=== PATIENT | female | born 1995 | race Caucasian/White ===

== ENCOUNTER 2024-05-18 14:23 | Emergency (ER) | payer MEDICAID, SELFPAY ==
[2024-05-18 14:37] VITALS: BP 118/83; PULSE 91; RESP 20; TEMP 36.3; O2SAT 100; BMI 40.3
--- NOTE | 2024-05-18 15:28 | CRLHL7_ITS ---
For Patients: As a result of the Century Cures Act, medical imaging exams and procedure reports are released immediately into your electronic medical record. You may view this report before your referring provider. If you have questions, please contact your health care provider. INDICATION: Right upper quadrant abdomen pain. TECHNIQUE: Ultrasound abdomen limited. Sonographic images of the right upper quadrant were obtained using abdullahi-scale and color Doppler images. COMPARISON: None. FINDINGS: Examination is moderately to severely limited due to extensive bowel gas. Liver: The visualized component of the liver is hyperechoic. Gallbladder: No stones or sludge. Normal wall thickness. No pericholecystic fluid. Common bile duct: 4 mm. Pancreas: Not well visualized. Right kidney: Normal in size. No hydronephrosis. IMPRESSION: No evidence of acute cholecystitis. Hyperechoic hepatic parenchyma, suggestive of diffuse hepatocellular disease, most commonly steatosis. The remainder of the right upper quadrant is relatively poorly visualized due to extensive bowel gas. Dictated by Rajat Lora MD @ 05/18/2024 5:08:15 PM (Electronically Signed)
--- NOTE | 2024-05-18 15:30 | ED.ABDPAIN ---
HPI - Abdominal Pain General Chief Complaint: Abdominal Pain Stated Complaint: vomiting, gall bladder issue Time Seen by Provider: 05/18/24 14:34 History of Present Illness HPI narrative: This 29-year-old female comes in because of abdominal pain across her abdomen and radiating around to her right flank region. She states that she is working with [facility] regarding her gallbladder but called them today stating that she has been having diarrhea with occasions of some blood in the diarrhea. She is instructed to go to the nearest emergency department. She went to [facility] and had a CT scan and labs done there. She received IV doses of Dilaudid, Benadryl, and a proton pump inhibitor. She was sent home and has plans for colonoscopy. She comes in here immediately after being discharged stating that they really did not do anything. She did bring records from her visit that shows that she did receive a rather thorough workup. She does have a history of gastric bypass. She states that she has not had an ultrasound of her gallbladder. Related Data Home Medications ?Medication ?Instructions ?Recorded ?Confirmed albuterol 90 mcg/actuation aerosol mcg inhalation 05/18/24 inhaler doxycycline monohydrate 100 mg 100 mg PO DAILY 05/18/24 05/18/24 capsule ferrous sulfate 325 mg (65 mg 325 mg PO DAILY 05/18/24 05/18/24 iron) tablet (Feosol) pantoprazole 40 mg tablet,delayed 40 mg PO DAILY 05/18/24 05/18/24 release (Protonix) potassium 99 mg tablet mg 05/18/24 tirzepatide (weight loss) 7.5 7.5 mg subcut QWEEK 05/18/24 05/18/24 mg/0.5 mL subcutaneous pen injector (Zepbound) Previous Rx's ?Medication ?Instructions ?Recorded ondansetron HCl 4 mg tablet 4 mg PO Q6H #12 tabs 05/18/24 oxycodone 5 mg capsule 5 mg PO Q6H PRN pain #12 caps 05/18/24 simethicone 125 mg capsule 125 mg PO BID-QID PRN abdominal 05/18/24 distention #20 caps Allergies Allergy/AdvReac Type Severity Reaction Status Date / Time azithromycin Allergy Unknown Verified 05/18/24 14:46 hydrocodone Allergy Unknown Verified 05/18/24 14:46 tramadol Allergy Unknown Verified 05/18/24 14:46 Review of Systems Status of ROS Reports: 10 or more systems reviewed and unremarkable except as noted in History and below Narrative Constitutional: No fevers, no weight gain or loss. Eyes: No discharge. No vision changes. HENT: No congestion, no sore throat, no ear pain. Cardiovascular: No chest pain, no palpitations. Respiratory: No shortness of breath, no wheezes, no cough. Gastrointestinal: Abdominal pain with vomiting and diarrhea. Genitourinary: No dysuria, no hematuria. Musculoskeletal: Normal range of motion. Skin: No rashes, no pruritis. Neurological: No dizziness, weakness, sensory change, speech change. Endo/Heme/Allergies: No bruising or bleeding. No polydipsia. Pysch: no suicidality, no anxiety, no insomnia. All other systems reviewed and are negative. PFSH PFS Social History Smoking Status: Current every day smoker Do you use any of these nicotine containing products: Vaping Products How often do you have a drink containing alcohol: never AUDIT-C Alcohol total score: 0 Non-prescribed substance use: denies use Exam Narrative: Exam Narrative: Constitutional: Well-developed, well-nourished, no acute distress. HEENT: Normocephalic, atraumatic. Neck: Normal range of motion. Nontender. Supple. Heart: Regular. No murmurs. Normal rate. Intact distal pulses. Lungs: Clear to auscultation. No chest discomfort. No wheezes, rhonchi, or rales. Abdomen: Normal bowel sounds. Diffuse tenderness across her abdomen with notable tenderness in the area of her gallbladder in the right upper quadrant. No rebound tenderness. Genitalia: Deferred. Back: No midline tenderness. Normal range of motion. Extremities: Normal range of motion. No injury. Skin: Intact. No rash. Warm. No erythema or pallor. Neurologic: No altered sensation. No weakness. Alert and oriented. Psychiatric: No suicidality. No anxiety or depression. No insomnia. Nursing notes and vitals signs are reviewed. Const: Vital Signs, click to edit/add: Vital Signs - 24 hr 05/18/24 14:37 05/18/24 16:58 Temperature 97.4 F L Pulse Rate [Pulse Oximeter] 91 74 Respiratory Rate 20 18 Blood Pressure [Ri ght Upper Arm] 118/83 132/89 Pulse Oximetry 100 Oxygen Delivery Me thod Room Air Course Vital Signs Vital signs: Initial Vital Signs Temperature 97.4 F L 05/18/24 14:37 Temperature Source Temporal Artery Scan 05/18/24 14:37 Pulse Rate 91 05/18/24 14:37 Respiratory Rate 20 05/18/24 14:37 Blood Pressure 118/83 05/18/24 14:37 Blood Pressure Mean 94 05/18/24 14:37 Blood Pressure Position Sitting 05/18/24 14:37 Pulse Oximetry 100 05/18/24 14:37 Oxygen Delivery Method Room Air 05/18/24 14:37 Vital Signs Temperature 97.4 F L 05/18/24 14:37 Pulse Rate 91 05/18/24 14:37 Respiratory Rate 20 05/18/24 14:37 Blood Pressure 118/83 05/18/24 14:37 Pulse Oximetry 100 05/18/24 14:37 Oxygen Delivery Method Room Air 05/18/24 14:37 Temperature 97.4 F L 05/18/24 14:37 Pulse Rate 74 05/18/24 16:58 Respiratory Rate 18 05/18/24 16:58 Blood Pressure 132/89 05/18/24 16:58 Pulse Oximetry 100 05/18/24 14:37 Oxygen Delivery Method Room Air 05/18/24 14:37 Medications Administered Medications: Discontinued Medications Generic Name Dose Route Start Last Admin Trade Name García PRN Reason Stop Dose Admin Morphine Sulfate 10 mg 05/18/24 15:28 05/18/24 16:00 Morphine 10 Mg/Ml Inj IM 05/18/24 15:29 10 mg ONCE ONE Administration MDM - Abdominal Pain MDM Narrative Medical decision making narrative: This patient reports abdominal pain as described above. She did have a rather thorough workup at [facility] just prior to arrival here. I did review those records and they returned with reassuring findings. She states that there is some suspicion about her gallbladder and she actually has not had an ultrasound of her gallbladder so this was obtained here today. Her gallbladder was difficult to visualize by the pharmacy technician infusion as there was lots of gas in her bowels. She also is significantly obese. Nevertheless the gallbladder does appear normal. The patient did receive a 1 time intramuscular injection of morphine for pain relief and this is helped her significantly. She has a history of a gastric bypass and cannot use NSAID is a. She does not normally take pain medicine and uses Tylenol if needed. She is reporting some yellow or orange colored diarrhea and there are occasions of some blood present. She had a colonoscopy when she was in her grade school years because her mother was diagnosed with colon cancer at age 33. He she states that her mother sisters of also had colon cancer at early age. This patient needs a colonoscopy of course and does have an appointment but it is scheduled about a month from now. She is interested in a sooner study if available. She is okay to be discharged home and did received prescriptions for Zofran, simethicone, and a few tablets of oxycodone. Discharge Plan Discharge Clinical Impression: Abdominal pain Patient Disposition: Home w/ Parent or Adult Condition: Improved Instructions: Abdominal Pain (ED) Additional Instructions: Take medication as prescribed and needed. Follow-up with primary physician for ongoing management of symptoms. A colonoscopy is essential to be done for further evaluation. Call [phone] for appointment. Return if worsening. Prescriptions: New simethicone 125 mg capsule 125 mg PO BID-QID PRN (Reason: abdominal distention) Qty: 20 0RF ondansetron HCl 4 mg tablet 4 mg PO Q6H Qty: 12 0RF oxycodone 5 mg capsule 5 mg PO Q6H PRN (Reason: pain) Qty: 12 0RF No Action albuterol 90 mcg/actuation aerosol inhalation doxycycline monohydrate 100 mg capsule 100 mg PO DAILY ferrous sulfate [Feosol] 325 mg (65 mg iron) tablet 325 mg PO DAILY pantoprazole [Protonix] 40 mg tablet,delayed release (DR/EC) 40 mg PO DAILY potassium 99 mg tablet Zepbound 7.5 mg/0.5 mL pen injector 7.5 mg subcut QWEEK Follow Up/Referrals: Provider,Not a Local [Primary Care Provider] - Stand Alone Forms: [employer] Info Instructions
[2024-05-18] MEDS: MORPHINE 10 MG/ML inj IM (16:00)
[2024-05-18 16:58] VITALS: BP 132/89; PULSE 74; RESP 18
== END 2024-05-18 17:00 | disposition home or self-care (01) ==
PROVIDERS: Emergency Provider Emergency Medicine Emergency Medical Services
DX: R10.11 Right upper quadrant pain (principal)
CPT/HCPCS: 76705; 96372; 99284; J2270

== ENCOUNTER 2025-05-27 15:16 | Emergency (ER) | payer BC, SELFPAY ==
[2025-05-27] VITALS (14 sets, daily range): BP systolic 126–139; BP diastolic 88–101; PULSE 104–128; RESP 16–20; TEMP 36.4; O2SAT 96–99; BMI 38.2
--- OUTSIDE RECORDS SUMMARY | 2025-05-27 15:19 | XMS_ITS | CCD ---
Author Name Interface, [id number] lity Address [address] [place] [id number] [facility] Oncology Address [facility] [address] [address] Care Team Providers Care Straightening Roll Operator Name Role Phone Forest MASON, Enzo Unavailable Unavailable Allergies and Adverse Reactions Reason for Visit Medications Problems Social History
--- OUTSIDE RECORDS SUMMARY | 2025-05-27 15:19 | XMS_ITS | Clinical Summary ---
Author Organization [facility] Address [address] [place] [address] Care Team Providers Care Golf Sales Manager Name Role Phone Elsewhere, Pcp Primary Care Provider Unavailabl e Source Comments Patient records contain information from all sites at [facility]. For routine questions regarding patient records, call [phone] during business hours, M-F 8:00 AM - 5:00 PM Central Time. Record requests for emergency care only can be directed to [phone] at any time.[facility] Allergies Active Allergy Reactions Criticality Noted Date Comments Azithromycin Rash,Hives (Reselect Reaction),Swelling Medium 01/31/2016 Nsaids (Non-Steroidal Anti-Inflammatory Drug) Other (see comments) Low 11/25/2016 Patient had bariatric surgery and should not ever have NSAIDs due to high risk for gastric ulcers. Penicillins Rash 01/13/2014 PENICILLINS Sulfa (Sulfonamide Antibiotics) Rash 01/31/2016 Not sure of reaction but was in the hospital because of it. Tramadol Rash Medium 05/07/2023 Medications albuterol (ProAir HFA) 90 mcg/actuation inhaler Inhale 2 puffs every 4 (four) hours as needed. Active brimonidine 0.33 % gel with pump Apply topically. 3 Active calcium carbonate 1,250 mg (500 mg calcium) chewable tablet Chew 500 mg 3 (three) times a day as needed for indigestion or heartburn. Active cyanocobalamin (Vitamin B-12) 1,000 mcg tablet Take 1 tablet by mouth daily. Active pantoprazole (Protonix) 40 mg EC tablet Take 1 tablet by mouth daily. 4 Active multivitamin tablet Take 1 tablet by mouth daily. Active ferrous sulfate 325 mg (65 mg iron) DR tablet Take 325 mg by mouth 3 (three) times a day. Active ivermectin (Soolantra) 1 % cream creamIndication s:Rosacea Apply 1 Application topically daily. Apply to the entire face. 45 g 5 4 Active fondaparinux (Arixtra) 10 mg/0.8 mL injection Inject 0.8 mL (10 mg total) under the skin daily. 24 mL 4 Active acetaminophen (TylenoL) 500 mg tablet Take 2 tablets (1,000 mg total) by mouth every 6 (six) hours. 4 Active folic acid (Folvite) 5 mg/mL injection Inject 0.2 mL (1 mg total) under the skin daily for 2 days. 0.4 mL 4 Active prochlorperazin e (Compazine) 5 mg tablet Take 1 tablet (5 mg total) by mouth every 6 (six) hours as needed for nausea or vomiting. 30 tablet 07/04/2024 8:10 PM CDT 4 Active folic acid 1 mg tablet Take 2 tablets (2 mg total) by mouth daily. 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 No 07/03/2024 Humiliation, Afraid, Rape, and Kick questionnair e Answer Date Recorded Within the last year, have y ou been afraid of your partner or ex-partner? No 07/03/2024 Within the last year, have y ou been humiliated or emotionally abused in other ways by your partner or ex-partner? No Within the last year, have y ou been kicked, hit, slapped, or otherwise physically hurt by your partner or ex-partner? No 07/03/2024 Within the last year, have y ou been raped or forced to have any kind of sexual activity by your partner or ex-partner? No 07/03/2024 Hunger Vital Sign Answer Date Recorded Within the past 12 months, y ou worried that your food would run out before you got the money to buy more. Never true 07/03/20 24 Within the past 12 months, t he food you bought just didn't last and you didn't have money to get more. Never true 07/03/2024 PRAPARE - Transportation Answer Date Re corded In the past 12 months, has l ack of transportation kept you from medical appointments or from getting medications? No 06/18 In the past 12 months, has l ack of transportation kept you from meetings, work, or from getting things needed for daily living? No 07/03/2024 Housing Stability Answer Date Recorded What is your living situation today? 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 CLERK Gender Identity Not on file Sexual Orientation Not on file Last Filed Vital Signs Vital Sign Reading Time Taken Comments Blood Pressure 134/86 10/12/2024 1:[address] OPERATIONS CLERK Pulse 80 10/12/2024 1:[address] OPERATIONS CLERK Temperature 36.9 C (98.4 F) 07/04/2024 3:46 PM CDT Respiratory Rate 16 07/04/2024 3:46 PM CDT Oxygen Saturation 98% 07/04/2024 3:46 PM CDT Inhaled Oxygen Concentration - - Weight 122 kg (268 lb 1.3 oz) 10/12/2024 1:[address] OPERATIONS CLERK Height 176.1 cm (5' 9.33) 10/12/2024 1:26 PM CS T Body Mass Index 39.21 10/12/2024 1:[address] OPERATIONS CLERK Plan of Treatment Health Maintenance Due Date Last Done Comments HIV Screening 1994 Hepatitis C Screening 1994 Tobacco Cessation counseling 1994 Hepatitis B Vaccines (3 of 3 - 3-dose series) 12/09/2006 10/14/2006, 06/09/2006 HPV Vaccines (3 - 3-dose series) 12/09/2012 08/31/2012, 06/08/2012 Cervical/Vaginal Cancer Screening 12/20/2023 12/19/2020, 08/08/2010 COVID-19 Vaccine ( season) 2024 12/26/2021, 06/26/2021, 05/27/2021 Depression Screening (Annual PHQ-2) 10/18/2024 Influenza Vaccine (#1) 2025 07/20/2019, 2018 DTaP,Tdap,and Td Vaccines (6 - Td or Tdap) 05/14/2031 05/14/2021, 05/25/2019, 09/28/2016, Additional history exists IPV Vaccines Completed 02/26/1999, 02/15, 11/12/1995, Additional history exists Pneumococcal vaccine (0-49 years) Aged Out No longer eligible based on patient's age to complete this topic Insurance [facility] Advance Directives For more information, please contact: [phone] * Full Code (Latest Code Status on File) Date Activated Date Inactivated Comments 07/01/2024 2:27 AM 07/04/2024 10:47 PM Question Answer Comments Full Code: Discussed Care Teams Golf Sales Manager Relationship Specialty Start Date End Date Elsewhere, Pcp PCP - General Internal Medicine 04/12/24
--- OUTSIDE RECORDS SUMMARY | 2025-05-27 15:19 | XMS_ITS | Clinical Summary ---
Author Organization [facility] Address [address] [facility] [place] [address] Care Team Providers Care Algebra Teacher Name Role Phone Mariluz Diamond MD Primary Care Provider Unavailab le Source Comments You are receiving this document as you are listed as the primary care provider,follow-up provider, or the patient has been referred to you for consultation.This is in compliance with the Medicare and[facility] EHR Incentive Program,which states Providers who transition their patient to another setting of careor provider of care or refers their patient to another provider of care shouldprovide summary care record for each transition of care or referral. [facility] Allergies Active Allergy Reactions Criticality Noted Date Comments Azithromycin Rash 01/05/2019 Hydromorphone Anxiety 10/19/2016 Nsaids Other, see comments 11/25/2016 Patient had bariatric surgery and should not ever have NSAIDs due to high risk for gastric ulcers. Medications Docosahexaenoic Acid ( DHA OR) Active calcium carbonate (TUMS) 500 MG chewable tablet Chew and swallow 500 mg by mouth daily. Active cyanocobalamin (VITAMIN B12) 1000 MCG tablet Take 1,200 mcg by mouth daily. Active potassium phosphate monobasic (K-PHOSORIGINAL) 500 MG tablet Take 800 mg by mouth daily. Active docusate sodium (COLACE) 100 MG capsuleIndication s:Constipation, unspecified constipation type Take 1 Capsule by mouth two times a day. 30 Capsule 1 1 Active amoxicillin-clavu lanate (AUGMENTIN) 875-125 mg per tabletIndications :Fever, unspecified fever cause,Headache, unspecified headache type,Fatigue, unspecified type Take 1 Tablet by mouth two times a day. 20 Tablet 1 Active sennosides-docusa te sodium (SENOKOT S) 8.6-50 MG per tabletIndications :Drug-induced constipation Take 1 Tablet by mouth two times daily as needed for Constipation . 50 Tablet 1 1 Active acetaminophen (TYLENOL) 325 MG tablet Take 650 mg by mouth. Active sertraline (ZOLOFT) 50 MG tabletIndications :Maternal mental disorder, antepartum Take 1 Tablet by mouth daily. 30 Tablet 3 1 Active Active Problems Problem Noted Date Diagnosed Date Intermittent fever 04/03/2021 Grief 04/03/2021 Constipation 04/03/2021 Dizzy spells 02/11/2021 Supervision of high risk , antepartum 0 01/15/2021 Previous gastric bypass affe cting in first trimester, antepartum 12/19/2020 Obesity complicating pregnan cy, childbirth, or puerperium, antepartum 12/19/2020 Class 1 obesity due to exces s calories with body mass index (BMI) of 34.0 to 34.9 in adult 12/19/2020 Maternal mental disorder, antepartum 12/19/2020 History of iron deficiency anemia 12/19/2020 Electronic cigarette use 12/19/2020 Need for hepatitis B vaccination 12/12/2018 Cervical cancer screening 11/14/2018 Overview (12/27/2020): 11/14/2018 LSIL. Plan: Pap due 10/2019 [facility] review: 05/2016: NILM 10/2018: LSIL (age 23) 12/2020: NILM Plan per ASCCP guidelines: repeat cytology in 12 months (12/2021) Abnormal Pap smear of cervix 10/18/2018 Overview (12/19/2020): [facility] H/O gastric bypass Obesity (BMI 30-39.9) Gastric reflux Headache Restless leg Metabolic syndrome Sleep apnea Overview (12/19/2020): 2015 Resolved Problems Problem Noted Date Diagnosed Date Resolved Date Careplan: [facility] 04/07/2021 08/05/2021 Overview (04/07/2021): This patient is enrolled in the Healthy Beginnings Program. The program provides patients with support, education, referrals and resources during their . Reason for enrollment: Psychosocial support and mental health resources as needed For more information, please contact Iwona Cordero, Healthy Beginnings Specialist, at [phone]. 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 Overview (12/01/2018): January 2009 with abdominal pain Immunizations Immunization Administration Dates Next Due 4vHPV (Gardasil) 08/31/2012,06/08/2012 DTP 02/26/1999 HepB Ped/Adol (0-18 yrs) 10/14/2006,06/09/2006 Influenza IIV4 (Quadrivalent ) 0.5mL ([id number]) 07/20/2019,12/01/2018 Influenza, Unspecified Formulation 07/20/2019 MMR 02/26/1999,11/12/1995 OPV, Trivalent (Orimune or tOPV) 02/26/1999 Pfizer Monovalent 12+ 12/26/2021 Pfizer Monovalent 12+ Purple Top 06/26/2021,05/18 Polio, Unspecified Formulation 9,11/12/1995,1994,1993 Td 06/09/2006 Tdap 05/14/2021,09/28/2016,06/09/2006 Varicella 06/09/2006 Family History Medical History Relation Name Comments No Known Problems Father No Known Problems Mother Cancer, Colon Maternal Grandmother Arrhythmia Paternal Grandfather Diabetes, Type II Paternal Grandmother No Known Problems Sister 1 No Known Problems Sister 2 Relation Name Status Comments Father Alive Mother Alive Maternal Grandfather Alive Maternal Grandmother Paternal Grandfather Paternal Grandmother Alive Sister 1 Alive Sister 2 Alive Social History Tobacco Use Types Packs/Day Years Used Date Smoking Tobacco: Former Cigarettes Smokeless Tobacco: Never Tobacco Cessation:Ready to Q uit: Yes; Counseling Given: Yes Alcohol Use Standard Drinks/Week Comments Not Currently 0 (1 standard drink = 0.6 oz pur e alcohol) PHQ-2 Answer Date Recorded PHQ-2 Score 0 02/11/2019 Depression Answer Date Recor ded Last EPDS Total Score 8 11/25/2024 Last EPDS Self Harm Result Not on file 11/25 Comments No Sex and Gender Information Value Date Recorded Sex Assigned at Not on file Legal Sex Female 5:07 AM CDT Gender Identity Not on file Sexual Orientation Not on file 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 Not on file Not on file Not on f ile Last Filed Vital Signs Vital Sign Reading Time Taken Comments Blood Pressure 100/60 07/08/2021 8:59 AM CDT Pulse 106 07/01/2021 2:09 PM CDT Temperature 36.8 C (98.2 F) 04/04/2021 8:11 AM CDT Respiratory Rate 16 04/04/2021 8:11 AM CDT Oxygen Saturation 100% 04/03/2021 1:13 PM CDT Inhaled Oxygen Concentration - - Weight 110.2 kg (243 lb) 07/01/2021 2:09 PM CDT Height 175.3 cm (5' 9) 04/04/2021 8:11 AM CDT Body Mass Index 35.88 04/04/2021 8:11 AM CDT Plan of Treatment Health Maintenance Due Date Last Done Comments HepB Vaccine (3) 12/09/2006 10/14/2006, 06/09/2006 Adult Preventive Visit 2012 HPV Vaccine (3 - 3-dose series) 12/09/2012 08/31/2012, 06/08/2012 Cervical Cancer Screening 12/19/20212020, 11/14/2018 (Completed) COVID-19 Vaccine ( season) 2024 12/26/2021, 06/26/2021, 05/27/2021 Influenza Vaccine (#1) 2025 9, 07/20/2019, 12/01/2018 DTaP/Tdap/Td Vaccine (5 - Tdap) 05/14/2031 05/14/2021, 09/28/2016, 06/09/2006, Additional history exists Zoster/Shingles Vaccine (1 of 2) 2044 IPV (Polio) Vaccine Completed 02/26/1999, 02/26/1999, 11/12/1995, Additional history exists HIV Screening (Preventive Services) Completed 12/19/2020, 12/01/2018 Hep C Screening (Preventive Services) Completed 05/22/2021 HepA Vaccine Aged Out No longer eligi ble based on patient's age to complete this topic Hib Vaccine Aged Out No longer eligi ble based on patient's age to complete this topic MCV4 Vaccine Aged Out No longer eligi ble based on patient's age to complete this topic Meningococcal B Vaccine Aged Out No l onger eligible based on patient's age to complete this topic Pneumococcal Vaccine Aged Out No long er eligible based on patient's age to complete this topic Procedures Procedure Name Priority Date/Time Associated Diagnosis Comments HEPATITIS C ANTIBODY, WITH REFLEX (ANTI-HCV) Routine 05/22/2021 2:15 PM CDT Supervision of high risk , antepartum HIV 1/2 AG/AB 4TH GEN Routine 12/19/2020 9:24 AM PRECISION FILER HAND Screening examination for venereal disease CYTOLOGY (PAP) Routine 12/19/2020 9:23 AM PRECISION FILER HAND Screening for malignant neoplasm of cervix from Last 3 Months or Most Recently Relevant to Health Maintenance Results * Hepatitis C Antibody, with Reflex (05/22/2021 2:15 PM CDT) Hepatitis C Antibody Negative (Non Reactive) Negative (Non Reactive) 05/22/2021 7:29 PM CDT [facility] Comment:Antibodies to HCV no t detected. Does not exclude the possiblity of exposure to HCV. Blood Venipuncture / Unknown 05/22/2021 2:15 PM CDT 05/22/2021 2:15 PM CDT us Olivia Galvan MD LAB_1 Final Result [facility] [address] * HIV 1/2 Ag/Ab 4th Generation (12/19/2020 9:24 AM PRECISION FILER HAND) HIV 1/2 Antigen/Antib chad (4th generation) Negative (Non Reactive) Negative (Non Reactive) 12/19/2020 1:00 PM PRECISION FILER HAND [facility] Comment:HIV-1 p24 Antigen an d HIV-1/HIV-2 Antibody not detected Blood Venipuncture / Unknown 12/19/2020 9:24 AM PRECISION FILER HAND 12/19/2020 9:24 AM PRECISION FILER HAND us Xochitl Beard APRN, HALLIE LAB_1 Final R esult [facility] [address] * PAP Test (12/19/2020 9:23 AM PRECISION FILER HAND) Case Report Pap Case: [id number] Authorizing Provider: Xochitl Beard APRN, CNP Collected: 12/19/2020 0923 Ordering Location: [facility] Received: 12/19/2020 0939 Services-CASE MONITOR First Screen: Mariluz Loza CT (ASCP) Specimen: Pap Test, Diagnostic, Cervix/Endocervix 12/23/2020 4:03 PM PRECISION FILER HAND [facility] Pap Specimen Adequacy Satisfactory for evaluation, endocervical/simental sformation zone component present. 12/23/2020 4:03 PM PRECISION FILER HAND [facility] Pap Interpretation Negative for intraepithelial lesion or malignancy (NILM). 12/23/2020 4:03 PM PRECISION FILER HAND [facility] at [address]3 PRECISION FILER HAND Pap Disclaimer The Pap test is a screening test designed to aid in the detection of cervical cancer and its precursor lesions. It is not a diagnostic procedure and should not be used as the sole means of detecting cervical cancer. Both false-positive and false-negative results may occur. 12/23/2020 4:03 PM PRECISION FILER HAND [facility] Gross Description The specimen is received in SurePath fixative and properly labeled. 1 Pap-stained SurePath slide is prepared. 12/23/2020 4:03 PM PRECISION FILER HAND [facility] Embedded Images 4:03 PM PRECISION FILER HAND [facility] Other Specimen Type ENTIRE ENDOCERVIX / Unknown 12/19/2020 9:23 AM PRECISION FILER HAND 12/19/2020 9:39 AM PRECISION FILER HAND Comment:LMP: Patient's last menstrual period was 10/23/2020 (exact date). Xochitl Beard APRN, STEWARD/ST[facility]ARD[facility] PATHOLOGY Final R esult [facility] [address] [place] [address], [facility] from Last 3 Months or Most Recently Relevant to Health Maintenance Insurance [facility] Care Teams Algebra Teacher Relationship Specialty Start Date End Date Mariluz Diamond MD PCP - General Family Practice 11/25/18
--- OUTSIDE RECORDS SUMMARY | 2025-05-27 15:19 | XMS_ITS | Encounter Summary ---
Author Organization [facility] Address [address] [place] [address] Care Team Providers Care Writer Producer Name Role Phone Sarah Juares MD Primary Care Provider [phone] Purvi Jeong [facility] Unavailable [phone] Lucas Nuno MD Unavailable [phone] Meghan Cox [facility] Unavailable [phone] Encounter Details Date Type Department Care Team (Late st Contact Info) Description 03/19/2025 MyC Medical Advice [facility] [place] [address] [facility] [address]th [place] [address] Lucas Nuno MD [address] [facility] [address] [place] [address] Social History Tobacco Use Types Packs/Day Years Used Date Smoking Tobacco: Former Smokeless Tobacco: Never Alcohol Use Standard Drinks/Week Comments Not Currently 0 (1 standard drink = 0.6 oz pur e alcohol) rare PHQ-2 Answer Date Recorded PHQ-2 Score 0 02/22/2025 Quinn Depression Scale Answer Date Recorded Quinn Depression Score 1 07/06/2021 Last EPDS Self Harm Result Not on file 07/06 Adolescent Education Answer Date Record ed Getting School Help Needed Not on file 07/10 Food Insecurity Answer Date Recorded Within the past 12 months, d id you worry that your food would run out before you got money to buy more? No 03/21/2025 Within the past 12 months, d id the food you bought just not last and you didn t have money to get more? No 03/21/2025 Housing Stability Answer Date Recorded Do you have housing? (Mariano monahan is defined as stable permanent housing and does not include staying outside in a car, in a tent, in an abandoned building, in an overnight usp, or couch-surfing.) Yes 03/21/2025 Are you worried about losing your housing? No 03/21/2025 Financial Resource Strain Answer Date R ecorded Within the past 12 months, h ave you or your family members you live with been unable to get utilities (heat, electricity) when it was really needed? No 03/21/2025 Transportation Needs Answer Date Record ed Within the past 12 months, h as lack of transportation kept you from medical appointments, getting your medicines, non-medical meetings or appointments, work, or from getting things that you need? No 03/21/2025 Interpersonal Safety Answer Date Record ed Do you feel physically and e motionally safe where you currently live? Yes 03/22/2025 Within the past 12 months, h ave you been hit, slapped, kicked or otherwise physically hurt by someone? No 03/22/2025 Within the past 12 months, h ave you been humiliated or emotionally abused in other ways by your partner or ex-partner? 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 Gender Identity Female 06/03/2022 7:36 AM CDT Sexual Orientation Straight 06/03/2022 7: 36 AM CDT documented as of this encounter Plan of Treatment Not on file documented as of this encounter Visit Diagnoses Not on filedocumented in this encounter Care Teams Writer Producer Relationship Specialty [place] [address] [place] [address] PCP - General Family Medicine 03/13/25 Purvi Jeong RPH [address] [place] [address] [phone] Pharmacist Pharmacist Holistic Health Practitioner 01/03/25 Lucas Nuno MD [address] [place] [address] [phone] Assigned Surgical Provider 02/07/25 Meghan Cox RPH [address] [place] [address] [phone] Pharmacist Pharmacist Holistic Health Practitioner 03/20/25 documented as of this encounter
--- OUTSIDE RECORDS SUMMARY | 2025-05-27 15:19 | XMS_ITS | Encounter Summary ---
Author Organization [facility] Address [address] [facility] [place] [address] Care Team Providers Care Coffee Break Attendant Name Role Phone Sarah Juares MD Primary Care Provider [phone] Purvi Jeong [facility] Unavailable [phone] Lucas Nuno MD Unavailable [phone] Meghan Cox [facility] Unavailable [phone] Encounter Details Date Type Department Care Team (Late st Contact Info) Description 03/14/2025 MyC Medical Advice [facility] General Surgery [facility] [place] [address] [facility] [address]th [place] [address] Lucas Nuno MD [address] [facility] [address] [place] [address] Social History Tobacco Use Types Packs/Day Years Used Date Smoking Tobacco: Former Smokeless Tobacco: Never Alcohol Use Standard Drinks/Week Comments Not Currently 0 (1 standard drink = 0.6 oz pur e alcohol) rare PHQ-2 Answer Date Recorded PHQ-2 Score 0 02/22/2025 Purdin Depression Scale Answer Date Recorded Purdin Depression Score 1 07/06/2021 Last EPDS Self Harm Result Not on file 07/06 Adolescent Education Answer Date Record ed Getting School Help Needed Not on file 07/10 Interpersonal Safety Answer Date Record ed Do you feel physically and e motionally safe where you currently live? Yes 03/13/2025 Within the past 12 months, h ave you been hit, slapped, kicked or otherwise physically hurt by someone? No 03/13/2025 Within the past 12 months, h ave you been humiliated or emotionally abused in other ways by your partner or ex-partner? 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 Gender Identity Female 06/03/2022 7:36 AM CDT Sexual Orientation Straight 06/03/2022 7: 36 AM CDT documented as of this encounter Plan of Treatment Not on file documented as of this encounter Visit Diagnoses Not on filedocumented in this encounter Care Teams Coffee Break Attendant Relationship Specialty [place] [address] [place] [address] PCP - General Family Medicine 03/13/25 Purvi Jeong [facility] [address] [place] [address] [phone] Pharmacist Pharmacist Retail Worker 01/03/25 Lucas Nuno MD [address] [place] [address] [phone] Assigned Surgical Provider 02/07/25 Meghan Cox [facility] [address] [place] [address] [phone] Pharmacist Pharmacist Retail Worker 03/20/25 documented as of this encounter
--- OUTSIDE RECORDS SUMMARY | 2025-05-27 15:19 | XMS_ITS | Patient Health Record ---
Author Organization [facility] Address [address] [place] [address] Care Team Providers Care Head Sawyer Name Role Phone None, None Primary Care Provider PAUL Carvajal [phone] Reason For Referral No Information Medications Medication SIG (Take, Route, Fr equency, Duration) Notes Start Date End Date Status Albuterol Sulfate HFA Active Social History Tobacco Use: Social History Observation Description Date Details (start date - stop date) Never Smoker NA - NA Social History Tobacco Use: Social Info Question Answer Notes Tobacco use/smoking Are you a nonsmoker Plan Of Treatment No Information Insurance Providers Payer Name Payer Address Payer Phone Subscriber Number Group Number Insured Name Patient Relationship to Insured Coverage Start Date Coverage End Date BLUE CROSS OUT [facility] [address] [address] [place], [place] [id number] Karo Gallegos Self - patient is the insured Medical (General) History Surgical History Surgery Date(Month/Year) Gastric sleeve 10/13/2016
--- OUTSIDE RECORDS SUMMARY | 2025-05-27 15:20 | XMS_ITS | Encounter Summary ---
Author Organization [facility] Address [address] [facility] [place] [address] Care Team Providers Care Front End Developer Designer Name Role Phone Sarah Juares MD Primary Care Provider [phone] Purvi Jeong [facility] Unavailable [phone] Lucas Nuno MD Unavailable [phone] Meghan Cox [facility] Unavailable [phone] Encounter Details Date Type Department Care Team (Late st Contact Info) Description 02/22/[address] [facility] [address] [address] Nahed Fay Social History Tobacco Use Types Packs/Day Years Used Date Smoking Tobacco: Former Smokeless Tobacco: Never Alcohol Use Standard Drinks/Week Comments Not Currently 0 (1 standard drink = 0.6 oz pur e alcohol) rare PHQ-2 Answer Date Recorded PHQ-2 Score 0 02/22/2025 Archie Depression Scale Answer Date Recorded Archie Depression Score 1 07/06/2021 Last EPDS Self Harm Result Not on file 07/06 Adolescent Education Answer Date Record ed Getting School Help Needed Not on file 07/10 Interpersonal Safety Answer Date Record ed Do you feel physically and e motionally safe where you currently live? Patient unable to answer 01/24/2025 Within the past 12 months, h ave you been hit, slapped, kicked or otherwise physically hurt by someone? Patient unable to answer 01/24/2025 Within the past 12 months, h ave you been humiliated or emotionally abused in other ways by your partner or ex-partner? Patient unable to answer 01/24/2025 Comments No Sex and Gender Information Value Date Recorded Sex Assigned at Female 06/03/2022 7:36 AM CDT 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 TRANSFER PUMPER Gender Identity Female 06/03/2022 7:36 AM CDT Sexual Orientation Straight 06/03/2022 7 :36 AM CDT documented as of this encounter Plan of Treatment Not on file documented as of this encounter Visit Diagnoses Not on filedocumented in this encounter Care Teams Front End Developer Designer Relationship Specialty [place] [address] [place] [address] PCP - General Family Medicine 03/13/25 Purvi Jeong [facility] [address] [place] [address] [phone] Pharmacist Pharmacist Pastrycook 01/03/25 Lucas Nuno MD [address] [place] [address] [phone] Assigned Surgical Provider 02/07/25 Meghan Cox [place] [address] [place] [address] [phone] Pharmacist Pharmacist Pastrycook 03/20/25 documented as of this encounter
--- OUTSIDE RECORDS SUMMARY | 2025-05-27 15:20 | XMS_ITS | Encounter Summary ---
Author Organization [place] Address [facility] [place] [address] Care Team Providers Care Housekeeper Caregiver Name Role Phone Clinic, [facility] Primary Care Provider Leatha Wagner APRN BARREL PAINTER Unavailable +[phone] Mariana AcostaC Unavailable +[phone] Sarah Juares MD Primary Care Provider [phone] Lucas Nuno MD Unavailable +-[phone] Mariana Acosta PA-C Unavailable +[phone] Luacs Nuno MD Unavailable +-[phone] 16 Mariana Acosta PA-C Unavailable +[phone] uPrvi Jeong [facility] Unavailable [phone] Lucas Nuno MD Unavailable +[phone] Meghan Cox [facility] Unavailable [phone] Encounter Details Date Type Department Care Team (Late st Contact Info) Description 10/23/2021 [facility] [address] 4th [place] [address] Leatha Wagner APRN BARREL PAINTER [address] [place] [address] Epigastric pain (Primary Dx); Gastroesophageal reflux disease with esophagitis, unspecified whether hemorrhage; RUQ abdominal pain Social History Tobacco Use Types Packs/Day Years Used Date Smoking Tobacco: Former Smokeless Tobacco: Never Alcohol Use Standard Drinks/Week Comments Not Currently 0 (1 standard drink = 0.6 oz pur e alcohol) [place] Depression Scale Answer Date Recorded [place] Depression Score 1 07/06/2021 Last EPDS Self Harm Result Not on file 07/06 Comments No Sex and Gender Information Value Date Recorded Sex Assigned at Female 06/03/2022 7:36 AM CDT 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 ADMINISTRATIVE ASSOCIATE Gender Identity Female 06/03/2022 7:36 AM CDT Sexual Orientation Straight 06/03/2022 7: 36 AM CDT documented as of this encounter Plan of Treatment Not on file documented as of this encounter Visit Diagnoses Diagnosis Epigastric pain- Primary Abdominal pain, epigastric Gastroesophageal reflux disease with esophagitis, unspecified whether hemorrhage RUQ abdominal pain Abdominal pain, right upper quadrant documented in this encounter Additional Health Concerns Infection Onset Date Last Indicated Resolved Time Rule Out COVID-19 04/19/2023 04/19/2023 04/19/2023 5:29 AM CDT documented as of this encounter Care Teams Housekeeper Caregiver Relationship Specialty Start Date End Date [facility], [facility] [address] [facility] [place] [address] PCP - General 01/02/14 03/23/23 [place] [address] [place] [address] PCP - General Family Medicine 03/13/25 Leatha Wagner APRN BARREL PAINTER [address] [place] [address] Assigned Surgical Provider 11/02/21 09/04/22 Mariana Acosta PA-C [address] [address] Assigned Surgical Provider 09/05/22 12/09/23 Lucas Nuno MD [address] [address] Assigned Surgical Provider 12/10/23 01/07/24 Mariana Acosta PA-C [address] [address] Assigned Surgical Provider 01/08/24 03/08/24 Lucas Nuno MD [facility] [address] [address] Assigned Surgical Provider 03/09/24 12/09/24 Mariana Acosta PA-C [address] [address] Assigned Surgical Provider 12/10/24 02/06/25 Purvi Jeong [facility] [address] [place] [address] Pharmacist Pharmacist Boiler Inspector 01/03/25 Lucas Nuno MD [address] [address] Assigned Surgical Provider 02/07/25 Meghan Cox [facility] [address] [place] [address] Pharmacist Pharmacist Boiler Inspector 03/20/25 documented as of this encounter
--- OUTSIDE RECORDS SUMMARY | 2025-05-27 15:20 | XMS_ITS ---
Author Name Interface, [email or web address] lity Address [address] [place] [address] [address] [place] [address] [facility] Address [facility] [address] [place] [address] Allergies and Adverse Reactions Plan Reason for Visit Encounters Immunizations Diagnostic Results Medications Problems Vital Signs Notes Section
--- OUTSIDE RECORDS SUMMARY | 2025-05-27 15:20 | XMS_ITS | Encounter Summary ---
Author Organization [place] Address [address] [facility] [place] [address] Care Team Providers Care Railroad Repairer Name Role Phone Sarah Juares MD Primary Care Provider [phone] Lucas Nuno MD Unavailable +[phone] Mariana Acosta PA-C Unavailable + [phone] Purvi Jeong [facility] Unavailable [phone] Lucas Nuno MD Unavailable +[phone] Meghan Cox [facility] Unavailable [phone] Encounter Details Date Type Department Care Team (Late st Contact Info) Description 11/15/2024 MyC Medical Advice [facility] [address] 4th [place] [address] Mariana Acosta PA-C [address] [facility] [address] [place] [address] Social History Tobacco Use Types Packs/Day Years Used Date Smoking Tobacco: Former Smokeless Tobacco: Never Alcohol Use Standard Drinks/Week Comments Not Currently 0 (1 standard drink = 0.6 oz pur e alcohol) rare PHQ-2 Answer Date Recorded PHQ-2 Score 0 11/15/2024 [place] Depression Scale Answer Date Recorded [place] Depression Score 1 07/06/2021 Last EPDS Self Harm Result Not on file 07/06 Adolescent Education Answer Date Record ed Getting School Help Needed Not on file 07/10 Comments No Sex and Gender Information Value Date Recorded Sex Assigned at Female 06/03/2022 7:36 AM CDT 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 SHIFTMAN Gender Identity Female 06/03/2022 7:36 AM CDT Sexual Orientation Straight 06/03/2022 7: 36 AM CDT documented as of this encounter Plan of Treatment Not on file documented as of this encounter Visit Diagnoses Not on filedocumented in this encounter Care Teams Railroad Repairer Relationship Specialty [place] [address] [facility] [place] [address] PCP - General Family Medicine 03/13/25 Lucas Nuno MD [address] [place] [address] Assigned Surgical Provider 03/09/24 12/09/24 Mariana Acosta PA-C [address] [place] [address] [phone] Assigned Surgical Provider 12/10/24 02/06/25 Purvi Jeong [facility] [address] [place] [address] Pharmacist Pharmacist Strategic Buyer 01/03/25 Lucas Nuno MD [address] [place] [address] Assigned Surgical Provider 02/07/25 Meghan Cox [facility] [address] [place] [address] [phone] Pharmacist Pharmacist Strategic Buyer 03/20/25 documented as of this encounter
--- OUTSIDE RECORDS SUMMARY | 2025-05-27 15:20 | XMS_ITS | Encounter Summary ---
Author Organization [place] Address [facility] [place] [address] Care Team Providers Care Furnace Mechanic Name Role Phone [facility], [facility] Primary Care Provider Leatha Wagner APRN [facility] Unavailable [phone] Mariana Acosta-C Unavailable + [phone] Sarah Juares MD Primary Care Provider [phone] Lucas Nuno MD Unavailable +- [phone] Mariana AcostaC Unavailable +[phone] Lucas Nuno MD Unavailable +- 54 Mariana AcostaC Unavailable +[phone] Purvi Jeong [facility] Unavailable [phone] Lucas Nuno MD Unavailable +- [phone] Meghan Cox [facility] Unavailable [phone] Encounter Details Date Type Department Care Team (Late st Contact Info) Description 12/10/2021 [facility] [address] 4th [place] [address] [place], Paulina, RN Social History Tobacco Use Types Packs/Day Years Used Date Smoking Tobacco: Former Smokeless Tobacco: Never Alcohol Use Standard Drinks/Week Comments Not Currently 0 (1 standard drink = 0.6 oz pur e alcohol) [place] Depression Scale Answer Date Recorded [place] Depression Score 1 07/06/2021 Last EPDS Self Harm Result Not on file 07/06 Comments No Sex and Gender Information Value Date Recorded Sex Assigned at Female 06/03/2022 7:36 AM CDT 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 CATTYMAN Gender Identity Female 06/03/2022 7:36 AM CDT Sexual Orientation Straight 06/03/2022 7: 36 AM CDT documented as of this encounter Plan of Treatment Not on file documented as of this encounter Visit Diagnoses Not on filedocumented in this encounter Additional Health Concerns Infection Onset Date Last Indicated Resolved Time Rule Out COVID-19 04/19/2023 04/19/2023 04/19/2023 5:29 AM CDT documented as of this encounter Care Teams Furnace Mechanic Relationship Specialty Start Date End Date [facility], [facility] [address] [facility] [place] [address] PCP - General 01/02/14 03/23/23 [place] [address] [facility] [place] [address] PCP - General Family Medicine 03/13/25 Leatha Wagner APRN MERCHANDISE ADJUSTMENT CLERK [address] [place] [address] Assigned Surgical Provider 11/02/21 09/04/22 Mariana Acosta PA-C [address] [place] [address] Assigned Surgical Provider 09/05/22 12/09/23 Lucas Nuno MD [address] [address] Assigned Surgical Provider 12/10/23 01/07/24 Mariana Acosta PA-C [address] [address] Assigned Surgical Provider 01/08/24 03/08/24 Lucas Nuno MD [address] [address] Assigned Surgical Provider 03/09/24 12/09/24 Mariana Acosta PA-C [address] [address] Assigned Surgical Provider 12/10/24 02/06/25 Purvi Jeong [facility] [address] [place] [address] [phone] Pharmacist Pharmacist Full Time Staff Interpreter 01/03/25 Lucas Nuno MD [address] [place] [address] Assigned Surgical Provider 02/07/25 Meghan Cox [facility] [address] [place] [address] Pharmacist Pharmacist Full Time Staff Interpreter 03/20/25 documented as of this encounter
--- OUTSIDE RECORDS SUMMARY | 2025-05-27 15:20 | XMS_ITS | Encounter Summary ---
Author Organization [place] Address [facility] [place] [address] Care Team Providers Care Creel Hand Name Role Phone [facility] [place] Primary Care Provider Mariana Acosta PA-C Unavailable + [phone] Sarah Juares MD Primary Care Provider [phone] Lucas uNno MD Unavailable +- [phone] Mariana Acosta PA-C Unavailable +[phone] Lucas Nuno MD Unavailable +[phone] Mariana Acosta PA-C Unavailable +[phone] Purvi Jeong [facility] Unavailable [phone] Lucas Nuno MD Unavailable +[phone] Meghan Cox [facility] Unavailable [phone] Encounter Details Date Type Department Care Team (Late st Contact Info) Description 02/09/2023 [facility] [address] 4th [place] [address] Paulina Denny RN Social History Tobacco Use Types Packs/Day Years Used Date Smoking Tobacco: Former Smokeless Tobacco: Never Alcohol Use Standard Drinks/Week Comments Not Currently 0 (1 standard drink = 0.6 oz pur e alcohol) rare [place] Depression Scale Answer Date Recorded [place] Depression Score 1 07/06/2021 Last EPDS Self Harm Result Not on file 07/06 Comments No Sex and Gender Information Value Date Recorded Sex Assigned at Female 06/03/2022 7:36 AM CDT 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 MACHINIST TOOL AND DIE Gender Identity Female 06/03/2022 7:36 AM CDT [...] documented as of this encounter Care Teams Creel Hand Relationship Specialty Start Date End Date [facility], [facility] [address] [place] [address] PCP - General 01/02/14 03/23/23 [place] [address] [place] [address] PCP - General Family Medicine 03/13/25 Mariana Acosta PA-C [address] [place] [address] [phone] Assigned Surgical Provider 09/05/22 12/09/23 Lucas Nuno MD [address] [address] Assigned Surgical Provider 12/10/23 01/07/24 Mariana Acosta PA-C [address] [place] [address] [phone] Assigned Surgical Provider 01/08/24 03/08/24 Lucas Nuno MD [address] [place] [address] Assigned Surgical Provider 03/09/24 12/09/24 Mariana Acosta PA-C [address] [place] [address] Assigned Surgical Provider 12/10/24 02/06/25 Purvi Jeong [facility] [address] [place] [address] Pharmacist Pharmacist Environmental Research Scientist 01/03/25 Lucas Nuno MD [address] [place] [address] Assigned Surgical Provider 02/07/25 Meghan Cox [facility] [address] [place] [address] Pharmacist Pharmacist Environmental Research Scientist 03/20/25 documented as of this encounter
--- OUTSIDE RECORDS SUMMARY | 2025-05-27 15:20 | XMS_ITS | Encounter Summary ---
Author Organization [place] Address [address] [facility] [place] [address] Care Team Providers Care Dairy Cattle Farm Worker Name Role Phone Sarah Juares MD Primary Care Provider [phone] Lucas Nuno MD Unavailable +[phone] Mraiana Acosta PA-C Unavailable + [phone] Purvi Jeong [facility] Unavailable [phone] Lucas Nuno MD Unavailable +[phone] Meghan Cox [facility] Unavailable [phone] Encounter Details Date Type Department Care Team (Late st Contact Info) Description 04/13/2024 MyC Medical Advice [facility] Weight Management Clinic [address] 4th [place] [address] Giuliana Masterson Social History Tobacco Use Types Packs/Day Years Used Date Smoking Tobacco: Former Smokeless Tobacco: Never Alcohol Use Standard Drinks/Week Comments Not Currently 0 (1 standard drink = 0.6 oz pur e alcohol) rare PHQ-2 Answer Date Recorded PHQ-2 Score 0 05/12/2023 [place] Depression Scale Answer Date Recorded [place] Depression Score 1 07/06/2021 Last EPDS Self Harm Result Not on file 07/06 Adolescent Education Answer Date Record ed Getting School Help Needed Not on file 07/10 Comments No Sex and Gender Information Value Date Recorded Sex Assigned at Female 06/03/2022 7:36 AM CDT 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 LINEN CONTROLLER Gender Identity Female 06/03/2022 7:36 AM CDT Sexual Orientation Straight 06/03/2022 7: 36 AM CDT documented as of this encounter Plan of Treatment Not on file documented as of this encounter Visit Diagnoses Not on filedocumented in this encounter Care Teams Dairy Cattle Farm Worker Relationship Specialty [place] [address] [place] [address] PCP - General Family Medicine 03/13/25 Lucas Nuno MD [address] [address] Assigned Surgical Provider 03/09/24 12/09/24 Mariana Acosta PA-C [address] 237245 Assigned Surgical Provider 12/10/24 02/06/25 Purvi Jeong [facility] [address] [place] [phone] Pharmacist Pharmacist Graphite Mill Operator 01/03/25 Lucas Nuno MD [address] [address] Assigned Surgical Provider 02/07/25 Meghan Cox [facility] [address] [place] [address] Pharmacist Pharmacist Graphite Mill Operator 03/20/25 documented as of this encounter
--- OUTSIDE RECORDS SUMMARY | 2025-05-27 15:20 | XMS_ITS | Encounter Summary ---
Author Organization [place] Address [facility] [place] [address] Care Team Providers Care Director Of Field Service Name Role Phone Clinic, [facility] Primary Care Provider Leatha Wagner APRN [facility] Unavailable [phone] Mariana AcostaC Unavailable + [phone] Sarah Juares MD Primary Care Provider [phone] Lucas Nuno MD Unavailable +- [phone] Mariana AcostaC Unavailable + [phone] Lucas Nuno MD Unavailable +-[phone] Mariana Acosta PA-C Unavailable + [phone] Purvi Jeong [facility] Unavailable [phone] Lucas Nuno MD Unavailable +[phone] Meghan Cox [facility] Unavailable [phone] Encounter Details Date Type Department Care Team (Late st Contact Info) Description 07/20/2019 Records - [facility] CONVERSION Scan, Non-Provider Social History Tobacco Use Types Packs/Day Years Used Date Smoking Tobacco: Every Day Smokeless Tobacco: Never Alcohol Use Standard Drinks/Week Comments Not Currently 0 (1 standard drink = 0.6 oz pur e alcohol) Comments Yes Sex and Gender Information Value Date Recorded Sex Assigned at Female 06/03/2022 7:36 AM CDT 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 SCUBA DIVE TRAINING INSTRUCTOR Gender Identity Female 06/03/2022 7:36 AM CDT Sexual Orientation Straight 06/03/2022 7: 36 AM CDT documented as of this encounter Plan of Treatment Not on file documented as of this encounter Visit Diagnoses Not on filedocumented in this encounter Additional Health Concerns Infection Onset Date Last Indicated Resolved Time Rule Out COVID-19 05/03/2020 05/03/2020 05/04/2020 9:28 PM CDT Rule Out COVID-19 04/19/2023 04/19/2023 04/19/2023 5:29 AM CDT documented as of this encounter Care Teams Director Of Field Service Relationship Specialty Start Date End Date [facility], [facility] [address] [place] [address] PCP - General 01/02/14 03/23/23 [place] [address] [place] [address] PCP - General Family Medicine 03/13/25 Leatha Wagner APRN PRINT BINDING WORKER [address] [place] [address] Assigned Surgical Provider 11/02/21 09/04/22 Mariana Acosta PA-C [address] 944985 Assigned Surgical Provider 09/05/22 12/09/23 Lucas Nuno MD [address] 852385 Assigned Surgical Provider 12/10/23 01/07/24 Mariana Acosta PA-C [address] [address] Assigned Surgical Provider 01/08/24 03/08/24 Lucas Nuno MD [address] [address] Assigned Surgical Provider 03/09/24 12/09/24 Mariana Acosta PA-C [address] [address] Assigned Surgical Provider 12/10/24 02/06/25 Purvi Jeong RPH [address] [place] [address] [phone] Pharmacist Pharmacist Acid Purifier 01/03/25 Lucas Nuno MD [address] [place] [address] Assigned Surgical Provider 02/07/25 Meghan Cox RPH [address] [place] [address] [phone] Pharmacist Pharmacist Acid Purifier 03/20/25 documented as of this encounter
--- OUTSIDE RECORDS SUMMARY | 2025-05-27 15:20 | XMS_ITS | Encounter Summary ---
Author Organization [place] Address [facility] [place] [address] Care Team Providers Care Aircraft Tool Maker Name Role Phone [facility], [facility] Primary Care Provider Leatha Wagner APRN [facility] Unavailable [phone] Mariana Acosta-C Unavailable + [phone] Sarah Juares MD Primary Care Provider [phone] Lucas Nuno MD Unavailable +- [phone] Mariana AcostaC Unavailable +[phone] Lucas Nuno MD Unavailable +- [phone] Mariana AcostaC Unavailable +[phone] Purvi Jeong [facility] Unavailable [phone] Lucas Nuno MD Unavailable +- [phone] Meghan Cox [facility] Unavailable [phone] Encounter Details Date Type Department Care Team (Late st Contact Info) Description 06/02/2022 [facility] Medical Advice [facility] Weight Management [facility] [address] 4th [place] [address] Rita Gillespie, EMT Social History Tobacco Use Types Packs/Day Years Used Date Smoking Tobacco: Former Smokeless Tobacco: Never Alcohol Use Standard Drinks/Week Comments Not Currently 0 (1 standard drink = 0.6 oz pur e alcohol) [place] Depression Scale Answer Date Recorded [place] Depression Score 1 07/06/2021 Last EPDS Self Harm Result Not on file 07/06 Comments No Sex and Gender Information Value Date Recorded Sex Assigned at Female 06/03/2022 7:36 AM CDT 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 CHARACTER ACTRESS Gender Identity Female 06/03/2022 7:36 AM CDT [...] documented as of this encounter Care Teams Aircraft Tool Maker Relationship Specialty Start Date End Date [facility], [facility] [address] [facility] [place] [address] PCP - General 01/02/14 03/23/23 [place] [address] [facility] [place] [address] PCP - General Family Medicine 03/13/25 Leatha Wagner APRN COMMAND CENTER ANALYST [address] [place] [address] Assigned Surgical Provider 11/02/21 09/04/22 Mariana Acosta PA-C [address] [place] [address] Assigned Surgical Provider 09/05/22 12/09/23 Lucas Nuno MD [address] [address] Assigned Surgical Provider 12/10/23 01/07/24 Mariana Acosta PA-C [address] [address] Assigned Surgical Provider 01/08/24 03/08/24 Lucas Nuno MD [address] [address] Assigned Surgical Provider 03/09/24 12/09/24 Mariana Acosta PA-C [address] [address] Assigned Surgical Provider 12/10/24 02/06/25 Purvi Jeong [facility] [address] [place] [address] [phone] Pharmacist Pharmacist Checking Department Supervisor 01/03/25 Lucas Nuno MD [address] [place] [address] Assigned Surgical Provider 02/07/25 Meghan Cox [facility] [address] [place] [address] Pharmacist Pharmacist Checking Department Supervisor 03/20/25 documented as of this encounter
--- OUTSIDE RECORDS SUMMARY | 2025-05-27 15:20 | XMS_ITS | Encounter Summary ---
Author Organization [place] Address [address] [facility] [place] [address] Care Team Providers Care Tree Specialist Name Role Phone Sarah Juares MD Primary Care Provider [phone] Lucas Nuno MD Unavailable [phone] Mariana AcostaC Unavailable + [phone] Purvi Jeong [facility] Unavailable [phone] Lucas Nuno MD Unavailable [phone] Meghan Cox [facility] Unavailable [phone] Reason for Visit * Reason Onset Date Comments Prior Auth - Medication 11/15/2024 Miguelina mccormick Approved Encounter Details Date Type Department Care Team (Late st Contact Info) Description 11/15/2024 Telephone [facility] [place] [address] [facility] [address] 4[address] [place] [address] Mariana Acosta PA-C [address] [facility] [address] [place] [address] Prior Auth - Medication (Zedeja pa Approved) Social History Tobacco Use Types Packs/Day Years Used Date Smoking Tobacco: Former Smokeless Tobacco: Never Alcohol Use Standard Drinks/Week Comments Not Currently 0 (1 standard drink = 0.6 oz pur e alcohol) rare PHQ-2 Answer Date Recorded PHQ-2 Score 0 02/22/2025 [place] Depression Scale Answer Date Recorded [place] Depression Score 1 07/06/2021 Last EPDS Self [...] Answer Date Recorded Do you have housing? (Housin g is defined as stable permanent housing and does not include staying outside in a car, in a tent, in an abandoned building, in an overnight long term, or couch-surfing.) Yes 03/21/2025 Are you worried [...] AM CDT 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 PERINATAL SOCIAL WORKER Gender Identity Female 06/03/2022 7:36 AM CDT Sexual Orientation Straight 06/03/2022 7: 36 AM CDT documented as of this encounter Miscellaneous Notes * Telephone Encounter - Anastasia Molina RN - 11/16/2024 1:06 PM CST Patient notified PA approved NATAL SOCIAL WORKER * Telephone Encounter - Tamie Gonzalez - 11/16/2024 12:53 PM CST Images from the original note were not included. Prior Authorization Approval Medication: ZEPBOUND 2.5 MG/0.5ML SC SOAJ Authorization Effective Date: 10/20/2024 Authorization Expiration Date: 05/16/2025 Approved Dose/Quantity: 2 Reference #: [id number] Insurance Company: [employer] [phone] Expected CoPay: $ Zero CoPay Card Available: Financial Assistance Needed: NO Which Pharmacy is filling the prescription: Pharmacy Notified: yes Patient Notified: yes NATAL SOCIAL WORKER * Telephone Encounter - Tamie Gonzalez - 11/15/2024 2:42 PM CST Images from the original note were not included. PA Initiation Medication: ZEPBOUND 2.5 MG/0.5ML SC SOAJ Insurance Company: [employer] [phone] Pharmacy Filling the Rx: Filling Pharmacy Phone: Filling Pharmacy Fax: Start Date: 11/15/2024 NATAL SOCIAL WORKER documented in this encounter Plan of Treatment Not on file documented as of this encounter Visit Diagnoses Not on filedocumented in this encounter Care Teams Tree Specialist Relationship Specialty [place] [address] [place] [address] PCP - General Family Medicine 03/13/25 Lucas Nuno MD [address] [place] [address] Assigned Surgical Provider 03/09/24 12/09/24 Mariana Acosta PA-C [address] [place] [address]53 Assigned Surgical Provider 12/10/24 02/06/25 Purvi Jeong [facility] [address] [place] [phone] Pharmacist Pharmacist Branch Operations Specialist 01/03/25 Lucas Nuno MD [address] [place] [address] Assigned Surgical Provider 02/07/25 Meghan Cox [place] [address] [place] [address] Pharmacist Pharmacist Branch Operations Specialist 03/20/25 documented as of this encounter
--- OUTSIDE RECORDS SUMMARY | 2025-05-27 15:20 | XMS_ITS | Encounter Summary ---
Author Organization [place] Address [facility] [place] [address] Care Team Providers Care Certified Teacher Assistant Name Role Phone Mariana Acosta PA-C Unavailable + [phone] Sarah Juares MD Primary Care Provider [phone] Lucas Nuno MD Unavailable [phone] Mariana Acosta PA-C Unavailable + [phone] Lucas Nuno MD Unavailable [phone] Mariana Acosta PA-C Unavailable + [phone] Purvi Jeong [facility] Unavailable [phone] Lucas Nuno MD Unavailable [phone] Meghan Cox [facility] Unavailable [phone] Reason for Visit * Reason Onset Date Comments Refill Request 10/20/2023 Encounter Details Date Type Department Care Team (Late st Contact Info) Description 10/20/2023 Bree Jesus [facility] [place] [address] [facility] [address] 4th [place] [address] Mariana Acosta PA-C [address] [facility] [address] [place] [address] Refill Request Social History Tobacco Use Types Packs/Day Years Used Date Smoking Tobacco: Former Smokeless Tobacco: Never Alcohol Use Standard Drinks/Week Comments Not Currently 0 (1 standard drink = 0.6 oz pur e alcohol) rare PHQ-2 Answer Date Recorded PHQ-2 Score 0 05/12/2023 [place] Depression Scale Answer Date Recorded [place] Depression Score 1 07/06/2021 Last EPDS Self Harm Result Not on file 07/06 Adolescent Education Answer Date Record ed Getting School Help Needed Not on file 07/10 Comments No Sex and Gender Information Value Date Recorded Sex Assigned at Female 06/03/2022 7:36 AM CDT 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 ALARM SIGNALER Gender Identity Female 06/03/2022 7:36 AM CDT Sexual Orientation Straight 06/03/2022 7: 36 AM CDT documented as of this encounter Plan of Treatment Not on file documented as of this encounter Visit Diagnoses Diagnosis Class 2 severe obesity due to excess calories with serious comorbidity and body mass index (BMI) of 39.0 to 39.9 in adult (H) documented in this encounter Care Teams Certified Teacher Assistant Relationship Specialty [place] [address] [facility] [place] [address] PCP - General Family Medicine 03/13/25 Mariana Acosta PA-C [address] [place] [address] [id number] Assigned Surgical Provider 09/05/22 12/09/23 Lucas Nuno MD [address] [phone] Assigned Surgical Provider 12/10/23 01/07/24 Mariana Acosta PA-C [address] [place] [address] [id number] Assigned Surgical Provider 01/08/24 03/08/24 Lucas Nuno MD [address] [place] [address] Assigned Surgical Provider 03/09/24 12/09/24 Mariana Acosta PA-C [address] [place] [address] 80067 Assigned Surgical Provider 12/10/24 02/06/25 Purvi Jeong [facility] [address] [place] [phone] Pharmacist Pharmacist Assistant Prosecuting Attorney 01/03/25 Lucas Nuno MD [address] [place] [address] 8[address] Assigned Surgical Provider 02/07/25 Meghan Cox [facility] [address] [place] [address] Pharmacist Pharmacist Assistant Prosecuting Attorney 03/20/25 documented as of this encounter
--- OUTSIDE RECORDS SUMMARY | 2025-05-27 15:20 | XMS_ITS | Encounter Summary ---
Author Organization [place] Address [address] [facility] [place] [address] Care Team Providers Care Hematologist Name Role Phone Sarah Juares MD Primary Care Provider [phone] Lucas Nuno MD Unavailable + [phone] Mariana AcostaC Unavailable + [phone] Purvi Jeong [facility] Unavailable [phone] Lucas Nuno MD Unavailable +[phone] Meghan Cox [facility] Unavailable [phone] Encounter Details Date Type Department Care Team (Late st Contact Info) Description 04/13/2024 [facility] [address] [place] [id number] [facility] Social History Tobacco Use Types Packs/Day Years Used Date Smoking Tobacco: Former Smokeless Tobacco: Never Alcohol Use Standard Drinks/Week Comments Not Currently 0 (1 standard drink = 0.6 oz pur e alcohol) rare PHQ-2 Answer Date Recorded PHQ-2 Score 0 05/12/2023 [place] Depression Scale Answer Date Recorded [place] Depression Score 1 07/06/2021 Last EPDS Self Harm Result Not on file 07/06 Adolescent Education Answer Date Record ed Getting School Help Needed Not on file 07/10 Comments No Sex and Gender Information Value Date Recorded Sex Assigned at Female 06/03/2022 7:36 AM CDT 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 ASPHALT DAUBER Gender Identity Female 06/03/2022 7:36 AM CDT Sexual Orientation Straight 06/03/2022 7: 36 AM CDT documented as of this encounter Plan of Treatment Not on file documented as of this encounter Visit Diagnoses Not on filedocumented in this encounter Care Teams Hematologist Relationship Specialty [place] [address] [place] [address] PCP - General Family Medicine 03/13/25 Lucas Nuno MD [address] [address] Assigned Surgical Provider 03/09/24 12/09/24 Mariana Acosta PA-C [address] [phone] Assigned Surgical Provider 12/10/24 02/06/25 Puvri Jeong [facility] [address] [place] [address] Pharmacist Pharmacist Aircraft Navigator 01/03/25 Lucas Nuno MD [address] [address] Assigned Surgical Provider 02/07/25 Meghan Cox [facility] [address] [place] [address] Pharmacist Pharmacist Aircraft Navigator 03/20/25 documented as of this encounter
--- OUTSIDE RECORDS SUMMARY | 2025-05-27 15:20 | XMS_ITS | Encounter Summary ---
Author Organization [place] Address [address] [facility] [place] [address] Care Team Providers Care Shipping And Receiving Coordinator Name Role Phone Sarah Juares MD Primary Care Provider [phone] Lucas Nuno MD Unavailable +[phone] Mariana Acosta PA-C Unavailable + [phone] Purvi Jeong [facility] Unavailable [phone] Lucas Nuno MD Unavailable [phone] Meghan Cox [facility] Unavailable [phone] Encounter Details Date Type Department Care Team (Late st Contact Info) Description 03/15/2024 MyC Medical Advice [facility] [address] 4th [place] [address] Giuliana Masterson Social History Tobacco Use Types Packs/Day Years Used Date Smoking Tobacco: Former Smokeless Tobacco: Never Alcohol Use Standard Drinks/Week Comments Not Currently 0 (1 standard drink = 0.6 oz pur e alcohol) rare PHQ-2 Answer Date Recorded PHQ-2 Score 0 05/12/2023 [place] Depression Scale Answer Date Recorded [place] Depression Score 1 07/06/2021 Last EPDS Self Harm Result Not on file 07/06 Adolescent Education Answer Date Record ed Getting School Help Needed Not on file 07/10 Comments No Sex and Gender Information Value Date Recorded Sex Assigned at Female 06/03/2022 7:36 AM CDT 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 Gender Identity Female 06/03/2022 7:36 AM CDT Sexual Orientation Straight 06/03/2022 7: 36 AM CDT documented as of this encounter Plan of Treatment Not on file documented as of this encounter Visit Diagnoses Not on filedocumented in this encounter Care Teams Shipping And Receiving Coordinator Relationship Specialty [place] [address] [place] [address] PCP - General Family Medicine 03/13/25 Lucas Nuno MD [address] [address] Assigned Surgical Provider 03/09/24 12/09/24 Mariana Acosta PA-C [address] 269455 Assigned Surgical Provider 12/10/24 02/06/25 [address]vi [address] [facility] [address] [place] [address] Pharmacist Pharmacist Rn Correctional 01/03/25 Lucas Nuno MD [address] [address] Assigned Surgical Provider 02/07/[address] [facility] [address] [place] [address] Pharmacist Pharmacist Rn Correctional 03/20/25 documented as of this encounter
--- OUTSIDE RECORDS SUMMARY | 2025-05-27 15:20 | XMS_ITS | Encounter Summary ---
Author Organization [place] Address [address] [facility] [place] [address] Care Team Providers Care Medical Information Officer Name Role Phone Sarah Juares MD Primary Care Provider [phone] Mariana Acosta-C Unavailable + [phone] Purvi Jeong [facility] Unavailable [phone] Lucas Nuno MD Unavailable [phone] Meghan Cox [facility] Unavailable [phone] Encounter Details Date Type Department Care Team (Late st Contact Info) Description 01/30/2025 MyC Medical Advice [facility] [address] [facility] [address] [place] [address] Keena Valente Social History Tobacco Use Types Packs/Day Years Used Date Smoking Tobacco: Former Smokeless Tobacco: Never Alcohol Use Standard Drinks/Week Comments Not Currently 0 (1 standard drink = 0.6 oz pur e alcohol) rare PHQ-2 Answer Date Recorded PHQ-2 Score 0 11/15/2024 [place] Depression Scale Answer Date Recorded [place] Depression Score 1 07/06/2021 Last EPDS Self [...] AM CDT 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 Gender Identity Female 06/03/2022 7:36 AM CDT Sexual Orientation Straight 06/03/2022 7: 36 AM CDT documented as of this encounter Plan of Treatment Not on file documented as of this encounter Visit Diagnoses Not on filedocumented in this encounter Care Teams Medical Information Officer Relationship Specialty [place] [address] [place] [address] PCP - General Family Medicine 03/13/25 Mariana Acosta PA-C [address] [place] [address] [id number] Assigned Surgical Provider 12/10/24 02/06/25 Purvi Jeong [facility] [address] [place] [address] [phone] Pharmacist Pharmacist Industrial Tech Instructor 01/03/25 Lucas Nuno MD [address] [place] [address] 199655 Assigned Surgical Provider 02/07/25 [facility] [address] [place] [address] Pharmacist Pharmacist Industrial Tech Instructor 03/20/25 documented as of this encounter
--- OUTSIDE RECORDS SUMMARY | 2025-05-27 15:20 | XMS_ITS | Clinical Summary ---
Author Organization [facility] Address [address] [place] [address] Care Team Providers Care Pantry Chef Name Role Phone Pamela Jara NP Unavailable Unavaila Paulina Stubbs RN Unavailable [phone] Jose Tran MD Primary Care Provider [phone] Allergies Active Allergy Reactions Criticality Noted Date Comments Azithromycin *Unknown 01/05/2019 Nsaids (Non-Steroidal Anti-Inflammatory Drug) Other - Describe In Comment Field 11/25/2016 Patient had bariatric surgery and should not ever have NSAIDs due to high risk for gastric ulcers. Tramadol Rash Low 05/07/2023 Medications multivitamin (MVI) tablet Take 1 tablet by mouth once daily. 0 Active ferrous sulfate 325 mg delayed release tablet Take 1 tablet by mouth once daily. Take with Vitamin C 0 Active folic acid 1 mg tablet Take 2 mg by mouth two times daily. 07/04/20 24 Active fondaparinux 10 mg/0.8 mL (ARIXTRA) 10 mg/0.8 mL syrg Inject 10 mg subcutaneous once daily. 07/04/20 24 Active pantoprazole (PROTONIX) 40 mg delayed-release tabletIndications: Chronic gastritis, presence of bleeding unspecified, unspecified gastritis type Take 1 Tablet (40 mg) by mouth two times daily before meals. 90 Tablet 3 07/21/20 24 Active escitalopram oxalate 10 mg tabletIndications: Anxiety Take 1 Tablet (10 mg) by mouth once daily in the morning. 90 Tablet 1 01/24/20 25 Active tiZANidine 4 mg tabletIndications: Muscle spasm of back Take 1 Tablet (4 mg) by mouth every 8 hours if needed for Muscle Spasm. 30 Tablet 03/14/20 25 Active naloxone 4 mg/actuation nasal spray Inhale 4 mg into affected nostril(s). 03/23/20 25 Active ondansetron 4 mg disintegrating tablet 4 mg every 8 hours if needed for Nausea/Vomiting. 03/23/20 25 Active sennosides-docusat e (8.6-50 mg) tabletIndications: Constipation, acute Take 1-2 Tablets by mouth two times daily. 60 Tablet 03/26/20 25 Active HYDROmorphone 2 mg tabletIndications: Abdominal pain, epigastric Take 1 Tablet (2 mg) by mouth every 6 hours if needed for Pain. 20 Tablet 03/26/20 25 Active hydrOXYzine HCL 25 mg tabletIndications: Anxiety Take 1 Tablet (25 mg) by mouth every 6 hours if needed for Anxiety. 30 Tablet 2 04/19/20 25 Active Hospital, Clinic, or Other Facility Administered Medication Ordered Dose Route Frequency Start Date End Date Status cyanocobalamin (VITAMIN B12) 1,000 mcg/mL injection 1,000 mcgIndications:B12 deficiency 1000 mcg IM Q 4 WEEKS (28 DAYS) 03/17/2025 02/16/2026 Active Active Problems Patient Care Coordination No te Formatting of this note migh t be different from the original. 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 S/P laparoscopic sleeve gastrectomy 10/23/2021 Overview (05/25/2024): Sleeve 2016- All Last Assessment & Plan: 10% improvement of reflux (perecieved) since adding omeprazole (on empty stomach). Not always tolerating pepcid (nausea)- taking after meals twice daily. Continues to need TUMS - 1 container every 3 days. Since last seen- 2 chipped teeth. Dentist suspects calcium from TUMS is contributing to new dental problems. Labs and ultrasound not done. Recommend getting these done. Working on weight loss again and finding she has been very hungry. Appropriate portions at meals but then hungry 20 min after meal. Then, wants to snack all day. Feels physically hungry at that time. Mood good. No hx kidney stones. Would like to try Qsymia. Plan: Start qsymia - will split if not covered by insurance Move pepcid to on empty stomach carafate PRN- aware it can block absorption of meds and vitamins Schedule labs and ultrasound Follow up 2-3 months LGSIL of cervix of undetermined significance Overview (11/28/2018): 11/14/2018 LSIL. Plan: Pap due 10/2019 Abnormal Pap smear of cervix 10/18/2018 Overview (05/25/2024): [facility] FH: diabetes mellitus 05/11/2017 Hidradenitis suppurativa of right axilla 017 laparoscopic sleeve gastrectomy 10/13/2016 Dr. 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 Overview (02/06/2009): January 2009 with abdominal pain Gastroesophageal reflux disease Resolved Problems Problem Noted Date Diagnosed Date Resolved Date Chest pain 04/19/2023 01/23/2025 Morbid obesity with BMI of 40.0-44.9, adult 05/11/2017 11/14/2018 Morbid obesity with BMI of 40.0-44.9, adult 05/06/2016 11/14/2018 Encounters Date Type Department Care Team Description 05/25/2025 Travel 04/17/2025 [place] [facility] [place] [address] [place] [address] Jose Tran MD Refill Request (Hydroxyzine Hcl) 03/26/2025 4:00 PM CDT [place] [facility] [address] [place] [address] Jose Tran MD Medication Management 03/26/2025 Telephone [facility] [address] [place] [address] Jose Tran MD Other (Medication) 03/19/2025 Telephone [facility] [place] [address] [place] [phone] Eloina Currie NP Phone Visit 03/17/2025 8:55 AM CDT Telemedicine [facility] [address] [place] [phone] Hussein Izaguirre MD Telehealth (No vitals taken. CC: Needs pain medication) 03/17/2025 Travel 03/16/2025 9:00 AM CDT Office [place] [facility] [address] [place] [address] Jose Tran MD Lab; Pain (Upper left chest/shoulder and lower back) 03/15/2025 Travel 03/14/2025 Nurse Triage [facility] [address] [place] [address] Genevieve Higgins, Pain from Last 3 Months Immunizations Immunization Administration Dates Next Due Hepatitis B (Peds) 10/14/2006,06/09/2006 Human Papilloma Virus Vaccine 08/31/2012, 012 Influenza, IIV4 07/20/2019,12/01/2018 MMR 02/26/1999,11/12/1995 Polio Virus, Unspecified 02/26/1999,11/12/1995,0 1994,1994 Tdap 05/14/2021,09/28/2016,06/09/2006 Varicella Vaccine 06/09/2006 Family History Medical History Relation Name Comments Hyperlipidemia Father Hypertension Father Obesity Father Hyperlipidemia Maternal Grandfather Hypertension Maternal Grandfather Cancer-colon Maternal Grandmother Hyperlipidemia Maternal Grandmother Hypertension Maternal Grandmother Obesity Maternal Grandmother Hyperlipidemia Mother Hypertension Mother Obesity Mother Unknown Other 1 uncle crohns Cancer-breast Other 2 maternal aunt (age 22) Blood Disease Paternal Grandfather Cancer-colon Paternal Grandfather Diabetes Paternal Grandfather Hyperlipidemia Paternal Grandfather Hypertension Paternal Grandfather Obesity Paternal Grandfather Stroke Paternal Grandfather Blood Disease Paternal Grandmother Cancer-colon Paternal Grandmother Diabetes Paternal Grandmother Hyperlipidemia Paternal Grandmother Hypertension Paternal Grandmother Obesity Paternal Grandmother Relation Name Status Comments Father Alive Maternal Grandfather Alive Maternal Grandmother Mother Alive Other 1 Other 2 Paternal Grandfather Paternal Grandmother Social History Tobacco Use Types Packs/Day Years Used Date Smoking Tobacco: Former Cigarettes 1.2 5.6 2 - 2016 Smokeless Tobacco: Never Tobacco Cessation:Counseling Given: Not Answered Alcohol Use Standard Drinks/Week Comments Not Currently 3 (1 standard drink = 0.6 oz pur e alcohol) PHQ-2 Answer Date Recorded PHQ-2 TOTAL SCORE 0 01/23/2025 Social Connections Answer Date Recorded Do you often feel lonely or isolated from those around you? 0 07/20/2024 Financial Resource Strain Answer Date R ecorded Difficulty of Paying Living Expenses 3 05/23/2024 Difficulty of Paying Living Expenses Not on file 05/23/2024 Food Insecurity Answer Date Recorded Do you worry your food will run out before you are able to buy more? 1 07/20/2024 Transportation Needs Answer Date Record ed Does lack of transportation keep you from medica l appointments? 1 07/20/2024 Does lack of transportation keep you from work, meetings or getting things that you need? 1 07/20/2024 Housing Stability Answer Date Recorded What is your housing situation today? 1 07/20/2024 Interpersonal Safety Answer Date Record ed Are you being hit, kicked, p ushed or yelled at (see row info)? No 07/19/2024 Interpersonal Safety Abuse 12 - 18 Not on file 07/19/2024 Interpersonal Safety Ambulatory Vulnerability No t on file 07/19/2024 Utilities Answer Date Recorded Do you have trouble paying f or utilities (for example, heat, electricity, water, phone)? 1 07/20/2024 Comments No Sex and Gender Information Value Date Recorded Sex Assigned at Not on file Legal Sex Female 7:30 AM VIROLOGIST Gender Identity Not on file Sexual Orientation Not on file Obstetrics History Para Term AB IAB SAB Ectopic Multiple Livin g Live Births 1 0 0 0 0 0 0 0 0 0 Date Outcome GA Total Labor Labor/2nd/3rd Weight Sex Type Anes PTL Mayuri A1 A5 Name Clin Last Filed Vital Signs Vital Sign Reading Time Taken Comments Blood Pressure 126/86 03/16/2025 9:01 AM CDT Pulse 84 03/16/2025 9:01 AM CDT Temperature 36.4 C (97.5 F) 07/31/2024 3:33 PM CDT Respiratory Rate 18 07/31/2024 3:33 PM CDT Oxygen Saturation 98% 07/31/2024 3:33 PM CDT Inhaled Oxygen Concentration - - Weight 125.2 kg (276 lb) 03/16/2025 9:01 AM CDT Height 175.3 cm (5' 9) 03/16/2025 9:01 AM CDT Body Mass Index 40.76 03/16/2025 9:01 AM CDT Plan of Treatment Upcoming Encounters Date Type Department Care Team (Late st Contact Info) Description 06/15/2025 1:00 PM CDT Nurse/Clinic Staff Only [facility] [address] [place] [address] 07/17/2025 1:00 PM CDT Nurse/Clinic Staff Only [facility] [address] [place] [address] 08/16/2025 1:00 PM CDT Nurse/Clinic Staff Only [facility] [address] [place] [address] 09/14/2025 1:00 PM VIROLOGIST Nurse/Clinic Staff Only [facility] [address] [place] [address] 10/16/2025 1:00 PM VIROLOGIST Nurse/Clinic Staff Only [facility] [address] [place] [address] 11/16/2025 1:00 PM VIROLOGIST Nurse/Clinic Staff Only [facility] [address] [place] [address] 12/14/2025 1:00 PM VIROLOGIST Nurse/Clinic Staff Only [facility] [address] [place] [address] 01/11/2026 1:00 PM CDT Nurse/Clinic Staff Only [facility] [address] [place] [address] 02/12/2026 1:00 PM CDT Nurse/Clinic Staff Only [facility] [address] [place] [address] 03/14/2026 1:00 PM CDT Nurse/Clinic Staff Only [facility] [address] [place] [address] Health Maintenance Due Date Last Done Comments Hepatitis B series for 19+ (3 of 3 - 3-dose series) 12/09/2006 10/14/2006, 06/09/2006 HIV for age 15-65 2009 Hepatitis C screening for age 18-79 2012 Pap test for age 21-65 12/20/2023 (Verified in Care Everywhere or Patient Record), 11/14/2018, 06/26/2016 COVID-19 vaccine series ( season) 2024 12/26/2021, 06/26/2021, 05/27/2021 Influenza Vaccine (#1) 2025 07/20/2019, 2018 Depression screening for age 12+ 01/23/2026 01/23/2025 BMI (ht and wt on same day) for age 18+ 03/16/2026 03/16/2025, 07/06/2024, 05/23/2024, Additional history exists Tetanus booster 05/14/2031 05/14/2021, 09/17, 06/09/2006 Pneumococcal series for age 6-49 Aged Out No longer eligible based on patient's age to complete this topic Medical Devices Implanted Type Area Tax Credit Leasing Consultant Device Identifier Shelf Expiration Date Model / Serial / Lot Mesh Ventral 60 Seamguard [place] Flex - [id number] Implanted:Qty: 1 on 10/13/2016 by Rajat Arias MD at [facility] N/A: Stomach [employer] [place] 01/15/2019 [id number] / / [id number] Mesh Ventral 60 Seamguard [place] Flex - [id number] Implanted:Qty: 3 on 10/13/2016 by Rajat Arias MD at [facility] N/A: Stomach [employer] [place] 07/17/2019 [id number] / / [id number] Mesh Ventral 60 Seamguard [place] Flex - [id number] Implanted:Qty: 1 on 10/13/2016 by Rajat Arias MD at [facility] N/A: Stomach [employer] 12/15/2018 [id number] / / [id number] Procedures Procedure Name Priority Date/Time Associated Diagnosis Comments FOLIC ACID Routine 03/16/2025 9:31 AM CDT 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 FERRITIN Routine 03/16/2025 9:31 AM CDT 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 PROLACTIN Routine 03/16/2025 9:31 AM CDT Elevated prolactin level BASIC METABOLIC PANEL Routine 03/16/2025 9:31 AM CDT Chest pain, unspecified type CBC WITH AUTO DIFFERENTIAL Routine 03/16/2025 9:31 AM CDT Chest pain, unspecified type D-DIMER,QUANTITATIVE STAT 03/16/2025 9:23 AM CDT Chest pain, unspecified type NEWS CLERK THIN PREP PAP SCREEN IMAGED Routine 11/14/2018 3:00 PM VIROLOGIST Uses contraception from Last 3 Months or Most Recently Relevant to Health Maintenance Results * (ABNORMAL) CBC AND DIFFERENTIAL (03/16/2025 9:31 AM CDT) WHITE BLOOD CELL COUNT 7.2 3.8 - 10.8 Thousand/u L [facility] RED BLOOD CELL COUNT 2.86(L) 3.80 - 5.10 Million/uL [facility] HEMOGLOBIN 11.5(L) 11.7 - 15.5 g/dL [facility] HEMATOCRIT 33.1(L) 35.0 - 45.0 % [facility] MCV 115.7(H) 80.0 - 100.0 fL [facility] MCH 40.2(H) 27.0 - 33.0 pg [facility] MCHC 34.7 32.0 - 36.0 g/dL [facility] Comment: For adults, a slight decrease in the calculated MCHC value (in the range of 30 to 32 g/dL) is most likely not clinically significant; however, it should be interpreted with caution in correlation with other red cell parameters and the patient's clinical condition. RDW 14.0 11.0 - 15.0 % [facility] PLATELET COUNT 257 140 - 400 Thousand/u L [facility] MPV 9.7 7.5 - 12.5 fL [facility] ABSOLUTE NEUTROPHILS 5,177 1,500 - 7,800 cells/uL [facility] ABSOLUTE LYMPHOCYTES 1,426 850 - 3,900 cells/uL [facility] ABSOLUTE MONOCYTES 425 200 - 950 cells/uL [facility] ABSOLUTE EOSINOPHILS 130 15 - 500 cells/uL [facility] ABSOLUTE BASOPHILS 43 0 - 200 cells/uL [facility] NEUTROPHILS 71.9 % [facility] LYMPHOCYTES 19.8 % [facility] MONOCYTES 5.9 % [facility] EOSINOPHILS 1.8 % [facility] BASOPHILS 0.6 % [facility] CBC (INCLUDES DIFF/PLT) COMMENTS [facility] Comment: Review of peripheral smear confirms automated results. Blood BLOOD SPECIMEN / Unknown 03/16/2025 9:31 AM CDT 03/16/2025 9:31 AM CDT Jose Tran MD HEMATOLOGY Final Result Performing Organization Address [facility]/ZIP Co de Phone Number [employer] [facility] [address] [place] [address], [place] [phone] [facility] [address] [place] [address] * PROLACTIN (03/16/2025 9:31 AM CDT) PROLACTIN 10.7 ng/mL [facility] Comment: Reference Range Females Non- 3.0-30.0 10.0-209.0 Postmenopausal 2.0-20.0 Blood BLOOD SPECIMEN / Unknown 03/16/2025 9:31 AM CDT 03/16/2025 9:31 AM CDT Jose Tran MD SEND OUTS Final Result [facility] [address] [place] [address], [place] [phone] [facility] [address] [place] [address] * (ABNORMAL) FOLIC ACID (03/16/2025 9:31 AM CDT) FOLATE, SERUM 2.0(L) ng/mL [facility] Comment: Reference Range Low: <3.4 Borderline: 3.4-5.4 Normal: >5.4 Blood BLOOD SPECIMEN / Unknown 03/16/2025 9:31 AM CDT 03/16/2025 9:31 AM CDT us Jose Tran MD CHEMISTRY Final Result Performing Organization Address [facility]/ZIP Co de Phone Number [employer] [facility] [address] [place] [address], [place] [phone] [facility] [address] [place] [address] * FERRITIN (03/16/2025 9:31 AM CDT) FERRITIN 68 16 - 154 ng/mL [facility] Blood BLOOD SPECIMEN / Unknown 03/16/2025 9:31 AM CDT 03/16/2025 9:31 AM CDT us Jose Tran MD CHEMISTRY Final Result Performing Organization Address [facility] de Phone Number [employer] [address] [place] [address], [place] [phone] [facility] [address] [place] [address] * BASIC METABOLIC PANEL (03/16/2025 9:31 AM CDT) GLUCOSE 75 65 - 99 mg/dL [facility] Comment: Fasting reference interval UREA NITROGEN (BUN) 13 7 - 25 mg/dL [facility] CREATININE 0.68 0.50 - 0.97 mg/dL [facility] EGFR 119 > OR = 60 mL/min/1. 73m2 [facility] BUN/CREATININE RATIO SEE NOTE: 6 (calc) [facility] Comment: Not Reported: BUN and Creatinine are within reference range. SODIUM 137 135 - 146 mmol/L [facility] POTASSIUM 4.3 3.5 - 5.3 mmol/L [facility] CHLORIDE 102 98 - 110 mmol/L [facility] CARBON DIOXIDE 27 20 - 32 mmol/L [facility] ELECTROLYTE BALANCE 8 7 - 17 mmol/L (calc) [facility] CALCIUM 9.0 8.6 - 10.2 mg/dL [facility] Blood BLOOD SPECIMEN / Unknown 03/16/2025 9:31 AM CDT 03/16/2025 9:31 AM CDT us Jose Tran MD CHEMISTRY Final Result Performing Organization Address City/[facility]/ZIP Co de Phone Number [facility] [address] [place] [address], [place] [phone] [facility] [address] * (ABNORMAL) D-DIMER,QUANTITATIVE (03/16/2025 9:23 AM CDT) Pathologist [facility] D-DIMER,QUANTI TATIVE 1.40(H) <=0.49 FEU mcg/mL 03/16/2025 12:09 PM CDT [facility] Blood BLOOD SPECIMEN / Unknown [facility] / Unknown 03/16/2025 9:23 AM CDT 03/16/2025 9:23 AM CDT Narrative [facility] - 03/16/2025 12:09 PM CDT The cut off value for exclusion of Deep Vein Thrombosis and / or Pulmonary Embolism is 0.50 FEU mcg/mL For patients greater than 50 years of age the upper limit is age dependent and was calculated with the formula: (PATIENT AGE x 0.01) FEU mcg/mL = Upper limit of normal range us Jose Tran MD HEMATOLOGY Final Result [facility] [address] [place] [address], [place] * (ABNORMAL) NEWS CLERK THIN PREP PAP SCREEN IMAGED (11/14/2018 3:00 PM VIROLOGIST) Case Report Gynecologic Cytology Report Case: [id number] Authorizing [facility] Collected: 11/14/2018 1500 Ordering Location: [facility] Received: 11/14/2018 1528 Clinic First Screen: Milagro Johnson Pathologist: Octavio Zhang Jr., MD Specimen: NEWS CLERK ThinPrep Vial Screening, Cervical 11/25/2018 5:50 PM VIROLOGIST [facility] ENTRAL LABORATORY INTERPRETATION/ RESULT LOW GRADE SQUAMOUS INTRAEPITHELIAL LESION (LSIL)(A) (none) 11/25/2018 5:50 PM VIROLOGIST [facility] EN[facility]AL [facility] at 1750 VIROLOGIST SPECIMEN ADEQUACY Satisfactory for evaluation Endocervical component present 11/25/2018 5:50 PM VIROLOGIST [facility] HPV REQUEST HPV if ASCUS 11/25/2018 5:50 PM VIROLOGIST [facility] ENTRAL LAB[facility] Date of LMP 10/24/2018 11/25/2018 5:50 PM VIROLOGIST [facility] Last Pap Date 06/26/16 11/25/2018 5:50 PM VIROLOGIST [facility] Last Pap Result NIL 9 5:50 PM VIROLOGIST [facility] Abnormal Pap or [place] Bx in last 5 years No 11/25/2018 5:50 PM VIROLOGIST [facility] Menstrual Status Regular Periods 11/25/2018 5:50 PM VIROLOGIST [facility] FileThis [facility] ENTRAL LABORATORY [place] Bx Done Today No 11/25/2018 5:50 PM VIROLOGIST [facility] FileThis [facility] ENTRAL LAB[facility]ORY Additional Information None given 11/25/2018 5:50 PM VIROLOGIST [facility] ENTRAL LABORATORY Automated Review Successful 11/25/2018 5:50 PM VIROLOGIST [facility] ENTRAL LAB[facility] Comment:Specimen processed s uccessfully by automated it training specialist device, ThinPrep Imaging System, [facility] Note The pap test is a screening technique, not a diagnostic procedure. It is used primarily to screen for squamous cancers and precursor lesions. Published studies have shown that it is subject to both false negative and false positive results. The pap test should not be used as the sole means to diagnose or exclude pre-malignant and malignant lesions. Cytology is screened and interpreted at [facility] - [address], [place] [address] and [facility] - [address]; [place] [address] and [facility] - [address]; [place] [address] and [facility] [address]; [place] [address] 11/25/2018 5:50 PM VIROLOGIST [facility] ENTRAL LABORATORY Other (Cervical) Non-Blood / Unknown 11/14/2018 3:00 PM VIROLOGIST 11/14/2018 3:28 PM VIROLOGIST us Mariluz Diamond MD PATHOLOGY/CYTOLOGY Final Re sult [facility] [address] [place] [address], from Last 3 Months or Most Recently Relevant to Health Maintenance Insurance [facility] [employer] Advance Directives * Full Code (Latest Code Status on File) Date Activated Date Inactivated Comments 07/19/2024 7:26 PM 07/21/2024 10:07 PM Question Answer Comments Code Status Discussion: Reviewed Preferences * Full Code Date Activated Date Inactivated Comments 08/08/2020 10:29 AM 08/08/2020 3:01 PM Question Answer Comments Code Status Discussion: Not Discussed * Full Code Date Activated Date Inactivated Comments 10/13/2016 9:09 AM 10/14/2016 8:10 PM * Full Code Date Activated Date Inactivated Comments 10/13/2016 2:06 AM 10/13/2016 9:09 AM Care Teams Pantry Chef Relationship Specialty [place] [address] [place] [address] PCP - General Family Practice 06/05/24 Pamela Jara NP Nurse Practitioner Nurse Practitioner - Adult 08/06/20 Paulina Mcgregor RN Registered Nurse Registered Nurse 08/06/20
--- OUTSIDE RECORDS SUMMARY | 2025-05-27 15:20 | XMS_ITS | Encounter Summary ---
Author Organization [place] Address [address] [facility] [place] [address] Care Team Providers Care Case Technician Name Role Phone Mariana Acosta PA-C Unavailable + [phone] Sarah Juares MD Primary Care Provider +[phone] Lucas Nuno MD Unavailable +[phone] Mariana Acosta PA-C Unavailable + [phone] Lucas Nuno MD Unavailable +[phone] Mariana Acosta PA-C Unavailable + [phone] Purvi Jeong [facility] Unavailable [phone] Lucas Nuno MD Unavailable [phone] Meghan Cox [facility] Unavailable [phone] Encounter Details Date Type Department Care Team (Late st Contact Info) Description 10/20/2023 [facility] [place] [address] [facility] [address] 4th [place] [address] Mariana Acosta PA-C [address] [facility] [address] [place] [address] Social History Tobacco Use Types Packs/Day Years Used Date Smoking Tobacco: Former Smokeless Tobacco: Never Alcohol Use Standard Drinks/Week Comments Not Currently 0 (1 standard drink = 0.6 oz pur e alcohol) rare PHQ-2 Answer Date Recorded PHQ-2 Score 0 05/12/2023 [place] Depression Scale Answer Date Recorded [place] Depression Score 1 07/06/2021 Last EPDS Self Harm Result Not on file 07/06 Adolescent Education Answer Date Record ed Getting School Help Needed Not on file 07/10 Comments No Sex and Gender Information Value Date Recorded Sex Assigned at Female 06/03/2022 7:36 AM CDT 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 [facility] [place] [address] PCP - General Family Medicine 03/13/25 Mariana Acosta PA-C [address] [place] [address] 13193 Assigned Surgical Provider 09/05/22 12/09/23 Lucas Nuno MD [address] [address] Assigned Surgical Provider 12/10/23 01/07/24 Mariana Acosta PA-C [address] [place] [address]367 Assigned Surgical Provider 01/08/24 03/08/24 Lucas Nuno MD [address] [address] Assigned Surgical Provider 03/09/24 12/09/24 Mariana Acosta PA-C [address] [address] Assigned Surgical Provider 12/10/24 02/06/25 Purvi Jeong [facility] [address] [place] [address]779 Pharmacist Pharmacist Leather Skinner 01/03/25 Lucas Nuno MD [address] [place] [address]65 Assigned Surgical Provider 02/07/25 Meghan Cox [facility] 9[address] [place] [address] Pharmacist Pharmacist Leather Skinner 03/20/25 documented as of this encounter
--- OUTSIDE RECORDS SUMMARY | 2025-05-27 15:20 | XMS_ITS | Encounter Summary ---
Author Organization [place] Address [address] [facility] [address] Care Team Providers Care Billboard Installer Name Role Phone Sarah Juares MD Primary Care Provider [phone] Lucas Nuno MD Unavailable +[phone] Mariana Acosta PA-C Unavailable + [phone] Purvi Jeong [facility] Unavailable [phone] Lucas Nuno MD Unavailable +[phone] Meghan Cox [facility] Unavailable [phone] Encounter Details Date Type Department Care Team (Late st Contact Info) Description 11/17/2024 [facility] Medical Advice [facility] [address] [place] [address] Alyce [place] Social History Tobacco Use Types Packs/Day Years Used Date Smoking Tobacco: Former Smokeless Tobacco: Never Alcohol Use Standard Drinks/Week Comments Not Currently 0 (1 standard drink = 0.6 oz pur e alcohol) rare PHQ-2 Answer Date Recorded PHQ-2 Score 0 11/15/2024 [place] Depression Scale Answer Date Recorded [place] Depression Score 1 07/06/2021 Last EPDS Self Harm Result Not on file 07/06 Adolescent Education Answer Date Record ed Getting School Help Needed Not on file 07/10 Comments No Sex and Gender Information Value Date Recorded Sex Assigned at Female 06/03/2022 7:36 AM CDT 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 Gender Identity Female 06/03/2022 7:36 AM CDT Sexual Orientation Straight 06/03/2022 7: 36 AM CDT documented as of this encounter Plan of Treatment Not on file documented as of this encounter Visit Diagnoses Not on filedocumented in this encounter Care Teams Billboard Installer Relationship Specialty [place] [address] [place] [address] PCP - General Family Medicine 03/13/25 Lucas Nuno MD [address] [place] [address] 19615 Assigned Surgical Provider 03/09/24 12/09/24 Mariana Acosta PA-C [address] [address] Assigned Surgical Provider 12/10/24 02/06/25 Purvi Jeong [facility] [address] [place] [address] Pharmacist Pharmacist Telephone Advice Nurse 01/03/25 Lucas Nuno MD [address] [place] [address] 98009 Assigned Surgical Provider 02/07/25 Meghan Cox [facility] [address] [place] [address] Pharmacist Pharmacist Telephone Advice Nurse 03/20/25 documented as of this encounter
--- OUTSIDE RECORDS SUMMARY | 2025-05-27 15:20 | XMS_ITS | Encounter Summary ---
Author Organization [place] Address [address] [place] [address] Care Team Providers Care Maintenance Porter Name Role Phone Sarah Juares MD Primary Care Provider [phone] Mariana Acosta PA-C Unavailable + [phone] Purvi Jeong [facility] Unavailable [phone] Lucas Nuno MD Unavailable [phone] Meghan Cox [facility] Unavailable [phone] Encounter Details Date Type Department Care Team (Late st Contact Info) Description 01/25/2025 [facility] Medical Advice [facility] [address] 4th [place] [address] Anastasia Molina, RN Social History Tobacco Use Types Packs/Day Years Used Date Smoking Tobacco: Former Smokeless Tobacco: Never Alcohol Use Standard Drinks/Week Comments Not Currently 0 (1 standard drink = 0.6 oz pur e alcohol) rare PHQ-2 Answer Date Recorded PHQ-2 Score 0 11/15/2024 [place] Depression Scale Answer Date Recorded [place] Depression Score 1 07/06/2021 Last EPDS Self [...] AM CDT 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 Gender Identity Female 06/03/2022 7:36 AM CDT Sexual Orientation Straight 06/03/2022 7: 36 AM CDT documented as of this encounter Plan of Treatment Not on file documented as of this encounter Visit Diagnoses Not on filedocumented in this encounter Care Teams Maintenance Porter Relationship Specialty [place] [address] [place] [address] PCP - General Family Medicine 03/13/25 Mariana Aocsta PA-C [address] [place] [address] [id number] Assigned Surgical Provider 12/10/24 02/06/25 Purvi Jeong [facility] [address] [place] [address] [phone] Pharmacist Pharmacist Message Broker Developer 01/03/25 Lucas Nuno MD [address] [place] [address] 907425 Assigned Surgical Provider 02/07/25 [facility] [address] [place] [address] 569015 Pharmacist Pharmacist Message Broker Developer 03/20/25 documented as of this encounter
--- OUTSIDE RECORDS SUMMARY | 2025-05-27 15:20 | XMS_ITS | Encounter Summary ---
Author Organization [place] Address [address] [facility] [place] [address] Care Team Providers Care Spray Rig Operator Name Role Phone Mariana Acosta-Noreen Unavailable + [phone] Sarah Juares MD Primary Care Provider [phone] Lucas Nuno MD Unavailable [phone] Mariana Acosta-C Unavailable + [phone] Lucas Nuno MD Unavailable [phone] Mariana Acosta-C Unavailable + [phone] Purvi Jeong [facility] Unavailable [phone] Lucas Nuno MD Unavailable [phone] Meghan Cox [facility] Unavailable [phone] Encounter Details Date Type Department Care Team (Late st Contact Info) Description 10/07/2023 [facility] [place] Medical Advice [facility] [address] 4th [place] [address] Giuliana Masterson Social History Tobacco Use Types Packs/Day Years Used Date Smoking Tobacco: Former Smokeless Tobacco: Never Alcohol Use Standard Drinks/Week Comments Not Currently 0 (1 standard drink = 0.6 oz pur e alcohol) rare PHQ-2 Answer Date Recorded PHQ-2 Score 0 05/12/2023 [place] Depression Scale Answer Date Recorded [place] Depression Score 1 07/06/2021 Last EPDS Self Harm Result Not on file 07/06 Adolescent Education Answer Date Record ed Getting School Help Needed Not on file 07/10 Comments No Sex and Gender Information Value Date Recorded Sex Assigned at Female 06/03/2022 7:36 AM CDT 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 Gender Identity Female 06/03/2022 7:36 AM CDT Sexual Orientation Straight 06/03/2022 7: 36 AM CDT documented as of this encounter Plan of Treatment Not on file documented as of this encounter Visit Diagnoses Not on filedocumented in this encounter Care Teams Spray Rig Operator Relationship Specialty [place] [address] [facility] [place] [address] PCP - General Family Medicine 03/13/25 Mariana Acosta PA-C [address] [address] Assigned Surgical Provider 09/05/22 12/09/23 Lucas Nuno MD [address] [address] Assigned Surgical Provider 12/10/23 01/07/24 Mariana Acosta PA-C [address] [address] Assigned Surgical Provider 01/08/24 03/08/24 Lucas Nuno MD [address] [address] Assigned Surgical Provider 03/09/24 12/09/24 Mariana Acosta PA-C [address] [facility] [address] [place] [address] Assigned Surgical Provider 12/10/24 02/06/25 Purvi Jeong [facility] 9[address] [place], [place] [phone] Pharmacist Pharmacist Barrel Raiser Helper 01/03/25 Lucas Nuno MD [address] 572005 Assigned Surgical Provider 02/07/25 Meghan Cox [place] 9[address] [place], [place] [phone] Pharmacist Pharmacist Barrel Raiser Helper 03/20/25 documented as of this encounter
--- OUTSIDE RECORDS SUMMARY | 2025-05-27 15:20 | XMS_ITS | Encounter Summary ---
Author Organization [place] Address [address] [facility] [place] [address] Care Team Providers Care Felt Strip Finisher Name Role Phone Sarah Juares MD Primary Care Provider [phone] Mariana Acosta PA-C Unavailable + [phone] Purvi Jeong [facility] Unavailable [phone] Lucas Nuno MD Unavailable [phone] Meghan Cox [facility] Unavailable [phone] Encounter Details Date Type Department Care Team (Late st Contact Info) Description 02/02/2025 [facility] Medical Advice [facility] [address] 4th [place] [address] Anastasia Molina, RN Social History Tobacco Use Types Packs/Day Years Used Date Smoking Tobacco: Former Smokeless Tobacco: Never Alcohol Use Standard Drinks/Week Comments Not Currently 0 (1 standard drink = 0.6 oz pur e alcohol) rare PHQ-2 Answer Date Recorded PHQ-2 Score 0 11/15/2024 [place] Depression Scale Answer Date Recorded [place] Depression Score 1 07/06/2021 Last EPDS Self [...] AM CDT 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 Gender Identity Female 06/03/2022 7:36 AM CDT Sexual Orientation Straight 06/03/2022 7: 36 AM CDT documented as of this encounter Plan of Treatment Not on file documented as of this encounter Visit Diagnoses Not on filedocumented in this encounter Care Teams Felt Strip Finisher Relationship Specialty [place] [address] [place] [address] PCP - General Family Medicine 03/13/25 Mariana Acosta PA-C [address] [place] [address] [phone] Assigned Surgical Provider 12/10/24 02/06/25 Purvi Jeong [facility] [address] [place] [address] [phone] Pharmacist Pharmacist Frame Trimmer 01/03/25 Lucas Nuno MD [address] [place] [address] [phone] Assigned Surgical Provider 02/07/25 [facility] [address] [place] [address] [phone] Pharmacist Pharmacist Frame Trimmer 03/20/25 documented as of this encounter
--- OUTSIDE RECORDS SUMMARY | 2025-05-27 15:20 | XMS_ITS | Encounter Summary ---
Author Organization [place] Address [facility] [place] [address] Care Team Providers Care Strategy Planning Consultant Name Role Phone [facility], [facility] Primary Care Provider Leatha Wagner APRN [facility] Unavailable +[phone] Mariana Acosta-C Unavailable + [phone] Sarah Juares MD Primary Care Provider [phone] Lucas Nuno MD Unavailable +- [phone] Mariana AcostaC Unavailable +[phone] Lucas Nuno MD Unavailable +- [phone] Mariana AcostaC Unavailable +[phone] Purvi Jeong [facility] Unavailable [phone] Lucas Nuno MD Unavailable +[phone] Meghan Cox [facility] Unavailable [phone] Encounter Details Date Type Department Care Team (Late st Contact Info) Description 12/17/[address] [facility] Medical Advice [facility] [address] 4th [place] [address] Giuliana Masterson Social History Tobacco Use Types Packs/Day Years Used Date Smoking Tobacco: Former Smokeless Tobacco: Never Alcohol Use Standard Drinks/Week Comments Not Currently 0 (1 standard drink = 0.6 oz pur e alcohol) [place] Depression Scale Answer Date Recorded [place] Depression Score 1 07/06/2021 Last EPDS Self Harm Result Not on file 07/06 Comments No Sex and Gender Information Value Date Recorded Sex Assigned at Female 06/03/2022 7:36 AM CDT 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 Gender Identity Female 06/03/2022 7:36 AM CDT [...] documented as of this encounter Care Teams Strategy Planning Consultant Relationship Specialty Start Date End Date [facility], [facility] [address] [facility] [place] [address] PCP - General 01/02/14 03/23/23 [place] [address] [facility] [place] [address] PCP - General Family Medicine 03/13/25 Leatha Wagner APRN MAIL CARRIER AND CLERK [address] [place] [address] Assigned Surgical Provider 11/02/21 09/04/22 Mariana Acosta PA-C [address] [place] [address] Assigned Surgical Provider 09/05/22 12/09/23 Lucas Nuno MD [address] [address] Assigned Surgical Provider 12/10/23 01/07/24 Mariana Acosta PA-C [address] [address] Assigned Surgical Provider 01/08/24 03/08/24 Lucas Nuno MD [address] [address] Assigned Surgical Provider 03/09/24 12/09/24 Mariana Acosta PA-C [address] [address] Assigned Surgical Provider 12/10/24 02/06/25 Purvi Jeong [facility] [address] [place] [address] Pharmacist Pharmacist Outreach Specialist 01/03/25 Lucas Nuno MD [address] [address] Assigned Surgical Provider 02/07/25 Meghan Cox [facility] [address] [place] [address] Pharmacist Pharmacist Outreach Specialist 03/20/25 documented as of this encounter
--- OUTSIDE RECORDS SUMMARY | 2025-05-27 15:20 | XMS_ITS | Encounter Summary ---
Author Organization [place] Address [facility] [place] [address] Care Team Providers Care Plunger Scoop Operator Name Role Phone [facility], [facility] Primary Care Provider Leatha Wagner APRN [facility] Unavailable [phone] Mariana Acosta-C Unavailable + [phone] Sarah Juares MD Primary Care Provider [phone] Lucas Nuno MD Unavailable +- [phone] Mariana AcostaC Unavailable +[phone] Lucas Nuno MD Unavailable +- [phone] Mariana AcostaC Unavailable [phone] Purvi Jeong [facility] Unavailable [phone] Lucas Nuno MD Unavailable +[phone] Meghan Cox [facility] Unavailable [phone] Encounter Details Date Type Department Care Team (Late st Contact Info) Description 10/22/2021 [facility] Medical Advice [facility] [address] 4th [place] [address] Giuliana Masterson Social History Tobacco Use Types Packs/Day Years Used Date Smoking Tobacco: Former Smokeless Tobacco: Never Alcohol Use Standard Drinks/Week Comments Not Currently 0 (1 standard drink = 0.6 oz pur e alcohol) [place] Depression Scale Answer Date Recorded [place] Depression Score 1 07/06/2021 Last EPDS Self Harm Result Not on file 07/06 Comments No Sex and Gender Information Value Date Recorded Sex Assigned at Female 06/03/2022 7:36 AM CDT 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 Gender Identity Female 06/03/2022 7:36 AM CDT [...] documented as of this encounter Care Teams Plunger Scoop Operator Relationship Specialty Start Date End Date [facility], [facility] [address] [facility] [place] [address] PCP - General 01/02/14 03/23/23 [place] [address] [facility] [place] [address] PCP - General Family Medicine 03/13/25 Leatha Wagner APRN 3D SPECIALIST [address] [place] [address]51 Assigned Surgical Provider 11/02/21 09/04/22 Mariana Acosta PA-C [address] [place] [address] Assigned Surgical Provider 09/05/22 12/09/23 Lucas Nuno MD [address] [address] Assigned Surgical Provider 12/10/23 01/07/24 Mariana Acosta PA-C [address] [address] Assigned Surgical Provider 01/08/24 03/08/24 Lucas Nuno MD [address] [address] Assigned Surgical Provider 03/09/24 12/09/24 Mariana Acosta PA-C [address] [address] Assigned Surgical Provider 12/10/24 02/06/25 Purvi Jeong [facility] [address] [place] [address] Pharmacist Pharmacist Disability Benefits Specialist 01/03/25 Lucas Nuno MD [address] [address] Assigned Surgical Provider 02/07/25 Meghan Cox [facility] [address] [place] [address] Pharmacist Pharmacist Disability Benefits Specialist 03/20/25 documented as of this encounter
--- OUTSIDE RECORDS SUMMARY | 2025-05-27 15:20 | XMS_ITS | Encounter Summary ---
Author Organization [place] Address [address] [facility] [place] [address] Care Team Providers Care Supervisor Extrusion Name Role Phone Sarah Juares MD Primary Care Provider [phone] Lucas Nuno MD Unavailable +[phone] Mariana Acosta PA-C Unavailable + [phone] Purvi Jeong [facility] Unavailable [phone] Lucas Nuno MD Unavailable +[phone] Meghan Cox [facility] Unavailable [phone] Encounter Details Date Type Department Care Team (Late st Contact Info) Description 11/15/2024 MyC Medical Advice [facility]ology [facility] [address] 4th [place] [address] Nelda Mcdaniel Social History Tobacco Use Types Packs/Day Years Used Date Smoking Tobacco: Former Smokeless Tobacco: Never Alcohol Use Standard Drinks/Week Comments Not Currently 0 (1 standard drink = 0.6 oz pur e alcohol) rare PHQ-2 Answer Date Recorded PHQ-2 Score 0 11/15/2024 [place] Depression Scale Answer Date Recorded [place] Depression Score 1 07/06/2021 Last EPDS Self Harm Result Not on file 07/06 Adolescent Education Answer Date Record ed Getting School Help Needed Not on file 07/10 Comments No Sex and Gender Information Value Date Recorded Sex Assigned at Female 06/03/2022 7:36 AM CDT 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 Gender Identity Female 06/03/2022 7:36 AM CDT Sexual Orientation Straight 06/03/2022 7: 36 AM CDT documented as of this encounter Plan of Treatment Not on file documented as of this encounter Visit Diagnoses Not on filedocumented in this encounter Care Teams Supervisor Extrusion Relationship Specialty [place] [address] [place] [address] PCP - General Family Medicine 03/13/25 Lucas Nuno MD [address] [address] Assigned Surgical Provider 03/09/24 12/09/24 Mariana Acosta PA-C [address] 586525 Assigned Surgical Provider 12/10/24 02/06/25 Purvi Jeong [facility] [address] [place] [address] Pharmacist Pharmacist Chute Tapper 01/03/25 Lucas Nuno MD [address] [address] Assigned Surgical Provider 02/07/25 Meghan Cox [facility] 9[address] [place] [address] Pharmacist Pharmacist Chute Tapper 03/20/25 documented as of this encounter
--- OUTSIDE RECORDS SUMMARY | 2025-05-27 15:20 | XMS_ITS | Encounter Summary ---
Author Organization [place] Address [address] [facility] [place] [address] Care Team Providers Care A P Manager Name Role Phone Sarah Juares MD Primary Care Provider [phone] Maraina AcostaC Unavailable + [phone] Purvi Jeong [facility] Unavailable [phone] Lucas Nuno MD Unavailable [phone] Meghan Cox [facility] Unavailable [phone] Encounter Details Date Type Department Care Team (Late st Contact Info) Description 01/09/2025 MyC Medical Advice [facility]astro[facility]ology Clinic [address] 4th [place] [address] Mirna Ibrahim, ELIZABETH Social History Tobacco Use Types Packs/Day Years Used Date Smoking Tobacco: Former Smokeless Tobacco: Never Alcohol Use Standard Drinks/Week Comments Not Currently 0 (1 standard drink = 0.6 oz pur e alcohol) rare PHQ-2 Answer Date Recorded PHQ-2 Score 0 11/15/2024 [place] Depression Scale Answer Date Recorded [place] Depression Score 1 07/06/2021 Last EPDS Self Harm Result Not on file 07/06 Adolescent Education Answer Date Record ed Getting School Help Needed Not on file 07/10 Comments No Sex and Gender Information Value Date Recorded Sex Assigned at Female 06/03/2022 7:36 AM CDT 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 Gender Identity Female 06/03/2022 7:36 AM CDT Sexual Orientation Straight 06/03/2022 7: 36 AM CDT documented as of this encounter Plan of Treatment Not on file documented as of this encounter Visit Diagnoses Not on filedocumented in this encounter Care Teams A P Manager Relationship Specialty [place] [address] [place] [address] PCP - General Family Medicine 03/13/25 Mariana Acosta PA-C [address] [place] [address] Assigned Surgical Provider 12/10/24 02/06/25 Purvi Jeong [facility] [address] [place] [address] Pharmacist Pharmacist Occupational Therapy Supervisor 01/03/25 Lucas Nuno MD [address] [place] [address] Assigned Surgical Provider 02/07/25 Meghan Cox [facility] [address] [place] [address] Pharmacist Pharmacist Occupational Therapy Supervisor 03/20/25 documented as of this encounter
--- OUTSIDE RECORDS SUMMARY | 2025-05-27 15:20 | XMS_ITS | Patient Health Record ---
Author Organization [employer] Address [address] [place] [address] Care Team Providers Care Educational Assistant Name Role Phone Kade Castanon Primary Care Provider Allergies Allergen (clinical drug ingredient) Drug/Non Drug Allergy documented on EMR Reaction Allergy Type Onset Date Status Non-steroidal anti-inflammatory agent (FN) NSAIDS (uncoded) History Gastric Sleeve Allergy Active hydromorphone Dilaudid Unknown Drug Allergy Act len Reason For Referral No Information Medications Medication SIG (Take, Route, Frequency, Duration) Notes Start Date End Date Status Iron Supplement Not- Taking 28-0.8 MG 1 tablet Orally Once a day; Duration: 30 day(s) Not-Hernan ing NuvaRing 0.12-0.015 MG/24HR [address] for 3 weeks, remove, and replace with a new ring after 7 day break Vaginal; Duration: 84 days 09/12/2019 Active Zoloft 50 MG 1 tablet Orally Once a day; Duration: 30 day(s) daily Active Immunizations Vaccine Route Administration Date Status Comme nts Fluzone Quadravalent .5mL syringe IM Intramuscular 07/20/2019 Administered TDAP IM Intramuscular 05/25/2019 Administered Social History Tobacco Use: Social History Observation Description Date Details (start date - stop date) Former Smoker NA - NA Tobacco Use/Smoking Question Answer Notes Are you a former smoker Sexual History Question Answer Notes Had sex in the past 12 months (vaginal, oral, or anal)? 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) Active confirmed Plan Of Treatment Pending Test Test Name Order Date HEMOGLOBIN A1c 05/08/2019 Insurance Providers Payer Name Payer Address Payer Phone Subscriber Number Group Number Insured Name Patient Relationship to Insured Coverage Start Date Coverage End Date BCBS - (Client Bill) [address] NAT LEONARD [id number] KALEB ALEMAN Self - patient is the insured Medical (General) History Medical History History ICD Code Pneumonia Former Smoker Anxiety and Depression Abnormal Pap Smear Post depression Surgical History Surgery Date(Month/Year) Gastric Sleeve 10/13/2016
--- OUTSIDE RECORDS SUMMARY | 2025-05-27 15:20 | XMS_ITS | Encounter Summary ---
Author Organization [place] Address [facility] [place] [address] Care Team Providers Care Brickmason Apprentice Name Role Phone Sarah Juares MD Primary Care Provider [phone] Lucas Nuno MD Unavailable [phone] Mariana Acosta PA-C Unavailable + [phone] Purvi Jeong [facility] Unavailable [phone] Lucas Nuno MD Unavailable [phone] Meghan Cox [facility] Unavailable [phone] Encounter Details Date Type Department Care Team (Late st Contact Info) Description 03/30/2024 MyC Medical Advice [facility] [address] [place] [id number] Veronica Dickinson Social History Tobacco Use Types Packs/Day Years Used Date Smoking Tobacco: Former Smokeless Tobacco: Never Alcohol Use Standard Drinks/Week Comments Not Currently 0 (1 standard drink = 0.6 oz pur e alcohol) rare PHQ-2 Answer Date Recorded PHQ-2 Score 0 05/12/2023 [place] Depression Scale Answer Date Recorded [place] Depression Score 1 07/06/2021 Last EPDS Self Harm Result Not on file 07/06 Adolescent Education Answer Date Record ed Getting School Help Needed Not on file 07/10 Comments No Sex and Gender Information Value Date Recorded Sex Assigned at Female 06/03/2022 7:36 AM CDT 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 Gender Identity Female 06/03/2022 7:36 AM CDT Sexual Orientation Straight 06/03/2022 7: 36 AM CDT documented as of this encounter Plan of Treatment Not on file documented as of this encounter Visit Diagnoses Not on filedocumented in this encounter Care Teams Brickmason Apprentice Relationship Specialty [place] [address] [place] [address] PCP - General Family Medicine 03/13/25 Lucas Nuno MD [address] [address] Assigned Surgical Provider 03/09/24 12/09/24 Mariana Acosta PA-C [address] [address] Assigned Surgical Provider 12/10/24 02/06/25 Purvi Jeong [facility] [address] [place] [address] Pharmacist Pharmacist Benchroom Shop Optician 01/03/25 Lucas Nuno MD [address] [address] Assigned Surgical Provider 02/07/25 Meghan Cox [facility] [address] [place] [address] Pharmacist Pharmacist Benchroom Shop Optician 03/20/25 documented as of this encounter
--- OUTSIDE RECORDS SUMMARY | 2025-05-27 15:20 | XMS_ITS | Encounter Summary ---
Author Organization [employer] Address [address] [place] [address] Care Team Providers Care Corporate Intern Name Role Phone Unknown, Provider Primary Care Provider Unavaila ble Provider, No Primary Primary Care Provider Unava ilable Encounter Details Date Type Department Care Team (Late st Contact Info) Description 08/26/2006 Historical Notes [facility] Family Medicine [address] 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 : 1995 Single/ Language: Undefined/ Ethnicity: Undefined Female History of Present Illness(Lai Carranza MD; 08/27/2006 11:06 AM) Patient's words: Karo is here with problems in school, and anxiety. She has had an IEP. They felt that she has attention problems, and some anxiety. She currently is in the seventh grade. She has been having trouble in school since third or fourth grade. She is getting special education services past medical history . No problems. No noted colic. weight 9 pounds. No problems at delivery. She walked to the year talked. on time. She was in preschool and no problems were noted in kindergarten . She had trouble particularly in the third grade. Her parents were when she was in third grade reading had been difficult. She also had a hard time with motor skills. She has hadan IEP and gets extra help with reading and math, In sixth grade,. sHe was noted to have poor organization, trouble focusing and daydreaming and She also has a lump on the back of her neck. It began when she was playing volleyball. She says it is painful to the touch. Also has some heavy periods. She has had problems with anxiety. She does worry about her parents particularly when her getting . She does not worry about something happening to them now. She previously had some counseling at the time of the divorce. She is not particularly afraid to go places. She is not afraid of having her parents leave the house. The patient is a 11 year old female who presents with a complaint of anxiety. Allergies(Kade Ambrocio LPN; 08/26/2006 5:47 PM) No Known Allergies Family History(Lai Carranza MD; 08/27/2006 9:37 AM) anxiety Mother. aunt, sister ADHD DAd, He beto has had dyslexia and Learning disability in past depression, GGM and G aunt Mom's cousin bipolar disease or schizophrenia no seizure disorder Problem List/Past Medical(Lai Carranza MD; 08/27/2006 9:38 AM) No history of hospitalizations Social History(Lai Carranza MD; 08/27/2006 9:39 AM) parents are . Mom is remarrying soon. currently in 7th grade having problems Medication History(Kade Ambrocio LPN; 08/26/2006 5:47 PM) No Known Medications - Hx Entry. Review of Systems(Lai Carranza MD; 08/27/2006 9:34 AM) General:Not Present- Dietary Changes, Fatigue, Fever, Obesity and Significant Weight Change. Skin:Present- New Lesions. Not Present- Change in Wart/Mole and Rash. HEENT:Not Present- Blurred Vision, Headache, Visual Disturbances, Decreased Hearing, Frequent Coldsand Nasal Congestion. Neck:Not Present- Neck Mass and Neck Pain. Respiratory:Not Present- Cough, Difficulty Breathing and Wheezing. Cardiovascular:Not Present- Fainting / Blacking Out and Shortness of Breath. Gastrointestinal:Present- Abdominal Pain. Not Present- Constipation, Diarrhea, Gas, Nausea and Vomiting. Musculoskeletal:Not Present- Decreased Range of Motion, Joint Pain and Muscle Weakness. Neurological:Present- Headaches. Not Present- Focal Neurological Symptoms. Endocrine:Not Present- Appetite Changes. Hematology:Not Present- Enlarged Lymph Nodes. Vitals(Kade Ambrocio LPN; 08/26/2006 5:48 PM) 08/26/2006, 5:47 PM: Weight: 178 lb Pulse: 78 (Regular) BP: 124/72 Physical Exam(Lai Carranza MD; 08/27/2006 9:41 AM) The physical exam findings are as follows: General Mental Status- Alert. General Appearance- Cooperative. Not in acute distress. Orientation- OrientedX4. Build & Nutrition- Well nourished and Well developed. Gait- Normal. Skin General:- Normal. HEENT Head Head Shape- Normocephalic. Scalp- Normal. Ear Pinna- Bilateral- Normal. Auditory Canal- Bilateral- Normal. Tympanic Membrane- Bilateral- Normal. Eye Fundi- Bilateral- Normal. Sclera/Conjunctiva- Bilateral- Normal. Pupil- Bilateral- Direct reaction to light normal and Equal. Nose & Sinuses- Normal. Mouth & Throat Hard palate- Normal. Soft palate- Normal . Pharynx- Normal. Floor of Mouth- Normal. Neck Carotid Arteries- Bruits not present. Neck- Full range of motion and Supple. No Masses. Note: buffalo hump on back of neck , no specific nodule or mass. tender Trachea- Midline. Thyroid:Gland - Normal size and consistency. Nodules- No Nodules. Chest and Lung Exam Inspection: Chest Wall:- Normal. Shape- Normal and Symmetric. Movements- Symmetrical. Accessory muscles- No use of accessory musclesin breathing. Percussion: Quality and Intensity:- Percussion normal. Palpation:Palpation of the chest reveals - Non-tender. Auscultation: Breath sounds:- Normal. Adventitious sounds:- No Adventitious sounds. Breast- Did not examine. Cardiovascular Palpation/Percussion:Carotid Artery- Bilateral- Normal pulsations. Auscultation:Heart Sounds- S1 WNL and S2 WNL. No S3. Murmurs & Other Heart Sounds:Auscultation of the heart reveals - No Murmurs. Carotid arteries- No Carotid bruit. Abdomen Inspection:Inspection of the abdomen reveals - No Hernias. Palpation/Percussion:Palpation and Percussion of the abdomen reveal - Non Tender and No Palpable abdominal masses. Auscultation:Auscultation of the abdomen reveals - Bowel sounds normal and No Abdominal bruits. Female Genitourinary- Did not examine. Rectal- Did not examine. Peripheral Vascular Upper Extremity:Inspection- Bilateral- Inspection Normal. Palpation:Radial pulse- Bilateral- 2+. Lower Extremity:Inspection- Bilateral- Inspection Normal. Palpation:Tenderness- Bilateral- Non Tender. Femoral pulse- Bilateral- 2+. Edema- Bilateral- No edema. Neurologic Mental Status:Affect- normal and appropriate. Speech- Normal. Thought content/perception- Normal. Cognitive function- Normal. Cranial Nerves: Eye Movements:Gaze- Bilateral- Normal. Nystagmus- Bilateral- None. Sensory:- Normal. Motor: Tone:- Normal. Strength:5/5 normal muscle strength- All Muscles. Plantar Reflexes (L4-S2)- Bilateral- Flexion. Coordination- Normal. Gait- Normal. Musculoskeletal General Movements- Full range of motion in all joints. Joints and Muscles- Normal joints and muscles. Assessment & Plan(Lai Carranza MD; 08/27/2006 11:07 AM) school problems hump Limp she has a history consistent with, attention, problems and, with, anxiety. I do not have enough information to assess which is more significant problem at this time. I will give parents at [place] form and teachers forms will also get a copy of the IEP. I plan to see her back in one to two weeks. She has what appears to be a bump a buffalo hump on the back of her neck. She says it is tender. I will get a CAT scan to make sure there is not a discrete mass. documented in this encounter Plan of Treatment Not on file documented as of this encounter Visit Diagnoses Not on filedocumented in this encounter Care Teams Corporate Intern Relationship Specialty Start Date End Date Unknown, Provider . YESICA PURI [id number] PCP - General 10/07/15 01/30/16 Provider, No Primary . YESICA PURI [id number] PCP - General 01/31/16 documented as of this encounter Additional Source Comments PLEASE NOTE: Replies to this message will not be received.[facility]
--- OUTSIDE RECORDS SUMMARY | 2025-05-27 15:20 | XMS_ITS | Encounter Summary ---
Author Organization [place] Address [facility] [place] [address] Care Team Providers Care Life Skills Worker Name Role Phone [facility] Primary Care Provider Leatha Wagner APRN [facility] Unavailable [phone] Mariana Acosta-C Unavailable + [phone] Sarah Juares MD Primary Care Provider [phone] Lucas Nuno MD Unavailable [phone] Mariana AcostaC Unavailable [phone] Lucas Nuno MD Unavailable +- [phone] Mariana AcostaC Unavailable [phone] Purvi Jeong [facility] Unavailable [phone] Lucas Nuno MD Unavailable [phone] Meghan Cox [facility] Unavailable [phone] Encounter Details Date Type Department Care Team (Late st Contact Info) Description 12/08/2021 [facility] Medical Advice [facility] [address] [place] [address] Rita Gillespie, EMT Social History Tobacco Use Types Packs/Day Years Used Date Smoking Tobacco: Former Smokeless Tobacco: Never Alcohol Use Standard Drinks/Week Comments Not Currently 0 (1 standard drink = 0.6 oz pur e alcohol) [place] Depression Scale Answer Date Recorded [place] Depression Score 1 07/06/2021 Last EPDS Self Harm Result Not on file 07/06 Comments No Sex and Gender Information Value Date Recorded Sex Assigned at Female 06/03/2022 7:36 AM CDT 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 Gender Identity Female 06/03/2022 7:36 AM CDT [...] documented as of this encounter Care Teams Life Skills Worker Relationship Specialty Start Date End Date [facility] [address] [address] [facility] [place] [address] PCP - General 01/02/14 03/23/23 [place] [address] [address] [place] [place] [address] PCP - General Family Medicine 03/13/25 Leatha Wagner APRN PIPE FITTER SOFT COPPER [address] [place] [address] Assigned Surgical Provider 11/02/21 09/04/22 Mariana Acosta PA-C [address] [place] [address] Assigned Surgical Provider 09/05/22 12/09/23 Lucas Nuno MD [address] [address] Assigned Surgical Provider 12/10/23 01/07/24 Mariana Acosta PA-C [address] [address] Assigned Surgical Provider 01/08/24 03/08/24 Lucas Nuno MD [address] [address] Assigned Surgical Provider 03/09/24 12/09/24 Mariana Acosta PA-C [address] [address] Assigned Surgical Provider 12/10/24 02/06/25 Purvi Jeong [facility] [address] [place] [phone] Pharmacist Pharmacist Lapeler 01/03/25 Lucas Nuno MD [address] [place] [address] Assigned Surgical Provider 02/07/25 Meghan Cox [facility] [address] [place] [address] Pharmacist Pharmacist Lapeler 03/20/25 documented as of this encounter
--- OUTSIDE RECORDS SUMMARY | 2025-05-27 15:20 | XMS_ITS | Encounter Summary ---
Author Organization [employer] Address [address] [place] [address] Care Team Providers Care Traffic Manager Name Role Phone Unknown, Provider Primary Care Provider Unavaila ble Provider, No Primary Primary Care Provider Unava ilable Encounter Details Date Type Department Care Team (Late st Contact Info) Description 09/20/2006 Historical Notes [facility] Family Medicine [address] 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 : 1995 Single/ Language: Undefined/ Ethnicity: Undefined Female History of Present Illness(Lai Carranza MD; 09/20/2006 5:21 PM) Patient's words: Follow up IEP. Ralph BENAVIDES The patient is a 11 year old female who presents with a complaint of anxiety. The course has been increasing. The symptoms have been associated with headache. Anxiety notes: Her sister has had anxiety problems in the past with panic attacks. She does worry at 89 and frequently wakes up at night andhas trouble getting back to sleep. She does not have any chest any appetite problems. Mom notes that she does follow her around the house all the time. Mom does fine living with anxiety very difficult. I looked at the IEP. It does suggest attention deficit disorder. Mom notes she was tried on Adderall for it didn't seem to make any difference. At that time. She had seen a psychologist, who felt it not talk to her and off. Her sister had been on Paxil. Allergies(Kade Ambrocio LPN; 09/20/2006 3:37 PM) No Known Allergies Medication History(Kade Ambrocio LPN; 09/20/2006 3:37 PM) No Known Medications - Hx Entry. Vitals(Kade Ambrocio LPN; 09/20/2006 3:38 PM) 09/20/2006, 3:38 PM: Weight: 180 lb Pulse: 84 (Regular) BP: 104/64 Assessment & Plan(Lai Carranza MD; 09/20/2006 5:22 PM) ANXIETY STATE, UNSPECIFIED (300.00) I will refer her to a psychologist to get better documentation of the anxiety. I did give her a Pap. Form to fill out. Mom will fill out any [place] form on attention deficit disorder. I also gaveher teacher forms to her caballero are. At this time. I will not treat her with medication. I plan to follow-up in a month and evaluate with the psychologist has to say 15 of 15 minutes spent in counseli ng Medical Decision Making(Lai Carranza MD; 09/20/2006 5:23 PM) Counseling and Coordination of care was greater than 50% of the visit Total time for visit: 15 minutes documented in this encounter Plan of Treatment Not on file documented as of this encounter Visit Diagnoses Not on filedocumented in this encounter Care Teams Traffic Manager Relationship Specialty Start Date End Date Unknown, Provider . YESICA PURI [address] PCP - General 10/07/15 01/30/16 Provider, No Primary . YESICA PURI [address] PCP - General 01/31/16 documented as of this encounter Additional Source Comments PLEASE NOTE: Replies to this message will not be received.[facility]
--- OUTSIDE RECORDS SUMMARY | 2025-05-27 15:20 | XMS_ITS | Encounter Summary ---
Author Organization [place] Address [address] [place] [address] Care Team Providers Care Career Development Coordinator/Teacher Name Role Phone Sarah Juares MD Primary Care Provider [phone] Lucas Nuno MD Unavailable [phone] Mariana Acosta PA-C Unavailable + [phone] Purvi Jeong [facility] Unavailable [phone] Lucas Nuno MD Unavailable [phone] Meghan Cox [facility] Unavailable [phone] Encounter Details Date Type Department Care Team (Late st Contact Info) Description 11/16/2024 MyC Medical Advice [facility] [address] [place] [address] Anastasia Molina, RN Social History Tobacco Use Types Packs/Day Years Used Date Smoking Tobacco: Former Smokeless Tobacco: Never Alcohol Use Standard Drinks/Week Comments Not Currently 0 (1 standard drink = 0.6 oz pur e alcohol) rare PHQ-2 Answer Date Recorded PHQ-2 Score 0 11/15/2024 [place] Depression Scale Answer Date Recorded [place] Depression Score 1 07/06/2021 Last EPDS Self Harm Result Not on file 07/06 Adolescent Education Answer Date Record ed Getting School Help Needed Not on file 07/10 Comments No Sex and Gender Information Value Date Recorded Sex Assigned at Female 06/03/2022 7:36 AM CDT 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 Gender Identity Female 06/03/2022 7:36 AM CDT Sexual Orientation Straight 06/03/2022 7: 36 AM CDT documented as of this encounter Plan of Treatment Not on file documented as of this encounter Visit Diagnoses Not on filedocumented in this encounter Care Teams Career Development Coordinator/Teacher Relationship Specialty [place] [address] [place] [address] PCP - General Family Medicine 03/13/25 Lucas Nuno MD [address] [address] Assigned Surgical Provider 03/09/24 12/09/24 Mariana Acosta PA-C [address] [address]32[address] Assigned Surgical Provider 12/10/24 02/06/25 Purvi Jeong [facility] [address] [place] [address] Pharmacist Pharmacist Coremaking Supervisor 01/03/25 Lucas Nuno MD [address] [address] Assigned Surgical Provider 02/07/25 Meghan Cox [facility] [address] [place] [address] Pharmacist Pharmacist Coremaking Supervisor 03/20/25 documented as of this encounter
--- OUTSIDE RECORDS SUMMARY | 2025-05-27 15:20 | XMS_ITS | Encounter Summary ---
Author Organization [place] Address [facility] [place] [place] [address] Care Team Providers Care Global Director Air And Climate Change Name Role Phone [facility], [facility] Primary Care Provider Mariana Acosta PA-C Unavailable + [phone] Sarah Juares MD Primary Care Provider [phone] Lucas Nuno MD Unavailable +[phone] Mariana Acosta PA-C Unavailable +[phone] Lucas Nuno MD Unavailable +[phone] Mariana Acosta PA-C Unavailable +[phone] Purvi Jeong [facility] Unavailable [phone] Lucas Nuno MD Unavailable [phone] Meghan Cox [facility] Unavailable [phone] Encounter Details Date Type Department Care Team (Late st Contact Info) Description 02/17/2023 [facility] [address] 4[address] [place] [address] Paulina Denny RN Social History Tobacco Use Types Packs/Day Years Used Date Smoking Tobacco: Former Smokeless Tobacco: Never Alcohol Use Standard Drinks/Week Comments Not Currently 0 (1 standard drink = 0.6 oz pur e alcohol) rare [place] Depression Scale Answer Date Recorded [place] Depression Score 1 07/06/2021 Last EPDS Self Harm Result Not on file 07/06 Comments No Sex and Gender Information Value Date Recorded Sex Assigned at Female 06/03/2022 7:36 AM CDT 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 Gender Identity Female 06/03/2022 7:36 AM CDT [...] documented as of this encounter Care Teams Global Director Air And Climate Change Relationship Specialty Start Date End Date [facility], [facility] [address] [place] [address] PCP - General 01/02/14 03/23/23 [place] [address] [place] [address] PCP - General Family Medicine 03/13/25 Mariana Acosta PA-C [address] [place] [address] [phone] Assigned Surgical Provider 09/05/22 12/09/23 Lucas Nuno MD [address] [address] Assigned Surgical Provider 12/10/23 01/07/24 Mariana Acosta PA-C [address] [place] [address] [phone] Assigned Surgical Provider 01/08/24 03/08/24 Lucas Nuon MD [address] [place] [phone] Assigned Surgical Provider 03/09/24 12/09/24 Mariana Acosta PA-C [address] [place] [address] Assigned Surgical Provider 12/10/24 02/06/25 Purvi Jeong [facility] [address] [place] [phone] Pharmacist Pharmacist E Commerce Manager 01/03/25 Lucas Nuno MD [address] [place] [address] Assigned Surgical Provider 02/07/25 Meghan Cox [facility] [address] [place] [address] Pharmacist Pharmacist E Commerce Manager 03/20/25 documented as of this encounter
--- OUTSIDE RECORDS SUMMARY | 2025-05-27 15:21 | XMS_ITS | Encounter Summary ---
Author Organization [place] Address [facility] [place] [address] Care Team Providers Care Oncology Physician Assistant Name Role Phone [facility], [facility] Primary Care Provider Leatha Wagner APRN [facility] Unavailable [phone] Mariana Acosta-C Unavailable + [phone] Sarah Juares MD Primary Care Provider [phone] Lucas Nuno MD Unavailable +- [phone] Mariana AcostaC Unavailable +[phone] Lucas Nuno MD Unavailable [phone] Mariana AcostaC Unavailable +[phone] Purvi Jeong [facility] Unavailable [phone] Lucas Nuno MD Unavailable [phone] Meghan Cox [facility] Unavailable [phone] Encounter Details Date Type Department Care Team (Late st Contact Info) Description 07/10/2022 [facility] [place] [address] [facility] 4th [place] [address] Lucas Nuno MD [address] [place] [address] [address] [place] [address] Social History Tobacco Use Types Packs/Day Years Used Date Smoking Tobacco: Former Smokeless Tobacco: Never Alcohol Use Standard Drinks/Week Comments Not Currently 0 (1 standard drink = 0.6 oz pur e alcohol) rare [place] Depression Scale Answer Date Recorded [place] Depression Score 1 07/06/2021 Last EPDS Self Harm Result Not on file 07/06 Comments No Sex and Gender Information Value Date Recorded Sex Assigned at Female 06/03/2022 7:36 AM CDT 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 No / Unsure 07/09/2022 8:11 AM CDT documented as of this encounter Plan of Treatment Not on file documented as of this encounter Visit Diagnoses Not on filedocumented in this encounter Additional Health Concerns Infection Onset Date Last Indicated Resolved Time Rule Out COVID-19 04/19/2023 04/19/2023 04/19/2023 5:29 AM CDT documented as of this encounter Care Teams Oncology Physician Assistant Relationship Specialty Start Date End Date [facility], [facility] [address] [place] [address] PCP - General 01/02/14 03/23/23 [place] [address] [place] [address] PCP - General Family Medicine 03/13/25 Leatha Wagner APRN MEDICAID BUSINESS ANALYST [address] [place] [address] Assigned Surgical Provider 11/02/21 09/04/22 Mariana Acosta PA-C [address] [place] [address] [address] Assigned Surgical Provider 09/05/22 12/09/23 Lucas Nuno MD [address] [address] Assigned Surgical Provider 12/10/23 01/07/24 Mariana Acosta PA-C [address] [address] Assigned Surgical Provider 01/08/24 03/08/24 Lucas Nuno MD [address] [address] Assigned Surgical Provider 03/09/24 12/09/24 Mariana Acosta PA-C [address] [address] Assigned Surgical Provider 12/10/24 02/06/25 Purvi Jeong [facility] [address] [place] [phone] Pharmacist Pharmacist Contract Management Specialist 01/03/25 Lucas Nuno MD [address] [place] [address] [address] Assigned Surgical Provider 02/07/25 Meghna Cox [facility] [address] [place] [address] [phone] Pharmacist Pharmacist Contract Management Specialist 03/20/25 documented as of this encounter
--- OUTSIDE RECORDS SUMMARY | 2025-05-27 15:21 | XMS_ITS | Encounter Summary ---
Author Organization [place] Address [address] [facility] [place] [address] Care Team Providers Care Typesetter Perforator Operator Name Role Phone Sarah Juares MD Primary Care Provider [phone] Purvi Jeong [facility] Unavailable [phone] Lucas Nuno MD Unavailable [phone] Meghan Cox [facility] Unavailable [phone] Encounter Details Date Type Department Care Team (Late st Contact Info) Description 05/06/2025 MyC Medical Advice [facility] [place] [address] [facility] [address]th [place] [address] Mariana Acosta, ANABELLEC [address] [facility] [address] [place] [address] Social History Tobacco Use Types Packs/Day Years Used Date Smoking Tobacco: Former Smokeless Tobacco: Never Alcohol Use Standard Drinks/Week Comments Not Currently 0 (1 standard drink = 0.6 oz pur e alcohol) rare PHQ-2 Answer Date Recorded PHQ-2 Score 0 02/22/2025 [place] Depression Scale Answer Date Recorded [place] Depression Score 1 07/06/2021 Last EPDS Self [...] Date Recorded Do you have housing? 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 Gender Identity Female 06/03/2022 7:36 AM CDT Sexual Orientation Straight 06/03/2022 7: 36 AM CDT documented as of this encounter Plan of Treatment Not on file documented as of this encounter Visit Diagnoses Not on filedocumented in this encounter Care Teams Typesetter Perforator Operator Relationship Specialty [place] [address] [place] [address] PCP - General Family Medicine 5/27/25 Purvi Jeong RPH [address] [place] [address] [phone] Pharmacist Pharmacist Pocketed Spring Machine Operator 01/03/25 Lucas Nuno MD [address] [place] [address] [phone] Assigned Surgical Provider 02/07/25 Meghan Cox RPH [address] [place] [address] [phone] Pharmacist Pharmacist Pocketed Spring Machine Operator 03/20/25 documented as of this encounter
--- OUTSIDE RECORDS SUMMARY | 2025-05-27 15:21 | XMS_ITS | Encounter Summary ---
Author Organization [employer] Address [address] [facility] [place] [address] Care Team Providers Care Bond Broker Name Role Phone Sarah Juares MD Primary Care Provider [phone] Purvi Jeong [facility] Unavailable [phone] Lucas Nuno MD Unavailable [phone] Meghan Cox [facility] Unavailable [phone] Encounter Details Date Type Department Care Team (Late st Contact Info) Description 04/12/2025 Orders Only [facility] [address] [place] [address] Anastasia Molina, RN Social History Tobacco Use Types Packs/Day Years Used Date Smoking Tobacco: Former Smokeless Tobacco: Never Alcohol Use Standard Drinks/Week Comments Not Currently 0 (1 standard drink = 0.6 oz pur e alcohol) rare PHQ-2 Answer Date Recorded PHQ-2 Score 0 02/22/2025 [place] Depression Scale Answer Date Recorded [place] Depression Score 1 07/06/2021 Last EPDS Self [...] in an abandoned building, in an overnight snf, or couch-surfing.) Yes 03/21/2025 Are you worried [...] AM CDT 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 Gender Identity Female 06/03/2022 7:36 AM CDT Sexual Orientation Straight 06/03/2022 7: 36 AM CDT documented as of this encounter Progress Notes * Anastasia Molina RN - 04/12/2025 2:21 PM CDT Erroneous encounter documented in this encounter Plan of Treatment Not on file documented as of this encounter Visit Diagnoses Not on filedocumented in this encounter Care Teams Bond Broker Relationship Specialty [place] [address] [address] [address] PCP - General Family Medicine 03/13/25 Purvi Jeong RPH [address] [place] [phone] Pharmacist Pharmacist Hair Spinning Machine Operator 01/03/25 Lucas Nuno MD [address] [place] [address] Assigned Surgical Provider 02/07/25 Meghan Cox RPH [address] [place] [phone] Pharmacist Pharmacist Hair Spinning Machine Operator 03/20/25 documented as of this encounter
--- OUTSIDE RECORDS SUMMARY | 2025-05-27 15:21 | XMS_ITS | Encounter Summary ---
Author Organization [place] Address [address] [facility] [place] [address] Care Team Providers Care Relief Pilot Name Role Phone Sarah Juares MD Primary Care Provider [phone] Purvi Jeong [facility] Unavailable [phone] Lucas Nuno MD Unavailable [phone] Meghan Cox [facility] Unavailable [phone] Encounter Details Date Type Department Care Team (Late st Contact Info) Description 03/21/[address] [facility] [address] [place] [address] Anastasia Molina, RN Social History Tobacco Use Types Packs/Day Years Used Date Smoking Tobacco: Former Smokeless Tobacco: Never Alcohol Use Standard Drinks/Week Comments Not Currently 0 (1 standard drink = 0.6 oz pur e alcohol) rare PHQ-2 Answer Date Recorded PHQ-2 Score 0 02/22/2025 [place] Depression Scale Answer Date Recorded [place] Depression Score 1 07/06/2021 Last EPDS Self [...] in an abandoned building, in an overnight custodial, or couch-surfing.) Yes 03/21/2025 Are you worried [...] AM CDT 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 Gender Identity Female 06/03/2022 7:36 AM CDT Sexual Orientation Straight 06/03/2022 7: 36 AM CDT documented as of this encounter Plan of Treatment Not on file documented as of this encounter Visit Diagnoses Not on filedocumented in this encounter Care Teams Relief Pilot Relationship Specialty [place] [address] [place] [address] PCP - General Family Medicine 03/13/25 Purvi Jeong RPH [address] [place] [address] Pharmacist Pharmacist Pigment Furnace Tender 01/03/25 Lucas Nuno MD [address] [place] [phone] Assigned Surgical Provider 02/07/25 Meghan Cox RPH [address] [place] [phone] Pharmacist Pharmacist Pigment Furnace Tender 03/20/25 documented as of this encounter
--- OUTSIDE RECORDS SUMMARY | 2025-05-27 15:21 | XMS_ITS | Clinical Summary ---
Author Organization [place] Address [address] [facility] 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 Penicillins Rash Low 01/02/2014 PENICILLINS Sulfa Antibiotics Other (See Comments),Rash Low 01/31/2016 Not sure of reaction but was in the hospital because of it. Tramadol Rash Medium 05/07/2023 Medications ferrous sulfate (FE TABS) 325 (65 Fe) MG EC tablet Take 325 mg by mouth 2 times daily. Active pantoprazole (PROTONIX) 40 MG EC tabletIndicatio ns:Eosinophilic esophagitis Take 1 tablet (40 mg) by mouth daily 90 tablet 3 12/16/19 24 Active Additional Information Patient taking differently:40 mg OralEVERY MORNING, Reported on 03/29/2025 doxycycline monohydrate (ADOXA) 100 MG tablet Take 100 mg by mouth 2 times daily Active multivitamin, therapeutic (THERA-VIT) TABS tablet Take 1 tablet by mouth every morning. Active potassium 99 MG TABS Take 1 tablet by mouth every morning. Active folic acid (FOLVITE) 1 MG tablet Take 2 mg by mouth every morning. 07/04/20 24 Active escitalopram (LEXAPRO) 10 MG tablet Take 10 mg by mouth every evening. 01/24/20 25 Active acetaminophen (TYLENOL) 325 MG tabletIndicatio ns:Hiatal hernia,History of repair of hiatal hernia Take 2 tablets (650 mg) by mouth every 4 hours as needed for mild pain. 50 tablet 03/13/20 25 Active tiZANidine (ZANAFLEX) 4 MG tabletIndicatio ns:Hiatal hernia Take 1 tablet (4 mg) by mouth 3 times daily as needed for muscle spasms. 30 tablet 03/15/20 25 Active tirzepatide-yolanda ght management (ZEPBOUND) 5 MG/0.5ML vial Inject 5 mg subcutaneously once a week. Active diphenhydrAMINE (BENADRYL) 25 MG capsuleIndicati ons:Acute post-operative pain Take 1 capsule (25 mg) by mouth every 6 hours as needed for itching. 30 capsule 03/23/20 25 Active ondansetron (ZOFRAN ODT) 4 MG ODT tabIndications: Acute post-operative pain Take 1 tablet (4 mg) by mouth every 8 hours as needed for nausea or vomiting. 30 tablet 1 03/23/20 25 Active polyethylene glycol (MIRALAX) 17 GM/Dose powderIndicatio ns:Constipation , unspecified constipation type Take 17 g (1 Capful) by mouth daily. 510 g 1 03/23/20 25 Active sucralfate (CARAFATE) 1 GM/10ML suspensionIndic ations:Acute post-operative pain Take 10 mLs (1 g) by mouth 4 times daily (before meals and nightly). 473 mL 2 03/23/20 25 Active HYDROmorphone (DILAUDID) 2 MG tabletIndicatio ns:Acute post-operative pain Take 1 tablet (2 mg) by mouth every 4 hours as needed for severe pain. 42 tablet 03/23/20 25 Active naloxone (NARCAN) 4 MG/0.1ML nasal sprayIndication s:Acute post-operative pain [place] 1 spray (4 mg) into one nostril alternating nostrils as needed for opioid reversal. every 2-3 minutes until assistance arrives 2 each 1 03/23/20 25 Active bisacodyl (DULCOLAX) 10 MG suppositoryIndi cations:Constip ation, unspecified constipation type Place 1 suppository (10 mg) rectally daily as needed for constipation. 28 suppository 1 03/26/20 25 Active hydrOXYzine HCl (ATARAX) 25 MG tabletIndicatio ns:Acute post-operative pain Take 1 tablet (25 mg) by mouth every 6 hours as needed for anxiety (adjuvant pain). 20 tablet 1 03/26/20 25 Active senna-docusate (EASY-LAX PLUS) 8.6-50 MG tabletIndicatio ns:Constipation , unspecified constipation type Take 1 tablet by mouth 2 times daily as needed for constipation. 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 Hematemesis with nausea 04/19/2023 Abdominal pain, unspecified abdominal location 0 04/19/2023 Anemia, unspecified type 04/19/2023 Chest pain, unspecified type 04/19/2023 Chronic pulmonary embolism w ithout acute cor pulmonale, unspecified pulmonary embolism type 04/19/2023 Cough, unspecified type 04/19/2023 Morbid obesity 06/03/2022 S/P laparoscopic sleeve gastrectomy 10/23/2021 Overview (10/23/2021): Sleeve 2016- [facility] Assessment & Plan (12/09/2021 6:41 PM CONTINUOUS DRIER OPERATOR): 10% improvement of reflux (perecieved) since adding [...] labs and ultrasound Follow up 2-3 months Assessment & Plan (10/23/2021 5:11 PM CONTINUOUS DRIER OPERATOR): 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 Did great first 3 years postop. No issues. No hx of HH or GERD preop. Onset of GERD with hyperemesis during . Symptoms got worse after . EGD done 07/2020 which showed grade B esophagitis and 3cm HH. Treated with omeprazole 20mg BID without any benefit. carafate made her sick and could not continue. Has been treating with tums since onset of second in 2020. Delievered 06/2021. Feels miserable. Limited po options due to GERD. Symptoms are nearly constant but significantly worse when lying down and eating trigger foods. She is only taking tums for this now but can consume a bottle of tums in a couple of days. Denies regular NSAID use, caffeine once daily, no smoking, rare alcohol, rare carbonation. No change in stress. In 2019 was reporting some hematemesis but this is not currently the case. Does feel she is still anemic from her - chronic issue for her. There was a recommendation for US to rule out cholelithiasis but it does not appear this was done. Plan: Omeprazole twice daily 40mg pepcid twice daily Tums PRN Bariatric labs Consider abdominal ultrasound Consider repeat EGD in the future Gastroesophageal reflux dise ase with esophagitis, unspecified whether hemorrhage 10/23/2021 Labor and delivery indication for care or interv ention 07/04/2021 Encounter for triage in patient 021 Anemia complicating in third trimester 06/26/2019 Community acquired pneumonia 05/16/2014 Encounters Date Type Department Care Team Description 05/06/2025 MyC Medical Advice [facility] [address] [phone] Mariana Acosta PA-C 04/12/2025 Care Coordination [facility] [address] [phone] Anastasia Molina RN 04/12/2025 Orders Only [facility] [address] [phone] Anastasia Molina RN 04/12/2025 MyC Medical Advice [facility] [address] [phone] Lucas Nuno MD 03/29/2025 8:30 AM CDT Virtual Visit [facility] [address] [phone] Lucas Nuno MD Large hiatal hernia (Primary Dx) 03/29/2025 MyC Medical Advice [facility] Surgery [address] [phone] Lucas Nuno MD 03/28/2025 Results Follow-Up [facility] [address] [phone] Mariana Acosta PA-C Subj: Message about your results 03/26/2025 Orders Only [facility] [address] [phone] Anastasia Molina RN Constipation, unspecified constipation type; Acute post-operative pain; Hiatal hernia; History of repair of hiatal hernia 03/26/2025 MyC Medical Advice [facility] [address] [phone] Lucas Nuno MD Clinic Care Coordination - Follow-up (medi... 03/26/2025 Telephone [facility] [address] [phone] Lucas Nuno MD Clinic Care Coordination - Follow-up (medications) 03/23/2025 MyC Medical Advice [facility] Surgery [address] [phone] Lucas Nuno MD 03/21/2025 MyC Medical Advice [facility] [address] [phone] Anastasia Molina RN 03/20/2025 Telephone [facility] [address] [phone] Mariana Acosta PA-C Prior Auth - Medication (Zepbound is Excluded on pt's new insurance plan ) 03/20/2025 [facility] [place] [facility] [address] [phone] Anastasia Molina RN 03/20/2025 Refill [facility]ty [address] [phone] Meghan Cox Melody Refill Request (ZEPBOUND 7.5 MG/0.5 ML PEN) 03/20/2025 Refill [facility] [address] [phone] Mariana Acosta PA-C Medication Refill 03/19/2025 2:26 PM CDT - 03/23/2025 4:39 PM CDT Hospital Encounter [facility] Observation Dept [address] [place] [phone] Heather Manley MD Cheng, Wenlan, MD Southgate, Samuel, MD Wu Klasek, Connie, MD Jonkman, Tracy Dianne, MD Roach, MD Juanpalbo Millard Seema, MD Acute post-operative pain (Primary Dx); Generalized abdominal pain; Fever in adult; Acute superficial gastritis without hemorrhage; Constipation, unspecified constipation type Discharge Disposition: Home or Self Care 03/19/2025 MyC Medical Advice [facility] [address] [phone] Lucas Nuno MD 03/19/2025 Travel 03/17/2025 10:30 AM CDT Virtual Visit [facility] [address] [phone] Eloina Condon CNP Pain associated with surgical procedure (Primary Dx) 03/15/2025 Orders Only [facility] [address] [phone] Anastasia Molina RN Hiatal hernia (Primary Dx) 03/14/2025 [facility] Medical Advice [address] [phone] Lucas Nuno MD 03/13/2025 2:38 PM CDT Anesthesia Event [facility] [address] [place] [phone] Dali Eduardo MD Pizzuto, David, MD 03/13/2025 2:05 PM CDT - 03/13/2025 4:05 PM CDT Surgery [facility] [address] [place] [phone] Lucas Nuno MD Laparoscopic hiatal hernia repair; cruropexy posteriorly; bilateral esophagocruropexy 03/13/2025 11:04 AM CDT - 03/13/2025 7:56 PM CDT Hospital Encounter [facility] Same Day Surgery [address] [place] [phone] Lucas Nuno MD History of repair of hiatal hernia (Primary Dx); Hiatal hernia; IVC thrombosis (H) Discharge Disposition: Home or Self Care 03/07/2025 12:45 PM CDT Lab [facility] [address] [place] [address] S/P laparoscopic sleeve gastrectomy; Preop examination; Hiatal hernia; Anemia, unspecified type; History of blood transfusion 03/07/2025 Travel from Last 3 Months Family History Medical History Relation Comments No Known Problems Father Lung Cancer Maternal Grandfather Colon Cancer Maternal Grandmother No Known Problems Mother No Known Problems Sister 1 No Known Problems Sister 2 Anesthesia Reaction No family hx of Bleeding Disorder No family hx of Clotting Disorder No family hx of Relation Status Comments Father Alive Maternal Grandfather Alive Maternal Grandmother Mother Alive Paternal Grandfather Paternal Grandmother Alive Sister 1 Alive Sister 2 Alive Social History Tobacco Use Types Packs/Day Years Used Date Smoking Tobacco: Former Smokeless Tobacco: Never Tobacco Cessation:Counseling Given: Not Answered Alcohol Use Standard Drinks/Week Comments Not Currently 0 (1 standard drink = 0.6 oz pur e alcohol) rare PHQ-2 Answer Date Recorded PHQ-2 Score 0 02/22/2025 [place] Depression Scale Answer Date Recorded [place] Depression Score 1 07/06/2021 Last EPDS Self [...] in an abandoned building, in an overnight correction, or couch-surfing.) Yes 03/21/2025 Are you worried [...] AM CDT 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 CONTINUOUS DRIER OPERATOR Gender Identity Female 06/03/2022 7:36 AM CDT Sexual Orientation Straight 06/03/2022 7: 36 AM CDT Last Filed Vital Signs Vital Sign Reading Time Taken Comments Blood Pressure 125/72 03/23/2025 3:48 PM CDT Pulse 85 03/23/2025 3:48 PM CDT Temperature 36.7 C (98 F) 03/23/2025 3:48 PM CDT Respiratory Rate 16 03/23/2025 3:48 PM CDT Oxygen Saturation 95% 03/23/2025 3:48 PM CDT Inhaled Oxygen Concentration - - Weight 115.2 kg (254 lb) 03/29/2025 8:33 AM CDT Pt reported Height 175.3 cm (5' 9) 03/29/2025 8:33 AM CDT Body Mass Index 37.51 03/29/2025 8:33 AM CDT Plan of Treatment Health Maintenance Due Date Last Done Comments ADVANCE CARE PLANNING 1994 ANNUAL REVIEW OF HM ORDERS 1994 YEARLY PREVENTIVE VISIT 1997 HEPATITIS B VACCINE (3 of 3 - 3-dose series) 12/09/2006 10/14/2006, 06/09/2006 HPV VACCINE (3 - 3-dose series) 12/09/2012 08/31/2012, 06/08/2012 PAP 12/20/2023 12/19/2020, 10/19, 08/08/2010 COVID-19 VACCINE ( season) 2024 12/26/2021, 06/26/2021, 05/27/2021 INFLUENZA VACCINE (#1) 2025 07/20/2019, 2018 DTAP/TDAP/TD VACCINE (5 - Td or Tdap) 05/25/2029 05/25/2019, 09/28/2016, 06/09/2006, Additional history exists ZOSTER VACCINE (1 of 2) 2044 HIV SCREENING Completed 12/19/2020, 0301/2021, 12/01/2018 HEPATITIS C SCREENING Completed 05/22/2021 PHQ-2 (once per calendar year) Completed 02/22/2025, 11/15/2024, 05/12/2023 MENINGITIS VACCINE Aged Out No longer eligible based on patient's age to complete this topic PNEUMOCOCCAL VACCINE: PEDIATRICS (0 to 5 YEARS) AND AT-RISK PATIENTS (6 to 49 YEARS) Aged Out No longer eligible based on patient's age to complete this topic Procedures Procedure Name Priority Date/Time Associated Diagnosis Comments ROUTINE UA WITH MICROSCOPIC REFLEX TO CULTURE Routine 03/23/2025 11:19 AM CDT CBC WITH PLATELETS & DIFFERENTIAL STAT 03/22/2025 5:48 AM CDT CBC WITH PLATELETS AND DIFFERENTIAL STAT 03/22/2025 5:48 AM CDT COMPREHENSIVE METABOLIC PANEL Routine 03/22/2025 5:48 AM CDT GLUCOSE BY METER STAT 03/20/2025 8:19 AM CDT CBC WITH PLATELETS & DIFFERENTIAL STAT 03/20/2025 7:48 AM CDT CBC WITH PLATELETS AND DIFFERENTIAL STAT 03/20/2025 7:[address] ABDOMEN PELVIS W CONTRAST STAT 03/19/2025 8:15 PM CDT BLOOD CULTURE STAT 03/19/2025 6:01 PM CDT BLOOD CULTURE STAT 03/19/2025 5:48 PM CDT LACTIC ACID WHOLE BLOOD STAT 03/19/2025 5:48 PM CDT LACTIC ACID WHOLE BLOOD WITH 1X REPEAT IN 2 HR WHEN >2 STAT 03/19/2025 4:[address] CHEST PE ABDOMEN PELVIS W CONTRAST STAT 03/19/2025 4:36 PM CDT ROUTINE UA WITH MICROSCOPIC REFLEX TO CULTURE STAT 03/19/2025 3:57 PM CDT EKG 12-LEAD, TRACING ONLY STAT 03/19/2025 2:31 PM CDT CBC WITH PLATELETS & DIFFERENTIAL STAT 03/19/2025 2:20 PM CDT CBC WITH PLATELETS AND DIFFERENTIAL STAT 03/19/2025 2:20 PM CDT EXTRA RED TOP TUBE STAT 03/19/2025 2: 20 PM CDT EXTRA BLUE TOP TUBE STAT 03/19/2025 2 :20 PM CDT BASIC METABOLIC PANEL STAT 03/19/2025 2:20 PM CDT EXTRA TUBE STAT 03/19/2025 2:20 PM CDT XR CHEST PORT 1 VIEW STAT 03/13/2025 4:57 PM CDT ANE AIRWAY ETT PERFORMABLE Routine 03/13/2025 2:55 PM CDT HERNIORRHAPHY, HIATAL, LAPAROSCOPIC 03/13/2025 2:42 PM CDT Hiatal hernia Special Needs PAC 02/22/25Patient reports difficult IV sticks at timesHX of BLE blood clots & anemia issues ABO/RH TYPE AND SCREEN Routine 03/07/2025 12:49 PM CDT Preop examination Hiatal hernia Anemia, unspecified type History of blood transfusion TYPE AND SCREEN, ADULT Routine 03/07/2025 12:49 PM CDT Preop examination Hiatal hernia Anemia, unspecified type History of blood transfusion PARATHYROID HORMONE INTACT Routine 03/07/2025 12:49 PM CDT Preop examination Hiatal hernia Anemia, unspecified type History of blood transfusion CBC WITH PLATELETS Routine 03/07/2025 12:49 PM CDT Preop examination Hiatal hernia Anemia, unspecified type History of blood transfusion VITAMIN A Routine 03/07/2025 12:49 PM CDT S/P laparoscopic sleeve gastrectomy VITAMIN B12 Routine 03/07/2025 12:49 PM CDT S/P laparoscopic sleeve gastrectomy VITAMIN D DEFICIENCY SCREENING Routine 03/07/2025 12:49 PM CDT S/P laparoscopic sleeve gastrectomy LIPID REFLEX TO DIRECT LDL PANEL Routine 03/07/2025 12:49 PM CDT S/P laparoscopic sleeve gastrectomy HEMOGLOBIN A1C Routine 03/07/2025 12:49 PM CDT S/P laparoscopic sleeve gastrectomy COMPREHENSIVE METABOLIC PANEL Routine 03/07/2025 12:49 PM CDT S/P laparoscopic sleeve gastrectomy HIV 1&2 ANTIBODY (EXTERNAL RESULT) Routine 12/19/2020 9:24 AM CONTINUOUS DRIER OPERATOR from Last 3 Months or Most Recently Relevant to Health Maintenance Results * (ABNORMAL) UA with Microscopic reflex to Culture (03/23/2025 11:19 AM CDT) Only the most recent of2 resultswithin the time period is included. Color Urine Yellow Colorless, Straw, Light Yellow, Yellow 03/23/2025 11:32 AM CDT LABORATORY Appearance Urine Clear Clear 03/23/20 11:32 AM CDT LABORATORY Glucose Urine Negative Negative mg/dL 03/23/2025 11:32 AM CDT LABORATORY Bilirubin Urine Negative Negative 11:32 AM CDT LABORATORY Ketones Urine 20(A) Negative mg/dL 03/23/2025 11:32 AM CDT LABORATORY Specific [place] Urine 1.011 1.003 - 1.035 03/23/2025 11:32 AM CDT LABORATORY Blood Urine Negative Negative 03/23/2025 11:32 AM CDT LABORATORY pH Urine 5.5 5.0 - 7.0 03/23/2025 11:32 AM CDT LABORATORY Protein Albumin Urine Negative Negative mg/dL 03/23/2025 11:32 AM CDT LABORATORY Urobilinogen Urine Normal Normal mg/dL 03/23/2025 11:32 AM CDT LABORATORY Nitrite Urine Negative Negative 03/23/2025 11:32 AM CDT LABORATORY Leukocyte Esterase Urine Trace(A) Negative 03/23/2025 11:32 AM CDT LABORATORY Bacteria Urine Few(A) None Seen /HPF 03/23/2025 11:32 AM CDT LABORATORY Mucus Urine Present(A) None Seen /LPF 03/23/2025 11:32 AM CDT LABORATORY RBC Urine 1 <=2 /HPF 03/23/2025 11:32 AM CDT LABORATORY WBC Urine 2 <=5 /HPF 03/23/2025 11:32 AM CDT LABORATORY Squamous Epithelials Urine 5(H) <=1 /HPF 03/23/2025 11:32 AM CDT LABORATORY Urine URINE SPECIMEN OBTAINED BY CLEAN CATCH PROCEDURE / Unknown Non-blood Collection / Unknown 03/23/2025 11:19 AM CDT 03/23/2025 11:23 AM CDT Narrative [facility] - 03/23/2025 11:32 AM CDT Urine Culture not indicated us Zeynep Hill MD LAB - URINE ORDERABLES Fi nal Result [facility] Lab [address] Lab (1st floor, no room number) [place] [address], [place] * (ABNORMAL) CBC with platelets and differential (03/22/2025 5:48 AM CDT) Only the most recent of3 resultswithin the time period is included. WBC Count 4.3 4.0 - 11.0 10e3/uL 03/22/2025 5:57 AM CDT [facility] RBC Count 2.94(L) 3.80 - 5.20 10e6/uL 03/22/2025 5:57 AM CDT [facility] Hemoglobin 11.4(L) 11.7 - 15.7 g/dL 03/22/2025 5:57 AM CDT [facility] Hematocrit 32.6(L) 35.0 - 47.0 % 03/22/2025 5:57 AM CDT [facility] MCV 111(H) 78 - 100 fL 03/22/2025 5:57 AM CDT [facility] MCH 38.8(H) 26.5 - 33.0 pg 03/22/2025 5:57 AM CDT [facility] MCHC 35.0 31.5 - 36.5 g/dL 03/22/2025 5:57 AM CDT [facility] RDW 13.1 10.0 - 15.0 % 03/22/2025 5:57 AM CDT [facility] Platelet Count 242 150 - 450 10e3/uL 03/22/2025 5:57 AM CDT [facility] % Neutrophils 61 % 03/22/2025 5:57 AM CDT [facility] % Lymphocytes 28 % 03/22/2025 5:57 AM CDT [facility] % Monocytes 8 % 03/22/2025 5:57 AM CDT [facility] % Eosinophils 2 % 03/22/2025 5:57 AM CDT [facility] % Basophils 0 % 03/22/2025 5:57 AM CDT [facility] % Immature Granulocytes 1 % 03/22/2025 5:57 AM CDT [facility] NRBCs per 100 WBC 0 <1 /100 025 5:57 AM CDT [facility] Absolute Neutrophils 2.7 1.6 - 8.3 10e3/uL 03/22/2025 5:57 AM CDT [facility] Absolute Lymphocytes 1.2 0.8 - 5.3 10e3/uL 03/22/2025 5:57 AM CDT [facility] Absolute Monocytes 0.4 0.0 - 1.3 10e3/uL 03/22/2025 5:57 AM CDT [facility] Absolute Eosinophils 0.1 0.0 - 0.7 10e3/uL 03/22/2025 5:57 AM CDT [facility] Absolute Basophils 0.0 0.0 - 0.2 10e3/uL 03/22/2025 5:57 AM CDT [facility] Absolute Immature Granulocytes 0.0 <=0.4 10e3/uL 03/22/2025 5:57 AM CDT [facility] Absolute NRBCs 0.0 10e3/uL 03/22/2025 5:57 AM CDT [facility] Blood STRUCTURE OF LEFT UPPER LIMB / Unknown Venipuncture / Unknown 03/22/2025 5:48 AM CDT 03/22/2025 5:55 AM CDT us Sherlyn Geronimo MD LAB - BLOOD ORDERABLES Final Re sult LABORATORY [facility] [address] [facility] Lab (1st floor, no room number) [place] [address], [place] * (ABNORMAL) Comprehensive metabolic panel (03/22/2025 5:48 AM CDT) Only the most recent of2 resultswithin the time period is included. Sodium 134(L) 135 - 145 mmol/L 03/22/2025 6:32 AM CDT LABORATORY Potassium 4.3 3.4 - 5.3 mmol/L 03/22/2025 6:32 AM CDT LABORATORY Carbon Dioxide (CO2) 23 22 - 29 mmol/L 03/22/2025 6:32 AM CDT LABORATORY Anion Gap 9 7 - 15 mmol/L 03/22/2025 6:32 AM CDT LABORATORY Urea Nitrogen 8.4 6.0 - 20.0 mg/dL 03/22/2025 6:32 AM CDT LABORATORY Creatinine 0.78 0.51 - 0.95 mg/dL 03/22/2025 6:32 AM CDT LABORATORY GFR Estimate >90 >60 mL/min/1.7 3m2 03/22/2025 6:32 AM CDT LABORATORY Comment:eGFR calculated usin 2020 CKD-EPI equation. Calcium 8.9 8.8 - 10.4 mg/dL 03/22/2025 6:32 AM CDT LABORATORY Chloride 102 98 - 107 mmol/L 03/22/2025 6:32 AM CDT LABORATORY Glucose 72 70 - 99 mg/dL 03/22/2025 6:32 AM CDT LABORATORY Alkaline Phosphatase 48 40 - 150 U/L 03/22/2025 6:32 AM CDT LABORATORY AST 28 0 - 45 U/L 03/22/2025 6:32 AM CDT LABORATORY ALT 29 0 - 50 U/L 03/22/2025 6:32 AM CDT LABORATORY Protein Total 6.5 6.4 - 8.3 g/dL 03/22/2025 6:32 AM CDT LABORATORY Albumin 3.9 3.5 - 5.2 g/dL 03/22/2025 6:32 AM CDT LABORATORY Bilirubin Total 1.4(H) <=1.2 mg/dL 03/22/2025 6:32 AM CDT LABORATORY Blood STRUCTURE OF LEFT UPPER LIMB / Unknown Venipuncture / Unknown 03/22/2025 5:48 AM CDT 03/22/2025 5:55 AM CDT us Sherlyn Geronimo MD LAB - BLOOD ORDERABLES Final Re sult LABORATORY [facility] Lab [address] Lab (1st floor, no room number) [place] [address], [place] * Glucose by meter (03/20/2025 8:19 AM CDT) [facility] GLUCOSE BY METER POCT 87 70 - 99 mg/dL 03/20/2025 8:26 AM CDT LABORATORY POC Blood, Capillary BLOOD SPECIMEN / Unknown 03/20/2025 8:19 AM CDT 03/20/2025 8:26 AM CDT Kolby Colon MD LAB - SHANNAAKER POCT Final Resu lt [facility] LABORATORY [facility] [address] Lab (1st floor, no room number) [place] [address], [place] * CT Abdomen Pelvis w Contrast (03/19/2025 8:15 PM CDT) Anatomical Region Laterality Modality Abdomen/Pelvis, SUBRAD CT DIAMOND DY, UMP CT ABDOMEN PELVIS, RAD CT Computed Tomography 03/19/2025 8:15 PM CDT Impressions 03/19/2025 9:41 PM CDT IMPRESSION: 1. Postoperative changes of gastric sleeve procedure. No evidence for leakage of oral contrast from the gastric sleeve suture line. 2. Mild fat stranding about the proximal stomach near the gastroesophageal junction is unchanged. Findings could possibly be related to a focal gastritis. 3. Trace amount of pleural fluid at both lung bases, unchanged. 4. Mild splenomegaly. 5. A right ovarian cystic lesion measures 2.6 cm, possibly a dominant follicle. Narrative 03/19/2025 9:41 PM CDT EXAM: CT ABDOMEN PELVIS W CONTRAST LOCATION: [facility] DATE: 03/19/2025 INDICATION: Abdominal pain. Fever. Evaluate for gastric sleeve leakage. COMPARISON: CT of the chest, abdomen, and pelvis performed earlier today. TECHNIQUE: CT scan of the abdomen and pelvis was performed following injection of IV contrast. Multiplanar reformats were obtained. Dose reduction techniques were used. CONTRAST: 100 mL [id number]. FINDINGS: LOWER CHEST: Trace amount of pleural fluid at both lung bases, unchanged. Mild atelectasis at both lung bases posteriorly. HEPATOBILIARY: No significant mass or bile duct dilatation. No calcified gallstones. PANCREAS: Normal. SPLEEN: The spleen is mildly enlarged at 13.7 cm. ADRENAL GLANDS: Normal. KIDNEYS/BLADDER: No significant mass, stone, or hydronephrosis. BOWEL: Postoperative changes of gastric sleeve procedure. No evidence for leakage of oral contrast from the gastric sleeve suture line. There is again mild fat stranding about the proximal stomach near the gastroesophageal junction. No bowel obstruction. No evidence for colitis or diverticulitis. Unremarkable appendix. LYMPH NODES: No lymphadenopathy. VASCULATURE: Normal. PELVIC ORGANS: A right ovarian cystic lesion measures 2.6 cm. No free pelvic fluid. MUSCULOSKELETAL: Unremarkable. Procedure Note Jarod Kennedy MD - 03/19/2025 EXAM: CT ABDOMEN PELVIS W CONTRAST LOCATION: [facility] DATE: 03/19/2025 INDICATION: Abdominal pain. Fever. Evaluate for gastric sleeve leakage. COMPARISON: CT of the chest, abdomen, and pelvis performed earliertoday. TECHNIQUE: CT scan of the abdomen and pelvis was performed followinginjection of IV contrast. Multiplanar reformats were obtained. Dosereduction techniques were used. CONTRAST: 100 mL Isovue-370. FINDINGS: LOWER CHEST: Trace amount of pleural fluid at both lung bases, unchanged.Mild atelectasis at both lung bases posteriorly. HEPATOBILIARY: No significant mass or bile duct dilatation. No calcifiedgallstones. PANCREAS: Normal. SPLEEN: The spleen is mildly enlarged at 13.7 cm. ADRENAL GLANDS: Normal. KIDNEYS/BLADDER: No significant mass, stone, or hydronephrosis. BOWEL: Postoperative changes of gastric sleeve procedure. No evidence forleakage of oral contrast from the gastric sleeve suture line. There isagain mild fat stranding about the proximal stomach near thegastroesophageal junction. No bowel obstruction. No evidence for colitis or diverticulitis. Unremarkable appendix. LYMPH NODES: No lymphadenopathy. VASCULATURE: Normal. PELVIC ORGANS: A right ovarian cystic lesion measures 2.6 cm. No freepelvic fluid. MUSCULOSKELETAL: Unremarkable. IMPRESSION: 1. Postoperative changes of gastric sleeve procedure. No evidence forleakage of oral contrast from the gastric sleeve suture line. 2. Mild fat stranding about the proximal stomach near thegastroesophageal junction is unchanged. Findings could possibly be relatedto a focal gastritis. 3. Trace amount of pleural fluid at both lung bases, unchanged. 4. Mild splenomegaly. 5. A right ovarian cystic lesion measures 2.6 cm, possibly a dominantfollicle. Heather Manley MD IMG CT ORDERABLES Final Result * Blood Culture Peripheral blood (BC) Hand, Right (03/19/2025 6:01 PM CDT) Only the most recent of2 resultswithin the time period is included. Culture No Growth 03/24/2025 8:05 PM CDT [facility] Peripheral blood (BC) STRUCTURE OF RIGHT HAND / Unknown Venipuncture / Unknown 03/19/2025 6:01 PM CDT 03/19/2025 6:10 PM CDT Narrative [facility] - 03/24/2025 8:05 PM CDT Only an Aerobic Blood Culture Bottle was collected, interpret results with caution. Heather Manley MD LAB - MICRO GENERAL ORDE RABLES Final Result [facility] Inf. Diseases Diag. Lab [address], [address] [place] [address], [place] * Lactic acid whole blood (03/19/2025 5:48 PM CDT) Lactic Acid 0.8 0.7 - 2.0 mmol/L 03/19/2025 6:12 PM CDT LABORATORY Blood STRUCTURE OF LEFT UPPER LIMB / Unknown Venipuncture / Unknown 03/19/2025 5:48 PM CDT 03/19/2025 6:10 PM CDT Heather Manley MD LAB - BLOOD ORDERABLES F inal Result LABORATORY [facility] Acute Care Lab [address] Lab (1st floor, no room number) [place] [address], [place] * (ABNORMAL) Lactic Acid Whole Blood with 1X Repeat in 2 HR when >2 (03/19/2025 4:39 PM CDT) Lactic Acid, Initial 2.1(H) 0.7 - 2.0 mmol/L 03/19/2025 4:51 PM CDT [facility] Blood STRUCTURE OF LEFT UPPER LIMB / Unknown Venipuncture / Unknown 03/19/2025 4:39 PM CDT 03/19/2025 4:45 PM CDT Heather Manley MD LAB - BLOOD ORDERABLES F inal Result [facility] Acute Care Lab [address] Lab (1st floor, no room number) [place] [address] * CT Chest (PE) Abdomen Pelvis w Contrast (03/19/2025 4:36 PM CDT) Anatomical Region Laterality Modality Chest, SUBRAD CT BODY, UMP CT CHEST, RAD CT Computed Tomography 03/19/2025 4:36 PM CDT Impressions 03/19/2025 5:09 PM CDT IMPRESSION: 1. No acute findings in the chest including pulmonary embolism or pneumonia. 2. New edema/fat stranding adjacent to the sleeve gastrectomy suture, suspicious for sutural dehiscence with tiny leak. 3. 1.3 cm uterine fibroid. Narrative 03/19/2025 5:09 PM CDT EXAM: CT CHEST PE ABDOMEN PELVIS W CONTRAST LOCATION: [facility] DATE: 03/19/2025 INDICATION: History of pulmonary embolism, shortness of breath, lightheaded, chest pain on left side, positive d-dimer. COMPARISON: CT chest 07/18/2024 TECHNIQUE: CT chest pulmonary angiogram and routine CT abdomen pelvis with IV contrast. Arterial phase through the chest and venous phase through the abdomen and pelvis. Multiplanar reformats and MIP reconstructions were performed. Dose reduction techniques were used. CONTRAST: 100 mL Isovue 370 FINDINGS: ANGIOGRAM CHEST: Pulmonary arteries are normal caliber and negative for pulmonary emboli. Thoracic aorta is negative for aneurysm or dissection. No CT evidence of right heart strain. LUNGS AND PLEURA: Trace bilateral pleural effusions with mild atelectasis in the bilateral lower lobes, right middle lobe and posterior left upper lobe. MEDIASTINUM/AXILLAE: Normal. CORONARY ARTERY CALCIFICATION: None. HEPATOBILIARY: Normal liver and gallbladder. PANCREAS: Normal. SPLEEN: Normal. ADRENAL GLANDS: Normal. KIDNEYS/BLADDER: Normal. BOWEL: Postsurgical change of sleeve gastrectomy redemonstrated. There is new edema/fat stranding adjacent to the gastrectomy suture line. Remainder of the gastrointestinal tract including the appendix is normal. No free air. Trace pelvic free fluid. LYMPH NODES: Normal. VASCULATURE: Normal. PELVIC ORGANS: A 1.3 cm fibroid is seen in the anterior uterine body. No abnormal adnexal masses. A 2.4 cm dominant follicle seen in the right ovary. Trace pelvic free fluid is nonspecific but within physiologic limits. MUSCULOSKELETAL: Normal. Procedure Note Jarod Meyer MD - 03/19/2025 EXAM: CT CHEST PE ABDOMEN PELVIS W CONTRAST LOCATION: [facility] DATE: 03/19/2025 INDICATION: History of pulmonary embolism, shortness of breath,lightheaded, chest pain on left side, positive d-dimer. COMPARISON: CT chest 07/18/2024 TECHNIQUE: CT chest pulmonary angiogram and routine CT abdomen pelvis withIV contrast. Arterial phase through the chest and venous phase through theabdomen and pelvis. Multiplanar reformats and MIP reconstructions wereperformed. Dose reduction techniques were used. CONTRAST: 100 mL Isovue 370 FINDINGS: ANGIOGRAM CHEST: Pulmonary arteries are normal caliber and negative forpulmonary emboli. Thoracic aorta is negative for aneurysm or dissection.No CT evidence of right heart strain. LUNGS AND PLEURA: Trace bilateral pleural effusions with mild atelectasisin the bilateral lower lobes, right middle lobe and posterior left upperlobe. MEDIASTINUM/AXILLAE: Normal. CORONARY ARTERY CALCIFICATION: None. HEPATOBILIARY: Normal liver and gallbladder. PANCREAS: Normal. SPLEEN: Normal. ADRENAL GLANDS: Normal. KIDNEYS/BLADDER: Normal. BOWEL: Postsurgical change of sleeve gastrectomy redemonstrated. There isnew edema/fat stranding adjacent to the gastrectomy suture line. Remainderof the gastrointestinal tract including the appendix is normal. No freeair. Trace pelvic free fluid. LYMPH NODES: Normal. VASCULATURE: Normal. PELVIC ORGANS: A 1.3 cm fibroid is seen in the anterior uterine body. Noabnormal adnexal masses. A 2.4 cm dominant follicle seen in the rightovary. Trace pelvic free fluid is nonspecific but within physiologiclimits. MUSCULOSKELETAL: Normal. IMPRESSION: 1. No acute findings in the chest including pulmonary embolism orpneumonia. 2. New edema/fat stranding adjacent to the sleeve gastrectomy suture,suspicious for sutural dehiscence with tiny leak. 3. 1.3 cm uterine fibroid. us Heather Manley MD IMG CT ORDERABLES Final Result * EKG 12 lead (03/19/2025 2:31 PM CDT) Systolic Blood Pressure mmHg RADIOLOGY RESULTS Diastolic Blood Pressure mmHg RADIOLOGY RESULTS Ventricular Rate 76 BPM RAD IOLOGY RESULTS Atrial Rate 76 BPM RADIOLOG Y RESULTS UT Interval 144 ms RADIOLOG Y RESULTS QRS Duration 80 ms RADIOLO GY RESULTS QT 400 ms RADIOLOGY RESULTS QTc 450 ms RADIOLOGY RESULTS P [place] 50 degrees RADIOLOGY RESULTS R AXIS 72 degrees RADIOLOGY RESULTS T [place] 15 degrees RADIOLOGY RESULTS Interpretation ECG Sinus rhythm Normal ECG When compared with ECG of 18-Jul-2024 07:16, No significant change was found Unconfirmed report - interpretation of this ECG is computer generated - see medical record for final interpretation Confirmed by - EMERGENCY ROOM, PHYSICIAN ([id number]), web editor Micah Mack ([id number]) on 03/19/2025 2:47:47 PM RADIOLOGY RESULTS 03/19/2025 2:31 PM CDT 03/19/2025 2:47 PM CDT Heather Manley MD ECG ORDERABLES Edited R esult - Final RADIOLOGY RESULTS * Extra Red Top Tube (03/19/2025 2:20 PM CDT) Pathologist [facility] [place] Hold Specimen JIC 03/19/2025 3:31 PM CDT LABORATORY Blood STRUCTURE OF RIGHT UPPER LIMB / Unknown Venipuncture / Unknown 03/19/2025 2:20 PM CDT 03/19/2025 2:24 PM CDT Heather Manley MD LAB - BLOOD ORDERABLES F inal Result [facility] LABORATORY [facility] Acute Care Lab [address] Lab (1st floor, no room number) [place] [address] * Extra Blue Top Tube (03/19/2025 2:20 PM CDT) Hold Specimen JIC 03/19/2025 3:31 PM CDT LABORATORY Blood STRUCTURE OF RIGHT UPPER LIMB / Unknown Venipuncture / Unknown 03/19/2025 2:20 PM CDT 03/19/2025 2:24 PM CDT Heather Manley MD LAB - BLOOD ORDERABLES F inal Result LABORATORY [facility] [address] [facility] ([facility], no room number) [place] [phone] * (ABNORMAL) Basic metabolic panel (BMP) (03/19/2025 2:20 PM CDT) Sodium 138 135 - 145 mmol/L 03/19/2025 2:54 PM CDT LABORATORY Potassium 4.4 3.4 - 5.3 mmol/L 03/19/2025 2:54 PM CDT LABORATORY Chloride 105 98 - 107 mmol/L 03/19/2025 2:54 PM CDT LABORATORY Carbon Dioxide (CO2) 21(L) 22 - 29 mmol/L 03/19/2025 2:54 PM CDT LABORATORY Anion Gap 12 7 - 15 mmol/L 03/19/2025 2:54 PM CDT LABORATORY Urea Nitrogen 10.3 6.0 - 20.0 mg/dL 03/19/2025 2:54 PM CDT LABORATORY Creatinine 0.78 0.51 - 0.95 mg/dL 03/19/2025 2:54 PM CDT [facility] GFR Estimate >90 >60 mL/min/1.7 3m2 03/19/2025 2:54 PM CDT [facility] Comment:eGFR calculated usin 2020 CKD-EPI equation. Calcium 9.5 8.8 - 10.4 mg/dL 03/19/2025 2:54 PM CDT LABORATORY Glucose 78 70 - 99 mg/dL 03/19/2025 2:54 PM CDT LABORATORY Blood STRUCTURE OF RIGHT UPPER LIMB / Unknown Venipuncture / Unknown 03/19/2025 2:20 PM CDT 03/19/2025 2:24 PM CDT Heather Manley MD LAB - BLOOD ORDERABLES F inal Result [facility] Acute Care Lab [address] [facility] Lab (1st floor, no room number) [place] [address] * XR Chest Port 1 View (03/13/2025 4:57 PM CDT) Anatomical Region Laterality Modality Chest Computed Radiogr aphy Impressions 03/13/2025 7:10 PM CDT IMPRESSION: 1. No appreciable pneumothorax. 2. Streaky perihilar and bibasilar atelectasis. I have personally reviewed the examination and initial interpretation and I agree with the findings. DEVANTE MINOR DO Narrative 03/13/2025 7:10 PM CDT EXAM: XR CHEST PORT 1 VIEW 03/13/2025 4:57 PM DEMOGRAPHICS: 30 years Female INDICATION: assess for pneumothorax after hiatal hernia repair COMPARISON: CT 07/18/2024 TECHNIQUE: Single portable AP view of the chest. FINDINGS: Single AP view of the chest was obtained. Trachea is midline. Normal cardiac silhouette. Mediastinum is within normal limits. No significant pleural effusion. No discernable pneumothorax. Streaky perihilar and bibasilar opacities. Low lung volumes. Procedure Note Devante Minor DO - 03/13/2025 EXAM: XR CHEST PORT 1 VIEW 03/13/2025 4:57 PM DEMOGRAPHICS: 30 years Female INDICATION: assess for pneumothorax after hiatal hernia repair COMPARISON: CT 07/18/2024 TECHNIQUE: Single portable AP view of the chest. FINDINGS: Single AP view of the chest was obtained. Trachea is midline. Normal cardiac silhouette. Mediastinum is within normal limits. No significant pleural effusion. No discernable pneumothorax. Streaky perihilar and bibasilar opacities. Low lung volumes. IMPRESSION: 1. No appreciable pneumothorax. 2. Streaky perihilar and bibasilar atelectasis. I have personally reviewed the examination and initial interpretation and I agree with the findings. DEVANTE MINOR DO Jazlyn Ramsay MD IMG DIAGNOSTIC IMAGING ORDE CECI Final Result * ANE AIRWAY ETT PERFORMABLE (03/13/2025 2:55 PM CDT) Narrative Mindy Jimenez APRN TECHNICAL OPERATIONS SPECIALIST - 03/13/2025 2:55 PM CDT Mindy Jimenez APRN TECHNICAL OPERATIONS SPECIALIST 03/13/2025 3:03 PM Airway Procedure Start/Stop Times: 03/13/2025 2:55 PM Staff - Other Anesthesia Staff: Felicity Morales Performed By: SUREKHA, with CRNAs and anesthesiologist Procedure performed by resident/fellow/TECHNICAL OPERATIONS SPECIALIST in presence of a teaching physician. Indications and Patient Condition Indications for airway management: richard-procedural Induction type:RSI Mask difficulty assessment: 0 - not attempted Final Airway Details Final airway type: endotracheal airway Successful airway: ETT - single Endotracheal Airway Details ETT size (mm): 7.0 Cuffed: yes Successful intubation technique: video laryngoscopy VL Blade Size: Glidescope 3 Grade View of Cords: 1 Adjucts: stylet Position: Center Measured from: gums/teeth Secured at (cm): 23 Bite block used: Soft Post intubation assessment Placement verified by: capnometry, equal breath sounds and chest rise Number of attempts at approach: 1 Number of other approaches attempted: 0 Secured with: tape Ease of procedure: easy Dentition: Intact and Unchanged Medication(s) Administered Medication Administration Time: 03/13/2025 2:55 PM us Dali Eduardo MD [place] ANESTHESIA Edited Re sult - Final * Adult Type and Screen (03/07/2025 12:49 PM CDT) ABO/RH(D) A POS 03/06/2025 7:00 PM CDT [facility] BLOOD BANK Antibody Screen Negative Negative 03/06/2025 7:00 PM CDT [facility] BLOOD BANK SPECIMEN EXPIRATION DATE [id number] 03/06/2025 7:00 PM CDT [facility] BLOOD BANK Blood BLOOD SPECIMEN / Unknown Venipuncture / Unknown 03/07/2025 12:49 PM CDT 03/07/2025 12:49 PM CDT Darcy Yusuf APRN TELECOMMUNICATIONS FIELD TECHNICIAN LAB - BLOOD BANK TEST ORDER Final Result BLOOD B[place] [address] * Vitamin D Deficiency (03/07/2025 12:49 PM CDT) Vitamin D, Total (25-Hydroxy) 23 20 - 50 ng/mL 03/08/2025 1:06 PM CDT [facility] Comment:optimum levels Blood BLOOD SPECIMEN / Unknown Venipuncture / Unknown 03/07/2025 12:49 PM CDT 03/07/2025 12:49 PM CDT Narrative [facility] - 03/08/2025 1:06 PM CDT Season, race, dietary intake, and treatment affect the concentration of 93-rdcdwcy-Nbevina D. Values may decrease during winter months and increase during summer months. Vitamin D determination is routinely performed by an immunoassay specific for 25 hydroxyvitamin D3. If an individual is on vitamin D2(ergocalciferol) supplementation, please specify 25 [place] vitamin D2 and D3 level determination by LCMSMS test VITD23. Mariana Acosta PA-C LAB - BLOOD ORDERABL ES Final Result [facility] [place] [facility] [address] [facility] [facility], [address] [place] [address], [place] * Vitamin A (03/07/2025 12:49 PM CDT) Vitamin A 0.43 0.30 - 1.20 mg/L 03/10/2025 6:33 AM CDT [facility] Retinol Palmitate <0.02 0.00 - 0.10 mg/L 03/10/2025 6:33 AM CDT [facility] Vitamin A Interp Normal 05/24/20 25 6:33 AM CDT [facility] Comment: This test was developed and its performance characteristics determined by [facility] [employer]. It has not been cleared or approved by the [place] Food and Drug Administration. This test was performed in a CLIA certified laboratory and is intended for clinical purposes. Performed By: [facility] [employer] [address] [place] [id number] [employer]creation Activities Coordinator: Glen Thorpe MD, PhD CLIA Number: [id number] Blood BLOOD SPECIMEN / Unknown Venipuncture / Unknown 03/07/2025 12:49 PM CDT 03/07/2025 12:49 PM CDT Mariana Acosta PA-C LAB - BLOOD ORDERABL ES Final Result [address] [address], [place] [phone] * Parathyroid Hormone Intact (03/07/2025 12:49 PM CDT) Parathyroid Hormone Intact 55 15 - 65 pg/mL 03/08/2025 2:12 PM CDT LABORATORY Blood BLOOD SPECIMEN / Unknown Venipuncture / Unknown 03/07/2025 12:49 PM CDT 03/07/2025 12:49 PM CDT Narrative LABORATORY - 03/08/2025 2:12 PM CDT This result was obtained with the [employer] PTH STAT assay. This reference range differs from PTH assays used in other [facility] laboratories. Darcy Yusuf APRN TELECOMMUNICATIONS FIELD TECHNICIAN LAB - BLOOD ORDERABLES Final Result LABORATORY [facility] Acute Care Lab [address] Lab (1st floor, no room number) [place] [address], [place] * (ABNORMAL) Lipid panel reflex to direct LDL Fasting (03/07/2025 12:49 PM CDT) Cholesterol 170 <200 mg/dL 03/08/2025 1:06 PM CDT [facility] Triglycerides 174(H) <150 mg/dL 03/08/2025 1:06 PM CDT [facility] Direct Measure HDL 57 >=50 mg/dL 03/08/2025 1:06 PM CDT [facility] LDL Cholesterol Calculated 78 <100 mg/dL 03/08/2025 1:06 PM CDT [facility] Non HDL Cholesterol 113 <130 mg/dL 03/08/2025 1:06 PM CDT [facility] Patient Fasting > 8hrs? Yes 03/08/2025 1:06 PM CDT [facility] Blood BLOOD SPECIMEN / Unknown Venipuncture / Unknown 03/07/2025 12:49 PM CDT 03/07/2025 12:49 PM CDT Narrative [facility] - 03/08/2025 1:06 PM CDT Cholesterol Desirable: < 200 mg/dL Borderline High: 200 - 239 mg/dL High: >= 240 mg/dL Triglycerides Normal: < 150 mg/dL Borderline High: 150 - 199 mg/dL High: 200-499 mg/dL Very High: >= 500 mg/dL Direct Measure HDL Female: >= 50 mg/dL Male: >= 40 mg/dL LDL Cholesterol Desirable: < 100 mg/dL Above Desirable: 100 - 129 mg/dL Borderline High: 130 - 159 mg/dL High: 160 - 189 mg/dL Very High: >= 190 mg/dL Non HDL Cholesterol Desirable: < 130 mg/dL Above Desirable: 130 - 159 mg/dL Borderline High: 160 - 189 mg/dL High: 190 - 219 mg/dL Very High: >= 220 mg/dL Mariana Acosta PA-C LAB - BLOOD ORDERABL ES Final Result [facility] [place] [facility] [address] [facility] [address] [facility], [address] [place] [address] * Hemoglobin A1c (03/07/2025 12:49 PM CDT) Estimated Average Glucose 91 <117 mg/dL 03/07/2025 12:56 PM CDT [facility] Hemoglobin A1C 4.8 0.0 - 5.6 % 03/07/2025 12:56 PM CDT [facility] Comment: Normal <5.7% Prediabetes 5.7-6.4% Diabetes 6.5% or higher Note: Adopted from ADA consensus guidelines. Blood BLOOD SPECIMEN / Unknown Venipuncture / Unknown 03/07/2025 12:49 PM CDT 03/07/2025 12:49 PM CDT Mariana Acsota PA-C LAB - BLOOD ORDERABL ES Final Result [facility] [address] [facility], [address] [place] [address], [place] * (ABNORMAL) Vitamin B12 (03/07/2025 12:49 PM CDT) Pathologist [facility] Vitamin B12 162(L) 232 - 1,245 pg/mL 03/08/2025 1:06 PM CDT [facility] Blood BLOOD SPECIMEN / Unknown Venipuncture / Unknown 03/07/2025 12:49 PM CDT 03/07/2025 12:49 PM CDT Mariana Acosta PA-C LAB - BLOOD ORDERABL ES Final Result [facility] [address] [facility], [address] [address] * (ABNORMAL) CBC with platelets (03/07/2025 12:49 PM CDT) WBC Count 7.7 4.0 - 11.0 10e3/uL 03/07/2025 12:59 PM CDT [facility] RBC Count 3.07(L) 3.80 - 5.20 10e6/uL 03/07/2025 12:59 PM CDT [facility] Hemoglobin 12.6 11.7 - 15.7 g/dL 03/07/2025 12:59 PM CDT [facility] Hematocrit 34.3(L) 35.0 - 47.0 % 03/07/2025 12:59 PM CDT [facility] MCV 112(H) 78 - 100 fL 03/07/2025 12:59 PM CDT [facility] MCH 41.0(H) 26.5 - 33.0 pg 03/07/2025 12:59 PM CDT [facility] MCHC 36.7(H) 31.5 - 36.5 g/dL 03/07/2025 12:59 PM CDT [facility] RDW 14.3 10.0 - 15.0 % 03/07/2025 12:59 PM CDT [facility] Platelet Count 280 150 - 450 10e3/uL 03/07/2025 12:59 PM CDT [facility] Blood BLOOD SPECIMEN / Unknown Venipuncture / Unknown 03/07/2025 12:49 PM CDT 03/07/2025 12:49 PM CDT Darcy Yusuf FOIL SPOOLER TELECOMMUNICATIONS FIELD TECHNICIAN LAB - BLOOD ORDERABLES Final Result [facility] [address], [address] [place] [address], [place] * HIV-1 Antibody (External Result) (12/19/2020 9:24 AM CONTINUOUS DRIER OPERATOR) [facility] HIV 1&2 Antibody (External) Negative Nonreactive [facility] 12/19/2020 9:24 AM CONTINUOUS DRIER OPERATOR us Patient Reported LAB - HIM EXTERNAL RESULT Final Result [facility] [address] [place], [place] [address] [phone] from Last 3 Months or Most Recently Relevant to Health Maintenance Insurance [facility] OUT OF STATE Member Subscriber Plan / Payer (Ef fective 2024-Present) Name:Karo Chavira Relation to Subscriber:Self Name:Karo Chavira Payer ID:[id number] ([facility]) Type:Indemnity Address: [address] [address] [place] [address] [facility] * Guarantor: Karo Chavira Account Type Relation to Patient Date of Phone Billing Address Medication Therapy Self 1995 [id number] [place] [address] Advance Directives For more information, please contact: [phone] * Full Code (Latest Code Status on File) Date Activated Date Inactivated Comments 03/21/2025 5:34 PM 03/23/2025 6:40 PM All basic and advanced life-sustaining interventions are performed as appropriate Question Answer Comments Code status determined by: Discussion with patie nt/ legal decision maker * Full Code Date Activated Date Inactivated Comments 04/19/2023 12:50 PM 04/22/2023 2:31 PM All basic and advanced life-sustaining interventions are performed as appropriate Question Answer Comments Code status determined by: Discussion with patie nt/ legal decision maker * Full Code Date Activated Date Inactivated Comments 07/06/2021 7:40 AM 07/06/2021 6:25 PM All basic an d advanced life-sustaining interventions are performed as appropriate Question Answer Comments Code status determined by: Discussion with patie nt/ legal decision maker * Full Code Date Activated Date Inactivated Comments 07/04/2021 6:22 PM 07/05/2021 4:17 PM All basic an d advanced life-sustaining interventions are performed as appropriate Question Answer Comments Code status determined by: Discussion with patie nt/ legal decision maker * Full Code Date Activated Date Inactivated Comments 05/16/2014 1:00 AM 05/17/2014 2:26 PM Care Teams Deskidding Machine Operator Relationship Specialty [place] [address] [place] [address] PCP - General Family Medicine 03/13/25 Purvi Jeong [facility] [address] [place] [address] [phone] Pharmacist Pharmacist Transformation Coach 01/03/25 Lucas Nuno MD [address] [place] [id number] Assigned Surgical Provider 02/07/25 Meghan Cox [facility] [address] [place] [phone] Pharmacist Pharmacist Transformation Coach 03/20/25
--- OUTSIDE RECORDS SUMMARY | 2025-05-27 15:21 | XMS_ITS | Encounter Summary ---
Author Organization [place] Address [facility] [place] [address] Care Team Providers Care Service Rig Operator Name Role Phone [facility] Primary Care Provider Leatha Wagner APRN [facility] Unavailable +[phone] Mariana Acosta-C Unavailable + [phone] Sarah Juares MD Primary Care Provider [phone] Lucas Nuno MD Unavailable +- [phone] Mariana AcostaC Unavailable +[phone] Lucas Nuno MD Unavailable +- [phone] Mariana AcostaC Unavailable +[phone] Purvi Jeong [facility] Unavailable [phone] Lucas Nuno MD Unavailable +- [phone] Meghan Cox [facility] Unavailable [phone] Encounter Details Date Type Department Care Team (Late st Contact Info) Description 08/24/2022 [facility] Medical Advice [facility] [address] 4th [place] [address] Rita Gillespie, EMT Social History Tobacco Use Types Packs/Day Years Used Date Smoking Tobacco: Former Smokeless Tobacco: Never Alcohol Use Standard Drinks/Week Comments Not Currently 0 (1 standard drink = 0.6 oz pur e alcohol) rare Center Depression Scale Answer Date Recorded Center Depression Score 1 07/06/2021 Last EPDS Self Harm Result Not on file 07/06 Comments No Sex and Gender Information Value Date Recorded Sex Assigned at Female 06/03/2022 7:36 AM CDT 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 LAW OFFICE RECEPTIONIST Gender Identity Female 06/03/2022 7:36 AM CDT [...] documented as of this encounter Care Teams Service Rig Operator Relationship Specialty Start Date End Date [facility], [facility] [address] [facility] [place] [address] PCP - General 01/02/14 03/23/23 [place] [address] [facility] [place] [address] PCP - General Family Medicine 03/13/25 Leatha Wagner APRN [employer] [address] [place] [address] Assigned Surgical Provider 11/02/21 09/04/22 Mariana Acosta PA-C [address] [place] [address] Assigned Surgical Provider 09/05/22 12/09/23 Lucas Nuno MD [address] [address] Assigned Surgical Provider 12/10/23 01/07/24 Mariana Acosta PA-C [address] [address] Assigned Surgical Provider 01/08/24 03/08/24 Lucas Nuno MD [address] [address] Assigned Surgical Provider 03/09/24 12/09/24 Mariana Acosta PA-C [address] [address] Assigned Surgical Provider 12/10/24 02/06/25 Purvi Jeong [facility] [address] [place] [address] [phone] Pharmacist Pharmacist Acquisition Associate 01/03/25 Lucas Nuno MD [address] [address] Assigned Surgical Provider 02/07/25 Meghan Cox [facility] [address] [place] [address] Pharmacist Pharmacist Acquisition Associate 03/20/25 documented as of this encounter
--- OUTSIDE RECORDS SUMMARY | 2025-05-27 15:21 | XMS_ITS | Encounter Summary ---
Author Organization [place] Address [address] [facility] [place] [address] Care Team Providers Care Marketing Manager Health Communications Name Role Phone Mariana Acosta-Noreen Unavailable + [phone] Sarah Juares MD Primary Care Provider [phone] Lucas Nuno MD Unavailable [phone] Mariana Acosta-C Unavailable + [phone] Lucas Nuno MD Unavailable [phone] Mariana Acosta-C Unavailable + [phone] Purvi Jeong [facility] Unavailable [phone] Lucas Nuno MD Unavailable [phone] Meghan Cox [facility] Unavailable [phone] Encounter Details Date Type Department Care Team (Late st Contact Info) Description 05/10/2023 [facility] [place] [facility] [address]th [place] [address] Paulina Denny, RN Social History Tobacco Use Types Packs/Day Years Used Date Smoking Tobacco: Former Smokeless Tobacco: Never Alcohol Use Standard Drinks/Week Comments Not Currently 0 (1 standard drink = 0.6 oz pur e alcohol) rare PHQ-2 Answer Date Recorded PHQ-2 Score 0 05/12/2023 [place] Depression Scale Answer Date Recorded [place] Depression Score 1 07/06/2021 Last EPDS Self Harm Result Not on file 07/06 Comments No Sex and Gender Information Value Date Recorded Sex Assigned at Female 06/03/2022 7:36 AM CDT 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 No / Unsure 04/19/2023 3:37 AM CDT documented as of this encounter Plan of Treatment Not on file documented as of this encounter Visit Diagnoses Not on filedocumented in this encounter Care Teams Marketing Manager Health Communications Relationship Specialty [place] [address] [facility] [place] [address] PCP - General Family Medicine 03/13/25 Mariana Acosta PA-C [address] [address] Assigned Surgical Provider 09/05/22 12/09/23 Lucas Nuno MD [address] [address] Assigned Surgical Provider 12/10/23 01/07/24 Mariana Acosta PA-C [address] [address] Assigned Surgical Provider 01/08/24 03/08/24 Lucas Nuno MD [address] [address] Assigned Surgical Provider 03/09/24 12/09/24 Mariana Acosta PA-C [address] [address] Assigned Surgical Provider 12/10/24 02/06/25 Purvi Jeong [facility] [address] [place] [address] Pharmacist Pharmacist Supervisor Harvesting 01/03/25 Lucas Nuno MD [address] [place] [address] Assigned Surgical Provider 02/07/25 Meghan Cox [facility] 9 [place] [address] Pharmacist Pharmacist Supervisor Harvesting 03/20/25 documented as of this encounter
--- OUTSIDE RECORDS SUMMARY | 2025-05-27 15:21 | XMS_ITS | Encounter Summary ---
Author Organization [place] Address [address] [facility] [place] [address] Care Team Providers Care Inspector Welded Parts Name Role Phone Sarah Juares MD Primary Care Provider [phone] Purvi Jeong [facility] Unavailable [phone] Lucas Nuno MD Unavailable [phone] Meghan Cox [facility] Unavailable [phone] Encounter Details Date Type Department Care Team (Late st Contact Info) Description 03/23/2025 [facility] Medical Advice [facility] [place] [address] [facility] [address] 4th [place] [address] Lucas Nuno MD [address] [facility] [address] [place] [address] Social History Tobacco Use Types Packs/Day Years Used Date Smoking Tobacco: Former Smokeless Tobacco: Never Alcohol Use Standard Drinks/Week Comments Not Currently 0 (1 standard drink = 0.6 oz pur e alcohol) rare PHQ-2 Answer Date Recorded PHQ-2 Score 0 02/22/2025 [place] Depression Scale Answer Date Recorded [place] Depression Score 1 07/06/2021 Last EPDS Self [...] in an abandoned building, in an overnight mcfp, or couch-surfing.) Yes 03/21/2025 Are you worried [...] AM CDT 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 Gender Identity Female 06/03/2022 7:36 AM CDT Sexual Orientation Straight 06/03/2022 7: 36 AM CDT documented as of this encounter Plan of Treatment Not on file documented as of this encounter Visit Diagnoses Not on filedocumented in this encounter Care Teams Inspector Welded Parts Relationship Specialty [place] [address] [place] [address] PCP - General Family Medicine 03/13/25 Purvi Jeong RPH [address] [place] [address] [phone] Pharmacist Pharmacist Hot Stone Setter 01/03/25 Lucas Nuno MD [address] [place] [address] [phone] Assigned Surgical Provider 02/07/25 Meghan Cox RPH [address] [place] [address] [phone] Pharmacist Pharmacist Hot Stone Setter 03/20/25 documented as of this encounter
--- OUTSIDE RECORDS SUMMARY | 2025-05-27 15:21 | XMS_ITS | Encounter Summary ---
Author Organization [place] Address [address] [facility] [place] [address] Care Team Providers Care Surgical Coder Name Role Phone Sarah Juares MD Primary Care Provider [phone] [facility] Unavailable [phone] Lucas Nuno MD Unavailable [phone] [facility] Unavailable [phone] Encounter Details Date Type Department Care Team (Late st Contact Info) Description 03/20/2025 My[facility] Medical Advice [facility] [address] 4th [place] [address] Anastasia Molina, RN Social History Tobacco Use Types Packs/Day Years Used Date Smoking Tobacco: Former Smokeless Tobacco: Never Alcohol Use Standard Drinks/Week Comments Not Currently 0 (1 standard drink = 0.6 oz pur e alcohol) rare PHQ-2 Answer Date Recorded PHQ-2 Score 0 02/22/2025 [place] Depression Scale Answer Date Recorded [place] Depression Score 1 07/06/2021 Last EPDS Self [...] AM CDT 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 Gender Identity Female 06/03/2022 7:36 AM CDT Sexual Orientation Straight 06/03/2022 7: 36 AM CDT documented as of this encounter Plan of Treatment Not on file documented as of this encounter Visit Diagnoses Not on filedocumented in this encounter Care Teams Surgical Coder Relationship Specialty [place] [address] [place] [address] PCP - General Family Medicine 03/13/25 Purvi Jeong RPH [address] [place] [address] Pharmacist Pharmacist Landfill Gas Collection Operator 01/03/25 Lucas Nuno MD [address] [place] [address] Assigned Surgical Provider 02/07/25 Meghan Cox RPH [address] [place] [address] Pharmacist Pharmacist Landfill Gas Collection Operator 03/20/25 documented as of this encounter
--- OUTSIDE RECORDS SUMMARY | 2025-05-27 15:21 | XMS_ITS | Encounter Summary ---
Author Organization [place] Address [facility] [place] [address] Care Team Providers Care Telephone Clerks Supervisor Name Role Phone [facility], [facility] Primary Care Provider Leatha Wagner APRN [facility] Unavailable [phone] Mariana Acosta-C Unavailable + [phone] Sarah Juares MD Primary Care Provider [phone] Lucas Nuno MD Unavailable [phone] Mariana AcostaC Unavailable [phone] Lucas Nuno MD Unavailable +[phone] Mariana AcostaC Unavailable [phone] Purvi Jeong [facility] Unavailable [phone] Lucas Nuno MD Unavailable +[phone] Meghan Cox [facility] Unavailable [phone] Encounter Details Date Type Department Care Team (Late st Contact Info) Description 08/27/2022 Bree Damon [facility] [address] [place] Roberto [address] Xochitl Cooley Social History Tobacco Use Types Packs/Day Years Used Date Smoking Tobacco: Former Smokeless Tobacco: Never Alcohol Use Standard Drinks/Week Comments Not Currently 0 (1 standard drink = 0.6 oz pur e alcohol) rare [place] Depression Scale Answer Date Recorded [place] Depression Score 1 07/06/2021 Last EPDS Self Harm Result Not on file 07/06 Comments No Sex and Gender Information Value Date Recorded Sex Assigned at Female 06/03/2022 7:36 AM CDT 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 Gender Identity Female 06/03/2022 7:36 AM CDT [...] documented as of this encounter Care Teams Telephone Clerks Supervisor Relationship Specialty Start Date End Date [facility], [facility] [address] [facility] [place] [address] PCP - General 01/02/14 03/23/23 [place] [address] [facility] [address] PCP - General Family Medicine 03/13/25 Leatha Wagner APRN GAS PLANT TECHNICIAN [address] [place] [address] Assigned Surgical Provider 11/02/21 09/04/22 Mariana Acosta PA-C [address] [place] [address] Assigned Surgical Provider 09/05/22 12/09/23 Lucas Nuno MD [address] [address] Assigned Surgical Provider 12/10/23 01/07/24 Mariana Acosta PA-C [address] [address] Assigned Surgical Provider 01/08/24 03/08/24 Lucas Nuno MD [address] [address] Assigned Surgical Provider 03/09/24 12/09/24 Mariana Acosta PA-C [address] [address] Assigned Surgical Provider 12/10/24 02/06/25 Puriv Jeong [facility] [address] [place] [address] Pharmacist Pharmacist Office Services Specialist 01/03/25 Lucas Nuno MD [address] [address] Assigned Surgical Provider 02/07/25 [facility] [address] [place] [address] Pharmacist Pharmacist Office Services Specialist 03/20/25 documented as of this encounter
--- OUTSIDE RECORDS SUMMARY | 2025-05-27 15:21 | XMS_ITS | Encounter Summary ---
Author Organization [place] Address [address] [facility] [place] [address] Care Team Providers Care Engine Turner Name Role Phone Sarah Juares MD Primary Care Provider [phone] Purvi Jeong [facility] Unavailable [phone] Lucas Nuno MD Unavailable [phone] Meghan Cox [facility] Unavailable [phone] Encounter Details Date Type Department Care Team (Late st Contact Info) Description 04/12/[address] [facility] [place] [address] [facility] [address] 4th [place] [address] Lucas Nuno MD [address] 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 Gender Identity Female 06/03/2022 7:36 AM CDT Sexual Orientation Straight 06/03/2022 7: 36 AM CDT documented as of this encounter Plan of Treatment Not on file documented as of this encounter Visit Diagnoses Not on filedocumented in this encounter Care Teams Engine Turner Relationship Specialty [place] [address] [place] [address] PCP - General Family Medicine 03/13/25 Purvi Jeong RPH [address] [place] [address] [phone] Pharmacist Pharmacist Language And Literature Division Chair 01/03/25 Lucas Nuno MD [address] [place] [address] [phone] Assigned Surgical Provider 02/07/25 Meghan Cox RPH [address] [place] [address] [phone] Pharmacist Pharmacist Language And Literature Division Chair 03/20/25 documented as of this encounter
--- OUTSIDE RECORDS SUMMARY | 2025-05-27 15:21 | XMS_ITS | Encounter Summary ---
Author Organization [place] Address [address] [facility] [place] [address] Care Team Providers Care Metal Spraying Machine Operator Name Role Phone Sarah Juares MD Primary Care Provider [phone] Purvi Jeong [facility] Unavailable [phone] Lucas Nuno MD Unavailable [phone] Meghan Cox [facility] Unavailable [phone] Encounter Details Date Type Department Care Team (Late st Contact Info) Description 03/28/2025 Results Follow-Up [facility] [place] [address] [facility] [address] 4th [place] [address] Mariana Acosta PA-C [address] [facility] [address] [place] [address] Subj: Message about your results Social History Tobacco Use Types Packs/Day Years Used Date Smoking Tobacco: Former Smokeless Tobacco: Never Alcohol Use Standard Drinks/Week Comments Not Currently 0 (1 standard drink = 0.6 oz pur e alcohol) rare PHQ-2 Answer Date Recorded PHQ-2 Score 0 02/22/2025 [place] Depression Scale Answer Date Recorded [place] Depression Score 1 07/06/2021 Last EPDS Self [...] Answer Date Recorded Do you have housing? 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 Gender Identity Female 06/03/2022 7:36 AM CDT Sexual Orientation Straight 06/03/2022 7: 36 AM CDT documented as of this encounter Plan of Treatment Not on file documented as of this encounter Visit Diagnoses Not on filedocumented in this encounter Care Teams Metal Spraying Machine Operator Relationship Specialty [place] [address] [place] [address] PCP - General Family Medicine 03/13/25 Purvi Jeong RPH [address] [place] [address] [phone] Pharmacist Pharmacist Regional Business Manager 01/03/25 Lucas Nuno MD [address] [place] [address] 450805 Assigned Surgical Provider 02/07/25 Meghan Cox RPH [address] [place] [address] [phone] Pharmacist Pharmacist Regional Business Manager 03/20/25 documented as of this encounter
--- OUTSIDE RECORDS SUMMARY | 2025-05-27 15:21 | XMS_ITS | Encounter Summary ---
Author Organization [place] Address [address] [facility] [place] [address] Care Team Providers Care Leadership Program Internship Name Role Phone Sarah Juares MD Primary Care Provider [phone] Purvi Jeong [facility] Unavailable [phone] Lucas Nuno MD Unavailable [phone] Meghan Cox [facility] Unavailable [phone] Encounter Details Date Type Department Care Team (Late st Contact Info) Description 04/12/[address] 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 Gender Identity Female 06/03/2022 7:36 AM CDT Sexual Orientation Straight 06/03/2022 7: 36 AM CDT documented as of this encounter Plan of Treatment Not on file documented as of this encounter Visit Diagnoses Not on filedocumented in this encounter Care Teams Leadership Program Internship Relationship Specialty [place] [address] [place] [address] PCP - General Family Medicine 03/13/25 Purvi Jeong RPH [address] [place] [address] Pharmacist Pharmacist Activity Therapy Specialist 01/03/25 Lucas Nuno MD [address] [place] [address] Assigned Surgical Provider 02/07/25 Meghan Cox RPH [address] [place] [address] [phone] Pharmacist Pharmacist Activity Therapy Specialist 03/20/25 documented as of this encounter
--- OUTSIDE RECORDS SUMMARY | 2025-05-27 15:21 | XMS_ITS | Referral Summary ---
Author Organization [employer] [facility] Address [address] [place] [address] Care Team Providers Care Email Production Specialist Name Role Phone Provider, No Primary Primary Care Provider Unava ilable Allergies Active Allergy Reactions Criticality Noted Date Comments Azithromycin Hives,Rash,Swelling Medium 01/31/2016 Nsaids (Non-Steroidal Anti-Inflammatory Drug) Other Low 07/05/2023 Sulfa (Sulfonamide Antibiotics) Other 01/31/2016 Not sure of reaction but was in the hospital because of it. Medications ALBUTEROL SULFATE (PROAIR HFA) 90 mcg/actuation inhalation HFA Aerosol Inhaler 2 Puffs by inhalation route every 4 hours as needed for shortness of breath. Active acetaminophen (TYLENOL) 500 mg oral Tablet Take 2 Tablets (1,000 mg) by mouth every 6 hours if needed. 3 Active phentermine (ADIPEX-P) 37.5 mg oral Tablet Phentermine Oral inactive 3 Active topiramate (TOPAMAX) 25 mg oral Tablet Topiramate Oral inactive 3 Active pantoprazole (PROTONIX) 40 mg oral Tablet, Delayed Release (E.C.) Take 1 Tablet (40 mg) by mouth in the morning. Active enoxaparin sodium (ENOXAPARIN SUBQ) Enoxaparin Subcutaneous BID active Active Active Problems No known active problems Social History Tobacco Use Types Packs/Day Years Used Date Smoking Tobacco: Every Day Cigarettes 1 3 Tobacco Cessation:Ready to Q uit: Yes; Counseling Given: Yes Alcohol Use Standard Drinks/Week Comments Yes 0 (1 standard drink = 0.6 oz pur e alcohol) rare Depression (PHQ-9) Answer Date Recorded Last PHQ-9 Score Not on file 11/14/2023 Thoughts of self harm Not on file 11/14/2023 Comments No Sex and Gender Information Value Date Recorded Sex Assigned at Not on file Legal Sex Female 8:59 PM HEEL PAINTER Gender Identity Not on file Sexual Orientation Not on file Last Filed Vital Signs Vital Sign Reading Time Taken Comments Blood Pressure 123/87 11/14/2023 9:14 AM HEEL PAINTER Pulse 90 11/14/2023 9:14 AM HEEL PAINTER Temperature 36.9 C (98.5 F) 11/14/2023 9:14 AM HEEL PAINTER Respiratory Rate - - Oxygen Saturation 98% 11/14/2023 9:14 AM HEEL PAINTER Inhaled Oxygen Concentration - - Weight 122.9 kg (271 lb) 01/31/2016 4:54 PM CDT Height 175.3 cm (5' 9) 01/31/2016 4:54 PM CDT Body Mass Index 40.02 01/31/2016 4:54 PM CDT Plan of Treatment Not on file Procedures Procedure Name Priority Date/Time Associated Diagnosis Comments PAP REFLEX HPV (AGE 21 OR OLDER) 08/08/2010 12:00 AM CDT from Last 3 Months or Most Recently Relevant to Health Maintenance Results * PAP REFLEX HPV (AGE 21 OR OLDER) (08/08/2010 12:00 AM CDT) 08/08/2010 08/12/2010 7:4 4 AM CDT Narrative [facility] - 08/06/2011 1:34 AM CDT RUN DATE: 08/06/11 [facility]OR[facility] PAGE 1 RUN TIME: [address] [place] [address] RUN USER: [email or web address] CYTOLOGY REPORT ----- ------- PATIENT: KALEB ALEMAN LOC: [facility] U #: [id number] : 89 AGE/SX: 15/F ROOM: RE08/08/[address]: Angel Santos MD STATUS: REG REF BED: DIS: ----- ------- SPEC #: [id number] RECD: 08/12/10 STATUS: RONI SAMUELS #: [id number] MELANIE: 08/08/10- [facility] DR: Angel Santos MD ENTERED: 08/12/10 SP TYPE: THINPREP OTHR DR: ORDERED: [id number], THINPREP PAP PAP CLINICAL DATA LMP: 07-21-10 : NO HORMONE THERAPY: NO PREVIOUS SMEAR: NO PT. PHONE #: [phone] PT. ADDRESS: [address] CYTOLOGY RESULTS SPECIMEN ADEQUACY: SATISFACTORY FOR EVALUATION. RESULTS: NEGATIVE FOR INTRAEPITHELIAL LESION OR MALIGNANCY. Signed Electronically Signed JAKE TERAN 08/12/10 ----- ------- END OF REPORT Procedure Note 08/08/2011 RUN DATE: 08/06/11 [facility]ORATORYPAGE 1 RUN TIME: [address] [place] [address] RUN USER: [email or web address] CYTOLOGY REPORT ----- ------- PATIENT: KALEB ALEMAN LOC: [facility] #: [id number] : 89 AGE/SX: 15/F ROOM:RE08/08/[address]: Angel Santos MD STATUS: REG REF BED:DIS: ----- ------- SPEC #: [id number] RECD: 08/12/10 STATUS: [facility] #: [id number] MELANIE: 08/08/10- [facility] DR: Pop Santos MD. ENTERED: 08/12/10 SP TYPE: THINPREP OTHR DR: ORDERED: [id number], THINPREP PAP PAP CLINICAL DATA LMP: 07-21-10 : NO HORMONE THERAPY: NO PREVIOUS SMEAR: NO PT. PHONE #: [phone] PT. ADDRESS: [address] CYTOLOGY RESULTS SPECIMEN ADEQUACY: SATISFACTORY FOR EVALUATION. RESULTS: NEGATIVE FOR INTRAEPITHELIAL LESION OR MALIGNANCY. Signed Electronically Signed JAKE TERAN 08/12/10 ----- ------- END OF REPORT us Angel Santos MD [employer] [facility] CYTOLOGY Final Resul t [address] [place] [address] from Last 3 Months or Most Recently Relevant to Health Maintenance Insurance [facility] Care Teams Email Production Specialist Relationship Specialty Start Date End Date Provider, [place] [address] PCP - General 01/31/16 Additional Source Comments PLEASE NOTE: Replies to this message will not be received.[facility] and [facility]
--- OUTSIDE RECORDS SUMMARY | 2025-05-27 15:21 | XMS_ITS | Encounter Summary ---
Author Organization [place] Address [address] [place] [address] Care Team Providers Care Philatelic Consultant Name Role Phone Sarah Juares MD Primary Care Provider [phone] Purvi Jeong [facility] Unavailable [phone] Lucas Nuno MD Unavailable [phone] Meghan Cox [facility] Unavailable [phone] Encounter Details Date Type Department Care Team (Late st Contact Info) Description 03/29/2025 My[facility] Medical Advice [facility] [place] [address] [facility] [address] 4th [place] [address] Lucas Nuno MD [address] [facility] [address] [facility] [address] [place] [address] Social History Tobacco Use Types Packs/Day Years Used Date Smoking Tobacco: Former Smokeless Tobacco: Never Alcohol Use Standard Drinks/Week Comments Not Currently 0 (1 standard drink = 0.6 oz pur e alcohol) rare PHQ-2 Answer Date Recorded PHQ-2 Score 0 02/22/2025 [place] Depression Scale Answer Date Recorded [place] Depression Score 1 07/06/2021 Last EPDS Self [...] AM CDT 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 Gender Identity Female 06/03/2022 7:36 AM CDT Sexual Orientation Straight 06/03/2022 7: 36 AM CDT documented as of this encounter Plan of Treatment Not on file documented as of this encounter Visit Diagnoses Not on filedocumented in this encounter Care Teams Philatelic Consultant Relationship Specialty [place] [address] [place] [address] PCP - General Family Medicine 03/13/25 Purvi Jeong RPH [address] [place] [address] [phone] Pharmacist Pharmacist Offc Spec 01/03/25 Lucas Nuno MD [address] [place] [address] [phone] Assigned Surgical Provider 02/07/25 Meghan Cox RPH [address] [place] [address] [phone] Pharmacist Pharmacist Offc Spec 03/20/25 documented as of this encounter
--- OUTSIDE RECORDS SUMMARY | 2025-05-27 15:21 | XMS_ITS | Encounter Summary ---
Author Organization [place] Address [facility] [place] [address] Care Team Providers Care Floor Assembler Name Role Phone [facility] Primary Care Provider Leatha Wagner APRN [facility] Unavailable [phone] Mariana Acosta-C Unavailable + [phone] Sarah Juares MD Primary Care Provider [phone] Lucas Nuno MD Unavailable +- [phone] Mariana AcostaC Unavailable [phone] Lucas Nuno MD Unavailable +- 52 Mariana AcostaC Unavailable [phone] Purvi Jeong [facility] Unavailable [phone] Lucas Nuno MD Unavailable [phone] Meghan Cox [facility] Unavailable [phone] Encounter Details Date Type Department Care Team (Late st Contact Info) Description 09/02/2022 [facility] [address] 4th [place] [address] Giuliana Masterson Social History Tobacco Use Types Packs/Day Years Used Date Smoking Tobacco: Former Smokeless Tobacco: Never Alcohol Use Standard Drinks/Week Comments Not Currently 0 (1 standard drink = 0.6 oz pur e alcohol) rare [place] Depression Scale Answer Date Recorded [place] Depression Score 1 07/06/2021 Last EPDS Self Harm Result Not on file 07/06 Comments No Sex and Gender Information Value Date Recorded Sex Assigned at Female 06/03/2022 7:36 AM CDT 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 Gender Identity Female 06/03/2022 7:36 AM [...] documented as of this encounter Care Teams Floor Assembler Relationship Specialty Start Date End Date [facility] [address] [facility] [place] [address] PCP - General 01/02/14 03/23/23 [place] [address] [facility] [place] [address] PCP - General Family Medicine 03/13/25 Leatha Wagner APRN COMPENSATION CONSULTANT [address] [place] [address] Assigned Surgical Provider 11/02/21 09/04/22 Mariana Acosta PA-C [address] [place] [address] Assigned Surgical Provider 09/05/22 12/09/23 Lucas Nuno MD [address] [address] Assigned Surgical Provider 12/10/23 01/07/24 Mariana Acosta PA-C [address] [address] Assigned Surgical Provider 01/08/24 03/08/24 Lucas Nuno MD [address] [address] Assigned Surgical Provider 03/09/24 12/09/24 Mariana Acosta PA-C [address] [address] Assigned Surgical Provider 12/10/24 02/06/25 Purvi Jeong [facility] [address] [place] [address] [phone] Pharmacist Pharmacist Nursing Informatics Specialist 01/03/25 Lucas Nuno MD [address] [place] [address] Assigned Surgical Provider 02/07/25 Meghan Cox [facility] [address] [place] [address] Pharmacist Pharmacist Nursing Informatics Specialist 03/20/25 documented as of this encounter
--- OUTSIDE RECORDS SUMMARY | 2025-05-27 15:21 | XMS_ITS | Encounter Summary ---
Author Organization [place] Address [facility] [place] [address] Care Team Providers Care Shop Worker Name Role Phone [facility], [facility] Primary Care Provider Leatha Wagner APRN [facility] Unavailable [phone] Mariana AcostaC Unavailable [phone] Sarah Juares MD Primary Care Provider [phone] Lucas Nuno MD Unavailable +-[phone] Mariana Acosta PA-C Unavailable [phone] Lucas Nuno MD Unavailable +- 08 Mariana Acosta PA-C Unavailable [phone] Purvi Jeong [facility] Unavailable [phone] Lucas Nuno MD Unavailable +- Meghan Cox [facility] Unavailable [phone] Encounter Details Date Type Department Care Team (Late st Contact Info) Description 08/27/2022 [facility] [address] 4th [place] [address] Mariana Acosta PA-C [address] [facility] [address] [place] [address] Social History Tobacco Use Types Packs/Day Years Used Date Smoking Tobacco: Former Smokeless Tobacco: Never Alcohol Use Standard Drinks/Week Comments Not Currently 0 (1 standard drink = 0.6 oz pur e alcohol) rare [place] Depression Scale Answer Date Recorded [place] Depression Score 1 07/06/2021 Last EPDS Self Harm Result Not on file 07/06 Comments No Sex and Gender Information Value Date Recorded Sex Assigned at Female 06/03/2022 7:36 AM CDT 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 Gender Identity Female 06/03/2022 7:36 AM CDT [...] documented as of this encounter Care Teams Shop Worker Relationship Specialty Start Date End Date [facility], [facility] [address] [place] [address] PCP - General 01/02/14 03/23/23 [place] [address] [place] [address] PCP - General Family Medicine 03/13/25 Leatha Wagner APRN [employer] [address] [place] [address] [phone] Assigned Surgical Provider 11/02/21 09/04/22 Mariana Acosta PA-C [address] [facility] [address] [place], [place] [phone] Assigned Surgical Provider 09/05/22 12/09/23 Lucas Nuno MD [address] [place] [address] Assigned Surgical Provider 12/10/23 01/07/24 Mariana Acosta PA-C [address] [place] [address] Assigned Surgical Provider 01/08/24 03/08/24 Lucas Nuno MD [address] [place] [address] Assigned Surgical Provider 03/09/24 12/09/24 Mariana Acosta PA-C [address] [place] [address] Assigned Surgical Provider 12/10/24 02/06/25 Purvi Jeong [facility] [address] [place] [address] [phone] Pharmacist Pharmacist Manufacturing Plant Technician 01/03/25 Lucas Nuno MD [address] [place] [address] Assigned Surgical Provider 02/07/25 Meghan Cox [facility] [address] [place] [address] Pharmacist Pharmacist Manufacturing Plant Technician 03/20/25 documented as of this encounter
--- OUTSIDE RECORDS SUMMARY | 2025-05-27 15:21 | XMS_ITS | Encounter Summary ---
Author Organization [place] Address [facility] [place] [address] Care Team Providers Care Salon Supervisor Name Role Phone [facility] Primary Care Provider Leatha Wagner APRN [facility] Unavailable [phone] Mariana Acosta-C Unavailable + [phone] Sarah Juares MD Primary Care Provider [phone] Lucas Nuno MD Unavailable +- [phone] Mariana AcostaC Unavailable [phone] Lucas Nuno MD Unavailable +- 11 Mariana AcostaC Unavailable [phone] Purvi Jeong [facility] Unavailable [phone] Lucas Nuno MD Unavailable [phone]- [phone] Meghan Cox [facility] Unavailable [phone] Encounter Details Date Type Department Care Team (Late st Contact Info) Description 06/10/2022 [facility] Medical Advice [facility] [address] 4th [place] [address] Giuliana Masterson Social History Tobacco Use Types Packs/Day Years Used Date Smoking Tobacco: Former Smokeless Tobacco: Never Alcohol Use Standard Drinks/Week Comments Not Currently 0 (1 standard drink = 0.6 oz pur e alcohol) rare Rosie Depression Scale Answer Date Recorded Rosie Depression Score 1 07/06/2021 Last EPDS Self Harm Result Not on file 07/06 Comments No Sex and Gender Information Value Date Recorded Sex Assigned at Female 06/03/2022 7:36 AM CDT 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 COP EXAMINER Gender Identity Female 06/03/2022 7:36 AM CDT Sexual Orientation Straight 06/03/2022 7: 36 AM CDT COVID-19 Exposure Response Date Recorded In the last 10 days, have yo u been in contact with someone who was confirmed or suspected to have Coronavirus/COVID-19? No / Unsure 06/10/2022 11:24 AM CDT documented as of this encounter Plan of Treatment Not on file documented as of this encounter Visit Diagnoses Not on filedocumented in this encounter Additional Health Concerns Infection Onset Date Last Indicated Resolved Time Rule Out COVID-19 04/19/2023 04/19/2023 04/19/2023 5:29 AM CDT documented as of this encounter Care Teams Salon Supervisor Relationship Specialty Start Date End Date [facility] [address] [place] [address] PCP - General 01/02/14 03/23/23 [place] [address] [place] [address] PCP - General Family Medicine 03/13/25 Leatha Wagner APRN HORTICULTURE INSTRUCTOR [address] [place] [address] Assigned Surgical Provider 11/02/21 09/04/22 Mariana Acosta PA-C [address] [place] [address] Assigned Surgical Provider 09/05/22 12/09/23 Lucas Nuno MD [address] [address] Assigned Surgical Provider 12/10/23 01/07/24 Mariana Acosta PA-C [address] [address] Assigned Surgical Provider 01/08/24 03/08/24 Lucas Nuno MD [address] [address] Assigned Surgical Provider 03/09/24 12/09/24 Mariana Acosta PA-C [address] [address] Assigned Surgical Provider 12/10/24 02/06/25 Purvi Jeong [facility] [address] [place] [address] Pharmacist Pharmacist Compressor House Operator 01/03/25 Lucas Nuno MD [address] [address] Assigned Surgical Provider 02/07/25 Meghan Cox [facility] [address] [place] [address] Pharmacist Pharmacist Compressor House Operator 03/20/25 documented as of this encounter
--- OUTSIDE RECORDS SUMMARY | 2025-05-27 15:21 | XMS_ITS | Clinical Summary ---
Author Organization [facility] Address [address] [facility] [place] [address] Care Team Providers Care Log Hooker Name Role Phone Provider, No Primary Primary [...] Active Active Problems No known active problems Family History Medical History Relation Name Comments Heart Disease Father Relation Name Status Comments Father Alive Mother Alive Social History Tobacco Use Types Packs/Day [...] on file Legal Sex Female 8:59 PM CONSULTING SOLUTION DIRECTOR Gender Identity Not on file Sexual Orientation Not on file Last Filed Vital Signs Vital Sign Reading Time Taken Comments Blood Pressure 123/87 11/14/2023 9:14 AM CONSULTING SOLUTION DIRECTOR Pulse 90 11/14/2023 9:14 AM CONSULTING SOLUTION DIRECTOR Temperature 36.9 C (98.5 F) 11/14/2023 9:14 AM CONSULTING SOLUTION DIRECTOR Respiratory Rate - - Oxygen Saturation 98% 11/14/2023 9:14 AM CONSULTING SOLUTION DIRECTOR Inhaled Oxygen Concentration - - Weight 122.9 kg (271 lb) 01/31/2016 4:54 PM CDT Height 175.3 cm (5' 9) 01/31/2016 4:54 PM CDT Body Mass Index 40.02 01/31/2016 4:54 PM CDT Plan of Treatment Health Maintenance Due Date Last Done Comments HPV Testing 1994 Hepatitis C Testing 1994 Depression Screening 2006 Hepatitis B Vaccines (3 of 3 - 3-dose series) 12/09/2006 10/14/2006, 06/09/2006 HIV Screen 2009 HPV Vaccines (3 - 3-dose series) 12/09/2012 08/31/2012, 06/08/2012 Pneumococcal Vaccine (0-49 Years) (1 of 2 - PCV) 2013 COVID-19 Vaccine ( season) 2024 12/26/2021, 06/26/2021, 05/27/2021 Influenza Vaccine (#1) 2025 9, 07/20/2019, 12/01/2018 Cervical Cancer Screening 12/19/2025 12/19/2020, DTaP/Tdap/Td Vaccines (5 - Td or Tdap) 05/14/2031 05/14/2021, 09/28/2016, 06/09/2006, Additional history exists Colonoscopy 2039 02/13/2011 Colorectal Cancer Screening 2039 Varicella Zoster Sequential (1 of 2) 2044 Respiratory Syncytial Virus (RSV) Vaccine (1 - 1-dose 75+ series) 2069 HIB Vaccines Aged Out No longer eligi ble based on patient's age to complete this topic Hepatitis A Vaccines Aged Out No long er eligible based on patient's age to complete this topic Meningococcal B Vaccines Aged Out No longer eligible based on patient's age to complete this topic Meningococcal Vaccines Aged Out No lo nger eligible based on patient's age to complete this topic Procedures Procedure Name Priority Date/Time Associated Diagnosis Comments PAP REFLEX HPV (AGE 21 OR OLDER) 08/08/2010 12:00 AM CDT from Last 3 Months or Most Recently Relevant to Health Maintenance Results * PAP REFLEX HPV (AGE 21 OR OLDER) (08/08/2010 12:00 AM CDT) 08/08/2010 08/12/2010 7:4 4 AM CDT Narrative [facility] - 08/06/2011 1:34 AM CDT RUN DATE: 08/06/11 [facility] PAGE 1 RUN TIME: [address] [place] [address] RUN USER: [employer] CYTOLOGY REPORT ----- ------- PATIENT: KALEB ALEMAN LOC: XSBC U #: [id number] : 89 AGE/SX: 15/F ROOM: RE08/08/[address]: Tom MASON,Angel Kane STATUS: REG REF BED: DIS: ----- ------- SPEC #: [id number] RECD: 08/12/10 STATUS: RONI SAMUELS #: [id number] MELANIE: 08/08/10- SUBM DR: Angel Santos MD ENTERED: 08/12/10 SP TYPE: THINPREP OTHR DR: ORDERED: [id number], THINPREP PAP PAP CLINICAL DATA LMP: 07-21-10 : NO HORMONE THERAPY: NO PREVIOUS SMEAR: NO PT. PHONE #: [phone] PT. ADDRESS: [place] [address], [place], [place] CYTOLOGY RESULTS SPECIMEN ADEQUACY: SATISFACTORY FOR EVALUATION. RESULTS: NEGATIVE FOR INTRAEPITHELIAL LESION OR MALIGNANCY. Signed Electronically Signed JAKE TERAN 08/12/10 ----- ------- END OF REPORT Procedure Note 08/08/2011 RUN DATE: 08/06/11 [facility] LABORATORYPAGE 1 RUN TIME: [address] [place] [address] RUN USER: [employer] CYTOLOGY REPORT ----- ------- PATIENT: KALEB ALEMAN LOC: XSBCU #: [id number] : 89 AGE/SX: 15/F ROOM:RE08/08/[address]: Angel Santos MD STATUS: REG REF BED:DIS: ----- ------- SPEC #: [id number] RECD: 08/12/10 STATUS: MATT #: [id number] MELANIE: 08/08/10- SUBM DR: Pop Santos MD. ENTERED: 08/12/10 SP TYPE: THINPREP OTHR DR: ORDERED: [id number], THINPREP PAP PAP CLINICAL DATA LMP: 07-21-10 : NO HORMONE THERAPY: NO PREVIOUS SMEAR: NO PT. PHONE #: [phone] PT. ADDRESS: [address], [place] CYTOLOGY RESULTS SPECIMEN ADEQUACY: SATISFACTORY FOR EVALUATION. RESULTS: NEGATIVE FOR INTRAEPITHELIAL LESION OR MALIGNANCY. Signed Electronically Signed JAKE TERAN 08/12/10 ----- ------- END OF REPORT us Angel Santos MD [employer] CYTOLOGY Final Resul t [address] [address] from Last 3 Months or Most Recently Relevant to Health Maintenance Insurance [facility] Care Teams Log Hooker Relationship Specialty Start Date End Date Provider, No Primary . [place] [address] PCP - General 01/31/16 Additional Source Comments PLEASE NOTE: Replies to this message will not be received.[facility]
--- OUTSIDE RECORDS SUMMARY | 2025-05-27 15:21 | XMS_ITS | Encounter Summary ---
Author Organization [place] Address [address] [facility] [place] [address] Care Team Providers Care Tire And Tube Repairer Name Role Phone Mariana Acosta-Noreen Unavailable + [phone] Sarah Juares MD Primary Care Provider [phone] Lucas Nuno MD Unavailable [phone] Mariana AcostaC Unavailable + [phone] Lucas Nuno MD Unavailable [phone] Mariana Acosta-C Unavailable +[phone] Purvi Jeong [facility] Unavailable [phone] Lucas Nuno MD Unavailable +[phone] Meghan Cox [facility] Unavailable +[phone] Encounter Details Date Type Department Care Team (Late st Contact Info) Description 05/12/2023 [facility] [address] [place] [address] Xochitl Cooley Social History Tobacco Use Types Packs/Day Years Used Date Smoking Tobacco: Former Smokeless Tobacco: Never Alcohol Use Standard Drinks/Week Comments Not Currently 0 (1 standard drink = 0.6 oz pur e alcohol) rare PHQ-2 Answer Date Recorded PHQ-2 Score 0 05/12/2023 [place] Depression Scale Answer Date Recorded [place] Depression Score 1 07/06/2021 Last EPDS Self Harm Result Not on file 07/06 Comments No Sex and Gender Information Value Date Recorded Sex Assigned at Female 06/03/2022 7:36 AM CDT 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 DEMO EVENT SPECIALIST Gender Identity Female 06/03/2022 7:36 AM CDT [...] on filedocumented in this encounter Care Teams Tire And Tube Repairer Relationship Specialty [place] [address] [facility] [facility] [place] [address] PCP - General Family Medicine 03/13/25 Mariana Acosta PA-C [address] [address] Assigned Surgical Provider 09/05/22 12/09/23 Lucas Nuno MD [address] [address] Assigned Surgical Provider 12/10/23 01/07/24 Mariana Acosta PA-C [address] [address] Assigned Surgical Provider 01/08/24 03/08/24 Lucas Nuno MD [address] [address] Assigned Surgical Provider 03/09/24 12/09/24 Mariana Acosta PA-C [address] [address] Assigned Surgical Provider 12/10/24 02/06/25 Purvi Jeong [facility] [address] [place] [address] Pharmacist Pharmacist Blade Worker 01/03/25 Lucas Nuno MD [address] [address] Assigned Surgical Provider 02/07/25 Meghan Cox [facility] [address] [place] [address] Pharmacist Pharmacist Blade Worker 03/20/25 documented as of this encounter
--- OUTSIDE RECORDS SUMMARY | 2025-05-27 15:21 | XMS_ITS | Encounter Summary ---
Author Organization [place] Address [address] [place] [address] Care Team Providers Care Digital Marketing Assistant Name Role Phone Mariana Acosta-Noreen Unavailable + [phone] Sarah Juares MD Primary Care Provider [phone] Lucas Nuno MD Unavailable [phone] Mariana AcostaC Unavailable + [phone] Lucas Nuno MD Unavailable [phone] Mariana Acosta-C Unavailable + [phone] Purvi Jeong [facility] Unavailable [phone] Lucas Nuno MD Unavailable +[phone] Meghan Cox [facility] Unavailable +[phone] Encounter Details Date Type Department Care Team (Late st Contact Info) Description 05/12/2023 [facility] [address] [place] [address] Christiano Hull Social History Tobacco Use Types Packs/Day Years Used Date Smoking Tobacco: Former Smokeless Tobacco: Never Alcohol Use Standard Drinks/Week Comments Not Currently 0 (1 standard drink = 0.6 oz pur e alcohol) rare PHQ-2 Answer Date Recorded PHQ-2 Score 0 05/12/2023 [place] Depression Scale Answer Date Recorded [place] Depression Score 1 07/06/2021 Last EPDS Self Harm Result Not on file 07/06 Comments No Sex and Gender Information Value Date Recorded Sex Assigned at Female 06/03/2022 7:36 AM CDT 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 CART 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 Gender Identity Female 06/03/2022 7:36 AM [...] on filedocumented in this encounter Care Teams Digital Marketing Assistant Relationship Specialty [place] [address] [facility] [place] [address] PCP - General Family Medicine 03/13/25 Mariana Acosta PA-C [address] [address] Assigned Surgical Provider 09/05/22 12/09/23 Lucas Nuno MD [address] [address] Assigned Surgical Provider 12/10/23 01/07/24 Mariana Acosta PA-C [address] [address] Assigned Surgical Provider 01/08/24 03/08/24 Lucas Nuno MD [address] [address] Assigned Surgical Provider 03/09/24 12/09/24 Mariana Acosta PA-C [address] [place] [address] Assigned Surgical Provider 12/10/24 02/06/25 Purvi Jeong [facility] [address] [place] [address] Pharmacist Pharmacist Circulating Nurse 01/03/25 Lucas Nuno MD [address] [place] [address] Assigned Surgical Provider 02/07/25 Meghan Cox [place] [address] [place] [address] Pharmacist Pharmacist Circulating Nurse 03/20/25 documented as of this encounter
--- OUTSIDE RECORDS SUMMARY | 2025-05-27 15:21 | XMS_ITS | Encounter Summary ---
Author Organization [place] Address [facility] [place] [address] Care Team Providers Care Capture Manager Name Role Phone [facility] Primary Care Provider Leatha Wagner APRN [facility] Unavailable [phone] Mariana Acosta-C Unavailable + [phone] Sarah Juares MD Primary Care Provider [phone] Lucas Nuno MD Unavailable +[phone] Mariana AcostaC Unavailable +[phone] Lucas Nuno MD Unavailable +[phone] Mariana AcostaC Unavailable +[phone] Purvi Jeong [facility] Unavailable [phone] Lucas Nuno MD Unavailable +[phone] Meghan Cox [facility] Unavailable [phone] Encounter Details Date Type Department Care Team (Late st Contact Info) Description 06/11/2022 Bree Damon [facility] [address] [place] [address] Keena Valente Social History Tobacco Use Types Packs/Day Years Used Date Smoking Tobacco: Former Smokeless Tobacco: Never Alcohol Use Standard Drinks/Week Comments Not Currently 0 (1 standard drink = 0.6 oz pur e alcohol) rare [place] Depression Scale Answer Date Recorded [place] Depression Score 1 07/06/2021 Last EPDS Self Harm Result Not on file 07/06 Comments No Sex and Gender Information Value Date Recorded Sex Assigned at Female 06/03/2022 7:36 AM CDT 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 HOURLY CAREGIVER Gender Identity Female 06/03/2022 7:36 AM CDT [...] documented as of this encounter Care Teams Capture Manager Relationship Specialty Start Date End Date [facility] [address] [place] [address] PCP - General 01/02/14 03/23/23 [place] [address] [place] [address] PCP - General Family Medicine 03/13/25 Leatha Wagner APRN [employer] [address] [place] [address] Assigned Surgical Provider 11/02/21 09/04/22 Mariana Acosta PA-C [address] [place] [address] Assigned Surgical Provider 09/05/22 12/09/23 Lucas Nuno MD [address] [address] Assigned Surgical Provider 12/10/23 01/07/24 Mariana Acosta PA-C [address] [address] Assigned Surgical Provider 01/08/24 03/08/24 Lucas Nuno MD [address] [address] Assigned Surgical Provider 03/09/24 12/09/24 Mariana Acosta PA-C [address] [address] Assigned Surgical Provider 12/10/24 02/06/25 Purvi Jeong [facility] [address] [place] [address] Pharmacist Pharmacist [employer] 01/03/25 Lucas Nuno MD [address] [address] Assigned Surgical Provider 02/07/25 Meghan Cox [facility] [address] [place] [address] Pharmacist Pharmacist [employer] 03/20/25 documented as of this encounter
--- NOTE | 2025-05-27 15:27 | ED.CHESTPAIN ---
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 Patient states that she awoke this morning with some chest pain she describes this as mild in the anterior chest but more prevalent in the left posterior ribcage especially with deep breathing. The shortness of breath began approximately 1100 hours. She notes that she can breathe but it hurts to breathe. She has had multiple blood clots in the past. She states that since June when she started on folic acid she has only had 1 blood clot in July of 2024. 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 She also has a history of requiring blood transfusions every 5-6 months along with iron transfusions. She last had that done 8 months ago. She notes that last night she and a friend did go out to which is unusual for her. She has been drinking water since that time and does not feel that she would be dehydrated. She has however been sweating profusely since the pain in her chest has increased. She denies any possibility of as she is currently menstruating. She denies a history Of anxiety. Recent hospitalization at [facility] for a postsurgical complication was March 18. Patient had hiatal hernia repair on March 14 along with removal of an ulcer. In the past she had had a gastric sleeve but that was also removed. On March 18 she presented to [facility] with a possible leak from the surgery but this was disproved. Patient denies any calf tenderness. Has noted some tenderness in left anterior thigh but otherwise no lower extremity edema. Related Data Home Medications ?Medication ?Instructions ?Recorded ?Confirmed albuterol 90 mcg/actuation aerosol mcg inhalation 05/18/24 inhaler ferrous sulfate 325 mg (65 mg 325 mg PO DAILY 05/18/24 05/27/25 iron) tablet (Feosol) pantoprazole 40 mg tablet,delayed 40 mg PO DAILY 05/18/24 05/27/25 release (Protonix) potassium 99 mg tablet mg 05/18/24 escitalopram oxalate 10 mg tablet 10 mg PO QAM 05/27/25 05/27/25 tizanidine 4 mg tablet 4 mg PO 3XD PRN muscle spasm 05/27/25 05/27/25 Allergies Allergy/AdvReac Type Severity Reaction Status Date / Time azithromycin Allergy Unknown Verified 05/27/25 15:59 hydrocodone Allergy Unknown Verified 05/27/25 15:59 tramadol Allergy Unknown Verified 05/27/25 15:59 Review of Systems Status of ROS Reports: 10 or more systems reviewed and unremarkable except as noted in History and below Const Denies: fever, chills or fatigue Eyes Denies: change in vision ENMT Denies: throat pain, neck pain or nasal congestion Cardio Reports: chest pain and shortness of breath with exertion; Denies: palpitations, edema, swelling of feet/ankles or lightheadedness Resp Reports: shortness of breath; Denies: cough GI Denies: abdominal pain, nausea or vomiting Denies: painful urination Musculo Reports: back pain and extremity pain; Denies: neck pain or extremity swelling Integ/Breast Denies: rash or redness Neuro Denies: headache Endo Denies: fatigue PFSH PFSH Social History Smoking Status: Current every day smoker Do you use any of these nicotine containing products: Vaping Products How often do you have a drink containing alcohol: never AUDIT-C Alcohol total score: 0 Non-prescribed substance use: denies use Exam Narrative Exam Narrative: Alert and oriented. Positive anxious given rapid heart rate. However mentation and speech is normal. External ears eyes nose clear. Heart with a rapid rate but regular rhythm. Lungs are clear bilaterally. Abdomen soft. Lower extremities with no calf tenderness and negative Jadon sign. Const Vital Signs, click to edit/add: Vital Signs - 24 hr 05/27/25 15:19 05/27/25 15:45 05/27/25 15:47 Temperature 97.6 F Pulse Rate 124 H 128 H Pulse Rate [Right Pulse Oximeter] 123 H Respiratory Rate 18 19 20 Blood Pressure 130/88 Blood Pressure [Right Upper Arm] 139/95 H Pulse Oximetry 97 96 98 Oxygen Delivery Method Room Air 05/27/25 15:48 05/27/25 16:02 05/27/25 16:03 Temperature Pulse Rate 128 H 126 H 116 H Pulse Rate [Right Pulse Oximeter] Respiratory Rate 18 19 Blood Pressure 138/91 H Blood Pressure [Right Upper Arm] Pulse Oximetry 97 97 98 Oxygen Delivery Method 05/27/25 16:15 05/27/25 16:17 05/27/25 16:30 Temperature Pulse Rate 114 H 111 H 105 H Pulse Rate [Right Pulse Oximeter] Respiratory Rate 18 16 Blood Pressure 130/95 H Blood Pressure [Right Upper Arm] Pulse Oximetry 98 98 98 Oxygen Delivery Method 05/27/25 16:32 05/27/25 16:45 05/27/25 16:47 Temperature Pulse Rate 114 H 106 H 110 H Pulse Rate [Right Pulse Oximeter] Respiratory Rate Blood Pressure 129/100 H 137/101 H Blood Pressure [Right Upper Arm] Pulse Oximetry 98 98 98 Oxygen Delivery Method 05/27/25 16:48 05/27/25 19:33 Temperature Pulse Rate 105 H Pulse Rate [Right Pulse Oximeter] 104 H Respiratory Rate 20 18 Blood Pressure Blood Pressure [Right Upper Arm] 126/96 H Pulse Oximetry 99 98 Oxygen Delivery Method Room Air Documenting provider has reviewed patient's vital signs: yes Course Course ED Course: Differential diagnosis includes but is not limited to acute coronary event, angina, arrhythmia, PE, pneumonia, anemia, anxiety. Will place IV and will give fluid bolus of 250 mL. Will check CBC, comprehensive panel, troponin, D-dimer, CT of the chest PE protocol. Will also give Valium 2.5 mg IV to see if anxiety adrenaline is also pushing heart rate up. Given patient's history of frequent P, even though she has not missed any of her doses anticoagulant do feel strongly that we would need to rule this out and she is in agreement. If chest pain continues will also use morphine if needed. Reevaluation(s) Reevaluation #1: Patient back from CT. Heart rate is now decreased to 1 teens. She states she is not feeling any better however and thus I do order morphine 4 mg IV. On her chart she does have hydrocodone and tramadol listed as allergies but she notes that she does not know why hydrocodone as listed. She has had morphine in the past without difficulty. She is receptive to receiving today. Troponin is negative and I do inform her that her hemoglobin is 12.7. Reevaluation #2: CT of the chest shows no evidence of PE. Further, D-dimer is normal. Patient received additional L of fluid given these findings and she is now in a sinus rhythm at a rate of 99. I do not note any acute ST or T-wave changes. Second troponin is 0.04, technically within normal limits but an increased from the 0.0 at upon arrival. Will check a troponin for the 3rd time at approximately 1925 hours. Reevaluation #3: Patient noted an increase in her pain once again. We repeated her dose Valium and was she was noted to be feeling better. Also gave her additional 500 mL of normal saline. The 3rd troponin was 0.00. EKG has no obvious acute changes. Upon further discussion patient does note that she was drinking quite a bit last night. Her drug of choice is gin and tonic. I do think a lot of her symptoms are likely related to the alcohol use last night. Fortunately, her heart rate has normalized. Her EKG is normal, she has 2- troponins. CT is without evidence of PE and her D-dimer is normal. Did check a urinalysis which showed RBCs but she is currently on her. No evidence of white cells. Will send this for a culture. Vital Signs Vital signs: Initial Vital Signs Temperature 97.6 F 05/27/25 15:19 Temperature Source Temporal Artery Scan 05/27/25 15:19 Pulse Rate 123 H 05/27/25 15:19 Pulse Rhythm Regular 05/27/25 15:19 Pulse Strength 3+ Normal 05/27/25 15:19 Respiratory Rate 18 05/27/25 15:19 Blood Pressure 139/95 H 05/27/25 15:19 Blood Pressure Mean 109 H 05/27/25 15:19 Blood Pressure Position Sitting 05/27/25 15:19 Pulse Oximetry 97 05/27/25 15:19 Oxygen Delivery Method Room Air 05/27/25 15:19 Vital Signs Temperature 97.6 F 05/27/25 15:19 Pulse Rate 123 H 05/27/25 15:19 Respiratory Rate 18 05/27/25 15:19 Blood Pressure 139/95 H 05/27/25 15:19 Pulse Oximetry 97 05/27/25 15:19 Oxygen Delivery Method Room Air 05/27/25 15:19 Temperature 97.6 F 05/27/25 15:19 Pulse Rate 104 H 05/27/25 19:33 Respiratory Rate 18 05/27/25 19:33 Blood Pressure 126/96 H 05/27/25 19:33 Pulse Oximetry 98 05/27/25 19:33 Oxygen Delivery Method Room Air 05/27/25 19:33 Medications Administered Medications: Discontinued Medications Generic Name Dose Route Start Last Admin Trade Name García PRN Reason Stop Dose Admin Diazepam 2.5 mg 05/27/25 15:43 05/27/25 16:28 Diazepam 5 Mg/Ml Inj IV 05/27/25 15:44 2.5 mg ONCE ONE Administration Diazepam 5 mg 05/27/25 19:21 05/27/25 19:27 Diazepam 5 Mg/Ml Inj IV 05/27/25 19:22 5 mg ONCE ONE Administration Sodium Chloride 250 mls @ 250 mls/hr 05/27/25 15:43 05/27/25 17:22 0.9 % Sodium Chloride 250 Ml IV 05/27/25 16:42 Infused .Q1H ONE Infusion Sodium Chloride 1,000 mls @ 1,000 mls/hr 05/27/25 16:43 05/27/25 19:00 0.9 % Sodium Chloride 1000 Ml IV 05/27/25 17:42 Infused .Q1H BENNIE Infusion Morphine Sulfate 4 mg 05/27/25 16:10 05/27/25 16:29 Morphine 4 Mg/Ml Inj IVP 05/27/25 16:11 4 mg ONCE ONE Administration MDM - Chest Pain MDM Narrative Medical decision making narrative: 1. Atypical chest pain-patient noted to have rapid heart rate upon presentation in association with chest discomfort. However, chest pain much improved with Valium and morphine. Troponin negative x3, EKG without evidence of ST or T-wave changes and with fluids heart rate improved. At this time no evidence of underlying PE and D-dimer is negative. Patient has not missed any doses of her anticoagulant. Reassurance at this time. Patient does note that she is feeling better. This may be sequela of alcohol use last night which patient does describe as quite a bit. 2. Dehydration-improved with IV fluids. Tachycardia from 120s to 90s. 3. History of PE-see 1. 4. Disposition-patient agrees that she feels comfortable going home at this time. She is requesting something for the anxiety that she has been feeling. I have given her a prescription of hydroxyzine 25 mg p.o. Q to 68 hours p.r.n. number 30 tablets from our [facility] med[facility] machine. However, should she started experiencing more chest pain, shortness of breath, onset of new symptoms I would like her to return to the ER for further evaluation. Note prior to discharge heart rate in the 90s. Patient agrees to return for ongoing or worsening symptoms. Medical Records Data Attestation: I reviewed the patient's medical records. Lab Data Attestation: I reviewed the patient's lab results. Labs: Lab Results 05/27/25 05/27/25 05/27/25 Range/Units 15:43 15:45 15:51 WBC 6.67 (4.50-11.00) K/uL RBC 3.40 L (4.00-5.20) m/uL Hgb 12.7 (12.0-16.0) gm/dL Hct 35.7 (33.0-51.0) % MCV 105 H (80-100) fL MCH 37 H (26-34) pg MCHC 36 (32-36) gm/dL RDW Coeff of Shimon 18.7 H (11.5-15.5) % Plt Count 241 (140-440) K/uL Neut % (Auto) 66.1 (42.0-72.0) % Lymph % (Auto) 26.5 (20-44) % [place] % (Auto) 5.5 (0.0-11.0) % Eos % (Auto) 1.2 (0.0-7.0) % Baso % (Auto) 0.4 (0.0-3.0) % Neut # (Auto) 4.40 (1.7-7.0) K/uL Lymph # (Auto) 1.77 (0.90-2.90) K/uL [place] # (Auto) 0.40 (0.00-0.90) K/UL Eos # (Auto) 0.08 (0.00-0.50) K/uL Baso # (Auto) 0.03 (0.00-0.30) K/uL Abs Immat Gran (auto) 0.02 (0.00-0.30) K/uL Imm/Tot Granulo (auto) 0.3 % D-Dimer Quant (PE/DVT) 0.39 (0.00-0.50) ug/ml Sodium 137 (135-149) mmol/L Potassium 3.9 (3.6-5.1) mmol/L Chloride 104 (96-114) mmol/L Carbon Dioxide 27 (20-32) mmol/L Anion Gap 6 L (7-15) mEq/L BUN 7 (5-24) mg/dL Creatinine 0.7 (0.5-1.5) mg/dL Estimated Creat Clear 121.70 Estimated GFR 119 ml/min Glucose 91 (60-115) mg/dL Calcium 9.4 (8.4-10.6) mg/dL Magnesium 1.6 (1.5-2.6) mg/dL Total Bilirubin 1.6 H (0.1-1.5) mg/dL AST 35 (12-35) U/L ALT 22 (4-35) U/L Alkaline Phosphatase 62 (40-150) U/L Total Protein 6.9 (6.0-8.3) g/dL Albumin 3.9 (3.3-5.0) g/dL Urine Color (Yellow) Urine Appearance (Clear) Urine pH (5.0-8.5) Ur Specific Beth[place] (1.000-1.030) Urine Protein (Negative) Urine Glucose (UA) (Negative) Urine Ketones (Negative) Urine Blood (Negative) Urine Nitrite (Negative) Urine Bilirubin (Negative) Urine Urobilinogen (0.2-1.0) Ur Leukocyte Esterase (Negative) Urine RBC (0-2) Urine WBC (0-5) Ur Squamous Epith Cells (None-Few) Urine Bacteria (None) POC Troponin I 0.00 L (0.01-0.04) ng/ml 05/27/25 05/27/25 05/27/25 Range/Units 17:40 19:23 19:50 WBC (4.50-11.00) K/uL RBC (4.00-5.20) m/uL Hgb (12.0-16.0) gm/dL Hct (33.0-51.0) % MCV (80-100) fL MCH (26-34) pg MCHC (32-36) gm/dL RDW Coeff of Shimon (11.5-15.5) % Plt Count (140-440) K/uL Neut % (Auto) (42.0-72.0) % Lymph % (Auto) (20-44) % [place] % (Auto) (0.0-11.0) % Eos % (Auto) (0.0-7.0) % Baso % (Auto) (0.0-3.0) % Neut # (Auto) (1.7-7.0) K/uL Lymph # (Auto) (0.90-2.90) K/uL [place] # (Auto) (0.00-0.90) K/UL Eos # (Auto) (0.00-0.50) K/uL Baso # (Auto) (0.00-0.30) K/uL Abs Immat Gran (auto) (0.00-0.30) K/uL Imm/Tot Granulo (auto) % D-Dimer Quant (PE/DVT) (0.00-0.50) ug/ml Sodium (135-149) mmol/L Potassium (3.6-5.1) mmol/L Chloride (96-114) mmol/L Carbon Dioxide (20-32) mmol/L Anion Gap (7-15) mEq/L BUN (5-24) mg/dL Creatinine (0.5-1.5) mg/dL Estimated Creat Clear Estimated GFR ml/min Glucose (60-115) mg/dL Calcium (8.4-10.6) mg/dL Magnesium (1.5-2.6) mg/dL Total Bilirubin (0.1-1.5) mg/dL AST (12-35) U/L ALT (4-35) U/L Alkaline Phosphatase (40-150) U/L Total Protein (6.0-8.3) g/dL Albumin (3.3-5.0) g/dL Urine Color Gosper A (Yellow) Urine Appearance Slightly Cloudy A (Clear) Urine pH 6.5 (5.0-8.5) Ur Specific [place] 1.015 (1.000-1.030) Urine Protein Negative (Negative) Urine Glucose (UA) Negative (Negative) Urine Ketones Negative (Negative) Urine Blood 3+ A (Negative) Urine Nitrite Negative (Negative) Urine Bilirubin Negative (Negative) Urine Urobilinogen 0.2 (0.2-1.0) Ur Leukocyte Esterase Trace A (Negative) Urine RBC 25-50 A (0-2) Urine WBC 0-2 (0-5) Ur Squamous Epith Cells Few (None-Few) Urine Bacteria Few A (None) POC Troponin I 0.04 0.00 L (0.01-0.04) ng/ml Imaging Data CT scan - chest: Attestation: I have reviewed the pertinent imaging results. Radiologist's impression: ulmonary arteries: Enhancement of the pulmonary arteries is adequate. No filling defect to the level of the proximal subsegmental pulmonary arteries. RV to LV ratio is less than 1. No reflux of contrast into the hepatic veins. Main pulmonary artery is at the upper limits of normal measuring 2.9 cm (). Heart and vasculature: Heart size is normal. Thoracic aorta is normal in caliber. No coronary vessel calcifications. Lungs and pleura: No suspicious nodules or infiltrates. Subcentimeter calcified granuloma in the right lower lobe. Patent central airways. No pleural effusions, pleural thickening, or pneumothorax. Lymph nodes/mediastinum: No mediastinal, hilar, or axillary adenopathy. Chest wall: No masses. Upper abdomen: No acute findings. Postsurgical changes of gastric surgery. Diffuse hypoattenuation of the liver. Bones: No acute fractures. No aggressive appearing lytic or blastic osseous lesions. IMPRESSION: 1. No acute pulmonary embolism to the level of the proximal subsegmental pulmonary arteries. 2. No acute cardiopulmonary process. 3. Diffuse hypoattenuation of the liver suggestive of steatosis. ECG Data Attestation: I personally reviewed and interpreted this ECG as follows: ECG interpretation date: 05/27/25 Interpretation: EKG by my read shows sinus tachycardia at a rate of 122. I do not note any acute ST or T-wave changes. QT and NV intervals within normal limits. EKG 2. Shows sinus rhythm at a rate of 99. No acute ST or T-wave changes. The QT and NV intervals are within normal limits. Discharge Plan Discharge Clinical Impression: Atypical chest pain, Dehydration Patient Disposition: Home, Self-Care Condition: Improved Additional Instructions: Hydroxyzine seen may be used for anxiety or sleep. This was available in our medication vending machine in our lobby. Recommend returning to the ED if you start experiencing more chest pain, increase in heart rate and as needed. I will call you if the urine sample appears positive for UTI. Prescriptions: No Action tizanidine 4 mg tablet 4 mg PO 3XD PRN (Reason: muscle spasm) escitalopram oxalate 10 mg tablet 10 mg PO QAM albuterol 90 mcg/actuation aerosol inhalation ferrous sulfate [Feosol] 325 mg (65 mg iron) tablet 325 mg PO DAILY pantoprazole [Protonix] 40 mg tablet,delayed release (DR/EC) 40 mg PO DAILY potassium 99 mg tablet Follow Up/Referrals: Provider,Not a Local [Primary Care Provider, Family Practice] Stand Alone Forms: [facility] Info Instructions
--- NOTE | 2025-05-27 15:43 | CRLHL7_ITS ---
For Patients: As a result of the Century Cures Act, medical imaging exams and procedure reports are released immediately into your electronic medical record. You may view this report before your referring provider. If you have questions, please contact your health care provider. INDICATION: Chest pain, cough, history of clotting disorder TECHNIQUE: CT chest PE was acquired with 100 cc Omnipaque 350 IV contrast. COMPARISON: None. FINDINGS: Pulmonary arteries: Enhancement of the pulmonary arteries is adequate. No filling defect to the level of the proximal subsegmental pulmonary arteries. RV to LV ratio is less than 1. No reflux of contrast into the hepatic veins. Main pulmonary artery is at the upper limits of normal measuring 2.9 cm (). Heart and vasculature: Heart size is normal. Thoracic aorta is normal in caliber. No coronary vessel calcifications. Lungs and pleura: No suspicious nodules or infiltrates. Subcentimeter calcified granuloma in the right lower lobe. Patent central airways. No pleural effusions, pleural thickening, or pneumothorax. Lymph nodes/mediastinum: No mediastinal, hilar, or axillary adenopathy. Chest wall: No masses. Upper abdomen: No acute findings. Postsurgical changes of gastric surgery. Diffuse hypoattenuation of the liver. Bones: No acute fractures. No aggressive appearing lytic or blastic osseous lesions. IMPRESSION: 1. No acute pulmonary embolism to the level of the proximal subsegmental pulmonary arteries. 2. No acute cardiopulmonary process. 3. Diffuse hypoattenuation of the liver suggestive of steatosis. Please note that all CT scans at this facility use dose modulation, iterative reconstruction, and/or weight-based dosing when appropriate to reduce radiation dose to as low as reasonably achievable. Dictated by Steven Muniz MD @ 05/27/2025 4:33:42 PM (Electronically Signed)
[2025-05-27 15:57] LABS: Hematocrit 35.7 % (33.0-51.0); Hemoglobin* 12.7 gm/dL (12.0-16.0); Immature Granulocytes Abs Auto 0.02 K/uL (0.00-0.30); Immature Granulocytes Pct Auto 0.3 %; Lymphocytes Absolute Auto 1.77 K/uL (0.90-2.90); Mean Corpuscular HGB Conc 36 gm/dL (32-36); Mean Corpuscular Hemoglobin 37 pg (26-34); Mean Corpuscular Volume 105 fL (80-100); RDW Coefficient of Variation % 18.7 % (11.5-15.5); Red Blood Count 3.40 m/uL (4.00-5.20); White Blood Count* 6.67 K/uL (4.50-11.00)
[2025-05-27 15:58] LABS: Troponin, Point-of-Care* 0.00 ng/ml (0.01-0.04)
[2025-05-27 15:58] LABS: Slide Review Reflex No
--- OUTSIDE RECORDS SUMMARY | 2025-05-27 16:01 | XMS_ITS ---
Author Name Interface, [id number] lity Address [address] [place] [address] [address] [address] [facility] Address [address] [facility] [address] [address] Allergies and Adverse Reactions Medication/Group Name Reaction Severity Date NSAIDS (Non-Steroidal Anti-Inflammatory Drug) 07/05/2023 Zithromax 07/05/2023 Plan Date Type Value 04/12/2024 APPOINTMENT OV 20 MIN 04/05/2024 APPOINTMENT OV 20 MIN 12/10/2023 APPOINTMENT OV 20 MIN 12/08/2023 APPOINTMENT LAB 15 MIN 12/07/2023 APPOINTMENT LAB 15 MIN 12/06/2023 APPOINTMENT LAB 15 MIN 12/03/2023 APPOINTMENT OUTSIDE TEST 5 M IN 10/01/2023 APPOINTMENT OV 20 MIN 09/24/2023 APPOINTMENT LAB 10 MIN 08/19/2023 APPOINTMENT OUTSIDE TEST 5 M IN 07/28/2023 APPOINTMENT OUTSIDE TEST 5 M IN 07/14/2023 APPOINTMENT TREATMENT 1 HR 07/07/2023 APPOINTMENT CHART CHECK 5 [place] N 07/05/2023 APPOINTMENT [facility] FOL LOW UP 20 MIN 07/05/2023 APPOINTMENT LAB 10 MIN 07/05/2023 LABORDER CBC w/ auto diff 07/05/2023 LABORDER Ferritin panel 07/05/2023 LABORDER Iron profile 12/03/[address] chest/abdomen /pelvis w/ IV contrast 12/08/2023 LABORDER Protein S activi ty panel 12/08/2023 LABORDER Beta 2 glycoprot ein 1 abs (IgG, IgM) 12/08/2023 LABORDER Factor II DNA an alysis panel 12/08/2023 LABORDER Antithrombin III activity panel 12/08/2023 LABORDER Factor V Leiden mutation analysis panel 12/08/2023 LABORDER Cardiolipin Anti bodies (IgG, IgM) 12/08/2023 LABORDER Ferritin panel 12/08/2023 LABORDER Protein C activi ty panel 12/08/2023 LABORDER Iron profile 12/08/2023 LABORDER Lupus anticoagul ant panel 12/08/2023 LABORDER CBC w/ auto diff Reason for Visit OV 20 MIN Encounters Date Name 07/05/2023 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 07/05/2023 Malabsorption syndro me (disorder) 07/05/2023 Pulmonary embolism ( disorder) Immunizations Date Name Route Dose Instructions Refusal Reason Stat us Covid-19 vaccine (Pfizer) Covid-19 vaccine (Pfizer) Covid-19 vaccine (Pfizer) Diagnostic Results Date Type Test Units Lower Limit Upper Limit Result Flag Comments Status Ordered By Specimen Source Lab Address 07/05 Armando tin panel Armando tin NG/ML 10.0 130.0 5.80 Low [facility] [address] [facility] [address] [phone] 0 Phone: () - 07/05 Iron profi le TIBC ug/dL 250.0 425.0 410 [facility], [address] [phone] 0 Phone: () - 07/05 Iron profi le Iron ug/dL 50.0 175.0 43 Low [facility] [address] [facility] [address] [phone] 0 Phone: () - 07/05 Iron profi le Unbou nd iron capac ity ug/dL 75.0 410.0 367 [facility], [address] [phone] 0 Phone: () - 07/05 Iron profi le Iron, % satur ation % 20.0 55.0 10 Low [facility], [address] [place] [phone] 0 Phone: () - 07/05 CBC w/ auto diff WBC K/uL 3.0 8.9 7.1 FINAL [facility] [place], [address] [place] [phone] 0 Phone: () - 07/05 CBC w/ auto diff HGB g/dL 11.3 15.2 11.5 FINAL [facility] [place], [address] [place] [phone] 0 Phone: () - 07/05 CBC w/ auto diff PLT K/uL 113.0 364.0 302 FINAL [facility] [place], [address] [place] [phone] 0 Phone: () - 07/05 CBC w/ auto diff Fly # (ANC) K/uL 1.6 6.6 4.5 FINAL [facility] [place], [address] [place] [phone] 0 Phone: () - 07/05 CBC w/ auto diff Fly % % 43.0 74.0 62.6 FINAL [facility] [place], [address] [place] [phone] 0 Phone: () - 07/05 CBC w/ auto diff IG % % 0.0 0.5 0.3 FINAL [facility] [place], [address] [place] [phone] 0 Phone: () - 07/05 CBC w/ auto diff IG # K/uL 0.0 0.03 0.02 FINAL [facility] [place], [address] [place] [phone] 0 Phone: () - 07/05 CBC w/ auto diff LY % % 14.0 41.0 29.7 FINAL [facility] [place], [address] [place] [phone] 0 Phone: () - 07/05 CBC w/ auto diff MO % % 6.0 15.0 5.9 Low FINAL [facility] [place], [address] [place] [phone] 0 Phone: () - 07/05 CBC w/ auto diff EO % % 0.0 7.0 1.4 FINAL [facility] [place], [address] [place] [phone] 0 Phone: () - 07/05 CBC w/ auto diff BA % % 0.0 2.0 0.1 FINAL [facility] [place], [address] [place] [phone] 0 Phone: () - 07/05 CBC w/ auto diff LY # K/uL 0.4 3.6 2.1 FINAL [facility] [place], [address] [place] [phone] 0 Phone: () - 07/05 CBC w/ auto diff MO # K/uL 0.2 1.3 0.4 FINAL [facility] [place], [address] [place] [phone] 0 Phone: () - 07/05 CBC w/ auto diff EO # K/uL 0.0 0.6 0.1 FINAL [facility] [place], [address] [place] [phone] 0 Phone: () - 07/05 CBC w/ auto diff BA # K/uL 0.0 0.2 0.0 FINAL [facility] [place], [address] [place] [phone] 0 Phone: () - 07/05 CBC w/ auto diff NRBC % #/100W BC 0.0 0.2 0.0 FINAL [facility] [place], [address] [place] [phone] 0 Phone: () - 07/05 CBC w/ auto diff RBC M/uL 3.9 5.1 3.81 Low FINAL [facility] [place], [address] [place] [phone] 0 Phone: () - 07/05 CBC w/ auto diff HCT % 35.0 48.0 35.8 FINAL [facility] [place], [address] [place] [phone] 0 Phone: () - 07/05 CBC w/ auto diff MCV fL 80.0 104.0 94.0 FINAL [facility] [place], [address] [place] [phone] 0 Phone: () - 07/05 CBC w/ auto diff MCH pg 26.0 35.0 30.2 FINAL [facility] [place], [address] [place] [phone] 0 Phone: () - 07/05 CBC w/ auto diff MCHC g/dL 30.0 35.0 32.1 FINAL [facility] [place], [address] [place] [phone] 0 Phone: () - 07/05 CBC w/ auto diff MPV fL 9.5 13.4 9.1 Low FINAL [facility] [place], [address] [place] [phone] 0 Phone: () - 07/05 CBC w/ auto diff RDW % 11.4 16.1 15.70 FINAL [facility] [place], [address] [place] [phone] 0 Phone: () - 01/19 [facility] other lab See superintendent geophysical laboratory d 02/17 [facility] other lab See superintendent geophysical laboratory d 03/14 [facility] other lab See superintendent geophysical laboratory d 03/27 [facility] other lab See superintendent geophysical laboratory d 04/02 [facility] other lab See superintendent geophysical laboratory d 04/06 [facility] other lab See attache patel Medications Date Name Route Dose Frequency Instructions Start Date End Date Status Ferrous Sulfate Oral active Brimonidine Topical Gel 0.33 % active Omeprazole Oral Delayed Release Capsule active Enoxaparin Subcutaneous BID active Metronidazole Vaginal Gel 0.75 % active Multivitamins Oral Tablet active 07/14 hydrocortisone 100 MG Injection intravenously 100.0 mg Re-initiate treatment only upon physician approval. 2022 active 07/14 famotidine 10 MG/ML Injectable Solution intravenously 20.0 mg Re-initiate treatment only upon physician approval. 2022 active 07/14 methylprednisol one 2000 MG Injection intravenously 125.0 mg Re-initiate treatment only upon physician approval. 2022 active 07/14 1 ML epinephrine 1 MG/ML Injection intramuscularly 0.3 mg once Re-initiate treatment only upon physician approval. 2022 active 07/14 10 ML ferric derisomaltose 100 MG/ML Injection intravenously 1000. 0 mg once For actual body weight greater than or equal to 50 kg. Dilute in 100-500 mL NS to a final concentration greater than 1 mg iron/mL. Infuse over at least 20 minutes. Do not mix or infuse with other drugs. Monitor for signs and symptoms of hypersensitivity during and for at least 30 minutes after administration. Ferric derisomaltose is an irritant. 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 INITIAL HEMATOLOGY/MEDICAL ONCOLOGY CONSULTATION Reason for Visit Anticoagulation recommendations Iron deficiency anemia Assessment #1??anticoagulation recommendations -The patient had??an unprovoked??bilateral PE??in March 2023. 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 She has been on Lovenox injections for the past 2-1/2 months, and tolerating it relative ly well with no significant bleeding issues.?? Has a follow up CT coming up.?? CT CAP from 04/2023 showed no evidence of malignancy. #2 History of iron deficiency anemia - Did receive IV iron in the hospital in April 2023 - Due to??malabsorption??in the setting of gastric sleeve surgery, and??menstrual bleeding - Taking oral iron daily Plan 1.?Continue Lovenox??at 1 mg/kg twice daily??for 6-month course??(starting 04/19/2023, ending 10/20/2023) 2.?Has an upcoming CT scan to follow-up on??her PE and IVC thrombus??on July 28. ??We will follow-up on the result 3.?Given her young age, I think it is very reasonable to perform thrombophilia testing.?? We will have her do this??a few days after coming off??Lovenox??in October 2023. ??I will plan to see her a week later to go over the results 4.?? Checking CBC and iron studies today, and??we will call the patient with results later this week 5.?? Reasonable to continue oral iron Advanced Care Planning Not discussed at this visit. Pain Scale on Today's Visit Not recorded on today's visit Pain Plan on Today's Visit No pain plan indicated for today's visit Smoking Status Smoking Status:??Smoking Tobacco : Former smoker, stopped smokin; Smokeless Tobacco : Never used smokeless tobacco; Vaping : Current vape user History of Present Illness This is a very pleasant 28-year-old lady who had??an unprovoked acute??PE involving bilateral lowerlobes??on March 23, 2023. ??She was started on anticoagulation in the form of??Xarelto.?? 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 The IVC was poorly opacified on the comparison CT so the acuity of this finding was not certain.?? There??was no??definitive evidence of malignancy.?? Due to the unknownchronicity of??the IVC thrombus, her anticoagulation was switched??from Xarelto to Lovenox??1 mg/kgtwice daily. Of note, the patient also has a history of??iron deficiency anemia??due to malabsorption and menorrhagia, requiring IV iron supplementation from time to time Review of Systems A comprehensive review of systems was performed and the pertinent positives and negatives can be found in the History of Present Illness. Past Medical and Surgical History History of iron deficiency anemia Current Medications Medication List Name Date Multivitamins Oral Tablet 07/02/2023 Omeprazole Oral Delayed Release Capsule 07/02/2023 Ferrous Sulfate Oral 07/02/2023 Metronidazole Vaginal Gel 0.75 % 023 Brimonidine Topical Gel 0.33 % 3 Lovenox (Enoxaparin Subcutaneous) 2022 Allergies Current Allergy List Allergy Name Severity Status Recording Date NSAIDS (Non-Steroidal Anti-Inflammatory Drug) Active 07/05/2023 Zithromax Active 07/05/2023 Family History Maternal grandmother had??DVT/PE, but this was in the setting of malignancy Social History Has 2 children, ages 4 and 2.?? Former smoker, quit in 2016.?? No significant alcohol use. Vital Signs Blood pressure: 152/86, Pulse: 93, Temperature: 96 F, Respirations: 16, O2 sat: 99%, Pain Scale: 0,Height: 68.75 in, Weight: 297.2 lb, BSA: 2.44, BMI: 44.21 kg/m2 Immunizations: Covid-19 vaccine (Pfizer) (07/05/2023); Covid-19 vaccine (Pfizer) (07/05/2023); Covid-19 vaccine (Pfizer) (07/05/2023); Flu vaccine - Adult (06/2022) Oxygen Sats 99% Performance Status ECOG or Karnofsky ECOG:??Not recorded. Karnofsky:?? Not recorded Physical Exam General: Awake, alert, and oriented.? Skin: ??No bruising or skin rash noted. Eyes: ?? Sclera anicteric. ?? Mouth: ??Moist mucous membranes without ulceration Lymphatics: No palpable lymphadenopathy Abdomen: ??Soft, nontender, nondistended. ??No organomegaly. Extremities: ??Well perfused, no edema. Genetics/Molecular/Biomarkers Additional Labs, Imaging and Other Studies Lab Results CBC Lab Results 07/05/2023 05/05/2023 04/22/2023 04/21/2023 04/20/2004/19/2023 CBC WBC x 10^3/uL 7.1 RBC x 10^6/uL 3.81 (L) NRBC % /100 wbc 0.0 HGB g/dL 11.5 HCT % 35.8 MCV fL 94.0 MCH pg 30.2 MCHC g/dL 32.1 RDW % 15.70 PLT x 10^3/uL 302 MPV fL 9.1 (L) Fly % 62.6 LY % 29.7 MO % 5.9 (L) EO % 1.4 IG % 0.3 Fly # (ANC) x 10^3/uL 4.5 BA % 0.1 MO # x 10^3/uL 0.4 EO # x 10^3/uL 0.1 BA # x 10^3/uL 0.0 IG # x 10^3/uL 0.02 LY # x 10^3/uL 2.1 Surveys/Consents/Other Discussions Thank you for allowing me to see??KALEB CARDONA in consult. Enzo Garg MD CC: Sarah Juares MD FAX Electronically signed by Enzo Garg MD 07/06/2023 07:47 CDT
--- OUTSIDE RECORDS SUMMARY | 2025-05-27 16:02 | XMS_ITS | CCD ---
Author Name Interface, [id number] lity Address [address] [place] [address] [facility] Address [facility] [address] [address] Care Team Providers Care Polytechnic Teacher Name Role Phone Forest MASON, Enzo Unavailable Unavailable Allergies and Adverse Reactions Reason for Visit Medications Problems Social History
--- OUTSIDE RECORDS SUMMARY | 2025-05-27 16:02 | XMS_ITS | CCD ---
Author Name Interface, [id number] lity Address [address] [place] [id number] [facility] Address [facility] [address] [address] Care Team Providers Care Psychology Department Chair Name Role Phone Forest MASON, Enzo Unavailable Unavailable Allergies and Adverse Reactions Reason for Visit Medications Problems Social History
--- OUTSIDE RECORDS SUMMARY | 2025-05-27 16:03 | XMS_ITS ---
Author Name Interface, [id number] lity Address [address] [place] [address] [address] [address] [facility] Address [address] [facility] [address] [address] Allergies and Adverse Reactions Medication/Group Name Reaction [...] 1 HR 07/07/2023 APPOINTMENT CHART CHECK 5 [place] N 07/05/2023 APPOINTMENT [facility] FOL LOW UP 20 MIN 07/05/2023 APPOINTMENT [...] NG/ML 10.0 130.0 5.80 Low [facility], [address] [facility] [address] [phone] 0 Phone: () - 07/05 Iron profi le TIBC ug/dL 250.0 425.0 410 [facility]AL [facility], [address] [phone] 0 Phone: () - 07/05 Iron profi le Iron ug/dL 50.0 175.0 43 Low [facility]AL [facility], [address] [facility] [address] [phone] 0 Phone: () - 07/05 Iron profi le Unbou nd iron capac ity ug/dL 75.0 410.0 367 [facility]AL [facility], [address] [phone] 0 Phone: () - 07/05 Iron profi le Iron, % satur ation % 20.0 55.0 10 Low [facility]AL [facility], [address] [place] [phone] 0 Phone: () - 07/05 CBC w/ auto diff WBC K/uL 3.0 8.9 7.1 FINAL [facility] [place], [address] [place] [phone] 0 Phone: () - 07/05 CBC w/ auto diff HGB g/dL 11.3 15.2 11.5 FINAL [facility] [place], [address] [place] [phone] 0 Phone: () - 07/05 CBC w/ auto diff PLT K/uL 113.0 364.0 302 FINAL [facility] [place], [address] [place] [phone] 0 Phone: () - 07/05 CBC w/ auto diff Fly # (ANC) K/uL 1.6 6.6 4.5 FINAL [facility] [place], [address] [place] [phone] 0 Phone: () - 07/05 CBC w/ auto diff Fly % % 43.0 74.0 62.6 FINAL [facility] [place], [address] [place] [phone] 0 Phone: () - 07/05 CBC w/ auto diff IG % % 0.0 0.5 0.3 FINAL [facility] [place], [address] [place] [phone] 0 Phone: () - 07/05 CBC w/ auto diff IG # K/uL 0.0 0.03 0.02 FINAL [facility] [place], [address] [place] [phone] 0 Phone: () - 07/05 CBC w/ auto diff LY % % 14.0 41.0 29.7 FINAL [facility] [place], [address] [place] [phone] 0 Phone: () - 07/05 CBC w/ auto diff MO % % 6.0 15.0 5.9 Low FINAL [facility] [place], [address] [place] [phone] 0 Phone: () - 07/05 CBC w/ auto diff EO % % 0.0 7.0 1.4 FINAL [facility] [place], [address] [place] [phone] 0 Phone: () - 07/05 CBC w/ auto diff BA % % 0.0 2.0 0.1 FINAL [facility] [place], [address] [place] [phone] 0 Phone: () - 07/05 CBC w/ auto diff LY # K/uL 0.4 3.6 2.1 FINAL [facility] [place], [address] [place] [phone] 0 Phone: () - 07/05 CBC w/ auto diff MO # K/uL 0.2 1.3 0.4 FINAL [facility] [place], [address] [place] [phone] 0 Phone: () - 07/05 CBC w/ auto diff EO # K/uL 0.0 0.6 0.1 FINAL [facility] [place], [address] [place] [phone] 0 Phone: () - 07/05 CBC w/ auto diff BA # K/uL 0.0 0.2 0.0 FINAL [facility] [place], [address] [place] [phone] 0 Phone: () - 07/05 CBC w/ auto diff NRBC % #/100W BC 0.0 0.2 0.0 FINAL [facility] [place], [address] [place] [phone] 0 Phone: () - 07/05 CBC w/ auto diff RBC M/uL 3.9 5.1 3.81 Low FINAL [facility] [place], [address] [place] [phone] 0 Phone: () - 07/05 CBC w/ auto diff HCT % 35.0 48.0 35.8 FINAL [facility] [place], [address] [place] [phone] 0 Phone: () - 07/05 CBC w/ auto diff MCV fL 80.0 104.0 94.0 FINAL [facility] [place], [address] [place] [phone] 0 Phone: () - 07/05 CBC w/ auto diff MCH pg 26.0 35.0 30.2 FINAL [facility] [place], [address] [place] [phone] 0 Phone: () - 07/05 CBC w/ auto diff MCHC g/dL 30.0 35.0 32.1 FINAL [facility] [place], [address] [place] [phone] 0 Phone: () - 07/05 CBC w/ auto diff MPV fL 9.5 13.4 9.1 Low FINAL [facility] [place], [address] [place] [phone] 0 Phone: () - 07/05 CBC w/ auto diff RDW % 11.4 16.1 15.70 FINAL [facility] [place], [address] [place] [phone] 0 Phone: () - 01/19 [facility] [place] See online communications manager d 02/17 [facility] other lab See online communications manager d 03/14 [facility] other lab See online communications manager d 03/27 [facility] other lab See online communications manager d 04[facility]02 [facility] other lab See online communications manager d 04/06 [facility] other lab See attache patel Medications Date [...]
[2025-05-27 16:07] LABS: Albumin* 3.9 g/dL (3.3-5.0); Chloride* 104 mmol/L (96-114); Sodium* 137 mmol/L (135-149)
[2025-05-27 16:08] LABS: Potassium* 3.9 mmol/L (3.6-5.1)
[2025-05-27 16:10] LABS: Alanine Aminotransferase* 22 U/L (4-35); Anion Gap 6 mEq/L (7-15); Aspartate Amino Transferase* 35 U/L (12-35); Bilirubin Total* 1.6 mg/dL (0.1-1.5); Blood Urea Nitrogen* 7 mg/dL (5-24); Carbon Dioxide* 27 mmol/L (20-32); Creatinine* 0.7 mg/dL (0.5-1.5); Est. Creatinine Clearance* 121.70; Estimated Glomerular Filt Rate 119 ml/min; Total Protein* 6.9 g/dL (6.0-8.3)
[2025-05-27 16:11] LABS: Alkaline Phosphatase* 62 U/L (40-150); Calcium* 9.4 mg/dL (8.4-10.6); Glucose* 91 mg/dL (60-115)
[2025-05-27 16:16] LABS: D Dimer Quantitative* 0.39 ug/ml (0.00-0.50)
[2025-05-27] MEDS: diazePAM 5 MG/ML inj 2.5 MG IV (16:28)
[2025-05-27] MEDS: 0.9 % SODIUM CHLORIDE 250 ml 250 ML IV (16:28)
[2025-05-27] MEDS: MORPHINE 4 MG/ML INJ IVP (16:29)
[2025-05-27 17:53] LABS: Troponin, Point-of-Care* 0.04 ng/ml (0.01-0.04)
[2025-05-27] MEDS: diazePAM 5 MG/ML inj IV (19:27)
[2025-05-27 19:30] LABS: Troponin, Point-of-Care* 0.00 ng/ml (0.01-0.04)
[2025-05-27 19:56] LABS: Appearance Urine Slightly Cloudy (Clear)
== END 2025-05-27 20:21 | disposition home or self-care (01) ==
PROVIDERS: Emergency Provider Family Medicine
DX: R07.9 Chest pain, unspecified (principal); E86.0 Dehydration
CPT/HCPCS: 36415; 71275; 80053; 81001; 83735; 84484; 85025; 85379; 87086; 93005; 96374; 96375; 96376; 99284; 99285; J2270; J3360; J7030; J7050; Q9967

== ENCOUNTER 2025-05-28 11:17 | Emergency (ER) | payer BC, SELFPAY ==
[2025-05-28 11:26] VITALS: BP 117/83; PULSE 103; RESP 18; TEMP 36.5; O2SAT 96; BMI 38.2
[2025-05-28 13:31] VITALS: PULSE 92; O2SAT 98
[2025-05-28 13:45] VITALS: PULSE 88; O2SAT 97
--- NOTE | 2025-05-28 13:47 | ED.GENADULT ---
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 She had workup including serial troponins that were within normal limits. She had a normal D-dimer and a normal CT pulmonary angiogram. Her pain was treated with morphine and then Valium and she did get better. Also notes indicate that she had had a lot of alcohol consumption on Wednesday night (the day prior to her presentation yesterday). She was tachycardic and heart rate improved after IV fluids. She wanted medication for anxiety and was given a prescription for hydroxyzine 25 mg tablets-30. Labs yesterday showed : white count of 6.67, hemoglobin 12.7, platelet count 241. D-dimer 0.39. Sodium 137, potassium 3.9, chloride 104, bicarb 27, BUN 7, creatinine 0.7, glucose 91, magnesium 1.6, calcium 9.4 Total bilirubin was 1.6. AST 35, ALT 22, alk-phos 62. Urinalysis showed 25-50 rbc's per high-power field. Point of care troponin trend serially was 0.00, 0.04, 0.00 EKGs showed sinus tachycardia and subsequently sinus rhythm. No ST segment elevation or depression. Nonspecific T-wave flattening. She felt much better after receiving IV Valium in the ER yesterday. She was of the discharge. She was woken from sleep in the middle of the night by another episode of tachycardia and chest squeezing tightness. This lasted about 25-35 minutes and went away. He is able to go back to sleep. She was able to get up this morning but felt tired and worn out (she attributes that to not having a good night sleep). She is able to go to work but had another episode while at work. She had a 3rd episode in mid morning. She came to ER after 30 seconds. At this point she is feeling better again. She did take 1 of the prescribed hydroxyzine tablets but it she feels like it did not help as well as the Valium had helped yesterday in the ER. She does not have any new cough. No fever. She does have some pain in her upper central abdomen. No right upper quadrant pain. Urination has been normal. No swelling in her legs. Related Data Home Medications ?Medication ?Instructions ?Recorded ?Confirmed albuterol 90 mcg/actuation aerosol mcg inhalation 05/18/24 inhaler ferrous sulfate 325 mg (65 mg 325 mg PO DAILY 05/18/24 05/27/25 iron) tablet (Feosol) pantoprazole 40 mg tablet,delayed 40 mg PO DAILY 05/18/24 05/27/25 release (Protonix) potassium 99 mg tablet mg 05/18/24 escitalopram oxalate 10 mg tablet 10 mg PO QAM 05/27/25 05/27/25 tizanidine 4 mg tablet 4 mg PO 3XD PRN muscle spasm 05/27/25 05/27/25 Previous Rx's ?Medication ?Instructions ?Recorded lorazepam 1 mg tablet (Ativan) 1 mg PO TID PRN #14 tabs 05/28/25 Allergies Allergy/AdvReac Type Severity Reaction Status Date / Time azithromycin Allergy Unknown Verified 05/27/25 15:59 hydrocodone Allergy Unknown Verified 05/27/25 15:59 tramadol Allergy Unknown Verified 05/27/25 15:59 PFSH PFSH Social History Smoking Status: Current every day smoker Do you use any of these nicotine containing products: Vaping Products How often do you have a drink containing alcohol: never AUDIT-C Alcohol total score: 0 Non-prescribed substance use: denies use Exam Narrative: Exam Narrative: Constitutional: Appears well-developed and well-nourished. Alert. Conversant. Non toxic. HENT: Head: Atraumatic. Nose: Nose normal. Mouth/Throat: Oral mucosa is clear and moist. no trismus. Pharynx normal. Tonsils symmetric. No tonsillar enlargement, erythema, or exudate. Eyes: Conjunctivae normal. EOM normal. Pupils equal, round, and reactive to light. No scleral icterus. Neck: Normal range of motion. Neck supple. No tracheal deviation present. Cardiovascular: Normal rate, regular rhythm. No gallop. No friction rub. No murmur heard. Symmetric radial artery pulses Pulmonary/Chest: Effort normal. No stridor. No respiratory distress. No wheezes. No rales. No rhonchi . No tenderness. Abdominal: Soft. Bowel sounds normal. No distension. No mass. No tenderness. No rebound. No guarding. Musculoskeletal: RUE: Normal range of motion. No tenderness. No deformity LUE: Normal range of motion. No tenderness. No deformity RLE: Normal range of motion. No edema. No tenderness. No deformity LLE: Normal range of motion. No edema. No tenderness. No deformity Neurological: Alert and oriented to person, place, and time. Normal strength. CN II-VII intact. No sensory deficit. GCS eye subscore is 4. GCS verbal subscore is 5. GCS motor subscore is 6. Normal coordination Skin: Malar rash on her cheeks. Skin is warm and dry. No rash noted. No pallor. Normal capillary refill. Psychiatric: Normal mood. Normal affect. Const: Vital Signs, click to edit/add: Vital Signs - 24 hr 05/28/25 11:26 05/28/25 13:31 05/28/25 13:45 Temperature 97.7 F Pulse Rate 92 88 Pulse Rate [Pulse Oximeter] 103 H Respiratory Rate 18 Blood Pressure [Ri ght Upper Arm] 117/83 Pulse Oximetry 96 98 97 Oxygen Delivery Me thod Room Air 05/28/25 14:00 05/28/25 14:30 05/28/25 14:45 Temperature Pulse Rate 89 85 Pulse Rate [Pulse Oximeter] Respiratory Rate 12 24 Blood Pressure [Ri ght Upper Arm] Pulse Oximetry 97 96 Oxygen Delivery Me thod Course Vital Signs Vital signs: Initial Vital Signs Temperature 97.7 F 05/28/25 11:26 Temperature Source Temporal Artery Scan 05/28/25 11:26 Pulse Rate 103 H 05/28/25 11:26 Respiratory Rate 18 05/28/25 11:26 Blood Pressure 117/83 05/28/25 11:26 Blood Pressure Mean 94 05/28/25 11:26 Pulse Oximetry 96 05/28/25 11:26 Oxygen Delivery Method Room Air 05/28/25 11:26 Vital Signs Temperature 97.7 F 05/28/25 11:26 Pulse Rate 103 H 05/28/25 11:26 Respiratory Rate 18 05/28/25 11:26 Blood Pressure 117/83 05/28/25 11:26 Pulse Oximetry 96 05/28/25 11:26 Oxygen Delivery Method Room Air 05/28/25 11:26 Temperature 97.7 F 05/28/25 11:26 Pulse Rate 85 05/28/25 14:45 Respiratory Rate 24 05/28/25 14:45 Blood Pressure 117/83 05/28/25 11:26 Pulse Oximetry 96 05/28/25 14:45 Oxygen Delivery Method Room Air 05/28/25 11:26 Medications Administered Medications: Discontinued Medications Generic Name Dose Route Start Last Admin Trade Name García PRN Reason Stop Dose Admin Lorazepam 1 mg 05/28/25 14:11 05/28/25 14:30 Lorazepam 1 Mg Tablet PO 05/28/25 14:12 1 mg ONCE ONE Administration Medical Decision Making MDM Narrative Medical decision making narrative: This patient presents to the ER today for evaluation of episodes of chest pain and shortness of breath and been happening since yesterday.. Differential was broad. No evidence of palpitations, syncope or other cardiac dysrhythmia. We considered possible ACS, however workup with EKG and troponin is negative. HEART score is 2. Given time since most recent onset of symptoms, I do not think the patient needs to be admitted for further sets of enzymes. EKG shows no evidence for pericarditis. Clinical presentation not suggestive of myocarditis. Chest x-ray shows no evidence for pneumonia, pneumothorax, pulmonary edema, pleural effusion, rib fracture, cardiomegaly. Mediastinum is normal on the x-ray. The patient has no ripping or tearing pain through to the back and has symmetric pulses on exam, no other acute neuro findings so I doubt aortic dissection. Risk of radiation and contrast exposure would outweigh the benefit of CT angiogram. We considered PE for this patient. Workup yesterday was negative with normal D-dimer and normal CT PA. Laboratory workup shows mildly abnormal total bilirubin but otherwise normal LFTs and normal lipase. She is not having any right upper quadrant abdominal pain. No wheezing or bronchospasm to suggest COPD/asthma. No signs of chest wall cellulitis, shingles, injury. She does endorse a lot of stress related to ache current ongoing divorce. Overall though she says that she is getting along pretty well with her . She has a history of stress and anxiety. She notes that her symptoms got considerably better after IV diazepam given yesterday. She did not have good response to hydroxyzine prescribed yesterday for at home. Will switch to a short prescription for oral Ativan. Discussed benzodiazepine precautions including sedation, addiction. With reasonable clinical confidence, I think the patient is safe for outpatient follow up. Discussed return precautions. Questions answered. Patient voices comfort with the plan. Lab Data Labs: Lab Results 05/28/25 Range/Units 14:25 WBC 5.64 (4.50-11.00) K/uL RBC 3.03 L (4.00-5.20) m/uL Hgb 11.3 L (12.0-16.0) gm/dL Hct 32.0 L (33.0-51.0) % MCV 106 H (80-100) fL MCH 37 H (26-34) pg MCHC 35 (32-36) gm/dL RDW Coeff of Shimon 18.8 H (11.5-15.5) % Plt Count 213 (140-440) K/uL Neut % (Auto) 65.1 (42.0-72.0) % Lymph % (Auto) 28.2 (20-44) % Stanton % (Auto) 4.3 (0.0-11.0) % Eos % (Auto) 1.8 (0.0-7.0) % Baso % (Auto) 0.4 (0.0-3.0) % Neut # (Auto) 3.68 (1.7-7.0) K/uL Lymph # (Auto) 1.59 (0.90-2.90) K/uL Stanton # (Auto) 0.20 (0.00-0.90) K/UL Eos # (Auto) 0.10 (0.00-0.50) K/uL Baso # (Auto) 0.02 (0.00-0.30) K/uL Abs Immat Gran (auto) 0.01 (0.00-0.30) K/uL Imm/Tot Granulo (auto) 0.2 % Sodium 135 (135-149) mmol/L Potassium 3.9 (3.6-5.1) mmol/L Chloride 105 (96-114) mmol/L Carbon Dioxide 25 (20-32) mmol/L Anion Gap 5 L (7-15) mEq/L BUN 7 (5-24) mg/dL Creatinine 0.6 (0.5-1.5) mg/dL Estimated Creat Clear 141.98 Estimated GFR 123 ml/min Glucose 94 (60-115) mg/dL Calcium 8.8 (8.4-10.6) mg/dL Total Bilirubin 1.6 H (0.1-1.5) mg/dL AST 30 (12-35) U/L ALT 19 (4-35) U/L Alkaline Phosphatase 67 (40-150) U/L Total Protein 6.5 (6.0-8.3) g/dL Albumin 3.6 (3.3-5.0) g/dL Lipase 63 (23-300) U/L HCG, Qual Negative (Negative) Discharge Plan Discharge Clinical Impression: Chest pain, Anxiety Patient Disposition: Home, Self-Care Condition: Stable Instructions: Chest Pain (DC), Anxiety (ED) Additional Instructions: As we discussed, so far the workup for her heart and lungs looks good. The exact cause of her symptoms is not clear based on your workup. It is possible the your having acid reflux or esophageal spasm or even ulcers in your esophagus or stomach. It is also possible that your having anxiety. Since you are getting better with the anxiety medication, we will give you a short prescription for lorazepam (Ativan). This medication can help calm anxiety and panic attacks. Be careful because Ativan can cause dizziness, lightheadedness, sleepiness and can be addictive. Do not drive for 6 hours after taking Ativan. Please return to the ER right away if you have worsening symptoms of chest pain, trouble breathing, or any concerns. Even if you are getting better, please follow-up with your regular doctor for a checkup. Also please see your psychiatrist to talk about anxiety and stress, to see if there are any other medications that might help her symptoms. Prescriptions: New lorazepam [Ativan] 1 mg tablet 1 mg PO TID PRNQty: 14 0RF No Action tizanidine 4 mg tablet 4 mg PO 3XD PRN (Reason: muscle spasm) escitalopram oxalate 10 mg tablet 10 mg PO QAM albuterol 90 mcg/actuation aerosol inhalation ferrous sulfate [Feosol] 325 mg (65 mg iron) tablet 325 mg PO DAILY pantoprazole [Protonix] 40 mg tablet,delayed release (DR/EC) 40 mg PO DAILY potassium 99 mg tablet Follow Up/Referrals: Provider,Not a Local [Primary Care Provider, Family Practice] Stand Alone Forms: Circalitth Info Instructions
[2025-05-28 14:00] VITALS: PULSE 89; O2SAT 97
--- OUTSIDE RECORDS SUMMARY | 2025-05-28 14:19 | XMS_ITS | Clinical Summary ---
Author Organization [facility] Address [address] [place] [address] Care Team Providers Care Direct Support Staff Name Role Phone Elsewhere, Pcp Primary Care Provider Unavailabl e Source Comments Patient records contain information from all sites at [facility]. For routine questions regarding patient records, call [phone] during business hours, M-F 8:00 AM - 5:00 PM Central Time. Record requests for emergency care only can be directed to [phone] at any time.[facility] Allergies Active Allergy Reactions Criticality Noted Date [...] alcohol) Date nights maybe wednesday and wednesday [facility] Utilities Answer Date Recorded In the past 12 months has [employer], gas, oil, or water [employer] threatened to shut off services in your [...] your living situation today? 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 Gender Identity Not on file Sexual Orientation Not on file Last Filed Vital Signs Vital Sign Reading Time Taken Comments Blood Pressure 134/86 10/12/2024 1:26 PM ORTHODONTIST ASSISTANT Pulse 80 10/12/2024 1:26 PM ORTHODONTIST ASSISTANT Temperature 36.9 C (98.4 F) 07/04/2024 3:46 PM CDT Respiratory Rate 16 07/04/2024 3:46 PM CDT Oxygen Saturation 98% 07/04/2024 3:46 PM CDT Inhaled Oxygen Concentration - - Weight 122 kg (268 lb 1.3 oz) 10/12/2024 1:26 PM ORTHODONTIST ASSISTANT Height 176.1 cm (5' 9.33) 10/12/2024 1:26 PM CS T Body Mass Index 39.21 10/12/2024 1:26 PM ORTHODONTIST ASSISTANT Plan of Treatment Health Maintenance Due Date [...] patient's age to complete this topic Insurance [facility] Advance Directives For more information, please contact: [phone] * Full Code (Latest Code Status on File) Date Activated Date Inactivated Comments 07/01/2024 2:27 AM 07/04/2024 10:47 PM Question Answer Comments Full Code: Discussed Care Teams Direct Support Staff Relationship Specialty Start Date End Date Elsewhere, Pcp PCP - General Internal Medicine 04/12/24
--- OUTSIDE RECORDS SUMMARY | 2025-05-28 14:19 | XMS_ITS | Encounter Summary ---
Author Organization [facility] Address [address] [facility] [address] Care Team Providers Care Inclusion Special Education Teacher Name Role Phone Sarah Juares MD Primary Care Provider [phone] Purvi Jeong [facility] Unavailable [phone] Lucas Nuno MD Unavailable [phone] Meghan Cox [facility] Unavailable [phone] Encounter Details Date Type Department Care Team (Late st Contact Info) Description 03/19/2025 MyC Medical Advice [facility] [place] [address] [facility] [address] [place] [address] Lucas Nuno MD [address] [facility] [address] [facility] [address] [place] [address] Social History Tobacco Use Types Packs/Day Years Used Date Smoking Tobacco: Former Smokeless Tobacco: Never Alcohol Use Standard Drinks/Week Comments Not Currently 0 (1 standard drink = 0.6 oz pur e alcohol) rare PHQ-2 Answer Date Recorded PHQ-2 Score 0 02/22/2025 [place] Depression Scale Answer Date Recorded [place] Depression Score 1 07/06/2021 Last EPDS [...] in an abandoned building, in an overnight care home, or couch-surfing.) Yes 03/21/2025 Are you [...] AM CDT 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 Gender Identity Female 06/03/2022 7:36 AM CDT Sexual Orientation Straight 06/03/2022 7: 36 AM CDT documented as of this encounter Plan of Treatment Not on file documented as of this encounter Visit Diagnoses Not on filedocumented in this encounter Care Teams Inclusion Special Education Teacher Relationship Specialty [place] [id number] [place] [address] PCP - General Family Medicine 03/13/25 Purvi Jeong RPH [address] [place] [address] [phone] Pharmacist Pharmacist Dry Kiln Operator Helper 01/03/25 Lucas Nuno MD [address] [place] [address] [phone] Assigned Surgical Provider 02/07/25 Meghan Cox RPH [address] [place] [address] [phone] Pharmacist Pharmacist Dry Kiln Operator Helper 03/20/25 documented as of this encounter
--- OUTSIDE RECORDS SUMMARY | 2025-05-28 14:19 | XMS_ITS ---
Author Name Interface, [facility] Address [address] [place] [address] [address] [address] [facility] Address [address] [facility] [address] [address] Allergies and Adverse Reactions Medication/Group Name Reaction [...] 1 HR 07/07/2023 APPOINTMENT CHART CHECK 5 OH N 07/05/2023 APPOINTMENT [facility] FOL LOW UP 20 MIN 07/05/2023 APPOINTMENT LAB 10 MIN 07/05/2023 LABORDER Iron profile 07/05/2023 LABORDER Ferritin panel 07/05/2023 LABORDER CBC w/ auto diff 12/03/[address] chest/abdomen /pelvis w/ IV contrast 12/08/2023 LABORDER Lupus anticoagul ant panel 12/08/2023 LABORDER CBC w/ auto diff 12/08/2023 LABORDER Protein C activi ty panel 12/08/2023 LABORDER Ferritin panel 12/08/2023 LABORDER Protein S activi ty panel 12/08/2023 LABORDER Beta 2 glycoprot ein 1 abs (IgG, IgM) 12/08/2023 LABORDER Factor II DNA an alysis panel 12/08/2023 LABORDER Antithrombin III activity panel 12/08/2023 LABORDER Factor V Leiden mutation analysis panel 12/08/2023 LABORDER Cardiolipin Anti bodies (IgG, IgM) 12/08/2023 LABORDER Iron profile Reason for Visit OV 20 MIN Encounters [...] NG/ML 10.0 130.0 5.80 Low [facility], [address] [phone] Phone: () - 07/05 Iron profi le TIBC ug/dL 250.0 425.0 410 [facility] [address] [phone] 0 Phone: () - 07/05 Iron profi le Iron ug/dL 50.0 175.0 43 Low [facility], [address] [phone] 0 Phone: () - 07/05 Iron profi le Unbou nd iron capac ity ug/dL 75.0 410.0 367 [facility]AL [facility], [address] [facility] [address] [phone] 0 Phone: () - 07/05 Iron profi le Iron, % satur ation % 20.0 55.0 10 Low [facility], [address] [facility] [address] [place] [address] [phone] 0 Phone: () - 07/05 CBC w/ auto diff WBC K/uL 3.0 8.9 7.1 FINAL [facility] [place], [address] [place] [phone] 0 Phone: () - 07/05 CBC w/ auto diff HGB g/dL 11.3 15.2 11.5 FINAL [facility] [place], [address] [place] [phone] 0 Phone: () - 07/05 CBC w/ auto diff PLT K/uL 113.0 364.0 302 FINAL [facility] [place], [address] [place] [phone] 0 Phone: () - 07/05 CBC w/ auto diff Fly # (ANC) K/uL 1.6 6.6 4.5 FINAL [facility] [place], [address] [place] [phone] 0 Phone: () - 07/05 CBC w/ auto diff Fly % % 43.0 74.0 62.6 FINAL [facility] [place], [address] [place] [phone] 0 Phone: () - 07/05 CBC w/ auto diff IG % % 0.0 0.5 0.3 FINAL [facility] [place], [address] [place] [phone] 0 Phone: () - 07/05 CBC w/ auto diff IG # K/uL 0.0 0.03 0.02 FINAL [facility] [place], [address] [place] [phone] 0 Phone: () - 07/05 CBC w/ auto diff LY % % 14.0 41.0 29.7 FINAL [facility] [place], [address] [place] [phone] 0 Phone: () - 07/05 CBC w/ auto diff MO % % 6.0 15.0 5.9 Low FINAL [facility] [place], [address] [place] [phone] 0 Phone: () - 07/05 CBC w/ auto diff EO % % 0.0 7.0 1.4 FINAL [facility] [place], [address] [place] [phone] 0 Phone: () - 07/05 CBC w/ auto diff BA % % 0.0 2.0 0.1 FINAL [facility] [place], [address] [place] [phone] 0 Phone: () - 07/05 CBC w/ auto diff LY # K/uL 0.4 3.6 2.1 FINAL [facility] [place], [address] [place] [phone] 0 Phone: () - 07/05 CBC w/ auto diff MO # K/uL 0.2 1.3 0.4 FINAL [facility] [place], [address] [place] [phone] 0 Phone: () - 07/05 CBC w/ auto diff EO # K/uL 0.0 0.6 0.1 FINAL [facility] [place], [address] [place] [phone] 0 Phone: () - 07/05 CBC w/ auto diff BA # K/uL 0.0 0.2 0.0 FINAL [facility] [place], [address] [place] [phone] 0 Phone: () - 07/05 CBC w/ auto diff NRBC % #/100W BC 0.0 0.2 0.0 FINAL [facility] [place], [address] [place] [phone] 0 Phone: () - 07/05 CBC w/ auto diff RBC M/uL 3.9 5.1 3.81 Low FINAL [facility] [place], [address] [place] [phone] 0 Phone: () - 07/05 CBC w/ auto diff HCT % 35.0 48.0 35.8 FINAL [facility] [place], [address] [place] [phone] 0 Phone: () - 07/05 CBC w/ auto diff MCV fL 80.0 104.0 94.0 FINAL [facility] [place], [address] [place] [phone] 0 Phone: () - 07/05 CBC w/ auto diff MCH pg 26.0 35.0 30.2 FINAL [facility] [place], [address] [place] [phone] 0 Phone: () - 07/05 CBC w/ auto diff MCHC g/dL 30.0 35.0 32.1 FINAL [facility] [place], [address] [place] [phone] 0 Phone: () - 07/05 CBC w/ auto diff MPV fL 9.5 13.4 9.1 Low FINAL [facility] [place], [address] [place] [phone] 0 Phone: () - 07/05 CBC w/ auto diff RDW % 11.4 16.1 15.70 FINAL [facility] [place], [address] [place] [phone] 0 Phone: () - 01/19 [facility] other lab See spray crew d 02/17 [facility] other lab See spray crew d 03/14 [facility] other lab See spray crew d 03/27 [facility] other lab See spray crew d 04/02 [facility] other lab See spray crew d 04/06 [facility] other lab See attache patel Medications Date [...]
--- OUTSIDE RECORDS SUMMARY | 2025-05-28 14:19 | XMS_ITS | Encounter Summary ---
Author Organization [place] Address [address] [facility] [address] Care Team Providers Care Chaplain Resident Name Role Phone Sarah Juares MD Primary Care Provider [phone] Purvi Jeong [facility] Unavailable [phone] Lucas Nuno MD Unavailable [phone] Meghan Cox [facility] Unavailable [phone] Encounter Details Date Type Department Care Team (Late st Contact Info) Description 03/14/2025 [facility] Medical Advice [facility] [place] [address] [facility] [address] 4th [place] [address] Lucas Nuno MD [address] [facility] [address] [facility] [address] [place] [address] Social History Tobacco Use Types Packs/Day Years Used Date Smoking Tobacco: Former Smokeless Tobacco: Never Alcohol Use Standard Drinks/Week Comments Not Currently 0 (1 standard drink = 0.6 oz pur e alcohol) rare PHQ-2 Answer Date Recorded PHQ-2 Score 0 02/22/2025 [place] Depression Scale Answer Date Recorded [place] Depression Score 1 07/06/2021 Last EPDS Self [...] AM CDT 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 Gender Identity Female 06/03/2022 7:36 AM CDT Sexual Orientation Straight 06/03/2022 7: 36 AM CDT documented as of this encounter Plan of Treatment Not on file documented as of this encounter Visit Diagnoses Not on filedocumented in this encounter Care Teams Chaplain Resident Relationship Specialty [place] [address] [place] [address] PCP - General Family Medicine 03/13/25 Purvi Jeong [facility] [address] [place] [address] [phone] Pharmacist Pharmacist Data Warehousing Engineer 01/03/25 Lucas Nuno MD [address] [place] [address] [phone] Assigned Surgical Provider 02/07/25 Meghan Cox [facility] [address] [place] [address] [phone] Pharmacist Pharmacist Data Warehousing Engineer 03/20/25 documented as of this encounter
--- OUTSIDE RECORDS SUMMARY | 2025-05-28 14:19 | XMS_ITS | CCD ---
Author Name Interface, [id number] Address [address] [place] [address] [facility] Oncology Address [facility] [address] [address] Care Team Providers Care Commission Specialist Name Role Phone Forest MASON, Enzo Unavailable Unavailable Allergies and Adverse Reactions Reason for Visit Medications Problems Social History
--- OUTSIDE RECORDS SUMMARY | 2025-05-28 14:19 | XMS_ITS | Patient Health Record ---
Author Organization [facility] Address [address] [place] [address] Care Team Providers Care Continuous Improvement Black Belt Name Role Phone None, None Primary Care Provider PAUL Carvajal [phone] Reason For Referral No Information Medications Medication [...] Date Coverage End Date BLUE CROSS OUT [facility] [address] [address] [place], [place] [id number] Karo Gallegos Self - patient is the insured Medical (General) History Surgical History Surgery Date(Month/Year) Gastric sleeve 10/13/2016
--- OUTSIDE RECORDS SUMMARY | 2025-05-28 14:20 | XMS_ITS | Encounter Summary ---
Author Organization [place] Address [facility] [place] [address] Care Team Providers Care Child Care Leader Name Role Phone [facility], [facility] Primary Care Provider Leatha Wagner APRN [facility] Unavailable +[phone] Mariana Acosta-C Unavailable + [phone] Sarah Juares MD Primary Care Provider [phone] Lucas Nuno MD Unavailable +- [phone] Mariana AcostaC Unavailable +[phone] Lucas Nuno MD Unavailable +- 65 Mariana AcostaC Unavailable +[phone] Purvi Jeong [facility] Unavailable [phone] Lucas Nuno MD Unavailable +- [phone] Meghan Cox [facility] Unavailable [phone] Encounter Details Date Type Department Care Team (Late st Contact Info) Description 12/08/2021 [facility] [address] 4th [place] [address] Rita Gillespie, EMT Social History Tobacco Use Types Packs/Day Years Used Date Smoking Tobacco: Former Smokeless Tobacco: Never Alcohol Use Standard Drinks/Week Comments Not Currently 0 (1 standard drink = 0.6 oz pur e alcohol) [place] Depression Scale Answer Date Recorded [place] Depression Score 1 07/06/2021 Last EPDS Self Harm Result Not on file 07/06 Comments No Sex and Gender Information Value Date Recorded Sex Assigned at Female 06/03/2022 7:36 AM CDT 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 [address] [facility] [place] [address] PCP - General 01/02/14 03/23/23 [place] [address] [address] [facility] [place] [address] PCP - General Family Medicine 03/13/25 Leatha Wagner APRN POLICE AND FIRE DISPATCHER [address] [place] [address] Assigned Surgical Provider 11/02/21 09/04/22 Mariana Acosta PA-C [address] [place] [address] Assigned Surgical Provider 09/05/22 12/09/23 Lucas Nuno MD [address] [address] Assigned Surgical Provider 12/10/23 01/07/24 Mariana Acosta PA-C [address] [address] Assigned Surgical Provider 01/08/24 03/08/24 Lucas Nuno MD [address] [address] Assigned Surgical Provider 03/09/24 12/09/24 Mariana Acosta PA-C [address] [address] Assigned Surgical Provider 12/10/24 02/06/25 Purvi Jeong [facility] [address] [place] [address] [phone] Pharmacist Pharmacist Train Electronic Technician 01/03/25 Lucas Nuno MD [address] [place] [address] Assigned Surgical Provider 02/07/25 Meghan Cox [facility] [address] [place] [address] Pharmacist Pharmacist Train Electronic Technician 03/20/25 documented as of this encounter
--- OUTSIDE RECORDS SUMMARY | 2025-05-28 14:20 | XMS_ITS | Encounter Summary ---
Author Organization [place] Address [facility] [place] [address] Care Team Providers Care Welder Fitter Arc Name Role Phone [facility], [facility] Primary Care Provider Leatha Wagner APRN [facility] Unavailable [phone] Mariana Acosta-C Unavailable + [phone] Sarah Juares MD Primary Care Provider [phone] Lucas Nuno MD Unavailable +- [phone] Mariana AcostaC Unavailable +[phone] Lucas Nuno MD Unavailable +- 61 Mariana AcostaC Unavailable +[phone] Purvi Jeong [facility] Unavailable [phone] Lucas Nuno MD Unavailable +- [phone] Meghan Cox [facility] Unavailable [phone] Encounter Details Date Type Department Care Team (Late st Contact Info) Description 10/22/2021 [facility] [place] Medical Advice [facility] [address] 4th [place] [address] Giuliana Masterson Social History Tobacco Use Types Packs/Day Years Used Date Smoking Tobacco: Former Smokeless Tobacco: Never Alcohol Use Standard Drinks/Week Comments Not Currently 0 (1 standard drink = 0.6 oz pur e alcohol) [place] Depression Scale Answer Date Recorded [place] Depression Score 1 07/06/2021 Last EPDS Self Harm Result Not on file 07/06 Comments No Sex and Gender Information Value Date Recorded Sex Assigned at Female 06/03/2022 7:36 AM CDT 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 Gender Identity Female 06/03/2022 7:36 AM CDT [...] documented as of this encounter Care Teams Welder Fitter Arc Relationship Specialty Start Date End Date [facility], [facility] [address] [facility] [place] [address] PCP - General 01/02/14 03/23/23 [place] [address] [facility] [place] [address] PCP - General Family Medicine 03/13/25 Leatha Wagner APRN CRICKET COACH [address] [place] [address] Assigned Surgical Provider 11/02/21 09/04/22 Mariana Acosta PA-C [address] [place] [address] Assigned Surgical Provider 09/05/22 12/09/23 Lucas Nuno MD [address] [address] Assigned Surgical Provider 12/10/23 01/07/24 Mariana Acosta PA-C [address] [address] Assigned Surgical Provider 01/08/24 03/08/24 Lucas Nuno MD [address] [address] Assigned Surgical Provider 03/09/24 12/09/24 Mariana Acosta PA-C [address] [address] Assigned Surgical Provider 12/10/24 02/06/25 Purvi Jeong [facility] [address] [place] [address] Pharmacist Pharmacist Cat Operator 01/03/25 Lucas Nuno MD [address] [address] Assigned Surgical Provider 02/07/25 Meghan Cox [facility] [address] [place] [address] Pharmacist Pharmacist Cat Operator 03/20/25 documented as of this encounter
--- OUTSIDE RECORDS SUMMARY | 2025-05-28 14:20 | XMS_ITS | Encounter Summary ---
Author Organization [place] Address Critical access hospital0 [facility] [place] [address] Care Team Providers Care Hospice Home Care Coordinator Name Role Phone Clinic, [facility] Primary Care Provider Leatha Wagner APRN BELT LOOP MAKER Unavailable +[phone] Mariana AcostaC Unavailable +[phone] Sarah Juares MD Primary Care Provider [phone] Lucas Nuno MD Unavailable +-[phone] Mariana Acosta PA-C Unavailable +[phone] Lucas Nuno MD Unavailable +-[phone] Mariana Acosta PA-C Unavailable +[phone] Purvi Jeong [facility] Unavailable [phone] Lucas Nuno MD Unavailable [phone] Meghan Cox [facility] Unavailable [phone] Encounter Details Date Type Department Care Team (Late st Contact Info) Description 10/23/[address] [facility] Weight Management Clinic [address] 4th [place] [address] Leatha Wagner APRN BELT LOOP MAKER [address] [place] [address] Epigastric pain (Primary Dx); Gastroesophageal reflux disease with esophagitis, unspecified whether hemorrhage; RUQ abdominal pain Social History Tobacco Use Types Packs/Day Years Used Date Smoking Tobacco: Former Smokeless Tobacco: Never Alcohol Use Standard Drinks/Week Comments Not Currently 0 (1 standard drink = 0.6 oz pur e alcohol) [place] Depression Scale Answer Date Recorded [place] Depression Score 1 07/06/2021 Last EPDS Self Harm Result Not on file 07/06 Comments No Sex and Gender Information Value Date Recorded Sex Assigned at Female 06/03/2022 7:36 AM CDT 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 Gender Identity Female 06/03/2022 7:36 AM CDT [...] documented as of this encounter Care Teams Hospice Home Care Coordinator Relationship Specialty Start Date End Date [employer], [facility] [address] [facility] [place] [address] PCP - General 01/02/14 03/23/23 [place] [address] [place] [address] PCP - General Family Medicine 03/13/25 Leatha Wagner APRN BELT LOOP MAKER [address] [place] [address] Assigned Surgical Provider 11/02/21 09/04/22 Mariana Acosta PA-C [address] [place] [address] [address] Assigned Surgical Provider 09/05/22 12/09/23 Lucas Nuno MD [address] [place] [address] [address] Assigned Surgical Provider 12/10/23 01/07/24 Mariana Acosta PA-C [address] [place] [address] [address] Assigned Surgical Provider 01/08/24 03/08/24 Lucas Nuno MD 420 [facility] [address] [address] Assigned Surgical Provider 03/09/24 12/09/24 Mariana Acosta PA-C [address] [address] Assigned Surgical Provider 12/10/24 02/06/25 Purvi Jeong [facility] [address] [place] [address] Pharmacist Pharmacist Appellate Conferee 01/03/25 Lucas Nuno MD [address] [address] Assigned Surgical Provider 02/07/25 Meghan Cox [facility] [address] [place] [address] Pharmacist Pharmacist Appellate Conferee 03/20/25 documented as of this encounter
--- OUTSIDE RECORDS SUMMARY | 2025-05-28 14:20 | XMS_ITS | Patient Health Record ---
Author Organization [place] [facility] Address [address] [place] [address] Care Team Providers Care Embossing Calender Operator Name Role Phone Kade Castanon Primary Care Provider [phone] Allergies Allergen (clinical drug ingredient) Drug/Non Drug [...] Date BCBS - (Client Bill) [address] NAT LEONARD [phone] [id number] [id number] KALEB ALEMAN Self - patient is the insured Medical (General) History Medical History History ICD Code Pneumonia Former Smoker Anxiety and Depression Abnormal Pap Smear Post depression Surgical History Surgery Date(Month/Year) Gastric Sleeve 10/13/2016
--- OUTSIDE RECORDS SUMMARY | 2025-05-28 14:20 | XMS_ITS | Encounter Summary ---
Author Organization [place] Address [facility], [facility] [place] [address] Care Team Providers Care Instructional Systems Specialist Name Role Phone [facility], [facility] Primary Care Provider Leatha Wagner APRN [facility] Unavailable +[phone] Mariana Acosta-C Unavailable + [phone] Sarah Juares MD Primary Care Provider [phone] Lucas Nuno MD Unavailable +- [phone] Mariana AcostaC Unavailable +[phone] Lucas Nuno MD Unavailable +- 98 Mariana AcostaC Unavailable +[phone] Purvi Jeong [facility] Unavailable [phone] Lucas Nuno MD Unavailable +- [phone] Meghan Cox [facility] Unavailable [phone] Encounter Details Date Type Department Care Team (Late st Contact Info) Description 06/02/2022 [facility] Medical Advice [facility] Weight Management [facility] [address] 4th [place] [address] Rita Gillespie, EMT Social History Tobacco Use Types Packs/Day Years Used Date Smoking Tobacco: Former Smokeless Tobacco: Never Alcohol Use Standard Drinks/Week Comments Not Currently 0 (1 standard drink = 0.6 oz pur e alcohol) [place] Depression Scale Answer Date Recorded [place] Depression Score 1 07/06/2021 Last EPDS Self Harm Result Not on file 07/06 Comments No Sex and Gender Information Value Date Recorded Sex Assigned at Female 06/03/2022 7:36 AM CDT 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, [facility] [address] [facility] [address] PCP - General 01/02/14 03/23/23 [place] [address] [facility] [address] PCP - General Family Medicine 03/13/25 Leatha Wagner APRN CANAL EQUIPMENT MECHANIC [address] [place] [address] Assigned Surgical Provider 11/02/21 09/04/22 Mariana Acosta PA-C [address] [place] [address] Assigned Surgical Provider 09/05/22 12/09/23 Lucas Nuno MD [address] [address] Assigned Surgical Provider 12/10/23 01/07/24 Mariana Acosta PA-C [address] [address] Assigned Surgical Provider 01/08/24 03/08/24 Lucas Nuno MD [address] [address] Assigned Surgical Provider 03/09/24 12/09/24 Mariana Acosta PA-C [address] [address] Assigned Surgical Provider 12/10/24 02/06/25 Purvi Jeong [facility] [address] [place] [address] [phone] Pharmacist Pharmacist Group Home Counselor 01/03/25 Lucas Nuno MD [address] [place] [address] Assigned Surgical Provider 02/07/25 Meghan Cox [facility] [address] [place] [address] Pharmacist Pharmacist Group Home Counselor 03/20/25 documented as of this encounter
--- OUTSIDE RECORDS SUMMARY | 2025-05-28 14:20 | XMS_ITS | Encounter Summary ---
Author Organization [place] Address [facility] [address] Care Team Providers Care Music Publicist Name Role Phone Clinic, [facility] Primary Care Provider Leatha Wagner APRN [facility] Unavailable [phone] Mariana AcostaC Unavailable + [phone] Sarah Juares MD Primary Care Provider [phone] Lucas Nuno MD Unavailable +- [phone] Mariana AcostaC Unavailable + [phone] Lucas Nuno MD Unavailable +-[phone] Mariana Acosta PA-C Unavailable + [phone] Purvi Jeong [facility] Unavailable [phone] Lucas Nuno MD Unavailable +-[phone] Meghan Cox [facility] Unavailable [phone] Encounter Details Date Type Department Care [...] AM CDT 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 HUMAN RESOURCES ASSOCIATE Gender Identity Female 06/03/2022 7:36 AM [...] documented as of this encounter Care Teams Music Publicist Relationship Specialty Start Date End Date [facility], [facility] [address] [place] [address] PCP - General 01/02/14 03/23/23 [place] [address] [place] [address] PCP - General Family Medicine 03/13/25 Leatha Wagner APRN MAGNETIC LOCATER [address] [place] [address] Assigned Surgical Provider 11/02/21 09/04/22 Mariana Acosta PA-C [address] 640585 Assigned Surgical Provider 09/05/22 12/09/23 Lucas Nuno MD [address] 986195 Assigned Surgical Provider 12/10/23 01/07/24 Mariana Acosta PA-C [address] [address] Assigned Surgical Provider 01/08/24 03/08/24 Lucas Nuno MD [address] [address] Assigned Surgical Provider 03/09/24 12/09/24 Mariana Acosta PA-C [address] [address] Assigned Surgical Provider 12/10/24 02/06/25 Purvi Jeong RPH [address] [place] [address] 416995 Pharmacist Pharmacist Photo Finish Photographer 01/03/25 Lucas Nuno MD [address] [place] [address] Assigned Surgical Provider 02/07/25 Meghan Cox RPH [address] [place] [address] [phone] Pharmacist Pharmacist Photo Finish Photographer 03/20/25 documented as of this encounter
--- OUTSIDE RECORDS SUMMARY | 2025-05-28 14:20 | XMS_ITS | Encounter Summary ---
Author Organization [place] Address [facility] [place] [address] Care Team Providers Care Business Analytics Intern Name Role Phone [facility], [facility] Primary Care Provider Leatha Wagner APRN [facility] Unavailable +[phone] Mariana Acosta-C Unavailable + [phone] Sarah Juares MD Primary Care Provider [phone] Lucas Nuno MD Unavailable +- [phone] Mariana AcostaC Unavailable +[phone] Lucas Nuno MD Unavailable +- 59 Mariana AcostaC Unavailable +[phone] Purvi Jeong [facility] Unavailable [phone] Lucas Nuno MD Unavailable [phone] Meghan Cox [facility] Unavailable [phone] Encounter Details Date Type Department Care Team (Late st Contact Info) Description 12/10/2021 [facility] Medical Advice [facility] Management [facility] [address] 4th [place] [address] [place], Paulina, RN Social History Tobacco Use Types Packs/Day Years Used Date Smoking Tobacco: Former Smokeless Tobacco: Never Alcohol Use Standard Drinks/Week Comments Not Currently 0 (1 standard drink = 0.6 oz pur e alcohol) [place] Depression Scale Answer Date Recorded [place] Depression Score 1 07/06/2021 Last EPDS Self Harm Result Not on file 07/06 Comments No Sex and Gender Information Value Date Recorded Sex Assigned at Female 06/03/2022 7:36 AM CDT 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 OF 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 Gender Identity Female 06/03/2022 7:36 AM CDT [...] documented as of this encounter Care Teams Business Analytics Intern Relationship Specialty Start Date End Date [facility], [facility] [address] [facility] [place] [address] PCP - General 01/02/14 03/23/23 [place] [address] [facility] [place] [address] PCP - General Family Medicine 03/13/25 Leatha Wagner APRN DRAG DOWN [address] [place] [address] Assigned Surgical Provider 11/02/21 09/04/22 Mariana Acosta PA-C [address] [place] [address] Assigned Surgical Provider 09/05/22 12/09/23 Lucas Nuno MD [address] [address] Assigned Surgical Provider 12/10/23 01/07/24 Mariana Acosta PA-C [address] [address] Assigned Surgical Provider 01/08/24 03/08/24 Lucas Nuno MD [address] [address] Assigned Surgical Provider 03/09/24 12/09/24 Mariana Acosta PA-C [address] [address] Assigned Surgical Provider 12/10/24 02/06/25 Purvi Jeong [facility] [address] [place] [address] [phone] Pharmacist Pharmacist Point Of Care Technician 01/03/25 Lucas Nuno MD [address] [place] [address] Assigned Surgical Provider 02/07/25 Meghan Cox [facility] [address] [place] [address] Pharmacist Pharmacist Point Of Care Technician 03/20/25 documented as of this encounter
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
--- OUTSIDE RECORDS SUMMARY | 2025-05-28 14:20 | XMS_ITS | Clinical Summary ---
Author Organization [facility] Address [address] [facility] [place] [address] Care Team Providers Care Chemotherapist Name Role Phone Mariluz Diamond MD Primary Care Provider Unavailab le Source Comments You are receiving this document as you are listed as the primary care provider,follow-up provider, or the patient has been referred to you for consultation.This is in compliance with the Medicare and[facility] Hospitalca[facility] EHR Incentive Program,which states Providers who transition their patient to another setting of careor provider of care or refers their patient to another provider of care shouldprovide summary care record for each transition of care or referral. [facility] [employer] Allergies Active Allergy Reactions Criticality Noted Date [...] (12/27/2020): 11/14/2018 LSIL. Plan: Pap due 10/2019 [facility] review: 05/2016: NILM 10/2018: LSIL (age 23) [...] contact Iwona Cordero, Healthy Beginnings Specialist, at [phone]. 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 Does not exclude the possiblity of exposure to HCV. Blood Venipuncture / Unknown 05/22/2021 2:15 PM CDT 05/22/2021 2:15 PM CDT us Olivia Galvan MD LAB_1 Final Result [facility] [address] * HIV 1/2 Ag/Ab 4th Generation (12/19/2020 9:24 AM RESIDENTIAL ASSISTANT) HIV 1/2 Antigen/Antib chad (4th generation) Negative (Non Reactive) Negative (Non Reactive) 12/19/2020 1:00 PM RESIDENTIAL ASSISTANT [facility] Comment:HIV-1 p24 Antigen an d HIV-1/HIV-2 Antibody not detected Blood Venipuncture / Unknown 12/19/2020 9:24 AM RESIDENTIAL ASSISTANT 12/19/2020 9:24 AM RESIDENTIAL ASSISTANT us Xochitl Beard APRN, HALLIE LAB_1 Final R esult [facility] [address] * PAP Test (12/19/2020 9:23 AM RESIDENTIAL ASSISTANT) Case Report Pap Case: [id number] Authorizing Provider: Xochitl Beard APRN, CNP Collected: 12/19/2020 0923 Ordering Location: [facility] Received: 12/19/2020 0939 Services-ROOFING TECHNICIAN First Screen: Mariluz Loza CT (ASCP) Specimen: Pap Test, Diagnostic, Cervix/Endocervix 12/23/2020 4:03 PM RESIDENTIAL ASSISTANT [facility] Pap Specimen Adequacy Satisfactory for evaluation, endocervical/simental sformation zone component present. 12/23/2020 4:03 PM RESIDENTIAL ASSISTANT [facility] Pap Interpretation Negative for intraepithelial lesion or malignancy (NILM). 12/23/2020 4:03 PM RESIDENTIAL ASSISTANT [facility] at 1603 RESIDENTIAL ASSISTANT Pap Disclaimer The Pap test is a screening test designed to aid in the detection of cervical cancer and its precursor lesions. It is not a diagnostic procedure and should not be used as the sole means of detecting cervical cancer. Both false-positive and false-negative results may occur. 12/23/2020 4:03 PM RESIDENTIAL ASSISTANT [facility] Gross Description The specimen is received in SurePath fixative and properly labeled. 1 Pap-stained SurePath slide is prepared. 12/23/2020 4:03 PM RESIDENTIAL ASSISTANT [facility] Embedded Images 4:03 PM RESIDENTIAL ASSISTANT [facility] Other Specimen Type ENTIRE ENDOCERVIX / Unknown 12/19/2020 9:23 AM RESIDENTIAL ASSISTANT 12/19/2020 9:39 AM RESIDENTIAL ASSISTANT Comment:LMP: Patient's last menstrual period was 10/23/2020 (exact date). Xochitl Beard APRN, VEHICLE OPERATOR TECHNICIAN LAB PATHOLOGY Final R esult [facility] [address] [place] [address], [facility] from Last 3 Months or Most Recently Relevant to Health Maintenance Insurance [facility] Care Teams Chemotherapist Relationship Specialty Start Date End Date Mariluz Diamond MD PCP - General Family Practice 11/25/18
--- OUTSIDE RECORDS SUMMARY | 2025-05-28 14:20 | XMS_ITS | Encounter Summary ---
Author Organization [place] Address [facility] [place] [address] Care Team Providers Care Fire Protection Specialist Name Role Phone [facility], [facility] Primary Care Provider Leatha Wagner APRN [facility] Unavailable [phone] Mariana Acosta-C Unavailable + [phone] Sarah Juares MD Primary Care Provider [phone] Lucas Nuno MD Unavailable +- [phone] Mariana AcostaC Unavailable [phone] Lucas Nuno MD Unavailable +- [phone] Mariana AcostaC Unavailable [phone] Purvi Jeong [facility] Unavailable [phone] Lucas Nuno MD Unavailable [phone] Meghan Cox [facility] Unavailable [phone] Encounter Details Date Type Department Care Team (Late st Contact Info) Description 12/17/2021 [facility] Medical Advice [facility] [address] [place] [address] Giuliana Masterson Social History Tobacco Use Types Packs/Day Years Used Date Smoking Tobacco: Former Smokeless Tobacco: Never Alcohol Use Standard Drinks/Week Comments Not Currently 0 (1 standard drink = 0.6 oz pur e alcohol) Russell Depression Scale Answer Date Recorded Russell Depression Score 1 07/06/2021 Last EPDS Self Harm Result Not on file 07/06 Comments No Sex and Gender Information Value Date Recorded Sex Assigned at Female 06/03/2022 7:36 AM CDT 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 Gender Identity Female 06/03/2022 7:36 AM CDT [...] documented as of this encounter Care Teams Fire Protection Specialist Relationship Specialty Start Date End Date [facility], [facility] [address] [facility] [place] [address] PCP - General 01/02/14 03/23/23 [place] [address] [address] [facility] [place] [address] PCP - General Family Medicine 03/13/25 Leatha Wagner APRN CENTER ADMINISTRATOR [address] [place] [address] Assigned Surgical Provider 11/02/21 09/04/22 Mariana Acosta PA-C [address] [place] [address] Assigned Surgical Provider 09/05/22 12/09/23 Lucas Nuno MD [address] [address] Assigned Surgical Provider 12/10/23 01/07/24 Mariana Acosta PA-C [address] [address] Assigned Surgical Provider 01/08/24 03/08/24 Lucas Nuno MD [address] [address] Assigned Surgical Provider 03/09/24 12/09/24 Mariana Acosta PA-C [address] [address] Assigned Surgical Provider 12/10/24 02/06/25 Purvi Jeong [facility] [address] [place] [address] Pharmacist Pharmacist Ornament Stapler 01/03/25 Lucas Nuno MD [address] [address] Assigned Surgical Provider 02/07/25 Meghan Cox [facility] [address] [place] [address] Pharmacist Pharmacist Ornament Stapler 03/20/25 documented as of this encounter
--- OUTSIDE RECORDS SUMMARY | 2025-05-28 14:21 | XMS_ITS | Encounter Summary ---
Author Organization [place] Address [address] [facility] [place] [address] Care Team Providers Care Civil Engineering Specialist Name Role Phone Sarah Juares MD Primary Care Provider [phone] Lucas Nuno MD Unavailable [phone] Mariana AcostaC Unavailable [phone] Purvi Jeong [facility] Unavailable [phone] Lucas Nuno MD Unavailable +- Meghan Cox [facility] Unavailable [phone] Encounter Details Date Type Department Care Team (Late st Contact Info) Description 04/13/2024 [facility] Medical [facility] [address] [place] [phone] [facility] Social History Tobacco Use Types Packs/Day Years Used Date Smoking Tobacco: Former Smokeless Tobacco: Never Alcohol Use Standard Drinks/Week Comments Not Currently 0 (1 standard drink = 0.6 oz pur e alcohol) rare PHQ-2 Answer Date Recorded PHQ-2 Score 0 05/12/2023 [place]oulder Depression Scale Answer Date Recorded [place] Depression Score 1 07/06/2021 Last EPDS Self Harm Result Not on file 07/06 Adolescent Education Answer Date Record ed Getting School Help Needed Not on file 07/10 Comments No Sex and Gender Information Value Date Recorded Sex Assigned at Female 06/03/2022 7:36 AM CDT 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 DIRECTOR TRANSLATIONAL Gender Identity Female 06/03/2022 7:36 AM CDT Sexual Orientation Straight 06/03/2022 7: 36 AM CDT documented as of this encounter Plan of Treatment Not on file documented as of this encounter Visit Diagnoses Not on filedocumented in this encounter Care Teams Civil Engineering Specialist Relationship Specialty [place] [address] [place] [address] PCP - General Family Medicine 03/13/25 Lucas Nuno MD [address] [address] Assigned Surgical Provider 03/09/24 12/09/24 Mariana Acosta PA-C [address] 21[address] Assigned Surgical Provider 12/10/24 02/06/25 Purvi Jeong [facility] [address] [place] [address] Pharmacist Pharmacist Flagger 01/03/25 Lucas Nuno MD [address] [address] Assigned Surgical Provider 02/07/25 Meghan Cox [facility] [address] [place] [address] Pharmacist Pharmacist Flagger 03/20/25 documented as of this encounter
--- OUTSIDE RECORDS SUMMARY | 2025-05-28 14:21 | XMS_ITS | Encounter Summary ---
Author Organization [place] Address [facility] [place] [address] Care Team Providers Care Database Specialist Name Role Phone [facility] Primary Care Provider Mariana Acosta PA-C Unavailable + [phone] Sarah Juares MD Primary Care Provider [phone] Lucas Nuno MD Unavailable +[phone] Mariana Acosta PA-C Unavailable +[phone] Lucas Nuno MD Unavailable +[phone] Mariana Acosta PA-C Unavailable +[phone] Purvi Jeong [facility] Unavailable [phone] Lucas Nuno MD Unavailable [phone] Meghan Cox [facility] Unavailable [phone] Encounter Details Date Type Department Care Team (Late st Contact Info) Description 02/09/2023 [facility] [address] 4th [place] [address] Paulina Denny RN Social History Tobacco Use Types Packs/Day Years Used Date Smoking Tobacco: Former Smokeless Tobacco: Never Alcohol Use Standard Drinks/Week Comments Not Currently 0 (1 standard drink = 0.6 oz pur e alcohol) rare Fifty Six Depression Scale Answer Date Recorded Fifty Six Depression Score 1 07/06/2021 Last EPDS Self Harm Result Not on file 07/06 Comments No Sex and Gender Information Value Date Recorded Sex Assigned at Female 06/03/2022 7:36 AM CDT 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 Gender Identity Female 06/03/2022 7:36 AM CDT [...] documented as of this encounter Care Teams Database Specialist Relationship Specialty Start Date End Date [facility], [facility] [address] [place] [address] PCP - General 01/02/14 03/23/23 [place] [address] [place] [address] PCP - General Family Medicine 03/13/25 Mariana Acosta PA-C [address] [place] [address] [id number] Assigned Surgical Provider 09/05/22 12/09/23 Lucas Nuno MD [address] [address] Assigned Surgical Provider 12/10/23 01/07/24 Mariana Acosta PA-C [address] [place] [address] [id number] Assigned Surgical Provider 01/08/24 03/08/24 Lucas Nuno MD [address] [place] [address] Assigned Surgical Provider 03/09/24 12/09/24 Mariana Acosta PA-C [address] [place] [address] Assigned Surgical Provider 12/10/24 02/06/25 Purvi Jeong [facility] [address] [place] [address] Pharmacist Pharmacist Rating Specialist 01/03/25 Lucas Nuno MD [address] [place] [address] Assigned Surgical Provider 02/07/25 Meghan Cox [facility] [address] [place] [address] Pharmacist Pharmacist Rating Specialist 03/20/25 documented as of this encounter
--- OUTSIDE RECORDS SUMMARY | 2025-05-28 14:21 | XMS_ITS | Encounter Summary ---
Author Organization [place] Address [address] [place] [address] Care Team Providers Care Cheesemaking Laborer Name Role Phone Mariana Acosta-Noreen Unavailable + [phone] Sarah Juares MD Primary Care Provider [phone] Lucas Nuno MD Unavailable [phone] Mariana AcostaC Unavailable + [phone] Lucas Nuno MD Unavailable [phone] Mariana Acosta-C Unavailable +[phone] Purvi Jeong [facility] Unavailable [phone] Lucas Nuno MD Unavailable [phone] Meghan Cox [facility] Unavailable [phone] Encounter Details Date Type Department Care Team (Late st Contact Info) Description 05/12/2023 [facility] [address] [place] [address] Xochitl Cooley Social History Tobacco Use Types Packs/Day Years Used Date Smoking Tobacco: Former Smokeless Tobacco: Never Alcohol Use Standard Drinks/Week Comments Not Currently 0 (1 standard drink = 0.6 oz pur e alcohol) rare PHQ-2 Answer Date Recorded PHQ-2 Score 0 05/12/2023 [place] Depression Scale Answer Date Recorded [place] Depression Score 1 07/06/2021 Last EPDS Self Harm Result Not on file 07/06 Comments No Sex and Gender Information Value Date Recorded Sex Assigned at Female 06/03/2022 7:36 AM CDT 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 RECORDS MANAGEMENT COORDINATOR Gender Identity Female 06/03/2022 7:36 AM [...] on filedocumented in this encounter Care Teams Cheesemaking Laborer Relationship Specialty [place] [address] [facility] [place] [address] PCP - General Family Medicine 03/13/25 Mariana Acosta PA-C [address] [address] Assigned Surgical Provider 09/05/22 12/09/23 Lucas Nuno MD [address] [address] Assigned Surgical Provider 12/10/23 01/07/24 Mariana Acosta PA-C [address] [address] Assigned Surgical Provider 01/08/24 03/08/24 Lucas Nuno MD [address] [address] Assigned Surgical Provider 03/09/24 12/09/24 Mariana Acosta PA-C [address] [address] Assigned Surgical Provider 12/10/24 02/06/25 Purvi Jeong [facility] [address] [place] [address] Pharmacist Pharmacist Cnp 01/03/25 Lucas Nuno MD [address] [address] Assigned Surgical Provider 02/07/25 Meghan Cox [facility] [address] [place] [address] Pharmacist Pharmacist Cnp 03/20/25 documented as of this encounter
--- OUTSIDE RECORDS SUMMARY | 2025-05-28 14:21 | XMS_ITS | Encounter Summary ---
Author Organization [place] Address [address] [facility] [place] [address] Care Team Providers Care Hydroelectric Plant Maintainer Name Role Phone Mariana Acosta PA-C Unavailable + [phone] Sarah Juares MD Primary Care Provider [phone] Lucas Nuno MD Unavailable [phone] Mariana Acosta PA-C Unavailable + [phone] Lucas Nuno MD Unavailable +[phone] Mariana Acosta PA-C Unavailable + [phone] Purvi Jeong [facility] Unavailable [phone] Lucas Nuno MD Unavailable [phone] Meghan Cox [facility] Unavailable [phone] Encounter Details Date Type Department Care Team (Late st Contact Info) Description 10/20/2023 [facility] [place] [address] [facility] [address] [place] [address] Mariana Acosta PA-C [address] [facility] [address] [place] [address] Social History Tobacco Use Types Packs/Day Years Used Date Smoking Tobacco: Former Smokeless Tobacco: Never Alcohol Use Standard Drinks/Week Comments Not Currently 0 (1 standard drink = 0.6 oz pur e alcohol) rare PHQ-2 Answer Date Recorded PHQ-2 Score 0 05/12/2023 [place] Depression Scale Answer Date Recorded [place] Depression Score 1 07/06/2021 Last EPDS Self Harm Result Not on file 07/06 Adolescent Education Answer Date Record ed Getting School Help Needed Not on file 07/10 Comments No Sex and Gender Information Value Date Recorded Sex Assigned at Female 06/03/2022 7:36 AM CDT 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 DATA PROCESSING CONTROL CLERK Gender Identity Female 06/03/2022 7:36 AM CDT Sexual Orientation Straight 06/03/2022 7: 36 AM CDT documented as of this encounter Plan of Treatment Not on file documented as of this encounter Visit Diagnoses Not on filedocumented in this encounter Care Teams Hydroelectric Plant Maintainer Relationship Specialty [place] [address] [facility] [place] [address] PCP - General Family Medicine 03/13/25 Mariana Acosta PA-C [address] [place] [address] Assigned Surgical Provider 09/05/22 12/09/23 Lucas Nuno MD [address] [address] Assigned Surgical Provider 12/10/23 01/07/24 Mariana Acosta PA-C [address] [place] [address] Assigned Surgical Provider 01/08/24 03/08/24 Lucas Nuno MD [address] [address] Assigned Surgical Provider 03/09/24 12/09/24 Mariana Acosta PA-C [address] [address] Assigned Surgical Provider 12/10/24 02/06/25 Purvi Jeong [facility] [address] [place] [address] Pharmacist Pharmacist Warehouse Handler 01/03/25 Lucas Nuno MD [address] [place] [address] Assigned Surgical Provider 02/07/25 Meghan Cox [facility] [address] [place] [address] Pharmacist Pharmacist Warehouse Handler 03/20/25 documented as of this encounter
--- OUTSIDE RECORDS SUMMARY | 2025-05-28 14:21 | XMS_ITS | Encounter Summary ---
Author Organization [place] Address [address] [facility] [place] [address] Care Team Providers Care Rn Hematology Name Role Phone Sarah Juares MD Primary Care Provider [phone] Lucas Nuno MD Unavailable [phone] Mariana Acosta PA-C Unavailable + [phone] Purvi Jeong [facility] Unavailable [phone] Lucas Nuno MD Unavailable [phone] Meghan Cox [facility] Unavailable [phone] Encounter Details Date Type Department Care Team (Late st Contact Info) Description 04/13/2024 [facility] Advice [facility] [address] [place] [address] Giuliana Masterson Social History Tobacco Use Types Packs/Day Years Used Date Smoking Tobacco: Former Smokeless Tobacco: Never Alcohol Use Standard Drinks/Week Comments Not Currently 0 (1 standard drink = 0.6 oz pur e alcohol) rare PHQ-2 Answer Date Recorded PHQ-2 Score 0 05/12/2023 [place] Depression Scale Answer Date Recorded [place] Depression Score 1 07/06/2021 Last EPDS Self Harm Result Not on file 07/06 Adolescent Education Answer Date Record ed Getting School Help Needed Not on file 07/10 Comments No Sex and Gender Information Value Date Recorded Sex Assigned at Female 06/03/2022 7:36 AM CDT 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 SPLICER Gender Identity Female 06/03/2022 7:36 AM CDT Sexual Orientation Straight 06/03/2022 7: 36 AM CDT documented as of this encounter Plan of Treatment Not on file documented as of this encounter Visit Diagnoses Not on filedocumented in this encounter Care Teams Rn Hematology Relationship Specialty [place] [address] [place] [address] PCP - General Family Medicine 03/13/25 Lucas Nuno MD [address] [address] Assigned Surgical Provider 03/09/24 12/09/24 Mariana Acosta PA-C [address] 537905 Assigned Surgical Provider 12/10/24 02/06/25 Purvi Jeong [facility] [address] [place] [address] Pharmacist Pharmacist Pharmacy Innovation Assistant 01/03/25 Lucas Nuno MD [address] [address] Assigned Surgical Provider 02/07/25 Meghan Cox [facility] [address] [place] [address] Pharmacist Pharmacist Pharmacy Innovation Assistant 03/20/25 documented as of this encounter
--- OUTSIDE RECORDS SUMMARY | 2025-05-28 14:21 | XMS_ITS | Encounter Summary ---
Author Organization [facility] Address [address] [place] [address] Care Team Providers Care Nuclear Medicine Technologist Name Role Phone Unknown, Provider Primary Care Provider Unavaila ble Provider, No Primary Primary Care Provider Unava ilable Encounter Details Date Type Department Care Team (Late st Contact Info) Description 08/26/2006 Historical Notes [facility] [address] [place] [address] Lai Carranza MD Social History Tobacco Use Types Packs/Day Years Used Date Smoking Tobacco: Never Assessed Comments Unknown Sex and Gender Information Value Date Recorded Sex Assigned at Not on file Legal Sex Female 8:[address] Gender Identity Not on file Sexual Orientation Not on file documented as of this encounter Miscellaneous Notes * Clinic Follow Up - Lai Carranza MD - 08/26/2006 5:47 PM CST Karo Saini El 08/26/2006 5:47 PM Location: [facility] : 1995 Single/ Language: Undefined/ Ethnicity: [...] this time. I will give parents at [place] form and teachers forms will also get [...] on filedocumented in this encounter Care Teams Nuclear Medicine Technologist Relationship Specialty Start Date End Date Unknown, Provider . YESICA PURI [address] PCP - General 10/07/15 01/30/16 Provider, No Primary . YESICA PURI [address] PCP - General 01/31/16 documented as of this encounter Additional Source Comments PLEASE NOTE: Replies to this message will not be received.[facility]
--- OUTSIDE RECORDS SUMMARY | 2025-05-28 14:21 | XMS_ITS | Clinical Summary ---
Author Organization [place] Address [address] [facility] [place] [address] Care Team Providers Care Cytotechnologist Supervisor Name Role Phone Sarah Juares MD Primary Care Provider Purvi Jeong [facility] Unavailable [phone] Lucas Nuno MD Unavailable [phone] Meghan Cox [facility] Unavailable [phone] Allergies Active Allergy Reactions Criticality Noted [...] 4 MG/0.1ML nasal sprayIndication s:Acute post-operative pain [place] 1 spray (4 mg) into one nostril [...] [facility] Assessment & Plan (12/09/2021 6:41 PM TRACK REPAIR SUPERVISOR): 10% improvement of reflux (perecieved) since adding [...] months Assessment & Plan (10/23/2021 5:11 PM TRACK REPAIR SUPERVISOR): 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 Did great [...] Care Team Description 05/06/2025 MyC Medical Advice [facility] [address] [phone] Mariana Acosta PA-C 04/12/2025 Care Coordination [facility] [address] [phone] Anastasia Molina RN 04/12/2025 Orders Only [facility] [address] [phone] Anastasia oMlina RN 04/12/2025 MyC Medical Advice [facility] [address] [phone] Lucas Nuno MD 03/29/2025 8:30 AM CDT Virtual Visit [facility] [address] [phone] Lucas Nuno MD Large hiatal hernia (Primary Dx) 03/29/2025 MyC Medical Advice [facility] Surgery [address] [phone] Lucas Nuno MD 03/28/2025 Results Follow-Up [facility] [address] [phone] Mariana Acosta PA-C Subj: Message about your results 03/26/2025 Orders Only [facility] [address] [phone] Anastasia Molina RN Constipation, unspecified constipation type; Acute post-operative pain; Hiatal hernia; History of repair of hiatal hernia 03/26/2025 MyC Medical Advice [facility] [address] [phone] Lucas Nuno MD Clinic Care Coordination - Follow-up (medi... 03/26/2025 Telephone [facility] [address] [phone] Lucas Nuno MD Clinic Care Coordination - Follow-up (medications) 03/23/2025 MyC Medical Advice [facility] [address] [phone] Lucas Nuno MD 03/21/2025 MyC Medical Advice [facility] [address] [phone] Anastasia Molina RN 03/20/2025 Telephone [facility] [address] [phone] Mariana Acosta PA-C Prior Auth - Medication (Zepbound is Excluded on pt's new insurance plan ) 03/20/2025 [facility] [place] [facility] [address] [phone] Anastasia Molina RN 03/20/2025 Refill [facility]ty [address] [phone] Meghan Cox Melody Refill Request (ZEPBOUND 7.5 MG/0.5 ML PEN) 03/20/2025 Refill [facility] [address] [phone] Mariana Acosta PA-C Medication Refill 03/19/2025 2:26 PM CDT - 03/23/2025 4:39 PM CDT Hospital Encounter [facility] Dept [address] [place] [address] Heather Manley MD Cheng, Wenlan, MD [place], Samuel, MD Wu Klasek, Connie, MD Jonkman, Tracy Dianne, MD Roach, MD Juanpablo Millard Seema, MD Acute post-operative pain (Primary Dx); Generalized abdominal pain; Fever in adult; Acute superficial gastritis without hemorrhage; Constipation, unspecified constipation type Discharge Disposition: Home or Self Care 03/19/2025 MyC Medical Advice [facility] [address] [phone] Lucas Nuno MD 03/19/2025 Travel 03/17/2025 10:30 AM CDT Virtual Visit [facility] [address] [phone] Eloina Condon CNP Pain associated with surgical procedure (Primary Dx) 03/15/2025 Orders Only [facility] [address] [phone] Anastasia Molina RN Hiatal hernia (Primary Dx) 03/14/2025 [facility] [place] Advice [address] [phone] Lucas Nuno MD 03/13/2025 2:38 PM CDT Anesthesia Event [facility] [address] [place] [phone] Dali Eduardo MD Pizzuto, David, MD 03/13/2025 2:05 PM CDT - 03/13/2025 4:05 PM CDT Surgery [facility] [address] [place] [phone] Lucas Nuno MD Laparoscopic hiatal hernia repair; cruropexy posteriorly; bilateral esophagocruropexy 03/13/2025 11:04 AM CDT - 03/13/2025 7:56 PM CDT Hospital Encounter [facility] [place] [address] [place] [phone] Lucas Nuno MD History of repair of hiatal hernia (Primary Dx); Hiatal hernia; IVC thrombosis (H) Discharge Disposition: Home or Self Care 03/07/2025 12:45 PM CDT Lab [facility] [address] [place] [address] S/P laparoscopic sleeve gastrectomy; Preop [...] Answer Date Recorded PHQ-2 Score 0 02/22/2025 [place] Depression Scale Answer Date Recorded [place] Depression Score 1 07/06/2021 Last EPDS Self [...] AM CDT 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 TRACK REPAIR SUPERVISOR Gender Identity Female 06/03/2022 7:36 AM [...] ANTIBODY (EXTERNAL RESULT) Routine 12/19/2020 9:24 AM TRACK REPAIR SUPERVISOR from Last 3 Months or Most Recently [...] mg/dL 03/23/2025 11:32 AM CDT LABORATORY Specific [place] Urine 1.011 1.003 - 1.035 03/23/2025 11:32 [...] URINE ORDERABLES Fi nal Result RH LABORATORY [facility] Lab [address] Lab (1st floor, no room number) [place] [address], [facility] * (ABNORMAL) CBC with platelets and differential [...] - BLOOD ORDERABLES Final Re sult LABORATORY [facility] [address] [facility] Lab (1st floor, no room number) [place] [address], [facility] * (ABNORMAL) Comprehensive metabolic panel (03/22/2025 5:48 [...] - BLOOD ORDERABLES Final Re sult LABORATORY [facility] Lab [address] Lab (1st floor, no room number) [place] [address], [facility] * Glucose by meter (03/20/2025 8:19 AM CDT) [facility] GLUCOSE BY METER POCT 87 70 - 99 mg/dL 03/20/2025 8:26 AM CDT LABORATORY POC Blood, Capillary BLOOD SPECIMEN / Unknown 03/20/2025 8:19 AM CDT 03/20/2025 8:26 AM CDT Kolby Colon MD LAB - SHANNAAKER POCT Final Resu lt RH LABORATORY [facility] Acute Care Lab [address] Lab (1st floor, no room number) [place] [address], [facility] * CT Abdomen Pelvis w Contrast (03/19/2025 [...] EXAM: CT ABDOMEN PELVIS W CONTRAST LOCATION: [facility] DATE: 03/19/2025 INDICATION: Abdominal pain. Fever. [...] EXAM: CT ABDOMEN PELVIS W CONTRAST LOCATION: [facility] DATE: 03/19/2025 INDICATION: Abdominal pain. Fever. [...] ORDE RABLES Final Result [facility]U IDD LABORATORY [facility] Inf. Diseases Diag. Lab [address] [facility], [address] [place] [address], [facility] * Lactic acid whole blood (03/19/2025 5:48 PM CDT) Lactic Acid 0.8 0.7 - 2.0 mmol/L 03/19/2025 6:12 PM CDT LABORATORY Blood STRUCTURE OF LEFT UPPER LIMB / Unknown Venipuncture / Unknown 03/19/2025 5:48 PM CDT 03/19/2025 6:10 PM CDT Heather Manley MD LAB - BLOOD ORDERABLES F inal Result LABORATORY [facility] [address] [facility] Lab (1st floor, no room number) [place] [address], [facility] * (ABNORMAL) Lactic Acid Whole Blood with 1X Repeat in 2 HR when >2 (03/19/2025 4:39 PM CDT) Lactic Acid, Initial 2.1(H) 0.7 - 2.0 mmol/L 03/19/2025 4:51 PM CDT RH LABORATORY Blood STRUCTURE OF LEFT UPPER LIMB / Unknown Venipuncture / Unknown 03/19/2025 4:39 PM CDT 03/19/2025 4:45 PM CDT Heather Manley MD LAB - BLOOD ORDERABLES F inal Result RH LABORATORY [facility] Lab [address] Lab (1st floor, no room number) [place] [address] * CT Chest (PE) Abdomen Pelvis w [...] CHEST PE ABDOMEN PELVIS W CONTRAST LOCATION: [facility] DATE: 03/19/2025 INDICATION: History of pulmonary [...] CHEST PE ABDOMEN PELVIS W CONTRAST LOCATION: [facility] DATE: 03/19/2025 INDICATION: History of pulmonary [...] Atrial Rate 76 BPM RADIOLOG Y RESULTS ME Interval 144 ms RADIOLOG Y RESULTS QRS Duration 80 ms RADIOLO GY RESULTS QT 400 ms RADIOLOGY RESULTS QTc 450 ms RADIOLOGY RESULTS P [place] 50 degrees RADIOLOGY RESULTS R AXIS 72 degrees RADIOLOGY RESULTS T [place] 15 degrees RADIOLOGY RESULTS Interpretation ECG Sinus rhythm Normal ECG When compared with ECG of 18-Jul-2024 07:16, No significant change was found Unconfirmed report - interpretation of this ECG is computer generated - see medical record for final interpretation Confirmed by - EMERGENCY ROOM, PHYSICIAN ([id number]), assistant film editor Micah Mack ([id number]) on 03/19/2025 2:47:47 PM RADIOLOGY RESULTS 03/19/2025 2:31 PM CDT 03/19/2025 2:47 PM CDT Heather Manley MD ECG ORDERABLES Edited R esult - Final RADIOLOGY RESULTS * Extra Red Top Tube (03/19/2025 2:20 PM CDT) Pathologist [facility] Hold Specimen JIC 03/19/2025 3:31 PM CDT LABORATORY Blood STRUCTURE OF RIGHT UPPER LIMB / Unknown Venipuncture / Unknown 03/19/2025 2:20 PM CDT 03/19/2025 2:24 PM CDT Heather Manley MD LAB - BLOOD ORDERABLES F inal Result RH LABORATORY [facility] [address] Lab (1st floor, no room number) [place] [address] * Extra Blue Top Tube (03/19/2025 2:20 PM CDT) Hold Specimen JIC 03/19/2025 3:31 PM CDT LABORATORY Blood STRUCTURE OF RIGHT UPPER LIMB / Unknown Venipuncture / Unknown 03/19/2025 2:20 PM CDT 03/19/2025 2:24 PM CDT Heather Manley MD LAB - BLOOD ORDERABLES F inal Result LABORATORY [facility] [address] [facility], no room number) [place] [phone] * (ABNORMAL) Basic metabolic panel (BMP) (03/19/2025 [...] LAB - BLOOD ORDERABLES F inal Result [facility] Acute Care Lab [address] [facility] Lab (1st floor, no room number) [place] [address] * XR Chest Port 1 View (03/13/2025 [...] 2:55 PM CDT) Narrative Mindy Jimenez APRN PARKING LOT MANAGER - 03/13/2025 2:55 PM CDT Mindy Jimenez APRN PARKING LOT MANAGER 03/13/2025 3:03 PM Airway Procedure Start/Stop Times: 03/13/2025 2:55 PM Staff - Other Anesthesia Staff: Felicity Morales Performed By: SUREKHA, with CRNAs and anesthesiologist Procedure performed by resident/fellow/PARKING LOT MANAGER in presence of a teaching physician. Indications [...] 03/13/2025 2:55 PM us Dali Eduardo MD ME ANESTHESIA Edited Re sult - Final * Adult Type and Screen (03/07/2025 12:49 PM CDT) ABO/RH(D) A POS 03/06/2025 7:00 PM CDT RH BLOOD BANK Antibody Screen Negative Negative 03/06/2025 7:00 PM CDT RH BLOOD BANK SPECIMEN EXPIRATION DATE [id number] 03/06/2025 7:00 PM CDT RH BLOOD BANK Blood BLOOD SPECIMEN / Unknown Venipuncture / Unknown 03/07/2025 12:49 PM CDT 03/07/2025 12:49 PM CDT Darcy Yusuf APRN STAFF CYTOTECHNOLOGIST LAB - BLOOD BANK TEST ORDER Final Result BLOOD BANK [address] [place] [address] * Vitamin D Deficiency (03/07/2025 12:49 PM CDT) Vitamin D, Total (25-Hydroxy) 23 20 - 50 ng/mL 03/08/2025 1:06 PM CDT [facility] LABORATORY Comment:optimum levels Blood BLOOD SPECIMEN / Unknown Venipuncture / Unknown 03/07/2025 12:49 PM CDT 03/07/2025 12:49 PM CDT Narrative [facility] LABORATORY - 03/08/2025 1:06 PM CDT Season, race, dietary intake, and treatment affect the concentration of 85-woardtk-Potvocs D. Values may decrease during winter months and increase during summer months. Vitamin D determination is routinely performed by an immunoassay specific for 25 hydroxyvitamin D3. If an individual is on vitamin D2(ergocalciferol) supplementation, please specify 25 [place] vitamin D2 and D3 level determination by LCMSMS test VITD23. Mariana Acosta PA-C LAB - BLOOD ORDERABL ES Final Result [facility] LABORATORY [facility] [place] [facility] Lab [address] [facility], [address] [place] [address], [facility] * Vitamin A (03/07/2025 12:49 PM CDT) Vitamin A 0.43 0.30 - 1.20 mg/L 03/10/2025 6:33 AM CDT [facility] Retinol Palmitate <0.02 0.00 - 0.10 mg/L 03/10/2025 6:33 AM CDT [facility] Vitamin A Interp Normal 05/24/20 25 6:33 AM CDT [facility] Comment: This test was developed and its performance characteristics determined by [facility] [employer]. It has not been cleared or approved by the US Food and Drug Administration. This test was performed in a CLIA certified laboratory and is intended for clinical purposes. Performed By: [facility] [employer] [address] [place] [address] Machine Rough Rounder: Glen Thorpe MD, PhD CLIA Number: [id number] Blood BLOOD SPECIMEN / Unknown Venipuncture / Unknown 03/07/2025 12:49 PM CDT 03/07/2025 12:49 PM CDT Mariana Acosta PA-C LAB - BLOOD ORDERABL ES Final Result [address] [address], [facility] [phone] * Parathyroid Hormone Intact (03/07/2025 12:49 PM [...] differs from PTH assays used in other [facility] laboratories. Darcy Yusuf APRN STAFF CYTOTECHNOLOGIST LAB - BLOOD ORDERABLES Final Result LABORATORY [facility] [address] Lab (1st floor, no room number) [place] [address], [facility] * (ABNORMAL) Lipid panel reflex to direct [...] BLOOD ORDERABL ES Final Result [facility] LABORATORY [facility] [place] [facility] [address] [facility], [address] [place] [address] * Hemoglobin A1c (03/07/2025 12:49 PM CDT) [...] BLOOD ORDERABL ES Final Result RI LABORATORY [facility] Lab [address], [address] [place] [address], [facility] * (ABNORMAL) Vitamin B12 (03/07/2025 12:49 PM CDT) Pathologist [facility] Vitamin B12 162(L) 232 - 1,245 pg/mL 03/08/2025 1:06 PM CDT [facility] LAB[facility]ATORY Blood BLOOD SPECIMEN / Unknown Venipuncture / Unknown 03/07/2025 12:49 PM CDT 03/07/2025 12:49 PM CDT Mariana Acosta PA-C LAB - BLOOD ORDERABL ES Final Result [facility] LABORATORY [facility] [place] [facility] [address] [facility], [address] [address] * (ABNORMAL) CBC with platelets (03/07/2025 12:49 [...] CDT 03/07/2025 12:49 PM CDT Darcy Yusuf POOL TABLE MECHANIC STAFF CYTOTECHNOLOGIST LAB - BLOOD ORDERABLES Final Result RI LABORATORY [facility] [address], [address] [place] [address], [facility] * HIV-1 Antibody (External Result) (12/19/2020 9:24 AM TRACK REPAIR SUPERVISOR) [facility] HIV 1&2 Antibody (External) Negative Nonreactive [facility] 12/19/2020 9:24 AM TRACK REPAIR SUPERVISOR us Patient Reported LAB - HIM EXTERNAL RESULT Final Result [facility] [address] [place], [place] [address] [phone] from Last 3 Months or Most Recently Relevant to Health Maintenance Insurance [facility] OUT OF STATE [facility] * Guarantor: Karo Chavira Account Type Relation to Patient Date of Phone Billing Address Medication Therapy Self 1995 [address] [place] [address] Advance Directives For more information, please contact: [phone] * Full Code (Latest Code Status on [...] 1:00 AM 05/17/2014 2:26 PM Care Teams Cytotechnologist Supervisor Relationship Specialty [place] [address] [place] [address] PCP - General Family Medicine 03/13/25 Purvi Jeong [facility] [address] [place] [address] [phone] Pharmacist Pharmacist Wood Flour Miller 01/03/25 Lucas Nuno MD [address] [place] [address] Assigned Surgical Provider 02/07/25 Meghan Cox [facility] [address] [place] [address] [phone] Pharmacist Pharmacist Wood Flour Miller 03/20/25
--- OUTSIDE RECORDS SUMMARY | 2025-05-28 14:21 | XMS_ITS | Encounter Summary ---
Author Organization [facility] Address [address] [place] [address] Care Team Providers Care Apparel Pattern Maker Name Role Phone Unknown, Provider Primary Care Provider Unavaila ble Provider, No Primary Primary Care Provider Unava ilable Encounter Details Date Type Department Care Team (Late st Contact Info) Description 09/20/2006 Historical Notes [facility] Family Medicine [address] 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 : 1995 Single/ Language: Undefined/ Ethnicity: Undefined [...] fill out. Mom will fill out any [place] form on attention deficit disorder. I also [...] on filedocumented in this encounter Care Teams Apparel Pattern Maker Relationship Specialty Start Date End Date Unknown, Provider . YESICA PURI [address] PCP - General 10/07/15 01/30/16 Provider, No Primary . YESICA PURI [address] PCP - General 01/31/16 documented as of this encounter Additional Source Comments PLEASE NOTE: Replies to this message will not be received.[facility]
--- OUTSIDE RECORDS SUMMARY | 2025-05-28 14:21 | XMS_ITS | Encounter Summary ---
Author Organization [place] Address [address] [facility] [place] [address] Care Team Providers Care Dedicated Owner Operator Name Role Phone Sarah Juares MD Primary Care Provider [phone] Mariana Acosta PA-C Unavailable + [phone] Purvi Jeong [facility] Unavailable [phone] Lucas Nuno MD Unavailable [phone] Meghan Cox [facility] Unavailable [phone] Encounter Details Date Type Department Care Team (Late st Contact Info) Description 01/25/2025 MyC Medical Advice [facility] [address] 4th [place] [address] Anastasia Molina, RN Social History Tobacco Use Types Packs/Day Years Used Date Smoking Tobacco: Former Smokeless Tobacco: Never Alcohol Use Standard Drinks/Week Comments Not Currently 0 (1 standard drink = 0.6 oz pur e alcohol) rare PHQ-2 Answer Date Recorded PHQ-2 Score 0 11/15/2024 [place] Depression Scale Answer Date Recorded [place] Depression Score 1 07/06/2021 Last EPDS Self [...] AM CDT 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 SENIOR FIRE PROTECTION ENGINEER Gender Identity Female 06/03/2022 7:36 AM CDT Sexual Orientation Straight 06/03/2022 7: 36 AM CDT documented as of this encounter Plan of Treatment Not on file documented as of this encounter Visit Diagnoses Not on filedocumented in this encounter Care Teams Dedicated Owner Operator Relationship Specialty [place] [address] [place] [address] PCP - General Family Medicine 03/13/25 Mariana Acosta PA-C [address] [place] [address] [phone] Assigned Surgical Provider 12/10/24 02/06/25 Purvi Jeong [facility] [address] [place] [address] [phone] Pharmacist Pharmacist Wine Merchant 01/03/25 Lucas Nuno MD [address] [place] [address] [phone] Assigned Surgical Provider 02/07/25 [facility] [address] [place] [address] [phone] Pharmacist Pharmacist Wine Merchant 03/20/25 documented as of this encounter
--- OUTSIDE RECORDS SUMMARY | 2025-05-28 14:21 | XMS_ITS | Encounter Summary ---
Author Organization [place] Address [address] [facility] [place] [address] Care Team Providers Care Patient Appointment Coordinator Name Role Phone Sarah Juares MD Primary Care Provider [phone] Lucas Nuno MD Unavailable [phone] Mariana Acosta PA-C Unavailable + [phone] Purvi Jeong [facility] Unavailable [phone] Lucas Nuno MD Unavailable [phone] Meghan Cox [facility] Unavailable [phone] Encounter Details Date Type Department Care Team (Late st Contact Info) Description 11/17/2024 [facility] Medical Advice [facility] Pharm D Project [address] [place] [address] A[place] Social History Tobacco Use Types Packs/Day Years Used Date Smoking Tobacco: Former Smokeless Tobacco: Never Alcohol Use Standard Drinks/Week Comments Not Currently 0 (1 standard drink = 0.6 oz pur e alcohol) rare PHQ-2 Answer Date Recorded PHQ-2 Score 0 11/15/2024 [place] Depression Scale Answer Date Recorded [place] Depression Score 1 07/06/2021 Last EPDS Self Harm Result Not on file 07/06 Adolescent Education Answer Date Record ed Getting School Help Needed Not on file 07/10 Comments No Sex and Gender Information Value Date Recorded Sex Assigned at Female 06/03/2022 7:36 AM CDT 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 Gender Identity Female 06/03/2022 7:36 AM CDT Sexual Orientation Straight 06/03/2022 7: 36 AM CDT documented as of this encounter Plan of Treatment Not on file documented as of this encounter Visit Diagnoses Not on filedocumented in this encounter Care Teams Patient Appointment Coordinator Relationship Specialty [place] [address] [place] [address] PCP - General Family Medicine 03/13/25 Lucas Nuno MD [address] [place] [address] Assigned Surgical Provider 03/09/24 12/09/24 Mariana Acosta PA-C [address] [address] Assigned Surgical Provider 12/10/24 02/06/25 Purvi Jeong [facility] [address] [place] [address] Pharmacist Pharmacist Academic Counselor 01/03/25 Lucas Nuno MD [address] [place] [address] Assigned Surgical Provider 02/07/25 Meghan Cox [facility] [address] [place] [address] Pharmacist Pharmacist Academic Counselor 03/20/25 documented as of this encounter
--- OUTSIDE RECORDS SUMMARY | 2025-05-28 14:21 | XMS_ITS | Encounter Summary ---
Author Organization [place] Address [address] [facility] [place] [address] Care Team Providers Care Client Care Coordinator Name Role Phone Sarah Juares MD Primary Care Provider [phone] Mariana Acosta PA-C Unavailable + [phone] Purvi Jeong [facility] Unavailable [phone] Lucas Nuno MD Unavailable [phone] Meghan Cox [facility] Unavailable [phone] Encounter Details Date Type Department Care Team (Late st Contact Info) Description 02/02/2025 MyC Medical Advice [facility] [address] 4th [place] [address] Anastasia Molina, RN Social History Tobacco Use Types Packs/Day Years Used Date Smoking Tobacco: Former Smokeless Tobacco: Never Alcohol Use Standard Drinks/Week Comments Not Currently 0 (1 standard drink = 0.6 oz pur e alcohol) rare PHQ-2 Answer Date Recorded PHQ-2 Score 0 11/15/2024 [place] Depression Scale Answer Date Recorded [place] Depression Score 1 07/06/2021 Last EPDS Self [...] AM CDT 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 Gender Identity Female 06/03/2022 7:36 AM CDT Sexual Orientation Straight 06/03/2022 7: 36 AM CDT documented as of this encounter Plan of Treatment Not on file documented as of this encounter Visit Diagnoses Not on filedocumented in this encounter Care Teams Client Care Coordinator Relationship Specialty [place] [address] [place] [address] PCP - General Family Medicine 03/13/25 Mariana Acosta PA-C [address] [place] [address] [phone] Assigned Surgical Provider 12/10/24 02/06/25 Purvi Jeong [facility] [address] [place] [address] [phone] Pharmacist Pharmacist Shipping Receiving Clerk 01/03/25 Lucas Nuno MD [address] [place] [address] [phone] Assigned Surgical Provider 02/07/25 [facility] [address] [place] [address] [phone] Pharmacist Pharmacist Shipping Receiving Clerk 03/20/25 documented as of this encounter
--- OUTSIDE RECORDS SUMMARY | 2025-05-28 14:21 | XMS_ITS | Encounter Summary ---
Author Organization [place] Address [address] [facility] [place] [address] Care Team Providers Care Bar Attendant Name Role Phone Sarah Juares MD Primary Care Provider [phone] Lucas Nuno MD Unavailable +[phone] Mariana Acosta PA-C Unavailable + [phone] Purvi Jeong [facility] Unavailable [phone] Lucas Nuno MD Unavailable [phone] Meghan Cox [facility] Unavailable [phone] Encounter Details Date Type Department Care Team (Late st Contact Info) Description 03/15/2024 MyC Medical Advice [facility] [address] 4th [place] [address] Giuliana Masterson Social History Tobacco Use Types Packs/Day Years Used Date Smoking Tobacco: Former Smokeless Tobacco: Never Alcohol Use Standard Drinks/Week Comments Not Currently 0 (1 standard drink = 0.6 oz pur e alcohol) rare PHQ-2 Answer Date Recorded PHQ-2 Score 0 05/12/2023 [place] Depression Scale Answer Date Recorded [place] Depression Score 1 07/06/2021 Last EPDS Self Harm Result Not on file 07/06 Adolescent Education Answer Date Record ed Getting School Help Needed Not on file 07/10 Comments No Sex and Gender Information Value Date Recorded Sex Assigned at Female 06/03/2022 7:36 AM CDT 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 Gender Identity Female 06/03/2022 7:36 AM CDT Sexual Orientation Straight 06/03/2022 7: 36 AM CDT documented as of this encounter Plan of Treatment Not on file documented as of this encounter Visit Diagnoses Not on filedocumented in this encounter Care Teams Bar Attendant Relationship Specialty [place] [address] [place] [address] PCP - General Family Medicine 03/13/25 Lucas Nuno MD [address] [address] Assigned Surgical Provider 03/09/24 12/09/24 Mariana Acosta PA-C [address] [phone] Assigned Surgical Provider 12/10/24 02/06/25 Purvi Jeong [facility] [address] [place] [address] Pharmacist Pharmacist Virologist 01/03/25 Lucas Nuno MD [address] [address] Assigned Surgical Provider 02/07/25 Meghan Cox [facility] [address] [place] [address] Pharmacist Pharmacist Virologist 03/20/25 documented as of this encounter
--- OUTSIDE RECORDS SUMMARY | 2025-05-28 14:21 | XMS_ITS | Encounter Summary ---
Author Organization [place] Address [address] [facility] [place] [address] Care Team Providers Care Roof Slater Name Role Phone Sarah Juares MD Primary Care Provider [phone] Mariana Acosta-C Unavailable + [phone] Purvi Jeong [facility] Unavailable [phone] Lucas Nuno MD Unavailable [phone] Meghan Cox [facility] Unavailable [phone] Encounter Details Date Type Department Care Team (Late st Contact Info) Description 01/30/2025 MyC Medical Advice [facility] [address] [facility] 4th [place] [address] Keena Valente Social History Tobacco Use Types Packs/Day Years Used Date Smoking Tobacco: Former Smokeless Tobacco: Never Alcohol Use Standard Drinks/Week Comments Not Currently 0 (1 standard drink = 0.6 oz pur e alcohol) rare PHQ-2 Answer Date Recorded PHQ-2 Score 0 11/15/2024 [place] Depression Scale Answer Date Recorded [place] Depression Score 1 07/06/2021 Last EPDS Self [...] AM CDT 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 Gender Identity Female 06/03/2022 7:36 AM CDT Sexual Orientation Straight 06/03/2022 7: 36 AM CDT documented as of this encounter Plan of Treatment Not on file documented as of this encounter Visit Diagnoses Not on filedocumented in this encounter Care Teams Roof Slater Relationship Specialty [place] [address] [place] [address] PCP - General Family Medicine 03/13/25 Mariana Acosta PA-C [address] [place] [address] [phone] Assigned Surgical Provider 12/10/24 02/06/25 Purvi Jeong [facility] [address] [place] [address] [phone] Pharmacist Pharmacist Travel Insurance Agent 01/03/25 Lucas Nuno MD [address] [place] [address] [phone] Assigned Surgical Provider 02/07/25 [facility] [address] [place] [address] Pharmacist Pharmacist Travel Insurance Agent 03/20/25 documented as of this encounter
--- OUTSIDE RECORDS SUMMARY | 2025-05-28 14:21 | XMS_ITS | CCD ---
Author Name Interface, [id number] lity Address [address] [place] [address] [facility] Address [facility] [address] [address] Care Team Providers Care Extrusion Die Coordinator Name Role Phone Forest MASON, Enzo Unavailable Unavailable Allergies and Adverse Reactions Reason for Visit Medications Problems Social History
--- OUTSIDE RECORDS SUMMARY | 2025-05-28 14:21 | XMS_ITS | Encounter Summary ---
Author Organization [place] Address [facility] [place] [address] Care Team Providers Care Soil Conservation Technician Name Role Phone Mariana Acosta PA-C Unavailable + [phone] Sarah Juares MD Primary Care Provider [phone] Lucas Nuno MD Unavailable [phone] Mariana Acosta PA-C Unavailable + [phone] Lucas Nuno MD Unavailable [phone] Mariana Acosta PA-C Unavailable + [phone] Purvi Jeong [facility] Unavailable [phone] Lucas Nuno MD Unavailable [phone] Meghan Cox [facility] Unavailable [phone] Reason for Visit * Reason Onset Date Comments Refill Request 10/20/2023 Encounter Details Date Type Department Care Team (Late st Contact Info) Description 10/20/2023 [facility] [place] [address] [facility] [address] 4th [place] [address] Mariana Acosta PA-C [address] [facility] [address] [place] [address] Refill Request Social History Tobacco Use Types Packs/Day Years Used Date Smoking Tobacco: Former Smokeless Tobacco: Never Alcohol Use Standard Drinks/Week Comments Not Currently 0 (1 standard drink = 0.6 oz pur e alcohol) rare PHQ-2 Answer Date Recorded PHQ-2 Score 0 05/12/2023 [place] Depression Scale Answer Date Recorded [place] Depression Score 1 07/06/2021 Last EPDS Self Harm Result Not on file 07/06 Adolescent Education Answer Date Record ed Getting School Help Needed Not on file 07/10 Comments No Sex and Gender Information Value Date Recorded Sex Assigned at Female 06/03/2022 7:36 AM CDT 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 Gender Identity Female 06/03/2022 7:36 AM CDT Sexual Orientation Straight 06/03/2022 7: 36 AM CDT documented as of this encounter Plan of Treatment Not on file documented as of this encounter Visit Diagnoses Diagnosis Class 2 severe obesity due to excess calories with serious comorbidity and body mass index (BMI) of 39.0 to 39.9 in adult (H) documented in this encounter Care Teams Soil Conservation Technician Relationship Specialty [place] [address] [facility] [place] [address] PCP - General Family Medicine 03/13/25 Mariana Acosta PA-C [address] [place] [address] [phone] Assigned Surgical Provider 09/05/22 12/09/23 Lucas Nuno MD [address] [phone] Assigned Surgical Provider 12/10/23 01/07/24 Mariana Acosta PA-C [address] [place] [address] [phone] Assigned Surgical Provider 01/08/24 03/08/24 Lucas Nuno MD [address] [place] [address] 48635 Assigned Surgical Provider 03/09/24 12/09/24 Mariana Acosta PA-C [address] [place] [address] Assigned Surgical Provider 12/10/24 02/06/25 Purvi Jeong [facility] [address] [place] [address] Pharmacist Pharmacist Hazard Waste Handler 01/03/25 Lucas Nuno MD [address] [place] [address] Assigned Surgical Provider 02/07/25 Meghan Cox [facility] 9[address] [place] [address] Pharmacist Pharmacist Hazard Waste Handler 03/20/25 documented as of this encounter
--- OUTSIDE RECORDS SUMMARY | 2025-05-28 14:21 | XMS_ITS | Encounter Summary ---
Author Organization [place] Address [address] [facility] [place] [address] Care Team Providers Care Gis Database Administrator Name Role Phone Sarah Juares MD Primary Care Provider [phone] Lucas Nuno MD Unavailable [phone] Mariana AcostaC Unavailable + [phone] Purvi Jeong [facility] Unavailable [phone] Lucas Nuno MD Unavailable [phone] Meghan Cox [facility] Unavailable [phone] Reason for Visit * Reason Onset Date Comments Prior Auth - Medication 11/15/2024 Miguelina mccormick Approved Encounter Details Date Type Department Care Team (Late st Contact Info) Description 11/15/2024 Telephone [facility] [place] [address] [facility] [address] 4th [place] [address] Mariana Acosta PA-C [address] [facility] [address] [place] [address] Prior Auth - Medication (Miguelina pa Approved) Social History Tobacco Use Types Packs/Day Years Used Date Smoking Tobacco: Former Smokeless Tobacco: Never Alcohol Use Standard Drinks/Week Comments Not Currently 0 (1 standard drink = 0.6 oz pur e alcohol) rare PHQ-2 Answer Date Recorded PHQ-2 Score 0 02/22/2025 [place] Depression Scale Answer Date Recorded [place] Depression Score 1 07/06/2021 Last EPDS Self [...] in an abandoned building, in an overnight half-way, or couch-surfing.) Yes 03/21/2025 Are you worried [...] AM CDT 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 Prior Authorization Approval Medication: ZEPBOUND 2.5 MG/0.5ML [place] SOAJ Authorization Effective Date: 10/20/2024 Authorization Expiration Date: 05/16/2025 Approved Dose/Quantity: 2 Reference #: [id number] Insurance Company: [employer] [phone] Expected CoPay: $ Zero CoPay Card Available: Financial Assistance Needed: NO Which Pharmacy is filling the prescription: Pharmacy Notified: yes Patient Notified: yes DING CONSTRUCTION CONTRACTOR * Telephone Encounter - Tamie Gonzalez - 11/15/2024 2:42 PM CST Images from the original note were not included. PA Initiation Medication: ZEPBOUND 2.5 MG/0.5ML [place] SOAJ Insurance Company: [employer] [phone] Pharmacy Filling the Rx: Filling Pharmacy Phone: Filling Pharmacy Fax: Start Date: 11/15/2024 DING CONSTRUCTION CONTRACTOR documented in this encounter Plan of Treatment Not on file documented as of this encounter Visit Diagnoses Not on filedocumented in this encounter Care Teams Gis Database Administrator Relationship Specialty [place] [address] [place] [address] PCP - General Family Medicine 03/13/25 Lucas Nuno MD [address] [place] [address] Assigned Surgical Provider 03/09/24 12/09/24 Mariana Acosta PA-C [address] [place] [address] 28284 Assigned Surgical Provider 12/10/24 02/06/25 Purvi Jeong [facility] [address] [place] [address] Pharmacist Pharmacist Web Database Developer 01/03/25 Lucas Nuno MD [address] [place] [address] 847[address] Assigned Surgical Provider 02/07/25 Meghan Cox [place] [address] [place] [phone] Pharmacist Pharmacist Web Database Developer 03/20/25 documented as of this encounter
--- OUTSIDE RECORDS SUMMARY | 2025-05-28 14:21 | XMS_ITS | Encounter Summary ---
Author Organization [place] Address [address] [facility] [place] [address] Care Team Providers Care Cold Saw Operator Name Role Phone Sarah Juares MD Primary Care Provider [phone] Mariana AcostaC Unavailable + [phone] Purvi Jeong [facility] Unavailable [phone] Lucas Nuno MD Unavailable [phone] Meghan Cox [facility] Unavailable [phone] Encounter Details Date Type Department Care Team (Late st Contact Info) Description 01/09/2025 MyC Medical Advice [facility] [address] 4th [place] [address] Mirna Ibrahim, ELIZABETH Social History Tobacco Use Types Packs/Day Years Used Date Smoking Tobacco: Former Smokeless Tobacco: Never Alcohol Use Standard Drinks/Week Comments Not Currently 0 (1 standard drink = 0.6 oz pur e alcohol) rare PHQ-2 Answer Date Recorded PHQ-2 Score 0 11/15/2024 [place] Depression Scale Answer Date Recorded [place] Depression Score 1 07/06/2021 Last EPDS Self Harm Result Not on file 07/06 Adolescent Education Answer Date Record ed Getting School Help Needed Not on file 07/10 Comments No Sex and Gender Information Value Date Recorded Sex Assigned at Female 06/03/2022 7:36 AM CDT 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 Gender Identity Female 06/03/2022 7:36 AM CDT Sexual Orientation Straight 06/03/2022 7: 36 AM CDT documented as of this encounter Plan of Treatment Not on file documented as of this encounter Visit Diagnoses Not on filedocumented in this encounter Care Teams Cold Saw Operator Relationship Specialty [place] [address] [address] [place] [address] PCP - General Family Medicine 03/13/25 Mariana Acosta PA-C [address] [place] [address] Assigned Surgical Provider 12/10/24 02/06/25 Purvi Jeong [facility] [address] [place] [address] Pharmacist Pharmacist Quantometer Operator 01/03/25 Lucas Nuno MD [address] [place] [address] Assigned Surgical Provider 02/07/25 Meghan Cox [facility] [address] [place] [address] Pharmacist Pharmacist Quantometer Operator 03/20/25 documented as of this encounter
--- OUTSIDE RECORDS SUMMARY | 2025-05-28 14:21 | XMS_ITS | Encounter Summary ---
Author Organization [place] Address [facility] [place] [address] Care Team Providers Care Stitch Bonding Machine Tender Name Role Phone Sarah Juares MD Primary Care Provider [phone] Lucas Nuno MD Unavailable [phone] Mariana Acosta PA-C Unavailable + [phone] Purvi Jeong [facility] Unavailable [phone] Lucas Nuno MD Unavailable [phone] Meghan Cox [facility] Unavailable [phone] Encounter Details Date Type Department Care Team (Late st Contact Info) Description 03/30/2024 MyC Medical Advice [facility] [address] [place] [address] Veronica Dickinson Social History Tobacco Use Types Packs/Day Years Used Date Smoking Tobacco: Former Smokeless Tobacco: Never Alcohol Use Standard Drinks/Week Comments Not Currently 0 (1 standard drink = 0.6 oz pur e alcohol) rare PHQ-2 Answer Date Recorded PHQ-2 Score 0 05/12/2023 [place] Depression Scale Answer Date Recorded [place] Depression Score 1 07/06/2021 Last EPDS Self Harm Result Not on file 07/06 Adolescent Education Answer Date Record ed Getting School Help Needed Not on file 07/10 Comments No Sex and Gender Information Value Date Recorded Sex Assigned at Female 06/03/2022 7:36 AM CDT 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 Gender Identity Female 06/03/2022 7:36 AM CDT Sexual Orientation Straight 06/03/2022 7: 36 AM CDT documented as of this encounter Plan of Treatment Not on file documented as of this encounter Visit Diagnoses Not on filedocumented in this encounter Care Teams Stitch Bonding Machine Tender Relationship Specialty [place] [address] [place] [address] PCP - General Family Medicine 03/13/25 Lucas Nuno MD [address] [address] Assigned Surgical Provider 03/09/24 12/09/24 Mariana Acosta PA-C [address] [address] Assigned Surgical Provider 12/10/24 02/06/25 Purvi Jeong [facility] [address] [place] [address] Pharmacist Pharmacist Variety Lathe Operator 01/03/25 Lucas Nuno MD [address] [address] Assigned Surgical Provider 02/07/25 Meghan Cox [facility] [address] [place] [address] Pharmacist Pharmacist Variety Lathe Operator 03/20/25 documented as of this encounter
--- OUTSIDE RECORDS SUMMARY | 2025-05-28 14:21 | XMS_ITS | Encounter Summary ---
Author Organization [place] Address [address] [facility] [place] [address] Care Team Providers Care Hearing Examiner Name Role Phone Sarah Juares MD Primary Care Provider [phone] Lucas Nuno MD Unavailable [phone] Mariana Acosta PA-C Unavailable + [phone] Purvi Je[address] [facility] Unavailable [phone] Lucas Nuno MD Unavailable [phone] Meghan Cox [facility] Unavailable [phone] Encounter Details Date Type Department Care Team (Late st Contact Info) Description 11/15/2024 MyC Medical Advice [facility] [address] 4th [place] [address] Mariana Acosta PA-C [address] [facility] [address] [place] [address] Social History Tobacco Use Types Packs/Day Years Used Date Smoking Tobacco: Former Smokeless Tobacco: Never Alcohol Use Standard Drinks/Week Comments Not Currently 0 (1 standard drink = 0.6 oz pur e alcohol) rare PHQ-2 Answer Date Recorded PHQ-2 Score 0 11/15/2024 [place] Depression Scale Answer Date Recorded [place] Depression Score 1 07/06/2021 Last EPDS Self Harm Result Not on file 07/06 Adolescent Education Answer Date Record ed Getting School Help Needed Not on file 07/10 Comments No Sex and Gender Information Value Date Recorded Sex Assigned at Female 06/03/2022 7:36 AM CDT 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 Gender Identity Female 06/03/2022 7:36 AM CDT Sexual Orientation Straight 06/03/2022 7: 36 AM CDT documented as of this encounter Plan of Treatment Not on file documented as of this encounter Visit Diagnoses Not on filedocumented in this encounter Care Teams Hearing Examiner Relationship Specialty [place] [address] [facility] [place] [address] PCP - General Family Medicine 03/13/25 Lucas Nuno MD [address] [place] [address]6212 Assigned Surgical Provider 03/09/24 12/09/24 Mariana Acosta PA-C [address] [place] [address] [phone] Assigned Surgical Provider 12/10/24 02/06/[address] [facility] [address] [place] [address] 46690 Pharmacist Pharmacist Cable Wirer 01/03/25 Lucas Nuno MD [address] [place] [address] 85572 Assigned Surgical Provider 02/07/25 Meghan [address] [facility] [address] [place] [address] [phone] Pharmacist Pharmacist Cable Wirer 03/20/25 documented as of this encounter
--- OUTSIDE RECORDS SUMMARY | 2025-05-28 14:21 | XMS_ITS | Encounter Summary ---
Author Organization [place] Address [address] [facility] [place] [address] Care Team Providers Care A Operator Name Role Phone Sarah Juares MD Primary Care Provider [phone] Lucas Nuno MD Unavailable [phone] Mariana Acosta PA-C Unavailable + [phone] Purvi Jeong [facility] Unavailable [phone] Lucas Nuno MD Unavailable [phone] Meghan Cox [facility] Unavailable [phone] Encounter Details Date Type Department Care Team (Late st Contact Info) Description 11/16/2024 MyC Medical Advice [facility] [address] 4th [place] [address] Anastasia Molina, RN Social History Tobacco Use Types Packs/Day Years Used Date Smoking Tobacco: Former Smokeless Tobacco: Never Alcohol Use Standard Drinks/Week Comments Not Currently 0 (1 standard drink = 0.6 oz pur e alcohol) rare PHQ-2 Answer Date Recorded PHQ-2 Score 0 11/15/2024 [place] Depression Scale Answer Date Recorded [place] Depression Score 1 07/06/2021 Last EPDS Self Harm Result Not on file 07/06 Adolescent Education Answer Date Record ed Getting School Help Needed Not on file 07/10 Comments No Sex and Gender Information Value Date Recorded Sex Assigned at Female 06/03/2022 7:36 AM CDT 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 Gender Identity Female 06/03/2022 7:36 AM CDT Sexual Orientation Straight 06/03/2022 7: 36 AM CDT documented as of this encounter Plan of Treatment Not on file documented as of this encounter Visit Diagnoses Not on filedocumented in this encounter Care Teams A Operator Relationship Specialty [place] [address] [place] [address] PCP - General Family Medicine 03/13/25 Lucas Nuno MD [address] [address] Assigned Surgical Provider 03/09/24 12/09/24 Mariana Acosta PA-C [address] [phone] Assigned Surgical Provider 12/10/24 02/06/25 Purvi Jeong [facility] [address] [place] [address] Pharmacist Pharmacist Product Managent Intern 01/03/25 Lucas Nuno MD [address] [address] Assigned Surgical Provider 02/07/25 Meghan Cox [facility] 909 [place] [address] Pharmacist Pharmacist Product Managent Intern 03/20/25 documented as of this encounter
--- OUTSIDE RECORDS SUMMARY | 2025-05-28 14:21 | XMS_ITS | Encounter Summary ---
Author Organization [place] Address [address] [place] [address] Care Team Providers Care Carpenter Railcar Name Role Phone Mariana Acosta-Noreen Unavailable + [phone] Sarah Juares MD Primary Care Provider [phone] Lucas Nuno MD Unavailable +[phone] Mariana Acosta-C Unavailable + [phone] Lucas Nuno MD Unavailable +[phone] Mariana Acosta-C Unavailable + [phone] Purvi Jeong [facility] Unavailable [phone] Lucas Nuno MD Unavailable +[phone] Meghan Cox [facility] Unavailable [phone] Encounter Details Date Type Department Care Team (Late st Contact Info) Description 10/07/2023 [facility] [address] 4th [place] [address] Giuliana Masterson Social History Tobacco Use Types Packs/Day Years Used Date Smoking Tobacco: Former Smokeless Tobacco: Never Alcohol Use Standard Drinks/Week Comments Not Currently 0 (1 standard drink = 0.6 oz pur e alcohol) rare PHQ-2 Answer Date Recorded PHQ-2 Score 0 05/12/2023 [place] Depression Scale Answer Date Recorded [place] Depression Score 1 07/06/2021 Last EPDS Self Harm Result Not on file 07/06 Adolescent Education Answer Date Record ed Getting School Help Needed Not on file 07/10 Comments No Sex and Gender Information Value Date Recorded Sex Assigned at Female 06/03/2022 7:36 AM CDT 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 Gender Identity Female 06/03/2022 7:36 AM CDT Sexual Orientation Straight 06/03/2022 7: 36 AM CDT documented as of this encounter Plan of Treatment Not on file documented as of this encounter Visit Diagnoses Not on filedocumented in this encounter Care Teams Carpenter Railcar Relationship Specialty [place] [address] [facility] [place] [address] PCP - General Family Medicine 03/13/25 Mariana Acosta PA-C [address] [address] Assigned Surgical Provider 09/05/22 12/09/23 Lucas Nuno MD [address] [address] Assigned Surgical Provider 12/10/23 01/07/24 Mariana Acosta PA-C [address] [address] Assigned Surgical Provider 01/08/24 03/08/24 Lucas Nuno MD [address] [address] Assigned Surgical Provider 03/09/24 12/09/24 Mariana Acosta PA-C 420 [facility] [address] [place] [address] Assigned Surgical Provider 12/10/24 02/06/25 Purvi Jeong RPH 909 [place], [place] [phone] Pharmacist Pharmacist Ship Boss 01/03/25 Lucas Nuno MD [address] 788335 Assigned Surgical Provider 02/07/25 Meghan Cox Melody [address]09 [place], [place] [phone] Pharmacist Pharmacist Ship Boss 03/20/25 documented as of this encounter
--- OUTSIDE RECORDS SUMMARY | 2025-05-28 14:21 | XMS_ITS | Encounter Summary ---
Author Organization [place] Address [address] [facility] [place] [address] Care Team Providers Care Supervisor Vendor Quality Name Role Phone Sarah Juares MD Primary Care Provider [phone] Purvi Jeong [facility] Unavailable [phone] Lucas Nuno MD Unavailable [phone] Meghan Cox [facility] Unavailable [phone] Encounter Details Date Type Department Care Team (Late st Contact Info) Description 02/22/2025 [facility] Medical Advice [facility] [address] [address] Nahed Fay Social History Tobacco Use Types Packs/Day Years Used Date Smoking Tobacco: Former Smokeless Tobacco: Never Alcohol Use Standard Drinks/Week Comments Not Currently 0 (1 standard drink = 0.6 oz pur e alcohol) rare PHQ-2 Answer Date Recorded PHQ-2 Score 0 02/22/2025 [place] Depression Scale Answer Date Recorded [place] Depression Score 1 07/06/2021 Last EPDS Self [...] AM CDT 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 Gender Identity Female 06/03/2022 7:36 AM CDT Sexual Orientation Straight 06/03/2022 7 :36 AM CDT documented as of this encounter Plan of Treatment Not on file documented as of this encounter Visit Diagnoses Not on filedocumented in this encounter Care Teams Supervisor Vendor Quality Relationship Specialty [place] [address] [place] [address] PCP - General Family Medicine 03/13/25 Purvi Jeong [facility] [address] [place] [address] [phone] Pharmacist Pharmacist Jackspooler 01/03/25 Lucas Nuno MD [address] [place] [address] [phone] Assigned Surgical Provider 02/07/25 Meghan Cox Melody [address] [place] [address] [phone] Pharmacist Pharmacist Jackspooler 03/20/25 documented as of this encounter
--- OUTSIDE RECORDS SUMMARY | 2025-05-28 14:21 | XMS_ITS | Encounter Summary ---
Author Organization [place] Address [address] [facility] [place] [address] Care Team Providers Care Corporate Operations Compliance Manager Name Role Phone Sarah Juares MD Primary Care Provider [phone] Lucas Nuno MD Unavailable [phone] Mariana Acosta PA-C Unavailable + [phone] Purvi Jeong [facility] Unavailable [phone] Lucas Nuno MD Unavailable [phone] Meghan Cox [facility] Unavailable [phone] Encounter Details Date Type Department Care Team (Late st Contact Info) Description 11/15/[address] [facility] [address] 4th [place] [address] Nelda Mcdaniel Social History Tobacco Use Types Packs/Day Years Used Date Smoking Tobacco: Former Smokeless Tobacco: Never Alcohol Use Standard Drinks/Week Comments Not Currently 0 (1 standard drink = 0.6 oz pur e alcohol) rare PHQ-2 Answer Date Recorded PHQ-2 Score 0 11/15/2024 [place] Depression Scale Answer Date Recorded [place] Depression Score 1 07/06/2021 Last EPDS Self Harm Result Not on file 07/06 Adolescent Education Answer Date Record ed Getting School Help Needed Not on file 07/10 Comments No Sex and Gender Information Value Date Recorded Sex Assigned at Female 06/03/2022 7:36 AM CDT 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 Gender Identity Female 06/03/2022 7:36 AM CDT Sexual Orientation Straight 06/03/2022 7: 36 AM CDT documented as of this encounter Plan of Treatment Not on file documented as of this encounter Visit Diagnoses Not on filedocumented in this encounter Care Teams Corporate Operations Compliance Manager Relationship Specialty [place] [address] [place] [address] PCP - General Family Medicine 03/13/25 Lucas Nuno MD [address] [address] Assigned Surgical Provider 03/09/24 12/09/24 Mariana Acosta PA-C [address] [phone] Assigned Surgical Provider 12/10/24 02/06/25 Purvi Jeong [facility] [address] [place] [address] Pharmacist Pharmacist Form Layer 01/03/25 Lucas Nuno MD [address] [address] Assigned Surgical Provider 02/07/25 Meghan Cox [facility] 9[address] [place] [address] Pharmacist Pharmacist Form Layer 03/20/25 documented as of this encounter
--- OUTSIDE RECORDS SUMMARY | 2025-05-28 14:21 | XMS_ITS | Encounter Summary ---
Author Organization [place] Address [address] [facility] [place] [address] Care Team Providers Care Instructor Kindergarten Name Role Phone Mariana Acosta-Noreen Unavailable + [phone] Sarah Juares MD Primary Care Provider [phone] Lucas Nuno MD Unavailable [phone] Mariana AcostaC Unavailable + [phone] Lucas Nuno MD Unavailable [phone] Mariana Acosta-C Unavailable + [phone] Purvi Jeong [facility] Unavailable [phone] Lucas Nuno MD Unavailable [phone] Meghan Cox [facility] Unavailable [phone] Encounter Details Date Type Department Care Team (Late st Contact Info) Description 05/10/2023 [facility] Medical Advice [facility] [address] 4th [place] [address] Paulina Denny, RN Social History Tobacco Use Types Packs/Day Years Used Date Smoking Tobacco: Former Smokeless Tobacco: Never Alcohol Use Standard Drinks/Week Comments Not Currently 0 (1 standard drink = 0.6 oz pur e alcohol) rare PHQ-2 Answer Date Recorded PHQ-2 Score 0 05/12/2023 [place] Depression Scale Answer Date Recorded [place] Depression Score 1 07/06/2021 Last EPDS Self Harm Result Not on file 07/06 Comments No Sex and Gender Information Value Date Recorded Sex Assigned at Female 06/03/2022 7:36 AM CDT 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 Gender Identity Female 06/03/2022 7:36 AM CDT [...] on filedocumented in this encounter Care Teams Instructor Kindergarten Relationship Specialty [place] [address] [facility] [place] [address] PCP - General Family Medicine 03/13/25 Mariana Acosta PA-C [address] [address] Assigned Surgical Provider 09/05/22 12/09/23 Lucas Nuno MD [address] [address] Assigned Surgical Provider 12/10/23 01/07/24 Mariana Acosta PA-C [address] [address] Assigned Surgical Provider 01/08/24 03/08/24 Lucas Nuno MD [address] [address] Assigned Surgical Provider 03/09/24 12/09/24 Mariana Acosta PA-C [address] [address] Assigned Surgical Provider 12/10/24 02/06/25 Purvi Jeong [facility] [address] [place] [address] Pharmacist Pharmacist Garment Cutter 01/03/25 Lucas Nuno MD [address] [place] [address] Assigned Surgical Provider 02/07/25 Meghan Cox [facility] 9 [place] [address] Pharmacist Pharmacist Garment Cutter 03/20/25 documented as of this encounter
--- OUTSIDE RECORDS SUMMARY | 2025-05-28 14:21 | XMS_ITS | Encounter Summary ---
Author Organization [place] Address [facility] [place] [address] Care Team Providers Care Mailing Jogger Name Role Phone [facility] Primary Care Provider Mariana Acosta PA-C Unavailable + [phone] Sarah Juares MD Primary Care Provider [phone] Lucas Nuno MD Unavailable [phone] Mariana Acosta PA-C Unavailable +[phone] Lucas Nuno MD Unavailable [phone] Mariana Acosta PA-C Unavailable [phone] Purvi Jeong [facility] Unavailable [phone] Lucas Nuno MD Unavailable [phone] Meghan Cox [facility] Unavailable [phone] Encounter Details Date Type Department Care Team (Late st Contact Info) Description 02/17/2023 [facility] [address] 4th [place] [address] Paulina Denny RN Social History Tobacco Use Types Packs/Day Years Used Date Smoking Tobacco: Former Smokeless Tobacco: Never Alcohol Use Standard Drinks/Week Comments Not Currently 0 (1 standard drink = 0.6 oz pur e alcohol) rare [place] Depression Scale Answer Date Recorded [place] Depression Score 1 07/06/2021 Last EPDS Self Harm Result Not on file 07/06 Comments No Sex and Gender Information Value Date Recorded Sex Assigned at Female 06/03/2022 7:36 AM CDT 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 Gender Identity Female 06/03/2022 7:36 AM CDT [...] documented as of this encounter Care Teams Mailing Jogger Relationship Specialty Start Date End Date [facility], [facility] [address] [place] [address] PCP - General 01/02/14 03/23/23 [place] [address] [place] [address] PCP - General Family Medicine 03/13/25 Mariana Acosta PA-C [address] [place] [address] [phone] Assigned Surgical Provider 09/05/22 12/09/23 Lucas Nuno MD [address] [address] Assigned Surgical Provider 12/10/23 01/07/24 Mariana Acosta PA-C [address] [place] [address] [phone] Assigned Surgical Provider 01/08/24 03/08/24 Lucas Nuno MD [address] [place] [address] Assigned Surgical Provider 03/09/24 12/09/24 Mariana Acosta PA-C [address] [place] [address] Assigned Surgical Provider 12/10/24 02/06/25 Purvi Jeong [facility] [address] [place] [address] Pharmacist Pharmacist Reducing System Operator 01/03/25 Lucas Nuno MD [address] [place] [address] Assigned Surgical Provider 02/07/25 Meghan Cox [facility] 9[address] [place] [address] Pharmacist Pharmacist Reducing System Operator 03/20/25 documented as of this encounter
--- OUTSIDE RECORDS SUMMARY | 2025-05-28 14:22 | XMS_ITS | Encounter Summary ---
Author Organization [place] Address [facility] [place] [address] Care Team Providers Care Track Greaser Name Role Phone [facility], [facility] Primary Care Provider Leatha Wagner APRN [facility] Unavailable [phone] Mariana Acosta-C Unavailable + [phone] Sarah Juares MD Primary Care Provider [phone] Lucas Nuno MD Unavailable [phone] Mariana AcostaC Unavailable +[phone] Lucas Nuno MD Unavailable [phone] Mariana AcostaC Unavailable +[phone] Purvi Jeong [facility] Unavailable [phone] Lucas Nuno MD Unavailable [phone] Meghan Cox [facility] Unavailable [phone] Encounter Details Date Type Department Care Team (Late st Contact Info) Description 07/10/2022 [facility] [place] [address] [facility] 4th [place] [address] Lucas Nuno MD [address] [place] [address] [address] [place] [address] Social History Tobacco Use Types Packs/Day Years Used Date Smoking Tobacco: Former Smokeless Tobacco: Never Alcohol Use Standard Drinks/Week Comments Not Currently 0 (1 standard drink = 0.6 oz pur e alcohol) rare [place] Depression Scale Answer Date Recorded [place] Depression Score 1 07/06/2021 Last EPDS Self Harm Result Not on file 07/06 Comments No Sex and Gender Information Value Date Recorded Sex Assigned at Female 06/03/2022 7:36 AM CDT 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 Gender Identity Female 06/03/2022 7:36 AM [...] documented as of this encounter Care Teams Track Greaser Relationship Specialty Start Date End Date [facility], [facility] [address] [place] [address] PCP - General 01/02/14 03/23/23 [place] [address] [place] [address] PCP - General Family Medicine 03/13/25 Leatha Wagner APRN DOT NET DEVELOPER [address] [place] [address] Assigned Surgical Provider 11/02/21 09/04/22 Mariana Acosta PA-C [address] [address] Assigned Surgical Provider 09/05/22 12/09/23 Lucas Nuno MD [address] [address] Assigned Surgical Provider 12/10/23 01/07/24 Mariana Acosta PA-C [address] [address] Assigned Surgical Provider 01/08/24 03/08/24 Lucas Nuno MD [address] [address] Assigned Surgical Provider 03/09/24 12/09/24 Mariana Acosta PA-C [address] [address] Assigned Surgical Provider 12/10/24 02/06/25 Purvi Jeong [facility] [address] [place] [address] Pharmacist Pharmacist Hospital Attendant 01/03/25 Lucas Nuno MD [address] [address] Assigned Surgical Provider 02/07/25 Meghan Cox [facility] [address] [place] [address] [phone] Pharmacist Pharmacist Hospital Attendant 03/20/25 documented as of this encounter
--- OUTSIDE RECORDS SUMMARY | 2025-05-28 14:22 | XMS_ITS | Clinical Summary ---
Author Organization [employer] [facility] Address [address] [place] [address] Care Team Providers Care Equal Opportunity Specialist Name Role Phone Provider, No Primary [...] on file Legal Sex Female 8:59 PM BOAT DETAILER Gender Identity Not on file Sexual Orientation Not on file Last Filed Vital Signs Vital Sign Reading Time Taken Comments Blood Pressure 123/87 11/14/2023 9:14 AM BOAT DETAILER Pulse 90 11/14/2023 9:14 AM BOAT DETAILER Temperature 36.9 C (98.5 F) 11/14/2023 9:14 AM BOAT DETAILER Respiratory Rate - - Oxygen Saturation 98% 11/14/2023 9:14 AM BOAT DETAILER Inhaled Oxygen Concentration - - Weight 122.9 [...] 08/08/2010 08/12/2010 7:4 4 AM CDT Narrative [facility] - 08/06/2011 1:34 AM CDT RUN DATE: 08/06/11 [facility] LABORATORY PAGE 1 RUN TIME: [address] [place] [id number] RUN USER: [employer] CYTOLOGY REPORT ----- ------- PATIENT: KALEB ALEMAN LOC: XSBC U #: [id number] : 89 AGE/SX: 15/F ROOM: RE08/08/[address]: Tom MASON,Angel Kane STATUS: REG REF BED: DIS: ----- ------- SPEC #: [id number] RECD: 08/12/10 STATUS: RONI SAMUELS #: [id number] MELANIE: 08/08/10- SUBM DR: Angel Santos MD ENTERED: 08/12/10 SP TYPE: THINPREP OTHR DR: ORDERED: [id number], THINPREP PAP PAP CLINICAL DATA LMP: 07-21-10 : NO HORMONE THERAPY: NO PREVIOUS SMEAR: NO PT. PHONE #: [phone] PT. ADDRESS: [place] [address], [place], [place] CYTOLOGY RESULTS SPECIMEN ADEQUACY: SATISFACTORY FOR EVALUATION. RESULTS: NEGATIVE FOR INTRAEPITHELIAL LESION OR MALIGNANCY. Signed Electronically Signed JAKE TERAN 08/12/10 ----- ------- END OF REPORT Procedure Note 08/08/2011 RUN DATE: 08/06/11 [facility] LABORATORYPAGE 1 RUN TIME: [address] [place] [id number] RUN USER: [employer] CYTOLOGY REPORT ----- ------- PATIENT: KALEB ALEMAN LOC: XSBCU #: [id number] : 89 AGE/SX: 15/F ROOM:RE08/08/[address]: Angel Santos MD STATUS: REG REF BED:DIS: ----- ------- SPEC #: [id number] RECD: 08/12/10 STATUS: MATT #: [id number] MELANIE: 08/08/10- SUBM DR: Pop Santos MD. ENTERED: 08/12/10 SP TYPE: THINPREP OTHR DR: ORDERED: [id number], THINPREP PAP PAP CLINICAL DATA LMP: 07-21-10 : NO HORMONE THERAPY: NO PREVIOUS SMEAR: NO PT. PHONE #: [phone] PT. ADDRESS: [address], [place] CYTOLOGY RESULTS SPECIMEN ADEQUACY: SATISFACTORY FOR EVALUATION. RESULTS: NEGATIVE FOR INTRAEPITHELIAL LESION OR MALIGNANCY. Signed Electronically Signed JAKE TERAN 08/12/10 ----- ------- END OF REPORT us Angel Santos MD [facility] CYT[facility] Final Resul t [address] [address] from Last 3 Months or Most Recently Relevant to Health Maintenance Insurance [facility] Care Teams Equal Opportunity Specialist Relationship Specialty Start Date End Date Provider, No Primary . [place] [address] PCP - General 01/31/16 Additional Source Comments PLEASE NOTE: Replies to this message will not be received.[facility]
--- OUTSIDE RECORDS SUMMARY | 2025-05-28 14:22 | XMS_ITS | Encounter Summary ---
Author Organization [place] Address [address] [facility] [place] [address] Care Team Providers Care Adolescent Counselor Name Role Phone Sarah Juares MD Primary Care Provider [phone] Purvi Jeong [facility] Unavailable [phone] Lucas Nuno MD Unavailable [phone] Meghan Cox [facility] Unavailable [phone] Encounter Details Date Type Department Care Team (Late st Contact Info) Description 03/20/2025 MyC Medical Advice [facility] [address] 4th [place] [address] Anastasia Molina, RN Social History Tobacco Use Types Packs/Day Years Used Date Smoking Tobacco: Former Smokeless Tobacco: Never Alcohol Use Standard Drinks/Week Comments Not Currently 0 (1 standard drink = 0.6 oz pur e alcohol) rare PHQ-2 Answer Date Recorded PHQ-2 Score 0 02/22/2025 [place] Depression Scale Answer Date Recorded [place] Depression Score 1 07/06/2021 Last EPDS Self [...] AM CDT 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 Gender Identity Female 06/03/2022 7:36 AM CDT Sexual Orientation Straight 06/03/2022 7: 36 AM CDT documented as of this encounter Plan of Treatment Not on file documented as of this encounter Visit Diagnoses Not on filedocumented in this encounter Care Teams Adolescent Counselor Relationship Specialty [place] [address] [place] [address] PCP - General Family Medicine 03/13/25 Purvi Jeong RPH [address] [place] [address] Pharmacist Pharmacist Contact Lens Blocker 01/03/25 Lucas Nuno MD [address] [place] [address] Assigned Surgical Provider 02/07/25 Meghan Cox RPH [address] [place] [address] Pharmacist Pharmacist Contact Lens Blocker 03/20/25 documented as of this encounter
--- OUTSIDE RECORDS SUMMARY | 2025-05-28 14:22 | XMS_ITS | Encounter Summary ---
Author Organization [place] Address [address] [place] [address] Care Team Providers Care Coroner Forensic Technician Name Role Phone Sarah Juares MD Primary Care Provider [phone] Purvi Jeong [facility] Unavailable [phone] Lucas Nuno MD Unavailable [phone] Meghan Cox [facility] Unavailable [phone] Encounter Details Date Type Department Care Team (Late st Contact Info) Description 05/06/[address] [facility] [place] [address] [facility] [address] 4th [place] [address] Mariana Acosta, ANABELLEC [address] [facility] [address] [place] [address] Social History Tobacco Use Types Packs/Day Years Used Date Smoking Tobacco: Former Smokeless Tobacco: Never Alcohol Use Standard Drinks/Week Comments Not Currently 0 (1 standard drink = 0.6 oz pur e alcohol) rare PHQ-2 Answer Date Recorded PHQ-2 Score 0 02/22/2025 [place] Depression Scale Answer Date Recorded [place] Depression Score 1 07/06/2021 Last EPDS Self [...] in an abandoned building, in an overnight prison, or couch-surfing.) Yes 03/21/2025 Are you worried [...] AM CDT 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 Gender Identity Female 06/03/2022 7:36 AM CDT Sexual Orientation Straight 06/03/2022 7: 36 AM CDT documented as of this encounter Plan of Treatment Not on file documented as of this encounter Visit Diagnoses Not on filedocumented in this encounter Care Teams Coroner Forensic Technician Relationship Specialty Start [place] [address] [place] [address] PCP - General Family Medicine 5/27/25 Purvi Jeong RPH [address] [place] [address] [phone] Pharmacist Pharmacist Budget Report Clerk 01/03/25 Lucas Nuno MD [address] [place] [address] [phone] Assigned Surgical Provider 02/07/25 Meghan Cox RPH [address] [place] [address] [phone] Pharmacist Pharmacist Budget Report Clerk 03/20/25 documented as of this encounter
--- OUTSIDE RECORDS SUMMARY | 2025-05-28 14:22 | XMS_ITS | Encounter Summary ---
Author Organization [place] Address [address] [facility] [place] [address] Care Team Providers Care Edge Drummer Name Role Phone Sarah Juares MD Primary Care Provider [phone] Purvi Jeong [facility] Unavailable [phone] Lucas Nuno MD Unavailable +[phone] Meghan Cox [facility] Unavailable [phone] Encounter Details Date Type Department Care Team (Late st Contact Info) Description 03/23/2025 MyC Medical Advice [facility] [place] [address] 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 Gender Identity Female 06/03/2022 7:36 AM CDT Sexual Orientation Straight 06/03/2022 7: 36 AM CDT documented as of this encounter Plan of Treatment Not on file documented as of this encounter Visit Diagnoses Not on filedocumented in this encounter Care Teams Edge Drummer Relationship Specialty [place] [address] [place] [address] PCP - General Family Medicine 03/13/25 Purvi Jeong RPH [address] [place] [address] [phone] Pharmacist Pharmacist Digital Account Director 01/03/25 Lucas Nuno MD [address] [place] [address] [phone] Assigned Surgical Provider 02/07/25 Meghan Cox RPH [address] [place] [address] [phone] Pharmacist Pharmacist Digital Account Director 03/20/25 documented as of this encounter
--- OUTSIDE RECORDS SUMMARY | 2025-05-28 14:22 | XMS_ITS | Encounter Summary ---
Author Organization [place] Address [facility] [place] [address] Care Team Providers Care Bag Grader Name Role Phone [facility] Primary Care Provider Leatha Wagner APRN [facility] Unavailable [phone] Mariana Acosta-C Unavailable + [phone] Sarah Juares MD Primary Care Provider [phone] Lucas Nuno MD Unavailable +- [phone] Mariana AcostaC Unavailable +[phone] Lucas Nuno MD Unavailable +- 88 Mariana AcostaC Unavailable +[phone] Purvi Jeong [facility] Unavailable [phone] Lucas Nuno MD Unavailable +- [phone] Meghan Cox [facility] Unavailable [phone] Encounter Details Date Type Department Care Team (Late st Contact Info) Description 08/24/2022 [facility] [address] 4th [place] [address] Rita Gillespie, EMT Social History Tobacco Use Types Packs/Day Years Used Date Smoking Tobacco: Former Smokeless Tobacco: Never Alcohol Use Standard Drinks/Week Comments Not Currently 0 (1 standard drink = 0.6 oz pur e alcohol) rare [place] Depression Scale Answer Date Recorded [place] Depression Score 1 07/06/2021 Last EPDS Self Harm Result Not on file 07/06 Comments No Sex and Gender Information Value Date Recorded Sex Assigned at Female 06/03/2022 7:36 AM CDT 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 Gender Identity Female 06/03/2022 7:36 AM CDT [...] documented as of this encounter Care Teams Bag Grader Relationship Specialty Start Date End Date [facility] [address] [facility] [address] PCP - General 01/02/14 03/23/23 [place] [address] [facility] [place] [address] PCP - General Family Medicine 03/13/25 Leatha Wagner APRN [employer] [address] [place] [address]47 Assigned Surgical Provider 11/02/21 09/04/22 Mariana Acosta PA-C [address] [place] [address] 56904 Assigned Surgical Provider 09/05/22 12/09/23 Lucas Nuno MD [address] [address] Assigned Surgical Provider 12/10/23 01/07/24 Mariana Acosta PA-C [address] [address] Assigned Surgical Provider 01/08/24 03/08/24 Lucas Nuno MD [address] [address] Assigned Surgical Provider 03/09/24 12/09/24 Mariana Acosta PA-C [address] [address] Assigned Surgical Provider 12/10/24 02/06/25 Purvi Jeong [facility] [address] [place] [address] [phone] Pharmacist Pharmacist Hopper Feeder 01/03/25 Lucas Nuno MD [address] [address] Assigned Surgical Provider 02/07/25 Meghan Cox [facility] [address] [place] [address] Pharmacist Pharmacist Hopper Feeder 03/20/25 documented as of this encounter
--- OUTSIDE RECORDS SUMMARY | 2025-05-28 14:22 | XMS_ITS | Encounter Summary ---
Author Organization [place] Address [address] [facility] [place] [address] Care Team Providers Care Personal Banker Name Role Phone Mariana Acosta-Noreen Unavailable + [phone] Sarah Juares MD Primary Care Provider [phone] Lucas Nuno MD Unavailable [phone] Mariana AcostaC Unavailable + [phone] Lucas Nuno MD Unavailable [phone] Mariana Acosta-C Unavailable + [phone] Purvi Jeong [facility] Unavailable [phone] Lucas Nuno MD Unavailable [phone] Meghan Cox [facility] Unavailable Encounter Details Date Type Department Care Team (Late st Contact Info) Description 05/12/2023 MyC Medical Advice PHARMACY [address] [place] [address] Christiano Hull Social History Tobacco Use Types Packs/Day Years Used Date Smoking Tobacco: Former Smokeless Tobacco: Never Alcohol Use Standard Drinks/Week Comments Not Currently 0 (1 standard drink = 0.6 oz pur e alcohol) rare PHQ-2 Answer Date Recorded PHQ-2 Score 0 05/12/2023 [place] Depression Scale Answer Date Recorded [place] Depression Score 1 07/06/2021 Last EPDS Self Harm Result Not on file 07/06 Comments No Sex and Gender Information Value Date Recorded Sex Assigned at Female 06/03/2022 7:36 AM CDT 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 Gender Identity Female 06/03/2022 7:36 [...] on filedocumented in this encounter Care Teams Personal Banker Relationship Specialty [place] [address] [facility] [place] [address] PCP - General Family Medicine 03/13/25 Mariana Acosta PA-C [address] [phone] Assigned Surgical Provider 09/05/22 12/09/23 Lucas Nuno MD [address] [address] Assigned Surgical Provider 12/10/23 01/07/24 Mariana Acosta PA-C [address] [address] Assigned Surgical Provider 01/08/24 03/08/24 Lucas Nuno MD [address] [address] Assigned Surgical Provider 03/09/24 12/09/24 Mariana Acosta PA-C [address] [place] [address] Assigned Surgical Provider 12/10/24 02/06/25 Purvi Jeong [facility] [address] [place] [address] Pharmacist Pharmacist Loan Representative 01/03/25 Lucas Nuno MD [address] [place] [address] Assigned Surgical Provider 02/07/25 Meghan Cox Melody [address] [place] [phone] Pharmacist Pharmacist Loan Representative 03/20/25 documented as of this encounter
--- OUTSIDE RECORDS SUMMARY | 2025-05-28 14:22 | XMS_ITS | Encounter Summary ---
Author Organization [place] Address [facility] [place] [address] Care Team Providers Care Telephone Clerk Telegraph Office Name Role Phone [facility], [facility] Primary Care Provider Leatha Wagner APRN [facility] Unavailable [phone] Mariana Acosta-C Unavailable + [phone] Sarah Juares MD Primary Care Provider [phone] Lucas Nuno MD Unavailable +- [phone] Mariana AcostaC Unavailable +[phone] Lucas Nuno MD Unavailable +- 02 Mariana AcostaC Unavailable +[phone] Purvi Jeong [facility] Unavailable [phone] Lucas Nuno MD Unavailable +- 02-06 Meghan Cox [facility] Unavailable [phone] Encounter Details Date Type Department Care Team (Late st Contact Info) Description 06/11/2022 Bree Damon M [facility] [address] 4th [place] [address] Keena Valente Social History Tobacco Use Types Packs/Day Years Used Date Smoking Tobacco: Former Smokeless Tobacco: Never Alcohol Use Standard Drinks/Week Comments Not Currently 0 (1 standard drink = 0.6 oz pur e alcohol) rare [place] Depression Scale Answer Date Recorded [place] Depression Score 1 07/06/2021 Last EPDS Self Harm Result Not on file 07/06 Comments No Sex and Gender Information Value Date Recorded Sex Assigned at Female 06/03/2022 7:36 AM CDT 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 Gender Identity Female 06/03/2022 7:36 AM [...] as of this encounter Care Teams Telephone Clerk Telegraph Office Relationship Specialty Start Date End Date [facility], [facility] [address] [place] [address] PCP - General 01/02/14 03/23/23 [place] [address] [place] [address] PCP - General Family Medicine 03/13/25 Leatha Wagner APRN STOCKROOM COORDINATOR [address] [place] [address] Assigned Surgical Provider 11/02/21 09/04/22 Mariana Acosta PA-C [address] [place] [address] Assigned Surgical Provider 09/05/22 12/09/23 Lucas Nuno MD [address] [address] Assigned Surgical Provider 12/10/23 01/07/24 Mariana Acosta PA-C [address] [address] Assigned Surgical Provider 01/08/24 03/08/24 Lucas Nuno MD [address] [address] Assigned Surgical Provider 03/09/24 12/09/24 Mariana Acosta PA-C [address] [address] Assigned Surgical Provider 12/10/24 02/06/25 Purvi Jeong [facility] [address] [place] [address] Pharmacist Pharmacist Electrical Engineering Draftsperson 01/03/25 Lucas Nuno MD [address] [address] Assigned Surgical Provider 02/07/25 Meghan Cox [facility] [address] [place] [address] Pharmacist Pharmacist Electrical Engineering Draftsperson 03/20/25 documented as of this encounter
--- OUTSIDE RECORDS SUMMARY | 2025-05-28 14:22 | XMS_ITS | Encounter Summary ---
Author Organization [place] Address [facility] [place] [address] Care Team Providers Care Command Post Craftsman Name Role Phone [facility] Primary Care Provider Leatha Wagner APRN [facility] Unavailable +[phone] Mariana AcostaC Unavailable + [phone] Sarah Juares MD Primary Care Provider [phone] Lucas Nuno MD Unavailable +-[phone] Mariana Acosta PA-C Unavailable +[phone] Lucas Nuno MD Unavailable +- 25 Mariana Acosta PA-C Unavailable +[phone] Purvi Jeong [facility] Unavailable [phone] Lucas Nuno MD Unavailable +- Meghan Cox [facility] Unavailable [phone] Encounter Details Date Type Department Care Team (Late st Contact Info) Description 08/27/2022 [facility] [address] 4th [place] [address] Mariana Acosta PA-C 420 [facility] [address] [place] [address] Social History Tobacco Use Types Packs/Day Years Used Date Smoking Tobacco: Former Smokeless Tobacco: Never Alcohol Use Standard Drinks/Week Comments Not Currently 0 (1 standard drink = 0.6 oz pur e alcohol) rare [place] Depression Scale Answer Date Recorded [place] Depression Score 1 07/06/2021 Last EPDS Self Harm Result Not on file 07/06 Comments No Sex and Gender Information Value Date Recorded Sex Assigned at Female 06/03/2022 7:36 AM CDT 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 [address] [place] [address] PCP - General 01/02/14 03/23/23 [place] [address] [place] [address] PCP - General Family Medicine 03/13/25 Leatha Wagner APRN POCKET AND PULLEY MACHINE OPERATOR [address] [place] [address] [phone] Assigned Surgical Provider 11/02/21 09/04/22 Mariana Acosta PA-C 420 [facility] 195 [place], [place] 743465 Assigned Surgical Provider 09/05/22 12/09/23 Lucas Nuno MD [address] [place] [address] Assigned Surgical Provider 12/10/23 01/07/24 Mariana Acosta PA-C [address] [place] [address] Assigned Surgical Provider 01/08/24 03/08/24 Lucas Nuno MD [address] [place] [address] Assigned Surgical Provider 03/09/24 12/09/24 Mariaan Acosta PA-C [address] [place] [address] 8[address]93 Assigned Surgical Provider 12/10/24 02/06/25 Purvi Jeong [facility] [address] [place] [address] [phone] Pharmacist Pharmacist Hospital Security Officer 01/03/25 Lucas Nuno MD [address] [place] [address] Assigned Surgical Provider 02/07/25 Meghan Cox [facility] [address] [place] [phone] Pharmacist Pharmacist Hospital Security Officer 03/20/25 documented as of this encounter
--- OUTSIDE RECORDS SUMMARY | 2025-05-28 14:22 | XMS_ITS | Encounter Summary ---
Author Organization [place] Address [facility] [place] [address] Care Team Providers Care Fiberglass Tube Molder Name Role Phone [facility], [facility] Primary Care Provider Leatha Wagner APRN [facility] Unavailable +[phone] Mariana Acosta-C Unavailable + [phone] Sarah Juares MD Primary Care Provider [phone] Lucas Nuno MD Unavailable +- [phone] Mariana AcostaC Unavailable +[phone] Lucas Nuno MD Unavailable +- 19 Mariana AcostaC Unavailable +[phone] Purvi Jeong [facility] Unavailable [phone] Lucas Nuno MD Unavailable +- [phone] Meghan Cox [facility] Unavailable [phone] Encounter Details Date Type Department Care Team (Late st Contact Info) Description 09/02/2022 [facility] [address] 4th [place] [address] Giuliana Masterson Social History Tobacco Use Types Packs/Day Years Used Date Smoking Tobacco: Former Smokeless Tobacco: Never Alcohol Use Standard Drinks/Week Comments Not Currently 0 (1 standard drink = 0.6 oz pur e alcohol) rare [place] Depression Scale Answer Date Recorded [place] Depression Score 1 07/06/2021 Last EPDS Self Harm Result Not on file 07/06 Comments No Sex and Gender Information Value Date Recorded Sex Assigned at Female 06/03/2022 7:36 AM CDT 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 RELEASE COORDINATOR Gender Identity Female 06/03/2022 7:36 AM [...] documented as of this encounter Care Teams Fiberglass Tube Molder Relationship Specialty Start Date End Date [facility], [facility] [address] [facility] [address] PCP - General 01/02/14 03/23/23 [place] [address] [facility] [address] PCP - General Family Medicine 03/13/25 Leatha Wagner APRN CASINO OPERATIONS SUPERVISOR [address] [place] [address] Assigned Surgical Provider 11/02/21 09/04/22 Mariana Acosta PA-C [address] [place] [address] Assigned Surgical Provider 09/05/22 12/09/23 Lucas Nuno MD [address] [address] Assigned Surgical Provider 12/10/23 01/07/24 Mariana Acosta PA-C [address] [address] Assigned Surgical Provider 01/08/24 03/08/24 Lucas Nuno MD [address] [address] Assigned Surgical Provider 03/09/24 12/09/24 Mariana Acosta PA-C [address] [address] Assigned Surgical Provider 12/10/24 02/06/25 Purvi Jeong [facility] [address] [place] [address] [phone] Pharmacist Pharmacist Moulder Operator 01/03/25 Lucas Nuno MD [address] [place] [address]40 Assigned Surgical Provider 02/07/25 Meghan Cox [facility] [address] [place] [address] Pharmacist Pharmacist Moulder Operator 03/20/25 documented as of this encounter
--- OUTSIDE RECORDS SUMMARY | 2025-05-28 14:22 | XMS_ITS | Encounter Summary ---
Author Organization [place] Address [address] [facility] [place] [address] Care Team Providers Care Bank Manager Name Role Phone Sarah Juares MD Primary Care Provider [phone] Purvi Jeong [facility] Unavailable [phone] Lucas Nuno MD Unavailable +[phone] Meghan Cox [facility] Unavailable [phone] Encounter Details Date Type Department Care Team (Late st Contact Info) Description 03/29/2025 MyC Medical Advice [facility] [place] [address] [facility] [address] 4th [place] [address] Lucas Nuno MD 420 [facility] 195 [place] [address] Social History Tobacco Use Types Packs/Day Years Used Date Smoking Tobacco: Former Smokeless Tobacco: Never Alcohol Use Standard Drinks/Week Comments Not Currently 0 (1 standard drink = 0.6 oz pur e alcohol) rare PHQ-2 Answer Date Recorded PHQ-2 Score 0 02/22/2025 [place] Depression Scale Answer Date Recorded [place] Depression Score 1 07/06/2021 Last EPDS Self [...] in an abandoned building, in an overnight longterm, or couch-surfing.) Yes 03/21/2025 Are you worried [...] AM CDT 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 Gender Identity Female 06/03/2022 7:36 AM CDT Sexual Orientation Straight 06/03/2022 7: 36 AM CDT documented as of this encounter Plan of Treatment Not on file documented as of this encounter Visit Diagnoses Not on filedocumented in this encounter Care Teams Bank Manager Relationship Specialty [place] [address] [place] [address] PCP - General Family Medicine 03/13/25 Purvi Jeong RPH [address] [place] [address] [phone] Pharmacist Pharmacist Paper Products Supervisor 01/03/25 Lucas Nuno MD [address] [place] [address] [phone] Assigned Surgical Provider 02/07/25 Meghan Cox RPH [address] [place] [address] [phone] Pharmacist Pharmacist Paper Products Supervisor 03/20/25 documented as of this encounter
--- OUTSIDE RECORDS SUMMARY | 2025-05-28 14:22 | XMS_ITS ---
Author Name Interface, [employer]uk[employer] Address [address] [place] [address] [address] [address] [facility] Address [address] [facility] [address] [address] Allergies and Adverse Reactions Medication/Group Name Reaction [...] 1 HR 07/07/2023 APPOINTMENT CHART CHECK 5 OR N 07/05/2023 APPOINTMENT [facility] FOL LOW UP 20 MIN 07/05/2023 [...] NG/ML 10.0 130.0 5.80 Low [facility], [address] [id number] 0 Phone: () - 07/05 Iron profi le TIBC ug/dL 250.0 425.0 410 [facility], [address] [id number] 0 Phone: () - 07/05 Iron profi le Iron ug/dL 50.0 175.0 43 Low [facility], [address] [id number] 0 Phone: () - 07/05 Iron profi le Unbou nd iron capac ity ug/dL 75.0 410.0 367 [facility], [address] [facility] [address] [phone] 0 Phone: () - 07/05 Iron profi le Iron, % satur ation % 20.0 55.0 10 Low [facility], [address] [facility] [address] [place] [id number] 0 Phone: () - 07/05 CBC w/ auto diff WBC K/uL 3.0 8.9 7.1 FINAL [facility] [place], [address] [place] [phone] 0 Phone: () - 07/05 CBC w/ auto diff HGB g/dL 11.3 15.2 11.5 FINAL [facility] [place], [address] [place] [phone] 0 Phone: () - 07/05 CBC w/ auto diff PLT K/uL 113.0 364.0 302 FINAL [facility] [place], [address] [place] [phone] 0 Phone: () - 07/05 CBC w/ auto diff Fly # (ANC) K/uL 1.6 6.6 4.5 FINAL [facility] [place], [address] [place] [phone] 0 Phone: () - 07/05 CBC w/ auto diff Fly % % 43.0 74.0 62.6 FINAL [facility] [place], [address] [place] [phone] 0 Phone: () - 07/05 CBC w/ auto diff IG % % 0.0 0.5 0.3 FINAL [facility] [place], [address] [place] [phone] 0 Phone: () - 07/05 CBC w/ auto diff IG # K/uL 0.0 0.03 0.02 FINAL [facility] [place], [address] [place] [phone] 0 Phone: () - 07/05 CBC w/ auto diff LY % % 14.0 41.0 29.7 FINAL [facility] [place], [address] [place] [phone] 0 Phone: () - 07/05 CBC w/ auto diff MO % % 6.0 15.0 5.9 Low FINAL [facility] [place], [address] [place] [phone] 0 Phone: () - 07/05 CBC w/ auto diff EO % % 0.0 7.0 1.4 FINAL [facility] [place], [address] [place] [phone] 0 Phone: () - 07/05 CBC w/ auto diff BA % % 0.0 2.0 0.1 FINAL [facility] [place], [address] [place] [phone] 0 Phone: () - 07/05 CBC w/ auto diff LY # K/uL 0.4 3.6 2.1 FINAL [facility] [place], [address] [place] [phone] 0 Phone: () - 07/05 CBC w/ auto diff MO # K/uL 0.2 1.3 0.4 FINAL [facility] [place], [address] [place] [phone] 0 Phone: () - 07/05 CBC w/ auto diff EO # K/uL 0.0 0.6 0.1 FINAL [facility] [place], [address] [place] [phone] 0 Phone: () - 07/05 CBC w/ auto diff BA # K/uL 0.0 0.2 0.0 FINAL [facility] [place], [address] [place] [phone] 0 Phone: () - 07/05 CBC w/ auto diff NRBC % #/100W BC 0.0 0.2 0.0 FINAL [facility] [place], [address] [place] [phone] 0 Phone: () - 07/05 CBC w/ auto diff RBC M/uL 3.9 5.1 3.81 Low FINAL [facility] [place], [address] [place] [phone] 0 Phone: () - 07/05 CBC w/ auto diff HCT % 35.0 48.0 35.8 FINAL [facility] [place], [address] [place] [phone] 0 Phone: () - 07/05 CBC w/ auto diff MCV fL 80.0 104.0 94.0 FINAL [facility] [place], [address] [place] [phone] 0 Phone: () - 07/05 CBC w/ auto diff MCH pg 26.0 35.0 30.2 FINAL [facility] [place], [address] [place] [phone] 0 Phone: () - 07/05 CBC w/ auto diff MCHC g/dL 30.0 35.0 32.1 FINAL [facility] [place], [address] [place] [phone] 0 Phone: () - 07/05 CBC w/ auto diff MPV fL 9.5 13.4 9.1 Low FINAL [facility] [place], [address] [place] [phone] 0 Phone: () - 07/05 CBC w/ auto diff RDW % 11.4 16.1 15.70 FINAL [facility] [place], [address] [place] [phone] 0 Phone: () - 01/19 [facility] other lab See medical massage therapist d 02/17 [facility] other lab See medical massage therapist d 03/14 [facility] other lab See medical massage therapist d 03/27 [facility] other lab See medical massage therapist d 04/02 [facility] other lab See medical massage therapist d 04/06 [facility] other lab See attache patel Medications Date [...]
--- OUTSIDE RECORDS SUMMARY | 2025-05-28 14:22 | XMS_ITS | Referral Summary ---
Author Organization [employer] Address [address] [place] [address] Care Team Providers Care Junior Brand Manager Name Role Phone Provider, No Primary Primary [...] on file Legal Sex Female 8:59 PM BALLAST CLEANING OPERATOR Gender Identity Not on file Sexual Orientation Not on file Last Filed Vital Signs Vital Sign Reading Time Taken Comments Blood Pressure 123/87 11/14/2023 9:14 AM BALLAST CLEANING OPERATOR Pulse 90 11/14/2023 9:14 AM BALLAST CLEANING OPERATOR Temperature 36.9 C (98.5 F) 11/14/2023 9:14 AM BALLAST CLEANING OPERATOR Respiratory Rate - - Oxygen Saturation 98% 11/14/2023 9:14 AM BALLAST CLEANING OPERATOR Inhaled Oxygen Concentration - - Weight 122.9 [...] 08/08/2010 08/12/2010 7:4 4 AM CDT Narrative [facility] - 08/06/2011 1:34 AM CDT RUN DATE: 08/06/11 [facility] PAGE 1 RUN TIME: [address] [place] [address] RUN USER: [employer] CYTOLOGY REPORT ----- ------- PATIENT: KALEB ALEMAN [place] [facility] [place] #: [id number] : 89 AGE/SX: 15/F ROOM: RE08/08/[address]: Angel Santos MD STATUS: REG REF BED: DIS: ----- ------- SPEC #: [id number] RECD: 08/12/10 STATUS: RONI SAMUELS #: [id number] MELANIE: 08/08/10- [facility] DR: Angel Santos MD ENTERED: 08/12/10 SP TYPE: THINPREP OTHR DR: ORDERED: [id number], THINPREP PAP PAP CLINICAL DATA LMP: 07-21-10 : NO HORMONE THERAPY: NO PREVIOUS SMEAR: NO PT. PHONE #: [phone] PT. ADDRESS: [address] CYTOLOGY RESULTS SPECIMEN ADEQUACY: SATISFACTORY FOR EVALUATION. RESULTS: NEGATIVE FOR INTRAEPITHELIAL LESION OR MALIGNANCY. Signed Electronically Signed JAKE TERAN 08/12/10 ----- ------- END OF REPORT Procedure Note 08/08/2011 RUN DATE: 08/06/11 [facility] TIME: [address] [place] [address] RUN USER: [employer] CYTOLOGY REPORT ----- ------- PATIENT: KALEB ALEMAN LOC: [facility] #: [id number] : 89 AGE/SX: 15/F ROOM:RE08/08/[address]: Angel Santos MD STATUS: REG REF BED:DIS: ----- ------- SPEC #: [id number] RECD: 08/12/10 STATUS: [facility] #: [id number] MELANIE: 08/08/10- [facility] DR: Pop Santos MD. ENTERED: 08/12/10 SP TYPE: THINPREP OTHR DR: ORDERED: [id number], THINPREP PAP PAP CLINICAL DATA LMP: 07-21-10 : NO HORMONE THERAPY: NO PREVIOUS SMEAR: NO PT. PHONE #: [phone] PT. ADDRESS: [address] CYTOLOGY RESULTS SPECIMEN ADEQUACY: SATISFACTORY FOR EVALUATION. RESULTS: NEGATIVE FOR INTRAEPITHELIAL LESION OR MALIGNANCY. Signed Electronically Signed JAKE TERAN 08/12/10 ----- ------- END OF REPORT us Angel Santos MD DISTRIBUTION AGENT CYTOLOGY Final Resul t [address] [place] [address] from Last 3 Months or Most Recently Relevant to Health Maintenance Insurance [facility] Care Teams Junior Brand Manager Relationship Specialty Start Date End Date Provider, [place] [address] PCP - General 01/31/16 Additional Source Comments PLEASE NOTE: Replies to this message will not be received.[facility] and [facility]
--- OUTSIDE RECORDS SUMMARY | 2025-05-28 14:22 | XMS_ITS | Encounter Summary ---
Author Organization [place] Address [facility] [place] [address] Care Team Providers Care Assistant Press Operator Name Role Phone [employer], [facility] Primary Care Provider Leatha Wagner APRN [facility] Unavailable [phone] Mariana Acosta-C Unavailable + [phone] Sarah Juares MD Primary Care Provider [phone] Lucas Nuno MD Unavailable [phone] Mariana AcostaC Unavailable [phone] Lucas Nuno MD Unavailable +[phone] Mariana AcostaC Unavailable [phone] Purvi Jeong [facility] Unavailable [phone] Lucas Nuno MD Unavailable [phone] Meghan Cox [facility] Unavailable [phone] Encounter Details Date Type Department Care Team (Late st Contact Info) Description 08/27/2022 [facility] [address] [place] Roberto [address] Xochitl Cooley Social History Tobacco Use Types Packs/Day Years Used Date Smoking Tobacco: Former Smokeless Tobacco: Never Alcohol Use Standard Drinks/Week Comments Not Currently 0 (1 standard drink = 0.6 oz pur e alcohol) rare [place] Depression Scale Answer Date Recorded [place] Depression Score 1 07/06/2021 Last EPDS Self Harm Result Not on file 07/06 Comments No Sex and Gender Information Value Date Recorded Sex Assigned at Female 06/03/2022 7:36 AM CDT 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 [address] [address] [place] [address] PCP - General 01/02/14 03/23/23 [place] [address] [facility] [place] [address] PCP - General Family Medicine 03/13/25 Leatha Wagner APRN [employer] [address] [place] [address] Assigned Surgical Provider 11/02/21 09/04/22 Mariana Acosta PA-C [address] [place] [address] Assigned Surgical Provider 09/05/22 12/09/23 Lucas Nuno MD [address] [address] Assigned Surgical Provider 12/10/23 01/07/24 Mariana Acosta PA-C [address] [address] Assigned Surgical Provider 01/08/24 03/08/24 Lucas Nuno MD [address] [address] Assigned Surgical Provider 03/09/24 12/09/24 Mariana Acosta PA-C [address] [address] Assigned Surgical Provider 12/10/24 02/06/25 Purvi Jeong [facility] [address] [place] [address] Pharmacist Pharmacist Face Worker 01/03/25 Lucas Nuno MD [address] [address] Assigned Surgical Provider 02/07/25 [facility] [address] [place] [address] Pharmacist Pharmacist Face Worker 03/20/25 documented as of this encounter
--- OUTSIDE RECORDS SUMMARY | 2025-05-28 14:22 | XMS_ITS | Encounter Summary ---
Author Organization [place] Address [address] [facility] [place] [address] Care Team Providers Care Political Aide Name Role Phone Sarah Juares MD Primary Care Provider [phone] Purvi Jeong [facility] Unavailable [phone] Lucas Nuno MD Unavailable [phone] Meghan Cox [facility] Unavailable [phone] Encounter Details Date Type Department Care Team (Late st Contact Info) Description 03/28/2025 Results Follow-Up [facility] [place] [address] [facility] [address] 4th [place] [address] Mariana Acosta PA-C [address] [facility] [address] [place] [address] Subj: Message about your results Social History Tobacco Use Types Packs/Day Years Used Date Smoking Tobacco: Former Smokeless Tobacco: Never Alcohol Use Standard Drinks/Week Comments Not Currently 0 (1 standard drink = 0.6 oz pur e alcohol) rare PHQ-2 Answer Date Recorded PHQ-2 Score 0 02/22/2025 [place] Depression Scale Answer Date Recorded [place] Depression Score 1 07/06/2021 Last EPDS Self [...] in an abandoned building, in an overnight alf, or couch-surfing.) Yes 03/21/2025 Are you worried [...] AM CDT 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 [employer] Gender Identity Female 06/03/2022 7:36 AM CDT Sexual Orientation Straight 06/03/2022 7: 36 AM CDT documented as of this encounter Plan of Treatment Not on file documented as of this encounter Visit Diagnoses Not on filedocumented in this encounter Care Teams Political Aide Relationship Specialty [place] [address] [place] [address] PCP - General Family Medicine 03/13/25 Purvi Jeong RPH [address] [place] [address] [phone] Pharmacist Pharmacist Head Of Business Development 01/03/25 Lucas Nuno MD [address] [place] [address] [phone] Assigned Surgical Provider 02/07/25 Meghan Cox RPH [address] [place] [address] [phone] Pharmacist Pharmacist Head Of Business Development 03/20/25 documented as of this encounter
--- OUTSIDE RECORDS SUMMARY | 2025-05-28 14:22 | XMS_ITS | Encounter Summary ---
Author Organization [place] Address [facility] [place] [address] Care Team Providers Care Spin Instructor Name Role Phone [facility], [facility] Primary Care Provider Leatha Wagner APRN [facility] Unavailable [phone] Mariana Acosta-C Unavailable + [phone] Sarah Juares MD Primary Care Provider [phone] Lucas Nuno MD Unavailable +[phone] Mariana AcostaC Unavailable [phone] Lucas Nuno MD Unavailable +[phone] Mariana AcostaC Unavailable [phone] Purvi Jeong [facility] Unavailable [phone] Lucas Nuno MD Unavailable [phone] Meghan Cox [facility] Unavailable [phone] Encounter Details Date Type Department Care Team (Late st Contact Info) Description 06/10/2022 [facility] Medical Advice [facility] [address] 4th [place] [address] Giuliana Masterson Social History Tobacco Use Types Packs/Day Years Used Date Smoking Tobacco: Former Smokeless Tobacco: Never Alcohol Use Standard Drinks/Week Comments Not Currently 0 (1 standard drink = 0.6 oz pur e alcohol) rare [place] Depression Scale Answer Date Recorded [place] Depression Score 1 07/06/2021 Last EPDS Self Harm Result Not on file 07/06 Comments No Sex and Gender Information Value Date Recorded Sex Assigned at Female 06/03/2022 7:36 AM CDT 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 Gender Identity Female 06/03/2022 7:36 AM CDT [...] documented as of this encounter Care Teams Spin Instructor Relationship Specialty Start Date End Date [facility], [facility] [address] [place] [address] PCP - General 01/02/14 03/23/23 [place] [address] [place] [address] PCP - General Family Medicine 03/13/25 Leatha Wagner APRN TEST ANALYST [address] [place] [address] Assigned Surgical Provider 11/02/21 09/04/22 Mariana Acosta PA-C [address] [place] [address] Assigned Surgical Provider 09/05/22 12/09/23 Lucas Nuno MD [address] [address] Assigned Surgical Provider 12/10/23 01/07/24 Mariana Acosta PA-C [address] [address] Assigned Surgical Provider 01/08/24 03/08/24 Lucas Nuno MD [address] [address] Assigned Surgical Provider 03/09/24 12/09/24 Mariana Acosta PA-C [address] [address] Assigned Surgical Provider 12/10/24 02/06/25 Purvi Jeong [facility] [address] [place] [address] Pharmacist Pharmacist Drapery Seamstress 01/03/25 Lucas Nuno MD [address] [address] Assigned Surgical Provider 02/07/25 Meghan Cox [facility] [address] [place] [address] Pharmacist Pharmacist Drapery Seamstress 03/20/25 documented as of this encounter
--- OUTSIDE RECORDS SUMMARY | 2025-05-28 14:22 | XMS_ITS | Encounter Summary ---
Author Organization [place] Address [address] [place] [address] Care Team Providers Care Certified Lactation Educator Name Role Phone Sarah Juares MD Primary Care Provider [phone] Purvi Jeong [facility] Unavailable [phone] Lucas Nuno MD Unavailable [phone] Meghan Cox [facility] Unavailable [phone] Encounter Details Date Type Department Care Team (Late st Contact Info) Description 03/21/2025 [facility] Medical Advice [facility] [address] 4th [place] [address] Anastasia Molina, RN Social History Tobacco Use Types Packs/Day Years Used Date Smoking Tobacco: Former Smokeless Tobacco: Never Alcohol Use Standard Drinks/Week Comments Not Currently 0 (1 standard drink = 0.6 oz pur e alcohol) rare PHQ-2 Answer Date Recorded PHQ-2 Score 0 02/22/2025 [place] Depression Scale Answer Date Recorded [place] Depression Score 1 07/06/2021 Last EPDS Self [...] in an abandoned building, in an overnight skilled nursing, or couch-surfing.) Yes 03/21/2025 Are you worried [...] AM CDT 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 Gender Identity Female 06/03/2022 7:36 AM CDT Sexual Orientation Straight 06/03/2022 7: 36 AM CDT documented as of this encounter Plan of Treatment Not on file documented as of this encounter Visit Diagnoses Not on filedocumented in this encounter Care Teams Certified Lactation Educator Relationship Specialty [place] [address] [place] [address] PCP - General Family Medicine 03/13/25 Purvi Jeong RPH [address] [place] [address] Pharmacist Pharmacist Power Generation Technician 01/03/25 Lucas Nuno MD [address] [place] [address] Assigned Surgical Provider 02/07/25 Meghan Cox RPH [address] [place] [address] Pharmacist Pharmacist Power Generation Technician 03/20/25 documented as of this encounter
[2025-05-28 14:30] VITALS: RESP 12
[2025-05-28 14:38] LABS: Hematocrit 32.0 % (33.0-51.0); Hemoglobin* 11.3 gm/dL (12.0-16.0); Immature Granulocytes Abs Auto 0.01 K/uL (0.00-0.30); Immature Granulocytes Pct Auto 0.2 %; Lymphocytes Absolute Auto 1.59 K/uL (0.90-2.90); Mean Corpuscular HGB Conc 35 gm/dL (32-36); Mean Corpuscular Hemoglobin 37 pg (26-34); Mean Corpuscular Volume 106 fL (80-100); RDW Coefficient of Variation % 18.8 % (11.5-15.5); Red Blood Count 3.03 m/uL (4.00-5.20); White Blood Count* 5.64 K/uL (4.50-11.00)
[2025-05-28 14:45] VITALS: PULSE 85; RESP 24; O2SAT 96
[2025-05-28 14:50] LABS: Albumin* 3.6 g/dL (3.3-5.0); Chloride* 105 mmol/L (96-114); Sodium* 135 mmol/L (135-149)
[2025-05-28 14:51] LABS: Potassium* 3.9 mmol/L (3.6-5.1)
[2025-05-28 14:53] LABS: Alanine Aminotransferase* 19 U/L (4-35); Alkaline Phosphatase* 67 U/L (40-150); Anion Gap 5 mEq/L (7-15); Aspartate Amino Transferase* 30 U/L (12-35); Bilirubin Total* 1.6 mg/dL (0.1-1.5); Blood Urea Nitrogen* 7 mg/dL (5-24); Calcium* 8.8 mg/dL (8.4-10.6); Carbon Dioxide* 25 mmol/L (20-32); Creatinine* 0.6 mg/dL (0.5-1.5); Est. Creatinine Clearance* 141.98; Estimated Glomerular Filt Rate 123 ml/min; Glucose* 94 mg/dL (60-115); Total Protein* 6.5 g/dL (6.0-8.3)
[2025-05-28 14:57] LABS: HCG Qualitative Serum* Negative (Negative); Slide Review Reflex No
== END 2025-05-28 15:44 | disposition home or self-care (01) ==
PROVIDERS: Emergency Provider Emergency Medicine
DX: R07.9 Chest pain, unspecified (principal); F41.9 Anxiety disorder, unspecified
CPT/HCPCS: 36415; 80053; 83690; 84703; 85025; 93005; 94761; 99283; 99284; A9270

== ENCOUNTER 2025-07-30 18:42 | Emergency (ER) | payer BC, SELFPAY ==
--- OUTSIDE RECORDS SUMMARY | 2025-06-28 14:00 | XMS_ITS | Encounter Summary ---
Author Organization [facility] Address [address] [place] [address] Care Team Providers Care Spot Machine Operator Name Role Phone Elsewhere, Pcp Primary Care Provider Unavailabl e Reason for Referral * Outpatient (Routine) - Closed Specialty Diagnoses / Procedures Referred By Contac t Referred To Contact Vascular Medicine Hang Arrington M.D. [address] [place] [address] Phone: tel: fax: [facility] Referral ID Status Reason Start Date Expiration Date Visits Re quested Visits Authorized [id number] Closed 06/28/2025 12/28/2026 1 1 Scheduling Instructions 4:30 p.m. virtual visit * Cardiovascular-Diagnostic (Routine) - Authorized Specialty Diagnoses / Procedures Referred By Contac t Referred To Contact Diagnoses Embolus Pulmonary (HCC) Palpitations Hyperhomocysteinemia (HCC) Anemia B12 Deficiency Anticoagulant Therapy Procedures ECG Heart rhythm monitor (Holter) Hang Arrington M.D. [address] [place] [address] Phone: tel: fax: [facility] Referral ID Status Reason Start Date Expiration Date V isits Requested Visits Authorized [id number] Authorized 06/28/2025 09/28/2026 1 1 Reason for Visit * Outpatient (Routine) - Closed Specialty Diagnoses / Procedures Referred By Sherri mendes Referred To Contact Vascular Medicine Hang Arrington M.D. [address] [place] [address] Phone: tel: fax: [facility] Referral ID Status Reason Start Date Expiration Date Visits Re quested Visits Authorized [id number] Closed 06/27/2025 12/27/2026 1 1 Encounter Details Date Type Department Care Team (Late st Contact Info) Description 06/28/2025 2:00 PM CDT Telemedicine Department of Vascular Medicine in [place], [place] [address] [place] [phone] Hang Arrington M.D. [address] [place] [phone] Embolus Pulmonary (HCC) (Primary Dx); Palpitations; Hyperhomocysteinemia (HCC); Anemia B12 Deficiency; Anticoagulant Therapy Social History Tobacco Use Types Packs/Day Years Used Date Smoking Tobacco: Former Cigarettes 0 05/22/2014 - 10/14/2018 Passive Smoke Exposure: Current Smokeless Tobacco: Never Alcohol Use Standard Drinks/Week Comments Not Currently 3 (1 standard drink = 0.6 oz pure alcohol) Date nights maybe wednesday and wednesday [facility] Utilities Answer Date Recorded In the past 12 months has [facility] [employer], gas, oil, or water [employer] threatened to shut off services in your [...] your living situation today? 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 - 06/28/2025 2:00 PM CDT CHIEF COMPLAINT Ms. El Live presents to clinic for evaluation of the issues below. HISTORY OF PRESENT ILLNESS I have seen Ms. 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 Her last documented VTE episode prior to recently was May of 2024 after which time we had her on Arixtra. In the springtime around March I believe, she was transitioned back to low-molecular weight heparin and endorses that she was taking 120 mg twice daily without any missed doses through the summer. Recently, a couple of weeks ago, she experienced chest pain and palpitations and went to local hospital in [place]. She says evaluation there was negative for pulmonary embolus. However, although those symptoms resolved, in the ensuing days she developed bilateral foot swelling. She re-presented for evaluation and was found not to have DVT but was found to have actual acute pulmonary embolus. Echocardiogram showed no signs of right heart strain. The CT showed no heart strain, and biomarkers did not show any heart strain effects. She was hospitalized and started on IV unfractionated heparin. I was in communication with her local emergency room in the hospitalist team taking care of her. They verified that she had not been missing any doses of low-molecular weight heparin and had no other identifiable major transient risk factors or triggers for recurrent PE. I had discussed with them that in cases like this where we have anticoagulation failure with low-molecular weight heparin that we can, based on expert published opinion, elevate the Lovenox dose by about 20% over typical therapeutic level. They have done this at the time of dismissal. She reports no symptoms of active bleeding or contraindications to continued anticoagulation. She does not have thrombocytopenia on testing from June 25 and has normal renal function as of June 23. She reports that she has been having episodic palpitations, particularly at nighttime. This symptom is not exertional. She is also having intermittent chest pain. She tells me that in the past she has had Holter monitor but never captured any abnormal heart rhythm. She is concerned about her heart rhythm and wonders about repeat outside the office monitoring to see if we can diagnose any significant arrhythmia. MEDICATIONS Current Medications[1] EXAMINATION General: Did not appear in any respiratory distress when I saw her [id number] through video visit ASSESSMENT AND PLAN #1 Embolus Pulmonary (HCC) #2 Palpitations #3 Hyperhomocysteinemia (HCC) #4 Anemia B12 Deficiency #5 Anticoagulant Therapy I would like to get levels for her anti Xa activity in light of the elevated Lovenox dose. She expressed that she would be able to come to get testing a week from tomorrow. At that time we will also have Holter monitor placed to assess heart rhythm. Subsequently we will make decisions about her anticoagulation management and I will provide follow-up regarding her macrocytic anemia and history of folate deficiency and recent B12 deficiency (is on replacement or supplementation for both of these). Hang Arrington M.D. Vascular Medicine Pager: [phone] [1] Current Outpatient Medications Medication Sig Dispense Refill enoxaparin (Lovenox) 150 mg/mL injection Inject 150 mg under the skin 2 (two) times a day. acetaminophen (TylenoL) 500 mg tablet Take 2 tablets (1,000 mg total) by mouth every 6 (six) hours. albuterol (ProAir HFA) 90 mcg/actuation inhaler Inhale 2 puffs every 4 (four) hours as needed. brimonidine 0.33 % gel with pump Apply topically. calcium carbonate 1,250 mg (500 mg calcium) chewable tablet Chew 500 mg 3 (three) times a day as needed for indigestion or heartburn. cyanocobalamin (Vitamin B-12) 1,000 mcg tablet Take 1 tablet by mouth daily. ferrous sulfate 325 mg (65 mg iron) DR tablet Take 325 mg by mouth 3 (three) times a day. folic acid (Folvite) 5 mg/mL injection Inject 0.2 mL (1 mg total) under the skin daily for 2 days. 0.4 mL 0 folic acid 1 mg tablet Take 2 tablets (2 mg total) by mouth daily. 60 tablet 0 ivermectin (Soolantra) 1 % cream cream Apply 1 Application topically daily. Apply to the entire face. 45 g 5 multivitamin tablet Take 1 tablet by mouth daily. pantoprazole (Protonix) 40 mg EC tablet Take 1 tablet by mouth daily. prochlorperazine (Compazine) 5 mg tablet Take 1 tablet (5 mg total) by mouth every 6 (six) hours asneeded for nausea or vomiting. 30 tablet 0 No current facility-administered medications for this visit. documented in this encounter Plan of Treatment Upcoming Encounters Date Type Department Care Team (Late st Contact Info) Description 08/03/2025 2:30 PM CDT Appointment Department of Radiology, [facility] in [place], [place] [address] [place] [address] Hang Arrington M.D. [address] [place] [phone] Discharge Disposition: Home or Self Care 08/03/2025 3:30 PM CDT Appointment Department of Radiology, [facility], in [place], [place] [address] [place] [address] Hang Arrington M.D. [address] [place] [phone] 08/20/2025 10:00 AM [facility] Telemedicine Department of Vascular Medicine in [place], [place] [address] [place] [address] Hang Arrington M.D. [address] [place] [address] Scheduled Referrals Name Type Priority Associated Diagnoses Orde r Schedule Vascular Medicine office visit (clinic) Outpatient Referral Routine Expected: 07/06/2025, Expires: 09/27/2026 documented as of this encounter Results * HOLTER MONITOR - IN CLINIC SOFTWARE TOOLS ENGINEER (07/08/2025 5:15 AM CDT) Min Heart Rate 38 bpm INFOB IONIC MOME Max Heart Rate 159 bpm INFOB IONIC MOME Mean Heart Rate 72 bpm INFOBIONIC MOME VE Total Beats 0 count INFOB IONIC MOME VE Percent Beats less than 1 percent INFOBIONIC MOME SVE Total Beats 81 count INFOBIONIC MOME SVE Percent Beats less than 1 percent INFOBIONIC MOME AF Count 0 count INFOBIONIC MOME AF Duration 0 duration INFOBION IC MOME AF [place] 0 percent INFOBIONIC MOME Symptom Count 13 count INFOBI ONIC MOME 07/06/2025 10:4 7 AM CDT Narrative INFOBIONIC MOME - 07/09/2025 8:53 AM CDT 1. The basic rhythm was sinus with sinus arrhythmia. The total analyzed time was 1d 21h 32m. The heart rate varied from 38 to 159 bpm. The average HR was 72 bpm. 2. No premature ventricular complexes were noted. 3. Premature supraventricular complexes were noted singly, with aberrancy, in one pair, and in bigeminy. There were 81 PACs recorded with a PAC burden of less than 1%. 4. A total of 13 patient triggered events were noted, which included chest pain, palpitations, short of breath and dizziness. The basic rhythm was sinus with sinus arrhythmia. The heart rate varied from 41 to 119 bpm. During or around these events, one PAC was seen singly. Home Health Care Physician: FELTON Ha Procedure Note Alcides Eng M.D., Ph.D. - 07/09/2025 1. The basic rhythm was sinus with sinus arrhythmia. The total analyzedtime was 1d 21h 32m. The heart rate varied from 38 to 159 bpm. The averageHR was 72 bpm. 2. No premature ventricular complexes were noted. 3. Premature supraventricular complexes were noted singly, with aberrancy,in one pair, and in bigeminy. There were 81 PACs recorded with a PACburden of less than 1%. 4. A total of 13 patient triggered events were noted, which includedchest pain, palpitations, short of breath and dizziness. The basicrhythm was sinus with sinus arrhythmia. The heart rate varied from 41 to119 bpm. During or around these events, one PAC was seen singly. Home Health Care Physician: FELTON Ha Hang Arrington M.D. CV CARDIAC SERVICES PROCEDUR ES Final Result Performing Organization Address City/[facility] Co de Phone Number BABAK MCCANN NA * Heparin Anti-Xa Assay (07/06/2025 10:27 AM CDT) Heparin Anti-Xa, P 1.30 IU/mL 2024 11:15 AM CDT DTL Comment: UFH therapeutic range: 0.30-0.70 IU/mL LMWH therapeutic range: 0.50-1.00 IU/mL 0.50-1.00 IU/mL for twice daily dosing 1.00-2.00 IU/mL for once daily dosing (sample obtained 4-6 hours following subcutaneous injection) LMWH prophylactic range:0.10-0.30 IU/mL ----ADDITIONAL INFORMATION---- Heparin Anti-Xa is used to measure heparin concentrations in patients receiving low molecular weight heparin (LMWH) or unfractionated heparin (UFH). Blood (Blood, Venous) 07/06/2025 10:27 AM CDT 07/06/2025 10:48 AM CDT Hang Arrington M.D. LAB BLOOD NON ADD-ON Final R esult Performing Organization Address City/[facility]/ZIP Co de Phone Number [facility] [address] [place] [address], [place] DTL [facility] [address] [place] [address] documented in this encounter Visit Diagnoses Diagnosis Embolus Pulmonary (HCC)- Primary Palpitations Hyperhomocysteinemia (HCC) Anemia B12 Deficiency Anticoagulant Therapy Embolus Pulmonary (HCC) Palpitations Hyperhomocysteinemia (HCC) Anemia B12 Deficiency Anticoagulant Therapy documented in this encounter Care Teams Spot Machine Operator Relationship Specialty Start Date End Date Elsewhere, Pcp PCP - General Internal Medicine 04/12/24 documented as of this encounter
--- OUTSIDE RECORDS SUMMARY | 2025-07-06 08:30 | XMS_ITS | Encounter Summary ---
Author Organization [facility] Address [address] [place] [address] Care Team Providers Care Sign Builder Name Role Phone Elsewhere, Pcp Primary Care Provider Unavailabl e Reason for Referral * MRI/CAT/PET Scan (Routine) - Closed Specialty Diagnoses / Procedures Referred By Contac t Referred To Contact Radiology Diagnoses Embolus Pulmonary (HCC) Procedures CT Chest Angiogram and Pulmonary Arteries with IV Contrast Hang Arrington M.D. [address] [place] [address] Phone: tel: fax: [facility] Referral ID Status Reason Start Date Expiration Date Visits Re quested Visits Authorized [id number] Closed 07/05/2025 10/02/2025 1 1 Reason for Visit * MRI/CAT/PET Scan (Routine) - Closed Specialty Diagnoses / Procedures Referred By Contac t Referred To Contact Radiology Diagnoses Embolus Pulmonary (HCC) Procedures CT Chest Angiogram and Pulmonary Arteries with IV Contrast Hang Arrington M.D. [address] [place] [address] Phone: tel: fax: [facility] Referral ID Status Reason Start Date Expiration Date Visits Re quested Visits Authorized [id number] Closed 07/05/2025 10/02/2025 1 1 Encounter Details Date Type Department Care Team (Latest Contact Info) Description 07/06/2025 8:30 AM CDT - 07/06/2025 9:44 AM CDT Hospital Encounter Department of Radiology, [facility], in [place], [place] [address] [place] [address] Hang Arrington M.D. [address] [place] [address] Embolus Pulmonary (HCC) Discharge Disposition: Home or Self Care Social History Tobacco Use Types Packs/Day Years Used Date Smoking Tobacco: Former Cigarettes 0 05/22/2014 - 10/14/2018 Passive Smoke Exposure: Current Smokeless Tobacco: Never Alcohol Use Standard Drinks/Week Comments Not Currently 3 (1 standard drink = 0.6 oz pure alcohol) Date nights maybe wednesday and wednesday [facility] Utilities Answer Date Recorded In the past 12 months has e [employer], gas, oil, or water [employer] threatened to shut off services in your [...] your living situation today? I have a [facility] place to live 07/03/2024 Comments Unknown Sex and Gender Information Value Date Recorded Sex Assigned at Not on file Legal Sex Female 6:06 PM COMMUNICATIONS SYSTEMS ENGINEER Gender Identity Not on file Sexual Orientation [...] 2:30 PM CDT Appointment Department of Radiology, [facility] in [place], [place] [address] [place] [phone] Hang Arrington M.D. [address] [place] [phone] Discharge Disposition: Home or Self Care 08/03/2025 3:30 PM CDT Appointment Department of Radiology, [facility] in [place], [place] [address] [place] [phone] Hang Arrington M.D. [address] [place] [phone] 08/20/2025 10:00 AM COMMUNICATIONS SYSTEMS ENGINEER Telemedicine Department of Vascular Medicine in [place], [place] [address] [place] [phone] Hang Arrington M.D. [address] [place] [phone] documented as of this encounter Procedures Procedure [...] with Dr. Hang Arrington, pager [phone] or [phone] by Xochitl Amanda APRN at 10:03 am [...] Findings discussed with Dr. Hang Arrington, pager [phone] or [phone] Max Amanda APRN at 10:03 am on 07/06/2025. Hang Arrington M.D. [facility] [place] PROCEDURES Final Resu lt documented in [...] mL documented in this encounter Care Teams Sign Builder Relationship Specialty Start Date End Date Elsewhere, Pcp PCP - General Internal Medicine 04/12/24 documented as of this encounter
--- OUTSIDE RECORDS SUMMARY | 2025-07-06 10:10 | XMS_ITS | Encounter Summary ---
Author Organization [facility] Address [address] [place] [address] Care Team Providers Care Security Sergeant Name Role Phone Elsewhere, Pcp Primary Care Provider Unavailabl e Encounter Details Date Type Department Care Team (Latest Contact Info) Description 07/06/2025 10:10 AM CDT - 07/06/2025 10:39 AM CDT Hospital Encounter Department of Laboratory Medicine and Pathology, [facility] in [place], [place] [address] [place] [address] Hang Arrington M.D. [address] [place] [phone] Embolus Pulmonary (HCC); Palpitations; Hyperhomocysteinemi a (HCC); [...] Recorded In the past 12 months has [facility] [employer], gas, oil, or water company threatened to [...] your living situation today? [facility] 07/03/2024 Comments Unknown Sex and Gender Information Value Date Recorded Sex Assigned at Not on file Legal Sex Female 6:06 PM PIERCING ARTIST Gender Identity Not on file Sexual [...] 2:30 PM CDT Appointment Department of Radiology, [facility], in [place], [place] [address] [place] [address] Hang Arrington M.D. [address] [place] [phone] Discharge Disposition: Home or Self Care 08/03/2025 3:30 PM CDT Appointment Department of Radiology, [facility], in [place], [place] [address] [place] [address] Hang Arrington M.D. [address] [place] [phone] 08/20/2025 10:00 AM [facility] Telemedicine Department of Vascular Medicine in [place], [place] [address] [place] [address] Hang Arrington M.D. [address] [place] [address] documented as of this encounter Procedures Procedure [...] LAB BLOOD NON ADD-ON Final R esult [facility] [address] [place] [address], [place] [facility] [address] [place] [address] documented in this encounter Visit Diagnoses Diagnosis Embolus Pulmonary (HCC) Palpitations Hyperhomocysteinemia (HCC) Anemia B12 Deficiency Anticoagulant Therapy documented in this encounter Care Teams Security Sergeant Relationship Specialty Start Date End Date Elsewhere, Pcp PCP - General Internal Medicine 04/12/24 documented as of this encounter
--- OUTSIDE RECORDS SUMMARY | 2025-07-06 10:40 | XMS_ITS | Encounter Summary ---
Author Organization [facility] Address [address] [place] [address] Care Team Providers Care Bunch Breaker Machine Operator Name Role Phone Elsewhere, Pcp Primary Care Provider Unavailabl e Reason for Referral * Cardiovascular-Diagnostic (Routine) - Authorized Specialty Diagnoses / Procedures Referred By Contac t Referred To Contact Diagnoses Embolus Pulmonary (HCC) Palpitations Hyperhomocysteinemia (HCC) Anemia B12 Deficiency Anticoagulant Therapy Procedures ECG Heart rhythm monitor (Holter) Hang Arrington M.D. 200 [place] [address] Phone: tel: fax: [facility] Referral ID Status Reason Start Date Expiration Date V isits Requested Visits Authorized [id number] Authorized 06/28/2025 09/28/2026 1 1 Reason for Visit * Cardiovascular-Diagnostic (Routine) - Authorized Specialty Diagnoses / Procedures Referred By Contac t Referred To Contact Diagnoses Embolus Pulmonary (HCC) Palpitations Hyperhomocysteinemia (HCC) Anemia B12 Deficiency Anticoagulant Therapy Procedures ECG Heart rhythm monitor (Holter) Hang Arrington M.D. [address] [place] [phone] Phone: tel: fax: [facility] Referral ID Status Reason Start Date Expiration Date V isits Requested Visits Authorized [id number] Authorized 06/28/2025 09/28/2026 1 1 Encounter Details Date Type Department Care Team (Latest Contact Info) Description 07/06/2025 10:40 AM CDT - 07/06/2025 11:59 PM CDT Hospital Encounter Department of Cardiovascular Diseases in [place], [place] [address] [place] [address] Hang Arrington M.D. 200 [place] [address] Embolus Pulmonary (HCC); Palpitations; Hyperhomocysteinemi a (HCC); [...] alcohol) Date nights maybe wednesday and wednesday [facility] Utilities Answer Date Recorded In the past 12 months has [facility] [employer], oil, or water [employer] threatened to shut off services in your [...] your living situation today? 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 0.4 mL 07/05/2024 ivermectin (Soolantra) 1 % cream creamIndications :Rosacea [...] 2:30 PM CDT Appointment Department of Radiology, [place], [place] [address] [place] [phone] Hang Arrington M.D. [address] [place] [phone] Discharge Disposition: Home or Self Care 08/03/2025 3:30 PM CDT Appointment Department of Radiology, [place], [place] [address] [place] [phone] Hang Arrington M.D. [address] [place] [phone] 08/20/2025 10:00 AM [employer] Telemedicine Department of Vascular Medicine in [place], [place] [address] [place] [phone] Hang Arrington M.D. [address] [place] [phone] documented as of this encounter Procedures Procedure Name Priority Date/Time Associated Diagnosis Comments HOLTER MONITOR - IN CLINIC TUBE MAKER Routine 07/08/2025 5:15 AM CDT Embolus Pulmonary (HCC) Palpitations Hyperhomocysteinemi a (HCC) Anemia B12 Deficiency Anticoagulant Therapy documented in this encounter Results * HOLTER MONITOR - IN CLINIC TUBE MAKER (07/08/2025 5:15 AM CDT) Min Heart Rate [...] Duration 0 duration INFOBION IC MOME AF [place] 0 percent INFOBIONIC MOME Symptom Count 13 [...] these events, one PAC was seen singly. Infrastructure Architect: FELTON Ha Procedure Note Alcides Eng M.D., [...] these events, one PAC was seen singly. Infrastructure Architect: FELTON Ha Hang Arrington M.D. CV CARDIAC SERVICES PROCEDUR ES Final Result INFOBIONIC SIOBHAN NA documented in this encounter Visit Diagnoses Diagnosis Embolus Pulmonary (HCC) Palpitations Hyperhomocysteinemia (HCC) Anemia B12 Deficiency Anticoagulant Therapy documented in this encounter Care Teams Bunch Breaker Machine Operator Relationship Specialty Start Date End Date Elsewhere, Pcp PCP - General Internal Medicine 04/12/24 documented as of this encounter
--- OUTSIDE RECORDS SUMMARY | 2025-07-06 16:30 | XMS_ITS | Encounter Summary ---
Author Organization [facility] Address [address] [place] [address] Care Team Providers Care Nurses Medical Assistants Phlebotomists Name Role Phone Elsewhere, Pcp Primary Care Provider Unavailabl e Reason for Referral * Outpatient (Routine) - Authorized Specialty Diagnoses / Procedures Referred By Contac t Referred To Contact Diagnoses Embolus Pulmonary (HCC) Anticoagulant Therapy Procedures US Upper Extremity Veins Bilateral Hang Arrington M.D. 200 [place] [address] Phone: tel: fax: [facility] Referral ID Status Reason Start Date Expiration Date V isits Requested Visits Authorized [id number] Authorized 07/10/2025 10/10/2026 1 1 Reason for Visit * Outpatient (Routine) - Closed Specialty Diagnoses / Procedures Referred By Contac t Referred To Contact Vascular Medicine Hang Arrington M.D. 200 [place] [address] Phone: tel: fax: [facility] Referral ID Status Reason Start Date Expiration Date Visits Re quested Visits Authorized [id number] Closed 06/28/2025 12/28/2026 1 1 Encounter Details Date Type Department Care Team ([facility] st Contact Info) Description 07/06/2025 4:30 PM CDT Virtual Visit Department of Vascular Medicine in [place], [place] [address] [place] [phone] Hang Arrington M.D. [address] [place] [address] Embolus Pulmonary (HCC) (Primary Dx); Anticoagulant Therapy; Deficiency Vitamin B12; Other Folate Deficiency Anemias Social History Tobacco Use Types Packs/Day Years Used Date Smoking Tobacco: Former Cigarettes 0 05/22/2014 - 10/14/2018 Passive Smoke Exposure: Current Smokeless Tobacco: Never Alcohol Use Standard Drinks/Week Comments Not Currently 3 (1 standard drink = 0.6 oz pure alcohol) Date nights maybe wednesday and wednesday [facility] Utilities Answer Date Recorded In the past 12 months has [facility] [email or web address], gas, oil, or water company threatened to [...] your living situation today? 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 - 07/06/2025 4:30 PM CDT CHIEF COMPLAINT Ms. El Live and I are scheduled for telephone visit, non [id number]. HISTORY OF PRESENT ILLNESS I recently discussed [...] lab. Hang Arrington M.D. Vascular Medicine Pager: [phone] [1] Current Outpatient Medications Medication Sig Dispense [...] 2:30 PM CDT Appointment Department of Radiology, [facility] in [place], [place] [address] [place] [address] Hang Arrington M.D. [address] [place] [phone] Discharge Disposition: Home or Self Care 08/03/2025 3:30 PM CDT Appointment Department of Radiology, [facility], in [place], [place] [address] [place] [address] Hang Arrington M.D. [address] [place] [phone] 08/20/2025 10:00 AM DECORATING AND ASSEMBLY SUPERVISOR Telemedicine Department of Vascular Medicine in [place], [place] [address] [place] [address] Hang Arrington M.D. [address] [place] [address] Scheduled Orders Name Type Priority Associated Diagnoses Orde r Schedule US Upper Extremity Veins Bilateral Imaging RAD - Routine (most inpatients and all outpatients) Embolus Pulmonary (HCC) Anticoagulant Therapy Expected: 07/13/2025 (Approximate), Expires: 10/09/2026 documented as of this encounter Results * (ABNORMAL) Folate (07/19/2025 9:36 AM CDT) Folate, S 3.6(L) >=4.0 mcg/L 07/19/2025 11:14 AM CDT DTL Comment:Result suggests tina te deficiency Blood (Blood, Venous) 07/19/2025 9:36 AM CDT 07/19/2025 10:00 AM CDT Hang Arrington M.D. LAB BLOOD [place] [address], [facility] 200 [place] [address] * (ABNORMAL) Vitamin B12 Assay (07/19/2025 9:36 AM CDT) Vitamin B12 Assay, S 115(L) 180 - 914 ng/L 07/19/2025 11:33 AM CDT DTL Comment: ----ADDITIONAL INFORMATION---- In patients being evaluated [...] 9:36 AM CDT 07/19/2025 10:00 AM CDT us Hang Arrington M.D. LAB BLOOD ADD-ON Final Resul t Performing Organization Address City/[facility]/ZIP Co de Phone Number [facility] [address] [place] [address], [facility] 200 [place] [address] * Heparin Anti-Xa Assay (07/19/2025 9:36 AM [...] ADD-ON Final R esult Performing Organization Address City/[facility]/ZIP Co de Phone Number [facility] [address] [place] [address], [facility] [address] [place] [address] documented in this encounter Visit Diagnoses Diagnosis Embolus Pulmonary (HCC)- Primary Anticoagulant Therapy Deficiency Vitamin B12 Other Folate Deficiency Anemias documented in this encounter Care Teams Nurses Medical Assistants Phlebotomists Relationship Specialty Start Date End Date Elsewhere, Pcp PCP - General Internal Medicine 04/12/24 documented as of this encounter
--- OUTSIDE RECORDS SUMMARY | 2025-07-19 09:00 | XMS_ITS | Encounter Summary ---
Author Organization [facility] Address [address] [place] [address] Care Team Providers Care Auto Fleet Maintenance Manager Name Role Phone Elsewhere, Pcp Primary Care Provider Unavailabl e Encounter Details Date Type Department Care Team (Latest Contact Info) Description 07/19/2025 9:00 AM CDT - 07/19/2025 11:59 PM CDT Hospital Encounter Department of Laboratory Medicine and Pathology, [facility] in [place], [place] [address] [place] [address] Hang Arrington M.D. [address] [place] [phone] Embolus Pulmonary (HCC); Anticoagulant Therapy; Deficiency Vitamin [...] nights maybe wednesday and wednesday [facility] Utilities Answer Date Recorded In the [...] your living situation today? 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 [address] [place] [phone] Discharge Disposition: Home or Self Care 08/03/2025 3:30 PM CDT Appointment Department of Radiology, [facility], in [place], [place] [address] [place] [address] Hang Arrington M.D. [address] [place] [phone] 08/20/2025 10:00 AM [facility] Telemedicine Department of Vascular Medicine in [place], [place] [address] [place] [address] Hang Arrington M.D. [address] [place] [address] documented as of this encounter Procedures Procedure [...] M.D. LAB BLOOD ADD-ON Final Resul t [facility] 200 [place] [address], [facility] [place] 200 [place] [address] * (ABNORMAL) Vitamin B12 Assay (07/19/2025 9:36 [...] ADD-ON Final Resul t Performing Organization Address City/[facility]/ZIP Co de Phone Number [facility] 200 [place], [place] [address] [place] [address] * Heparin Anti-Xa Assay (07/19/2025 9:36 AM [...] LAB BLOOD NON ADD-ON Final R esult [facility] [address] [place] [address], [address] [address] documented in this encounter Visit Diagnoses Diagnosis Embolus Pulmonary (HCC) Anticoagulant Therapy Deficiency Vitamin B12 Other Folate Deficiency Anemias documented in this encounter Care Teams Auto Fleet Maintenance Manager Relationship Specialty Start Date End Date Elsewhere, Pcp PCP - General Internal Medicine 04/12/24 documented as of this encounter
--- OUTSIDE RECORDS SUMMARY | 2025-07-19 11:00 | XMS_ITS | Encounter Summary ---
Author Organization [facility] Address [address] [place] [address] Care Team Providers Care Senior Quality Methods Specialist Name Role Phone Elsewhere, Pcp Primary Care Provider Unavailabl e Reason for Referral * Outpatient (Routine) - Authorized Specialty Diagnoses / Procedures Referred By Contac t Referred To Contact Vascular Medicine Hang Arrington M.D. 200 [place] [address] Phone: tel: fax: [facility] Referral ID Status Reason Start Date Expiration Date V isits Requested Visits Authorized [id number] Authorized 07/19/2025 01/18/2027 1 1 * Outpatient (Routine) - Authorized Specialty Diagnoses / Procedures Referred By Contac t Referred To Contact Diagnoses Pain Chest Procedures US Lower Extremity Veins Bilateral Hang Arrington M.D. 200 [place] [address] Phone: tel: fax: [facility] Referral ID Status Reason Start Date Expiration Date V isits Requested Visits Authorized [id number] Authorized 07/19/2025 10/19/2026 1 1 * Outpatient (Routine) - Authorized Specialty Diagnoses / Procedures Referred By Contac t Referred To Contact Diagnoses Pain Chest Procedures NM Lung Ventilation and Perfusion Hang Arrington M.D. [address] [place] [phone] Phone: tel: fax: [facility] Referral ID Status Reason Start Date Expiration Date V isits Requested Visits Authorized [id number] Authorized 07/19/2025 10/19/2026 8 8 * Outpatient (Routine) - Closed Specialty Diagnoses / Procedures Referred By Contac t Referred To Contact Diagnoses Pain Chest Procedures ECG [address] EKG 12 LEAD W I&R Hang Arrington M.D. [address] [place] [phone] Phone: tel: fax: [facility] Referral ID Status Reason Start Date Expiration Date Visits Re quested Visits Authorized [id number] Closed 07/19/2025 10/19/2026 1 1 * Outpatient (Routine) - Authorized Specialty Diagnoses / Procedures Referred By Contact Referred To Contact Cardiovascular Diseases / Cardiovascular Disease Diagnoses Pain Chest Hang Arrington M.D. [address] [place] [phone] Phone: tel: fax: [facility] Referral ID Status Reason Start Date Expiration Date V isits Requested Visits Authorized [id number] Authorized 07/19/2025 01/18/2027 1 1 Reason for Visit * Outpatient (Routine) - Closed Specialty Diagnoses / Procedures Referred By Contac t Referred To Contact Vascular Medicine Hang Arrington M.D. [address] [place] [phone] Phone: tel: fax: [facility] Referral ID Status Reason Start Date Expiration Date Visits Re quested Visits Authorized [id number] Closed 07/17/2025 01/16/2027 1 1 Encounter Details Date Type Department Care Team (Late st Contact Info) Description 07/19/2025 11:00 AM CDT Office Visit Department of Vascular Medicine in [place], [place] [address] [place] [address] Hang Arrington M.D. 200 [place] [address] Pain Chest (Primary Dx); Dyspnea On Exertion; [...] Date nights maybe wednesday and wednesday [facility] [employer] Answer Date Recorded In the past 12 months has [facility] [employer], gas, oil, or water [employer] threatened to shut off services in your [...] your living situation today? 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 Hang Arrington M.D. Vascular Medicine Pager: [phone] [1] Current Outpatient Medications Medication Sig Dispense [...] CDT Appointment Department of Radiology, [facility] in [place], [place] [address] [place] [address] Hang Arrington M.D. [address] [place] [phone] Discharge Disposition: Home or Self Care 08/03/2025 3:30 PM CDT Appointment Department of Radiology, [facility], in [place], [place] [address] [place] [address] Hang Arrington M.D. [address] [place] [phone] 08/20/2025 10:00 AM [facility] Telemedicine Department of Vascular Medicine in [place], [place] [address] [place] [address] Hang Arrington M.D. [address] [place] [address] Scheduled Orders Name Type Priority Associated Diagnoses [...] of diffuse hepatic steatosis. Hang Arrington M.D. [facility] PROCEDURES Final Resu lt * ECG 12 Lead (07/20/2025 1:31 PM CDT) Ventricular Rate ECG/Min [address] Interval 146 ms MUSE QRSD Interval 84 ms MUSE QT Interval 452 ms MUSE QTC Interval 463 ms MUSE P [place] 46 degrees MUSE R [place] 63 degrees MUSE T Wave [place] 14 degrees MUSE 07/20/2025 1:31 PM CDT [...] Chest documented in this encounter Care Teams Senior Quality Methods Specialist Relationship Specialty Start Date End Date Elsewhere, Pcp PCP - General Internal Medicine 04/12/24 documented as of this encounter
--- OUTSIDE RECORDS SUMMARY | 2025-07-20 13:47 | XMS_ITS | Encounter Summary ---
Author Organization [facility] Address [address] [place] [address] Care Team Providers Care Spool Winder Name Role Phone Elsewhere, Pcp Primary Care Provider Unavailabl e Reason for Referral * Outpatient (Routine) - Authorized Specialty Diagnoses / Procedures Referred By Contac t Referred To Contact Diagnoses Pain Chest Procedures NM Lung Ventilation and Perfusion Hang Arrington M.D. [address] [place] [phone] Phone: tel: fax: [facility] Referral ID Status Reason Start Date Expiration Date V isits Requested Visits Authorized [id number] Authorized 07/19/2025 10/19/2026 8 8 Reason for Visit * Outpatient (Routine) - Authorized Specialty Diagnoses / Procedures Referred By Contac t Referred To Contact Diagnoses Pain Chest Procedures NM Lung Ventilation and Perfusion Hang Arrington M.D. 200 [place] [address] Phone: tel: fax: [facility] Referral ID Status Reason Start Date Expiration Date V isits Requested Visits Authorized [id number] Authorized 07/19/2025 10/19/2026 8 8 Encounter Details Date Type Department Care Team (Latest Contact Info) Description 07/20/2025 1:47 PM CDT - 07/20/2025 11:59 PM CDT Hospital Encounter Department of Radiology, [facility], in [place], [place] [address] [place] [address] Hang Arrington M.D. 200 [place] [address] Pain Chest Discharge Disposition: Home or Self Care Social History Tobacco Use Types Packs/Day Years Used Date Smoking Tobacco: Former Cigarettes 0 05/22/2014 - 10/14/2018 Passive Smoke Exposure: Current Smokeless Tobacco: Never Alcohol Use Standard Drinks/Week Comments Not Currently 3 (1 standard drink = 0.6 oz pure alcohol) Date nights maybe wednesday and wednesday [facility] Utilities Answer Date Recorded In [...] your living situation today? 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 12/16/2023 documented as of this encounter Plan of Treatment Upcoming Encounters Date Type Department Care Team (Late st Contact Info) Description 08/03/2025 2:30 PM CDT Appointment Department of Radiology, [place], [place] [address] [place] [address] Hang Arrington M.D. 200 [place] [address] Discharge Disposition: Home or Self Care 08/03/2025 3:30 PM CDT Appointment Department of Radiology, [place], [place] [address] [place] [address] Hang Arrington M.D. [address] [place] [address] 08/20/2025 10:00 AM STORAGE CENTER MANAGER Telemedicine Department of Vascular Medicine in [place], [place] [address] [place] [address] Hang Arrington M.D. [address] [place] [address] documented as of this encounter Procedures Procedure Name Priority Date/Time Associated Diagnosis Comments NM LUNG VENTILATION AND PERFUSION RAD - Routine (most inpatients and all outpatients) 07/20/2025 2:32 PM CDT Pain Chest documented in this encounter Results * NM Lung Ventilation [...] of diffuse hepatic steatosis. Hang Arrington M.D. [facility] PROCEDURES Final Resu lt documented in this encounter Visit Diagnoses Diagnosis Pain Chest documented in this encounter Administered Medications Inactive Administered Medications - up to 3 most recent administrations Medication Order MAR Action Action Date Dose Rate Site technetium Tc 99m albumin aggregated injection (Tc-99m MAA) 3.6-8.8 millicurie, intravenous, Once, On Wed07/20/25 at 1445, For 1 dose, Imaging Protocol Orders Given 07/20/2025 2:13 PM CDT 6.45 millicuries Right Antecubital xenon Xe 133 gas (Xe-133 Xenon) 13.5-44 millicurie, inhalation, Once, On Wed07/20/25 at 1445, For 1 dose, Imaging Protocol Orders Given 07/20/2025 1:54 PM CDT 18.6 millicuries documented in this encounter Care Teams Spool Winder Relationship Specialty Start Date End Date Elsewhere, Pcp PCP - General Internal Medicine 04/12/24 documented as of this encounter
--- OUTSIDE RECORDS SUMMARY | 2025-07-30 18:45 | XMS_ITS | Clinical Summary ---
Author Organization [facility] Address [address] [place] [address] Care Team Providers Care Portfolio Administrator Name Role Phone Elsewhere, Pcp Primary Care Provider Unavailabl e Source Comments Patient records contain information from all sites at [facility]. For routine questions regarding patient records, call [phone] during business hours, M-F 8:00 AM - 5:00 PM Central Time. Record requests for emergency care only can be directed to [phone] at any time.[facility] Allergies Active Allergy Reactions Criticality Noted Date Comments Azithromycin Rash,Hives (Reselect Reaction),Swelling Medium 01/31/2016 Nsaids (Non-Steroidal Anti-Inflammatory Drug) Other (see comments) Low 11/25/2016 Patient had bariatric surgery and should not ever have NSAIDs due to high risk for gastric ulcers. Penicillins Rash Low 01/02/2014 PENICILLINS Sulfa (Sulfonamide Antibiotics) Rash 01/31/2016 Not sure of reaction but was in the hospital because of it. Tramadol Rash Medium 05/07/2023 Medications calcium carbonate 1,250 mg (500 mg calcium) chewable tablet Chew 500 mg 3 (three) times a day as needed for indigestion or heartburn. Active cyanocobalamin (Vitamin B-12) 1,000 mcg tablet Take 1 tablet by mouth daily. Active pantoprazole (Protonix) 40 mg EC tablet Take 1 tablet by mouth daily. Active multivitamin tablet Take 1 tablet by mouth daily. Active ferrous sulfate 325 mg (65 mg iron) DR tablet Take 325 mg by mouth 3 (three) times a day. Active acetaminophen (TylenoL) 500 mg tablet Take 2 tablets (1,000 mg total) by mouth every 6 (six) hours. 4 Active folic acid 1 mg tablet Take 2 tablets (2 mg total) by mouth daily. 60 tablet 07/04/2024 8:10 PM CDT 4 Active enoxaparin (Lovenox) 150 mg/mL injection Inject 150 mg under the skin 2 (two) times a day. Active albuterol (ProAir HFA) 90 mcg/actuation inhaler Inhale 2 puffs every 4 (four) hours as needed. 07/20/20 25 Discontin ued(Thera py completed ) brimonidine 0.33 % gel with pump Apply topically. 3 07/20/20 25 Discontin ued(Thera py completed ) ivermectin (Soolantra) 1 % cream creamIndicatio ns:Rosacea Apply 1 Application topically daily. Apply to the entire face. 45 g 5 4 07/20/20 25 Discontin ued(Thera py completed ) folic acid (Folvite) 5 mg/mL injection Inject 0.2 mL (1 mg total) under the skin daily for 2 days. 0.4 mL 4 07/20/20 25 Discontin ued(Thera py completed ) prochlorperazi ne (Compazine) 5 mg tablet Take 1 tablet (5 mg total) by mouth every 6 (six) hours as needed for nausea or vomiting. 30 tablet 07/04/2024 8:10 PM CDT 4 07/20/20 25 Discontin ued(Thera py completed ) Active Problems Problem Noted Date Diagnosed Date Syncope Vasovagal 07/04/2024 Migraine Headache 07/04/2024 Other Pulmonary Embolism Without Acute Cor Pulmo nale 07/03/2024 Folate Deficiency Anemia Unspecified 07/03/2024 Multiple Subsegmental Thromb otic Pulmonary Embolism Without Acute Cor Pulmonale 07/01/2024 Encounters Date Type Department Care Team Description 07/20/2025 1:47 PM CDT - 07/20/2025 11:59 PM CDT Hospital Encounter Department of Radiology, [facility], in [place], [place] [address] [place] [phone] Hang Arrington M.D. Pain Chest Discharge Disposition: Home or Self Care 07/19/2025 11:00 AM CDT Office Visit Department of Vascular Medicine in [place], [place] [address] [place] [address] Hang Arrington M.D. Pain Chest (Primary Dx); Dyspnea On Exertion; Embolus Pulmonary (HCC); Anticoagulant Therapy; Folate Deficiency Anemia Unspecified; Deficiency Vitamin B12 07/19/2025 9:00 AM CDT - 07/19/2025 11:59 PM CDT Hospital Encounter Department of Laboratory Medicine and Pathology, [facility] in [place], [place] [address] [place] [address] Hang Arrington M.D. Embolus Pulmonary (HCC); Anticoagulant Therapy; Deficiency Vitamin B12; Other Folate Deficiency Anemias Discharge Disposition: Home or Self Care 07/19/2025 Clinical Communication Department of Cardiovascular Medicine in [place], [place] [address] [place] [phone] Dust Operator Curtis M.D. 07/17/2025 Orders Only Department of Vascular Medicine in [place], [place] [address] [place] [address] Hang Arrington M.D. 07/06/2025 4:30 PM CDT Virtual Visit Department of Vascular Medicine in [place], [place] [address] [place] [phone] Hang Arrington M.D. Embolus Pulmonary (HCC) (Primary Dx); Anticoagulant Therapy; Deficiency Vitamin B12; Other Folate Deficiency Anemias 07/06/2025 10:40 AM CDT - 07/06/2025 11:59 PM CDT Hospital Encounter Department of Cardiovascular Diseases in [place], [place] [address] [place] [address] Hang Arrington M.D. Embolus Pulmonary (HCC); Palpitations; Hyperhomocysteinem ia (HCC); Anemia B12 Deficiency; Anticoagulant Therapy Discharge Disposition: Home or Self Care 07/06/2025 10:10 AM CDT - 07/06/2025 10:39 AM CDT Hospital Encounter Department of Laboratory Medicine and Pathology, [facility] in [place], [place] [address] [place] [address] Hang Arrington M.D. Embolus Pulmonary (HCC); Palpitations; Hyperhomocysteinem ia (HCC); Anemia B12 Deficiency; Anticoagulant Therapy Discharge Disposition: Home or Self Care 07/06/2025 8:30 AM CDT - 07/06/2025 9:44 AM CDT Hospital Encounter Department of Radiology, [facility] in [place], [place] [address] [place] [phone] Hang Arrington M.D. Embolus Pulmonary (HCC) Discharge Disposition: Home or Self Care 07/02/2025 Clinical Communication Department of Vascular Medicine in [place], [place] [address] [place] [phone] Hang Arrington M.D. Phone Contact 06/29/2025 Orders Only Department of Vascular Medicine in [address] [phone] Hang Arrington M.D. Embolus Pulmonary (HCC) (Primary Dx) 06/28/2025 2:00 PM CDT Telemedicine Department of Vascular Medicine in [place], [place] [address] [place] [phone] Hang Arrington M.D. Embolus Pulmonary (HCC) (Primary Dx); Palpitations; Hyperhomocysteinem ia (HCC); Anemia B12 Deficiency; Anticoagulant Therapy 06/27/2025 Orders Only Department of Vascular Medicine in [place], [place] [address] [place] [phone] Hang Arrington M.D. 06/24/2025 Documentation Department of Vascular Medicine in [place], [place] [address] [place] [phone] Hang Arrington M.D. from Last 3 Months Social History Tobacco Use Types Packs/Day Years Used Date Smoking Tobacco: Former Cigarettes 0 05/22/2014 - 10/14/2018 Passive Smoke Exposure: Current Smokeless Tobacco: Never Alcohol Use Standard Drinks/Week Comments Not Currently 3 (1 standard drink = 0.6 oz pure alcohol) Date nights maybe wednesday and wednesday [facility] Utilities Answer Date Recorded In the past [...] your living situation today? 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 Gender Identity Not on file Sexual Orientation Not on file Last Filed Vital Signs Vital Sign Reading Time Taken Comments Blood Pressure 98/70 07/19/2025 10:40 AM CDT Pulse 83 07/19/2025 10:40 AM CDT Temperature 36.9 C (98.4 F) 07/04/2024 3:46 PM CDT Respiratory Rate 16 07/04/2024 3:46 PM CDT Oxygen Saturation 98% 07/04/2024 3:46 PM CDT Inhaled Oxygen Concentration - - Weight 121 kg (265 lb 14 oz) 07/19/2025 10:40 AM CDT Height 176.2 cm (5' 9.37) 07/19/2025 10:40 AM C DT Body Mass Index 38.85 07/19/2025 10:40 AM CDT Plan of Treatment Upcoming Encounters Date Type Department Care Team (Late st Contact Info) Description 08/03/2025 2:30 PM CDT Appointment Department of Radiology, [facility] in [place], [place] [address] [place] [phone] Hang Arrington M.D. [address] [place] [phone] Discharge Disposition: Home or Self Care 08/03/2025 3:30 PM CDT Appointment Department [place] [facility], [place] [address] [place] [phone] Hang Arrington M.D. 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 [address] [place] [phone] Health Maintenance Due Date Last Done Comments HIV Screening 1995 Hepatitis C Screening 1995 Tobacco Cessation counseling 1994 Hepatitis B Vaccines (3 of 3 - 3-dose series) 12/09/2006 10/14/2006, 06/09/2006 HPV Vaccines (3 - 3-dose series) 12/09/2012 08/31/2012, 06/08/2012 Cervical/Vaginal Cancer Screening 12/20/2023 12/19/2020, 08/08/2010 Depression Screening (Annual PHQ-2) 10/18/2024 COVID-19 Vaccine ( season) 2025 12/26/2021, 06/26/2021, 05/27/2021 Influenza Vaccine (#1) 2025 07/20/2019, 2018 DTaP,Tdap,and [...] outpatients) 07/20/2025 2:32 PM CDT Pain Chest ECG Routine 07/20/2025 1:31 PM CDT Pain Chest FOLATE, S Routine 07/19/2025 9:36 AM CDT Other Folate Deficiency Anemias VITAMIN B12 ASSAY, S Routine 07/19/2025 9:36 AM CDT Deficiency Vitamin B12 HEPARIN LEVEL ANTI-XA ASSAY, P Routine 07/19/2025 9:36 AM CDT Embolus Pulmonary (HCC) Anticoagulant Therapy HOLTER MONITOR - IN CLINIC FRUIT OR NUT FARMER Routine 07/08/2025 5:15 AM CDT Embolus Pulmonary (HCC) Palpitations Hyperhomocysteine kamala (HCC) Anemia B12 Deficiency Anticoagulant Therapy HEPARIN LEVEL ANTI-XA ASSAY, P Routine 07/06/2025 10:27 AM CDT Embolus Pulmonary (HCC) Palpitations Hyperhomocysteine kamala (HCC) Anemia B12 Deficiency Anticoagulant Therapy CT CHEST ANGIOGRAM AND PULMONARY ARTERIES WITH IV CONTRAST RAD - Routine (most inpatients and all outpatients) 07/06/2025 10:01 AM CDT Embolus Pulmonary (HCC) OUTSIDE US CARD Routine 06/22/2025 12:[address] BODY Routine 06/21/2025 2:25 PM CDT OUTSIDE US Routine 06/21/2025 12:00 AM CDT from Last 3 Months Results * NM Lung Ventilation and Perfusion [...] CDT) Ventricular Rate ECG/Min 63 BPM MUSE TX Interval 146 ms MUSE QRSD Interval 84 ms MUSE QT Interval 452 ms MUSE QTC Interval 463 ms MUSE P Isola 46 degrees MUSE R Isola 63 degrees MUSE T Wave Isola 14 degrees MUSE 07/20/2025 1:31 PM CDT [...] M.D. ECG ORDERABLES Final Result MUSE NA * Heparin Anti-Xa Assay (07/19/2025 9:36 AM CDT) Only the most recent of2 resultswithin the time period is included. Heparin Anti-Xa, P 0.62 IU/mL 2024 10:38 [...] ADD-ON Final R esult Performing Organization Address City/[facility]/ZIP Co de Phone Number [facility] [address] [facility] [address] [place] [address] * (ABNORMAL) Folate (07/19/2025 9:36 AM CDT) Pathologist [facility] Folate, S 3.6(L) >=4.0 mcg/L 07/19/2025 11:14 AM CDT DTL Comment:Result suggests tina te deficiency Blood (Blood, Venous) 07/19/2025 9:36 AM CDT 07/19/2025 10:00 AM CDT Hang Arrington M.D. LAB BLOOD ADD-ON Final Resul t Performing Organization Address City/[facility]/ZIP Co de Phone Number [facility] [address] [place] [address], [facility] [address] [place] [address] * (ABNORMAL) Vitamin B12 Assay (07/19/2025 9:36 [...] M.D. LAB BLOOD ADD-[place] [address], [facility] [address] [place] [address] * HOLTER MONITOR - IN CLINIC FRUIT OR NUT FARMER (07/08/2025 5:15 AM CDT) Pathologist [facility] Min Heart Rate 38 bpm INFOB IONIC [...] Duration 0 duration INFOBION IC MOME AF [place] 0 percent INFOBIONIC MOME Symptom Count 13 [...] these events, one PAC was seen singly. Java Flex Developer: FELTON Ha Procedure Note Alcides Eng M.D., [...] these events, one PAC was seen singly. Java Flex Developer: FELTON Ha Hang Arrington M.D. CV CARDIAC SERVICES PROCEDUR ES Final Result INFOBIONIC SIOBHAN NA * CT Chest Angiogram and Pulmonary Arteries [...] with Dr. Hang Arrington, pager [phone] or [phone] by Xochitl Amanda ELDA at 10:03 am on 07/06/2025. Narrative 07/06/2025 [...] with Dr. Hang Arrington, pager [phone] or [phone] Max Amanda APRN at 10:03 am on 07/06/2025. Hang Arrington M.D. IMG CT PROCEDURES Final Resu lt * ECHO TTE COMPLETE WO CONTRAST-Outside US Card (06/22/2025 12:00 AM CDT) 06/22/2025 11:4 3 AM CDT Addenda Addendum by [email or web address], Outside on 06/22/2025 11:43 AM CDT BELOW REPORT RECEIVED BY [facility] ON 07/25/2025 07:39:26 [id number] ECHOCARDIOGRAM KARO Parveen WALTER : 1995 30 years Study Date: 06/22/2025 7:36:23 AM Gender: F BP: 90/47 mmHg Height: 175.00 cm BSA: 2.35 m?? Weight: 123.00 kg Tech: NKM Referring MD: BRIAN SENA Site: [facility] Reading Location: [facility]_ Patient Location: Inpatient. Procedure: 2D, Color Doppler, Spectral Doppler and 3D Imaging. Indication for study: Pulmonary embolism Cardiac Rhythm: Sinus bradycardia.Study quality: Good. Final Impressions: 1. Normal LV size, mildly increased wall thickness, normal global systolic function with an estimated EF of 65 - 70%. 2. Right ventricular cavity size is normal, global systolic RV function is normal. Chamber Sizes and Function Normal left ventricular size, mildly increased wall thickness, normal global systolic function with an estimated EF of 65 - 70%. LV ejection fraction by 3D calculation is 59 %. No resting regional wall motion abnormality visualized. Left atrial size is normal. Right ventricular cavity size is normal, global systolic RV function is normal. RV wall thickness is normal. The right atrium is normal. Right atrial area is 17 cm??. The pulmonary artery is of normal size and origin. The sinus of Valsalva is normal sized. The ascending aorta is normal sized. Valves, RV Pressures and Diastolic Function The aortic valve is not well visualized , no stenosis and no regurgitation. The mitral valve is normal in structure, no mitral regurgitation. Normal diastolic function. The tricuspid valve is normal in structure, trace tricuspid regurgitation. The pulmonic valve is normal. No pulmonary regurgitation. Masses, Effusion, Shunts There is no pericardial effusion. The inferior vena cava is not well visualized, respiratory size variation not well visualized. No left to right shunting was detected by limited color flow Doppler interrogation of the interatrial septum. MEASUREMENTS AND CALCULATIONS 2-D Measurements and LV Function: LVID (d) 5.0 cm 3D EF 59 % LVID (s) 2.9 cm LV FS% (2D) 42 % IVS (d) 1.2 cm LVOT diameter 2.2 cm LVPW (d) 1.0 cm HR 58 bpm Ao Sinus 3.3 cm LA Vol index 22 ml/m2 Ao Sinus ULN 3.5 cm * RA area 17 cm?? Asc Ao 2.8 cm RV Basal Diam 3.1 cm Asc Ao ULN 3.4 cm * LA 3.9 cm * Input BSA outside of range, reported values correspond to BSA = 1.9 Diastology: Mitral Tissue Doppler Pulmonary veins E Peak 0.9 m/s e', Septum 0.12 m/s Pulm s 62.8 cm/s A Peak 0.3 m/s e', Lateral 0.15 m/s Pulm d 51.4 cm/s E/A 2.8 E/e' Average 6.68 Pulm s/d ratio 1.22 DT 185 msec Aortic Valve: Vmax 1.1 m/s SHARIF (V) 3.12 cm?? VTI 0.24 m SHARIF (I) 3.49 cm?? LVOT V max 0.9 m/s Max PG 5 mmHg LVOT VTI 0.22 m Mean PG 3 mmHg SV 85 ml Dim Index 0.92 SV index 36 ml/m?? CO 4.9 l/min CI 2.1 l/min/m?? Mitral Valve: MVA 4.1 cm?? MV P 1/2 54 msec Tricuspid Valve and estimated PA pressures: TAPSE 1.7 cm Pulmonic Valve: PV Vmax 0.8 m/s . This study was interpreted by an [facility] accredited facility. Final READ BY Hesham Hough RELEASED BY HOUGH Addendum by [email or web address], Outside on 06/22/2025 11:43 AM CDT BELOW REPORT RECEIVED BY [facility] ON 07/25/2025 07:38:47 [id number] ECHOCARDIOGRAM KARO ALEMANSaulBRENDAN : 1995 30 years Study Date: 06/22/2025 7:36:23 AM Gender: F BP: 90/47 mmHg Height: 175.00 cm BSA: 2.35 m?? Weight: 123.00 kg Tech: SIM Referring MD: BRIAN SENA Site: [facility] Reading Location: [facility] ST_IP Patient Location: Inpatient. Procedure: 2D, Color Doppler, Spectral Doppler and 3D Imaging. Indication for study: Pulmonary embolism Cardiac Rhythm: Sinus bradycardia.Study quality: Good. Final Impressions: 1. Normal LV size, mildly increased wall thickness, normal global systolic function with an estimated EF of 65 - 70%. 2. Right ventricular cavity size is normal, global systolic RV function is normal. Chamber Sizes and Function Normal left ventricular size, mildly increased wall thickness, normal global systolic function with an estimated EF of 65 - 70%. LV ejection fraction by 3D calculation is 59 %. No resting regional wall motion abnormality visualized. Left atrial size is normal. Right ventricular cavity size is normal, global systolic RV function is normal. RV wall thickness is normal. The right atrium is normal. Right atrial area is 17 cm??. The pulmonary artery is of normal size and origin. The sinus of Valsalva is normal sized. The ascending aorta is normal sized. Valves, RV Pressures and Diastolic Function The aortic valve is not well visualized , no stenosis and no regurgitation. The mitral valve is normal in structure, no mitral regurgitation. Normal diastolic function. The tricuspid valve is normal in structure, trace tricuspid regurgitation. The pulmonic valve is normal. No pulmonary regurgitation. Masses, Effusion, Shunts There is no pericardial effusion. The inferior vena cava is not well visualized, respiratory size variation not well visualized. No left to right shunting was detected by limited color flow Doppler interrogation of the interatrial septum. MEASUREMENTS AND CALCULATIONS 2-D Measurements and LV Function: LVID (d) 5.0 cm 3D EF 59 % LVID (s) 2.9 cm LV FS% (2D) 42 % IVS (d) 1.2 cm LVOT diameter 2.2 cm LVPW (d) 1.0 cm HR 58 bpm Ao Sinus 3.3 cm LA Vol index 22 ml/m2 Ao Sinus ULN 3.5 cm * RA area 17 cm?? Asc Ao 2.8 cm RV Basal Diam 3.1 cm Asc Ao ULN 3.4 cm * LA 3.9 cm * Input BSA outside of range, reported values correspond to BSA = 1.9 Diastology: Mitral Tissue Doppler Pulmonary veins E Peak 0.9 m/s e', Septum 0.12 m/s Pulm s 62.8 cm/s A Peak 0.3 m/s e', Lateral 0.15 m/s Pulm d 51.4 cm/s E/A 2.8 E/e' Average 6.68 Pulm s/d ratio 1.22 DT 185 msec Aortic Valve: Vmax 1.1 m/s SHARIF (V) 3.12 cm?? VTI 0.24 m SHARIF (I) 3.49 cm?? LVOT V max 0.9 m/s Max PG 5 mmHg LVOT VTI 0.22 m Mean PG 3 mmHg SV 85 ml Dim Index 0.92 SV index 36 ml/m?? CO 4.9 l/min CI 2.1 l/min/m?? Mitral Valve: MVA 4.1 cm?? MV P 1/2 54 msec Tricuspid Valve and estimated PA pressures: TAPSE 1.7 cm Pulmonic Valve: PV Vmax 0.8 m/s . This study was interpreted by an [facility] accredited facility. Final READ BY Hesham Hough RELEASED BY ELLE Addendum by [email or web address], Outside on 06/22/2025 11:43 AM CDT BELOW REPORT RECEIVED BY [facility] ON 07/25/2025 07:37:28 [id number] ECHOCARDIOGRAM KARO ALEMANSAIMACARDONA : 1995 30 years Study Date: 06/22/2025 7:36:23 AM Gender: F BP: 90/47 mmHg Height: 175.00 cm BSA: 2.35 m?? Weight: 123.00 kg Tech: [facility] Referring MD: BRIAN SENA Site: [facility] Reading Location: [facility] Patient Location: Inpatient. Procedure: 2D, Color Doppler, Spectral Doppler and 3D Imaging. Indication for study: Pulmonary embolism Cardiac Rhythm: Sinus bradycardia.Study quality: Good. Final Impressions: 1. Normal LV size, mildly increased wall thickness, normal global systolic function with an estimated EF of 65 - 70%. 2. Right ventricular cavity size is normal, global systolic RV function is normal. Chamber Sizes and Function Normal left ventricular size, mildly increased wall thickness, normal global systolic function with an estimated EF of 65 - 70%. LV ejection fraction by 3D calculation is 59 %. No resting regional wall motion abnormality visualized. Left atrial size is normal. Right ventricular cavity size is normal, global systolic RV function is normal. RV wall thickness is normal. The right atrium is normal. Right atrial area is 17 cm??. The pulmonary artery is of normal size and origin. The sinus of Valsalva is normal sized. The ascending aorta is normal sized. Valves, RV Pressures and Diastolic Function The aortic valve is not well visualized , no stenosis and no regurgitation. The mitral valve is normal in structure, no mitral regurgitation. Normal diastolic function. The tricuspid valve is normal in structure, trace tricuspid regurgitation. The pulmonic valve is normal. No pulmonary regurgitation. Masses, Effusion, Shunts There is no pericardial effusion. The inferior vena cava is not well visualized, respiratory size variation not well visualized. No left to right shunting was detected by limited color flow Doppler interrogation of the interatrial septum. MEASUREMENTS AND CALCULATIONS 2-D Measurements and LV Function: LVID (d) 5.0 cm 3D EF 59 % LVID (s) 2.9 cm LV FS% (2D) 42 % IVS (d) 1.2 cm LVOT diameter 2.2 cm LVPW (d) 1.0 cm HR 58 bpm Ao Sinus 3.3 cm LA Vol index 22 ml/m2 Ao Sinus ULN 3.5 cm * RA area 17 cm?? Asc Ao 2.8 cm RV Basal Diam 3.1 cm Asc Ao ULN 3.4 cm * LA 3.9 cm * Input BSA outside of range, reported values correspond to BSA = 1.9 Diastology: Mitral Tissue Doppler Pulmonary veins E Peak 0.9 m/s e', Septum 0.12 m/s Pulm s 62.8 cm/s A Peak 0.3 m/s e', Lateral 0.15 m/s Pulm d 51.4 cm/s E/A 2.8 E/e' Average 6.68 Pulm s/d ratio 1.22 DT 185 msec Aortic Valve: Vmax 1.1 m/s SHARIF (V) 3.12 cm?? VTI 0.24 m SHARIF (I) 3.49 cm?? LVOT V max 0.9 m/s Max PG 5 mmHg LVOT VTI 0.22 m Mean PG 3 mmHg SV 85 ml Dim Index 0.92 SV index 36 ml/m?? CO 4.9 l/min CI 2.1 l/min/m?? Mitral Valve: MVA 4.1 cm?? MV P 1/2 54 msec Tricuspid Valve and estimated PA pressures: TAPSE 1.7 cm Pulmonic Valve: PV Vmax 0.8 m/s . This study was interpreted by an [facility] accredited facility. Final READ BY Hesham Hough RELEASED BY ELLE Narrative IMAGING - 07/25/2025 7:56 AM CDT This order has been created and auto-finalized to support the import of outside images. If available, original interpretation can be found on the Media Tab in Chart Review, in Document Viewer, as an image in InfinityView or as an Addendum. If a re-interpretation or overread is required please follow defined workflow. Procedure Note Digital Media, Outside - 07/25/2025 This order has been created and auto-finalized to support the import ofoutside images. If available, original interpretation can be found on theMedia Tab in Chart Review, in Document Viewer, as an image in InfinityViewor as an Addendum. If a re-interpretation or overread is required please follow definedworkflow. us Provider Not In System IMG NON RAD IMAGING [facility] Edited Result - Final IMAGING NA * Outside CT Body (06/21/2025 2:25 PM CDT) 06/21/2025 3:03 PM CDT Addenda Addendum by [email or web address], Outside on 06/21/2025 3:03 PM CDT BELOW REPORT RECEIVED BY [facility] ON 06/21/2025 15:23:15 [id number] For Patients: As a result of the 21st Century Cures Act, medical imaging exams and procedure reports are released immediately into your electronic medical record. You may view this report before your referring provider. If you have questions, please contact your health care provider. INDICATION: Pulmonary embolism suspected, high probability. History of clotting disorder TECHNIQUE: CT chest PE was acquired with 100 cc Omnipaque 350 IV contrast. Coronal and MIP reconstructions were performed. COMPARISON: CTA chest 07/19/2024 FINDINGS: Heart and vasculature: Contrast opacification of the pulmonary arterial tree is adequate. There are bilateral filling defects consistent with pulmonary emboli (for example series 5, images 75, 101, 130, 145), most proximally within the right lower lobar pulmonary artery. RV/LV ratio is less than 1. Heart size is normal. Thoracic aorta and pulmonary artery are normal in caliber. Lungs and pleura: No suspicious nodules or infiltrates. Minimal subsegmental atelectasis. No pleural effusions, pleural thickening, or pneumothorax. Lymph nodes/mediastinum: No mediastinal, hilar, or axillary adenopathy. Chest wall: No masses. Upper abdomen: No acute or significant findings. Status post sleeve partial gastrectomy. Bones: No acute or suspicious abnormality. Impression: Acute bilateral pulmonary emboli most proximally within the right lower lobar pulmonary artery. The above findings were discussed with Dr. Vidal by Dr. Murray at 15:00. Please note that all CT scans at this facility use dose modulation, iterative reconstruction, and/or weight-based dosing when appropriate to reduce radiation dose to as low as reasonably achievable. Dictated by Michela Murray MD @ 06/21/2025 3:03:11 PM (Electronically Signed) READ BY Michela Murray RELEASED BY CHU Addendum by [email or web address], Outside on 06/21/2025 3:03 PM CDT BELOW REPORT RECEIVED BY [facility] ON 06/21/2025 15:22:35 [id number] For Patients: As a result of the 21st Century Cures Act, medical imaging exams and procedure reports are released immediately into your electronic medical record. You may view this report before your referring provider. If you have questions, please contact your health care provider. INDICATION: Pulmonary embolism suspected, high probability. History of clotting disorder TECHNIQUE: CT chest PE was acquired with 100 cc Omnipaque 350 IV contrast. Coronal and MIP reconstructions were performed. COMPARISON: CTA chest 07/19/2024 FINDINGS: Heart and vasculature: Contrast opacification of the pulmonary arterial tree is adequate. There are bilateral filling defects consistent with pulmonary emboli (for example series 5, images 75, 101, 130, 145), most proximally within the right lower lobar pulmonary artery. RV/LV ratio is less than 1. Heart size is normal. Thoracic aorta and pulmonary artery are normal in caliber. Lungs and pleura: No suspicious nodules or infiltrates. Minimal subsegmental atelectasis. No pleural effusions, pleural thickening, or pneumothorax. Lymph nodes/mediastinum: No mediastinal, hilar, or axillary adenopathy. Chest wall: No masses. Upper abdomen: No acute or significant findings. Status post sleeve partial gastrectomy. Bones: No acute or suspicious abnormality. Impression: Acute bilateral pulmonary emboli most proximally within the right lower lobar pulmonary artery. The above findings were discussed with Dr. Vidal by Dr. Murray at 15:00. Please note that all CT scans at this facility use dose modulation, iterative reconstruction, and/or weight-based dosing when appropriate to reduce radiation dose to as low as reasonably achievable. Dictated by Michela Murray MD @ 06/21/2025 3:03:11 PM (Electronically Signed) READ BY Michela Murray RELEASED BY CHU Addendum by [email or web address], Outside on 06/21/2025 3:03 PM CDT BELOW REPORT RECEIVED BY [facility] ON 06/21/2025 15:21:34 [id number] For Patients: As a result of the 21st Century Cures Act, medical imaging exams and procedure reports are released immediately into your electronic medical record. You may view this report before your referring provider. If you have questions, please contact your health care provider. INDICATION: Pulmonary embolism suspected, high probability. History of clotting disorder TECHNIQUE: CT chest PE was acquired with 100 cc Omnipaque 350 IV contrast. Coronal and MIP reconstructions were performed. COMPARISON: CTA chest 07/19/2024 FINDINGS: Heart and vasculature: Contrast opacification of the pulmonary arterial tree is adequate. There are bilateral filling defects consistent with pulmonary emboli (for example series 5, images 75, 101, 130, 145), most proximally within the right lower lobar pulmonary artery. RV/LV ratio is less than 1. Heart size is normal. Thoracic aorta and pulmonary artery are normal in caliber. Lungs and pleura: No suspicious nodules or infiltrates. Minimal subsegmental atelectasis. No pleural effusions, pleural thickening, or pneumothorax. Lymph nodes/mediastinum: No mediastinal, hilar, or axillary adenopathy. Chest wall: No masses. Upper abdomen: No acute or significant findings. Status post sleeve partial gastrectomy. Bones: No acute or suspicious abnormality. Impression: Acute bilateral pulmonary emboli most proximally within the right lower lobar pulmonary artery. The above findings were discussed with Dr. Vidal by Dr. Murray at 15:00. Please note that all CT scans at this facility use dose modulation, iterative reconstruction, and/or weight-based dosing when appropriate to reduce radiation dose to as low as reasonably achievable. Dictated by Michela Murray MD @ 06/21/2025 3:03:11 PM (Electronically Signed) READ BY Michela Murray RELEASED BY CHU Narrative IMAGING - 06/21/2025 3:52 PM CDT This order has been created and auto-finalized to support the import of outside images. If available, original interpretation can be found on the Media Tab in Chart Review, in Document Viewer, as an image in InfinityView or as an Addendum. If a re-interpretation or overread is required please follow defined workflow. Procedure Note [email or web address], Outside - 06/21/2025 This order has been created and auto-finalized to support the import ofoutside images. If available, original interpretation can be found on theMedia Tab in Chart Review, in Document Viewer, as an image in InfinityViewor as an Addendum. If a re-interpretation or overread is required please follow definedworkflow. us Provider Not In System IMG CT PROCEDURES Edited Result - Final IMAGING NA * Outside US (06/21/2025 12:00 AM CDT) 06/21/2025 3:13 PM CDT Addenda Addendum by [email or web address], Outside on 06/21/2025 3:13 PM CDT BELOW REPORT RECEIVED BY [facility] ON 06/21/2025 15:17:45 [id number] For Patients: As a result of the 21st Century Cures Act, medical imaging exams and procedure reports are released immediately into your electronic medical record. You may view this report before your referring provider. If you have questions, please contact your health care provider. INDICATION: Leg pain and swelling. TECHNIQUE: Ultrasound venous duplex bilateral lower extremity. Compression venous exam was performed using abdullahi-scale, color Doppler, and spectral Doppler analysis. COMPARISON: None. FINDINGS: Deep veins: Sonographic imaging demonstrates the bilateral common femoral, deep femoral, superficial femoral, popliteal, and posterior tibial veins to be fully compressible with normal color Doppler blood flow. Superficial veins: Greater saphenous veins are fully compressible. No popliteal cyst. Impression: No DVT in the bilateral lower extremities Dictated by Cristin Villarreal MD @ 06/21/2025 3:13:54 PM (Electronically Signed) READ BY Cristin Villarreal RELEASED BY ROGER Addendum by [email or web address], Outside on 06/21/2025 3:13 PM CDT BELOW REPORT RECEIVED BY [facility] ON 06/21/2025 15:17:14 [id number] For Patients: As a result of the Century Cures Act, medical imaging exams and procedure reports are released immediately into your electronic medical record. You may view this report before your referring provider. If you have questions, please contact your health care provider. INDICATION: Leg pain and swelling. TECHNIQUE: Ultrasound venous duplex bilateral lower extremity. Compression venous exam was performed using abdullahi-scale, color Doppler, and spectral Doppler analysis. COMPARISON: None. FINDINGS: Deep veins: Sonographic imaging demonstrates the bilateral common femoral, deep femoral, superficial femoral, popliteal, and posterior tibial veins to be fully compressible with normal color Doppler blood flow. Superficial veins: Greater saphenous veins are fully compressible. No popliteal cyst. Impression: No DVT in the bilateral lower extremities Dictated by Cristin Villarreal MD @ 06/21/2025 3:13:54 PM (Electronically Signed) READ BY Cristin Villarreal RELEASED BY ROGER Narrative IMAGING - 06/21/2025 3:49 PM CDT This order has been created and auto-finalized to support the import of outside images. If available, original interpretation can be found on the Media Tab in Chart Review, in Document Viewer, as an image in InfinityView or as an Addendum. If a re-interpretation or overread is required please follow defined workflow. Procedure Note [employer], Outside - 06/21/2025 This order has been created and auto-finalized to support the import ofoutside images. If available, original interpretation can be found on theMedia Tab in Chart Review, in Document Viewer, as an image in InfinityViewor as an Addendum. If a re-interpretation or overread is required please follow definedworkflow. us Provider Not In System IMG US PROCEDURES Edited Result - Final IMAGING NA from Last 3 Months Insurance [facility] Advance Directives For more information, please contact: [phone] * Full Code (Latest Code Status on File) Date Activated Date Inactivated Comments 07/01/2024 2:27 AM 07/04/2024 10:47 PM Question Answer Comments Full Code: Discussed Care Teams Portfolio Administrator Relationship Specialty Start Date End Date Elsewhere, Pcp PCP - General Internal Medicine 04/12/24
--- OUTSIDE RECORDS SUMMARY | 2025-07-30 18:45 | XMS_ITS | Encounter Summary ---
Author Organization [place] Address [address] [facility] [place] [address] Care Team Providers Care Typewriter Assembly And Parts Inspector Name Role Phone Sarah Juares MD Primary Care Provider Purvi Jeong [facility] Unavailable [phone] Lucas Nuno MD Unavailable [phone] Meghan Cox [facility] Unavailable [phone] Encounter Details Date Type Department Care Team (Late st Contact Info) Description 03/19/2025 MyC Medical Advice [facility] [place] [address] [place] [address] Lucas Nuno MD [address] [facility] [address] [place] [address] Social History Tobacco Use Types Packs/Day Years Used Date Smoking Tobacco: Former Smokeless Tobacco: Never Alcohol Use Standard Drinks/Week Comments Not Currently 0 (1 standard drink = 0.6 oz pur e alcohol) rare PHQ-2 Answer Date Recorded PHQ-2 Score 0 02/22/2025 Maypearl Depression Scale Answer Date Recorded Maypearl Depression Score 1 07/06/2021 Last EPDS Self [...] AM CDT 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 Gender Identity Female 06/03/2022 7:36 AM CDT Sexual Orientation Straight 06/03/2022 7: 36 AM CDT documented as of this encounter Plan of Treatment Not on file documented as of this encounter Visit Diagnoses Not on filedocumented in this encounter Care Teams Typewriter Assembly And Parts Inspector Relationship Specialty [place] [address] [place] [address] PCP - General Family Medicine 03/13/25 Purvi Jeong Melody [address] [place] [address] [phone] Pharmacist Pharmacist Director Of Customer Service 01/03/25 Lucas Nuno MD [address] [place] [address] [phone] Assigned Surgical Provider 02/07/25 Meghan Cox RPH [address] [place] [address] [phone] Pharmacist Pharmacist Director Of Customer Service 03/20/25 documented as of this encounter
--- OUTSIDE RECORDS SUMMARY | 2025-07-30 18:45 | XMS_ITS | Patient Health Record ---
Author Organization [facility] Address [address] [place] [address] Care Team Providers Care Mammalogy Teacher Name Role Phone None, None Primary Care Provider PAUL Carvajal [phone] Reason For Referral No Information Medications Medication [...] Date Coverage End Date BLUE CROSS OUT [facility] [address] [address] [place], [place] [id number] Karo Gallegos Self - patient is the insured Medical (General) History Surgical History Surgery Date(Month/Year) Gastric sleeve 10/13/2016
--- OUTSIDE RECORDS SUMMARY | 2025-07-30 18:45 | XMS_ITS | Encounter Summary ---
Author Organization [place] Address [address] [facility] [place] [address] Care Team Providers Care Hospital Scientist Name Role Phone Sarah Juares MD Primary Care Provider [phone] Purvi Jeong [facility] Unavailable [phone] Lucas Nuno MD Unavailable [phone] Meghan Cox [facility] Unavailable [phone] Encounter Details Date Type Department Care Team (Late st Contact Info) Description 03/14/2025 MyC Medical Advice [facility] [place] [address] [facility] [address] [place] [address] Lucas Nuno MD [address] [facility] [address] [facility] [address] [place] [address] Social History Tobacco Use Types Packs/Day Years Used Date Smoking Tobacco: Former Smokeless Tobacco: Never Alcohol Use Standard Drinks/Week Comments Not Currently 0 (1 standard drink = 0.6 oz pur e alcohol) rare PHQ-2 Answer Date Recorded PHQ-2 Score 0 02/22/2025 Amelia Depression Scale Answer Date Recorded Amelia Depression Score 1 07/06/2021 Last EPDS Self [...] AM CDT 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 Gender Identity Female 06/03/2022 7:36 AM CDT Sexual Orientation Straight 06/03/2022 7: 36 AM CDT documented as of this encounter Plan of Treatment Not on file documented as of this encounter Visit Diagnoses Not on filedocumented in this encounter Care Teams Hospital Scientist Relationship Specialty [place] [address] [place] [address] PCP - General Family Medicine 03/13/25 Purvi Jeong [facility] [address] [place] [address] [phone] Pharmacist Pharmacist Junior Data Analyst 01/03/25 Lucas Nuno MD [address] [place] [address] [phone] Assigned Surgical Provider 02/07/25 Meghan Cox [facility] [address] [place] [address] [phone] Pharmacist Pharmacist Junior Data Analyst 03/20/25 documented as of this encounter
--- OUTSIDE RECORDS SUMMARY | 2025-07-30 18:45 | XMS_ITS ---
Author Name Interface, [id number] lity Address [address] [facility] [address] [address] Organization [facility] Address [address] [facility] [address] [address] Support Name Relationship Address Phone FREEDOM ALEMAN Father Unknown Unavailable Allergies and Adverse Reactions Medication/Group Name Reaction [...] 1 HR 07/07/2023 APPOINTMENT CHART CHECK 5 GA N 07/05/2023 APPOINTMENT [facility] LOW UP 20 MIN 07/05/2023 APPOINTMENT LAB 10 MIN 07/05/2023 LAB_ORDER Iron profile 07/05/2023 LAB_ORDER Ferritin panel 07/05/2023 LAB_ORDER CBC w/ auto diff 12/03/2023 LAB_ORDER CT chest/abdomen /pelvis w/ IV contrast 12/08/2023 LAB_ORDER Lupus anticoagul ant panel 12/08/2023 LAB_ORDER CBC w/ auto diff 12/08/2023 LAB_ORDER Protein C activi ty panel 12/08/2023 LAB_ORDER Ferritin panel 12/08/2023 LAB_ORDER Protein S activi ty panel 12/08/2023 LAB_ORDER Beta 2 glycoprot ein 1 abs (IgG, IgM) 12/08/2023 LAB_ORDER Factor II DNA an alysis panel 12/08/2023 LAB_ORDER Antithrombin III activity panel 12/08/2023 LAB_ORDER Factor V Leiden mutation analysis panel 12/08/2023 LAB_ORDER Cardiolipin Anti bodies (IgG, IgM) 12/08/2023 LAB_ORDER Iron profile Reason for Visit OV 20 [...] NG/ML 10.0 130.0 5.80 Low FINAL Enzo Garg [facility] [address] [phone] Phone: () - 07/05 Iron profi le TIBC ug/dL 250.0 425.0 410 FINAL Enzo Garg [facility], [address] [phone] 0 Phone: () - 07/05 Iron profi le Iron ug/dL 50.0 175.0 43 Low FINAL Enzo Garg [facility], [address] [facility] [address] [phone] 0 Phone: () - 07/05 Iron profi le Unbou nd iron capac ity ug/dL 75.0 410.0 367 FINAL Enzo Garg [place] [address] [phone] 0 Phone: () - 07/05 Iron profi le Iron, % satur ation % 20.0 55.0 10 Low FINAL Enzo Garg [facility], [address] [phone] 0 Phone: () - 07/05 CBC w/ auto diff WBC K/uL 3.0 8.9 7.1 FINAL [facility] [place], [address] [place] [phone] 0 Phone: () - 07/05 CBC w/ auto diff HGB g/dL 11.3 15.2 11.5 FINAL [facility] [place], [address] [place] [phone] 0 Phone: () - 07/05 CBC w/ auto diff PLT K/uL 113.0 364.0 302 FINAL [facility] [place], [address] [place] [phone] 0 Phone: () - 07/05 CBC w/ auto diff Fly # (ANC) K/uL 1.6 6.6 4.5 FINAL [facility] [place], [address] [place] [phone] 0 Phone: () - 07/05 CBC w/ auto diff Fly % % 43.0 74.0 62.6 FINAL [facility] [place], [address] [place] [phone] 0 Phone: () - 07/05 CBC w/ auto diff IG % % 0.0 0.5 0.3 FINAL [facility] [place], [address] [place] [phone] 0 Phone: () - 07/05 CBC w/ auto diff IG # K/uL 0.0 0.03 0.02 FINAL [facility] [place], [address] [place] [phone] 0 Phone: () - 07/05 CBC w/ auto diff LY % % 14.0 41.0 29.7 FINAL [facility] [place], [address] [place] [phone] 0 Phone: () - 07/05 CBC w/ auto diff MO % % 6.0 15.0 5.9 Low FINAL [facility] [place], [address] [place] [phone] 0 Phone: () - 07/05 CBC w/ auto diff EO % % 0.0 7.0 1.4 FINAL [facility] [place], [address] [place] [phone] 0 Phone: () - 07/05 CBC w/ auto diff BA % % 0.0 2.0 0.1 FINAL [facility] [place], [address] [place] [phone] 0 Phone: () - 07/05 CBC w/ auto diff LY # K/uL 0.4 3.6 2.1 FINAL [facility] [place], [address] [place] [phone] 0 Phone: () - 07/05 CBC w/ auto diff MO # K/uL 0.2 1.3 0.4 FINAL [facility] [place], [address] [place] [phone] 0 Phone: () - 07/05 CBC w/ auto diff EO # K/uL 0.0 0.6 0.1 FINAL [facility] [place], [address] [place] [phone] 0 Phone: () - 07/05 CBC w/ auto diff BA # K/uL 0.0 0.2 0.0 FINAL [facility] [place], [address] [place] [phone] 0 Phone: () - 07/05 CBC w/ auto diff NRBC % #/100W BC 0.0 0.2 0.0 FINAL [facility] [place], [address] [place] [phone] 0 Phone: () - 07/05 CBC w/ auto diff RBC M/uL 3.9 5.1 3.81 Low FINAL [facility] [place], [address] [place] [phone] 0 Phone: () - 07/05 CBC w/ auto diff HCT % 35.0 48.0 35.8 FINAL [facility] [place], [address] [place] [phone] 0 Phone: () - 07/05 CBC w/ auto diff MCV fL 80.0 104.0 94.0 FINAL [facility] [place], [address] [place] [phone] 0 Phone: () - 07/05 CBC w/ auto diff MCH pg 26.0 35.0 30.2 FINAL [facility] [place], [address] [place] [phone] 0 Phone: () - 07/05 CBC w/ auto diff MCHC g/dL 30.0 35.0 32.1 FINAL [facility] [place], [address] [place] [phone] 0 Phone: () - 07/05 CBC w/ auto diff MPV fL 9.5 13.4 9.1 Low FINAL [facility] [place], [address] [place] [phone] 0 Phone: () - 07/05 CBC w/ auto diff RDW % 11.4 16.1 15.70 FINAL [facility] [place], [address] [place] [phone] 0 Phone: () - 01/19 [facility] [place] See attacher d 02/17 [facility] [place] See attacher d 03/14 [facility] [place] lab See attacher d 03/27 [facility] [place] lab See attache patel 04/02 [facility] [place] lab See attache patel 04/06 [facility] [place] lab See attache aptel Medications Date Name Route Dose Frequency Instructions Start Date End Date Status Fill Status Indication 07/02 Omepraz ole Oral Delayed Release Capsule active 07/02 Metroni dazole Vaginal Gel 0.75 % active 07/02 Multivi tamins Oral Tablet active 07/05 Enoxapa rin Subcuta neous BID active 07/02 Ferrous Sulfate Oral active 07/02 Brimoni dine Topical Gel 0.33 % active 07/07 famotid ine 10 MG/ML Injecta ble Solutio n intraven ously 20.0 mg Re-initiate treatment only upon physician approval. 2022 active Iron deficiency anemia secondary to blood loss 07/07 hydroco rtisone 100 MG Injecti on intraven ously 100.0 mg Re-initiate treatment only upon physician approval. 2022 active Iron deficiency anemia secondary to blood loss 07/07 10 ML ferric derisom altose 100 MG/ML Injecti on intraven ously 1000. 0 mg once For actual body weight greater than or equal to 50 kg. Dilute in 100-500 mL NS to a final concentration greater than 1 mg iron/mL. Infuse over at least 20 minutes. Do not mix or infuse with other drugs. Monitor for signs and symptoms of hypersensitivi ty during and for at least 30 minutes after administration . Ferric derisomaltose is an irritant. 2022 active Iron deficiency anemia secondary to blood loss 07/07 methylp redniso lone 2000 MG Injecti on intraven ously 125.0 mg Re-initiate treatment only upon physician approval. 2022 active Iron deficiency anemia secondary to blood loss 07/07 1 ML epineph rine 1 MG/ML Injecti on intramus cularly 0.3 mg once Re-initiate treatment only upon physician approval. 2022 active Iron deficiency anemia secondary to blood loss Problems Diagnosis Status Date of Diagnosis Resolution [...] 86 Notes Section * Med Onc Consult <html><head></head><body><div style=text-align:center><span style=font- size:9px></span><span style=font-size:12px><span style=font-family:[place],Helvetica,sans-serif><span class=clinicalNote MacroHighlighted id=[id number] macroname=PracticeLetterhead&quot ; spantype=macro title=#PracticeLetterhead><img unqibf=383 src=live/fileDownload?type=[email or web address]&mnznLdaopdfrucOv=[id number] tbkle=793> </span></span></span>
</div><span style=font-size:12px"><span style=font-family:[place],Helvetica,sans-serif>
<strong>Patient Name: </strong><span class=clinicalNoteMacroHighlighted id=&quo t;[id number] macroname=PatientName spantype=macro title=&q uot;#PatientName>KALEB ALEMAN CARDONA</span>
<strong>MRN: &lt ;/strong><span class=clinicalNoteMacroHighlighted id=[id number]& quot; macroname=PatientMRN spantype=macro title=#PatientMRN>[id number]</span>
<strong>Date of : </strong><span class=&qu ot;clinicalNoteMacroHighlighted id=[id number] macroname=Patient DateOfBirth spantype=macro title=#PatientDateOfBirth>1995< /span>
<strong>Date of Service: </strong><span class=clini calNoteMacroHighlighted id=[id number] macroname=EffectiveDate&qu ot; spantype=macro title=#EffectiveDate>07/05/2023</span></span& gt;</span>
<strong>Attending Physician: </strong><span class=clinicalNoteMacroHighlighted id=[id number] macroname= AttendingPhysician spantype=macro title=#AttendingPhysician>Enzo Garg (Hematology/Oncology)</span>
<strong>Referring Physician:</strong&g t; <span class=clinicalNoteMacroHighlighted id=[id number]& quot; macroname=ReferringPhysician spantype=macro title=#ReferringPhys ician> </span>

<div style=text-align:center><span style=font-size:12px><span style=font-family:[place]ak[place],Helvetica,sans- serif><strong>INITIAL HEMATOLOGY/MEDICAL ONCOLOGY CONSULTATIO N</strong></span></span>

</div><span style=font-size:12px><span style=font-family:[place],Helvetica,sans-serif><span style=font- size:12px><span style=font-family:[place],Helvetica,sans-serif&g t;</span></span><span class=clinicalNoteSectionShowSeparators clinicalNoteSecti onVisible id=[id number] internalbreaksection=false origi nalname=Reason for Visit recognizeconcepts=true spantype=section suppressempty=false>Reason for Visit</span>
Anticoagulation recommend ations
Iron deficiency anemia

<span class=clinicalNoteSectionSh owSeparators clinicalNoteSectionVisible id=[id number] internalbreaksection=false originalname=Assessment recognizeconcepts=true spantype=section suppressempty=false>Assessment</span>
#1& nbsp;anticoagulation recommendations
-The patient had an unprovoked bilateral PE in March 2023. 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 At that time, she was switched from Xarelto to Lovenox injections at 1 mg/kg twice daily. She has been on Lovenox injections for the past 2-1/2 months, and tolerating it relatively well with no significant bleeding issues. Has a follow up CT coming up. CT CAP from 04/2023 showed no evidence of malignancy.

#2 History of iron deficiency anemia
- Did receive IV iron in the hospital in April 2023
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
- Taking oral iron daily

<span class=clinicalNoteSectionShowSeparators clinicalNoteSectionVisible id=[id number] internalbreaksection=false originalname=Plan recognizeconcepts=true spantype=section suppressempty=&q uot;false>Plan</span>
1. Continue Lovenox at 1 mg/kg twice daily for 6-month course (starting 04/19/2023, ending 10/20/2023)
2. Has an upcoming CT scan to follow-up on her PE and IVC thrombus on July 28. We will follow-up on the result
3. Given her young age, I think it is very reasonable to perform thrombophilia testing. We will haveher do this a few days after coming off Lovenox in October 2023. I will plan to see her a week later to go over the results
4. Checking CBC andiron studies today, and we will call the patient with results later this week
5.&a mp;nbsp; Reasonable to continue oral iron

<span style=font-size:12px&quo t;><span style=font-family:[place],Helvetica,sans-serif><span class=clin icalNoteSectionShowSeparators clinicalNoteSectionVisible id=[id number]" internalbreaksection=false originalname=Advanced Care Planning recognizeconcepts=true spantype=section suppressempty=true>Advanced Care Planning</span></span></span>
Not discussed at this visit.
<span class=clinicalNoteSectionShowSeparators clinicalNoteSectionVisible id=sectio [id number] internalbreaksection=false originalname=Pain Plan This V isit recognizeconcepts=true spantype=section suppressempty=false>Pain Scale on Today's Visit</span>
<span class=clinicalNoteMacroHighlighted id=[id number] macroname=PatientPainScale par ameters=LookBackDays:0,ValueIfNull:Not recorded on today spantype=macro>Not recorded on today's visit</span>
<span class=clinicalNoteSectionShowS eparators clinicalNoteSectionVisible id=[id number] internalbreaksection=false originalname=Pain Plan This Visit recognizeconcepts=true" spantype=section suppressempty=false>Pain Plan on Today's Visit</span>
<span class=clinicalNoteMacroHighlighted id=[id number] macroname=PatientPainCarePlan parameters=LookBackDays:0,ShowComments:Yes,ValueIfNull:No pain plan indicated for today spantype=macro>No pain planindicated for today's visit</span><span style=font-size:12px><span st yle=font-family:[place],Helvetica,sans-serif>
<span style=font-size:1 2px><span style=font-family:[place],Helvetica,sans-serif><span style=&qu ot;font-size:12px><span style=font-family:[place],Helvetica,sans-serif><span style=font-size:12px><span style=font-family:[place],Helvetica,sans-serif ><span style=font-family:[place]><span class=clinicalNoteSectionShowSeparators clinicalNoteSectionVisible id=[id number] internalbreaks ection=false originalname=Smoking Status recognizeconcepts=true spantype=section suppressempty=true>Smoking Status</span>
Smoking Status: <span class=clinicalNoteMacroHighlighted id=[id number] macroname=PatientSmokingStatus parameters=ValueIfNull:Not recor ded. spantype=macro title=#PatientSmokingStatus(ValueIfNull:Not recorded.)&q uot;>Smoking Tobacco : Former smoker, stopped smokin; Smokeless Tobacco : Never used smokeless tobacco; Vaping : Current vape user</span></span></span></span></spa n></span></span></span></span></span>

<span style=font-size:12px><span style=font-family:[place],Helvetica,sans-serif><span style=font- size:12px><span style=font-family:[place],Helvetica,sans-serif><span class=clinicalNoteSectionShowSeparators clinicalNoteSectionVisible" id=[id number] internalbreaksection=false originalname=&q uot;History of Present Illness recognizeconcepts=true spantype=section suppressempty=false>History of Present Illness</span></span></span&gt ;</span></span>
This is a very pleasant 28-year-old lady who had an un provoked acute PE involving bilateral lower lobes on March 23, 2023. She was started on anticoagulation in the form of Xarelto. She presented to the hospital with right-sided pleuritic chest pain again in early April, and CT scan of the chest, abdomen, and pelvis from April 19, 2023 showed persistent but decreased burden of pulmonary embolism since treatment 6, but there was a nonocclusive&am p;nbsp;IVC thrombus extending above and below the level of the renal veins. The IVC was poorly opacified on the comparison CT so the acuity of this finding was not certain. There was no definitive evidence of malignancy. Due to the unknown chronicity of the IVC thrombus, her anticoagulation was switched from Xarelto to Lovenox 1 mg/kg twice daily.

Of note, the patient also has a history of iron deficiency anemia due to malabsorption and menorrhagia, requiring IV iron supplem entation from time to time

<span class=clinicalNoteSectionShowSeparators clinicalNoteSectionVisible id=[id number] internalbreaksection="false originalname=Physical Exam recognizeconcepts=true spantype="section suppressempty=false>Review of Systems</span>
A comprehensive review of systems was performed and the pertinent positives and negatives can be found in the History of Present Illness.
<span style=font-size:12px><span style=&q uot;font-family:[place],Helvetica,sans-serif><span class=clinicalNoteSectionShowSeparators clinicalNoteSectionVisible id=[id number] internalbreaksection=false originalname=Past Medical History recognizeconcepts=true spantype=section suppressempty=false>Past Medical and Surgical History&l t;/span></span></span>
History of iron deficiency anemia

<span style=font-size:12px><span style=font-family:[place],Helvetica,sans-s erif><span class=clinicalNoteSectionShowSeparators clinicalNoteSectionVisible" id=[id number] internalbreaksection=false originalname=Current Medications recognizeconcepts=true spantype=section suppressempty=false>Current Medications</span>
<span class=clinicalNoteMacroHighlighted id=[id number] macroname=CurrentMedicationsTable spantype=macro title=#CurrentMedicationsTable><table border="1 style=width:100%> <tbody> <tr> <td align=left colspan=2>Medication List</td> </tr> <tr> <th align=left">Name</th> <th align=left>Date</th> </tr> <tr> <td width=60%>Multivitamins Oral Tablet</td> <td width=40%>07/02/2023</td> </tr> <tr> <td width=60%>Omeprazole Oral Delayed Release Capsule</td> <td width=40%>07/02/2023</td> </tr> <tr> <td width=60%>Ferrous Sulfate Oral</td> <td width=40%>07/02/2023</td> </tr> <tr> <td width=60%>Metronidazole Vaginal Gel 0.75 %</td> <td width=40%>07/02/2023</td> </tr> <tr> <td width=60%>Brimonidine Topical Gel 0.33 %</td> <td width=40%>07/02/2023</td> </tr> <tr> <td width=60%>Lovenox (Enoxaparin Subcutaneous)</td> <td width=40%>07/05/2023</td> </tr> </tbody></table></span></span></span>
<span style=font-size:12px><span style=font-family:[place],Helvetica,sans-serif><span class=&quo t;clinicalNoteSectionShowSeparators clinicalNoteSectionVisible id=[id number] internalbreaksection=false originalname=Allergies recognizeconcepts=true spantype=section suppressempty=false>Allergies</span>
<span class=clinicalNoteMacroHighlighted id=[id number] macroname=AllergyTable spantype=macro title=#AllergyTable"><table border=1 style=width:100%> <tbody> <tr> <td colspan=4>Current Allergy List</td> </tr> <tr> <td width="100px>Allergy Name</td> <td ztzwa=332nb>Severity</td> <td iivwr=205oy>Status</td> <td wogyk=804xo>Recording Date</td> </tr> <tr> <td fkwar=499zx>NSAIDS (Non- Steroidal Anti-Inflammatory Drug)</td> <td nzxii=980wc>
</td> <td gsnqz=630nm>Active</td> <td gdary=762zm>07/05/2023</td> </tr> <tr> <td hxhxy=548ld>Zithromax</td> <td crclz=840ux>
</td> <td gqkir=621fo>Active</td> <td tvgza=933pn">07/05/2023</td> </tr> </tbody></table></span></span></span>
<span style=font-size:12px><span style=font-family:[place],Helvetica,sans-serif><span class=clinicalNoteSectionShowSeparators clinicalNoteSectionVisible id=[id number] internalbreaksection=false originalname=Family History recognizeconcepts=true spantype=section" suppressempty=false>Family History</span></span></span>
Maternal grandmother had DVT/PE, but this was in the setting of malignancy

<span style=font-size:12px><span style=font-family:[place],Helvetica,sans- serif><span class=clinicalNoteSectionShowSeparators clinicalNoteSectionVisible" id=[id number] internalbreaksection=false originalname="Social History recognizeconcepts=true spantype=section suppressempty=true>Social History</span></span></span>
Has 2 children, ages 4 and 2. Former smoker, quit in 2016. No significant alcohol use.

<span style=font-size:12px><span style=font-family:[place],Helvetica,sans- serif><span class=clinicalNoteSectionShowSeparators clinicalNoteSectionV isible id=[id number] internalbreaksection=false original name=Vital Signs and Pain Scale recognizeconcepts=true spantype=section suppressempty=false>Vital Signs</span>
<span class=cl inicalNoteMacroHighlighted id=[id number] macroname=PatientVita lSigns parameters=LookBackDays:1 spantype=macro title=#PatientVi talSigns(LookBackDays:1)>Blood pressure: 152/86, Pulse: 93, Temperature: 96 F, Respirations: 16, O2 sat: 99%, Pain Scale: 0, Height: 68.75 in, Weight: 297.2 lb, BSA: 2.44, BMI: 44.21 kg/m2</span></span></span>
<span style=font-size:12px><spanstyle=font-family:[place],Helvetica,sans-serif><span style=font-size:12px"><span style=font-family:[place],Helvetica,sans-serif>Immunizations: <span cl ass=clinicalNoteMacroHighlighted id=[id number] macroname=I mmunizations parameters=ValueIfNull:Not recorded. spantype=macro title =#Immunizations(ValueIfNull:Not recorded.)>Covid-19 vaccine (Pfizer) (07/05/2023); Covid-19 vaccine (Pfizer) (07/05/2023); Covid-19 vaccine (Pfizer) (07/05/2023); Flu vaccine - Adult (06/2022)</span>
<span class=clinicalNoteMacroHighlighted id=[id number] macroname=PatientOxygenSat parameters=Label:Oxygen Sats,LookBackDays:All spantype=macro title=#PatientOxygenSat(Label:Oxygen Sats,Look BackDays:All)>Oxygen Sats 99%</span></span></span></span></span>
<span class=clinicalNoteSectionShowSeparators clinicalNoteSectionVisible id=[id number] internalbreaksection=false originalname=P erformance Status recognizeconcepts=true spantype=section suppressempt y=true>Performance Status ECOG or Karnofsky</span>
ECOG: <span class=clinicalNoteMacroHighlighted id=[id number] macroname= ECOGStatus parameters=ValueIfNull:Not recorded. spantype=macro t itle=#ECOGStatus(ValueIfNull:Not recorded.)>Not recorded.</span>
Karno fsky: <span class=clinicalNoteMacroHighlighted id=[id number] macroname=KarnofskyStatus parameters=ValueIfNull:Not recorded span type=macro title=#KarnofskyStatus(ValueIfNull:Not recorded)>Not recorded& lt;/span>

<span class=clinicalNoteSectionShowSeparators clinicalNoteS ectionVisible id=[id number] internalbreaksection=false originalname=Physical Exam recognizeconcepts=true spantype=section" suppressempty=true>Physical Exam</span>
General: Awake, alert, and oriented.
Skin: No bruising or skin rash noted.
Eyes: Sclera anicteric.
Mouth: Moist mucous membranes without u lceration
Lymphatics: No palpable lymphadenopathy
Abdomen: Soft, nontender, nondistended. No organomegaly.
Extremities: Well perfused, no edema.

<span class=clinicalNoteSectionShowSeparators clinicalNoteSectionVisible id=[id number] internalbreaksection=false originalname=Genetics/Molecular/Biomarkers recognizeconcepts=true spantype=section suppressempty=false>Genetics/Molecular/Biomarkers</span>

<span class=clinicalNoteSectionShowSeparators clinicalNoteSectionVisible id=&quot ;[id number] internalbreaksection=false originalname=Additiona l Labs, Imaging and Other Studies recognizeconcepts=true spantype=section&qu ot; suppressempty=true>Additional Labs, Imaging and Other Studies</span><br& gt;
<span class=clinicalNoteSectionShowSeparators clinicalNoteSectionVisible id=[id number] internalbreaksection=false originalname=Lab Data recognizeconcepts=true spantype=section suppressempty=true>Lab Results</span>
<span class=clinicalNoteMacroHighlighted" id=[id number] macroname=RecentLabResultsTable parameters=&quot ;OptionalFlowsheetCategory:CBC,Label:CBC spantype=macro title=#RecentLabResu ltsTable(OptionalFlowsheetCategory:CBC,Label:CBC)>CBC<table border=1 style=& quot;width:100%> <tbody> <tr> <th align=left>Lab Results</th> <td>07/05/2023</td> <td>05/05/2023</td> <td>04/22/2023</td> <td>04/21/2023</td> <td>04/20/2023</td> <td>04/19/2023</td> </tr> <tr> <th align=left> CBC</th> <td>
</td> <td>
</td> <td>
</td> <td>
</td> <td>
</td> <td>
</td> </tr><tr> <td> WBC x 10^3/uL</td> <td>7.1</td> <td>
</td> <td>
</td> <td>
</td> <td>
</td> <td>
</td> </tr> <tr> & lt;td> RBC x 10^6/uL</td> <td>3.81 (L)</td> <td>
</td> <td>
</td> <td>
</td> <td>
</td> <td>
</td> </tr> <tr> <td> NRBC % /100 wbc</td> <td>0.0</td> <td>
</td> <td>
</td> <td>
</td> <td>
</td> <td>
</td> </tr> <tr> <td> HGB g/dL</td> <td>11.5</td> <td>
</td> <td>
</td> <td>
</td> <td>
</td> <td>
</td> </tr> <tr> <td> HCT %</td> <td>35.8</td> <td>
</td> <td&g t;
</td> <td>
</td> <td>
</td> <td>
</td> </tr> <tr> <td> MCV fL</td> <td>94.0</td> <td>
</td> <td>
</ td> <td>
</td> <td>
</td> <td>
</td> </tr> <tr> <td> MCH pg</td> <td>30.2</td> <td>
</td> <td>
</td> <td>
</td> <td>
</td> <td>
</td> </tr><tr> <td> MCHC g/dL</td> <td>32.1</td> <td>
</td> <td>
</td> <td>
</td> <td>
</td> <td>
</td> </tr> <tr> < td> RDW %</td> <td>15.70</td> <td>
</td> <td>
</td> <td>
</td> <td>
</td> <td>
</td> </tr> <tr> <td> &a mp;nbsp; PLT x 10^3/uL</td> <td>302</td> <td>
</td> <td>
</td> <td>
</td> <td>
</td> <td>
</td> </tr> <tr> <td> MPV fL</td> <td>9.1 (L)</td> <td>
</td> < td>
</td> <td>
</td> <td>
</td> <td>
</td> </tr> <tr> <td> Fly %</td> <td>62.6</td> <td>
</td> <td>
&l t;/td> <td>
</td> <td>
</td> <td>
</td> </tr> <tr> <td> LY %</td> <td>29.7</td> <td>
</td> <td>
</td> <td>
</td> <td>
</td> <td>
</td> </tr> <tr> <td> MO %</td> <td>5.9 (L)</td> <td>
</td> <td>
</td> <td>
</td> <td>
</td> <td>
</td> </tr> <tr> <t d> EO %</td> <td>1.4</td> <td>
</td> <td>
</td> <td>
</td> <td>
</td> <td>
</td> </tr> <tr> <td> &n bsp; IG %</td> <td>0.3</td> <td>
</td> <td>
</td> <td>
</td> <td>
</td> <td>
</td> </tr> <tr> <td> &nb sp;Fly # (ANC) x 10^3/uL</td> <td>4.5</td> <td>
</td> <td>
</td> <td>
</td> <td>
</td> <td>
</td> </tr> <tr> <td> BA %</td> <td>0.1</td> <td>
</td> <td>
</td> <td>
</td> <td>
</td> <td>
</td> </tr> <tr> <td> MO # x 10^3/uL</td> <td>0.4</td> <td>
</td> <td>
</td> <td>
</td> <td>
</td> <td>
</td> </tr> <tr> <td> EO # x 10^3/uL</td> <td>0.1</td> <td>
</td> <td>
</td> <td>
</td> <td>
</td> <td>
</td> </tr> <tr> <td> BA # x 10^3/uL</td> <td>0.0</td> <td>
</td> <td>
</td> <td>
</td> <td>
</td> <td>
</td> </tr> <tr> < td> IG # x 10^3/uL</td> <td>0.02</td> <td>
</td> <td>
</td> <td>
</td> <td>
</td> <td>
</td> </tr> <tr> <td> LY # x 10^3/uL</td> <td>2.1</td> <td>
</td> <td>
</td> <td>
</td> <td>
</td> <td>
</td> </tr> </tbody></table></span>
<span class=clinicalNoteMacroHighclarke county hospitaled id=[id number] macroname=RecentLabResultsTable parameters=OptionalFlowsheetCategory:Chemistries,Label:Chemistries spantype=macro title=#RecentLabResultsTable(Option alFlowsheetCategory:Chemistries,Label:Chemistries)></span>
<span class=&q uot;clinicalNoteMacrVTighclarke county hospitaled id=[id number] macroname=RecentL abResultsTable parameters=OptionalFlowsheetCategory:Tumor Markers,Label:Tumor Markers" spantype=macro title=#RecentLabResultsTable(OptionalFlowsheetCategory:Tumor Ma rkers,Label:Tumor Markers)></span>
<span class=clinicalNoteMacroHig hlighted id=[id number] macroname=RecentLabResultsTable para meters=OptionalFlowsheetCategory:Anemia Labs,Label:Anemia Results spantype=macro" title=#RecentLabResultsTable(OptionalFlowsheetCategory:Anemia Labs,Label:Anemia Results)"></span></span></span>

<span class=clinicalNot eSectionShowSeparators clinicalNoteSectionVisible id=[id number] internalbreaksection=false originalname=Surveys/Consents/Other Discussions recognizeconcepts=true spantype=section suppressempty=true>Surveys/Consents/Other Discussions</span>

<hr><span style="font-size:12px><span style=font-family:[place],Helvetica,sans-serif>
Thank you for allowing me to see <span class=clinicalNoteMacroHighlighted" id=[id number] macroname=PatientName spantype=macro" title=#PatientName>KALEB ALEMAN CARDONA</span> in consult.</span></s renteria>

<div><strong>Enzo Garg MD</strong>
<span c lass=clinicalNoteMacroHighlighted id=[id number] macroname= LocationPhoneNumber parameters=Label:Phone: spantype=macro title=&quo t;#LocationPhoneNumber(Label:Phone: )> </span>
<span cl ass=clinicalNoteMacroHighlighted id=[id number] macroname=L ocationFaxNumber parameters=Label:Fax: spantype=macro title=#Lo cationFaxNumber(Label:Fax: )> </span>

CC: <span class=clinicalNoteMacroHighlighted id=[id number] macroname=&quo t;NoteRecipients spantype=macro title=#NoteRecipients>Sarah Juares MD
FAX</span>
</div><div>
</div>

<div><span class=eSignSignature>Electronically signed by Enzo Garg MD07/06/2023 07:47 CDT</span></div></body></html>
--- OUTSIDE RECORDS SUMMARY | 2025-07-30 18:46 | XMS_ITS | Encounter Summary ---
Author Organization [facility] Address [address] [place] [address] Care Team Providers Care Enrollment Advisor Name Role Phone Elsewhere, Pcp Primary Care Provider Unavailabl e Reason for Referral * Outpatient (Routine) - Closed Specialty Diagnoses / Procedures Referred By Contac t Referred To Contact Vascular Medicine Hang Arrington M.D. [address] [place] [phone] Phone: tel: fax: [facility] Referral ID Status Reason Start Date Expiration Date Visits Re quested Visits Authorized [id number] Closed 06/27/2025 12/27/2026 1 1 Scheduling Instructions 2:00 p.m. 06/28/2025 with me in thrombophilia Clinic Encounter Details Date Type Department Care Team (Late st Contact Info) Description 06/27/2025 Orders Only Department of Vascular Medicine in [place], [place] [address] [place] [phone] Hang Arrington M.D. [address] [place] [phone] Social History Tobacco Use Types Packs/Day Years Used Date Smoking Tobacco: Former Cigarettes 0 05/22/2014 - 10/14/2018 Passive Smoke Exposure: Current Smokeless Tobacco: Never Alcohol Use Standard Drinks/Week Comments Not Currently 3 (1 standard drink = 0.6 oz pure alcohol) Date nights maybe wednesday and wednesday [facility] Utilities Answer Date Recorded In the past 12 months has th e electric, gas, oil, or water company [...] your living situation today? 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 [address] [place] [address] Discharge Disposition: Home or Self Care 08/03/2025 3:30 PM CDT Appointment Department of Radiology, [facility], in [place], [place] [address] [place] [address] Hang Arrington M.D. [address] [place] [phone] 08/20/2025 10:00 AM VEGETABLE WORKER Telemedicine Department of Vascular Medicine in [place], [place] [address] [place] [address] Hang Arrington M.D. [address] [place] [phone] Scheduled Referrals Name Type Priority Associated Diagnoses Orde r Schedule Vascular Medicine office visit (clinic) Outpatient Referral Routine Expected: 06/28/2025, Expires: 09/26/2026 documented as of this encounter Visit Diagnoses Not on filedocumented in this encounter Care Teams Enrollment Advisor Relationship Specialty Start Date End Date Elsewhere, Pcp PCP - General Internal Medicine 04/12/24 documented as of this encounter
--- OUTSIDE RECORDS SUMMARY | 2025-07-30 18:46 | XMS_ITS | Encounter Summary ---
Author Organization [facility] Address [address] [place] [address] Care Team Providers Care Environmental Studies Program Director Name Role Phone Elsewhere, Pcp Primary Care Provider Unavailabl e Encounter Details Date Type Department Care Team (Latest Contact Info) Description 07/19/2025 Clinical Communication Department of Cardiovascular Medicine in [place], [place] [address] [place] [address] Site Operations ManagerCurtis M.D. Social History Tobacco Use Types Packs/Day Years Used Date Smoking Tobacco: Former Cigarettes 0 05/22/2014 - 10/14/2018 Passive Smoke Exposure: Current Smokeless Tobacco: Never Alcohol Use Standard Drinks/Week Comments Not Currently 3 (1 standard drink = 0.6 oz pure alcohol) Date nights maybe wednesday and wednesday [facility] [employer]ities Answer Date Recorded In the past 12 months has [facility] [employer], gas, oil, or water [employer] threatened to shut off services in your [...] your living situation today? 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 - 07/19/2025 12:28 PM CDT Images from the original note were not included. Comprehensive Cardiology Triage The following information has been gathered from review of available medical records as of 07/19/25for triage purposes.. It is not a comprehensive summary, and has not been verified by the patient. The Appointment Triage Team does not establish a relationship with the patient, nor manage the patient's care outside of an initial review for the purposes of pre-appointment triage. Summary Karo Gallegos Calos is internally referred by vascular for clinical question: Dyspnea on exertion and syncope. Pertinent Cardiac/Medical History Syncope Pulmonary embolism Pertinent Testing/Consults ECG 07/16/2025 labs CBC-unremarkable BMP-unremarkable 07/09/2025 Holter . 07/06/2025 CT chest MEDIASTINUM: No enlarged mediastinal or hilar lymph [...] for pulmonary infarct. Central airways are patent. 06/22/2025 TTE Normal biventricular size and function No significant valvular heart disease for visualized Normal pericardium Poorly visualized IVC 07/01/2024 TTE .1. Normal left ventricular chamber size, no regional wall motion abnormalities, calculated 2-D linear ejection fraction 65%. 2. Normal left ventricular geometry, normal filling pressure. 3. Normal right ventricular chamber size, normal systolic function, averaged right ventricular freewall longitudinal peak systolic strain, vendor calculated, is -25% (normal </= -25%), unable to detect peak tricuspid regurgitation velocity for pulmonary artery systolic pressure calculation. 4. No hemodynamically significant valvular heart disease. 5. No atrial level shunt by color flow imaging and agitated saline contrast injection. 6. No pericardial effusion. 7. Normal inferior vena cava size with normal inspiratory collapse (>50%). Additional OSM needed? Yes Outside Medical Records Request Facility Information if known (name, city/state, phone/fax): -[facility] Medical records needed and approximate date: -Echo images. Date: 06/22/2025 Date/timeframe records needed by: -Prior to CV appt Notification of records received: -No notification needed (provider will review at time of appt) * Telephone Encounter - Emily Maravilla - 07/19/2025 11:25 AM CDT Vas # [id number] documented in this encounter Plan of Treatment Upcoming Encounters Date Type Department Care Team (Late st Contact Info) Description 08/03/2025 2:30 PM CDT Appointment Department of Radiology, [facility], in [place], [place] [address] [place] [address] Hang Arrington M.D. [address] [place] [address] Discharge Disposition: Home or Self Care 08/03/2025 3:30 PM CDT Appointment Department of Radiology, [facility], in [place], [place] [address] [place] [address] Hang Arrington M.D. [address] [place] [phone] 08/20/2025 10:00 AM RACING CAR DRIVER Telemedicine Department of Vascular Medicine in [place], [place] [address] [place] [address] Hang Arrington M.D. [address] [place] [phone] documented as of this encounter Visit Diagnoses Not on filedocumented in this encounter Care Teams Environmental Studies Program Director Relationship Specialty Start Date End Date Elsewhere, Pcp PCP - General Internal Medicine 04/12/24 documented as of this encounter
--- OUTSIDE RECORDS SUMMARY | 2025-07-30 18:46 | XMS_ITS | Encounter Summary ---
Author Organization [facility] Address [address] [place] [address] Care Team Providers Care Director Of Patient Care Name Role Phone Elsewhere, Pcp Primary Care Provider Unavailabl e Reason for Referral * MRI/CAT/PET Scan (Routine) - Closed Specialty Diagnoses / Procedures Referred By Contac t Referred To Contact Radiology Diagnoses Embolus Pulmonary (HCC) Procedures CT Chest Angiogram and Pulmonary Arteries with IV Contrast Hang Arrington M.D. 200 [place] [address] Phone: tel: fax: [facility] Referral ID Status Reason Start Date Expiration Date Visits Re quested Visits Authorized [id number] Closed 07/05/2025 10/02/2025 1 1 Encounter Details Date Type Department Care Team (Late st Contact Info) Description 06/29/2025 Orders Only Department of Vascular Medicine in [place], [place] [address] [place] [phone] Hang Arrington M.D. [address] [place] [phone] Embolus Pulmonary (HCC) (Primary Dx) Social History Tobacco Use Types Packs/Day Years [...] your living situation today? 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 [address] [place] [address] Discharge Disposition: Home or Self Care 08/03/2025 3:30 PM CDT Appointment Department of Radiology, [facility], in [place], [place] [address] [place] [address] Hang Arrington M.D. [address] [place] [phone] 08/20/2025 10:00 AM PET CARE ASSOCIATE Telemedicine Department of Vascular Medicine in [place], [place] [address] [place] [address] Hang Arrington M.D. [address] [place] [phone] documented as of this encounter Results * CT Chest Angiogram [...] with Dr. Hang Arrington, pager [phone] or [phone] by Xochitl Amanda APRN at 10:03 am [...] pulmonaryinfarct. 3. Findings discussed with Dr. Hang Arrintgon, pager [phone] or [phone] Max Amanda APRN at 10:03 am on 07/06/2025. Hang Arrington M.D. IMG CT PROCEDURES Final Resu lt documented in this encounter Visit Diagnoses Diagnosis Embolus Pulmonary (HCC)- Primary Embolus Pulmonary (HCC) documented in this encounter Care Teams Director Of Patient Care Relationship Specialty Start Date End Date Elsewhere, Pcp PCP - General Internal Medicine 04/12/24 documented as of this encounter
--- OUTSIDE RECORDS SUMMARY | 2025-07-30 18:46 | XMS_ITS | Encounter Summary ---
Author Organization [facility] Address [address] [place] [address] Care Team Providers Care Nursery Hand Name Role Phone Elsewhere, Pcp Primary Care Provider Unavailabl e Reason for Referral * Outpatient (Routine) - Closed Specialty Diagnoses / Procedures Referred By Contac t Referred To Contact Vascular Medicine Hang Arrington M.D. [address] [place] [phone] Phone: tel: fax: [facility] Referral ID Status Reason Start Date Expiration Date Visits Re quested Visits Authorized [id number] Closed 07/17/2025 01/16/2027 1 1 Scheduling Instructions Request 11:00 a.m. appointment on 07/19/2025 Encounter Details Date Type Department Care Team (Late st Contact Info) Description 07/17/2025 Orders Only Department of Vascular Medicine in [place], [place] [address] [place] [phone] Hang Arrington M.D. [address] [place] [phone] Social History Tobacco Use Types Packs/Day Years Used Date Smoking Tobacco: Former Cigarettes 0 05/22/2014 - 10/14/2018 Passive Smoke Exposure: Current Smokeless Tobacco: Never Alcohol Use Standard Drinks/Week Comments Not Currently 3 (1 standard drink = 0.6 oz pure alcohol) Date nights maybe wednesday and wednesday [facility] Utilities Answer Date Recorded In the [...] living situation today? 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 [address] [place] [address] Discharge Disposition: Home or Self Care 08/03/2025 3:30 PM CDT Appointment Department of Radiology, [facility], in [place], [place] [address] [place] [address] Hang Arrington M.D. [address] [place] [phone] 08/20/2025 10:00 AM METAL STUD FRAMER Telemedicine Department of Vascular Medicine in [place], [place] [address] [place] [address] Hang Arrington M.D. [address] [place] [address] Scheduled Referrals Name Type Priority Associated Diagnoses Orde r Schedule Vascular Medicine office visit (clinic) Outpatient Referral Routine Expected: 07/19/2025, Expires: 10/16/2026 documented as of this encounter Visit Diagnoses Not on filedocumented in this encounter Care Teams Nursery Hand Relationship Specialty Start Date End Date Elsewhere, Pcp PCP - General Internal Medicine 04/12/24 documented as of this encounter
--- OUTSIDE RECORDS SUMMARY | 2025-07-30 18:46 | XMS_ITS | Encounter Summary ---
Author Organization [facility] Address [address] [place] [address] Care Team Providers Care Net C Developer Name Role Phone Elsewhere, Pcp Primary Care Provider Unavailabl e Reason for Visit * Reason Onset Date Comments Phone Contact 07/02/2025 Encounter Details Date Type Department Care Team (Late st Contact Info) Description 07/02/2025 Clinical Communication Department of Vascular Medicine in [place], [place] [address] [place] [phone] Hang Arrington M.D. [address] [place] [phone] Phone Contact Social History Tobacco Use Types Packs/Day Years Used Date Smoking Tobacco: Former Cigarettes 0 05/22/2014 - 10/14/2018 Passive Smoke Exposure: Current Smokeless Tobacco: Never Alcohol Use Standard Drinks/Week Comments Not Currently 3 (1 standard drink = 0.6 oz pure alcohol) Date nights maybe wednesday and wednesday [facility] Utilities Answer Date Recorded In the past 12 months has [employer], gas, oil, or water [employer] threatened to shut off services in your [...] your living situation today? 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 [address] [place] [phone] Discharge Disposition: Home or Self Care 08/03/2025 3:30 PM CDT Appointment Department of Radiology, [facility], in [place], [place] 200 [place] [address] Hang Arrington M.D. [address] [place] [phone] 08/20/2025 10:00 AM MENTAL HYGIENIST Telemedicine Department of Vascular Medicine in [place], [place] [address] [place] [address] Hang Arrington M.D. [address] [place] [phone] documented as of this encounter Visit Diagnoses Not on filedocumented in this encounter Care Teams Net C Developer Relationship Specialty Start Date End Date Elsewhere, Pcp PCP - General Internal Medicine 04/12/24 documented as of this encounter
--- OUTSIDE RECORDS SUMMARY | 2025-07-30 18:46 | XMS_ITS | Encounter Summary ---
Author Organization [facility] Address [address] [place] [id number] Care Team Providers Care Tumble Tailstock Turret Lathe Operator Name Role Phone Elsewhere, Pcp Primary Care Provider Unavailabl e Encounter Details Date Type Department Care Team (Late st Contact Info) Description 06/24/2025 Documentation Department of Vascular Medicine in [place], [place] [address] [place] [phone] Hang Arrington M.D. [address] [place] [phone] Social History Tobacco Use Types Packs/Day Years Used Date Smoking Tobacco: Former Cigarettes 0 05/22/2014 - 10/14/2018 Passive Smoke Exposure: Current Smokeless Tobacco: Never Alcohol Use Standard Drinks/Week Comments Not Currently 3 (1 standard drink = 0.6 oz pure alcohol) Date nights maybe wednesday and wednesday [facility] Utilities Answer Date Recorded In the past 12 months has [employer], gas, oil, or water [employer] threatened to shut off services in your [...] your living situation today? 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 - 06/24/2025 9:57 AM CDT This past I received a call from local emergency room in [place] regarding Ms. El Live She had presented there with concerns of new PE. They did see new pulmonary embolus on CT a of the chest. Troponin was negative and there was no DVT. She had been on low-molecular weight heparin since March. Last year I placed her on Arixtra and to my knowledge had not had any recurrences on Arixtrasince last May. Uncertain if she has missed any doses or not or if current dosing is appropriate for weight. She was admitted locally and on Wednesday I spoke with the hospitalist taking care of her. 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 Discussed confirming whether she was getting 1 milligram/kilogram twice daily. Discussed anticoagulant options if this dosing is confirmed. She will undergo further evaluation inthe current hospitalization and I made myself available for follow-up post hospital next week or any time after that when necessary. documented in this encounter Plan of Treatment Upcoming Encounters Date Type Department Care Team (Late st Contact Info) Description 08/03/2025 2:30 PM CDT Appointment Department of Radiology, [facility] in [place], [place] [address] [place] [phone] Hang Arrington M.D. [address] [place] [phone] Discharge Disposition: Home or Self Care 08/03/2025 3:30 PM CDT Appointment Department of Radiology, [facility] in [place], [place] [address] [place] [phone] Hang Arrington M.D. [address] [place] [phone] 08/20/2025 10:00 AM PALLIATIVE CARE NURSE Telemedicine Department of Vascular Medicine in [place], [place] [address] [place] [phone] Hang Arrington M.D. [address] [place] [phone] documented as of this encounter Visit Diagnoses Not on filedocumented in this encounter Care Teams Tumble Tailstock Turret Lathe Operator Relationship Specialty Start Date End Date Elsewhere, Pcp PCP - General Internal Medicine 04/12/24 documented as of this encounter
--- OUTSIDE RECORDS SUMMARY | 2025-07-30 18:48 | XMS_ITS | Encounter Summary ---
Author Organization [place] Address [facility] [place] [address] Care Team Providers Care Dental Hygiene Professor Name Role Phone [facility] Primary Care Provider Leatha Wagner APRN CHIP CRUSHER OPERATOR Unavailable [phone] Mariana AcostaC Unavailable [phone] Sarah Juares MD Primary Care Provider [phone] Lucas Nuno MD Unavailable +-6 Mariana AcostaC Unavailable [phone] Lucas Nuno MD Unavailable +-6 20 Mariana Acosta PA-C Unavailable [phone] Purvi Jeong [facility] Unavailable [phone] Lucas Nuno MD Unavailable +-6 Meghan Cox [facility] Unavailable [phone] Encounter Details Date Type Department Care Team (Late st Contact Info) Description 10/23/2021 [facility] [address] [place] [address] Leatha Wagner APRN CHIP CRUSHER OPERATOR [address] [place] [address] Epigastric pain (Primary Dx); Gastroesophageal reflux disease with esophagitis, unspecified whether hemorrhage; RUQ abdominal pain Social History Tobacco Use Types Packs/Day Years Used Date Smoking Tobacco: Former Smokeless Tobacco: Never Alcohol Use Standard Drinks/Week Comments Not Currently 0 (1 standard drink = 0.6 oz pur e alcohol) [place] Depression Scale Answer Date Recorded [place] Depression Score 1 07/06/2021 Last EPDS Self Harm Result Not on file 07/06 Comments No Sex and Gender Information Value Date Recorded Sex Assigned at Female 06/03/2022 7:36 AM CDT 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 DEPARTMENT STORE GENERAL MANAGER Gender Identity Female 06/03/2022 7:36 AM [...] documented as of this encounter Care Teams Dental Hygiene Professor Relationship Specialty Start Date End Date [facility] [address] [facility] [place] [address] PCP - General 01/02/14 03/23/23 [place] [address] [place] [address] PCP - General Family Medicine 03/13/25 Leatha Wagner APRN CHIP CRUSHER OPERATOR [address] [place] [address] Assigned Surgical Provider 11/02/21 09/04/22 Mariana Acosta PA-C [address] [address] Assigned Surgical Provider 09/05/22 12/09/23 Lucas Nuno MD [address] [address] Assigned Surgical Provider 12/10/23 01/07/24 Mariana Acosta PA-C [address] [address] Assigned Surgical Provider 01/08/24 03/08/24 Lucas Nuno MD [facility] [address] [address] Assigned Surgical Provider 03/09/24 12/09/24 Mariana Acosta PA-C [address] [address] Assigned Surgical Provider 12/10/24 02/06/25 Purvi Jeong [facility] [address] [place] [address] [phone] Pharmacist Pharmacist Patrol Community Service Officer 01/03/25 Lucas Nuno MD [address] [phone] Assigned Surgical Provider 02/07/25 Meghan Cox [facility] [address] [place] [address] [phone] Pharmacist Pharmacist Patrol Community Service Officer 03/20/25 documented as of this encounter
--- OUTSIDE RECORDS SUMMARY | 2025-07-30 18:48 | XMS_ITS | Encounter Summary ---
Author Organization [place] Address [facility] [place] [address] Care Team Providers Care Center Mgr Name Role Phone [facility] Primary Care Provider Leatha Wagner APRN [facility] Unavailable [phone] Mariana Acosta-C Unavailable [phone] Sarah Juares MD Primary Care Provider [phone] Lucas Nuno MD Unavailable +-38 Mariana AcostaC Unavailable [phone] Lucas Nuno MD Unavailable +- 68 Mariana AcostaC Unavailable [phone] Purvi Jeong [facility] Unavailable [phone] Lucas Nuno MD Unavailable +- 99 Meghan Cox [facility] Unavailable [phone] Encounter Details Date Type Department Care Team (Late st Contact Info) Description 10/22/2021 [facility] [address] [place] [address] HespenGiuliana Social History Tobacco Use Types Packs/Day Years Used Date Smoking Tobacco: Former Smokeless Tobacco: Never Alcohol Use Standard Drinks/Week Comments Not Currently 0 (1 standard drink = 0.6 oz pur e alcohol) [place] Depression Scale Answer Date Recorded [place] Depression Score 1 07/06/2021 Last EPDS Self Harm Result Not on file 07/06 Comments No Sex and Gender Information Value Date Recorded Sex Assigned at Female 06/03/2022 7:36 AM CDT 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 Gender Identity Female 06/03/2022 7:36 AM CDT [...] documented as of this encounter Care Teams Center Mgr Relationship Specialty Start Date End Date [facility] [address] [facility] [place] [address] PCP - General 01/02/14 03/23/23 [place] [address] [place] [address] PCP - General Family Medicine 03/13/25 Leatha Wagner APRN [facility] [address] [place] [address] Assigned Surgical Provider 11/02/21 09/04/22 Mariana Acosta PA-C [address] [place] [phone] Assigned Surgical Provider 09/05/22 12/09/23 Lucas Nuno MD [address] [address] Assigned Surgical Provider 12/10/23 01/07/24 Mariana Acosta PA-C [address] [address] Assigned Surgical Provider 01/08/24 03/08/24 Lucas Nuno MD [address] [address] Assigned Surgical Provider 03/09/24 12/09/24 Mariana Acosta PA-C [address] [address] Assigned Surgical Provider 12/10/24 02/06/25 Purvi Jeong [facility] [address] [place] [phone] Pharmacist Pharmacist Bench Scientist 01/03/25 Lucas Nuno MD [address] [place] [phone] Assigned Surgical Provider 02/07/25 Meghan Cox [facility] [address] [place] [phone] Pharmacist Pharmacist Bench Scientist 03/20/25 documented as of this encounter
--- OUTSIDE RECORDS SUMMARY | 2025-07-30 18:48 | XMS_ITS | Clinical Summary ---
Author Organization [employer] [facility] Address [facility] [place] [address] Care Team Providers Care Building Stonecutter Name Role Phone Pamela Jara OCCUPATIONAL THERAPY ASSIST Unavailable Unavaila Paulina Stubbs RN Unavailable [phone] Jose Tran MD Primary Care Provider [phone] Allergies Active Allergy Reactions Criticality Noted Date Comments Azithromycin *Unknown 01/05/2019 Hydromorphone Anxiety,*Unknown 10/19/2016 Nsaids (Non-Steroidal Anti-Inflammatory Drug) Other - Describe In Comment Field Low 11/25/2016 Patient had bariatric surgery and should not ever have NSAIDs due to high risk for gastric ulcers. Penicillins Rash Low 01/02/2014 PENICILLINS Tramadol Rash Low 05/07/2023 Medications multivitamin (MVI) tablet Take 1 tablet by mouth once daily. 0 Active ferrous sulfate 325 mg delayed release tablet Take 1 tablet by mouth once daily. Take with Vitamin C 0 Active folic acid 1 mg tablet Take 2 mg by mouth two times daily. Active pantoprazole (PROTONIX) 40 mg delayed-release tabletIndications :Chronic gastritis, presence of bleeding unspecified, unspecified gastritis type Take 1 Tablet (40 mg) by mouth two times daily before meals. 90 Tablet 3 024 Active Additional Information Patient taking differently:40 mg OralONCE DAILY BEFORE A MEAL, Reported on 07/26/2025 escitalopram oxalate 10 mg tabletIndications :Anxiety Take 1 Tablet (10 mg) by mouth once daily in the morning. 90 Tablet 1 Active ascorbic acid (vitamin C) (Vitamin C) 1,000 mg tablet Take 1,000 mg by mouth once daily. Active tiZANidine (ZANAFLEX) 4 mg tabletIndications :Muscle spasm TAKE 1 TABLET (4 MG) BY MOUTH EVERY 6 HOURS IF NEEDED FOR MUSCLE SPASMS 30 Tablet 2 Active Additional Information Patient taking differently:4 mg OralBEDTIME, Reported on 07/26/2025 doxycycline monohydrate 100 mg capsuleIndication s:Rosacea Take 1 Capsule (100 mg) by mouth once daily. 90 Capsule Active HYDROcodone-aceta minophen (5-325 mg/tablet)Indicat ions:Pulmonary embolism, unspecified chronicity, unspecified pulmonary embolism type, unspecified whether acute cor pulmonale present (HC) Take 1-2 Tablets by mouth 4 times daily if needed for Pain. Max acetaminophen dose: 4000 mg in 24 hrs. 15 Tablet Active Additional Information Patient taking differently:1-2 Tablet Oral QID PRN, Pain, Takes 1 tablet at bedtimeMax acetaminophen dose: 4000 mg in 24 hrs., Reported on 07/26/2025 ondansetron (ZOFRAN ODT) 8 mg disintegrating tabletIndications :Nausea and vomiting, unspecified vomiting type Place 1 Tablet (8 mg) on the tongue two times daily. 15 Tablet Active OLANzapine (ZYPREXA) 2.5 mg tabletIndications :Nausea and vomiting, unspecified vomiting type Take 1 Tablet (2.5 mg) by mouth every 8 hours if needed (nausea) for up to 10 doses. 10 Tablet Active cyanocobalamin (VITAMIN B12) 1,000 mcg tablet Take 1,000 mcg by mouth once daily. Active enoxaparin (LOVENOX) 150 mg/mL injectionIndicati ons:Pulmonary embolism, unspecified chronicity, unspecified pulmonary embolism type, unspecified whether acute cor pulmonale present (HC) Inject 125 mg subcutaneous every 12 hours. 20 mL Active cephalexin 500 mg capsuleIndication s:UTI (urinary tract infection), uncomplicated Take 1 Capsule (500 mg) by mouth two times daily for 7 days. 14 Capsule 2024 Active cyanocobalamin (VITAMIN B12) 1,000 mcg sublingual tabletIndications :B12 deficiency Place 2.5 Tablets (2,500 mcg) under the tongue once daily for 7 days. 18 Tablet 06/25/20 25 11:21 AM CDT 2024 enoxaparin (LOVENOX) 150 mg/mL injectionIndicati ons:Pulmonary embolism, unspecified chronicity, unspecified pulmonary embolism type, unspecified whether acute cor pulmonale present (HC) Inject 150 mg subcutaneous every 12 hours for 14 days. 28 mL 06/25/20 11:21 AM CDT 2024 tiZANidine (ZANAFLEX) 4 mg tabletIndications :Muscle spasm Take 1 Tablet (4 mg) by mouth every 6 hours if needed for Muscle Spasm. 30 Tablet 06/25/20 11:21 AM CDT 025 2024 Discontinued(R eorder (E-cancel not sent)) HYDROcodone-aceta minophen (5-325 mg/tablet)Indicat ions:Pulmonary embolism, unspecified chronicity, unspecified pulmonary embolism type, unspecified whether acute cor pulmonale present (HC) Take 1-2 Tablets by mouth 4 times daily if needed for Pain. Max acetaminophen dose: 4000 mg in 24 hrs. 15 Tablet 06/25/20 11:21 AM CDT 2024 Discontinued(R eorder (E-cancel not sent)) tiZANidine (ZANAFLEX) 4 mg tabletIndications :Muscle spasm Take 1 Tablet (4 mg) by mouth every 6 hours if needed for Muscle Spasm. 30 Tablet 2 2024 Discontinued doxycycline monohydrate 100 mg capsuleIndication s:Rosacea Take 1 Capsule (100 mg) by mouth once daily. 90 Capsule 2024 Discontinued(* Availability/F ormulary change/Cost of medication) enoxaparin (LOVENOX) 150 mg/mL injectionIndicati ons:Pulmonary embolism, unspecified chronicity, unspecified pulmonary embolism type, unspecified whether acute cor pulmonale present (HC) Inject 150 mg subcutaneous every 12 hours. 20 mL 025 2024 Discontinued Hospital, Clinic, or Other Facility Administered Medication Ordered Dose Route Frequency Start Date End Date Status cyanocobalamin (VITAMIN B12) 1,000 mcg/mL injection 1,000 mcgIndications:B12 deficiency 1000 mcg IM Q 2 WEEKS 07/03/2025 6 Active cyanocobalamin (VITAMIN B12) 1,000 mcg/mL injection 1,000 mcgIndications:B12 deficiency 1000 mcg IM Q 4 WEEKS (28 DAYS) 03/17/2025 5 Discontinued Active Problems Patient Care Coordination No te Formatting of this note migh t be different from the original. 10/13/2016 LS 273 (5'8; 41.61) Hugo Problem Noted Date Diagnosed Date Nausea & vomiting 07/26/2025 Macrocytic anemia 06/21/2025 Homocysteinemia 06/21/2025 TOMAS (generalized anxiety disorder) 06/21/2025 Class 2 obesity due to exces s calories without serious comorbidity with body mass index (BMI) of 39.0 to 39.9 in adult 06/21/2025 Chronic GERD 06/21/2025 Thrombophilia 03/16/2025 Syncope and collapse 07/19/2024 Elevated [...] sleeve gastrectomy 10/23/2021 Overview (05/25/2024): Sleeve 2016- [facility] Last Assessment & Plan: 10% improvement of [...] Encounters Date Type Department Care Team Description 07/30/2025 12:59 PM CDT - 07/30/2025 1:50 PM CDT Emergency [facility] [place] [address] [place] [address] 07/26/2025 11:34 AM CDT - 07/27/2025 11:17 AM CDT Hospital Encounter [address] [address] Brooks Vidal MD Hospitalists, [facility] Tray, MD Diann Trotter Vidu Bala, MBBS Nausea and vomiting, unspecified vomiting type (Primary Dx); Pulmonary embolism, unspecified chronicity, unspecified pulmonary embolism type, unspecified whether acute cor pulmonale present (HC) Discharge Disposition: Home Self Care 07/25/2025 5:35 PM CDT - 07/25/2025 10:56 PM CDT Emergency [address] [address] Amari Myrick MD Nausea and vomiting, unspecified vomiting type (Primary Dx); Hematuria, unspecified type; Anxiety; Retained tampon, initial encounter Discharge Disposition: Home Self Care 07/25/2025 Travel 07/20/2025 [place] [facility] [place] [id number] [place], [place] [address] [address] Jose Tran MD Refill Request (doxycycline monohydrate 100 mg capsule /tiZANidine (ZANAFLEX) 4 mg tablet /HYDROcodone-acetam inophen (5-325 mg/tablet) /Levonox 150mg/) 07/20/2025 [place] [facility] [place] [address] [place] [address] Jose Tran MD Refill Request (Tizanidine) 07/16/2025 4:51 PM CDT - 07/16/2025 7:48 PM CDT Emergency [address] [address] Laurent Zuniga MD Syncope, unspecified syncope type (Primary Dx); Pleuritic chest pain Discharge Disposition: Home Self Care 07/16/2025 Travel 07/02/2025 11:40 AM CDT Telemedicine [address] [address] Jose Tran MD Medication Management 07/02/2025 Travel 06/26/2025 Patient Outreach [address] [address] Lizzette Stark, ELIZABETH Primary RN Care Management; Hospital F/U (Pulmonary Embolism, DOD: 06/25/25, LACE+: 45) 06/21/2025 11:21 AM CDT - 06/25/2025 2:14 PM CDT Hospital Encounter [place] [id number] [place] [address] Brooks Vidal MD Hospitalists, [facility] Jaylin, MD Clarice Soto Pezhman, MD Pulmonary embolism, unspecified chronicity, unspecified pulmonary embolism type, unspecified whether acute cor pulmonale present (HC) (Primary Dx); B12 deficiency; Muscle spasm Discharge Disposition: Home Self Care 06/21/2025 Travel 06/15/2025 5:20 PM CDT - 06/15/2025 6:05 PM CDT Emergency [facility] [place] [address] [place] [address] 06/05/2025 12:20 PM CDT Telemedicine [address] [address] Sarah Juares MD Weight (Insurance no longer covers Zepbound, and patient would like to discuss other options); Telehealth; Chest Pain (Follow up [place] emergency room visit recently) 06/05/2025 Travel 05/25/2025 Travel from Last 3 Months Immunizations Immunization Administration [...] Years Used Date Smoking Tobacco: Former Cigarettes 1.1 5.8 2 - 2015 Smokeless Tobacco: Never Tobacco Cessation:Counseling Given: Not Answered Alcohol Use Standard Drinks/Week Comments Not Currently 3 (1 standard drink = 0.6 oz pur e alcohol) PHQ-2 Answer Date Recorded PHQ-2 TOTAL SCORE 0 01/23/2025 Social Connections Answer Date Recorded Do you often feel lonely or isolated from those around you? 0 07/26/2025 Financial Resource Strain Answer Date R ecorded Difficulty of Paying Living Expenses 3 05/23/2024 Difficulty of Paying Living Expenses Not on file 05/23/2024 Food Insecurity Answer Date Recorded Do you worry your food will run out before you are able to buy more? 1 07/26/2025 Transportation Needs Answer Date Record ed Does lack of transportation keep you from medica l appointments? 1 07/26/2025 Does lack of transportation keep you from work, meetings or getting things that you need? 1 07/26/2025 Housing Stability Answer Date Recorded What is your housing situation today? 1 07/26/2025 Interpersonal Safety Answer Date Record ed Are you being hit, kicked, p ushed or yelled at (see row info)? No 07/26/2025 Interpersonal Safety Abuse 12 - 18 Not on file 07/26/2025 Interpersonal Safety Ambulatory Vulnerability No t on file 07/26/2025 Utilities Answer Date Recorded Do you have trouble paying f or utilities (for example, heat, electricity, water, phone)? 1 07/26/2025 Comments No Sex and Gender Information Value Date Recorded Sex Assigned at Not on file Legal Sex Female 7:30 AM DIRECTOR OF RESOURCE DEVELOPMENT Gender Identity Not on file Sexual Orientation Not on file Obstetrics History Para Term AB IAB SAB Ectopic Multiple Livin g Live Births 1 0 0 0 0 0 0 0 0 0 Date Outcome GA Total Labor Labor/2nd/3rd Weight Sex Type Anes PTL Mayuri A1 A5 Name Clin Last Filed Vital Signs Vital Sign Reading Time Taken Comments Blood Pressure 135/92 07/27/2025 10:36 AM CDT Pulse 70 07/27/2025 10:36 AM CDT Temperature 36.1 C (97 F) 07/27/2025 10:36 AM CDT Respiratory Rate 16 07/27/2025 10:36 AM CDT Oxygen Saturation 99% 07/27/2025 10:36 AM CDT Inhaled Oxygen Concentration - - Weight 123.4 kg (272 lb) 07/26/2025 11:33 AM CDT Height 175.3 cm (5' 9) 07/26/2025 11:33 AM CDT Body Mass Index 40.17 07/26/2025 11:33 AM CDT Plan of Treatment Upcoming Encounters Date Type Department Care Team (Late st Contact Info) Description 08/16/2025 1:00 PM CDT Nurse/Clinic Staff Only [facility] [address] [place] [address] 09/14/2025 1:00 PM DIRECTOR OF RESOURCE DEVELOPMENT Nurse/Clinic Staff Only [facility] [address] [place] [address] 10/16/2025 1:00 PM DIRECTOR OF RESOURCE DEVELOPMENT Nurse/Clinic Staff Only [facility] [address] [place] [address] 11/16/2025 1:00 PM DIRECTOR OF RESOURCE DEVELOPMENT Nurse/Clinic Staff Only [facility] [address] [place] [address] 12/14/2025 1:00 PM DIRECTOR OF RESOURCE DEVELOPMENT Nurse/Clinic Staff Only [facility] [address] [place] [address] 01/11/2026 1:00 PM CDT Nurse/Clinic Staff Only [facility] [address] [place] [address] 02/12/2026 1:00 PM CDT Nurse/Clinic Staff Only [facility] [address] [place] [address] 03/14/2026 1:00 PM CDT Nurse/Clinic Staff Only [facility] [address] [place] [address] Health Maintenance Due Date Last Done Comments Hepatitis B series for 19+ (3 of 3 - 3-dose series) 12/09/2006 10/14/2006, 06/09/2006 HIV for age 15-65 2009 Hepatitis C screening for age 18-79 2012 HPV series for age 9-45 (3 - 3-dose series) 12/09/2012 08/31/2012, 06/08/2012 Pap test for age 21-65 12/20/2023 (Verified in Care Everywhere or Patient Record), 11/14/2018, 06/26/2016 COVID-19 vaccine series ( season) 2025 12/26/2021, 06/26/2021, 05/27/2021 Influenza Vaccine (#1) 2025 07/20/2019, 2018 Depression screening for age 12+ 01/23/2026 01/23/2025 BMI (ht and wt on same day) for age 18+ 03/16/2026 03/16/2025, 07/06/2024, 05/23/2024, Additional history exists Tetanus booster 05/14/2031 05/14/2021, 09/17, 06/09/2006 RSV vaccine for adults or (1 - 1-dose 75+ series) 2069 Pneumococcal series for age 6-49 Aged Out No longer eligible based on patient's age to complete this topic Medical Devices Implanted Type Area Graphite Grinder Device Identifier Shelf Expiration Date Model / Serial / Lot Mesh Ventral 60 Seamguard [employer] Flex - [id number] Implanted:Qty: 1 on 10/13/2016 by Rajat Arias MD at [facility] N/A: Stomach W L [place] 01/15/2019 [id number] / / [id number] Mesh Ventral 60 Seamguard [employer] Flex - [id number] Implanted:Qty: 3 on 10/13/2016 by Rajat Arias MD at [facility] N/A: Stomach W L [place] 07/17/2019 [id number] / / [id number] Mesh Ventral 60 Seamguard [employer] Flex - [id number] Implanted:Qty: 1 on 10/13/2016 by Rajat Arias MD at [facility] N/A: Stomach W L [place] 12/15/2018 [id number] / / [id number] Procedures Procedure Name Priority Date/Time Associated Diagnosis Comments ALT (SGPT) Early AM 07/27/2025 6:48 AM CDT AST (SGOT) Early AM 07/27/2025 6:48 AM CDT HEMOGLOBIN Early AM 07/27/2025 5:29 AM CDT DRUG SCREEN RAPID URINE INHOUSE Timed 07/27/2025 4:22 AM CDT URINE CULTURE RUBENS 07/27/2025 4:22 AM CDT URINALYSIS MICROSCOPIC Timed 07/27/2025 4:22 AM CDT UA W/ SEDIMENT EXAM REFLEXED PER CRITERIA Today 07/27/2025 4:22 AM CDT EKG 12 LEAD STAT 07/26/2025 12:17 PM CDT HEPATIC FUNCTION PANEL RUBENS 07/26/2025 11:49 AM CDT CBC WITH AUTO DIFFERENTIAL RUBENS 07/26/2025 11:49 AM CDT PROTIME-INR RUBENS 07/26/2025 11:49 AM CDT BASIC METABOLIC PANEL RUBENS 07/26/2025 11:49 AM CDT CBC WITH AUTO DIFFERENTIAL RUBENS 07/26/2025 11:49 AM CDT EXTRA TUBE PERALTA Today 07/26/2025 11:49 AM CDT EXTRA TUBE LAVENDER Today 07/26/2025 1 1:49 AM CDT EXTRA TUBE LIGHT GREEN Today 07/26/2025 11:49 AM CDT EXTRA TUBE BLUE Today 07/26/2025 11:[address] ABDOMEN PELVIS STONE PROTOCOL WO STAT 07/25/2025 9:15 PM CDT URINALYSIS MICROSCOPIC STAT 07/25/2025 7:57 PM CDT UA W/ SEDIMENT EXAM REFLEXED PER CRITERIA STAT 07/25/2025 7:57 PM CDT CBC WITH AUTO DIFFERENTIAL STAT 07/25/2025 6:25 PM CDT LIPASE STAT 07/25/2025 6:25 PM CDT HEPATIC FUNCTION PANEL STAT 07/25/2025 6:25 PM CDT CBC WITH AUTO DIFFERENTIAL STAT 07/25/2025 6:25 PM CDT BASIC METABOLIC PANEL STAT 07/25/2025 6:25 PM CDT EKG 12 LEAD STAT 07/25/2025 6:[address] CHEST PE STUDY STAT 07/16/2025 6:4 8 PM CDT CBC WITH AUTO DIFFERENTIAL STAT 07/16/2025 5:57 PM CDT PRO-BNP STAT 07/16/2025 5:57 PM CDT TROPONIN T (HS) ACUTE W/2HR REFLEX STAT 07/16/2025 5:57 PM CDT ,SERUM QUALITATIVE STAT 07/16/2025 5:57 PM CDT BASIC METABOLIC PANEL STAT 07/16/2025 5:57 PM CDT CBC WITH AUTO DIFFERENTIAL STAT 07/16/2025 5:57 PM CDT EKG 12 LEAD STAT 07/16/2025 4:34 PM CDT PLATELET COUNT Early AM 06/25/2025 6:45 AM CDT HEMOGLOBIN Early AM 06/25/2025 6:45 AM CDT HEMOGLOBIN STAT 06/24/2025 9:00 AM CDT TROPONIN T (HS) ONE TIME Timed 06/23/2025 6:37 AM CDT TROPONIN T (HS) ACUTE W/2HR REFLEX STAT 06/23/2025 3:55 AM CDT CREATININE Early AM 06/23/2025 3:55 AM CDT WHITE BLOOD COUNT Early AM 06/23/2025 3:5 5 AM CDT PLATELET COUNT Early AM 06/23/2025 3:55 AM CDT HEMOGLOBIN Early AM 06/23/2025 3:55 AM CDT EKG 12 LEAD STAT 06/23/2025 3:48 AM CDT APTT Timed 06/22/2025 3:[address] NECK SOFT TISSUE W STAT 06/22/2025 3:[address] VENOGRAM HEAD W STAT 06/22/2025 3: 33 PM CDT VITAMIN B12 RUBENS 06/22/2025 10:51 AM CDT FOLIC ACID STAT 06/22/2025 10:51 AM CDT ECHO TTE COMPLETE WO CONTRAST STAT 06/22/2025 8:14 AM CDT APTT Today 06/22/2025 6:51 AM CDT HEMOGLOBIN Early AM 06/22/2025 6:51 AM CDT PLATELET COUNT Early AM 06/22/2025 6:51 AM CDT APTT STAT 06/22/2025 12:16 AM CDT APTT RUBENS 06/21/2025 4:49 PM CDT PROTIME-INR RUBENS 06/21/2025 4:49 PM CDT HEMOGLOBIN RUBENS 06/21/2025 4:23 PM CDT PLATELET COUNT RUBENS 06/21/2025 4:23 PM CDT TROPONIN T (HS) ONE TIME Timed 06/21/2025 3:26 PM CDT US VENOUS LOWER EXTREMITY BILATERAL STAT 06/21/2025 3:[address] CHEST PE STUDY STAT 06/21/2025 2:3 9 PM CDT CBC WITH AUTO DIFFERENTIAL STAT 06/21/2025 12:38 PM CDT TROPONIN T (HS) ACUTE W/2HR REFLEX STAT 06/21/2025 12:38 PM CDT ,SERUM QUALITATIVE STAT 06/21/2025 12:38 PM CDT BASIC METABOLIC PANEL STAT 06/21/2025 12:38 PM CDT CBC WITH AUTO DIFFERENTIAL STAT 06/21/2025 12:38 PM CDT EKG 12 LEAD STAT 06/21/2025 12:06 PM CDT EKG 12 LEAD STAT 06/21/2025 11:07 AM CDT [employer]ERONAUTICAL PROJECT ENGINEER THIN PREP PAP SCREEN IMAGED Routine 11/14/2018 3:00 PM DIRECTOR OF RESOURCE DEVELOPMENT Uses contraception from Last 3 Months or Most Recently Relevant to Health Maintenance Results * ALT (SGPT) (07/27/2025 6:48 AM CDT) ALT (SGPT) 21 10 - 35 IU/L 07/27/2025 7:48 AM CDT [facility] Blood BLOOD SPECIMEN / Unknown Butterfly / Unknown 07/27/2025 6:48 AM CDT 07/27/2025 7:25 AM CDT us Zeynep Feliz MD CHEMISTRY Final Res ult [facility] [address] [place] [id number] * AST (SGOT) (07/27/2025 6:48 AM CDT) AST (SGOT) 34 10 - 35 IU/L 07/27/2025 7:48 AM CDT [facility] Blood BLOOD SPECIMEN / Unknown Butterfly / Unknown 07/27/2025 6:48 AM CDT 07/27/2025 7:25 AM CDT us Zeynep Feliz MD CHEMISTRY Final Res ult Performing Organization Address [facility]/ZIP Co de Phone Number [address] [address] * (ABNORMAL) HEMOGLOBIN (07/27/2025 5:29 AM CDT) Only the most recent of6 resultswithin the time period is included. Pathologist [facility] HEMOGLOBIN 9.8(L) 12.0 - 16.0 g/dL 07/27/2025 6:05 AM CDT [facility] MCV 109(H) 80 - 100 fL 07/27/2025 6:05 AM CDT [facility] Blood BLOOD SPECIMEN / Unknown Venipuncture / Unknown 07/27/2025 5:29 AM CDT 07/27/2025 5:58 AM CDT us Zeynep Feliz MD HEMATOLOGY Final Res ult Performing Organization Address [facility]/ZIP Co de Phone Number [address] [address] * DRUG SCREEN RAPID URINE INHOUSE (07/27/2025 4:22 AM CDT) Pathologist [facility] THC METABOLITES,RICHA L Not Detected Not Detected 07/27/2025 10:00 AM CDT [facility] PCP,QUAL Not Detected Not Detected 07/27/2025 10:00 AM CDT [facility] COCAINE,QUAL Not Detected Not Detected 07/27/20 10:00 AM CDT [facility] METHAMPHETAMINE , QUALITATIVE Not Detected Not Detected 07/27/2025 10:00 AM CDT [facility] OPIATES,QUAL Not Detected Not Detected 07/27/20 10:00 AM CDT [facility] AMPHETAMINE, QUALITATIVE Not Detected Not Detected 07/27/2025 10:00 AM CDT [facility] BENZODIAZEPINES ,QUAL Not Detected Not Detected 07/27/2025 10:00 AM CDT [facility] TRICYCLICS,QUAL Not Detected Not Detected 07/27 10:00 AM CDT [facility] METHADONE, QUALITATIVE Not Detected Not Detected 07/27/2025 10:00 AM CDT [facility] BARBITURATES,QU AL Not Detected Not Detected 07/27/2025 10:00 AM CDT [facility] OXYCODONE, QUALITATIVE Not Detected Not Detected 07/27/2025 10:00 AM CDT [facility] BUPRENORPHINE, QUALITATIVE Not Detected Not Detected 07/27/2025 10:00 AM CDT [facility] Urine URINE SPECIMEN / Unknown Non-Blood / Unknown 07/27/2025 4:22 AM CDT 07/27/2025 4:27 AM CDT Narrative [facility] - 07/27/2025 10:00 AM CDT Please Note: This is a screening test only, all results are unconfirmed and should be used for medical purposes only. Unconfirmed results must not be used for non-medical purposes (e.g., employment testing, legal testing). Suggest analyte specific confirmation for all non-negative results. Specimens will be held for 24 hours if additional testing is needed. The following threshold concentrations are used for this analysis: Drug Screening Threshold Buprenorphine 10 ng/mL PCP 25 ng/mL THC Metabolites 50 ng/mL *Opiates 100 ng/mL Oxycodone 100 ng/mL Cocaine 150 ng/mL Benzodiazepines 150 ng/mL Methadone 200 ng/mL Barbiturates 200 ng/mL Tricyclic Antidepressants 300 ng/mL Amphetamines 500 ng/mL Methamphetamines 500 ng/mL *Includes related compounds: Codeine 50 ng/mL Heroin 100 ng/mL Morphine 100 ng/mL Hydrocodone 400 ng/mL Hydromorphone 800 ng/mL Venlafaxine (Effexor) is a known cross reactant in the PCP assay. If clinically indicated, order PCP confirmation. us Tasha Tidwell MBBS URINE Final Res ult [facility] [address] [place] [id number] * (ABNORMAL) URINALYSIS MICROSCOPIC (07/27/2025 4:22 AM CDT) Only the most recent of2 resultswithin the time period is included. RBC 0-2 0-2, None Seen /HPF 07/27/2025 4:45 AM CDT [facility] WBC 11-25(A) 0-2, 3-5, None Seen /HPF 07/27/2025 4:45 AM CDT [facility] BACTERIA Rare None Seen, Rare, Few Bacteria/ HPF 07/27/2025 4:45 AM CDT [facility] EPITHELIAL CELLS Few None Seen, Few Epi/HPF 07/27/2025 4:45 AM CDT [facility] Mucus Present 07/27/2025 4:45 AM CDT [facility] WHITE CELL CLUMPS Present(A) (none) 07/27/2025 4:45 AM CDT [facility] Urine URINE SPECIMEN / Unknown Non-Blood / Unknown 07/27/2025 4:22 AM CDT 07/27/2025 4:27 AM CDT us Zeynep Feliz [place] [id number] * (ABNORMAL) URINE CULTURE (07/27/2025 4:22 AM CDT) CULTURE RESULT(A) 07/29/2025 8:01 AM CDT [facility] CULTURE <10,000 CFU/mL Escherichia coli 07/29/2025 8:01 AM CDT [facility] CULTURE <10,000 CFU/mL Multiple organisms probable contaminants 07/29/2025 8:01 AM CDT [facility] Urine URINE SPECIMEN / Unknown Non-Blood / Unknown 07/27/2025 4:22 AM CDT 07/27/2025 4:27 AM CDT us Lorene Shanks NP MICROBIOLOGY Final Result [facility] [address] [place] [address], [place] * (ABNORMAL) UA W/ SEDIMENT EXAM REFLEXED PER CRITERIA (07/27/2025 4:22 AM CDT) Only the most recent of2 resultswithin the time period is included. COLOR Yellow Yellow Color 07/27/2025 4:33 AM CDT [facility] CLARITY Clear Clear Clarity 07/27/2025 4:33 AM T [facility] SPECIFIC GRAVITY,URINE >=1.030(A) 1.010, 1.015, 1.020, 1.025 07/27/2025 4:33 AM T [facility] PH,URINE 5.5 6.0, 7.0, 8.0, 5.5, 6.5, 7.5, 8.5 07/27/2025 4:33 AM T [facility] UROBILINOGEN,QU ALITATIVE Normal Normal EU/dl 07/27/2025 4:33 AM T [facility] PROTEIN, URINE Negative Negative mg/dL 07/27/2025 4:33 AM T [facility] GLUCOSE, URINE Negative Negative mg/dL 07/27/2025 4:33 AM T [facility] KETONES,URINE Negative Negative mg/dL 07/27/2025 4:33 AM T [facility] BILIRUBIN,URINE Abnormal(A) Negative 07/27/20 4:33 AM T [facility] Comment:A variety of metabol ites and/or medications may result in a positive bilirubin result. Clinical correlation is recommended. OCCULT BLOOD,URINE Moderate(A) Negative 07/27/2025 4:33 AM CDT [facility] NITRITE Negative Negative 07/27/2025 4:33 AM T [facility] LEUKOCYTE ESTERASE Negative Negative 07/27/2025 4:33 AM T [facility] Urine URINE SPECIMEN / Unknown Non-Blood / Unknown 07/27/2025 4:22 AM CDT 07/27/2025 4:27 AM CDT us Zeynep Feliz MD URINE Final Res ult Performing Organization Address [facility] de Phone Number [facility] [address] [place] [address] * EKG 12 LEAD (07/26/2025 12:17 PM CDT) Only the most recent of6 resultswithin the time period is included. Interpretation Normal sinus rhythm T wave abnormality, consider anterior ischemia Prolonged QT Abnormal ECG BEYOND NOW Ventricular Rate 67 BPM BEYOND NOW Atrial Rate 67 BPM BEYOND NOW P-R Interval 142 ms BEYOND NOW QRS Duration 82 ms BEYOND NOW QT 436 ms BEYOND NOW QTc 460 ms BEYOND NOW P [place] 25 degrees BEYOND NOW R [place] 59 degrees BEYOND NOW T [place] 14 degrees BEYOND NOW 07/26/2025 12:1 7 PM CDT 07/29/2025 10:42 PM CDT us Brooks Vidal MD EKG ORD Final R esult Performing Organization Address [facility] de Phone Number BEYOND NOW [place], [place] * (ABNORMAL) CBC WITH AUTO DIFFERENTIAL (07/26/2025 11:49 AM CDT) Only the most recent of4 resultswithin the time period is included. Pathologist [facility] WHITE BLOOD COUNT 5.9 4.5 - 11.0 thou/cu mm 07/26/2025 12:39 PM CDT [facility] RED BLOOD COUNT 3.26(L) 4.00 - 5.20 mil/cu mm 07/26/2025 12:39 PM CDT [facility] HEMOGLOBIN 11.8(L) 12.0 - 16.0 g/dL 07/26/2025 12:39 PM CDT [facility] HEMATOCRIT 34.1 33.0 - 51.0 % 07/26/2025 12:39 PM CDT [facility] MCV 105(H) 80 - 100 fL 07/26/2025 12:39 PM CDT [facility] MCH 36.2(H) 26.0 - 34.0 pg 07/26/2025 12:39 PM CDT [facility] MCHC 34.6 32.0 - 36.0 g/dL 07/26/2025 12:39 PM CDT [facility] RDW 15.0 11.5 - 15.5 % 07/26/2025 12:39 PM CDT [facility] PLATELET COUNT 231 140 - 440 thou/cu mm 07/26/2025 12:39 PM CDT [facility] MPV 10.0 6.5 - 11.0 fL 07/26/2025 12:39 PM CDT [facility] NRBC 0.0 % 07/26/2025 12:39 PM CDT [facility] ABS NRBC 0.0 thou /cu mm 07/26/2025 12:39 PM CDT [facility] % NEUT 69.0 % 07/26/2025 12:39 PM CDT [facility] % LYMPH 21.4 % 07/26/2025 12:39 PM CDT [facility] % MONO 6.6 % 07/26/2025 12:39 PM CDT [facility] % EOS 2.4 % 07/26/2025 12:39 PM CDT [facility] % BASO 0.3 % 07/26/2025 12:39 PM CDT [facility] % IMMATURE GRAN (METAS,MYELOS,MS OS) 0.3 % 07/26/2025 12:39 PM CDT [facility] ABSOLUTE NEUTROPHILS 4.1 1.7 - 7.0 thou/cu mm 07/26/2025 12:39 PM CDT [facility] ABSOLUTE LYMPHOCYTES 1.3 0.9 - 2.9 thou/cu mm 07/26/2025 12:39 PM CDT [facility] ABSOLUTE MONOCYTES 0.4 <0.9 thou/cu mm 07/26/2025 12:39 PM CDT [facility] ABSOLUTE EOSINOPHILS 0.1 <0.5 thou/cu mm 07/26/2025 12:39 PM CDT [facility] ABSOLUTE BASOPHILS 0.0 <0.3 thou/cu mm 07/26/2025 12:39 PM CDT [facility] ABSOLUTE IMMATURE GRANULOCYTES(MET ,MYELOS,PROS) 0.0 <0.3 thou/cu mm 07/26/2025 12:39 PM CDT [facility] Blood BLOOD SPECIMEN / Unknown IV Start / Unknown 07/26/2025 11:49 AM CDT 07/26/2025 11:53 AM CDT Brooks Vidal MD HEMATOLOGY Final R esult Performing Organization Address City/[facility] Co de Phone Number [address] [address] * EXTRA TUBE LIGHT GREEN (07/26/2025 11:49 AM CDT) Blood BLOOD SPECIMEN / Unknown IV Start / Unknown 07/26/2025 11:49 AM CDT 07/26/2025 11:53 AM CDT Brooks Vidal MD LABORATORY Final R esult Performing Organization Address [facility] de Phone Number [address] [address] * EXTRA TUBE LAVENDER (07/26/2025 11:49 AM CDT) Blood BLOOD SPECIMEN / Unknown IV Start / Unknown 07/26/2025 11:49 AM CDT 07/26/2025 11:53 AM CDT Brooks Vidal MD LABORATORY Final R esult Performing Organization Address City/[facility] Co de Phone Number [address] [address] * EXTRA TUBE PERALTA (07/26/2025 11:49 AM CDT) Blood BLOOD SPECIMEN / Unknown IV Start / Unknown 07/26/2025 11:49 AM CDT 07/26/2025 11:53 AM CDT Brooks Vidal MD LABORATORY Final R esult Performing Organization Address City/[facility] Co de Phone Number [address] [address] * EXTRA TUBE BLUE (07/26/2025 11:49 AM CDT) Blood BLOOD SPECIMEN / Unknown IV Start / Unknown 07/26/2025 11:49 AM CDT 07/26/2025 11:53 AM CDT Brooks Vidal MD LABORATORY Final R [facility] Performing Organization Address [facility] Co de Phone Number [address] [address] * PROTIME-INR (07/26/2025 11:49 AM CDT) Only the most recent of2 resultswithin the time period is included. INR 1.0 <1.3 07/26/2025 1:34 PM CDT [facility] PROTIME 11.8 10.6 - 12.4 sec 07/26/2025 1:34 PM CDT [facility] Blood BLOOD SPECIMEN / Unknown IV Start / Unknown 07/26/2025 11:49 AM CDT 07/26/2025 11:53 AM CDT Narrative [facility] - 07/26/2025 1:34 PM CDT Therapeutic Range 2.0-3.0 for most anticoagulated patients 2.5-3.5 or 4.0 for high risk patients The INR is only used for patients on stable oral anticoagulant therapy. It makes no significant contribution to the diagnosis or treatment of patients whose Protime is prolonged for other reasons. INR results are increased when heparin levels exceed 1.0 U/mL, which corresponds to an aPTT >125 seconds if the patient is on UFH. Brooks Vidal MD HEMATOLOGY Final R esult Performing Organization Address [facility] Co de Phone Number [address] [address] * (ABNORMAL) HEPATIC FUNCTION PANEL (07/26/2025 11:49 AM CDT) Only the most recent of2 resultswithin the time period is included. ALBUMIN 4.1 4.0 - 4.9 g/dL 07/27/2025 12:13 AM CDT [facility] PROTEIN,TOTAL 6.7 6.0 - 8.0 g/dL 07/27/2025 12:13 AM CDT [facility] BILIRUBIN,TOTAL 1.0 0.0 - 1.2 mg/dL 07/27/2025 12:13 AM CDT [facility] BILIRUBIN,DIRECT 0.4(H) 0.0 - 0.2 mg/dL 07/27/2025 12:13 AM CDT [facility] BILIRUBIN,INDIRE CT 0.6 0.2 - 0.8 mg/dL 07/27/2025 12:13 AM CDT [facility] ALK PHOSPHATASE 57 35 - 104 IU/L 07/27/2025 12:13 AM CDT [facility] ALT (SGPT) 27 10 - 35 IU/L 07/27/2025 12:13 AM CDT [facility] AST (SGOT) 52(H) 10 - 35 IU/L 07/27/2025 12:13 AM CDT [facility] Blood BLOOD SPECIMEN / Unknown IV Start / Unknown 07/26/2025 11:49 AM CDT 07/26/2025 11:53 AM CDT us Zeynep Feliz MD CHEMISTRY Final Res ult [facility] [address] [place] [address] * (ABNORMAL) BASIC METABOLIC PANEL (07/26/2025 11:49 AM CDT) Only the most recent of4 resultswithin the time period is included. SODIUM 142 136 - 145 mmol/L 07/26/2025 1:42 PM CDT [facility] POTASSIUM 3.7 3.5 - 5.1 mmol/L 07/26/2025 1:42 PM CDT [facility] CHLORIDE 105 98 - 107 mmol/L 07/26/2025 1:42 PM CDT [facility] CO2,TOTAL 23 22 - 29 mmol/L 07/26/2025 1:42 PM CDT [facility] ANION GAP 14 5 - 18 07/26/2025 1:42 PM CDT [facility] GLUCOSE 85 70 - 99 mg/dL 07/26/2025 1:42 PM CDT [facility] CALCIUM 9.3 8.8 - 10.4 mg/dL 07/26/2025 1:42 PM CDT [facility] Comment: Reference ranges for this test were updated on 08/22/2024 to reflect our healthy population more accurately. Reference range changes are not retroactively applied to results, but previous results using the same methodology can be interpreted in the context of the new reference range. BUN 5(L) 6 - 20 mg/dL 07/26/2025 1:42 PM CDT [facility] CREATININE 0.71 0.50 - 0.90 mg/dL 07/26/2025 1:42 PM CDT [facility] BUN/CREAT RATIO 7(L) 10 - 20 1:42 PM CDT [facility] eGFR >90 >90 mL/min/1.7 3m2 07/26/2025 1:42 PM CDT [facility] Comment:As of 2021, eG FR is calculated by the CKD-EPI creatinine equation without race adjustment. eGFR can be influenced by muscle mass, exercise, and diet. The reported eGFR is an estimation only and is only applicable if the renal function is stable. Blood BLOOD SPECIMEN / Unknown IV Start / Unknown 07/26/2025 11:49 AM CDT 07/26/2025 11:53 AM CDT us Brooks Vidal MD CHEMISTRY Final R esult [facility] [address] [place] [address] * CT ABDOMEN PELVIS STONE PROTOCOL WO (07/25/2025 9:15 PM CDT) Anatomical Region Laterality Modality Abdomen, Pelvis, AORTA, LIVER, SPLEEN Computed Tomography 07/25/2025 9:38 PM CDT Impressions 07/25/2025 9:38 PM CDT 1. No hydronephrosis or obstructing urinary calculi. 2. Mild bladder wall thickening may be due to underdistention, however correlation with urinalysis is recommended. 3. No other acute findings in the abdomen or pelvis on this noncontrast exam. Please note that all CT scans at this facility use dose modulation, iterative reconstruction, and/or weight-based dosing when appropriate to reduce radiation dose to as low as reasonably achievable. Dictated by Senia Velez MD @ 07/25/2025 9:38:01 PM (Electronically Signed) Narrative 07/25/2025 9:38 PM CDT For Patients: As a result of the Century Cures Act, medical imaging exams and procedure reports are released immediately into your electronic medical record. You may view this report before your referring provider. If you have questions, please contact your health care provider. INDICATION: Flank pain, kidney stone suspected. Vomiting x5 days. TECHNIQUE: CT of the abdomen and pelvis without IV contrast. Coronal and sagittal reconstructions. COMPARISON: CT chest 07/16/2025. CT chest, abdomen, pelvis 07/19/2024. FINDINGS: Lower chest: Unremarkable. Liver: The right hepatic dome is excluded from the field of view. Irregular hypodense region in the inferior left hepatic lobe adjacent to the gallbladder fossa likely represents focal fatty infiltration. This appears similar to prior exam. Gallbladder and bile ducts: Unremarkable. No biliary dilatation. Spleen: Enlarged measuring 13.5 cm in AP dimension, unchanged. Pancreas: Unremarkable. Adrenal glands: Unremarkable. Kidneys, Ureters, and Bladder: No hydronephrosis or ureteral dilation. No obstructing urinary calculi identified. Underdistended urinary bladder with mild wall thickening. Reproductive organs: Unremarkable noncontrast appearance of the uterus and ovaries. Tampon in the vagina. GI tract/Peritoneum: Postoperative changes of the stomach. Small hiatal hernia. No small bowel dilation. Mild to moderate stool burden. Linear hyperdensity in the distal appendiceal lumen likely represents an appendicolith. The appendix is otherwise negative. No intraperitoneal free air or fluid. Vasculature: Abdominal aorta is normal in caliber. The previously described basilar pulmonary emboli and IVC thrombus cannot be evaluated without IV contrast. Lymph nodes: No lymphadenopathy. Abdominal Wall: Small fat containing umbilical hernia. Small adjacent subcutaneous nodular densities in the right anterior abdominal wall may represent injection granulomas. Mild body wall edema. Bones: Unremarkable for age. Procedure Note Senia Velez MD - 07/25/2025 For Patients: As a result of the Century Cures Act, medical imagingexams and procedure reports are released immediately into your electronicmedical record. You may view this report before your referring provider.If you have questions, please contact your health care provider. INDICATION: Flank pain, kidney stone suspected. Vomiting x5 days. TECHNIQUE: CT of the abdomen and pelvis without IV contrast. Coronal and sagittalreconstructions. COMPARISON: CT chest 07/16/2025. CT chest, abdomen, pelvis 07/19/2024. FINDINGS: Lower chest: Unremarkable. Liver: The right hepatic dome is excluded from the field of view.Irregular hypodense region in the inferior left hepatic lobe adjacent tothe gallbladder fossa likely represents focal fatty infiltration. Thisappears similar to prior exam. Gallbladder and bile ducts: Unremarkable. No biliary dilatation. Spleen: Enlarged measuring 13.5 cm in AP dimension, unchanged. Pancreas: Unremarkable. Adrenal glands: Unremarkable. Kidneys, Ureters, and Bladder: No hydronephrosis or ureteral dilation. Noobstructing urinary calculi identified. Underdistended urinary bladderwith mild wall thickening. Reproductive organs: Unremarkable noncontrast appearance of the uterus andovaries. Tampon in the vagina. GI tract/Peritoneum: Postoperative changes of the stomach. Small hiatalhernia. No small bowel dilation. Mild to moderate stool burden. Linearhyperdensity in the distal appendiceal lumen likely represents anappendicolith. The appendix is otherwise negative. No intraperitoneal freeair or fluid. Vasculature: Abdominal aorta is normal in caliber. The previouslydescribed basilar pulmonary emboli and IVC thrombus cannot be evaluatedwithout IV contrast. Lymph nodes: No lymphadenopathy. Abdominal Wall: Small fat containing umbilical hernia. Small adjacentsubcutaneous nodular densities in the right anterior abdominal wall mayrepresent injection granulomas. Mild body wall edema. Bones: Unremarkable for age. IMPRESSION: 1. No hydronephrosis or obstructing urinary calculi. 2. Mild bladder wall thickening may be due to underdistention, howevercorrelation with urinalysis is recommended. 3. No other acute findings in the abdomen or pelvis on this noncontrastexam. Please note that all CT scans at this facility use dose modulation,iterative reconstruction, and/or weight-based dosing when appropriate toreduce radiation dose to as low as reasonably achievable. Dictated by Senia Velez MD @ 07/25/2025 9:38:01 PM (Electronically Signed) Amari Myrick MD CT Final Resu lt * LIPASE (07/25/2025 6:25 PM CDT) LIPASE 22.4 13.0 - 60.0 IU/L 07/25/2025 6:49 PM CDT [facility] Blood BLOOD SPECIMEN / Unknown IV Start / Unknown 07/25/2025 6:25 PM CDT 07/25/2025 6:29 PM CDT Amari Myrick MD CHEMISTRY Final Resu lt [address] [address] * CT CHEST PE STUDY (07/16/2025 6:48 PM CDT) Only the most recent of2 resultswithin the time period is included. Anatomical Region Laterality Modality CHEST, THORAX, HEART Computed To mography 07/16/2025 7:34 PM CDT Narrative 07/16/2025 7:34 PM CDT For Patients: As a result of the Cures Act, medical imaging exams and procedure reports are released immediately into your electronic medical record. You may view this report before your referring provider. If you have questions, please contact your health care provider. Indication: Pulmonary embolism (PE) suspected, high prob Technique: CTA chest, pulmonary embolism Comparison: CTA chest on June 21, 2025 Findings: No thyroid nodules. No thoracic lymphadenopathy. The heart is normal in size. No CT evidence of right heart strain. No pericardial effusion. The thoracic aorta and pulmonary artery are normal in caliber. Evaluation of the pulmonary arteries is limited secondary to contrast bolus timing with poor opacification of the pulmonary arteries; however, given the limitations of the examination there is no acute pulmonary embolism and there is near complete resolution of the previously imaged pulmonary emboli in the segmental and subsegmental pulmonary arteries of the bilateral lower lobes with minimal residual thrombus in the posterior basal segmental artery of the right lower lobe (series number 5, image [id number]). No focal airspace consolidation, pleural effusion, or pneumothorax. Trace bibasilar atelectasis. No suspicious pulmonary nodules or masses. The airways are clear. The imaged upper abdomen is without acute abnormality. Postsurgical changes of sleeve gastrectomy. The soft tissues and bones are unremarkable. Impression: 1. Evaluation of the pulmonary arteries is limited secondary to contrast bolus timing with poor opacification of the pulmonary arteries; however, given the limitations of the examination there is no acute pulmonary embolism. 2. Near complete resolution of the previously imaged pulmonary emboli in the segmental and subsegmental pulmonary arteries of the bilateral lower lobes with minimal residual thrombus in the posterior basal segmental artery of the right lower lobe (series number 5, image [id number]). 3. No focal airspace consolidation, pleural effusion, or pneumothorax. Please note that all CT scans at this facility use dose modulation, iterative reconstruction, and/or weight-based dosing when appropriate to reduce radiation dose to as low as reasonably achievable. Dictated by Jordin Veliz MD @ 07/16/2025 7:34:02 PM (Electronically Signed) Procedure Note Jordin Veliz MD - 07/16/2025 For Patients: As a result of the 21st Century Cures Act, medical imagingexams and procedure reports are released immediately into your electronicmedical record. You may view this report before your referring provider.If you have questions, please contact your health care provider. Indication: Pulmonary embolism (PE) suspected, high prob Technique: CTA chest, pulmonary embolism Comparison: CTA chest on June 21, 2025 Findings: No thyroid nodules. No thoracic lymphadenopathy. The heart is normal in size. No CT evidence of right heart strain. Nopericardial effusion. The thoracic aorta and pulmonary artery are normalin caliber. Evaluation of the pulmonary arteries is limited secondary to contrastbolus timing with poor opacification of the pulmonary arteries; however,given the limitations of the examination there is no acute pulmonaryembolism and there is near complete resolution of the previously imagedpulmonary emboli in the segmental and subsegmental pulmonary arteries ofthe bilateral lower lobes with minimal residual thrombus in the posteriorbasal segmental artery of the right lower lobe (series number 5, [id number]). No focal airspace consolidation, pleural effusion, or pneumothorax. Tracebibasilar atelectasis. No suspicious pulmonary nodules or masses. Theairways are clear. The imaged upper abdomen is without acute abnormality. Postsurgicalchanges of sleeve gastrectomy. The soft tissues and bones are unremarkable. Impression: 1. Evaluation of the pulmonary arteries is limited secondary to contrastbolus timing with poor opacification of the pulmonary arteries; however,given the limitations of the examination there is no acute pulmonaryembolism. 2. Near complete resolution of the previously imaged pulmonary emboli inthe segmental and subsegmental pulmonary arteries of the bilateral lowerlobes with minimal residual thrombus in the posterior basal segmentalartery of the right lower lobe (series number 5, image [id number]). 3. No focal airspace consolidation, pleural effusion, or pneumothorax. Please note that all CT scans at this facility use dose modulation,iterative reconstruction, and/or weight-based dosing when appropriate toreduce radiation dose to as low as reasonably achievable. Dictated by Jordin Veliz MD @ 07/16/2025 7:34:02 PM (Electronically Signed) Laurent Zuniga MD CT Final Resul t * TROPONIN T (HS) ACUTE W/2HR REFLEX (07/16/2025 5:57 PM CDT) Only the most recent of3 resultswithin the time period is included. TROPONIN T HS <6 6-10 ng/L ng/L 07/16/2025 6:40 PM CDT [facility] Blood BLOOD SPECIMEN / Unknown IV Start / Unknown 07/16/2025 5:57 PM CDT 07/16/2025 6:02 PM CDT Narrative [facility] - 07/16/2025 6:40 PM CDT hs-cTnT (Elecsys Troponin T Gen 5) concentration (s) above the sex-specific 99th percentile (16 ng/L or greater for males or 11 ng/L or greater for females) are indicative of myocardial injury. If initial hs-cTnT <=100 ng/L at presentation, a 0h/2h ABSOLUTE (ng/L) delta change (rising or falling) of >=10 ng/L suggests a significant change, whereas a 0h/2h delta change <=3 ng/L suggests no significant change. If initial hs-cTnT >100 ng/L at presentation, a 0h/2h/ RELATIVE (percent, %) delta change of 20% is suggested to distinguish patients with acute vs. chronic myocardial injury. There are multiple etiologies that can cause hs-cTnT increases above the 99th percentile (myocardial injury) other than acute myocardial infarction. Clinical context and careful clinical evaluation are critical for diagnosis and risk-stratification. The diagnosis of acute myocardial infarction requires a rising and/or falling pattern in hs-cTnT concentrations with at least one value above the sex-specific 99th percentile PLUS at least one of the following clinical criteria: ischemic symptoms, new or presumed new significant ST-T wave changes or new LBBB, development of pathological Q waves, imaging evidence of new loss of viable myocardium or new regional wall motion abnormality, or identification of intracoronary atherothrombosis or an acute angiographic culprit on coronary angiography. In appropriate low-risk patients with a non-ischemic electrocardiogram without active chest pain with a symptom onset >3-hours without recurrence, a single initial hs-cTnT<6 ng/L identifies patient with a very low risk in emergency department patient population. Laurent Zuniga MD CHEMISTRY Final Resul t Performing Organization Address City/[facility] Co de Phone Number [address] [address] * ,SERUM QUALITATIVE (07/16/2025 5:57 PM CDT) Only the most recent of2 resultswithin the time period is included. ,SERU M Negative Negative 07/16/2025 6:26 PM CDT [facility] Blood BLOOD SPECIMEN / Unknown IV Start / Unknown 07/16/2025 5:57 PM CDT 07/16/2025 6:02 PM CDT Laurent Zuniga MD CHEMISTRY Final Resul t Performing Organization Address [facility] Co de Phone Number [address] [address] * (ABNORMAL) PRO-BNP (07/16/2025 5:57 PM CDT) PRO-BNP 166(H) <125 pg/mL 07/16/2025 6:45 PM CDT [facility] Blood BLOOD SPECIMEN / Unknown IV Start / Unknown 07/16/2025 5:57 PM CDT 07/16/2025 6:02 PM CDT Narrative [facility] - 07/16/2025 6:45 PM CDT The following cut-points have been suggested for the use of proBNP for the diagnostic evaluation of heart failure (HF) in patient with acute dyspnea. Patients with eGFR >= 60 Diagnosis (rule in CHF) <50 Years Old 450 pg/mL 50 - 75 Years Old 900 pg/mL >75 Years Old 1800 pg/mL Exclusion (rule out CHF) Age Independent 300 pg/mL A cutoff of 1200 pg/mL for patients with an eGFR <60 yields a diagnostic sensitivity of 89% and specificity of 72% for acute congestive heart failure. us Laurent Zuniga MD SEND OUTS Final Resul t [facility] [address] [place] [address] * PLATELET COUNT (06/25/2025 6:45 AM CDT) Only the most recent of4 resultswithin the time period is included. PLATELET COUNT 195 140 - 440 thou/cu mm 06/25/2025 6:52 AM CDT [facility] MPV 8.6 6.5 - 11.0 fL 06/25/2025 6:52 AM CDT [facility] Blood BLOOD SPECIMEN / Unknown Butterfly / Unknown 06/25/2025 6:45 AM CDT 06/25/2025 6:50 AM CDT us Courtney Oneil MD HEMATOLOGY Final Result Performing Organization Address [facility] Co de Phone Number [address] [address] * TROPONIN T (HS) ONE TIME (06/23/2025 6:37 AM CDT) Only the most recent of2 resultswithin the time period is included. TROPONIN T HS <6 6-10 ng/L ng/L 06/23/2025 7:18 AM CDT [facility] Blood BLOOD SPECIMEN / Unknown Venipuncture / Unknown 06/23/2025 6:37 AM CDT 06/23/2025 6:56 AM CDT us John Handy NP CHEMISTRY Final Result Performing Organization Address [facility] Co de Phone Number [address] [address] * WHITE BLOOD COUNT (06/23/2025 3:55 AM CDT) WHITE BLOOD COUNT 5.2 4.5 - 11.0 thou/cu mm 06/23/2025 4:01 AM CDT [facility] NRBC 0.4 % 06/23/2025 4:01 AM CDT [facility] ABS NRBC 0.0 thou /cu mm 06/23/2025 4:01 AM CDT [facility] Blood BLOOD SPECIMEN / Unknown Venipuncture / Unknown 06/23/2025 3:55 AM CDT 06/23/2025 3:59 AM CDT us Courtney Oneil MD HEMATOLOGY Final Result Performing Organization Address [facility] Co de Phone Number [address] [address] * CREATININE (06/23/2025 3:55 AM CDT) eGFR >90 >90 mL/min/1.7 3m2 06/23/2025 4:18 AM CDT [facility] Comment:As of 2021, eG FR is calculated by the CKD-EPI creatinine equation without race adjustment. eGFR can be influenced by muscle mass, exercise, and diet. The reported eGFR is an estimation only and is only applicable if the renal function is stable. CREATININE 0.76 0.50 - 0.90 mg/dL 06/23/2025 4:18 AM CDT [facility] Blood BLOOD SPECIMEN / Unknown Venipuncture / Unknown 06/23/2025 3:55 AM CDT 06/23/2025 3:59 AM CDT us Courtney Oneil MD CHEMISTRY Final Result Performing Organization Address [facility] Co de Phone Number [address] [address] * (ABNORMAL) APTT (06/22/2025 3:49 PM CDT) Only the most recent of4 resultswithin the time period is included. APTT 59(H) 25 - 36 sec 06/22/2025 4:29 PM CDT [facility] Blood BLOOD SPECIMEN / Unknown Butterfly / Unknown 06/22/2025 3:49 PM CDT 06/22/2025 4:18 PM CDT Narrative [facility] - 06/22/2025 4:29 PM CDT Therapeutic Range: 59-89 seconds us Brooks Vidal MD HEMATOLOGY Final R esult Performing Organization Address [facility]/ZIP Co de Phone Number [address] [address] * CT NECK SOFT TISSUE W (06/22/2025 3:33 PM CDT) Anatomical Region Laterality Modality NECK Computed Tomogra phy 06/22/2025 3:50 PM CDT Narrative 06/22/2025 3:50 PM CDT For Patients: As a result of the Cures Act, medical imaging exams and procedure reports are released immediately into your electronic medical record. You may view this report before your referring provider. If you have questions, please contact your health care provider. Indication: Questioning neck vein thrombosis. Technique: CT images of the neck following intravenous contrast. Comparison: None. Findings: The nasopharynx, oropharynx, hypopharynx, and larynx are widely patent and without enhancing lesions. No thickening of the epiglottis or retropharyngeal edema. No enhancing lesions in the oral cavity or floor of mouth. Diffuse fatty infiltration of the parotid glands. The submandibular glands are unremarkable. The thyroid gland is unremarkable. No pathologically enlarged lymph nodes. Widely patent internal jugular veins. No inflammatory stranding to suggest thrombophlebitis. Limited images through the brain are without pathologic intracranial enhancement. Dental caries and periapical lucencies involving multiple maxillary teeth. The visualized paranasal sinuses and mastoid air cells are clear. No aggressive osseous lesions. No concerning opacities in the visualized lungs. Impression: 1. Widely patent internal jugular veins. No inflammatory stranding to suggest thrombophlebitis. 2. Dental caries and periapical lucencies involving multiple maxillary teeth. Please note that all CT scans at this facility use dose modulation, iterative reconstruction, and/or weight-based dosing when appropriate to reduce radiation dose to as low as reasonably achievable. Dictated by Shaka Chamberlain MD @ 06/22/2025 3:50:51 PM (Electronically Signed) Procedure Note Shaka Chamberlain MD - 06/22/2025 For Patients: As a result of the Cures Act, medical imagingexams and procedure reports are released immediately into your electronicmedical record. You may view this report before your referring provider.If you have questions, please contact your health care provider. Indication: Questioning neck vein thrombosis. Technique: CT images of the neck following intravenous contrast. Comparison: None. Findings: The nasopharynx, oropharynx, hypopharynx, and larynx are widely patent andwithout enhancing lesions. No thickening of the epiglottis orretropharyngeal edema. No enhancing lesions in the oral cavity or floor of mouth. Diffuse fatty infiltration of the parotid glands. The submandibular glandsare unremarkable. The thyroid gland is unremarkable. No pathologically enlarged lymph nodes. Widely patent internal jugular veins. No inflammatory stranding to suggestthrombophlebitis. Limited images through the brain are without pathologic intracranialenhancement. Dental caries and periapical lucencies involving multiple maxillary teeth. The visualized paranasal sinuses and mastoid air cells are clear. No aggressive osseous lesions. No concerning opacities in the visualized lungs. Impression: 1. Widely patent internal jugular veins. No inflammatory stranding tosuggest thrombophlebitis. 2. Dental caries and periapical lucencies involving multiple maxillaryteeth. Please note that all CT scans at this facility use dose modulation,iterative reconstruction, and/or weight-based dosing when appropriate toreduce radiation dose to as low as reasonably achievable. Dictated by Shaka Chamberlain MD @ 06/22/2025 3:50:51 PM (Electronically Signed) Courtney Oneil MD CT Final Result * CT VENOGRAM HEAD W (06/22/2025 3:33 PM CDT) Anatomical Region Laterality Modality HEAD, BRAIN Computed Tomogra phy 06/22/2025 3:46 PM CDT Narrative 06/22/2025 3:46 PM CDT For Patients: As a result of the Century Cures Act, medical imaging exams and procedure reports are released immediately into your electronic medical record. You may view this report before your referring provider. If you have questions, please contact your health care provider. Indication: Dural venous sinus thrombosis suspected. Technique: CT images of the brain following intravenous contrast as a venogram protocol. Comparison: CT brain 07/19/2024. Findings: The major dural venous sinuses including the superior sagittal sinus, straight sinus, transverse sinuses, and sigmoid sinuses are widely patent and without evidence for thrombosis. The right transverse sinus is dominant. The internal cerebral veins, basal veins of Monique, and vein of Arnol are patent. Impression: No dural venous sinus thrombosis. Please note that all CT scans at this facility use dose modulation, iterative reconstruction, and/or weight-based dosing when appropriate to reduce radiation dose to as low as reasonably achievable. Dictated by Shaka Chamberlain MD @ 06/22/2025 3:46:14 PM (Electronically Signed) Procedure Note Shaka Chamberlain MD - 06/22/2025 For Patients: As a result of the Century Cures Act, medical imagingexams and procedure reports are released immediately into your electronicmedical record. You may view this report before your referring provider.If you have questions, please contact your health care provider. Indication: Dural venous sinus thrombosis suspected. Technique: CT images of the brain following intravenous contrast as a venogramprotocol. Comparison: CT brain 07/19/2024. Findings: The major dural venous sinuses including the superior sagittal sinus,straight sinus, transverse sinuses, and sigmoid sinuses are widely patentand without evidence for thrombosis. The right transverse sinus isdominant. The internal cerebral veins, basal veins of Monique, and vein of Galenare patent. Impression: No dural venous sinus thrombosis. Please note that all CT scans at this facility use dose modulation,iterative reconstruction, and/or weight-based dosing when appropriate toreduce radiation dose to as low as reasonably achievable. Dictated by Shaka Chamberlain MD @ 06/22/2025 3:46:14 PM (Electronically Signed) Courtney Oneil MD CT Final Result * (ABNORMAL) FOLIC ACID (06/22/2025 10:51 AM CDT) FOLIC ACID >40.0(H) 4.6 - 34.8 ng/mL 06/22/2025 8:21 PM CDT [facility] Blood BLOOD SPECIMEN / Unknown Butterfly / Unknown 06/22/2025 10:51 AM CDT 06/22/2025 11:05 AM CDT Narrative [facility] - 06/22/2025 8:21 PM CDT Biotin supplements may cause clinically significant interference for this test assay. If interference is suspected, it is strongly recommended that biotin is discontinued for at least one week prior to retesting. Courtney Oneil MD CHEMISTRY Final Result [facility] [address] [place] [address], * (ABNORMAL) VITAMIN B12 (06/22/2025 10:51 AM CDT) VITAMIN B12 <150(L) 232 - 1,245 pg/mL 06/22/2025 7:51 PM CDT [facility] Blood BLOOD SPECIMEN / Unknown Butterfly / Unknown 06/22/2025 10:51 AM CDT 06/22/2025 11:05 AM CDT Narrative [facility] - 06/22/2025 7:51 PM CDT Biotin supplements may cause clinically significant interference for this test assay. If interference is suspected, it is strongly recommended that biotin is discontinued for at least one week prior to retesting. Courtney Oneil MD CHEMISTRY Final Result [facility] [address] [place] [address], [place] * ECHO TTE COMPLETE WO CONTRAST (06/22/2025 8:14 AM CDT) Pathologist [facility] AORTIC VALVE MEAN PG 3 mmHg LVEDD 5.0 cm EJECTION FRACTION 65 - 70% Anatomical Region Laterality Modality Ultrasound 06/22/2025 7:36 AM CDT Narrative 06/22/2025 11:43 AM CDT ECHOCARDIOGRAM KARO WATSON : 1995 30 years Study Date: 06/22/2025 7:36:23 AM Gender: F BP: 90/47 mmHg Height: 175.00 cm BSA: 2.35 m Weight: 123.00 kg Tech: SIM Referring MD: BRIAN MOSQUEDA Site: [facility] [place] Location: [facility] Patient Location: Inpatient. Procedure: 2D, Color Doppler, [...] is normal. Right atrial area is 17 cm . The pulmonary artery is of normal size [...] ULN 3.5 cm * RA area 17 cm Asc Ao 2.8 cm RV Basal Diam [...] Valve: Vmax 1.1 m/s SHARIF (V) 3.12 cm VTI 0.24 m SHARIF (I) 3.49 cm LVOT V max 0.9 m/s Max PG 5 mmHg LVOT VTI 0.22 m Mean PG 3 mmHg SV 85 ml Dim Index 0.92 SV index 36 ml/m CO 4.9 l/min CI 2.1 l/min/m Mitral Valve: MVA 4.1 cm MV P 1/2 54 msec Tricuspid Valve and estimated PA pressures: TAPSE 1.7 cm Pulmonic Valve: PV Vmax 0.8 m/s . This study was interpreted by an [facility] accredited facility. Final Procedure Note Hesham Hough MD - 06/22/2025 ECHOCARDIOGRAM KARO WATSON : 1995 30 years Study Date: 06/22/2025 7:36:23 AM Gender: F BP: 90/47 mmHg Height: 175.00 cm BSA: 2.35 m Weight: 123.00 kg Tech: [facility] Referring MD: BRIAN MOSQUEDA Site: [facility] [place] Location: [facility] Patient Location: Inpatient. Procedure: 2D, Color Doppler, Spectral Doppler and 3D Imaging. Indication for study: Pulmonary embolism Cardiac Rhythm: Sinus bradycardia.Study quality: Good. Final Impressions: 1. Normal LV size, mildly increased wall thickness, normal globalsystolic function with an estimated EF of 65 - 70%. 2. Right ventricular cavity size is normal, global systolic RV functionis normal. Chamber Sizes and Function Normal left ventricular size, mildly increased wall thickness, normalglobal systolic function with an estimated EF of 65 - 70%. LV ejectionfraction by 3D calculation is 59 %. No resting regional wall motionabnormality visualized. Left atrial size is normal. Right ventricularcavity size is normal, global systolic RV function is normal. RV wallthickness is normal. The right atrium is normal. Right atrial area is 17cm . The pulmonary artery is of normal size and origin. The sinus ofValsalva is normal sized. The ascending aorta is normal sized. Valves, RV Pressures and Diastolic Function The aortic valve is not well visualized , no stenosis and noregurgitation. The mitral valve is normal in structure, no mitralregurgitation. Normal diastolic function. The tricuspid valve is normal instructure, trace tricuspid regurgitation. The pulmonic valve is normal. Nopulmonary regurgitation. Masses, Effusion, Shunts There is no pericardial effusion. The inferior vena cava is not wellvisualized, respiratory size variation not well visualized. No left toright shunting was detected by limited color flow Doppler interrogation ofthe interatrial septum. MEASUREMENTS AND CALCULATIONS 2-D Measurements and LV Function: LVID (d) 5.0 cm 3D EF 59% LVID (s) 2.9 cm LV FS% (2D) 42% IVS (d) 1.2 cm LVOT diameter2.2 cm LVPW (d) 1.0 cm HR 58bpm Ao Sinus 3.3 cm LA Vol index 22ml/m2 Ao Sinus ULN 3.5 cm * RA area 17cm Asc Ao 2.8 cm RV Basal Diam3.1 cm Asc Ao ULN 3.4 cm * [...] Valve: Vmax 1.1 m/s SHARIF (V) 3.12 cm VTI 0.24 m SHARIF (I) 3.49 cm LVOT V max 0.9 m/s Max PG 5 mmHg LVOT VTI 0.22 m Mean PG 3 mmHg SV 85 ml Dim Index 0.92 SV index 36 ml/m CO 4.9 l/min CI 2.1 l/min/m Mitral Valve: MVA 4.1 cm MV P 1/2 54 msec Tricuspid Valve and estimated PA pressures: TAPSE 1.7 cm Pulmonic Valve: PV Vmax 0.8 m/s . This study was interpreted by an [facility] accredited facility. Final us Brian Mosqueda MD ECHO ORD Final Result * US VENOUS LOWER EXTREMITY BILATERAL (06/21/2025 3:06 PM CDT) Anatomical Region Laterality Modality LEGS, LEG L, LEG R Ultrasound 06/21/2025 3:13 PM CDT Impressions 06/21/2025 3:13 PM CDT No DVT in the bilateral lower extremities Dictated by Cristin Vlilarreal MD @ 06/21/2025 3:13:54 PM (Electronically Signed) Narrative 06/21/2025 3:13 PM CDT For Patients: As a result of the Cures Act, medical imaging exams and procedure reports are released immediately into your electronic medical record. You may view this report before your referring provider. If you have questions, please contact your health care provider. INDICATION: Leg pain and swelling. TECHNIQUE: Ultrasound venous duplex bilateral lower extremity. Compression venous exam was performed using peralta-scale, color Doppler, and spectral Doppler analysis. COMPARISON: None. FINDINGS: Deep veins: Sonographic imaging demonstrates the bilateral common femoral, deep femoral, superficial femoral, popliteal, and posterior tibial veins to be fully compressible with normal color Doppler blood flow. Superficial veins: Greater saphenous veins are fully compressible. No popliteal cyst. Procedure Note Cristin Villarreal MD - 06/21/2025 For Patients: As a result of the Cures Act, medical imagingexams and procedure reports are released immediately into your electronicmedical record. You may view this report before your referring provider.If you have questions, please contact your health care provider. INDICATION: Leg pain and swelling. TECHNIQUE: Ultrasound venous duplex bilateral lower extremity. Compression venousexam was performed using peralta-scale, color Doppler, and spectral Doppleranalysis. COMPARISON: None. FINDINGS: Deep veins: Sonographic imaging demonstrates the bilateral common femoral,deep femoral, superficial femoral, popliteal, and posterior tibial veinsto be fully compressible with normal color Doppler blood flow. Superficial veins: Greater saphenous veins are fully compressible. No popliteal cyst. IMPRESSION: No DVT in the bilateral lower extremities Dictated by Cristin Villarreal MD @ 06/21/2025 3:13:54 PM (Electronically Signed) us Brooks Vidal MD Final R esult * (ABNORMAL) AERONAUTICAL PROJECT ENGINEER THIN PREP PAP SCREEN IMAGED (11/14/2018 3:00 PM DIRECTOR OF RESOURCE DEVELOPMENT) Case Report Gynecologic Cytology Report Case: [id number] Authorizing Provider: Mariluz Diamond MD Collected: 11/14/2018 1500 Ordering Location: [facility] Received: 11/14/2018 1528 Clinic First Screen: Milagro Johnson Pathologist: Octavio Zhang Jr., MD Specimen: AERONAUTICAL PROJECT ENGINEER ThinPrep Vial Screening, Cervical 11/25/2018 5:50 PM DIRECTOR OF RESOURCE DEVELOPMENT [facility] INTERPRETATION/ RESULT LOW GRADE SQUAMOUS INTRAEPITHELIAL LESION (LSIL)(A) (none) 11/25/2018 5:50 PM DIRECTOR OF RESOURCE DEVELOPMENT [facility] at 1750 DIRECTOR OF RESOURCE DEVELOPMENT SPECIMEN ADEQUACY Satisfactory for evaluation Endocervical component present 11/25/2018 5:50 PM DIRECTOR OF RESOURCE DEVELOPMENT [facility] HPV REQUEST HPV if ASCUS 11/25/2018 5:50 PM DIRECTOR OF RESOURCE DEVELOPMENT [facility] Date of LMP 10/24/2018 11/25/2018 5:50 PM DIRECTOR OF RESOURCE DEVELOPMENT [facility] Last Pap Date 06/26/16 11/25/2018 5:50 PM DIRECTOR OF RESOURCE DEVELOPMENT [facility] Last Pap Result NIL 9 5:50 PM DIRECTOR OF RESOURCE DEVELOPMENT [facility] Abnormal Pap or Poyntelle Bx in last 5 years No 11/25/2018 5:50 PM DIRECTOR OF RESOURCE DEVELOPMENT [facility] Menstrual Status Regular Periods 11/25/2018 5:50 PM DIRECTOR OF RESOURCE DEVELOPMENT [facility] Poyntelle Bx Done Today No 11/25/2018 5:50 PM DIRECTOR OF RESOURCE DEVELOPMENT [facility] Additional Information None given 11/25/2018 5:50 PM DIRECTOR OF RESOURCE DEVELOPMENT [facility] Automated Review Successful 11/25/2018 5:50 PM DIRECTOR OF RESOURCE DEVELOPMENT [facility] Comment:Specimen processed s uccessfully by automated director financial planning device, ThinPrep Imaging System, [employer] Note The pap test is a [...] lesions. Cytology is screened and interpreted at [facility] - [address], [place] [address] and [facility] - [address]; [place] [address] and [facility] - [address]; [place] [address] and [facility] [address]; [place] [address] 11/25/2018 5:50 PM DIRECTOR OF RESOURCE DEVELOPMENT [facility]AL [facility]ATORY Other (Cervical) Non-Blood / Unknown 11/14/2018 3:00 PM DIRECTOR OF RESOURCE DEVELOPMENT 11/14/2018 3:28 PM DIRECTOR OF RESOURCE DEVELOPMENT us Mariluz Diamond MD PATHOLOGY/CYTOLOGY Final Re sult [facility] [address] [place] [address], from Last 3 Months or Most Recently Relevant to Health Maintenance Insurance BLUE CROSS OF NON-FL-ITS BLUE CROSS OF NON-FL-ITS [facility] [employer]IC[employer] INS Advance Directives * Full Code (Latest Code Status on File) Date Activated Date Inactivated Comments 07/26/2025 6:20 PM 07/27/2025 1:22 PM Question Answer Comments Code Status Discussion: Reviewed Preferences * Full Code Date Activated Date Inactivated Comments 06/21/2025 8:30 PM 06/25/2025 4:20 PM Question Answer Comments Code Status Discussion: Reviewed Preferences * Full Code Date Activated Date Inactivated Comments 07/19/2024 7:26 PM 07/21/2024 10:07 PM Question Answer Comments Code Status Discussion: Reviewed Preferences * Full Code Date Activated Date Inactivated Comments 08/08/2020 10:29 AM 08/08/2020 3:01 PM Question Answer Comments Code Status Discussion: Not Discussed * Full Code Date Activated Date Inactivated Comments 10/13/2016 9:09 AM 10/14/2016 8:10 PM Care Teams Building Stonecutter Relationship Specialty [place] [address] [place] [address] PCP - General Family Practice 06/05/24 Pamela Jara NP Nurse Practitioner Nurse Practitioner - Adult 08/06/20 Paulina Mcgregor, RN Registered Nurse Registered Nurse 08/06/20
--- OUTSIDE RECORDS SUMMARY | 2025-07-30 18:48 | XMS_ITS | Encounter Summary ---
Author Organization [place] Address [facility] [place] [address] Care Team Providers Care Drafter Cartographic Name Role Phone [facility], [facility] Primary Care Provider Leatha Wagner APRN [facility] Unavailable [phone] Mariana Acosta-C Unavailable [phone] Sarah Juares MD Primary Care Provider [phone] Lucas Nuno MD Unavailable +[phone] Mariana AcostaC Unavailable [phone] Lucas Nuno MD Unavailable +- [phone] Mariana AcostaC Unavailable [phone] Purvi Jeong [facility] Unavailable Lucas Nuno MD Unavailable +- Meghan Cox [facility] Unavailable [phone] Encounter Details Date Type Department Care Team (Late st Contact Info) Description 12/10/2021 [facility] [address] [place] [address] Paulina Denny RN Social History Tobacco Use Types Packs/Day Years Used Date Smoking Tobacco: Former Smokeless Tobacco: Never Alcohol Use Standard Drinks/Week Comments Not Currently 0 (1 standard drink = 0.6 oz pur e alcohol) Perry Depression Scale Answer Date Recorded Perry Depression Score 1 07/06/2021 Last EPDS Self Harm Result Not on file 07/06 Comments No Sex and Gender Information Value Date Recorded Sex Assigned at Female 06/03/2022 7:36 AM CDT 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 PARQUETRY FLOOR LAYER Gender Identity Female 06/03/2022 7:36 AM CDT [...] documented as of this encounter Care Teams Drafter Cartographic Relationship Specialty Start Date End Date [facility] [address] [facility] [place] [address] PCP - General 01/02/14 03/23/23 [place] [address] [address] [place] [address] PCP - General Family Medicine 03/13/25 Leatha Wagner APRN [employer] DEVELOPER [address] [place] [address] Assigned Surgical Provider 11/02/21 09/04/22 Mariana Acosta PA-C [address] [place] [address] Assigned Surgical Provider 09/05/22 12/09/23 Lucas Nuno MD [address] [address] Assigned Surgical Provider 12/10/23 01/07/24 Mariana Acosta PA-C [address] [address] Assigned Surgical Provider 01/08/24 03/08/24 Lucas Nuno MD [address] [address] Assigned Surgical Provider 03/09/24 12/09/24 Mariana Acosta PA-C [address] [address] Assigned Surgical Provider 12/10/24 02/06/25 Purvi Jeong [facility] [address] [place] [id number] Pharmacist Pharmacist Hazardous Waste Remover 01/03/25 Lucas Nuno MD [address] [place] [address] Assigned Surgical Provider 02/07/25 Meghan Cox [facility] [address] [place] [address] Pharmacist Pharmacist Hazardous Waste Remover 03/20/25 documented as of this encounter
--- OUTSIDE RECORDS SUMMARY | 2025-07-30 18:48 | XMS_ITS | Clinical Summary ---
Author Organization [facility] Address [address] [facility] [place] [address] Care Team Providers Care Fishing Rod Trimmer Name Role Phone Mariluz Diamond MD Primary Care Provider Unavailab le Source Comments You are receiving this document as you are listed as the primary care provider,follow-up provider, or the patient has been referred to you for consultation.This is in compliance with the Medicare and[facility] EHR Incentive Program,which states Providers who transition their patient to another setting of careor provider of care or refers their patient to another provider of care shouldprovide summary care record for each transition of care or referral. [email or web address] Allergies Active Allergy Reactions Criticality Noted Date [...] (12/27/2020): 11/14/2018 LSIL. Plan: Pap due 10/2019 [facility] review: 05/2016: NILM 10/2018: LSIL (age 23) [...] contact Iwona Cordero, Healthy Beginnings Specialist, at [phone]. 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 Not on file [...] 12/19/20212020, 11/14/2018 (Completed) COVID-19 Vaccine ( season) 2025 12/26/2021, 06/26/2021, [...] AG/AB 4TH GEN Routine 12/19/2020 9:24 AM MANAGER PARTY Screening examination for venereal disease CYTOLOGY (PAP) Routine 12/19/2020 9:23 AM MANAGER PARTY Screening for malignant neoplasm of cervix from Last 3 Months or Most Recently Relevant to Health Maintenance Results * Hepatitis C Antibody, with Reflex (05/22/2021 2:15 PM CDT) Hepatitis C Antibody Negative (Non Reactive) Negative (Non Reactive) 05/22/2021 7:29 PM CDT [facility] Comment:Antibodies to HCV no t detected. Does not exclude the possiblity of exposure to HCV. Blood Venipuncture / Unknown 05/22/2021 2:15 PM CDT 05/22/2021 2:15 PM CDT us Olivia Galvan MD LAB_1 Final Result [facility] [address] * HIV 1/2 Ag/Ab 4th Generation (12/19/2020 9:24 AM MANAGER PARTY) HIV 1/2 Antigen/Antib chad (4th generation) Negative (Non Reactive) Negative (Non Reactive) 12/19/2020 1:00 PM MANAGER PARTY [facility] Comment:HIV-1 p24 Antigen an d HIV-1/HIV-2 Antibody not detected Blood Venipuncture / Unknown 12/19/2020 9:24 AM MANAGER PARTY 12/19/2020 9:24 AM MANAGER PARTY us Xochitl Beard APRN, HALLIE LAB_1 Final R esult [facility] [address] [employer] [address] * PAP Test (12/19/2020 9:23 AM MANAGER PARTY) Case Report Pap Case: [id number] Authorizing Provider: Xochitl Beard APRN, CNP Collected: 12/19/2020 0923 Ordering Location: [facility] Received: 12/19/2020 0939 Services-FOUNDRY EQUIPMENT MECHANIC First Screen: Mariluz Loza CT (ASCP) Specimen: Pap Test, Diagnostic, Cervix/Endocervix 12/23/2020 4:03 PM MANAGER PARTY [facility] Pap Specimen Adequacy Satisfactory for evaluation, endocervical/simental sformation zone component present. 12/23/2020 4:03 PM MANAGER PARTY [facility] Pap Interpretation Negative for intraepithelial lesion or malignancy (NILM). 12/23/2020 4:03 PM MANAGER PARTY [facility] at 1603 MANAGER PARTY Pap Disclaimer The Pap test is a screening test designed to aid in the detection of cervical cancer and its precursor lesions. It is not a diagnostic procedure and should not be used as the sole means of detecting cervical cancer. Both false-positive and false-negative results may occur. 12/23/2020 4:03 PM MANAGER PARTY [facility] Gross Description The specimen is received in SurePath fixative and properly labeled. 1 Pap-stained SurePath slide is prepared. 12/23/2020 4:03 PM MANAGER PARTY [facility] Embedded Images 4:03 PM MANAGER PARTY [facility] Other Specimen Type ENTIRE ENDOCERVIX / Unknown 12/19/2020 9:23 AM MANAGER PARTY 12/19/2020 9:39 AM MANAGER PARTY Comment:LMP: Patient's last menstrual period was 10/23/2020 (exact date). Xochitl Beard APRN, GEOTHERMAL SYSTEM INSTALLER LAB PATHOLOGY Final R esult [facility] [address] [place] [address], [facility] from Last 3 Months or Most Recently Relevant to Health Maintenance Insurance [facility] Care Teams Fishing Rod Trimmer Relationship Specialty Start Date End Date Mariluz Diamond MD PCP - General Family Practice 11/25/18
--- OUTSIDE RECORDS SUMMARY | 2025-07-30 18:48 | XMS_ITS | Encounter Summary ---
Author Organization [place] Address [facility] [place] [address] Care Team Providers Care Mechanical Systems Engineer Name Role Phone [facility], [facility] Primary Care Provider Leatha Wagner APRN [facility] Unavailable [phone] Mraiana Acosta-C Unavailable [phone] Sarah Juares MD Primary Care Provider [phone] Lucas Nuno MD Unavailable +-36 Mariana AcostaC Unavailable [phone] Lucas Nuno MD Unavailable +-6 13 Mariana AcostaC Unavailable [phone] Purvi Jeong [facility] Unavailable [phone] Lucas Nuno MD Unavailable +- Meghan Cox [facility] Unavailable [phone] Encounter Details Date Type Department Care Team (Late st Contact Info) Description 06/02/2022 [facility] Medical Advice [facility] [address] 4th [place] [address] Rita Gillespie, EMT Social History Tobacco Use Types Packs/Day Years Used Date Smoking Tobacco: Former Smokeless Tobacco: Never Alcohol Use Standard Drinks/Week Comments Not Currently 0 (1 standard drink = 0.6 oz pur e alcohol) [place] Depression Scale Answer Date Recorded [place] Depression Score 1 07/06/2021 Last EPDS Self Harm Result Not on file 07/06 Comments No Sex and Gender Information Value Date Recorded Sex Assigned at Female 06/03/2022 7:36 AM CDT 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 Gender Identity Female 06/03/2022 7:36 AM [...] documented as of this encounter Care Teams Mechanical Systems Engineer Relationship Specialty Start Date End Date [facility] [address] [facility] [place] [address] PCP - General 01/02/14 03/23/23 [place] [address] [facility] [place] [address] PCP - General Family Medicine 03/13/25 Leatha Wagner APRN COMPETENCY EVALUATED NURSE AIDE [address] [place] [address] Assigned Surgical Provider 11/02/21 09/04/22 Mariana Acosta PA-C [address] [place] [address] Assigned Surgical Provider 09/05/22 12/09/23 Lucas Nuno MD [address] [address] Assigned Surgical Provider 12/10/23 01/07/24 Mariana Acosta PA-C [address] [address] Assigned Surgical Provider 01/08/24 03/08/24 Lucas Nuno MD [address] [address] Assigned Surgical Provider 03/09/24 12/09/24 Mariana Acosta PA-C [address] [address] Assigned Surgical Provider 12/10/24 02/06/25 Purvi Jeong [facility] [address] [place] [address] 207125 Pharmacist Pharmacist Feather Washer 01/03/25 Lucas Nuno MD [address] [place] [address] Assigned Surgical Provider 02/07/25 Meghan Cox [facility] [address] [place] [address] Pharmacist Pharmacist Feather Washer 03/20/25 documented as of this encounter
--- OUTSIDE RECORDS SUMMARY | 2025-07-30 18:48 | XMS_ITS | Encounter Summary ---
Author Organization [place] Address [facility] [place] [address] Care Team Providers Care Ecommerce Analyst Name Role Phone [facility], [facility] Primary Care Provider Leatha Wagner APRN [facility] Unavailable [phone] Mariana Acosta-C Unavailable [phone] Sarah Juares MD Primary Care Provider [phone] Lucas Nuno MD Unavailable +-31 Mariana AcostaC Unavailable [phone] Lucas Nuno MD Unavailable +- 65 Mariana AcostaC Unavailable [phone] Purvi Jeong [facility] Unavailable [phone] Lucas Nuno MD Unavailable +- 44 Meghan Cox [facility] Unavailable [phone] Encounter Details Date Type Department Care Team (Late st Contact Info) Description 12/17/2021 [facility] Medical Advice [facility] [address] 4th [place] [address] QuirinopenGiuliana Social History Tobacco Use Types Packs/Day Years Used Date Smoking Tobacco: Former Smokeless Tobacco: Never Alcohol Use Standard Drinks/Week Comments Not Currently 0 (1 standard drink = 0.6 oz pur e alcohol) [place] Depression Scale Answer Date Recorded [place] Depression Score 1 07/06/2021 Last EPDS Self Harm Result Not on file 07/06 Comments No Sex and Gender Information Value Date Recorded Sex Assigned at Female 06/03/2022 7:36 AM CDT 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 MANAGER CODING Gender Identity Female 06/03/2022 7:36 AM CDT [...] documented as of this encounter Care Teams Ecommerce Analyst Relationship Specialty Start Date End Date [facility], [facility] [address] [facility] [place] [address] PCP - General 01/02/14 03/23/23 [place] [address] [place] [address] PCP - General Family Medicine 03/13/25 Leatha Wagner APRN [facility] [address] [place] [address] Assigned Surgical Provider 11/02/21 09/04/22 Mariana Acosta PA-C [address] [place] [address] Assigned Surgical Provider 09/05/22 12/09/23 Lucas Nuno MD [address] [address] Assigned Surgical Provider 12/10/23 01/07/24 Mariana Acosta PA-C [address] [address] Assigned Surgical Provider 01/08/24 03/08/24 Lucas Nuno MD [address] [address] Assigned Surgical Provider 03/09/24 12/09/24 Mariana Acosta PA-C [address] [address] Assigned Surgical Provider 12/10/24 02/06/25 Purvi Jeong [facility] [address] [place] [address] Pharmacist Pharmacist Broomcorn Thresher 01/03/25 Lucas Nuno MD [address] [place] [address] Assigned Surgical Provider 02/07/25 Meghan Cox [facility] [address] [place] [address] Pharmacist Pharmacist Broomcorn Thresher 03/20/25 documented as of this encounter
--- OUTSIDE RECORDS SUMMARY | 2025-07-30 18:48 | XMS_ITS | Encounter Summary ---
Author Organization [place] Address [address] [facility] [place] [address] Care Team Providers Care Fur Vault Attendant Name Role Phone Sarah Juares MD Primary Care Provider Purvi Jeong [facility] Unavailable [phone] Lucas Nuno MD Unavailable [phone] Meghan Cox [facility] Unavailable [phone] Encounter Details Date Type Department Care Team (Late st Contact Info) Description 06/06/2025 [facility] Medical Advice [facility] [place] [address] [facility] [address] [place] [address] Lucas Nuno MD [address] [facility] [address] [place] [address] Social History Tobacco Use Types Packs/Day Years Used Date Smoking Tobacco: Former Smokeless Tobacco: Never Alcohol Use Standard Drinks/Week Comments Not Currently 0 (1 standard drink = 0.6 oz pur e alcohol) rare PHQ-2 Answer Date Recorded PHQ-2 Score 0 02/22/2025 [place] Depression Scale Answer Date Recorded [place] Depression Score 1 07/06/2021 Last EPDS Self [...] in an abandoned building, in an overnight penitentiary, or couch-surfing.) Yes 03/21/2025 Are you worried [...] AM CDT 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 Gender Identity Female 06/03/2022 7:36 AM CDT Sexual Orientation Straight 06/03/2022 7: 36 AM CDT documented as of this encounter Plan of Treatment Not on file documented as of this encounter Visit Diagnoses Not on filedocumented in this encounter Care Teams Fur Vault Attendant Relationship Specialty [place] [address] [place] [address] PCP - General Family Medicine 03/13/25 Purvi Jeong Melody [address] [place] [address] [phone] Pharmacist Pharmacist Medical Records Receptionist 01/03/25 Lucas Nuno MD [address] [place] [address] 127345 Assigned Surgical Provider 02/07/25 Meghan Cox RPH [address] [place] [address] 107725 Pharmacist Pharmacist Medical Records Receptionist 03/20/25 documented as of this encounter
--- OUTSIDE RECORDS SUMMARY | 2025-07-30 18:48 | XMS_ITS | Patient Health Record ---
Author Organization [place] [facility] Address [address] [place] [address] Care Team Providers Care Data Lead Name Role Phone Stephane Castanona Primary Care Provider Allergies Allergen (clinical drug [...] Vaccine Route Administration Date Status Comme nts TDAP IM Intramuscular 05/25/2019 Administered Fluzone Quadravalent .5mL syringe IM Intramuscular 07/20/2019 Administered Social History Tobacco Use: Social History [...] Status W/U Status Risk Notes Problem Anemia of (77703828) Anemia affecting in third trimester (O99.013) Active confirmed Plan Of Treatment Pending Test Test Name Order Date HEMOGLOBIN A1c 05/08/2019 Insurance Providers Payer Name Payer Address Payer Phone Subscriber Number Group Number Insured Name Patient Relationship to Insured Coverage Start Date Coverage End Date BC[place] - (Client Bill) [place] [address] [id number] KALEB ALEMAN Self - patient is the insured Medical (General) History Medical History History ICD Code Pneumonia Former Smoker Anxiety and Depression Abnormal Pap Smear Post depression Surgical History Surgery Date(Month/Year) Gastric Sleeve 10/13/2016
--- OUTSIDE RECORDS SUMMARY | 2025-07-30 18:48 | XMS_ITS | CCD ---
Author Name Interface, [id number] Address [address] [place] [address] [address] [address] Organization [facility] Address [address] [facility] [address] [place] [address] Care Team Providers Care Music Arranger Name Role Phone Enzo Garg MD Unavailable Unavailable Allergies and Adverse Reactions Medication/Group Name Reaction Severity Date NSAIDS (Non-Steroidal Anti-Inflammatory Drug) 07/05/2023 Zithromax 07/05/2023 Reason for Visit OV 20 MIN Medications Date Name Route Dose Frequency Instructions Start Date End Date Status Fill Status Indication 07/02 Topirama te Oral inactive 07/02 Metronid azole Vaginal Gel 0.75 % active 07/02 Ferrous Sulfate Oral active 07/02 Sucralfa te Oral inactive 07/02 Phenterm ine Oral inactive 07/02 Apixaban Oral inactive 07/05 Enoxapar in Subcutan eous BID active 07/02 Rivaroxa ban Oral inactive 07/02 Brimonid ine Topical Gel 0.33 % active 07/02 Liraglut tam Subcutan eous Pen Injector (Saxenda ) inactive 07/02 Multivit amins Oral Tablet active 07/02 Omeprazo le Oral Delayed Release Capsule active Problems Diagnosis Status Date of Diagnosis Resolution Date IVC thrombosis Active Pulmonary embolism (disorder) Active 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
--- OUTSIDE RECORDS SUMMARY | 2025-07-30 18:48 | XMS_ITS | Encounter Summary ---
Author Organization [place] Address [facility] [place] [address] Care Team Providers Care Document Control Coordinator Name Role Phone [facility], [facility] Primary Care Provider Leatha Wagner APRN [facility] Unavailable [phone] Mariana Acosta-C Unavailable [phone] Sarah Juares MD Primary Care Provider [phone] Lucas Nuno MD Unavailable +-29 Mariana AcostaC Unavailable [phone] Lucas Nuno MD Unavailable +- 14 Mariana AcostaC Unavailable [phone] Purvi Jeong [facility] Unavailable Lucas Nuno MD Unavailable +- 85 Meghan Cox [facility] Unavailable [phone] Encounter Details Date Type Department Care Team (Late st Contact Info) Description 12/08/2021 [facility] Medical Advice [facility] [address] 4th [place] [address] Rita Gillespie, EMT Social History Tobacco Use Types Packs/Day Years Used Date Smoking Tobacco: Former Smokeless Tobacco: Never Alcohol Use Standard Drinks/Week Comments Not Currently 0 (1 standard drink = 0.6 oz pur e alcohol) [place] Depression Scale Answer Date Recorded [place] Depression Score 1 07/06/2021 Last EPDS Self Harm Result Not on file 07/06 Comments No Sex and Gender Information Value Date Recorded Sex Assigned at Female 06/03/2022 7:36 AM CDT 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 CISCO UNIFIED COMMUNICATIONS ENGINEER Gender Identity Female 06/03/2022 7:36 AM [...] documented as of this encounter Care Teams Document Control Coordinator Relationship Specialty Start Date End Date [facility], [facility] [address] [facility] [place] [address] PCP - General 01/02/14 03/23/23 [place] [address] [facility] [place] [address] PCP - General Family Medicine 03/13/25 Leatha Wagner APRN HOSPICE REGISTERED NURSE [address] [place] [address] Assigned Surgical Provider 11/02/21 09/04/22 Mariana Acosta PA-C [address] [place] [address] Assigned Surgical Provider 09/05/22 12/09/23 Lucas Nuno MD [address] [address] Assigned Surgical Provider 12/10/23 01/07/24 Mariana Acosta PA-C [address] [address] Assigned Surgical Provider 01/08/24 03/08/24 Lucas Nuno MD [address] [address] Assigned Surgical Provider 03/09/24 12/09/24 Mariana Acosta PA-C [address] [address] Assigned Surgical Provider 12/10/24 02/06/25 Purvi Jeong [facility] [address] [place] [address] 902255 Pharmacist Pharmacist Otm Consultant 01/03/25 Lucas Nuno MD [address] [place] [address] Assigned Surgical Provider 02/07/25 Meghan Cox [facility] [address] [place] [address] Pharmacist Pharmacist Otm Consultant 03/20/25 documented as of this encounter
[2025-07-30 18:49] VITALS: BP 152/110; PULSE 70; RESP 18; TEMP 37.1; O2SAT 99; BMI 40.5
--- OUTSIDE RECORDS SUMMARY | 2025-07-30 18:49 | XMS_ITS | Referral Summary ---
Author Organization [facility] Address [address] [place] [address] Care Team Providers Care Log Snaker Name Role Phone Provider, No Primary Primary [...] on file Legal Sex Female 8:59 PM PE ELECTRICAL ENGINEER Gender Identity Not on file Sexual Orientation Not on file Last Filed Vital Signs Vital Sign Reading Time Taken Comments Blood Pressure 123/87 11/14/2023 9:14 AM PE ELECTRICAL ENGINEER Pulse 90 11/14/2023 9:14 AM PE ELECTRICAL ENGINEER Temperature 36.9 C (98.5 F) 11/14/2023 9:14 AM PE ELECTRICAL ENGINEER Respiratory Rate - - Oxygen Saturation 98% 11/14/2023 9:14 AM PE ELECTRICAL ENGINEER Inhaled Oxygen Concentration - - Weight 122.9 [...] 08/08/2010 08/12/2010 7:4 4 AM CDT Narrative [facility] - 08/06/2011 1:34 AM CDT RUN DATE: 08/06/11 [facility]ORY PAGE 1 RUN TIME: [address] [place] [address] RUN USER: [employer] CYTOLOGY REPORT ----- ------- PATIENT: KALEB ALEMAN LOC: [facility] #: [id number] : 89 AGE/SX: 15/F ROOM: RE08/08/[address]: Angel Santos MD STATUS: REG REF BED: DIS: ----- ------- SPEC #: [id number] RECD: 08/12/10 STATUS: RONI SAMUELS #: [id number] MELANIE: 08/08/10- [facility] DR: Angel Santos MD ENTERED: 08/12/10 SP TYPE: THINPREP OTHR DR: ORDERED: [id number], THINPREP PAP PAP CLINICAL DATA LMP: 07-21-10 : NO HORMONE THERAPY: NO PREVIOUS SMEAR: NO PT. PHONE #: [phone] PT. ADDRESS: [address] CYTOLOGY RESULTS SPECIMEN ADEQUACY: SATISFACTORY FOR EVALUATION. RESULTS: NEGATIVE FOR INTRAEPITHELIAL LESION OR MALIGNANCY. Signed Electronically Signed JAKE TERAN 08/12/10 ----- ------- END OF REPORT Procedure Note 08/08/2011 RUN DATE: 08/06/11 [facility] LABORATORYPAGE 1 RUN TIME: [address] [place] [address] RUN USER: [employer] CYTOLOGY REPORT ----- ------- PATIENT: KALEB ALEMAN LOC: [facility] #: [id number] : 89 AGE/SX: 15/F ROOM:RE08/08/[address]: Angel Santos MD STATUS: REG REF BED:DIS: ----- ------- SPEC #: [id number] RECD: 08/12/10 STATUS: [facility] #: [id number] MELANIE: 08/08/10- [facility] DR: Pop Santos MD. ENTERED: 08/12/10 SP TYPE: THINPREP OTHR DR: ORDERED: [id number], THINPREP PAP PAP CLINICAL DATA LMP: 07-21-10 : NO HORMONE THERAPY: NO PREVIOUS SMEAR: NO PT. PHONE #: [phone] PT. ADDRESS: [address] CYTOLOGY RESULTS SPECIMEN ADEQUACY: SATISFACTORY FOR EVALUATION. RESULTS: NEGATIVE FOR INTRAEPITHELIAL LESION OR MALIGNANCY. Signed Electronically Signed JAKE TERAN 08/12/10 ----- ------- END OF REPORT us Angel Santos MD RANGE MANAGER CYTOLOGY Final Resul t [address] [place] [address] from Last 3 Months or Most Recently Relevant to Health Maintenance Insurance [facility] Care Teams Log Snaker Relationship Specialty Start Date End Date Provider, [place] [address] PCP - General 01/31/16 Additional Source Comments PLEASE NOTE: Replies to this message will not be received.[facility]
--- OUTSIDE RECORDS SUMMARY | 2025-07-30 18:49 | XMS_ITS | Encounter Summary ---
Author Organization [place] Address [address] [facility] [address] Care Team Providers Care Crop Farm Workers Name Role Phone Sarah Juares MD Primary Care Provider Purvi Jeong [facility] Unavailable [phone] Lucas Nuno MD Unavailable [phone] Meghan Cox [facility] Unavailable [phone] Encounter Details Date Type Department Care Team (Late st Contact Info) Description 02/22/2025 MyC Medical Advice [facility] [address] [address] Nahed Fay Social History Tobacco Use Types Packs/Day Years Used Date Smoking Tobacco: Former Smokeless Tobacco: Never Alcohol Use Standard Drinks/Week Comments Not Currently 0 (1 standard drink = 0.6 oz pur e alcohol) rare PHQ-2 Answer Date Recorded PHQ-2 Score 0 02/22/2025 [place] Depression Scale Answer Date Recorded [place] Depression Score 1 07/06/2021 Last EPDS Self [...] AM CDT 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 Gender Identity Female 06/03/2022 7:36 AM CDT Sexual Orientation Straight 06/03/2022 7 :36 AM CDT documented as of this encounter Plan of Treatment Not on file documented as of this encounter Visit Diagnoses Not on filedocumented in this encounter Care Teams Crop Farm Workers Relationship Specialty [place] [address] [place] [address] PCP - General Family Medicine 03/13/25 Purvi Jeong [facility] [address] [place] [address] [phone] Pharmacist Pharmacist Sap Business Objects Developer 01/03/25 Lucas Nuno MD [address] [place] [address] 897295 Assigned Surgical Provider 02/07/25 Meghan Cox Melody [address] [place] [address] 420655 Pharmacist Pharmacist Sap Business Objects Developer 03/20/25 documented as of this encounter
--- OUTSIDE RECORDS SUMMARY | 2025-07-30 18:49 | XMS_ITS | Encounter Summary ---
Author Organization [place] Address [address] [facility] [place] [address] Care Team Providers Care Sausage Linker Name Role Phone Mariana Acosta PA-C Unavailable + [phone] Sarah Juares MD Primary Care Provider [phone] Lucas Nuno MD Unavailable [phone] Mariana Acosta PA-C Unavailable Lucas Nuno MD Unavailable +[phone] Mariana Acosta PA-C Unavailable + [phone] Purvi Jeong [facility] Unavailable [phone] Lucas Nuno MD Unavailable [phone] Meghan Cox [facility] Unavailable [phone] Encounter Details Date Type Department Care Team (Late st Contact Info) Description 10/20/2023 [facility] [place] [address] [facility] [address] 4th [place] [address] Mariana Acosta PA-C [address] [facility] [address] [place] [address] Social History Tobacco Use Types Packs/Day Years Used Date Smoking Tobacco: Former Smokeless Tobacco: Never Alcohol Use Standard Drinks/Week Comments Not Currently 0 (1 standard drink = 0.6 oz pur e alcohol) rare PHQ-2 Answer Date Recorded PHQ-2 Score 0 05/12/2023 [place] Depression Scale Answer Date Recorded [place] Depression Score 1 07/06/2021 Last EPDS Self Harm Result Not on file 07/06 Adolescent Education Answer Date Record ed Getting School Help Needed Not on file 07/10 Comments No Sex and Gender Information Value Date Recorded Sex Assigned at Female 06/03/2022 7:36 AM CDT 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 CROSSING GATEMAN Gender Identity Female 06/03/2022 7:36 AM CDT Sexual Orientation Straight 06/03/2022 7: 36 AM CDT documented as of this encounter Plan of Treatment Not on file documented as of this encounter Visit Diagnoses Not on filedocumented in this encounter Care Teams Sausage Linker Relationship Specialty [place] [address] [facility] [place] [address] PCP - General Family Medicine 03/13/25 Mariana Acosta PA-C [address] [place] [address] 93226 Assigned Surgical Provider 09/05/22 12/09/23 Lucas Nuno MD [address] [place] [address] 31481 Assigned Surgical Provider 12/10/23 01/07/24 Mariana Acosta PA-C [address] [place] [address] 41331 Assigned Surgical Provider 01/08/24 03/08/24 Lucas Nuno MD [address] [place] [address] 30269 Assigned Surgical Provider 03/09/24 12/09/24 Mariana Acosta PA-C [address] [address] Assigned Surgical Provider 12/10/24 02/06/25 Purvi Jeong [facility] [address] [place] [address] Pharmacist Pharmacist Mail Carriers Supervisor 01/03/25 Lucas Nuno MD [address] [place] [address] 22135 Assigned Surgical Provider 02/07/25 Meghan Cox [facility] [address] [place] [address] Pharmacist Pharmacist Mail Carriers Supervisor 03/20/25 documented as of this encounter
--- OUTSIDE RECORDS SUMMARY | 2025-07-30 18:49 | XMS_ITS | Encounter Summary ---
Author Organization [place] Address [address] [facility] [place] [address] Care Team Providers Care Scale Assembly Set Up Worker Name Role Phone Sarah Juares MD Primary Care Provider Purvi Jeong [facility] Unavailable [phone] Lucas Nuno MD Unavailable [phone] Meghan Cox [facility] Unavailable [phone] Encounter Details Date Type Department Care Team (Late st Contact Info) Description 03/29/[address] [facility] [place] [address] [facility] [address] 4th [place] [address] Lucas Nuno MD [address] [place] [facility] 195 [place] [address] Social History Tobacco Use Types Packs/Day Years Used Date Smoking Tobacco: Former Smokeless Tobacco: Never Alcohol Use Standard Drinks/Week Comments Not Currently 0 (1 standard drink = 0.6 oz pur e alcohol) rare PHQ-2 Answer Date Recorded PHQ-2 Score 0 02/22/2025 [place] Depression Scale Answer Date Recorded [place] Depression Score 1 07/06/2021 Last EPDS Self [...] in an abandoned building, in an overnight fdc, or couch-surfing.) Yes 03/21/2025 Are you worried [...] AM CDT 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 Gender Identity Female 06/03/2022 7:36 AM CDT Sexual Orientation Straight 06/03/2022 7: 36 AM CDT documented as of this encounter Plan of Treatment Not on file documented as of this encounter Visit Diagnoses Not on filedocumented in this encounter Care Teams Scale Assembly Set Up Worker Relationship Specialty [place] [address] [place] [address] PCP - General Family Medicine 03/13/25 Purvi Jeong [place] [address] [place] [address] [phone] Pharmacist Pharmacist Service Establishment Attendant 01/03/25 Lucas Nuno MD [address] [place] [address] [phone] Assigned Surgical Provider 02/07/25 Meghan Cox RPH [address] [place] [address] [phone] Pharmacist Pharmacist Service Establishment Attendant 03/20/25 documented as of this encounter
--- OUTSIDE RECORDS SUMMARY | 2025-07-30 18:49 | XMS_ITS | Encounter Summary ---
Author Organization [place] Address [address] [facility] [place] [address] Care Team Providers Care Verification Rep Name Role Phone Sarah Juares MD Primary Care Provider [phone] Purvi Jeong [facility] Unavailable [phone] Lucas Nuno MD Unavailable [phone] Meghan Cox [facility] Unavailable [phone] Encounter Details Date Type Department Care Team (Late st Contact Info) Description 04/12/2025 MyC Medical Advice [facility] [place] [address] 4th [place] [address] Lucas Nuno MD [address] [facility] 195 [place] [address] Social History Tobacco Use Types Packs/Day Years Used Date Smoking Tobacco: Former Smokeless Tobacco: Never Alcohol Use Standard Drinks/Week Comments Not Currently 0 (1 standard drink = 0.6 oz pur e alcohol) rare PHQ-2 Answer Date Recorded PHQ-2 Score 0 02/22/2025 [place] Depression Scale Answer Date Recorded [place] Depression Score 1 07/06/2021 Last EPDS Self [...] in an abandoned building, in an overnight nursing home, or couch-surfing.) Yes 03/21/2025 Are you [...] AM CDT 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 MIG TIG WELDER Gender Identity Female 06/03/2022 7:36 AM CDT Sexual Orientation Straight 06/03/2022 7: 36 AM CDT documented as of this encounter Plan of Treatment Not on file documented as of this encounter Visit Diagnoses Not on filedocumented in this encounter Care Teams Verification Rep Relationship Specialty [place] [address] [place] [address] PCP - General Family Medicine 03/13/25 Purvi Jeong [place] [address] [place] [address] [phone] Pharmacist Pharmacist Gate Clerk 01/03/25 Lucas Nuno MD [address] [place] [address] 121985 Assigned Surgical Provider 02/07/25 Meghan Cox RPH [address] [place] [address] [phone] Pharmacist Pharmacist Gate Clerk 03/20/25 documented as of this encounter
--- OUTSIDE RECORDS SUMMARY | 2025-07-30 18:49 | XMS_ITS | Encounter Summary ---
Author Organization [employer] Address [address] [place] [address] Care Team Providers Care Barrelhead Inspector Name Role Phone Unknown, Provider Primary Care Provider Unavaila ble Provider, No Primary Primary Care Provider Unava ilable Encounter Details Date Type Department Care Team (Late st Contact Info) Description 08/26/2006 Historical Notes [facility] Family Medicine [address] 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 : 1995 Single/ Language: Undefined/ Ethnicity: [...] this time. I will give parents at [place] form and teachers forms will also get [...] on filedocumented in this encounter Care Teams Barrelhead Inspector Relationship Specialty Start Date End Date Unknown, Provider . YESICA PURI [address] PCP - General 10/07/15 01/30/16 Provider, No Primary . YESICA PURI [address] PCP - General 01/31/16 documented as of this encounter Additional Source Comments PLEASE NOTE: Replies to this message will not be received.[facility]
--- OUTSIDE RECORDS SUMMARY | 2025-07-30 18:49 | XMS_ITS | Encounter Summary ---
Author Organization [place] Address [facility] [place] [address] Care Team Providers Care Lead Infrastructure Architect Name Role Phone Clinic, [facility] Primary Care Provider Leatha Wagner APRN [facility] Unavailable [phone] Mariana Acosta-C Unavailable + [phone] Sarah Juares MD Primary Care Provider [phone] Lucas Nuno MD Unavailable [phone] Mariana AcostaC Unavailable + [phone] Lucas Nuno MD Unavailable +[phone] Mariana Acosta PA-C Unavailable [phone] Purvi Jeong [facility] Unavailable [phone] Lucas Nuno MD Unavailable [phone] Meghan Cox [facility] Unavailable [phone] Encounter Details Date Type Department Care [...] AM CDT 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 Gender Identity Female 06/03/2022 7:36 AM [...] documented as of this encounter Care Teams Lead Infrastructure Architect Relationship Specialty Start Date End Date [facility], [facility] [address] [place] [address] PCP - General 01/02/14 03/23/23 [place] [address] [place] [address] PCP - General Family Medicine 03/13/25 Leatha Wagner APRN [facility] 9 [place] [address] Assigned Surgical Provider 11/02/21 09/04/22 Mariana Acosta PA-C [address] 368235 Assigned Surgical Provider 09/05/22 12/09/23 Lucas Nuno MD [address] [phone] Assigned Surgical Provider 12/10/23 01/07/24 Mariana Acosta PA-C [address] [address] Assigned Surgical Provider 01/08/24 03/08/24 Lucas Nuno MD [address] [address] Assigned Surgical Provider 03/09/24 12/09/24 Mariana Acosta PA-C [address] [address] Assigned Surgical Provider 12/10/24 02/06/25 Purvi Jeong RPH [address] [place] [address] [phone] Pharmacist Pharmacist Audio Visual Technician 01/03/25 Lucas Nuno MD [address] [address] Assigned Surgical Provider 02/07/25 Meghan Cox RPH [address] [place] [address] [phone] Pharmacist Pharmacist Audio Visual Technician 03/20/25 documented as of this encounter
--- OUTSIDE RECORDS SUMMARY | 2025-07-30 18:49 | XMS_ITS | Encounter Summary ---
Author Organization [place] Address [address] [facility] [place] [address] Care Team Providers Care Automobile Service Writer Name Role Phone Mariana Acosta PA-C Unavailable + [phone] Sarah Juares MD Primary Care Provider [phone] Lucas Nuno MD Unavailable [phone] Mariana Acosta PA-C Unavailable + [phone] Lucas Nuno MD Unavailable [phone] Mariana Acosta PA-C Unavailable + [phone] Purvi Jeong [facility] Unavailable [phone] Lucas Nuno MD Unavailable [phone] Meghan Cox [facility] Unavailable [phone] Reason for Visit * Reason Onset Date Comments Refill Request 10/20/2023 Encounter Details Date Type Department Care Team (Late st Contact Info) Description 10/20/2023 [facility] [place] [address] [facility] [address] 4th [place] [address] Mariana Acosta PA-C [address] [facility] 195 [place] [address] Refill Request Social History Tobacco Use Types Packs/Day Years Used Date Smoking Tobacco: Former Smokeless Tobacco: Never Alcohol Use Standard Drinks/Week Comments Not Currently 0 (1 standard drink = 0.6 oz pur e alcohol) rare PHQ-2 Answer Date Recorded PHQ-2 Score 0 05/12/2023 [place] Depression Scale Answer Date Recorded [place] Depression Score 1 07/06/2021 Last EPDS Self Harm Result Not on file 07/06 Adolescent Education Answer Date Record ed Getting School Help Needed Not on file 07/10 Comments No Sex and Gender Information Value Date Recorded Sex Assigned at Female 06/03/2022 7:36 AM CDT 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 Gender Identity Female 06/03/2022 7:36 AM CDT Sexual Orientation Straight 06/03/2022 7: 36 AM CDT documented as of this encounter Plan of Treatment Not on file documented as of this encounter Visit Diagnoses Diagnosis Class 2 severe obesity due to excess calories with serious comorbidity and body mass index (BMI) of 39.0 to 39.9 in adult documented in this encounter Care Teams Automobile Service Writer Relationship Specialty [place] [address] [facility] [place] [address] PCP - General Family Medicine 03/13/25 Mariana Acosta PA-C [address] 114685 Assigned Surgical Provider 09/05/22 12/09/23 Lucas Nuno MD [address] [facility] [address] 497485 Assigned Surgical Provider 12/10/23 01/07/24 Mariana Acosta PA-C [address] 405365 Assigned Surgical Provider 01/08/24 03/08/24 Lucas Nuno MD [address] [place] [address] 61888 Assigned Surgical Provider 03/09/24 12/09/24 Mariana Acosta PA-C [address] [place] [address] 46086 Assigned Surgical Provider 12/10/24 02/06/25 Purvi Jeong [facility] [address] [place] [address] [phone] Pharmacist Pharmacist Certified Medical Coding Specialist 01/03/25 Lucas Nuon MD [address] [place] [address] 02315 Assigned Surgical Provider 02/07/25 Meghan Cox [facility] [address] [place] [phone] Pharmacist Pharmacist Certified Medical Coding Specialist 03/20/25 documented as of this encounter
--- OUTSIDE RECORDS SUMMARY | 2025-07-30 18:49 | XMS_ITS | Encounter Summary ---
Author Organization [place] Address [facility] [place] [address] Care Team Providers Care Radon Inspector Name Role Phone [facility], [facility] Primary Care Provider Leatha Wagner APRN [facility] Unavailable [phone] Mariana Acosta-C Unavailable +[phone] Sarah Juares MD Primary Care Provider [phone] Lucas Nuno MD Unavailable +[phone] Mariana AcostaC Unavailable [phone] Lucas Nuno MD Unavailable +[phone] Mariana AcostaC Unavailable [phone] Purvi Jeong [facility] Unavailable [phone] Lucas Nuno MD Unavailable +[phone] Meghan Cox [facility] Unavailable [phone] Encounter Details Date Type Department Care Team (Late st Contact Info) Description 06/11/2022 Bree Medical Advice [facility] [address] 4th [place] [address] Keena Valente Social History Tobacco Use Types Packs/Day Years Used Date Smoking Tobacco: Former Smokeless Tobacco: Never Alcohol Use Standard Drinks/Week Comments Not Currently 0 (1 standard drink = 0.6 oz pur e alcohol) rare [place] Depression Scale Answer Date Recorded [place] Depression Score 1 07/06/2021 Last EPDS Self Harm Result Not on file 07/06 Comments No Sex and Gender Information Value Date Recorded Sex Assigned at Female 06/03/2022 7:36 AM CDT 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 Gender Identity Female 06/03/2022 7:36 AM CDT [...] documented as of this encounter Care Teams Radon Inspector Relationship Specialty Start Date End Date [facility], [facility] [address] [place] [address] PCP - General 01/02/14 03/23/23 [place] [address] [place] [address] PCP - General Family Medicine 03/13/25 Leatha Wagner APRN CUTTING TABLE OPERATOR [address] [place] [address] Assigned Surgical Provider 11/02/21 09/04/22 Mariana Acosta PA-C [address] [place] [address] Assigned Surgical Provider 09/05/22 12/09/23 Lucas Nuno MD [address] [address] Assigned Surgical Provider 12/10/23 01/07/24 Mariana Acosta PA-C [address] [address] Assigned Surgical Provider 01/08/24 03/08/24 Lucas Nuno MD [address] [place] [address] 97873 Assigned Surgical Provider 03/09/24 12/09/24 Mariana Acosta PA-C [address] [address] Assigned Surgical Provider 12/10/24 02/06/25 Purvi Jeong [facility] [address] [place] [address] Pharmacist Pharmacist Shearer Helper 01/03/25 Lucas Nuno MD [address] [address] Assigned Surgical Provider 02/07/25 Meghan Cox [facility] [address] [place] [address]509 Pharmacist Pharmacist Shearer Helper 03/20/25 documented as of this encounter
--- OUTSIDE RECORDS SUMMARY | 2025-07-30 18:49 | XMS_ITS | Encounter Summary ---
Author Organization [place] Address [address] [facility] [place] [address] Care Team Providers Care Merchandise Pickup/Receiving Associate Name Role Phone Sarah Juares MD Primary Care Provider [phone] Lucas Nuno MD Unavailable [phone] Mariana Acosta PA-C Unavailable + [phone] Pur[facility] Je[facility] Unavailable [phone] Lucas Nuno MD Unavailable [phone] Meghan Cox [facility] Unavailable [phone] Encounter Details Date Type Department Care Team (Late st Contact Info) Description 11/17/2024 [facility] Medical Advice [facility] [address] [place] [address] [place] Social History Tobacco Use Types Packs/Day Years Used Date Smoking Tobacco: Former Smokeless Tobacco: Never Alcohol Use Standard Drinks/Week Comments Not Currently 0 (1 standard drink = 0.6 oz pur e alcohol) rare PHQ-2 Answer Date Recorded PHQ-2 Score 0 11/15/2024 [place] Depression Scale Answer Date Recorded [place] Depression Score 1 07/06/2021 Last EPDS Self Harm Result Not on file 07/06 Adolescent Education Answer Date Record ed Getting School Help Needed Not on file 07/10 Comments No Sex and Gender Information Value Date Recorded Sex Assigned at Female 06/03/2022 7:36 AM CDT 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 Gender Identity Female 06/03/2022 7:36 AM CDT Sexual Orientation Straight 06/03/2022 7: 36 AM CDT documented as of this encounter Plan of Treatment Not on file documented as of this encounter Visit Diagnoses Not on filedocumented in this encounter Care Teams Merchandise Pickup/Receiving Associate Relationship Specialty [place] [address] [place] [address] PCP - General Family Medicine 03/13/25 Lucas Nuno MD [address] [place] [address] 24007 Assigned Surgical Provider 03/09/24 12/09/24 Mariana Acosta PA-C [address] [place] [address] 50642 Assigned Surgical Provider 12/10/24 02/06/25 Purvi Jeong [facility] [address] [place] [phone] Pharmacist Pharmacist Hand Or Machine Paster 01/03/25 Lucas Nuno MD [address] [place] [address] 30207 Assigned Surgical Provider 02/07/25 Meghan Cox [facility] [address] [place] [phone] Pharmacist Pharmacist Hand Or Machine Paster 03/20/25 documented as of this encounter
--- OUTSIDE RECORDS SUMMARY | 2025-07-30 18:49 | XMS_ITS | Encounter Summary ---
Author Organization [place] Address [address] [facility] [place] [address] Care Team Providers Care Numerical Control Drill Press Operator Name Role Phone Sarah Juares MD Primary Care Provider [phone] Lucas Nuno MD Unavailable [phone] Mariana Acosta PA-C Unavailable + [phone] Purvi Jeong [facility] Unavailable [phone] Lucas Nuno MD Unavailable [phone] Meghan Cox [facility] Unavailable [phone] Encounter Details Date Type Department Care Team (Late st Contact Info) Description 03/30/2024 MyC Medical Advice [facility] [address] [place] [address] Veronica Dickinson Social History Tobacco Use Types Packs/Day Years Used Date Smoking Tobacco: Former Smokeless Tobacco: Never Alcohol Use Standard Drinks/Week Comments Not Currently 0 (1 standard drink = 0.6 oz pur e alcohol) rare PHQ-2 Answer Date Recorded PHQ-2 Score 0 05/12/2023 [place] Depression Scale Answer Date Recorded [place] Depression Score 1 07/06/2021 Last EPDS Self Harm Result Not on file 07/06 Adolescent Education Answer Date Record ed Getting School Help Needed Not on file 07/10 Comments No Sex and Gender Information Value Date Recorded Sex Assigned at Female 06/03/2022 7:36 AM CDT 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 Gender Identity Female 06/03/2022 7:36 AM CDT Sexual Orientation Straight 06/03/2022 7: 36 AM CDT documented as of this encounter Plan of Treatment Not on file documented as of this encounter Visit Diagnoses Not on filedocumented in this encounter Care Teams Numerical Control Drill Press Operator Relationship Specialty [place] [address] [place] [address] PCP - General Family Medicine 03/13/25 Lucas Nuno MD [address] [place] [address] 29572 Assigned Surgical Provider 03/09/24 12/09/24 Mariana Acosta PA-C [address] [place] [address] 14240 Assigned Surgical Provider 12/10/24 02/06/25 Purvi Jeong [facility] [address] [place] [address]955 Pharmacist Pharmacist Community Organization Director 01/03/25 Lucas Nuno MD [address] [place] [address] 36866 Assigned Surgical Provider 02/07/25 Meghan Cox [facility] [address] [place] [address] [phone] Pharmacist Pharmacist Community Organization Director 03/20/25 documented as of this encounter
--- OUTSIDE RECORDS SUMMARY | 2025-07-30 18:49 | XMS_ITS | Encounter Summary ---
Author Organization [place] Address [address] [facility] [address] Care Team Providers Care Cmo & President Name Role Phone Mariana Acosta-Noreen Unavailable + [phone] Sarah Juares MD Primary Care Provider [phone] Lucas Nuno MD Unavailable [phone] Mariana AcostaC Unavailable + [phone] Lucas Nuno MD Unavailable [phone] Mariana Acosta-Noreen Unavailable + [phone] Purvi Jeong [facility] Unavailable [phone] Lucas Nuno MD Unavailable [phone] Meghan Cox [facility] Unavailable [phone] Encounter Details Date Type Department Care Team (Late st Contact Info) Description 05/12/2023 [facility] Medical Advice [facility]ACY [address] [place] [address] Christiano Hull Social History Tobacco Use Types Packs/Day Years Used Date Smoking Tobacco: Former Smokeless Tobacco: Never Alcohol Use Standard Drinks/Week Comments Not Currently 0 (1 standard drink = 0.6 oz pur e alcohol) rare PHQ-2 Answer Date Recorded PHQ-2 Score 0 05/12/2023 [place] Depression Scale Answer Date Recorded [place] Depression Score 1 07/06/2021 Last EPDS Self Harm Result Not on file 07/06 Comments No Sex and Gender Information Value Date Recorded Sex Assigned at Female 06/03/2022 7:36 AM CDT 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 FINANCIAL REPORTING CONSULTANT Gender Identity Female 06/03/2022 7:36 AM CDT [...] on filedocumented in this encounter Care Teams Cmo & President Relationship Specialty [place] [address] [facility] [place] [address] PCP - General Family Medicine 03/13/25 Mariana Acosta PA-C [address] 165215 Assigned Surgical Provider 09/05/22 12/09/23 Lucas Nuno MD [address] [address] Assigned Surgical Provider 12/10/23 01/07/24 Mariana Acosta PA-C [address] [address] Assigned Surgical Provider 01/08/24 03/08/24 Lucas Nuno MD [address] [address] Assigned Surgical Provider 03/09/24 12/09/24 Mariana Acosta PA-C [address] [place] [address] Assigned Surgical Provider 12/10/24 02/06/25 Purvi Jeong [facility] [address] [place] [address] Pharmacist Pharmacist Cambering Machine Operator 01/03/25 Lucas Nuno MD [address] [place] [address] Assigned Surgical Provider 02/07/25 Meghan Cox [facility] [address] [place] [address] Pharmacist Pharmacist Cambering Machine Operator 03/20/25 documented as of this encounter
--- OUTSIDE RECORDS SUMMARY | 2025-07-30 18:49 | XMS_ITS | Encounter Summary ---
Author Organization [place] Address [address] [facility] [place] [address] Care Team Providers Care Imaging Analyst Name Role Phone Mariana Acosta-Noreen Unavailable + [phone] Sarah Juares MD Primary Care Provider [phone] Lucas Nuno MD Unavailable [phone] Mariana Acosta-C Unavailable + [phone] Lucas Nuno MD Unavailable [phone] Mariana Acosta-Noreen Unavailable + [phone] Purvi Jeong [facility] Unavailable [phone] Lucas Nuno MD Unavailable [phone] Meghan Cox [facility] Unavailable [phone] Encounter Details Date Type Department Care Team (Late st Contact Info) Description 05/10/2023 [facility] Medical Advice [facility] [address] [place] [address] Paulina Denny RN Social History Tobacco Use Types Packs/Day Years Used Date Smoking Tobacco: Former Smokeless Tobacco: Never Alcohol Use Standard Drinks/Week Comments Not Currently 0 (1 standard drink = 0.6 oz pur e alcohol) rare PHQ-2 Answer Date Recorded PHQ-2 Score 0 05/12/2023 [place] Depression Scale Answer Date Recorded [place] Depression Score 1 07/06/2021 Last EPDS Self Harm Result Not on file 07/06 Comments No Sex and Gender Information Value Date Recorded Sex Assigned at Female 06/03/2022 7:36 AM CDT 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 Gender Identity Female 06/03/2022 7:36 AM [...] on filedocumented in this encounter Care Teams Imaging Analyst Relationship Specialty [place] [address] [facility] [place] [address] PCP - General Family Medicine 03/13/25 Mariana Acosta PA-C [address] [address] Assigned Surgical Provider 09/05/22 12/09/23 Lucas Nuno MD [address] [address] Assigned Surgical Provider 12/10/23 01/07/24 Mariana Acosta PA-C [address] [address] Assigned Surgical Provider 01/08/24 03/08/24 Lucas Nuno MD [address] [address] Assigned Surgical Provider 03/09/24 12/09/24 Mariana Acosta PA-C [address] [address] Assigned Surgical Provider 12/10/24 02/06/25 Purvi Jeong [facility] [address] [place] [address] Pharmacist Pharmacist Burlap Roll Coverer 01/03/25 Lucas Nuno MD [address] [place] [address] Assigned Surgical Provider 02/07/25 Meghan Cox [facility] [address] [place] [address] Pharmacist Pharmacist Burlap Roll Coverer 03/20/25 documented as of this encounter
--- OUTSIDE RECORDS SUMMARY | 2025-07-30 18:49 | XMS_ITS | Encounter Summary ---
Author Organization [place] Address [address] [facility] [place] [address] Care Team Providers Care Row Boss Name Role Phone Sarah Juares MD Primary Care Provider [phone] Lucas Nuno MD Unavailable [phone] Mariana Acosta PA-C Unavailable + [phone] Purvi Jeong [facility] Unavailable [phone] Lucas Nuno MD Unavailable [phone] Meghan Cox [facility] Unavailable [phone] Encounter Details Date Type Department Care Team (Late st Contact Info) Description 11/15/2024 MyC Medical Advice [facility] [address] 4th [place] [address] Nelda Mcdaniel Social History Tobacco Use Types Packs/Day Years Used Date Smoking Tobacco: Former Smokeless Tobacco: Never Alcohol Use Standard Drinks/Week Comments Not Currently 0 (1 standard drink = 0.6 oz pur e alcohol) rare PHQ-2 Answer Date Recorded PHQ-2 Score 0 11/15/2024 [place] Depression Scale Answer Date Recorded [place] Depression Score 1 07/06/2021 Last EPDS Self Harm Result Not on file 07/06 Adolescent Education Answer Date Record ed Getting School Help Needed Not on file 07/10 Comments No Sex and Gender Information Value Date Recorded Sex Assigned at Female 06/03/2022 7:36 AM CDT 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 Gender Identity Female 06/03/2022 7:36 AM CDT Sexual Orientation Straight 06/03/2022 7: 36 AM CDT documented as of this encounter Plan of Treatment Not on file documented as of this encounter Visit Diagnoses Not on filedocumented in this encounter Care Teams Row Boss Relationship Specialty [place] [address] [place] [address] PCP - General Family Medicine 03/13/25 Lucas Nuno MD [address] [address] Assigned Surgical Provider 03/09/24 12/09/24 Mariana Acosta PA-C [address] [address] Assigned Surgical Provider 12/10/24 02/06/25 Purvi Jeong [facility] [address] [place] [address] Pharmacist Pharmacist Sec Accountant 01/03/25 Lucas Nuno MD [address] [address] Assigned Surgical Provider 02/07/25 Meghan Cox [facility] [address] [place] [address] Pharmacist Pharmacist Sec Accountant 03/20/25 documented as of this encounter
--- OUTSIDE RECORDS SUMMARY | 2025-07-30 18:49 | XMS_ITS | Encounter Summary ---
Author Organization [place] Address [address] [facility] [place] [address] Care Team Providers Care Jazz Singer Name Role Phone Sarah Juares MD Primary Care Provider [phone] Mariana AcostaC Unavailable + [phone] Purvi Jeong [facility] Unavailable [phone] Lucas Nuno MD Unavailable [phone] Meghan Cox [facility] Unavailable [phone] Encounter Details Date Type Department Care Team (Late st Contact Info) Description 01/09/2025 MyC Medical Advice [facility] Gastroenterology [facility] [address] 4th [place] [address] Mirna Ibrahim, ELIZABETH Social History Tobacco Use Types Packs/Day Years Used Date Smoking Tobacco: Former Smokeless Tobacco: Never Alcohol Use Standard Drinks/Week Comments Not Currently 0 (1 standard drink = 0.6 oz pur e alcohol) rare PHQ-2 Answer Date Recorded PHQ-2 Score 0 11/15/2024 [place] Depression Scale Answer Date Recorded [place] Depression Score 1 07/06/2021 Last EPDS Self Harm Result Not on file 07/06 Adolescent Education Answer Date Record ed Getting School Help Needed Not on file 07/10 Comments No Sex and Gender Information Value Date Recorded Sex Assigned at Female 06/03/2022 7:36 AM CDT 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 RESEARCH MANUFACTURING OPERATOR Gender Identity Female 06/03/2022 7:36 AM CDT Sexual Orientation Straight 06/03/2022 7: 36 AM CDT documented as of this encounter Plan of Treatment Not on file documented as of this encounter Visit Diagnoses Not on filedocumented in this encounter Care Teams Jazz Singer Relationship Specialty [place] [address] [place] [address] PCP - General Family Medicine 03/13/25 Mariana Acosta PA-C [address] [place] [address] Assigned Surgical Provider 12/10/24 02/06/25 Purvi Jeong [facility] [address] [place] [address] Pharmacist Pharmacist Deputy Clerk Of Court 01/03/25 Lucas Nuno MD [address] [place] [address] Assigned Surgical Provider 02/07/25 Meghan Cox [facility] [address] [place] [address] Pharmacist Pharmacist Deputy Clerk Of Court 03/20/25 documented as of this encounter
--- OUTSIDE RECORDS SUMMARY | 2025-07-30 18:49 | XMS_ITS | Encounter Summary ---
Author Organization [place] Address [address] [facility] [place] [address] Care Team Providers Care Electroplater Helper Name Role Phone Clinic, [facility] Primary Care Provider Leatha Wagner APRN [facility] Unavailable [phone] Mariana Acosta-C Unavailable [phone] Sarah Juares MD Primary Care Provider [phone] Lucas Nuno MD Unavailable [phone] Mariana AcostaC Unavailable [phone] Lucas Nuno MD Unavailable [phone] Mariana AcostaC Unavailable [phone] Purvi Jeong [facility] Unavailable [phone] Lucas Nuno MD Unavailable [phone] Meghan Cox [facility] Unavailable [phone] Encounter Details Date Type Department Care Team (Late st Contact Info) Description 07/10/2022 [facility] Medical Advice [facility] [place] [address] [facility] [address] 4th [place] [address] Lucas Nuno MD [address] [place] [address] 195 [place] [address] Social History Tobacco Use Types Packs/Day Years Used Date Smoking Tobacco: Former Smokeless Tobacco: Never Alcohol Use Standard Drinks/Week Comments Not Currently 0 (1 standard drink = 0.6 oz pur e alcohol) rare [place] Depression Scale Answer Date Recorded [place] Depression Score 1 07/06/2021 Last EPDS Self Harm Result Not on file 07/06 Comments No Sex and Gender Information Value Date Recorded Sex Assigned at Female 06/03/2022 7:36 AM CDT 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 IT TELECOM TECHNICIAN Gender Identity Female 06/03/2022 7:36 AM [...] documented as of this encounter Care Teams Electroplater Helper Relationship Specialty Start Date End Date [facility], [facility] [address] [place] [address] PCP - General 01/02/14 03/23/23 [place] [address] [place] [address] PCP - General Family Medicine 03/13/25 Leatha Wagner APRN LAND LEASING INFORMATION CLERK [address] [place] [address] Assigned Surgical Provider 11/02/21 09/04/22 Mariana Acosta PA-C [address] [address] Assigned Surgical Provider 09/05/22 12/09/23 Lucas Nuno MD [address] [address] Assigned Surgical Provider 12/10/23 01/07/24 Mariana Acosta PA-C [address] [address] Assigned Surgical Provider 01/08/24 03/08/24 Lucas Nuno MD [address] [address] Assigned Surgical Provider 03/09/24 12/09/24 Mariana Acosta PA-C [address] [address] Assigned Surgical Provider 12/10/24 02/06/25 Purvi Jeong [facility] [address] [place] [address] Pharmacist Pharmacist Body Care Manager 01/03/25 Lucas Nuno MD [address] [address] Assigned Surgical Provider 02/07/25 Meghan Cox [facility] [address] [place] [address] Pharmacist Pharmacist Body Care Manager 03/20/25 documented as of this encounter
--- OUTSIDE RECORDS SUMMARY | 2025-07-30 18:49 | XMS_ITS | Clinical Summary ---
Author Organization [place] Address [address] [facility] [place] [address] Care Team Providers Care Appliance Repairer Name Role Phone Sarah Juares MD Primary Care Provider Purvi Jeong [facility] Unavailable [phone] Lucas Nuno MD Unavailable [phone] Meghan Cox [facility] Unavailable [phone] Allergies Active Allergy Reactions Criticality Noted [...] 4 MG/0.1ML nasal sprayIndication s:Acute post-operative pain [place] 1 spray (4 mg) into one nostril [...] [facility] Assessment & Plan (12/09/2021 6:41 PM REAL ESTATE COORDINATOR): 10% improvement of reflux (perecieved) since adding [...] months Assessment & Plan (10/23/2021 5:11 PM REAL ESTATE COORDINATOR): 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 Did great [...] Encounters Date Type Department Care Team Description 06/06/2025 MyC Medical Advice [facility] [address] [place] [address] Lucas Nuno MD 05/06/2025 My[facility] Medical Advice [facility] [address] [address] Mariana Acosta PA-C from Last 3 Months Family History Medical [...] Date Recorded PHQ-2 Score 0 02/22/2025 [place] Depression Scale Answer Date Recorded [place] Depression Score 1 07/06/2021 Last EPDS Self [...] in an abandoned building, in an overnight fci, or couch-surfing.) Yes 03/21/2025 Are you worried [...] AM CDT 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 REAL ESTATE COORDINATOR Gender Identity Female 06/03/2022 7:36 AM [...] 12/19/2020, 10/19, 08/08/2010 COVID-19 VACCINE ( season) 2025 12/26/2021, 06/26/2021, 05/27/2021 INFLUENZA VACCINE (#1) 2025 07/20/2019, 2018 DTAP/TDAP/TD VACCINE (5 - Td or Tdap) 05/25/2029 05/25/2019, 09/28/2016, 06/09/2006, Additional history exists ZOSTER VACCINE (1 of 2) 2044 HIV SCREENING Completed 12/19/2020, 01/2021, 12/01/2018 HEPATITIS C SCREENING Completed 05/22/2021 PHQ-2 [...] Procedure Name Priority Date/Time Associated Diagnosis Comments HIV 1&2 ANTIBODY (EXTERNAL RESULT) Routine 12/19/2020 9:24 AM REAL ESTATE COORDINATOR from Last 3 Months or Most Recently Relevant to Health Maintenance Results * HIV-1 Antibody (External Result) (12/19/2020 9:24 AM REAL ESTATE COORDINATOR) HIV 1&2 Antibody (External) Negative Nonreactive [facility] 12/19/2020 9:24 AM REAL ESTATE COORDINATOR us Patient Reported LAB - HIM EXTERNAL RESULT Final Result [facility] [address] [place] [address], [facility] [phone] from Last 3 Months or Most Recently Relevant to Health Maintenance Insurance [facility] OUT OF STATE [facility] * Guarantor: Karo Chavira Account Type Relation to Patient Date of Phone Billing Address Medication Therapy Self 1995 [id number] [place] [address] Advance Directives For more information, please contact: [phone] * Full Code (Latest Code Status on [...] 1:00 AM 05/17/2014 2:26 PM Care Teams Appliance Repairer Relationship Specialty [place] [address] [place] [address] PCP - General Family Medicine 03/13/25 Purvi Jeong RPH [address] [place] [address] [phone] Pharmacist Pharmacist Neurosurgery Research Director 01/03/25 Lucas Nuno MD [address] [place] [address] Assigned Surgical Provider 02/07/25 Meghan Cox RPH [address] [place] [address] Pharmacist Pharmacist Neurosurgery Research Director 03/20/25
--- OUTSIDE RECORDS SUMMARY | 2025-07-30 18:49 | XMS_ITS | Encounter Summary ---
Author Organization [place] Address [facility] [place] [address] Care Team Providers Care Fire Alarm Inspector Name Role Phone [facility] Primary Care Provider Mariana Acosta PA-C Unavailable + [phone] Sarah Juares MD Primary Care Provider [phone] Lucas Nuno MD Unavailable [phone] Mariana Acosta PA-C Unavailable +[phone] Lucas Nuno MD Unavailable [phone] Mariana Acosta PA-C Unavailable [phone] Purvi Jeong [facility] Unavailable [phone] Lucas Nuno MD Unavailable [phone] Meghan Cox [facility] Unavailable [phone] Encounter Details Date Type Department Care Team (Late st Contact Info) Description 02/17/2023 [facility] [address] 4th [place] [address] Paulina Denny RN Social History Tobacco Use Types Packs/Day Years Used Date Smoking Tobacco: Former Smokeless Tobacco: Never Alcohol Use Standard Drinks/Week Comments Not Currently 0 (1 standard drink = 0.6 oz pur e alcohol) rare [place] Depression Scale Answer Date Recorded [place] Depression Score 1 07/06/2021 Last EPDS Self Harm Result Not on file 07/06 Comments No Sex and Gender Information Value Date Recorded Sex Assigned at Female 06/03/2022 7:36 AM CDT 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 DRY HOUSE OPERATOR Gender Identity Female 06/03/2022 7:36 AM [...] as of this encounter Care Teams Fire Alarm Inspector Relationship Specialty Start Date End Date [facility] [address] [place] [address] PCP - General 01/02/14 03/23/23 [place] [address] [place] [address] PCP - General Family Medicine 03/13/25 Mariana Acosta PA-C [address] [address] Assigned Surgical Provider 09/05/22 12/09/23 Lucas Nuno MD [address] [facility] [address] [address] Assigned Surgical Provider 12/10/23 01/07/24 Mariana Acosta PA-C [address] [id number] Assigned Surgical Provider 01/08/24 03/08/24 Lucas Nuno MD [address] [place] [address] Assigned Surgical Provider 03/09/24 12/09/24 Mariana Acosta PA-C [address] [place] [address] Assigned Surgical Provider 12/10/24 02/06/25 Purvi Jeong [facility] [address] [place] [address] [phone] Pharmacist Pharmacist Mine Surveyor 01/03/25 Lucas Nuno MD [address] [place] [address] Assigned Surgical Provider 02/07/25 Meghan Cox [facility] [address] [place] [address] Pharmacist Pharmacist Mine Surveyor 03/20/25 documented as of this encounter
--- OUTSIDE RECORDS SUMMARY | 2025-07-30 18:49 | XMS_ITS | Encounter Summary ---
Author Organization [place] Address [address] [facility] [place] [address] Care Team Providers Care Senior Account Manager Name Role Phone Sarah Juares MD Primary Care Provider Purvi Jeong [facility] Unavailable [phone] Lucas Nuno MD Unavailable [phone] Meghan Cox [facility] Unavailable [phone] Encounter Details Date Type Department Care Team (Late st Contact Info) Description 03/20/2025 MyC Medical Advice [facility] [address] 4th [place] [address] Anastasia Molina, RN Social History Tobacco Use Types Packs/Day Years Used Date Smoking Tobacco: Former Smokeless Tobacco: Never Alcohol Use Standard Drinks/Week Comments Not Currently 0 (1 standard drink = 0.6 oz pur e alcohol) rare PHQ-2 Answer Date Recorded PHQ-2 Score 0 02/22/2025 [place] Depression Scale Answer Date Recorded [place] Depression Score 1 07/06/2021 Last EPDS Self [...] in an abandoned building, in an overnight residential, or couch-surfing.) Yes 03/21/2025 Are you worried [...] AM CDT 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 CANE CUTTER Gender Identity Female 06/03/2022 7:36 AM CDT Sexual Orientation Straight 06/03/2022 7: 36 AM CDT documented as of this encounter Plan of Treatment Not on file documented as of this encounter Visit Diagnoses Not on filedocumented in this encounter Care Teams Senior Account Manager Relationship Specialty [place] [address] [place] [address] PCP - General Family Medicine 03/13/25 Purvi Jeong RPH [address] [place] [address] Pharmacist Pharmacist Transmitter Chief 01/03/25 Lucas Nuno MD [address] [place] [address] 286405 Assigned Surgical Provider 02/07/25 Meghan Cox RPH [address] [place] [address] Pharmacist Pharmacist Transmitter Chief 03/20/25 documented as of this encounter
--- OUTSIDE RECORDS SUMMARY | 2025-07-30 18:49 | XMS_ITS | Encounter Summary ---
Author Organization [place] Address [address] [facility]. [address] Care Team Providers Care Contract Loader Name Role Phone Sarah Juares MD Primary Care Provider Purvi Jeong [facility] Unavailable [phone] Lucas Nuno MD Unavailable [phone] Meghan Cox [facility] Unavailable [phone] Encounter Details Date Type Department Care Team (Late st Contact Info) Description 03/21/2025 MyC Medical Advice [facility] Weight Management Clinic [address] 4[address] Floor [address] Anastasia Molina, RN Social History Tobacco Use Types Packs/Day Years Used Date Smoking Tobacco: Former Smokeless Tobacco: Never Alcohol Use Standard Drinks/Week Comments Not Currently 0 (1 standard drink = 0.6 oz pur e alcohol) rare PHQ-2 Answer Date Recorded PHQ-2 Score 0 02/22/2025 [place] Depression Scale Answer Date Recorded [place] Depression Score 1 07/06/2021 Last EPDS Self [...] in an abandoned building, in an overnight intermediate, or couch-surfing.) Yes 03/21/2025 Are you worried [...] AM CDT 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 MECHANICAL LEAD Gender Identity Female 06/03/2022 7:36 AM CDT Sexual Orientation Straight 06/03/2022 7: 36 AM CDT documented as of this encounter Plan of Treatment Not on file documented as of this encounter Visit Diagnoses Not on filedocumented in this encounter Care Teams Contract Loader Relationship Specialty [place] [address] [place] [address] PCP - General Family Medicine 03/13/25 Purvi Jeong RPH [address] [place] [address] Pharmacist Pharmacist Cheerleading Coach 01/03/25 Lucas Nuno MD [address] [place] [address] [phone] Assigned Surgical Provider 02/07/25 Meghan Cox RPH [address] [place] [address] Pharmacist Pharmacist Cheerleading Coach 03/20/25 documented as of this encounter
--- OUTSIDE RECORDS SUMMARY | 2025-07-30 18:49 | XMS_ITS | Clinical Summary ---
Author Organization [facility] Address [address] [facility] [place] [address] Care Team Providers Care Railroad Wheels And Axle Inspector Name Role Phone Provider, No Primary Primary [...] on file Legal Sex Female 8:59 PM LAUNDRY WASHER Gender Identity Not on file Sexual Orientation Not on file Last Filed Vital Signs Vital Sign Reading Time Taken Comments Blood Pressure 123/87 11/14/2023 9:14 AM LAUNDRY WASHER Pulse 90 11/14/2023 9:14 AM LAUNDRY WASHER Temperature 36.9 C (98.5 F) 11/14/2023 9:14 AM LAUNDRY WASHER Respiratory Rate - - Oxygen Saturation 98% 11/14/2023 9:14 AM LAUNDRY WASHER Inhaled Oxygen Concentration - - Weight 122.9 [...] - PCV) 2013 COVID-19 Vaccine ( season) 2025 12/26/2021, 06/26/2021, [...] 08/08/2010 08/12/2010 7:4 4 AM CDT Narrative [facility] - 08/06/2011 1:34 AM CDT RUN DATE: 08/06/11 [facility] LABORATORY PAGE 1 RUN TIME: [address] [place] [address] RUN USER: [employer] CYTOLOGY REPORT ----- ------- PATIENT: KALEB ALEMAN LOC: XSBC U #: [id number] : 89 AGE/SX: 15/F ROOM: RE08/08/[address]: Tom MASON,Angel Kane STATUS: REG REF BED: DIS: ----- ------- SPEC #: [id number] RECD: 08/12/10 STATUS: RONI SAMUELS #: [id number] MELANIE: 08/08/10- SUBM DR: Angel Santos MD ENTERED: 08/12/10 SP TYPE: THINPREP OTHR DR: ORDERED: [id number], THINPREP PAP PAP CLINICAL DATA LMP: 07-21-10 : NO HORMONE THERAPY: NO PREVIOUS SMEAR: NO PT. PHONE #: [phone] PT. ADDRESS: [address] [address], [place], [place] CYTOLOGY RESULTS SPECIMEN ADEQUACY: SATISFACTORY FOR EVALUATION. RESULTS: NEGATIVE FOR INTRAEPITHELIAL LESION OR MALIGNANCY. Signed Electronically Signed JAKE TERAN 08/12/10 ----- ------- END OF REPORT Procedure Note 08/08/2011 RUN DATE: 08/06/11 [facility] LABORATORYPAGE 1 RUN TIME: [address] [place] [address] RUN USER: [employer] CYTOLOGY REPORT ----- ------- PATIENT: KALEB ALEMAN LOC: XSBCU #: [id number] : 89 AGE/SX: 15/F ROOM:RE08/08/[address]: Angel Santos MD STATUS: REG REF BED:DIS: ----- ------- SPEC #: [id number] RECD: 08/12/10 STATUS: MATT #: [id number] MELANIE: 08/08/10- SUBM DR: Pop Santos MD. ENTERED: 08/12/10 SP TYPE: THINPREP OTHR DR: ORDERED: [id number], THINPREP PAP PAP CLINICAL DATA LMP: 07-21-10 : NO HORMONE THERAPY: NO PREVIOUS SMEAR: NO PT. PHONE #: [phone] PT. ADDRESS: [address], [place] CYTOLOGY RESULTS SPECIMEN ADEQUACY: SATISFACTORY FOR EVALUATION. RESULTS: NEGATIVE FOR INTRAEPITHELIAL LESION OR MALIGNANCY. Signed Electronically Signed JAKE TERAN 08/12/10 ----- ------- END OF REPORT us Angel Santos MD WET ROOM WORKER CYTOLOGY Final Resul t [address] [address] from Last 3 Months or Most Recently Relevant to Health Maintenance Insurance [facility] Care Teams Railroad Wheels And Axle Inspector Relationship Specialty Start Date End Date Provider, No Primary . YESICA PURI [address] PCP - General 01/31/16 Additional Source Comments PLEASE NOTE: Replies to this message will not be received.[facility]
--- OUTSIDE RECORDS SUMMARY | 2025-07-30 18:49 | XMS_ITS | Encounter Summary ---
Author Organization [place] Address [facility] [place] [address] Care Team Providers Care Ecommerce Merchandising Manager Name Role Phone [facility] Primary Care Provider Leatha Wagner APRN [facility] Unavailable [phone] Mariana Acosta-C Unavailable +[phone] Sarah Juares MD Primary Care Provider [phone] Lucas Nuno MD Unavailable +[phone] Mariana AcostaC Unavailable +[phone] Lucas Nuno MD Unavailable +- [phone] Mariana AcostaC Unavailable [phone] Purvi Jeong [facility] Unavailable [phone] Lucas Nuno MD Unavailable +- [phone] Meghan Cox [facility] Unavailable [phone] Encounter Details Date Type Department Care Team (Late st Contact Info) Description 06/10/2022 [facility] Medical Advice [facility] [address] 4th [place] [address] QuirinopenGiuliana Social History Tobacco Use Types Packs/Day Years Used Date Smoking Tobacco: Former Smokeless Tobacco: Never Alcohol Use Standard Drinks/Week Comments Not Currently 0 (1 standard drink = 0.6 oz pur e alcohol) rare Blachly Depression Scale Answer Date Recorded Blachly Depression Score 1 07/06/2021 Last EPDS Self Harm Result Not on file 07/06 Comments No Sex and Gender Information Value Date Recorded Sex Assigned at Female 06/03/2022 7:36 AM CDT 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 DATA MANAGEMENT ANALYST Gender Identity Female 06/03/2022 7:36 AM CDT [...] as of this encounter Care Teams Ecommerce Merchandising Manager Relationship Specialty Start Date End Date [facility], [facility] [address] [place] [address] PCP - General 01/02/14 03/23/23 [place] [address] [place] [address] PCP - General Family Medicine 03/13/25 Leatha Wagner APRN [employer] [address] [place] [address] Assigned Surgical Provider 11/02/21 09/04/22 Mariana Acosta PA-C [address] [place] [address] Assigned Surgical Provider 09/05/22 12/09/23 Lucas Nuno MD [address] [address] Assigned Surgical Provider 12/10/23 01/07/24 Mariana Acosta PA-C [address] [address] Assigned Surgical Provider 01/08/24 03/08/24 Lucas Nuno MD [address] [place] [address] Assigned Surgical Provider 03/09/24 12/09/24 Mariana Acosta PA-C [address] [address] Assigned Surgical Provider 12/10/24 02/06/25 Purvi Jeong [facility] [address] [place] [address] Pharmacist Pharmacist Right Of Way Manager 01/03/25 Lucas Nuno MD [address] [place] [address] Assigned Surgical Provider 02/07/25 Meghan Cox [facility] [address] [place] [address] Pharmacist Pharmacist Right Of Way Manager 03/20/25 documented as of this encounter
--- OUTSIDE RECORDS SUMMARY | 2025-07-30 18:49 | XMS_ITS | Encounter Summary ---
Author Organization [place] Address [address] [facility] [place] [address] Care Team Providers Care Promotor Group Ticket Sales Name Role Phone Sarah Juares MD Primary Care Provider [phone] Lucas Nuno MD Unavailable [phone] Mariana Acosta PA-C Unavailable + [phone] Purvi Jeong [facility] Unavailable [phone] Lucas Nuno MD Unavailable +[phone] Meghan Cox [facility] Unavailable [phone] Encounter Details Date Type Department Care Team (Late st Contact Info) Description 04/13/2024 [facility] [address] [place] [phone] [facility] Social History Tobacco Use Types Packs/Day Years Used Date Smoking Tobacco: Former Smokeless Tobacco: Never Alcohol Use Standard Drinks/Week Comments Not Currently 0 (1 standard drink = 0.6 oz pur e alcohol) rare PHQ-2 Answer Date Recorded PHQ-2 Score 0 05/12/2023 Mary[place] Depression Scale Answer Date Recorded Marydel Depression Score 1 07/06/2021 Last EPDS Self Harm Result Not on file 07/06 Adolescent Education Answer Date Record ed Getting School Help Needed Not on file 07/10 Comments No Sex and Gender Information Value Date Recorded Sex Assigned at Female 06/03/2022 7:36 AM CDT 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 PLC CONTROLS ENGINEER Gender Identity Female 06/03/2022 7:36 AM CDT Sexual Orientation Straight 06/03/2022 7: 36 AM CDT documented as of this encounter Plan of Treatment Not on file documented as of this encounter Visit Diagnoses Not on filedocumented in this encounter Care Teams Promotor Group Ticket Sales Relationship Specialty [place] [address] [place] [address] PCP - General Family Medicine 03/13/25 Lucas Nuno MD [address] [address] Assigned Surgical Provider 03/09/24 12/09/24 Mariana Acosta PA-C [address] [address] Assigned Surgical Provider 12/10/24 02/06/25 Purvi Jeong [facility] [address] [place] [address] [phone] Pharmacist Pharmacist Candle Maker 01/03/25 Lucas Nuno MD [address] [address] Assigned Surgical Provider 02/07/25 Meghan Cox [facility] [address] [place] [address] Pharmacist Pharmacist Candle Maker 03/20/25 documented as of this encounter
--- OUTSIDE RECORDS SUMMARY | 2025-07-30 18:49 | XMS_ITS | Encounter Summary ---
Author Organization [place] Address [facility] [place] [address] Care Team Providers Care Balance Bridge Assembler Name Role Phone [facility] Primary Care Provider Mariana Acosta PA-C Unavailable + [phone] Sarah Juares MD Primary Care Provider [phone] Lucas Nuno MD Unavailable [phone] Mariana Acosta PA-C Unavailable +[phone] Lucas Nuno MD Unavailable +[phone] Mariana Acosta PA-C Unavailable +[phone] Purvi Jeong [facility] Unavailable [phone] Lucas Nuno MD Unavailable [phone] Meghan Cox [facility] Unavailable [phone] Encounter Details Date Type Department Care Team (Late st Contact Info) Description 02/09/2023 [facility] [address] 4th [place] [address] Paulina Denny RN Social History Tobacco Use Types Packs/Day Years Used Date Smoking Tobacco: Former Smokeless Tobacco: Never Alcohol Use Standard Drinks/Week Comments Not Currently 0 (1 standard drink = 0.6 oz pur e alcohol) rare Cadwell Depression Scale Answer Date Recorded Cadwell Depression Score 1 07/06/2021 Last EPDS Self Harm Result Not on file 07/06 Comments No Sex and Gender Information Value Date Recorded Sex Assigned at Female 06/03/2022 7:36 AM CDT 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 BANQUET HOUSEPERSON Gender Identity Female 06/03/2022 7:36 AM CDT [...] documented as of this encounter Care Teams Balance Bridge Assembler Relationship Specialty Start Date End Date [facility], [facility] [address] [place] [address] PCP - General 01/02/14 03/23/23 [place] [address] [place] [address] PCP - General Family Medicine 03/13/25 Mariana Acosta PA-C [address] [address] Assigned Surgical Provider 09/05/22 12/09/23 Lucas Nuno MD 420 [facility] [address] [address] Assigned Surgical Provider 12/10/23 01/07/24 Mariana Acosta PA-C [address] [phone] Assigned Surgical Provider 01/08/24 03/08/24 Lucas Nuno MD [address] [place] [address] Assigned Surgical Provider 03/09/24 12/09/24 Mariana Acosta PA-C [address] [place] [address] Assigned Surgical Provider 12/10/24 02/06/25 Purvi Jeong [facility] [address] [place] [address] 707285 Pharmacist Pharmacist Anesthesiology Physician Assistant 01/03/25 Lucas Nuno MD [address] [place] [address] Assigned Surgical Provider 02/07/25 Meghan Cox [facility] [address] [place] [address] Pharmacist Pharmacist Anesthesiology Physician Assistant 03/20/25 documented as of this encounter
--- OUTSIDE RECORDS SUMMARY | 2025-07-30 18:49 | XMS_ITS | Encounter Summary ---
Author Organization [place] Address [address] [facility] [place] [address] Care Team Providers Care Healthcare Administrative Assistant Name Role Phone Sarah Juares MD Primary Care Provider [phone] Lucas Nuno MD Unavailable [phone] Mariana Acosta PA-C Unavailable + [phone] Purvi Jeong [facility] Unavailable [phone] Lucas Nuno MD Unavailable +[phone] Meghan Cox [facility] Unavailable [phone] Encounter Details Date Type Department Care Team (Late st Contact Info) Description 03/15/2024 [facility] Medical Advice [facility] [address] 4th [place] [address] Giuliana Masterson Social History Tobacco Use Types Packs/Day Years Used Date Smoking Tobacco: Former Smokeless Tobacco: Never Alcohol Use Standard Drinks/Week Comments Not Currently 0 (1 standard drink = 0.6 oz pur e alcohol) rare PHQ-2 Answer Date Recorded PHQ-2 Score 0 05/12/2023 [place] Depression Scale Answer Date Recorded [place] Depression Score 1 07/06/2021 Last EPDS Self Harm Result Not on file 07/06 Adolescent Education Answer Date Record ed Getting School Help Needed Not on file 07/10 Comments No Sex and Gender Information Value Date Recorded Sex Assigned at Female 06/03/2022 7:36 AM CDT 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 SHEARING SHED HAND Gender Identity Female 06/03/2022 7:36 AM CDT Sexual Orientation Straight 06/03/2022 7: 36 AM CDT documented as of this encounter Plan of Treatment Not on file documented as of this encounter Visit Diagnoses Not on filedocumented in this encounter Care Teams Healthcare Administrative Assistant Relationship Specialty [place] [address] [place] [address] PCP - General Family Medicine 03/13/25 Lucas Nuno MD [address] [place] [address] Assigned Surgical Provider 03/09/24 12/09/24 Mariana Acosta PA-C [address] [address] Assigned Surgical Provider 12/10/24 02/06/25 Purvi Jeong [facility] [address] [place] [address] Pharmacist Pharmacist Nylon Hot Wire Cutter 01/03/25 Lucas Nuno MD [address] [place] [address] Assigned Surgical Provider 02/07/25 Meghan Cox [facility] [address] [place] [address] Pharmacist Pharmacist Nylon Hot Wire Cutter 03/20/25 documented as of this encounter
--- OUTSIDE RECORDS SUMMARY | 2025-07-30 18:49 | XMS_ITS | Encounter Summary ---
Author Organization [place] Address [address] [facility] [place] [address] Care Team Providers Care Guard Manager Name Role Phone Sarah Juares MD Primary Care Provider [phone] Mariana AcostaC Unavailable + [phone] Purvi Jeong [facility] Unavailable [phone] Lucas Nuno MD Unavailable [phone] Meghan Cox [facility] Unavailable [phone] Encounter Details Date Type Department Care Team (Late st Contact Info) Description 01/30/2025 MyC Medical Advice [facility] [address] [facility] [address] [place] [address] Keena Valente Social History Tobacco Use Types Packs/Day Years Used Date Smoking Tobacco: Former Smokeless Tobacco: Never Alcohol Use Standard Drinks/Week Comments Not Currently 0 (1 standard drink = 0.6 oz pur e alcohol) rare PHQ-2 Answer Date Recorded PHQ-2 Score 0 11/15/2024 Prentice Depression Scale Answer Date Recorded Prentice Depression Score 1 07/06/2021 Last EPDS Self [...] AM CDT 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 Gender Identity Female 06/03/2022 7:36 AM CDT Sexual Orientation Straight 06/03/2022 7: 36 AM CDT documented as of this encounter Plan of Treatment Not on file documented as of this encounter Visit Diagnoses Not on filedocumented in this encounter Care Teams Guard Manager Relationship Specialty [place] [address] [place] [address] PCP - General Family Medicine 03/13/25 Mariana Acosta PA-C [address] [place] [address] 283175 Assigned Surgical Provider 12/10/24 02/06/25 Purvi Jeong [facility] [address] [place] [address] Pharmacist Pharmacist Security Systems Installer 01/03/25 Lucas Nuno MD [address] [place] [address] [phone] Assigned Surgical Provider 02/07/25 [facility] [address] [place] [address] Pharmacist Pharmacist Security Systems Installer 03/20/25 documented as of this encounter
--- OUTSIDE RECORDS SUMMARY | 2025-07-30 18:49 | XMS_ITS | Encounter Summary ---
Author Organization [place] Address [address] [facility] [place] [address] Care Team Providers Care Ice Scraper Name Role Phone Sarah Juares MD Primary Care Provider [phone] Lucas Nuno MD Unavailable [phone] Mariana Acosta PA-C Unavailable + [phone] Purvi Jeong [facility] Unavailable [phone] Lucas Nuno MD Unavailable +[phone] Meghan Cox [facility] Unavailable [phone] Encounter Details Date Type Department Care Team (Late st Contact Info) Description 04/13/[address] [facility] [address] 4th [place] [address] Giuliana Masterson Social History Tobacco Use Types Packs/Day Years Used Date Smoking Tobacco: Former Smokeless Tobacco: Never Alcohol Use Standard Drinks/Week Comments Not Currently 0 (1 standard drink = 0.6 oz pur e alcohol) rare PHQ-2 Answer Date Recorded PHQ-2 Score 0 05/12/2023 [place] Depression Scale Answer Date Recorded [place] Depression Score 1 07/06/2021 Last EPDS Self Harm Result Not on file 07/06 Adolescent Education Answer Date Record ed Getting School Help Needed Not on file 07/10 Comments No Sex and Gender Information Value Date Recorded Sex Assigned at Female 06/03/2022 7:36 AM CDT 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 Gender Identity Female 06/03/2022 7:36 AM CDT Sexual Orientation Straight 06/03/2022 7: 36 AM CDT documented as of this encounter Plan of Treatment Not on file documented as of this encounter Visit Diagnoses Not on filedocumented in this encounter Care Teams Ice Scraper Relationship Specialty [place] [address] [place] [address] PCP - General Family Medicine 03/13/25 Lucas Nuno MD [address] [place] [address] Assigned Surgical Provider 03/09/24 12/09/24 Mariana Acosta PA-C [address] [address] Assigned Surgical Provider 12/10/24 02/06/25 Purvi Jeong [facility] [address] [place] [address] Pharmacist Pharmacist Bus Trolley And Taxi Instructor 01/03/25 Lucas Nuno MD [address] [place] [address] Assigned Surgical Provider 02/07/25 Meghan Cox [facility] [address] [place] [address] Pharmacist Pharmacist Bus Trolley And Taxi Instructor 03/20/25 documented as of this encounter
--- OUTSIDE RECORDS SUMMARY | 2025-07-30 18:49 | XMS_ITS | Encounter Summary ---
Author Organization [place] Address [address] [facility] [place] [address] Care Team Providers Care Spray Pilot Name Role Phone Sarah Juares MD Primary Care Provider [phone] Lucas Nuno MD Unavailable [phone] Mariana Acosta PA-C Unavailable + [phone] Purvi Jeong [facility] Unavailable [phone] Lucas Nuno MD Unavailable [phone] Meghan Cox [facility] Unavailable [phone] Encounter Details Date Type Department Care Team (Late st Contact Info) Description 11/15/2024 MyC Medical Advice [facility] [place] [address] [facility] [address] [place] [address] Mariana Acosta PA-C [address] [place] [address] [facility] [address] [place] [address] Social History Tobacco Use Types Packs/Day Years Used Date Smoking Tobacco: Former Smokeless Tobacco: Never Alcohol Use Standard Drinks/Week Comments Not Currently 0 (1 standard drink = 0.6 oz pur e alcohol) rare PHQ-2 Answer Date Recorded PHQ-2 Score 0 11/15/2024 [place] Depression Scale Answer Date Recorded [place] Depression Score 1 07/06/2021 Last EPDS Self Harm Result Not on file 07/06 Adolescent Education Answer Date Record ed Getting School Help Needed Not on file 07/10 Comments No Sex and Gender Information Value Date Recorded Sex Assigned at Female 06/03/2022 7:36 AM CDT 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 Gender Identity Female 06/03/2022 7:36 AM CDT Sexual Orientation Straight 06/03/2022 7: 36 AM CDT documented as of this encounter Plan of Treatment Not on file documented as of this encounter Visit Diagnoses Not on filedocumented in this encounter Care Teams Spray Pilot Relationship Specialty [place] [address] [place] [address] PCP - General Family Medicine 03/13/25 Lucas Nuno MD [address] [place] [address] [phone] Assigned Surgical Provider 03/09/24 12/09/24 Mariana Acosta PA-C [address] [place] [address] [phone] Assigned Surgical Provider 12/10/24 02/06/25 Purvi Jeong [facility] [address] [place] [address] [phone] Pharmacist Pharmacist Data Entry Supervisor 01/03/25 Lucas Nuno MD [address] [place] [address] [phone] Assigned Surgical Provider 02/07/25 Meghan Cox [facility] [address] [place] [address] [phone] Pharmacist Pharmacist Data Entry Supervisor 03/20/25 documented as of this encounter
--- OUTSIDE RECORDS SUMMARY | 2025-07-30 18:49 | XMS_ITS | Encounter Summary ---
Author Organization [place] Address [address] [facility] [address] Care Team Providers Care Supervisor Plasma Name Role Phone Mariana Acosta-Noreen Unavailable + [phone] Sarah Juares MD Primary Care Provider [phone] Lucas Nuno MD Unavailable [phone] Mariana Acosta-C Unavailable + [phone] Lucas Nuno MD Unavailable [phone] Mariana Acosta-C Unavailable + [phone] Purvi Jeong [facility] Unavailable Lucas Nuno MD Unavailable [phone] Meghan Cox [facility] Unavailable [phone] Encounter Details Date Type Department Care Team (Late st Contact Info) Description 05/12/2023 [facility] Weight [facility] [address] [place] [address] Xochitl Cooley Social History Tobacco Use Types Packs/Day Years Used Date Smoking Tobacco: Former Smokeless Tobacco: Never Alcohol Use Standard Drinks/Week Comments Not Currently 0 (1 standard drink = 0.6 oz pur e alcohol) rare PHQ-2 Answer Date Recorded PHQ-2 Score 0 05/12/2023 [place] Depression Scale Answer Date Recorded [place] Depression Score 1 07/06/2021 Last EPDS Self Harm Result Not on file 07/06 Comments No Sex and Gender Information Value Date Recorded Sex Assigned at Female 06/03/2022 7:36 AM CDT 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 Gender Identity Female 06/03/2022 7:36 AM [...] filedocumented in this encounter Care Teams Supervisor Plasma Relationship Specialty [place] [address] [facility] [place] [address] PCP - General Family Medicine 03/13/25 Mariana Acosta PA-C [address] [place] [address] [address] Assigned Surgical Provider 09/05/22 12/09/23 Lucas Nuno MD [address] [place] [address] [address] Assigned Surgical Provider 12/10/23 01/07/24 Mariana Acosta PA-C [address] [place] [address] [address] Assigned Surgical Provider 01/08/24 03/08/24 Lucas Nuno MD [address] [address] Assigned Surgical Provider 03/09/24 12/09/24 Mariana Acosta PA-C [address] [address] Assigned Surgical Provider 12/10/24 02/06/25 Purvi Jeong [facility] [address] [place] [address] Pharmacist Pharmacist Group Tester 01/03/25 Lucas Nuno MD [address] [place] [address] Assigned Surgical Provider 02/07/25 Meghan Cox [place] [address] [place] [address] Pharmacist Pharmacist Group Tester 03/20/25 documented as of this encounter
--- OUTSIDE RECORDS SUMMARY | 2025-07-30 18:49 | XMS_ITS | Encounter Summary ---
Author Organization [place] Address [address] [place] [address] Care Team Providers Care Outbound Sales Agent Name Role Phone Sarah Juares MD Primary Care Provider [phone] Mariana Acosta-C Unavailable + [phone] Purvi Jeong [facility] Unavailable [phone] Lucas Nuno MD Unavailable [phone] Meghan Cox [facility] Unavailable [phone] Encounter Details Date Type Department Care Team (Late st Contact Info) Description 02/02/2025 MyC Medical Advice [facility] [address] 4th [place] [address] Anastasia Molina, RN Social History Tobacco Use Types Packs/Day Years Used Date Smoking Tobacco: Former Smokeless Tobacco: Never Alcohol Use Standard Drinks/Week Comments Not Currently 0 (1 standard drink = 0.6 oz pur e alcohol) rare PHQ-2 Answer Date Recorded PHQ-2 Score 0 11/15/2024 [place] Depression Scale Answer Date Recorded [place] Depression Score 1 07/06/2021 Last EPDS Self [...] CDT 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 Gender Identity Female 06/03/2022 7:36 AM CDT Sexual Orientation Straight 06/03/2022 7: 36 AM CDT documented as of this encounter Plan of Treatment Not on file documented as of this encounter Visit Diagnoses Not on filedocumented in this encounter Care Teams Outbound Sales Agent Relationship Specialty [place] [address] [place] [address] PCP - General Family Medicine 03/13/25 Mariana Acosta PA-C [address] [place] [address] [phone] Assigned Surgical Provider 12/10/24 02/06/25 Purvi Jeong [facility] [address] [place] [address] [phone] Pharmacist Pharmacist Broom Man 01/03/25 Lucas Nuno MD [address] [place] [address] [phone] Assigned Surgical Provider 02/07/25 Meghan Cox [facility] [address] [place] [address] [phone] Pharmacist Pharmacist Broom Man 03/20/25 documented as of this encounter
--- OUTSIDE RECORDS SUMMARY | 2025-07-30 18:49 | XMS_ITS | Encounter Summary ---
Author Organization [place] Address [address] [facility] [place] [address] Care Team Providers Care Speech And Drama Teacher Name Role Phone Sarah Juares MD Primary Care Provider [phone] Mariana Acosta-C Unavailable + [phone] Purvi Jeong [facility] Unavailable [phone] Lucas Nuno MD Unavailable [phone] Meghan Cox [facility] Unavailable [phone] Encounter Details Date Type Department Care Team (Late st Contact Info) Description 01/25/2025 MyC Medical Advice [facility] Weight Management Clinic [address] 4th [place] [address] Anastasia Molina, RN Social History Tobacco Use Types Packs/Day Years Used Date Smoking Tobacco: Former Smokeless Tobacco: Never Alcohol Use Standard Drinks/Week Comments Not Currently 0 (1 standard drink = 0.6 oz pur e alcohol) rare PHQ-2 Answer Date Recorded PHQ-2 Score 0 11/15/2024 [place] Depression Scale Answer Date Recorded [place] Depression Score 1 07/06/2021 Last EPDS Self [...] AM CDT 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 Gender Identity Female 06/03/2022 7:36 AM CDT Sexual Orientation Straight 06/03/2022 7: 36 AM CDT documented as of this encounter Plan of Treatment Not on file documented as of this encounter Visit Diagnoses Not on filedocumented in this encounter Care Teams Speech And Drama Teacher Relationship Specialty [place] [address] [place] [address] PCP - General Family Medicine 03/13/25 Mariana Acosta PA-C [address] [place] [address] [phone] Assigned Surgical Provider 12/10/24 02/06/25 Purvi Jeong [facility] [address] [place] [address] [phone] Pharmacist Pharmacist Datastage Architect 01/03/25 Lucas Nuno MD [address] [place] [address] [phone] Assigned Surgical Provider 02/07/25 Meghan Cox [facility] [address] [place] [address] [phone] Pharmacist Pharmacist Datastage Architect 03/20/25 documented as of this encounter
--- OUTSIDE RECORDS SUMMARY | 2025-07-30 18:49 | XMS_ITS | Encounter Summary ---
Author Organization [employer] [facility] Address [address] [place] [address] Care Team Providers Care Medical Esthetician Name Role Phone Unknown, Provider Primary Care Provider Unavaila ble Provider, No Primary Primary Care Provider Unava ilable Encounter Details Date Type Department Care Team (Late st Contact Info) Description 09/20/2006 Historical Notes [facility] Family Medicine [address] 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 : 1995 Single/ Language: Undefined/ Ethnicity: Undefined [...] fill out. Mom will fill out any [place] form on attention deficit disorder. I also [...] filedocumented in this encounter Care Teams Medical Esthetician Relationship Specialty Start Date End Date Unknown, Provider . YESICA PURI [address] PCP - General 10/07/15 01/30/16 Provider, No Primary . YESICA PURI [address] PCP - General 01/31/16 documented as of this encounter Additional Source Comments PLEASE NOTE: Replies to this message will not be received.[facility] and [facility]
--- OUTSIDE RECORDS SUMMARY | 2025-07-30 18:49 | XMS_ITS | Encounter Summary ---
Author Organization [place] Address [address] [place] [address] Care Team Providers Care Atlassian Administrator Name Role Phone Mariana Acosta-Noreen Unavailable + [phone] Sarah Juares MD Primary Care Provider [phone] Lucas Nuno MD Unavailable [phone] Mariana Acosta-C Unavailable + [phone] Lucas Nuno MD Unavailable [phone] Mariana Acosta-C Unavailable + [phone] Purvi Jeong [facility] Unavailable [phone] Lucas Nuno MD Unavailable [phone] Meghan Cox [facility] Unavailable [phone] Encounter Details Date Type Department Care Team (Late st Contact Info) Description 10/07/2023 [facility] [address] 4[address] [place] [address] Giuliana Masterson Social History Tobacco Use Types Packs/Day Years Used Date Smoking Tobacco: Former Smokeless Tobacco: Never Alcohol Use Standard Drinks/Week Comments Not Currently 0 (1 standard drink = 0.6 oz pur e alcohol) rare PHQ-2 Answer Date Recorded PHQ-2 Score 0 05/12/2023 [place] Depression Scale Answer Date Recorded [place] Depression Score 1 07/06/2021 Last EPDS Self Harm Result Not on file 07/06 Adolescent Education Answer Date Record ed Getting School Help Needed Not on file 07/10 Comments No Sex and Gender Information Value Date Recorded Sex Assigned at Female 06/03/2022 7:36 AM CDT 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 Gender Identity Female 06/03/2022 7:36 AM CDT Sexual Orientation Straight 06/03/2022 7: 36 AM CDT documented as of this encounter Plan of Treatment Not on file documented as of this encounter Visit Diagnoses Not on filedocumented in this encounter Care Teams Atlassian Administrator Relationship Specialty [place] [address] [place] [address] PCP - General Family Medicine 03/13/25 Mariana Acosta PA-C [address] [address] Assigned Surgical Provider 09/05/22 12/09/23 Lucas Nuno MD [address] [address] Assigned Surgical Provider 12/10/23 01/07/24 Mariana Acosta PA-C [address] [address] Assigned Surgical Provider 01/08/24 03/08/24 Lucas Nuno MD [address] [address] Assigned Surgical Provider 03/09/24 12/09/24 Mariana Acosta PA-C [address] [place] [address] Assigned Surgical Provider 12/10/24 02/06/25 Purvi Jeong RPH [address] [place], [place] [phone] Pharmacist Pharmacist Nursing Clinical Director 01/03/25 Lucas Nuno MD [address] [place] [address] [phone] Assigned Surgical Provider 02/07/25 Meghan Cox RPH [address] [place], [place] 256115 Pharmacist Pharmacist Nursing Clinical Director 03/20/25 documented as of this encounter
--- OUTSIDE RECORDS SUMMARY | 2025-07-30 18:49 | XMS_ITS | Encounter Summary ---
Author Organization [place] Address [address] [facility] [address] Care Team Providers Care Pile Driver Operator Barge Mounted Name Role Phone Sarah Juares MD Primary Care Provider [phone] Lucas Nuno MD Unavailable [phone] Mariana Acosta PA-C Unavailable + [phone] [facility] Unavailable [phone] Lucas Nuno MD Unavailable +[phone] [facility] Unavailable [phone] Encounter Details Date Type Department Care Team (Late st Contact Info) Description 11/16/[address] [facility] Management [facility] [address] 4th [place] [address] Anastasia Molina, RN Social History Tobacco Use Types Packs/Day Years Used Date Smoking Tobacco: Former Smokeless Tobacco: Never Alcohol Use Standard Drinks/Week Comments Not Currently 0 (1 standard drink = 0.6 oz pur e alcohol) rare PHQ-2 Answer Date Recorded PHQ-2 Score 0 11/15/2024 [place] Depression Scale Answer Date Recorded [place] Depression Score 1 07/06/2021 Last EPDS Self Harm Result Not on file 07/06 Adolescent Education Answer Date Record ed Getting School Help Needed Not on file 07/10 Comments No Sex and Gender Information Value Date Recorded Sex Assigned at Female 06/03/2022 7:36 AM CDT 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 Gender Identity Female 06/03/2022 7:36 AM CDT Sexual Orientation Straight 06/03/2022 7: 36 AM CDT documented as of this encounter Plan of Treatment Not on file documented as of this encounter Visit Diagnoses Not on filedocumented in this encounter Care Teams Pile Driver Operator Barge Mounted Relationship Specialty [place] [address] [place] [address] PCP - General Family Medicine 03/13/25 Lucas Nuno MD [address] [address] Assigned Surgical Provider 03/09/24 12/09/24 Mariana Acosta PA-C [address] [address] Assigned Surgical Provider 12/10/24 02/06/[address] [facility] [address] [place] [address] Pharmacist Pharmacist Unit Coordinator 01/03/25 Lucas Nuno MD [address] [address] Assigned Surgical Provider 02/07/[address] [facility] [address] [place] [address] Pharmacist Pharmacist Unit Coordinator 03/20/25 documented as of this encounter
--- OUTSIDE RECORDS SUMMARY | 2025-07-30 18:49 | XMS_ITS | Encounter Summary ---
Author Organization [place] Address [address] [facility] [place] [address] Care Team Providers Care Disassembler Product Name Role Phone Sarah Juares MD Primary Care Provider Purvi Jeong [facility] Unavailable [phone] Lucas Nuno MD Unavailable [phone] Meghan Cox [facility] Unavailable Encounter Details Date Type Department Care Team (Late st Contact Info) Description 03/23/2025 MyC Medical Advice [facility] [place] [address] [facility] [address] 4th [place] [address] Lucas Nuno MD [address] [place] [address] [facility] [address] [place] [address] Social History Tobacco Use Types Packs/Day Years Used Date Smoking Tobacco: Former Smokeless Tobacco: Never Alcohol Use Standard Drinks/Week Comments Not Currently 0 (1 standard drink = 0.6 oz pur e alcohol) rare PHQ-2 Answer Date Recorded PHQ-2 Score 0 02/22/2025 [place] Depression Scale Answer Date Recorded [place] Depression Score 1 07/06/2021 Last EPDS Self [...] in an abandoned building, in an overnight chcf, or couch-surfing.) Yes 03/21/2025 Are you worried [...] AM CDT 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 Gender Identity Female 06/03/2022 7:36 AM CDT Sexual Orientation Straight 06/03/2022 7: 36 AM CDT documented as of this encounter Plan of Treatment Not on file documented as of this encounter Visit Diagnoses Not on filedocumented in this encounter Care Teams Disassembler Product Relationship Specialty [place] [address] [place] [address] PCP - General Family Medicine 03/13/25 Purvi Jeong [place] [address] [place] [address] [phone] Pharmacist Pharmacist Reed Press Feeder 01/03/25 Lucas Nuno MD [address] [place] [address] [phone] Assigned Surgical Provider 02/07/25 Meghan Cox RPH [address] [place] [address] [phone] Pharmacist Pharmacist Reed Press Feeder 03/20/25 documented as of this encounter
--- OUTSIDE RECORDS SUMMARY | 2025-07-30 18:50 | XMS_ITS | Encounter Summary ---
Author Organization [place] Address [address] [facility] [place] [address] Care Team Providers Care Cell Biology Scientist Name Role Phone Sarah Juares MD Primary Care Provider Purvi Jeong [facility] Unavailable [phone] Lucas Nuno MD Unavailable [phone] Meghan Cox [facility] Unavailable [phone] Encounter Details Date Type Department Care Team (Late st Contact Info) Description 05/06/2025 MyC Medical Advice [facility] Weight Management [facility] [place] [address] 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 Gender Identity Female 06/03/2022 7:36 AM CDT Sexual Orientation Straight 06/03/2022 7: 36 AM CDT documented as of this encounter Plan of Treatment Not on file documented as of this encounter Visit Diagnoses Not on filedocumented in this encounter Care Teams Cell Biology Scientist Relationship Specialty [place] [address] [place] [address] PCP - General Family Medicine 03/13/25 Purvi Jeong [facility] [address] [place] [address] [phone] Pharmacist Pharmacist Muck Boss 01/03/25 Lucas Nuno MD [address] [place] [address] [phone] Assigned Surgical Provider 02/07/25 Meghan Cox [place] [address] [place] [address] [phone] Pharmacist Pharmacist Muck Boss 03/20/25 documented as of this encounter
--- OUTSIDE RECORDS SUMMARY | 2025-07-30 18:50 | XMS_ITS | Encounter Summary ---
Author Organization [place] Address [facility] [place] [address] Care Team Providers Care Manager Benefit Name Role Phone [facility] Primary Care Provider Letaha Wagner APRN [facility] Unavailable [phone] Mariana Acosta-C Unavailable +[phone] Sarah Juares MD Primary Care Provider [phone] Lucas Nuno MD Unavailable +[phone] Mariana AcostaC Unavailable [phone] Lucas Nuno MD Unavailable +[phone] Mariana AcostaC Unavailable [phone] Purvi Jeong [facility] Unavailable [phone] Lucas Nuno MD Unavailable +- Meghan Cox [facility] Unavailable [phone] Encounter Details Date Type Department Care Team (Late st Contact Info) Description 08/24/2022 [facility] [place] [facility] [address] 4th [place] [address] Rita Gillespie, EMT Social History Tobacco Use Types Packs/Day Years Used Date Smoking Tobacco: Former Smokeless Tobacco: Never Alcohol Use Standard Drinks/Week Comments Not Currently 0 (1 standard drink = 0.6 oz pur e alcohol) rare [place] Depression Scale Answer Date Recorded [place] Depression Score 1 07/06/2021 Last EPDS Self Harm Result Not on file 07/06 Comments No Sex and Gender Information Value Date Recorded Sex Assigned at Female 06/03/2022 7:36 AM CDT 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 Gender Identity Female 06/03/2022 7:36 AM [...] documented as of this encounter Care Teams Manager Benefit Relationship Specialty Start Date End Date [facility] [address] [facility] [place] [address] PCP - General 01/02/14 03/23/23 [place] [address] [facility] [place] [place] [address] PCP - General Family Medicine 03/13/25 Leatha Wagner APRN ROBOT OPERATOR [address] [place] [address] Assigned Surgical Provider 11/02/21 09/04/22 Mariana Acosta PA-C [address] [place] [address] Assigned Surgical Provider 09/05/22 12/09/23 Lucas Nuno MD [address] [address] Assigned Surgical Provider 12/10/23 01/07/24 Mariana Acosta PA-C [address] [address] Assigned Surgical Provider 01/08/24 03/08/24 Lucas Nuno MD [address] [address] Assigned Surgical Provider 03/09/24 12/09/24 Mariana Acosta PA-C [address] [address] Assigned Surgical Provider 12/10/24 02/06/25 Purvi Jeong [facility] [address] [place] [address] [phone] Pharmacist Pharmacist Document Control Assistant 01/03/25 Lucas Nuno MD [address] [place] [address] Assigned Surgical Provider 02/07/25 Meghan Cox [facility] [address] [place] [address] Pharmacist Pharmacist Document Control Assistant 03/20/25 documented as of this encounter
--- OUTSIDE RECORDS SUMMARY | 2025-07-30 18:50 | XMS_ITS | Encounter Summary ---
Author Organization [place] Address [facility] [place] [address] Care Team Providers Care Landscape Management Technician Name Role Phone [facility] Primary Care Provider Leatha Wagner APRN [facility] Unavailable [phone] Mariana Acosta-C Unavailable +[phone] Sarah Juares MD Primary Care Provider [phone] Lucas Nuno MD Unavailable +-[phone] Mariana AcostaC Unavailable [phone] Lucas Nuno MD Unavailable +[phone] Mariana AcostaC Unavailable [phone] Purvi Jeong [facility] Unavailable [phone] Lucas Nuno MD Unavailable +-[phone] Meghan Cox [facility] Unavailable [phone] Encounter Details Date Type Department Care Team (Late st Contact Info) Description 08/27/2022 [facility] Weight [facility] [address] YESICA Roberto [address] Xochitl Cooley Social History Tobacco Use Types Packs/Day Years Used Date Smoking Tobacco: Former Smokeless Tobacco: Never Alcohol Use Standard Drinks/Week Comments Not Currently 0 (1 standard drink = 0.6 oz pur e alcohol) rare [place] Depression Scale Answer Date Recorded [place] Depression Score 1 07/06/2021 Last EPDS Self Harm Result Not on file 07/06 Comments No Sex and Gender Information Value Date Recorded Sex Assigned at Female 06/03/2022 7:36 AM CDT 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 [place] [address] [facility] [place] [address] PCP - General 01/02/14 03/23/23 [place] [address] [facility] [place] [address] PCP - General Family Medicine 03/13/25 Leatha Wagner APRN SALESPERSON AUTOMOBILES [address] [place] [address] Assigned Surgical Provider 11/02/21 09/04/22 Mariana Acosta PA-C [address] [place] [address] Assigned Surgical Provider 09/05/22 12/09/23 Lucas Nuno MD [address] [address] Assigned Surgical Provider 12/10/23 01/07/24 Mariana Acosta PA-C [address] [address] Assigned Surgical Provider 01/08/24 03/08/24 Lucas Nuno MD [address] [address] Assigned Surgical Provider 03/09/24 12/09/24 Mariana Acosta PA-C [address] [address] Assigned Surgical Provider 12/10/24 02/06/25 Purvi Jeong [facility] [address] [place] [address] [phone] Pharmacist Pharmacist Mop Worker 01/03/25 Lucas Nuno MD [address] [address] Assigned Surgical Provider 02/07/25 Meghan Cox [facility] 9 [place] [address] Pharmacist Pharmacist Mop Worker 03/20/25 documented as of this encounter
--- OUTSIDE RECORDS SUMMARY | 2025-07-30 18:50 | XMS_ITS | Encounter Summary ---
Author Organization [place] Address [facility] [place] [address] Care Team Providers Care Vegetable Farm Manager Name Role Phone [facility], [facility] Primary Care Provider Leatha Wagner APRN [facility] Unavailable [phone] Mariana Acosta-C Unavailable [phone] Sarah Juares MD Primary Care Provider [phone] Lucas Nuno MD Unavailable +-50 Mariana AcostaC Unavailable [phone] Lucas Nuno MD Unavailable +- 89 Mariana AcostaC Unavailable [phone] Purvi Jeong [facility] Unavailable Lucas Nuno MD Unavailable +- Meghan Cox [facility] Unavailable [phone] Encounter Details Date Type Department Care Team (Late st Contact Info) Description 09/02/2022 [facility] Medical Advice 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 Gender Identity Female 06/03/2022 7:36 AM [...] documented as of this encounter Care Teams Vegetable Farm Manager Relationship Specialty Start Date End Date [facility], [facility] [address] [facility] [place] [address] PCP - General 01/02/14 03/23/23 [place] [address] [address] [place] [address] PCP - General Family Medicine 03/13/25 Leatha Wagner APRN ADULT EDUCATION PROFESSIONAL [address] [place] [id number] Assigned Surgical Provider 11/02/21 09/04/22 Mariana Acosta PA-C [address] [place] [id number] Assigned Surgical Provider 09/05/22 12/09/23 Lucas Nuno MD [address] [address] Assigned Surgical Provider 12/10/23 01/07/24 Mariana Acosta PA-C [address] [address] Assigned Surgical Provider 01/08/24 03/08/24 Lucas Nuno MD [address] [address] Assigned Surgical Provider 03/09/24 12/09/24 Mariana Acosta PA-C [address] [address] Assigned Surgical Provider 12/10/24 02/06/25 Purvi Jeong [facility] [address] [place] [address] Pharmacist Pharmacist Right Of Way Manager 01/03/25 Lucas Nuno MD [address] [address] Assigned Surgical Provider 02/07/25 Meghan Cox [facility] [address] [place] [phone] Pharmacist Pharmacist Right Of Way Manager 03/20/25 documented as of this encounter
--- OUTSIDE RECORDS SUMMARY | 2025-07-30 18:50 | XMS_ITS | Encounter Summary ---
Author Organization [place] Address [facility] [place] [address] Care Team Providers Care Continuous Weld Pipe Mill Supervisor Name Role Phone [facility], [facility] Primary Care Provider Leatha Wagner APRN [facility] Unavailable [phone] Mariana AcostaC Unavailable [phone] Sarah Juares MD Primary Care Provider [phone] Lucas Nuno MD Unavailable +-6 Mariana Acosta PA-C Unavailable [phone] Lucas Nuno MD Unavailable +-6 Mariana Acosta PA-C Unavailable [phone] Purvi Jeong [facility] Unavailable [phone] Lucas Nuno MD Unavailable +-6 Meghan Cox [facility] Unavailable [phone] Encounter Details Date Type Department Care Team (Late st Contact Info) Description 08/27/2022 [facility] [address] [place] [address] Mariana Acosta PA-C [address] [facility] [address] [place] [address] Social History Tobacco Use Types Packs/Day Years Used Date Smoking Tobacco: Former Smokeless Tobacco: Never Alcohol Use Standard Drinks/Week Comments Not Currently 0 (1 standard drink = 0.6 oz pur e alcohol) rare Butler Depression Scale Answer Date Recorded Butler Depression Score 1 07/06/2021 Last EPDS Self Harm Result Not on file 07/06 Comments No Sex and Gender Information Value Date Recorded Sex Assigned at Female 06/03/2022 7:36 AM CDT 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 Gender Identity Female 06/03/2022 7:36 AM CDT [...] documented as of this encounter Care Teams Continuous Weld Pipe Mill Supervisor Relationship Specialty Start Date End Date [facility], [facility] [address] [place] [address] PCP - General 01/02/14 03/23/23 [place] [address] [place] [address] PCP - General Family Medicine 03/13/25 Leatha Wagner APRN [facility] [address] [place] [address] [id number] Assigned Surgical Provider 11/02/21 09/04/22 Mariana Acosta PA-C [address] [facility] [address] [place], [place] 6[address] Assigned Surgical Provider 09/05/22 12/09/23 Lucas Nuno MD [address] [place] [address] Assigned Surgical Provider 12/10/23 01/07/24 Mariana Acosta PA-C [address] [place] [address] Assigned Surgical Provider 01/08/24 03/08/24 Lucas Nuno MD [address] [place] [address] Assigned Surgical Provider 03/09/24 12/09/24 Mariana Acosta PA-C [address] [place] [address] Assigned Surgical Provider 12/10/24 02/06/25 Purvi Jeong [facility] [address] [place] [address] [phone] Pharmacist Pharmacist Production Support Engineer 01/03/25 Lucas Nuno MD [address] [place] [address] Assigned Surgical Provider 02/07/25 Meghan Cox [facility] [address] [place] [phone] Pharmacist Pharmacist Production Support Engineer 03/20/25 documented as of this encounter
--- NOTE | 2025-07-30 19:22 | CRLHL7_ITS ---
For Patients: As a result of the Century Cures Act, medical imaging exams and procedure reports are released immediately into your electronic medical record. You may view this report before your referring provider. If you have questions, please contact your health care provider. Indication: History of PEs and DVTs Technique: DVT ultrasound of the right upper extremity. Grayscale and color Doppler imaging utilized. Duplex/spectral analysis used. Compression and augmentation as clinically warranted. Comparison: None Findings: All deep vessels are grossly compressible without evidence of filling defect to suggest DVT. Superficial venous thrombosis present within the cephalic vein. Mild edema. Impression: Superficial venous thrombosis present within the cephalic vein with mild soft tissue edema. No DVT visualized on today`s examination. Dictated by Malcolm Gomez MD @ 07/30/2025 8:57:36 PM (Electronically Signed)
--- NOTE | 2025-07-30 19:23 | CRLHL7_ITS ---
For Patients: As a result of the Century Cures Act, medical imaging exams and procedure reports are released immediately into your electronic medical record. You may view this report before your referring provider. If you have questions, please contact your health care provider. INDICATION: Chest pain, shortness of breath, history pulmonary embolism, clotting disorder TECHNIQUE: CT chest with i.v. contrast using pulmonary angiographic technique. MIPS, coronal and sagittal reformats were obtained. CONTRAST: 95 mL Isovue 370 COMPARISON: 05/27/2025 FINDINGS: Cardiovascular: The pulmonary arteries are unremarkable in enhancement with no evidence of acute pulmonary embolism. Mild biventricular cardiomegaly is present without interval change. No sign of aneurysm in the thoracic aorta. Mediastinum: No mass or adenopathy seen. Lung: Both lungs are unremarkable in appearance. Pleura and pericardium: No sign of pleural effusion seen. No significant pericardial effusion is present. Chest wall and axilla: No mass or adenopathy seen. Bone: Unremarkable for age. Upper abdomen: Surgical glaa are seen along the greater curvature of the stomach, likely due to prior bariatric gastric sleeve procedure. IMPRESSIONS: 1. No CT evidence of acute pulmonary emboli seen. 2. Mild biventricular cardiomegaly is present without interval change. Dictated by Nick Disla MD @ 07/30/2025 8:21:52 PM Please note that all CT scans at this facility use dose modulation, iterative reconstruction, and/or weight-based dosing when appropriate to reduce radiation dose to as low as reasonably achievable. Dictated by: Nick Disla MD @ 07/30/2025 20:23:32 (Electronically Signed)
--- NOTE | 2025-07-30 19:26 | ED.GENADULT ---
HPI - General Adult General Chief complaint: Extremity Pain/Injury, Upper Stated complaint: clotting disorder, PE pain- blood clot R arm? Time Seen by Provider: 07/30/25 18:56 History of Present Illness HPI narrative: This 30-year-old female comes in with pain in her right forearm. She has redness and pain and swelling in this area that started last evening. She is afraid that she might have a blood clot. 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 She has been taking intramuscular Lovenox for more than a year and getting better results. She arrives here with normal vital signs and does not report any shortness of breath. She is worried that she might have worsening pulmonary emboli because at times she can take a deep breath and feel some pain. Related Data Home Medications ?Medication ?Instructions ?Recorded ?Confirmed ferrous sulfate 325 mg (65 mg 325 mg PO DAILY 05/18/24 07/30/25 iron) tablet (Feosol) potassium 99 mg tablet 99 mg PO DAILY 05/18/24 07/30/25 escitalopram oxalate 10 mg tablet 10 mg PO QAM 05/27/25 07/30/25 tizanidine 4 mg tablet 4 mg PO 3XD PRN muscle spasm 05/27/25 07/30/25 cyanocobalamin (vitamin B-12) sublingual 07/30/25 1,000 mcg sublingual tablet doxycycline monohydrate 100 mg 100 mg PO DAILY 07/30/25 07/30/25 capsule enoxaparin 150 mg/mL subcutaneous mg subcut Q12H 07/30/25 syringe Allergies Allergy/AdvReac Type Severity Reaction Status Date / Time azithromycin Allergy Unknown Verified 07/30/25 20:13 hydrocodone Allergy Unknown Verified 07/30/25 20:13 tramadol Allergy Unknown Verified 07/30/25 20:13 Review of Systems Status of ROS: Reports: 10 or more systems reviewed and unremarkable except as noted in History and below Narrative: Constitutional: No fevers, no weight gain or loss. Eyes: No discharge. No vision changes. HENT: No congestion, no sore throat, no ear pain. Cardiovascular: No chest pain, no palpitations. Respiratory: No shortness of breath, no wheezes, no cough. Gastrointestinal: No abdominal pain, no vomiting, no diarrhea. Genitourinary: No dysuria, no hematuria. Musculoskeletal: Normal range of motion. Skin: No rashes, no pruritis. Neurological: No dizziness, weakness, sensory change, speech change. Endo/Heme/Allergies: No bruising or bleeding. No polydipsia. Pysch: no suicidality, no anxiety, no insomnia. All other systems reviewed and are negative. PFSH PFSH Social History Smoking Status: Current every day smoker Do you use any of these nicotine containing products: Vaping Products How often do you have a drink containing alcohol: never AUDIT-C Alcohol total score: 0 Non-prescribed substance use: denies use Exam Narrative: Exam Narrative: Constitutional: Well-developed, well-nourished, no acute distress. HEENT: Normocephalic, atraumatic. Neck: Normal range of motion. Nontender. Supple. Heart: Regular. No murmurs. Normal rate. Intact distal pulses. Lungs: Clear to auscultation. No chest discomfort. No wheezes, rhonchi, or rales. Abdomen: Normal bowel sounds. Nontender. No rebound tenderness. Genitalia: Deferred. Back: No midline tenderness. Normal range of motion. Extremities: Normal range of motion. No injury. Redness with warmth and mild swelling in the right forearm typical of cellulitis. Skin: Intact. No rash. Warm. No erythema or pallor. Neurologic: No altered sensation. No weakness. Alert and oriented. Psychiatric: No suicidality. No anxiety or depression. No insomnia. Nursing notes and vitals signs are reviewed. Const: Vital Signs, click to edit/add: Vital Signs - 24 hr 07/30/25 18:49 Temperature 98.7 F Pulse Rate [Pulse Oximeter] 70 Respiratory Rate 18 Blood Pressure [Le ft Upper Arm] 152/110 H Pulse Oximetry 99 Oxygen Delivery Me thod Room Air Course Vital Signs Vital signs: Initial Vital Signs Temperature 98.7 F 07/30/25 18:49 Temperature Source Temporal Artery Scan 07/30/25 18:49 Pulse Rate 70 07/30/25 18:49 Respiratory Rate 18 07/30/25 18:49 Blood Pressure 152/110 H 07/30/25 18:49 Blood Pressure Mean 124 H 07/30/25 18:49 Blood Pressure Position Sitting 07/30/25 18:49 Pulse Oximetry 99 07/30/25 18:49 Oxygen Delivery Method Room Air 07/30/25 18:49 Vital Signs Temperature 98.7 F 07/30/25 18:49 Pulse Rate 70 07/30/25 18:49 Respiratory Rate 18 07/30/25 18:49 Blood Pressure 152/110 H 07/30/25 18:49 Pulse Oximetry 99 07/30/25 18:49 Oxygen Delivery Method Room Air 07/30/25 18:49 Temperature 98.7 F 07/30/25 18:49 Pulse Rate 70 07/30/25 18:49 Respiratory Rate 18 07/30/25 18:49 Blood Pressure 152/110 H 07/30/25 18:49 Pulse Oximetry 99 07/30/25 18:49 Oxygen Delivery Method Room Air 07/30/25 18:49 Medications Administered Medications: Discontinued Medications Generic Name Dose Route Start Last Admin Trade Name Freq PRN Reason Stop Dose Admin Oxycodone HCl 5 mg 07/30/25 19:24 07/30/25 20:02 Oxycodone 5 Mg Tablet PO 07/30/25 19:25 5 mg ONCE ONE Administration Medical Decision Making [facility] Narrative Medical decision making narrative: This patient comes in with redness and pain in her right forearm extending from her elbow down toward her wrist. She has a history of recurrent thromboses and is currently taking Lovenox as this seems to work best to prevent further blood clot formation. She did have an IV placed about a week ago in the right forearm and her symptoms today are extending distally from this area. An ultrasound is obtained and does show evidence of superficial thrombophlebitis in the vein that was accessed. The patient was concerned about a pulmonary embolism and about resolution of previous pulmonary emboli. She was requesting a CT scan also. This was obtained and shows no evidence of pulmonary embolism currently. These results were reassuring for the patient. She did receive an oral dose of Orange here for some pain relief. She will continue on her current medications and follow up with her primary physician. I did provide [facility] prescription for more tablets of Orange for pain relief. Imaging Data CT scan - chest: Radiologist's impression: 1. No CT evidence of acute pulmonary emboli seen. 2. Mild biventricular cardiomegaly is present without interval change. Discharge Plan Discharge Prescriptions: No Action tizanidine 4 mg tablet 4 mg PO 3XD PRN (Reason: muscle spasm) escitalopram oxalate 10 mg tablet 10 mg PO QAM doxycycline monohydrate 100 mg capsule 100 mg PO DAILY enoxaparin 150 mg/mL syringe subcut Q12H cyanocobalamin (vitamin B-12) 1,000 mcg tablet, sublingual sublingual ferrous sulfate [Feosol] 325 mg (65 mg iron) tablet 325 mg PO DAILY potassium 99 mg tablet 99 mg PO DAILY Follow Up/Referrals: Provider,Not a Local [Primary Care Provider, Family Practice]
--- OUTSIDE RECORDS SUMMARY | 2025-07-30 19:29 | XMS_ITS | CCD ---
Author Name Interface, [id number] lity Address [address] [place] [address] [address] [address] Organization [facility] Address [address] [facility] [address] [place] [address] Care Team Providers Care Federal Judge Name Role Phone Enzo Garg MD Unavailable [...] active 07/02 Sucralfa te Oral inactive 07/02 Omeprazo le Oral Delayed Release Capsule active 07/02 Liraglut tam Subcutan eous Pen Injector (Saxenda ) inactive 07/05 Enoxapar in Subcutan eous BID active 07/02 Rivaroxa ban Oral inactive 07/02 Brimonid ine Topical Gel 0.33 % active 07/02 Multivit amins Oral Tablet active 07/02 Apixaban Oral inactive 07/02 Phenterm ine Oral inactive Problems Diagnosis Status Date of Diagnosis Resolution Date IVC thrombosis Active Pulmonary embolism (disorder) Active 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
--- OUTSIDE RECORDS SUMMARY | 2025-07-30 19:30 | XMS_ITS ---
Author Name Interface, Q2Hfiiini lity Address [address] [facility] [address] [address] Organization [facility] Address [address] [facility] [address] [address] Support Name Relationship Address Phone FREEDOM ALEMAN [...] 1 HR 07/07/2023 APPOINTMENT CHART CHECK 5 IN N 07/05/2023 APPOINTMENT [facility] LOW UP 20 MIN 07/05/2023 APPOINTMENT LAB [...] 10.0 130.0 5.80 Low FINAL Enzo Garg [facility] [address] [id number] [phone] Phone: () - 07/05 Iron profi le TIBC ug/dL 250.0 425.0 410 FINAL Enzo Garg [facility], [address] [phone] 0 Phone: () - 07/05 Iron profi le Iron ug/dL 50.0 175.0 43 Low FINAL [facility] Garg [facility], [address] [facility] [address] [phone] 0 Phone: () - 07/05 Iron profi le Unbou nd iron capac ity ug/dL 75.0 410.0 367 FINAL Enzo Garg [place] [address] [phone] 0 Phone: () - 07/05 Iron profi le Iron, % satur ation % 20.0 55.0 10 Low FINAL Enzo Garg [facility], [address] [phone] 0 Phone: () - 07/05 CBC w/ auto diff WBC K/uL 3.0 8.9 7.1 FINAL [facility] [place], [address] [place] [phone] 0 Phone: () - 07/05 CBC w/ auto diff HGB g/dL 11.3 15.2 11.5 FINAL [facility] [place], [address] [place] [phone] 0 Phone: () - 07/05 CBC w/ auto diff PLT K/uL 113.0 364.0 302 FINAL [facility] [place], [address] [place] [phone] 0 Phone: () - 07/05 CBC w/ auto diff Fly # (ANC) K/uL 1.6 6.6 4.5 FINAL [facility] [place], [address] [place] [phone] 0 Phone: () - 07/05 CBC w/ auto diff Fly % % 43.0 74.0 62.6 FINAL [facility] [place], [address] [place] [phone] 0 Phone: () - 07/05 CBC w/ auto diff IG % % 0.0 0.5 0.3 FINAL [facility] [place], [address] [place] [phone] 0 Phone: () - 07/05 CBC w/ auto diff IG # K/uL 0.0 0.03 0.02 FINAL [facility] [place], [address] [place] [phone] 0 Phone: () - 07/05 CBC w/ auto diff LY % % 14.0 41.0 29.7 FINAL [facility] [place], [address] [place] [phone] 0 Phone: () - 07/05 CBC w/ auto diff MO % % 6.0 15.0 5.9 Low FINAL [facility] [place], [address] [place] [phone] 0 Phone: () - 07/05 CBC w/ auto diff EO % % 0.0 7.0 1.4 FINAL [facility] [place], [address] [place] [phone] 0 Phone: () - 07/05 CBC w/ auto diff BA % % 0.0 2.0 0.1 FINAL [facility] [place], [address] [place] [phone] 0 Phone: () - 07/05 CBC w/ auto diff LY # K/uL 0.4 3.6 2.1 FINAL [facility] [place], [address] [place] [phone] 0 Phone: () - 07/05 CBC w/ auto diff MO # K/uL 0.2 1.3 0.4 FINAL [facility] [place], [address] [place] [phone] 0 Phone: () - 07/05 CBC w/ auto diff EO # K/uL 0.0 0.6 0.1 FINAL [facility] [place], [address] [place] [phone] 0 Phone: () - 07/05 CBC w/ auto diff BA # K/uL 0.0 0.2 0.0 FINAL [facility] [place], [address] [place] [phone] 0 Phone: () - 07/05 CBC w/ auto diff NRBC % #/100W BC 0.0 0.2 0.0 FINAL [facility] [place], [address] [place] [phone] 0 Phone: () - 07/05 CBC w/ auto diff RBC M/uL 3.9 5.1 3.81 Low FINAL [facility] [place], [address] [place] [phone] 0 Phone: () - 07/05 CBC w/ auto diff HCT % 35.0 48.0 35.8 FINAL [facility] [place], [address] [place] [phone] 0 Phone: () - 07/05 CBC w/ auto diff MCV fL 80.0 104.0 94.0 FINAL [facility] [place], [address] [place] [phone] 0 Phone: () - 07/05 CBC w/ auto diff MCH pg 26.0 35.0 30.2 FINAL [facility] [place], [address] [place] [phone] 0 Phone: () - 07/05 CBC w/ auto diff MCHC g/dL 30.0 35.0 32.1 FINAL [facility] [place], [address] [place] [phone] 0 Phone: () - 07/05 CBC w/ auto diff MPV fL 9.5 13.4 9.1 Low FINAL [facility] [place], [address] [place] [phone] 0 Phone: () - 07/05 CBC w/ auto diff RDW % 11.4 16.1 15.70 FINAL [facility] [place], [address] [place] [phone] 0 Phone: () - 01/19 [facility] other lab See hat band attacher d 02/17 [facility] other lab See hat band attacher d 03/14 [facility] other lab See hat band attacher d 03/27 [facility] other lab See attache patel 04/02 [facility] other lab See attache patel 04/06 [facility] other lab See attache patel Medications Date [...] Onc Consult <html><head></head><body><div style=text-align:center><span style=font- size:9px></span><span style=font-size:12px><span style=font-family:[place],Helvetica,sans-serif><span class=clinicalNote MacroHighlighted id=[id number] macroname=PracticeLetterhead&quot ; spantype=macro title=#PracticeLetterhead><img uwdhmg=838 src=live/fileDownload?type=[email or web address]&epwaTfrbiymnnqDy=[id number] zujsk=769> </span></span></span>
</div><span style=font-size:12px"><span style=font-family:[place],Helvetica,sans-serif>
<strong>Patient Name: </strong><span class=clinicalNoteMacroHighlighted id=&quo t;[id number] macroname=PatientName spantype=macro title=&q uot;#PatientName>KALEB ALEMAN CARDONA</span>
<strong>MRN: &lt ;/strong><span class=clinicalNoteMacroHighlighted id=[id number]& quot; macroname=PatientMRN spantype=macro title=#PatientMRN>[id number]</span>
<strong>Date of : </strong><span class=&qu ot;clinicalNoteMacroHighlighted id=[id number] macroname=Patient DateOfBirth spantype=macro title=#PatientDateOfBirth>1995< /span>
<strong>Date of Service: </strong><span class=clini calNoteMacroHighlighted id=[id number] macroname=EffectiveDate&qu ot; spantype=macro title=#EffectiveDate>07/05/2023</span></span& gt;</span>
<strong>Attending Physician: </strong><span class=clinicalNoteMacroHighlighted id=[id number] macroname= AttendingPhysician spantype=macro title=#AttendingPhysician>Enzo Garg (Hematology/Oncology)</span>
<strong>Referring Physician:</strong&g t; <span class=clinicalNoteMacroHighlighted id=[id number]& quot; macroname=ReferringPhysician spantype=macro title=#ReferringPhys ician> </span>

<div style=text-align:center><span style=font-size:12px><span style=font-family:[place],Helvetica,sans- serif><strong>INITIAL HEMATOLOGY/MEDICAL ONCOLOGY CONSULTATIO N</strong></span></span>

</div><span style=font-size:12px><span style=font-family:[place],Helvetica,sans-serif><span style=font- size:12px><span style=font-family:[place],Helvetica,sans-serif&g t;</span></span><span class=clinicalNoteSectionShowSeparators clinicalNoteSecti onVisible id=[id number] internalbreaksection=false origi [...] to continue oral iron

<span style=font-size:12px&quo t;><span style=font-family:[place],Helvetica,sans-serif><span class=clin icalNoteSectionShowSeparators clinicalNoteSectionVisible id=[id number]" internalbreaksection=false originalname=[facility] [...] pain planindicated for today's visit</span><span style=font-size:12px><span st yle=font-family:[place],Helvetica,sans-serif>
<span style=font-size:1 2px><span style=font-family:[place],Helvetica,sans-serif><span style=&qu ot;font-size:12px><span style=font-family:[place],Helvetica,sans-serif><span style=font-size:12px><span style=font-family:[place],Helvetica,sans-serif ><span style=font-family:[place]><span class=clinicalNoteSectionShowSeparators clinicalNoteSectionVisible id=[id number] internalbreaks ection=false originalname=Smoking Status recognizeconcepts=true spantype=section suppressempty=true>Smoking Status</span>
Smoking Status: <span class=clinicalNoteMacroHighlighted id=[id number] macroname=PatientSmokingStatus parameters=ValueIfNull:Not recor ded. spantype=macro title=#PatientSmokingStatus(ValueIfNull:Not recorded.)&q uot;>Smoking Tobacco : Former smoker, stopped smokin; Smokeless Tobacco : Never used smokeless tobacco; Vaping : Current vape user</span></span></span></span></spa n></span></span></span></span></span>

<span style=font-size:12px><span style=font-family:[place],Helvetica,sans-serif><span style=font- size:12px><span style=font-family:[place],Helvetica,sans-serif><span class=clinicalNoteSectionShowSeparators clinicalNoteSectionVisible" id=[id number] internalbreaksection=false originalname=&q uot;History of [...] History of Present Illness.
<span style=font-size:12px><span style=&q uot;font-family:[place],Helvetica,sans-serif><span class=clinicalNoteSectionShowSeparators clinicalNoteSectionVisible id=[id number] internalbreaksection=false originalname=Past Medical History recognizeconcepts=true spantype=section suppressempty=false>Past Medical and Surgical History&l t;/span></span></span>
History of iron deficiency anemia

<span style=font-size:12px><span style=font-family:[place],Helvetica,sans-s erif><span class=clinicalNoteSectionShowSeparators clinicalNoteSectionVisible" id=[id number] internalbreaksection=false originalname=Current Medications [...] Subcutaneous)</td> <td width=40%>07/05/2023</td> </tr> </tbody></table></span></span></span>
<span style=font-size:12px><span style=font-family:[place],Helvetica,sans-serif><span class=&quo t;clinicalNoteSectionShowSeparators clinicalNoteSectionVisible id=[id number] internalbreaksection=false originalname=Allergies recognizeconcepts=true spantype=section suppressempty=false>Allergies</span>
<span class=clinicalNoteMacroHighlighted id=[id number] macroname=AllergyTable spantype=macro title=#AllergyTable"><table border=1 style=width:100%> <tbody> <tr> <td colspan=4>Current Allergy List</td> </tr> <tr> <td width="100px>Allergy Name</td> <td lnjug=313ec>Severity</td> <td csdya=339di>Status</td> <td nkchp=806qo>Recording Date</td> </tr> <tr> <td rlvgf=678fx>NSAIDS (Non- Steroidal Anti-Inflammatory Drug)</td> <td crvbn=970di>
</td> <td ksqgj=688bl>Active</td> <td xxqug=765nr>07/05/2023</td> </tr> <tr> <td maixd=238qf>Zithromax</td> <td uekwm=515wk>
</td> <td mpwgu=914fw>Active</td> <td ibwlr=753bk">07/05/2023</td> </tr> </tbody></table></span></span></span>
<span style=font-size:12px><span style=font-family:[place],Helvetica,sans-serif><span class=clinicalNoteSectionShowSeparators clinicalNoteSectionVisible id=[id number] internalbreaksection=false originalname=Family History recognizeconcepts=true spantype=section" suppressempty=false>Family History</span></span></span>
Maternal grandmother had DVT/PE, but this was in the setting of malignancy

<span style=font-size:12px><span style=font-family:[place],Helvetica,sans- serif><span class=clinicalNoteSectionShowSeparators clinicalNoteSectionVisible" id=[id number] internalbreaksection=false originalname="Social History recognizeconcepts=true spantype=section suppressempty=true>Social History</span></span></span>
Has 2 children, ages 4 and 2. Former smoker, quit in 2016. No significant alcohol use.

<span style=font-size:12px><span style=font-family:[place],Helvetica,sans- serif><span class=clinicalNoteSectionShowSeparators clinicalNoteSectionV isible id=[id number] internalbreaksection=false original name=Vital Signs and Pain Scale recognizeconcepts=true spantype=section suppressempty=false>Vital Signs</span>
<span class=cl inicalNoteMacroHighlighted id=[id number] macroname=PatientVita lSigns parameters=LookBackDays:1 spantype=macro title=#PatientVi talSigns(LookBackDays:1)>Blood pressure: 152/86, Pulse: 93, Temperature: 96 F, Respirations: 16, O2 sat: 99%, Pain Scale: 0, Height: 68.75 in, Weight: 297.2 lb, BSA: 2.44, BMI: 44.21 kg/m2</span></span></span>
<span style=font-size:12px><spanstyle=font-family:[place],Helvetica,sans-serif><span style=font-size:12px"><span style=font-family:[place],Helvetica,sans-serif>Immunizations: <span cl ass=clinicalNoteMacroHighlighted id=[id number] macroname=I mmunizations parameters=ValueIfNull:Not [...] <td>
</td> <td>
</td> </tr> </tbody></table></span>
<span class=clinicalNoteMacroHighbroadlawns medical centered id=[id number] macroname=RecentLabResultsTable parameters=OptionalFlowsheetCategory:Chemistries,Label:Chemistries spantype=macro title=#RecentLabResultsTable(Option alFlowsheetCategory:Chemistries,Label:Chemistries)></span>
<span class=&q uot;clinicalNoteMacrILighbroadlawns medical centered id=[id number] macroname=RecentL abResultsTable parameters=OptionalFlowsheetCategory:Tumor Markers,Label:Tumor Markers" spantype=macro title=#RecentLabResultsTable(OptionalFlowsheetCategory:Tumor Ma rkers,Label:Tumor Markers)></span>
<span class=clinicalNoteMacroHig hlighted id=[id number] macroname=RecentLabResultsTable para meters=OptionalFlowsheetCategory:Anemia Labs,Label:Anemia Results spantype=macro" title=#RecentLabResultsTable(OptionalFlowsheetCategory:Anemia Labs,Label:Anemia Results)"></span></span></span>

<span class=clinicalNot eSectionShowSeparators clinicalNoteSectionVisible id=[id number] internalbreaksection=false originalname=Surveys/Consents/Other Discussions recognizeconcepts=true spantype=section suppressempty=true>Surveys/Consents/Other Discussions</span>

<hr><span style="font-size:12px><span style=font-family:[place],Helvetica,sans-serif>
Thank you for allowing me to see [...]
--- OUTSIDE RECORDS SUMMARY | 2025-07-30 19:30 | XMS_ITS ---
Author Name Interface, [id number] lity Address [address] [facility] [address] [address] Organization [facility] Address [address] [facility] [address] [address] Support Name Relationship Address Phone FREEDOM ALEMAN [...] 1 HR 07/07/2023 APPOINTMENT CHART CHECK 5 [place] N 07/05/[address] [facility] LOW UP 20 MIN 07/05/2023 APPOINTMENT [...] tin NG/ML 10.0 130.0 5.80 Low FINAL Enoz Garg [facility], [facility] [address] [phone] Phone: () - 07/05 Iron profi le TIBC ug/dL 250.0 425.0 410 FINAL Enzo Garg [facility], [address] [phone] 0 Phone: () - 07/05 Iron profi le Iron ug/dL 50.0 175.0 43 Low FINAL Enzo Garg [facility], [address] [facility] [address] [phone] 0 Phone: () - 07/05 Iron profi le Unbou nd iron capac ity ug/dL 75.0 410.0 367 FINAL Enzo Garg [place] [address] [phone] 0 Phone: () - 07/05 Iron profi le Iron, % satur ation % 20.0 55.0 10 Low FINAL Enzo Garg [facility], [address] [phone] 0 Phone: () - 07/05 CBC w/ auto diff WBC K/uL 3.0 8.9 7.1 FINAL [facility] [place], [address] [place] [phone] 0 Phone: () - 07/05 CBC w/ auto diff HGB g/dL 11.3 15.2 11.5 FINAL [facility] [place], [address] [place] [phone] 0 Phone: () - 07/05 CBC w/ auto diff PLT K/uL 113.0 364.0 302 FINAL [facility] [place], [address] [place] [phone] 0 Phone: () - 07/05 CBC w/ auto diff Fly # (ANC) K/uL 1.6 6.6 4.5 FINAL [facility] [place], [address] [place] [phone] 0 Phone: () - 07/05 CBC w/ auto diff Fly % % 43.0 74.0 62.6 FINAL [facility] [place], [address] [place] [phone] 0 Phone: () - 07/05 CBC w/ auto diff IG % % 0.0 0.5 0.3 FINAL [facility] [place], [address] [place] [phone] 0 Phone: () - 07/05 CBC w/ auto diff IG # K/uL 0.0 0.03 0.02 FINAL [facility] [place], [address] [place] [phone] 0 Phone: () - 07/05 CBC w/ auto diff LY % % 14.0 41.0 29.7 FINAL [facility] [place], [address] [place] [phone] 0 Phone: () - 07/05 CBC w/ auto diff MO % % 6.0 15.0 5.9 Low FINAL [facility] [place], [address] [place] [phone] 0 Phone: () - 07/05 CBC w/ auto diff EO % % 0.0 7.0 1.4 FINAL [facility] [place], [address] [place] [phone] 0 Phone: () - 07/05 CBC w/ auto diff BA % % 0.0 2.0 0.1 FINAL [facility] [place], [address] [place] [phone] 0 Phone: () - 07/05 CBC w/ auto diff LY # K/uL 0.4 3.6 2.1 FINAL [facility] [place], [address] [place] [phone] 0 Phone: () - 07/05 CBC w/ auto diff MO # K/uL 0.2 1.3 0.4 FINAL [facility] [place], [address] [place] [phone] 0 Phone: () - 07/05 CBC w/ auto diff EO # K/uL 0.0 0.6 0.1 FINAL [facility] [place], [address] [place] [phone] 0 Phone: () - 07/05 CBC w/ auto diff BA # K/uL 0.0 0.2 0.0 FINAL [facility] [place], [address] [place] [phone] 0 Phone: () - 07/05 CBC w/ auto diff NRBC % #/100W BC 0.0 0.2 0.0 FINAL [facility] [place], [address] [place] [phone] 0 Phone: () - 07/05 CBC w/ auto diff RBC M/uL 3.9 5.1 3.81 Low FINAL [facility] [place], [address] [place] [phone] 0 Phone: () - 07/05 CBC w/ auto diff HCT % 35.0 48.0 35.8 FINAL [facility] [place], [address] [place] [phone] 0 Phone: () - 07/05 CBC w/ auto diff MCV fL 80.0 104.0 94.0 FINAL [facility] [place], [address] [place] [phone] 0 Phone: () - 07/05 CBC w/ auto diff MCH pg 26.0 35.0 30.2 FINAL [facility] [place], [address] [place] [phone] 0 Phone: () - 07/05 CBC w/ auto diff MCHC g/dL 30.0 35.0 32.1 FINAL [facility] [place], [address] [place] [phone] 0 Phone: () - 07/05 CBC w/ auto diff MPV fL 9.5 13.4 9.1 Low FINAL [facility] [place], [address] [place] [phone] 0 Phone: () - 07/05 CBC w/ auto diff RDW % 11.4 16.1 15.70 FINAL [facility] [place], [address] [place] [phone] 0 Phone: () - 01/19 [facility] other lab See biomedical scientist d 02/17 [facility] other lab See biomedical scientist d 03/14 [facility] other lab See biomedical scientist d 03/27 [facility] other lab See attache patel 04/02 [facility] other lab See attache patel 04/06 [facility] other lab See attache patel Medications Date [...] Onc Consult <html><head></head><body><div style=text-align:center><span style=font- size:9px></span><span style=font-size:12px><span style=font-family:[place],Helvetica,sans-serif><span class=clinicalNote MacroHighlighted id=[id number] macroname=PracticeLetterhead&quot ; spantype=macro title=#PracticeLetterhead><img exifdl=465 src=live/fileDownload?type=1&qsylQxnytgscpvUc=[id number] zbjna=566> </span></span></span>
</div><span style=font-size:12px"><span style=font-family:[place],Helvetica,sans-serif>
<strong>Patient Name: </strong><span class=clinicalNoteMacroHighlighted id=&quo t;[id number] macroname=PatientName spantype=macro title=&q uot;#PatientName>KALEB ALEMAN CARDONA</span>
<strong>MRN: &lt ;/strong><span class=clinicalNoteMacroHighlighted id=[id number]& quot; macroname=PatientMRN spantype=macro title=#PatientMRN>[id number]</span>
<strong>Date of : </strong><span class=&qu ot;clinicalNoteMacroHighlighted id=[id number] macroname=Patient DateOfBirth spantype=macro title=#PatientDateOfBirth>1995< /span>
<strong>Date of Service: </strong><span class=clini calNoteMacroHighlighted id=[id number] macroname=EffectiveDate&qu ot; spantype=macro title=#EffectiveDate>07/05/2023</span></span& gt;</span>
<strong>Attending Physician: </strong><span class=clinicalNoteMacroHighlighted id=[id number] macroname= AttendingPhysician spantype=macro title=#AttendingPhysician>Enzo Garg (Hematology/Oncology)</span>
<strong>Referring Physician:</strong&g t; <span class=clinicalNoteMacroHighlighted id=[id number]& quot; macroname=ReferringPhysician spantype=macro title=#ReferringPhys ician> </span>

<div style=text-align:center><span style=font-size:12px><span style=font-family:[place],Helvetica,sans- serif><strong>INITIAL HEMATOLOGY/MEDICAL ONCOLOGY CONSULTATIO N</strong></span></span>

</div><span style=font-size:12px><span style=font-family:[place],Helvetica,sans-serif><span style=font- size:12px><span style=font-family:[place],Helvetica,sans-serif&g t;</span></span><span class=clinicalNoteSectionShowSeparators clinicalNoteSecti onVisible id=[id number] internalbreaksection=false origi [...] to continue oral iron

<span style=font-size:12px&quo t;><span style=font-family:[place],Helvetica,sans-serif><span class=clin icalNoteSectionShowSeparators clinicalNoteSectionVisible id=[id number]" internalbreaksection=false originalname=Advanced Care [...] pain planindicated for today's visit</span><span style=font-size:12px><span st yle=font-family:[place],Helvetica,sans-serif>
<span style=font-size:1 2px><span style=font-family:[place],Helvetica,sans-serif><span style=&qu ot;font-size:12px><span style=font-family:[place],Helvetica,sans-serif><span style=font-size:12px><span style=font-family:[place],Helvetica,sans-serif ><span style=font-family:[place]><span class=clinicalNoteSectionShowSeparators clinicalNoteSectionVisible id=[id number] internalbreaks ection=false originalname=Smoking Status recognizeconcepts=true spantype=section suppressempty=true>Smoking Status</span>
Smoking Status: <span class=clinicalNoteMacroHighlighted id=[id number] macroname=PatientSmokingStatus parameters=ValueIfNull:Not recor ded. spantype=macro title=#PatientSmokingStatus(ValueIfNull:Not recorded.)&q uot;>Smoking Tobacco : Former smoker, stopped smokin; Smokeless Tobacco : Never used smokeless tobacco; Vaping : Current vape user</span></span></span></span></spa n></span></span></span></span></span>

<span style=font-size:12px><span style=font-family:[place],Helvetica,sans-serif><span style=font- size:12px><span style=font-family:[place],Helvetica,sans-serif><span class=clinicalNoteSectionShowSeparators clinicalNoteSectionVisible" id=[id number] internalbreaksection=false originalname=&q uot;History of [...] History of Present Illness.
<span style=font-size:12px><span style=&q uot;font-family:[place],Helvetica,sans-serif><span class=clinicalNoteSectionShowSeparators clinicalNoteSectionVisible id=[id number] internalbreaksection=false originalname=Past Medical History recognizeconcepts=true spantype=section suppressempty=false>Past Medical and Surgical History&l t;/span></span></span>
History of iron deficiency anemia

<span style=font-size:12px><span style=font-family:[place],Helvetica,sans-s erif><span class=clinicalNoteSectionShowSeparators clinicalNoteSectionVisible" id=[id number] internalbreaksection=false originalname=Current Medications [...] Subcutaneous)</td> <td width=40%>07/05/2023</td> </tr> </tbody></table></span></span></span>
<span style=font-size:12px><span style=font-family:[place],Helvetica,sans-serif><span class=&quo t;clinicalNoteSectionShowSeparators clinicalNoteSectionVisible id=[id number] internalbreaksection=false originalname=Allergies recognizeconcepts=true spantype=section suppressempty=false>Allergies</span>
<span class=clinicalNoteMacroHighlighted id=[id number] macroname=AllergyTable spantype=macro title=#AllergyTable"><table border=1 style=width:100%> <tbody> <tr> <td colspan=4>Current Allergy List</td> </tr> <tr> <td width="100px>Allergy Name</td> <td qjdzq=645ea>Severity</td> <td zvorr=465kz>Status</td> <td gamaf=965ba>Recording Date</td> </tr> <tr> <td cgtqs=948fh>NSAIDS (Non- Steroidal Anti-Inflammatory Drug)</td> <td gwzcx=565tm>
</td> <td wqfyv=400mr>Active</td> <td zprka=563pn>07/05/2023</td> </tr> <tr> <td xwsvg=721ls>Zithromax</td> <td yhgdn=361ie>
</td> <td cwpdd=248fg>Active</td> <td kbycj=211if">07/05/2023</td> </tr> </tbody></table></span></span></span>
<span style=font-size:12px><span style=font-family:[place],Helvetica,sans-serif><span class=clinicalNoteSectionShowSeparators clinicalNoteSectionVisible id=[id number] internalbreaksection=false originalname=Family History recognizeconcepts=true spantype=section" suppressempty=false>Family History</span></span></span>
Maternal grandmother had DVT/PE, but this was in the setting of malignancy

<span style=font-size:12px><span style=font-family:[place],Helvetica,sans- serif><span class=clinicalNoteSectionShowSeparators clinicalNoteSectionVisible" id=[id number] internalbreaksection=false originalname="Social History recognizeconcepts=true spantype=section suppressempty=true>Social History</span></span></span>
Has 2 children, ages 4 and 2. Former smoker, quit in 2016. No significant alcohol use.

<span style=font-size:12px><span style=font-family:[place],Helvetica,sans- serif><span class=clinicalNoteSectionShowSeparators clinicalNoteSectionV isible id=[id number] internalbreaksection=false original name=Vital Signs and Pain Scale recognizeconcepts=true spantype=section suppressempty=false>Vital Signs</span>
<span class=cl inicalNoteMacroHighlighted id=[id number] macroname=PatientVita lSigns parameters=LookBackDays:1 spantype=macro title=#PatientVi talSigns(LookBackDays:1)>Blood pressure: 152/86, Pulse: 93, Temperature: 96 F, Respirations: 16, O2 sat: 99%, Pain Scale: 0, Height: 68.75 in, Weight: 297.2 lb, BSA: 2.44, BMI: 44.21 kg/m2</span></span></span>
<span style=font-size:12px><spanstyle=font-family:[place],Helvetica,sans-serif><span style=font-size:12px"><span style=font-family:[place],Helvetica,sans-serif>Immunizations: <span cl ass=clinicalNoteMacroHighlighted id=[id number] macroname=I mmunizations parameters=ValueIfNull:Not [...] <td>
</td> <td>
</td> </tr> </tbody></table></span>
<span class=clinicalNoteMacroHighmercyone elkader medical centered id=[id number] macroname=RecentLabResultsTable parameters=OptionalFlowsheetCategory:Chemistries,Label:Chemistries spantype=macro title=#RecentLabResultsTable(Option alFlowsheetCategory:Chemistries,Label:Chemistries)></span>
<span class=&q uot;clinicalNoteMacrORighmercyone elkader medical centered id=[id number] macroname=RecentL abResultsTable parameters=OptionalFlowsheetCategory:Tumor Markers,Label:Tumor Markers" spantype=macro title=#RecentLabResultsTable(OptionalFlowsheetCategory:Tumor Ma rkers,Label:Tumor Markers)></span>
<span class=clinicalNoteMacroHig hlighted id=[id number] macroname=RecentLabResultsTable para meters=OptionalFlowsheetCategory:Anemia Labs,Label:Anemia Results spantype=macro" title=#RecentLabResultsTable(OptionalFlowsheetCategory:Anemia Labs,Label:Anemia Results)"></span></span></span>

<span class=clinicalNot eSectionShowSeparators clinicalNoteSectionVisible id=[id number] internalbreaksection=false originalname=Surveys/Consents/Other Discussions recognizeconcepts=true spantype=section suppressempty=true>Surveys/Consents/Other Discussions</span>

<hr><span style="font-size:12px><span style=font-family:[place],Helvetica,sans-serif>
Thank you for allowing me to see [...]
--- OUTSIDE RECORDS SUMMARY | 2025-07-30 19:34 | XMS_ITS | CCD ---
Author Name Interface, [id number] lity Address [address] [place] [address] [address] [address] Organization [facility] Address [address] [facility] [address] [place] [address] Care Team Providers Care Bryologist Name Role Phone Enzo Garg MD Unavailable [...]
[2025-07-30 21:34] VITALS: BP 150/94; PULSE 97; RESP 18; O2SAT 98
== END 2025-07-30 21:36 | disposition home or self-care (01) ==
PROVIDERS: Emergency Provider Emergency Medicine Emergency Medical Services
DX: I80.8 Phlebitis and thrombophlebitis of other sites (principal); Z79.01 Long term (current) use of anticoagulants
CPT/HCPCS: 71275; 93971; 99284; 99285; A9270; Q9967

== ENCOUNTER 2025-07-31 18:34 | Observation (INO) | payer BC, SELFPAY ==
--- OUTSIDE RECORDS SUMMARY | 2025-06-28 14:00 | XMS_ITS | Encounter Summary ---
Author Organization [facility] Address [address] [place] [address] Care Team Providers Care Beer Merchant Name Role Phone Elsewhere, Pcp Primary Care Provider Unavailabl e Reason for Referral * Outpatient (Routine) - Closed Specialty Diagnoses / Procedures Referred By Contac t Referred To Contact Vascular Medicine Hang Arrington M.D. [address] [place] [address] Phone: tel: fax: [facility] Referral ID Status Reason Start Date Expiration Date Visits Re quested Visits Authorized [id number] Closed 06/28/2025 12/28/2026 1 1 Scheduling Instructions 4:30 p.m. virtual visit * Cardiovascular-Diagnostic (Routine) - Authorized Specialty Diagnoses / Procedures Referred By Contac t Referred To Contact Diagnoses Embolus Pulmonary (HCC) Palpitations Hyperhomocysteinemia (HCC) Anemia B12 Deficiency Anticoagulant Therapy Procedures ECG Heart rhythm monitor (Holter) Hang Arrington M.D. [address] [place] [address] Phone: tel: fax: [facility] Referral ID Status Reason Start Date Expiration Date V isits Requested Visits Authorized [id number] Authorized 06/28/2025 09/28/2026 1 1 Reason for Visit * Outpatient (Routine) - Closed Specialty Diagnoses / Procedures Referred By Sherri mnedes Referred To Contact Vascular Medicine Hang Arrington M.D. [address] [place] [address] Phone: tel: fax: [facility] Referral ID Status Reason Start Date Expiration Date Visits Re quested Visits Authorized [id number] Closed 06/27/2025 12/27/2026 1 1 Encounter Details Date Type Department Care Team (Late st Contact Info) Description 06/28/2025 2:00 PM CDT Telemedicine Department of Vascular Medicine in [place], [place] [address] [place] [phone] Hang Arrington M.D. [address] [place] [phone] Embolus Pulmonary (HCC) (Primary Dx); Palpitations; Hyperhomocysteinemia (HCC); Anemia B12 Deficiency; Anticoagulant Therapy Social History Tobacco Use Types Packs/Day Years Used Date Smoking Tobacco: Former Cigarettes 0 05/22/2014 - 10/14/2018 Passive Smoke Exposure: Current Smokeless Tobacco: Never Alcohol Use Standard Drinks/Week Comments Not Currently 3 (1 standard drink = 0.6 oz pure alcohol) Date nights maybe wednesday and wednesday [facility] Utilities Answer Date Recorded In the past 12 months has [facility] [employer], gas, oil, or water [employer] threatened to shut off services in your [...] your living situation today? 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 She says evaluation there was negative for [...] any respiratory distress when I saw her [id number] through video visit ASSESSMENT AND PLAN #1 [...] these). Hang Arrington M.D. Vascular Medicine Pager: [phone] [1] Current Outpatient Medications Medication Sig Dispense [...] 2:30 PM CDT Appointment Department of Radiology, [facility] in [place], [place] [address] [place] [address] Hang Arrington M.D. [address] [place] [phone] Discharge Disposition: Home or Self Care 08/03/2025 3:30 PM CDT Appointment Department of Radiology, [facility], in [place], [place] [address] [place] [address] Hang Arrington M.D. [address] [place] [phone] 08/20/2025 10:00 AM [facility] Telemedicine Department of Vascular Medicine in [place], [place] [address] [place] [address] Hang Arrington M.D. [address] [place] [address] Scheduled Referrals Name Type Priority Associated Diagnoses Orde r Schedule Vascular Medicine office visit (clinic) Outpatient Referral Routine Expected: 07/06/2025, Expires: 09/27/2026 documented as of this encounter Results * HOLTER MONITOR - IN CLINIC MORTGAGE LOAN INTERVIEWER (07/08/2025 5:15 AM CDT) Min Heart Rate [...] Duration 0 duration INFOBION IC MOME AF [place] 0 percent INFOBIONIC MOME Symptom Count 13 [...] these events, one PAC was seen singly. Prop Drawer: FELTON Ha Procedure Note Alcides Eng M.D., [...] these events, one PAC was seen singly. Prop Drawer: FELTON Ha Hang Arrington M.D. CV CARDIAC SERVICES PROCEDUR ES Final Result Performing Organization Address City/[facility] Co de Phone Number BABAK MCCANN [...] ADD-ON Final R esult Performing Organization Address City/[facility]/ZIP Co de Phone Number [facility] [address] [place] [address], [place] DTL [facility] [address] [place] [address] documented in this encounter Visit Diagnoses Diagnosis Embolus Pulmonary (HCC)- Primary Palpitations Hyperhomocysteinemia (HCC) Anemia B12 Deficiency Anticoagulant Therapy Embolus Pulmonary (HCC) Palpitations Hyperhomocysteinemia (HCC) Anemia B12 Deficiency Anticoagulant Therapy documented in this encounter Care Teams Beer Merchant Relationship Specialty Start Date End Date Elsewhere, Pcp PCP - General Internal Medicine 04/12/24 documented as of this encounter
--- OUTSIDE RECORDS SUMMARY | 2025-07-06 08:30 | XMS_ITS | Encounter Summary ---
Author Organization [facility] Address [address] [place] [address] Care Team Providers Care Tie Cutter Name Role Phone Elsewhere, Pcp Primary Care Provider Unavailabl e Reason for Referral * MRI/CAT/PET Scan (Routine) - Closed Specialty Diagnoses / Procedures Referred By Contac t Referred To Contact Radiology Diagnoses Embolus Pulmonary (HCC) Procedures CT Chest Angiogram and Pulmonary Arteries with IV Contrast Hang Arrington M.D. [address] [place] [address] Phone: tel: fax: [facility] Referral ID Status Reason Start Date Expiration Date Visits Re quested Visits Authorized [id number] Closed 07/05/2025 10/02/2025 1 1 Reason for Visit * MRI/CAT/PET Scan (Routine) - Closed Specialty Diagnoses / Procedures Referred By Contac t Referred To Contact Radiology Diagnoses Embolus Pulmonary (HCC) Procedures CT Chest Angiogram and Pulmonary Arteries with IV Contrast Hang Arrington M.D. [address] [place] [address] Phone: tel: fax: [facility] Referral ID Status Reason Start Date Expiration Date Visits Re quested Visits Authorized [id number] Closed 07/05/2025 10/02/2025 1 1 Encounter Details Date Type Department Care Team (Latest Contact Info) Description 07/06/2025 8:30 AM CDT - 07/06/2025 9:44 AM CDT Hospital Encounter Department of Radiology, [facility], in [place], [place] [address] [place] [address] Hang Arrington M.D. [address] [place] [address] Embolus Pulmonary (HCC) Discharge Disposition: Home or Self Care Social History Tobacco Use Types Packs/Day Years Used Date Smoking Tobacco: Former Cigarettes 0 05/22/2014 - 10/14/2018 Passive Smoke Exposure: Current Smokeless Tobacco: Never Alcohol Use Standard Drinks/Week Comments Not Currently 3 (1 standard drink = 0.6 oz pure alcohol) Date nights maybe wednesday and wednesday [facility] Utilities Answer Date Recorded In the past 12 months has e [employer], gas, oil, or water [employer] threatened to shut off services in your [...] your living situation today? 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 07/04/2024 calcium carbonate 1,250 mg (500 mg calcium) chewable tablet Chew 500 mg 3 (three) times a day as needed for indigestion or heartburn. cyanocobalamin (Vitamin B-12) 1,000 mcg tablet Take 1 tablet by mouth daily. enoxaparin (Lovenox) 150 mg/mL injection Inject 150 mg under the skin 2 (two) times a day. ferrous sulfate 325 mg (65 mg iron) DR tablet Take 325 mg by mouth 3 (three) times a day. folic acid 1 mg tablet Take 2 tablets (2 mg total) by mouth daily. 60 tablet 07/04/2024 8:10 PM CDT 07/04/2024 multivitamin tablet Take 1 tablet by mouth daily. pantoprazole (Protonix) 40 mg EC tablet Take 1 tablet by mouth daily. 12/16/2023 albuterol (ProAir HFA) 90 mcg/actuation inhaler Inhale 2 puffs every 4 (four) hours as needed. 5 brimonidine 0.33 % gel with pump Apply topically. 02/05/2023 5 folic acid (Folvite) 5 mg/mL injection Inject 0.2 mL (1 mg total) under the skin daily for 2 days. 0.4 mL 07/05/2024 5 ivermectin (Soolantra) 1 % cream creamIndications :Rosacea Apply 1 Application topically daily. Apply to the entire face. 45 g 5 04/14/2024 5 prochlorperazine (Compazine) 5 mg tablet Take 1 tablet (5 mg total) by mouth every 6 (six) hours as needed for nausea or vomiting. 30 tablet 07/04/2024 8:10 PM CDT 07/04/2024 documented as of this encounter Plan of Treatment Upcoming Encounters Date Type Department Care Team (Late st Contact Info) Description 08/03/2025 2:30 PM CDT Appointment Department of Radiology, [facility] in [place], [place] [address] [place] [phone] Hang Arrington M.D. [address] [place] [phone] Discharge Disposition: Home or Self Care 08/03/2025 3:30 PM CDT Appointment Department of Radiology, [facility] in [place], [place] [address] [place] [phone] Hang Arrington M.D. [address] [place] [phone] 08/20/2025 10:00 AM BEAUTY OPERATOR Telemedicine Department of Vascular Medicine in [place], [place] [address] [place] [phone] Hang Arrington M.D. [address] [place] [phone] documented as of this encounter Procedures Procedure Name Priority Date/Time Associated Diagnosis Comments CT CHEST ANGIOGRAM AND PULMONARY ARTERIES WITH IV CONTRAST RAD - Routine (most inpatients and all outpatients) 07/06/2025 10:01 AM CDT Embolus Pulmonary (HCC) documented in this encounter Results * CT Chest Angiogram and Pulmonary Arteries with IV Contrast (07/06/2025 10:01 AM CDT) Anatomical Region Laterality Modality Chest, Cardiovascular RST LO S, Thoracic ARZ LOS, Thoracic FLA LOS N/A Computed Tomography, Compute d Tomography 07/06/2025 9:44 AM CDT Impressions 07/06/2025 10:07 AM CDT 1. Negative for acute pulmonary embolism. Positive for multifocal chronic pulmonary embolism, mildly decreased compared to 06/21/2025. 2. Signs of right ventricular dysfunction are absent. No pulmonary infarct. 3. Findings discussed with Dr. Hang Arrington, pager [phone] or [phone] by Xochitl Amanda APRN at 10:03 am on 07/06/2025. Narrative 07/06/2025 10:07 AM CDT EXAM: CT CHEST ANGIOGRAM AND PULMONARY ARTERIES WITH IV CONTRAST Including 3D image postprocessing with or without AI assistance. CLINICAL HISTORY: Follow-up recent PE. COMPARISON STUDIES: Outside CT chest PE study 06/21/2025. FINDINGS: PULMONARY ARTERIES: Small multifocal filling defects are present in bilateral segmental and subsegmental pulmonary arteries (6/82, 101, 139, 144, 154), overall decreased in size compared to 06/21/2025. No new filling defects identified to suggest acute pulmonary embolism. No CT findings for right heart strain. The main pulmonary artery is upper limits of normal in caliber, 30 mm, unchanged. LOWER NECK: No enlarged supraclavicular lymph nodes. No actionable nodule in the imaged thyroid gland. MEDIASTINUM: No enlarged mediastinal or hilar lymph nodes by CT size criteria. HEART and PERICARDIUM: Cardiac chambers are normal in size. No pericardial effusion. THORACIC VESSELS: Main pulmonary artery and aorta are normal in caliber. PLEURAL SPACE: No pleural effusion or pleural thickening. No pneumothorax. PULMONARY PARENCHYMA and AIRWAYS: Borderline mild airway wall thickening. Small calcified granulomas. No new or enlarging pulmonary nodules. Mild linear subsegmental atelectasis or scarring in the bilateral lower lobes. No consolidation. No CT findings for pulmonary infarct. Central airways are patent. OSSEOUS STRUCTURES and CHEST WALL: No aggressive osseous lesions. No enlarged lymph nodes in the imaged axilla. UPPER ABDOMEN: Postsurgical changes of bariatric surgery in the imaged stomach. Procedure Note Octavia Jimenes M.D. - 07/06/2025 EXAM: CT CHEST ANGIOGRAM AND PULMONARY ARTERIES WITH IV CONTRAST Including 3D image postprocessing with or without AI assistance. CLINICAL HISTORY: Follow-up recent PE. COMPARISON STUDIES: Outside CT chest PE study 06/21/2025. FINDINGS: PULMONARY ARTERIES: Small multifocal filling defects are present inbilateral segmental and subsegmental pulmonary arteries (6/82, 101, 139,144, 154), overall decreased in size compared to 06/21/2025. No new fillingdefects identified to suggest acute pulmonary embolism. No CT findings forright heart strain. The main pulmonary artery is upper limits of normal incaliber, 30 mm, unchanged. LOWER NECK: No enlarged supraclavicular lymph nodes. No actionable nodulein the imaged thyroid gland. MEDIASTINUM: No enlarged mediastinal or hilar lymph nodes by CT sizecriteria. HEART and PERICARDIUM: Cardiac chambers are normal in size. No pericardialeffusion. THORACIC VESSELS: Main pulmonary artery and aorta are normal in caliber. PLEURAL SPACE: No pleural effusion or pleural thickening. Nopneumothorax. PULMONARY PARENCHYMA and AIRWAYS: Borderline mild airway wall thickening.Small calcified granulomas. No new or enlarging pulmonary nodules. Mildlinear subsegmental atelectasis or scarring in the bilateral lower lobes.No consolidation. No CT findings for pulmonary infarct. Central airwaysare patent. OSSEOUS STRUCTURES and CHEST WALL: No aggressive osseous lesions. Noenlarged lymph nodes in the imaged axilla. UPPER ABDOMEN: Postsurgical changes of bariatric surgery in the imagedstomach. IMPRESSION: 1. Negative for acute pulmonary embolism. Positive for multifocal chronicpulmonary embolism, mildly decreased compared to 06/21/2025. 2. Signs of right ventricular dysfunction are absent. No pulmonaryinfarct. 3. Findings discussed with Dr. Hang Arrington, pager [phone] or [phone] Max Amanda APRN at 10:03 am on 07/06/2025. Hang Arrington M.D. [facility] PROCEDURES Final Resu lt documented in this encounter Visit Diagnoses Diagnosis Embolus Pulmonary (HCC) documented in this encounter Administered Medications Inactive Administered Medications - up to 3 most recent administrations Medication Order MAR Action Action Date Dose Rate Site iopromide 370 mg iodine/mL injection 1-162 mL (Ultravist) 1-162 mL, intravenous, Once in imaging, contrast, Starting on Wed07/06/25 at 0836, For 1 dose, Imaging Protocol Orders, Dose per Radiant Medication Guidelines Given 07/06/2025 9:44 AM CDT 80 mL sodium chloride (PF) 0.9 % injection 1-100 mL 1-100 mL, intravenous, Once, On Wed07/06/25 at 0900, For 1 dose, Imaging Protocol Orders, Dose per Radiant Medication Guidelines Given 07/06/2025 9:44 AM CDT 30 mL documented in this encounter Care Teams Tie Cutter Relationship Specialty Start Date End Date Elsewhere, Pcp PCP - General Internal Medicine 04/12/24 documented as of this encounter
--- OUTSIDE RECORDS SUMMARY | 2025-07-06 10:10 | XMS_ITS | Encounter Summary ---
Author Organization [facility] Address [address] [place] [address] Care Team Providers Care Government Clerk Name Role Phone Elsewhere, Pcp Primary Care Provider Unavailabl e Encounter Details Date Type Department Care Team (Latest Contact Info) Description 07/06/2025 10:10 AM CDT - 07/06/2025 10:39 AM CDT Hospital Encounter Department of Laboratory Medicine and Pathology, [facility] in [place], [place] [address] [place] [address] Hang Arrington M.D. [address] [place] [phone] Embolus Pulmonary (HCC); Palpitations; Hyperhomocysteinemi a (HCC); Anemia B12 Deficiency; Anticoagulant Therapy Discharge Disposition: Home or Self Care Social History Tobacco Use Types Packs/Day Years Used Date Smoking Tobacco: Former Cigarettes 0 05/22/2014 - 10/14/2018 Passive Smoke Exposure: Current Smokeless Tobacco: Never Alcohol Use Standard Drinks/Week Comments Not Currently 3 (1 standard drink = 0.6 oz pure alcohol) Date nights maybe wednesday and wednesday [facility] Utilities Answer Date Recorded In the past 12 months has [facility] [employer], gas, oil, or water company threatened to shut off services in your [...] your living situation today? I have a [facility] place to live 07/03/2024 Comments Unknown Sex and Gender Information Value Date Recorded Sex Assigned at Not on file Legal Sex Female 6:06 PM BIODIESEL PRODUCTION ASSOCIATE Gender Identity Not on file Sexual Orientation [...] % gel with pump Apply topically. 02/05/2023 folic acid (Folvite) 5 mg/mL injection Inject [...] 2:30 PM CDT Appointment Department of Radiology, [facility], in [place], [place] [address] [place] [address] Hang Arrington M.D. [address] [place] [phone] Discharge Disposition: Home or Self Care 08/03/2025 3:30 PM CDT Appointment Department of Radiology, [facility], in [place], [place] [address] [place] [address] Hang Arrington M.D. [address] [place] [phone] 08/20/2025 10:00 AM [facility] Telemedicine Department of Vascular Medicine in [place], [place] [address] [place] [address] Hang Arrington M.D. [address] [place] [address] documented as of this encounter Procedures Procedure Name Priority Date/Time Associated Diagnosis Comments HEPARIN LEVEL ANTI-XA ASSAY, P Routine 07/06/2025 10:27 AM CDT Embolus Pulmonary (HCC) Palpitations Hyperhomocysteinemi a (HCC) Anemia B12 Deficiency Anticoagulant Therapy documented in this encounter Results * Heparin Anti-Xa Assay (07/06/2025 10:27 AM [...] LAB BLOOD NON ADD-ON Final R esult [facility] [address] [place] [address], [place] [facility] [address] [place] [address] documented in this encounter Visit Diagnoses Diagnosis Embolus Pulmonary (HCC) Palpitations Hyperhomocysteinemia (HCC) Anemia B12 Deficiency Anticoagulant Therapy documented in this encounter Care Teams Government Clerk Relationship Specialty Start Date End Date Elsewhere, Pcp PCP - General Internal Medicine 04/12/24 documented as of this encounter
--- OUTSIDE RECORDS SUMMARY | 2025-07-06 10:40 | XMS_ITS | Encounter Summary ---
Author Organization [facility] Address [address] [place] [address] Care Team Providers Care Chief Medical Officer Name Role Phone Elsewhere, Pcp Primary Care Provider Unavailabl e Reason for Referral * Cardiovascular-Diagnostic (Routine) - Authorized Specialty Diagnoses / Procedures Referred By Contac t Referred To Contact Diagnoses Embolus Pulmonary (HCC) Palpitations Hyperhomocysteinemia (HCC) Anemia B12 Deficiency Anticoagulant Therapy Procedures ECG Heart rhythm monitor (Holter) Hang Arrington M.D. 200 [place] [address] Phone: tel: fax: [facility] Referral ID Status Reason Start Date Expiration Date V isits Requested Visits Authorized [id number] Authorized 06/28/2025 09/28/2026 1 1 Reason for Visit * Cardiovascular-Diagnostic (Routine) - Authorized Specialty Diagnoses / Procedures Referred By Contac t Referred To Contact Diagnoses Embolus Pulmonary (HCC) Palpitations Hyperhomocysteinemia (HCC) Anemia B12 Deficiency Anticoagulant Therapy Procedures ECG Heart rhythm monitor (Holter) Hang Arrington M.D. [address] [place] [phone] Phone: tel: fax: [facility] Referral ID Status Reason Start Date Expiration Date V isits Requested Visits Authorized [id number] Authorized 06/28/2025 09/28/2026 1 1 Encounter Details Date Type Department Care Team (Latest Contact Info) Description 07/06/2025 10:40 AM CDT - 07/06/2025 11:59 PM CDT Hospital Encounter Department of Cardiovascular Diseases in [place], [place] [address] [place] [address] Hang Arrington M.D. 200 [place] [address] Embolus Pulmonary (HCC); Palpitations; Hyperhomocysteinemi a (HCC); [...] maybe wednesday and wednesday [facility] Utilities Answer Date Recorded In the past 12 months has [facility] [employer], oil, or water [employer] threatened to shut off services in your [...] your living situation today? I have a [facility] place to live 07/03/2024 Comments Unknown Sex and Gender Information Value Date Recorded Sex Assigned at Not on file Legal Sex Female 6:06 PM SCIENTIFIC AFFAIRS MANAGER Gender Identity Not on file Sexual Orientation [...] 2:30 PM CDT Appointment Department of Radiology, [place], [place] [address] [place] [phone] Hang Arrington M.D. [address] [place] [phone] Discharge Disposition: Home or Self Care 08/03/2025 3:30 PM CDT Appointment Department of Radiology, [place], [place] [address] [place] [phone] Hang Arrington M.D. [address] [place] [phone] 08/20/2025 10:00 AM SCIENTIFIC AFFAIRS MANAGER Telemedicine Department of Vascular Medicine in [place], [place] [address] [place] [phone] Hang Arrington M.D. [address] [place] [phone] documented as of this encounter Procedures Procedure Name Priority Date/Time Associated Diagnosis Comments HOLTER MONITOR - IN CLINIC POULTRY FARM MANAGER Routine 07/08/2025 5:15 AM CDT Embolus Pulmonary (HCC) Palpitations Hyperhomocysteinemi a (HCC) Anemia B12 Deficiency Anticoagulant Therapy documented in this encounter Results * HOLTER MONITOR - IN CLINIC POULTRY FARM MANAGER (07/08/2025 5:15 AM CDT) Min Heart Rate [...] Duration 0 duration INFOBION IC MOME AF [place] 0 percent INFOBIONIC MOME Symptom Count 13 [...] these events, one PAC was seen singly. [employer] Exchange Administrator: FELTON Ha Procedure Note Alcides Eng M.D., [...] these events, one PAC was seen singly. [employer] Exchange Administrator: FELTON Ha Hang Arrington M.D. CV CARDIAC SERVICES PROCEDUR ES Final Result INFOBIONIC SIOBHAN NA documented in this encounter Visit Diagnoses Diagnosis Embolus Pulmonary (HCC) Palpitations Hyperhomocysteinemia (HCC) Anemia B12 Deficiency Anticoagulant Therapy documented in this encounter Care Teams Chief Medical Officer Relationship Specialty Start Date End Date Elsewhere, Pcp PCP - General Internal Medicine 04/12/24 documented as of this encounter
--- OUTSIDE RECORDS SUMMARY | 2025-07-06 16:30 | XMS_ITS | Encounter Summary ---
Author Organization [facility] Address [address] [place] [address] Care Team Providers Care Grid Caster Name Role Phone Elsewhere, Pcp Primary Care Provider Unavailabl e Reason for Referral * Outpatient (Routine) - Authorized Specialty Diagnoses / Procedures Referred By Contac t Referred To Contact Diagnoses Embolus Pulmonary (HCC) Anticoagulant Therapy Procedures US Upper Extremity Veins Bilateral Hang Arrington M.D. 200 [place] [address] Phone: tel: fax: [facility] Referral ID Status Reason Start Date Expiration Date V isits Requested Visits Authorized [id number] Authorized 07/10/2025 10/10/2026 1 1 Reason for Visit * Outpatient (Routine) - Closed Specialty Diagnoses / Procedures Referred By Contac t Referred To Contact Vascular Medicine Hang Arrington M.D. 200 [place] [address] Phone: tel: fax: [facility] Referral ID Status Reason Start Date Expiration Date Visits Re quested Visits Authorized [id number] Closed 06/28/2025 12/28/2026 1 1 Encounter Details Date Type Department Care Team ([facility] st Contact Info) Description 07/06/2025 4:30 PM CDT Virtual Visit Department of Vascular Medicine in [place], [place] [address] [place] [phone] Hang Arrington M.D. [address] [place] [address] Embolus Pulmonary (HCC) (Primary Dx); Anticoagulant Therapy; Deficiency Vitamin B12; Other Folate Deficiency Anemias Social History Tobacco Use Types Packs/Day Years Used Date Smoking Tobacco: Former Cigarettes 0 05/22/2014 - 10/14/2018 Passive Smoke Exposure: Current Smokeless Tobacco: Never Alcohol Use Standard Drinks/Week Comments Not Currently 3 (1 standard drink = 0.6 oz pure alcohol) Date nights maybe wednesday and wednesday [facility] Utilities Answer Date Recorded In the past 12 months has [facility] [employer], gas, oil, or water company threatened to [...] your living situation today? 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 - 07/06/2025 4:30 PM CDT CHIEF COMPLAINT Ms. El Live and I are scheduled for telephone visit, non [id number]. HISTORY OF PRESENT ILLNESS I recently discussed [...] lab. Hang Arrington M.D. Vascular Medicine Pager: [phone] [1] Current Outpatient Medications Medication Sig Dispense [...] 2:30 PM CDT Appointment Department of Radiology, [facility] in [place], [place] [address] [place] [address] Hang Arrington M.D. [address] [place] [phone] Discharge Disposition: Home or Self Care 08/03/2025 3:30 PM CDT Appointment Department of Radiology, [facility], in [place], [place] [address] [place] [address] Hang Arrington M.D. [address] [place] [phone] 08/20/2025 10:00 AM [employer]AM [employer] T[employer] Telemedicine Department of Vascular Medicine in [place], [place] [address] [place] [address] Hang Arrington M.D. [address] [place] [address] Scheduled Orders Name Type Priority Associated Diagnoses [...] M.D. LAB BLOOD [place] [address], [facility] 200 [place] [address] * (ABNORMAL) Vitamin B12 Assay (07/19/2025 9:36 [...] ADD-ON Final Resul t Performing Organization Address City/[facility]/ZIP Co de Phone Number [facility] [address] [place] [address], [facility] 200 [place] [address] * Heparin Anti-Xa Assay (07/19/2025 9:36 AM [...] ADD-ON Final R esult Performing Organization Address City/[facility]/ZIP Co de Phone Number [facility] [address] [place] [address], [facility] [address] [place] [address] documented in this encounter Visit Diagnoses Diagnosis Embolus Pulmonary (HCC)- Primary Anticoagulant Therapy Deficiency Vitamin B12 Other Folate Deficiency Anemias documented in this encounter Care Teams Grid Caster Relationship Specialty Start Date End Date Elsewhere, Pcp PCP - General Internal Medicine 04/12/24 documented as of this encounter
--- OUTSIDE RECORDS SUMMARY | 2025-07-19 09:00 | XMS_ITS | Encounter Summary ---
Author Organization [facility] Address [address] [place] [address] Care Team Providers Care Bellows Assembler Name Role Phone Elsewhere, Pcp Primary Care Provider Unavailabl e Encounter Details Date Type Department Care Team (Latest Contact Info) Description 07/19/2025 9:00 AM CDT - 07/19/2025 11:59 PM CDT Hospital Encounter Department of Laboratory Medicine and Pathology, [facility] in [place], [place] [address] [place] [address] Hang Arrington M.D. [address] [place] [phone] Embolus Pulmonary (HCC); Anticoagulant Therapy; Deficiency Vitamin [...] alcohol) Date nights maybe wednesday and wednesday [facility] Utilities Answer Date Recorded In the past [...] your living situation today? 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 [address] [place] [phone] Discharge Disposition: Home or Self Care 08/03/2025 3:30 PM CDT Appointment Department of Radiology, [facility], in [place], [place] [address] [place] [address] Hang Arrington M.D. [address] [place] [phone] 08/20/2025 10:00 AM [facility] Telemedicine Department of Vascular Medicine in [place], [place] [address] [place] [address] Hang Arrington M.D. [address] [place] [address] documented as of this encounter Procedures Procedure [...] M.D. LAB BLOOD ADD-ON Final Resul t [facility] 200 [place] [address], [facility] 200 [place] [address] * (ABNORMAL) Vitamin B12 Assay (07/19/2025 9:36 [...] ADD-ON Final Resul t Performing Organization Address City/[facility]/ZIP Co de Phone Number [facility] 200 [place], [place] [address] [place] [address] * Heparin Anti-Xa Assay (07/19/2025 9:36 AM [...] LAB BLOOD NON ADD-ON Final R esult [facility] [address] [place] [address], [address] [address] documented in this encounter Visit Diagnoses Diagnosis Embolus Pulmonary (HCC) Anticoagulant Therapy Deficiency Vitamin B12 Other Folate Deficiency Anemias documented in this encounter Care Teams Bellows Assembler Relationship Specialty Start Date End Date Elsewhere, Pcp PCP - General Internal Medicine 04/12/24 documented as of this encounter
--- OUTSIDE RECORDS SUMMARY | 2025-07-19 11:00 | XMS_ITS | Encounter Summary ---
Author Organization [facility] Address [address] [place] [id number] Care Team Providers Care Monitor And Storage Bin Tender Name Role Phone Elsewhere, Pcp Primary Care Provider Unavailabl e Reason for Referral * Outpatient (Routine) - Authorized Specialty Diagnoses / Procedures Referred By Contac t Referred To Contact Vascular Medicine Hang Arrington M.D. [address] [place] [phone] Phone: tel: fax: [facility] Referral ID Status Reason Start Date Expiration Date V isits Requested Visits Authorized [id number] Authorized 07/19/2025 01/18/2027 1 1 * Outpatient (Routine) - Authorized Specialty Diagnoses / Procedures Referred By Contac t Referred To Contact Diagnoses Pain Chest Procedures US Lower Extremity Veins Bilateral Hang Arrington M.D. 200 [place] [address] Phone: tel: fax: [facility] Referral ID Status Reason Start Date Expiration Date V isits Requested Visits Authorized [id number] Authorized 07/19/2025 10/19/2026 1 1 * Outpatient (Routine) - Authorized Specialty Diagnoses / Procedures Referred By Contac t Referred To Contact Diagnoses Pain Chest Procedures NM Lung Ventilation and Perfusion Hang Arrington M.D. [address] [place] [phone] Phone: tel: fax: [facility] Referral ID Status Reason Start Date Expiration Date V isits Requested Visits Authorized [id number] Authorized 07/19/2025 10/19/2026 8 8 * Outpatient (Routine) - Closed Specialty Diagnoses / Procedures Referred By Contac t Referred To Contact Diagnoses Pain Chest Procedures ECG 12 Lead MA EKG 12 LEAD W I&R Hang Arrington M.D. [address] [place] [phone] Phone: tel: fax: [facility] Referral ID Status Reason Start Date Expiration Date Visits Re quested Visits Authorized [id number] Closed 07/19/2025 10/19/2026 1 1 * Outpatient (Routine) - Authorized Specialty Diagnoses / Procedures Referred By Contact Referred To Contact Cardiovascular Diseases / Cardiovascular Disease Diagnoses Pain Chest Hang Arrington M.D. [address] [place] [phone] Phone: tel: fax: [facility] Referral ID Status Reason Start Date Expiration Date V isits Requested Visits Authorized [id number] Authorized 07/19/2025 01/18/2027 1 1 Reason for Visit * Outpatient (Routine) - Closed Specialty Diagnoses / Procedures Referred By Contac t Referred To Contact Vascular Medicine Hang Arrington M.D. [address] [place] [phone] Phone: tel: fax: [facility] Referral ID Status Reason Start Date Expiration Date Visits Re quested Visits Authorized [id number] Closed 07/17/2025 01/16/2027 1 1 Encounter Details Date Type Department Care Team (Late st Contact Info) Description 07/19/2025 11:00 AM CDT Office Visit Department of Vascular Medicine in [place], [place] [address] [place] [address] Hang Arrington M.D. 200 [place] [address] Pain Chest (Primary Dx); Dyspnea On Exertion; Embolus Pulmonary (HCC); Anticoagulant Therapy; Folate Deficiency Anemia Unspecified; Deficiency Vitamin B12 Social History Tobacco Use Types Packs/Day Years Used Date Smoking Tobacco: Former Cigarettes 0 05/22/2014 - 10/14/2018 Passive Smoke Exposure: Current Smokeless Tobacco: Never Alcohol Use Standard Drinks/Week Comments Not Currently 3 (1 standard drink = 0.6 oz pure alcohol) Date nights maybe wednesday and wednesday [facility] [employer] Answer Date Recorded In the past [address] [facility] [employer], gas, oil, or water [employer] threatened to shut off services in your [...] your living situation today? 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 - 07/19/2025 11:00 AM CDT CHIEF COMPLAINT Ms. El Live presents to clinic for evaluation of the issues below. HISTORY OF PRESENT ILLNESS I am continuing to monitor Ms. El Live on boosted dosing of low-molecular weight heparin fortreatment of recent pulmonary embolus (recurrent despite therapeutic Lovenox 1 milligram/kilogram twice daily). She continues to be bothered by frequent retrosternal chest pain which radiates towards the right side as well as dyspnea on exertion with relatively low levels of activity (1 flight of stairs). She also notes a ???band like?? feeling across the lower rib margin bilaterally that wraps around to the back when she takes a deep breath; the right-sided and central chest pain is made worse by lying down. Since I last visited with her recently she returned to local ER because of concern about recurrent pulmonary embolus but CTA has shown reducing clot burden and no new PE or signs of right heart strain. She also went to local care emergently be cause of a syncopal episode. She was sitting with a friend for awhile and then got up and after standing had visual blurring and then fell out or passed out for a couple of minutes. There was no antecedent chest pain or palpitation that occurred. Of note I recently had her wearing a rhythm monitor because of reported palpitations and this did not show anyatrial fibrillation, bradycardia, or a tachyarrhythmia. This morning she took Lovenox about 4-5 a.m. and about 930 today her heparin level was 0.62. We have labs pending from recheck of B12 and folate. MEDICATIONS Current Medications[1] ALLERGIES Allergies[2] EXAMINATION Vital signs weight 120.6 kg, pulse 83 regular, blood pressure left arm seated 93/70 mm Hg General: In no respiratory distress at rest when she was seated on the exam table Heart: Regular rhythm, not tachycardic when I examined her, no cardiac murmurs Lungs: Clear bilaterally with no wheezing Extremities: No upper or lower extremity pitting edema Vessels: Carotid, brachial, radial, pedal pulses all 4/4 with no carotid bruits ASSESSMENT AND PLAN #1 Pain Chest #2 Dyspnea On Exertion #3 Embolus Pulmonary (HCC) #4 Anticoagulant Therapy #5 Folate Deficiency Anemia Unspecified #6 Deficiency Vitamin B12 She is not supratherapeutic on the elevated dose of Lovenox and the level is at an acceptable treatment range; moreover, repeat CTA chest recently has not shown repeat recurrent PE since the increased dose. Given her previous pulmonary embolus episodes and ongoing symptom of chest pain and dyspnea I wonder if she may be developing a post PE syndrome. Along those lines I have recommended a V/Q scan to look for significant unmatched perfusion defectsthat might signify chronic PE. Absent that is sort of evidence I think it would be helpful to have Cardiology see her to evaluate her dyspnea and chest pain. Perhaps it would be useful to do cardiopulmonary exercise testing? I will not adjust her medication management today but I will follow-up with her in person to go over results and follow-up on her B12 and folate levels. Hang Arrington M.D. Vascular Medicine Pager: [phone] [1] Current Outpatient Medications Medication Sig Dispense Refill acetaminophen (TylenoL) 500 mg tablet Take 2 tablets (1,000 mg total) by mouth every 6 (six) hours. calcium carbonate 1,250 mg (500 mg calcium) [...] tablet Take 1 tablet by mouth daily. folic acid 1 mg tablet Take 2 tablets (2 mg total) by mouth daily. 60 tablet 0 No current facility-administered medications for this visit. [2] Allergies Allergen Reactions Azithromycin Rash, Hives (Reselect Reaction) and Swelling Tramadol Rash Sulfa (Sulfonamide Antibiotics) Rash Not sure of reaction but was in the hospital because of it. Nsaids (Non-Steroidal Anti-Inflammatory Drug) Other (see comments) Patient had bariatric surgery and should not ever have NSAIDs due to high risk for gastric ulcers. Penicillins Rash PENICILLINS documented in this encounter Plan of Treatment Upcoming Encounters Date Type Department Care Team (Late st Contact Info) Description 08/03/2025 2:30 PM CDT Appointment Department of Radiology, [facility] in [place], [place] [address] [place] [address] Hang Arrington M.D. [address] [place] [phone] Discharge Disposition: Home or Self Care 08/03/2025 3:30 PM CDT Appointment Department of Radiology, [facility], in [place], [place] [address] [place] [address] Hang Arrington M.D. [address] [place] [phone] 08/20/2025 10:00 AM [facility] Telemedicine Department of Vascular Medicine in [place], [place] [address] [place] [address] Hang Arrington M.D. [address] [place] [address] Scheduled Orders Name Type Priority Associated Diagnoses Orde r Schedule US Lower Extremity Veins Bilateral Imaging Pain Chest Expected: 07/19/2025, Expires: 10/19/2026 Scheduled Referrals Name Type Priority Associated Diagnoses Order Schedule Cardiovascular Disease - General cardiology consult (clinic) Outpatient Referral Routine Pain Chest Expected: 07/19/2025, Expires: 10/19/2026 Vascular Medicine office visit (clinic) Outpatient Referral Routine Expect ed: 07/19/2025, Expires: 10/19/2026 documented as of this encounter Results * NM Lung Ventilation and Perfusion (07/20/2025 2:32 PM CDT) Anatomical Region Laterality Modality Chest, Nuclear Medicine RST LOS, Nuclear Medicine ARZ LOS, Nuclear Medicine FLA LOS, Nuclear Medicine N/A Nuclea r Medicine Impressions 07/20/2025 3:14 PM CDT 1. No scintigraphic evidence of thromboembolic disease. 2. Scintigraphic evidence of diffuse hepatic steatosis. Narrative 07/20/2025 3:14 PM CDT EXAM: NM LUNG VENTILATION AND PERFUSION RADIOPHARMACEUTICAL/MEDS: Route: inhalation xenon Xe 133 gas (Xe-133 Xenon),18.6 millicurie Route: intravenous technetium Tc 99m albumin aggregated injection (Tc-99m MAA) , 6.45 millicurie TECHNIQUE: Multiple projection planar lung ventilation and perfusion images obtained beginning immediately following radiotracer inhalation and 5 minutes following IV radiotracer injection respectively. COMPARISON: CT chest without IV contrast 07/06/2025 INDICATION: Assessment for pulmonary embolism in the the setting of known multifocal chronic pulmonary emboli FINDINGS: No mismatched perfusion defects to suggest thromboembolic disease. Specifically, the scattered chronic pulmonary emboli noted on the chest CT dated 07/06/2025 do not demonstrate a definite scintigraphic correlate. Normal symmetric ventilation of both lungs without significant air trapping on washout imaging. Hepatic Xe 133 uptake on ventilatory washout images, likely representing steatosis. Procedure Note Skip De Guzman M.D. - 07/20/2025 EXAM: NM LUNG VENTILATION AND PERFUSION RADIOPHARMACEUTICAL/MEDS: Route: inhalation xenon Xe 133 gas (Xe-133 Xenon),18.6 millicurie Route: intravenous technetium Tc 99m albumin aggregated injection (Tc-99m MAA) , 6.45millicurie TECHNIQUE: Multiple projection planar lung ventilation and perfusionimages obtained beginning immediately following radiotracer inhalation and5 minutes following IV radiotracer injection respectively. COMPARISON: CT chest without IV contrast 07/06/2025 INDICATION: Assessment for pulmonary embolism in the the setting of knownmultifocal chronic pulmonary emboli FINDINGS: No mismatched perfusion defects to suggest thromboembolicdisease. Specifically, the scattered chronic pulmonary emboli noted on the chest CT dated 07/06/2025do not demonstrate a definite scintigraphic correlate. Normal symmetric ventilation of both lungs without significant airtrapping on washout imaging. Hepatic Xe 133 uptake on ventilatory washoutimages, likely representing steatosis. IMPRESSION: 1. No scintigraphic evidence of thromboembolic disease. 2. Scintigraphic evidence of diffuse hepatic steatosis. Hang Arrington M.D. [facility] PROCEDURES Final Resu lt * ECG 12 Lead (07/20/2025 1:31 PM CDT) Ventricular Rate ECG/Min 63 BPM MUSE MA Interval 146 ms MUSE QRSD Interval 84 ms MUSE QT Interval 452 ms MUSE QTC Interval 463 ms MUSE P [place] 46 degrees MUSE R [place] 63 degrees MUSE T Wave [place] 14 degrees MUSE 07/20/2025 1:31 PM CDT 07/20/2025 1:40 PM CDT Impressions MUSE - 07/20/2025 1:40 PM CDT Normal sinus rhythm T wave abnormality, consider anterior ischemia When compared with ECG of 01-Jul-2024 12:11, No significant change was found Reviewed by FELTON Meeks Narrative Procedure Note Alcides Eng M.D., Ph.D. - 07/20/2025 IMPRESSION: Normal sinus rhythm T wave abnormality, consider anterior ischemia When compared with ECG of 01-Jul-2024 12:11, No significant change was found Reviewed by FELTON Meeks us Hang Arrington M.D. ECG ORDERABLES Final Result MUSE NA documented in this encounter Visit Diagnoses Diagnosis Pain Chest- Primary Dyspnea On Exertion Embolus Pulmonary (HCC) Anticoagulant Therapy Folate Deficiency Anemia Unspecified Deficiency Vitamin B12 Pain Chest documented in this encounter Care Teams Monitor And Storage Bin Tender Relationship Specialty Start Date End Date Elsewhere, Pcp PCP - General Internal Medicine 04/12/24 documented as of this encounter
--- OUTSIDE RECORDS SUMMARY | 2025-07-20 13:47 | XMS_ITS | Encounter Summary ---
Author Organization [facility] Address [address] [place] [address] Care Team Providers Care Leveler Helper Name Role Phone Elsewhere, Pcp Primary Care Provider Unavailabl e Reason for Referral * Outpatient (Routine) - Authorized Specialty Diagnoses / Procedures Referred By Contac t Referred To Contact Diagnoses Pain Chest Procedures NM Lung Ventilation and Perfusion Hang Arrington M.D. [address] [place] [phone] Phone: tel: fax: [facility] Referral ID Status Reason Start Date Expiration Date V isits Requested Visits Authorized [id number] Authorized 07/19/2025 10/19/2026 8 8 Reason for Visit * Outpatient (Routine) - Authorized Specialty Diagnoses / Procedures Referred By Contac t Referred To Contact Diagnoses Pain Chest Procedures NM Lung Ventilation and Perfusion Hang Arrington M.D. 200 [place] [address] Phone: tel: fax: [facility] Referral ID Status Reason Start Date Expiration Date V isits Requested Visits Authorized [id number] Authorized 07/19/2025 10/19/2026 8 8 Encounter Details Date Type Department Care Team (Latest Contact Info) Description 07/20/2025 1:47 PM CDT - 07/20/2025 11:59 PM CDT Hospital Encounter Department of Radiology, [facility], in [place], [place] [address] [place] [address] Hang Arrington M.D. 200 [place] [address] Pain Chest Discharge Disposition: Home or Self Care Social History Tobacco Use Types Packs/Day Years Used Date Smoking Tobacco: Former Cigarettes 0 05/22/2014 - 10/14/2018 Passive Smoke Exposure: Current Smokeless Tobacco: Never Alcohol Use Standard Drinks/Week Comments Not Currently 3 (1 standard drink = 0.6 oz pure alcohol) Date nights maybe wednesday and wednesday [facility] Utilities Answer Date Recorded In the [...] your living situation today? 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 200 [place] [address] Discharge Disposition: Home or Self Care 08/03/2025 3:30 PM CDT Appointment Department of Radiology, [place], [place] [address] [place] [address] Hang Arrington M.D. [address] [place] [address] 08/20/2025 10:00 AM PAWN BROKER Telemedicine Department of Vascular Medicine in [place], [place] [address] [place] [address] Hang Arrington M.D. [address] [place] [address] documented as of this encounter Procedures Procedure [...] of diffuse hepatic steatosis. Hang Arrington M.D. [facility] PROCEDURES Final Resu lt documented in [...] millicuries documented in this encounter Care Teams Leveler Helper Relationship Specialty Start Date End Date Elsewhere, Pcp PCP - General Internal Medicine 04/12/24 documented as of this encounter
--- OUTSIDE RECORDS SUMMARY | 2025-07-31 18:37 | XMS_ITS | Encounter Summary ---
Author Organization [facility] Address [address] [place] [address] Care Team Providers Care Plate Shop Helper Name Role Phone Elsewhere, Pcp Primary Care Provider Unavailabl e Reason for Referral * Outpatient (Routine) - Closed Specialty Diagnoses / Procedures Referred By Contac t Referred To Contact Vascular Medicine Hang Arrington M.D. [address] [place] [phone] Phone: tel: fax: [facility] Referral ID Status Reason Start Date Expiration Date Visits Re quested Visits Authorized [id number] Closed 07/17/2025 01/16/2027 1 1 Scheduling Instructions Request 11:00 a.m. appointment on 07/19/2025 Encounter Details Date Type Department Care Team (Late st Contact Info) Description 07/17/2025 Orders Only Department of Vascular Medicine in [place], [place] [address] [place] [phone] Hang Arrington M.D. [address] [place] [phone] Social History Tobacco Use Types Packs/Day Years Used Date Smoking Tobacco: Former Cigarettes 0 05/22/2014 - 10/14/2018 Passive Smoke Exposure: Current Smokeless Tobacco: Never Alcohol Use Standard Drinks/Week Comments Not Currently 3 (1 standard drink = 0.6 oz pure alcohol) Date nights maybe wednesday and wednesday [facility] Utilities Answer Date Recorded In the past [...] your living situation today? 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, in [place], [place] [address] [place] [address] Hang Arrington M.D. [address] [place] [address] Discharge Disposition: Home or Self Care 08/03/2025 3:30 PM CDT Appointment Department of Radiology, [facility], in [place], [place] [address] [place] [address] Hang Arrington M.D. [address] [place] [phone] 08/20/2025 10:00 AM MANAGER WIRELESS Telemedicine Department of Vascular Medicine in [place], [place] [address] [place] [address] Hang Arrington M.D. [address] [place] [address] Scheduled Referrals Name Type Priority Associated Diagnoses Orde r Schedule Vascular Medicine office visit (clinic) Outpatient Referral Routine Expected: 07/19/2025, Expires: 10/16/2026 documented as of this encounter Visit Diagnoses Not on filedocumented in this encounter Care Teams Plate Shop Helper Relationship Specialty Start Date End Date Elsewhere, Pcp PCP - General Internal Medicine 04/12/24 documented as of this encounter
--- OUTSIDE RECORDS SUMMARY | 2025-07-31 18:37 | XMS_ITS | Encounter Summary ---
Author Organization [facility] Address [address] [place] [address] Care Team Providers Care Oven Heater Name Role Phone Elsewhere, Pcp Primary Care Provider Unavailabl e Encounter Details Date Type Department Care Team (Latest Contact Info) Description 07/19/2025 Clinical Communication Department of Cardiovascular Medicine in [place], [place] [address] [place] [address] Bridge Saw OperatorCurtis M.D. 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 Date: 06/22/2025 Date/timeframe records needed by: -Prior to CV appt Notification of records received: -No notification needed (provider will review at time of appt) * Telephone Encounter - Emily Maravilla - 07/19/2025 11:25 AM CDT Vas # [id number] documented in this encounter Plan of Treatment Upcoming Encounters Date Type Department Care Team (Late st Contact Info) Description 08/03/2025 2:30 PM CDT Appointment Department of Radiology, [facility], in [place], [place] [address] [place] [address] Hang Arrington M.D. [address] [place] [address] Discharge Disposition: Home or Self Care 08/03/2025 3:30 PM CDT Appointment Department of Radiology, [facility], in [place], [place] [address] [place] [address] Hang Arrington M.D. [address] [place] [phone] 08/20/2025 10:00 AM FEEDER SWITCHBOARD OPERATOR Telemedicine Department of Vascular Medicine in [place], [place] [address] [place] [address] Hang Arrington M.D. [address] [place] [phone] documented as of this encounter Visit Diagnoses Not on filedocumented in this encounter Care Teams Oven Heater Relationship Specialty Start Date End Date Elsewhere, Pcp PCP - General Internal Medicine 04/12/24 documented as of this encounter
--- OUTSIDE RECORDS SUMMARY | 2025-07-31 18:37 | XMS_ITS | Encounter Summary ---
Author Organization [facility] Address [address] [facility] [place] [address] Care Team Providers Care Windows Systems Engineer Name Role Phone Sarah Juares MD Primary Care Provider Purvi Jeong [facility] Unavailable [phone] Lucas Nuno MD Unavailable [phone] Meghan Cox [facility] Unavailable [phone] Encounter Details Date Type Department Care Team (Late st Contact Info) Description 03/19/2025 MyC Medical Advice [facility] [place] [address] [facility] [address] [place] [address] Lucas Nuno MD [address] [facility] [address] [place] [address] Social History Tobacco Use Types Packs/Day Years Used Date Smoking Tobacco: Former Smokeless Tobacco: Never Alcohol Use Standard Drinks/Week Comments Not Currently 0 (1 standard drink = 0.6 oz pur e alcohol) rare PHQ-2 Answer Date Recorded PHQ-2 Score 0 02/22/2025 Reform Depression Scale Answer Date Recorded Reform Depression Score 1 07/06/2021 Last EPDS Self [...] AM CDT 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 GEOLOGICAL SPECIALIST Gender Identity Female 06/03/2022 7:36 AM CDT Sexual Orientation Straight 06/03/2022 7: 36 AM CDT documented as of this encounter Plan of Treatment Not on file documented as of this encounter Visit Diagnoses Not on filedocumented in this encounter Care Teams Windows Systems Engineer Relationship Specialty [place] [phone] [place] [address] PCP - General Family Medicine 03/13/25 Purvi Jeong Melody [address] [place] [address] [phone] Pharmacist Pharmacist Etcher Photoengraving 01/03/25 Lucas Nuno MD [address] [place] [address] [phone] Assigned Surgical Provider 02/07/25 Meghan Cox RPH [address] [place] [address] [phone] Pharmacist Pharmacist [employer]cher [employer] 03/20/25 documented as of this encounter
--- OUTSIDE RECORDS SUMMARY | 2025-07-31 18:37 | XMS_ITS | Encounter Summary ---
Author Organization [place] Address [address] [facility] [place] [address] Care Team Providers Care Marine Welder Name Role Phone Sarah Juares MD Primary Care Provider Purvi Jeong [facility] Unavailable [phone] Lucas Nuno MD Unavailable [phone] Meghan Cox [facility] Unavailable [phone] Encounter Details Date Type Department Care Team (Late st Contact Info) Description 03/14/2025 MyC Medical Advice [facility] [place] [address] [facility] [address] 4th [place] [address] Lucas Nuno MD [address] [facility] [address] [facility] [address] [place] [address] Social History Tobacco Use Types Packs/Day Years Used Date Smoking Tobacco: Former Smokeless Tobacco: Never Alcohol Use Standard Drinks/Week Comments Not Currently 0 (1 standard drink = 0.6 oz pur e alcohol) rare PHQ-2 Answer Date Recorded PHQ-2 Score 0 02/22/2025 [place] Depression Scale Answer Date Recorded [place] Depression Score 1 07/06/2021 Last EPDS Self [...] AM CDT 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 MACHINE SETTER Gender Identity Female 06/03/2022 7:36 AM CDT Sexual Orientation Straight 06/03/2022 7: 36 AM CDT documented as of this encounter Plan of Treatment Not on file documented as of this encounter Visit Diagnoses Not on filedocumented in this encounter Care Teams Marine Welder Relationship Specialty [place] [address] [place] [address] PCP - General Family Medicine 03/13/25 Purvi Jeong [facility] [address] [place] [address] [phone] Pharmacist Pharmacist Pneumatic Drum Sander 01/03/25 Lucas Nuno MD [address] [place] [address] [phone] Assigned Surgical Provider 02/07/25 Meghan Cox [facility] [address] [place] [address] [phone] Pharmacist Pharmacist Pneumatic Drum Sander 03/20/25 documented as of this encounter
--- OUTSIDE RECORDS SUMMARY | 2025-07-31 18:37 | XMS_ITS | Patient Health Record ---
Author Organization [facility] Address [address] [place] [address] Care Team Providers Care Trust Vault Custodian Name Role Phone None, None Primary Care Provider PAUL Carvajal [phone] Reason For Referral No Information Medications Medication [...] Coverage End Date BLUE CROSS OUT [facility] [address] [address] [place], [place] [id number] Karo Gallegos Self - patient is the insured Medical (General) History Surgical History Surgery Date(Month/Year) Gastric sleeve 10/13/2016
--- OUTSIDE RECORDS SUMMARY | 2025-07-31 18:37 | XMS_ITS | Clinical Summary ---
Author Organization [facility] Address [address] [place] [address] Care Team Providers Care Media Production Operator Name Role Phone Elsewhere, Pcp Primary Care Provider Unavailabl e Source Comments Patient records contain information from all sites at [facility]. For routine questions regarding patient records, call [phone] during business hours, M-F 8:00 AM - 5:00 PM Central Time. Record requests for emergency care only can be directed to [phone] at any time.[facility] Allergies Active Allergy Reactions Criticality Noted Date [...] Encounters Date Type Department Care Team Description 07/31/2025 Results Follow-Up Department of Vascular Medicine in [place], [place] [address] [place] [address] Hang Arrington M.D. [place] Lung Ventilation and Perfusion 07/20/2025 1:47 PM CDT - 07/20/2025 11:59 PM CDT Hospital Encounter Department of Radiology, [facility] in [place], [place] [address] [place] [phone] Hang Arrington M.D. Pain Chest Discharge Disposition: Home or Self Care 07/19/2025 11:00 AM CDT Office Visit Department of Vascular Medicine in [place], [place] [address] [place] [phone] Hang Arrington M.D. Pain Chest (Primary Dx); Dyspnea On Exertion; Embolus Pulmonary (HCC); Anticoagulant Therapy; Folate Deficiency Anemia Unspecified; Deficiency Vitamin B12 07/19/2025 9:00 AM CDT - 07/19/2025 11:59 PM CDT Hospital Encounter Department of Laboratory Medicine and Pathology, [facility] in [place], [place] [address] [place] [phone] Hang Arrington M.D. Embolus Pulmonary (HCC); Anticoagulant Therapy; Deficiency Vitamin B12; Other Folate Deficiency Anemias Discharge Disposition: Home or Self Care 07/19/2025 Clinical Communication Department of Cardiovascular Medicine in [place], [place] [address] [place] [phone] Assembler Production Line Curtis M.D. 07/17/2025 Orders Only Department of Vascular Medicine in [place], [place] [address] [place] [phone] Hang Arrington M.D. 07/06/2025 4:30 PM CDT Virtual Visit Department of Vascular Medicine in [place], [place] [address] [place] [phone] Hang Arrington M.D. Embolus Pulmonary (HCC) (Primary Dx); Anticoagulant Therapy; Deficiency Vitamin B12; Other Folate Deficiency Anemias 07/06/2025 10:40 AM CDT - 07/06/2025 11:59 PM CDT Hospital Encounter Department of Cardiovascular Diseases in [place], [place] [address] [place] [phone] Hang Arrington M.D. Embolus Pulmonary (HCC); Palpitations; Hyperhomocysteinem ia (HCC); Anemia B12 Deficiency; Anticoagulant Therapy Discharge Disposition: Home or Self Care 07/06/2025 10:10 AM CDT - 07/06/2025 10:39 AM CDT Hospital Encounter Department of Laboratory Medicine and Pathology, [facility] in [place], [place] [address] [place] [phone] Hang Arrington M.D. Embolus Pulmonary (HCC); Palpitations; Hyperhomocysteinem ia (HCC); Anemia B12 Deficiency; Anticoagulant Therapy Discharge Disposition: Home or Self Care 07/06/2025 8:30 AM CDT - 07/06/2025 9:44 AM CDT Hospital Encounter Department of Radiology, [facility] in [place], [place] [address] [place] [phone] Hang Arrington M.D. Embolus Pulmonary (HCC) Discharge Disposition: Home or Self Care 07/02/2025 Clinical Communication Department of Vascular Medicine in [place], [place] [address] [place] [phone] Hang Arrington M.D. Phone Contact 06/29/2025 Orders Only Department of Vascular Medicine in [address] [phone] Hang Arrington M.D. Embolus Pulmonary (HCC) (Primary Dx) 06/28/2025 2:00 PM CDT Telemedicine Department of Vascular Medicine in [place], [place] [address] [place] [phone] Hang Arrington M.D. Embolus Pulmonary (HCC) (Primary Dx); Palpitations; Hyperhomocysteinem ia (HCC); Anemia B12 Deficiency; Anticoagulant Therapy 06/27/2025 Orders Only Department of Vascular Medicine in [place], [place] [address] [place] [phone] Hang Arrington M.D. 06/24/2025 Documentation Department of Vascular Medicine in [address] [phone] Hang Arrington M.D. from Last 3 Months Social History Tobacco Use Types Packs/Day Years Used Date Smoking Tobacco: Former Cigarettes 0 05/22/2014 - 10/14/2018 Passive Smoke Exposure: Current Smokeless Tobacco: Never Alcohol Use Standard Drinks/Week Comments Not Currently 3 (1 standard drink = 0.6 oz pure alcohol) Date nights maybe wednesday and wednesday [facility] Utilities Answer Date Recorded In the past 12 months has e [employer], gas, oil, or water company threatened to [...] your living situation today? I have a [facility] place to live 07/03/2024 Comments Unknown Sex and Gender Information Value Date Recorded Sex Assigned at Not on file Legal Sex Female 6:06 PM CABINET FINISHER Gender Identity Not on file Sexual Orientation [...] 2:30 PM CDT Appointment Department of Radiology, [facility], in [place], [place] [address] [place] [phone] Hang Arrington M.D. [address] [place] [phone] Discharge Disposition: Home or Self Care 08/03/2025 3:30 PM CDT Appointment Department of Radiology, [facility], in [place], [place] [address] [place] [phone] Hang Arrington M.D. [address] [place] [phone] 08/20/2025 10:00 AM CABINET FINISHER Telemedicine Department of Vascular Medicine in [place], [place] [address] [place] [phone] Hang Arrington M.D. [address] [place] [phone] Health Maintenance Due Date Last Done Comments [...] Anticoagulant Therapy HOLTER MONITOR - IN CLINIC CHUTE FEEDER Routine 07/08/2025 5:15 AM CDT Embolus Pulmonary [...] CDT) Ventricular Rate ECG/Min 63 BPM MUSE ME Interval 146 ms MUSE QRSD Interval 84 ms MUSE QT Interval 452 ms MUSE QTC Interval 463 ms MUSE P [place] 46 degrees MUSE R [place] 63 degrees MUSE T Wave [place] 14 degrees MUSE 07/20/2025 1:31 PM CDT [...] was found Reviewed by FELTON Meeks Hang R Arrington M.D. ECG ORDERABLES Final Result Performing Organization Address [facility] de Phone Number MUSE NA * Heparin Anti-Xa Assay (07/19/2025 9:36 AM CDT) Only the most recent of2 resultswithin the time period is included. Pathologist [facility] Heparin Anti-Xa, P 0.62 IU/mL 2024 10:38 [...] ADD-ON Final R esult Performing Organization Address [facility] de Phone Number [facility] 200 [place] [address], [place] DTL [facility] 200 [place] [address] * (ABNORMAL) Folate (07/19/2025 9:36 AM CDT) [facility] Folate, S 3.6(L) >=4.0 mcg/L 07/19/2025 11:14 AM CDT DTL Comment:Result suggests tina te deficiency Blood (Blood, Venous) 07/19/2025 9:36 AM CDT 07/19/2025 10:00 AM CDT Hang Arrington M.D. LAB BLOOD ADD-ON Final Resul t Performing Organization Address City/[facility] Co de Phone Number [facility] [address] 200 [place] [address] * (ABNORMAL) Vitamin B12 Assay (07/19/2025 9:36 [...] M.D. LAB BLOOD ADD-ON Final Resul t [facility] 200 [place] [address] * HOLTER MONITOR - IN CLINIC CHUTE FEEDER (07/08/2025 5:15 AM CDT) Min Heart Rate [...] Duration 0 duration INFOBION IC MOME AF [place] 0 percent INFOBIONIC MOME Symptom Count 13 [...] these events, one PAC was seen singly. School Nurse: FELTON Ha Procedure Note Alcides Eng M.D., [...] these events, one PAC was seen singly. School Nurse: FELTON Ha Hang Arrington M.D. CV CARDIAC SERVICES PROCEDUR ES Final Result INFOBIONIC MOME NA * CT Chest Angiogram and Pulmonary [...] with Dr. Hang Arrington, pager [phone] or [phone] by Xochitl Amanda APRN at 10:03 am [...] Findings discussed with Dr. Hang Arrington, pager [phone] or [phone] Max Amanda APRN at 10:03 am on 07/06/2025. Hang Arrington M.D. IMG CT PROCEDURES Final Resu lt * ECHO TTE COMPLETE WO CONTRAST-Outside US Card (06/22/2025 12:00 AM CDT) 06/22/2025 11:4 3 AM CDT Addenda Addendum by [employer], Outside on 06/22/2025 11:43 AM CDT BELOW REPORT RECEIVED BY [facility] ON 07/25/2025 07:39:26 [id number] ECHOCARDIOGRAM KARO WATSON : 1995 30 years Study Date: 06/22/2025 7:36:23 AM Gender: F BP: 90/47 mmHg Height: 175.00 cm BSA: 2.35 m?? Weight: 123.00 kg Tech: NITHINM Referring MD: BRIAN SENA Site: [facility] Reading Location: [facility] Patient Location: Inpatient. Procedure: 2D, Color Doppler, [...] . This study was interpreted by an [facility] accredited facility. Final READ BY Hesham Hough RELEASED BY HOUGH Addendum by [employer], Outside on 06/22/2025 11:43 AM CDT BELOW REPORT RECEIVED BY [facility] ON 07/25/2025 07:38:47 [id number] ECHOCARDIOGRAM KARO ALEMANSaulBRENDAN : 1995 30 years Study Date: 06/22/2025 7:36:23 AM Gender: F BP: 90/47 mmHg Height: 175.00 cm BSA: 2.35 m?? Weight: 123.00 kg Tech: SIM Referring MD: BRIAN SENA Site: [facility] [place] Location: [facility] Patient Location: Inpatient. Procedure: 2D, Color Doppler, [...] . This study was interpreted by an [facility] accredited facility. Final READ BY Hesham Hough RELEASED BY ELLE Addendum by [employer], Outside on 06/22/2025 11:43 AM CDT BELOW REPORT RECEIVED BY [facility] ON 07/25/2025 07:37:28 [id number] ECHOCARDIOGRAM KARO WATSON : 1995 30 years Study Date: 06/22/2025 7:36:23 AM Gender: F BP: 90/47 mmHg Height: 175.00 cm BSA: 2.35 m?? Weight: 123.00 kg Tech: NITHIN Referring MD: BRIAN SENA Site: [facility] [place] Location: [facility] Patient Location: Inpatient. Procedure: 2D, Color Doppler, [...] . This study was interpreted by an [facility] accredited facility. Final READ BY Hesham Hough [...] required please follow defined workflow. Procedure Note [employer], Outside - 07/25/2025 This order has been created and auto-finalized to support the import ofoutside images. If available, original interpretation can be found on theMedia Tab in Chart Review, in Document Viewer, as an image in InfinityViewor as an Addendum. If a re-interpretation or overread is required please follow definedworkflow. us Provider Not In System IMG NON RAD IMAGING MAYA JASMINE Edited Result - Final IMAGING NA * Outside CT Body (06/21/2025 2:25 PM CDT) 06/21/2025 3:03 PM CDT Addenda Addendum by [employer], Outside on 06/21/2025 3:03 PM CDT BELOW REPORT RECEIVED BY [facility] ON 06/21/2025 15:23:15 [id number] For Patients: As a result of the [...] Michela Murray RELEASED BY CHU Addendum by [employer], Outside on 06/21/2025 3:03 PM CDT BELOW REPORT RECEIVED BY [facility] ON 06/21/2025 15:22:35 [id number] For Patients: As a result of the [...] Michela Murray RELEASED BY CHU Addendum by [employer], Outside on 06/21/2025 3:03 PM CDT BELOW REPORT RECEIVED BY [facility] ON 06/21/2025 15:21:34 [id number] For Patients: As a result of the [...] please follow defined workflow. Procedure Note [employer], Outside - 06/21/2025 This order has been [...] 06/21/2025 3:13 PM CDT Addenda Addendum by [employer], Outside on 06/21/2025 3:13 PM CDT BELOW REPORT RECEIVED BY [facility] ON 06/21/2025 15:17:45 [id number] For Patients: As a result of the [...] Cristin Villarreal RELEASED BY ROGER Addendum by [employer], Outside on 06/21/2025 3:13 PM CDT BELOW REPORT RECEIVED BY [facility] ON 06/21/2025 15:17:14 [id number] For Patients: As a result of the [...] Advance Directives For more information, please contact: [phone] * Full Code (Latest Code Status on File) Date Activated Date Inactivated Comments 07/01/2024 2:27 AM 07/04/2024 10:47 PM Question Answer Comments Full Code: Discussed Care Teams Media Production Operator Relationship Specialty Start Date End Date Elsewhere, Pcp PCP - General Internal Medicine 04/12/24
--- OUTSIDE RECORDS SUMMARY | 2025-07-31 18:38 | XMS_ITS | Encounter Summary ---
Author Organization [facility] Address [address] [place] [address] Care Team Providers Care Shank Cutter Name Role Phone Elsewhere, Pcp Primary Care Provider Unavailabl e Reason for Referral * Outpatient (Routine) - Closed Specialty Diagnoses / Procedures Referred By Contac t Referred To Contact Vascular Medicine Hang Arrington M.D. [address] [place] [phone] Phone: tel: fax: [facility] Referral ID Status Reason Start Date Expiration Date Visits Re quested Visits Authorized [id number] Closed 06/27/2025 12/27/2026 1 1 Scheduling Instructions 2:00 p.m. 06/28/2025 with me in thrombophilia Clinic Encounter Details Date Type Department Care Team (Late st Contact Info) Description 06/27/2025 Orders Only Department of Vascular Medicine in [place], [place] [address] [place] [phone] Hang Arrington M.D. [address] [place] [phone] Social History Tobacco Use Types Packs/Day Years Used Date Smoking Tobacco: Former Cigarettes 0 05/22/2014 - 10/14/2018 Passive Smoke Exposure: Current Smokeless Tobacco: Never Alcohol Use Standard Drinks/Week Comments Not Currently 3 (1 standard drink = 0.6 oz pure alcohol) Date nights maybe wednesday and wednesday [facility] Utilities Answer Date Recorded In [...] your living situation today? 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 [address] [place] [address] Discharge Disposition: Home or Self Care 08/03/2025 3:30 PM CDT Appointment Department of Radiology, [facility], in [place], [place] [address] [place] [address] Hang Arrington M.D. [address] [place] [phone] 08/20/2025 10:00 AM POLITICAL ANALYST Telemedicine Department of Vascular Medicine in [place], [place] [address] [place] [address] Hang Arrington M.D. [address] [place] [phone] Scheduled Referrals Name Type Priority Associated Diagnoses Orde r Schedule Vascular Medicine office visit (clinic) Outpatient Referral Routine Expected: 06/28/2025, Expires: 09/26/2026 documented as of this encounter Visit Diagnoses Not on filedocumented in this encounter Care Teams Shank Cutter Relationship Specialty Start Date End Date Elsewhere, Pcp PCP - General Internal Medicine 04/12/24 documented as of this encounter
--- OUTSIDE RECORDS SUMMARY | 2025-07-31 18:38 | XMS_ITS | Encounter Summary ---
Author Organization [facility] Address [address] [place] [address] Care Team Providers Care Electronic Commerce Specialist Name Role Phone Elsewhere, Pcp Primary Care Provider Unavailabl e Reason for Referral * MRI/CAT/PET Scan (Routine) - Closed Specialty Diagnoses / Procedures Referred By Contac t Referred To Contact Radiology Diagnoses Embolus Pulmonary (HCC) Procedures CT Chest Angiogram and Pulmonary Arteries with IV Contrast Hang Arrington M.D. 200 [place] [address] Phone: tel: fax: [facility] Referral ID Status Reason Start Date Expiration Date Visits Re quested Visits Authorized [id number] Closed 07/05/2025 10/02/2025 1 1 Encounter Details Date Type Department Care Team (Late st Contact Info) Description 06/29/2025 Orders Only Department of Vascular Medicine in [place], [place] [address] [place] [phone] Hang Arrington M.D. [address] [place] [phone] Embolus Pulmonary (HCC) (Primary Dx) Social History [...] your living situation today? 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 [address] [place] [address] Discharge Disposition: Home or Self Care 08/03/2025 3:30 PM CDT Appointment Department of Radiology, [facility], in [place], [place] [address] [place] [address] Hang Arrington M.D. [address] [place] [phone] 08/20/2025 10:00 AM PRINTER FLOOR COVERING ASSISTANT Telemedicine Department of Vascular Medicine in [place], [place] [address] [place] [address] Hang Arrington M.D. [address] [place] [phone] documented as of this encounter Results * [...] with Dr. Hang Arrington, pager [phone] or [phone] by Xochitl Amanda APRN at 10:03 am [...] with Dr. Hang Arrington, pager [phone] or [phone] Max Amanda APRN at 10:03 am on 07/06/2025. Hang Arrington M.D. IMG CT PROCEDURES Final Resu lt documented in this encounter Visit Diagnoses Diagnosis Embolus Pulmonary (HCC)- Primary Embolus Pulmonary (HCC) documented in this encounter Care Teams Electronic Commerce Specialist Relationship Specialty Start Date End Date Elsewhere, Pcp PCP - General Internal Medicine 04/12/24 documented as of this encounter
--- OUTSIDE RECORDS SUMMARY | 2025-07-31 18:38 | XMS_ITS | Encounter Summary ---
Author Organization [facility] Address [address] [place] [address] Care Team Providers Care Prep Manager Name Role Phone Elsewhere, Pcp Primary Care Provider Unavailabl e Reason for Visit * Reason Onset Date Comments Phone Contact 07/02/2025 Encounter Details Date Type Department Care Team (Late st Contact Info) Description 07/02/2025 Clinical Communication Department of Vascular Medicine in [place], [place] [address] [place] [phone] Hang Arrington M.D. [address] [place] [phone] Phone Contact Social History Tobacco Use Types Packs/Day Years Used Date Smoking Tobacco: Former Cigarettes 0 05/22/2014 - 10/14/2018 Passive Smoke Exposure: Current Smokeless Tobacco: Never Alcohol Use Standard Drinks/Week Comments Not Currently 3 (1 standard drink = 0.6 oz pure alcohol) Date nights maybe wednesday and wednesday [facility] Utilities Answer Date Recorded In the past 12 months has [employer], gas, oil, or water [employer] threatened to shut off services in [...] your living situation today? I have a [facility] place to live 07/03/2024 Comments Unknown Sex and Gender Information Value Date Recorded Sex Assigned at Not on file Legal Sex Female 6:06 PM PERIPHERAL VASCULAR TECH Gender Identity Not on file Sexual Orientation Not on file documented as of this encounter Plan of Treatment Upcoming Encounters Date Type Department Care Team (Late st Contact Info) Description 08/03/2025 2:30 PM CDT Appointment Department of Radiology, [facility], in [place], [place] 200 [place] [address] Hang Arrington M.D. [address] [place] [phone] Discharge Disposition: Home or Self Care 08/03/2025 3:30 PM CDT Appointment Department of Radiology, [facility], in [place], [place] 200 [place] [address] Hang Arrington M.D. [address] [place] [phone] 08/20/2025 10:00 AM PERIPHERAL VASCULAR TECH Telemedicine Department of Vascular Medicine in [place], [place] [address] [place] [address] Hang Arrington M.D. [address] [place] [phone] documented as of this encounter Visit Diagnoses Not on filedocumented in this encounter Care Teams Prep Manager Relationship Specialty Start Date End Date Elsewhere, Pcp PCP - General Internal Medicine 04/12/24 documented as of this encounter
--- OUTSIDE RECORDS SUMMARY | 2025-07-31 18:38 | XMS_ITS | Encounter Summary ---
Author Organization [facility] Address [address] [place] [address] Care Team Providers Care Circus Roustabout Name Role Phone Elsewhere, Pcp Primary Care Provider Unavailabl e Encounter Details Date Type Department Care Team (Late st Contact Info) Description 06/24/2025 Documentation Department of Vascular Medicine in [place], [place] [address] [place] [phone] Hang Arrington M.D. 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 - 06/24/2025 9:57 AM CDT This past I received a call from local emergency room in [place] regarding Ms. El Live She had presented [...] 2:30 PM CDT Appointment Department of Radiology, [facility] in [place], [place] [address] [place] [phone] Hang Arrington M.D. [address] [place] [phone] Discharge Disposition: Home or Self Care 08/03/2025 3:30 PM CDT Appointment Department of Radiology, [facility] in [place], [place] [address] [place] [phone] Hang Arrington M.D. [address] [place] [phone] 08/20/2025 10:00 AM MUSICAL THERAPIST Telemedicine Department of Vascular Medicine in [place], [place] [address] [place] [phone] Hang Arrington M.D. [address] [place] [phone] documented as of this encounter Visit Diagnoses Not on filedocumented in this encounter Care Teams Circus Roustabout Relationship Specialty Start Date End Date Elsewhere, Pcp PCP - General Internal Medicine 04/12/24 documented as of this encounter
--- OUTSIDE RECORDS SUMMARY | 2025-07-31 18:40 | XMS_ITS | Clinical Summary ---
Author Organization [facility] Address [address] [facility] [place] [address] Care Team Providers Care Account Classification Clerk Name Role Phone Mariluz Diamond MD Primary Care Provider Unavailab le Source Comments You are receiving this document as you are listed as the primary care provider,follow-up provider, or the patient has been referred to you for consultation.This is in compliance with the Medicare andSelect [facility] Shaw[facility] EHR Incentive Program,which states Providers who transition their patient to another setting of careor provider of care or refers their patient to another provider of care shouldprovide summary care record for each transition of care or referral. [facility] Allergies Active Allergy Reactions Criticality Noted Date [...] 11/14/2018 LSIL. Plan: Pap due 10/2019 [facility] review: 05/2016: NILM 10/2018: LSIL (age [...] contact Iwona Cordero, Healthy Beginnings Specialist, at [phone]. 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 Does not exclude the possiblity of exposure to HCV. Blood Venipuncture / Unknown 05/22/2021 2:15 PM CDT 05/22/2021 2:15 PM CDT us Olivia Galvan MD LAB_1 Final Result [facility] [address] * HIV 1/2 Ag/Ab 4th Generation (12/19/2020 9:24 AM CHEMICAL PROCESSOR) HIV 1/2 Antigen/Antib chad (4th generation) Negative (Non Reactive) Negative (Non Reactive) 12/19/2020 1:00 PM CHEMICAL PROCESSOR [facility] Comment:HIV-1 p24 Antigen an d HIV-1/HIV-2 Antibody not detected Blood Venipuncture / Unknown 12/19/2020 9:24 AM CHEMICAL PROCESSOR 12/19/2020 9:24 AM CHEMICAL PROCESSOR us Xochitl Beard APRN, HALLIE LAB_1 Final R esult [facility] [address] * PAP Test (12/19/2020 9:23 AM CHEMICAL PROCESSOR) Case Report Pap Case: [id number] Authorizing Provider: Xochitl Beard APRN, CNP Collected: 12/19/2020 0923 Ordering Location: [facility] Received: 12/19/2020 0939 Services-BORE MILL OPERATOR First Screen: Mariluz Loza CT (ASCP) Specimen: Pap Test, Diagnostic, Cervix/Endocervix 12/23/2020 4:03 PM CHEMICAL PROCESSOR [facility] Pap Specimen Adequacy Satisfactory for evaluation, endocervical/simental sformation zone component present. 12/23/2020 4:03 PM CHEMICAL PROCESSOR [facility] Pap Interpretation Negative for intraepithelial lesion or malignancy (NILM). 12/23/2020 4:03 PM CHEMICAL PROCESSOR [facility] at 1603 CHEMICAL PROCESSOR Pap Disclaimer The Pap test is a screening test designed to aid in the detection of cervical cancer and its precursor lesions. It is not a diagnostic procedure and should not be used as the sole means of detecting cervical cancer. Both false-positive and false-negative results may occur. 12/23/2020 4:03 PM CHEMICAL PROCESSOR [facility] Gross Description The specimen is received in SurePath fixative and properly labeled. 1 Pap-stained SurePath slide is prepared. 12/23/2020 4:03 PM CHEMICAL PROCESSOR [facility] Embedded Images 4:03 PM CHEMICAL PROCESSOR [facility] Other Specimen Type ENTIRE ENDOCERVIX / Unknown 12/19/2020 9:23 AM CHEMICAL PROCESSOR 12/19/2020 9:39 AM CHEMICAL PROCESSOR Comment:LMP: Patient's last menstrual period was 10/23/2020 (exact date). Xochitl Beard APRN, [facility] PATHOLOGY Final R esult [facility] [address] [place] [address], [facility] from Last 3 Months or Most Recently Relevant to Health Maintenance Insurance [facility] Care Teams Account Classification Clerk Relationship Specialty Start Date End Date Mariluz Diamond MD PCP - General Family Practice 11/25/18
--- OUTSIDE RECORDS SUMMARY | 2025-07-31 18:40 | XMS_ITS | CCD ---
Author Name Interface, [id number] Address [address] [place] [address] [address] [address] Organization [facility] Address [address] [facility] [address] [place] [address] Care Team Providers Care Well Logging Captain Mud Analysis Name Role Phone Enzo Garg MD Unavailable [...]
--- OUTSIDE RECORDS SUMMARY | 2025-07-31 18:40 | XMS_ITS | Encounter Summary ---
Author Organization [place] Address [facility] [place] [place] [address] Care Team Providers Care Territory Representative Name Role Phone [facility] Primary Care Provider Leatha Wagner APRN [facility] Unavailable [phone] Mariana Acosta-C Unavailable +[phone] Sarah Juares MD Primary Care Provider [phone] Lucas Nuno MD Unavailable +-78 Mariana AcostaC Unavailable [phone] Lucas Nuno MD Unavailable +- 71 Mariana AcostaC Unavailable [phone] Purvi Jeong [facility] Unavailable [phone] Lucas Nuno MD Unavailable +- 32 Meghan Cox [facility] Unavailable [phone] Encounter Details Date Type Department Care Team (Late st Contact Info) Description 10/22/2021 [facility] Medical Advice [facility] [address] 4th [place] [address] HespenGiuliana Social History Tobacco Use Types Packs/Day Years Used Date Smoking Tobacco: Former Smokeless Tobacco: Never Alcohol Use Standard Drinks/Week Comments Not Currently 0 (1 standard drink = 0.6 oz pur e alcohol) [place] Depression Scale Answer Date Recorded [place] Depression Score 1 07/06/2021 Last EPDS Self Harm Result Not on file 07/06 Comments No Sex and Gender Information Value Date Recorded Sex Assigned at Female 06/03/2022 7:36 AM CDT 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 Gender Identity Female 06/03/2022 7:36 AM [...] documented as of this encounter Care Teams Territory Representative Relationship Specialty Start Date End Date [facility] [address] [facility] [place] [address] PCP - General 01/02/14 03/23/23 [place] [address] [place] [address] PCP - General Family Medicine 03/13/25 Leatha Wagner APRN [facility] [address] [place] [address] Assigned Surgical Provider 11/02/21 09/04/22 Mariana Acosta PA-C [address] [place] [address] Assigned Surgical Provider 09/05/22 12/09/23 Lucas Nuno MD [address] [address] Assigned Surgical Provider 12/10/23 01/07/24 Mariana Acosta PA-C [address] [address] Assigned Surgical Provider 01/08/24 03/08/24 Lucas Nuno MD [address] [address] Assigned Surgical Provider 03/09/24 12/09/24 Mariana Acosta PA-C [address] [address] Assigned Surgical Provider 12/10/24 02/06/25 Purvi Jeong [facility] [address] [place] [address] Pharmacist Pharmacist Receiving Worker 01/03/25 Lucas Nuno MD [address] [place] [address] Assigned Surgical Provider 02/07/25 Meghan Cox [facility] [address] [place] [address] Pharmacist Pharmacist Receiving Worker 03/20/25 documented as of this encounter
--- OUTSIDE RECORDS SUMMARY | 2025-07-31 18:40 | XMS_ITS | Encounter Summary ---
Author Organization [place] Address [address] [facility] [place] [address] Care Team Providers Care Artificial Pearl Maker Name Role Phone Sarah Juares MD Primary Care Provider Purvi Jeong [facility] Unavailable [phone] Lucas Nuno MD Unavailable [phone] Meghan Cox [facility] Unavailable [phone] Encounter Details Date Type Department Care Team (Late st Contact Info) Description 06/06/2025 My[facility] Medical Advice [facility] [place] [address] [facility] [address] 4th [place] [address] Lucas Nuno MD [address] [facility] [address] [place] [address] Social History Tobacco Use Types Packs/Day Years Used Date Smoking Tobacco: Former Smokeless Tobacco: Never Alcohol Use Standard Drinks/Week Comments Not Currently 0 (1 standard drink = 0.6 oz pur e alcohol) rare PHQ-2 Answer Date Recorded PHQ-2 Score 0 02/22/2025 [place] Depression Scale Answer Date Recorded [place] Depression Score 1 07/06/2021 Last EPDS Self [...] AM CDT 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 Gender Identity Female 06/03/2022 7:36 AM CDT Sexual Orientation Straight 06/03/2022 7: 36 AM CDT documented as of this encounter Plan of Treatment Not on file documented as of this encounter Visit Diagnoses Not on filedocumented in this encounter Care Teams Artificial Pearl Maker Relationship Specialty [place] [address] [place] [address] PCP - General Family Medicine 03/13/25 Purvi Jeong Melody [address] [place] [address] [phone] Pharmacist Pharmacist Engineering Teacher 01/03/25 Lucas Nuno MD [address] [place] [address] 125995 Assigned Surgical Provider 02/07/25 Meghan Cox RPH [address] [place] [address] [phone] Pharmacist Pharmacist Engineering Teacher 03/20/25 documented as of this encounter
--- OUTSIDE RECORDS SUMMARY | 2025-07-31 18:40 | XMS_ITS | Encounter Summary ---
Author Organization [place] Address [facility] [place] [address] Care Team Providers Care Farm Supervisor Name Role Phone [facility] Primary Care Provider Leatha Wagner APRN [facility] Unavailable [phone] Mariana AcostaC Unavailable [phone] Sarah Juares MD Primary Care Provider [phone] Lucas Nuno MD Unavailable +-6 Mariana AcostaC Unavailable [phone] Lucas Nuno MD Unavailable +-6 69 Mariana Acosta PA-C Unavailable [phone] Purvi Jeong [facility] Unavailable [phone] Lucas Nuno MD Unavailable +-6 Meghan Cox [facility] Unavailable [phone] Encounter Details Date Type Department Care Team (Late st Contact Info) Description 10/23/2021 [facility] [address] 4th [place] [address] Leatha Wagner APRN [facility] [address] [place] [address] Epigastric pain (Primary Dx); Gastroesophageal reflux disease with esophagitis, unspecified whether hemorrhage; RUQ abdominal pain Social History Tobacco Use Types Packs/Day Years Used Date Smoking Tobacco: Former Smokeless Tobacco: Never Alcohol Use Standard Drinks/Week Comments Not Currently 0 (1 standard drink = 0.6 oz pur e alcohol) [place] Depression Scale Answer Date Recorded [place] Depression Score 1 07/06/2021 Last EPDS Self Harm Result Not on file 07/06 Comments No Sex and Gender Information Value Date Recorded Sex Assigned at Female 06/03/2022 7:36 AM CDT 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 Gender Identity Female 06/03/2022 7:36 AM [...] documented as of this encounter Care Teams Farm Supervisor Relationship Specialty Start Date End Date [facility] [address] [facility] [place] [address] PCP - General 01/02/14 03/23/23 [place] [address] [place] [address] PCP - General Family Medicine 03/13/25 Leatha Wagner APRN [facility] [address] [place] [address] Assigned Surgical Provider 11/02/21 09/04/22 Mariana Acosta PA-C [address] [place] [address] [address] Assigned Surgical Provider 09/05/22 12/09/23 Lucas Nuno MD [address] [place] [address] [address] Assigned Surgical Provider 12/10/23 01/07/24 Mariana Acosta PA-C [address] [place] [address] [address] Assigned Surgical Provider 01/08/24 03/08/24 Lucas Nuno MD [address] [facility] [address] [address] Assigned Surgical Provider 03/09/24 12/09/24 Mariana Acosta PA-C [address] [address] Assigned Surgical Provider 12/10/24 02/06/25 Purvi Jeong [facility] [address] [place] [address] [phone] Pharmacist Pharmacist Instructor Looping 01/03/25 Lucas Nuno MD [address] [place] [address] 109165 Assigned Surgical Provider 02/07/25 Meghan Cox [facility] [address] [place] [address] [phone] Pharmacist Pharmacist Instructor Looping 03/20/25 documented as of this encounter
--- OUTSIDE RECORDS SUMMARY | 2025-07-31 18:40 | XMS_ITS | Encounter Summary ---
Author Organization [place] Address [facility] [place] [address] Care Team Providers Care Air Defence Officer Name Role Phone [facility], [facility] Primary Care Provider Leatha Wagner APRN [facility] Unavailable [phone] Mariana Acosta-C Unavailable [phone] Sarah Juares MD Primary Care Provider [phone] Lucas Nuno MD Unavailable +-42 Mariana AcostaC Unavailable [phone] Lucas Nuno MD Unavailable +-[phone] 77 Mariana AcostaC Unavailable [phone] Purvi Jeong [facility] Unavailable [phone] Lucas Nuno MD Unavailable +- 97 Meghan Cox [facility] Unavailable [phone] Encounter Details Date Type Department Care Team (Late st Contact Info) Description 12/08/2021 [facility] Medical Advice [facility] [address]th [place] [address] Rita Gillespie, EMT Social History Tobacco Use Types Packs/Day Years Used Date Smoking Tobacco: Former Smokeless Tobacco: Never Alcohol Use Standard Drinks/Week Comments Not Currently 0 (1 standard drink = 0.6 oz pur e alcohol) [place] Depression Scale Answer Date Recorded [place] Depression Score 1 07/06/2021 Last EPDS Self Harm Result Not on file 07/06 Comments No Sex and Gender Information Value Date Recorded Sex Assigned at Female 06/03/2022 7:36 AM CDT 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 [facility] [place] [address] PCP - General 01/02/14 03/23/23 [place] [address] [address] [facility] [place] [address] PCP - General Family Medicine 03/13/25 Leatha Wagner APRN SHOE LINING FITTER [address] [place] [address] Assigned Surgical Provider 11/02/21 09/04/22 Mariana Acosta PA-C [address] [place] [address] Assigned Surgical Provider 09/05/22 12/09/23 Lucas Nuno MD [address] [address] Assigned Surgical Provider 12/10/23 01/07/24 Mariana Acosta PA-C [address] [address] Assigned Surgical Provider 01/08/24 03/08/24 Lucas Nuno MD [address] [address] Assigned Surgical Provider 03/09/24 12/09/24 Mariana Acosta PA-C [address] [address] Assigned Surgical Provider 12/10/24 02/06/25 Purvi Jeong [facility] [address] [place] [address] [phone] Pharmacist Pharmacist Sound Installation Worker 01/03/25 Lucas Nuno MD [address] [place] [address] Assigned Surgical Provider 02/07/25 Meghan Cox [facility] 9 [place] [address] Pharmacist Pharmacist Sound Installation Worker 03/20/25 documented as of this encounter
--- OUTSIDE RECORDS SUMMARY | 2025-07-31 18:40 | XMS_ITS | Patient Health Record ---
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
--- OUTSIDE RECORDS SUMMARY | 2025-07-31 18:40 | XMS_ITS | Encounter Summary ---
Author Organization [place] Address [facility] [place] [address] Care Team Providers Care Army Senior Officer Name Role Phone [facility], [facility] Primary Care Provider Leatha Wagner APRN [facility] Unavailable [phone] Mariana Acosta-C Unavailable [phone] Sarah Juares MD Primary Care Provider [phone] Lucas Nuno MD Unavailable +-55 Mariana AcostaC Unavailable [phone] Lucas Nuno MD Unavailable +- 32 Mariana AcostaC Unavailable [phone] Purvi Jeong [facility] Unavailable [phone] Lucas Nuno MD Unavailable +- 00 Meghan Cox [facility] Unavailable [phone] Encounter Details Date Type Department Care Team (Late st Contact Info) Description 12/10/2021 [facility] Medical Advice [facility] [address]th [place] [address] Paulina Denny RN Social History Tobacco Use Types Packs/Day Years Used Date Smoking Tobacco: Former Smokeless Tobacco: Never Alcohol Use Standard Drinks/Week Comments Not Currently 0 (1 standard drink = 0.6 oz pur e alcohol) [place] Depression Scale Answer Date Recorded [place] Depression Score 1 07/06/2021 Last EPDS Self Harm Result Not on file 07/06 Comments No Sex and Gender Information Value Date Recorded Sex Assigned at Female 06/03/2022 7:36 AM CDT 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 Gender Identity Female 06/03/2022 7:36 AM [...] documented as of this encounter Care Teams Army Senior Officer Relationship Specialty Start Date End Date [facility], [facility] [address] [facility] [place] [address] PCP - General 01/02/14 03/23/23 [place] [address] [place] [address] PCP - General Family Medicine 03/13/25 Leatha Wagner APRN GENERAL OFFICE ASSOCIATE [address] [place] [address] Assigned Surgical Provider 11/02/21 09/04/22 Mariana Acosta PA-C [address] [place] [address] Assigned Surgical Provider 09/05/22 12/09/23 Lucas Nuno MD [address] [address] Assigned Surgical Provider 12/10/23 01/07/24 Mariana Acosta PA-C [address] [address] Assigned Surgical Provider 01/08/24 03/08/24 Lucas Nuno MD [address] [address] Assigned Surgical Provider 03/09/24 12/09/24 Mariana Acosta PA-C [address] [address] Assigned Surgical Provider 12/10/24 02/06/25 Purvi Jeong [facility] [address] [place] [address] [phone] Pharmacist Pharmacist Aircraft Mechanic Electrical And Radio 01/03/25 Lucas Nuno MD [address] [place] [address] Assigned Surgical Provider 02/07/25 Meghan Cox [facility] [address] [place] [address] Pharmacist Pharmacist Aircraft Mechanic Electrical And Radio 03/20/25 documented as of this encounter
--- OUTSIDE RECORDS SUMMARY | 2025-07-31 18:41 | XMS_ITS | Encounter Summary ---
Author Organization [place] Address [address] [facility] [place] [address] Care Team Providers Care Feather Boner Name Role Phone Sarah Juares MD Primary Care Provider [phone] Lucas Nuno MD Unavailable [phone] Mariana Acosta PA-C Unavailable + [phone] Purvi Jeong [facility] Unavailable [phone] Lucas Nuno MD Unavailable +[phone] Meghan Cox [facility] Unavailable [phone] Encounter Details Date Type Department Care Team (Late st Contact Info) Description 11/16/2024 MyC Medical Advice [facility] Weight Management [facility] [address] 4th [place] [address] Anastasia Molina, RN Social History Tobacco Use Types Packs/Day Years Used Date Smoking Tobacco: Former Smokeless Tobacco: Never Alcohol Use Standard Drinks/Week Comments Not Currently 0 (1 standard drink = 0.6 oz pur e alcohol) rare PHQ-2 Answer Date Recorded PHQ-2 Score 0 11/15/[address] Depression Scale Answer Date Recorded [place] Depression Score 1 07/06/2021 Last EPDS Self Harm Result Not on file 07/06 Adolescent Education Answer Date Record ed Getting School Help Needed Not on file 07/10 Comments No Sex and Gender Information Value Date Recorded Sex Assigned at Female 06/03/2022 7:36 AM CDT 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 Gender Identity Female 06/03/2022 7:36 AM CDT Sexual Orientation Straight 06/03/2022 7: 36 AM CDT documented as of this encounter Plan of Treatment Not on file documented as of this encounter Visit Diagnoses Not on filedocumented in this encounter Care Teams Feather Boner Relationship Specialty [place] [address] [place] [address] PCP - General Family Medicine 03/13/25 Lucas Nuno MD [address] [address] Assigned Surgical Provider 03/09/24 12/09/24 Mariana Acosta PA-C [address] [address] Assigned Surgical Provider 12/10/24 02/06/25 Purvi Jeong [facility] [address] [place] [address] Pharmacist Pharmacist Residential Real Estate Appraiser 01/03/25 Lucas Nuno MD [address] [address] Assigned Surgical Provider 02/07/25 Meghan Cox [facility] [address] [place] [address] Pharmacist Pharmacist Residential Real Estate Appraiser 03/20/25 documented as of this encounter
--- OUTSIDE RECORDS SUMMARY | 2025-07-31 18:41 | XMS_ITS | Encounter Summary ---
Author Organization [place] Address [address] [facility] [place] [address] Care Team Providers Care Community Dietitian Name Role Phone Sarah Juares MD Primary Care Provider [phone] Lucas Nuno MD Unavailable [phone] Mariana Acosta PA-C Unavailable + [phone] Purvi Jeong [facility] Unavailable [phone] Lucas Nuno MD Unavailable +[phone] Meghan Cox [facility] Unavailable [phone] Encounter Details Date Type Department Care Team (Late st Contact Info) Description 04/13/2024 [facility] [address] [place] [id number] [facility] Social History Tobacco Use Types Packs/Day Years Used Date Smoking Tobacco: Former Smokeless Tobacco: Never Alcohol Use Standard Drinks/Week Comments Not Currently 0 (1 standard drink = 0.6 oz pur e alcohol) rare PHQ-2 Answer Date Recorded PHQ-2 Score 0 05/12/2023 [place] Depression Scale Answer Date Recorded [place] Depression Score 1 07/06/2021 Last EPDS Self Harm Result Not on file 07/06 Adolescent Education Answer Date Record ed Getting School Help Needed Not on file 07/10 Comments No Sex and Gender Information Value Date Recorded Sex Assigned at Female 06/03/2022 7:36 AM CDT 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 Gender Identity Female 06/03/2022 7:36 AM CDT Sexual Orientation Straight 06/03/2022 7: 36 AM CDT documented as of this encounter Plan of Treatment Not on file documented as of this encounter Visit Diagnoses Not on filedocumented in this encounter Care Teams Community Dietitian Relationship Specialty [place] [address] [place] [address] PCP - General Family Medicine 03/13/25 Lucas Nuno MD [address] [address] Assigned Surgical Provider 03/09/24 12/09/24 Mariana Acosta PA-C [address] [address] Assigned Surgical Provider 12/10/24 02/06/25 Purvi Jeong [facility] [address] [place] [address] [phone] Pharmacist Pharmacist Card Assembler 01/03/25 Lucas Nuno MD [address] [address] Assigned Surgical Provider 02/07/25 Meghan Cox [facility] [address] [place] [phone] Pharmacist Pharmacist Card Assembler 03/20/25 documented as of this encounter
--- OUTSIDE RECORDS SUMMARY | 2025-07-31 18:41 | XMS_ITS | Encounter Summary ---
Author Organization [place] Address [address] [facility] [place] [address] Care Team Providers Care Hardware Test Engineer Name Role Phone Mariana Acosta PA-C Unavailable + [phone] Sarah Juares MD Primary Care Provider [phone] Lucas Nuno MD Unavailable [phone] Mariana Acosta PA-C Unavailable + [phone] Lucas Nuno MD Unavailable [phone] Mariana Acosta PA-C Unavailable + [phone] Purvi Jeong [facility] Unavailable [phone] Lucas Nuno MD Unavailable [phone] Meghan Cox [facility] Unavailable [phone] Reason for Visit * Reason Onset Date Comments Refill Request 10/20/2023 Encounter Details Date Type Department Care Team (Late st Contact Info) Description 10/20/2023 [facility] [place] [address] [facility] [address] [place] [address] Mariana Acosta PA-C [address] [place] [address] [facility] [address] [place] [address] Refill Request Social History Tobacco Use Types Packs/Day Years Used Date Smoking Tobacco: Former Smokeless Tobacco: Never Alcohol Use Standard Drinks/Week Comments Not Currently 0 (1 standard drink = 0.6 oz pur e alcohol) rare PHQ-2 Answer Date Recorded PHQ-2 Score 0 05/12/2023 [place] Depression Scale Answer Date Recorded [place] Depression Score 1 07/06/2021 Last EPDS Self Harm Result Not on file 07/06 Adolescent Education Answer Date Record ed Getting School Help Needed Not on file 07/10 Comments No Sex and Gender Information Value Date Recorded Sex Assigned at Female 06/03/2022 7:36 AM CDT 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 Gender Identity Female 06/03/2022 7:36 AM CDT Sexual Orientation Straight 06/03/2022 7: 36 AM CDT documented as of this encounter Plan of Treatment Not on file documented as of this encounter Visit Diagnoses Diagnosis Class 2 severe obesity due to excess calories with serious comorbidity and body mass index (BMI) of 39.0 to 39.9 in adult documented in this encounter Care Teams Hardware Test Engineer Relationship Specialty [place] [address] [facility] [place] [address] PCP - General Family Medicine 03/13/25 Mariana Acosta PA-C [address] 459475 Assigned Surgical Provider 09/05/22 12/09/23 Lucas Nuno MD [address] [facility] [address] 113355 Assigned Surgical Provider 12/10/23 01/07/24 Mariana Acosta PA-C [address] [phone] Assigned Surgical Provider 01/08/24 03/08/24 Lucas Nuno MD [address] [place] [address] Assigned Surgical Provider 03/09/24 12/09/24 Mariana Acosta PA-C [address] [place] [address] Assigned Surgical Provider 12/10/24 02/06/25 Purvi Jeong [facility] [address] [place] [address] [phone] Pharmacist Pharmacist Ux Research Associate 01/03/25 Lucas Nuno MD [address] [place] [address] Assigned Surgical Provider 02/07/25 Meghan Cox [facility] [address] [place] [phone] Pharmacist Pharmacist Ux Research Associate 03/20/25 documented as of this encounter
--- OUTSIDE RECORDS SUMMARY | 2025-07-31 18:41 | XMS_ITS | Encounter Summary ---
Author Organization [place] Address [address] [facility] [place] [address] Care Team Providers Care Regional Facilities Manager Name Role Phone Sarah Juares MD Primary Care Provider [phone] Mariana AcostaC Unavailable + [phone] Purvi Jeong [facility] Unavailable Lucas Nuno MD Unavailable +[phone] Meghan Cox [facility] Unavailable [phone] Encounter Details Date Type Department Care Team (Late st Contact Info) Description 01/09/2025 MyC Medical Advice [facility] [address] 4th [place] [address] Mirna Ibrahim, ELIZABETH Social History Tobacco Use Types Packs/Day Years Used Date Smoking Tobacco: Former Smokeless Tobacco: Never Alcohol Use Standard Drinks/Week Comments Not Currently 0 (1 standard drink = 0.6 oz pur e alcohol) rare PHQ-2 Answer Date Recorded PHQ-2 Score 0 11/15/2024 [place] Depression Scale Answer Date Recorded [place] Depression Score 1 07/06/2021 Last EPDS Self Harm Result Not on file 07/06 Adolescent Education Answer Date Record ed Getting School Help Needed Not on file 07/10 Comments No Sex and Gender Information Value Date Recorded Sex Assigned at Female 06/03/2022 7:36 AM CDT 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 Gender Identity Female 06/03/2022 7:36 AM CDT Sexual Orientation Straight 06/03/2022 7: 36 AM CDT documented as of this encounter Plan of Treatment Not on file documented as of this encounter Visit Diagnoses Not on filedocumented in this encounter Care Teams Regional Facilities Manager Relationship Specialty [place] [address] [address] [place] [address] PCP - General Family Medicine 03/13/25 Mariana Acosta PA-C [address] [place] [address] Assigned Surgical Provider 12/10/24 02/06/25 Purvi Jeong [facility] [address] [place] [phone] Pharmacist Pharmacist Heel Attacher Wood 01/03/25 Lucas Nuno MD [address] [place] [address] Assigned Surgical Provider 02/07/25 Meghan Cox [facility] [address] [place] [phone] Pharmacist Pharmacist Heel Attacher Wood 03/20/25 documented as of this encounter
--- OUTSIDE RECORDS SUMMARY | 2025-07-31 18:41 | XMS_ITS | Encounter Summary ---
Author Organization [place] Address [address] [facility] [place] [address] Care Team Providers Care Wooden Fence Erector Name Role Phone Sarah Juares MD Primary Care Provider [phone] Mariana Acosta-C Unavailable + [phone] Purvi Jeong [facility] Unavailable [phone] Lucas Nuno MD Unavailable [phone] Meghan Cox [facility] Unavailable [phone] Encounter Details Date Type Department Care Team (Late st Contact Info) Description 02/02/2025 MyC Medical Advice [facility] [address] 4th [place] [address] Anastasia Molina, RN Social History Tobacco Use Types Packs/Day Years Used Date Smoking Tobacco: Former Smokeless Tobacco: Never Alcohol Use Standard Drinks/Week Comments Not Currently 0 (1 standard drink = 0.6 oz pur e alcohol) rare PHQ-2 Answer Date Recorded PHQ-2 Score 0 11/15/2024 [place] Depression Scale Answer Date Recorded [place] Depression Score 1 07/06/2021 Last EPDS Self [...] AM CDT 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 Gender Identity Female 06/03/2022 7:36 AM CDT Sexual Orientation Straight 06/03/2022 7: 36 AM CDT documented as of this encounter Plan of Treatment Not on file documented as of this encounter Visit Diagnoses Not on filedocumented in this encounter Care Teams Wooden Fence Erector Relationship Specialty [place] [address] [place] [address] PCP - General Family Medicine 03/13/25 Mariana Acosta PA-C [address] [place] [address] [phone] Assigned Surgical Provider 12/10/24 02/06/25 Purvi Jeong [facility] [address] [place] [address] [phone] Pharmacist Pharmacist Board Worker 01/03/25 Lucas Nuno MD [address] [place] [address] [phone] Assigned Surgical Provider 02/07/25 Meghan Cox [facility] [address] [place] [address] [phone] Pharmacist Pharmacist Board Worker 03/20/25 documented as of this encounter
--- OUTSIDE RECORDS SUMMARY | 2025-07-31 18:41 | XMS_ITS | Encounter Summary ---
Author Organization [place] Address [facility] [place] [address] Care Team Providers Care Tailor Fitter Name Role Phone Clinic, [facility] Primary Care Provider Leatha Wagner APRN [facility] Unavailable [phone] Mariana Acosta-C Unavailable + [phone] Sarah Juares MD Primary Care Provider [phone] Lucas Nuno MD Unavailable +[phone] Mariana AcostaC Unavailable + [phone] Lucas Nuno MD Unavailable +[phone] Mariana Acosta PA-C Unavailable [phone] Purvi Jeong [facility] Unavailable [phone] Lucas Nuno MD Unavailable +[phone] Meghan Cox [facility] Unavailable [phone] Encounter Details Date Type Department Care [...] AM CDT 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 Gender Identity Female 06/03/2022 7:36 AM [...] documented as of this encounter Care Teams Tailor Fitter Relationship Specialty Start Date End Date [facility], [facility] [address] [place] [address] PCP - General 01/02/14 03/23/23 [place] [address] [place] [address] PCP - General Family Medicine 03/13/25 Leatha Wagner APRN [employer]PED CORN OVEN ATTENDANT [address] [place] [address] Assigned Surgical Provider 11/02/21 09/04/22 Mariana Acosta PA-C [address] 343135 Assigned Surgical Provider 09/05/22 12/09/23 Lucas Nuno MD [address] [phone] Assigned Surgical Provider 12/10/23 01/07/24 Mariana Acosta PA-C [address] [address] Assigned Surgical Provider 01/08/24 03/08/24 Lucas Nuno MD [address] [address] Assigned Surgical Provider 03/09/24 12/09/24 Mariana Acosta PA-C [address] [address] Assigned Surgical Provider 12/10/24 02/06/25 Purvi Jeong RPH [address] [place] [address] [phone] Pharmacist Pharmacist Marketing Director 01/03/25 Lucas Nuno MD [address] [address] Assigned Surgical Provider 02/07/25 Meghan Cox RPH [address] [place] [address] [phone] Pharmacist Pharmacist Marketing Director 03/20/25 documented as of this encounter
--- OUTSIDE RECORDS SUMMARY | 2025-07-31 18:41 | XMS_ITS ---
Author Name Interface, [id number] lity Address [address] [facility] [address] [address] Organization [facility] Address [address] [facility] [address] [address] Support Name Relationship Address Phone FREEDOM ALEMAN [...] 1 HR 07/07/2023 APPOINTMENT CHART CHECK 5 [place] N 07/05/2023 APPOINTMENT [facility] LOW UP 20 MIN 07/05/2023 APPOINTMENT LAB [...] 10.0 130.0 5.80 Low FINAL Enzo Garg [facility], [facility] [address] [id number] 0 Phone: () - 07/05 Iron profi le TIBC ug/dL 250.0 425.0 410 FINAL Enzo Garg [facility], [address] [phone] 0 Phone: () - 07/05 Iron profi le Iron ug/dL 50.0 175.0 43 Low FINAL Enzo Garg [facility], [address] [facility] [address] [id number] 0 Phone: () - 07/05 Iron profi le Unbou nd iron capac ity ug/dL 75.0 410.0 367 FINAL Enzo Garg [place] [address] [id number] 0 Phone: () - 07/05 Iron profi le Iron, % satur ation % 20.0 55.0 10 Low FINAL Enzo Garg [facility], [address] [phone] 0 Phone: () - 07/05 CBC w/ auto diff WBC K/uL 3.0 8.9 7.1 FINAL [facility] [place], [address] [place] [phone] 0 Phone: () - 07/05 CBC w/ auto diff HGB g/dL 11.3 15.2 11.5 FINAL [facility] [place], [address] [place] [phone] 0 Phone: () - 07/05 CBC w/ auto diff PLT K/uL 113.0 364.0 302 FINAL [facility] [place], [address] [place] [phone] 0 Phone: () - 07/05 CBC w/ auto diff Fly # (ANC) K/uL 1.6 6.6 4.5 FINAL [facility] [place], [address] [place] [phone] 0 Phone: () - 07/05 CBC w/ auto diff Fly % % 43.0 74.0 62.6 FINAL [facility] [place], [address] [place] [phone] 0 Phone: () - 07/05 CBC w/ auto diff IG % % 0.0 0.5 0.3 FINAL [facility] [place], [address] [place] [phone] 0 Phone: () - 07/05 CBC w/ auto diff IG # K/uL 0.0 0.03 0.02 FINAL [facility] [place], [address] [place] [phone] 0 Phone: () - 07/05 CBC w/ auto diff LY % % 14.0 41.0 29.7 FINAL [facility] [place], [address] [place] [phone] 0 Phone: () - 07/05 CBC w/ auto diff MO % % 6.0 15.0 5.9 Low FINAL [facility] [place], [address] [place] [phone] 0 Phone: () - 07/05 CBC w/ auto diff EO % % 0.0 7.0 1.4 FINAL [facility] [place], [address] [place] [phone] 0 Phone: () - 07/05 CBC w/ auto diff BA % % 0.0 2.0 0.1 FINAL [facility] [place], [address] [place] [phone] 0 Phone: () - 07/05 CBC w/ auto diff LY # K/uL 0.4 3.6 2.1 FINAL [facility] [place], [address] [place] [phone] 0 Phone: () - 07/05 CBC w/ auto diff MO # K/uL 0.2 1.3 0.4 FINAL [facility] [place], [address] [place] [phone] 0 Phone: () - 07/05 CBC w/ auto diff EO # K/uL 0.0 0.6 0.1 FINAL [facility] [place], [address] [place] [phone] 0 Phone: () - 07/05 CBC w/ auto diff BA # K/uL 0.0 0.2 0.0 FINAL [facility] [place], [address] [place] [phone] 0 Phone: () - 07/05 CBC w/ auto diff NRBC % #/100W BC 0.0 0.2 0.0 FINAL [facility] [place], [address] [place] [phone] 0 Phone: () - 07/05 CBC w/ auto diff RBC M/uL 3.9 5.1 3.81 Low FINAL [facility] [place], [address] [place] [phone] 0 Phone: () - 07/05 CBC w/ auto diff HCT % 35.0 48.0 35.8 FINAL [facility] [place], [address] [place] [phone] 0 Phone: () - 07/05 CBC w/ auto diff MCV fL 80.0 104.0 94.0 FINAL [facility] [place], [address] [place] [phone] 0 Phone: () - 07/05 CBC w/ auto diff MCH pg 26.0 35.0 30.2 FINAL [facility] [place], [address] [place] [phone] 0 Phone: () - 07/05 CBC w/ auto diff MCHC g/dL 30.0 35.0 32.1 FINAL [facility] [place], [address] [place] [phone] 0 Phone: () - 07/05 CBC w/ auto diff MPV fL 9.5 13.4 9.1 Low FINAL [facility] [place], [address] [place] [phone] 0 Phone: () - 07/05 CBC w/ auto diff RDW % 11.4 16.1 15.70 FINAL [facility] [place], [address] [place] [phone] 0 Phone: () - 01/19 [facility] other lab See baby doctor d 02/17 [facility] other lab See baby doctor d 03/14 [facility] other lab See baby doctor d 03/27 [facility] other lab See attache patel 04/02 [facility] other lab See attache patel 04/06 [facility] other lab See attache patel Medications Date Name Route Dose Frequency Instructions Start Date End Date Status Fill Status Indication 07/02 Omepraz ole Oral Delayed Release Capsule active 07/02 Metroni dazole Vaginal Gel 0.75 % active 07/02 Multivi tamins Oral Tablet active 07/05 Enoxapa rin Subcuta neous BID active 07/02 Brimoni dine Topical Gel 0.33 % active 07/02 Ferrous Sulfate Oral active 07/07 famotid ine 10 MG/ML Injecta [...] Onc Consult <html><head></head><body><div style=text-align:center><span style=font- size:9px></span><span style=font-size:12px><span style=font-family:Walford,Helvetica,sans-serif><span class=clinicalNote MacroHighlighted id=[id number] macroname=PracticeLetterhead&quot ; spantype=macro title=#PracticeLetterhead><img mnqysc=586 src=live/fileDownload?type=[email or web address]&lyjwXfiwtrnvaaGz=[id number] jzwmw=166> </span></span></span>
</div><span style=font-size:12px"><span style=font-family:Walford,Helvetica,sans-serif>
<strong>Patient Name: </strong><span class=clinicalNoteMacroHighlighted id=&quo t;[id number] macroname=PatientName spantype=macro title=&q uot;#PatientName>KALEB ALEMAN CARDONA</span>
<strong>MRN: &lt ;/strong><span class=clinicalNoteMacroHighlighted id=[id number]& quot; macroname=PatientMRN spantype=macro title=#PatientMRN>[id number]</span>
<strong>Date of : </strong><span class=&qu ot;clinicalNoteMacroHighlighted id=[id number] macroname=Patient DateOfBirth spantype=macro title=#PatientDateOfBirth>1995< /span>
<strong>Date of Service: </strong><span class=clini calNoteMacroHighlighted id=[id number] macroname=EffectiveDate&qu ot; spantype=macro title=#EffectiveDate>07/05/2023</span></span& gt;</span>
<strong>Attending Physician: </strong><span class=clinicalNoteMacroHighlighted id=[id number] macroname= AttendingPhysician spantype=macro title=#AttendingPhysician>Enzo Garg (Hematology/Oncology)</span>
<strong>Referring Physician:</strong&g t; <span class=clinicalNoteMacroHighlighted id=[id number]& quot; macroname=ReferringPhysician spantype=macro title=#ReferringPhys ician> </span>

<div style=text-align:center><span style=font-size:12px><span style=font-family:Walford,Helvetica,sans- serif><strong>INITIAL HEMATOLOGY/MEDICAL ONCOLOGY CONSULTATIO N</strong></span></span>

</div><span style=font-size:12px><span style=font-family:Walford,Helvetica,sans-serif><span style=font- size:12px><span style=font-family:Walford,Helvetica,sans-serif&g t;</span></span><span class=clinicalNoteSectionShowSeparators clinicalNoteSecti onVisible id=[id number] internalbreaksection=false origi [...] to continue oral iron

<span style=font-size:12px&quo t;><span style=font-family:Walford,Helvetica,sans-serif><span class=clin icalNoteSectionShowSeparators clinicalNoteSectionVisible id=[id number]" internalbreaksection=false originalname=Advanced Care [...] pain planindicated for today's visit</span><span style=font-size:12px><span st yle=font-family:Walford,Helvetica,sans-serif>
<span style=font-size:1 2px><span style=font-family:Walford,Helvetica,sans-serif><span style=&qu ot;font-size:12px><span style=font-family:Walford,Helvetica,sans-serif><span style=font-size:12px><span style=font-family:Walford,Helvetica,sans-serif ><span style=font-family:Walford><span class=clinicalNoteSectionShowSeparators clinicalNoteSectionVisible id=[id number] internalbreaks ection=false originalname=Smoking Status recognizeconcepts=true spantype=section suppressempty=true>Smoking Status</span>
Smoking Status: <span class=clinicalNoteMacroHighlighted id=[id number] macroname=PatientSmokingStatus parameters=ValueIfNull:Not recor ded. spantype=macro title=#PatientSmokingStatus(ValueIfNull:Not recorded.)&q uot;>Smoking Tobacco : Former smoker, stopped smokin; Smokeless Tobacco : Never used smokeless tobacco; Vaping : Current vape user</span></span></span></span></spa n></span></span></span></span></span>

<span style=font-size:12px><span style=font-family:Walford,Helvetica,sans-serif><span style=font- size:12px><span style=font-family:Walford,Helvetica,sans-serif><span class=clinicalNoteSectionShowSeparators clinicalNoteSectionVisible" id=[id number] internalbreaksection=false originalname=&q uot;History of [...] History of Present Illness.
<span style=font-size:12px><span style=&q uot;font-family:Walford,Helvetica,sans-serif><span class=clinicalNoteSectionShowSeparators clinicalNoteSectionVisible id=[id number] internalbreaksection=false originalname=Past Medical History recognizeconcepts=true spantype=section suppressempty=false>Past Medical and Surgical History&l t;/span></span></span>
History of iron deficiency anemia

<span style=font-size:12px><span style=font-family:Walford,Helvetica,sans-s erif><span class=clinicalNoteSectionShowSeparators clinicalNoteSectionVisible" id=[id number] internalbreaksection=false originalname=Current Medications [...] Subcutaneous)</td> <td width=40%>07/05/2023</td> </tr> </tbody></table></span></span></span>
<span style=font-size:12px><span style=font-family:Walford,Helvetica,sans-serif><span class=&quo t;clinicalNoteSectionShowSeparators clinicalNoteSectionVisible id=[id number] internalbreaksection=false originalname=Allergies recognizeconcepts=true spantype=section suppressempty=false>Allergies</span>
<span class=clinicalNoteMacroHighlighted id=[id number] macroname=AllergyTable spantype=macro title=#AllergyTable"><table border=1 style=width:100%> <tbody> <tr> <td colspan=4>Current Allergy List</td> </tr> <tr> <td width="100px>Allergy Name</td> <td miybd=491dj>Severity</td> <td salkf=480eg>Status</td> <td quhlw=304qh>Recording Date</td> </tr> <tr> <td wnwcu=836op>NSAIDS (Non- Steroidal Anti-Inflammatory Drug)</td> <td ngten=549bj>
</td> <td uinvd=212nb>Active</td> <td ndmoc=945xo>07/05/2023</td> </tr> <tr> <td epdhc=144qo>Zithromax</td> <td lolyi=246qe>
</td> <td whptk=606up>Active</td> <td kalcl=333fk">07/05/2023</td> </tr> </tbody></table></span></span></span>
<span style=font-size:12px><span style=font-family:Walford,Helvetica,sans-serif><span class=clinicalNoteSectionShowSeparators clinicalNoteSectionVisible id=[id number] internalbreaksection=false originalname=Family History recognizeconcepts=true spantype=section" suppressempty=false>Family History</span></span></span>
Maternal grandmother had DVT/PE, but this was in the setting of malignancy

<span style=font-size:12px><span style=font-family:Walford,Helvetica,sans- serif><span class=clinicalNoteSectionShowSeparators clinicalNoteSectionVisible" id=[id number] internalbreaksection=false originalname="Social History recognizeconcepts=true spantype=section suppressempty=true>Social History</span></span></span>
Has 2 children, ages 4 and 2. Former smoker, quit in 2016. No significant alcohol use.

<span style=font-size:12px><span style=font-family:Walford,Helvetica,sans- serif><span class=clinicalNoteSectionShowSeparators clinicalNoteSectionV isible id=[id number] internalbreaksection=false original name=Vital Signs and Pain Scale recognizeconcepts=true spantype=section suppressempty=false>Vital Signs</span>
<span class=cl inicalNoteMacroHighlighted id=[id number] macroname=PatientVita lSigns parameters=LookBackDays:1 spantype=macro title=#PatientVi talSigns(LookBackDays:1)>Blood pressure: 152/86, Pulse: 93, Temperature: 96 F, Respirations: 16, O2 sat: 99%, Pain Scale: 0, Height: 68.75 in, Weight: 297.2 lb, BSA: 2.44, BMI: 44.21 kg/m2</span></span></span>
<span style=font-size:12px><spanstyle=font-family:Walford,Helvetica,sans-serif><span style=font-size:12px"><span style=font-family:Walford,Helvetica,sans-serif>Immunizations: <span cl ass=clinicalNoteMacroHighlighted id=[id number] macroname=I mmunizations parameters=ValueIfNull:Not [...] <td>
</td> <td>
</td> </tr> </tbody></table></span>
<span class=clinicalNoteMacroHighchi health missouri valleyed id=[id number] macroname=RecentLabResultsTable parameters=OptionalFlowsheetCategory:Chemistries,Label:Chemistries spantype=macro title=#RecentLabResultsTable(Option alFlowsheetCategory:Chemistries,Label:Chemistries)></span>
<span class=&q uot;clinicalNoteMacrWIighchi health missouri valleyed id=[id number] macroname=RecentL abResultsTable parameters=OptionalFlowsheetCategory:Tumor Markers,Label:Tumor Markers" spantype=macro title=#RecentLabResultsTable(OptionalFlowsheetCategory:Tumor Ma rkers,Label:Tumor Markers)></span>
<span class=clinicalNoteMacroHig hlighted id=[id number] macroname=RecentLabResultsTable para meters=OptionalFlowsheetCategory:Anemia Labs,Label:Anemia Results spantype=macro" title=#RecentLabResultsTable(OptionalFlowsheetCategory:Anemia Labs,Label:Anemia Results)"></span></span></span>

<span class=clinicalNot eSectionShowSeparators clinicalNoteSectionVisible id=[id number] internalbreaksection=false originalname=Surveys/Consents/Other Discussions recognizeconcepts=true spantype=section suppressempty=true>Surveys/Consents/Other Discussions</span>

<hr><span style="font-size:12px><span style=font-family:Walford,Helvetica,sans-serif>
Thank you for allowing me to see [...]
--- OUTSIDE RECORDS SUMMARY | 2025-07-31 18:41 | XMS_ITS | Encounter Summary ---
Author Organization [facility] Address [address] [facility] [place] [address] Care Team Providers Care Bezel Cutter Name Role Phone Sarah Juares MD Primary Care Provider [phone] Mariana AcostaC Unavailable + [phone] Purvi Jeong [facility] Unavailable [phone] Lucas Nuno MD Unavailable [phone] Meghan Cox [facility] Unavailable Encounter Details Date Type Department Care Team (Late st Contact Info) Description 01/30/2025 MyC Medical Advice [facility] [address] [facility] [address] [place] [address] Keena Valente Social History Tobacco Use Types Packs/Day Years Used Date Smoking Tobacco: Former Smokeless Tobacco: Never Alcohol Use Standard Drinks/Week Comments Not Currently 0 (1 standard drink = 0.6 oz pur e alcohol) rare PHQ-2 Answer Date Recorded PHQ-2 Score 0 11/15/2024 [place] Depression Scale Answer Date Recorded [place] Depression Score 1 07/06/2021 Last EPDS Self [...] AM CDT 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 Gender Identity Female 06/03/2022 7:36 AM CDT Sexual Orientation Straight 06/03/2022 7: 36 AM CDT documented as of this encounter Plan of Treatment Not on file documented as of this encounter Visit Diagnoses Not on filedocumented in this encounter Care Teams Bezel Cutter Relationship Specialty [place] [address] [place] [place] [address] PCP - General Family Medicine 03/13/25 Mariana Acosta PA-C [address] [place] [address] [id number] Assigned Surgical Provider 12/10/24 02/06/25 Purvi Jeong [facility] [address] [place] [address] Pharmacist Pharmacist Logging Contractor 01/03/25 Lucas Nuno MD [address] [place] [address] [id number] Assigned Surgical Provider 02/07/25 [facility] [address] [place] [address] Pharmacist Pharmacist Logging Contractor 03/20/25 documented as of this encounter
--- OUTSIDE RECORDS SUMMARY | 2025-07-31 18:41 | XMS_ITS | Encounter Summary ---
Author Organization [facility] Address [facility] [place] [address] Care Team Providers Care Cleaners Name Role Phone [facility] Primary Care Provider Leatha Wagner APRN [facility] Unavailable [phone] Mariana Acosta-C Unavailable [phone] Sarah Juares MD Primary Care Provider [phone] Lucas Nuno MD Unavailable [phone] Mariana AcostaC Unavailable [phone] Lucas Nuno MD Unavailable [phone] Mariana AcostaC Unavailable [phone] [facility] Unavailable [phone] Lucas Nuno MD Unavailable [phone]- [phone] [facility] Unavailable [phone] Encounter Details Date Type Department Care Team (Late st Contact Info) Description 12/17/2021 [facility] Medical Advice [facility] [address] [place] [address] QuirinopenGiuliana Social History Tobacco Use Types Packs/Day Years Used Date Smoking Tobacco: Former Smokeless Tobacco: Never Alcohol Use Standard Drinks/Week Comments Not Currently 0 (1 standard drink = 0.6 oz pur e alcohol) [place] Depression Scale Answer Date Recorded [place] Depression Score 1 07/06/2021 Last EPDS Self Harm Result Not on file 07/06 Comments No Sex and Gender Information Value Date Recorded Sex Assigned at Female 06/03/2022 7:36 AM CDT 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 Gender Identity Female 06/03/2022 7:36 AM [...] documented as of this encounter Care Teams Cleaners Relationship Specialty Start Date End Date [facility], [facility] [address] [facility] [place] [address] PCP - General 01/02/14 03/23/23 [place] [address] [place] [address] PCP - General Family Medicine 03/13/25 Leatha Wagner APRN [facility] [address] [place] [phone] Assigned Surgical Provider 11/02/21 09/04/22 Mariana Acosta PA-C [address] [place] [address] Assigned Surgical Provider 09/05/22 12/09/23 Lucas Nuno MD [address] [address] Assigned Surgical Provider 12/10/23 01/07/24 Mariana Acosta PA-C [address] [address] Assigned Surgical Provider 01/08/24 03/08/24 Lucas Nuno MD [address] [address] Assigned Surgical Provider 03/09/24 12/09/24 Mariana Acosta PA-C [address] [address] Assigned Surgical Provider 12/10/24 02/06/[address] [facility] [address] [place] [address] Pharmacist Pharmacist Sap Bpc Developer 01/03/25 Lucas Nuno MD [address] [place] [address] Assigned Surgical Provider 02/07/[address] [facility] [address] [place] [address] Pharmacist Pharmacist Sap Bpc Developer 03/20/25 documented as of this encounter
--- OUTSIDE RECORDS SUMMARY | 2025-07-31 18:41 | XMS_ITS | Encounter Summary ---
Author Organization [facility] Address [address] [place] [address] Care Team Providers Care Hogshead Hand Name Role Phone Sarah Juares MD Primary Care Provider [phone] Lucas Nuno MD Unavailable [phone] Mariana Acosta PA-C Unavailable + [phone] Purvi Jeong [facility] Unavailable [phone] Lucas Nuno MD Unavailable [phone] Meghan Cox [facility] Unavailable [phone] Encounter Details Date Type Department Care Team (Late st Contact Info) Description 11/15/2024 MyC Medical Advice [facility] [address] [place] [address] Nelda Mcdaniel Social History Tobacco Use Types Packs/Day Years Used Date Smoking Tobacco: Former Smokeless Tobacco: Never Alcohol Use Standard Drinks/Week Comments Not Currently 0 (1 standard drink = 0.6 oz pur e alcohol) rare PHQ-2 Answer Date Recorded PHQ-2 Score 0 11/15/2024 [place] Depression Scale Answer Date Recorded [place] Depression Score 1 07/06/2021 Last EPDS Self Harm Result Not on file 07/06 Adolescent Education Answer Date Record ed Getting School Help Needed Not on file 07/10 Comments No Sex and Gender Information Value Date Recorded Sex Assigned at Female 06/03/2022 7:36 AM CDT 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 Gender Identity Female 06/03/2022 7:36 AM CDT Sexual Orientation Straight 06/03/2022 7: 36 AM CDT documented as of this encounter Plan of Treatment Not on file documented as of this encounter Visit Diagnoses Not on filedocumented in this encounter Care Teams Hogshead Hand Relationship Specialty [place] [address] [place] [address] PCP - General Family Medicine 03/13/25 Lucas Nuno MD [address] [address] Assigned Surgical Provider 03/09/24 12/09/24 Mariana Acosta PA-C [address] [address] Assigned Surgical Provider 12/10/24 02/06/25 Purvi Jeong [facility] [address] [place] [address] Pharmacist Pharmacist Tap And Die Maker Technician 01/03/25 Lucas Nuno MD [address] [address] Assigned Surgical Provider 02/07/25 Meghan Cox [facility] [address] [place] [address] Pharmacist Pharmacist Tap And Die Maker Technician 03/20/25 documented as of this encounter
--- OUTSIDE RECORDS SUMMARY | 2025-07-31 18:41 | XMS_ITS | Encounter Summary ---
Author Organization [place] Address [address] [facility] [place] [address] Care Team Providers Care Hyperion Analyst Name Role Phone Sarah Juares MD Primary Care Provider [phone] Mariana Acosta-C Unavailable + [phone] Purvi Jeong [facility] Unavailable [phone] Lucas Nuon MD Unavailable [phone] Meghan Cox [facility] Unavailable [phone] Encounter Details Date Type Department Care Team (Late st Contact Info) Description 01/25/2025 MyC Medical Advice [facility] [address] [place] [address] Anastasia Molina, RN Social History Tobacco Use Types Packs/Day Years Used Date Smoking Tobacco: Former Smokeless Tobacco: Never Alcohol Use Standard Drinks/Week Comments Not Currently 0 (1 standard drink = 0.6 oz pur e alcohol) rare PHQ-2 Answer Date Recorded PHQ-2 Score 0 11/15/2024 [place] Depression Scale Answer Date Recorded [place] Depression Score 1 07/06/2021 Last EPDS Self [...] AM CDT 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 Gender Identity Female 06/03/2022 7:36 AM CDT Sexual Orientation Straight 06/03/2022 7: 36 AM CDT documented as of this encounter Plan of Treatment Not on file documented as of this encounter Visit Diagnoses Not on filedocumented in this encounter Care Teams Hyperion Analyst Relationship Specialty [place] [address] [place] [address] PCP - General Family Medicine 03/13/25 Mariana Acosta PA-C [address] [place] [address] [id number] Assigned Surgical Provider 12/10/24 02/06/25 Purvi Jeong [facility] [address] [place] [address] [phone] Pharmacist Pharmacist Hospital Chief Financial Officer 01/03/25 Lucas Nuno MD [address] [place] [address] [phone] Assigned Surgical Provider 02/07/25 Meghan Cox [facility] [address] [place] [address] [phone] Pharmacist Pharmacist Hospital Chief Financial Officer 03/20/25 documented as of this encounter
--- OUTSIDE RECORDS SUMMARY | 2025-07-31 18:41 | XMS_ITS | Encounter Summary ---
Author Organization [place] Address [address] [facility] [place] [address] Care Team Providers Care Curling Machine Operator Name Role Phone Sarah Juares MD Primary Care Provider [phone] Lucas Nuno MD Unavailable [phone] Mariana Acosta PA-C Unavailable + [phone] Purvi Jeong [facility] Unavailable [phone] Lucas Nuno MD Unavailable [phone] Meghan Cox [facility] Unavailable Encounter Details Date Type Department Care Team (Late st Contact Info) Description 04/13/2024 MyC Medical Advice [facility] [address] [place] [address] Giuliana Masterson Social History Tobacco Use Types Packs/Day Years Used Date Smoking Tobacco: Former Smokeless Tobacco: Never Alcohol Use Standard Drinks/Week Comments Not Currently 0 (1 standard drink = 0.6 oz pur e alcohol) rare PHQ-2 Answer Date Recorded PHQ-2 Score 0 05/12/2023 [place] Depression Scale Answer Date Recorded [place] Depression Score 1 07/06/2021 Last EPDS Self Harm Result Not on file 07/06 Adolescent Education Answer Date Record ed Getting School Help Needed Not on file 07/10 Comments No Sex and Gender Information Value Date Recorded Sex Assigned at Female 06/03/2022 7:36 AM CDT 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 Gender Identity Female 06/03/2022 7:36 AM CDT Sexual Orientation Straight 06/03/2022 7: 36 AM CDT documented as of this encounter Plan of Treatment Not on file documented as of this encounter Visit Diagnoses Not on filedocumented in this encounter Care Teams Curling Machine Operator Relationship Specialty [place] [address] [place] [address] PCP - General Family Medicine 03/13/25 Lucas Nuno MD [address] [place] [address] [phone] Assigned Surgical Provider 03/09/24 12/09/24 Mariana Acosta PA-C [address] [phone] Assigned Surgical Provider 12/10/24 02/06/25 Purvi Jeong [facility] [address] [place] [phone] Pharmacist Pharmacist Frequency Checker 01/03/25 Lucas Nuno MD [address] [place] [address] [phone] Assigned Surgical Provider 02/07/25 Meghan Cox [facility] [address] [place] [phone] Pharmacist Pharmacist Frequency Checker 03/20/25 documented as of this encounter
--- OUTSIDE RECORDS SUMMARY | 2025-07-31 18:41 | XMS_ITS | Clinical Summary ---
Author Organization [employer] [facility] Address [facility] [place] [address] Care Team Providers Care Divisional Merchandising Manager Name Role Phone Pamela Jara DELICATESSEN GOODS STOCK CLERK Unavailable Unavaila Paulina Stubbs RN Unavailable [phone] Jose Tran MD Primary Care Provider + [phone] Allergies Active Allergy Reactions Criticality Noted Date [...] 2 mg by mouth two times daily. 024 Active pantoprazole (PROTONIX) 40 mg delayed-release tabletIndications :Chronic gastritis, presence of bleeding unspecified, unspecified gastritis type Take 1 Tablet (40 mg) by mouth two times daily before meals. 90 Tablet 3 024 Active escitalopram oxalate 10 mg tabletIndications :Anxiety Take [...] by mouth once daily. 90 Capsule Active ondansetron (ZOFRAN ODT) 8 mg disintegrating tabletIndications [...] for 7 days. 14 Capsule 2024 Active oxyCODONE (ROXICODONE) 5 mg immediate release tabletIndications :Thrombophlebitis of right arm,Pulmonary embolism, bilateral (HC) Take 1 Tablet (5 mg) by mouth every 4 hours if needed for Pain. 15 Tablet Active cyanocobalamin (VITAMIN B12) 1,000 mcg/mL injectionIndicati ons:B12 deficiency,Macroc ytic anemia Inject 1 mL (1,000 mcg) intramuscular one time for 1 dose. 1 mL 025 2024 Active cyanocobalamin (VITAMIN B12) 1,000 mcg sublingual tabletIndications :B12 deficiency Place 2.5 Tablets (2,500 mcg) under the tongue once daily for 7 days. 18 Tablet 06/25/20 25 11:21 AM CDT 025 2024 enoxaparin (LOVENOX) 150 mg/mL injectionIndicati ons:Pulmonary embolism, unspecified chronicity, unspecified pulmonary embolism type, unspecified whether acute cor pulmonale present (HC) Inject 150 mg subcutaneous every 12 hours for 14 days. 28 mL 06/25/20 25 11:21 AM CDT 025 2024 tiZANidine (ZANAFLEX) 4 mg tabletIndications :Muscle [...] hrs. 15 Tablet 06/25/20 11:21 AM CDT 025 2024 Discontinued(R eorder (E-cancel not sent)) tiZANidine (ZANAFLEX) 4 mg tabletIndications :Muscle spasm Take 1 Tablet (4 mg) by mouth every 6 hours if needed for Muscle Spasm. 30 Tablet 2 2024 Discontinued doxycycline monohydrate 100 mg capsuleIndication s:Rosacea Take 1 Capsule (100 mg) by mouth once daily. 90 Capsule 2024 Discontinued(* Availability/F ormulary change/Cost of medication) HYDROcodone-aceta minophen (5-325 mg/tablet)Indicat ions:Pulmonary embolism, unspecified chronicity, unspecified pulmonary embolism type, unspecified whether acute cor pulmonale present (HC) Take 1-2 Tablets by mouth 4 times daily if needed for Pain. Max acetaminophen dose: 4000 mg in 24 hrs. 15 Tablet 025 2024 Discontinued(* Allergic/Adver se Rxn/Side Effects) enoxaparin (LOVENOX) 150 mg/mL injectionIndicati ons:Pulmonary embolism, [...] t be different from the original. 10[place]13/2016 [facility] [place] (5'8; 41.61) Hugo Problem Noted Date [...] Date Type Department Care Team Description 07/31/2025 4:00 PM CDT [place] [facility] [place] [address] [facility] [place] [address] Jose Tran MD Medication Management (Pain and anxiety) 07/31/2025 Travel 07/30/2025 12:59 PM CDT - 07/30/2025 1:50 PM CDT Emergency [facility] - [address] [address] 07/26/2025 11:34 AM CDT - 07/27/2025 11:17 AM CDT Hospital Encounter [address] [address] Brooks Vidal MD Hospitalists, [facility] Zeynep Feliz MD [place], NEHA Wooten Nausea and vomiting, unspecified vomiting type (Primary Dx); Pulmonary embolism, unspecified chronicity, unspecified pulmonary embolism type, unspecified whether acute cor pulmonale present (HC) Discharge Disposition: Home Self Care 07/25/2025 5:35 PM CDT - 07/25/2025 10:56 PM CDT Emergency [address] [address] Amari Myrick MD Nausea and vomiting, unspecified vomiting type (Primary Dx); Hematuria, unspecified type; Anxiety; Retained tampon, initial encounter Discharge Disposition: Home Self Care 07/25/2025 Travel 07/20/2025 [place]ill [facility] [place] [address] [place] [address] Jose Tran MD Refill Request (doxycycline monohydrate 100 mg capsule /tiZANidine (ZANAFLEX) 4 mg tablet /HYDROcodone-acetam inophen (5-325 mg/tablet) /Levonox 150mg/) 07/20/2025 [address]ill [address] [place] [place] [address] Jose Tran MD Refill Request (Tizanidine) 07/16/2025 4:51 PM CDT - 07/16/2025 7:48 PM CDT Emergency [address] [address] Laurent Zuniga MD Syncope, unspecified syncope type (Primary Dx); Pleuritic chest pain Discharge Disposition: Home Self Care 07/16/2025 Travel 07/02/2025 11:40 AM CDT [address]medicine [address] [place] [address] Jose Tran MD Medication Management 07/02/2025 Travel 06/26/2025 Patient Outreach [address] [address] [place] [address] Lizzette Stark, ELIZABETH Primary RN Care Management; Hospital F/U (Pulmonary Embolism, DOD: 06/25/25, LACE+: 45) 06/21/2025 11:21 AM CDT - 06/25/2025 2:14 PM CDT Hospital Encounter [address] [address] Brooks Vidal MD Hospitalists, [facility] Brian Mosqueda MD Samimian, Pezhman, MD Pulmonary embolism, unspecified chronicity, unspecified pulmonary embolism type, unspecified whether acute cor pulmonale present (HC) (Primary Dx); B12 deficiency; Muscle spasm Discharge Disposition: Home Self Care 06/21/2025 Travel 06/15/2025 5:20 PM CDT - 06/15/2025 6:05 PM CDT Emergency [facility] - [place] [address] [address] 06/05/2025 12:20 PM CDT [place] [facility] [place] [address] [place] [address] Sarah Juares MD Weight (Insurance no longer covers Zepbound, and patient would like to discuss other options); Telehealth; Chest Pain (Follow up [place] emergency room visit recently) 06/05/2025 Travel 05/25/2025 [...] Smoking Tobacco: Former Cigarettes 1.1 5.8 2 013 - 2016 Smokeless Tobacco: Never Tobacco Cessation:Counseling [...] on file Legal Sex Female 7:30 AM 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 Gender Identity Not on file Sexual [...] 08/16/2025 1:00 PM CDT Nurse/Clinic Staff Only [facility] [address] [place] [address] 09/14/2025 1:00 PM 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 MAKER Nurse/Clinic Staff Only [facility] [address] [place] [address] 10/16/2025 1:00 PM 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 MAKER Nurse/Clinic Staff Only [facility] [address] [place] [address] 11/16/2025 1:00 PM 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 MAKER Nurse/Clinic Staff Only [facility] [address] [place] [address] 12/14/2025 1:00 PM 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 MAKER Nurse/Clinic Staff Only [facility] [address] [place] [address] 01/11/2026 1:00 PM CDT Nurse/Clinic Staff Only [facility] [address] [place] [address] 02/12/2026 1:00 PM CDT Nurse/Clinic Staff Only [facility] [address] [place] [address] 03/14/2026 1:00 PM CDT Nurse/Clinic Staff Only [facility] [address] [place] [address] Health Maintenance Due Date Last Done Comments [...] this topic Medical Devices Implanted Type Area Casket Inspector Device Identifier Shelf Expiration Date Model / Serial / Lot Mesh Ventral 60 Seamguard [place] Flex - [id number] Implanted:Qty: 1 on 10/13/2016 by Rajat Arias MD at [facility] N/A: Stomach W L Debary 01/15/2019 [id number] / / [id number] Mesh Ventral 60 Seamguard [place] Flex - [id number] Implanted:Qty: 3 on 10/13/2016 by Rajat Arias MD at [facility] N/A: Stomach W L Debary 07/17/2019 [id number] / / [id number] Mesh Ventral 60 Seamguard [place] Flex - [id number] Implanted:Qty: 1 on 10/13/2016 by Rajat Arias MD at [facility] N/A: Stomach W L Debary 12/15/2018 [id number] / / [id number] Procedures Procedure Name Priority Date/Time Associated Diagnosis [...] 12 LEAD STAT 06/21/2025 11:07 AM CDT 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 PRODUCER PROMOS THIN PREP PAP SCREEN IMAGED Routine 11/14/2018 3:00 PM 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 MAKER Uses contraception from Last 3 Months or Most Recently Relevant to Health Maintenance Results * ALT (SGPT) (07/27/2025 6:48 AM CDT) ALT (SGPT) 21 10 - 35 IU/L 07/27/2025 7:48 AM CDT [facility] Blood BLOOD SPECIMEN / Unknown Butterfly / Unknown 07/27/2025 6:48 AM CDT 07/27/2025 7:25 AM CDT us Zeynep Feliz MD CHEMISTRY Final Res ult Performing Organization Address City/[facility]/ZIP Co de Phone Number [address] [address] * AST (SGOT) (07/27/2025 6:48 AM CDT) AST (SGOT) 34 10 - 35 IU/L 07/27/2025 7:48 AM CDT [facility] Blood BLOOD SPECIMEN / Unknown Butterfly / Unknown 07/27/2025 6:48 AM CDT 07/27/2025 7:25 AM CDT us Zeynep Feliz MD CHEMISTRY Final Res ult Performing Organization Address City/[facility] Co de Phone Number [address] [address] * (ABNORMAL) HEMOGLOBIN (07/27/2025 5:29 AM CDT) Only the most recent of6 resultswithin the time period is included. HEMOGLOBIN 9.8(L) 12.0 - 16.0 g/dL 07/27/2025 6:05 AM CDT [facility] MCV 109(H) 80 - 100 fL 07/27/2025 6:05 AM CDT [facility] Blood BLOOD SPECIMEN / Unknown Venipuncture / Unknown 07/27/2025 5:29 AM CDT 07/27/2025 5:58 AM CDT us Zeynep Feliz MD HEMATOLOGY Final Res ult Performing Organization Address City/[facility]/ZIP Co de Phone Number [address] [address] * DRUG SCREEN RAPID URINE INHOUSE (07/27/2025 4:22 AM CDT) THC METABOLITES,RICHA L Not Detected Not Detected 07/27/2025 10:00 AM CDT [facility] PCP,QUAL Not Detected Not Detected 07/27/2025 10:00 AM CDT [facility] COCAINE,QUAL Not Detected Not Detected 07/27/20 10:00 AM CDT [facility] METHAMPHETAMINE , QUALITATIVE Not Detected Not Detected 07/27/2025 10:00 AM CDT [facility] OPIATES,QUAL Not Detected Not Detected 07/27/20 10:00 AM CDT [facility] AMPHETAMINE, QUALITATIVE Not Detected Not Detected 07/27/2025 10:00 AM CDT [facility] BENZODIAZEPINES ,QUAL Not Detected Not Detected 07/27/2025 10:00 AM CDT [facility] TRICYCLICS,QUAL Not Detected Not Detected 07/27 10:00 AM T [facility] METHADONE, QUALITATIVE Not Detected Not Detected 07/27/2025 10:00 AM CDT [facility] BARBITURATES,QU AL Not Detected Not Detected 07/27/2025 10:00 AM CDT [facility] OXYCODONE, QUALITATIVE Not Detected Not Detected 07/27/2025 10:00 AM T [facility] BUPRENORPHINE, QUALITATIVE Not Detected Not Detected 07/27/2025 10:00 AM T [facility] Urine URINE SPECIMEN / Unknown Non-Blood / Unknown 07/27/2025 4:22 AM CDT 07/27/2025 4:27 AM CDT [facility] - 07/27/2025 10:00 AM CDT Please Note: [...] clinically indicated, order PCP confirmation. us Tasha SOLOMON URINE Final Res ult Performing Organization Address City/[facility]/ZIP Co de Phone Number [address] [address] * (ABNORMAL) URINALYSIS MICROSCOPIC (07/27/2025 4:22 AM CDT) Only the most recent of2 resultswithin the time period is included. RBC 0-2 0-2, None Seen /HPF 07/27/2025 4:45 AM CDT [facility] WBC 11-25(A) 0-2, 3-5, None Seen /HPF 07/27/2025 4:45 AM CDT [facility] BACTERIA Rare None Seen, Rare, Few Bacteria/ HPF 07/27/2025 4:45 AM CDT [facility] EPITHELIAL CELLS Few None Seen, Few Epi/HPF 07/27/2025 4:45 AM CDT [facility] Mucus Present 07/27/2025 4:45 AM CDT [facility] WHITE CELL CLUMPS Present(A) (none) 07/27/2025 4:45 AM CDT [facility] Urine URINE SPECIMEN / Unknown Non-Blood / Unknown 07/27/2025 4:22 AM CDT 07/27/2025 4:27 AM CDT us Zeynep Feliz MD URINE Final Res ult Performing Organization Address City/[facility]/ZIP Co de Phone Number [address] [address] * (ABNORMAL) URINE CULTURE (07/27/2025 4:22 AM CDT) CULTURE RESULT(A) 07/29/2025 8:01 AM CDT [facility] LAB[facility]AT[facility] CULTURE <10,000 CFU/mL Escherichia coli 07/29/2025 8:01 AM CDT [facility] CULTURE <10,000 CFU/mL Multiple organisms probable contaminants 07/29/2025 8:01 AM CDT [facility] Urine URINE SPECIMEN / Unknown Non-Blood / Unknown 07/27/2025 4:22 AM CDT 07/27/2025 4:27 AM CDT Lorene Shanks NP MICROBIOLOGY Final Result [facility] [address] [place] [address], [place] * (ABNORMAL) UA W/ SEDIMENT EXAM REFLEXED PER CRITERIA (07/27/2025 4:22 AM CDT) Only the most recent of2 resultswithin the time period is included. COLOR Yellow Yellow Color 07/27/2025 4:33 AM CDT [facility] CLARITY Clear Clear Clarity 07/27/2025 4:[address] [facility] SPECIFIC GRAVITY,URINE >=1.030(A) 1.010, 1.015, 1.020, 1.025 07/27/2025 4:33 AM T [facility] PH,URINE 5.5 6.0, 7.0, 8.0, 5.5, 6.5, 7.5, 8.5 07/27/2025 4:33 AM T [facility] UROBILINOGEN,QU ALITATIVE Normal Normal EU/dl 07/27/2025 4:33 AM T [facility] PROTEIN, URINE Negative Negative mg/dL 07/27/2025 4:33 AM T [facility] GLUCOSE, URINE Negative Negative mg/dL 07/27/2025 4:[address] [facility] KETONES,URINE Negative Negative mg/dL 07/27/2025 4:[address] [facility] BILIRUBIN,URINE Abnormal(A) Negative 07/27/20 4:33 AM T [facility] Comment:A variety of metabol ites and/or medications may result in a positive bilirubin result. Clinical correlation is recommended. OCCULT BLOOD,URINE Moderate(A) Negative 07/27/2025 4:33 AM CDT [facility] NITRITE Negative Negative 07/27/2025 4:33 AM CDT [facility] LEUKOCYTE ESTERASE Negative Negative 07/27/2025 4:33 AM CDT [facility] Urine URINE SPECIMEN / Unknown Non-Blood / Unknown 07/27/2025 4:22 AM CDT 07/27/2025 4:27 AM CDT us Zeynep Feliz MD URINE Final Res ult Performing Organization Address City/[facility] de Phone Number [id number] [place] [address] * EKG 12 LEAD (07/26/2025 12:17 PM [...] NOW QTc 460 ms BEYOND NOW P [place] 25 degrees BEYOND NOW R [place] 59 degrees BEYOND NOW T [place] 14 degrees BEYOND NOW 07/26/2025 12:1 7 PM CDT 07/29/2025 10:42 PM CDT us Brooks Vidal MD EKG ORD Final R esult Performing Organization Address City/[facility] Co de Phone Number BEYOND NOW [place], [place] * (ABNORMAL) CBC WITH AUTO DIFFERENTIAL (07/26/2025 11:49 AM CDT) Only the most recent of4 resultswithin the time period is included. WHITE BLOOD COUNT 5.9 4.5 - 11.0 thou/cu mm 07/26/2025 12:39 PM CDT [facility] RED BLOOD COUNT 3.26(L) 4.00 - 5.20 mil/cu mm 07/26/2025 12:39 PM CDT [facility] HEMOGLOBIN 11.8(L) 12.0 - 16.0 g/dL 07/26/2025 12:39 PM CDT [facility] HEMATOCRIT 34.1 33.0 - 51.0 % 07/26/2025 12:39 PM CDT [facility] MCV 105(H) 80 - 100 fL 07/26/2025 12:39 PM CDT [facility] MCH 36.2(H) 26.0 - 34.0 pg 07/26/2025 12:39 PM CDT [facility] MCHC 34.6 32.0 - 36.0 g/dL 07/26/2025 12:39 PM CDT [facility] RDW 15.0 11.5 - 15.5 % 07/26/2025 12:39 PM CDT [facility] PLATELET COUNT 231 140 - 440 thou/cu mm 07/26/2025 12:39 PM CDT [facility] MPV 10.0 6.5 - 11.0 fL 07/26/2025 12:39 PM CDT [facility] NRBC 0.0 % 07/26/2025 12:39 PM CDT [facility] ABS NRBC 0.0 thou /cu mm 07/26/2025 12:39 PM CDT [facility] % NEUT 69.0 % 07/26/2025 12:39 PM CDT [facility] % LYMPH 21.4 % 07/26/2025 12:39 PM CDT [facility] % MONO 6.6 % 07/26/2025 12:39 PM CDT [facility] % EOS 2.4 % 07/26/2025 12:39 PM CDT [facility] % BASO 0.3 % 07/26/2025 12:39 PM CDT [facility] % IMMATURE GRAN (METAS,MYELOS,WI OS) 0.3 % 07/26/2025 12:39 PM CDT [facility] ABSOLUTE NEUTROPHILS 4.1 1.7 - 7.0 thou/cu mm 07/26/2025 12:39 PM CDT [facility] ABSOLUTE LYMPHOCYTES 1.3 0.9 - 2.9 thou/cu mm 07/26/2025 12:39 PM CDT [facility] ABSOLUTE MONOCYTES 0.4 <0.9 thou/cu mm 07/26/2025 12:39 PM CDT [facility] ABSOLUTE EOSINOPHILS 0.1 <0.5 thou/cu mm 07/26/2025 12:39 PM CDT [facility] ABSOLUTE BASOPHILS 0.0 <0.3 thou/cu mm 07/26/2025 12:39 PM CDT [facility] ABSOLUTE IMMATURE GRANULOCYTES(MET ,MYELOS,PROS) 0.0 <0.3 thou/cu mm 07/26/2025 12:39 PM CDT [facility] Blood BLOOD SPECIMEN / Unknown IV Start / Unknown 07/26/2025 11:49 AM CDT 07/26/2025 11:53 AM CDT Brooks Vidal MD HEMATOLOGY Final R esult Performing Organization Address City/[facility]/ZIP Co de Phone Number [address] [address] * EXTRA TUBE LIGHT GREEN (07/26/2025 11:49 AM CDT) Blood BLOOD SPECIMEN / Unknown IV Start / Unknown 07/26/2025 11:49 AM CDT 07/26/2025 11:53 AM CDT Brooks Vidal MD LABORATORY Final R esult Performing Organization Address City/[facility]/ZIP Co de Phone Number [address] [address] * EXTRA TUBE LAVENDER (07/26/2025 11:49 AM CDT) Blood BLOOD SPECIMEN / Unknown IV Start / Unknown 07/26/2025 11:49 AM CDT 07/26/2025 11:53 AM CDT us Brooks Vidal MD LABORATORY Final R esult Performing Organization Address City/[facility]/ZIP Co de Phone Number [address] [address] * EXTRA TUBE PERALTA (07/26/2025 11:49 AM CDT) Blood BLOOD SPECIMEN / Unknown IV Start / Unknown 07/26/2025 11:49 AM CDT 07/26/2025 11:53 AM CDT Brooks Vidal MD LABORATORY Final R esult Performing Organization Address City/[facility] Co de Phone Number [address] [address] * EXTRA TUBE BLUE (07/26/2025 11:49 AM CDT) Blood BLOOD SPECIMEN / Unknown IV Start / Unknown 07/26/2025 11:49 AM CDT 07/26/2025 11:53 AM CDT Brooks Vidal MD LABORATORY Final R esult Performing Organization Address City/[facility] Co de Phone Number [address] [address] * PROTIME-INR (07/26/2025 11:49 AM CDT) Only the most recent of2 resultswithin the time period is included. INR 1.0 <1.3 07/26/2025 1:34 PM CDT [facility] PROTIME 11.8 10.6 - 12.4 sec 07/26/2025 1:34 PM CDT [facility] Blood BLOOD SPECIMEN / Unknown IV Start / Unknown 07/26/2025 11:49 AM CDT 07/26/2025 11:53 AM CDT Narrative [facility] - 07/26/2025 1:34 PM CDT Therapeutic Range [...] HEMATOLOGY Final R esult Performing Organization Address City/[facility]/ZIP Co de Phone Number [facility] [address] [place] [address] * (ABNORMAL) HEPATIC FUNCTION PANEL (07/26/2025 11:49 AM CDT) Only the most recent of2 resultswithin the time period is included. ALBUMIN 4.1 4.0 - 4.9 g/dL 07/27/2025 12:13 AM CDT [facility] PROTEIN,TOTAL 6.7 6.0 - 8.0 g/dL 07/27/2025 12:13 AM CDT [facility] BILIRUBIN,TOTAL 1.0 0.0 - 1.2 mg/dL 07/27/2025 12:13 AM CDT [facility] BILIRUBIN,DIRECT 0.4(H) 0.0 - 0.2 mg/dL 07/27/2025 12:13 AM CDT [facility] BILIRUBIN,INDIRE CT 0.6 0.2 - 0.8 mg/dL 07/27/2025 12:13 AM CDT [facility] ALK PHOSPHATASE 57 35 - 104 IU/L 07/27/2025 12:13 AM CDT [facility] ALT (SGPT) 27 10 - 35 IU/L 07/27/2025 12:13 AM CDT [facility] AST (SGOT) 52(H) 10 - 35 IU/L 07/27/2025 12:13 AM CDT [facility] Blood BLOOD SPECIMEN / Unknown IV Start / Unknown 07/26/2025 11:49 AM CDT 07/26/2025 11:53 AM CDT us Zeynep Feliz MD CHEMISTRY Final Res ult Performing Organization Address City/[facility]/ZIP Co de Phone Number [phone] [place] [address] * (ABNORMAL) BASIC METABOLIC PANEL (07/26/2025 11:49 AM CDT) Only the most recent of4 resultswithin the time period is included. SODIUM 142 136 - 145 mmol/L 07/26/2025 1:42 PM CDT [facility] POTASSIUM 3.7 3.5 - 5.1 mmol/L 07/26/2025 1:42 PM CDT [facility] CHLORIDE 105 98 - 107 mmol/L 07/26/2025 1:42 PM CDT [facility] CO2,TOTAL 23 22 - 29 mmol/L 07/26/2025 1:42 PM CDT [facility] ANION GAP 14 5 - 18 07/26/2025 1:42 PM CDT [facility] GLUCOSE 85 70 - 99 mg/dL 07/26/2025 1:42 PM CDT [facility] CALCIUM 9.3 8.8 - 10.4 mg/dL 07/26/2025 1:42 PM CDT [facility] Comment: Reference ranges for this test were updated on 08/22/2024 to reflect our healthy population more accurately. Reference range changes are not retroactively applied to results, but previous results using the same methodology can be interpreted in the context of the new reference range. BUN 5(L) 6 - 20 mg/dL 07/26/2025 1:42 PM CDT [facility] CREATININE 0.71 0.50 - 0.90 mg/dL 07/26/2025 1:42 PM CDT [facility] BUN/CREAT RATIO 7(L) 10 - 20 1:42 PM CDT [facility] eGFR >90 >90 mL/min/1.7 3m2 07/26/2025 1:42 PM CDT [facility] Comment:As of 2021, eG FR is calculated [...] Brooks Vidal MD CHEMISTRY Final R esult [facility] [address] [place] [address] * CT ABDOMEN PELVIS STONE PROTOCOL WO [...] - 60.0 IU/L 07/25/2025 6:49 PM CDT [facility] Blood BLOOD SPECIMEN / Unknown IV Start / Unknown 07/25/2025 6:25 PM CDT 07/25/2025 6:29 PM CDT Amari Myrick MD CHEMISTRY Final Resu lt [address] [address] * CT CHEST PE STUDY (07/16/2025 6:48 [...] the right lower lobe (series number 5, [id number]). No focal airspace consolidation, pleural effusion, or [...] 6-10 ng/L ng/L 07/16/2025 6:40 PM CDT [facility] Blood BLOOD SPECIMEN / Unknown IV Start / Unknown 07/16/2025 5:57 PM CDT 07/16/2025 6:02 PM CDT Narrative [facility] - 07/16/2025 6:40 PM CDT hs-cTnT ([employer] [...] low risk in emergency department patient population. us Laurent Zuniga MD CHEMISTRY Final Resul t [facility] [address] [place] [address] * ,SERUM QUALITATIVE (07/16/2025 5:57 PM CDT) Only the most recent of2 resultswithin the time period is included. ,SERU M Negative Negative 07/16/2025 6:26 PM CDT [facility] Blood BLOOD SPECIMEN / Unknown IV Start / Unknown 07/16/2025 5:57 PM CDT 07/16/2025 6:02 PM CDT Laurent Zuniga MD CHEMISTRY Final Resul t Performing Organization Address [facility] Co de Phone Number [address] [address] * (ABNORMAL) PRO-BNP (07/16/2025 5:57 PM CDT) PRO-BNP 166(H) <125 pg/mL 07/16/2025 6:45 PM CDT [facility] Blood BLOOD SPECIMEN / Unknown IV Start / Unknown 07/16/2025 5:57 PM CDT 07/16/2025 6:02 PM CDT Narrative [facility] - 07/16/2025 6:45 PM CDT The following [...] of 72% for acute congestive heart failure. Laurent Zuniga MD SEND OUTS Final Resul t Performing Organization Address [facility]/ZIP Co de Phone Number [address] [address] * PLATELET COUNT (06/25/2025 6:45 AM CDT) Only the most recent of4 resultswithin the time period is included. PLATELET COUNT 195 140 - 440 thou/cu mm 06/25/2025 6:52 AM CDT [facility] MPV 8.6 6.5 - 11.0 fL 06/25/2025 6:52 AM CDT [facility] Blood BLOOD SPECIMEN / Unknown Butterfly / Unknown 06/25/2025 6:45 AM CDT 06/25/2025 6:50 AM CDT us Courtney Oneil MD HEMATOLOGY Final Result Performing Organization Address City/[facility]/ZIP Co de Phone Number [address] [address] * TROPONIN T (HS) ONE TIME (06/23/2025 6:37 AM CDT) Only the most recent of2 resultswithin the time period is included. TROPONIN T HS <6 6-10 ng/L ng/L 06/23/2025 7:18 AM CDT [facility] Blood BLOOD SPECIMEN / Unknown Venipuncture / Unknown 06/23/2025 6:37 AM CDT 06/23/2025 6:56 AM CDT us John Handy NP CHEMISTRY Final Result Performing Organization Address City/[facility]/ZIP Co de Phone Number [address] [address] * WHITE BLOOD COUNT (06/23/2025 3:55 AM CDT) WHITE BLOOD COUNT 5.2 4.5 - 11.0 thou/cu mm 06/23/2025 4:01 AM CDT [facility] NRBC 0.4 % 06/23/2025 4:01 AM CDT [facility] ABS NRBC 0.0 thou /cu mm 06/23/2025 4:[address] [facility] Blood BLOOD SPECIMEN / Unknown Venipuncture / Unknown 06/23/2025 3:55 AM CDT 06/23/2025 3:59 AM CDT us Courtney Oneil MD HEMATOLOGY Final Result Performing Organization Address [facility]/ZIP Co de Phone Number [address] [address] * CREATININE (06/23/2025 3:55 AM CDT) eGFR >90 >90 mL/min/1.7 3m2 06/23/2025 4:18 AM CDT [facility] Comment:As of 2021, eG FR is calculated by the CKD-EPI creatinine equation without race adjustment. eGFR can be influenced by muscle mass, exercise, and diet. The reported eGFR is an estimation only and is only applicable if the renal function is stable. CREATININE 0.76 0.50 - 0.90 mg/dL 06/23/2025 4:18 AM CDT [facility] Blood BLOOD SPECIMEN / Unknown Venipuncture / Unknown 06/23/2025 3:55 AM CDT 06/23/2025 3:59 AM CDT us Courtney Oneil MD CHEMISTRY Final Result Performing Organization Address City/[facility]/ZIP Co de Phone Number [address] [address] * (ABNORMAL) APTT (06/22/2025 3:49 PM CDT) Only the most recent of4 resultswithin the time period is included. APTT 59(H) 25 - 36 sec 06/22/2025 4:29 PM CDT [facility] Blood BLOOD SPECIMEN / Unknown Butterfly / Unknown 06/22/2025 3:49 PM CDT 06/22/2025 4:18 PM CDT Narrative [facility] - 06/22/2025 4:29 PM CDT Therapeutic Range: 59-89 seconds Brooks Vidal MD HEMATOLOGY Final R esult [facility] [address] [place] [address] * CT NECK SOFT TISSUE W (06/22/2025 [...] - 34.8 ng/mL 06/22/2025 8:21 PM CDT [facility] Blood BLOOD SPECIMEN / Unknown Butterfly / Unknown 06/22/2025 10:51 AM CDT 06/22/2025 11:05 AM CDT Narrative [facility] - 06/22/2025 8:21 PM CDT Biotin supplements may cause clinically significant interference for this test assay. If interference is suspected, it is strongly recommended that biotin is discontinued for at least one week prior to retesting. Courtney Oneil MD CHEMISTRY Final Result Performing Organization Address [facility] Co de Phone Number [facility] [address] [place] [address], [place] * (ABNORMAL) VITAMIN B12 (06/22/2025 10:51 AM CDT) [facility] VIT[facility]IN B12 <150(L) 232 - 1,245 pg/mL 06/22/2025 7:51 PM CDT [facility] Blood BLOOD SPECIMEN / Unknown Butterfly / Unknown 06/22/2025 10:51 AM CDT 06/22/2025 11:05 AM CDT Narrative [facility] - 06/22/2025 7:51 PM CDT Biotin supplements may cause clinically significant interference for this test assay. If interference is suspected, it is strongly recommended that biotin is discontinued for at least one week prior to retesting. Courtney Oneil MD CHEMISTRY Final Result Performing Organization Address [facility] Co de Phone Number [facility] [address] [address], [place] * ECHO TTE COMPLETE WO CONTRAST (06/22/2025 8:14 AM CDT) Pathologist [facility] AORTIC VALVE MEAN PG 3 mmHg LVEDD 5.0 cm EJECTION FRACTION 65 - 70% Anatomical Region Laterality Modality Ultrasound 06/22/2025 7:36 AM CDT Narrative 06/22/2025 11:43 AM CDT ECHOCARDIOGRAM KARO ALEMANCECILIA : 1995 30 years Study Date: 06/22/2025 7:36:23 AM Gender: F BP: 90/47 mmHg Height: 175.00 cm BSA: 2.35 m Weight: 123.00 kg Tech: NKM Referring MD: BRIAN MOSQUEDA Site: [facility] Reading Location: [facility]IP Patient Location: Inpatient. Procedure: 2D, Color Doppler, [...] . This study was interpreted by an [facility] accredited facility. Final Procedure Note Hesham Hough MD - 06/22/2025 ECHOCARDIOGRAM KARO WATSON : 1995 30 years Study Date: 06/22/2025 7:36:23 AM Gender: F BP: 90/47 mmHg Height: 175.00 cm BSA: 2.35 m Weight: 123.00 kg Tech: [facility] [[email or web address]] Referring MD: BRIAN MOSQUEDA Site: [facility] Reading Location: [facility]_IP Patient Location: Inpatient. Procedure: 2D, Color Doppler, [...] . This study was interpreted by an [facility] accredited facility. Final us Brian Mosqueda MD [...] Vidal MD Final R esult * (ABNORMAL) EXECUTIVE PRODUCER PROMOS THIN PREP PAP SCREEN IMAGED (11/14/2018 3:00 PM 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 MAKER) Case Report Gynecologic Cytology Report Case: [id number] Authorizing Provider: Mariluz Diamond MD Collected: 11/14/2018 1500 Ordering Location: [facility] Received: 11/14/2018 1528 Clinic First Screen: Milagro Johnson Pathologist: Octavio Zhang Jr., MD Specimen: EXECUTIVE PRODUCER PROMOS ThinPrep Vial Screening, Cervical 11/25/2018 5:50 PM 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 MAKER [facility] INTERPRETATION/ RESULT LOW GRADE SQUAMOUS INTRAEPITHELIAL LESION (LSIL)(A) (none) 11/25/2018 5:50 PM 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 MAKER [facility] at 1750 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 MAKER SPECIMEN ADEQUACY Satisfactory for evaluation Endocervical component present 11/25/2018 5:50 PM 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 MAKER [facility] HPV REQUEST HPV if ASCUS 11/25/2018 5:50 PM 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 MAKER [facility] Date of LMP 10/24/2018 11/25/2018 5:50 PM 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 MAKER [facility] Last Pap Date 06/26/16 11/25/2018 5:50 PM 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 MAKER [facility] Last Pap Result NIL 5:50 PM 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 MAKER [facility] Abnormal Pap or [place] Bx in last 5 years No 11/25/2018 5:50 PM 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 MAKER [facility] Menstrual Status Regular Periods 11/25/2018 5:50 PM 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 MAKER [facility] [place] Bx Done Today No 11/25/2018 5:50 PM 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 MAKER [facility] Additional Information None given 11/25/2018 5:50 PM 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 MAKER [facility] Automated Review Successful 11/25/2018 5:50 PM 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 MAKER [facility] Comment:Specimen processed s uccessfully by automated systems software engineer device, Reveal TechnologyPrep Imaging System, [employer] Note The pap test is a [...] lesions. Cytology is screened and interpreted at [facility] - [address], [place] [address] and [facility] - [address]; [place] [address] and [facility] - [address]; [place] [address] and [facility] [address]; [place] [address] 11/25/2018 5:50 PM 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 MAKER [facility] Other (Cervical) Non-Blood / Unknown 11/14/2018 3:00 PM 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 MAKER 11/14/2018 3:28 PM 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 MAKER us Mariluz Diamond MD PATHOLOGY/CYTOLOGY Final Re sult [facility] [address] [place] [address], from Last 3 Months or Most Recently Relevant to Health Maintenance Insurance [facility] CROSS OF NON-ND-ITS BLUE CROSS OF NON-ND-ITS [employer] INS Advance Directives * [...] 9:09 AM 10/14/2016 8:10 PM Care Teams Divisional Merchandising Manager Relationship Specialty [place] [address] [facility] [place] [address] PCP - General Family Practice 06/05/24 Pamela Jara NP Nurse Practitioner Nurse Practitioner - Adult 08/06/20 Paulina Mcgregor, RN Registered Nurse Registered Nurse 08/06/20
--- OUTSIDE RECORDS SUMMARY | 2025-07-31 18:41 | XMS_ITS | CCD ---
Author Name Interface, [email or web address] lity Address [address] [place] [address] [address] [address] Organization [facility] Address [address] [facility] [address] [place] [address] Care Team Providers Care Gluer Machine Setup Operator Name Role Phone Enzo Garg MD Unavailable [...]
--- OUTSIDE RECORDS SUMMARY | 2025-07-31 18:41 | XMS_ITS | Encounter Summary ---
Author Organization [facility] Address [facility] [place] [address] Care Team Providers Care Hospital Ward Clerk Name Role Phone [facility] Primary Care Provider Mariana Acosta PA-C Unavailable + [phone] Sarah Juares MD Primary Care Provider [phone] Lucas Nuno MD Unavailable [phone] Mariana Acosta PA-C Unavailable +[phone] Lucas Nuno MD Unavailable [phone] Mariana Acosta PA-C Unavailable +[phone] Purvi Jeong [facility] Unavailable [phone] Lucas Nuno MD Unavailable [phone] Meghan Cox [facility] Unavailable [phone] Encounter Details Date Type Department Care Team (Late st Contact Info) Description 02/09/2023 [facility] Marisol Jesus [facility] [address] 4th [place] [address] Paulina Denny RN Social History Tobacco Use Types Packs/Day Years Used Date Smoking Tobacco: Former Smokeless Tobacco: Never Alcohol Use Standard Drinks/Week Comments Not Currently 0 (1 standard drink = 0.6 oz pur e alcohol) rare [place] Depression Scale Answer Date Recorded [place] Depression Score 1 07/06/2021 Last EPDS Self Harm Result Not on file 07/06 Comments No Sex and Gender Information Value Date Recorded Sex Assigned at Female 06/03/2022 7:36 AM CDT 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 Gender Identity Female 06/03/2022 7:36 AM [...] documented as of this encounter Care Teams Hospital Ward Clerk Relationship Specialty Start Date End Date [facility], [facility] [address] [place] [address] PCP - General 01/02/14 03/23/23 [place] [address] [place] [address] PCP - General Family Medicine 03/13/25 Mariana Acosta PA-C [address] [address] Assigned Surgical Provider 09/05/22 12/09/23 Lucas Nuno MD [address] [facility] [address] [address] Assigned Surgical Provider 12/10/23 01/07/24 Mariana Acosta PA-C [address] [phone] Assigned Surgical Provider 01/08/24 03/08/24 Lucas Nuno MD [address] [place] [address] Assigned Surgical Provider 03/09/24 12/09/24 Mariana Acosta PA-C [address] [place] [address] Assigned Surgical Provider 12/10/24 02/06/25 Purvi Jeong [facility] [address] [place] [phone] Pharmacist Pharmacist Veneer Stock Grader 01/03/25 Lucas Nuno MD [address] [place] [address] Assigned Surgical Provider 02/07/25 Meghan Cox [facility] [address] [place] [address] Pharmacist Pharmacist Veneer Stock Grader 03/20/25 documented as of this encounter
--- OUTSIDE RECORDS SUMMARY | 2025-07-31 18:41 | XMS_ITS | Encounter Summary ---
Author Organization [facility] Address [address] [facility] [place] [address] Care Team Providers Care Binder Sorter Name Role Phone Sarah Juares MD Primary Care Provider [phone] Lucas Nuno MD Unavailable [phone] Mariana Acosta PA-C Unavailable + [phone] Purvi Jeong [facility] Unavailable [phone] Lucas Nuno MD Unavailable [phone] Meghan Cox [facility] Unavailable [phone] Encounter Details Date Type Department Care Team (Late st Contact Info) Description 03/15/2024 MyC Medical Advice [facility] [address] 4[address] [place] [address] Giuliana Masterson Social History Tobacco Use Types Packs/Day Years Used Date Smoking Tobacco: Former Smokeless Tobacco: Never Alcohol Use Standard Drinks/Week Comments Not Currently 0 (1 standard drink = 0.6 oz pur e alcohol) rare PHQ-2 Answer Date Recorded PHQ-2 Score 0 05/12/2023 [place] Depression Scale Answer Date Recorded [place] Depression Score 1 07/06/2021 Last EPDS Self Harm Result Not on file 07/06 Adolescent Education Answer Date Record ed Getting School Help Needed Not on file 07/10 Comments No Sex and Gender Information Value Date Recorded Sex Assigned at Female 06/03/2022 7:36 AM CDT 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 PRODUCT SPECIALIST Gender Identity Female 06/03/2022 7:36 AM CDT Sexual Orientation Straight 06/03/2022 7: 36 AM CDT documented as of this encounter Plan of Treatment Not on file documented as of this encounter Visit Diagnoses Not on filedocumented in this encounter Care Teams Binder Sorter Relationship Specialty [place] [address] [place] [address] PCP - General Family Medicine 03/13/25 Lucas Nuno MD [address] [place] [address] Assigned Surgical Provider 03/09/24 12/09/24 Mariana Acosta PA-C [address] [address] Assigned Surgical Provider 12/10/24 02/06/25 Purvi Jeong [facility] [address] [place] [address] Pharmacist Pharmacist Police Magistrate 01/03/25 Lucas Nuno MD [address] [place] [address] Assigned Surgical Provider 02/07/25 Meghan Cox [facility] [address] [place] [address] Pharmacist Pharmacist Police Magistrate 03/20/25 documented as of this encounter
--- OUTSIDE RECORDS SUMMARY | 2025-07-31 18:41 | XMS_ITS | Encounter Summary ---
Author Organization [facility] Address [address] [place] [address] Care Team Providers Care Retail Coordinator Name Role Phone Elsewhere, Pcp Primary Care Provider Unavailabl e Encounter Details Date Type Department Care Team (Late st Contact Info) Description 07/31/2025 Results Follow-Up Department of Vascular Medicine in [place], [place] [address] [place] [phone] Hang Arrington M.D. [address] [place] [phone] [place] [facility] Social History Tobacco Use Types Packs/Day Years Used Date Smoking Tobacco: Former Cigarettes 0 05/22/2014 - 10/14/2018 Passive Smoke Exposure: Current Smokeless Tobacco: Never Alcohol Use Standard Drinks/Week Comments Not Currently 3 (1 standard drink = 0.6 oz pure alcohol) Date nights maybe wednesday and wednesday [facility] Utilities Answer Date Recorded In the past 12 months has zlien, gas, oil, or water [employer] threatened to shut off services in your [...] living situation today? I have a [facility] place to live 07/03/2024 Comments Unknown Sex and Gender Information Value Date Recorded Sex Assigned at Not on file Legal Sex Female 6:06 PM PIE FILLING MIXER Gender Identity Not on file Sexual Orientation Not on file documented as of this encounter Plan of Treatment Upcoming Encounters Date Type Department Care Team (Late st Contact Info) Description 08/03/2025 2:30 PM CDT Appointment Department of Radiology, [facility], in [place], [place] [address] [place] [address] Hang Arrington M.D. [address] [place] [phone] Discharge Disposition: Home or Self Care 08/03/2025 3:30 PM CDT Appointment Department of Radiology, [facility], in [place], [place] [address] [place] [address] Hang Arrington M.D. [address] [place] [phone] 08/20/2025 10:00 AM PIE FILLING MIXER Telemedicine Department of Vascular Medicine in [place], [place] [address] [place] [address] Hang Arrington M.D. [address] [place] [address] documented as of this encounter Visit Diagnoses Not on filedocumented in this encounter Care Teams Retail Coordinator Relationship Specialty Start Date End Date Elsewhere, Pcp PCP - General Internal Medicine 04/12/24 documented as of this encounter
--- OUTSIDE RECORDS SUMMARY | 2025-07-31 18:41 | XMS_ITS | Encounter Summary ---
Author Organization [facility] Address [facility] [place] [address] Care Team Providers Care Director Software Name Role Phone [facility], [facility] Primary Care Provider Leatha Wagner APRN [facility] Unavailable [phone] Mariana Acosta-C Unavailable [phone] Sarah Juares MD Primary Care Provider [phone] Lucas Nuno MD Unavailable [phone] Mariana AcostaC Unavailable [phone] Lucas Nuno MD Unavailable [phone] Mariana AcostaC Unavailable [phone] Purvi Jeong [facility] Unavailable [phone] Lucas Nuno MD Unavailable +[phone] Meghan Cox [facility] Unavailable [phone] Encounter Details Date Type Department Care Team (Late st Contact Info) Description 06/02/2022 [facility] Medical Advice [facility] [address] 4th [place] [address] Rita Gillespie, EMT Social History Tobacco Use Types Packs/Day Years Used Date Smoking Tobacco: Former Smokeless Tobacco: Never Alcohol Use Standard Drinks/Week Comments Not Currently 0 (1 standard drink = 0.6 oz pur e alcohol) [place] Depression Scale Answer Date Recorded [place] Depression Score 1 07/06/2021 Last EPDS Self Harm Result Not on file 07/06 Comments No Sex and Gender Information Value Date Recorded Sex Assigned at Female 06/03/2022 7:36 AM CDT 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 Gender Identity Female 06/03/2022 7:36 AM [...] as of this encounter Care Teams Director Software Relationship Specialty Start Date End Date [facility], [facility] [address] [facility] [place] [address] PCP - General 01/02/14 03/23/23 [place] [address] [facility] [place] [address] PCP - General Family Medicine 03/13/25 Leatha Wagner APRN WIND FIELD SERVICE MANAGER [address] [place] [address] Assigned Surgical Provider 11/02/21 09/04/22 Mariana Acosta PA-C [address] [place] [address] Assigned Surgical Provider 09/05/22 12/09/23 Lucas Nuno MD [address] [address] Assigned Surgical Provider 12/10/23 01/07/24 Mariana Acosta PA-C [address] [address] Assigned Surgical Provider 01/08/24 03/08/24 Lucas Nuno MD [address] [address] Assigned Surgical Provider 03/09/24 12/09/24 Mariana Acosta PA-C [address] [address] Assigned Surgical Provider 12/10/24 02/06/25 Purvi Jeong [facility] [address] [place] [phone] Pharmacist Pharmacist Stroboroma Operator 01/03/25 Lucas Nuno MD [address] [place] [address] Assigned Surgical Provider 02/07/25 Meghan Cox [facility] [address] [place] [address] Pharmacist Pharmacist Stroboroma Operator 03/20/25 documented as of this encounter
--- OUTSIDE RECORDS SUMMARY | 2025-07-31 18:41 | XMS_ITS | Encounter Summary ---
Author Organization [facility] Address [address] [facility] [place] [address] Care Team Providers Care Quotation Clerk Name Role Phone Sarah Juares MD Primary Care Provider [phone] Lucas Nuno MD Unavailable [phone] Mariana Acosta PA-C Unavailable + [phone] Purvi Jeong [facility] Unavailable [phone] Lucas Nuno MD Unavailable [phone] Meghan Cox [facility] Unavailable [phone] Encounter Details Date Type Department Care Team (Late st Contact Info) Description 03/30/2024 MyC Medical Advice [facility] [address] [place] [address] Veronica Dickinson Social History Tobacco Use Types Packs/Day Years Used Date Smoking Tobacco: Former Smokeless Tobacco: Never Alcohol Use Standard Drinks/Week Comments Not Currently 0 (1 standard drink = 0.6 oz pur e alcohol) rare PHQ-2 Answer Date Recorded PHQ-2 Score 0 05/12/2023 [place] Depression Scale Answer Date Recorded [place] Depression Score 1 07/06/2021 Last EPDS Self Harm Result Not on file 07/06 Adolescent Education Answer Date Record ed Getting School Help Needed Not on file 07/10 Comments No Sex and Gender Information Value Date Recorded Sex Assigned at Female 06/03/2022 7:36 AM CDT 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 HELP DESK INTERN Gender Identity Female 06/03/2022 7:36 AM CDT Sexual Orientation Straight 06/03/2022 7: 36 AM CDT documented as of this encounter Plan of Treatment Not on file documented as of this encounter Visit Diagnoses Not on filedocumented in this encounter Care Teams Quotation Clerk Relationship Specialty [place] [address] [place] [address] PCP - General Family Medicine 03/13/25 Lucas Nuno MD [address] [place] [address] Assigned Surgical Provider 03/09/24 12/09/24 Mariana Acosta PA-C [address] [place] [address] Assigned Surgical Provider 12/10/24 02/06/25 Purvi Jeong [facility] [address] [place] [address] Pharmacist Pharmacist Staffing And Scheduling Coordinator 01/03/25 Lucas Nuno MD [address] [place] [address] Assigned Surgical Provider 02/07/25 Meghan Cox [facility] [address] [place] [address] Pharmacist Pharmacist Staffing And Scheduling Coordinator 03/20/25 documented as of this encounter
--- OUTSIDE RECORDS SUMMARY | 2025-07-31 18:41 | XMS_ITS | Encounter Summary ---
Author Organization [place] Address [address] [facility] [place] [address] Care Team Providers Care Applications Engineer Manufacturing Name Role Phone Mariana Acosta-Noreen Unavailable + [phone] Sarah Juares MD Primary Care Provider [phone] Lucas Nuno MD Unavailable [phone] Mariana Acosta-C Unavailable + [phone] Lucas Nuno MD Unavailable [phone] Mariana Acosta-C Unavailable + [phone] Purvi Jeong [facility] Unavailable [phone] Lucas Nuno MD Unavailable [phone] Meghan Cox [facility] Unavailable [phone] Encounter Details Date Type Department Care Team (Late st Contact Info) Description 10/07/2023 [facility] [place] [address] [place] [address] Giuliana Masterson Social History Tobacco Use Types Packs/Day Years Used Date Smoking Tobacco: Former Smokeless Tobacco: Never Alcohol Use Standard Drinks/Week Comments Not Currently 0 (1 standard drink = 0.6 oz pur e alcohol) rare PHQ-2 Answer Date Recorded PHQ-2 Score 0 05/12/2023 [place] Depression Scale Answer Date Recorded [place] Depression Score 1 07/06/2021 Last EPDS Self Harm Result Not on file 07/06 Adolescent Education Answer Date Record ed Getting School Help Needed Not on file 07/10 Comments No Sex and Gender Information Value Date Recorded Sex Assigned at Female 06/03/2022 7:36 AM CDT 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 Gender Identity Female 06/03/2022 7:36 AM CDT Sexual Orientation Straight 06/03/2022 7: 36 AM CDT documented as of this encounter Plan of Treatment Not on file documented as of this encounter Visit Diagnoses Not on filedocumented in this encounter Care Teams Applications Engineer Manufacturing Relationship Specialty [place] [address] [place] [address] PCP - General Family Medicine 03/13/25 Mariana Acosta PA-C [address] [address] Assigned Surgical Provider 09/05/22 12/09/23 Lucas Nuno MD [address] [address] Assigned Surgical Provider 12/10/23 01/07/24 Mariana Acosta PA-C [address] [address] Assigned Surgical Provider 01/08/24 03/08/24 Lucas Nuno MD [address] [address] Assigned Surgical Provider 03/09/24 12/09/24 Mariana Acosta PA-C [address] [place] [address] Assigned Surgical Provider 12/10/24 02/06/25 Purvi Jeong RPH [address] [place], [place] [phone] Pharmacist Pharmacist Warehouse Shipping Associate 01/03/25 Lucas Nuno MD [address] [place] [address] [phone] Assigned Surgical Provider 02/07/25 Meghan Cox RPH [address] [place], [place] 197455 Pharmacist Pharmacist Warehouse Shipping Associate 03/20/25 documented as of this encounter
--- OUTSIDE RECORDS SUMMARY | 2025-07-31 18:41 | XMS_ITS | Encounter Summary ---
Author Organization [place] Address [address] [place] [address] Care Team Providers Care Media Reporter Name Role Phone Mariana Acosta PA-C Unavailable + [phone] Sarah Juares MD Primary Care Provider [phone] Lucas Nuno MD Unavailable [phone] Mariana Acosta PA-C Unavailable Lucas Nuno MD Unavailable [phone] Mariana Acosta PA-C Unavailable + [phone] Purvi Jeong [facility] Unavailable [phone] Lucas Nuno MD Unavailable [phone] Meghan Cox [facility] Unavailable [phone] Encounter Details Date Type Department Care Team (Late st Contact Info) Description 10/20/2023 [facility] [place] [facility] [place] [address] [facility] [address] 4th [place] [address] Mariana Acosta PA-C [address] [facility] [address] [place] [address] Social History Tobacco Use Types Packs/Day Years Used Date Smoking Tobacco: Former Smokeless Tobacco: Never Alcohol Use Standard Drinks/Week Comments Not Currently 0 (1 standard drink = 0.6 oz pur e alcohol) rare PHQ-2 Answer Date Recorded PHQ-2 Score 0 05/12/2023 [place] Depression Scale Answer Date Recorded [place] Depression Score 1 07/06/2021 Last EPDS Self Harm Result Not on file 07/06 Adolescent Education Answer Date Record ed Getting School Help Needed Not on file 07/10 Comments No Sex and Gender Information Value Date Recorded Sex Assigned at Female 06/03/2022 7:36 AM CDT 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 Gender Identity Female 06/03/2022 7:36 AM CDT Sexual Orientation Straight 06/03/2022 7: 36 AM CDT documented as of this encounter Plan of Treatment Not on file documented as of this encounter Visit Diagnoses Not on filedocumented in this encounter Care Teams Media Reporter Relationship Specialty [place] [address] [facility] [place] [address] PCP - General Family Medicine 03/13/25 Mariana Acosta PA-C [address] [place] [address] Assigned Surgical Provider 09/05/22 12/09/23 Lucas Nuno MD [address] [place] [address] Assigned Surgical Provider 12/10/23 01/07/24 Mariana Acosta PA-C [address] [place] [address] Assigned Surgical Provider 01/08/24 03/08/24 Lucas Nuno MD [address] [place] [address] Assigned Surgical Provider 03/09/24 12/09/24 Mariana Acosta PA-C [address] [address] Assigned Surgical Provider 12/10/24 02/06/25 Purvi Jeong [facility] [address] [place] [address] Pharmacist Pharmacist Terrazzo Finisher Helper 01/03/25 Lucas Nuno MD [address] [place] [address] Assigned Surgical Provider 02/07/25 Meghan Cox [facility] [address] [place] [address] Pharmacist Pharmacist Terrazzo Finisher Helper 03/20/25 documented as of this encounter
--- OUTSIDE RECORDS SUMMARY | 2025-07-31 18:41 | XMS_ITS | Encounter Summary ---
Author Organization [place] Address [facility] [place] [address] Care Team Providers Care Advertising Executive Name Role Phone [facility] [place] Primary Care Provider Mariana Acosta PA-C Unavailable + [phone] Sarah Juares MD Primary Care Provider [phone] Lucas Nuno MD Unavailable [phone] Mariana Acosta PA-C Unavailable +[phone] Lucas Nuno MD Unavailable [phone] Mariana Acosta PA-C Unavailable [phone] Purvi Jeong [facility] Unavailable [phone] Lucas Nuno MD Unavailable [phone] Meghan Cox [facility] Unavailable [phone] Encounter Details Date Type Department Care Team (Late st Contact Info) Description 02/17/2023 [facility] [address]th [place] [address] Paulina Denny RN Social History Tobacco Use Types Packs/Day Years Used Date Smoking Tobacco: Former Smokeless Tobacco: Never Alcohol Use Standard Drinks/Week Comments Not Currently 0 (1 standard drink = 0.6 oz pur e alcohol) rare [place] Depression Scale Answer Date Recorded [place] Depression Score 1 07/06/2021 Last EPDS Self Harm Result Not on file 07/06 Comments No Sex and Gender Information Value Date Recorded Sex Assigned at Female 06/03/2022 7:36 AM CDT 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 Gender Identity Female 06/03/2022 7:36 AM [...] documented as of this encounter Care Teams Advertising Executive Relationship Specialty Start Date End Date [facility], [facility] [address] [place] [address] PCP - General 01/02/14 03/23/23 [place] [address] [place] [address] PCP - General Family Medicine 03/13/25 Mariana Acosta PA-C [address] [address] Assigned Surgical Provider 09/05/22 12/09/23 Lucas Nuno MD [facility] [address] [address] Assigned Surgical Provider 12/10/23 01/07/24 Mariana Acosta PA-C [address] [phone] Assigned Surgical Provider 01/08/24 03/08/24 Lucas Nuno MD [address] [place] [address] Assigned Surgical Provider 03/09/24 12/09/24 Mariana Acosta PA-C [address] [place] [address] Assigned Surgical Provider 12/10/24 02/06/25 Purvi Jeong [facility] [address] [place] [address] [phone] Pharmacist Pharmacist Mechanical Drawing Teacher 01/03/25 Lucas Nuno MD [address] [place] [address] Assigned Surgical Provider 02/07/25 Meghan Cox [facility] [address] [place] [address] Pharmacist Pharmacist Mechanical Drawing Teacher 03/20/25 documented as of this encounter
--- OUTSIDE RECORDS SUMMARY | 2025-07-31 18:41 | XMS_ITS | Encounter Summary ---
Author Organization [place] Address [address] [facility] [place] [address] Care Team Providers Care Tire Installer Name Role Phone Sarah Juares MD Primary Care Provider Purvi Jeong [facility] Unavailable [phone] Lucas Nuno MD Unavailable [phone] Meghan Cox [facility] Unavailable [phone] Encounter Details Date Type Department Care Team (Late st Contact Info) Description 02/22/2025 [facility] Medical Advice [facility] [address] [address] Nahed Fay Social History Tobacco Use Types Packs/Day Years Used Date Smoking Tobacco: Former Smokeless Tobacco: Never Alcohol Use Standard Drinks/Week Comments Not Currently 0 (1 standard drink = 0.6 oz pur e alcohol) rare PHQ-2 Answer Date Recorded PHQ-2 Score 0 02/22/2025 [place] Depression Scale Answer Date Recorded [place] Depression Score 1 07/06/2021 Last EPDS Self [...] AM CDT 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 Gender Identity Female 06/03/2022 7:36 AM CDT Sexual Orientation Straight 06/03/2022 7 :36 AM CDT documented as of this encounter Plan of Treatment Not on file documented as of this encounter Visit Diagnoses Not on filedocumented in this encounter Care Teams Tire Installer Relationship Specialty [place] [address] [place] [address] PCP - General Family Medicine 03/13/25 Purvi Jeong [facility] [address] [place] [address] [phone] Pharmacist Pharmacist Vp Lab 01/03/25 Lucas Nuno MD [address] [place] [address] [phone] Assigned Surgical Provider 02/07/25 Meghan Cox [place] [address] [place] [address] [phone] Pharmacist Pharmacist Vp Lab 03/20/25 documented as of this encounter
--- OUTSIDE RECORDS SUMMARY | 2025-07-31 18:41 | XMS_ITS | Encounter Summary ---
Author Organization [place] Address [address] [facility] [place] [address] Care Team Providers Care Maintenance Shop Clerk Name Role Phone Sarah Juares MD Primary Care Provider [phone] Lucas Nuno MD Unavailable [phone] Mariana Acosta PA-C Unavailable + [phone] Purvi Jeong [facility] Unavailable [phone] Lucas Nuno MD Unavailable [phone] Meghan Cox [facility] Unavailable [phone] Encounter Details Date Type Department Care Team (Late st Contact Info) Description 11/15/2024 [facility] Medical Advice [facility] [place] [address] [facility] [address] 4th [place] [address] Mariana Acosta PA-C [address] [facility] [address] [place] [address] Social History Tobacco Use Types Packs/Day Years Used Date Smoking Tobacco: Former Smokeless Tobacco: Never Alcohol Use Standard Drinks/Week Comments Not Currently 0 (1 standard drink = 0.6 oz pur e alcohol) rare PHQ-2 Answer Date Recorded PHQ-2 Score 0 11/15/2024 [place] Depression Scale Answer Date Recorded [place] Depression Score 1 07/06/2021 Last EPDS Self Harm Result Not on file 07/06 Adolescent Education Answer Date Record ed Getting School Help Needed Not on file 07/10 Comments No Sex and Gender Information Value Date Recorded Sex Assigned at Female 06/03/2022 7:36 AM CDT 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 Gender Identity Female 06/03/2022 7:36 AM CDT Sexual Orientation Straight 06/03/2022 7: 36 AM CDT documented as of this encounter Plan of Treatment Not on file documented as of this encounter Visit Diagnoses Not on filedocumented in this encounter Care Teams Maintenance Shop Clerk Relationship Specialty [place] [address] [place] [address] PCP - General Family Medicine 03/13/25 Lucas Nuno MD [address] [place] [address] 160535 Assigned Surgical Provider 03/09/24 12/09/24 Mariana Acosta PA-C [address] [place] [address] [phone] Assigned Surgical Provider 12/10/24 02/06/25 Purvi Jeong [facility] [address] [place] [address] [phone] Pharmacist Pharmacist Director Hematology 01/03/25 Lucas Nuno MD [address] [place] [address] [phone] Assigned Surgical Provider 02/07/25 Meghan Cox [facility] [address] [place] [address] [phone] Pharmacist Pharmacist Director Hematology 03/20/25 documented as of this encounter
--- OUTSIDE RECORDS SUMMARY | 2025-07-31 18:41 | XMS_ITS | Encounter Summary ---
Author Organization [place] Address [address] [facility] [place] [address] Care Team Providers Care Organic Preparation Analyst Name Role Phone Sarah Juares MD Primary Care Provider [phone] Lucas Nuno MD Unavailable [phone] Mariana Acosta PA-C Unavailable + [phone] Purvi Jeong [facility] Unavailable [phone] Lucas Nuno MD Unavailable [phone] Meghan Cox [facility] Unavailable [phone] Encounter Details Date Type Department Care Team (Late st Contact Info) Description 11/17/2024 [facility] Medical Advice [facility] Pharm D Project [address] [place] [address] [place] Social History Tobacco Use Types Packs/Day Years Used Date Smoking Tobacco: Former Smokeless Tobacco: Never Alcohol Use Standard Drinks/Week Comments Not Currently 0 (1 standard drink = 0.6 oz pur e alcohol) rare PHQ-2 Answer Date Recorded PHQ-2 Score 0 11/15/2024 [place] Depression Scale Answer Date Recorded [place] Depression Score 1 07/06/2021 Last EPDS Self Harm Result Not on file 07/06 Adolescent Education Answer Date Record ed Getting School Help Needed Not on file 07/10 Comments No Sex and Gender Information Value Date Recorded Sex Assigned at Female 06/03/2022 7:36 AM CDT 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 Gender Identity Female 06/03/2022 7:36 AM CDT Sexual Orientation Straight 06/03/2022 7: 36 AM CDT documented as of this encounter Plan of Treatment Not on file documented as of this encounter Visit Diagnoses Not on filedocumented in this encounter Care Teams Organic Preparation Analyst Relationship Specialty [place] [address] [place] [address] PCP - General Family Medicine 03/13/25 Lucas Nuno MD [address] [place] [address] Assigned Surgical Provider 03/09/24 12/09/24 Mariana Acosta PA-C [address] [place] [address] Assigned Surgical Provider 12/10/24 02/06/25 Purvi Jeong [facility] [address] [place] [phone] Pharmacist Pharmacist Naphthalene Operator Helper 01/03/25 Lucas Nuno MD [address] [place] [address] Assigned Surgical Provider 02/07/25 Meghan Cox [facility] [address] [place] [phone] Pharmacist Pharmacist Naphthalene Operator Helper 03/20/25 documented as of this encounter
--- OUTSIDE RECORDS SUMMARY | 2025-07-31 18:41 | XMS_ITS ---
Author Name Interface, [id number] lity Address [address] [facility] [address] [address] Organization [facility] Address [address] [facility] [address] [address] Support Name Relationship Address Phone FREEDOM ALEMAN [...] 1 HR 07/07/2023 APPOINTMENT CHART CHECK 5 [place] N 07/05/2023 APPOINTMENT [facility] LOW UP 20 MIN 07/05/2023 APPOINTMENT [...] 10.0 130.0 5.80 Low FINAL Enzo Garg [facility], [facility] [address] [phone] 0 Phone: () - 07/05 Iron profi le TIBC ug/dL 250.0 425.0 410 FINAL Enzo Garg [facility], [address] [phone] 0 Phone: () - 07/05 Iron profi le Iron ug/dL 50.0 175.0 43 Low FINAL Enzo Garg [facility], [address] [facility] [address] [phone] 0 Phone: () - 07/05 Iron profi le Unbou nd iron capac ity ug/dL 75.0 410.0 367 FINAL Enzo Garg [place] [address] [phone] 0 Phone: () - 07/05 Iron profi le Iron, % satur ation % 20.0 55.0 10 Low FINAL Enzo Garg [facility], [address] [phone] 0 Phone: () - 07/05 CBC w/ auto diff WBC K/uL 3.0 8.9 7.1 FINAL [facility] [place], [address] [place] [phone] 0 Phone: () - 07/05 CBC w/ auto diff HGB g/dL 11.3 15.2 11.5 FINAL [facility] [place], [address] [place] [phone] 0 Phone: () - 07/05 CBC w/ auto diff PLT K/uL 113.0 364.0 302 FINAL [facility] [place], [address] [place] [phone] 0 Phone: () - 07/05 CBC w/ auto diff Fly # (ANC) K/uL 1.6 6.6 4.5 FINAL [facility] [place], [address] [place] [phone] 0 Phone: () - 07/05 CBC w/ auto diff Fly % % 43.0 74.0 62.6 FINAL [facility] [place], [address] [place] [phone] 0 Phone: () - 07/05 CBC w/ auto diff IG % % 0.0 0.5 0.3 FINAL [facility] [place], [address] [place] [phone] 0 Phone: () - 07/05 CBC w/ auto diff IG # K/uL 0.0 0.03 0.02 FINAL [facility] [place], [address] [place] [phone] 0 Phone: () - 07/05 CBC w/ auto diff LY % % 14.0 41.0 29.7 FINAL [facility] [place], [address] [place] [phone] 0 Phone: () - 07/05 CBC w/ auto diff MO % % 6.0 15.0 5.9 Low FINAL [facility] [place], [address] [place] [phone] 0 Phone: () - 07/05 CBC w/ auto diff EO % % 0.0 7.0 1.4 FINAL [facility] [place], [address] [place] [phone] 0 Phone: () - 07/05 CBC w/ auto diff BA % % 0.0 2.0 0.1 FINAL [facility] [place], [address] [place] [phone] 0 Phone: () - 07/05 CBC w/ auto diff LY # K/uL 0.4 3.6 2.1 FINAL [facility] [place], [address] [place] [phone] 0 Phone: () - 07/05 CBC w/ auto diff MO # K/uL 0.2 1.3 0.4 FINAL [facility] [place], [address] [place] [phone] 0 Phone: () - 07/05 CBC w/ auto diff EO # K/uL 0.0 0.6 0.1 FINAL [facility] [place], [address] [place] [phone] 0 Phone: () - 07/05 CBC w/ auto diff BA # K/uL 0.0 0.2 0.0 FINAL [facility] [place], [address] [place] [phone] 0 Phone: () - 07/05 CBC w/ auto diff NRBC % #/100W BC 0.0 0.2 0.0 FINAL [facility] [place], [address] [place] [phone] 0 Phone: () - 07/05 CBC w/ auto diff RBC M/uL 3.9 5.1 3.81 Low FINAL [facility] [place], [address] [place] [phone] 0 Phone: () - 07/05 CBC w/ auto diff HCT % 35.0 48.0 35.8 FINAL [facility] [place], [address] [place] [phone] 0 Phone: () - 07/05 CBC w/ auto diff MCV fL 80.0 104.0 94.0 FINAL [facility] [place], [address] [place] [phone] 0 Phone: () - 07/05 CBC w/ auto diff MCH pg 26.0 35.0 30.2 FINAL [facility] [place], [address] [place] [phone] 0 Phone: () - 07/05 CBC w/ auto diff MCHC g/dL 30.0 35.0 32.1 FINAL [facility] [place], [address] [place] [phone] 0 Phone: () - 07/05 CBC w/ auto diff MPV fL 9.5 13.4 9.1 Low FINAL [facility] [place], [address] [place] [phone] 0 Phone: () - 07/05 CBC w/ auto diff RDW % 11.4 16.1 15.70 FINAL [facility] [place], [address] [place] [phone] 0 Phone: () - 01/19 [facility] other lab See car salesman d 02/17 [facility] other lab See car salesman d 03/14 [facility] other lab See car salesman d 03/27 [facility] other lab See attache patel 04/02 [facility] other lab See attache patel 04/06 [facility] other lab See attache patel Medications Date [...] Onc Consult <html><head></head><body><div style=text-align:center><span style=font- size:9px></span><span style=font-size:12px><span style=font-family:Ute,Helvetica,sans-serif><span class=clinicalNote MacroHighlighted id=[id number] macroname=PracticeLetterhead&quot ; spantype=macro title=#PracticeLetterhead><img egpwkv=962 src=live/fileDownload?type=1&mdmcScxtyuwcyfWh=[id number] psnmd=232> </span></span></span>
</div><span style=font-size:12px"><span style=font-family:Ute,Helvetica,sans-serif>
<strong>Patient Name: </strong><span class=clinicalNoteMacroHighlighted id=&quo t;[id number] macroname=PatientName spantype=macro title=&q uot;#PatientName>KALEB ALEMAN CARDONA</span>
<strong>MRN: &lt ;/strong><span class=clinicalNoteMacroHighlighted id=[id number]& quot; macroname=PatientMRN spantype=macro title=#PatientMRN>[id number]</span>
<strong>Date of : </strong><span class=&qu ot;clinicalNoteMacroHighlighted id=[id number] macroname=Patient DateOfBirth spantype=macro title=#PatientDateOfBirth>1995< /span>
<strong>Date of Service: </strong><span class=clini calNoteMacroHighlighted id=[id number] macroname=EffectiveDate&qu ot; spantype=macro title=#EffectiveDate>07/05/2023</span></span& gt;</span>
<strong>Attending Physician: </strong><span class=clinicalNoteMacroHighlighted id=[id number] macroname= AttendingPhysician spantype=macro title=#AttendingPhysician>Enzo Garg (Hematology/Oncology)</span>
<strong>Referring Physician:</strong&g t; <span class=clinicalNoteMacroHighlighted id=[id number]& quot; macroname=ReferringPhysician spantype=macro title=#ReferringPhys ician> </span>

<div style=text-align:center><span style=font-size:12px><span style=font-family:Ute,Helvetica,sans- serif><strong>INITIAL HEMATOLOGY/MEDICAL ONCOLOGY CONSULTATIO N</strong></span></span>

</div><span style=font-size:12px><span style=font-family:Ute,Helvetica,sans-serif><span style=font- size:12px><span style=font-family:Ute,Helvetica,sans-serif&g t;</span></span><span class=clinicalNoteSectionShowSeparators clinicalNoteSecti onVisible id=[id number] internalbreaksection=false origi [...] to continue oral iron

<span style=font-size:12px&quo t;><span style=font-family:Ute,Helvetica,sans-serif><span class=clin icalNoteSectionShowSeparators clinicalNoteSectionVisible id=[id number]" internalbreaksection=false originalname=Advanced Care [...] pain planindicated for today's visit</span><span style=font-size:12px><span st yle=font-family:Ute,Helvetica,sans-serif>
<span style=font-size:1 2px><span style=font-family:Ute,Helvetica,sans-serif><span style=&qu ot;font-size:12px><span style=font-family:Ute,Helvetica,sans-serif><span style=font-size:12px><span style=font-family:Ute,Helvetica,sans-serif ><span style=font-family:Ute><span class=clinicalNoteSectionShowSeparators clinicalNoteSectionVisible id=[id number] internalbreaks ection=false originalname=Smoking Status recognizeconcepts=true spantype=section suppressempty=true>Smoking Status</span>
Smoking Status: <span class=clinicalNoteMacroHighlighted id=[id number] macroname=PatientSmokingStatus parameters=ValueIfNull:Not recor ded. spantype=macro title=#PatientSmokingStatus(ValueIfNull:Not recorded.)&q uot;>Smoking Tobacco : Former smoker, stopped smokin; Smokeless Tobacco : Never used smokeless tobacco; Vaping : Current vape user</span></span></span></span></spa n></span></span></span></span></span>

<span style=font-size:12px><span style=font-family:Ute,Helvetica,sans-serif><span style=font- size:12px><span style=font-family:Ute,Helvetica,sans-serif><span class=clinicalNoteSectionShowSeparators clinicalNoteSectionVisible" id=[id number] internalbreaksection=false originalname=&q uot;History of [...] History of Present Illness.
<span style=font-size:12px><span style=&q uot;font-family:Ute,Helvetica,sans-serif><span class=clinicalNoteSectionShowSeparators clinicalNoteSectionVisible id=[id number] internalbreaksection=false originalname=Past Medical History recognizeconcepts=true spantype=section suppressempty=false>Past Medical and Surgical History&l t;/span></span></span>
History of iron deficiency anemia

<span style=font-size:12px><span style=font-family:Ute,Helvetica,sans-s erif><span class=clinicalNoteSectionShowSeparators clinicalNoteSectionVisible" id=[id number] internalbreaksection=false originalname=Current Medications [...] Subcutaneous)</td> <td width=40%>07/05/2023</td> </tr> </tbody></table></span></span></span>
<span style=font-size:12px><span style=font-family:Ute,Helvetica,sans-serif><span class=&quo t;clinicalNoteSectionShowSeparators clinicalNoteSectionVisible id=[id number] internalbreaksection=false originalname=Allergies recognizeconcepts=true spantype=section suppressempty=false>Allergies</span>
<span class=clinicalNoteMacroHighlighted id=[id number] macroname=AllergyTable spantype=macro title=#AllergyTable"><table border=1 style=width:100%> <tbody> <tr> <td colspan=4>Current Allergy List</td> </tr> <tr> <td width="100px>Allergy Name</td> <td xsxuu=984mo>Severity</td> <td waskp=793ne>Status</td> <td cdwgp=034zv>Recording Date</td> </tr> <tr> <td ssakv=646od>NSAIDS (Non- Steroidal Anti-Inflammatory Drug)</td> <td uaujo=339vy>
</td> <td iaujh=924aw>Active</td> <td nvfay=897wv>07/05/2023</td> </tr> <tr> <td ylfwr=677kc>Zithromax</td> <td vccie=422be>
</td> <td fvddv=327jg>Active</td> <td nfmfz=076um">07/05/2023</td> </tr> </tbody></table></span></span></span>
<span style=font-size:12px><span style=font-family:Ute,Helvetica,sans-serif><span class=clinicalNoteSectionShowSeparators clinicalNoteSectionVisible id=[id number] internalbreaksection=false originalname=Family History recognizeconcepts=true spantype=section" suppressempty=false>Family History</span></span></span>
Maternal grandmother had DVT/PE, but this was in the setting of malignancy

<span style=font-size:12px><span style=font-family:Ute,Helvetica,sans- serif><span class=clinicalNoteSectionShowSeparators clinicalNoteSectionVisible" id=[id number] internalbreaksection=false originalname="Social History recognizeconcepts=true spantype=section suppressempty=true>Social History</span></span></span>
Has 2 children, ages 4 and 2. Former smoker, quit in 2016. No significant alcohol use.

<span style=font-size:12px><span style=font-family:Ute,Helvetica,sans- serif><span class=clinicalNoteSectionShowSeparators clinicalNoteSectionV isible id=[id number] internalbreaksection=false original name=Vital Signs and Pain Scale recognizeconcepts=true spantype=section suppressempty=false>Vital Signs</span>
<span class=cl inicalNoteMacroHighlighted id=[id number] macroname=PatientVita lSigns parameters=LookBackDays:1 spantype=macro title=#PatientVi talSigns(LookBackDays:1)>Blood pressure: 152/86, Pulse: 93, Temperature: 96 F, Respirations: 16, O2 sat: 99%, Pain Scale: 0, Height: 68.75 in, Weight: 297.2 lb, BSA: 2.44, BMI: 44.21 kg/m2</span></span></span>
<span style=font-size:12px><spanstyle=font-family:Ute,Helvetica,sans-serif><span style=font-size:12px"><span style=font-family:Ute,Helvetica,sans-serif>Immunizations: <span cl ass=clinicalNoteMacroHighlighted id=[id number] macroname=I mmunizations parameters=ValueIfNull:Not [...]
</td> <td>
</td> </tr> </tbody></table></span>
<span class=clinicalNoteMacroHighmercyone centerville medical centered id=[id number] macroname=RecentLabResultsTable parameters=OptionalFlowsheetCategory:Chemistries,Label:Chemistries spantype=macro title=#RecentLabResultsTable(Option alFlowsheetCategory:Chemistries,Label:Chemistries)></span>
<span class=&q uot;clinicalNoteMacrIDighmercyone centerville medical centered id=[id number] macroname=RecentL abResultsTable parameters=OptionalFlowsheetCategory:Tumor Markers,Label:Tumor Markers" spantype=macro title=#RecentLabResultsTable(OptionalFlowsheetCategory:Tumor Ma rkers,Label:Tumor Markers)></span>
<span class=clinicalNoteMacroHig hlighted id=[id number] macroname=RecentLabResultsTable para meters=OptionalFlowsheetCategory:Anemia Labs,Label:Anemia Results spantype=macro" title=#RecentLabResultsTable(OptionalFlowsheetCategory:Anemia Labs,Label:Anemia Results)"></span></span></span>

<span class=clinicalNot eSectionShowSeparators clinicalNoteSectionVisible id=[id number] internalbreaksection=false originalname=Surveys/Consents/Other Discussions recognizeconcepts=true spantype=section suppressempty=true>Surveys/Consents/Other Discussions</span>

<hr><span style="font-size:12px><span style=font-family:Ute,Helvetica,sans-serif>
Thank you for allowing me to see [...]
--- OUTSIDE RECORDS SUMMARY | 2025-07-31 18:42 | XMS_ITS | Clinical Summary ---
Author Organization [place] Address [address] [facility] [place] [address] Care Team Providers Care Warehouse Assistant Name Role Phone Sarah Juares MD Primary Care Provider Purvi Jeong [facility] Unavailable [phone] Lucas Nuno MD Unavailable [phone] Meghan Cox [facility] Unavailable [phone] Allergies Active Allergy Reactions Criticality Noted [...] 4 MG/0.1ML nasal sprayIndication s:Acute post-operative pain [place] 1 spray (4 mg) into one nostril [...] [facility] Assessment & Plan (12/09/2021 6:41 PM MEDICAL DIRECTOR OCCUPATIONAL HEALTH): 10% improvement of reflux (perecieved) since adding [...] months Assessment & Plan (10/23/2021 5:11 PM MEDICAL DIRECTOR OCCUPATIONAL HEALTH): 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 Did great [...] Care Team Description 06/06/2025 MyC Medical Advice [facility] General Surgery [facility] [address] [place] [phone] Lucas Nuno MD 05/06/2025 MyC Medical Advice [facility] Weight Management Clinic [address] [address] Mariana Acosta PA-C from Last [...] Answer Date Recorded PHQ-2 Score 0 02/22/2025 Byron Depression Scale Answer Date Recorded Byron Depression Score 1 07/06/2021 Last EPDS Self [...] in an abandoned building, in an overnight fpc, or couch-surfing.) Yes 03/21/2025 Are you worried [...] CDT 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 MEDICAL DIRECTOR OCCUPATIONAL HEALTH Gender Identity Female 06/03/2022 7:36 AM CDT [...] ANTIBODY (EXTERNAL RESULT) Routine 12/19/2020 9:24 AM MEDICAL DIRECTOR OCCUPATIONAL HEALTH from Last 3 Months or Most Recently Relevant to Health Maintenance Results * HIV-1 Antibody (External Result) (12/19/2020 9:24 AM MEDICAL DIRECTOR OCCUPATIONAL HEALTH) HIV 1&2 Antibody (External) Negative Nonreactive [facility] 12/19/2020 9:24 AM MEDICAL DIRECTOR OCCUPATIONAL HEALTH us Patient Reported LAB - HIM EXTERNAL RESULT Final Result [facility] [address] [place] [address], [facility] [phone] from Last 3 Months or Most Recently Relevant to Health Maintenance Insurance [facility] * Guarantor: Karo Chavira Account Type Relation to Patient Date of Phone Billing Address Medication Therapy Self 1995 [address] [place] [address] Advance Directives For more information, please contact: [phone] * Full Code (Latest Code Status on [...] 1:00 AM 05/17/2014 2:26 PM Care Teams Warehouse Assistant Relationship Specialty [place] [address] [place] [address] PCP - General Family Medicine 03/13/25 Purvi Jeong RPH [address] [place] [phone] Pharmacist Pharmacist Emissions Repair Technician 01/03/25 Lucas Nuno MD [address] [place] [address] Assigned Surgical Provider 02/07/25 Meghan Cox RPH [address] [place] [phone] Pharmacist Pharmacist Emissions Repair Technician 03/20/25
--- OUTSIDE RECORDS SUMMARY | 2025-07-31 18:42 | XMS_ITS | Encounter Summary ---
Author Organization [place] Address [facility] [address] Care Team Providers Care Family Practice Physician Assistant Name Role Phone [facility], [facility] Primary Care Provider Leatha Wagner APRN [facility] Unavailable [phone] Mariana Acosta-C Unavailable [phone] Sarah Juares MD Primary Care Provider [phone] Lucas Nuno MD Unavailable [phone] Mariana AcostaC Unavailable [phone] Lucas Nuno MD Unavailable [phone] Mariana AcotsaC Unavailable [phone] Purvi Jeong [facility] Unavailable [phone] Lucas Nuno MD Unavailable [phone] Meghan Cox [facility] Unavailable [phone] Encounter Details Date Type Department Care Team (Late st Contact Info) Description 06/10/2022 [facility] Medical Advice [facility] Weight Management Clinic [address] 4[address] [place] [address] QuirinopenGiuliana Social History Tobacco Use Types Packs/Day Years Used Date Smoking Tobacco: Former Smokeless Tobacco: Never Alcohol Use Standard Drinks/Week Comments Not Currently 0 (1 standard drink = 0.6 oz pur e alcohol) rare [place] Depression Scale Answer Date Recorded [place] Depression Score 1 07/06/2021 Last EPDS Self Harm Result Not on file 07/06 Comments No Sex and Gender Information Value Date Recorded Sex Assigned at Female 06/03/2022 7:36 AM CDT 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 Gender Identity Female 06/03/2022 7:36 AM [...] documented as of this encounter Care Teams Family Practice Physician Assistant Relationship Specialty Start Date End Date [facility], [facility] [address] [place] [address] PCP - General 01/02/14 03/23/23 [place] [address] [place] [address] PCP - General Family Medicine 03/13/25 Leatha Wagner APRN INFORMATION WRITER [address] [place] [address] Assigned Surgical Provider 11/02/21 09/04/22 Mariana Acosta PA-C [address] [place] [address] Assigned Surgical Provider 09/05/22 12/09/23 Lucas Nuno MD [address] [address] Assigned Surgical Provider 12/10/23 01/07/24 Mariana Acosta PA-C [address] [address] Assigned Surgical Provider 01/08/24 03/08/24 Lucas Nuno MD [address] [place] [address] Assigned Surgical Provider 03/09/24 12/09/24 Mariana Acosta PA-C [address] [address] Assigned Surgical Provider 12/10/24 02/06/25 Purvi Jeong [facility] [address] [place] [address] Pharmacist Pharmacist Chocolate Temperer 01/03/25 Lucas Nuno MD [address] [place] [address] Assigned Surgical Provider 02/07/25 Meghan Cox [facility] [address] [place] [address] Pharmacist Pharmacist Chocolate Temperer 03/20/25 documented as of this encounter
--- OUTSIDE RECORDS SUMMARY | 2025-07-31 18:42 | XMS_ITS | Encounter Summary ---
Author Organization [place] Address [address] [facility] [address] Care Team Providers Care Licensed Physical Therapist Assistant Name Role Phone Mariana Acosta-Noreen Unavailable + [phone] Sarah Juares MD Primary Care Provider [phone] Lucas Nuno MD Unavailable [phone] Mariana Acosta-C Unavailable + [phone] Lucas Nuno MD Unavailable [phone] Mariana Acosta-C Unavailable + [phone] Purvi Jeong [facility] Unavailable [phone] Lucas Nuno MD Unavailable [phone] Meghan Cox [facility] Unavailable [phone] Encounter Details Date Type Department Care Team (Late st Contact Info) Description 05/12/2023 [facility] Weight [facility] [address] [place] [address] Xochitl Cooley Social History Tobacco Use Types Packs/Day Years Used Date Smoking Tobacco: Former Smokeless Tobacco: Never Alcohol Use Standard Drinks/Week Comments Not Currently 0 (1 standard drink = 0.6 oz pur e alcohol) rare PHQ-2 Answer Date Recorded PHQ-2 Score 0 05/12/2023 [place] Depression Scale Answer Date Recorded [place] Depression Score 1 07/06/2021 Last EPDS Self Harm Result Not on file 07/06 Comments No Sex and Gender Information Value Date Recorded Sex Assigned at Female 06/03/2022 7:36 AM CDT 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 Gender Identity Female 06/03/2022 7:36 AM CDT [...] on filedocumented in this encounter Care Teams Licensed Physical Therapist Assistant Relationship Specialty [place] [address] [facility] [place] [address] PCP - General Family Medicine 03/13/25 Mariana Acosta PA-C [address] [address] Assigned Surgical Provider 09/05/22 12/09/23 Lucas Nuno MD [address] [address] Assigned Surgical Provider 12/10/23 01/07/24 Mariana Acosta PA-C [address] [address] Assigned Surgical Provider 01/08/24 03/08/24 Lucas Nuno MD [address] [address] Assigned Surgical Provider 03/09/24 12/09/24 Mariana Acosta PA-C [address] [address] Assigned Surgical Provider 12/10/24 02/06/25 Purvi Jeong [facility] [address] [place] [address] Pharmacist Pharmacist Forming Machine Operator 01/03/25 Lucas Nuno MD [address] [place] [address] Assigned Surgical Provider 02/07/25 Meghan Cox [place] [address] [place] [address] Pharmacist Pharmacist Forming Machine Operator 03/20/25 documented as of this encounter
--- OUTSIDE RECORDS SUMMARY | 2025-07-31 18:42 | XMS_ITS | Encounter Summary ---
Author Organization [place] Address [address] [facility] [place] [address] Care Team Providers Care Purchasing Internship Name Role Phone Sarah Juares MD Primary Care Provider Purvi Jeong [facility] Unavailable [phone] Lucas Nuno MD Unavailable [phone] Meghan Cox [facility] Unavailable [phone] Encounter Details Date Type Department Care Team (Late st Contact Info) Description 03/20/2025 MyC Medical Advice [facility] [address] 4th [place] [address] Anastasia Molina, RN Social History Tobacco Use Types Packs/Day Years Used Date Smoking Tobacco: Former Smokeless Tobacco: Never Alcohol Use Standard Drinks/Week Comments Not Currently 0 (1 standard drink = 0.6 oz pur e alcohol) rare PHQ-2 Answer Date Recorded PHQ-2 Score 0 02/22/2025 [place] Depression Scale Answer Date Recorded [place] Depression Score 1 07/06/2021 Last EPDS Self [...] AM CDT 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 Gender Identity Female 06/03/2022 7:36 AM CDT Sexual Orientation Straight 06/03/2022 7: 36 AM CDT documented as of this encounter Plan of Treatment Not on file documented as of this encounter Visit Diagnoses Not on filedocumented in this encounter Care Teams Purchasing Internship Relationship Specialty [place] [address] [place] [address] PCP - General Family Medicine 03/13/25 Purvi Jeong RPH [address] [place] [phone] Pharmacist Pharmacist Movie Operator 01/03/25 Lucas Nuno MD [address] [place] [address] [phone] Assigned Surgical Provider 02/07/25 Meghan Cox RPH [address] [place] [address] Pharmacist Pharmacist Movie Operator 03/20/25 documented as of this encounter
--- OUTSIDE RECORDS SUMMARY | 2025-07-31 18:42 | XMS_ITS | Encounter Summary ---
Author Organization [place] Address [address] [facility] [place] [address] Care Team Providers Care Deputy Sheriff/Investigator Name Role Phone Sarah Juares MD Primary Care Provider [phone] Purvi Jeong [facility] Unavailable [phone] Lucas Nuno MD Unavailable [phone] Meghan Cox [facility] Unavailable [phone] Encounter Details Date Type Department Care Team (Late st Contact Info) Description 03/21/2025 MyC Medical Advice [facility] [address] 4th [place] [address] Anastasia Molina, RN Social History Tobacco Use Types Packs/Day Years Used Date Smoking Tobacco: Former Smokeless Tobacco: Never Alcohol Use Standard Drinks/Week Comments Not Currently 0 (1 standard drink = 0.6 oz pur e alcohol) rare PHQ-2 Answer Date Recorded PHQ-2 Score 0 02/22/2025 [place] Depression Scale Answer Date Recorded [place] Depression Score 1 07/06/2021 Last EPDS Self [...] AM CDT 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 Gender Identity Female 06/03/2022 7:36 AM CDT Sexual Orientation Straight 06/03/2022 7: 36 AM CDT documented as of this encounter Plan of Treatment Not on file documented as of this encounter Visit Diagnoses Not on filedocumented in this encounter Care Teams Deputy Sheriff/Investigator Relationship Specialty [place] [address] [place] [address] PCP - General Family Medicine 03/13/25 Purvi Jeong RPH [address] [place] [phone] Pharmacist Pharmacist Varnish Inspector 01/03/25 Lucas Nuno MD [address] [place] [address] [phone] Assigned Surgical Provider 02/07/25 Meghan Cox RPH [address] [place] [address] Pharmacist Pharmacist Varnish Inspector 03/20/25 documented as of this encounter
--- OUTSIDE RECORDS SUMMARY | 2025-07-31 18:42 | XMS_ITS | Encounter Summary ---
Author Organization [place] Address [address] [place] [address] Care Team Providers Care Tours Hostess Name Role Phone Sarah Juares MD Primary Care Provider [phone] Purvi Jeong [facility] Unavailable [phone] Lucas Nuno MD Unavailable [phone] Meghan Cox [facility] Unavailable [phone] Encounter Details Date Type Department Care Team (Late st Contact Info) Description 05/06/2025 MyC Medical Advice [facility] Weight Management [facility] [place] [id number] [facility] [address] 4th [place] [address] Mariana Acosta, ANABELLEC [address] [facility] [address] [facility] [address] [place] [address] Social History Tobacco Use Types Packs/Day Years Used Date Smoking Tobacco: Former Smokeless Tobacco: Never Alcohol Use Standard Drinks/Week Comments Not Currently 0 (1 standard drink = 0.6 oz pur e alcohol) rare PHQ-2 Answer Date Recorded PHQ-2 Score 0 02/22/2025 [place] Depression Scale Answer Date Recorded [place] Depression Score 1 07/06/2021 Last EPDS [...] AM CDT 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 Gender Identity Female 06/03/2022 7:36 AM CDT Sexual Orientation Straight 06/03/2022 7: 36 AM CDT documented as of this encounter Plan of Treatment Not on file documented as of this encounter Visit Diagnoses Not on filedocumented in this encounter Care Teams Tours Hostess Relationship Specialty [place] [address] [place] [address] PCP - General Family Medicine 03/13/25 Purvi Jeong [facility] [address] [place] [address] [phone] Pharmacist Pharmacist Route Delivery Supervisor 01/03/25 Lucas Nuno MD [address] [place] [address] [phone] Assigned Surgical Provider 02/07/25 Meghan Cox Mel[place] [address] [place] [address] [phone] Pharmacist Pharmacist Route Delivery Supervisor 03/20/25 documented as of this encounter
--- OUTSIDE RECORDS SUMMARY | 2025-07-31 18:42 | XMS_ITS | Encounter Summary ---
Author Organization [place] Address [address] [facility] [place] [address] Care Team Providers Care Foundry Worker General Name Role Phone Mariana Acosta-Noreen Unavailable + [phone] Sarah Juares MD Primary Care Provider [phone] Lucas Nuno MD Unavailable [phone] Mariana Acosta-C Unavailable + [phone] Lucas Nuno MD Unavailable [phone] Mariana Acosta-Noreen Unavailable + [phone] Purvi Jeong [facility] Unavailable [phone] Lucas Nuno MD Unavailable [phone] Meghan Cox [facility] Unavailable [phone] Encounter Details Date Type Department Care Team (Late st Contact Info) Description 05/10/2023 [facility] Medical Advice [facility] Weight [facility] [address] [place] [address] Paulina Denny RN Social History Tobacco Use Types Packs/Day Years Used Date Smoking Tobacco: Former Smokeless Tobacco: Never Alcohol Use Standard Drinks/Week Comments Not Currently 0 (1 standard drink = 0.6 oz pur e alcohol) rare PHQ-2 Answer Date Recorded PHQ-2 Score 0 05/12/2023 [place] Depression Scale Answer Date Recorded [place] Depression Score 1 07/06/2021 Last EPDS Self Harm Result Not on file 07/06 Comments No Sex and Gender Information Value Date Recorded Sex Assigned at Female 06/03/2022 7:36 AM CDT 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 Gender Identity Female 06/03/2022 7:36 AM CDT [...] on filedocumented in this encounter Care Teams Foundry Worker General Relationship Specialty [place] [address] [facility] [place] [address] PCP - General Family Medicine 03/13/25 Mariana Acosta PA-C [address] [place] [address] [address] Assigned Surgical Provider 09/05/22 12/09/23 Lucas Nuno MD [address] [address] [address] Assigned Surgical Provider 12/10/23 01/07/24 Mariana Acosta PA-C [address] [address] [address] Assigned Surgical Provider 01/08/24 03/08/24 Lucas Nuno MD [address] [address] Assigned Surgical Provider 03/09/24 12/09/24 Mariana Acosta PA-C [address] [address] Assigned Surgical Provider 12/10/24 02/06/25 Purvi Jeong [facility] [address] [place] [address] Pharmacist Pharmacist Senior Producer 01/03/25 Lucas Nuno MD [address] [place] [address] Assigned Surgical Provider 02/07/25 Meghan Cox [place] [address] [place] [address] Pharmacist Pharmacist Senior Producer 03/20/25 documented as of this encounter
--- OUTSIDE RECORDS SUMMARY | 2025-07-31 18:42 | XMS_ITS | Encounter Summary ---
Author Organization [place] Address [address] [facility] [place] [address] Care Team Providers Care Lab Scientist Name Role Phone Clinic, [facility] Primary Care Provider Leatha Wagner APRN [facility] Unavailable [phone] Mariana Acosta-C Unavailable [phone] Sarah Juares MD Primary Care Provider [phone] Lucas Nuno MD Unavailable [phone] Mariana AcostaC Unavailable [phone] Lucas Nuno MD Unavailable +[phone] Mariana AcostaC Unavailable [phone] Purvi Jeong [facility] Unavailable [phone] Lucas Nuno MD Unavailable [phone] Meghan Cox [facility] Unavailable [phone] Encounter Details Date Type Department Care Team (Late st Contact Info) Description 07/10/2022 [facility] Medical Advice [facility] Weight Management [facility] [place] [address] [facility] [address] 4th [place] [address] Lucas Nuno MD [address] [place] [address] 195 [place] [address] Social History Tobacco Use Types Packs/Day Years Used Date Smoking Tobacco: Former Smokeless Tobacco: Never Alcohol Use Standard Drinks/Week Comments Not Currently 0 (1 standard drink = 0.6 oz pur e alcohol) rare [place] Depression Scale Answer Date Recorded [place] Depression Score 1 07/06/2021 Last EPDS Self Harm Result Not on file 07/06 Comments No Sex and Gender Information Value Date Recorded Sex Assigned at Female 06/03/2022 7:36 AM CDT 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 [address] [place] [address] PCP - General 01/02/14 03/23/23 [place] [address] [place] [address] PCP - General Family Medicine 03/13/25 Leatha Wagner APRN BRANNER MACHINE TENDER [address] [place] [address] Assigned Surgical Provider 11/02/21 09/04/22 Mariana Acosta PA-C [address] [address] [address] Assigned Surgical Provider 09/05/22 12/09/23 Lucas Nuno MD [address] [address] Assigned Surgical Provider 12/10/23 01/07/24 Mariana Acosta PA-C [address] [address] Assigned Surgical Provider 01/08/24 03/08/24 Lucas Nuno MD [address] [place] [address] [address] Assigned Surgical Provider 03/09/24 12/09/24 Mariana Acosta PA-C [address] [address] Assigned Surgical Provider 12/10/24 02/06/25 Purvi Jeong [facility] [address] [place] [phone] Pharmacist Pharmacist Grinder Set Up Operator Surface 01/03/25 Lucas Nuno MD [address] [place] [address] [address] Assigned Surgical Provider 02/07/25 Meghan Cox [facility] [address] [place] [address] Pharmacist Pharmacist Grinder Set Up Operator Surface 03/20/25 documented as of this encounter
--- OUTSIDE RECORDS SUMMARY | 2025-07-31 18:42 | XMS_ITS | Encounter Summary ---
Author Organization [place] Address [facility] [place] [address] Care Team Providers Care Venetian Blind Mechanic Name Role Phone [facility], [facility] Primary Care Provider Leatha Wagner APRN [facility] Unavailable [phone] Mariana AcostaC Unavailable [phone] Sarah Juares MD Primary Care Provider [phone] Lucas Nuno MD Unavailable +[phone] Mariana Acosta PA-C Unavailable [phone] Lucas Nuno MD Unavailable +-[phone] Mariana Acosta PA-C Unavailable [phone] [facility] Unavailable [phone] Lucas Nuno MD Unavailable +[phone] [facility] Unavailable [phone] Encounter Details Date Type Department Care Team (Late st Contact Info) Description 08/27/2022 [facility] [address] 4th [place] [address] Mariana Acosta PA-C [address] [facility] [address] [place] [address] Social History Tobacco Use Types Packs/Day Years Used Date Smoking Tobacco: Former Smokeless Tobacco: Never Alcohol Use Standard Drinks/Week Comments Not Currently 0 (1 standard drink = 0.6 oz pur e alcohol) rare [place] Depression Scale Answer Date Recorded [place] Depression Score 1 07/06/2021 Last EPDS Self Harm Result Not on file 07/06 Comments No Sex and Gender Information Value Date Recorded Sex Assigned at Female 06/03/2022 7:36 AM CDT 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 Gender Identity Female 06/03/2022 7:36 AM CDT [...] documented as of this encounter Care Teams Venetian Blind Mechanic Relationship Specialty Start Date End Date [facility], [facility] [address] [place] [address] PCP - General 01/02/14 03/23/23 [place] [address] [place] [address] PCP - General Family Medicine 03/13/25 Leatha Wagner APRN ANIME DESIGNER [address] [place] [address] [phone] Assigned Surgical Provider 11/02/21 09/04/22 Mariana Acosta PA-C 420 [facility] [address] [place], [place] 873935 Assigned Surgical Provider 09/05/22 12/09/23 Lucas Nuno MD [address] [place] [address] Assigned Surgical Provider 12/10/23 01/07/24 Mariana Acosta PA-C [address] [place] [address] Assigned Surgical Provider 01/08/24 03/08/24 Lucas Nuno MD [address] [place] [address] Assigned Surgical Provider 03/09/24 12/09/24 Mariana Acosta PA-C [address] [place] [address] Assigned Surgical Provider 12/10/24 02/06/[address] [facility] [address] [place] [address] [phone] Pharmacist Pharmacist Blood Bank Booking Clerk 01/03/25 Lucas Nuno MD [address] [place] [address] Assigned Surgical Provider 02/07/[address] [facility] [address] [place] [address] Pharmacist Pharmacist Blood Bank Booking Clerk 03/20/25 documented as of this encounter
--- OUTSIDE RECORDS SUMMARY | 2025-07-31 18:42 | XMS_ITS | Encounter Summary ---
Author Organization [place] Address [facility] [place] [address] Care Team Providers Care Order Administrator Name Role Phone [facility], [facility] Primary Care Provider Leatha Wagner APRN [facility] Unavailable [phone] Mariana Acosta-C Unavailable [phone] Sarah Juares MD Primary Care Provider [phone] Lucas Nuno MD Unavailable [phone] Mariana AcostaC Unavailable [phone] Lucas Nuno MD Unavailable +-[phone] Mariana AcostaC Unavailable [phone] [facility] Unavailable [phone] Lucas Nuno MD Unavailable +[phone] [facility] Unavailable [phone] Encounter Details Date Type Department Care Team (Late st Contact Info) Description 06/11/2022 [place] Medical Advice [facility] Weight Management Clinic [address] 4th [place] [address] Keena Valente Social History Tobacco Use Types Packs/Day Years Used Date Smoking Tobacco: Former Smokeless Tobacco: Never Alcohol Use Standard Drinks/Week Comments Not Currently 0 (1 standard drink = 0.6 oz pur e alcohol) rare [place] Depression Scale Answer Date Recorded [place] Depression Score 1 07/06/2021 Last EPDS Self Harm Result Not on file 07/06 Comments No Sex and Gender Information Value Date Recorded Sex Assigned at Female 06/03/2022 7:36 AM CDT 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 Gender Identity Female 06/03/2022 7:36 AM [...] documented as of this encounter Care Teams Order Administrator Relationship Specialty Start Date End Date [facility], [facility] [address] [place] [address] PCP - General 01/02/14 03/23/23 [place] [address] [place] [address] PCP - General Family Medicine 03/13/25 Leatha Wagner APRN PROGRAM COORDINATOR [address] [place] [address] Assigned Surgical Provider 11/02/21 09/04/22 Mariana Acosta PA-C [address] [place] [address] Assigned Surgical Provider 09/05/22 12/09/23 Lucas Nuno MD [address] [address] Assigned Surgical Provider 12/10/23 01/07/24 Mariana Acosta PA-C [address] [address] Assigned Surgical Provider 01/08/24 03/08/24 Lucas Nuno MD [address] [place] [address] Assigned Surgical Provider 03/09/24 12/09/24 Mariana Acosta PA-C [address] [address] Assigned Surgical Provider 12/10/24 02/06/[address] [facility] [address] [place] [address] Pharmacist Pharmacist Fiberglass Boat Builder 01/03/25 Lucas Nuno MD [address] [address] Assigned Surgical Provider 02/07/[address] [facility] [address] [place] [address] Pharmacist Pharmacist Fiberglass Boat Builder 03/20/25 documented as of this encounter
--- OUTSIDE RECORDS SUMMARY | 2025-07-31 18:42 | XMS_ITS | Encounter Summary ---
Author Organization [place] Address [address] [facility] [place] [address] Care Team Providers Care Pressure Tester Operator Name Role Phone Sarah Juares MD Primary Care Provider Purvi Jeong [facility] Unavailable [phone] Lucas Nuno MD Unavailable [phone] Meghan Cox [facility] Unavailable [phone] Encounter Details Date Type Department Care Team (Late st Contact Info) Description 03/29/2025 MyC Medical Advice [facility] [place] [address] [facility] [address] 4th [place] [address] Lucas Nuno MD [address] [place] [address] [facility] [address] [place] [address] Social History Tobacco Use Types Packs/Day Years Used Date Smoking Tobacco: Former Smokeless Tobacco: Never Alcohol Use Standard Drinks/Week Comments Not Currently 0 (1 standard drink = 0.6 oz pur e alcohol) rare PHQ-2 Answer Date Recorded PHQ-2 Score 0 02/22/2025 [place] Depression Scale Answer Date Recorded [place] Depression Score 1 07/06/2021 Last EPDS Self [...] AM CDT 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 Gender Identity Female 06/03/2022 7:36 AM CDT Sexual Orientation Straight 06/03/2022 7: 36 AM CDT documented as of this encounter Plan of Treatment Not on file documented as of this encounter Visit Diagnoses Not on filedocumented in this encounter Care Teams Pressure Tester Operator Relationship Specialty [place] [address] [place] [address] PCP - General Family Medicine 03/13/25 Purvi Jeong [place] [address] [place] [address] [phone] Pharmacist Pharmacist Riverboat Captain 01/03/25 Lucas Nuno MD [address] [place] [address] 349105 Assigned Surgical Provider 02/07/25 Meghan Cox RPH [address] [place] [address] [phone] Pharmacist Pharmacist Riverboat Captain 03/20/25 documented as of this encounter
--- OUTSIDE RECORDS SUMMARY | 2025-07-31 18:42 | XMS_ITS | Encounter Summary ---
Author Organization [place] Address [address] [facility] [place] [address] Care Team Providers Care Welder Fitter Apprentice Name Role Phone Sarah Juares MD Primary Care Provider [phone] Purvi Jeong [facility] Unavailable [phone] Lucas Nuno MD Unavailable [phone] Meghan Cox [facility] Unavailable [phone] Encounter Details Date Type Department Care Team (Late st Contact Info) Description 04/12/2025 MyC Medical Advice [facility] General Surgery Clinic [place] [address] [facility] [address] 4th [place] [address] Lucas Nuno MD [address] [place] [address] [facility] 195 [place] [address] Social History Tobacco Use Types Packs/Day Years Used Date Smoking Tobacco: Former Smokeless Tobacco: Never Alcohol Use Standard Drinks/Week Comments Not Currently 0 (1 standard drink = 0.6 oz pur e alcohol) rare PHQ-2 Answer Date Recorded PHQ-2 Score 0 02/22/2025 [place] Depression Scale Answer Date Recorded [place] Depression Score 1 07/06/2021 Last EPDS Self [...] AM CDT 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 Gender Identity Female 06/03/2022 7:36 AM CDT Sexual Orientation Straight 06/03/2022 7: 36 AM CDT documented as of this encounter Plan of Treatment Not on file documented as of this encounter Visit Diagnoses Not on filedocumented in this encounter Care Teams Welder Fitter Apprentice Relationship Specialty [place] [address] [place] [address] PCP - General Family Medicine 03/13/25 Purvi Jeong eMlody [address] [place] [address] [phone] Pharmacist Pharmacist Multimedia Designer 01/03/25 Lucas Nuno MD [address] [place] [address] [phone] Assigned Surgical Provider 02/07/25 Meghan Cox RPH [address] [place] [address] [phone] Pharmacist Pharmacist Multimedia Designer 03/20/25 documented as of this encounter
--- OUTSIDE RECORDS SUMMARY | 2025-07-31 18:42 | XMS_ITS | Encounter Summary ---
Author Organization [place] Address [address] [facility] [place] [address] Care Team Providers Care Dependency Counselor Name Role Phone Mariana Acosta-Noreen Unavailable + [phone] Sarah Juares MD Primary Care Provider [phone] Lucas Nuno MD Unavailable [phone] Mariana AcostaC Unavailable + [phone] Lucas Nuno MD Unavailable [phone] Mariana Acosta-Noreen Unavailable + [phone] Purvi Jeong [facility] Unavailable +[phone] Lucas Nuno MD Unavailable [phone] Meghan Cox [facility] Unavailable +[phone] Encounter Details Date Type Department Care Team (Late st Contact Info) Description 05/12/2023 [facility] [address] [place] [address] Christiano Hull Social History Tobacco Use Types Packs/Day Years Used Date Smoking Tobacco: Former Smokeless Tobacco: Never Alcohol Use Standard Drinks/Week Comments Not Currently 0 (1 standard drink = 0.6 oz pur e alcohol) rare PHQ-2 Answer Date Recorded PHQ-2 Score 0 05/12/2023 [place] Depression Scale Answer Date Recorded [place] Depression Score 1 07/06/2021 Last EPDS Self Harm Result Not on file 07/06 Comments No Sex and Gender Information Value Date Recorded Sex Assigned at Female 06/03/2022 7:36 AM CDT 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 Gender Identity Female 06/03/2022 7:36 AM [...] on filedocumented in this encounter Care Teams Dependency Counselor Relationship Specialty [place] [address] [facility] [place] [address] PCP - General Family Medicine 03/13/25 Mariana Acosta PA-C [address] 224125 Assigned Surgical Provider 09/05/22 12/09/23 Lucas Nuno MD [address] [address] Assigned Surgical Provider 12/10/23 01/07/24 Mariana Acosta PA-C [address] [address] Assigned Surgical Provider 01/08/24 03/08/24 Lucas Nuno MD [address] [address] Assigned Surgical Provider 03/09/24 12/09/24 Mariana Acosta PA-C [address] [place] [address] Assigned Surgical Provider 12/10/24 02/06/25 Purvi Jeong [facility] [address] [place] [address] Pharmacist Pharmacist Jig Inspector 01/03/25 Lucas Nuno MD [address] [place] [address] Assigned Surgical Provider 02/07/25 Meghan Cox [facility] [address] [place] [address] Pharmacist Pharmacist Jig Inspector 03/20/25 documented as of this encounter
--- OUTSIDE RECORDS SUMMARY | 2025-07-31 18:42 | XMS_ITS | Encounter Summary ---
Author Organization [place] Address [facility] [place] [address] Care Team Providers Care People Manager Name Role Phone [facility], [facility] Primary Care Provider Leatha Wagner APRN [facility] Unavailable [phone] Mariana Acosta-C Unavailable [phone] Sarah Juares MD Primary Care Provider [phone] Lucas Nuno MD Unavailable +-[phone] Mariana AcostaC Unavailable +[phone] Lucas Nuno MD Unavailable +- 50 Mariana AcostaC Unavailable [phone] Purvi Jeong [facility] Unavailable [phone] Lucas Nuno MD Unavailable +- Meghan Cox [facility] Unavailable [phone] Encounter Details Date Type Department Care Team (Late st Contact Info) Description 08/24/2022 [facility] [address] [place] [address] Rita Gillespie, EMT Social History Tobacco Use Types Packs/Day Years Used Date Smoking Tobacco: Former Smokeless Tobacco: Never Alcohol Use Standard Drinks/Week Comments Not Currently 0 (1 standard drink = 0.6 oz pur e alcohol) rare [place] Depression Scale Answer Date Recorded [place] Depression Score 1 07/06/2021 Last EPDS Self Harm Result Not on file 07/06 Comments No Sex and Gender Information Value Date Recorded Sex Assigned at Female 06/03/2022 7:36 AM CDT 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, [facility] [address] [facility] [place] [address] PCP - General 01/02/14 03/23/23 [place] [address] [facility] [place] [address] PCP - General Family Medicine 03/13/25 Leatha Wagner APRN [employer] [address] [place] [address] Assigned Surgical Provider 11/02/21 09/04/22 Mariana Acosta PA-C [address] [place] [address] Assigned Surgical Provider 09/05/22 12/09/23 Lucas Nuno MD [address] [address] Assigned Surgical Provider 12/10/23 01/07/24 Mariana Acosta PA-C [address] [address] Assigned Surgical Provider 01/08/24 03/08/24 Lucas Nuno MD [address] [address] Assigned Surgical Provider 03/09/24 12/09/24 Mariana Acosta PA-C [address] [address] Assigned Surgical Provider 12/10/24 02/06/25 Purvi Jeong [facility] [address] [place] [address] [phone] Pharmacist Pharmacist Analyst 01/03/25 Lucas Nuno MD [address] [place] [address] Assigned Surgical Provider 02/07/25 Meghan Cox [facility] [address] [place] [address] Pharmacist Pharmacist Analyst 03/20/25 documented as of this encounter
--- OUTSIDE RECORDS SUMMARY | 2025-07-31 18:42 | XMS_ITS | Encounter Summary ---
Author Organization [place] Address [facility] [place] [address] Care Team Providers Care Welding Machine Operator Helper Arc Name Role Phone [facility], [facility] Primary Care Provider Leatha Wagner APRN [facility] Unavailable [phone] Mariana Acosta-C Unavailable +[phone] Sarah Juares MD Primary Care Provider [phone] Lucas Nuno MD Unavailable +-[phone] Mariana AcostaC Unavailable [phone] Lucas Nuno MD Unavailable +- 73 Mariana AcostaC Unavailable +[phone] Purvi Jeong [facility] Unavailable [phone] Lucas Nuno MD Unavailable +- Meghan Cox [facility] Unavailable [phone] Encounter Details Date Type Department Care Team (Late st Contact Info) Description 09/02/2022 [facility] Medical Advice [facility] [address]th [place] [address] QuirinopenGiuliana Social History Tobacco Use Types Packs/Day Years Used Date Smoking Tobacco: Former Smokeless Tobacco: Never Alcohol Use Standard Drinks/Week Comments Not Currently 0 (1 standard drink = 0.6 oz pur e alcohol) rare [place] Depression Scale Answer Date Recorded [place] Depression Score 1 07/06/2021 Last EPDS Self Harm Result Not on file 07/06 Comments No Sex and Gender Information Value Date Recorded Sex Assigned at Female 06/03/2022 7:36 AM CDT 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 Gender Identity Female 06/03/2022 7:36 AM CDT [...] documented as of this encounter Care Teams Welding Machine Operator Helper Arc Relationship Specialty Start Date End Date [facility], [facility] [address] [facility] [place] [address] PCP - General 01/02/14 03/23/23 [place] [address] [facility] [place] [address] PCP - General Family Medicine 03/13/25 Leatha Wagner APRN MANAGED CARE SPECIALIST [address] [place] [address] Assigned Surgical Provider 11/02/21 09/04/22 Mariana Acosta PA-C [address] [place] [address] Assigned Surgical Provider 09/05/22 12/09/23 Lucas Nuno MD [address] [address] Assigned Surgical Provider 12/10/23 01/07/24 Mariana Acosta PA-C [address] [address] Assigned Surgical Provider 01/08/24 03/08/24 Lucas Nuno MD [address] [address] Assigned Surgical Provider 03/09/24 12/09/24 Mariana Acosta PA-C [address] [address] Assigned Surgical Provider 12/10/24 02/06/25 Purvi Jeong [facility] [address] [place] [address] Pharmacist Pharmacist Activity Therapy Specialist 01/03/25 Lucas Nuno MD [address] [address] Assigned Surgical Provider 02/07/25 Meghan Cox [facility] [address] [place] [address] Pharmacist Pharmacist Activity Therapy Specialist 03/20/25 documented as of this encounter
--- OUTSIDE RECORDS SUMMARY | 2025-07-31 18:42 | XMS_ITS | Encounter Summary ---
Author Organization [place] Address [facility] [place] [address] Care Team Providers Care Cardiac Cath Technician Name Role Phone [facility], [facility] Primary Care Provider Leatha Wagner APRN [facility] Unavailable [phone] Mariana Acosta-C Unavailable +[phone] Sarah Juares MD Primary Care Provider [phone] Lucas Nuno MD Unavailable +-[phone] Mariana AcostaC Unavailable [phone] Lucas Nuno MD Unavailable +-[phone] 29 Mariana AcostaC Unavailable +[phone] Purvi Jeong [facility] Unavailable [phone] Lucas Nuno MD Unavailable +-6 Meghan Cox [facility] Unavailable [phone] Encounter Details Date Type Department Care Team (Late st Contact Info) Description 08/27/2022 [facility] [address] YES[place] Roberto [address] Xochitl Cooley Social History Tobacco Use Types Packs/Day Years Used Date Smoking Tobacco: Former Smokeless Tobacco: Never Alcohol Use Standard Drinks/Week Comments Not Currently 0 (1 standard drink = 0.6 oz pur e alcohol) rare [place] Depression Scale Answer Date Recorded [place] Depression Score 1 07/06/2021 Last EPDS Self Harm Result Not on file 07/06 Comments No Sex and Gender Information Value Date Recorded Sex Assigned at Female 06/03/2022 7:36 AM CDT 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 Gender Identity Female 06/03/2022 7:36 AM CDT [...] documented as of this encounter Care Teams Cardiac Cath Technician Relationship Specialty Start Date End Date [facility], [facility] [address] [facility] [place] [address] PCP - General 01/02/14 03/23/23 [place] [address] [facility] [place] [address] PCP - General Family Medicine 03/13/25 Leatha Wagner APRN AQUATICS SPECIALIST [address] [place] [address] Assigned Surgical Provider 11/02/21 09/04/22 Mariana Acosta PA-C [address] [place] [address] Assigned Surgical Provider 09/05/22 12/09/23 Lucas Nuno MD [address] [address] Assigned Surgical Provider 12/10/23 01/07/24 Mariana Acosta PA-C [address] [address] Assigned Surgical Provider 01/08/24 03/08/24 Lucas Nuno MD [address] [address] Assigned Surgical Provider 03/09/24 12/09/24 Mariana Acosta PA-C [address] [address] Assigned Surgical Provider 12/10/24 02/06/25 Purvi Jeong [facility] [address] [place] [address] 197315 Pharmacist Pharmacist Collar Folder Operator 01/03/25 Lucas Nuno MD [address] [address] Assigned Surgical Provider 02/07/25 Meghan Cox [facility] 9 [place] [address] Pharmacist Pharmacist Collar Folder Operator 03/20/25 documented as of this encounter
--- OUTSIDE RECORDS SUMMARY | 2025-07-31 18:42 | XMS_ITS | Encounter Summary ---
Author Organization [place] Address [address] [facility] [place] [address] Care Team Providers Care Latex Fashions Designer Name Role Phone Sarah Juares MD Primary Care Provider Purvi Jeong [facility] Unavailable [phone] Lucas Nuno MD Unavailable [phone] Meghan Cox [facility] Unavailable [phone] Encounter Details Date Type Department Care Team (Late st Contact Info) Description 03/23/2025 [facility] Medical Advice [facility] [place] [address] [facility] [address] 4th [place] [address] Lucas Nuno MD [address] [place] [address] [facility] [address] [place] [address] Social History Tobacco Use Types Packs/Day Years Used Date Smoking Tobacco: Former Smokeless Tobacco: Never Alcohol Use Standard Drinks/Week Comments Not Currently 0 (1 standard drink = 0.6 oz pur e alcohol) rare PHQ-2 Answer Date Recorded PHQ-2 Score 0 02/22/2025 [place] Depression Scale Answer Date Recorded [place] Depression Score 1 07/06/2021 Last EPDS [...] AM CDT 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 Gender Identity Female 06/03/2022 7:36 AM CDT Sexual Orientation Straight 06/03/2022 7: 36 AM CDT documented as of this encounter Plan of Treatment Not on file documented as of this encounter Visit Diagnoses Not on filedocumented in this encounter Care Teams Latex Fashions Designer Relationship Specialty [place] [address] [place] [address] PCP - General Family Medicine 03/13/25 Purvi Jeong [facility] [address] [place] [address] [phone] Pharmacist Pharmacist Autocad Designer 01/03/25 Lucas Nuno MD [address] [place] [address] [phone] Assigned Surgical Provider 02/07/25 Meghan Cox [facility] [address] [place] [address] [phone] Pharmacist Pharmacist Autocad Designer 03/20/25 documented as of this encounter
--- NOTE | 2025-07-31 18:55 | CRLHL7_ITS ---
For Patients: As a result of the Century Cures Act, medical imaging exams and procedure reports are released immediately into your electronic medical record. You may view this report before your referring provider. If you have questions, please contact your health care provider. INDICATION: Leg pain and swelling. TECHNIQUE: Ultrasound venous duplex lower left extremity. Compression venous exam was performed using abdullahi-scale, color Doppler, and spectral Doppler analysis. COMPARISON: None. FINDINGS: Limited evaluation due to underlying body habitus. Deep veins: Sonographic imaging demonstrates the left common femoral, deep femoral, superficial femoral, popliteal, and the contralateral right common femoral veins to be fully compressible. The posterior tibial vein is not visualized. Superficial veins: Greater saphenous vein is fully compressible. IMPRESSION: Limited evaluation as above. The posterior tibial vein was not visualized. Otherwise no evidence of deep venous thrombus. Dictated by Rene Michaud MD @ 07/31/2025 8:48:47 PM (Electronically Signed)
[2025-07-31 18:56] VITALS: BP 148/84; PULSE 98; RESP 20; TEMP 36.9; O2SAT 97; BMI 40.5
--- NOTE | 2025-07-31 19:19 | ED.GENADULT ---
HPI - General Adult General Chief complaint: Lower Extremity Swelling Stated complaint: Blood cot in R arm, Left leg swollen Time Seen by Provider: 07/31/25 19:17 Source: patient Mode of arrival: ambulatory Limitations: no limitations History of Present Illness HPI narrative: Patient is a 30-year-old female coming in today concerned about a blood clot in her lower extremity. Patient has a history of recurrent blood clots. She was seen here yesterday with swelling of the right forearm and was found to have a superficial thrombophlebitis. She also had a chest CT done at she was concerned about resolution of previous PE-the CT scan showed no evidence of acute PE. She presents today because now her left calf is swollen. Patient is currently on daily Lovenox which has worked better for her for clot prevention than oral anticoagulants. No chest pain or shortness of breath. Related Data Home Medications ?Medication ?Instructions ?Recorded ?Confirmed ferrous sulfate 325 mg (65 mg 325 mg PO DAILY 05/18/24 07/30/25 iron) tablet (Feosol) potassium 99 mg tablet 99 mg PO DAILY 05/18/24 07/30/25 escitalopram oxalate 10 mg tablet 10 mg PO QAM 05/27/25 07/30/25 tizanidine 4 mg tablet 4 mg PO 3XD PRN muscle spasm 05/27/25 07/30/25 cyanocobalamin (vitamin B-12) sublingual 07/30/25 1,000 mcg sublingual tablet doxycycline monohydrate 100 mg 100 mg PO DAILY 07/30/25 07/30/25 capsule enoxaparin 150 mg/mL subcutaneous mg subcut Q12H 07/30/25 syringe Allergies Allergy/AdvReac Type Severity Reaction Status Date / Time azithromycin Allergy Unknown Verified 07/30/25 20:13 hydrocodone Allergy Unknown Verified 07/30/25 20:13 tramadol Allergy Unknown Verified 07/30/25 20:13 Review of Systems Status of ROS: Reports: 6 or more systems reviewed and unremarkable except as noted in History and below [facility] Social History Smoking Status: Current every day smoker Do you use any of these nicotine containing products: Vaping Products How often do you have a drink containing alcohol: never AUDIT-C Alcohol total score: 0 Non-prescribed substance use: denies use Exam Narrative: Exam Narrative: Well-nourished well-developed patient in no acute distress. Alert and oriented. Answers questions appropriately. Mood and affect are appropriate. Thoughts are goal oriented and rational. No tangential or magical thinking noted. Patient speaks in full sentences without needing to catch her breath. extremities: The right lower extremity is more swollen than the left. Swelling goes from the knee all the way down to the feet. No pitting edema. Normal DP and PT pulses. No pallor. Skin is warm, dry and intact. Negative Homans sign Const: Vital Signs, click to edit/add: Vital Signs - 24 hr 07/31/25 18:56 07/31/25 18:59 Temperature 98.4 F 98.3 F Pulse Rate [Pulse Oximeter] 98 74 Respiratory Rate 20 18 Blood Pressure [Le ft Upper Arm] 148/84 H 149/99 H Pulse Oximetry 97 98 Oxygen Delivery Me thod Room Air Room Air Course Course ED Course: Ultrasound of lower extremity was done. Looks normal except that the posterior tibial vein was not visualized. Because of this we proceeded with a D-dimer. Using shared decision making we decided to admit the patient for heparinization given that her leg is swollen and tender. And we will try repeating the ultrasound tomorrow. If it is not visualized again we may need to consider transfer for a CT venogram. Vital Signs Vital signs: Initial Vital Signs Temperature 98.4 F 07/31/25 18:56 Temperature Source Temporal Artery Scan 07/31/25 18:56 Pulse Rate 98 07/31/25 18:56 Respiratory Rate 20 07/31/25 18:56 Blood Pressure 148/84 H 07/31/25 18:56 Blood Pressure Mean 105 07/31/25 18:56 Blood Pressure Position Sitting 07/31/25 18:56 Pulse Oximetry 97 07/31/25 18:56 Oxygen Delivery Method Room Air 07/31/25 18:56 Vital Signs Temperature 98.4 F 07/31/25 18:56 Pulse Rate 98 07/31/25 18:56 Respiratory Rate 20 07/31/25 18:56 Blood Pressure 148/84 H 07/31/25 18:56 Pulse Oximetry 97 07/31/25 18:56 Oxygen Delivery Method Room Air 07/31/25 18:56 Temperature 98.3 F 07/31/25 18:59 Pulse Rate 74 07/31/25 18:59 Respiratory Rate 18 07/31/25 18:59 Blood Pressure 149/99 H 07/31/25 18:59 Pulse Oximetry 98 07/31/25 18:59 Oxygen Delivery Method Room Air 07/31/25 18:59 Medical Decision Making MDM Narrative Medical decision making narrative: 30-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 Patient will be admitted for further management. Lab Data Lab results reviewed: Yes I reviewed the patient's lab results Labs: Lab Results 07/31/25 Range/Units 21:00 D-Dimer Quant (PE/DVT) 0.91 H (0.00-0.50) ug/ml Imaging Data Venous US: Attestation: I have reviewed the pertinent imaging results. Radiologist's impression: TECHNIQUE: Ultrasound venous duplex lower left extremity. Compression venous exam was performed using abdullahi-scale, color Doppler, and spectral Doppler analysis. COMPARISON: None. FINDINGS: Limited evaluation due to underlying body habitus. Deep veins: Sonographic imaging demonstrates the left common femoral, deep femoral, superficial femoral, popliteal, and the contralateral right common femoral veins to be fully compressible. The posterior tibial vein is not visualized. Superficial veins: Greater saphenous vein is fully compressible. IMPRESSION: Limited evaluation as above. The posterior tibial vein was not visualized. Otherwise no evidence of deep venous thrombus. Discharge Plan Discharge Clinical Impression: Leg swelling Patient Disposition: Admitted As Observation Condition: Stable
--- OUTSIDE RECORDS SUMMARY | 2025-07-31 19:38 | XMS_ITS ---
Author Name Interface, [id number] lity Address [address] [address] Organization [facility] Address [address] [address] Support Name Relationship Address Phone FREEDOM ALEMAN [...] 1 HR 07/07/2023 APPOINTMENT CHART CHECK 5 PA N 07/05/[address] [facility] LOW UP 20 MIN 07/05/2023 APPOINTMENT [...] 10.0 130.0 5.80 Low FIN[address] Enzo Garg [facility], [facility] [address] [id number] 0 Phone: () - 07/05 Iron profi le TIBC ug/dL 250.0 425.0 [address] [facility], [address] [phone] 0 Phone: () - 07/05 Iron profi le Iron ug/dL 50.0 175.0 43 Low FINAL Enzo Garg [facility], [address] [facility] [address] [phone] 0 Phone: () - 07/05 Iron profi le Unbou nd iron capac ity ug/dL 75.0 410.0 367 FINAL Enzo Garg [place] [address] [phone] 0 Phone: () - 07/05 Iron profi le Iron, % satur ation % 20.0 55.0 10 Low [address] [facility]zo G[facility], [address] [phone] 0 Phone: () - 07/05 CBC w/ auto diff WBC K/uL 3.0 8.9 7.1 FINAL [facility] [place], [address] [place] [phone] 0 Phone: () - 07/05 CBC w/ auto diff HGB g/dL 11.3 15.2 11.5 FINAL [facility] [place], [address] [place] [phone] 0 Phone: () - 07/05 CBC w/ auto diff PLT K/uL 113.0 364.0 302 FINAL [facility] [place], [address] [place] [phone] 0 Phone: () - 07/05 CBC w/ auto diff Fly # (ANC) K/uL 1.6 6.6 4.5 FINAL [facility] [place], [address] [place] [phone] 0 Phone: () - 07/05 CBC w/ auto diff Fly % % 43.0 74.0 62.6 FINAL [facility] [place], [address] [place] [phone] 0 Phone: () - 07/05 CBC w/ auto diff IG % % 0.0 0.5 0.3 FINAL [facility] [place], [address] [place] [phone] 0 Phone: () - 07/05 CBC w/ auto diff IG # K/uL 0.0 0.03 0.02 FINAL [facility] [place], [address] [place] [phone] 0 Phone: () - 07/05 CBC w/ auto diff LY % % 14.0 41.0 29.7 FINAL [facility] [place], [address] [place] [phone] 0 Phone: () - 07/05 CBC w/ auto diff MO % % 6.0 15.0 5.9 Low FINAL [facility] [place], [address] [place] [phone] 0 Phone: () - 07/05 CBC w/ auto diff EO % % 0.0 7.0 1.4 FINAL [facility] [place], [address] [place] [phone] 0 Phone: () - 07/05 CBC w/ auto diff BA % % 0.0 2.0 0.1 FINAL [facility] [place], [address] [place] [phone] 0 Phone: () - 07/05 CBC w/ auto diff LY # K/uL 0.4 3.6 2.1 FINAL [facility] [place], [address] [place] [phone] 0 Phone: () - 07/05 CBC w/ auto diff MO # K/uL 0.2 1.3 0.4 FINAL [facility] [place], [address] [place] [phone] 0 Phone: () - 07/05 CBC w/ auto diff EO # K/uL 0.0 0.6 0.1 FINAL [facility] [place], [address] [place] [phone] 0 Phone: () - 07/05 CBC w/ auto diff BA # K/uL 0.0 0.2 0.0 FINAL [facility] [place], [address] [place] [phone] 0 Phone: () - 07/05 CBC w/ auto diff NRBC % #/100W BC 0.0 0.2 0.0 FINAL [facility] [place], [address] [place] [phone] 0 Phone: () - 07/05 CBC w/ auto diff RBC M/uL 3.9 5.1 3.81 Low FINAL [facility] [place], [address] [place] [phone] 0 Phone: () - 07/05 CBC w/ auto diff HCT % 35.0 48.0 35.8 FINAL [facility] [place], [address] [place] [phone] 0 Phone: () - 07/05 CBC w/ auto diff MCV fL 80.0 104.0 94.0 FINAL [facility] [place], [address] [place] [phone] 0 Phone: () - 07/05 CBC w/ auto diff MCH pg 26.0 35.0 30.2 FINAL [facility] [place], [address] [place] [phone] 0 Phone: () - 07/05 CBC w/ auto diff MCHC g/dL 30.0 35.0 32.1 FINAL [facility] [place], [address] [place] [phone] 0 Phone: () - 07/05 CBC w/ auto diff MPV fL 9.5 13.4 9.1 Low FINAL [facility] [place], [address] [place] [phone] 0 Phone: () - 07/05 CBC w/ auto diff RDW % 11.4 16.1 15.70 FINAL [facility] [place], [address] [place] [phone] 0 Phone: () - [place] [facility] [place] d [place] [facility] [place] attacher [place]14 [facility] [place] See heel attacher d [place]/27 [facility] [place] See attache patel 04[place]02 [facility] [place] See attache patel 04[place]06 [facility] [place] Onc Consult <html><head></head><body><div style=text-align:center><span style=font- size:9px></span><span style=font-size:12px><span style=font-family:[place],Helvetica,sans-serif><span class=clinicalNote MacroHighlighted id=[id number] macroname=PracticeLetterhead&quot ; spantype=macro title=#PracticeLetterhead><img ezhgcj=269 src=live/fileDownload?type=1&cfqwIsdxmygjzoHq=[id number] whdbg=837> </span></span></span>
</div><span style=font-size:12px"><span style=font-family:[place],Helvetica,sans-serif>
<strong>Patient Name: </strong><span class=clinicalNoteMacroHighlighted id=&quo t;[id number] macroname=PatientName spantype=macro title=&q uot;#PatientName>KALEB ALEMAN CARDONA</span>
<strong>MRN: &lt ;/strong><span class=clinicalNoteMacroHighlighted id=[id number]& quot; macroname=PatientMRN spantype=macro title=#PatientMRN>[id number]</span>
<strong>Date of : </strong><span class=&qu ot;clinicalNoteMacroHighlighted id=[id number] macroname=Patient DateOfBirth spantype=macro title=#PatientDateOfBirth>1995< /span>
<strong>Date of Service: </strong><span class=clini calNoteMacroHighlighted id=[id number] macroname=EffectiveDate&qu ot; spantype=macro title=#EffectiveDate>07/05/2023</span></span& gt;</span>
<strong>Attending Physician: </strong><span class=clinicalNoteMacroHighlighted id=[id number] macroname= AttendingPhysician spantype=macro title=#AttendingPhysician>Enzo Garg (Hematology/Oncology)</span>
<strong>Referring Physician:</strong&g t; <span class=clinicalNoteMacroHighlighted id=[id number]& quot; macroname=ReferringPhysician spantype=macro title=#ReferringPhys ician> </span>

<div style=text-align:center><span style=font-size:12px><span style=font-family:[place],Helvetica,sans- serif><strong>INITIAL HEMATOLOGY/MEDICAL ONCOLOGY CONSULTATIO N</strong></span></span>

</div><span style=font-size:12px><span style=font-family:[place],Helvetica,sans-serif><span style=font- size:12px><span style=font-family:[place],Helvetica,sans-serif&g t;</span></span><span class=clinicalNoteSectionShowSeparators clinicalNoteSecti onVisible id=[id number] internalbreaksection=false origi [...] to continue oral iron

<span style=font-size:12px&quo t;><span style=font-family:[place],Helvetica,sans-serif><span class=clin icalNoteSectionShowSeparators clinicalNoteSectionVisible id=[id number]" internalbreaksection=false originalname=[facility] [...] pain planindicated for today's visit</span><span style=font-size:12px><span st yle=font-family:[place],Helvetica,sans-serif>
<span style=font-size:1 2px><span style=font-family:[place],Helvetica,sans-serif><span style=&qu ot;font-size:12px><span style=font-family:[place],Helvetica,sans-serif><span style=font-size:12px><span style=font-family:[place],Helvetica,sans-serif ><span style=font-family:[place]><span class=clinicalNoteSectionShowSeparators clinicalNoteSectionVisible id=[id number] internalbreaks ection=false originalname=Smoking Status recognizeconcepts=true spantype=section suppressempty=true>Smoking Status</span>
Smoking Status: <span class=clinicalNoteMacroHighlighted id=[id number] macroname=PatientSmokingStatus parameters=ValueIfNull:Not recor ded. spantype=macro title=#PatientSmokingStatus(ValueIfNull:Not recorded.)&q uot;>Smoking Tobacco : Former smoker, stopped smokin; Smokeless Tobacco : Never used smokeless tobacco; Vaping : Current vape user</span></span></span></span></spa n></span></span></span></span></span>

<span style=font-size:12px><span style=font-family:[place],Helvetica,sans-serif><span style=font- size:12px><span style=font-family:[place],Helvetica,sans-serif><span class=clinicalNoteSectionShowSeparators clinicalNoteSectionVisible" id=[id number] internalbreaksection=false originalname=&q uot;History of [...] History of Present Illness.
<span style=font-size:12px><span style=&q uot;font-family:[place],Helvetica,sans-serif><span class=clinicalNoteSectionShowSeparators clinicalNoteSectionVisible id=[id number] internalbreaksection=false originalname=Past Medical History recognizeconcepts=true spantype=section suppressempty=false>Past Medical and Surgical History&l t;/span></span></span>
History of iron deficiency anemia

<span style=font-size:12px><span style=font-family:[place],Helvetica,sans-s erif><span class=clinicalNoteSectionShowSeparators clinicalNoteSectionVisible" id=[id number] internalbreaksection=false originalname=Current Medications [...] Subcutaneous)</td> <td width=40%>07/05/2023</td> </tr> </tbody></table></span></span></span>
<span style=font-size:12px><span style=font-family:[place],Helvetica,sans-serif><span class=&quo t;clinicalNoteSectionShowSeparators clinicalNoteSectionVisible id=[id number] internalbreaksection=false originalname=Allergies recognizeconcepts=true spantype=section suppressempty=false>Allergies</span>
<span class=clinicalNoteMacroHighlighted id=[id number] macroname=AllergyTable spantype=macro title=#AllergyTable"><table border=1 style=width:100%> <tbody> <tr> <td colspan=4>Current Allergy List</td> </tr> <tr> <td width="100px>Allergy Name</td> <td pmdsd=435aa>Severity</td> <td kmugq=415xj>Status</td> <td ntptk=839cm>Recording Date</td> </tr> <tr> <td gnznp=129lo>NSAIDS (Non- Steroidal Anti-Inflammatory Drug)</td> <td eqxvg=058vl>
</td> <td lrlss=371mg>Active</td> <td walba=347fx>07/05/2023</td> </tr> <tr> <td deskf=384ax>Zithromax</td> <td vddov=151dl>
</td> <td endmd=954en>Active</td> <td timpd=109hj">07/05/2023</td> </tr> </tbody></table></span></span></span>
<span style=font-size:12px><span style=font-family:[place],Helvetica,sans-serif><span class=clinicalNoteSectionShowSeparators clinicalNoteSectionVisible id=[id number] internalbreaksection=false originalname=Family History recognizeconcepts=true spantype=section" suppressempty=false>Family History</span></span></span>
Maternal grandmother had DVT/PE, but this was in the setting of malignancy

<span style=font-size:12px><span style=font-family:[place],Helvetica,sans- serif><span class=clinicalNoteSectionShowSeparators clinicalNoteSectionVisible" id=[id number] internalbreaksection=false originalname="Social History recognizeconcepts=true spantype=section suppressempty=true>Social History</span></span></span>
Has 2 children, ages 4 and 2. Former smoker, quit in 2016. No significant alcohol use.

<span style=font-size:12px><span style=font-family:[place],Helvetica,sans- serif><span class=clinicalNoteSectionShowSeparators clinicalNoteSectionV isible id=[id number] internalbreaksection=false original name=Vital Signs and Pain Scale recognizeconcepts=true spantype=section suppressempty=false>Vital Signs</span>
<span class=cl inicalNoteMacroHighlighted id=[id number] macroname=PatientVita lSigns parameters=LookBackDays:1 spantype=macro title=#PatientVi talSigns(LookBackDays:1)>Blood pressure: 152/86, Pulse: 93, Temperature: 96 F, Respirations: 16, O2 sat: 99%, Pain Scale: 0, Height: 68.75 in, Weight: 297.2 lb, BSA: 2.44, BMI: 44.21 kg/m2</span></span></span>
<span style=font-size:12px><spanstyle=font-family:[place],Helvetica,sans-serif><span style=font-size:12px"><span style=font-family:[place],Helvetica,sans-serif>Immunizations: <span cl ass=clinicalNoteMacroHighlighted id=[id number] macroname=I mmunizations parameters=ValueIfNull:Not [...] macroname=RecentLabResultsTable parameters=OptionalFlowsheetCategory:Chemistries,Label:Chemistries spantype=macro title=#RecentLabResultsTable(Option alFlowsheetCategory:Chemistries,Label:Chemistries)></span>
<span class=&q uot;clinicalNoteMacrIAighclarke county hospitaled id=[id number] macroname=RecentL abResultsTable parameters=OptionalFlowsheetCategory:Tumor Markers,Label:Tumor Markers" spantype=macro title=#RecentLabResultsTable(OptionalFlowsheetCategory:Tumor Ma rkers,Label:Tumor Markers)></span>
<span class=clinicalNoteMacroHig hlighted id=[id number] macroname=RecentLabResultsTable para meters=OptionalFlowsheetCategory:Anemia Labs,Label:Anemia Results spantype=macro" title=#RecentLabResultsTable(OptionalFlowsheetCategory:Anemia Labs,Label:Anemia Results)"></span></span></span>

<span class=clinicalNot eSectionShowSeparators clinicalNoteSectionVisible id=[id number] internalbreaksection=false originalname=Surveys/Consents/Other Discussions recognizeconcepts=true spantype=section suppressempty=true>Surveys/Consents/Other Discussions</span>

<hr><span style="font-size:12px><span style=font-family:[place],Helvetica,sans-serif>
Thank you for allowing me to see [...]
--- OUTSIDE RECORDS SUMMARY | 2025-07-31 19:38 | XMS_ITS ---
Author Name Interface, [id number] lity Address [address] [facility] [address] [address] Organization [facility] Address [address] [facility] [address] [address] Support Name Relationship Address Phone FREEDOM ALEMAN [...] 1 HR 07/07/2023 APPOINTMENT CHART CHECK 5 MS N 07/05/2023 APPOINTMENT [facility] LOW UP 20 MIN 07/05/2023 [...] 10.0 130.0 5.80 Low FINAL Enzo Garg [facility], [facility] [address] [phone] [phone] Phone: () - 07/05 Iron profi le TIBC ug/dL 250.0 425.0 410 FINAL Enzo Garg [facility], [address] [phone] 0 Phone: () - 07/05 Iron profi le Iron ug/dL 50.0 175.0 43 Low FINAL Enzo Garg [facility], [address] [facility] [address] [id number] 0 Phone: () - 07/05 Iron profi le Unbou nd iron capac ity ug/dL 75.0 410.0 367 FINAL Enzo Garg [place] [address] [phone] 0 Phone: () - 07/05 Iron profi le Iron, % satur ation % 20.0 55.0 10 Low FINAL Enzo Garg [facility], [address] [phone] 0 Phone: () - 07/05 CBC w/ auto diff WBC K/uL 3.0 8.9 7.1 FINAL [facility] [place], [address] [place] [phone] 0 Phone: () - 07/05 CBC w/ auto diff HGB g/dL 11.3 15.2 11.5 FINAL [facility] [place], [address] [place] [phone] 0 Phone: () - 07/05 CBC w/ auto diff PLT K/uL 113.0 364.0 302 FINAL [facility] [place], [address] [place] [phone] 0 Phone: () - 07/05 CBC w/ auto diff Fly # (ANC) K/uL 1.6 6.6 4.5 FINAL [facility] [place], [address] [place] [phone] 0 Phone: () - 07/05 CBC w/ auto diff Fly % % 43.0 74.0 62.6 FINAL [facility] [place], [address] [place] [phone] 0 Phone: () - 07/05 CBC w/ auto diff IG % % 0.0 0.5 0.3 FINAL [facility] [place], [address] [place] [phone] 0 Phone: () - 07/05 CBC w/ auto diff IG # K/uL 0.0 0.03 0.02 FINAL [facility] [place], [address] [place] [phone] 0 Phone: () - 07/05 CBC w/ auto diff LY % % 14.0 41.0 29.7 FINAL [facility] [place], [address] [place] [phone] 0 Phone: () - 07/05 CBC w/ auto diff MO % % 6.0 15.0 5.9 Low FINAL [facility] [place], [address] [place] [phone] 0 Phone: () - 07/05 CBC w/ auto diff EO % % 0.0 7.0 1.4 FINAL [facility] [place], [address] [place] [phone] 0 Phone: () - 07/05 CBC w/ auto diff BA % % 0.0 2.0 0.1 FINAL [facility] [place], [address] [place] [phone] 0 Phone: () - 07/05 CBC w/ auto diff LY # K/uL 0.4 3.6 2.1 FINAL [facility] [place], [address] [place] [phone] 0 Phone: () - 07/05 CBC w/ auto diff MO # K/uL 0.2 1.3 0.4 FINAL [facility] [place], [address] [place] [phone] 0 Phone: () - 07/05 CBC w/ auto diff EO # K/uL 0.0 0.6 0.1 FINAL [facility] [place], [address] [place] [phone] 0 Phone: () - 07/05 CBC w/ auto diff BA # K/uL 0.0 0.2 0.0 FINAL [facility] [place], [address] [place] [phone] 0 Phone: () - 07/05 CBC w/ auto diff NRBC % #/100W BC 0.0 0.2 0.0 FINAL [facility] [place], [address] [place] [phone] 0 Phone: () - 07/05 CBC w/ auto diff RBC M/uL 3.9 5.1 3.81 Low FINAL [facility] [place], [address] [place] [phone] 0 Phone: () - 07/05 CBC w/ auto diff HCT % 35.0 48.0 35.8 FINAL [facility] [place], [address] [place] [phone] 0 Phone: () - 07/05 CBC w/ auto diff MCV fL 80.0 104.0 94.0 FINAL [facility] [place], [address] [place] [phone] 0 Phone: () - 07/05 CBC w/ auto diff MCH pg 26.0 35.0 30.2 FINAL [facility] [place], [address] [place] [phone] 0 Phone: () - 07/05 CBC w/ auto diff MCHC g/dL 30.0 35.0 32.1 FINAL [facility] [place], [address] [place] [phone] 0 Phone: () - 07/05 CBC w/ auto diff MPV fL 9.5 13.4 9.1 Low FINAL [facility] [place], [address] [place] [phone] 0 Phone: () - 07/05 CBC w/ auto diff RDW % 11.4 16.1 15.70 FINAL [facility] [place], [address] [place] [phone] 0 Phone: () - 01/19 [facility] other lab See mental hygiene consultant d 02/17 [facility] other lab See mental hygiene consultant d 03/14 [facility] other lab See mental hygiene consultant d 03/27 [facility] other lab See attache patel 04/02 [facility] other lab See attache patel 04/06 [facility] other lab See attache patel Medications Date [...] Onc Consult <html><head></head><body><div style=text-align:center><span style=font- size:9px></span><span style=font-size:12px><span style=font-family:Graettinger,Helvetica,sans-serif><span class=clinicalNote MacroHighlighted id=[id number] macroname=PracticeLetterhead&quot ; spantype=macro title=#PracticeLetterhead><img iletvv=622 src=live/fileDownload?[email or web address]&nyioCaashfguxyIu=[id number] uknrc=261> </span></span></span>
</div><span style=font-size:12px"><span style=font-family:Graettinger,Helvetica,sans-serif>
<strong>Patient Name: </strong><span class=clinicalNoteMacroHighlighted id=&quo t;[id number] macroname=PatientName spantype=macro title=&q uot;#PatientName>KALEB ALEMAN CARDONA</span>
<strong>MRN: &lt ;/strong><span class=clinicalNoteMacroHighlighted id=[id number]& quot; macroname=PatientMRN spantype=macro title=#PatientMRN>[id number]</span>
<strong>Date of : </strong><span class=&qu ot;clinicalNoteMacroHighlighted id=[id number] macroname=Patient DateOfBirth spantype=macro title=#PatientDateOfBirth>1995< /span>
<strong>Date of Service: </strong><span class=clini calNoteMacroHighlighted id=[id number] macroname=EffectiveDate&qu ot; spantype=macro title=#EffectiveDate>07/05/2023</span></span& gt;</span>
<strong>Attending Physician: </strong><span class=clinicalNoteMacroHighlighted id=[id number] macroname= AttendingPhysician spantype=macro title=#AttendingPhysician>Enzo Garg (Hematology/Oncology)</span>
<strong>Referring Physician:</strong&g t; <span class=clinicalNoteMacroHighlighted id=[id number]& quot; macroname=ReferringPhysician spantype=macro title=#ReferringPhys ician> </span>

<div style=text-align:center><span style=font-size:12px><span style=font-family:Graettinger,Helvetica,sans- serif><strong>INITIAL HEMATOLOGY/MEDICAL ONCOLOGY CONSULTATIO N</strong></span></span>

</div><span style=font-size:12px><span style=font-family:Graettinger,Helvetica,sans-serif><span style=font- size:12px><span style=font-family:Graettinger,Helvetica,sans-serif&g t;</span></span><span class=clinicalNoteSectionShowSeparators clinicalNoteSecti onVisible id=[id number] internalbreaksection=false origi [...] to continue oral iron

<span style=font-size:12px&quo t;><span style=font-family:Graettinger,Helvetica,sans-serif><span class=clin icalNoteSectionShowSeparators clinicalNoteSectionVisible id=[id number]" internalbreaksection=false originalname=Advanced Care [...] pain planindicated for today's visit</span><span style=font-size:12px><span st yle=font-family:Graettinger,Helvetica,sans-serif>
<span style=font-size:1 2px><span style=font-family:Graettinger,Helvetica,sans-serif><span style=&qu ot;font-size:12px><span style=font-family:Graettinger,Helvetica,sans-serif><span style=font-size:12px><span style=font-family:Graettinger,Helvetica,sans-serif ><span style=font-family:Graettinger><span class=clinicalNoteSectionShowSeparators clinicalNoteSectionVisible id=[id number] internalbreaks ection=false originalname=Smoking Status recognizeconcepts=true spantype=section suppressempty=true>Smoking Status</span>
Smoking Status: <span class=clinicalNoteMacroHighlighted id=[id number] macroname=PatientSmokingStatus parameters=ValueIfNull:Not recor ded. spantype=macro title=#PatientSmokingStatus(ValueIfNull:Not recorded.)&q uot;>Smoking Tobacco : Former smoker, stopped smokin; Smokeless Tobacco : Never used smokeless tobacco; Vaping : Current vape user</span></span></span></span></spa n></span></span></span></span></span>

<span style=font-size:12px><span style=font-family:Graettinger,Helvetica,sans-serif><span style=font- size:12px><span style=font-family:Graettinger,Helvetica,sans-serif><span class=clinicalNoteSectionShowSeparators clinicalNoteSectionVisible" id=[id number] internalbreaksection=false originalname=&q uot;History of [...] History of Present Illness.
<span style=font-size:12px><span style=&q uot;font-family:Graettinger,Helvetica,sans-serif><span class=clinicalNoteSectionShowSeparators clinicalNoteSectionVisible id=[id number] internalbreaksection=false originalname=Past Medical History recognizeconcepts=true spantype=section suppressempty=false>Past Medical and Surgical History&l t;/span></span></span>
History of iron deficiency anemia

<span style=font-size:12px><span style=font-family:Graettinger,Helvetica,sans-s erif><span class=clinicalNoteSectionShowSeparators clinicalNoteSectionVisible" id=[id number] internalbreaksection=false originalname=Current Medications [...] Subcutaneous)</td> <td width=40%>07/05/2023</td> </tr> </tbody></table></span></span></span>
<span style=font-size:12px><span style=font-family:Graettinger,Helvetica,sans-serif><span class=&quo t;clinicalNoteSectionShowSeparators clinicalNoteSectionVisible id=[id number] internalbreaksection=false originalname=Allergies recognizeconcepts=true spantype=section suppressempty=false>Allergies</span>
<span class=clinicalNoteMacroHighlighted id=[id number] macroname=AllergyTable spantype=macro title=#AllergyTable"><table border=1 style=width:100%> <tbody> <tr> <td colspan=4>Current Allergy List</td> </tr> <tr> <td width="100px>Allergy Name</td> <td pbxdc=299lv>Severity</td> <td xqrug=759os>Status</td> <td ukvdp=705hy>Recording Date</td> </tr> <tr> <td ipnif=800yx>NSAIDS (Non- Steroidal Anti-Inflammatory Drug)</td> <td xxzsl=334gr>
</td> <td jmtoi=361lb>Active</td> <td fhlsi=777qm>07/05/2023</td> </tr> <tr> <td cptrn=051pi>Zithromax</td> <td lozpo=215he>
</td> <td mbznk=042ce>Active</td> <td ctrwn=326gu">07/05/2023</td> </tr> </tbody></table></span></span></span>
<span style=font-size:12px><span style=font-family:Graettinger,Helvetica,sans-serif><span class=clinicalNoteSectionShowSeparators clinicalNoteSectionVisible id=[id number] internalbreaksection=false originalname=Family History recognizeconcepts=true spantype=section" suppressempty=false>Family History</span></span></span>
Maternal grandmother had DVT/PE, but this was in the setting of malignancy

<span style=font-size:12px><span style=font-family:Graettinger,Helvetica,sans- serif><span class=clinicalNoteSectionShowSeparators clinicalNoteSectionVisible" id=[id number] internalbreaksection=false originalname="Social History recognizeconcepts=true spantype=section suppressempty=true>Social History</span></span></span>
Has 2 children, ages 4 and 2. Former smoker, quit in 2016. No significant alcohol use.

<span style=font-size:12px><span style=font-family:Graettinger,Helvetica,sans- serif><span class=clinicalNoteSectionShowSeparators clinicalNoteSectionV isible id=[id number] internalbreaksection=false original name=Vital Signs and Pain Scale recognizeconcepts=true spantype=section suppressempty=false>Vital Signs</span>
<span class=cl inicalNoteMacroHighlighted id=[id number] macroname=PatientVita lSigns parameters=LookBackDays:1 spantype=macro title=#PatientVi talSigns(LookBackDays:1)>Blood pressure: 152/86, Pulse: 93, Temperature: 96 F, Respirations: 16, O2 sat: 99%, Pain Scale: 0, Height: 68.75 in, Weight: 297.2 lb, BSA: 2.44, BMI: 44.21 kg/m2</span></span></span>
<span style=font-size:12px><spanstyle=font-family:Graettinger,Helvetica,sans-serif><span style=font-size:12px"><span style=font-family:Graettinger,Helvetica,sans-serif>Immunizations: <span cl ass=clinicalNoteMacroHighlighted id=[id number] macroname=I mmunizations parameters=ValueIfNull:Not [...] <td>
</td> <td>
</td> </tr> </tbody></table></span>
<span class=clinicalNoteMacroHighmanning regional healthcare centered id=[id number] macroname=RecentLabResultsTable parameters=OptionalFlowsheetCategory:Chemistries,Label:Chemistries spantype=macro title=#RecentLabResultsTable(Option alFlowsheetCategory:Chemistries,Label:Chemistries)></span>
<span class=&q uot;clinicalNoteMacrTXighmanning regional healthcare centered id=[id number] macroname=RecentL abResultsTable parameters=OptionalFlowsheetCategory:Tumor Markers,Label:Tumor Markers" spantype=macro title=#RecentLabResultsTable(OptionalFlowsheetCategory:Tumor Ma rkers,Label:Tumor Markers)></span>
<span class=clinicalNoteMacroHig hlighted id=[id number] macroname=RecentLabResultsTable para meters=OptionalFlowsheetCategory:Anemia Labs,Label:Anemia Results spantype=macro" title=#RecentLabResultsTable(OptionalFlowsheetCategory:Anemia Labs,Label:Anemia Results)"></span></span></span>

<span class=clinicalNot eSectionShowSeparators clinicalNoteSectionVisible id=[id number] internalbreaksection=false originalname=Surveys/Consents/Other Discussions recognizeconcepts=true spantype=section suppressempty=true>Surveys/Consents/Other Discussions</span>

<hr><span style="font-size:12px><span style=font-family:Graettinger,Helvetica,sans-serif>
Thank you for allowing me to see [...]
--- OUTSIDE RECORDS SUMMARY | 2025-07-31 19:38 | XMS_ITS | CCD ---
Author Name Interface, [id number] lity Address [address] [place] [address] [address] [address] Organization [facility] Address [address] [facility] [address] [place] [address] Care Team Providers Care Federal Judge Name [...]
--- OUTSIDE RECORDS SUMMARY | 2025-07-31 19:39 | XMS_ITS | CCD ---
Author Name Interface, [id number] lity Address [address] [place] [address] [address] [address] Organization [facility] Address [address] [facility] [address] [place] [address] Care Team Providers Care Food Operations Manager Name Role Phone Enzo Garg MD Unavailable [...]
[2025-07-31 21:25] LABS: D Dimer Quantitative* 0.91 ug/ml (0.00-0.50)
[2025-07-31 22:00] VITALS: BP 149/99; PULSE 74; RESP 18; TEMP 36.8; O2SAT 98
[2025-07-31] MEDS: HEPARIN 5,000 UNIT/0.5 ML INJ 9900 UNIT IVP (22:27)
[2025-07-31 22:45] VITALS: BP 144/101; PULSE 71; RESP 16; O2SAT 98
[2025-07-31 22:50] LABS: INR 1.01 (0.91-1.10); Prothrombin Time 14.2 Seconds
[2025-07-31 22:52] LABS: Hematocrit* 33.5 % (33.0-51.0); Hemoglobin* 11.5 gm/dL (12.0-16.0); Mean Corpuscular HGB Conc 34 gm/dL (32-36); Mean Corpuscular Hemoglobin 35 pg (26-34); Mean Corpuscular Volume 103 fL (80-100); Red Blood Count* 3.25 m/uL (4.00-5.20); Slide Review Reflex No; White Blood Count* 6.61 K/uL (4.50-11.00)
[2025-07-31] MEDS: HEPARIN 25,000 UNIT/500 ML BAG 30 UNIT IV (22:53)
[2025-07-31 23:14] VITALS: BMI 39.9
[2025-07-31 23:31] VITALS: BP 144/99; PULSE 84; RESP 20; TEMP 36.8; O2SAT 94
[2025-07-31 23:57] VITALS: O2SAT 99
--- NOTE | 2025-08-01 00:30 | PM.IMHP1 ---
Assessment and Plan Assessment and plan (1) Leg swelling: Problem comment: Ultrasound looking for DVT in the emergency department was limited and the posterior tibial vein was not visualized. In discussion with the patient the ER doc decided to start her on heparin IV and obtain repeat imaging tomorrow. I am therefore admitting her for observation overnight on IV heparin until the imaging can be repeated tomorrow. Although she is complaining of some tingling and cold feeling in her lower extremity, she has good pulses and her skin is warm to the touch in the lower extremities which are reassuring and make peripheral arterial clot less likely. She has had some difficulty with hydrocodone causing nausea and her provider had recently switched her to Dilaudid orally, so we will use that for pain. Status: Acute (2) Rosacea: Problem comment: Continue doxycycline Status: Chronic (3) Phlebitis of superficial vein: Problem comment: RUE - treat with p.r.n. 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 She denies chest pain or shortness of breath. She is currently on twice a day Lovenox, therapeutic doses for PE, and she has been on Lovenox at this dose for about a year now. She states that she has had breakthrough clots before and she has been seen at [place] for testing and discussions about IVC filter, but no specific cause of thrombophilia was found yet although they did identify that her homocystine levels were elevated and she has been taking folate to treat that. She complains that in the last hour her left foot feels numb and tingly and cold. Also of note is that she had a CTA of her chest yesterday which showed no evidence of acute pulmonary emboli. 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 ?D52.0 - Dietary folate deficiency anemia (ICD-10) 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9 - Obesity, unspecified (ICD-10) Mesenteric lymphadenitis ?I88.0 - Nonspecific mesenteric lymphadenitis (ICD-10) Rosacea ?L71.9 - Rosacea, unspecified (ICD-10) DVT (deep venous thrombosis) ?I82.409 - Acute embolism and thrombosis of unspecified deep veins of unspecified lower extremity (ICD-10) Pulmonary emboli ?I26.99 - Other pulmonary embolism without acute cor pulmonale (ICD-10) Surgical History (Updated 08/01/25 @ 00:39 by Steph Navarrete MD) History of esophagogastroduodenoscopy (EGD) ?Z98.890 - Other specified postprocedural states (ICD-10) S/P laparoscopic sleeve gastrectomy ?Z98.84 - Bariatric surgery status (ICD-10) Family History (Updated 08/01/25 @ 00:40 by Steph Navarrete MD) Other Colon cancer Diabetes High blood pressure High cholesterol Stroke Social History (Updated 08/01/25 @ 00:40 by Steph Navarrete MD) Narrative: 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 Denies tobacco, alcohol or recreational drug use. What is your current living situation?: I presently have a place to live Problems where you live: no known problems In the past 12 months, utilities in danger of being shut off: no In past 12 months, lack of transportation kept you from medical appts, meetings, work, or getting things needed for daily living: no In the past 12 mos, have been you worried that your food would run out before you had money to buy more?: never true In the past 12 mos, the food you bought just didn't last and you didn't have money to buy more?: never true Smoking Status: Former smoker Do you use any of these nicotine containing products: None Nicotine containing products detail: Quit over 5 years ago How often do you have a drink containing alcohol: monthly or less AUDIT-C Alcohol total score: 1 Non-prescribed substance use: denies use How often does anyone, including family, friends and others, physically hurt you: never How often does anyone, including family, friends and others, insult or talk down to you: never How often does anyone, including family, friends and others, threaten you with harm: never How often does anyone, including family, friends and others, scream or curse at you: never Meds Home Medications and Allergies Home Medications ?Medication ?Instructions ?Recorded ?Confirmed ?Type ferrous sulfate 325 mg (65 mg 325 mg PO DAILY 05/18/24 08/01/25 History iron) tablet (Feosol) potassium 99 mg tablet 99 mg PO DAILY 05/18/24 08/01/25 History escitalopram oxalate 10 mg tablet 10 mg PO QAM 05/27/25 08/01/25 History tizanidine 4 mg tablet 4 mg PO 3XD PRN muscle spasm 05/27/25 08/01/25 History cyanocobalamin (vitamin B-12) sublingual 07/30/25 History 1,000 mcg sublingual tablet doxycycline monohydrate 100 mg 100 mg PO DAILY 07/30/25 08/01/25 History capsule enoxaparin 150 mg/mL subcutaneous 125 mg subcut Q12H 07/30/25 08/01/25 History syringe Allergies Allergy/AdvReac Type Severity Reaction Status Date / Time azithromycin Allergy Unknown Verified 07/30/25 20:13 hydrocodone Allergy Unknown Verified 07/30/25 20:13 tramadol Allergy Unknown Verified 07/30/25 20:13 Exam Narrative: Exam Narrative: General: No acute distress. Awake alert oriented x3. Central obesity, no buffalo hump or weller facies. HEENT: Normocephalic atraumatic, pupils equally round and reactive to light and accommodation. Oropharynx clear. Mucous membranes are moist. No cervical lymphadenopathy, thyromegaly or carotid bruits. No JVD. Cardiovascular: Regular rate and rhythm. No murmurs, gallops, or rubs. Chest: No increased work of breathing. Clear to auscultation bilaterally. No crackles or wheezes. Abdomen: Bowel sounds present. Soft, nondistended, nontender. No hepatosplenomegaly or masses. Extremities: Trace bilateral ankle and foot edema, slightly worse on the left low ankle, no erythema or ecchymosis, nontender to palpation, no calf tenderness, no cyanosis or clubbing. Normal DP and PT pulses bilaterally. Good capillary refill in both feet and feet are appropriately warm to the touch. Light touch sensation is intact. Strength is 5/5 in both lower extremities. Skin: Severe rosacea on bilateral cheeks, nose and forehead are spared. No jaundice, no pallor. Const: Vital Signs, click to edit/add: Vital Signs - 24 hr 07/31/25 18:56 07/31/25 22:00 07/31/25 22:45 Temperature 98.4 F 98.3 F Pulse Rate [Pulse Oximeter] 98 74 71 Respiratory Rate 20 18 16 Blood Pressure [Le ft Arm] Blood Pressure [Le ft Upper Arm] 148/84 H 149/99 H 144/101 H Pulse Oximetry 97 98 98 Oxygen Delivery Me thod Room Air Room Air Room Air 07/31/25 23:31 07/31/25 23:57 Temperature 98.2 F Pulse Rate [Pulse Oximeter] 84 Respiratory Rate 20 Blood Pressure [Le ft Arm] 144/99 H Blood Pressure [Le ft Upper Arm] Pulse Oximetry 94 20 L Oxygen Delivery Me thod Room Air Room Air Hospitalist - H&P: Result Labs Labs: Short CBC 07/31/25 Range/Units 21:00 WBC 6.61 (4.50-11.00) K/uL Hgb 11.5 L (12.0-16.0) gm/dL Hct 33.5 (33.0-51.0) % Plt Count 250 (140-440) K/uL Ordering Physician: Ngoc Mayen M.D. Date of Service: 07/31/25 Procedure(s): US venous LE LT Accession Number(s): [id number] cc: Ngoc Mayen M.D.; Provider,Not a Local~ For Patients: As a result of the Cures Act, medical imaging exams and procedure reports are released immediately into your electronic medical record. You may view this report before your referring provider. If you have questions, please contact your health care provider. INDICATION: Leg pain and swelling. TECHNIQUE: Ultrasound venous duplex lower left extremity. Compression venous exam was performed using abdullahi-scale, color Doppler, and spectral Doppler analysis. COMPARISON: None. FINDINGS: Limited evaluation due to underlying body habitus. Deep veins: Sonographic imaging demonstrates the left common femoral, deep femoral, superficial femoral, popliteal, and the contralateral right common femoral veins to be fully compressible. The posterior tibial vein is not visualized. Superficial veins: Greater saphenous vein is fully compressible. IMPRESSION: Limited evaluation as above. The posterior tibial vein was not visualized. Otherwise no evidence of deep venous thrombus. Dictated by Rene Michaud MD @ 07/31/2025 8:48:47 PM (Electronically Signed)
[2025-08-01] MEDS: TIZANIDINE HCL 4 MG TABLET PO ×2 (00:56→08:34)
[2025-08-01 02:25] VITALS: BP 105/57; PULSE 72; RESP 17; TEMP 36.3; O2SAT 96
[2025-08-01 02:33] VITALS: O2SAT 95
[2025-08-01] MEDS: ONDANSETRON 2 MG/ML inj 4 MG IVP ×2 (04:24→11:20)
[2025-08-01] MEDS: ACETAMINOPHEN 500 MG TABLET 1000 MG PO ×2 (05:18→13:37)
[2025-08-01 05:29] LABS: Hematocrit* 30.5 % (33.0-51.0); Hemoglobin* 10.5 gm/dL (12.0-16.0); Mean Corpuscular HGB Conc 34 gm/dL (32-36); Mean Corpuscular Hemoglobin 36 pg (26-34); Mean Corpuscular Volume 103 fL (80-100); Red Blood Count* 2.95 m/uL (4.00-5.20); White Blood Count* 5.49 K/uL (4.50-11.00)
[2025-08-01 05:38] LABS: INR 1.05 (0.91-1.10); Prothrombin Time 14.5 Seconds
[2025-08-01 05:40] LABS: Slide Review Reflex No
[2025-08-01] MEDS: HEPARIN 5,000 UNIT/0.5 ML INJ 3700 UNIT IVP (06:19)
[2025-08-01 07:00] VITALS: PULSE 78; PULSE 94
[2025-08-01 07:36] VITALS: BP 122/75; PULSE 78; RESP 16; TEMP 36.2; O2SAT 95
--- NOTE | 2025-08-01 08:22 | PC.NURSE ---
Shift note ([id number]): Patient arrived at 2302. Pleasant, alert and oriented. Rated pain 15/10 in right arm and 7/10 in left leg upon admission. Ambulates independently. Reported increased pain in right arm that was so intense was causing nausea and pt vomited.? Given PRN Zofran at that time. Remote MD called and new orders were obtained?for?pain control and nausea. Given PRN Dilaudid and scheduled Tylenol for pain in right arm and left leg rated 6-10/10. Continues on Heparin drip. Heparin bolus given this morning and rate was increased per lab parameter orders. ?
[2025-08-01] MEDS: FERROUS SULFATE 325 MG TABLET PO (08:34)
[2025-08-01] MEDS: DOXYCYCLINE HYCLATE 100 MG PO (08:34)
[2025-08-01] MEDS: SODIUM CHLORIDE 0.9 % (FLUSH) 10 ML SYRINGE 5 ML IVF (08:35)
[2025-08-01] MEDS: PROCHLORPERAZINE 5 MG/ML VIAL IVP (08:42)
[2025-08-01] MEDS: SENNOSIDES/DOCUSATE TABLET 1 TAB PO (08:43)
--- NOTE | 2025-08-01 09:00 | CRLHL7_ITS ---
For Patients: As a result of the Century Cures Act, medical imaging exams and procedure reports are released immediately into your electronic medical record. You may view this report before your referring provider. If you have questions, please contact your health care provider. INDICATION: Left lower extremity swelling, history of DVT and PEs TECHNIQUE: Ultrasound venous duplex lower left extremity. Compression venous exam was performed using abdullahi-scale, color Doppler, and spectral Doppler analysis. COMPARISON: Duplex Doppler ultrasound lower extremities July 31, 2025 FINDINGS: Sonographic imaging demonstrates the left common femoral, deep femoral, superficial femoral, popliteal, posterior tibial and greater saphenous and the contralateral right common femoral veins to be fully compressible with normal color Doppler blood flow. IMPRESSION: Improved visualization of the posterior tibial and peroneotibial trunk without evidence of deep venous thrombosis. Dictated by Pilo Lane MD @ 08/01/2025 12:04:01 PM (Electronically Signed)
--- NOTE | 2025-08-01 10:35 | PM.DS1 ---
DS: Providers Provider Date Seen: 08/01/25 Date of admission: 07/31/25 23:01 Primary care physician: Not a Local Provider Admitting Clinician: Steph Navarrete MD Attending Physician on discharge: Latasha Cheung MD Date of Discharge: 08/01/25 DS: Diagnosis Discharge Diagnosis (1) Leg swelling: Status: Acute Problem details: - ER ultrasound with limited visualization, admitted on heparin drip for repat imaging - repeat ultrasound 08/01 negative for acute DVT - required IV Dilaudid for pain management, has oral Rx at home per P[employer] DESIGN [employer] (2) Rosacea: Status: Chronic Problem details: - Continue doxycycline per outpatient Rx (3) Phlebitis of superficial vein: Status: Acute Problem details: - of RUE; treat with prn heat and elevation, patient is already on blood thinning as above (4) Thrombophilia: Status: Chronic Problem details: - follows with [facility] vascular surgery (5) Obesity (BMI 30-39.9): Status: Chronic DS: Summary Hospital Course Hospital Course: Karo Live is a 30 year old female with thrombophilia, recurrent PE and DVTs, who presented to the hospital for left lower extremity swelling and a right superficial thrombophlebitis. In the emergency room, ultrasound of lower extremity was non diagnostic; admitted on heparin drip for repeat imaging. As an outpatient, she is on Lovenox, 1 mg/kg BID. She reports not missing any doses. Required IV Dilaudid for pain management 2/2 nausea from other narcotics. Tolerated po intake. Repeat imaging on 08/01/25 was negative for acute DVT. Medically appropriate for discharge to home on previous dose of Lovenox with close PCP follow-up and vascular surgery follow-up at [facility]. Status at Discharge Functional status at discharge: independent ambulation Overall status at discharge: patient is progressing back to baseline Time Spent with Patient Time attestation: Total time spent providing and/or coordinating discharge services: Time spent: Greater than 30 minutes Specific discharge activities: Chart review, medication reconciliation Exam Narrative: Exam Narrative: GEN: Alert and oriented, nontoxic HEENT: EOMIs bilaterally, no scleral icterus CV: RRR, No concerning murmurs R: LCTA bilaterally Ext: Mild lower extremity edema with 1+ pitting, symmetric. Feet are warm, normal peripheral pulses with normal sensation and range of motion of toes bilaterally Skin: Rosacea is baseline Neuro: No focal deficits Psych: Appropriate Const: Vital Signs, click to edit/add: Vital Signs - 24 hr 07/31/25 18:56 07/31/25 22:00 07/31/25 22:45 Temperature 98.4 F 98.3 F Pulse Rate Pulse Rate [Pulse Oximeter] 98 74 71 Respiratory Rate 20 18 16 Blood Pressure [Le ft Arm] Blood Pressure [Le ft Upper Arm] 148/84 H 149/99 H 144/101 H Pulse Oximetry 97 98 98 Oxygen Delivery Me thod Room Air Room Air Room Air 07/31/25 23:31 07/31/25 23:57 08/01/25 02:25 Temperature 98.2 F 97.3 F L Pulse Rate Pulse Rate [Pulse Oximeter] 84 72 Respiratory Rate 20 17 Blood Pressure [Le ft Arm] 144/99 H 105/57 L Blood Pressure [Le ft Upper Arm] Pulse Oximetry 94 99 96 Oxygen Delivery Me thod Room Air Room Air Room Air 08/01/25 02:33 08/01/25 07:00 08/01/25 07:00 Temperature Pulse Rate 94 Pulse Rate [Pulse Oximeter] 78 Respiratory Rate Blood Pressure [Le ft Arm] Blood Pressure [Le ft Upper Arm] Pulse Oximetry 95 Oxygen Delivery Me thod 08/01/25 07:36 Temperature 97.2 F L Pulse Rate Pulse Rate [Pulse Oximeter] 78 Respiratory Rate 16 Blood Pressure [Le ft Arm] 122/75 Blood Pressure [Le ft Upper Arm] Pulse Oximetry 95 Oxygen Delivery Me thod Room Air DS: Data Data Completed and Pending Labs on day of discharge: Labs from last 24 hours 08/01/25 07/31/25 07/31/25 05:10 22:16 21:00 WBC 5.49 6.61 RBC 2.95 L 3.25 L Hgb 10.5 L 11.5 L Hct 30.5 L 33.5 MCV 103 H 103 H MCH 36 H 35 H MCHC 34 34 Plt Count 228 250 INR 1.05 1.01 APTT 44 H 25 D-Dimer Quant (PE/DVT) 0.91 H Discharge Plan Discharge Disposition: Home, Self-Care Date of Admission: 07/31/25 23:01 Attending Provider on Discharge: Latasha Cheung Primary Care Provider: Provider,Not a Local Condition: Improved Anticipated Discharge Date/Time: 08/01/25 10:24 Discharge Medications: Continued tizanidine 4 mg tablet 4 mg PO Q6H PRN (Reason: muscle spasm) escitalopram oxalate 10 mg tablet 10 mg PO DAILY doxycycline monohydrate 100 mg capsule 100 mg PO DAILY enoxaparin 150 mg/mL syringe 150 mg subcut Q12H cyanocobalamin (vitamin B-12) 1,000 mcg tablet, sublingual 1,000 mcg sublingual DAILY ferrous sulfate [Feosol] 325 mg (65 mg iron) tablet 325 mg PO DAILY ascorbic acid (vitamin C) 1,000 mg tablet 1 g PO DAILY folic acid 1 mg tablet 2 mg PO BID multivitamin [Daily Multi-Vitamin] Tablet 1 tab PO DAILY Discharge Orders: Discharge Order (Routine); Ordered 08/01/25 Ordered By: Latasha Cheung Patient Education: Superficial Thrombophlebitis (DC) Additional Instructions: No acute deep blood clots - good news! Try EDEMA WEAR for arms, legs, and sore spots from your thrombophlebitis. Followup with [facility] as scheduled. I know you don't like having pain medications at home, but I think it's a good idea to have the Rx that you received from Dr. Tran and Dr. Sinclair available if needed. Activity Level: Activity as Tolerated Discharge Diet: Regular Follow Up Appointments: Jose Tran MD [Referring, Family Practice] - 08/07/25 1:00 pm Referral Note: [facility] for hospital follow-up. Forms: Patient Belongings, [facility] Info Instructions
[2025-08-01 11:17] VITALS: BP 101/43; PULSE 78; RESP 16; TEMP 36.2; O2SAT 94
[2025-08-01] MEDS: ENOXAPARIN 120 MG/0.8 ML INJ SUBCUT (12:24)
--- NOTE | 2025-08-01 14:57 | PC.NURSE ---
Pt pleasant to care for. VSS. Pain was controlled with pain medication and elevation. Pt swelling in the right arm and left leg were unchanged. Pt signed belongings page and discharge instructions, no further questions at this time. Pt discharged home at 1450 via self-pay taxi.
== END 2025-08-01 14:50 | disposition home or self-care (01) ==
LOC: ED 22:16 → MEDSURG 23:02
PROVIDERS: Admitting Provider Family Medicine; Emergency Provider Family Medicine; Visit Provider Family Medicine
DX: L71.9 Rosacea, unspecified (principal); E66.9 Obesity, unspecified; D68.59 Other primary thrombophilia; I80.8 Phlebitis and thrombophlebitis of other sites; Z68.30 Body mass index [BMI] 30.0-30.9, adult; Z79.01 Long term (current) use of anticoagulants
CPT/HCPCS: 36415; 85027; 85379; 85610; 85730; 93971; 96374; 96375; 96376; 99284; 99285; A9270; G0378; J0780; J1171; J1644; J1650; J2405

== ENCOUNTER 2025-08-07 22:52 | Emergency (ER) | payer BC, SELFPAY ==
--- OUTSIDE RECORDS SUMMARY | 2025-06-28 14:00 | XMS_ITS | Encounter Summary ---
Author Organization [facility] Address [address] [place] [address] Care Team Providers Care Manager Functional Name Role Phone Elsewhere, Pcp Primary Care Provider Unavailabl e Reason for Referral * Outpatient (Routine) - Closed Specialty Diagnoses / Procedures Referred By Contac t Referred To Contact Vascular Medicine Hang Arrington M.D. [address] [place] [address] Phone: tel: fax: [facility] Referral ID Status Reason Start Date Expiration Date Visits Re quested Visits Authorized [id number] Closed 06/28/2025 12/28/2026 1 1 Scheduling Instructions 4:30 p.m. virtual visit * Cardiovascular-Diagnostic (Routine) - Authorized Specialty Diagnoses / Procedures Referred By Contac t Referred To Contact Diagnoses Embolus Pulmonary (HCC) Palpitations Hyperhomocysteinemia (HCC) Anemia B12 Deficiency Anticoagulant Therapy Procedures ECG Heart rhythm monitor (Holter) Hang Arrington M.D. [address] [place] [address] Phone: tel: fax: [facility] Referral ID Status Reason Start Date Expiration Date V isits Requested Visits Authorized [id number] Authorized 06/28/2025 09/28/2026 1 1 Reason for Visit * Outpatient (Routine) - Closed Specialty Diagnoses / Procedures Referred By Sherri mendes Referred To Contact Vascular Medicine Hang Arrington M.D. [address] [place] [address] Phone: tel: fax: [facility] Referral ID Status Reason Start Date Expiration Date Visits Re quested Visits Authorized [id number] Closed 06/27/2025 12/27/2026 1 1 Encounter Details Date Type Department Care Team (Late st Contact Info) Description 06/28/2025 2:00 PM CDT Telemedicine Department of Vascular Medicine in [place], [place] [address] [place] [phone] Hang Arrington M.D. [address] [place] [phone] Embolus Pulmonary (HCC) (Primary Dx); Palpitations; Hyperhomocysteinemia (HCC); Anemia B12 Deficiency; Anticoagulant Therapy Social History Tobacco Use Types Packs/Day Years Used Date Smoking Tobacco: Former Cigarettes 0 05/22/2014 - 10/14/2018 Passive Smoke Exposure: Current Smokeless Tobacco: Never Alcohol Use Standard Drinks/Week Comments Not Currently 3 (1 standard drink = 0.6 oz pure alcohol) Date nights maybe wednesday and wednesday [facility] Utilities Answer Date Recorded In the past 12 months has [facility] [employer], gas, oil, or water [employer] threatened to shut off services in your [...] on file 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 She says evaluation there was negative for [...] any respiratory distress when I saw her [id number] through video visit ASSESSMENT AND PLAN #1 [...] these). Hang Arrington M.D. Vascular Medicine Pager: [phone] [1] Current Outpatient Medications Medication Sig Dispense [...] documented in this encounter Plan of Treatment Scheduled Referrals Name Type Priority Associated Diagnoses Orde r Schedule Vascular Medicine office visit (clinic) Outpatient Referral Routine Expected: 07/06/2025, Expires: 09/27/2026 documented as of this encounter Results * HOLTER MONITOR - IN CLINIC BIG MACHINE CONSULTANT (07/08/2025 5:15 AM CDT) Min Heart Rate [...] Duration 0 duration INFOBION IC MOME AF [place] 0 percent INFOBIONIC MOME Symptom Count 13 [...] these events, one PAC was seen singly. Centrifugal Supervisor: FELTON Ha Procedure Note Alcides Eng M.D., [...] these events, one PAC was seen singly. Centrifugal Supervisor: FELTON Ha Hang Arrington M.D. CV CARDIAC SERVICES PROCEDUR ES Final Result INFOBIONIC MOME NA * Heparin Anti-Xa Assay (07/06/2025 10:27 [...] LAB BLOOD NON ADD-ON Final R esult [address] [address], [place] [address] [address] documented in this encounter Visit Diagnoses Diagnosis Embolus Pulmonary (HCC)- Primary Palpitations Hyperhomocysteinemia (HCC) Anemia B12 Deficiency Anticoagulant Therapy Embolus Pulmonary (HCC) Palpitations Hyperhomocysteinemia (HCC) Anemia B12 Deficiency Anticoagulant Therapy documented in this encounter Care Teams Manager Functional Relationship Specialty Start Date End Date Elsewhere, Pcp PCP - General Internal Medicine 04/12/24 documented as of this encounter
--- OUTSIDE RECORDS SUMMARY | 2025-06-28 14:00 | XMS_ITS | Encounter Summary ---
Author Organization [facility] Address [address] [place] [address] Care Team Providers Care Lmsw Name Role Phone Elsewhere, Pcp Primary Care Provider Unavailabl e Reason for Referral * Outpatient (Routine) - Closed Specialty Diagnoses / Procedures Referred By Contac t Referred To Contact Vascular Medicine Hang Arrington M.D. [address] [place] [address] Phone: tel: fax: [facility] Referral ID Status Reason Start Date Expiration Date Visits Re quested Visits Authorized [id number] Closed 06/28/2025 12/28/2026 1 1 Scheduling Instructions 4:30 p.m. virtual visit * Cardiovascular-Diagnostic (Routine) - Authorized Specialty Diagnoses / Procedures Referred By Contac t Referred To Contact Diagnoses Embolus Pulmonary (HCC) Palpitations Hyperhomocysteinemia (HCC) Anemia B12 Deficiency Anticoagulant Therapy Procedures ECG Heart rhythm monitor (Holter) Hang Arrington M.D. [address] [place] [address] Phone: tel: fax: [facility] Referral ID Status Reason Start Date Expiration Date V isits Requested Visits Authorized [id number] Authorized 06/28/2025 09/28/2026 1 1 Reason for Visit * Outpatient (Routine) - Closed Specialty Diagnoses / Procedures Referred By Sherri mendes Referred To Contact Vascular Medicine Hang Arrington M.D. [address] [place] [address] Phone: tel: fax: [facility] Referral ID Status Reason Start Date Expiration Date Visits Re quested Visits Authorized [id number] Closed 06/27/2025 12/27/2026 1 1 Encounter Details Date Type Department Care Team (Late st Contact Info) Description 06/28/2025 2:00 PM CDT Telemedicine Department of Vascular Medicine in [place], [place] [address] [place] [phone] Hang Arrington M.D. [address] [place] [phone] Embolus Pulmonary (HCC) (Primary Dx); Palpitations; Hyperhomocysteinemia (HCC); Anemia B12 Deficiency; Anticoagulant Therapy Social History Tobacco Use Types Packs/Day Years Used Date Smoking Tobacco: Former Cigarettes 0 05/22/2014 - 10/14/2018 Passive Smoke Exposure: Current Smokeless Tobacco: Never Alcohol Use Standard Drinks/Week Comments Not Currently 3 (1 standard drink = 0.6 oz pure alcohol) Date nights maybe wednesday and wednesday [facility] Utilities Answer Date Recorded In the past 12 months has [facility] [employer], gas, oil, or water [employer] threatened to shut off services in your [...] your living situation today? 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 She says evaluation there was negative for [...] any respiratory distress when I saw her [id number] through video visit ASSESSMENT AND PLAN #1 [...] these). Hang Arrington M.D. Vascular Medicine Pager: [phone] [1] Current Outpatient Medications Medication Sig Dispense [...] Results * HOLTER MONITOR - IN CLINIC FREIGHT AND PASSENGER AGENT (07/08/2025 5:15 AM CDT) Min Heart Rate [...] Duration 0 duration INFOBION IC MOME AF Cidra 0 percent INFOBIONIC MOME Symptom Count 13 [...] these events, one PAC was seen singly. Appraisal Technician: FELTON Ha Procedure Note Alcides Eng M.D., [...] these events, one PAC was seen singly. Appraisal Technician: FELTON Ha Hang Arrington M.D. CV CARDIAC [...] LAB BLOOD NON ADD-ON Final R esult [address] [address], [place] [address] [address] documented in this encounter Visit Diagnoses Diagnosis Embolus Pulmonary (HCC)- Primary Palpitations Hyperhomocysteinemia (HCC) Anemia B12 Deficiency Anticoagulant Therapy Embolus Pulmonary (HCC) Palpitations Hyperhomocysteinemia (HCC) Anemia B12 Deficiency Anticoagulant Therapy documented in this encounter Care Teams Lmsw Relationship Specialty Start Date End Date Elsewhere, Pcp PCP - General Internal Medicine 04/12/24 documented as of this encounter
--- OUTSIDE RECORDS SUMMARY | 2025-07-06 08:30 | XMS_ITS | Encounter Summary ---
Author Organization [facility] Address [address] [place] [address] Care Team Providers Care Helicopter Pilot Name Role Phone Elsewhere, Pcp Primary Care Provider Unavailabl e Reason for Referral * MRI/CAT/PET Scan (Routine) - Closed Specialty Diagnoses / Procedures Referred By Contac t Referred To Contact Radiology Diagnoses Embolus Pulmonary (HCC) Procedures CT Chest Angiogram and Pulmonary Arteries with IV Contrast Hang Arrington M.D. [address] [place] [address] Phone: tel: fax: [facility] Referral ID Status Reason Start Date Expiration Date Visits Re quested Visits Authorized [id number] Closed 07/05/2025 10/02/2025 1 1 Reason for Visit * MRI/CAT/PET Scan (Routine) - Closed Specialty Diagnoses / Procedures Referred By Contac t Referred To Contact Radiology Diagnoses Embolus Pulmonary (HCC) Procedures CT Chest Angiogram and Pulmonary Arteries with IV Contrast Hang Arrington M.D. [address] [place] [address] Phone: tel: fax: [facility] Referral ID Status Reason Start Date Expiration Date Visits Re quested Visits Authorized [id number] Closed 07/05/2025 10/02/2025 1 1 Encounter Details Date Type Department Care Team (Latest Contact Info) Description 07/06/2025 8:30 AM CDT - 07/06/2025 9:44 AM CDT Hospital Encounter Department of Radiology, [facility], in [place], [place] [address] [place] [address] Hang Arrington M.D. [address] [place] [address] Embolus Pulmonary (HCC) Discharge Disposition: Home or Self Care Social History Tobacco Use Types Packs/Day Years Used Date Smoking Tobacco: Former Cigarettes 0 05/22/2014 - 10/14/2018 Passive Smoke Exposure: Current Smokeless Tobacco: Never Alcohol Use Standard Drinks/Week Comments Not Currently 3 (1 standard drink = 0.6 oz pure alcohol) Date nights maybe wednesday and wednesday [facility] Utilities Answer Date Recorded In the past 12 months has e [employer], gas, oil, or water [employer] threatened to shut off services in your [...] your living situation today? 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 multivitamin tablet Take 1 tablet by mouth daily. pantoprazole (Protonix) 40 mg EC tablet Take 1 tablet by mouth daily. 12/16/2023 albuterol (ProAir HFA) 90 mcg/actuation inhaler Inhale 2 puffs every 4 (four) hours as needed. 5 brimonidine 0.33 % gel with pump Apply topically. 02/05/2023 enoxaparin (Lovenox) 150 mg/mL injection Inject 150 mg under the skin 2 (two) times a day. 5 folic acid (Folvite) 5 mg/mL injection Inject 0.2 mL (1 mg total) under the skin daily for 2 days. 0.4 mL 07/05/2024 5 folic acid 1 mg tablet Take 2 tablets (2 mg total) by mouth daily. 60 tablet 07/04/2024 8:10 PM CDT 07/04/2024 ivermectin (Soolantra) 1 % cream creamIndications :Rosacea Apply 1 Application topically daily. Apply to the entire face. 45 g 5 04/14/2024 prochlorperazine (Compazine) 5 mg tablet Take 1 tablet (5 mg total) by mouth every 6 (six) hours as needed for nausea or vomiting. 30 tablet 07/04/2024 8:10 PM CDT 07/04/2024 5 documented as of this encounter Plan of Treatment Not on file documented as of this encounter Procedures Procedure [...] Findings discussed with Dr. Hang Arrington, pager [phone] or [phone] by Xochitl Amanda APRN at 10:03 am [...] with Dr. Hang Arrington, pager [phone] or [phone] Max Amanda APRN at 10:03 am on 07/06/2025. Hang Arrington M.D. IMG CT PROCEDURES Final Resu lt documented in [...] mL documented in this encounter Care Teams Helicopter Pilot Relationship Specialty Start Date End Date Elsewhere, Pcp PCP - General Internal Medicine 04/12/24 documented as of this encounter
--- OUTSIDE RECORDS SUMMARY | 2025-07-06 08:30 | XMS_ITS | Encounter Summary ---
Author Organization [facility] Address [address] [place] [address] Care Team Providers Care Shell Coremaker Name Role Phone Elsewhere, Pcp Primary Care Provider Unavailabl e Reason for Referral * MRI/CAT/PET Scan (Routine) - Closed Specialty Diagnoses / Procedures Referred By Contac t Referred To Contact Radiology Diagnoses Embolus Pulmonary (HCC) Procedures CT Chest Angiogram and Pulmonary Arteries with IV Contrast Hang Arrington M.D. [address] [place] [address] Phone: tel: fax: [facility] Referral ID Status Reason Start Date Expiration Date Visits Re quested Visits Authorized [id number] Closed 07/05/2025 10/02/2025 1 1 Reason for Visit * MRI/CAT/PET Scan (Routine) - Closed Specialty Diagnoses / Procedures Referred By Contac t Referred To Contact Radiology Diagnoses Embolus Pulmonary (HCC) Procedures CT Chest Angiogram and Pulmonary Arteries with IV Contrast Hang Arrington M.D. [address] [place] [address] Phone: tel: fax: [facility] Referral ID Status Reason Start Date Expiration Date Visits Re quested Visits Authorized [id number] Closed 07/05/2025 10/02/2025 1 1 Encounter Details Date Type Department Care Team (Latest Contact Info) Description 07/06/2025 8:30 AM CDT - 07/06/2025 9:44 AM CDT Hospital Encounter Department of Radiology, [facility], in [place], [place] [address] [place] [address] Hang Arrington M.D. [address] [place] [address] Embolus Pulmonary (HCC) Discharge Disposition: Home or Self Care Social History Tobacco Use Types Packs/Day Years Used Date Smoking Tobacco: Former Cigarettes 0 05/22/2014 - 10/14/2018 Passive Smoke Exposure: Current Smokeless Tobacco: Never Alcohol Use Standard Drinks/Week Comments Not Currently 3 (1 standard drink = 0.6 oz pure alcohol) Date nights maybe wednesday and wednesday [facility] Utilities Answer Date Recorded In the past 12 months has e [employer], gas, oil, or water [employer] threatened to shut off services in your [...] your living situation today? I have a [facility] place to live 07/03/2024 Comments Unknown Sex and Gender Information Value Date Recorded Sex Assigned at Not on file Legal Sex Female 6:06 PM DOCTOR OSTEOPATHIC Gender Identity Not on file Sexual Orientation [...] Findings discussed with Dr. Hang Arrington, pager [phone] or [phone] by Xochitl Amanda APRN at 10:03 am [...] with Dr. Hang Arrington, pager [phone] or [phone] Max Amanda APRN at 10:03 am on [...] mL documented in this encounter Care Teams Shell Coremaker Relationship Specialty Start Date End Date Elsewhere, Pcp PCP - General Internal Medicine 04/12/24 documented as of this encounter
--- OUTSIDE RECORDS SUMMARY | 2025-07-06 10:10 | XMS_ITS | Encounter Summary ---
Author Organization [facility] Address [address] [place] [address] Care Team Providers Care Counter Installer Name Role Phone Elsewhere, Pcp Primary Care Provider Unavailabl e Encounter Details Date Type Department Care Team (Latest Contact Info) Description 07/06/2025 10:10 AM CDT - 07/06/2025 10:39 AM CDT Hospital Encounter Department of Laboratory Medicine and Pathology, [facility] in [place], [place] [address] [place] [address] Hang Arrington M.D. [address] [place] [phone] Embolus Pulmonary (HCC); Palpitations; Hyperhomocysteinemi a (HCC); [...] alcohol) Date nights maybe wednesday and wednesday [facility] Utilities Answer Date Recorded In the past 12 months has [facility] [employer], gas, oil, or water company threatened to [...] your living situation today? I have a [facility] place to live 07/03/2024 Comments Unknown Sex and Gender Information Value Date Recorded Sex Assigned at Not on file Legal Sex Female 6:06 PM ENGINE PILOT Gender Identity Not on file Sexual Orientation [...] the skin 2 (two) times a day. folic acid (Folvite) 5 mg/mL injection Inject 0.2 mL (1 mg total) under the skin daily for 2 days. 0.4 mL 07/05/2024 folic acid 1 mg tablet Take 2 [...] AM CDT 07/06/2025 10:48 AM CDT Hang Arrintgon M.D. LAB BLOOD NON ADD-ON Final R esult [facility] [address] [place] [address], [facility] [address] [place] [address] documented in this encounter Visit Diagnoses Diagnosis Embolus Pulmonary (HCC) Palpitations Hyperhomocysteinemia (HCC) Anemia B12 Deficiency Anticoagulant Therapy documented in this encounter Care Teams Counter Installer Relationship Specialty Start Date End Date Elsewhere, Pcp PCP - General Internal Medicine 04/12/24 documented as of this encounter
--- OUTSIDE RECORDS SUMMARY | 2025-07-06 10:10 | XMS_ITS | Encounter Summary ---
Author Organization [facility] Address [address] [place] [address] Care Team Providers Care Editor Managing Director Name Role Phone Elsewhere, Pcp Primary Care Provider Unavailabl e Encounter Details Date Type Department Care Team (Latest Contact Info) Description 07/06/2025 10:10 AM CDT - 07/06/2025 10:39 AM CDT Hospital Encounter Department of Laboratory Medicine and Pathology, [facility] in [place], [place] [address] [place] [address] Hang Arrington M.D. [address] [place] [phone] Embolus Pulmonary (HCC); Palpitations; Hyperhomocysteinemi a (HCC); [...] Date nights maybe wednesday and wednesday [facility] Utilities Answer Date Recorded In the past 12 months has [facility] [email or web address], gas, oil, or water company threatened to [...] your living situation today? I have a [facility] place to live 07/03/2024 Comments Unknown Sex and Gender Information Value Date Recorded Sex Assigned at Not on file Legal Sex Female 6:06 PM VOICE DATA COMMUNICATIONS ENGINEER Gender Identity Not on file Sexual [...] LAB BLOOD NON ADD-ON Final R esult [facility] [address] [place] [address], [facility] [address] [place] [address] documented in this encounter Visit Diagnoses Diagnosis Embolus Pulmonary (HCC) Palpitations Hyperhomocysteinemia (HCC) Anemia B12 Deficiency Anticoagulant Therapy documented in this encounter Care Teams Editor Managing Director Relationship Specialty Start Date End Date Elsewhere, Pcp PCP - General Internal Medicine 04/12/24 documented as of this encounter
--- OUTSIDE RECORDS SUMMARY | 2025-07-06 10:40 | XMS_ITS | Encounter Summary ---
Author Organization [facility] Address [address] [place] [address] Care Team Providers Care Printed Circuit Boards Stripper Etcher Name Role Phone Elsewhere, Pcp Primary Care Provider Unavailabl e Reason for Referral * Cardiovascular-Diagnostic (Routine) - Authorized Specialty Diagnoses / Procedures Referred By Contac t Referred To Contact Diagnoses Embolus Pulmonary (HCC) Palpitations Hyperhomocysteinemia (HCC) Anemia B12 Deficiency Anticoagulant Therapy Procedures ECG Heart rhythm monitor (Holter) Hang Arrington M.D. 200 [place] [address] Phone: tel: fax: [facility] Referral ID Status Reason Start Date Expiration Date V isits Requested Visits Authorized [id number] Authorized 06/28/2025 09/28/2026 1 1 Reason for Visit * Cardiovascular-Diagnostic (Routine) - Authorized Specialty Diagnoses / Procedures Referred By Contac t Referred To Contact Diagnoses Embolus Pulmonary (HCC) Palpitations Hyperhomocysteinemia (HCC) Anemia B12 Deficiency Anticoagulant Therapy Procedures ECG Heart rhythm monitor (Holter) Hang Arrington M.D. [address] [place] [phone] Phone: tel: fax: [facility] Referral ID Status Reason Start Date Expiration Date V isits Requested Visits Authorized [id number] Authorized 06/28/2025 09/28/2026 1 1 Encounter Details Date Type Department Care Team (Latest Contact Info) Description 07/06/2025 10:40 AM CDT - 07/06/2025 11:59 PM CDT Hospital Encounter Department of Cardiovascular Diseases in [place], [place] [address] [place] [address] Hang Arrington M.D. 200 [place] [address] Embolus Pulmonary (HCC); Palpitations; Hyperhomocysteinemi a (HCC); [...] nights maybe wednesday and wednesday [facility] Utilities Answer Date Recorded In the past 12 months has [facility] [email or web address], oil, or water [employer] threatened to shut off services in your [...] your living situation today? 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 Agriculture Consultant: FELTON Ha Procedure Note Alcides Eng M.D., [...] these events, one PAC was seen singly. Agriculture Consultant: FELTON Ha Hang Arrington M.D. CV CARDIAC SERVICES PROCEDUR ES Final Result INFOBIONIC MOME NA documented in this encounter Visit Diagnoses Diagnosis Embolus Pulmonary (HCC) Palpitations Hyperhomocysteinemia (HCC) Anemia B12 Deficiency Anticoagulant Therapy documented in this encounter Care Teams Printed Circuit Boards Stripper Etcher Relationship Specialty Start Date End Date Elsewhere, Pcp PCP - General Internal Medicine 04/12/24 documented as of this encounter
--- OUTSIDE RECORDS SUMMARY | 2025-07-06 10:40 | XMS_ITS | Encounter Summary ---
Author Organization [facility] Address [address] [place] [address] Care Team Providers Care Pharmacy Clinical Specialist Name Role Phone Elsewhere, Pcp Primary Care Provider Unavailabl e Reason for Referral * Cardiovascular-Diagnostic (Routine) - Authorized Specialty Diagnoses / Procedures Referred By Contac t Referred To Contact Diagnoses Embolus Pulmonary (HCC) Palpitations Hyperhomocysteinemia (HCC) Anemia B12 Deficiency Anticoagulant Therapy Procedures ECG Heart rhythm monitor (Holter) Hang Arrington M.D. 200 [place] [address] Phone: tel: fax: [facility] Referral ID Status Reason Start Date Expiration Date V isits Requested Visits Authorized [id number] Authorized 06/28/2025 09/28/2026 1 1 Reason for Visit * Cardiovascular-Diagnostic (Routine) - Authorized Specialty Diagnoses / Procedures Referred By Contac t Referred To Contact Diagnoses Embolus Pulmonary (HCC) Palpitations Hyperhomocysteinemia (HCC) Anemia B12 Deficiency Anticoagulant Therapy Procedures ECG Heart rhythm monitor (Holter) Hang Arrington M.D. [address] [place] [phone] Phone: tel: fax: [facility] Referral ID Status Reason Start Date Expiration Date V isits Requested Visits Authorized [id number] Authorized 06/28/2025 09/28/2026 1 1 Encounter Details Date Type Department Care Team (Latest Contact Info) Description 07/06/2025 10:40 AM CDT - 07/06/2025 11:59 PM CDT Hospital Encounter Department of Cardiovascular Diseases in [place], [place] [address] [place] [address] Hang Arrington M.D. 200 [place] [address] Embolus Pulmonary (HCC); Palpitations; Hyperhomocysteinemi a (HCC); [...] Date nights maybe wednesday and wednesday [facility] Utilities Answer Date Recorded In the past 12 months has [facility] [employer], oil, or water [employer] threatened to shut off services in your [...] your living situation today? 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 Corporate Scheduler: FELTON Ha Procedure Note Alcides Eng M.D., [...] these events, one PAC was seen singly. Corporate Scheduler: FELTON Ha Hang Arrington M.D. CV CARDIAC SERVICES PROCEDUR ES Final Result INFOBIONIC MOME NA documented in this encounter Visit Diagnoses Diagnosis Embolus Pulmonary (HCC) Palpitations Hyperhomocysteinemia (HCC) Anemia B12 Deficiency Anticoagulant Therapy documented in this encounter Care Teams Pharmacy Clinical Specialist Relationship Specialty Start Date End Date Elsewhere, Pcp PCP - General Internal Medicine 04/12/24 documented as of this encounter
--- OUTSIDE RECORDS SUMMARY | 2025-07-06 16:30 | XMS_ITS | Encounter Summary ---
Author Organization [facility] Address [address] [place] [address] Care Team Providers Care Unit Assembler Name Role Phone Elsewhere, Pcp Primary Care Provider Unavailabl e Reason for Referral * Outpatient (Routine) - Closed Specialty Diagnoses / Procedures Referred By Contac t Referred To Contact Diagnoses Embolus Pulmonary (HCC) Anticoagulant Therapy Procedures US Upper Extremity Veins Bilateral Hang Arrington M.D. 200 [place] [address] Phone: tel: fax: [facility] Referral ID Status Reason Start Date Expiration Date Visits Re quested Visits Authorized [id number] Closed 07/10/2025 10/10/2026 1 1 Reason for Visit * Outpatient (Routine) - Closed Specialty Diagnoses / Procedures Referred By Contac t Referred To Contact Vascular Medicine Hang Arrington M.D. 200 [place] [address] Phone: tel: fax: [facility] Referral ID Status Reason Start Date Expiration Date Visits Re quested Visits Authorized [id number] Closed 06/28/2025 12/28/2026 1 1 Encounter Details Date Type Department Care Team ([facility] st Contact Info) Description 07/06/2025 4:30 PM CDT Virtual Visit Department of Vascular Medicine in [place], [place] [address] [place] [phone] Hang Arrington M.D. [address] [place] [address] Embolus Pulmonary (HCC) (Primary Dx); Anticoagulant Therapy; Deficiency Vitamin B12; Other Folate Deficiency Anemias Social History Tobacco Use Types Packs/Day Years Used Date Smoking Tobacco: Former Cigarettes 0 05/22/2014 - 10/14/2018 Passive Smoke Exposure: Current Smokeless Tobacco: Never Alcohol Use Standard Drinks/Week Comments Not Currently 3 (1 standard drink = 0.6 oz pure alcohol) Date nights maybe wednesday and wednesday [facility] Utilities Answer Date Recorded In the past 12 months has [facility] [employer], gas, oil, or water company threatened to [...] your living situation today? 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 - 07/06/2025 4:30 PM CDT CHIEF COMPLAINT Ms. El Live and I are scheduled for telephone visit, non [id number]. HISTORY OF PRESENT ILLNESS I recently discussed her case in detail with local physicians as she presented with evidence of newPE despite apparent adherence with therapeutic enoxaparin at a dose of 1 milligram/kilogram twice daily. The local hospitalist team increased her Lovenox by about 25% to 150 mg twice daily. She has been stable with no bleeding symptoms; she has some ongoing chest discomfort. MEDICATIONS Current Medications[1] ASSESSMENT AND PLAN #1 Embolus Pulmonary (HCC) #2 Anticoagulant Therapy #3 Palpitations #4 B12 deficiency #5 History of folate deficiency #6 Hyper homocystinemia #7 Anticoagulant therapy Reviewed the results of her CTA. There is no new PE seen on the CT when compared with the week of June CTA done locally. There are signs of recanalization or improvement of the clot burden that was detected then. Heparin level is 1.30 taken several hours after her morning dose so this is the peak. We discussed continuing Lovenox at the current dose and checking level next week. We were trying toget new baseline ultrasound to document degree of any chronic SVT or DVT but this was not able to be completed. We will schedule this for next week when she returns for lab. Hang Arrington M.D. Vascular Medicine Pager: [phone] [1] Current Outpatient Medications Medication Sig Dispense Refill acetaminophen (TylenoL) 500 mg tablet Take 2 [...] on file documented as of this encounter Results * US Upper Extremity Veins Bilateral (08/03/2025 4:14 PM CDT) Anatomical Region Laterality Modality Upper Extremity, Ultrasound RST LOS, Ultrasound ARZ LOS, Ultrasound FLA LOS Bilateral Ultrasound Impressions 08/03/2025 4:43 PM CDT 1. 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 2. 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 3. Negative for acute DVT within both upper extremities. Narrative 08/03/2025 4:43 PM CDT EXAM: US UPPER EXTREMITY VEINS BILATERAL Exam performed with color and spectral Doppler analysis. COMPARISON: Ultrasounds dated 10/12/2024 and 07/04/2024. FINDINGS: RIGHT: Internal Jugular Vein: Negative. Innominate Vein: Negative. Subclavian Vein: Negative. Axillary Vein: Negative. Brachial Veins: Negative. Cephalic Vein: Acute on chronic occlusive SVT in the forearm. Basilic Vein: Negative. LEFT: Internal Jugular Vein: Negative. Innominate Vein: Negative. Subclavian Vein: Negative. Axillary Vein: Negative. Brachial Veins: Negative. Cephalic Vein: Chronic occlusive post-thrombotic changes. Basilic Vein: Negative. Information on venous thrombosis and management can be found on the [employer] site. Link [email or web address].[facility]/topic/clinical-[email or web address] Procedure Note Paulina Liu M.D. - 08/03/2025 EXAM: US UPPER EXTREMITY VEINS BILATERAL Exam performed with color and spectral Doppler analysis. COMPARISON: Ultrasounds dated 10/12/2024 and 07/04/2024. FINDINGS: RIGHT: Internal Jugular Vein: Negative. Innominate Vein: Negative. Subclavian Vein: Negative. Axillary Vein: Negative. Brachial Veins: Negative. Cephalic Vein: Acute on chronic occlusive SVT in the forearm. Basilic Vein: Negative. LEFT: Internal Jugular Vein: Negative. Innominate Vein: Negative. Subclavian Vein: Negative. Axillary Vein: Negative. Brachial Veins: Negative. Cephalic Vein: Chronic occlusive post-thrombotic changes. Basilic Vein: Negative. Information on venous thrombosis and management can be found on the[employer] site. Linkhttps://[employer].[facility] er[employer]Blog.[facility]/topic/clinical-answers/[email or web address]/cpm -[email or web address] IMPRESSION: 1. 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 2. 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 3. Negative for acute DVT within both upper extremities. Hang Arrington M.D. IMG US PROCEDURES Final Resu lt * (ABNORMAL) Folate (07/19/2025 9:36 AM CDT) Folate, S 3.6(L) >=4.0 mcg/L 07/19/2025 11:14 AM CDT DTL Comment:Result suggests tina te deficiency Blood (Blood, Venous) 07/19/2025 9:36 AM CDT 07/19/2025 10:00 AM CDT Hang Arrington M.D. LAB BLOOD ADD-ON Final Resul t Performing Organization Address City/[facility] Co de Phone Number [facility] [address] [place] [address] * (ABNORMAL) Vitamin B12 Assay (07/19/2025 9:36 AM CDT) Vitamin B12 Assay, S 115(L) 180 - 914 ng/L 07/19/2025 11:33 AM CDT DT Comment: ----ADDITIONAL INFORMATION---- In patients being evaluated for vitamin B12 deficiency who have intrinsic factor blocking antibodies (IFBA), false elevations of B12 may occur due to IFBA interference thus potentially obscuring a physiological deficiency of B12. If observed B12 concentrations are discordant with clinical presentation, measurement of methylmalonic acid (MMA) should be considered. Blood (Blood, Venous) 07/19/2025 9:36 AM CDT 07/19/2025 10:00 AM CDT Hang Arrington M.D. LAB BLOOD ADD-ON Final Resul t Performing Organization Address [facility] de Phone Number [facility] 200 [place] [address] * Heparin Anti-Xa Assay (07/19/2025 9:36 AM CDT) Heparin Anti-Xa, P 0.62 IU/mL 2024 10:38 AM CDT DTL Comment: UFH therapeutic range: 0.30-0.70 IU/mL LMWH therapeutic range: 0.50-1.00 IU/mL 0.50-1.00 IU/mL for twice daily dosing 1.00-2.00 IU/mL for once daily dosing (sample obtained 4-6 hours following subcutaneous injection) LMWH prophylactic range:0.10-0.30 IU/mL ----ADDITIONAL INFORMATION---- Heparin Anti-Xa is used to measure heparin concentrations in patients receiving low molecular weight heparin (LMWH) or unfractionated heparin (UFH). Blood (Blood, Venous) 07/19/2025 9:36 AM CDT 07/19/2025 10:04 AM CDT Hang Arrington M.D. LAB BLOOD NON ADD-ON Final R esult [facility] [place] [address] [place] [address], [facility] [address] [place] [address] documented in this encounter Visit Diagnoses Diagnosis Embolus Pulmonary (HCC)- Primary Anticoagulant Therapy Deficiency Vitamin B12 Other Folate Deficiency Anemias Embolus Pulmonary (HCC) Anticoagulant Therapy documented in this encounter Care Teams Unit Assembler Relationship Specialty Start Date End Date Elsewhere, Pcp PCP - General Internal Medicine 04/12/24 documented as of this encounter
--- OUTSIDE RECORDS SUMMARY | 2025-07-06 16:30 | XMS_ITS | Encounter Summary ---
Author Organization [facility] Address [address] [place] [address] Care Team Providers Care Prevocational/Rehabilitation Counselor Name Role Phone Elsewhere, Pcp Primary Care Provider Unavailabl e Reason for Referral * Outpatient (Routine) - Closed Specialty Diagnoses / Procedures Referred By Contac t Referred To Contact Diagnoses Embolus Pulmonary (HCC) Anticoagulant Therapy Procedures US Upper Extremity Veins Bilateral Hang Arrington M.D. 200 [place] [address] Phone: tel: fax: [facility] Referral ID Status Reason Start Date Expiration Date Visits Re quested Visits Authorized [id number] Closed 07/10/2025 10/10/2026 1 1 Reason for Visit * Outpatient (Routine) - Closed Specialty Diagnoses / Procedures Referred By Contac t Referred To Contact Vascular Medicine Hang Arrington M.D. 200 [place] [address] Phone: tel: fax: [facility] Referral ID Status Reason Start Date Expiration Date Visits Re quested Visits Authorized [id number] Closed 06/28/2025 12/28/2026 1 1 Encounter Details Date Type Department Care Team ([facility] st Contact Info) Description 07/06/2025 4:30 PM CDT Virtual Visit Department of Vascular Medicine in [place], [place] [address] [place] [phone] Hang Arrington M.D. [address] [place] [address] Embolus Pulmonary (HCC) (Primary Dx); Anticoagulant Therapy; [...] and wednesday [facility] Utilities Answer Date Recorded In the past 12 months has [facility] [employer], gas, oil, or water company threatened to [...] your living situation today? 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 - 07/06/2025 4:30 PM CDT CHIEF COMPLAINT Ms. El Live and I are scheduled for telephone visit, non [id number]. HISTORY OF PRESENT ILLNESS I recently discussed [...] lab. Hang Arrington M.D. Vascular Medicine Pager: [phone] [1] Current Outpatient Medications Medication Sig Dispense [...] and management can be found on the [employer] site. Link [email or web address] Procedure Note Paulina Liu M.D. - 08/03/2025 [...] thrombosis and management can be found on the[employer] site. [email or web address] IMPRESSION: 1. Acute on chronic [...] ADD-ON Final Resul t Performing Organization Address City/[facility] Co de Phone Number [facility] [address] [place] [address] * (ABNORMAL) Vitamin B12 Assay (07/19/2025 9:36 [...] ADD-ON Final Resul t Performing Organization Address [facility] de Phone Number [facility] 200 [place] [address] * Heparin Anti-Xa Assay (07/19/2025 9:36 AM [...] LAB BLOOD NON ADD-ON Final R esult [facility] [address] [place] [address], [facility] [address] [place] [address] documented in this encounter Visit Diagnoses Diagnosis Embolus Pulmonary (HCC)- Primary Anticoagulant Therapy Deficiency Vitamin B12 Other Folate Deficiency Anemias Embolus Pulmonary (HCC) Anticoagulant Therapy documented in this encounter Care Teams Prevocational/Rehabilitation Counselor Relationship Specialty Start Date End Date Elsewhere, Pcp PCP - General Internal Medicine 04/12/24 documented as of this encounter
--- OUTSIDE RECORDS SUMMARY | 2025-07-19 09:00 | XMS_ITS | Encounter Summary ---
Author Organization [facility] Address [address] [place] [address] Care Team Providers Care Drum Puller Name Role Phone Elsewhere, Pcp Primary Care Provider Unavailabl e Encounter Details Date Type Department Care Team (Latest Contact Info) Description 07/19/2025 9:00 AM CDT - 07/19/2025 11:59 PM CDT Hospital Encounter Department of Laboratory Medicine and Pathology, [facility] in [place], [place] [address] [place] [address] Hang Arrington M.D. [address] [place] [phone] Embolus Pulmonary (HCC); Anticoagulant Therapy; Deficiency Vitamin B12; Other Folate Deficiency Anemias Discharge Disposition: Home or Self Care Social History Tobacco Use Types Packs/Day Years Used Date Smoking Tobacco: Former Cigarettes 0 05/22/2014 - 10/14/2018 Passive Smoke Exposure: Current Smokeless Tobacco: Never Alcohol Use Standard Drinks/Week Comments Not Currently 3 (1 standard drink = 0.6 oz pure alcohol) Date nights maybe wednesday and wednesday [facility] Utilities Answer Date Recorded In the past 12 months has e electric, gas, oil, or water company threatened to [...] your living situation today? 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 02/05/2023 5 enoxaparin (Lovenox) 150 mg/mL injection Inject 150 [...] Comments HEPARIN LEVEL ANTI-XA ASSAY, P Routine 07/19/2025 9:36 AM CDT Embolus Pulmonary (HCC) Anticoagulant Therapy FOLATE, S Routine 07/19/2025 9:36 AM CDT Other Folate Deficiency Anemias VITAMIN B12 ASSAY, S Routine 07/19/2025 9:36 AM CDT Deficiency Vitamin B12 documented in this encounter Results * (ABNORMAL) Folate (07/19/2025 9:36 AM CDT) Folate, S 3.6(L) >=4.0 mcg/L 07/19/2025 11:14 AM CDT DTL Comment:Result suggests tina te deficiency Blood (Blood, Venous) 07/19/2025 9:36 AM CDT 07/19/2025 10:00 AM CDT us Hang Arrington M.D. LAB BLOOD ADD-ON Final Resul t Performing Organization Address [facility] de Phone Number [facility] [address] [facility] [facility] 200 [place] [address] * (ABNORMAL) Vitamin B12 Assay (07/19/2025 9:36 [...] ADD-ON Final Resul t Performing Organization Address [facility] de Phone Number [facility] 200 [place] [address], [facility] 200 [place] [address] * Heparin Anti-Xa Assay (07/19/2025 9:36 AM CDT) Heparin Anti-Xa, P 0.62 IU/mL 2024 10:38 AM CDT DT Comment: UFH therapeutic range: 0.30-0.70 IU/mL LMWH [...] LAB BLOOD NON ADD-ON Final R esult [facility] [address] [place] [address], [facility] 200 [place] [address] documented in this encounter Visit Diagnoses Diagnosis Embolus Pulmonary (HCC) Anticoagulant Therapy Deficiency Vitamin B12 Other Folate Deficiency Anemias documented in this encounter Care Teams Drum Puller Relationship Specialty Start Date End Date Elsewhere, Pcp PCP - General Internal Medicine 04/12/24 documented as of this encounter
--- OUTSIDE RECORDS SUMMARY | 2025-07-19 09:00 | XMS_ITS | Encounter Summary ---
Author Organization [facility] Address [address] [place] [address] Care Team Providers Care [employer] Unified Communications Engineer Name Role Phone Elsewhere, Pcp Primary Care Provider Unavailabl e Encounter Details Date Type Department Care Team (Latest Contact Info) Description 07/19/2025 9:00 AM CDT - 07/19/2025 11:59 PM CDT Hospital Encounter Department of Laboratory Medicine and Pathology, [facility] in [place], [place] [address] [place] [address] Hang Arrington M.D. [address] [place] [phone] Embolus Pulmonary (HCC); Anticoagulant Therapy; Deficiency Vitamin [...] alcohol) Date nights maybe wednesday and wednesday [facility] Utilities Answer Date Recorded In the past [...] your living situation today? 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 Gender Identity Not on file Sexual Orientation [...] ADD-ON Final Resul t Performing Organization Address [facility] de Phone Number [facility] [address] [facility] 200 [place] [address] * (ABNORMAL) Vitamin B12 Assay (07/19/2025 9:36 [...] ADD-ON Final Resul t Performing Organization Address [facility] de Phone Number [facility] 200 [place] [address], [facility] 200 [place] [address] * Heparin Anti-Xa Assay (07/19/2025 9:36 AM [...] LAB BLOOD NON ADD-ON Final R esult [facility] [address] [place] [address], [facility] 200 [place] [address] documented in this encounter Visit Diagnoses Diagnosis Embolus Pulmonary (HCC) Anticoagulant Therapy Deficiency Vitamin B12 Other Folate Deficiency Anemias documented in this encounter Care Teams [employer] Unified Communications Engineer Relationship Specialty Start Date End Date Elsewhere, Pcp PCP - General Internal Medicine 04/12/24 documented as of this encounter
--- OUTSIDE RECORDS SUMMARY | 2025-07-19 11:00 | XMS_ITS | Encounter Summary ---
Author Organization [facility] Address [address] [place] [address] Care Team Providers Care Police Communications Operator Name Role Phone Elsewhere, Pcp Primary Care Provider Unavailabl e Reason for Referral * Outpatient (Routine) - Closed Specialty Diagnoses / Procedures Referred By Contac t Referred To Contact Vascular Medicine Hang Arrington M.D. 200 [place] [address] Phone: tel: fax: [facility] Referral ID Status Reason Start Date Expiration Date Visits Re quested Visits Authorized [id number] Closed 07/19/2025 01/18/2027 1 1 * Outpatient (Routine) - Closed Specialty Diagnoses / Procedures Referred By Contac t Referred To Contact Diagnoses Pain Chest Procedures US Lower Extremity Veins Bilateral Hang Arrington M.D. 200 [place] [address] Phone: tel: fax: [facility] Referral ID Status Reason Start Date Expiration Date Visits Re quested Visits Authorized [id number] Closed 07/19/2025 10/19/2026 1 1 * Outpatient (Routine) - Authorized Specialty Diagnoses / Procedures Referred By Contac t Referred To Contact Diagnoses Pain Chest Procedures NM Lung Ventilation and Perfusion Hang Arrington M.D. [address] [place] [phone] Phone: tel: fax: [facility] Referral ID Status Reason Start Date Expiration Date V isits Requested Visits Authorized [id number] Authorized 07/19/2025 10/19/2026 8 8 * Outpatient (Routine) - Closed Specialty Diagnoses / Procedures Referred By Contac t Referred To Contact Diagnoses Pain Chest Procedures ECG 12 Lead [place] EKG 12 LEAD W I&R Hang Arrington M.D. [address] [place] [phone] Phone: tel: fax: [facility] Referral ID Status Reason Start Date Expiration Date Visits Re quested Visits Authorized [id number] Closed 07/19/2025 10/19/2026 1 1 * Outpatient (Routine) - Authorized Specialty Diagnoses / Procedures Referred By Contact Referred To Contact Cardiovascular Diseases / Cardiovascular Disease Diagnoses Pain Chest Hang Arrington M.D. [address] [place] [phone] Phone: tel: fax: [facility] Referral ID Status Reason Start Date Expiration Date V isits Requested Visits Authorized [id number] Authorized 07/19/2025 01/18/2027 1 1 Reason for Visit * Outpatient (Routine) - Closed Specialty Diagnoses / Procedures Referred By Contac t Referred To Contact Vascular Medicine Hang Arrington M.D. [address] [place] [phone] Phone: tel: fax: [facility] Referral ID Status Reason Start Date Expiration Date Visits Re quested Visits Authorized [id number] Closed 07/17/2025 01/16/2027 1 1 Encounter Details Date Type Department Care Team (Late st Contact Info) Description 07/19/2025 11:00 AM CDT Office Visit Department of Vascular Medicine in [place], [place] 200 [place] [address] Hang Arrington M.D. 200 [place] [address] Pain Chest (Primary Dx); Dyspnea On Exertion; [...] alcohol) Date nights maybe wednesday and wednesday [facility] [employer] Answer Date Recorded In the past 12 months has [facility] [employer], gas, oil, or water [employer] threatened to shut off services in your [...] your living situation today? 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 Hang Arrington M.D. Vascular Medicine Pager: [phone] [1] Current Outpatient Medications Medication Sig Dispense [...] as of this encounter Results * US Lower Extremity Veins Bilateral (08/03/2025 4:14 PM CDT) Anatomical Region Laterality Modality Lower Extremity, Ultrasound RST LOS, Ultrasound ARZ LOS, Ultrasound FLA LOS Bilateral Ultrasound Impressions 08/03/2025 4:30 PM CDT Negative for acute DVT within both lower extremities. Narrative 08/03/2025 4:30 PM CDT EXAM: US LOWER EXTREMITY VEINS BILATERAL Exam performed with color and spectral Doppler analysis. COMPARISON: Outside ultrasound dated 06/21/2025; [facility] ultrasounds dated 10/12/2024 and 07/01/2024. FINDINGS: RIGHT: Common Femoral Vein: Negative. Profunda Femoral Vein: Negative. Femoral Vein: Negative. Popliteal Vein: Negative. Gastrocnemius Veins: Negative where seen. Soleal Veins: Negative where seen. Posterior Tibial Veins: Negative where seen. Peroneal Veins: Negative where seen. Great Saphenous Vein: Negative where seen. Small Saphenous Vein: Not evaluated. Popliteal Fossa: Negative. LEFT: Common Femoral Vein: Negative. Profunda Femoral Vein: Negative. Femoral Vein: Negative. Popliteal Vein: Negative. Gastrocnemius Veins: Negative where seen. Soleal Veins: Negative where seen. Posterior Tibial Veins: Negative where seen. Peroneal Veins: Negative where seen. Great Saphenous Vein: Negative where seen. Small Saphenous Vein: Not evaluated. Popliteal Fossa: Negative. Information on venous thrombosis and management can be found on the [employer] site. Link [email or web address] Procedure Note Paulina Liu M.D. - 08/03/2025 EXAM: US LOWER EXTREMITY VEINS BILATERAL Exam performed with color and spectral Doppler analysis. COMPARISON: Outside ultrasound dated 06/21/2025; [facility] ultrasoundsdated 10/12/2024 and 07/01/2024. FINDINGS: RIGHT: Common Femoral Vein: Negative. Profunda Femoral Vein: Negative. Femoral Vein: Negative. Popliteal Vein: Negative. Gastrocnemius Veins: Negative where seen. Soleal Veins: Negative where seen. Posterior Tibial Veins: Negative where seen. Peroneal Veins: Negative where seen. Great Saphenous Vein: Negative where seen. Small Saphenous Vein: Not evaluated. Popliteal Fossa: Negative. LEFT: Common Femoral Vein: Negative. Profunda Femoral Vein: Negative. Femoral Vein: Negative. Popliteal Vein: Negative. Gastrocnemius Veins: Negative where seen. Soleal Veins: Negative where seen. Posterior Tibial Veins: Negative where seen. Peroneal Veins: Negative where seen. Great Saphenous Vein: Negative where seen. Small Saphenous Vein: Not evaluated. Popliteal Fossa: Negative. Information on venous thrombosis and management can be found on the[employer] site. [email or web address] -2049 1725 IMPRESSION: Negative for acute DVT within both lower extremities. Hang Arrington M.D. IMG US PROCEDURES Final Resu lt * NM Lung Ventilation and Perfusion (07/20/2025 [...] 2. Scintigraphic evidence of diffuse hepatic steatosis. aHng Arrington M.D. IMG NM PROCEDURES Final Resu lt * ECG 12 Lead (07/20/2025 1:31 PM CDT) Ventricular Rate ECG/Min 63 BPM MUSE FL Interval 146 ms MUSE QRSD Interval 84 ms MUSE QT Interval 452 ms MUSE QTC Interval 463 ms MUSE P Bowers 46 degrees MUSE R Bowers 63 degrees MUSE T Wave Bowers 14 degrees MUSE 07/20/2025 1:31 PM CDT [...] change was found Reviewed by FELTON Meeks Hang Arrington M.D. ECG ORDERABLES Final Result MUSE NA documented in this encounter Visit Diagnoses Diagnosis Pain Chest- Primary Dyspnea On Exertion Embolus Pulmonary (HCC) Anticoagulant Therapy Folate Deficiency Anemia Unspecified Deficiency Vitamin B12 Pain Chest Pain Chest documented in this encounter Care Teams Police Communications Operator Relationship Specialty Start Date End Date Elsewhere, Pcp PCP - General Internal Medicine 04/12/24 documented as of this encounter
--- OUTSIDE RECORDS SUMMARY | 2025-07-19 11:00 | XMS_ITS | Encounter Summary ---
Author Organization [facility] Address [address] [place] [address] Care Team Providers Care Line Prep Cook Name Role Phone Elsewhere, Pcp Primary Care Provider Unavailabl e Reason for Referral * Outpatient (Routine) - Closed Specialty Diagnoses / Procedures Referred By Contac t Referred To Contact Vascular Medicine Hang Arrington M.D. 200 [place] [address] Phone: tel: fax: [facility] Referral ID Status Reason Start Date Expiration Date Visits Re quested Visits Authorized [id number] Closed 07/19/2025 01/18/2027 1 1 * Outpatient (Routine) - Closed Specialty Diagnoses / Procedures Referred By Contac t Referred To Contact Diagnoses Pain Chest Procedures US Lower Extremity Veins Bilateral Hang Arrington M.D. 200 [place] [address] Phone: tel: fax: [facility] Referral ID Status Reason Start Date Expiration Date Visits Re quested Visits Authorized [id number] Closed 07/19/2025 10/19/2026 1 1 * Outpatient (Routine) - Authorized Specialty Diagnoses / Procedures Referred By Contac t Referred To Contact Diagnoses Pain Chest Procedures NM Lung Ventilation and Perfusion Hang Arrington M.D. [address] [place] [phone] Phone: tel: fax: [facility] Referral ID Status Reason Start Date Expiration Date V isits Requested Visits Authorized [id number] Authorized 07/19/2025 10/19/2026 8 8 * Outpatient (Routine) - Closed Specialty Diagnoses / Procedures Referred By Contac t Referred To Contact Diagnoses Pain Chest Procedures ECG 12 Lead [place] EKG 12 LEAD W I&R Hang Arrington M.D. [address] [place] [phone] Phone: tel: fax: [facility] Referral ID Status Reason Start Date Expiration Date Visits Re quested Visits Authorized [id number] Closed 07/19/2025 10/19/2026 1 1 * Outpatient (Routine) - Authorized Specialty Diagnoses / Procedures Referred By Contact Referred To Contact Cardiovascular Diseases / Cardiovascular Disease Diagnoses Pain Chest Hang Arrington M.D. [address] [place] [phone] Phone: tel: fax: [facility] Referral ID Status Reason Start Date Expiration Date V isits Requested Visits Authorized [id number] Authorized 07/19/2025 01/18/2027 1 1 Reason for Visit * Outpatient (Routine) - Closed Specialty Diagnoses / Procedures Referred By Contac t Referred To Contact Vascular Medicine Hang Arrington M.D. [address] [place] [phone] Phone: tel: fax: [facility] Referral ID Status Reason Start Date Expiration Date Visits Re quested Visits Authorized [id number] Closed 07/17/2025 01/16/2027 1 1 Encounter Details Date Type Department Care Team (Late st Contact Info) Description 07/19/2025 11:00 AM CDT Office Visit Department of Vascular Medicine in [place], [place] 200 [place] [address] Hang Arrington M.D. 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 Hang Arrington M.D. Vascular Medicine Pager: [phone] [1] Current Outpatient Medications Medication Sig Dispense [...] Doppler analysis. COMPARISON: Outside ultrasound dated 06/21/2025; [facility] ultrasounds dated 10/12/2024 and 07/01/2024. [...] and management can be found on the [employer] site. Link [email or web address] Procedure Note Paulina Liu M.D. - 08/03/2025 EXAM: US LOWER EXTREMITY VEINS BILATERAL Exam performed with color and spectral Doppler analysis. COMPARISON: Outside ultrasound dated 06/21/2025; [facility] ultrasoundsdated 10/12/2024 and 07/01/2024. FINDINGS: [...] thrombosis and management can be found on [employer] site. [email or web address]/[email or web address] -2049 1725 IMPRESSION: Negative [...] of diffuse hepatic steatosis. Hang Arrington M.D. IMG NM PROCEDURES Final Resu lt * ECG 12 Lead (07/20/2025 1:31 PM CDT) Ventricular Rate ECG/Min 63 BPM MUSE [place] Interval 146 ms MUSE QRSD Interval 84 ms MUSE QT Interval 452 ms MUSE QTC Interval 463 ms MUSE P [place] 46 degrees MUSE R [place] 63 degrees MUSE T Wave [place] 14 degrees MUSE 07/20/2025 1:31 PM CDT [...] Chest documented in this encounter Care Teams Line Prep Cook Relationship Specialty Start Date End Date Elsewhere, Pcp PCP - General Internal Medicine 04/12/24 documented as of this encounter
--- OUTSIDE RECORDS SUMMARY | 2025-07-20 13:47 | XMS_ITS | Encounter Summary ---
Author Organization [facility] Address [address] [place] [address] Care Team Providers Care Commercial Decorator Name Role Phone Elsewhere, Pcp Primary Care Provider Unavailabl e Reason for Referral * Outpatient (Routine) - Authorized Specialty Diagnoses / Procedures Referred By Contac t Referred To Contact Diagnoses Pain Chest Procedures NM Lung Ventilation and Perfusion Hang Arrington M.D. [address] [place] [phone] Phone: tel: fax: [facility] Referral ID Status Reason Start Date Expiration Date V isits Requested Visits Authorized [id number] Authorized 07/19/2025 10/19/2026 8 8 Reason for Visit * Outpatient (Routine) - Authorized Specialty Diagnoses / Procedures Referred By Contac t Referred To Contact Diagnoses Pain Chest Procedures NM Lung Ventilation and Perfusion Hang Arrington M.D. 200 [place] [address] Phone: tel: fax: [facility] Referral ID Status Reason Start Date Expiration Date V isits Requested Visits Authorized [id number] Authorized 07/19/2025 10/19/2026 8 8 Encounter Details Date Type Department Care Team (Latest Contact Info) Description 07/20/2025 1:47 PM CDT - 07/20/2025 11:59 PM CDT Hospital Encounter Department of Radiology, [facility], in [place], [place] [address] [place] [address] Hang Arrington M.D. 200 [place] [address] Pain Chest Discharge Disposition: Home or Self Care Social History Tobacco Use Types Packs/Day Years Used Date Smoking Tobacco: Former Cigarettes 0 05/22/2014 - 10/14/2018 Passive Smoke Exposure: Current Smokeless Tobacco: Never Alcohol Use Standard Drinks/Week Comments Not Currently 3 (1 standard drink = 0.6 oz pure alcohol) Date nights maybe wednesday and wednesday [facility] Utilities Answer Date Recorded In [...] your living situation today? 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 12/16/2023 enoxaparin (Lovenox) 150 mg/mL injection Inject 150 mg under the skin 2 (two) times a day. 5 folic acid 1 mg tablet Take 2 tablets (2 mg total) by mouth daily. 60 tablet 07/04/2024 8:10 PM CDT 07/04/2024 5 [...] of diffuse hepatic steatosis. Hang Arrington M.D. [facility] PROCEDURES Final Resu lt documented in this [...] millicuries documented in this encounter Care Teams Commercial Decorator Relationship Specialty Start Date End Date Elsewhere, Pcp PCP - General Internal Medicine 04/12/24 documented as of this encounter
--- OUTSIDE RECORDS SUMMARY | 2025-07-20 13:47 | XMS_ITS | Encounter Summary ---
Author Organization [facility] Address [address] [place] [id number] Care Team Providers Care Deep Fryer Assembler Name Role Phone Elsewhere, Pcp Primary Care Provider Unavailabl e Reason for Referral * Outpatient (Routine) - Authorized Specialty Diagnoses / Procedures Referred By Contac t Referred To Contact Diagnoses Pain Chest Procedures NM Lung Ventilation and Perfusion Hang Arrington M.D. [address] [place] [id number] Phone: tel: fax: [facility] Referral ID Status Reason Start Date Expiration Date V isits Requested Visits Authorized [id number] Authorized 07/19/2025 10/19/2026 8 8 Reason for Visit * Outpatient (Routine) - Authorized Specialty Diagnoses / Procedures Referred By Contac t Referred To Contact Diagnoses Pain Chest Procedures NM Lung Ventilation and Perfusion Hang Arrington M.D. [address] [place] [address] Phone: tel: fax: [facility] Referral ID Status Reason Start Date Expiration Date V isits Requested Visits Authorized [id number] Authorized 07/19/2025 10/19/2026 8 8 Encounter Details Date Type Department Care Team (Latest Contact Info) Description 07/20/2025 1:47 PM CDT - 07/20/2025 11:59 PM CDT Hospital Encounter Department of Radiology, [facility] in [place], [place] [address] [place] [address] Hang Arrington M.D. 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
--- OUTSIDE RECORDS SUMMARY | 2025-08-03 14:30 | XMS_ITS | Encounter Summary ---
Author Organization [facility] Address [address] [place] [id number] Care Team Providers Care Transportation Analyst Name Role Phone Elsewhere, Pcp Primary Care Provider Unavailabl e Reason for Referral * Outpatient (Routine) - Closed Specialty Diagnoses / Procedures Referred By Contac t Referred To Contact Diagnoses Embolus Pulmonary (HCC) Anticoagulant Therapy Procedures US Upper Extremity Veins Bilateral Hang Arrington M.D. [address] [place] [id number] Phone: tel: fax: [facility] Referral ID Status Reason Start Date Expiration Date Visits Re quested Visits Authorized [id number] Closed 07/10/2025 10/10/2026 1 1 Reason for Visit * Outpatient (Routine) - Closed Specialty Diagnoses / Procedures Referred By Contac t Referred To Contact Diagnoses Embolus Pulmonary (HCC) Anticoagulant Therapy Procedures US Upper Extremity Veins Bilateral Hang Arrington M.D. [address] [place] [phone] Phone: tel: fax: [facility] Referral ID Status Reason Start Date Expiration Date Visits Re quested Visits Authorized [id number] Closed 07/10/2025 10/10/2026 1 1 Encounter Details Date Type Department Care Team (Latest Contact Info) Description 08/03/2025 2:30 PM CDT - 08/03/2025 2:34 PM CDT Hospital Encounter Department of Radiology, [facility], in [place], [place] [address] [place] [address] Hang Arrington M.D. 200 [place] [address] Embolus Pulmonary (HCC); Anticoagulant Therapy Discharge Disposition: Home or Self Care Social History Tobacco Use Types Packs/Day Years Used Date Smoking Tobacco: Former Cigarettes 0 05/22/2014 - 10/14/2018 Passive Smoke Exposure: Current Smokeless Tobacco: Never Alcohol Use Standard Drinks/Week Comments Not Currently 3 (1 standard drink = 0.6 oz pure alcohol) Date nights maybe wednesday and wednesday [facility] Utilities Answer Date Recorded In the past 12 months has [facility] [employer], gas, oil, or water Minded threatened to shut off services in your [...] your living situation today? 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 5 enoxaparin (Lovenox) 150 mg/mL injection Inject 0.8 mL (120 mg total) under the skin 2 (two) times a day. 08/06/2025 5 folic acid 1 mg tablet Take 2 tablets (2 mg total) by mouth daily. 60 tablet 07/04/2024 8:10 PM CDT 07/04/2024 5 documented as of this encounter Plan of Treatment Not on file documented as of this encounter Procedures Procedure Name Priority Date/Time Associated Diagnosis Comments US UPPER EXTREMITY VEINS BILATERAL RAD - Routine (most inpatients and all outpatients) 08/03/2025 4:14 PM CDT Embolus Pulmonary (HCC) Anticoagulant Therapy documented in this encounter Results * US Upper Extremity [...] and management can be found on the [employer] site. Link [email or web address] Procedure Note Paulina Liu M.D. - 08/03/2025 [...] thrombosis and management can be found on the[employer] site. [email or web address] IMPRESSION: 1. 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 2. 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 3. Negative for acute DVT within both upper extremities. Hang Arrington M.D. IM US PROCEDURES Final Resu lt documented in this encounter Visit Diagnoses Diagnosis Embolus Pulmonary (HCC) Anticoagulant Therapy documented in this encounter Care Teams Transportation Analyst Relationship Specialty Start Date End Date Elsewhere, Pcp PCP - General Internal Medicine 04/12/24 documented as of this encounter
--- OUTSIDE RECORDS SUMMARY | 2025-08-03 14:30 | XMS_ITS | Encounter Summary ---
Author Organization [facility] Address [address] [place] [address] Care Team Providers Care Bezel Cutter Name Role Phone Elsewhere, Pcp Primary Care Provider Unavailabl e Reason for Referral * Outpatient (Routine) - Closed Specialty Diagnoses / Procedures Referred By Contac t Referred To Contact Diagnoses Embolus Pulmonary (HCC) Anticoagulant Therapy Procedures US Upper Extremity Veins Bilateral Hang Arrington M.D. [address] [place] [phone] Phone: tel: fax: [facility] Referral ID Status Reason Start Date Expiration Date Visits Re quested Visits Authorized [id number] Closed 07/10/2025 10/10/2026 1 1 Reason for Visit * Outpatient (Routine) - Closed Specialty Diagnoses / Procedures Referred By Contac t Referred To Contact Diagnoses Embolus Pulmonary (HCC) Anticoagulant Therapy Procedures US Upper Extremity Veins Bilateral Hang Arrington M.D. [address] [place] [phone] Phone: tel: fax: [facility] Referral ID Status Reason Start Date Expiration Date Visits Re quested Visits Authorized [id number] Closed 07/10/2025 10/10/2026 1 1 Encounter Details Date Type Department Care Team (Latest Contact Info) Description 08/03/2025 2:30 PM CDT - 08/03/2025 2:34 PM CDT Hospital Encounter Department of Radiology, [facility], in [place], [place] [address] [place] [address] Hang Arrington M.D. 200 [place] [address] Embolus Pulmonary (HCC); Anticoagulant Therapy Discharge Disposition: Home or Self Care Social History Tobacco Use Types Packs/Day Years Used Date Smoking Tobacco: Former Cigarettes 0 05/22/2014 - 10/14/2018 Passive Smoke Exposure: Current Smokeless Tobacco: Never Alcohol Use Standard Drinks/Week Comments Not Currently 3 (1 standard drink = 0.6 oz pure alcohol) Date nights maybe wednesday and wednesday [facility] Utilities Answer Date Recorded In the past 12 months has [facility], gas, oil, or water [employer] threatened to shut off services in your [...] on file 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 Link https://[employer].[facility] center[facility] Medicalorg/topic/clinical-answers/cnt-[email or web address]/[facility]-204 14066 Procedure Note Paulina Liu M.D. - 08/03/2025 [...] thrombosis and management can be found on the[employer] site. Linkhttps://[employer].[facility] center[facility].org/topic/clinical-answers/cnt-[email or web address]/[facility] -2049 2195 IMPRESSION: 1. 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 2. 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 3. Negative for acute DVT within both upper extremities. Hang Arrington M.D. IM US PROCEDURES Final Resu lt documented in this encounter Visit Diagnoses Diagnosis Embolus Pulmonary (HCC) Anticoagulant Therapy documented in this encounter Care Teams Bezel Cutter Relationship Specialty Start Date End Date Elsewhere, Pcp PCP - General Internal Medicine 04/12/24 documented as of this encounter
--- OUTSIDE RECORDS SUMMARY | 2025-08-03 14:35 | XMS_ITS | Encounter Summary ---
Author Organization [facility] Address [address] [place] [address] Care Team Providers Care Poker Prop Player Name Role Phone Elsewhere, Pcp Primary Care Provider Unavailabl e Reason for Referral * Outpatient (Routine) - Closed Specialty Diagnoses / Procedures Referred By Contac t Referred To Contact Diagnoses Pain Chest Procedures US Lower Extremity Veins Bilateral Hang Arrington M.D. 200 [place] [address] Phone: tel: fax: [facility] Referral ID Status Reason Start Date Expiration Date Visits Re quested Visits Authorized [id number] Closed 07/19/2025 10/19/2026 1 1 Reason for Visit * Outpatient (Routine) - Closed Specialty Diagnoses / Procedures Referred By Contac t Referred To Contact Diagnoses Pain Chest Procedures US Lower Extremity Veins Bilateral Hang Arrington M.D. 200 [place] [address] Phone: tel: fax: [facility] Referral ID Status Reason Start Date Expiration Date Visits Re quested Visits Authorized [id number] Closed 07/19/2025 10/19/2026 1 1 Encounter Details Date Type Department Care Team (Latest Contact Info) Description 08/03/2025 2:35 PM CDT - 08/03/2025 11:59 PM CDT Hospital Encounter Department of Radiology, [facility], in [place], [place] [address] [place] [address] Hang Arrington M.D. [address] [place] [address] Pain Chest Discharge Disposition: Home or Self [...] your living situation today? 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 15 tablet 08/03/2025 5:00 PM CDT 08/03/2025 5 documented as of this encounter Plan of Treatment Not on file documented as of this encounter Procedures Procedure Name Priority Date/Time Associated Diagnosis Comments US LOWER EXTREMITY VEINS BILATERAL 08/03/2025 4:14 PM CDT Pain Chest documented in this encounter Results * US Lower Extremity [...] Doppler analysis. COMPARISON: Outside ultrasound dated 06/21/2025; [facility] ultrasounds dated 10/12/2024 and 07/01/2024. FINDINGS: RIGHT: [...] and management can be found on the [employer] site. Link https://[employer]back[employer].[facility].org/topic/clinical-answers/cnt-[email or web address]/cpm-204 93203 Procedure Note Paulina Liu M.D. - 08/03/2025 EXAM: US LOWER EXTREMITY VEINS BILATERAL Exam performed with color and spectral Doppler analysis. COMPARISON: Outside ultrasound dated 06/21/2025; [facility] ultrasoundsdated 10/12/2024 and 07/01/2024. FINDINGS: RIGHT: Common [...] thrombosis and management can be found on theAskMayoExpert site. Linkhttps://askmayoexpert.[facility].org/topic/clinical-answers/[email or web address]/cpm -2049 1725 IMPRESSION: Negative for acute DVT within both lower extremities. us Hang Arrington M.D. IMG US PROCEDURES Final Resu lt documented in this encounter Visit Diagnoses Diagnosis Pain Chest documented in this encounter Care Teams Poker Prop Player Relationship Specialty Start Date End Date Elsewhere, Pcp PCP - General Internal Medicine 04/12/24 documented as of this encounter
--- OUTSIDE RECORDS SUMMARY | 2025-08-03 14:35 | XMS_ITS | Encounter Summary ---
Author Organization [facility] Address [address] [place] [address] Care Team Providers Care Product Builder Name Role Phone Elsewhere, Pcp Primary Care Provider Unavailabl e Reason for Referral * Outpatient (Routine) - Closed Specialty Diagnoses / Procedures Referred By Contac t Referred To Contact Diagnoses Pain Chest Procedures US Lower Extremity Veins Bilateral Hang Arrington M.D. 200 [place] [address] Phone: tel: fax: [facility] Referral ID Status Reason Start Date Expiration Date Visits Re quested Visits Authorized [id number] Closed 07/19/2025 10/19/2026 1 1 Reason for Visit * Outpatient (Routine) - Closed Specialty Diagnoses / Procedures Referred By Contac t Referred To Contact Diagnoses Pain Chest Procedures US Lower Extremity Veins Bilateral Hang Arrington M.D. 200 [place] [address] Phone: tel: fax: [facility] Referral ID Status Reason Start Date Expiration Date Visits Re quested Visits Authorized [id number] Closed 07/19/2025 10/19/2026 1 1 Encounter Details Date Type Department Care Team (Latest Contact Info) Description 08/03/2025 2:35 PM CDT - 08/03/2025 11:59 PM CDT Hospital Encounter [facility] in [place], [place] [address] [place] [address] Hang Arrington M.D. [address] [place] [address] Pain Chest Discharge Disposition: Home or Self Care Social History Tobacco Use Types Packs/Day Years Used Date Smoking Tobacco: Former Cigarettes 0 05/22/2014 - 10/14/2018 Passive Smoke Exposure: Current Smokeless Tobacco: Never Alcohol Use Standard Drinks/Week Comments Not Currently 3 (1 standard drink = 0.6 oz pure alcohol) Date nights maybe wednesday and wednesday [facility] Utilities Answer Date Recorded In the [...] living situation today? 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 COMPARISON: Outside ultrasound dated 06/21/2025; [facility] ultrasounds dated 10/12/2024 and 07/01/2024. FINDINGS: [...] and management can be found on the [employer] site. Link https://[employer]agle Alpha[employer].[facility].org/topic/clinical-answers/cnt-[email or web address]/cpm-204 [address]7822 Procedure Note Paulina Liu M.D. - 08/03/2025 EXAM: US LOWER EXTREMITY VEINS BILATERAL Exam performed with color and spectral Doppler analysis. COMPARISON: Outside ultrasound dated 06/21/2025; [facility] ultrasoundsdated 10/12/2024 and 07/01/2024. FINDINGS: RIGHT: [...] management can be found on theAskMayoExpert site. Linkhttps://askmayoexpert.[facility].org/topic/clinical-answers/cnt-[email or web address]/cpm -2049 1725 IMPRESSION: Negative for acute DVT within both lower extremities. us Hang Arrington M.D. IMG US PROCEDURES Final Resu lt documented in this encounter Visit Diagnoses Diagnosis Pain Chest documented in this encounter Care Teams Product Builder Relationship Specialty Start Date End Date Elsewhere, Pcp PCP - General Internal Medicine 04/12/24 documented as of this encounter
--- OUTSIDE RECORDS SUMMARY | 2025-08-03 15:00 | XMS_ITS | Encounter Summary ---
Author Organization [facility] Address [address] [place] [address] Care Team Providers Care Grand Jury Deputy Sheriff Name Role Phone Elsewhere, Pcp Primary Care Provider Unavailabl e Reason for Visit * Outpatient (Routine) - Closed Specialty Diagnoses / Procedures Referred By Contac t Referred To Contact Vascular Medicine Hang Arrington M.D. [address] [place] [phone] Phone: tel: fax: [facility] Referral ID Status Reason Start Date Expiration Date Visits Re quested Visits Authorized [id number] Closed 07/19/2025 01/18/2027 1 1 Encounter Details Date Type Department Care Team (Late st Contact Info) Description 08/03/2025 3:00 PM CDT Office Visit Department of Vascular Medicine in [place], [place] [address] [place] [phone] Hang Arrington M.D. [address] [place] [phone] Embolus Pulmonary Personal History (Primary Dx); Thrombophlebitis Superficial Upper Limb; Folate Deficiency Anemia Unspecified; Anemia B12 Deficiency; Anticoagulant Therapy Social History Tobacco Use Types Packs/Day Years Used Date Smoking Tobacco: Former Cigarettes 0 05/22/2014 - 10/14/2018 Passive Smoke Exposure: Current Smokeless Tobacco: Never Alcohol Use Standard Drinks/Week Comments Not Currently 3 (1 standard drink = 0.6 oz pure alcohol) Date nights maybe wednesday and wednesday [facility] Utilities Answer Date Recorded In the [...] your living situation today? 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 - 08/03/2025 3:00 PM CDT CHIEF COMPLAINT Ms. El Live presents to clinic for evaluation of the issues below. HISTORY OF PRESENT ILLNESS Ms. 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 Earlier this year weupped her low-molecular weight heparin dose from 120 mg twice daily to 150 mg twice daily and we did see improvement with reduced clot burden. She had no bleeding complications on this regimen. She reports no symptoms of gastrointestinal hemorrhage or other sources of bleeding. She has had ongoing dyspnea on exertion and chest pain. I have referred her to Cardiology about this and after my last visit I asked for V/Q scan to look for signs of chronic PE changes. This showed no perfusion defects. She had to cancel the cardiology appointment due to childcare issues but plans to reschedule this. Interestingly she feels that her dyspnea is improved recently. The main recent issue she has been dealing with since my last visit with her is superficial thrombophlebitis. Again quite vexing because it appeared to occur despite anticoagulant therapy. She has significant right forearm pain currently in an area overlying SVT and this has been refractory to acetaminophen and NSAID. She is using warm compress over the area. Also, she sent me a message through the portal recently showing significant, spontaneous left lowerextremity edema. This prompted evaluation at a local hospital. She tells me they did to ultrasoundsthere that did not show deep vein thrombosis and without any other therapies or changes specifically, the symptom resolved In the background is that she has folate and B12 deficiency with macrocytic anemia. She is on supplementation currently with both folate and B12 and although levels of these vitamins are reduced they(particularly folate) has improved. MEDICATIONS Current Medications[1] EXAMINATION General: In no respiratory distress when I saw her Extremities: Right forearm shows area of mild erythema but warmth that is tender, consistent with SVT. There is a similar area in the left upper extremity but not as significantly symptomatic. There is no lower extremity edema or asymmetry on exam. ASSESSMENT AND PLAN #1 Embolus Pulmonary Personal History #2 Thrombophlebitis Superficial Upper Limb #3 Folate Deficiency Anemia Unspecified #4 Anemia B12 Deficiency #5 Anticoagulant Therapy Upper extremity venous duplex ultrasound shows acute on chronic SVT in the cephalic vein on the right and chronic SVT in the left cephalic vein. Lower extremity venous duplex ultrasound shows no evidence of acute or chronic DVT As mentioned under HPI, recent V/Q scan was negative for any chronic PE findings Since she has no findings of deep vein thrombosis at this time either chronic or recurrent, and hasno sign of recurrent PE since her last episode (PE diagnosed 06/21/2025), I would like to reduce her Lovenox dose back to 1 milligram/kilogram twice a day which is 120 mg twice daily. We went over ins tructions about how to do this using her current supply of 150 mg syringes. I want to do this because I do not want to precipitate bleeding complications and because we have apparent resolution of her most recent clot. It is uncertain to me why she has recurrent superficial vein thrombosis unless it was related to peripheral IV with enough venous trauma to precipitate it. She has no evidence of previous cross-sectional imaging (CT chest abdomen pelvis for example) of underlying malignancy to produce a Trousseau syndrome. 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 I will see her in follow-up once she sees Cardiology and we will determine at that point when to follow-up in terms of laboratory testing and imaging. Given the significant pain that she is experiencing with the acute on chronic right upper extremitySVT she requested a small supply of oxycodone, which she has taken previously and which helped. I gave her enough for a few days only for acute management of that symptom. Hang Arrington M.D. Vascular Medicine Pager: [phone] Total time: Greater than 25 minutes time spent taking interval history performing exam and reviewing images from today's imaging studies myself. [1] Current Outpatient Medications Medication Sig Dispense Refill enoxaparin (Lovenox) 150 mg/mL injection Inject 0.8 [...] 2 tablets (2 mg total) by mouth daily for 10 days. 20 tablet 0 multivitamin tablet Take 1 tablet by mouth daily. oxyCODONE (Roxicodone) 5 mg immediate release tablet Take 1 tablet (5 mg total) by mouth every 6 (six) hours as needed for pain for up to 6 doses Indication: Acute Pain. 6 tablet 0 pantoprazole (Protonix) 40 mg EC tablet Take 1 tablet by mouth daily. No current facility-administered medications for this visit. documented in this encounter Plan of Treatment Not on file documented as of this encounter Visit Diagnoses Diagnosis Embolus Pulmonary Personal History- Primary Thrombophlebitis Superficial Upper Limb Folate Deficiency Anemia Unspecified Anemia B12 Deficiency Anticoagulant Therapy documented in this encounter Care Teams Grand Jury Deputy Sheriff Relationship Specialty Start Date End Date Elsewhere, Pcp PCP - General Internal Medicine 04/12/24 documented as of this encounter
--- OUTSIDE RECORDS SUMMARY | 2025-08-03 15:00 | XMS_ITS | Encounter Summary ---
Author Organization [facility] Address [address] [place] [address] Care Team Providers Care Tank Washer Name Role Phone Elsewhere, Pcp Primary Care Provider Unavailabl e Reason for Visit * Outpatient (Routine) - Closed Specialty Diagnoses / Procedures Referred By Contac t Referred To Contact Vascular Medicine Hang Arrington M.D. [address] [place] [phone] Phone: tel: fax: [facility] Referral ID Status Reason Start Date Expiration Date Visits Re quested Visits Authorized [id number] Closed 07/19/2025 01/18/2027 1 1 Encounter Details Date Type Department Care Team (Late st Contact Info) Description 08/03/2025 3:00 PM CDT Office Visit Department of Vascular Medicine in [place], [place] [address] [place] [phone] Hang Arrington M.D. 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 Hang Arrington M.D. Vascular Medicine Pager: [phone] Total time: Greater than 25 minutes time [...] Therapy documented in this encounter Care Teams Tank Washer Relationship Specialty Start Date End Date Elsewhere, Pcp PCP - General Internal Medicine 04/12/24 documented as of this encounter
--- OUTSIDE RECORDS SUMMARY | 2025-08-04 12:49 | XMS_ITS | Encounter Summary ---
Author Organization [facility] er Address [address] [place] [address] Care Team Providers Care Sheet Metal Engineer Name Role Phone None, Pcp Primary Care Provider Unavailabl e Reason for Visit * Reason Comments Med Refill Encounter Details Date Type Department Care Team (Late st Contact Info) Description 08/04/2025 12:49 PM CDT - 08/04/2025 1:40 PM CDT Emergency [facility] Emergency Room [address] [place], [place] [address] Encounter for medication refill (Primary Dx) Discharge Disposition: Home or Self Care Social History Tobacco Use Types Packs/Day Years Used Date Smoking Tobacco: Every Day Cigarettes Smokeless Tobacco: Never Tobacco Cessation:Ready to Q uit: Not Asked; Counseling Given: Not Answered Comments No Sex and Gender Information Value Date Recorded Sex Assigned at Not on file Legal Sex Female 12:42 PM CDT Gender Identity Not on file Sexual Orientation Not on file documented as of this encounter Last Filed Vital Signs Vital Sign Reading Time Taken Comments Blood Pressure 134/84 08/04/2025 12:51 PM CDT Pulse 56 08/04/2025 12:51 PM CDT Temperature 36.7 C (98.1 F) 08/04/2025 12:51 PM CDT Respiratory Rate 18 08/04/2025 12:51 PM CDT Oxygen Saturation 99% 08/04/2025 12:51 PM CDT Inhaled Oxygen Concentration - - Weight 127 kg (279 lb 1.6 oz) 08/04/2025 12:51 P M CDT Height 175.3 cm (5' 9) 08/04/2025 12:51 PM CDT Body Mass Index 41.22 08/04/2025 12:51 PM CDT documented in this encounter Discharge Instructions * Discharge Instructions* Nahed Crowell PA-C - 08/04/2025 1:37 PM CDT Please follow up with your primary team to obtain a refill of your narcotic pain medications. Lovenox Rx printed for you today documented in this encounter Medications at Time of Discharge enoxaparin (LOVENOX) 150 MG/ML injection Inject 1 mL (150 mg total) under the skin 1 (one) time each day enoxaparin (LOVENOX) 150 MG/ML injectionIndicat ions:Encounter for medication refill Inject 1 mL (150 mg total) under the skin every 12 (twelve) hours for 7 days 14 mL 08/04/2025 08/11/2025 oxyCODONE (ROXICODONE) 5 MG immediate release tablet Take 1 tablet (5 mg total) by mouth every 4 (four) hours if needed for moderate pain documented as of this encounter ED Notes * Paulette Frias RN - 08/04/2025 12:52 PM CDT Pt presents reporting she has a blood clot in her right wrist and was given oxy and Lovenox for this. Pt reports she left medications in hotel this AM and staff threw them away. Pt called [facility] and they told her to go to [facility]. * Nahed Crowell PA-C - 08/04/2025 12:42 PM CDT HPI Chief Complaint Patient presents with Med Refill Karo Live is a 30 y.o. female, new to our organization, with what appears to be a complex past medical history, seeing [facility] vascular medicine for thrombophilia and recurrent thromboembolism, who presents to [facility]'s ED for refill of her oxycodone and Lovenox. Patient states she left these medications at her hotel this morning, and they threw away her cosmetic case and all medications. Notes she called her vascular team at [facility] and they recommended she obtain these refills elsewheredue to needing a paper copy. Per PDMP review, patient was dispensed 15 tablets of oxycodone 5 mg on 07/31, the same day she was also dispensed 15 tablets of hydrocodone-acetaminophen 5- 325 mg. She was dispensed 15 tablets of oxycodone 5 mg yesterday, 08/03. History provided by: Patient Patient History Patient History Allergies[1] Medical History[2] Surgical History[3] Family History[4] Social History Tobacco Use Smoking status: Every Day Types: Cigarettes Smokeless tobacco: Never Substance Use Topics Alcohol use: Not on file Drug use: Not on file Review of Systems Review of Systems Musculoskeletal: Positive for arthralgias. Physical Exam ED Triage Vitals [08/04/25 1251] Temp Heart Rate Resp BP 36.7 ??C (98.1 ??F) 56 18 134/84 SpO2 Temp Source Heart Rate Source Patient Position 99 % Temporal Monitor Sitting BP Location FiO2 (%) Weight Right arm -- 127 kg (279 lb 1.6 oz) Body mass index is 41.22 kg/m??. Physical Exam Vitals and nursing note reviewed. Constitutional: Appearance: Normal appearance. Cardiovascular: Rate and Rhythm: Normal rate. Pulmonary: Effort: Pulmonary effort is normal. Neurological: Mental Status: She is alert. [place] Coma Scale Score: 15 Procedures Labs Reviewed - No data to display ED Course & MDM Medical Decision Making 30-year-old female here requesting a refill of her opioid medications and Lovenox. I am happy to refill her Lovenox, however will not be refilling her opioid pain medication. She needs to have this refilled by her prescribing provider. Patient encouraged to follow-up with her primary team for this refill Follow Up No follow-up provider specified. Discharge Medication List as of 08/04/2025 1:38 PM START taking these medications Details !! enoxaparin (LOVENOX) 150 MG/ML injection Inject 1 mL (150 mg total) under the skin every 12 (twelve) hours for 7 days, Starting 08/04/2025, Until 08/11/2025, Print !! - Potential duplicate medications found. Please discuss with provider. CONTINUE these medications which have NOT CHANGED Details !! enoxaparin (LOVENOX) 150 MG/ML injection Inject 1 mL (150 mg total) under the skin 1 (one) time each day, Historical Med oxyCODONE (ROXICODONE) 5 MG immediate release tablet Take 1 tablet (5 mg total) by mouth every 4 (four) hours if needed for moderate pain, Historical Med !! - Potential duplicate medications found. Please discuss with provider. Discharge Instructions Please follow up with your primary team to obtain a refill of your narcotic pain medications. Lovenox Rx printed for you today ED COURSE and CLINICAL IMPRESSION Clinical Impressions as of 08/04/25 1340 Encounter for medication refill Disposition: Discharge [1] No Known Allergies [2] History reviewed. No pertinent past medical history. [3] History reviewed. No pertinent surgical history. [4] No family history on file. Nahed Crowell PA-C 08/04/25 1341 documented in this encounter Plan of Treatment Not on file documented as of this encounter Visit Diagnoses Diagnosis Encounter for medication refill- Primary documented in this encounter Care Teams Sheet Metal Engineer Relationship Specialty Start Date End Date None, Pcp [address] [place] [phone] PCP - General [place] Tower Loader 08/04/25 documented as of this encounter
--- OUTSIDE RECORDS SUMMARY | 2025-08-04 12:49 | XMS_ITS | Encounter Summary ---
Author Organization [facility] er Address [address] [place] [address] Care Team Providers Care Home Energy Inspector Name Role Phone None, Pcp Primary Care Provider Unavailabl e Reason for Visit * Reason Comments Med Refill Encounter Details Date Type Department Care Team (Late st Contact Info) Description 08/04/2025 12:49 PM CDT - 08/04/2025 1:40 PM CDT Emergency [facility] Emergency Room [address] [place], [place] [id number] Encounter for medication refill (Primary Dx) Discharge [...] and staff threw them away. Pt called [facility] and they told her to go to [facility]. * Nahed Crowell PA-C - 08/04/2025 12:42 PM CDT HPI Chief Complaint Patient presents with Med Refill Karo Live is a 30 y.o. female, new to our organization, with what appears to be a complex past medical history, seeing [facility] vascular medicine for thrombophilia and recurrent thromboembolism, who presents to [facility]'s ED for refill of her oxycodone and Lovenox. Patient states she left these medications at her hotel this morning, and they threw away her cosmetic case and all medications. Notes she called her vascular team at [facility] and they recommended she obtain these refills [...] normal. Neurological: Mental Status: She is alert. [place] Coma Scale Score: 15 Procedures Labs Reviewed [...] Primary documented in this encounter Care Teams Home Energy Inspector Relationship Specialty Start Date End Date None, Pcp [address] [place] [phone] PCP - General Second Grade Teacher 08/04/25 documented as of this encounter
--- OUTSIDE RECORDS SUMMARY | 2025-08-04 16:54 | XMS_ITS | Encounter Summary ---
Author Organization [facility] Address [address] [place] [address] Care Team Providers Care Marina Porter Name Role Phone Elsewhere, Pcp Primary Care Provider Unavailabl e Reason for Visit * Reason Comments Med Refill Patient present requ esting medication refill for Lovenox, oxycodone, folic acid after forgetting her medication bag in hotel last night. Hotel disposed of medications after check out today. Vascular MD requested that patient be seen in ED as they do not have privileges to prescribe electronically. Patient had morning doses of all medications today. Telephone encounter at 0457 today requesting refill by vascular provider. Lovenox refill sent and filled ~2 hours ago. Encounter Details Date Type Department Care Team (Late st Contact Info) Description 08/04/2025 4:54 PM CDT - 08/04/2025 5:45 PM CDT Emergency [facility] [address] [place] [address] [phone] Valerio Bernardo, ELDA, C.N.P., D.N.P. 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 enoxaparin (Lovenox) 120 mg/0.8 mL injection Inject 0.8 mL (120 mg total) under the skin 2 (two) times a day. 48 mL 08/07/2025 ferrous sulfate 325 mg (65 mg iron) DR tablet Take 325 mg by mouth 3 (three) times a day. multivitamin tablet Take 1 tablet by mouth daily. pantoprazole (Protonix) 40 mg EC tablet Take 1 tablet by mouth daily. 12/16/2023 enoxaparin (Lovenox) 120 mg/0.8 mL injection Inject 0.8 mL (120 mg total) under the skin 2 (two) times a day. 48 mL 08/07/2025 enoxaparin (Lovenox) 150 mg/mL injection Inject 150 mg under the skin 2 (two) times a day. enoxaparin (Lovenox) 150 mg/mL injection Inject 0.8 mL (120 mg total) under the skin 2 (two) times a day. 08/06/2025 5 documented as of this encounter Plan of Treatment Not on file documented as of this encounter Visit Diagnoses Diagnosis Pain Wrist Right- Primary Medication Management Issue documented in this encounter Care Teams Marina Porter Relationship Specialty Start Date End Date Elsewhere, Pcp PCP - General Internal Medicine 04/12/24 documented as of this encounter
--- OUTSIDE RECORDS SUMMARY | 2025-08-04 16:54 | XMS_ITS | Encounter Summary ---
Author Organization [facility] Address [address] [place] [address] Care Team Providers Care Patient'S Librarian Name Role Phone Elsewhere, Pcp Primary Care [...] CDT - 08/04/2025 5:45 PM CDT Emergency [facility] [address] [place] [address] [phone] Valerio Bernardo, ELDA, C.N.P., D.N.P. [address] [place] [phone] Pain Wrist Right (Primary Dx); Medication Management [...] your living situation today? 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
--- OUTSIDE RECORDS SUMMARY | 2025-08-06 11:24 | XMS_ITS | Encounter Summary ---
Author Organization [place] Address [address] [facility] [place] [address] Care Team Providers Care Waste/Materials Exchange Specialist Name Role Phone Sarah Juares MD Primary Care Provider Unav ailable Purvi Jeong [facility] Unavailable [phone] Lucas Nuno MD Unavailable [phone] Meghan Cox [facility] Unavailable [phone] Reason for Visit * Reason Comments Nausea & Vomiting Medication Refill Encounter Details Date Type Department Care Team (Late st Contact Info) Description 08/06/2025 11:24 AM CDT - 08/06/2025 1:39 PM T Emergency [facility] Emergency Dept [address] [place] [address] Art Starr MD [facility] [address] [place] [address] Nausea and vomiting, unspecified vomiting type (Primary Dx) Discharge Disposition: Home or Self Care Social History Tobacco Use Types Packs/Day Years Used Date Smoking Tobacco: Former Smokeless Tobacco: Never Alcohol Use Standard Drinks/Week Comments Not Currently 0 (1 standard drink = 0.6 oz pur e alcohol) rare PHQ-2 Answer Date Recorded PHQ-2 Score 0 02/22/2025 [place] Depression Scale Answer Date Recorded [place] Depression Score 1 07/06/2021 Last EPDS Self [...] AM CDT 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 Gender Identity Female 06/03/2022 7:36 AM CDT Sexual Orientation Straight 06/03/2022 7: 36 AM CDT documented as of this encounter Last Filed Vital Signs Vital Sign Reading Time Taken Comments Blood Pressure 161/109 08/06/2025 11:11 AM CDT Pulse 94 08/06/2025 11:08 AM CDT Temperature 36.4 C (97.5 F) 08/06/2025 11:08 AM CDT Respiratory Rate 18 08/06/2025 11:0 8 AM CDT Oxygen Saturation 100% 08/06/2025 11: 08 AM CDT Inhaled Oxygen Concentration - - Weight 121.7 kg (268 lb 4.8 oz) 025 11:08 AM CDT Height 175.3 cm (5' 9) 08/06/2025 11:0 8 AM CDT Body Mass Index 39.62 08/06/2025 11:08 AM CDT documented in this encounter Discharge Instructions * Attachments The following attachments cannot be sent through Care Everywhere. * Nausea and Vomiting (Greenlandic) documented in this encounter Medications at Time of Discharge acetaminophen (TYLENOL) 325 MG tabletIndications :Hiatal hernia,History of repair of hiatal hernia Take 2 tablets (650 mg) by mouth every 4 hours as needed for mild pain. 50 tablet 5 bisacodyl (DULCOLAX) 10 MG suppositoryIndica tions:Constipatio n, unspecified constipation type Place 1 suppository (10 mg) rectally daily as needed for constipation. 28 suppository 1 5 diphenhydrAMINE (BENADRYL) 25 MG capsuleIndication s:Acute post-operative pain Take 1 capsule (25 mg) by mouth every 6 hours as needed for itching. 30 capsule 5 doxycycline monohydrate (ADOXA) 100 MG tablet Take 100 mg by mouth 2 times daily escitalopram (LEXAPRO) 10 MG tablet Take 10 mg by mouth every evening. 5 ferrous sulfate (FE TABS) 325 (65 Fe) MG EC tablet Take 325 mg by mouth 2 times daily. folic acid (FOLVITE) 1 MG tablet Take 2 mg by mouth every morning. 4 HYDROmorphone (DILAUDID) 2 MG tabletIndications :Acute post-operative pain Take 1 tablet (2 mg) by mouth every 4 hours as needed for severe pain. 42 tablet 5 hydrOXYzine HCl (ATARAX) 25 MG tabletIndications :Acute post-operative pain Take 1 tablet (25 mg) by mouth every 6 hours as needed for anxiety (adjuvant pain). 20 tablet 1 5 multivitamin, therapeutic (THERA-VIT) TABS tablet Take 1 tablet by mouth every morning. naloxone (NARCAN) 4 MG/0.1ML nasal sprayIndications: Acute post-operative pain [place] 1 spray (4 mg) into one nostril alternating nostrils as needed for opioid reversal. every 2-3 minutes until assistance arrives 2 each 1 5 ondansetron (ZOFRAN ODT) 4 MG ODT tabIndications:Ac natalya post-operative pain Take 1 tablet (4 mg) by mouth every 8 hours as needed for nausea or vomiting. 30 tablet 1 5 pantoprazole (PROTONIX) 40 MG EC tabletIndications :Eosinophilic esophagitis Take 1 tablet (40 mg) by mouth daily 90 tablet 3 4 polyethylene glycol (MIRALAX) 17 GM/Dose powderIndications :Constipation, unspecified constipation type Take 17 g (1 Capful) by mouth daily. 510 g 1 5 potassium 99 MG TABS Take 1 tablet by mouth every morning. senna-docusate (EASY-LAX PLUS) 8.6-50 MG tabletIndications :Constipation, unspecified constipation type Take 1 tablet by mouth 2 times daily as needed for constipation. 30 tablet 5 sucralfate (CARAFATE) 1 GM/10ML suspensionIndicat ions:Acute post-operative pain Take 10 mLs (1 g) by mouth 4 times daily (before meals and nightly). 473 mL 2 5 tirzepatide-weigh t management (ZEPBOUND) 5 MG/0.5ML vial Inject 5 mg subcutaneously once a week. tiZANidine (ZANAFLEX) 4 MG tabletIndications :Hiatal hernia Take 1 tablet (4 mg) by mouth 3 times daily as needed for muscle spasms. 30 tablet 5 documented as of this encounter ED Notes * Art Starr MD - 08/06/2025 1:39 PM CDT Patient consent obtained for Ambient scribe use. 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 She reports a recent hospitalization at [facility] following a blood clot and E. coli infection, which was associated with vomiting and treated with antibiotics for approximately one and a half weeks. Vomiting began on July 21, 2025, described as morning sickness-type nausea, and has persisted since then. She is not currently vomiting but is nauseated. She notes occasional left upper quadrant abdominal pain, not currently experiencing this. She states that Zyprexa has been helpful in the past. She has not yet seen GI. Independent Historian None Review of External Records Reviewed outside health system ED visit from 08/04/2025 regarding medication refill and vomiting Allergies: Tramadol Azithromycin Nsaids Penicillins Sulfa Antibiotics Medications: acetaminophen (TYLENOL) 325 MG tablet bisacodyl (DULCOLAX) 10 MG suppository diphenhydrAMINE (BENADRYL) 25 MG capsule doxycycline monohydrate (ADOXA) 100 MG tablet escitalopram (LEXAPRO) 10 MG tablet ferrous sulfate (FE TABS) 325 (65 Fe) MG EC tablet folic acid (FOLVITE) 1 MG tablet HYDROmorphone (DILAUDID) 2 MG tablet hydrOXYzine HCl (ATARAX) 25 MG tablet multivitamin, therapeutic (THERA-VIT) TABS tablet naloxone (NARCAN) 4 MG/0.1ML nasal spray ondansetron (ZOFRAN ODT) 4 MG ODT tab pantoprazole (PROTONIX) 40 MG EC tablet polyethylene glycol (MIRALAX) 17 GM/Dose powder [Paused] potassium 99 MG TABS senna-docusate (EASY-LAX PLUS) 8.6-50 MG tablet sucralfate (CARAFATE) 1 GM/10ML suspension [Paused] tirzepatide-weight management (ZEPBOUND) 5 MG/0.5ML vial tiZANidine (ZANAFLEX) 4 MG tablet Past History: Past Medical History: Diagnosis Date Anemia, unspecified type 04/19/2023 Depressive disorder Folate deficiency anemia, unspecified Gastroesophageal reflux disease with esophagitis, unspecified whether hemorrhage 10/23/2021 Hiatal hernia History of blood transfusion Hyperhomocysteinemia JH (obstructive sleep apnea) Pneumonia Pulmonary embolism (H) 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 Mouth/Throat: Oropharynx is clear, mucous membranes are moist Eyes: EOM are normal. CV: regular rate and rhythm; no murmurs, rubs or gallups Chest: Effort normal and breath sounds normal. GI: There is no tenderness. No distension. Normal bowel sounds MSK: Normal range of motion. Neurological: Alert, attentive Skin: Skin is warm and dry. Emergency Department Course Results for orders placed or performed during the hospital encounter of 08/06/25 Comprehensive Metabolic Panel (Limited Occurrences) Status: Abnormal Result Value Ref Range Sodium 140 135 - 145 mmol/L Potassium 3.7 3.4 - 5.3 mmol/L Carbon Dioxide (CO2) 21 (L) 22 - 29 mmol/L Anion Gap 14 7 - 15 mmol/L Urea Nitrogen 4.0 (L) 6.0 - 20.0 mg/dL Creatinine 0.59 0.51 - 0.95 mg/dL GFR Estimate >90 >60 mL/min/1.73m2 Calcium 9.2 8.8 - 10.4 mg/dL Chloride 105 98 - 107 mmol/L Glucose 100 (H) 70 - 99 mg/dL Alkaline Phosphatase 63 40 - 150 U/L AST 37 0 - 45 U/L ALT 38 0 - 50 U/L Protein Total 6.9 6.4 - 8.3 g/dL Albumin 3.9 3.5 - 5.2 g/dL Bilirubin Total 1.1 <=1.2 mg/dL Lipase Status: Normal Result Value Ref Range Lipase 16 13 - 60 U/L [place] Draw Status: None Narrative The following orders were created for panel order [place] Draw. Procedure Abnormality Status --------- ------ Extra Blue Top Tube[[id number]] Final result Please view results for these tests on the individual orders. CBC with platelets and differential Status: Abnormal Result Value Ref Range WBC Count 8.96 4.00 - 11.00 10e3/uL RBC Count 3.55 (L) 3.80 - 5.20 10e6/uL Hemoglobin 12.4 11.7 - 15.7 g/dL Hematocrit 35.7 35.0 - 47.0 % MCV 100.6 (H) 78.0 - 100.0 fL MCH 34.9 (H) 26.5 - 33.0 pg MCHC 34.7 31.5 - 36.5 g/dL RDW 14.3 10.0 - 15.0 % Platelet Count 287 150 - 450 10e3/uL % Neutrophils 84.3 % % Lymphocytes 11.0 % % Monocytes 4.0 % % Eosinophils 0.3 % % Basophils 0.2 % % Immature Granulocytes 0.2 % NRBCs per 100 WBC 0.0 <1.0 /100 Absolute Neutrophils 7.54 1.60 - 8.30 10e3/uL Absolute Lymphocytes 0.99 0.80 - 5.30 10e3/uL Absolute Monocytes 0.36 0.00 - 1.30 10e3/uL Absolute Eosinophils 0.03 0.00 - 0.70 10e3/uL Absolute Basophils <0.03 0.00 - 0.20 10e3/uL Absolute Immature Granulocytes <0.03 <=0.40 10e3/uL Absolute NRBCs <0.03 10e3/uL Extra Blue Top Tube Status: None Result Value Ref Range Hold Specimen [facility] CBC with Platelets and Differential (Limited Occurrences) Status: Abnormal Narrative The following orders were created for panel order CBC with Platelets and Differential (Limited Occurrences). Procedure Abnormality Status --------- ------ CBC with platelets and ...[[id number]] Abnormal Final result Please view results for these tests on the individual orders. Emergency Department Course & Assessments: Interventions: Medications diphenhydrAMINE (BENADRYL) injection 25 mg (25 mg Intravenous $Given 08/06/25 1240) metoclopramide (REGLAN) injection 10 mg (10 mg Intravenous $Given 08/06/25 1240) sodium chloride 0.9% BOLUS 1,000 mL (1,000 mLs Intravenous $New Bag 08/06/25 1239) Disposition: The patient was discharged to home. 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 She is not actively vomiting in the department. Shehas a benign abdominal exam and denies pain at this time. Symptoms are improved with supportive cares and labs are reassuring. The patient abruptly had to leave to go care for her son who fell at daycare, but I related all lab values to her, recommended GI follow-up, discussed return precautions. All questions were answered. Differential could include possible gastritis or hyperemesis syndrome she denies any current marijuana use. Plan primary care follow-up for recheck in 3 to 5 days and return precautions for persistent vomiting, pain, or any other concerns. Diagnosis: Visit Diagnosis, Associated Orders, and Comments ICD-10-CM 1. Nausea and vomiting, unspecified vomiting type R11.2 Art Starr MD 08/06/25 1522 * Olivia Chiu RN - 08/06/2025 1:12 PM CDT Pt informed information writer that school nurse called her to inform her that her son fell off playground and possibly broke nose. 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 Removed IV. Pt stated she would be back with son and would get results and have re-eval at that time. * Sandhya Anaya RN - 08/06/2025 11:09 AM CDT Patient reports concerns with ongoing E Coli. Reports ongoing N/V for about 3 weeks. Known blood clot in right arm, following with vascular at [facility]. On thinner. ABCs intact, A&Ox4 Reports leaving some medications in [place]-asking about refills. Triage Assessment (Adult) Row Name 08/06/25 1109 Triage Assessment Airway WDL WDL Respiratory WDL Respiratory WDL WDL Skin Circulation/Temperature WDL Skin Circulation/Temperature WDL WDL Cardiac WDL Cardiac WDL WDL Peripheral/Neurovascular WDL Peripheral Neurovascular WDL WDL Cognitive/Neuro/Behavioral WDL Cognitive/Neuro/Behavioral WDL WDL documented in this encounter Plan of Treatment Not on file documented as of this encounter Procedures Procedure Name Priority Date/Time Associated Diagnosis Comments EXTRA TUBE STAT 08/06/2025 12:38 PM CDT EXTRA BLUE TOP TUBE STAT 08/06/2025 1 2:38 PM CDT CBC WITH PLATELETS AND DIFFERENTIAL STAT 08/06/2025 12:38 PM CDT CBC WITH PLATELETS AND DIFFERENTIAL (LIMITED OCCURRENCES) STAT 08/06/2025 12:38 PM CDT COMPREHENSIVE METABOLIC PANEL (LIMITED OCCURRENCES) STAT 08/06/2025 12:38 PM CDT LIPASE STAT 08/06/2025 12:38 PM CDT documented in this encounter Results * Extra Blue Top Tube (08/06/2025 12:38 PM CDT) [facility] Hold Specimen [facility] 08/06/2025 2:09 PM CDT LABORATORY Blood STRUCTURE OF LEFT UPPER LIMB / Unknown Venipuncture / Unknown 08/06/2025 12:38 PM CDT 08/06/2025 12:54 PM CDT us Art Starr MD LAB - BLOOD ORDERABLES Fi nal Result LABORATORY [facility] Lab [address] Lab (1st floor, no room number) [place] [address], [facility] * (ABNORMAL) CBC with platelets and differential (08/06/2025 12:38 PM CDT) WBC Count 8.96 4.00 - 11.00 10e3/uL 08/06/2025 1:01 PM CDT [facility] RBC Count 3.55(L) 3.80 - 5.20 10e6/uL 08/06/2025 1:01 PM CDT [facility] Hemoglobin 12.4 11.7 - 15.7 g/dL 08/06/2025 1:01 PM CDT [facility] Hematocrit 35.7 35.0 - 47.0 % 08/06/2025 1:01 PM CDT [facility] MCV 100.6(H) 78.0 - 100.0 fL 08/06/2025 1:01 PM CDT [facility] MCH 34.9(H) 26.5 - 33.0 pg 08/06/2025 1:01 PM CDT [facility] MCHC 34.7 31.5 - 36.5 g/dL 08/06/2025 1:01 PM CDT [facility] RDW 14.3 10.0 - 15.0 % 08/06/2025 1:01 PM CDT [facility] Platelet Count 287 150 - 450 10e3/uL 08/06/2025 1:01 PM CDT [facility] % Neutrophils 84.3 % 08/06/2025 1:01 PM CDT [facility] % Lymphocytes 11.0 % 08/06/2025 1:01 PM CDT [facility] % Monocytes 4.0 % 08/06/2025 1:01 PM CDT [facility] % Eosinophils 0.3 % 08/06/2025 1:01 PM CDT [facility] % Basophils 0.2 % 08/06/2025 1:01 PM CDT [facility] % Immature Granulocytes 0.2 % 08/06/2025 1:01 PM CDT [facility] NRBCs per 100 WBC 0.0 <1.0 /100 08/06/2025 1:01 PM CDT [facility] Absolute Neutrophils 7.54 1.60 - 8.30 10e3/uL 08/06/2025 1:01 PM CDT [facility] Absolute Lymphocytes 0.99 0.80 - 5.30 10e3/uL 08/06/2025 1:01 PM CDT [facility] Absolute Monocytes 0.36 0.00 - 1.30 10e3/uL 08/06/2025 1:01 PM CDT [facility] Absolute Eosinophils 0.03 0.00 - 0.70 10e3/uL 08/06/2025 1:01 PM CDT [facility] Absolute Basophils <0.03 0.00 - 0.20 10e3/uL 08/06/2025 1:01 PM CDT [facility] Absolute Immature Granulocytes <0.03 <=0.40 10e3/uL 08/06/2025 1:01 PM CDT [facility] Absolute NRBCs <0.03 10e3/uL 08/06/2025 1:01 PM CDT [facility] Blood STRUCTURE OF LEFT UPPER LIMB / Unknown Venipuncture / Unknown 08/06/2025 12:38 PM CDT 08/06/2025 12:54 PM CDT us Art Starr MD LAB - BLOOD ORDERABLES Fi nal Result [facility] Lab [address] Lab (1st floor, no room number) [address] * Lipase (08/06/2025 12:38 PM CDT) Lipase 16 13 - 60 U/L 08/06/2025 1:22 PM CDT LABORATORY Blood STRUCTURE OF LEFT UPPER LIMB / Unknown Venipuncture / Unknown 08/06/2025 12:38 PM CDT 08/06/2025 12:54 PM CDT us Art Starr MD LAB - BLOOD ORDERABLES Fi nal Result [facility] Lab [address] Lab (1st floor, no room number) [address] * (ABNORMAL) Comprehensive Metabolic Panel (Limited Occurrences) (08/06/2025 12:38 PM CDT) Sodium 140 135 - 145 mmol/L 08/06/2025 1:22 PM CDT [facility] LAB[facility] Potassium 3.7 3.4 - 5.3 mmol/L 08/06/2025 1:22 PM CDT [facility] Carbon Dioxide (CO2) 21(L) 22 - 29 mmol/L 08/06/2025 1:22 PM CDT [facility] Anion Gap 14 7 - 15 mmol/L 08/06/2025 1:22 PM CDT [facility] Urea Nitrogen 4.0(L) 6.0 - 20.0 mg/dL 08/06/2025 1:22 PM CDT [facility] Creatinine 0.59 0.51 - 0.95 mg/dL 08/06/2025 1:22 PM CDT [facility] GFR Estimate >90 >60 mL/min/1.7 3m2 08/06/2025 1:22 PM CDT [facility] Comment:eGFR calculated usin 2020 CKD-EPI equation. Calcium 9.2 8.8 - 10.4 mg/dL 08/06/2025 1:22 PM CDT [facility] Chloride 105 98 - 107 mmol/L 08/06/2025 1:22 PM CDT LABORATORY Glucose 100(H) 70 - 99 mg/dL 08/06/2025 1:22 PM CDT [facility] Alkaline Phosphatase 63 40 - 150 U/L 08/06/2025 1:22 PM CDT [facility] AST 37 0 - 45 U/L 08/06/2025 1:22 PM CDT [facility] ALT 38 0 - 50 U/L 08/06/2025 1:22 PM CDT [facility] Protein Total 6.9 6.4 - 8.3 g/dL 08/06/2025 1:22 PM CDT [facility] Albumin 3.9 3.5 - 5.2 g/dL 08/06/2025 1:22 PM CDT [facility] Bilirubin Total 1.1 <=1.2 mg/dL 08/06/2025 1:22 PM CDT [facility] Blood STRUCTURE OF LEFT UPPER LIMB / Unknown Venipuncture / Unknown 08/06/2025 12:38 PM CDT 08/06/2025 12:54 PM CDT Art Starr MD LAB - BLOOD ORDERABLES Fi nal Result [facility] Lab [address] [facility] Lab (1st floor, no room number) [place] [address], [facility] documented in this encounter Visit Diagnoses Diagnosis Nausea and vomiting, unspecified vomiting type- Primary documented in this encounter Administered Medications Inactive Administered Medications - up to 3 most recent administrations Medication Order MAR Action Action Date Dose Rate Site diphenhydrAMINE (BENADRYL) injection 25 mg 25 mg, Intravenous, ONCE, On Wed08/06/25 at 1155, For 1 dose $Given 08/06/2025 12:40 PM CDT 25 mg metoclopramide (REGLAN) injection 10 mg 10 mg, Intravenous, Administer over 2 Minutes, ONCE, On Wed08/06/25 at 1155, For 1 dose, Avoid use if patient has full bowel obstruction or perforation. $Given 08/06/2025 12:40 PM CDT 10 mg sodium chloride 0.9% BOLUS 1,000 mL Intravenous, 1,000 mL, ONCE, On Wed08/06/25 at 1155, For 1 dose $New Bag 08/06/2025 12:39 PM CDT 1,000 mLs documented in this encounter Active and Recently Administered Medications Times are shown in CDT. Scheduled Medication Order 08/04/2025 08/05/2025 08/06/2025 diphenhydrAMINE (BENADRYL) injection 25 mg (COMPLETED) 25 mg, Intravenous, ONCE, On Wed08/06/25 at 1155, For 1 dose 1240 ($Given - Provi sujit: Jen Bueno RN) metoclopramide (REGLAN) injection 10 mg (COMPLETED) 10 mg, Intravenous, Administer over 2 Minutes, ONCE, On Wed08/06/25 at 1155, For 1 dose, Avoid use if patient has full bowel obstruction or perforation. 1240 ($Given - Provi sujit: Jen Bueno RN) sodium chloride 0.9% BOLUS 1,000 mL (COMPLETED) Intravenous, 1,000 mL, ONCE, On Wed08/06/25 at 1155, For 1 dose 1239 ($New Bag - Pro vider: Jen Bueno RN) documented in this encounter Care Teams Waste/Materials Exchange Specialist Relationship Specialty Start Date End Date Sarah Juares MD PCP - General Family Medicine 03/13/25 08/06/25 Purvi Jeong RPH [address] [place] [address] [phone] Pharmacist Pharmacist Civil Preparedness Officer 01/03/25 Lucas Nuno MD [address] [place] [address] [phone] Assigned Surgical Provider 02/07/25 Meghan Cox RPH [address] [place] [address] [phone] Pharmacist Pharmacist Civil Preparedness Officer 03/20/25 documented as of this encounter
--- OUTSIDE RECORDS SUMMARY | 2025-08-06 11:24 | XMS_ITS | Encounter Summary ---
Author Organization [place] Address [address] [place] [address] Care Team Providers Care Chainstitch Binder Name Role Phone Sarah Juares MD Primary Care Provider Unav ailable Purvi Jeong [facility] Unavailable [phone] Lucas Nuno MD Unavailable [phone] Meghan Cox [facility] Unavailable [phone] Reason for Visit * Reason Comments Nausea & Vomiting Medication Refill Encounter Details Date Type Department Care Team (Late st Contact Info) Description 08/06/2025 11:24 AM CDT - 08/06/2025 1:39 PM T Emergency [facility] Emergency Dept [address] [place] [address] Art Starr MD [facility] [address] [place] [address] Nausea and vomiting, unspecified vomiting type (Primary Dx) Discharge Disposition: Home or Self Care Social History Tobacco Use Types Packs/Day Years Used Date Smoking Tobacco: Former Smokeless Tobacco: Never Alcohol Use Standard Drinks/Week Comments Not Currently 0 (1 standard drink = 0.6 oz pur e alcohol) rare PHQ-2 Answer Date Recorded PHQ-2 Score 0 02/22/2025 [place] Depression Scale Answer Date Recorded [place] Depression Score 1 07/06/2021 Last EPDS Self [...] in an abandoned building, in an overnight assisted, or couch-surfing.) Yes 03/21/2025 Are you worried [...] AM CDT 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 * Nausea and Vomiting (Setswana) documented in this encounter Medications at Time [...] 4 MG/0.1ML nasal sprayIndications: Acute post-operative pain [place] 1 spray (4 mg) into one nostril [...] episodes. She reports a recent hospitalization at [facility] following a blood clot and E. coli [...] Range Lipase 16 13 - 60 U/L [facility] Draw Status: None Narrative The following orders were created for panel order [facility] Draw. Procedure Abnormality Status --------- ------ Extra Blue Top Tube[[id number]] Final result Please view results for these [...] None Result Value Ref Range Hold Specimen [facility] CBC with Platelets and Differential (Limited Occurrences) Status: Abnormal Narrative The following orders were created for panel order CBC with Platelets and Differential (Limited Occurrences). Procedure Abnormality Status --------- ------ CBC with platelets and ...[[id number]] Abnormal Final result Please view results for [...] - 08/06/2025 1:12 PM CDT Pt informed administrative underwriter that school nurse called her to inform her that her son fell off playground and possibly broke nose. 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 Removed IV. Pt stated she would be back with son and would get results and have re-eval at that time. * Sandhya Anaya RN - 08/06/2025 11:09 AM CDT Patient reports concerns with ongoing E Coli. Reports ongoing N/V for about 3 weeks. Known blood clot in right arm, following with vascular at [facility]. On thinner. ABCs intact, A&Ox4 Reports leaving some medications in [facility]-asking about refills. Triage Assessment (Adult) Row Name [...] Blue Top Tube (08/06/2025 12:38 PM CDT) [facility] Hold Specimen [facility] 08/06/2025 2:09 PM CDT LABORATORY Blood STRUCTURE OF LEFT UPPER LIMB / Unknown Venipuncture / Unknown 08/06/2025 12:38 PM CDT 08/06/2025 12:54 PM CDT us Art Starr MD LAB - BLOOD ORDERABLES Fi nal Result LABORATORY [facility] Acute Care Lab [address] Lab (1st floor, no room number) [place] [address], [facility] * (ABNORMAL) CBC with platelets and differential [...] LAB - BLOOD ORDERABLES Fi nal Result [facility] Lab [address] (1st floor, no room number) [address] * Lipase (08/06/2025 12:38 PM CDT) Lipase 16 13 - 60 U/L 08/06/2025 1:22 PM CDT LABORATORY Blood STRUCTURE OF LEFT UPPER LIMB / Unknown Venipuncture / Unknown 08/06/2025 12:38 PM CDT 08/06/2025 12:54 PM CDT us Art Starr MD LAB - BLOOD ORDERABLES Fi nal Result [facility] Lab [address] Lab (1st floor, no room number) [address] * (ABNORMAL) Comprehensive Metabolic Panel (Limited [...] LAB - BLOOD ORDERABLES Fi nal Result [facility] Acute Care Lab [address] [facility] Lab (1st floor, no room number) [place] [address], [facility] documented in this encounter Visit Diagnoses Diagnosis [...] RN) documented in this encounter Care Teams Chainstitch Binder Relationship Specialty Start Date End Date Sarah Juares MD PCP - General Family Medicine 03/13/25 08/06/25 Purvi Jeong RPH [address] [place] [address] [phone] Pharmacist Pharmacist Salvage Engineer 01/03/25 Lucas Nuno MD [address] [place] [address] [phone] Assigned Surgical Provider 02/07/25 Meghan Cox RPH [address] [place] [address] [phone] Pharmacist Pharmacist Salvage Engineer 03/20/25 documented as of this encounter
--- OUTSIDE RECORDS SUMMARY | 2025-08-07 22:55 | XMS_ITS | Encounter Summary ---
Author Organization [place] Address [address] [place] [address] Care Team Providers Care Reports Developer Name Role Phone Sarah Juares MD Primary Care Provider Unav ailable Purvi Jeong [facility] Unavailable [phone] Lucas Nuno MD Unavailable [phone] Meghan Cox [facility] Unavailable [phone] Jose Tran MD Primary Care Provider [phone] Encounter Details Date Type Department Care Team (Late st Contact Info) Description 03/19/2025 MyC Medical Advice [facility] General Surgery Clinic [place] [id number] [facility] [address] 4[address] [place] [address] Lucas Nuno MD [address] [facility] [address] [place] [address] Social History Tobacco Use Types Packs/Day Years Used Date Smoking Tobacco: Former Smokeless Tobacco: Never Alcohol Use Standard Drinks/Week Comments Not Currently 0 (1 standard drink = 0.6 oz pur e alcohol) rare PHQ-2 Answer Date Recorded PHQ-2 Score 0 02/22/2025 [place] Depression Scale Answer Date Recorded [place] Depression Score 1 07/06/2021 Last EPDS Self [...] AM CDT 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 Gender Identity Female 06/03/2022 7:36 AM CDT Sexual Orientation Straight 06/03/2022 7: 36 AM CDT documented as of this encounter Plan of Treatment Not on file documented as of this encounter Visit Diagnoses Not on filedocumented in this encounter Care Teams Reports Developer Relationship Specialty Start Date End Date Sarah Juares MD PCP - General Family Medicine 03/13/25 08/06/25 [place] [address] [place] [address] PCP - General Family Medicine 08/07/25 Purvi Jeong RPH [address] [place] [phone] Pharmacist Pharmacist Falsework Builder 01/03/25 Lucas Nuno MD [address] [place] [phone] Assigned Surgical Provider 02/07/25 Meghan Cox RPH [address] [place] [phone] Pharmacist Pharmacist Falsework Builder 03/20/25 documented as of this encounter
--- OUTSIDE RECORDS SUMMARY | 2025-08-07 22:55 | XMS_ITS | Encounter Summary ---
Author Organization [place] Address [address] [place] [address] Care Team Providers Care Shop Foreman Name Role Phone Sarah Juares MD Primary Care Provider Unav ailable Purvi Jeong [facility] Unavailable [phone] Lucas Nuno MD Unavailable [phone] Meghan Cox [facility] Unavailable [phone] Jose Tran MD Primary Care Provider [phone] Encounter Details Date Type Department Care Team (Late st Contact Info) Description 03/14/2025 MyC Medical Advice [facility] General Surgery Clinic [place] [id number] [facility] [address] [place] [address] Lucas Nuno MD [address] [facility] [address] [place] [address] Social History Tobacco Use Types Packs/Day Years Used Date Smoking Tobacco: Former Smokeless Tobacco: Never Alcohol Use Standard Drinks/Week Comments Not Currently 0 (1 standard drink = 0.6 oz pur e alcohol) rare PHQ-2 Answer Date Recorded PHQ-2 Score 0 02/22/2025 [place] Depression Scale Answer Date Recorded [place] Depression Score 1 07/06/2021 Last EPDS Self [...] AM CDT 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 GIRL FRIDAY Gender Identity Female 06/03/2022 7:36 AM CDT Sexual Orientation Straight 06/03/2022 7: 36 AM CDT documented as of this encounter Plan of Treatment Not on file documented as of this encounter Visit Diagnoses Not on filedocumented in this encounter Care Teams Shop Foreman Relationship Specialty Start Date End Date Sarah Juares MD PCP - General Family Medicine 03/13/25 08/06/25 [place] [address] [place] [address] PCP - General Family Medicine 08/07/25 Purvi Jeong [facility] [address] [place] [phone] Pharmacist Pharmacist Health Equipment Servicer 01/03/25 Lucas Nuno MD [address] [place] [phone] Assigned Surgical Provider 02/07/25 Meghan Cox [facility] [address] [place] [phone] Pharmacist Pharmacist Health Equipment Servicer 03/20/25 documented as of this encounter
[2025-08-07 22:56] VITALS: BP 70/41; PULSE 78; RESP 18; TEMP 35.6; O2SAT 95; BMI 40.2
--- OUTSIDE RECORDS SUMMARY | 2025-08-07 22:56 | XMS_ITS | Encounter Summary ---
Author Organization [facility] Address [address] [place] [address] Care Team Providers Care Novelties Sales Representative Name Role Phone None, Pcp Primary Care Provider Unavailabl e Encounter Details Date Type Department Care Team (Latest Contact Info) Description 08/04/2025 Travel Social History Tobacco Use Types Packs/Day Years Used Date Smoking Tobacco: Every Day Cigarettes Smokeless Tobacco: Never Comments No Sex and Gender Information Value Date Recorded Sex Assigned at Not on file Legal Sex Female 12:42 PM CDT Gender Identity Not on file Sexual Orientation Not on file documented as of this encounter Plan of Treatment Not on file documented as of this encounter Visit Diagnoses Not on filedocumented in this encounter Care Teams Novelties Sales Representative Relationship Specialty Start Date End Date None, Pcp [address] [place] [address] PCP - General Calliope Player 08/04/25 documented as of this encounter
--- OUTSIDE RECORDS SUMMARY | 2025-08-07 22:56 | XMS_ITS | Clinical Summary ---
Author Organization [facility] er Address [address] [place] [address] Care Team Providers Care Surface Plate Inspector Name Role Phone None, Pcp Primary Care Provider Unavailabl e Allergies No known active allergies Medications oxyCODONE (ROXICODONE) 5 MG immediate release tablet Take 1 tablet (5 mg total) by mouth every 4 (four) hours if needed for moderate pain Active enoxaparin (LOVENOX) 150 MG/ML injection Inject 1 mL (150 mg total) under the skin 1 (one) time each day Active enoxaparin (LOVENOX) 150 MG/ML injectionIndica tions:Encounter for medication refill Inject 1 mL (150 mg total) under the skin every 12 (twelve) hours for 7 days 14 mL 08/04/2025 08/11/20 Active Active Problems Problem Noted Date Diagnosed Date Gastric reflux 08/04/2025 H/O gastric bypass 08/04/2025 Headache 08/04/2025 Malabsorption syndrome 08/04/2025 Metabolic syndrome 08/04/2025 Obesity (BMI 30-39.9) 08/04/2025 Restless leg 08/04/2025 Nausea & vomiting 07/26/2025 Macrocytic anemia 06/21/2025 Homocysteinemia 06/21/2025 TOMAS (generalized anxiety disorder) 06/21/2025 Gastroesophageal reflux disease 06/21/2025 Generalized abdominal pain 03/21/2025 Acute post-operative pain 03/21/2025 Acute superficial gastritis without hemorrhage 0 03/21/2025 Fever in adult 03/21/2025 Thrombophilia 03/16/2025 Eosinophilic esophagitis 11/15/2024 Obesity, class 2 11/15/2024 Elevated homocysteine 07/19/2024 Syncope and collapse 07/19/2024 Migraine headache 07/04/2024 Vasovagal syncope 07/04/2024 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 Morbid obesity 06/03/2022 Gastroesophageal reflux disease with esophagitis 10/23/2021 S/P laparoscopic sleeve gastrectomy 10/23/2021 Overview (08/04/2025): Sleeve 2016- [facility] Last Assessment & Plan: [...] labs and ultrasound Follow up 2-3 months Labor and delivery indication for care or interv ention 07/04/2021 Encounter for triage in patient 021 Constipation 04/03/2021 Grief 04/03/2021 Intermittent fever 04/03/2021 Dizzy spells 02/11/2021 Supervision of high risk , antepartum 0 01/15/2021 Electronic cigarette use 12/19/2020 Previous gastric bypass affe cting in first trimester, antepartum 12/19/2020 History of iron deficiency anemia 12/19/2020 Maternal mental disorder, antepartum 12/19/2020 Class 1 obesity due to exces s calories with body mass index (BMI) of 34.0 to 34.9 in adult 12/19/2020 Obesity complicating pregnan cy, childbirth, or puerperium, antepartum 12/19/2020 Anemia of 06/26/2019 Need for hepatitis B vaccination 12/12/2018 Cervical cancer screening 11/14/2018 Overview (08/04/2025): 11/14/2018 LSIL. Plan: Pap due 10/2019 CCS review: 05/2016: NILM 10/2018: LSIL (age 23) 12/2020: NILM Plan per ASCCP guidelines: repeat cytology in 12 months (12/2021) LGSIL of cervix of undetermined significance Overview (08/04/2025): 11/14/2018 LSIL. 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 Overview (08/04/2025): January 2009 with abdominal pain Encounters Date Type Department Care Team Description 08/04/2025 12:49 PM CDT - 08/04/2025 1:40 PM CDT Emergency [facility] Emergency Room [address] [place] [phone] Encounter for medication refill (Primary Dx) Discharge Disposition: Home or Self Care 08/04/2025 Travel from Last 3 Months Social History Tobacco [...] Mass Index 41.22 08/04/2025 12:51 PM CDT Plan of Treatment Health Maintenance Due Date Last Done Comments Pneumococcal Vaccine: Pediatrics (0 to 5 Years) and At-Risk Patients (6 to 49 Years) (1 of 2 - PCV) 2013 Pap Smear 12/20/2023 12/19/2020, 10/19, 08/08/2010 COVID-19 Vaccine ( season) 2025 06/26/2021, 05/27/2021 Influenza Vaccine (#1) 2025 07/20/2019 DTaP,Tdap,and Td Vaccines (6 - Td or Tdap) 05/14/2031 05/14/2021, 05/25/2019, 09/28/2016, Additional history exists HPV Vaccines Aged Out 08/31/2012, 06/08/2012 No lo nger eligible based on patient's age to complete this topic Insurance [facility] Care Teams Surface Plate Inspector Relationship Specialty Start Date End Date None, Pcp [address] [place] [address] PCP - General Hotbed Lever Operator 08/04/25
--- OUTSIDE RECORDS SUMMARY | 2025-08-07 22:56 | XMS_ITS | Clinical Summary ---
Author Organization [facility] Address [address] [place] [address] Care Team Providers Care Hospital Attendant Name Role Phone Elsewhere, Pcp Primary Care Provider Unavailabl e Source Comments Patient records contain information from all sites at [facility]. For routine questions regarding patient records, call [phone] during business hours, M-F 8:00 AM - 5:00 PM Central Time. Record requests for emergency care only can be directed to [phone] at any time.[facility] Allergies Active Allergy Reactions Criticality Noted Date [...] as needed for indigestion or heartburn. Active cyanocobalami n (Vitamin B-12) 1,000 mcg tablet Take 1 tablet by mouth daily. Active pantoprazole (Protonix) 40 mg EC tablet Take 1 tablet by mouth daily. 12/16/19 Active multivitamin tablet Take 1 tablet by mouth daily. Active ferrous sulfate 325 mg (65 mg iron) DR tablet Take 325 mg by mouth 3 (three) times a day. Active acetaminophen (TylenoL) 500 mg tablet Take 2 tablets (1,000 mg total) by mouth every 6 (six) hours. 07/04/20 Active oxyCODONE (Roxicodone) 5 mg immediate release tabletIndicat ions:Acute Pain Take 1 tablet (5 mg total) by mouth every 6 (six) hours as needed for pain for up to 6 doses Indication: Acute Pain. 6 tablet 08/04/20 Active folic acid 1 mg tablet Take 2 tablets (2 mg total) by mouth daily for 10 days. 20 tablet 08/04/20 25 Active enoxaparin (Lovenox) 120 mg/0.8 mL injection Inject 0.8 mL (120 mg total) under the skin 2 (two) times a day. 48 mL 08/07/20 Active albuterol (ProAir HFA) 90 mcg/actuation inhaler Inhale 2 puffs every 4 (four) hours as needed. 025 Discontinued( erapy completed) brimonidine 0.33 % gel with pump Apply topically. 02/06/20 025 Discontinued( erapy completed) ivermectin (Soolantra) 1 % cream creamIndicati ons:Rosacea Apply 1 Application topically daily. Apply to the entire face. 45 g 5 04/14/20 025 Discontinued(Th erapy completed) folic acid (Folvite) 5 mg/mL injection Inject 0.2 mL (1 mg total) under the skin daily for 2 days. 0.4 mL 07/05/20 025 Discontinued(Th erapy completed) prochlorperaz ine (Compazine) 5 mg tablet Take 1 tablet (5 mg total) by mouth every 6 (six) hours as needed for nausea or vomiting. 30 tablet 4 8:10 PM CDT 07/04/20 025 Discontinued(Th erapy completed) folic acid 1 mg tablet Take 2 tablets (2 mg total) by mouth daily. 60 tablet 4 8:10 PM CDT 07/04/20 24 025 Discontinued(Du plicate order) enoxaparin (Lovenox) 150 mg/mL injection Inject 150 mg under the skin 2 (two) times a day. 025 Discontinued oxyCODONE (Roxicodone) 5 mg immediate release tabletIndicat ions:Acute Pain Take 1 tablet (5 mg total) by mouth every 4 (four) hours as needed for pain Indication: Acute Pain. 15 tablet 5:00 PM CDT 08/03/20 025 Discontinued(Du plicate order) enoxaparin (Lovenox) 150 mg/mL injection Inject 0.8 mL (120 mg total) under the skin 2 (two) times a day. 08/06/20 025 Discontinued enoxaparin (Lovenox) 120 mg/0.8 mL injection Inject 0.8 mL (120 mg total) under the skin 2 (two) times a day. 48 mL 08/07/20 025 Discontinued(Re order) Active Problems Problem Noted Date Diagnosed Date Syncope Vasovagal 07/04/2024 Migraine Headache 07/04/2024 Other Pulmonary Embolism Without Acute Cor Pulmo nale 07/03/2024 Folate Deficiency Anemia Unspecified 07/03/2024 Multiple Subsegmental Thromb otic Pulmonary Embolism Without Acute Cor Pulmonale 07/01/2024 Encounters Date Type Department Care Team Description 08/04/2025 4:54 PM CDT - 08/04/2025 5:45 PM CDT Emergency [facility] [address] [place] [address] Valerio Bernardo, ELDA, C.N.P., D.N.P. Pain Wrist Right (Primary Dx); Medication Management Issue Discharge Disposition: Home or Self Care 08/04/2025 Nurse Triage Division of Community Internal Medicine, [facility], in [place], [place] [address] [place] [phone] Marylou Estes, R.N. Med Refill 08/03/2025 3:00 PM CDT Office Visit Department of Vascular Medicine in [place], [place] [address] [place] [phone] Hang Arrington M.D. Embolus Pulmonary Personal History (Primary Dx); Thrombophlebitis Superficial Upper Limb; Folate Deficiency Anemia Unspecified; Anemia B12 Deficiency; Anticoagulant Therapy 08/03/2025 2:35 PM CDT - 08/03/2025 11:59 PM CDT Hospital Encounter Department of Radiology, [facility] in [place], [place] [address] [place] [address] Hang Arrington M.D. Pain Chest Discharge Disposition: Home or Self Care 08/03/2025 2:30 PM CDT - 08/03/2025 2:34 PM CDT Hospital Encounter Department of Radiology, [facility] in [place], [place] [address] [place] [address] Hang Arrington M.D. Embolus Pulmonary (HCC); Anticoagulant Therapy Discharge Disposition: Home or Self Care 08/02/2025 Clinical Communication Department of Vascular Medicine in [address] [address] Hang Arrington M.D. 07/31/2025 Results Follow-Up Department of Vascular Medicine in [place], [place] [address] [place] [phone] Hang Arrington M.D. NM Lung Ventilation and Perfusion 07/20/2025 1:47 PM CDT - 07/20/2025 11:59 PM CDT Hospital Encounter Department of Radiology, [facility] in [place], [place] [address] [place] [address] Hang Arrington M.D. Pain Chest Discharge Disposition: Home or Self Care 07/19/2025 11:00 AM CDT Office Visit Department of Vascular Medicine in [place], [place] [address] [place] [address] Hang Arrington M.D. Pain Chest (Primary Dx); Dyspnea On Exertion; Embolus Pulmonary (HCC); Anticoagulant Therapy; Folate Deficiency Anemia Unspecified; Deficiency Vitamin B12 07/19/2025 9:00 AM CDT - 07/19/2025 11:59 PM CDT Hospital Encounter Department of Laboratory Medicine and Pathology, [facility] in [place], [place] [address] [place] [address] Hang Arrington M.D. Embolus Pulmonary (HCC); Anticoagulant Therapy; Deficiency Vitamin B12; Other Folate Deficiency Anemias Discharge Disposition: Home or Self Care 07/19/2025 Clinical Communication Department of Cardiovascular Medicine in [place], [place] [address] [place] [phone] Insurance Sales Manager Curtis M.D. 07/17/2025 Orders Only Department of Vascular Medicine in [place], [place] [address] [place] [phone] Hang Arrington M.D. 07/06/2025 4:30 PM CDT Virtual Visit Department of Vascular Medicine in [place], [place] [address] [place] [address] Hang Arrington M.D. Embolus Pulmonary (HCC) (Primary Dx); Anticoagulant Therapy; Deficiency Vitamin B12; Other Folate Deficiency Anemias 07/06/2025 10:40 AM CDT - 07/06/2025 11:59 PM CDT Hospital Encounter Department of Cardiovascular Diseases in [place], [place] [address] [place] [address] Hang Arrington M.D. Embolus Pulmonary (HCC); Palpitations; Hyperhomocysteinem ia (HCC); Anemia B12 Deficiency; Anticoagulant Therapy Discharge Disposition: Home or Self Care 07/06/2025 10:10 AM CDT - 07/06/2025 10:39 AM CDT Hospital Encounter Department of Laboratory Medicine and Pathology, [facility] in [place], [place] [address] [place] [phone] Hagn Arrington M.D. Embolus Pulmonary (HCC); Palpitations; Hyperhomocysteinem ia (HCC); Anemia B12 Deficiency; Anticoagulant Therapy Discharge Disposition: Home or Self Care 07/06/2025 8:30 AM CDT - 07/06/2025 9:44 AM CDT Hospital Encounter Department of Radiology, [facility] in [place], [place] [address] [place] [address] Hang Arrington M.D. Embolus Pulmonary (HCC) Discharge Disposition: Home or Self Care 07/02/2025 Clinical Communication Department of Vascular Medicine in [place], [place] [address] [place] [phone] Hang Arrington M.D. Phone Contact 06/29/2025 Orders Only Department of Vascular Medicine in [address] [phone] Hang Arrington M.D. Embolus Pulmonary (HCC) (Primary Dx) 06/28/2025 2:00 PM CDT Telemedicine Department of Vascular Medicine in [place], [place] [address] [place] [phone] Hang Arrington M.D. Embolus Pulmonary (HCC) (Primary Dx); Palpitations; Hyperhomocysteinem ia (HCC); Anemia B12 Deficiency; Anticoagulant Therapy 06/27/2025 Orders Only Department of Vascular Medicine in [place], [place] [address] [place] [phone] Hang Arrington M.D. 06/24/2025 Documentation Department of Vascular Medicine in [address] [phone] Hang Arrington M.D. from Last 3 Months Social History Tobacco Use Types Packs/Day Years Used Date Smoking Tobacco: Former Cigarettes 0 05/22/2014 - 10/14/2018 Passive Smoke Exposure: Current Smokeless Tobacco: Never Alcohol Use Standard Drinks/Week Comments Not Currently 3 (1 standard drink = 0.6 oz pure alcohol) Date nights maybe wednesday and wednesday [facility] [employer] Answer Date Recorded In the past 12 months has [facility] [employer], gas, oil, or water [employer] threatened to shut off services in your [...] your living situation today? 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 Gender Identity Not on file Sexual Orientation [...] (277 lb) 08/04/2025 3:42 PM CDT Height 176.2 cm (5' 9.37) 07/19/2025 10:40 AM C DT Body Mass Index 40.47 07/19/2025 10:40 AM CDT Plan of Treatment Health Maintenance [...] BILATERAL 08/03/2025 4:14 PM CDT Pain Chest US UPPER EXTREMITY VEINS BILATERAL RAD - Routine (most inpatients and all outpatients) 08/03/2025 4:14 PM CDT Embolus Pulmonary (HCC) Anticoagulant Therapy NM LUNG VENTILATION AND PERFUSION RAD - [...] Anticoagulant Therapy HOLTER MONITOR - IN CLINIC PROCESS MECHANIC Routine 07/08/2025 5:15 AM CDT Embolus Pulmonary [...] CDT from Last 3 Months Results * US Lower Extremity Veins Bilateral [...] Doppler analysis. COMPARISON: Outside ultrasound dated 06/21/2025; [facility] ultrasounds dated 10/12/2024 and 07/01/2024. FINDINGS: RIGHT: [...] and management can be found on the [employer] site. Link https://[email or web address]/topic/clinical-answers/cnt-93480038/cpm-204 69474 Procedure Note Paulina Liu M.D. - 08/03/2025 EXAM: US LOWER EXTREMITY VEINS BILATERAL Exam performed with color and spectral Doppler analysis. COMPARISON: Outside ultrasound dated 06/21/2025; [facility] ultrasoundsdated 10/12/2024 and 07/01/2024. FINDINGS: RIGHT: Common [...] thrombosis and management can be found on [employer] site. Linkhttps://[email or web address]/topic/clinical-answers/cnt-54569481/cpm -2049 1725 IMPRESSION: Negative for acute DVT within both lower extremities. us Hang Arrington M.D. IMTaj US PROCEDURES Final Resu lt * US Upper Extremity Veins Bilateral (08/03/2025 [...] and management can be found on the [employer] site. Link https://[email or web address]/topic/clinical-answers/cnt-27103470/cpm-204 13300 Procedure Note Paulina Liu M.D. - 08/03/2025 [...] thrombosis and management can be found on [employer] site. Linkhttps://[email or web address]/topic/clinical-answers/cnt-62194665/[facility] -2049 2161 IMPRESSION: 1. 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 2. 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 3. Negative for acute DVT within both upper extremities. Hang Arrington M.D. IMTaj US PROCEDURES Final Resu lt * NM [...] CDT) Ventricular Rate ECG/Min 63 BPM MUSE GA Interval 146 ms MUSE QRSD Interval 84 ms MUSE QT Interval 452 ms MUSE QTC Interval 463 ms MUSE P [place] 46 degrees MUSE R [place] 63 degrees MUSE T Wave [place] 14 degrees MUSE 07/20/2025 1:31 PM CDT [...] Final R esult Performing Organization Address City/[facility] Co de Phone Number [facility] [address] [place] [address] * (ABNORMAL) Folate (07/19/2025 9:36 AM CDT) Pathologist [facility] Folate, S 3.6(L) >=4.0 mcg/L 07/19/2025 11:14 AM CDT DTL Comment:Result suggests tina te deficiency Blood (Blood, Venous) 07/19/2025 9:36 AM CDT 07/19/2025 10:00 AM CDT Hang Arrington M.D. LAB BLOOD ADD-ON Final Resul t Performing Organization Address City/[facility]/ZIP Co de Phone Number [facility] [address] [place] [address] * (ABNORMAL) Vitamin B12 Assay (07/19/2025 9:36 AM CDT) Pathologist [facility] Vitamin B12 Assay, S 115(L) 180 - [...] M.D. LAB BLOOD ADD-ON Final Resul t [facility] [address] [place] [address], [facility] [address] [place] [address] * HOLTER MONITOR - IN CLINIC PROCESS MECHANIC (07/08/2025 5:15 AM CDT) Min Heart Rate [...] Duration 0 duration INFOBION IC MOME AF [place] 0 percent INFOBIONIC MOME Symptom Count 13 [...] these events, one PAC was seen singly. Artillery Or Naval Gunfire Observer: FELTON Ha Procedure Note Alcides Eng M.D., [...] these events, one PAC was seen singly. Artillery Or Naval Gunfire Observer: FELTON Ha Hang Arrington M.D. CV CARDIAC SERVICES PROCEDUR ES Final Result INFOTHALIANIC SIOBHAN NA * CT Chest Angiogram and [...] with Dr. Hang Arrington, pager [phone] or [phone] by Xochitl Amanda APRN at 10:03 am [...] with Dr. Hang Arrington, pager [phone] or [phone] Max Amanda APRN at 10:03 am on 07/06/2025. Hang Arrington M.D. IMG CT PROCEDURES Final Resu lt * ECHO TTE COMPLETE WO CONTRAST-Outside US Card (06/22/2025 12:00 AM CDT) 06/22/2025 11:4 3 AM CDT Addenda Addendum by [employer], Outside on 06/22/2025 11:43 AM CDT BELOW REPORT RECEIVED BY [facility] ON 07/25/2025 07:39:26 [id number] ECHOCARDIOGRAM KARO ALEMANSaulBRENDAN : 1995 30 years Study Date: 06/22/2025 7:36:23 AM Gender: F BP: 90/47 mmHg Height: 175.00 cm BSA: 2.35 m?? Weight: 123.00 kg Tech: NKM Referring MD: BRIAN SENA Site: [facility] Reading Location: [facility] Patient Location: Inpatient. Procedure: 2D, [...] . This study was interpreted by an [facility] accredited facility. Final READ BY Hesham Hough RELEASED BY ELLE Addendum by [employer], Outside on 06/22/2025 11:43 AM CDT BELOW REPORT RECEIVED BY [facility] ON 07/25/2025 07:38:47 [id number] ECHOCARDIOGRAM KARO WATSON : 1995 30 years Study Date: 06/22/2025 7:36:23 AM Gender: F BP: 90/47 mmHg Height: 175.00 cm BSA: 2.35 m?? Weight: 123.00 kg Tech: NITHIN Referring MD: BRIAN SENA Site: [facility] Reading Location: [facility] Patient Location: Inpatient. Procedure: 2D, Color Doppler, [...] . This study was interpreted by an [facility] accredited facility. Final READ BY Hesham Hough RELEASED BY ELLE Addendum by [employer], Outside on 06/22/2025 11:43 AM CDT BELOW REPORT RECEIVED BY [facility] ON 07/25/2025 07:37:28 [id number] ECHOCARDIOGRAM KARO WATSON : 1995 30 years Study Date: 06/22/2025 7:36:23 AM Gender: F BP: 90/47 mmHg Height: 175.00 cm BSA: 2.35 m?? Weight: 123.00 kg Tech: [facility] Referring MD: BRIAN SENA Site: [facility] Reading Location: [facility] Patient Location: Inpatient. Procedure: 2D, [...] . This study was interpreted by an [facility] accredited facility. Final READ BY Hesham [...] Not In System IMG NON RAD IMAGING PROCE KENROY Edited Result - Final IMAGING NA * Outside CT Body (06/21/2025 2:25 PM CDT) 06/21/2025 3:03 PM CDT Addenda Addendum by [employer], Outside on 06/21/2025 3:03 PM CDT BELOW REPORT RECEIVED BY [facility] ON 06/21/2025 15:23:15 [id number] For Patients: As a result of the [...] Michela Murray RELEASED BY CHU Addendum by [employer], Outside on 06/21/2025 3:03 PM CDT BELOW REPORT RECEIVED BY [facility] ON 06/21/2025 15:22:35 [id number] For Patients: As a result of the [...] Michela Murray RELEASED BY CHU Addendum by [employer], Outside on 06/21/2025 3:03 PM CDT BELOW REPORT RECEIVED BY [facility] ON 06/21/2025 15:21:34 [id number] For Patients: As a result of the [...] required please follow defined workflow. Procedure Note [employer], Outside - 06/21/2025 This order has been [...] 06/21/2025 3:13 PM CDT Addenda Addendum by [employer], Outside on 06/21/2025 3:13 PM CDT BELOW REPORT RECEIVED BY [facility] ON 06/21/2025 15:17:45 [id number] For Patients: As a result of the [...] Cristin Villarreal RELEASED BY ROGER Addendum by [employer], Outside on 06/21/2025 3:13 PM CDT BELOW REPORT RECEIVED BY [facility] ON 06/21/2025 15:17:14 [id number] For Patients: As a result of the [...] required please follow defined workflow. Procedure Note [employer], Outside - 06/21/2025 This order has been created and auto-finalized to support the import ofoutside images. If available, original interpretation can be found on theMedia Tab in Chart Review, in Document Viewer, as an image in [employer] as an Addendum. If a re-interpretation or overread is required please follow definedworkflow. us Provider Not In System IMG US PROCEDURES Edited Result - Final IMAGING NA from Last 3 Months Insurance [facility] Advance Directives For more information, please contact: [phone] * Full Code (Latest Code Status on File) Date Activated Date Inactivated Comments 07/01/2024 2:27 AM 07/04/2024 10:47 PM Question Answer Comments Full Code: Discussed Care Teams Hospital Attendant Relationship Specialty Start Date End Date Elsewhere, Pcp PCP - General Internal Medicine 04/12/24
--- OUTSIDE RECORDS SUMMARY | 2025-08-07 22:56 | XMS_ITS | Patient Health Record ---
Author Organization [facility] Address [address] [place] [address] Care Team Providers Care Sucker Machine Operator Name Role Phone None, None Primary Care Provider PAUL Carvajal [phone] Reason For Referral No Information Medications Medication [...] Date Coverage End Date BLUE CROSS OUT [facility] [address] [address] [place], [place] [id number] Karo Gallegos Self - patient is the insured Medical (General) History Surgical History Surgery Date(Month/Year) Gastric sleeve 10/13/2016
--- OUTSIDE RECORDS SUMMARY | 2025-08-07 22:56 | XMS_ITS | CCD ---
Author Name Interface, [id number] Address [address] [place] [address] [address] [address] Organization [facility] Address [address] [facility] [address] [place] [address] Care Team Providers Care Plasterer Helper Name Role Phone Enzo Garg MD Unavailable [...]
--- OUTSIDE RECORDS SUMMARY | 2025-08-07 22:56 | XMS_ITS | Encounter Summary ---
Author Organization [facility] Address [address] [place] [address] Care Team Providers Care Pencil Maker Name Role Phone Elsewhere, Pcp Primary Care Provider Unavailabl e Reason for Visit * Reason Onset Date Comments Med Refill 08/04/2025 Encounter Details Date Type Department Care Team (Late st Contact Info) Description 08/04/2025 Nurse Triage Division of Community Internal Medicine, [facility] in [place], [place] [address] [place] [address] Marylou Estes, R.N. Med Refill Social History Tobacco Use Types Packs/Day Years Used Date Smoking Tobacco: Former Cigarettes 0 05/22/2014 - 10/14/2018 Passive Smoke Exposure: Current Smokeless Tobacco: Never Alcohol Use Standard Drinks/Week Comments Not Currently 3 (1 standard drink = 0.6 oz pure alcohol) Date nights maybe wednesday and wednesday [facility] Utilities Answer Date Recorded In the past 12 months has [employer], gas, oil, or water [employer] threatened to shut off services in your [...] your living situation today? 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 - 08/04/2025 4:57 AM CDT Chief Complaint / Reason for Call Patient is a 30 y.o. female calling regarding Med Refill. Assessment Concern: superficial clot in arm, Clinic visit 08/03/2025 Dr Hang Arrington Vascular internal med treating patient. Patient left medication accidentally at hotel and it was discarded. Wondering if can get a refill Present for: current Home cares tried: Calling to request: advice/refill The recommended disposition is Contact a health care provider within 30 minutes. 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
--- OUTSIDE RECORDS SUMMARY | 2025-08-07 22:56 | XMS_ITS | Encounter Summary ---
Author Organization [facility] Address [address] [place] [address] Care Team Providers Care Bottom Precipitator Operator Name Role Phone Elsewhere, Pcp Primary Care Provider Unavailabl e Encounter Details Date Type Department Care Team (Late st Contact Info) Description 08/02/2025 Clinical Communication Department of Vascular Medicine in [place], [place] [address] [place] [phone] Hang Arrington M.D. [address] [place] [phone] Social History Tobacco Use Types Packs/Day Years Used Date Smoking Tobacco: Former Cigarettes 0 05/22/2014 - 10/14/2018 Passive Smoke Exposure: Current Smokeless Tobacco: Never Alcohol Use Standard Drinks/Week Comments Not Currently 3 (1 standard drink = 0.6 oz pure alcohol) Date nights maybe wednesday and wednesday [facility] Utilities Answer Date Recorded In the past 12 months has [employer], gas, oil, or water [employer] threatened to shut off services in your [...] your living situation today? 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 Her left arm was givingher a lot of pain. She would like a call. [phone] documented in this encounter Plan of Treatment Not on file documented as of this encounter Visit Diagnoses Not on filedocumented in this encounter Care Teams Bottom Precipitator Operator Relationship Specialty Start Date End Date Elsewhere, Pcp PCP - General Internal Medicine 04/12/24 documented as of this encounter
--- OUTSIDE RECORDS SUMMARY | 2025-08-07 22:57 | XMS_ITS | Encounter Summary ---
Author Organization [facility] Address [address] [place] [address] Care Team Providers Care Assembler Motor Vehicle Name Role Phone Elsewhere, Pcp Primary Care Provider Unavailabl e Reason for Referral * MRI/CAT/PET Scan (Routine) - Closed Specialty Diagnoses / Procedures Referred By Contac t Referred To Contact Radiology Diagnoses Embolus Pulmonary (HCC) Procedures CT Chest Angiogram and Pulmonary Arteries with IV Contrast Hang Arrington M.D. [address] [place] [address] Phone: tel: fax: [facility] Referral ID Status Reason Start Date Expiration Date Visits Re quested Visits Authorized [id number] Closed 07/05/2025 10/02/2025 1 1 Encounter Details Date Type Department Care Team (Late st Contact Info) Description 06/29/2025 Orders Only Department of Vascular Medicine in [place], [place] [address] [place] [phone] Hang Arrington M.D. [address] [place] [phone] Embolus Pulmonary (HCC) (Primary Dx) Social History Tobacco Use Types Packs/Day Years Used Date Smoking Tobacco: Former Cigarettes 0 05/22/2014 - 10/14/2018 Passive Smoke Exposure: Current Smokeless Tobacco: Never Alcohol Use Standard Drinks/Week Comments Not Currently 3 (1 standard drink = 0.6 oz pure alcohol) Date nights maybe wednesday and wednesday [facility] Utilities Answer Date Recorded In the [...] your living situation today? 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 Hang Arrington, pager [phone] or [phone] by Xochitl Amanda APRN at 10:03 am [...] Findings discussed with Dr. Hang Arrington, pager [phone] or [phone] Max Amanda APRN at 10:03 am on 07/06/2025. Hang Arrington M.D. IMG CT PROCEDURES Final Resu lt documented in this encounter Visit Diagnoses Diagnosis Embolus Pulmonary (HCC)- Primary Embolus Pulmonary (HCC) documented in this encounter Care Teams Assembler Motor Vehicle Relationship Specialty Start Date End Date Elsewhere, Pcp PCP - General Internal Medicine 04/12/24 documented as of this encounter
--- OUTSIDE RECORDS SUMMARY | 2025-08-07 22:57 | XMS_ITS | Encounter Summary ---
Author Organization [facility] Address [address] [place] [address] Care Team Providers Care Jailer Chief Name Role Phone Elsewhere, Pcp Primary Care Provider Unavailabl e Encounter Details Date Type Department Care Team (Latest Contact Info) Description 07/19/2025 Clinical Communication Department of Cardiovascular Medicine in [place], [place] [address] [place] [phone] Lapel PadderCurtis M.D. 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 Date: 06/22/2025 Date/timeframe records needed by: -Prior to CV appt Notification of records received: -No notification needed (provider will review at time of appt) * Telephone Encounter - Emily Maravilla - 07/19/2025 11:25 AM CDT Vas # [id number] documented in this encounter Plan of Treatment Not on file documented as of this encounter Visit Diagnoses Not on filedocumented in this encounter Care Teams Jailer Chief Relationship Specialty Start Date End Date Elsewhere, Pcp PCP - General Internal Medicine 04/12/24 documented as of this encounter
--- OUTSIDE RECORDS SUMMARY | 2025-08-07 22:57 | XMS_ITS | Encounter Summary ---
Author Organization [facility] Address [address] [place] [address] Care Team Providers Care Core Stacker Name Role Phone Elsewhere, Pcp Primary Care Provider Unavailabl e Reason for Referral * Outpatient (Routine) - Closed Specialty Diagnoses / Procedures Referred By Contac t Referred To Contact Vascular Medicine Hang Arrington M.D. [address] [place] [phone] Phone: tel: fax: [facility] Referral ID Status Reason Start Date Expiration Date Visits Re quested Visits Authorized [id number] Closed 06/27/2025 12/27/2026 1 1 Scheduling Instructions 2:00 p.m. 06/28/2025 with me in thrombophilia Clinic Encounter Details Date Type Department Care Team (Late st Contact Info) Description 06/27/2025 Orders Only Department of Vascular Medicine in [place], [place] [address] [place] [phone] Hang Arrington M.D. [address] [place] [phone] Social History Tobacco Use Types Packs/Day Years Used Date Smoking Tobacco: Former Cigarettes 0 05/22/2014 - 10/14/2018 Passive Smoke Exposure: Current Smokeless Tobacco: Never Alcohol Use Standard Drinks/Week Comments Not Currently 3 (1 standard drink = 0.6 oz pure alcohol) Date nights maybe wednesday and wednesday [facility] Utilities Answer Date Recorded In the [...] your living situation today? 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
--- OUTSIDE RECORDS SUMMARY | 2025-08-07 22:57 | XMS_ITS | Encounter Summary ---
Author Organization [facility] Address [address] [place] [address] Care Team Providers Care Screen Printing Machine Loader Unloader Name Role Phone Elsewhere, Pcp Primary Care Provider Unavailabl e Reason for Referral * Outpatient (Routine) - Closed Specialty Diagnoses / Procedures Referred By Contac t Referred To Contact Vascular Medicine Hang Arrington M.D. [address] [place] [phone] Phone: tel: fax: [facility] Referral ID Status Reason Start Date Expiration Date Visits Re quested Visits Authorized [id number] Closed 07/17/2025 01/16/2027 1 1 Scheduling Instructions Request 11:00 a.m. appointment on 07/19/2025 Encounter Details Date Type Department Care Team (Late st Contact Info) Description 07/17/2025 Orders Only Department of Vascular Medicine in [place], [place] [address] [place] [phone] Hang Arrington M.D. [address] [place] [phone] Social History Tobacco Use Types Packs/Day Years Used Date Smoking Tobacco: Former Cigarettes 0 05/22/2014 - 10/14/2018 Passive Smoke Exposure: Current Smokeless Tobacco: Never Alcohol Use Standard Drinks/Week Comments Not Currently 3 (1 standard drink = 0.6 oz pure alcohol) Date nights maybe wednesday and wednesday [facility] Utilities Answer Date Recorded In the [...] money to buy more. Never true 07/03/20 Within the past 12 months, t he [...] your living situation today? 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
--- OUTSIDE RECORDS SUMMARY | 2025-08-07 22:57 | XMS_ITS | Encounter Summary ---
Author Organization [facility] Address [address] [place] [address] Care Team Providers Care Technical Administrative Assistant Name Role Phone Elsewhere, Pcp Primary Care Provider Unavailabl e Reason for Visit * Reason Onset Date Comments Phone Contact 07/02/2025 Encounter Details Date Type Department Care Team (Late st Contact Info) Description 07/02/2025 Clinical Communication Department of Vascular Medicine in [place], [place] [address] [place] [phone] Hang Arrington M.D. [address] [place] [phone] Phone Contact Social History Tobacco Use Types Packs/Day Years Used Date Smoking Tobacco: Former Cigarettes 0 05/22/2014 - 10/14/2018 Passive Smoke Exposure: Current Smokeless Tobacco: Never Alcohol Use Standard Drinks/Week Comments Not Currently 3 (1 standard drink = 0.6 oz pure alcohol) Date nights maybe wednesday and wednesday [facility] Utilities Answer Date Recorded In the past 12 months has [employer], gas, oil, or water [employer] threatened to shut off services in your [...] your living situation today? 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
--- OUTSIDE RECORDS SUMMARY | 2025-08-07 22:57 | XMS_ITS | Encounter Summary ---
Author Organization [facility] Address [address] [place] [phone] Care Team Providers Care Braille Transcriber Name Role Phone Elsewhere, Pcp Primary Care Provider Unavailabl e Encounter Details Date Type Department Care Team (Late st Contact Info) Description 06/24/2025 Documentation Department of Vascular Medicine in [place], [place] [address] [place] [phone] Hang Arrington M.D. [address] [place] [phone] Social History Tobacco Use Types Packs/Day Years Used Date Smoking Tobacco: Former Cigarettes 0 05/22/2014 - 10/14/2018 Passive Smoke Exposure: Current Smokeless Tobacco: Never Alcohol Use Standard Drinks/Week Comments Not Currently 3 (1 standard drink = 0.6 oz pure alcohol) Date nights maybe wednesday and wednesday [facility] Utilities Answer Date Recorded In the past 12 months has [employer], gas, oil, or water [facility] threatened to shut off services in your [...] your living situation today? 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 - 06/24/2025 9:57 AM CDT This past I received a call from local emergency room in [place] regarding Ms. El Live She had presented [...] on filedocumented in this encounter Care Teams Braille Transcriber Relationship Specialty Start Date End Date Elsewhere, Pcp PCP - General Internal Medicine 04/12/24 documented as of this encounter
--- OUTSIDE RECORDS SUMMARY | 2025-08-07 22:59 | XMS_ITS ---
Author Name Interface, X6Zlstaua lity Address [address] [facility] [address] [address] Organization [facility] Address [address] [facility] [address] [address] Support Name Relationship Address Phone FREEDOM ALEMAN [...] 1 HR 07/07/2023 APPOINTMENT CHART CHECK 5 SD N 07/05/[address] [facility] LOW UP 20 MIN 07/05/2023 [...] 10.0 130.0 5.80 Low FINAL Enzo Garg [facility], [facility] [address] [id number] 0 Phone: () - 07/05 Iron profi le TIBC ug/dL 250.0 425.0 410 FINAL Enzo Garg [facility], [address] [id number] 0 Phone: () - 07/05 Iron profi le Iron ug/dL 50.0 175.0 43 Low FINAL Enzo Garg [facility], [address] [facility] [address] [id number] 0 Phone: () - 07/05 Iron profi le Unbou nd iron capac ity ug/dL 75.0 410.0 367 FINAL Enzo Garg [place] [address] [id number] 0 Phone: () - 07/05 Iron profi le Iron, % satur ation % 20.0 55.0 10 Low FINAL Enzo Garg [facility], [address] [id number] 0 Phone: () - 07/05 CBC w/ auto diff WBC K/uL 3.0 8.9 7.1 FINAL [facility] [place], [address] [place] [phone] 0 Phone: () - 07/05 CBC w/ auto diff HGB g/dL 11.3 15.2 11.5 FINAL [facility] [place], [address] [place] [phone] 0 Phone: () - 07/05 CBC w/ auto diff PLT K/uL 113.0 364.0 302 FINAL [facility] [place], [address] [place] [phone] 0 Phone: () - 07/05 CBC w/ auto diff Fly # (ANC) K/uL 1.6 6.6 4.5 FINAL [facility] [place], [address] [place] [phone] 0 Phone: () - 07/05 CBC w/ auto diff Fly % % 43.0 74.0 62.6 FINAL [facility] [place], [address] [place] [phone] 0 Phone: () - 07/05 CBC w/ auto diff IG % % 0.0 0.5 0.3 FINAL [facility] [place], [address] [place] [id number] 0 Phone: () - 07/05 CBC w/ auto diff IG # K/uL 0.0 0.03 0.02 FINAL [facility] [place], [address] [place] [phone] 0 Phone: () - 07/05 CBC w/ auto diff LY % % 14.0 41.0 29.7 FINAL [facility] [place], [address] [place] [phone] 0 Phone: () - 07/05 CBC w/ auto diff MO % % 6.0 15.0 5.9 Low FINAL [facility] [place], [address] [place] [id number] 0 Phone: () - 07/05 CBC w/ auto diff EO % % 0.0 7.0 1.4 FINAL [facility] [place], [address] [place] [phone] 0 Phone: () - 07/05 CBC w/ auto diff BA % % 0.0 2.0 0.1 FINAL [facility] [place], [address] [place] [phone] 0 Phone: () - 07/05 CBC w/ auto diff LY # K/uL 0.4 3.6 2.1 FINAL [facility] [place], [address] [place] [phone] 0 Phone: () - 07/05 CBC w/ auto diff MO # K/uL 0.2 1.3 0.4 FINAL [facility] [place], [address] [place] [phone] 0 Phone: () - 07/05 CBC w/ auto diff EO # K/uL 0.0 0.6 0.1 FINAL [facility] [place], [address] [place] [phone] 0 Phone: () - 07/05 CBC w/ auto diff BA # K/uL 0.0 0.2 0.0 FINAL [facility] [place], [address] [place] [phone] 0 Phone: () - 07/05 CBC w/ auto diff NRBC % #/100W BC 0.0 0.2 0.0 FINAL [facility] [place], [address] [place] [phone] 0 Phone: () - 07/05 CBC w/ auto diff RBC M/uL 3.9 5.1 3.81 Low FINAL [facility] [place], [address] [place] [phone] 0 Phone: () - 07/05 CBC w/ auto diff HCT % 35.0 48.0 35.8 FINAL [facility] [place], [address] [place] [phone] 0 Phone: () - 07/05 CBC w/ auto diff MCV fL 80.0 104.0 94.0 FINAL [facility] [place], [address] [place] [phone] 0 Phone: () - 07/05 CBC w/ auto diff MCH pg 26.0 35.0 30.2 FINAL [facility] [place], [address] [place] [phone] 0 Phone: () - 07/05 CBC w/ auto diff MCHC g/dL 30.0 35.0 32.1 FINAL [facility] [place], [address] [place] [phone] 0 Phone: () - 07/05 CBC w/ auto diff MPV fL 9.5 13.4 9.1 Low FINAL [facility] [place], [address] [place] [phone] 0 Phone: () - 07/05 CBC w/ auto diff RDW % 11.4 16.1 15.70 FINAL [facility] [place], [address] [place] [phone] 0 Phone: () - 01/19 [facility] other lab See instrument repair supervisor d 02/17 [facility] other lab See instrument repair supervisor d 03/14 [facility] other lab See instrument repair supervisor d 03/27 [facility] other lab See attache patel 04/02 [facility] other lab See attache patel 04/06 [facility] other lab See attache patel [...] Onc Consult <html><head></head><body><div style=text-align:center><span style=font- size:9px></span><span style=font-size:12px><span style=font-family:Crowheart,Helvetica,sans-serif><span class=clinicalNote MacroHighlighted id=[id number] macroname=PracticeLetterhead&quot ; spantype=macro title=#PracticeLetterhead><img yknxap=704 src=live/fileDownload?type=1&jypxGcvfgztywaEf=[id number] iwgvk=126> </span></span></span>
</div><span style=font-size:12px"><span style=font-family:Crowheart,Helvetica,sans-serif>
<strong>Patient Name: </strong><span class=clinicalNoteMacroHighlighted id=&quo t;[id number] macroname=PatientName spantype=macro title=&q uot;#PatientName>KALEB ALEMAN CARDONA</span>
<strong>MRN: &lt ;/strong><span class=clinicalNoteMacroHighlighted id=[id number]& quot; macroname=PatientMRN spantype=macro title=#PatientMRN>[id number]</span>
<strong>Date of : </strong><span class=&qu ot;clinicalNoteMacroHighlighted id=[id number] macroname=Patient DateOfBirth spantype=macro title=#PatientDateOfBirth>1995< /span>
<strong>Date of Service: </strong><span class=clini calNoteMacroHighlighted id=[id number] macroname=EffectiveDate&qu ot; spantype=macro title=#EffectiveDate>07/05/2023</span></span& gt;</span>
<strong>Attending Physician: </strong><span class=clinicalNoteMacroHighlighted id=[id number] macroname= AttendingPhysician spantype=macro title=#AttendingPhysician>Enzo Garg (Hematology/Oncology)</span>
<strong>Referring Physician:</strong&g t; <span class=clinicalNoteMacroHighlighted id=[id number]& quot; macroname=ReferringPhysician spantype=macro title=#ReferringPhys ician> </span>

<div style=text-align:center><span style=font-size:12px><span style=font-family:Crowheart,Helvetica,sans- serif><strong>INITIAL HEMATOLOGY/MEDICAL ONCOLOGY CONSULTATIO N</strong></span></span>

</div><span style=font-size:12px><span style=font-family:Crowheart,Helvetica,sans-serif><span style=font- size:12px><span style=font-family:Crowheart,Helvetica,sans-serif&g t;</span></span><span class=clinicalNoteSectionShowSeparators clinicalNoteSecti onVisible id=[id number] internalbreaksection=false origi [...] to continue oral iron

<span style=font-size:12px&quo t;><span style=font-family:Crowheart,Helvetica,sans-serif><span class=clin icalNoteSectionShowSeparators clinicalNoteSectionVisible id=[id number]" internalbreaksection=false originalname=Advanced Care [...] pain planindicated for today's visit</span><span style=font-size:12px><span st yle=font-family:Crowheart,Helvetica,sans-serif>
<span style=font-size:1 2px><span style=font-family:Crowheart,Helvetica,sans-serif><span style=&qu ot;font-size:12px><span style=font-family:Crowheart,Helvetica,sans-serif><span style=font-size:12px><span style=font-family:Crowheart,Helvetica,sans-serif ><span style=font-family:Crowheart><span class=clinicalNoteSectionShowSeparators clinicalNoteSectionVisible id=[id number] internalbreaks ection=false originalname=Smoking Status recognizeconcepts=true spantype=section suppressempty=true>Smoking Status</span>
Smoking Status: <span class=clinicalNoteMacroHighlighted id=[id number] macroname=PatientSmokingStatus parameters=ValueIfNull:Not recor ded. spantype=macro title=#PatientSmokingStatus(ValueIfNull:Not recorded.)&q uot;>Smoking Tobacco : Former smoker, stopped smokin; Smokeless Tobacco : Never used smokeless tobacco; Vaping : Current vape user</span></span></span></span></spa n></span></span></span></span></span>

<span style=font-size:12px><span style=font-family:Crowheart,Helvetica,sans-serif><span style=font- size:12px><span style=font-family:Crowheart,Helvetica,sans-serif><span class=clinicalNoteSectionShowSeparators clinicalNoteSectionVisible" id=[id number] internalbreaksection=false originalname=&q uot;History of [...] History of Present Illness.
<span style=font-size:12px><span style=&q uot;font-family:Crowheart,Helvetica,sans-serif><span class=clinicalNoteSectionShowSeparators clinicalNoteSectionVisible id=[id number] internalbreaksection=false originalname=Past Medical History recognizeconcepts=true spantype=section suppressempty=false>Past Medical and Surgical History&l t;/span></span></span>
History of iron deficiency anemia

<span style=font-size:12px><span style=font-family:Crowheart,Helvetica,sans-s erif><span class=clinicalNoteSectionShowSeparators clinicalNoteSectionVisible" id=[id number] internalbreaksection=false originalname=Current Medications [...] Subcutaneous)</td> <td width=40%>07/05/2023</td> </tr> </tbody></table></span></span></span>
<span style=font-size:12px><span style=font-family:Crowheart,Helvetica,sans-serif><span class=&quo t;clinicalNoteSectionShowSeparators clinicalNoteSectionVisible id=[id number] internalbreaksection=false originalname=Allergies recognizeconcepts=true spantype=section suppressempty=false>Allergies</span>
<span class=clinicalNoteMacroHighlighted id=[id number] macroname=AllergyTable spantype=macro title=#AllergyTable"><table border=1 style=width:100%> <tbody> <tr> <td colspan=4>Current Allergy List</td> </tr> <tr> <td width="100px>Allergy Name</td> <td qqbsf=393gt>Severity</td> <td rzzvq=367nd>Status</td> <td flwcq=980km>Recording Date</td> </tr> <tr> <td lztrz=576br>NSAIDS (Non- Steroidal Anti-Inflammatory Drug)</td> <td efmyp=029qg>
</td> <td ifivh=520ou>Active</td> <td cquyr=772px>07/05/2023</td> </tr> <tr> <td fkcjw=080jf>Zithromax</td> <td bwler=019va>
</td> <td fnptv=851rh>Active</td> <td dfxvh=497wo">07/05/2023</td> </tr> </tbody></table></span></span></span>
<span style=font-size:12px><span style=font-family:Crowheart,Helvetica,sans-serif><span class=clinicalNoteSectionShowSeparators clinicalNoteSectionVisible id=[id number] internalbreaksection=false originalname=Family History recognizeconcepts=true spantype=section" suppressempty=false>Family History</span></span></span>
Maternal grandmother had DVT/PE, but this was in the setting of malignancy

<span style=font-size:12px><span style=font-family:Crowheart,Helvetica,sans- serif><span class=clinicalNoteSectionShowSeparators clinicalNoteSectionVisible" id=[id number] internalbreaksection=false originalname="Social History recognizeconcepts=true spantype=section suppressempty=true>Social History</span></span></span>
Has 2 children, ages 4 and 2. Former smoker, quit in 2016. No significant alcohol use.

<span style=font-size:12px><span style=font-family:Crowheart,Helvetica,sans- serif><span class=clinicalNoteSectionShowSeparators clinicalNoteSectionV isible id=[id number] internalbreaksection=false original name=Vital Signs and Pain Scale recognizeconcepts=true spantype=section suppressempty=false>Vital Signs</span>
<span class=cl inicalNoteMacroHighlighted id=[id number] macroname=PatientVita lSigns parameters=LookBackDays:1 spantype=macro title=#PatientVi talSigns(LookBackDays:1)>Blood pressure: 152/86, Pulse: 93, Temperature: 96 F, Respirations: 16, O2 sat: 99%, Pain Scale: 0, Height: 68.75 in, Weight: 297.2 lb, BSA: 2.44, BMI: 44.21 kg/m2</span></span></span>
<span style=font-size:12px><spanstyle=font-family:Crowheart,Helvetica,sans-serif><span style=font-size:12px"><span style=font-family:Crowheart,Helvetica,sans-serif>Immunizations: <span cl ass=clinicalNoteMacroHighlighted id=[id number] macroname=I mmunizations parameters=ValueIfNull:Not [...] <td>
</td> <td>
</td> </tr> </tbody></table></span>
<span class=clinicalNoteMacroHighdecatur county hospitaled id=[id number] macroname=RecentLabResultsTable parameters=OptionalFlowsheetCategory:Chemistries,Label:Chemistries spantype=macro title=#RecentLabResultsTable(Option alFlowsheetCategory:Chemistries,Label:Chemistries)></span>
<span class=&q uot;clinicalNoteMacrGAighdecatur county hospitaled id=[id number] macroname=RecentL abResultsTable parameters=OptionalFlowsheetCategory:Tumor Markers,Label:Tumor Markers" spantype=macro title=#RecentLabResultsTable(OptionalFlowsheetCategory:Tumor Ma rkers,Label:Tumor Markers)></span>
<span class=clinicalNoteMacroHig hlighted id=[id number] macroname=RecentLabResultsTable para meters=OptionalFlowsheetCategory:Anemia Labs,Label:Anemia Results spantype=macro" title=#RecentLabResultsTable(OptionalFlowsheetCategory:Anemia Labs,Label:Anemia Results)"></span></span></span>

<span class=clinicalNot eSectionShowSeparators clinicalNoteSectionVisible id=[id number] internalbreaksection=false originalname=Surveys/Consents/Other Discussions recognizeconcepts=true spantype=section suppressempty=true>Surveys/Consents/Other Discussions</span>

<hr><span style="font-size:12px><span style=font-family:Crowheart,Helvetica,sans-serif>
Thank you for allowing me to see [...]
--- OUTSIDE RECORDS SUMMARY | 2025-08-07 22:59 | XMS_ITS | Encounter Summary ---
Author Organization [place] Address [facility] [place] [address] Care Team Providers Care Project Estimator Name Role Phone [facility], [facility] [place] Primary Care Provider Leatha Wagner APRN [facility] Unavailable +[phone] Mariana Acosta PA-C Unavailable + [phone] Sarah Juares MD Primary Care Provider Unav ailable Lucas Nuno MD Unavailable +- Mariana Acosta-C Unavailable +[phone] Lucas Nuno MD Unavailable + Mariana Acosta PA-C Unavailable +[phone] Purvi Jeong [facility] Unavailable [phone] Lucas Nuno MD Unavailable + Meghan Cox [facility] Unavailable [phone] Jose Tran MD Primary Care Provider + [phone] Encounter Details Date Type Department Care Team (Late st Contact Info) Description 12/10/2021 [facility] [address] [place] [address] Paulina Denny, ELIZABETH Social History Tobacco Use Types Packs/Day Years Used Date Smoking Tobacco: Former Smokeless Tobacco: Never Alcohol Use Standard Drinks/Week Comments Not Currently 0 (1 standard drink = 0.6 oz pur e alcohol) Fowler Depression Scale Answer Date Recorded Fowler Depression Score 1 07/06/2021 Last EPDS Self Harm Result Not on file 07/06 Comments No Sex and Gender Information Value Date Recorded Sex Assigned at Female 06/03/2022 7:36 AM CDT 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 Gender Identity Female 06/03/2022 7:36 AM [...] documented as of this encounter Care Teams Project Estimator Relationship Specialty Start Date End Date [facility], [facility] [place] [address] PCP - General 01/02/14 03/23/23 Sarah Juares MD [address] [place] [address] PCP - General Family Medicine 03/13/25 08/06/25 [place] [address] [place] [address] PCP - General Family Medicine 08/07/25 Leatha Wagner APRN WELDING ENGINEER [address] [place] [address]35 Assigned Surgical Provider 11/02/21 09/04/22 Mariana Acosta PA-C [address] [address] Assigned Surgical Provider 09/05/22 12/09/23 Lucas Nuno MD [address] [address] Assigned Surgical Provider 12/10/23 01/07/24 Mariana Acosta PA-C [address] [address] Assigned Surgical Provider 01/08/24 03/08/24 Lucas Nuno MD [address] [address] Assigned Surgical Provider 03/09/24 12/09/24 Mariana Acosta PA-C [address] [address] Assigned Surgical Provider 12/10/24 02/06/25 Purvi Jeong [facility] [address] [place] [address] Pharmacist Pharmacist Piano Player 01/03/25 Lucas Nuno MD [address] [address] Assigned Surgical Provider 02/07/25 Meghan Cox [facility] [address] [place] [address] Pharmacist Pharmacist Piano Player 03/20/25 documented as of this encounter
--- OUTSIDE RECORDS SUMMARY | 2025-08-07 22:59 | XMS_ITS | Encounter Summary ---
Author Organization [place] Address [facility] [place] [address] Care Team Providers Care Telegraphic Typewriter Repairer Name Role Phone [facility], [facility] [place] Primary Care Provider Leatha Wagner APRN [facility] Unavailable [phone] Mariana Acosta PA-C Unavailable + [phone] Sarah Juares MD Primary Care Provider Unav ailable Lucas Nuno MD Unavailable +- Mariana Acosta-C Unavailable [phone] Lucas Nuno MD Unavailable + Mariana Acosta PA-C Unavailable +[phone] Purvi Jeong [facility] Unavailable [phone] Lucas Nuno MD Unavailable + Meghan Cox [facility] Unavailable [phone] Jose Tran MD Primary Care Provider + [phone] Encounter Details Date Type Department Care Team (Late st Contact Info) Description 10/23/2021 [facility] [address] [place] [address] Leatha Wagner APRN LINE REPAIRER [address] [place] [address] Epigastric pain (Primary Dx); Gastroesophageal reflux disease with esophagitis, unspecified whether hemorrhage; RUQ abdominal pain Social History Tobacco Use Types Packs/Day Years Used Date Smoking Tobacco: Former Smokeless Tobacco: Never Alcohol Use Standard Drinks/Week Comments Not Currently 0 (1 standard drink = 0.6 oz pur e alcohol) [place] Depression Scale Answer Date Recorded [place] Depression Score 1 07/06/2021 Last EPDS Self Harm Result Not on file 07/06 Comments No Sex and Gender Information Value Date Recorded Sex Assigned at Female 06/03/2022 7:36 AM CDT 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 [address] [place] [address] PCP - General 01/02/14 03/23/23 Sarah Juares MD [address] [facility] [address] [place] [address] PCP - General Family Medicine 03/13/25 08/06/25 [place] [address] [place] [address] PCP - General Family Medicine 08/07/25 Leatha Wagner APRN LINE REPAIRER [address] [place] [address] Assigned Surgical Provider 11/02/21 09/04/22 Mariana Acosta PA-C [address] [address] Assigned Surgical Provider 09/05/22 12/09/23 Lucas Nuno MD [address] 502985 Assigned Surgical Provider 12/10/23 01/07/24 Mariana Acosta PA-C [address] [address] Assigned Surgical Provider 01/08/24 03/08/24 Lucas Nuno MD [address] [address] Assigned Surgical Provider 03/09/24 12/09/24 Mariana Acosta PA-C [address] [address] Assigned Surgical Provider 12/10/24 02/06/25 Purvi Jeong Melody [address] [place], [place] [address] Pharmacist Pharmacist Shale Miner 01/03/25 Lucas Nuno MD [address] [address] Assigned Surgical Provider 02/07/25 Meghan Cox RPH [address] [place] [address] Pharmacist Pharmacist Shale Miner 03/20/25 documented as of this encounter
--- OUTSIDE RECORDS SUMMARY | 2025-08-07 22:59 | XMS_ITS | Encounter Summary ---
Author Organization [place] Address [facility] [place] [address] Care Team Providers Care Meat Carver Name Role Phone [facility], [facility] [place] Primary Care Provider Leatha Wagner APRN [facility] Unavailable [phone] Mariana Acosta PA-C Unavailable + [phone] Sarah Juares MD Primary Care Provider Unav ailable Lucas Nuno MD Unavailable +- Mariana Acosta-C Unavailable [phone] Lucas Nuno MD Unavailable + Mariana Acosta PA-C Unavailable [phone] Purvi Jeong [facility] Unavailable [phone] Lucas Nuno MD Unavailable +- Meghan Cox [facility] Unavailable [phone] Jose Tran MD Primary Care Provider + [phone] Encounter Details Date Type Department Care Team (Late st Contact Info) Description 10/22/2021 [facility] [address] [place] [address] Luis Alberto Mastersoncy Social History Tobacco Use Types Packs/Day Years Used Date Smoking Tobacco: Former Smokeless Tobacco: Never Alcohol Use Standard Drinks/Week Comments Not Currently 0 (1 standard drink = 0.6 oz pur e alcohol) [employer] Depression Scale Answer Date Recorded [employer] Depression Score 1 07/06/2021 Last EPDS Self Harm Result Not on file 07/06 Comments No Sex and Gender Information Value Date Recorded Sex Assigned at Female 06/03/2022 7:36 AM CDT 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 Gender Identity Female 06/03/2022 7:36 AM CDT [...] documented as of this encounter Care Teams Meat Carver Relationship Specialty Start Date End Date [facility], [facility] [place] [address] PCP - General 01/02/14 03/23/23 Sarah Juares MD [address] [place] [address] PCP - General Family Medicine 03/13/25 08/06/25 [place] [address] [place] [address] PCP - General Family Medicine 08/07/25 Leatha Wagner APRN SEAT TRIMMER [address] [place] [address] 639615 Assigned Surgical Provider 11/02/21 09/04/22 Mariana Acosta PA-C [address] [address] Assigned Surgical Provider 09/05/22 12/09/23 Lucas Nuno MD [address] [address] Assigned Surgical Provider 12/10/23 01/07/24 Mariana Acosta PA-C [address] [address] Assigned Surgical Provider 01/08/24 03/08/24 Lucas Nuno MD [address] [address] Assigned Surgical Provider 03/09/24 12/09/24 Mariana Acosta PA-C [address] [address] Assigned Surgical Provider 12/10/24 02/06/25 Purvi Jeong [facility] [address] [place] [address] Pharmacist Pharmacist Operations Staff Specialist Security 01/03/25 Lucas Nuno MD [address] [address] Assigned Surgical Provider 02/07/25 Meghan Cox [facility] [address] [place] [address] Pharmacist Pharmacist Operations Staff Specialist Security 03/20/25 documented as of this encounter
--- OUTSIDE RECORDS SUMMARY | 2025-08-07 22:59 | XMS_ITS | Clinical Summary ---
Author Organization [facility] Address [address] [facility] [place] [address] Care Team Providers Care Business Analytics Specialist Name Role Phone Mariluz Diamond MD Primary Care Provider Unavailab le Source Comments You are receiving this document as you are listed as the primary care provider,follow-up provider, or the patient has been referred to you for consultation.This is in compliance with the Medicare and[facility] EHR Incentive Program,which states Providers who transition their patient to another setting of careor provider of care or refers their patient to another provider of care shouldprovide summary care record for each transition of care or referral. [facility] Active Allergy Reactions Criticality Noted Date [...] (12/27/2020): 11/14/2018 LSIL. Plan: Pap due 10/2019 [facility] review: 05/2016: NILM 10/2018: LSIL (age 23) [...] contact Iwona Cordero, [employer] Specialist, at [phone]. 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 Overview (12/01/2018): January 2009 with abdominal pain Immunizations Immunization Administration Dates Next Due 4vHPV (Gardasil) 08/31/2012,06/08/2012 DTP 02/26/1999 HepB Ped/Adol (0-18 yrs) 10/14/2006,06/09/2006 Influenza IIV4 (Quadrivalent ) 0.5mL (52727) 07/20/2019,12/01/2018 Influenza, Unspecified Formulation 07/20/2019 MMR 02/26/1999,11/12/1995 [...] AG/AB 4TH GEN Routine 12/19/2020 9:24 AM SITE LEADER Screening examination for venereal disease CYTOLOGY (PAP) Routine 12/19/2020 9:23 AM SITE LEADER Screening for malignant neoplasm of cervix from Last 3 Months or Most Recently Relevant to Health Maintenance Results * Hepatitis C Antibody, with Reflex (05/22/2021 2:15 PM CDT) Hepatitis C Antibody Negative (Non Reactive) Negative (Non Reactive) 05/22/2021 7:29 PM CDT [facility] Comment:Antibodies to HCV no t detected. Does not exclude the possiblity of exposure to HCV. Blood Venipuncture / Unknown 05/22/2021 2:15 PM CDT 05/22/2021 2:15 PM CDT us Olivia Galvan MD LAB_1 Final Result [facility] [address] * HIV 1/2 Ag/Ab 4th Generation (12/19/2020 9:24 AM SITE LEADER) HIV 1/2 Antigen/Antib chad (4th generation) Negative (Non Reactive) Negative (Non Reactive) 12/19/2020 1:00 PM SITE LEADER [facility] Comment:HIV-1 p24 Antigen an d HIV-1/HIV-2 Antibody not detected Blood Venipuncture / Unknown 12/19/2020 9:24 AM SITE LEADER 12/19/2020 9:24 AM SITE LEADER us Xochitl Beard APRN, HALLIE LAB_1 Final R esult [facility] [address] [employer] [address] * PAP Test (12/19/2020 9:23 AM SITE LEADER) Case Report Pap Case: [id number] Authorizing Provider: Xochitl Beard APRN, CNP Collected: 12/19/2020 0923 Ordering Location: [facility] Received: 12/19/2020 0939 Services[employer] First Screen: Mariluz Loza CT (ASCP) Specimen: Pap Test, Diagnostic, Cervix/Endocervix 12/23/2020 4:03 PM SITE LEADER [facility] Pap Specimen Adequacy Satisfactory for evaluation, endocervical/simental sformation zone component present. 12/23/2020 4:03 PM SITE LEADER [facility] Pap Interpretation Negative for intraepithelial lesion or malignancy (NILM). 12/23/2020 4:03 PM SITE LEADER [facility] at 1603 SITE LEADER Pap Disclaimer The Pap test is a screening test designed to aid in the detection of cervical cancer and its precursor lesions. It is not a diagnostic procedure and should not be used as the sole means of detecting cervical cancer. Both false-positive and false-negative results may occur. 12/23/2020 4:03 PM SITE LEADER [facility] Gross Description The specimen is received in SurePath fixative and properly labeled. 1 Pap-stained SurePath slide is prepared. 12/23/2020 4:03 PM SITE LEADER [facility] Embedded Images 4:03 PM SITE LEADER [facility] Other Specimen Type ENTIRE ENDOCERVIX / Unknown 12/19/2020 9:23 AM SITE LEADER 12/19/2020 9:39 AM SITE LEADER Comment:LMP: Patient's last menstrual period was 10/23/2020 (exact date). Xochitl Beard APRN, SECURITIES TRADER LAB PATHOLOGY Final R esult [facility] [address] [place] [address], [facility] from Last 3 Months or Most Recently Relevant to Health Maintenance Insurance [facility] Care Teams Business Analytics Specialist Relationship Specialty Start Date End Date Mariluz Diamond MD PCP - General Family Practice 11/25/18
--- OUTSIDE RECORDS SUMMARY | 2025-08-07 22:59 | XMS_ITS | Encounter Summary ---
Author Organization [facility] Address [facility] [place] [address] Care Team Providers Care Apartment Groundskeeper Name Role Phone [facility] [place] Primary Care Provider Leatha Wagner APRN [facility] Unavailable [phone] Mariana Acosta PA-C Unavailable + [phone] Sarah Juares MD Primary Care Provider Unav ailable Lucas Nuno MD Unavailable +- Mariana Acosta-C Unavailable +[phone] Lucas Nuno MD Unavailable + Mariana Acosta PA-C Unavailable [phone] Purvi Jeong [facility] Unavailable Lucas Nuno MD Unavailable +- Meghan Cox [facility] Unavailable [phone] Jose Tran MD Primary Care Provider + [phone] Encounter Details Date Type Department Care Team (Late st Contact Info) Description 12/08/2021 [facility] [address] [place] [address] Rita Gillespie, EMT Social History Tobacco Use Types Packs/Day Years Used Date Smoking Tobacco: Former Smokeless Tobacco: Never Alcohol Use Standard Drinks/Week Comments Not Currently 0 (1 standard drink = 0.6 oz pur e alcohol) Trosper Depression Scale Answer Date Recorded Trosper Depression Score 1 07/06/2021 Last EPDS Self Harm Result Not on file 07/06 Comments No Sex and Gender Information Value Date Recorded Sex Assigned at Female 06/03/2022 7:36 AM CDT 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 Gender Identity Female 06/03/2022 7:36 AM [...] documented as of this encounter Care Teams Apartment Groundskeeper Relationship Specialty Start Date End Date [facility], [facility] [address] [place] [address] PCP - General 01/02/14 03/23/23 Sarah Juares MD [address] [place] [address] PCP - General Family Medicine 03/13/25 08/06/25 [place] [address] [place] [address] PCP - General Family Medicine 08/07/25 Leatha Wagner APRN CUTTING TABLE OPERATOR [address] [place] [address] [id number] Assigned Surgical Provider 11/02/21 09/04/22 Mariana Acosta PA-C [address] [address] Assigned Surgical Provider 09/05/22 12/09/23 Lucas Nuno MD [address] [address] Assigned Surgical Provider 12/10/23 01/07/24 Mariana Acosta PA-C [address] [address] Assigned Surgical Provider 01/08/24 03/08/24 Lucas Nuno MD [address] [address] Assigned Surgical Provider 03/09/24 12/09/24 Mariana Acosta PA-C [address] [address] Assigned Surgical Provider 12/10/24 02/06/25 Purvi Jeong [facility] [address] [place] [address] Pharmacist Pharmacist Merchandise Flow Associate 01/03/25 Lucas Nuno MD [address] [address] Assigned Surgical Provider 02/07/25 Meghan Cox [facility] [address] [place] [id number] Pharmacist Pharmacist Merchandise Flow Associate 03/20/25 documented as of this encounter
--- OUTSIDE RECORDS SUMMARY | 2025-08-07 22:59 | XMS_ITS | Clinical Summary ---
Author Organization [employer] [facility] Address [facility] [place] [address] Care Team Providers Care Die Keeper Name Role Phone Pamela Jara WOOL AND PELT GRADER Unavailable [phone] Paulina Mcgregor RN Unavailable [phone] Jose Tran MD Primary Care Provider [phone] Allergies Active Allergy Reactions Criticality Noted Date [...] tongue two times daily. 15 Tablet Active cyanocobalamin (VITAMIN B12) 1,000 mcg tablet Take 1,000 mcg by mouth once daily. Active enoxaparin (LOVENOX) 150 mg/mL injectionIndicati ons:Pulmonary embolism, unspecified chronicity, unspecified pulmonary embolism type, unspecified whether acute cor pulmonale present (HC) Inject 125 mg subcutaneous every 12 hours. 20 mL 025 Active oxyCODONE (ROXICODONE) 5 mg immediate release tabletIndications :Thrombophlebitis of right arm,Pulmonary embolism, bilateral (HC) Take 1 Tablet (5 mg) by mouth every 4 hours if needed for Pain. 15 Tablet 025 Active OLANzapine (ZYPREXA) 2.5 mg tabletIndications :Nausea and vomiting, unspecified vomiting type Take 1 Tablet (2.5 mg) by mouth every 8 hours if needed (nausea). 10 Tablet 025 Active enoxaparin (LOVENOX) 150 mg/mL injectionIndicati ons:Pulmonary embolism, unspecified chronicity, unspecified pulmonary embolism type, unspecified whether acute cor pulmonale present (HC) Inject 150 mg subcutaneous every 12 hours for 14 days. 28 mL 06/25/20 25 11:21 AM CDT 025 2024 HYDROcodone-aceta minophen (5-325 mg/tablet)Indicat ions:Pulmonary embolism, unspecified chronicity, unspecified pulmonary embolism type, unspecified whether acute cor pulmonale present (HC) Take 1-2 Tablets by mouth 4 times daily if needed for Pain. Max acetaminophen dose: 4000 mg in 24 hrs. 15 Tablet 06/25/20 25 11:21 AM CDT 2024 Discontinued(R eorder (E-cancel [...] 4000 mg in 24 hrs. 15 Tablet 2024 Discontinued(* Allergic/Adver se Rxn/Side Effects) enoxaparin (LOVENOX) 150 mg/mL injectionIndicati ons:Pulmonary embolism, unspecified chronicity, unspecified pulmonary embolism type, unspecified whether acute cor pulmonale present (HC) Inject 150 mg subcutaneous every 12 hours. 20 mL 2024 Discontinued OLANzapine (ZYPREXA) 2.5 mg tabletIndications :Nausea and vomiting, unspecified vomiting type Take 1 Tablet (2.5 mg) by mouth every 8 hours if needed (nausea) for up to 10 doses. 10 Tablet 025 2024 Discontinued(R eorder (E-cancel not sent)) cephalexin 500 mg capsuleIndication s:UTI (urinary tract infection), uncomplicated Take 1 Capsule (500 mg) by mouth two times daily for 7 days. 14 Capsule 025 2024 cyanocobalamin (VITAMIN B12) 1,000 mcg/mL injectionIndicati ons:B12 deficiency,Macroc ytic anemia Inject 1 mL (1,000 mcg) intramuscular one time for 1 dose. 1 mL 025 2024 Hospital, Clinic, or Other Facility Administered Medication Ordered Dose Route Frequency Start Date End Date Status cyanocobalamin (VITAMIN B12) 1,000 mcg/mL injection 1,000 mcgIndications:B12 deficiency 1000 mcg IM Q 2 WEEKS 07/03/2025 6 Active cyanocobalamin (VITAMIN B12) 1,000 mcg/mL injection 1,000 mcgIndications:B12 deficiency 1000 mcg IM Q 4 WEEKS (28 DAYS) 03/17/2025 Discontinued Active Problems Patient Care Coordination No te Formatting of this note migh t be different from the original. 10/13/2016 LSG 273 (5'8; 41.61) Hugo Problem Noted Date [...] Encounters Date Type Department Care Team Description 08/02/2025 11:07 AM CDT - 08/02/2025 11:17 AM CDT Emergency [facility] [place] [address] [place] [address] Therese Herman, JUANITA Discharge Disposition: Home Self Care 07/31/2025 4:00 PM CDT Telemedicine [facility] [address] [place] [address] Jose Tran MD Medication Management (Pain and anxiety) 07/31/2025 Travel 07/26/2025 11:34 AM CDT - 07/27/2025 11:17 AM CDT Hospital Encounter [address] [address] Brooks Vidal MD Hospitalists, [facility] Zeynep Feliz MD [place], Vidu Bala, MBBS Nausea and vomiting, unspecified vomiting type (Primary Dx); Pulmonary embolism, unspecified chronicity, unspecified pulmonary embolism type, unspecified whether acute cor pulmonale present (HC) Discharge Disposition: Home Self Care 07/25/2025 5:35 PM CDT - 07/25/2025 10:56 PM CDT Emergency [address] [address] Amari Myrick MD Nausea and vomiting, unspecified vomiting type (Primary Dx); Hematuria, unspecified type; Anxiety; Retained tampon, initial encounter Discharge Disposition: Home Self Care 07/25/2025 Travel 07/20/2025 Refill [facility] [place] [address] [place] [address] Jose Tran MD Refill Request (doxycycline monohydrate 100 mg capsule /tiZANidine (ZANAFLEX) 4 mg tablet /HYDROcodone-acetam inophen (5-325 mg/tablet) /Levonox 150mg/) 07/20/2025 Refill [facility] [place] [address] [place] [address] Jose Tran MD Refill Request (Tizanidine) 07/16/2025 4:51 PM CDT - 07/16/2025 7:48 PM CDT Emergency [address] [address] Laurent Zuniga MD Syncope, unspecified syncope type (Primary Dx); Pleuritic chest pain Discharge Disposition: Home Self Care 07/16/2025 Travel 07/02/2025 11:40 AM CDT Telemedicine [facility] [place] [address] [place] [address] Jose Tran MD Medication Management 07/02/2025 Travel 06/26/2025 Patient Outreach [facility] [address] [facility] [address] Lizzette Stark, ELIZABETH Primary RN Care Management; Hospital F/U (Pulmonary Embolism, DOD: 06/25/25, LACE+: 45) 06/21/2025 11:21 AM CDT - 06/25/2025 2:14 PM CDT Hospital Encounter [address] [address] Brooks Vidal MD Hospitalists, [facility] Brian Mosqueda MD Samimian, Pezhman, MD Pulmonary embolism, unspecified chronicity, unspecified pulmonary embolism type, unspecified whether acute cor pulmonale present (HC) (Primary Dx); B12 deficiency; Muscle spasm Discharge Disposition: Home Self Care 06/21/2025 Travel 06/15/2025 5:20 PM CDT - 06/15/2025 6:05 PM CDT Emergency [facility] [place] [address] [address] 06/05/2025 12:20 PM CDT Telemedicine [facility] [place] [address] [place] [address] Sarah Juares MD Weight (Insurance no longer covers Zepbound, and patient would like to discuss other options); Telehealth; Chest Pain (Follow up [place] emergency room visit recently) 06/05/2025 Travel 05/25/2025 [...] on file Legal Sex Female 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 Gender Identity Not on file Sexual Orientation [...] 08/16/2025 1:00 PM CDT Nurse/Clinic Staff Only [facility] [address] [place] [address] [place] [address] 09/14/2025 1:00 PM CAR DUMPER Nurse/Clinic Staff Only [facility] [address] [place] [address] 10/16/2025 1:00 PM CAR DUMPER Nurse/Clinic Staff Only [facility] [address] [place] [address] 11/16/2025 1:00 PM CAR DUMPER Nurse/Clinic Staff Only [facility] [address] [place] [address] 12/14/2025 1:00 PM CAR DUMPER Nurse/Clinic Staff Only [facility] [address] [place] [address] 01/11/2026 1:00 PM CDT Nurse/Clinic Staff Only [facility] [address] [place] [address] 02/12/2026 1:00 PM CDT Nurse/Clinic Staff Only [facility] [address] [place] [address] 03/14/2026 1:00 PM CDT Nurse/Clinic Staff Only [facility] [address] [place] [address] Health Maintenance Due Date Last Done Comments [...] this topic Medical Devices Implanted Type Area Powder Hand Device Identifier Shelf Expiration Date Model / Serial / Lot Mesh Ventral 60 Seamguard [place] Flex - [id number] Implanted:Qty: 1 on 10/13/2016 by Rajat Arias MD at [facility] N/A: Stomach W L [place] 01/15/2019 [id number] / / [id number] Mesh Ventral 60 Seamguard [place] Flex - [id number] Implanted:Qty: 3 on 10/13/2016 by Rajat Arias MD at [facility] N/A: Stomach W L [place] 07/17/2019 [id number] / / [id number] Mesh Ventral 60 Seamguard [place] Flex - [id number] Implanted:Qty: 1 on 10/13/2016 by Rajat Arias MD at [facility] N/A: Stomach W L [place] 12/15/2018 [id number] / / [id number] Procedures Procedure Name Priority Date/Time Associated Diagnosis [...] 12 LEAD STAT 06/21/2025 11:07 AM CDT 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 11/14/2018 3:00 PM CAR 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 Uses contraception from Last 3 Months or Most Recently Relevant to Health Maintenance Results * ALT (SGPT) (07/27/2025 6:48 AM CDT) ALT (SGPT) 21 10 - 35 IU/L 07/27/2025 7:48 AM CDT [facility] Blood BLOOD SPECIMEN / Unknown Butterfly / Unknown 07/27/2025 6:48 AM CDT 07/27/2025 7:25 AM CDT us Zeynep Feliz MD CHEMISTRY Final Res ult [facility] [address] [place] [id number] * AST (SGOT) (07/27/2025 6:48 AM CDT) AST (SGOT) 34 10 - 35 IU/L 07/27/2025 7:48 AM CDT [facility] Blood BLOOD SPECIMEN / Unknown Butterfly / Unknown 07/27/2025 6:48 AM CDT 07/27/2025 7:25 AM CDT us Zeynep Feliz MD CHEMISTRY Final Res ult Performing Organization Address City/[facility]/ZIP Co de Phone Number [address] [address] * (ABNORMAL) HEMOGLOBIN (07/27/2025 5:29 AM CDT) Only the most recent of6 resultswithin the time period is included. HEMOGLOBIN 9.8(L) 12.0 - 16.0 g/dL 07/27/2025 6:05 AM CDT [facility] MCV 109(H) 80 - 100 fL 07/27/2025 6:05 AM CDT [facility] Blood BLOOD SPECIMEN / Unknown Venipuncture / Unknown 07/27/2025 5:29 AM CDT 07/27/2025 5:58 AM CDT us Zeynep Feliz MD HEMATOLOGY Final Res ult Performing Organization Address City/[facility]/ZIP Co de Phone Number [address] [address] * DRUG SCREEN RAPID URINE INHOUSE (07/27/2025 4:22 AM CDT) THC METABOLITES,RICHA L Not Detected Not Detected 07/27/2025 10:00 AM CDT [facility] PCP,QUAL Not Detected Not Detected 07/27/2025 10:00 AM CDT [facility] COCAINE,QUAL Not Detected Not Detected 07/27/20 10:00 AM CDT [facility] METHAMPHETAMINE , QUALITATIVE Not Detected Not Detected 07/27/2025 10:00 AM CDT [facility] OPIATES,QUAL Not Detected Not Detected 07/27/20 10:00 AM CDT [facility] AMPHETAMINE, QUALITATIVE Not Detected Not Detected 07/27/2025 10:00 AM CDT [facility] BENZODIAZEPINES ,QUAL Not Detected Not Detected 07/27/2025 10:00 AM CDT [facility] TRICYCLICS,QUAL Not Detected Not Detected 07/27 10:00 AM CDT [facility] METHADONE, QUALITATIVE Not Detected Not Detected 07/27/2025 10:00 AM CDT [facility] BARBITURATES,QU AL Not Detected Not Detected 07/27/2025 10:00 AM CDT [facility] OXYCODONE, QUALITATIVE Not Detected Not Detected 07/27/2025 10:00 AM CDT [facility] BUPRENORPHINE, QUALITATIVE Not Detected Not Detected 07/27/2025 10:00 AM T [facility] Urine URINE SPECIMEN / Unknown Non-Blood / Unknown 07/27/2025 4:22 AM CDT 07/27/2025 4:27 AM CDT Narrative [facility] - 07/27/2025 10:00 AM [...] URINE Final Res ult Performing Organization Address [facility] de Phone Number [address] [address] * (ABNORMAL) URINALYSIS MICROSCOPIC (07/27/2025 4:22 AM CDT) Only the most recent of2 resultswithin the time period is included. RBC 0-2 0-2, None Seen /HPF 07/27/2025 4:45 AM CDT [facility] WBC 11-25(A) 0-2, 3-5, None Seen /HPF 07/27/2025 4:45 AM CDT [facility] BACTERIA Rare None Seen, Rare, Few Bacteria/ HPF 07/27/2025 4:45 AM CDT [facility] EPITHELIAL CELLS Few None Seen, Few Epi/HPF 07/27/2025 4:45 AM CDT [facility] Mucus Present 07/27/2025 4:45 AM CDT [facility] WHITE CELL CLUMPS Present(A) (none) 07/27/2025 4:45 AM CDT [facility] Urine URINE SPECIMEN / Unknown Non-Blood / Unknown 07/27/2025 4:22 AM CDT 07/27/2025 4:27 AM CDT us Zeynep Feliz MD URINE Final Res ult Performing Organization Address [facility] Co de Phone Number [address] [address] * (ABNORMAL) URINE CULTURE (07/27/2025 4:22 AM CDT) CULTURE RESULT(A) 07/29/2025 8:01 AM CDT [facility] CULTURE <10,000 CFU/mL Escherichia coli 07/29/2025 8:01 AM CDT [facility] CULTURE <10,000 CFU/mL Multiple organisms probable contaminants 07/29/2025 8:01 AM CDT [facility] Urine URINE SPECIMEN / Unknown Non-Blood / Unknown 07/27/2025 4:22 AM CDT 07/27/2025 4:27 AM CDT Lorene Shanks NP MICROBIOLOGY Final Result [facility] [address] [place] [address], [place] * (ABNORMAL) UA W/ SEDIMENT EXAM REFLEXED PER CRITERIA (07/27/2025 4:22 AM CDT) Only the most recent of2 resultswithin the time period is included. COLOR Yellow Yellow Color 07/27/2025 4:33 AM CDT [facility] CLARITY Clear Clear Clarity 07/27/2025 4:33 AM T [facility] SPECIFIC GRAVITY,URINE >=1.030(A) 1.010, 1.015, 1.020, 1.025 07/27/2025 4:33 AM T [facility] PH,URINE 5.5 6.0, 7.0, 8.0, 5.5, 6.5, 7.5, 8.5 07/27/2025 4:33 AM T [facility] UROBILINOGEN,QU ALITATIVE Normal Normal EU/dl 07/27/2025 4:33 AM M [facility] PROTEIN, URINE Negative Negative mg/dL 07/27/2025 4:33 AM T [facility] GLUCOSE, URINE Negative Negative mg/dL 07/27/2025 4:33 AM T [facility] KETONES,URINE Negative Negative mg/dL 07/27/2025 4:33 AM T [facility] BILIRUBIN,URINE Abnormal(A) Negative 07/27/20 4:33 AM T [facility] Comment:A variety of metabol ites and/or medications may result in a positive bilirubin result. Clinical correlation is recommended. OCCULT BLOOD,URINE Moderate(A) Negative 07/27/2025 4:33 AM T [facility] NITRITE Negative Negative 07/27/2025 4:33 AM T [facility] LEUKOCYTE ESTERASE Negative Negative 07/27/2025 4:33 AM CDT [facility] Urine URINE SPECIMEN / Unknown Non-Blood / Unknown 07/27/2025 4:22 AM CDT 07/27/2025 4:27 AM CDT us Zeynep Feliz MD URINE Final Res ult Performing Organization Address City/[facility] Co de Phone Number [facility] [address] [place] [address] * EKG 12 LEAD (07/26/2025 12:17 PM CDT) Only the most recent of6 resultswithin the time period is included. Pathologist [facility] Interpretation Normal sinus rhythm T wave abnormality, consider anterior ischemia Prolonged QT Abnormal ECG BEYOND NOW Ventricular Rate 67 BPM BEYOND NOW Atrial Rate 67 BPM BEYOND NOW P-R Interval 142 ms BEYOND NOW QRS Duration 82 ms BEYOND NOW QT 436 ms BEYOND NOW QTc 460 ms BEYOND NOW P Wilbur 25 degrees BEYOND NOW R Wilbur 59 degrees BEYOND NOW T Wilbur 14 degrees BEYOND NOW 07/26/2025 12:1 7 PM CDT 07/29/2025 10:42 PM CDT us Brooks Vidal MD EKG ORD Final R esult Performing Organization Address [facility] Co de Phone Number BEYOND NOW [place], [place] * (ABNORMAL) CBC WITH AUTO DIFFERENTIAL (07/26/2025 11:49 AM CDT) Only the most recent of4 resultswithin the time period is included. WHITE BLOOD COUNT 5.9 4.5 - 11.0 thou/cu mm 07/26/2025 12:39 PM CDT [facility] RED BLOOD COUNT 3.26(L) 4.00 - 5.20 mil/cu mm 07/26/2025 12:39 PM CDT [facility] HEMOGLOBIN 11.8(L) 12.0 - 16.0 g/dL 07/26/2025 12:39 PM CDT [facility] HEMATOCRIT 34.1 33.0 - 51.0 % 07/26/2025 12:39 PM CDT [facility] MCV 105(H) 80 - 100 fL 07/26/2025 12:39 PM CDT [facility] MCH 36.2(H) 26.0 - 34.0 pg 07/26/2025 12:39 PM CDT [facility] MCHC 34.6 32.0 - 36.0 g/dL 07/26/2025 12:39 PM CDT [facility] RDW 15.0 11.5 - 15.5 % 07/26/2025 12:39 PM CDT [facility] PLATELET COUNT 231 140 - 440 thou/cu mm 07/26/2025 12:39 PM CDT [facility] MPV 10.0 6.5 - 11.0 fL 07/26/2025 12:39 PM CDT [facility] NRBC 0.0 % 07/26/2025 12:39 PM CDT [facility] ABS NRBC 0.0 thou /cu mm 07/26/2025 12:39 PM CDT [facility] % NEUT 69.0 % 07/26/2025 12:39 PM CDT [facility] % LYMPH 21.4 % 07/26/2025 12:39 PM CDT [facility] % MONO 6.6 % 07/26/2025 12:39 PM CDT [facility] % EOS 2.4 % 07/26/2025 12:39 PM CDT [facility] % BASO 0.3 % 07/26/2025 12:39 PM CDT [facility] % IMMATURE GRAN (METAS,MYELOS,IA OS) 0.3 % 07/26/2025 12:39 PM CDT [facility] ABSOLUTE NEUTROPHILS 4.1 1.7 - 7.0 thou/cu mm 07/26/2025 12:39 PM CDT [facility] ABSOLUTE LYMPHOCYTES 1.3 0.9 - 2.9 thou/cu mm 07/26/2025 12:39 PM CDT [facility] ABSOLUTE MONOCYTES 0.4 <0.9 thou/cu mm 07/26/2025 12:39 PM CDT [facility] ABSOLUTE EOSINOPHILS 0.1 <0.5 thou/cu mm 07/26/2025 12:39 PM CDT [facility] ABSOLUTE BASOPHILS 0.0 <0.3 thou/cu mm 07/26/2025 12:39 PM CDT [facility] ABSOLUTE IMMATURE GRANULOCYTES(MET ,MYELOS,PROS) 0.0 <0.3 thou/cu mm 07/26/2025 12:39 PM CDT [facility] Blood BLOOD SPECIMEN / Unknown IV Start / Unknown 07/26/2025 11:49 AM CDT 07/26/2025 11:53 AM CDT us Brooks Vidal MD HEMATOLOGY Final R esult Performing Organization Address City/[facility]/ZIP Co de Phone Number [address] [address] * EXTRA TUBE LIGHT GREEN (07/26/2025 11:49 AM CDT) Blood BLOOD SPECIMEN / Unknown IV Start / Unknown 07/26/2025 11:49 AM CDT 07/26/2025 11:53 AM CDT us Brooks Vidal MD LABORATORY Final R esult Performing Organization Address City/[facility]/ZIP Co de Phone Number [address] [address] * EXTRA TUBE LAVENDER (07/26/2025 11:49 AM CDT) Blood BLOOD SPECIMEN / Unknown IV Start / Unknown 07/26/2025 11:49 AM CDT 07/26/2025 11:53 AM CDT us Brooks Vidal MD LABORATORY Final R esult [address] [address] * EXTRA TUBE PERALTA (07/26/2025 11:49 AM CDT) Blood BLOOD SPECIMEN / Unknown IV Start / Unknown 07/26/2025 11:49 AM CDT 07/26/2025 11:53 AM CDT us Brooks Vidal MD LABORATORY Final R esult Performing Organization Address City/[facility] Co de Phone Number [address] [address] * EXTRA TUBE BLUE (07/26/2025 11:49 AM CDT) Blood BLOOD SPECIMEN / Unknown IV Start / Unknown 07/26/2025 11:49 AM CDT 07/26/2025 11:53 AM CDT Brooks Vidal MD LABORATORY Final R lydia Performing Organization Address [facility] de Phone Number [address] [address] * PROTIME-INR (07/26/2025 11:49 AM CDT) Only the most recent of2 resultswithin the time period is included. INR 1.0 <1.3 07/26/2025 1:34 PM CDT [facility] PROTIME 11.8 10.6 - 12.4 sec 07/26/2025 1:34 PM CDT [facility] Blood BLOOD SPECIMEN / Unknown IV Start / Unknown 07/26/2025 11:49 AM CDT 07/26/2025 11:53 AM CDT Narrative [facility] - 07/26/2025 1:34 PM [...] HEMATOLOGY Final R esult Performing Organization Address [facility] Co de Phone Number [address] [address] * (ABNORMAL) HEPATIC FUNCTION PANEL (07/26/2025 11:49 AM CDT) Only the most recent of2 resultswithin the time period is included. ALBUMIN 4.1 4.0 - 4.9 g/dL 07/27/2025 12:13 AM CDT [facility] PROTEIN,TOTAL 6.7 6.0 - 8.0 g/dL 07/27/2025 12:13 AM CDT [facility] BILIRUBIN,TOTAL 1.0 0.0 - 1.2 mg/dL 07/27/2025 12:13 AM CDT [facility] BILIRUBIN,DIRECT 0.4(H) 0.0 - 0.2 mg/dL 07/27/2025 12:13 AM CDT [facility] BILIRUBIN,INDIRE CT 0.6 0.2 - 0.8 mg/dL 07/27/2025 12:13 AM CDT [facility] ALK PHOSPHATASE 57 35 - 104 IU/L 07/27/2025 12:13 AM CDT [facility] ALT (SGPT) 27 10 - 35 IU/L 07/27/2025 12:13 AM CDT [facility] AST (SGOT) 52(H) 10 - 35 IU/L 07/27/2025 12:13 AM CDT [facility] Blood BLOOD SPECIMEN / Unknown IV Start / Unknown 07/26/2025 11:49 AM CDT 07/26/2025 11:53 AM CDT us Zeynep Feliz MD CHEMISTRY Final Res ult [facility] [address] [place] [address] * (ABNORMAL) BASIC METABOLIC PANEL (07/26/2025 11:49 AM CDT) Only the most recent of4 resultswithin the time period is included. SODIUM 142 136 - 145 mmol/L 07/26/2025 1:42 PM CDT [facility] POTASSIUM 3.7 3.5 - 5.1 mmol/L 07/26/2025 1:42 PM CDT [facility] CHLORIDE 105 98 - 107 mmol/L 07/26/2025 1:42 PM CDT [facility] CO2,TOTAL 23 22 - 29 mmol/L 07/26/2025 1:42 PM CDT [facility] ANION GAP 14 5 - 18 07/26/2025 1:42 PM CDT [facility] GLUCOSE 85 70 - 99 mg/dL 07/26/2025 1:42 PM CDT [facility] CALCIUM 9.3 8.8 - 10.4 mg/dL 07/26/2025 1:42 PM CDT [facility] Comment: Reference ranges for this test were updated on 08/22/2024 to reflect our healthy population more accurately. Reference range changes are not retroactively applied to results, but previous results using the same methodology can be interpreted in the context of the new reference range. BUN 5(L) 6 - 20 mg/dL 07/26/2025 1:42 PM CDT [facility] CREATININE 0.71 0.50 - 0.90 mg/dL 07/26/2025 1:42 PM CDT [facility] BUN/CREAT RATIO 7(L) 10 - 20 1:42 PM CDT [facility] eGFR >90 >90 mL/min/1.7 3m2 07/26/2025 1:42 PM CDT [facility] Comment:As of 2021, eG [...] Brooks Vidal MD CHEMISTRY Final R esult [facility] [address] [place] [address] * CT ABDOMEN PELVIS STONE PROTOCOL WO [...] - 60.0 IU/L 07/25/2025 6:49 PM CDT [facility] Blood BLOOD SPECIMEN / Unknown IV Start / Unknown 07/25/2025 6:25 PM CDT 07/25/2025 6:29 PM CDT us Amari Myrick MD CHEMISTRY Final Resu lt [facility] [address] [place] [address] * CT CHEST PE STUDY (07/16/2025 6:48 [...] the right lower lobe (series number 5, [id number]). No focal airspace consolidation, pleural effusion, or [...] MD @ 07/16/2025 7:34:02 PM (Electronically Signed) us Laurent Zuniga MD CT Final Resul t * TROPONIN T (HS) ACUTE W/2HR REFLEX (07/16/2025 5:57 PM CDT) Only the most recent of3 resultswithin the time period is included. TROPONIN T HS <6 6-10 ng/L ng/L 07/16/2025 6:40 PM CDT [facility] Blood BLOOD SPECIMEN / Unknown IV Start / Unknown 07/16/2025 5:57 PM CDT 07/16/2025 6:02 PM CDT Narrative [facility] - 07/16/2025 6:40 PM [...] Laurent Zuniga MD CHEMISTRY Final Resul t [address] [id number] * ,SERUM QUALITATIVE (07/16/2025 5:57 PM CDT) Only the most recent of2 resultswithin the time period is included. ,SERU M Negative Negative 07/16/2025 6:26 PM CDT [facility] Blood BLOOD SPECIMEN / Unknown IV Start / Unknown 07/16/2025 5:57 PM CDT 07/16/2025 6:02 PM CDT us Laurent Zuniga MD CHEMISTRY Final Resul t [address] [id number] * (ABNORMAL) PRO-BNP (07/16/2025 5:57 PM CDT) PRO-BNP 166(H) <125 pg/mL 07/16/2025 6:45 PM CDT [facility] Blood BLOOD SPECIMEN / Unknown IV Start / Unknown 07/16/2025 5:57 PM CDT 07/16/2025 6:02 PM CDT Narrative [facility] - 07/16/2025 6:45 PM [...] Zuniga MD SEND OUTS Final Resul t [address] [id number] * PLATELET COUNT (06/25/2025 6:45 AM CDT) Only the most recent of4 resultswithin the time period is included. PLATELET COUNT 195 140 - 440 thou/cu mm 06/25/2025 6:52 AM CDT [facility] MPV 8.6 6.5 - 11.0 fL 06/25/2025 6:52 AM CDT [facility] Blood BLOOD SPECIMEN / Unknown Butterfly / Unknown 06/25/2025 6:45 AM CDT 06/25/2025 6:50 AM CDT us Courtney Oneil MD HEMATOLOGY Final Result Performing Organization Address City/[facility]/ZIP Co de Phone Number [address] [address] * TROPONIN T (HS) ONE TIME (06/23/2025 6:37 AM CDT) Only the most recent of2 resultswithin the time period is included. TROPONIN T HS <6 6-10 ng/L ng/L 06/23/2025 7:18 AM CDT [facility] Blood BLOOD SPECIMEN / Unknown Venipuncture / Unknown 06/23/2025 6:37 AM CDT 06/23/2025 6:56 AM CDT us John Handy NP CHEMISTRY Final Result Performing Organization Address City/[facility] Co de Phone Number [address] [address] * WHITE BLOOD COUNT (06/23/2025 3:55 AM CDT) WHITE BLOOD COUNT 5.2 4.5 - 11.0 thou/cu mm 06/23/2025 4:01 AM CDT [facility] NRBC 0.4 % 06/23/2025 4:01 AM CDT [facility] ABS NRBC 0.0 thou /cu mm 06/23/2025 4:01 AM CDT [facility] Blood BLOOD SPECIMEN / Unknown Venipuncture / Unknown 06/23/2025 3:55 AM CDT 06/23/2025 3:59 AM CDT us Courtney Oneil MD HEMATOLOGY Final Result Performing Organization Address City/[facility] Co de Phone Number [address] [address] * CREATININE (06/23/2025 3:55 AM CDT) eGFR >90 >90 mL/min/1.7 3m2 06/23/2025 4:18 AM CDT [facility] Comment:As of 2021, eG FR is calculated by the CKD-EPI creatinine equation without race adjustment. eGFR can be influenced by muscle mass, exercise, and diet. The reported eGFR is an estimation only and is only applicable if the renal function is stable. CREATININE 0.76 0.50 - 0.90 mg/dL 06/23/2025 4:18 AM CDT [facility] Blood BLOOD SPECIMEN / Unknown Venipuncture / Unknown 06/23/2025 3:55 AM CDT 06/23/2025 3:59 AM CDT us Courtney Oneil MD CHEMISTRY Final Result Performing Organization Address City/[facility] Co de Phone Number [address] [address] * (ABNORMAL) APTT (06/22/2025 3:49 PM CDT) Only the most recent of4 resultswithin the time period is included. APTT 59(H) 25 - 36 sec 06/22/2025 4:29 PM CDT [facility] Blood BLOOD SPECIMEN / Unknown Butterfly / Unknown 06/22/2025 3:49 PM CDT 06/22/2025 4:18 PM CDT Narrative [facility] - 06/22/2025 4:29 PM CDT Therapeutic Range: 59-89 seconds Brooks Vidal MD HEMATOLOGY Final R esult Performing Organization Address City/[facility]/ZIP Co de Phone Number [address] [address] * CT NECK SOFT TISSUE W (06/22/2025 [...] - 34.8 ng/mL 06/22/2025 8:21 PM CDT [facility] Blood BLOOD SPECIMEN / Unknown Butterfly / Unknown 06/22/2025 10:51 AM CDT 06/22/2025 11:05 AM CDT Narrative [facility] - 06/22/2025 8:21 PM CDT Biotin supplements may cause clinically significant interference for this test assay. If interference is suspected, it is strongly recommended that biotin is discontinued for at least one week prior to retesting. Courtney Oneil MD CHEMISTRY Final Result Performing Organization Address [facility] Co de Phone Number [facility] [address] [place] [address], * (ABNORMAL) VITAMIN B12 (06/22/2025 10:51 AM CDT) Pathologist [facility] VITAMIN B12 <150(L) 232 - 1,245 pg/mL 06/22/2025 7:51 PM CDT [facility] Blood BLOOD SPECIMEN / Unknown Butterfly / Unknown 06/22/2025 10:51 AM CDT 06/22/2025 11:05 AM CDT Narrative [facility] - 06/22/2025 7:51 PM CDT Biotin supplements may cause clinically significant interference for this test assay. If interference is suspected, it is strongly recommended that biotin is discontinued for at least one week prior to retesting. Courtney Oneil MD CHEMISTRY Final Result Performing Organization Address [facility] de Phone Number [facility] [address] [place] [address], * ECHO TTE COMPLETE WO CONTRAST (06/22/2025 8:14 AM CDT) Pathologist [facility] AORTIC VALVE MEAN PG 3 mmHg LVEDD 5.0 cm EJECTION FRACTION 65 - 70% Anatomical Region Laterality Modality Ultrasound 06/22/2025 7:36 AM CDT Narrative 06/22/2025 11:43 AM CDT ECHOCARDIOGRAM KARO SPANNTERRY : 1995 30 years Study Date: 06/22/2025 7:36:23 AM Gender: F BP: 90/47 mmHg Height: 175.00 cm BSA: 2.35 m Weight: 123.00 kg Tech: [facility] Referring MD: BRIAN MOSQUEDA Site: [facility] Reading Location: [facility], [place] Patient Location: Inpatient. Procedure: 2D, Color Doppler, [...] . This study was interpreted by an [facility] accredited facility. Final Procedure Note Hesham Hough MD - 06/22/2025 ECHOCARDIOGRAM KARO ALEMANSaulBRENDAN : 1995 30 years Study Date: 06/22/2025 7:36:23 AM Gender: F BP: 90/47 mmHg Height: 175.00 cm BSA: 2.35 m Weight: 123.00 kg Tech: [facility] Referring MD: BRIAN MOSQUEDA Site: [facility] Reading Location: [facility] Patient Location: Inpatient. Procedure: 2D, Color [...] . This study was interpreted by an [facility] accredited facility. Final us Brian [...] MD @ 06/21/2025 3:13:54 PM (Electronically Signed) Brooks Vidal MD Final R esult * (ABNORMAL) CHIEF CONSTRUCTION INSPECTOR THIN PREP PAP SCREEN IMAGED (11/14/2018 3:00 PM CAR DUMPER) Case Report Gynecologic Cytology Report Case: [id number] Authorizing [facility] Collected: 11/14/2018 1500 Ordering Location: [facility] Received: 11/14/2018 1528 Clinic First Screen: Milagro Johnson Pathologist: Octavio Zhang Jr., MD Specimen: CHIEF CONSTRUCTION INSPECTOR ThinPrep Vial Screening, Cervical 11/25/2018 5:50 PM CAR DUMPER [facility] INTERPRETATION/ RESULT LOW GRADE SQUAMOUS INTRAEPITHELIAL LESION (LSIL)(A) (none) 11/25/2018 5:50 PM CAR DUMPER [facility] at 1750 CAR DUMPER SPECIMEN ADEQUACY Satisfactory for evaluation Endocervical component present 11/25/2018 5:50 PM CAR DUMPER [facility] HPV REQUEST HPV if ASCUS 11/25/2018 5:50 PM CAR DUMPER [facility] Date of LMP 10/24/2018 11/25/2018 5:50 PM CAR DUMPER [facility] Last Pap Date 06/26/16 11/25/2018 5:50 PM CAR DUMPER [facility] Last Pap Result NIL 5:50 PM CAR DUMPER [facility] Abnormal Pap or [place] Bx in last 5 years No 11/25/2018 5:50 PM CAR DUMPER [facility] Menstrual Status Regular Periods 11/25/2018 5:50 PM CAR DUMPER [facility] [place] Bx Done Today No 11/25/2018 5:50 PM CAR DUMPER [facility] Additional Information None given 11/25/2018 5:50 PM CAR DUMPER [facility] Automated Review Successful 11/25/2018 5:50 PM CAR DUMPER [facility] Comment:Specimen processed s uccessfully by automated sales strategy manager device, ThinPrep Imaging System, [employer] Note The pap test is a [...] lesions. Cytology is screened and interpreted at [facility] - [address], [place] [address] and [facility] - [address]; [place] [address] and [facility] - [address]; [place] [address] and [facility] [address]; [place] [address] 11/25/2018 5:50 PM CAR DUMPER [facility] Other (Cervical) Non-Blood / Unknown 11/14/2018 3:00 PM CAR DUMPER 11/14/2018 3:28 PM CAR DUMPER us Mariluz Diamond MD PATHOLOGY/CYTOLOGY Final Re sult [facility] [address] [place] [address], [place] from Last 3 Months or Most Recently Relevant to Health Maintenance Insurance [facility] OF NON-[place]-ITS [employer] [employer] Member Subscriber Plan / Payer (Ef fective 2014-Present) Name:Karo Lilly Relation to Subscriber:Self Name:Karo Lilly Payer ID:Not on file Group ID:Not on file Type:Not on file Address: [address] [place] [phone] Advance Directives * Full Code (Latest Code [...] 9:09 AM 10/14/2016 8:10 PM Care Teams Die Keeper Relationship Specialty [place] [address] [place] [address] PCP - General Family Practice 06/05/24 Pamela Jara NP Nurse Practitioner Nurse Practitioner - Adult 08/06/20 Paulina Mcgregor RN Registered Nurse Registered Nurse 08/06/20
--- OUTSIDE RECORDS SUMMARY | 2025-08-07 22:59 | XMS_ITS | Encounter Summary ---
Author Organization [place] Address [address] [place] [address] Care Team Providers Care Cement Sprayer Helper Name Role Phone Sarah Juares MD Primary Care Provider Unav ailable [facility] Unavailable [phone] Lucas Nuno MD Unavailable [phone] [facility] Unavailable [phone] Jose Tran MD Primary Care Provider [phone] Encounter Details Date Type Department Care Team (Late st Contact Info) Description 06/06/2025 MyC Medical Advice [facility] [place] [id number] [facility] [address] [place] [address] Lucas Nuno MD [address] [facility] [address] [place] [address] Social History Tobacco Use Types Packs/Day Years Used Date Smoking Tobacco: Former Smokeless Tobacco: Never Alcohol Use Standard Drinks/Week Comments Not Currently 0 (1 standard drink = 0.6 oz pur e alcohol) rare PHQ-2 Answer Date Recorded PHQ-2 Score 0 02/22/2025 Crandon Depression Scale Answer Date Recorded Crandon Depression Score 1 07/06/2021 Last EPDS Self [...] AM CDT 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 Gender Identity Female 06/03/2022 7:36 AM CDT Sexual Orientation Straight 06/03/2022 7: 36 AM CDT documented as of this encounter Plan of Treatment Not on file documented as of this encounter Visit Diagnoses Not on filedocumented in this encounter Care Teams Cement Sprayer Helper Relationship Specialty Start Date End Date Sarah Juares MD PCP - General Family Medicine 03/13/25 08/06/25 [place] [address] [place] [address] PCP - General Family Medicine 08/07/25 Purvi Jeong RPH [address] [place] [address] Pharmacist Pharmacist Hot Braider 01/03/25 Lucas Nuno MD [address] [place] [address] Assigned Surgical Provider 02/07/25 Meghan Cox RPH [address] [place] [address] Pharmacist Pharmacist Hot Braider 03/20/25 documented as of this encounter
--- OUTSIDE RECORDS SUMMARY | 2025-08-07 22:59 | XMS_ITS | Encounter Summary ---
Author Organization [place] Address [facility] [place] [address] Care Team Providers Care Mattress Maker Name Role Phone [facility] Primary Care Provider Leatha Wagner APRN [facility] Unavailable [phone] Mariana Acosta PA-C Unavailable + [phone] Sarah Juares MD Primary Care Provider Unav ailable Lucas Nuno MD Unavailable +- Mariana Acosta-C Unavailable [phone] Lucas Nuno MD Unavailable + Mariana Acosta PA-C Unavailable [phone] Purvi Jeong [facility] Unavailable [phone] Lucas Nuno MD Unavailable +- Meghan Cox [facility] Unavailable [phone] Jose Tran MD Primary Care Provider + [phone] Encounter Details Date Type Department Care Team (Late st Contact Info) Description 12/17/2021 [facility] [address] 4th [place] [address] Luis Alberto Mastersoncy Social History Tobacco Use Types Packs/Day Years Used Date Smoking Tobacco: Former Smokeless Tobacco: Never Alcohol Use Standard Drinks/Week Comments Not Currently 0 (1 standard drink = 0.6 oz pur e alcohol) [place] Depression Scale Answer Date Recorded [place] Depression Score 1 07/06/2021 Last EPDS Self Harm Result Not on file 07/06 Comments No Sex and Gender Information Value Date Recorded Sex Assigned at Female 06/03/2022 7:36 AM CDT 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, [facility] [place] [address] PCP - General 01/02/14 03/23/23 Sarah Juares MD [address] [place] [address] PCP - General Family Medicine 03/13/25 08/06/25 [place] [address] [place] [address] PCP - General Family Medicine 08/07/25 Leatha Wagner APRN BOOKKEEPING TEACHER [address] [place] [address] Assigned Surgical Provider 11/02/21 09/04/22 Mariana Acosta PA-C [address] [address] Assigned Surgical Provider 09/05/22 12/09/23 Lucas Nuno MD [address] [address] Assigned Surgical Provider 12/10/23 01/07/24 Mariana Acosta PA-C [address] [address] Assigned Surgical Provider 01/08/24 03/08/24 Lucas Nuno MD [address] [address] Assigned Surgical Provider 03/09/24 12/09/24 Mariana Acosta PA-C [address] [address] Assigned Surgical Provider 12/10/24 02/06/25 Purvi Jeong [facility] [address] [place] [address] Pharmacist Pharmacist Soil Technician 01/03/25 Lucas Nuno MD [address] [address] Assigned Surgical Provider 02/07/25 Meghan Cox [facility] [address] [place] [address] Pharmacist Pharmacist Soil Technician 03/20/25 documented as of this encounter
--- OUTSIDE RECORDS SUMMARY | 2025-08-07 22:59 | XMS_ITS | Patient Health Record ---
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
--- OUTSIDE RECORDS SUMMARY | 2025-08-07 23:00 | XMS_ITS | Encounter Summary ---
Author Organization [facility] Address [address] [place] [address] Care Team Providers Care House Decorator Name Role Phone Unknown, Provider Primary Care Provider Unavaila ble Provider, No Primary Primary Care Provider Unava ilable Encounter Details Date Type Department Care Team (Late st Contact Info) Description 09/20/2006 Historical Notes [facility] Family Medicine [address] [place] [address] Lai Carranza MD Social History Tobacco Use Types Packs/Day Years Used Date Smoking Tobacco: Never Assessed Comments Unknown Sex and Gender Information Value Date Recorded Sex Assigned at Not on file Legal Sex Female 8:59 PM PERIPHERAL VASCULAR TECH Gender Identity Not on file Sexual Orientation Not on file documented as of this encounter Miscellaneous Notes * Clinic Follow Up - Lai Carranza MD - 09/20/2006 3:37 PM CST Karo Gallegos 09/20/2006 3:37 PM Location: [facility].A. : 1995 Single/ Language: Undefined/ Ethnicity: [...] fill out. Mom will fill out any [place] form on attention deficit disorder. I also [...] on filedocumented in this encounter Care Teams House Decorator Relationship Specialty Start Date End Date Unknown, Provider . YESICA PURI [address] PCP - General 10/07/15 01/30/16 Provider, No Primary . YESICA PURI [address] PCP - General 01/31/16 documented as of this encounter Additional Source Comments PLEASE NOTE: Replies to this message will not be received.[facility]
--- OUTSIDE RECORDS SUMMARY | 2025-08-07 23:00 | XMS_ITS | Encounter Summary ---
Author Organization [place] Address [address] [place] [address] Care Team Providers Care Him Assistant Name Role Phone [facility] [place] Primary Care Provider Mariana Acosta PA-C Unavailable + [phone] Sarah Juares MD Primary Care Provider Unav ailable Lucas Nuno MD Unavailable +- Mariana Acosta PA-C Unavailable [phone] Lucas Nuno MD Unavailable +-[phone] Mariana Acosta PA-C Unavailable [phone] Purvi Jeong [facility] Unavailable [phone] Lucas Nuno MD Unavailable + Meghan Cox [facility] Unavailable [phone] Jose Tran MD Primary Care Provider + [phone] Encounter Details Date Type Department Care Team (Late st Contact Info) Description 02/17/2023 [facility] [address] 4th [place] [address] Paulina Denny, RN Social History Tobacco Use Types Packs/Day Years Used Date Smoking Tobacco: Former Smokeless Tobacco: Never Alcohol Use Standard Drinks/Week Comments Not Currently 0 (1 standard drink = 0.6 oz pur e alcohol) rare Empire Depression Scale Answer Date Recorded Empire Depression Score 1 07/06/2021 Last EPDS Self Harm Result Not on file 07/06 Comments No Sex and Gender Information Value Date Recorded Sex Assigned at Female 06/03/2022 7:36 AM CDT 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 [address] [place] [address] PCP - General 01/02/14 03/23/23 Sarah Juares MD [address] [address] [address] PCP - General Family Medicine 03/13/25 08/06/25 [place] [address] [place] [address] PCP - General Family Medicine 08/07/25 Mariana Acosta PA-C [address] [address] Assigned Surgical Provider 09/05/22 12/09/23 Lucas Nuno MD [address] [address] Assigned Surgical Provider 12/10/23 01/07/24 Mariana Acosta PA-C [address] [place] [address] Assigned Surgical Provider 01/08/24 03/08/24 Lucas Nuno MD [address] [place] [address] Assigned Surgical Provider 03/09/24 12/09/24 Mariana Acosta PA-C [address] [place] [address] Assigned Surgical Provider 12/10/24 02/06/25 Purvi Jeong [facility] [address] [place] [address]205 Pharmacist Pharmacist Systems Coordinator 01/03/25 Lucas Nuno MD [address] [place] [address] Assigned Surgical Provider 02/07/25 Meghan Cox [facility] [address] [place] [address] Pharmacist Pharmacist Systems Coordinator 03/20/25 documented as of this encounter
--- OUTSIDE RECORDS SUMMARY | 2025-08-07 23:00 | XMS_ITS | Encounter Summary ---
Author Organization [place] Address [address] [facility] [place] [address] Care Team Providers Care Dot Etcher Apprentice Name Role Phone Clinic, [facility] Primary Care Provider Leatha Wagner APRN [facility] Unavailable [phone] Mariana Acosta PA-C Unavailable + [phone] Sarah Juares MD Primary Care Provider Unav ailable Lucas Nuno MD Unavailable + Mariana Acosta-C Unavailable [phone] Lucas Nuno MD Unavailable + Mariana Acosta-C Unavailable [phone] Purvi Jeong [facility] Unavailable [phone] Lucas Nuno MD Unavailable + Meghan Cox [facility] Unavailable [phone] Jose Tran MD Primary Care Provider + [phone] Encounter Details Date Type Department Care Team [...] AM CDT 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, [facility] [address] [place] [address] PCP - General 01/02/14 03/23/23 Sarah Juares MD [address] [address] PCP - General Family Medicine 03/13/25 08/06/25 [place] [address] [place] [address] PCP - General Family Medicine 08/07/25 Leatha Wagner APRN AUTOMATIC TIRE TESTER [address] [place] [address] Assigned Surgical Provider 11/02/21 09/04/22 Mariana Acosta PA-C [address] [address] Assigned Surgical Provider 09/05/22 12/09/23 Lucas Nuno MD [address] [address] Assigned Surgical Provider 12/10/23 01/07/24 Mariana Acosta PA-C [address] [address] Assigned Surgical Provider 01/08/24 03/08/24 Lucas Nuno MD [address] [address] Assigned Surgical Provider 03/09/24 12/09/24 Mariana Acosta PA-C [address] [address] Assigned Surgical Provider 12/10/24 02/06/25 Purvi Jeong [facility] [address] [place] [address] Pharmacist Pharmacist Csw 01/03/25 Lucas Nuno MD [address] [address] Assigned Surgical Provider 02/07/25 Meghan Cox [facility] [address] [place] [phone] Pharmacist Pharmacist Csw 03/20/25 documented as of this encounter
--- OUTSIDE RECORDS SUMMARY | 2025-08-07 23:00 | XMS_ITS | Encounter Summary ---
Author Organization [place] Address [address] [facility] [place] [address] Care Team Providers Care Auto Clutch Specialist Name Role Phone Sarah Juares MD Primary Care Provider Unav ailable Lucas Nuno MD Unavailable [phone] Mariana Acosta PA-C Unavailable + [phone] Purvi Je[facility] Unavailable [phone] Lucas Nuno MD Unavailable [phone] Meghan Cox [facility] Unavailable [phone] Jose Tran MD Primary Care Provider + [phone] Encounter Details Date Type Department Care Team (Late st Contact Info) Description 11/16/2024 [facility] Medical Advice [facility] [address] 4th [place] [address] Anastasia Molina, RN Social History Tobacco Use Types Packs/Day Years Used Date Smoking Tobacco: Former Smokeless Tobacco: Never Alcohol Use Standard Drinks/Week Comments Not Currently 0 (1 standard drink = 0.6 oz pur e alcohol) rare PHQ-2 Answer Date Recorded PHQ-2 Score 0 11/15/2024 [place] Depression Scale Answer Date Recorded [place] Depression Score 1 07/06/2021 Last EPDS Self Harm Result Not on file 09/19 /2021 Adolescent Education Answer Date Record ed Getting School Help Needed Not on file 07/10 Comments No Sex and Gender Information Value Date Recorded Sex Assigned at Female 06/03/2022 7:36 AM CDT 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 Gender Identity Female 06/03/2022 7:36 AM CDT Sexual Orientation Straight 06/03/2022 7: 36 AM CDT documented as of this encounter Plan of Treatment Not on file documented as of this encounter Visit Diagnoses Not on filedocumented in this encounter Care Teams Auto Clutch Specialist Relationship Specialty Start Date End Date Sarah Juares MD PCP - General Family Medicine 03/13/25 08/06/25 [place] [address] [place] [address] PCP - General Family Medicine 08/07/25 Lucas Nuno MD [address] [place] [address] Assigned Surgical Provider 03/09/24 12/09/24 Mariana Acosta PA-C [address] [place] [address] [phone] Assigned Surgical Provider 12/10/24 02/06/25 Purvi Je[facility] [address] [place] [address] [phone] Pharmacist Pharmacist Multimedia Instructional Designer 01/03/25 Lucas Nuno MD [address] [place] [address] [phone] Assigned Surgical Provider 02/07/25 Meghan Cox [facility] [address] [place] [address] [phone] Pharmacist Pharmacist Multimedia Instructional Designer 03/20/25 documented as of this encounter
--- OUTSIDE RECORDS SUMMARY | 2025-08-07 23:00 | XMS_ITS | Encounter Summary ---
Author Organization [place] Address [address] [place] [address] Care Team Providers Care Commutator Undercutter Name Role Phone Sarah Juares MD Primary Care Provider Unav ailable Purvi Jeong [facility] Unavailable [phone] Lucas Nuno MD Unavailable [phone] Meghan Cox [facility] Unavailable [phone] Jose Tran MD Primary Care Provider [phone] Encounter Details Date Type Department Care Team (Late st Contact Info) Description 03/20/2025 [facility] Medical Advice [facility] [address] 4th [place] [address] Anastasia Molina, RN Social History Tobacco Use Types Packs/Day Years Used Date Smoking Tobacco: Former Smokeless Tobacco: Never Alcohol Use Standard Drinks/Week Comments Not Currently 0 (1 standard drink = 0.6 oz pur e alcohol) rare PHQ-2 Answer Date Recorded PHQ-2 Score 0 02/22/2025 [place] Depression Scale Answer Date Recorded [place] Depression Score 1 07/06/2021 Last EPDS Self [...] AM CDT 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 Gender Identity Female 06/03/2022 7:36 AM CDT Sexual Orientation Straight 06/03/2022 7: 36 AM CDT documented as of this encounter Plan of Treatment Not on file documented as of this encounter Visit Diagnoses Not on filedocumented in this encounter Care Teams Commutator Undercutter Relationship Specialty Start Date End Date Sarah Juares MD PCP - General Family Medicine 03/13/25 08/06/25 [place] [address] [place] [address] PCP - General Family Medicine 08/07/25 Purvi Jeong RPH [address] [place], [place] [phone] Pharmacist Pharmacist Hair Boiler Operator 01/03/25 Lucas Nuno MD [address] [place] [address] [phone] Assigned Surgical Provider 02/07/25 Meghan Cox RPH [address] [place] [address] [phone] Pharmacist Pharmacist Hair Boiler Operator 03/20/25 documented as of this encounter
--- OUTSIDE RECORDS SUMMARY | 2025-08-07 23:00 | XMS_ITS | Encounter Summary ---
Author Organization [employer] Address [address] [place] [address] Care Team Providers Care Mower Operator Name Role Phone Unknown, Provider Primary Care Provider Unavaila ble Provider, No Primary Primary Care Provider Unava ilable Encounter Details Date Type Department Care Team (Late st Contact Info) Description 08/26/2006 Historical Notes [facility] Family Medicine [address] [place] [address] Lai Carranza MD Social History Tobacco Use Types Packs/Day Years Used Date Smoking Tobacco: Never Assessed Comments Unknown Sex and Gender Information Value Date Recorded Sex Assigned at Not on file Legal Sex Female 8:59 PM QUESTIONED DOCUMENTS EXAMINER Gender Identity Not on file Sexual Orientation Not on file documented as of this encounter Miscellaneous Notes * Clinic Follow Up - Lai Carranza MD - 08/26/2006 5:47 PM CST Karo Saini El 08/26/2006 5:47 PM Location: [facility] : 1995 Single/ Language: Undefined/ [...] this time. I will give parents at [place] form and teachers forms will also get [...] on filedocumented in this encounter Care Teams Mower Operator Relationship Specialty Start Date End Date Unknown, Provider . YESICA PURI [address] PCP - General 10/07/15 01/30/16 Provider, No Primary . YESICA PURI [address]897 PCP - General 01/31/16 documented as of this encounter Additional Source Comments PLEASE NOTE: Replies to this message will not be received.[facility]
--- OUTSIDE RECORDS SUMMARY | 2025-08-07 23:00 | XMS_ITS | Encounter Summary ---
Author Organization [place] Address [address] [place] [address] Care Team Providers Care Rn Advice Name Role Phone Mariana Acosta PA-C Unavailable + [phone] Sarah Juares MD Primary Care Provider Unav ailable Lucas Nuno MD Unavailable + Mariana Acosta PA-C Unavailable +[phone] Lucas Nuno MD Unavailable +- Mariana Acosta PA-C Unavailable +[phone] Purvi Jeong [facility] Unavailable [phone] Lucas Nuno MD Unavailable + Meghan Cox [facility] Unavailable [phone] Jose Tran MD Primary Care Provider + [phone] Encounter Details Date Type Department Care Team (Late st Contact Info) Description 05/12/2023 [facility] [address] [place] [address] Xochitl Cooley Social History Tobacco Use Types Packs/Day Years Used Date Smoking Tobacco: Former Smokeless Tobacco: Never Alcohol Use Standard Drinks/Week Comments Not Currently 0 (1 standard drink = 0.6 oz pur e alcohol) rare PHQ-2 Answer Date Recorded PHQ-2 Score 0 05/12/2023 [place] Depression Scale Answer Date Recorded [place] Depression Score 1 07/06/2021 Last EPDS Self Harm Result Not on file 07/06 Comments No Sex and Gender Information Value Date Recorded Sex Assigned at Female 06/03/2022 7:36 AM CDT 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 Gender Identity Female 06/03/2022 7:36 AM [...] filedocumented in this encounter Care Teams Rn Advice Relationship Specialty Start Date End Date Sarah Juares MD [address] [address] PCP - General Family Medicine 03/13/25 08/06/25 [place] [address] [place] [address] PCP - General Family Medicine 08/07/25 Mariana Acosta PA-C [address] [address] Assigned Surgical Provider 09/05/22 12/09/23 Lucas Nuno MD [address] 606125 Assigned Surgical Provider 12/10/23 01/07/24 Mariana Acosta PA-C [address] [address] Assigned Surgical Provider 01/08/24 03/08/24 Lucas Nuno MD [address] [place] [address] Assigned Surgical Provider 03/09/24 12/09/24 Mariana Acosta PA-C [address] [place] [address] Assigned Surgical Provider 12/10/24 02/06/25 Purvi Jeong [facility] [address] [place] [phone] Pharmacist Pharmacist Scallop Raker 01/03/25 Lucas Nuno MD [address] [place] [address] Assigned Surgical Provider 02/07/25 Meghan Cox [facility] [address] [place] [phone] Pharmacist Pharmacist Scallop Raker 03/20/25 documented as of this encounter
--- OUTSIDE RECORDS SUMMARY | 2025-08-07 23:00 | XMS_ITS | Encounter Summary ---
Author Organization [place] Address [address] [facility] [place] [address] Care Team Providers Care Government Gauger Name Role Phone Sarah Juares MD Primary Care Provider Unav ailable Lucas Nuno MD Unavailable +[phone] Mariana Acosta PA-C Unavailable + [phone] Purvi Jeong [facility] Unavailable [phone] Lucas Nuno MD Unavailable [phone] Meghan Cox [facility] Unavailable [phone] Jose Tran MD Primary Care Provider + [phone] Encounter Details Date Type Department Care Team (Late st Contact Info) Description 04/13/2024 [facility] Medical Advice [facility] [address] 4th [place] [address] Giuliana Masterson Social History Tobacco Use Types Packs/Day Years Used Date Smoking Tobacco: Former Smokeless Tobacco: Never Alcohol Use Standard Drinks/Week Comments Not Currently 0 (1 standard drink = 0.6 oz pur e alcohol) rare PHQ-2 Answer Date Recorded PHQ-2 Score 0 05/12/2023 [place] Depression Scale Answer Date Recorded [place] Depression Score 1 07/06/2021 Last EPDS Self Harm Result Not on file 07/06 Adolescent Education Answer Date Record ed Getting School Help Needed Not on file 07/10 Comments No Sex and Gender Information Value Date Recorded Sex Assigned at Female 06/03/2022 7:36 AM CDT 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 ASSISTANCE COORDINATOR Gender Identity Female 06/03/2022 7:36 AM CDT Sexual Orientation Straight 06/03/2022 7: 36 AM CDT documented as of this encounter Plan of Treatment Not on file documented as of this encounter Visit Diagnoses Not on filedocumented in this encounter Care Teams Government Gauger Relationship Specialty Start Date End Date Sarah Juares MD PCP - General Family Medicine 03/13/25 08/06/25 [place] [address] [facility] [place] [address] PCP - General Family Medicine 08/07/25 Lucas Nuno MD [address] [place] [address] Assigned Surgical Provider 03/09/24 12/09/24 Mariana Acosta PA-C [address] [place] [address] [phone] Assigned Surgical Provider 12/10/24 02/06/25 Purvi Jeong [facility] [address] [place] [address] [phone] Pharmacist Pharmacist Conductor Pullman 01/03/25 Lucas Nuno MD [address] [place] [address] [phone] Assigned Surgical Provider 02/07/25 Meghan Cox [facility] [address] [place] [address] [phone] Pharmacist Pharmacist Conductor Pullman 03/20/25 documented as of this encounter
--- OUTSIDE RECORDS SUMMARY | 2025-08-07 23:00 | XMS_ITS | Encounter Summary ---
Author Organization [place] Address [address] [place] [address] Care Team Providers Care Boarding Specialist Name Role Phone Sarah Juares MD Primary Care Provider Unav ailable Lucas Nuno MD Unavailable [phone] Mariana Acosta PR-C Unavailable + [phone] Purvi Jeong [facility] Unavailable [phone] Lucas Nuno MD Unavailable [phone] Meghan Cox [facility] Unavailable [phone] Jose Tran MD Primary Care Provider + [phone] Encounter Details Date Type Department Care Team (Late st Contact Info) Description 11/15/2024 [facility] [address] 4th [place] [address] Nelda Mcdaniel Social History Tobacco Use Types Packs/Day Years Used Date Smoking Tobacco: Former Smokeless Tobacco: Never Alcohol Use Standard Drinks/Week Comments Not Currently 0 (1 standard drink = 0.6 oz pur e alcohol) rare PHQ-2 Answer Date Recorded PHQ-2 Score 0 11/15/2024 [place] Depression Scale Answer Date Recorded [place] Depression Score 1 07/06/2021 Last EPDS Self Harm Result Not on file 07/06 Adolescent Education Answer Date Record ed Getting School Help Needed Not on file 07/10 Comments No Sex and Gender Information Value Date Recorded Sex Assigned at Female 06/03/2022 7:36 AM CDT 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 HELPER Gender Identity Female 06/03/2022 7:36 AM CDT Sexual Orientation Straight 06/03/2022 7: 36 AM CDT documented as of this encounter Plan of Treatment Not on file documented as of this encounter Visit Diagnoses Not on filedocumented in this encounter Care Teams Boarding Specialist Relationship Specialty Start Date End Date Sarah Juares MD PCP - General Family Medicine 03/13/25 08/06/25 [place] [address] [place] [address] PCP - General Family Medicine 08/07/25 Lucas Nuno MD [address] [place] [address] Assigned Surgical Provider 03/09/24 12/09/24 Mariana Acosta PA-C [address] [place] [address] [phone] Assigned Surgical Provider 12/10/24 02/06/25 Purvi Jeong [facility] [address] [place] [address] [phone] Pharmacist Pharmacist Supervisor Television Chassis Repair 01/03/25 Lucas Nuno MD [address] [place] [address] [phone] Assigned Surgical Provider 02/07/25 Meghan Cox [facility] [address] [place] [address] [phone] Pharmacist Pharmacist Supervisor Television Chassis Repair 03/20/25 documented as of this encounter
--- OUTSIDE RECORDS SUMMARY | 2025-08-07 23:00 | XMS_ITS | Encounter Summary ---
Author Organization [facility] Address [address] [place] [address] Care Team Providers Care Senior Restaurant Manager Name Role Phone Elsewhere, Pcp Primary Care Provider Unavailabl e Encounter Details Date Type Department Care Team (Late st Contact Info) Description 07/31/2025 Results Follow-Up Department of Vascular Medicine in [place], [place] [address] [place] [phone] Hang Arrington M.D. [address] [place] [phone] [place] [facility] Social History Tobacco Use Types Packs/Day Years Used Date Smoking Tobacco: Former Cigarettes 0 05/22/2014 - 10/14/2018 Passive Smoke Exposure: Current Smokeless Tobacco: Never Alcohol Use Standard Drinks/Week Comments Not Currently 3 (1 standard drink = 0.6 oz pure alcohol) Date nights maybe wednesday and wednesday [facility] Utilities Answer Date Recorded In the past 12 months has [employer], gas, oil, or water [employer] threatened to shut off services in your [...] situation today? I have a [facility] place to live 07/03/2024 Comments Unknown Sex and Gender Information Value Date Recorded Sex Assigned at Not on file Legal Sex Female 6:06 PM CERAMIC DESIGN ENGINEER Gender Identity Not on file Sexual Orientation Not on file documented as of this encounter Plan of Treatment Not on file documented as of this encounter Visit Diagnoses Not on filedocumented in this encounter Care Teams Senior Restaurant Manager Relationship Specialty Start Date End Date Elsewhere, Pcp PCP - General Internal Medicine 04/12/24 documented as of this encounter
--- OUTSIDE RECORDS SUMMARY | 2025-08-07 23:00 | XMS_ITS | Encounter Summary ---
Author Organization [place] Address [facility] [place] [address] Care Team Providers Care General Dentist/Owner Name Role Phone [facility] Primary Care Provider Leatha Wagner APRN [facility] Unavailable +[phone] Mariana Acosta PA-C Unavailable + [phone] Sarah Juares MD Primary Care Provider Unav ailable Lucas Nuno MD Unavailable +- Mariana Acosta-C Unavailable +[phone] Lucas Nuno MD Unavailable + Mariana Acosta PA-C Unavailable +[phone] Purvi Jeong [facility] Unavailable [phone] Lucas Nuno MD Unavailable +- Meghan Cox [facility] Unavailable [phone] Jose Tran MD Primary Care Provider + [phone] Encounter Details Date Type Department Care Team (Late st Contact Info) Description 06/02/2022 [facility] Weight Management [facility] [address] 4th [place] [address] Rita Gillespie, EMT Social History Tobacco Use Types Packs/Day Years Used Date Smoking Tobacco: Former Smokeless Tobacco: Never Alcohol Use Standard Drinks/Week Comments Not Currently 0 (1 standard drink = 0.6 oz pur e alcohol) [place] Depression Scale Answer Date Recorded [place] Depression Score 1 07/06/2021 Last EPDS Self Harm Result Not on file 07/06 Comments No Sex and Gender Information Value Date Recorded Sex Assigned at Female 06/03/2022 7:36 AM CDT Legal Sex Female 3:38 AM STATIONARY STEAM ENGINEER Gender Identity Female 06/03/2022 7:36 AM [...] documented as of this encounter Care Teams General Dentist/Owner Relationship Specialty Start Date End Date [facility], [facility] [address] [place] [address] PCP - General 01/02/14 03/23/23 Sarah Juares MD [address] [place] [address] PCP - General Family Medicine 03/13/25 08/06/25 [place] [address] [place] [address] PCP - General Family Medicine 08/07/25 Leatha Wagner APRN [employer] [address] [place] [address] [phone] Assigned Surgical Provider 11/02/21 09/04/22 Mariana Acosta PA-C [address] [address] Assigned Surgical Provider 09/05/22 12/09/23 Lucas Nuno MD [address] [address] Assigned Surgical Provider 12/10/23 01/07/24 Mariana Acosta PA-C [address] [address] Assigned Surgical Provider 01/08/24 03/08/24 Lucas Nuno MD [address] [address] Assigned Surgical Provider 03/09/24 12/09/24 Mariana Acosta PA-C [address] [address] Assigned Surgical Provider 12/10/24 02/06/25 Purvi Jeong [facility] [address] [place] [address] Pharmacist Pharmacist Professor Of Literacy 01/03/25 Lucas Nuno MD [address] [address] Assigned Surgical Provider 02/07/25 Meghan Cox [facility] [address] [place] [address] Pharmacist Pharmacist Professor Of Literacy 03/20/25 documented as of this encounter
--- OUTSIDE RECORDS SUMMARY | 2025-08-07 23:00 | XMS_ITS | Encounter Summary ---
Author Organization [place] Address [address] [facility] [place] [address] Care Team Providers Care Digital Cartographic Technician Name Role Phone Sarah Juares MD Primary Care Provider Unav ailable Lucas Nuno MD Unavailable [phone] Mariana Acosta OK-C Unavailable + [phone] Purvi Jeong [facility] Unavailable [phone] Lucas Nuno MD Unavailable [phone] Meghan Cox [facility] Unavailable [phone] Jose Tran MD Primary Care Provider + [phone] Encounter Details Date Type Department Care Team (Late st Contact Info) Description 04/13/2024 [facility] [address] [place] [address] [facility] Social History Tobacco Use Types Packs/Day Years Used Date Smoking Tobacco: Former Smokeless Tobacco: Never Alcohol Use Standard Drinks/Week Comments Not Currently 0 (1 standard drink = 0.6 oz pur e alcohol) rare PHQ-2 Answer Date Recorded PHQ-2 Score 0 05/12/2023 [place] Depression Scale Answer Date Recorded [place] Depression Score 1 07/06/2021 Last EPDS Self Harm Result Not on file 07/06 Adolescent Education Answer Date Record ed Getting School Help Needed Not on file 07/10 Comments No Sex and Gender Information Value Date Recorded Sex Assigned at Female 06/03/2022 7:36 AM CDT Legal Sex Female 3:38 AM MARKETING SERVICES SPECIALIST Gender Identity Female 06/03/2022 7:36 AM CDT Sexual Orientation Straight 06/03/2022 7: 36 AM CDT documented as of this encounter Plan of Treatment Not on file documented as of this encounter Visit Diagnoses Not on filedocumented in this encounter Care Teams Digital Cartographic Technician Relationship Specialty Start Date End Date Sarah Juares MD PCP - General Family Medicine 03/13/25 08/06/25 [place] [address] [place] [address] PCP - General Family Medicine 08/07/25 Lucas Nuno MD [address] [place] [address] Assigned Surgical Provider 03/09/24 12/09/24 Mariana Acosta PA-C [address] [place] [address] [phone] Assigned Surgical Provider 12/10/24 02/06/25 Purvi Jeong [facility] [address] [place] [address] [phone] Pharmacist Pharmacist Adaptive Physical Educator 01/03/25 Lucas Nuno MD [address] [place] [address] 239355 Assigned Surgical Provider 02/07/25 Meghan Cox [facility] [address] [place] [address] [phone] Pharmacist Pharmacist Adaptive Physical Educator 03/20/25 documented as of this encounter
--- OUTSIDE RECORDS SUMMARY | 2025-08-07 23:00 | XMS_ITS | Encounter Summary ---
Author Organization [place] Address [address] [facility] [place] [address] Care Team Providers Care Roll Press Operator Name Role Phone Sarah Juares MD Primary Care Provider Unav Mariana RodriguezC Unavailable + [phone] Purvi Jenog [facility] Unavailable [phone] Lucas Nuno MD Unavailable +[phone] Meghan Cox [facility] Unavailable [phone] Jose Tran MD Primary Care Provider [phone] Encounter Details Date Type Department Care Team (Late st Contact Info) Description 01/30/2025 [facility] [place] [place] Medical [facility] [address] [facility] [address] [place] [address] Keena Valente Social History Tobacco Use Types Packs/Day Years Used Date Smoking Tobacco: Former Smokeless Tobacco: Never Alcohol Use Standard Drinks/Week Comments Not Currently 0 (1 standard drink = 0.6 oz pur e alcohol) rare PHQ-2 Answer Date Recorded PHQ-2 Score 0 11/15/2024 [place] Depression Scale Answer Date Recorded [place] Depression Score 1 07/06/2021 Last EPDS Self [...] AM CDT Legal Sex Female 3:38 AM MOSAIC TILER Gender Identity Female 06/03/2022 7:36 AM CDT Sexual Orientation Straight 06/03/2022 7: 36 AM CDT documented as of this encounter Plan of Treatment Not on file documented as of this encounter Visit Diagnoses Not on filedocumented in this encounter Care Teams Roll Press Operator Relationship Specialty Start Date End Date Sarah Juares MD PCP - General Family Medicine 03/13/25 08/06/25 [place] [address] [place] [address] PCP - General Family Medicine 08/07/25 Mariana Acosta PA-C [address] [place] [address] [id number] Assigned Surgical Provider 12/10/24 02/06/25 Purvi Jeong [facility] [address] [place] [address] [phone] Pharmacist Pharmacist Company Truck Driver 01/03/25 Lucas Nuno MD [address] [place] [address] 177375 Assigned Surgical Provider 02/07/25 Meghan Cox [facility] [address] [place] [address] Pharmacist Pharmacist Company Truck Driver 03/20/25 documented as of this encounter
--- OUTSIDE RECORDS SUMMARY | 2025-08-07 23:00 | XMS_ITS | Clinical Summary ---
Author Organization [place] Address [address] [place] [place] [address] Care Team Providers Care Safety Consultant Name Role Phone Purvi Jeong [facility] Unavailable [phone] Lucas Nuno MD Unavailable [phone] Meghan Cox [facility] Unavailable [phone] Jose Tran MD Primary Care Provider + [phone] Allergies Active Allergy Reactions Criticality Noted Date [...] 4 MG/0.1ML nasal sprayIndication s:Acute post-operative pain [place] 1 spray (4 mg) into one nostril [...] [facility] Assessment & Plan (12/09/2021 6:41 PM TANKROOM TENDER): 10% improvement of reflux (perecieved) since adding [...] months Assessment & Plan (10/23/2021 5:11 PM TANKROOM TENDER): 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 Did great [...] Encounters Date Type Department Care Team Description 08/06/2025 11:24 AM CDT - 08/06/2025 1:39 PM CDT Emergency [facility] Emergency Dept [address] [place] [address] Art Starr MD Nausea and vomiting, unspecified vomiting type (Primary Dx) Discharge Disposition: Home or Self Care 08/06/2025 Travel 06/06/2025 MyC Medical Advice [facility] General Surgery [facility] [address] 4th [place] [address] Lucas Nuno MD from Last 3 Months Family History Medical [...] Answer Date Recorded PHQ-2 Score 0 02/22/2025 [place] Depression Scale Answer Date Recorded [place] Depression Score 1 07/06/2021 Last EPDS Self [...] in an abandoned building, in an overnight senior care, or couch-surfing.) Yes 03/21/2025 Are you worried [...] AM CDT Legal Sex Female 3:38 AM TANKROOM TENDER Gender Identity Female 06/03/2022 7:36 AM [...] Mass Index 39.62 08/06/2025 11:08 AM CDT Plan of Treatment Health Maintenance [...] Procedure Name Priority Date/Time Associated Diagnosis Comments CBC WITH PLATELETS AND DIFFERENTIAL (LIMITED OCCURRENCES) STAT 08/06/2025 12:38 PM CDT EXTRA BLUE TOP TUBE STAT 08/06/2025 1 2:38 PM CDT CBC WITH PLATELETS AND DIFFERENTIAL STAT 08/06/2025 12:38 PM CDT EXTRA TUBE STAT 08/06/2025 12:38 PM CDT LIPASE STAT 08/06/2025 12:38 PM CDT COMPREHENSIVE METABOLIC PANEL (LIMITED OCCURRENCES) STAT 08/06/2025 12:38 PM CDT HIV 1&2 ANTIBODY (EXTERNAL RESULT) Routine 12/19/2020 9:24 AM TANKROOM TENDER from Last 3 Months or Most Recently Relevant to Health Maintenance Results * Extra Blue Top Tube (08/06/2025 12:38 PM CDT) Hold Specimen JIC 08/06/2025 2:09 PM CDT [facility] Blood STRUCTURE OF LEFT UPPER LIMB / Unknown Venipuncture / Unknown 08/06/2025 12:38 PM CDT 08/06/2025 12:54 PM CDT Art Starr MD LAB - BLOOD ORDERABLES Fi nal Result [facility] [address] [facility] Lab (1st floor, no room number) [place] [address] * (ABNORMAL) CBC with [...] LAB - BLOOD ORDERABLES Fi nal Result [facility] [address] Lab (1st floor, no room number) [place] [address], [facility] * (ABNORMAL) Comprehensive Metabolic Panel (Limited Occurrences) [...] - 107 mmol/L 08/06/2025 1:22 PM CDT [facility] Glucose 100(H) 70 - 99 mg/dL [...] LAB - BLOOD ORDERABLES Fi nal Result Performing Organization Address City/[facility]/ZIP Co de Phone Number [facility] [address] [facility] Lab (1st floor, no room number) [place] [address] * Lipase (08/06/2025 12:38 PM CDT) Pathologist [facility] Lipase 16 13 - 60 U/L 08/06/2025 1:22 PM CDT LABORATORY Blood STRUCTURE OF LEFT UPPER LIMB / Unknown Venipuncture / Unknown 08/06/2025 12:38 PM CDT 08/06/2025 12:54 PM CDT us Art Starr MD LAB - BLOOD ORDERABLES Fi nal Result Performing Organization Address [facility] Co de Phone Number [facility] [address] [facility] Lab (1st floor, no room number) [place] [address] * HIV-1 Antibody (External Result) (12/19/2020 9:24 AM TANKROOM TENDER) [facility] HIV 1&2 Antibody (External) Negative Nonreactive [facility] 12/19/2020 9:24 AM TANKROOM TENDER us Patient Reported LAB - HIM EXTERNAL RESULT Final Result [facility] [address] [place], [place] [address] [phone] from Last 3 Months or Most Recently Relevant to Health Maintenance Insurance [facility] OUT OF STATE [facility] * Guarantor: Karo Chavira Account Type Relation to Patient Date of Phone Billing Address Medication Therapy Self 1995 [id number] [place] [address] Advance Directives For more information, please contact: [phone] * Full Code (Latest Code Status on [...] 1:00 AM 05/17/2014 2:26 PM Care Teams Safety Consultant Relationship Specialty [place] [address] [facility] [place] [address] PCP - General Family Medicine 08/07/25 Purvi Jeong [facility] [address] [place] [address] [phone] Pharmacist Pharmacist Armored Car Guard And Driver 01/03/25 Lucas Nuno MD [address] [place] [address] [phone] Assigned Surgical Provider 02/07/25 Meghan Cox [facility] [address] [place] [address] [phone] Pharmacist Pharmacist Armored Car Guard And Driver 03/20/25
--- OUTSIDE RECORDS SUMMARY | 2025-08-07 23:00 | XMS_ITS | Encounter Summary ---
Author Organization [place] Address [address] [facility] [place] [address] Care Team Providers Care Manager Family Name Role Phone Sarah Juares MD Primary Care Provider Mariana ChadwickC Unavailable + [phone] Purvi Jeong [facility] Unavailable [phone] Lucas Nuno MD Unavailable [phone] Meghan Cox [facility] Unavailable [phone] Jose Tran MD Primary Care Provider [phone] Encounter Details Date Type Department Care Team (Late st Contact Info) Description 01/25/2025 [facility] Medical Adv[facility] [address] 4th [place] [address] Anastasia Molina, RN Social History Tobacco Use Types Packs/Day Years Used Date Smoking Tobacco: Former Smokeless Tobacco: Never Alcohol Use Standard Drinks/Week Comments Not Currently 0 (1 standard drink = 0.6 oz pur e alcohol) rare PHQ-2 Answer Date Recorded PHQ-2 Score 0 11/15/2024 [place] Depression Scale Answer Date Recorded [place] Depression Score 1 07/06/2021 Last EPDS Self [...] AM CDT 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 Gender Identity Female 06/03/2022 7:36 AM CDT Sexual Orientation Straight 06/03/2022 7: 36 AM CDT documented as of this encounter Plan of Treatment Not on file documented as of this encounter Visit Diagnoses Not on filedocumented in this encounter Care Teams Manager Family Relationship Specialty Start Date End Date Sarah Juares MD PCP - General Family Medicine 03/13/25 08/06/25 [place] [address] [place] [address] PCP - General Family Medicine 08/07/25 Mariana Acosta PA-C [address] [place] [address] Assigned Surgical Provider 12/10/24 02/06/25 Purvi Jeong [facility] [address] [place] [address] [phone] Pharmacist Pharmacist Mud Mill Tender 01/03/25 Lucas Nuno MD [address] [place] [address] Assigned Surgical Provider 02/07/25 Meghan Cox, [facility] [address] [place] [address] Pharmacist Pharmacist Mud Mill Tender 03/20/25 documented as of this encounter
--- OUTSIDE RECORDS SUMMARY | 2025-08-07 23:00 | XMS_ITS | Encounter Summary ---
Author Organization [place] Address [address] [facility] [place] [address] Care Team Providers Care Volunteer Recruitment Coordinator Name Role Phone Mariana Acosta PA-C Unavailable + [phone] Sarah Juares MD Primary Care Provider Unav ailable Lucas Nuno MD Unavailable + Mariana Acosta PA-C Unavailable [phone] Lucas Nuno MD Unavailable +- Mariana Acosta PA-C Unavailable [phone] Purvi Jeong [facility] Unavailable [phone] Lucas Nuno MD Unavailable + Meghan Cox [facility] Unavailable [phone] Jose Tran MD Primary Care Provider + [phone] Encounter Details Date Type Department Care Team (Late st Contact Info) Description 10/07/2023 [facility] Advice [facility] [address] 4th [place] [address] Giuliana Masterson Social History Tobacco Use Types Packs/Day Years Used Date Smoking Tobacco: Former Smokeless Tobacco: Never Alcohol Use Standard Drinks/Week Comments Not Currently 0 (1 standard drink = 0.6 oz pur e alcohol) rare PHQ-2 Answer Date Recorded PHQ-2 Score 0 05/12/2023 [place] Depression Scale Answer Date Recorded [place] Depression Score 1 07/06/2021 Last EPDS Self Harm Result Not on file 07/06 Adolescent Education Answer Date Record ed Getting School Help Needed Not on file 07/10 Comments No Sex and Gender Information Value Date Recorded Sex Assigned at Female 06/03/2022 7:36 AM CDT Legal Sex Female 3:38 AM 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 SITE SUPERVISOR Gender Identity Female 06/03/2022 7:36 AM CDT Sexual Orientation Straight 06/03/2022 7: 36 AM CDT documented as of this encounter Plan of Treatment Not on file documented as of this encounter Visit Diagnoses Not on filedocumented in this encounter Care Teams Volunteer Recruitment Coordinator Relationship Specialty Start Date End Date Sarah Juares MD [address] [address] PCP - General Family Medicine 03/13/25 08/06/25 [place] [address] [place] [address] PCP - General Family Medicine 08/07/25 Mariana Acosta PA-C [address] [address] Assigned Surgical Provider 09/05/22 12/09/23 Lucas Nuno MD [address] [address] Assigned Surgical Provider 12/10/23 01/07/24 Mariana Acosta PA-C [address] [facility] [address] [place] [address] Assigned Surgical Provider 01/08/24 03/08/24 Lucas Nuno MD [address] [address] Assigned Surgical Provider 03/09/24 12/09/24 Mariana Acosta PA-C [address] [address] Assigned Surgical Provider 12/10/24 02/06/25 Purvi Jeong [facility] [address] [place] [address] [phone] Pharmacist Pharmacist Naval Designer 01/03/25 Lucas Nuno MD [address] [place] [address] Assigned Surgical Provider 02/07/25 Meghan Cox [facility] [address] [place], [place] [phone] Pharmacist Pharmacist Naval Designer 03/20/25 documented as of this encounter
--- OUTSIDE RECORDS SUMMARY | 2025-08-07 23:00 | XMS_ITS | Encounter Summary ---
Author Organization [place] Address [address] [facility] [place] [address] Care Team Providers Care Director Of Income Tax Name Role Phone Sarah Juares MD Primary Care Provider UnaMariana RochaC Unavailable + [phone] Purvi Jeong [facility] Unavailable [phone] Lucas Nuno MD Unavailable [phone] Meghan Cox [facility] Unavailable [phone] Jose Tran MD Primary Care Provider [phone] Encounter Details Date Type Department Care Team (Late st Contact Info) Description 01/09/2025 [facility] Medical Advice [facility] [address] 4th [place] [address] Mirna Ibrahim, RN Social History Tobacco Use Types Packs/Day Years Used Date Smoking Tobacco: Former Smokeless Tobacco: Never Alcohol Use Standard Drinks/Week Comments Not Currently 0 (1 standard drink = 0.6 oz pur e alcohol) rare PHQ-2 Answer Date Recorded PHQ-2 Score 0 11/15/2024 [place] Depression Scale Answer Date Recorded [place] Depression Score 1 07/06/2021 Last EPDS Self Harm Result Not on file 07/06 Adolescent Education Answer Date Record ed Getting School Help Needed Not on file 07/10 Comments No Sex and Gender Information Value Date Recorded Sex Assigned at Female 06/03/2022 7:36 AM CDT 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 Gender Identity Female 06/03/2022 7:36 AM CDT Sexual Orientation Straight 06/03/2022 7: 36 AM CDT documented as of this encounter Plan of Treatment Not on file documented as of this encounter Visit Diagnoses Not on filedocumented in this encounter Care Teams Director Of Income Tax Relationship Specialty Start Date End Date Sarah Juares MD PCP - General Family Medicine 03/13/25 08/06/25 [place] [address] [place] [address] PCP - General Family Medicine 08/07/25 Mariana Acosta PA-C [address] [place] [address] [phone] Assigned Surgical Provider 12/10/24 02/06/25 Purvi Jeong [facility] [address] [place] [address] [phone] Pharmacist Pharmacist First Line Supervisor 01/03/25 Lucas Nuno MD [address] [place] [address] [phone] Assigned Surgical Provider 02/07/25 Meghan Cox [facility] [address] [place] [address] [phone] Pharmacist Pharmacist First Line Supervisor 03/20/25 documented as of this encounter
--- OUTSIDE RECORDS SUMMARY | 2025-08-07 23:00 | XMS_ITS | Encounter Summary ---
Author Organization [place] Address [address] [facility] [place] [address] Care Team Providers Care Pile Driving Technician Name Role Phone Sarah Juares MD Primary Care Provider Unav jesicaable Purvi Jeong [facility] Unavailable [phone] Lucas Nuno MD Unavailable [phone] Meghan Cox [facility] Unavailable [phone] Encounter Details Date Type Department Care Team (Latest Contact Info) Description 08/06/2025 Travel Social History Tobacco Use Types Packs/Day Years Used Date Smoking Tobacco: Former Smokeless Tobacco: Never Alcohol Use Standard Drinks/Week Comments Not Currently 0 (1 standard drink = 0.6 oz pur e alcohol) rare PHQ-2 Answer Date Recorded PHQ-2 Score 0 02/22/2025 [place] Depression Scale Answer Date Recorded [place] Depression Score 1 07/06/2021 Last EPDS Self [...] AM CDT 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 Gender Identity Female 06/03/2022 7:36 AM CDT Sexual Orientation Straight 06/03/2022 7: 36 AM CDT documented as of this encounter Plan of Treatment Not on file documented as of this encounter Visit Diagnoses Not on filedocumented in this encounter Care Teams Pile Driving Technician Relationship Specialty Start Date End Date Sarah Juares MD PCP - General Family Medicine 03/13/25 08/06/25 Purvi Jeong [facility] [address] [place], [place] [phone] Pharmacist Pharmacist Manager Risk 01/03/25 Lucas Nuno MD [address] [place] [address] Assigned Surgical Provider 02/07/25 Meghan Cox [facility] [address] [place] [address] Pharmacist Pharmacist Manager Risk 03/20/25 documented as of this encounter
--- OUTSIDE RECORDS SUMMARY | 2025-08-07 23:00 | XMS_ITS | Encounter Summary ---
Author Organization [place] Address [address] [facility] [place] [address] Care Team Providers Care Street Light Lamp Cleaner Name Role Phone Mariana AcostaC Unavailable + [phone] Sarah Juares MD Primary Care Provider Unav ailable Lucas Nuno MD Unavailable +- Mariana Acosta-C Unavailable [phone] Lucas Nuno MD Unavailable +- Mariana Acosta-C Unavailable [phone] Purvi Jeong [facility] Unavailable [phone] Lucas Nuno MD Unavailable + Meghan Cox [facility] Unavailable [phone] Jose Tran MD Primary Care Provider + [phone] Reason for Visit * Reason Onset Date Comments Refill Request 10/20/2023 Encounter Details Date Type Department Care Team (Late st Contact Info) Description 10/20/2023 [facility] [place] [address] [facility] [address] 4th [place] [address] Mariana Acosta PA-C [address] [address] Refill Request Social History Tobacco Use Types Packs/Day Years Used Date Smoking Tobacco: Former Smokeless Tobacco: Never Alcohol Use Standard Drinks/Week Comments Not Currently 0 (1 standard drink = 0.6 oz pur e alcohol) rare PHQ-2 Answer Date Recorded PHQ-2 Score 0 05/12/2023 [place] Depression Scale Answer Date Recorded [place] Depression Score 1 07/06/2021 Last EPDS Self Harm Result Not on file 07/06 Adolescent Education Answer Date Record ed Getting School Help Needed Not on file 07/10 Comments No Sex and Gender Information Value Date Recorded Sex Assigned at Female 06/03/2022 7:36 AM CDT 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 Gender Identity Female 06/03/2022 7:36 AM CDT Sexual Orientation Straight 06/03/2022 7: 36 AM CDT documented as of this encounter Plan of Treatment Not on file documented as of this encounter Visit Diagnoses Diagnosis Class 2 severe obesity due to excess calories with serious comorbidity and body mass index (BMI) of 39.0 to 39.9 in adult documented in this encounter Care Teams Street Light Lamp Cleaner Relationship Specialty Start Date End Date Sarah Juares MD [address] [place] [address] PCP - General Family Medicine 03/13/25 08/06/25 [place] [address] [place] [address] PCP - General Family Medicine 08/07/25 Mariana Acosta PA-C [address] [address] Assigned Surgical Provider 09/05/22 12/09/23 Lucas Nuno MD [address] [address] Assigned Surgical Provider 12/10/23 01/07/24 Mariana Acosta PA-C [address] [place] [address] Assigned Surgical Provider 01/08/24 03/08/24 Lucas Nuno MD [address] [place] [address] Assigned Surgical Provider 03/09/24 12/09/24 Mariana Acosta PA-C [address] [place] [address] Assigned Surgical Provider 12/10/24 02/06/25 Purvi Jeong [facility] [address] [place] [address] [phone] Pharmacist Pharmacist Lease Purchase Driver 01/03/25 Lucas Nuno MD [address] [place] [address] Assigned Surgical Provider 02/07/25 Meghan Cox [facility] [address] [place] [address] Pharmacist Pharmacist Lease Purchase Driver 03/20/25 documented as of this encounter
--- OUTSIDE RECORDS SUMMARY | 2025-08-07 23:00 | XMS_ITS | Encounter Summary ---
Author Organization [place] Address [address] [facility] [place] [address] Care Team Providers Care Copy Operator Name Role Phone Mariana Acosta PA-C Unavailable + [phone] Sarah Juares MD Primary Care Provider Unav ailable Lucas Nuno MD Unavailable +- Mariana Acosta PA-C Unavailable +[phone] Lucas Nuno MD Unavailable +- Mariana Acosta PA-C Unavailable [phone] Purvi Jeong [facility] Unavailable [phone] Lucas Nuno MD Unavailable + Meghan Cox [facility] Unavailable [phone] Jose Tran MD Primary Care Provider + [phone] Encounter Details Date Type Department Care Team (Late st Contact Info) Description 05/12/2023 My[facility] Medical Advice [facility]AC[facility] [facility] [place] [place] [address] Christiano Hull Social History Tobacco Use Types Packs/Day Years Used Date Smoking Tobacco: Former Smokeless Tobacco: Never Alcohol Use Standard Drinks/Week Comments Not Currently 0 (1 standard drink = 0.6 oz pur e alcohol) rare PHQ-2 Answer Date Recorded PHQ-2 Score 0 05/12/2023 [place] Depression Scale Answer Date Recorded [place] Depression Score 1 07/06/2021 Last EPDS Self Harm Result Not on file 07/06 Comments No Sex and Gender Information Value Date Recorded Sex Assigned at Female 06/03/2022 7:36 AM CDT 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 Gender Identity Female 06/03/2022 7:36 AM [...] on filedocumented in this encounter Care Teams Copy Operator Relationship Specialty Start Date End Date Sarah Juares MD [address] [address] PCP - General Family Medicine 03/13/25 08/06/25 [place] [address] [place] [address] PCP - General Family Medicine 08/07/25 Mariana Acosta PA-C [address] [address] Assigned Surgical Provider 09/05/22 12/09/23 Lucas Nuno MD [address] 801535 Assigned Surgical Provider 12/10/23 01/07/24 Mariana Acosta PA-C [address] 035605 Assigned Surgical Provider 01/08/24 03/08/24 Lucas Nuno MD [address] [place] [address] Assigned Surgical Provider 03/09/24 12/09/24 Mariana Acosta PA-C [address] [place] [address] Assigned Surgical Provider 12/10/24 02/06/25 Purvi Jeong [facility] [address] [place] [address] [phone] Pharmacist Pharmacist Stopper Setter 01/03/25 Lucas Nuno MD [address] [place] [address] Assigned Surgical Provider 02/07/25 Meghan Cox [facility] [address] [place] [address] Pharmacist Pharmacist Stopper Setter 03/20/25 documented as of this encounter
--- OUTSIDE RECORDS SUMMARY | 2025-08-07 23:00 | XMS_ITS | Encounter Summary ---
Author Organization [place] Address [address] [facility] [place] [address] Care Team Providers Care Youth Care Specialist Name Role Phone Sarah Juares MD Primary Care Provider Unav ailable Lucas Nuno MD Unavailable +[phone] Mariana AcostaC Unavailable + [phone] Purvi Jeong [facility] Unavailable [phone] Lucas Nuno MD Unavailable [phone] Meghan Cox [facility] Unavailable [phone] Jose Tran MD Primary Care Provider + [phone] Encounter Details Date Type Department Care Team (Late st Contact Info) Description 11/15/2024 [facility] [place] [facility] [place] [address] [facility] [address] 4th [place] [address] Mariana Acosta PA-C [address] [facility] [address] [place] [address] Social History Tobacco Use Types Packs/Day Years Used Date Smoking Tobacco: Former Smokeless Tobacco: Never Alcohol Use Standard Drinks/Week Comments Not Currently 0 (1 standard drink = 0.6 oz pur e alcohol) rare PHQ-2 Answer Date Recorded PHQ-2 Score 0 11/15/2024 [place] Depression Scale Answer Date Recorded [place] Depression Score 1 07/06/2021 Last EPDS Self Harm Result Not on file 07/06 Adolescent Education Answer Date Record ed Getting School Help Needed Not on file 07/10 Comments No Sex and Gender Information Value Date Recorded Sex Assigned at Female 06/03/2022 7:36 AM CDT 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 Gender Identity Female 06/03/2022 7:36 AM CDT Sexual Orientation Straight 06/03/2022 7: 36 AM CDT documented as of this encounter Plan of Treatment Not on file documented as of this encounter Visit Diagnoses Not on filedocumented in this encounter Care Teams Youth Care Specialist Relationship Specialty Start Date End Date Sarah Juares MD PCP - General Family Medicine 03/13/25 08/06/25 [place] [address] [facility] [place] [address] PCP - General Family Medicine 08/07/25 Lucas Nuno MD [address] [phone] Assigned Surgical Provider 03/09/24 12/09/24 Mariana Acosta PA-C [address] [id number] Assigned Surgical Provider 12/10/24 02/06/25 Purvi Jeong [facility] [address] [place], [place] [phone] Pharmacist Pharmacist Financial Services Auditor 01/03/25 Lucas Nuno MD [address] [address] Assigned Surgical Provider 02/07/25 Meghan Cox RPH 9 [place] [address] Pharmacist Pharmacist Financial Services Auditor 03/20/25 documented as of this encounter
--- OUTSIDE RECORDS SUMMARY | 2025-08-07 23:00 | XMS_ITS | Encounter Summary ---
Author Organization [place] Address [address] [place] [address] Care Team Providers Care Gamer Name Role Phone Sarah Juares MD Primary Care Provider Unav ailable Lucas Nuno MD Unavailable +[phone] Mariana Acosta PA-C Unavailable + [phone] Purvi Jeong [facility] Unavailable [phone] Lucas Nuno MD Unavailable [phone] Meghan Cox [facility] Unavailable [phone] Jose Tran MD Primary Care Provider + [phone] Encounter Details Date Type Department Care Team (Late st Contact Info) Description 11/17/2024 [facility] [place] [facility] [address] [place] [address] Alyce [place] Social History Tobacco Use Types Packs/Day Years Used Date Smoking Tobacco: Former Smokeless Tobacco: Never Alcohol Use Standard Drinks/Week Comments Not Currently 0 (1 standard drink = 0.6 oz pur e alcohol) rare PHQ-2 Answer Date Recorded PHQ-2 Score 0 11/15/2024 [place] Depression Scale Answer Date Recorded [place] Depression Score 1 07/06/2021 Last EPDS Self Harm Result Not on file 07/06 Adolescent Education Answer Date Record ed Getting School Help Needed Not on file 07/10 Comments No Sex and Gender Information Value Date Recorded Sex Assigned at Female 06/03/2022 7:36 AM CDT 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 Gender Identity Female 06/03/2022 7:36 AM CDT Sexual Orientation Straight 06/03/2022 7: 36 AM CDT documented as of this encounter Plan of Treatment Not on file documented as of this encounter Visit Diagnoses Not on filedocumented in this encounter Care Teams Gamer Relationship Specialty Start Date End Date Sarah Juares MD PCP - General Family Medicine 03/13/25 08/06/25 [place] [address] [place] [address] PCP - General Family Medicine 08/07/25 Lucas Nuno MD [address] [place] [address] 273165 Assigned Surgical Provider 03/09/24 12/09/24 Mariana Acosta PA-C [address] [place] [address] [phone] Assigned Surgical Provider 12/10/24 02/06/25 Purvi Jeong [facility] [address] [place] [address] [phone] Pharmacist Pharmacist Assistant Professor Of Mathematics 01/03/25 Lucas Nuno MD [address] [place] [address] [phone] Assigned Surgical Provider 02/07/25 Meghan Cox [facility] [address] [place] [address] [phone] Pharmacist Pharmacist Assistant Professor Of Mathematics 03/20/25 documented as of this encounter
--- OUTSIDE RECORDS SUMMARY | 2025-08-07 23:00 | XMS_ITS | Encounter Summary ---
Author Organization [place] Address [address] [facility] [place] [address] Care Team Providers Care Tourist Escort Name Role Phone Mariana Acosta PA-C Unavailable + [phone] Sarah Juares MD Primary Care Provider Unav ailable Lucas Nuno MD Unavailable + Mariana Acosta PA-C Unavailable +[phone] Lucas Nuno MD Unavailable +- Mariana Acosta PA-C Unavailable +[phone] Purvi Jeong [facility] Unavailable Lucas Nuno MD Unavailable + Meghan Cox [facility] Unavailable [phone] Jose Tran MD Primary Care Provider + [phone] Encounter Details Date Type Department Care Team (Late st Contact Info) Description 05/10/2023 [facility] [place] [facility] [address] 4th [place] [address] Paulina Denny, RN Social History Tobacco Use Types Packs/Day Years Used Date Smoking Tobacco: Former Smokeless Tobacco: Never Alcohol Use Standard Drinks/Week Comments Not Currently 0 (1 standard drink = 0.6 oz pur e alcohol) rare PHQ-2 Answer Date Recorded PHQ-2 Score 0 05/12/2023 [place] Depression Scale Answer Date Recorded [place] Depression Score 1 07/06/2021 Last EPDS Self Harm Result Not on file 07/06 Comments No Sex and Gender Information Value Date Recorded Sex Assigned at Female 06/03/2022 7:36 AM CDT 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 [address] [address] Assigned Surgical Provider 01/08/24 03/08/24 Lucas Nuno MD [address] [place] [address] Assigned Surgical Provider 03/09/24 12/09/24 Mariana Acosta PA-C [address] [place] [address] Assigned Surgical Provider 12/10/24 02/06/25 Purvi Jeong Melody [address] [place] [address] Pharmacist Pharmacist Parts Coordinator 01/03/25 Lucas Nuno MD [address] [place] [address] Assigned Surgical Provider 02/07/25 Meghan Cox [facility] [address] [place] [address] Pharmacist Pharmacist Parts Coordinator 03/20/25 documented as of this encounter
--- OUTSIDE RECORDS SUMMARY | 2025-08-07 23:00 | XMS_ITS | Encounter Summary ---
Author Organization [place] Address [address] [facility] [address] Care Team Providers Care Deck Engine Operator Name Role Phone Sarah Juares MD Primary Care Provider Mariana ChadwickC Unavailable + [phone] Purvi Jeong [facility] Unavailable [phone] Lucas Nuno MD Unavailable +[phone] Meghan Cox [facility] Unavailable [phone] Jose Tran MD Primary Care Provider [phone] Encounter Details Date Type Department Care Team (Late st Contact Info) Description 02/02/2025 [facility] [place] [place] Medical Advice 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 Gender Identity Female 06/03/2022 7:36 AM CDT Sexual Orientation Straight 06/03/2022 7: 36 AM CDT documented as of this encounter Plan of Treatment Not on file documented as of this encounter Visit Diagnoses Not on filedocumented in this encounter Care Teams Deck Engine Operator Relationship Specialty Start Date End Date Sarah Juares MD PCP - General Family Medicine 03/13/25 08/06/25 [place] [address] [place] [address] PCP - General Family Medicine 08/07/25 Mraiana Acosta PA-C [address] [place] [address] Assigned Surgical Provider 12/10/24 02/06/25 Purvi Jeong [facility] [address] [place] [address] [phone] Pharmacist Pharmacist Microwave Engineer 01/03/25 Lucas Nuno MD [address] [place] [address] Assigned Surgical Provider 02/07/25 Meghan Cox, [facility] 9 [place] [address] Pharmacist Pharmacist Microwave Engineer 03/20/25 documented as of this encounter
--- OUTSIDE RECORDS SUMMARY | 2025-08-07 23:00 | XMS_ITS | Encounter Summary ---
Author Organization [place] Address [address] [facility] [place] [address] Care Team Providers Care Risk Management Manager Name Role Phone Sarah Juares MD Primary Care Provider Unav ailable Lucas Nuno MD Unavailable +[phone] Mariana Acosta PA-C Unavailable + [phone] Purvi Jeong [facility] Unavailable [phone] Lucas Nuno MD Unavailable [phone] Meghan Cox [facility] Unavailable [phone] Jose Tran MD Primary Care Provider + [phone] Encounter Details Date Type Department Care Team (Late st Contact Info) Description 03/30/2024 [facility] Medical Advice [facility] [address] [place] [address] [place] [address] Veronica Dickinson Social History Tobacco Use Types Packs/Day Years Used Date Smoking Tobacco: Former Smokeless Tobacco: Never Alcohol Use Standard Drinks/Week Comments Not Currently 0 (1 standard drink = 0.6 oz pur e alcohol) rare PHQ-2 Answer Date Recorded PHQ-2 Score 0 05/12/2023 [place] Depression Scale Answer Date Recorded [place] Depression Score 1 07/06/2021 Last EPDS Self Harm Result Not on file 07/06 Adolescent Education Answer Date Record ed Getting School Help Needed Not on file 07/10 Comments No Sex and Gender Information Value Date Recorded Sex Assigned at Female 06/03/2022 7:36 AM CDT 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 Gender Identity Female 06/03/2022 7:36 AM CDT Sexual Orientation Straight 06/03/2022 7: 36 AM CDT documented as of this encounter Plan of Treatment Not on file documented as of this encounter Visit Diagnoses Not on filedocumented in this encounter Care Teams Risk Management Manager Relationship Specialty Start Date End Date Sarah Juares MD PCP - General Family Medicine 03/13/25 08/06/25 [place] [address] [facility] [place] [address] PCP - General Family Medicine 08/07/25 Lucas Nuno MD [address] [place] [address] [phone] Assigned Surgical Provider 03/09/24 12/09/24 Mariana Acosta PA-C [address] [place] [address] [phone] Assigned Surgical Provider 12/10/24 02/06/25 Purvi Jeong [facility] [address] [place] [address] [phone] Pharmacist Pharmacist Parts Salesperson 01/03/25 Lucas Nuno MD [address] [place] [address] [phone] Assigned Surgical Provider 02/07/25 Meghan Cox [facility] [address] [place] [address] [phone] Pharmacist Pharmacist Parts Salesperson 03/20/25 documented as of this encounter
--- OUTSIDE RECORDS SUMMARY | 2025-08-07 23:00 | XMS_ITS | Encounter Summary ---
Author Organization [place] Address [address] [facility] [place] [address] Care Team Providers Care Food Checker Name Role Phone Sarah Juares MD Primary Care Provider Unav ailable Lucas Nuno MD Unavailable +[phone] Mariana Acosta PA-C Unavailable + [phone] Purvi Jeong [facility] Unavailable [phone] Lucas Nuno MD Unavailable [phone] Meghan Cox [facility] Unavailable [phone] Jose Tran MD Primary Care Provider + [phone] Encounter Details Date Type Department Care Team (Late st Contact Info) Description 03/15/2024 [facility] [place] Adv[place] [facility] [address] 4th [place] [address] Giuliana Masterson Social History Tobacco Use Types Packs/Day Years Used Date Smoking Tobacco: Former Smokeless Tobacco: Never Alcohol Use Standard Drinks/Week Comments Not Currently 0 (1 standard drink = 0.6 oz pur e alcohol) rare PHQ-2 Answer Date Recorded PHQ-2 Score 0 05/12/2023 [place] Depression Scale Answer Date Recorded [place] Depression Score 1 07/06/2021 Last EPDS Self Harm Result Not on file 07/06 Adolescent Education Answer Date Record ed Getting School Help Needed Not on file 07/10 Comments No Sex and Gender Information Value Date Recorded Sex Assigned at Female 06/03/2022 7:36 AM CDT 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 Gender Identity Female 06/03/2022 7:36 AM CDT Sexual Orientation Straight 06/03/2022 7: 36 AM CDT documented as of this encounter Plan of Treatment Not on file documented as of this encounter Visit Diagnoses Not on filedocumented in this encounter Care Teams Food Checker Relationship Specialty Start Date End Date Sarah Juares MD PCP - General Family Medicine 03/13/25 08/06/25 [place] [address] [facility] [place] [address] PCP - General Family Medicine 08/07/25 Lucas Nuno MD [address] [place] [address] Assigned Surgical Provider 03/09/24 12/09/24 Mariana Acosta PA-C [address] [place] [address] [phone] Assigned Surgical Provider 12/10/24 02/06/25 Purvi Jeong [facility] [address] [place] [address] [phone] Pharmacist Pharmacist Hunter Skin Diver 01/03/25 Lucas Nuno MD [address] [place] [address] [phone] Assigned Surgical Provider 02/07/25 Meghan Cox [facility] [address] [place] [address] [phone] Pharmacist Pharmacist Hunter Skin Diver 03/20/25 documented as of this encounter
--- OUTSIDE RECORDS SUMMARY | 2025-08-07 23:00 | XMS_ITS | Encounter Summary ---
Author Organization [place] Address [address] [place] [address] Care Team Providers Care Vegetable Loader Machine Operator Name Role Phone Mariana Acosta-C Unavailable + [phone] Sarah Juares MD Primary Care Provider Unav ailable Lucas Nuno MD Unavailable + Mariana Acosta-C Unavailable +[phone] Lucas Nuno MD Unavailable +[phone] Mariana Acosta-C Unavailable +[phone] Purvi Jeong [facility] Unavailable [phone] Lucas Nuno MD Unavailable + Meghan Cox [facility] Unavailable [phone] Jose Tran MD Primary Care Provider + [phone] Encounter Details Date Type Department Care Team (Late st Contact Info) Description 10/20/[address] [facility] [place] [address] [facility] [address] 4th [place] [address] Mariana Acosta PA-C [address] [facility] [address] [place] [address] Social History Tobacco Use Types Packs/Day Years Used Date Smoking Tobacco: Former Smokeless Tobacco: Never Alcohol Use Standard Drinks/Week Comments Not Currently 0 (1 standard drink = 0.6 oz pur e alcohol) rare PHQ-2 Answer Date Recorded PHQ-2 Score 0 05/12/2023 [place] Depression Scale Answer Date Recorded [place] Depression Score 1 07/06/2021 Last EPDS Self Harm Result Not on file 07/06 Adolescent Education Answer Date Record ed Getting School Help Needed Not on file 07/10 Comments No Sex and Gender Information Value Date Recorded Sex Assigned at Female 06/03/2022 7:36 AM CDT 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 Gender Identity Female 06/03/2022 7:36 AM CDT Sexual Orientation Straight 06/03/2022 7: 36 AM CDT documented as of this encounter Plan of Treatment Not on file documented as of this encounter Visit Diagnoses Not on filedocumented in this encounter Care Teams Vegetable Loader Machine Operator Relationship Specialty Start Date End Date Sarah Juares MD [address] [address] PCP - General Family Medicine 03/13/25 08/06/25 [place] [address] [place] [address] PCP - General Family Medicine 08/07/25 Mariana Acosta PA-C [address] [address] Assigned Surgical Provider 09/05/22 12/09/23 Lucas Nuno MD [address] [address] Assigned Surgical Provider 12/10/23 01/07/24 Mariana Acosta PA-C [address] [address] Assigned Surgical Provider 01/08/24 03/08/24 Lucas Nuno MD [address] [place] [address] Assigned Surgical Provider 03/09/24 12/09/24 Mariana Acosta PA-C [address] [address] Assigned Surgical Provider 12/10/24 02/06/25 Purvi Jeong Melody [address] [place] [address] Pharmacist Pharmacist Hog Sawyer 01/03/25 Lucas Nuno MD [address] [place] [address] Assigned Surgical Provider 02/07/25 Meghan Cox [facility] [address] [place] [address] Pharmacist Pharmacist Hog Sawyer 03/20/25 documented as of this encounter
--- OUTSIDE RECORDS SUMMARY | 2025-08-07 23:00 | XMS_ITS | Encounter Summary ---
Author Organization [place] Address [address] [facility] [place] [address] Care Team Providers Care Foreign Banknote Teller Trader Name Role Phone [facility] [place] Primary Care Provider Mariana Acosta PA-C Unavailable + [phone] Sarah Juares MD Primary Care Provider Unav ailable Lucas Nuno MD Unavailable +- Mariana Acosta PA-C Unavailable +[phone] Lucas Nuno MD Unavailable +-[phone] Mariana Acosta PA-C Unavailable +[phone] Purvi Jeong [facility] Unavailable [phone] Lucas Nuno MD Unavailable + Meghan Cox [facility] Unavailable [phone] Jose Tran MD Primary Care Provider + [phone] Encounter Details Date Type Department Care Team (Late st Contact Info) Description 02/09/2023 [facility] [place] [facility] [place] [facility] [address] 4th [place] [address] Paulina Denny, RN Social History Tobacco Use Types Packs/Day Years Used Date Smoking Tobacco: Former Smokeless Tobacco: Never Alcohol Use Standard Drinks/Week Comments Not Currently 0 (1 standard drink = 0.6 oz pur e alcohol) rare [place] Depression Scale Answer Date Recorded [place] Depression Score 1 07/06/2021 Last EPDS Self Harm Result Not on file 07/06 Comments No Sex and Gender Information Value Date Recorded Sex Assigned at Female 06/03/2022 7:36 AM CDT 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 Gender Identity Female 06/03/2022 7:36 AM [...] documented as of this encounter Care Teams Foreign Banknote Teller Trader Relationship Specialty Start Date End Date [facility] [address] [place] [address] PCP - General 01/02/14 03/23/23 Sarha Juares MD [address] [address] PCP - General Family Medicine 03/13/25 08/06/25 [place] [address] [place] [address] PCP - General Family Medicine 08/07/25 Mariana Acosta PA-C [address] [address] Assigned Surgical Provider 09/05/22 12/09/23 Lucas Nuno MD [address] [address] Assigned Surgical Provider 12/10/23 01/07/24 Mariana Acosta PA-C [address] [place] [address] Assigned Surgical Provider 01/08/24 03/08/24 Lucas Nuno MD [address] [place] [address] Assigned Surgical Provider 03/09/24 12/09/24 Mariana Acosta PA-C [address] [place] [address] Assigned Surgical Provider 12/10/24 02/06/25 Purvi Jeong [facility] [address] [place] [address] [phone] Pharmacist Pharmacist Immersion Metalcleaner 01/03/25 Lucas Nuno MD [address] [place] [address] Assigned Surgical Provider 02/07/25 Meghan Cox [facility] [address] [place] [address] Pharmacist Pharmacist Immersion Metalcleaner 03/20/25 documented as of this encounter
--- OUTSIDE RECORDS SUMMARY | 2025-08-07 23:00 | XMS_ITS | Encounter Summary ---
Author Organization [place] Address [address] [place] [address] Care Team Providers Care Office Machinery Or Equipment Installer Name Role Phone Sarah Juares MD Primary Care Provider Unav ailable Purvi Jeong [facility] Unavailable [phone] Lucas Nuno MD Unavailable [phone] Meghan Cox [facility] Unavailable [phone] Jose Tran MD Primary Care Provider [phone] Encounter Details Date Type Department Care Team (Late st Contact Info) Description 03/21/2025 My[facility] Medical Advice [facility] [address] 4th [place] [address] Anastasia Molina, RN Social History Tobacco Use Types Packs/Day Years Used Date Smoking Tobacco: Former Smokeless Tobacco: Never Alcohol Use Standard Drinks/Week Comments Not Currently 0 (1 standard drink = 0.6 oz pur e alcohol) rare PHQ-2 Answer Date Recorded PHQ-2 Score 0 02/22/2025 [place] Depression Scale Answer Date Recorded [place] Depression Score 1 07/06/2021 Last EPDS Self [...] AM CDT 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 Gender Identity Female 06/03/2022 7:36 AM CDT Sexual Orientation Straight 06/03/2022 7: 36 AM CDT documented as of this encounter Plan of Treatment Not on file documented as of this encounter Visit Diagnoses Not on filedocumented in this encounter Care Teams Office Machinery Or Equipment Installer Relationship Specialty Start Date End Date Sarah Juares MD PCP - General Family Medicine 03/13/25 08/06/25 [place] [address] [place] [address] PCP - General Family Medicine 08/07/25 Purvi Jeong [facility] 9 [place], [place] [phone] Pharmacist Pharmacist Cook Pickled Meat 01/03/25 Lucas Nuno MD [address] [place] [address] 660395 Assigned Surgical Provider 02/07/25 Meghan Cox RPH [address] [place] [address] [phone] Pharmacist Pharmacist Cook Pickled Meat 03/20/25 documented as of this encounter
--- OUTSIDE RECORDS SUMMARY | 2025-08-07 23:00 | XMS_ITS | Encounter Summary ---
Author Organization [place] Address [address] [place] [address] Care Team Providers Care Medical Instrument Cable Fabricator Name Role Phone Sarah Juares MD Primary Care Provider Unav ailable Purvi Jeong [facility] Unavailable [phone] Lucas Nuno MD Unavailable +[phone] Meghan Cox [facility] Unavailable [phone] Jose Tran MD Primary Care Provider [phone] Encounter Details Date Type Department Care Team (Late st Contact Info) Description 02/22/2025 MyC Medical Advice [facility] [address] 3rd [place] [address] Nahed Fay Social History Tobacco Use Types Packs/Day Years Used Date Smoking Tobacco: Former Smokeless Tobacco: Never Alcohol Use Standard Drinks/Week Comments Not Currently 0 (1 standard drink = 0.6 oz pur e alcohol) rare PHQ-2 Answer Date Recorded PHQ-2 Score 0 02/22/2025 [place] Depression Scale Answer Date Recorded [place] Depression Score 1 07/06/2021 Last EPDS Self [...] AM CDT Legal Sex Female 3:38 AM BEHAVIORAL HEALTH CARE COORDINATOR Gender Identity Female 06/03/2022 7:36 AM CDT Sexual Orientation Straight 06/03/2022 7: 36 AM CDT documented as of this encounter Plan of Treatment Not on file documented as of this encounter Visit Diagnoses Not on filedocumented in this encounter Care Teams Medical Instrument Cable Fabricator Relationship Specialty Start Date End Date Sarah Juares MD PCP - General Family Medicine 03/13/25 08/06/25 [place] [address] [place] [address] PCP - General Family Medicine 08/07/25 Purvi Jeong [facility] [address] [place] [address] [phone] Pharmacist Pharmacist Cad Administrator 01/03/25 Lucas Nuno MD [address] [place] [address] [phone] Assigned Surgical Provider 02/07/25 Meghan Cox Melody [address] [place] [address] [phone] Pharmacist Pharmacist Cad Administrator 03/20/25 documented as of this encounter
--- OUTSIDE RECORDS SUMMARY | 2025-08-07 23:01 | XMS_ITS | Encounter Summary ---
Author Organization [place] Address [facility] [place] [address] Care Team Providers Care Icd 9 Coder Name Role Phone [facility] Primary Care Provider Leatha Wagner APRN [facility] Unavailable +[phone] Mariana Acosta PA-C Unavailable + [phone] Sarah Juares MD Primary Care Provider Unav ailable Lucas Nuno MD Unavailable +- Mariana Acosta-C Unavailable +[phone] Lucas Nuno MD Unavailable + Mariana Acosta PA-C Unavailable +[phone] Purvi Jeong [facility] Unavailable [phone] Lucas Nuno MD Unavailable +- Meghan Cox [facility] Unavailable [phone] Jose Tran MD Primary Care Provider + [phone] Encounter Details Date Type Department Care Team (Late st Contact Info) Description 06/11/2022 [facility] [address] 4th [place] [address] Keena Valente Social History Tobacco Use Types Packs/Day Years Used Date Smoking Tobacco: Former Smokeless Tobacco: Never Alcohol Use Standard Drinks/Week Comments Not Currently 0 (1 standard drink = 0.6 oz pur e alcohol) rare [place] Depression Scale Answer Date Recorded [place] Depression Score 1 07/06/2021 Last EPDS Self Harm Result Not on file 07/06 Comments No Sex and Gender Information Value Date Recorded Sex Assigned at Female 06/03/2022 7:36 AM CDT 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 Female 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 Gender Identity Female 06/03/2022 7:36 AM CDT [...] documented as of this encounter Care Teams Icd 9 Coder Relationship Specialty Start Date End Date [facility], [facility] [place] [address] PCP - General 01/02/14 03/23/23 Sarah Juares MD [address] [place] [address] PCP - General Family Medicine 03/13/25 08/06/25 [place] [address] [place] [address] PCP - General Family Medicine 08/07/25 Leatha Wagner APRN [employer] [address] [place] [address]753 Assigned Surgical Provider 11/02/21 09/04/22 Mariana Acosta PA-C [address] [address] Assigned Surgical Provider 09/05/22 12/09/23 Lucas Nuno MD [address] [address] Assigned Surgical Provider 12/10/23 01/07/24 Mariana Acosta PA-C [address] [address] Assigned Surgical Provider 01/08/24 03/08/24 Lucas Nuno MD [address] [address] Assigned Surgical Provider 03/09/24 12/09/24 Mariana Acosta PA-C [address] [address] Assigned Surgical Provider 12/10/24 02/06/25 Purvi Jeong [facility] [address] [place] [address] [phone] Pharmacist Pharmacist Lens Assistant 01/03/25 Lucas Nuno MD [address] [address] Assigned Surgical Provider 02/07/25 Meghan Cox [facility] [address] [place] [address] Pharmacist Pharmacist Lens Assistant 03/20/25 documented as of this encounter
--- OUTSIDE RECORDS SUMMARY | 2025-08-07 23:01 | XMS_ITS | Encounter Summary ---
Author Organization [place] Address [address] [facility] [place] [address] Care Team Providers Care Internet Consultant Name Role Phone [facility] Primary Care Provider Leatha Wagner APRN [facility] Unavailable +[phone] Mariana Acosta PA-C Unavailable + [phone] Sarah Juares MD Primary Care Provider Unav ailable Lucas Nuno MD Unavailable +- Mariana Acosta-C Unavailable +[phone] Lucas Nuno MD Unavailable +- Mariana Acosta PA-C Unavailable +[phone] Purvi Jeong [facility] Unavailable [phone] Lucas Nuno MD Unavailable +- Meghan Cox [facility] Unavailable [phone] Jose Tran MD Primary Care Provider + [phone] Encounter Details Date Type Department Care Team (Late st Contact Info) Description 08/27/2022 [facility] [address] [place] [address] Xochitl Cooley Social History Tobacco Use Types Packs/Day Years Used Date Smoking Tobacco: Former Smokeless Tobacco: Never Alcohol Use Standard Drinks/Week Comments Not Currently 0 (1 standard drink = 0.6 oz pur e alcohol) rare [place] Depression Scale Answer Date Recorded [place] Depression Score 1 07/06/2021 Last EPDS Self Harm Result Not on file 07/06 Comments No Sex and Gender Information Value Date Recorded Sex Assigned at Female 06/03/2022 7:36 AM CDT 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 [place] [address] PCP - General 01/02/14 03/23/23 Sarah Juares MD [address] [place] [address] PCP - General Family Medicine 03/13/25 08/06/25 [place] [address] [place] [address] PCP - General Family Medicine 08/07/25 Leatha Wagner APRN HUMANITIES DEPARTMENT CHAIR [address] [place] [address] [phone] Assigned Surgical Provider 11/02/21 09/04/22 Mariana Acosta PA-C [address] [address] Assigned Surgical Provider 09/05/22 12/09/23 Lucas Nuno MD [address] [address] Assigned Surgical Provider 12/10/23 01/07/24 Mariana Acosta PA-C [address] [address] Assigned Surgical Provider 01/08/24 03/08/24 Lucas Nuno MD [address] [address] Assigned Surgical Provider 03/09/24 12/09/24 Mariana Acosta PA-C [address] [address] Assigned Surgical Provider 12/10/24 02/06/25 Purvi Jeong [facility] [address] [place] [address] Pharmacist Pharmacist Placement Director 01/03/25 Lucas Nuno MD [address] [address] Assigned Surgical Provider 02/07/25 Meghan Cox [facility] [address] [place] [address] Pharmacist Pharmacist Placement Director 03/20/25 documented as of this encounter
--- OUTSIDE RECORDS SUMMARY | 2025-08-07 23:01 | XMS_ITS | Encounter Summary ---
Author Organization [place] Address [facility] [place] [address] Care Team Providers Care Surface Room Shop Optician Name Role Phone [facility] [place] Primary Care Provider Leatha Wagner APRN [facility] Unavailable [phone] Mariana Acosta PA-C Unavailable + [phone] Sarah Juares MD Primary Care Provider Unav ailable Lucas Nuno MD Unavailable +- Mariana Acosta-C Unavailable +[phone] Lucas Nuno MD Unavailable + Mariana Acosta PA-C Unavailable +[phone] Purvi Jeong [facility] Unavailable [phone] Lucas Nuno MD Unavailable +- Meghan Cox [facility] Unavailable [phone] Jose Tran MD Primary Care Provider + [phone] Encounter Details Date Type Department Care Team (Late st Contact Info) Description 07/10/2022 [facility] [address] 4th [place] [address] Lucas Nuno MD [address] [facility] [address] [phone] Social History Tobacco Use Types Packs/Day Years Used Date Smoking Tobacco: Former Smokeless Tobacco: Never Alcohol Use Standard Drinks/Week Comments Not Currently 0 (1 standard drink = 0.6 oz pur e alcohol) rare [place] Depression Scale Answer Date Recorded [place] Depression Score 1 07/06/2021 Last EPDS Self Harm Result Not on file 07/06 Comments No Sex and Gender Information Value Date Recorded Sex Assigned at Female 06/03/2022 7:36 AM CDT Legal Sex Female 3:38 AM ENGINE MONITOR Gender Identity Female 06/03/2022 7:36 AM CDT [...] documented as of this encounter Care Teams Surface Room Shop Optician Relationship Specialty Start Date End Date [facility] [place] [address] PCP - General 01/02/14 03/23/23 Sarah Juares MD [address] [address] PCP - General Family Medicine 03/13/25 08/06/25 [place] [address] [place] [address] PCP - General Family Medicine 08/07/25 Leatha Wagner APRN QA TEST ANALYST [address] [place] [address] Assigned Surgical Provider 11/02/21 09/04/22 Mariana Acosta PA-C [address] [address] Assigned Surgical Provider 09/05/22 12/09/23 Lucas Nuno MD [address] [address] Assigned Surgical Provider 12/10/23 01/07/24 Mariana Acosta PA-C [address] [address] Assigned Surgical Provider 01/08/24 03/08/24 Lucas Nuno MD [address] 596525 Assigned Surgical Provider 03/09/24 12/09/24 Mariana Acosta PA-C [address] [address] Assigned Surgical Provider 12/10/24 02/06/25 Purvi Jeong [facility] [address] [place], [place] [phone] Pharmacist Pharmacist Assistant Family Teacher 01/03/25 Lucas Nuno MD [address] [address] Assigned Surgical Provider 02/07/25 Meghan Cox Mel[address] [place] [address] Pharmacist Pharmacist Assistant Family Teacher 03/20/25 documented as of this encounter
--- OUTSIDE RECORDS SUMMARY | 2025-08-07 23:01 | XMS_ITS | Encounter Summary ---
Author Organization [place] Address [facility] [place] [address] Care Team Providers Care Interim Controller Name Role Phone [facility] [place] Primary Care Provider Leatha Wagner APRN [facility] Unavailable +[phone] Mariana Acosta PA-C Unavailable + [phone] Sarah Juares MD Primary Care Provider Unav ailable Lucas Nuno MD Unavailable +- Mariana Acosta-C Unavailable +[phone] Lucas Nuno MD Unavailable + Mariana Acosta PA-C Unavailable +[phone] Purvi Jeong [facility] Unavailable [phone] Lucas Nuno MD Unavailable +- Meghan Cox [facility] Unavailable [phone] Jose Tran MD Primary Care Provider + [phone] Encounter Details Date Type Department Care Team (Late st Contact Info) Description 09/02/2022 [facility] [address] 4th [place] [address] Zelalem Giuliana Social History Tobacco Use Types Packs/Day Years Used Date Smoking Tobacco: Former Smokeless Tobacco: Never Alcohol Use Standard Drinks/Week Comments Not Currently 0 (1 standard drink = 0.6 oz pur e alcohol) rare [place] Depression Scale Answer Date Recorded [place] Depression Score 1 07/06/2021 Last EPDS Self Harm Result Not on file 07/06 Comments No Sex and Gender Information Value Date Recorded Sex Assigned at Female 06/03/2022 7:36 AM CDT 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, [facility] [address] [place] [address] PCP - General 01/02/14 03/23/23 Sarah Juares MD [address] [place] [address] PCP - General Family Medicine 03/13/25 08/06/25 [place] [address] [place] [address] PCP - General Family Medicine 08/07/25 Leatha Wagner APRN SURGICAL ONCOLOGIST [address] [place] [address] [phone] Assigned Surgical Provider 11/02/21 09/04/22 Mariana Acosta PA-C [address] [address] Assigned Surgical Provider 09/05/22 12/09/23 Lucas Nuno MD [address] [address] Assigned Surgical Provider 12/10/23 01/07/24 Mariana Acosta PA-C [address] [address] Assigned Surgical Provider 01/08/24 03/08/24 Lucas Nuno MD [address] [address] Assigned Surgical Provider 03/09/24 12/09/24 Mariana Acosta PA-C [address] [address] Assigned Surgical Provider 12/10/24 02/06/25 Purvi Jeong [facility] [address] [place] [address] Pharmacist Pharmacist District Commercial Superintendent 01/03/25 Lucas Nuno MD [address] [address] Assigned Surgical Provider 02/07/25 Meghan Cox [facility] [address] [place] [address] Pharmacist Pharmacist District Commercial Superintendent 03/20/25 documented as of this encounter
--- OUTSIDE RECORDS SUMMARY | 2025-08-07 23:01 | XMS_ITS | Clinical Summary ---
Author Organization [employer] Address [address] [facility] [place] [address] Care Team Providers Care Outsole Paraffiner Name Role Phone Provider, No Primary Primary [...] on file Legal Sex Female 8:59 PM JOB DEVELOPER Gender Identity Not on file Sexual Orientation Not on file Last Filed Vital Signs Vital Sign Reading Time Taken Comments Blood Pressure 123/87 11/14/2023 9:14 AM JOB DEVELOPER Pulse 90 11/14/2023 9:14 AM JOB DEVELOPER Temperature 36.9 C (98.5 F) 11/14/2023 9:14 AM JOB DEVELOPER Respiratory Rate - - Oxygen Saturation 98% 11/14/2023 9:14 AM JOB DEVELOPER Inhaled Oxygen Concentration - - Weight 122.9 [...] 08/08/2010 08/12/2010 7:4 4 AM CDT Narrative [facility] - 08/06/2011 1:34 AM CDT RUN DATE: 08/06/11 [facility] PAGE 1 RUN TIME: [address] [place] [address] RUN USER: [employer] CYTOLOGY REPORT ----- ------- PATIENT: KALEB ALEMAN LOC: XSBC U #: [id number] : 89 AGE/SX: 15/F ROOM: RE08/08/[address]: Tom MASON,Angel Kane STATUS: REG REF BED: DIS: ----- ------- SPEC #: [id number] RECD: 08/12/10 STATUS: RONI SAMUELS #: [id number] MELANIE: 08/08/10- SUBM DR: Angel Santos MD ENTERED: 08/12/10 SP TYPE: THINPREP OTHR DR: ORDERED: [id number], THINPREP PAP PAP CLINICAL DATA LMP: 07-21-10 : NO HORMONE THERAPY: NO PREVIOUS SMEAR: NO PT. PHONE #: [phone] PT. ADDRESS: [address] [address], [place], [place] CYTOLOGY RESULTS SPECIMEN ADEQUACY: SATISFACTORY FOR EVALUATION. RESULTS: NEGATIVE FOR INTRAEPITHELIAL LESION OR MALIGNANCY. Signed Electronically Signed JAKE TERAN 08/12/10 ----- ------- END OF REPORT Procedure Note 08/08/2011 RUN DATE: 08/06/11 [facility] 1 RUN TIME: [address] [place] [address] RUN USER: [employer] CYTOLOGY REPORT ----- ------- PATIENT: KALEB ALEMAN LOC: XSBCU #: [id number] : 89 AGE/SX: 15/F ROOM:RE08/08/[address]: Angel Santos MD STATUS: REG REF BED:DIS: ----- ------- SPEC #: [id number] RECD: 08/12/10 STATUS: MATT #: [id number] MELANIE: 08/08/10- SUBM DR: Pop Santos MD. ENTERED: 08/12/10 SP TYPE: THINPREP OTHR DR: ORDERED: [id number], THINPREP PAP PAP CLINICAL DATA LMP: 07-21-10 : NO HORMONE THERAPY: NO PREVIOUS SMEAR: NO PT. PHONE #: [phone] PT. ADDRESS: [address], [place] CYTOLOGY RESULTS SPECIMEN ADEQUACY: SATISFACTORY FOR EVALUATION. RESULTS: NEGATIVE FOR INTRAEPITHELIAL LESION OR MALIGNANCY. Signed Electronically Signed JAKE TERAN 08/12/10 ----- ------- END OF REPORT us Angel Santos MD SUPERVISOR LAST MODEL DEPARTMENT CYTOLOGY Final Resul t [address] [address] from Last 3 Months or Most Recently Relevant to Health Maintenance Insurance [facility] Care Teams Outsole Paraffiner Relationship Specialty Start Date End Date Provider, No Primary . [place] PURI [address] PCP - General 01/31/16 Additional Source Comments PLEASE NOTE: Replies to this message will not be received.[facility]
--- OUTSIDE RECORDS SUMMARY | 2025-08-07 23:01 | XMS_ITS | Encounter Summary ---
Author Organization [place] Address [address] [place] [address] Care Team Providers Care Maternity Floor Supervisor Name Role Phone Sarah Juares MD Primary Care Provider Unav ailable Purvi Jeong [facility] Unavailable [phone] Lucas Nuno MD Unavailable [phone] Meghan Cox [facility] Unavailable [phone] Jose Tran MD Primary Care Provider [phone] Encounter Details Date Type Department Care Team (Late st Contact Info) Description 05/06/2025 MyC Medical Advice [facility] [address] [facility] [address] 4th [place] [address] Mariana Acosta PA-C [address] [facility] [address] [place], [place] 146055 Social History Tobacco Use Types Packs/Day Years Used Date Smoking Tobacco: Former Smokeless Tobacco: Never Alcohol Use Standard Drinks/Week Comments Not Currently 0 (1 standard drink = 0.6 oz pur e alcohol) rare PHQ-2 Answer Date Recorded PHQ-2 Score 0 02/22/2025 [place] Depression Scale Answer Date Recorded [place] Depression Score 1 07/06/2021 Last EPDS Self [...] AM CDT 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 Gender Identity Female 06/03/2022 7:36 AM CDT Sexual Orientation Straight 06/03/2022 7: 36 AM CDT documented as of this encounter Plan of Treatment Not on file documented as of this encounter Visit Diagnoses Not on filedocumented in this encounter Care Teams Maternity Floor Supervisor Relationship Specialty Start Date End Date Sarah Juares MD PCP - General Family Medicine 03/13/25 08/06/25 [place] [address] [place] [address] PCP - General Family Medicine 08/07/25 Purvi Jeong RPH [address] [place] [address] Pharmacist Pharmacist Veterinary Epidemiologist 01/03/25 Lucas Nuno MD [address] [place] [address] Assigned Surgical Provider 02/07/25 Meghan Cox RPH [address] [place] [address] Pharmacist Pharmacist Veterinary Epidemiologist 03/20/25 documented as of this encounter
--- OUTSIDE RECORDS SUMMARY | 2025-08-07 23:01 | XMS_ITS | Encounter Summary ---
Author Organization [place] Address [facility] [place] [address] Care Team Providers Care Pile Operator Name Role Phone [facility] [place] Primary Care Provider Leatha Wagner APRN [facility] Unavailable +[phone] Mariana Acosta PA-C Unavailable + [phone] Sarah Juares MD Primary Care Provider Unav ailable Lucas Nuno MD Unavailable +- Mariana Acosta-C Unavailable +[phone] Lucas Nuno MD Unavailable + Mariana Acosta PA-C Unavailable +[phone] Purvi Jeong [facility] Unavailable [phone] Lucas Nuno MD Unavailable +- Meghan Cox [facility] Unavailable [phone] Jose Tran MD Primary Care Provider + [phone] Encounter Details Date Type Department Care Team (Late st Contact Info) Description 08/27/2022 [facility] [address] 4th [place] [address] Mariana Acosta PA-C [address] 319[address] Social History Tobacco Use Types Packs/Day Years Used Date Smoking Tobacco: Former Smokeless Tobacco: Never Alcohol Use Standard Drinks/Week Comments Not Currently 0 (1 standard drink = 0.6 oz pur e alcohol) rare [place] Depression Scale Answer Date Recorded [place] Depression Score 1 07/06/2021 Last EPDS Self Harm Result Not on file 07/06 Comments No Sex and Gender Information Value Date Recorded Sex Assigned at Female 06/03/2022 7:36 AM CDT 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 Gender Identity Female 06/03/2022 7:36 AM CDT [...] documented as of this encounter Care Teams Pile Operator Relationship Specialty Start Date End Date [facility], [place] [address] [place] [address] PCP - General 01/02/14 03/23/23 Sraah Juares MD [address] [address] PCP - General Family Medicine 03/13/25 08/06/25 [place] [address] [place] [address] PCP - General Family Medicine 08/07/25 Leatha Wagner APRN PALEOBOTANIST [address] [place] [address] Assigned Surgical Provider 11/02/21 09/04/22 Mariana Acosta PA-C [address] [address] [address] Assigned Surgical Provider 09/05/22 12/09/23 Lucas Nuno MD [address] [address] [address] Assigned Surgical Provider 12/10/23 01/07/24 Mariana Acosta PA-C [address] [address] [address] Assigned Surgical Provider 01/08/24 03/08/24 Lucas Nuno MD [address] [address] [address] Assigned Surgical Provider 03/09/24 12/09/24 Mariana Acosta PA-C [address] [address] [address] Assigned Surgical Provider 12/10/24 02/06/25 Purvi Jeong [facility] [address] [place] [address] Pharmacist Pharmacist Extraction Operator 01/03/25 Lucas Nuno MD [address] [address] [address] Assigned Surgical Provider 02/07/25 Meghan Cox [facility] [address] [place] [address] 187075 Pharmacist Pharmacist Extraction Operator 03/20/25 documented as of this encounter
--- OUTSIDE RECORDS SUMMARY | 2025-08-07 23:01 | XMS_ITS | Encounter Summary ---
Author Organization [place] Address [address] [place] [address] Care Team Providers Care Mouse Breeder Name Role Phone Sarah Juares MD Primary Care Provider Unav ailable Purvi Jeong [facility] Unavailable [phone] Lucas Nuno MD Unavailable [phone] Meghan Cox [facility] Unavailable [phone] Jose Tran MD Primary Care Provider [phone] Encounter Details Date Type Department Care Team (Late st Contact Info) Description 03/29/2025 MyC Medical Advice [facility] [place] [id number] [facility] [address]th [place] [address] Lucas Nuon MD 420 [facility] [address] [place] [address] Social History Tobacco Use Types Packs/Day Years Used Date Smoking Tobacco: Former Smokeless Tobacco: Never Alcohol Use Standard Drinks/Week Comments Not Currently 0 (1 standard drink = 0.6 oz pur e alcohol) rare PHQ-2 Answer Date Recorded PHQ-2 Score 0 02/22/2025 [place] Depression Scale Answer Date Recorded [place] Depression Score 1 07/06/2021 Last EPDS Self [...] AM CDT 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 Gender Identity Female 06/03/2022 7:36 AM CDT Sexual Orientation Straight 06/03/2022 7: 36 AM CDT documented as of this encounter Plan of Treatment Not on file documented as of this encounter Visit Diagnoses Not on filedocumented in this encounter Care Teams Mouse Breeder Relationship Specialty Start Date End Date Sarah Juares MD PCP - General Family Medicine 03/13/25 08/06/25 [place] [address] [place] [address] PCP - General Family Medicine 08/07/25 Purvi Jeong RPH [address] [place] [address] Pharmacist Pharmacist Major Gifts Director 01/03/25 Lucas Nuno MD [address] [place] [address] Assigned Surgical Provider 02/07/25 Meghan Cox RPH [address] [place] [address] Pharmacist Pharmacist Major Gifts Director 03/20/25 documented as of this encounter
--- OUTSIDE RECORDS SUMMARY | 2025-08-07 23:01 | XMS_ITS | Encounter Summary ---
Author Organization [place] Address [id number] [place] [address] Care Team Providers Care Police Dispatcher Name Role Phone [facility] Primary Care Provider Leatha Wagner APRN [facility] Unavailable [phone] Mariana Acosta PA-C Unavailable + [phone] Sarah Juares MD Primary Care Provider Unav ailable Lucas Nuno MD Unavailable +- Mariana Acosta-C Unavailable [phone] Lucas Nuno MD Unavailable + Mariana Acosta PA-C Unavailable [phone] Purvi Jeong [facility] Unavailable [phone] Lucas Nuno MD Unavailable +- Meghan Cox [facility] Unavailable [phone] Jose Tran MD Primary Care Provider + [phone] Encounter Details Date Type Department Care Team (Late st Contact Info) Description 08/24/2022 [facility] [address] [place] [address] Rita Gillespie, EMT Social History Tobacco Use Types Packs/Day Years Used Date Smoking Tobacco: Former Smokeless Tobacco: Never Alcohol Use Standard Drinks/Week Comments Not Currently 0 (1 standard drink = 0.6 oz pur e alcohol) rare [place] Depression Scale Answer Date Recorded [place] Depression Score 1 07/06/2021 Last EPDS Self Harm Result Not on file 07/06 Comments No Sex and Gender Information Value Date Recorded Sex Assigned at Female 06/03/2022 7:36 AM CDT 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 [address] [place] [address] PCP - General 01/02/14 03/23/23 Sarah Juares MD [address] [place] [address] PCP - General Family Medicine 03/13/25 08/06/25 [place] [address] [place] [address] PCP - General Family Medicine 08/07/25 Leatha Wagner APRN HOSPITAL[facility] A[facility] [address] [place] [address] [phone] Assigned Surgical Provider 11/02/21 09/04/22 Mariaan Acosta PA-C [address] [address] Assigned Surgical Provider 09/05/22 12/09/23 Lucas Nuno MD [address] [facility] [address] [address] Assigned Surgical Provider 12/10/23 01/07/24 Mariana Acosta PA-C [address] [address] Assigned Surgical Provider 01/08/24 03/08/24 Lucas Nuno MD [address] [address] Assigned Surgical Provider 03/09/24 12/09/24 Mariana Acosta PA-C [address] [address] Assigned Surgical Provider 12/10/24 02/06/25 Purvi Jeong [facility] [address] [place] [phone] Pharmacist Pharmacist Field Rep 01/03/25 Lucas Nuno MD [address] [address] Assigned Surgical Provider 02/07/25 Meghan Cox [facility] [address] [place] [address] Pharmacist Pharmacist Field Rep 03/20/25 documented as of this encounter
--- OUTSIDE RECORDS SUMMARY | 2025-08-07 23:01 | XMS_ITS | Encounter Summary ---
Author Organization [place] Address [facility] [place] [address] Care Team Providers Care Patient Care Nursing Assistant Name Role Phone [facility] [place] Primary Care Provider Leatha Wagner APRN [facility] Unavailable [phone] Mariana Acosta PA-C Unavailable + [phone] Sarah Juares MD Primary Care Provider Unav ailable Lucas Nuno MD Unavailable +- Mariana Acosta-C Unavailable [phone] Lucas Nuno MD Unavailable + Mariana Acosta PA-C Unavailable +[phone] Purvi Jeong [facility] Unavailable [phone] Lucas Nuno MD Unavailable +- Meghan Cox [facility] Unavailable [phone] Jose Tran MD Primary Care Provider + [phone] Encounter Details Date Type Department Care Team (Late st Contact Info) Description 06/10/2022 [facility] [address] [place] [address] Giuliana Masterson Social History Tobacco Use Types Packs/Day Years Used Date Smoking Tobacco: Former Smokeless Tobacco: Never Alcohol Use Standard Drinks/Week Comments Not Currently 0 (1 standard drink = 0.6 oz pur e alcohol) rare [place] Depression Scale Answer Date Recorded [place] Depression Score 1 07/06/2021 Last EPDS Self Harm Result Not on file 07/06 Comments No Sex and Gender Information Value Date Recorded Sex Assigned at Female 06/03/2022 7:36 AM CDT 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 Female 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 Gender Identity Female 06/03/2022 7:36 AM CDT [...] documented as of this encounter Care Teams Patient Care Nursing Assistant Relationship Specialty Start Date End Date [facility] [place] [address] PCP - General 01/02/14 03/23/23 Sarah Juares MD [address] [place] [address] PCP - General Family Medicine 03/13/25 08/06/25 [place] [address] [place] [address] PCP - General Family Medicine 08/07/25 Leatha Wagner APRN [employer] [address] [place] [address] Assigned Surgical Provider 11/02/21 09/04/22 Mariana Acosta PA-C [address] [address] Assigned Surgical Provider 09/05/22 12/09/23 Lucas Nuno MD [address] [address] Assigned Surgical Provider 12/10/23 01/07/24 Mariana Acosta PA-C [address] [address] Assigned Surgical Provider 01/08/24 03/08/24 Lucas Nuno MD [address] [address] Assigned Surgical Provider 03/09/24 12/09/24 Mariana Acosta PA-C [address] [place] [address] Assigned Surgical Provider 12/10/24 02/06/25 Purvi Jeong [facility] [address] [place] [address] Pharmacist Pharmacist District Manager 01/03/25 Lucas Nuno MD [address] [place] [address] Assigned Surgical Provider 02/07/25 Meghan Cox [facility] [address] [place] [address] Pharmacist Pharmacist District Manager 03/20/25 documented as of this encounter
--- OUTSIDE RECORDS SUMMARY | 2025-08-07 23:01 | XMS_ITS | Encounter Summary ---
Author Organization [place] Address [address] [place] [address] Care Team Providers Care Plastic Cnc Machine Operator Name Role Phone Sarah Juares MD Primary Care Provider Unav ailable Purvi Jenog [facility] Unavailable [phone] Lucas Nuno MD Unavailable [phone] Meghan Cox [facility] Unavailable [phone] Jose Tran MD Primary Care Provider [phone] Encounter Details Date Type Department Care Team (Late st Contact Info) Description 03/23/2025 MyC Medical Advice [facility] General Surgery [facility] [place] [address] [facility] [address]th [place] [address] Lucas Nuno MD 420 [facility] [address] [place] [address] Social History Tobacco Use Types [...] AM CDT 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 Gender Identity Female 06/03/2022 7:36 AM CDT Sexual Orientation Straight 06/03/2022 7: 36 AM CDT documented as of this encounter Plan of Treatment Not on file documented as of this encounter Visit Diagnoses Not on filedocumented in this encounter Care Teams Plastic Cnc Machine Operator Relationship Specialty Start Date End Date Sarah Juares MD PCP - General Family Medicine 03/13/25 08/06/25 [place] [address] [place] [address] PCP - General Family Medicine 08/07/25 Purvi Jeong RPH [address] [place] [address] Pharmacist Pharmacist Food And Beverage Server 01/03/25 Lucas Nuno MD [address] [place] [address] Assigned Surgical Provider 02/07/25 Meghan Cox RPH [address] [place] [address] Pharmacist Pharmacist Food And Beverage Server 03/20/25 documented as of this encounter
--- OUTSIDE RECORDS SUMMARY | 2025-08-07 23:01 | XMS_ITS | Encounter Summary ---
Author Organization [place] Address [address] [place] [address] Care Team Providers Care Fish Boning Machine Feeder Name Role Phone Sarah Juares MD Primary Care Provider Unav ailable Purvi Jeong [facility] Unavailable [phone] Lucas Nuno MD Unavailable [phone] Meghan Cox [facility] Unavailable [phone] Jose Tran MD Primary Care Provider [phone] Encounter Details Date Type Department Care Team (Late st Contact Info) Description 04/12/2025 MyC Medical Advice [facility] General Surgery Clinic [place] [address] [facility] [address] 4th [place] [address] Lucas Nuno MD 420 [facility] [address] [place] [address] Social History Tobacco Use Types Packs/Day Years Used Date Smoking Tobacco: Former Smokeless Tobacco: Never Alcohol Use Standard Drinks/Week Comments Not Currently 0 (1 standard drink = 0.6 oz pur e alcohol) rare PHQ-2 Answer Date Recorded PHQ-2 Score 0 02/22/2025 [place] Depression Scale Answer Date Recorded [place] Depression Score 1 07/06/2021 Last EPDS Self [...] AM CDT 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 Gender Identity Female 06/03/2022 7:36 AM CDT Sexual Orientation Straight 06/03/2022 7: 36 AM CDT documented as of this encounter Plan of Treatment Not on file documented as of this encounter Visit Diagnoses Not on filedocumented in this encounter Care Teams Fish Boning Machine Feeder Relationship Specialty Start Date End Date Sarah Juares MD PCP - General Family Medicine 03/13/25 08/06/25 [place] [address] [place] [address] PCP - General Family Medicine 08/07/25 Purvi Jeong RPH [address] [place] [address] Pharmacist Pharmacist Wallcovering Texturer 01/03/25 Lucas Nuno MD [address] [place] [address] Assigned Surgical Provider 02/07/25 Meghan Cox RPH [address] [place] [address] Pharmacist Pharmacist Wallcovering Texturer 03/20/25 documented as of this encounter
--- NOTE | 2025-08-07 23:25 | ED.OVERDOSE ---
HPI - Overdose General Time Seen by Provider: 23:25 Date Seen: 08/07/25 Chief Complaint: Overdose Stated Complaint: took to many meds on accident Time Seen by Provider: 08/07/25 23:25 Source: patient Mode of arrival: ambulatory History of Present Illness HPI Narrative: Karo is a 30 yo female who presents to the ED for evaluation of accidental overdose. 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 Patient currently is on 120 mg of Lovenox twice daily. Patient reports that this afternoon around 5:00 p.m. she had 1-1/2 drinks which she reports as strong drinks (martinis). Patient states that this evening around 9-930 she did take a dose of her tizanidine as well as her Zyprexa within 30 minutes of each other. Patient reports shortly afterwards approximately 20 minutes later she felt extremely weak, lightheaded, cotton mouth, difficulty talking, and slurring her words. Patient reports that she feels as if she is high. Patient denies any other medications tonight. Patient denies any vision changes, weakness in her extremities, tingling, numbness, denies any new pain or swelling. Patient reports that she was concerned that maybe she was having another clot. Patient states that with her clots she typically gets pain and swelling in her legs or chest pain and difficulty breathing if she has a PE. Patient currently denies any chest pain, shortness of breath, back pain, abdominal pain. Related Data Home Medications ?Medication ?Instructions ?Recorded ?Confirmed ferrous sulfate 325 mg (65 mg 325 mg PO DAILY 05/18/24 08/01/25 iron) tablet (Feosol) escitalopram oxalate 10 mg tablet 10 mg PO DAILY 05/27/25 08/01/25 tizanidine 4 mg tablet 4 mg PO Q6H PRN muscle spasm 05/27/25 08/01/25 cyanocobalamin (vitamin B-12) 1,000 mcg sublingual DAILY 07/30/25 08/01/25 1,000 mcg sublingual tablet doxycycline monohydrate 100 mg 100 mg PO DAILY 07/30/25 08/01/25 capsule enoxaparin 150 mg/mL subcutaneous 150 mg subcut Q12H 07/30/25 08/01/25 syringe ascorbic acid (vitamin C) 1,000 mg 1 g PO DAILY 08/01/25 08/01/25 tablet folic acid 1 mg tablet 2 mg PO BID 08/01/25 08/01/25 multivitamin (Daily Multi-Vitamin 1 tab PO DAILY 08/01/25 08/01/25 tablet) Allergies Allergy/AdvReac Type Severity Reaction Status Date / Time azithromycin Allergy Unknown Verified 07/30/25 20:13 hydrocodone Allergy Unknown Verified 07/30/25 20:13 tramadol Allergy Unknown Verified 07/30/25 20:13 Review of Systems Narrative: Past medical history, past surgical history, medications, allergies, family history, and social history were reviewed with the patient. No additional pertinent items. A medically appropriate review of systems was performed with pertinent positives and negatives noted in HPI, all other systems negative. 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9 - Obesity, unspecified (ICD-10) Mesenteric lymphadenitis ?I88.0 - Nonspecific mesenteric lymphadenitis (ICD-10) Rosacea ?L71.9 - Rosacea, unspecified (ICD-10) DVT (deep venous thrombosis) ?I82.409 - Acute embolism and thrombosis of unspecified deep veins of unspecified lower extremity (ICD-10) Pulmonary emboli ?I26.99 - Other pulmonary embolism without acute cor pulmonale (ICD-10) Surgical History (Updated 08/01/25 @ 00:39 by Steph Navarrete MD) History of esophagogastroduodenoscopy (EGD) ?Z98.890 - Other specified postprocedural states (ICD-10) S/P laparoscopic sleeve gastrectomy ?Z98.84 - Bariatric surgery status (ICD-10) Family History (Updated 08/01/25 @ 00:40 by Setph Navarrete MD) Other Colon cancer Diabetes High blood pressure High cholesterol Stroke Social History (Updated 08/01/25 @ 00:40 by Steph Navarrete MD) 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 Denies tobacco, alcohol or recreational drug use. What is your current living situation?: I presently have a place to live Problems where you live: no known problems In the past 12 months, utilities in danger of being shut off: no In past 12 months, lack of transportation kept you from medical appts, meetings, work, or getting things needed for daily living: no In the past 12 mos, have been you worried that your food would run out before you had money to buy more?: never true In the past 12 mos, the food you bought just didn't last and you didn't have money to buy more?: never true Smoking Status: Former smoker Do you use any of these nicotine containing products: None Nicotine containing products detail: Quit over 5 years ago How often do you have a drink containing alcohol: monthly or less AUDIT-C Alcohol total score: 1 Non-prescribed substance use: denies use How often does anyone, including family, friends and others, physically hurt you: never How often does anyone, including family, friends and others, insult or talk down to you: never How often does anyone, including family, friends and others, threaten you with harm: never How often does anyone, including family, friends and others, scream or curse at you: never Exam Narrative: Exam Narrative: General: Afebrile, mild distress HEENT: Normocephalic, atraumatic, conjunctiva normal. MMM Neck: non-tender, supple Cardio: regular rate. regular rhythm Resp: Normal work of breathing, no respiratory distress, lungs clear bilaterally, no wheezing, rhonchi, rales Chest/Back: no visual signs of trauma, no midline tenderness, no CVA tenderness Abdomen: soft, non distension, no tenderness, no peritoneal signs Neuro: alert and fully oriented. CN II-XII intact. Normal strength and sensation in all extremities. MSK: no deformities. Normal range of motion Integumentary/Skin: no rash visualized, normal color Psych: normal affect, normal behavior Const: Vital Signs, click to edit/add: Vital Signs - 24 hr 08/07/25 22:56 08/07/25 23:51 08/08/25 00:08 Temperature 96.0 F L Pulse Rate 70 68 Pulse Rate [Right Pulse Oximeter] 78 Respiratory Rate 18 16 17 Blood Pressure 89/43 L 90/51 L Blood Pressure [Ri ght Upper Arm] 70/41 L Pulse Oximetry 95 92 93 Oxygen Delivery Me thod Room Air Oxygen Flow Rate 08/08/25 00:18 08/08/25 00:24 08/08/25 00:35 Temperature Pulse Rate 63 61 Pulse Rate [Right Pulse Oximeter] Respiratory Rate 17 17 Blood Pressure 92/54 L 92/53 L Blood Pressure [Ri ght Upper Arm] Pulse Oximetry 88 92 92 Oxygen Delivery Me thod Nasal Cannula Oxygen Flow Rate 1 08/08/25 00:38 08/08/25 00:57 08/08/25 01:18 Temperature Pulse Rate 60 60 61 Pulse Rate [Right Pulse Oximeter] Respiratory Rate 16 17 16 Blood Pressure 95/60 92/59 L 83/61 L Blood Pressure [Ri ght Upper Arm] Pulse Oximetry 94 93 94 Oxygen Delivery Me thod Oxygen Flow Rate 08/08/25 01:28 08/08/25 01:48 08/08/25 02:07 Temperature Pulse Rate 61 63 66 Pulse Rate [Right Pulse Oximeter] Respiratory Rate 17 16 15 Blood Pressure 91/58 L 91/53 L 95/64 Blood Pressure [Ri ght Upper Arm] Pulse Oximetry 94 95 96 Oxygen Delivery Me thod Oxygen Flow Rate 08/08/25 02:28 08/08/25 02:35 08/08/25 02:59 Temperature Pulse Rate 59 L 152 H Pulse Rate [Right Pulse Oximeter] Respiratory Rate 19 18 Blood Pressure 83/52 L 97/55 L Blood Pressure [Ri ght Upper Arm] Pulse Oximetry 97 98 Oxygen Delivery Me thod Room Air Oxygen Flow Rate Course Vital Signs Vital signs: Initial Vital Signs Temperature 96.0 F L 08/07/25 22:56 Temperature Source Temporal Artery Scan 08/07/25 22:56 Pulse Rate 78 08/07/25 22:56 Pulse Rhythm Regular 08/07/25 22:56 Respiratory Rate 18 08/07/25 22:56 Blood Pressure 70/41 L 08/07/25 22:56 Blood Pressure Mean 50 L 08/07/25 22:56 Blood Pressure Position Sitting 08/07/25 22:56 Pulse Oximetry 95 08/07/25 22:56 Oxygen Delivery Method Room Air 08/07/25 22:56 Vital Signs Temperature 96.0 F L 08/07/25 22:56 Pulse Rate 78 08/07/25 22:56 Respiratory Rate 18 08/07/25 22:56 Blood Pressure 70/41 L 08/07/25 22:56 Pulse Oximetry 95 08/07/25 22:56 Oxygen Delivery Method Room Air 08/07/25 22:56 Temperature 96.0 F L 08/07/25 22:56 Pulse Rate 152 H 08/08/25 02:35 Respiratory Rate 18 08/08/25 02:35 Blood Pressure 97/55 L 08/08/25 02:35 Pulse Oximetry 98 08/08/25 02:59 Oxygen Delivery Method Room Air 08/08/25 02:59 Oxygen Flow Rate 1 08/08/25 00:18 Medications Administered Medications: Discontinued Medications Generic Name Dose Route Start Last Admin Trade Name Nicholasq PRN Reason Stop Dose Admin Sodium Chloride 1,000 mls @ 1,000 mls/hr 08/08/25 00:30 08/08/25 01:14 0.9 % Sodium Chloride 1000 Ml IV 08/08/25 01:29 Infused .Q1H BENNIE Infusion Naloxone HCl 0.4 mg 08/08/25 00:18 08/08/25 00:30 Naloxone 1 Mg/Ml Syringe IV 08/08/25 00:19 0.4 mg ONCE ONE Administration Ondansetron HCl 4 mg 08/08/25 00:18 08/08/25 00:26 Ondansetron 2 Mg/Ml Inj IVP 08/08/25 00:19 4 mg ONCE ONE Administration MDM - Overdose MDM Narrative Medical decision making narrative: Karo is a 30 yo female who presents to the ED for evaluation of accidental overdose. Upon arrival patient is nontoxic appearing, afebrile, in distress. Patient blood pressure low upon arrival 70/41, no tachycardia, heart rate 78, oxygen 95% on room air. I suspect patient's symptoms are most likely secondary to polypharmacy with tizanidine, olanzapine, and alcohol however would consider recurrent clot given her history. Upon arrival IV was established and patient was treated with 1 L IV fluid bolus. During my initial interview patient's blood pressure improved to 80/90 systolic, and speech also improved. At this time and discussed with patient will continue close monitoring, EKG, comprehensive labs, if no improvement or any worsening symptoms will broaden workup with possible imaging. Patient is agreeable to this plan. I reviewed EKG which demonstrates normal sinus rhythm with a ventricular rate of 75 beats per minute, right axis deviation, QTc prolonged 515, no acute ischemic change, Comprehensive labs remarkable for white blood cell count 7.0, hemoglobin 12.4, INR 1.01, potassium 3.2, no other acute metabolic or electrolyte abnormality, no transaminitis, negative test, salicylate negative, acetaminophen negative, alcohol 0.14. Patient with improvement of blood pressure to 80s to 90 systolic after IV fluid bolus. Patient sleeping, resting comfortably. Given patient's alcohol level along with combination of tizanidine, olanzapine suspect this is likely secondary to patient's hypotensive, lightheadedness, and overall drowsiness. At this time will plan for continuous close monitoring. Patient monitored in the emergency department overnight, resting comfortably. Patient's lab and on re-evaluation patient awake, ambulating, and requesting to discharge. Patient states she recalls for ride. Patient reports significant improvement of her symptoms, denies any weakness, dizziness, chest pain, shortness of breath. Patient reports feeling back to baseline. Low suspicious for PE. With shared decision-making patient does not want any imaging at this time and would like to discharge home. At this time patient will be discharged with her friend, encouraged close outpatient follow-up with her primary care provider in strict return precautions discussed. Patient understands and agrees the plan. Medical Records Attestation: I reviewed the patient's medical records. Lab Data Attestation: I reviewed the patient's lab results. Labs: Lab Results 08/08/25 Range/Units 00:00 WBC 7.03 (4.50-11.00) K/uL RBC 3.57 L (4.00-5.20) m/uL Hgb 12.4 (12.0-16.0) gm/dL Hct 36.8 (33.0-51.0) % MCV 103 H (80-100) fL MCH 35 H (26-34) pg MCHC 34 (32-36) gm/dL RDW Coeff of Shimon 14.3 (11.5-15.5) % Plt Count 353 (140-440) K/uL Neut % (Auto) 58.4 (42.0-72.0) % Lymph % (Auto) 32.3 (20-44) % [place] % (Auto) 5.4 (0.0-11.0) % Eos % (Auto) 2.7 (0.0-7.0) % Baso % (Auto) 0.6 (0.0-3.0) % Neut # (Auto) 4.11 (1.7-7.0) K/uL Lymph # (Auto) 2.27 (0.90-2.90) K/uL [place] # (Auto) 0.40 (0.00-0.90) K/UL Eos # (Auto) 0.19 (0.00-0.50) K/uL Baso # (Auto) 0.04 (0.00-0.30) K/uL Abs Immat Gran (auto) 0.04 (0.00-0.30) K/uL Imm/Tot Granulo (auto) 0.6 % INR 1.01 (0.91-1.10) Sodium 139 (135-149) mmol/L Potassium 3.2 L (3.6-5.1) mmol/L Chloride 102 (96-114) mmol/L Carbon Dioxide 23 (20-32) mmol/L Anion Gap 14 (7-15) mEq/L BUN 3 L (5-24) mg/dL Creatinine 0.8 (0.5-1.5) mg/dL Estimated Creat Clear 106.48 Estimated GFR 101 ml/min Glucose 149 H (60-115) mg/dL Calcium 8.9 (8.4-10.6) mg/dL Total Bilirubin 1.1 (0.1-1.5) mg/dL AST 33 (12-35) U/L ALT 24 (4-35) U/L Alkaline Phosphatase 56 (40-150) U/L Total Protein 6.7 (6.0-8.3) g/dL Albumin 4.0 (3.3-5.0) g/dL HCG, Qual Negative (Negative) Salicylates < 1.0 L (1.0-10) mg/dL Acetaminophen < 10.0 (10.0-30.0) ug/mL Ethyl Alcohol 0.14 H (0.01-0.03) % Critical Care Time Critical Care Time Critical Care Time: Yes Attestation: The patient required my highest level preparedness to intervene emergently and I personally spent this critical care time directly and personally managing the patient. This critical care time included: Obtaining a history; Examining the patient; Pulse oximetry; Ordering and reviewing of studies; Arranging urgent treatment with development of a management plan; Evaluation of patients response to treatment; Frequent reassessment discussions with other providers. This critical care time was performed to assess and manage the high probability of imminent life-threatening deterioration that could result in multiorgan failure. It was exclusive of separate billable procedures and treating other patients and teaching time. Total Critical Care Time in Minutes: 60 Discharge Plan Discharge Clinical Impression: Accidental overdose, Hypotension, Lightheadedness Patient Disposition: Home, Self-Care Condition: Improved Additional Instructions: Please follow-up with your primary care provider in the next 2-3 days for further evaluation and follow-up. Please continue old medications. Please rest, drink plenty of water. Please avoid drinking alcohol while taking medications. Please also make sure not to take your medications at the same time as this may worsen the side effects. Please return to the emergency department if you develop any worsening symptoms. It is a pleasure taking care of you today. We hope you feel better soon. Prescriptions: No Action tizanidine 4 mg tablet 4 mg PO Q6H PRN (Reason: muscle spasm) escitalopram oxalate 10 mg tablet 10 mg PO DAILY doxycycline monohydrate 100 mg capsule 100 mg PO DAILY enoxaparin 150 mg/mL syringe 150 mg subcut Q12H cyanocobalamin (vitamin B-12) 1,000 mcg tablet, sublingual 1,000 mcg sublingual DAILY ferrous sulfate [Feosol] 325 mg (65 mg iron) tablet 325 mg PO DAILY ascorbic acid (vitamin C) 1,000 mg tablet 1 g PO DAILY folic acid 1 mg tablet 2 mg PO BID multivitamin [Daily Multi-Vitamin] Tablet 1 tab PO DAILY Follow Up/Referrals: Provider,Not a Local [Primary Care Provider, Family Practice] Stand Alone Forms: pocketfungames Info Instructions
[2025-08-07 23:51] VITALS: BP 89/43; PULSE 70; RESP 16; O2SAT 92
[2025-08-08] VITALS (13 sets, daily range): BP systolic 83–97; BP diastolic 51–64; PULSE 59–152; RESP 15–19; O2SAT 88–98
--- OUTSIDE RECORDS SUMMARY | 2025-08-08 00:25 | XMS_ITS | Patient Health Record ---
Author Organization [facility] Address [address] [place] [address] Care Team Providers Care Audio Installer Name Role Phone None, None Primary Care Provider PAUL Carvajal [phone] Reason For Referral No Information Medications Medication [...] Date Coverage End Date [employer] [address] [address] [place], [place] [phone] [id number] Karo Gallegos Self - patient is the insured Medical (General) History Surgical History Surgery Date(Month/Year) Gastric sleeve 10/13/2016
--- OUTSIDE RECORDS SUMMARY | 2025-08-08 00:25 | XMS_ITS | Clinical Summary ---
Author Organization [facility] Address [address] [place] [address] Care Team Providers Care Visual Lead Name Role Phone Elsewhere, Pcp Primary Care Provider Unavailabl e Source Comments Patient records contain information from all sites at [facility]. For routine questions regarding patient records, call [phone] during business hours, M-F 8:00 AM - 5:00 PM Central Time. Record requests for emergency care only can be directed to [phone] at any time.[facility] Allergies Active Allergy Reactions Criticality Noted [...] CDT - 08/04/2025 5:45 PM CDT Emergency [facility] [address] [place] [address] Valerio Bernardo, ELDA, C.N.P., D.N.P. Pain Wrist Right (Primary Dx); Medication Management Issue Discharge Disposition: Home or Self Care 08/04/2025 Nurse Triage Division of Community Internal Medicine, [facility], in [place], [place] [address] [place] [phone] Marylou Estes, R.N. Med Refill 08/03/2025 3:00 PM CDT Office Visit Department of Vascular Medicine in [place], [place] [address] [place] [phone] Hang Arrington M.D. Embolus Pulmonary Personal History (Primary Dx); Thrombophlebitis Superficial Upper Limb; Folate Deficiency Anemia Unspecified; Anemia B12 Deficiency; Anticoagulant Therapy 08/03/2025 2:35 PM CDT - 08/03/2025 11:59 PM CDT Hospital Encounter Department of Radiology, [facility] in [place], [place] [address] [place] [address] Hang Arrington M.D. Pain Chest Discharge Disposition: Home or Self Care 08/03/2025 2:30 PM CDT - 08/03/2025 2:34 PM CDT Hospital Encounter Department of Radiology, [facility] in [place], [place] [address] [place] [address] Hang Arrington M.D. Embolus Pulmonary (HCC); Anticoagulant Therapy Discharge Disposition: Home or Self Care 08/02/2025 Clinical Communication Department of Vascular Medicine in [address] [address] Hang Arrington M.D. 07/31/2025 Results Follow-Up Department of Vascular Medicine in [place], [place] [address] [place] [phone] Hang Arrington M.D. [place] Lung Ventilation and Perfusion 07/20/2025 1:47 PM CDT - 07/20/2025 11:59 PM CDT Hospital Encounter Department of Radiology, [facility] in [place], [place] [address] [place] [address] Hang Arrington M.D. Pain Chest Discharge Disposition: Home or Self Care 07/19/2025 11:00 AM CDT Office Visit Department of Vascular Medicine in [place], [place] [address] [place] [address] Hang Arrington M.D. Pain Chest (Primary Dx); Dyspnea On Exertion; Embolus Pulmonary (HCC); Anticoagulant Therapy; Folate Deficiency Anemia Unspecified; Deficiency Vitamin B12 07/19/2025 9:00 AM CDT - 07/19/2025 11:59 PM CDT Hospital Encounter Department of Laboratory Medicine and Pathology, [facility] in [place], [place] [address] [place] [address] Hang Arrington M.D. Embolus Pulmonary (HCC); Anticoagulant Therapy; Deficiency Vitamin B12; Other Folate Deficiency Anemias Discharge Disposition: Home or Self Care 07/19/2025 Clinical Communication Department of Cardiovascular Medicine in [place], [place] [address] [place] [phone] Commodity Manager Curtis M.D. 07/17/2025 Orders Only Department of Vascular Medicine in [place], [place] [address] [place] [phone] Hang Arrington M.D. 07/06/2025 4:30 PM CDT Virtual Visit Department of Vascular Medicine in [place], [place] [address] [place] [address] Hang Arrington M.D. Embolus Pulmonary (HCC) (Primary Dx); Anticoagulant Therapy; Deficiency Vitamin B12; Other Folate Deficiency Anemias 07/06/2025 10:40 AM CDT - 07/06/2025 11:59 PM CDT Hospital Encounter Department of Cardiovascular Diseases in [place], [place] [address] [place] [address] Hang Arrington M.D. Embolus Pulmonary (HCC); Palpitations; Hyperhomocysteinem ia (HCC); Anemia B12 Deficiency; Anticoagulant Therapy Discharge Disposition: Home or Self Care 07/06/2025 10:10 AM CDT - 07/06/2025 10:39 AM CDT Hospital Encounter Department of Laboratory Medicine and Pathology, [facility] in [place], [place] [address] [place] [address] Hang Arrington M.D. Embolus Pulmonary (HCC); Palpitations; Hyperhomocysteinem ia (HCC); Anemia B12 Deficiency; Anticoagulant Therapy Discharge Disposition: Home or Self Care 07/06/2025 8:30 AM CDT - 07/06/2025 9:44 AM CDT Hospital Encounter Department of Radiology, [facility] in [place], [place] [address] [place] [address] Hang Arrington M.D. Embolus Pulmonary (HCC) Discharge Disposition: Home or Self Care 07/02/2025 Clinical Communication Department of Vascular Medicine in [place], [place] [address] [place] [phone] Hang Arrington M.D. Phone Contact 06/29/2025 Orders Only Department of Vascular Medicine in [address] [address] Hang Arrington M.D. Embolus Pulmonary (HCC) (Primary Dx) 06/28/2025 2:00 PM CDT Telemedicine Department of Vascular Medicine in [place], [place] [address] [place] [phone] Hang Arrington M.D. Embolus Pulmonary (HCC) (Primary Dx); Palpitations; Hyperhomocysteinem ia (HCC); Anemia B12 Deficiency; Anticoagulant Therapy 06/27/2025 Orders Only Department of Vascular Medicine in [place], [place] [address] [place] [phone] Hang Arrington M.D. 06/24/2025 Documentation Department of Vascular Medicine in [address] [address] Hang Arrington M.D. from Last 3 Months Social History Tobacco Use Types Packs/Day Years Used Date Smoking Tobacco: Former Cigarettes 0 05/22/2014 - 10/14/2018 Passive Smoke Exposure: Current Smokeless Tobacco: Never Alcohol Use Standard Drinks/Week Comments Not Currently 3 (1 standard drink = 0.6 oz pure alcohol) Date nights maybe wednesday and wednesday [facility] Answer Date Recorded In the past 12 months has [facility] [employer], gas, oil, or water [employer] threatened to shut off services in your [...] your living situation today? I have a 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 COMPARISON: Outside ultrasound dated 06/21/2025; [facility] ultrasounds dated 10/12/2024 and 07/01/2024. FINDINGS: [...] and management can be found on the [employer] site. Link [email or web address] Procedure Note Paulina Liu M.D. - 08/03/2025 EXAM: US LOWER EXTREMITY VEINS BILATERAL Exam performed with color and spectral Doppler analysis. COMPARISON: Outside ultrasound dated 06/21/2025; [facility] ultrasoundsdated 10/12/2024 and 07/01/2024. FINDINGS: RIGHT: [...] thrombosis and management can be found on the[employer] site. [email or web address]/[email or web address] -2049 1725 IMPRESSION: Negative for acute DVT [...] and management can be found on the [employer] site. Link [email or web address] [email or web address] Procedure Note Paulina Liu M.D. - 08/03/2025 [...] thrombosis and management can be found on the[employer] site. [email or web address]/clinical-answers/[email or web address]/[facility] -2049 4324 IMPRESSION: 1. Acute on chronic occlusive SVT [...] CDT) Ventricular Rate ECG/Min 63 BPM MUSE MO Interval 146 ms MUSE QRSD Interval 84 ms MUSE QT Interval 452 ms MUSE QTC Interval 463 ms MUSE P [place] 46 degrees MUSE R [place] 63 degrees MUSE T Wave [place] 14 degrees MUSE 07/20/2025 1:31 PM CDT [...] ADD-ON Final R esult Performing Organization Address City/[facility] Co de Phone Number [facility] [address] [place] [address] * (ABNORMAL) Folate (07/19/2025 9:36 AM CDT) Pathologist [facility] Folate, S 3.6(L) >=4.0 mcg/L 07/19/2025 11:14 AM CDT DTL Comment:Result suggests tina te deficiency Blood (Blood, Venous) 07/19/2025 9:36 AM CDT 07/19/2025 10:00 AM CDT Hang Arrington M.D. LAB BLOOD ADD-ON Final Resul t Performing Organization Address City/[facility]/ZIP Co de Phone Number [facility] [address] [place] [address] * (ABNORMAL) Vitamin B12 Assay (07/19/2025 9:36 AM CDT) Pathologist [facility] Vitamin B12 Assay, S 115(L) 180 - [...] M.D. LAB BLOOD ADD-ON Final Resul t [facility] [address] [place] [address], [facility] [address] [place] [address] * HOLTER MONITOR - IN CLINIC FRAMER (07/08/2025 5:15 AM CDT) Min Heart Rate [...] Duration 0 duration INFOBION IC MOME AF [place] 0 percent INFOBIONIC MOME Symptom Count 13 [...] these events, one PAC was seen singly. Brick Setter Operator: FELTON Ha Procedure Note Alcides Eng M.D., [...] these events, one PAC was seen singly. Brick Setter Operator: FELTON Ha Hang Arrington M.D. CV CARDIAC [...] pulmonary infarct. 3. Findings discussed with Dr. Hnag Arrington, pager [phone] or [phone] by Xochitl Amanda APRN at 10:03 am [...] with Dr. Hang Arrington, pager [phone] or [phone] Max Amanda APRN at 10:03 am on 07/06/2025. Hang Arrington M.D. IMG CT PROCEDURES Final Resu lt * ECHO TTE COMPLETE WO CONTRAST-Outside US Card (06/22/2025 12:00 AM CDT) 06/22/2025 11:4 3 AM CDT Addenda Addendum by [employer], Outside on 06/22/2025 11:43 AM CDT BELOW REPORT RECEIVED BY [facility] ON 07/25/2025 07:39:26 [id number] ECHOCARDIOGRAM KARO ALEMANSaulBRENDAN : 1995 30 years Study Date: 06/22/2025 7:36:23 AM Gender: F BP: 90/47 mmHg Height: 175.00 cm BSA: 2.35 m?? Weight: 123.00 kg Tech: NKM Referring MD: BRIAN SENA Site: [facility] Reading Location: [facility] Patient Location: Inpatient. Procedure: 2D, Color Doppler, [...] This study was interpreted by an [facility] accredited facility. Final READ BY Hesham Hough RELEASED BY ELLE Addendum by [employer], Outside on 06/22/2025 11:43 AM CDT BELOW REPORT RECEIVED BY [facility] ON 07/25/2025 07:38:47 [id number] ECHOCARDIOGRAM KARO WATSON : 1995 30 years Study Date: 06/22/2025 7:36:23 AM Gender: F BP: 90/47 mmHg Height: 175.00 cm BSA: 2.35 m?? Weight: 123.00 kg Tech: NITHIN Referring MD: BRIAN SENA Site: [facility] Reading Location: [facility] Patient Location: Inpatient. Procedure: 2D, [...] This study was interpreted by an [facility] accredited facility. Final READ BY Hesham oHugh RELEASED BY ELLE Addendum by [employer], Outside on 06/22/2025 11:43 AM CDT BELOW REPORT RECEIVED BY [facility] ON 07/25/2025 07:37:28 [id number] ECHOCARDIOGRAM KARO WATSON : 1995 30 years Study Date: 06/22/2025 7:36:23 AM Gender: F BP: 90/47 mmHg Height: 175.00 cm BSA: 2.35 m?? Weight: 123.00 kg Tech: [facility] Referring MD: BRIAN SENA Site: [facility] Reading Location: [facility] Patient Location: Inpatient. Procedure: 2D, Color Doppler, [...] This study was interpreted by an [facility] accredited facility. Final READ BY Hesham Hough [...] 06/21/2025 3:03 PM CDT Addenda Addendum by [employer], Outside on 06/21/2025 3:03 PM CDT BELOW REPORT RECEIVED BY [facility] ON 06/21/2025 15:23:15 [id number] For Patients: As a result of the [...] Michela Murray RELEASED BY CHU Addendum by [employer], Outside on 06/21/2025 3:03 PM CDT BELOW REPORT RECEIVED BY [facility] ON 06/21/2025 15:22:35 [id number] For Patients: As a result of the [...] Michela Murray RELEASED BY CHU Addendum by [employer], Outside on 06/21/2025 3:03 PM CDT BELOW REPORT RECEIVED BY [facility] ON 06/21/2025 15:21:34 [id number] For Patients: As a result of the [...] The above findings were discussed with Dr. Viadl by Dr. Murray at 15:00. Please note [...] required please follow defined workflow. Procedure Note [employer], Outside - 06/21/2025 This order has been [...] 06/21/2025 3:13 PM CDT Addenda Addendum by [employer], Outside on 06/21/2025 3:13 PM CDT BELOW REPORT RECEIVED BY [facility] ON 06/21/2025 15:17:45 [id number] For Patients: As a result of the [...] Cristin Villarreal RELEASED BY ROGER Addendum by [employer], Outside on 06/21/2025 3:13 PM CDT BELOW REPORT RECEIVED BY [facility] ON 06/21/2025 15:17:14 [id number] For Patients: As a result of the [...] required please follow defined workflow. Procedure Note [employer] Outside - 06/21/2025 This order has been created and auto-finalized to support the import ofoutside images. If available, original interpretation can be found on theMedia Tab in Chart Review, in Document Viewer, as an image in [employer]or as an Addendum. If a re-interpretation or overread is required please follow definedworkflow. us Provider Not In System IMG US PROCEDURES Edited Result - Final IMAGING NA from Last 3 Months Insurance [facility] Advance Directives For more information, please contact: [phone] * Full Code (Latest Code Status on File) Date Activated Date Inactivated Comments 07/01/2024 2:27 AM 07/04/2024 10:47 PM Question Answer Comments Full Code: Discussed Care Teams Visual Lead Relationship Specialty Start Date End Date Elsewhere, Pcp PCP - General Internal Medicine 04/12/24
--- OUTSIDE RECORDS SUMMARY | 2025-08-08 00:25 | XMS_ITS | Encounter Summary ---
Author Organization [facility] Address [address] [place] [address] Care Team Providers Care Water Fabricator Operator Name Role Phone Elsewhere, Pcp Primary Care Provider Unavailabl e Reason for Visit * Reason Onset Date Comments Med Refill 08/04/2025 Encounter Details Date Type Department Care Team (Late st Contact Info) Description 08/04/2025 Nurse Triage Division of Community Internal Medicine, [facility] in [place], [place] [address] [place] [address] Marylou Estes, R.N. 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 Gender Identity Not on file Sexual [...] transferred caller to switchboard for vascular med web operations specialist Patient denies the following adult emergency symptoms: chest pain, difficulty breathing/shortness of breath, difficulty staying alert and awake, and dizziness/lightheadedness/weakness documented in this encounter Plan of Treatment Not on file documented as of this encounter Visit Diagnoses Not on filedocumented in this encounter Care Teams Water Fabricator Operator Relationship Specialty Start Date End Date Elsewhere, Pcp PCP - General Internal Medicine 04/12/24 documented as of this encounter
--- OUTSIDE RECORDS SUMMARY | 2025-08-08 00:25 | XMS_ITS | Encounter Summary ---
Author Organization [facility] Address [address] [place] [address] Care Team Providers Care Osteopathic Resident Name Role Phone Sarah Juares MD Primary Care Provider Unav ailable Purvi Jeong [facility] Unavailable [phone] Lucas Nuno MD Unavailable [phone] Meghan Cox [facility] Unavailable [phone] Jose Tran MD Primary Care Provider [phone] Encounter Details Date Type Department Care Team (Late st Contact Info) Description 03/14/2025 MyC Medical Advice [facility] General Surgery Clinic [place] [id number] [facility] [address] [place] [address] Lucas Nuno MD [address] [facility] [address] [place] [address] Social History Tobacco Use Types Packs/Day Years Used Date Smoking Tobacco: Former Smokeless Tobacco: Never Alcohol Use Standard Drinks/Week Comments Not Currently 0 (1 standard drink = 0.6 oz pur e alcohol) rare PHQ-2 Answer Date Recorded PHQ-2 Score 0 02/22/2025 [place] Depression Scale Answer Date Recorded [place] Depression Score 1 07/06/2021 Last EPDS [...] AM CDT 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 Gender Identity Female 06/03/2022 7:36 AM CDT Sexual Orientation Straight 06/03/2022 7: 36 AM CDT documented as of this encounter Plan of Treatment Not on file documented as of this encounter Visit Diagnoses Not on filedocumented in this encounter Care Teams Osteopathic Resident Relationship Specialty Start Date End Date Sarah Juares MD PCP - General Family Medicine 03/13/25 08/06/25 [place] [address] [place] [address] PCP - General Family Medicine 08/07/25 Purvi Jeong [facility] [address] [place] [address] Pharmacist Pharmacist Braker Passenger Train 01/03/25 Lucas Nuno MD [address] [place] [address] Assigned Surgical Provider 02/07/25 Meghan Cox [facility] [address] [place] [address] Pharmacist Pharmacist Braker Passenger Train 03/20/25 documented as of this encounter
--- OUTSIDE RECORDS SUMMARY | 2025-08-08 00:25 | XMS_ITS | Encounter Summary ---
Author Organization [facility] Address [address] [place] [address] Care Team Providers Care Safe Deposit Box Rental Clerk Name Role Phone Sarah Juares MD Primary Care Provider Unav ailable Purvi Jeong [facility] Unavailable [phone] Lucas Nuno MD Unavailable [phone] Meghan Cox [facility] Unavailable [phone] Jose Tran MD Primary Care Provider [phone] Encounter Details Date Type Department Care Team (Late st Contact Info) Description 03/19/2025 MyC Medical Advice [facility] General Surgery Clinic [place] [id number] [facility] [address] [place] [address] Lucas Nuno MD [address] [facility] [address] [place] [address] Social History Tobacco Use Types Packs/Day Years Used Date Smoking Tobacco: Former Smokeless Tobacco: Never Alcohol Use Standard Drinks/Week Comments Not Currently 0 (1 standard drink = 0.6 oz pur e alcohol) rare PHQ-2 Answer Date Recorded PHQ-2 Score 0 02/22/2025 [place] Depression Scale Answer Date Recorded [place] Depression Score 1 07/06/2021 Last EPDS Self [...] AM CDT 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 Gender Identity Female 06/03/2022 7:36 AM CDT Sexual Orientation Straight 06/03/2022 7: 36 AM CDT documented as of this encounter Plan of Treatment Not on file documented as of this encounter Visit Diagnoses Not on filedocumented in this encounter Care Teams Safe Deposit Box Rental Clerk Relationship Specialty Start Date End Date Sarah Juares MD PCP - General Family Medicine 03/13/25 08/06/25 [place] [address] [place] [address] PCP - General Family Medicine 08/07/25 Purvi Jeong RPH [address] [place] [phone] Pharmacist Pharmacist Pocketed Spring Machine Operator 01/03/25 Lucas Nuno MD [address] [place] [address] Assigned Surgical Provider 02/07/25 Meghan Cox RPH [address] [place] [address] Pharmacist Pharmacist Pocketed Spring Machine Operator 03/20/25 documented as of this encounter
[2025-08-08] MEDS: ONDANSETRON 2 MG/ML inj 4 MG IVP (00:26)
--- OUTSIDE RECORDS SUMMARY | 2025-08-08 00:26 | XMS_ITS | Encounter Summary ---
Author Organization [facility] Address [address] [place] [address] Care Team Providers Care Swimming Professor Name Role Phone Elsewhere, Pcp Primary Care Provider Unavailabl e Encounter Details Date Type Department Care Team (Late st Contact Info) Description 08/02/2025 Clinical Communication Department of Vascular Medicine in [place], [place] [address] [place] [phone] Hang Arrington M.D. [address] [place] [phone] Social History Tobacco Use Types Packs/Day Years Used Date Smoking Tobacco: Former Cigarettes 0 05/22/2014 - 10/14/2018 Passive Smoke Exposure: Current Smokeless Tobacco: Never Alcohol Use Standard Drinks/Week Comments Not Currently 3 (1 standard drink = 0.6 oz pure alcohol) Date nights maybe wednesday and wednesday [facility] Utilities Answer Date Recorded In the past 12 months has [employer], gas, oil, or water [employer] threatened to shut off services in your [...] living situation today? 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 Her left arm was givingher a lot of pain. She would like a call. [phone] documented in this encounter Plan of Treatment Not on file documented as of this encounter Visit Diagnoses Not on filedocumented in this encounter Care Teams Swimming Professor Relationship Specialty Start Date End Date Elsewhere, Pcp PCP - General Internal Medicine 04/12/24 documented as of this encounter
--- OUTSIDE RECORDS SUMMARY | 2025-08-08 00:26 | XMS_ITS | Encounter Summary ---
Author Organization [facility] Address [address] [place] [address] Care Team Providers Care Gate Keeper Name Role Phone None, Pcp Primary Care [...] on filedocumented in this encounter Care Teams Gate Keeper Relationship Specialty Start Date End Date None, Pcp [address] [place] [address] PCP - General Check Grader 08/04/25 documented as of this encounter
--- OUTSIDE RECORDS SUMMARY | 2025-08-08 00:26 | XMS_ITS | Clinical Summary ---
Author Organization [facility] Address [address] [place] [address] Care Team Providers Care Cosmetic Chemist Name Role Phone None, Pcp Primary Care [...] CDT - 08/04/2025 1:40 PM CDT Emergency [facility] Emergency Room [address] [place] [address] Encounter for medication refill (Primary Dx) Discharge [...] patient's age to complete this topic Insurance [facility] [place] [address] Care Teams Cosmetic Chemist Relationship Specialty Start Date End Date None, Pcp [address] [facility] [place] [address] PCP - General Hemotherapist 08/04/25
--- OUTSIDE RECORDS SUMMARY | 2025-08-08 00:27 | XMS_ITS | Encounter Summary ---
Author Organization [facility] Address [address] [place] [address] Care Team Providers Care Director Of Programming Name Role Phone Elsewhere, Pcp Primary Care Provider Unavailabl e Encounter Details Date Type Department Care Team (Late st Contact Info) Description 06/24/2025 Documentation Department of Vascular Medicine in [place], [place] [address] [place] [phone] Hagn Arrington M.D. [address] [place] [phone] Social History Tobacco Use Types Packs/Day Years Used Date Smoking Tobacco: Former Cigarettes 0 05/22/2014 - 10/14/2018 Passive Smoke Exposure: Current Smokeless Tobacco: Never Alcohol Use Standard Drinks/Week Comments Not Currently 3 (1 standard drink = 0.6 oz pure alcohol) Date nights maybe wednesday and wednesday [facility] Utilities Answer Date Recorded In the past 12 months has [employer], gas, oil, or water [employer] threatened to shut off services in your [...] your living situation today? 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 - 06/24/2025 9:57 AM CDT This past I received a call from local emergency room in [place] regarding Ms. El Live She had presented [...] in this encounter Care Teams Director Of Programming Relationship Specialty Start Date End Date Elsewhere, Pcp PCP - General Internal Medicine 04/12/24 documented as of this encounter
--- OUTSIDE RECORDS SUMMARY | 2025-08-08 00:27 | XMS_ITS | Encounter Summary ---
Author Organization [facility] Address [address] [place] [address] Care Team Providers Care Pastoral Ministries Professor Name Role Phone Elsewhere, Pcp Primary Care Provider Unavailabl e Reason for Referral * Outpatient (Routine) - Closed Specialty Diagnoses / Procedures Referred By Contac t Referred To Contact Vascular Medicine Hang Arrington M.D. [address] [place] [phone] Phone: tel: fax: [facility] Referral ID Status Reason Start Date Expiration Date Visits Re quested Visits Authorized [id number] Closed 06/27/2025 12/27/2026 1 1 Scheduling Instructions 2:00 p.m. 06/28/2025 with me in thrombophilia Clinic Encounter Details Date Type Department Care Team (Late st Contact Info) Description 06/27/2025 Orders Only Department of Vascular Medicine in [place], [place] [address] [place] [phone] Hang Arrington M.D. 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
--- OUTSIDE RECORDS SUMMARY | 2025-08-08 00:27 | XMS_ITS | Encounter Summary ---
Author Organization [facility] Address [address] [place] [address] Care Team Providers Care Real Time Operator Name Role Phone Elsewhere, Pcp Primary Care Provider Unavailabl e Reason for Visit * Reason Onset Date Comments Phone Contact 07/02/2025 Encounter Details Date Type Department Care Team (Late st Contact Info) Description 07/02/2025 Clinical Communication Department of Vascular Medicine in [place], [place] [address] [place] [phone] Hang Arrington M.D. 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
--- OUTSIDE RECORDS SUMMARY | 2025-08-08 00:27 | XMS_ITS | Encounter Summary ---
Author Organization [facility] Address [address] [place] [address] Care Team Providers Care Artists' Booking Representative Name Role Phone Elsewhere, Pcp Primary Care Provider Unavailabl e Encounter Details Date Type Department Care Team (Latest Contact Info) Description 07/19/2025 Clinical Communication Department of Cardiovascular Medicine in [place], [place] [address] [place] [phone] Installation CoordinatorCurtis M.D. Social History Tobacco Use Types Packs/Day Years Used Date Smoking Tobacco: Former Cigarettes 0 05/22/2014 - 10/14/2018 Passive Smoke Exposure: Current Smokeless Tobacco: Never Alcohol Use Standard Drinks/Week Comments Not Currently 3 (1 standard drink = 0.6 oz pure alcohol) Date nights maybe wednesday and wednesday [facility] [employer]ities Answer Date Recorded In the past [address] 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 Date: 06/22/2025 Date/timeframe records needed by: -Prior to CV appt Notification of records received: -No notification needed (provider will review at time of appt) * Telephone Encounter - Emily Maravilla - 07/19/2025 11:25 AM CDT Vas # [id number] documented in this encounter Plan of Treatment Not on file documented as of this encounter Visit Diagnoses Not on filedocumented in this encounter Care Teams Artists' Booking Representative Relationship Specialty Start Date End Date Elsewhere, Pcp PCP - General Internal Medicine 04/12/24 documented as of this encounter
--- OUTSIDE RECORDS SUMMARY | 2025-08-08 00:27 | XMS_ITS | Encounter Summary ---
Author Organization [facility] Address [address] [place] [address] Care Team Providers Care Carton Stenciler Name Role Phone Elsewhere, Pcp Primary Care Provider Unavailabl e Reason for Referral * MRI/CAT/PET Scan (Routine) - Closed Specialty Diagnoses / Procedures Referred By Contac t Referred To Contact Radiology Diagnoses Embolus Pulmonary (HCC) Procedures CT Chest Angiogram and Pulmonary Arteries with IV Contrast Hang Arrington M.D. 200 [place] [address] Phone: tel: fax: [facility] Referral ID Status Reason Start Date Expiration Date Visits Re quested Visits Authorized [id number] Closed 07/05/2025 10/02/2025 1 1 Encounter Details Date Type Department Care Team (Late st Contact Info) Description 06/29/2025 Orders Only Department of Vascular Medicine in [place], [place] [address] [place] [phone] Hang Arrington M.D. [address] [place] [phone] Embolus Pulmonary (HCC) (Primary Dx) Social History Tobacco Use Types Packs/Day Years Used Date Smoking Tobacco: Former Cigarettes 0 05/22/2014 - 10/14/2018 Passive Smoke Exposure: Current Smokeless Tobacco: Never Alcohol Use Standard Drinks/Week Comments Not Currently 3 (1 standard drink = 0.6 oz pure alcohol) Date nights maybe wednesday and wednesday [facility] Utilities Answer Date Recorded In the [...] your living situation today? 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 Hang Arrington, pager [phone] or [phone] by Xochitl Amanda APRN at 10:03 am [...] Findings discussed with Dr. Hang Arrington, pager [phone] or [phone] Max Amanda APRN at 10:03 am on 07/06/2025. Hang Arrington M.D. IMG CT PROCEDURES Final Resu lt documented in this encounter Visit Diagnoses Diagnosis Embolus Pulmonary (HCC)- Primary Embolus Pulmonary (HCC) documented in this encounter Care Teams Carton Stenciler Relationship Specialty Start Date End Date Elsewhere, Pcp PCP - General Internal Medicine 04/12/24 documented as of this encounter
--- OUTSIDE RECORDS SUMMARY | 2025-08-08 00:27 | XMS_ITS | Encounter Summary ---
Author Organization [facility] Address [address] [place] [address] Care Team Providers Care Inspector Bicycle Name Role Phone Elsewhere, Pcp Primary Care Provider Unavailabl e Reason for Referral * Outpatient (Routine) - Closed Specialty Diagnoses / Procedures Referred By Contac t Referred To Contact Vascular Medicine Hang Arrington M.D. [address] [place] [phone] Phone: tel: fax: [facility] Referral ID Status Reason Start Date Expiration Date Visits Re quested Visits Authorized [id number] Closed 07/17/2025 01/16/2027 1 1 Scheduling Instructions Request 11:00 a.m. appointment on 07/19/2025 Encounter Details Date Type Department Care Team (Late st Contact Info) Description 07/17/2025 Orders Only Department of Vascular Medicine in [place], [place] [address] [place] [phone] Hang Arrington M.D. 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
[2025-08-08] MEDS: NALOXONE 1 MG/ML SYRINGE 0.4 MG IV (00:30)
--- OUTSIDE RECORDS SUMMARY | 2025-08-08 00:32 | XMS_ITS | Encounter Summary ---
Author Organization [facility] Address [address] [place] [address] Care Team Providers Care Sales Project Manager Name Role Phone Sarah Juares MD Primary Care Provider Unav ailable Purvi Jeong [facility] Unavailable [phone] Lucas Nuno MD Unavailable [phone] Meghan Cox [facility] Unavailable [phone] Jose Tran MD Primary Care Provider [phone] Encounter Details Date Type Department Care Team (Late st Contact Info) Description 06/06/[address] [facility] [place] [phone] [facility] [address] [place] [address] Lucas Nuno MD [address] [facility] [address] [place] [address] Social History Tobacco Use Types Packs/Day Years Used Date Smoking Tobacco: Former Smokeless Tobacco: Never Alcohol Use Standard Drinks/Week Comments Not Currently 0 (1 standard drink = 0.6 oz pur e alcohol) rare PHQ-2 Answer Date Recorded PHQ-2 Score 0 02/22/2025 [place] Depression Scale Answer Date Recorded [place] Depression Score 1 07/06/2021 Last EPDS Self [...] in an abandoned building, in an overnight [place] [facility], or couch-surfing.) Yes 03/21/2025 Are you worried [...] AM CDT 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 Gender Identity Female 06/03/2022 7:36 AM CDT Sexual Orientation Straight 06/03/2022 7: 36 AM CDT documented as of this encounter Plan of Treatment Not on file documented as of this encounter Visit Diagnoses Not on filedocumented in this encounter Care Teams Sales Project Manager Relationship Specialty Start Date End Date Sarah Juares MD PCP - General Family Medicine 03/13/25 08/06/25 [place] [address] [place] [address] PCP - General Family Medicine 08/07/25 Purvi Jeong RPH [address] [place] [address] Pharmacist Pharmacist Glue Sprayer 01/03/25 Lucas Nuno MD [address] [place] [address] Assigned Surgical Provider 02/07/25 Meghan Cox RPH [address] [place] [address] Pharmacist Pharmacist Glue Sprayer 03/20/25 documented as of this encounter
--- OUTSIDE RECORDS SUMMARY | 2025-08-08 00:32 | XMS_ITS | CCD ---
Author Name Interface, [id number] [employer] Address [address] [place] [address] [address] [address] Organization [facility] Address [address] [facility] [address] [place] [address] Care Team Providers Care Electronic Publisher Name Role Phone Enzo Garg MD Unavailable [...]
--- OUTSIDE RECORDS SUMMARY | 2025-08-08 00:32 | XMS_ITS | Encounter Summary ---
Author Organization [facility] Address [facility] [place] [address] Care Team Providers Care Concert Pianist Name Role Phone [facility] [place] Primary Care Provider Leatha Wagner APRN [facility] Unavailable [phone] Mariana Acosta PA-C Unavailable + [phone] Sarah Juares MD Primary Care Provider Unav ailable Lucas Nuno MD Unavailable +- Mariana Acosta-C Unavailable [phone] Lucas Nuno MD Unavailable + Mariana Acosta PA-C Unavailable [phone] Purvi Jeong [facility] Unavailable [phone] Lucas Nuno MD Unavailable +- Meghan Cox [facility] Unavailable [phone] Jose Tran MD Primary Care Provider + [phone] Encounter Details Date Type Department Care Team (Late st Contact Info) Description 12/08/2021 [facility] [address] 4th [place] [address] Rita Gillespie, EMT Social History Tobacco Use Types Packs/Day Years Used Date Smoking Tobacco: Former Smokeless Tobacco: Never Alcohol Use Standard Drinks/Week Comments Not Currently 0 (1 standard drink = 0.6 oz pur e alcohol) [place] Depression Scale Answer Date Recorded [place] Depression Score 1 07/06/2021 Last EPDS Self Harm Result Not on file 07/06 Comments No Sex and Gender Information Value Date Recorded Sex Assigned at Female 06/03/2022 7:36 AM CDT 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 Gender Identity Female 06/03/2022 7:36 AM [...] documented as of this encounter Care Teams Concert Pianist Relationship Specialty Start Date End Date [facility] [place], [facility] [address] [place] [address] PCP - General 01/02/14 03/23/23 Sarah Juares MD [address] [place] [address] PCP - General Family Medicine 03/13/25 08/06/25 [place] [address] [place] [address] PCP - General Family Medicine 08/07/25 Leatha Wagner APRN CLIN[facility] SPECIALIST [facility]ASCULAR [address] [place] [address] [phone] Assigned Surgical Provider 11/02/21 09/04/22 Mariana Acosta PA-C [address] [address] Assigned Surgical Provider 09/05/22 12/09/23 Lucas Nuno MD [address] [address] Assigned Surgical Provider 12/10/23 01/07/24 Mariana Acosta PA-C [address] [address] Assigned Surgical Provider 01/08/24 03/08/24 Lucas Nuno MD [address] [address] Assigned Surgical Provider 03/09/24 12/09/24 Mariana Acosta PA-C [address] [address] Assigned Surgical Provider 12/10/24 02/06/25 Purvi Jeong [facility] [address] [place] [address] Pharmacist Pharmacist Pickle Water Pump Operator 01/03/25 Lucas Nuno MD [address] [address] Assigned Surgical Provider 02/07/25 Meghan Cox [facility] [address] [place] [address] Pharmacist Pharmacist Pickle Water Pump Operator 03/20/25 documented as of this encounter
--- OUTSIDE RECORDS SUMMARY | 2025-08-08 00:32 | XMS_ITS ---
Author Name Interface, [id number] lity Address [address] [facility] [address] [place] [address] Organization [facility] Address [address] [facility] [address] [address] Support Name Relationship Address Phone FREEDOM ALEMAN [...] CHART CHECK 5 OR N 07/05/2023 APPOINTMENT [facility] LOW UP 20 MIN 07/05/2023 APPOINTMENT [...] Enzo Garg [facility], [facility] [address] [phone] 0 Phone: () - 07/05 Iron profi le TIBC ug/dL 250.0 425.0 410 FINAL Enzo Garg [facility], [address] [phone] 0 Phone: () - 07/05 Iron profi le Iron ug/dL 50.0 175.0 43 Low FINAL Enzo Garg [facility], [address] [facility] [address] [phone] 0 Phone: () - 07/05 Iron profi le Unbou nd iron capac ity ug/dL 75.0 410.0 367 FINAL Enzo Garg [place] [address] [id number] 0 Phone: () - 07/05 Iron profi le Iron, % satur ation % 20.0 55.0 10 Low FINAL Enzo Garg [facility], [address] [phone] 0 Phone: () - 07/05 CBC w/ auto diff WBC K/uL 3.0 8.9 7.1 FINAL [facility] [place], [address] [place] [phone] 0 Phone: () - 07/05 CBC w/ auto diff HGB g/dL 11.3 15.2 11.5 FINAL [facility] [place], [address] [place] [phone] 0 Phone: () - 07/05 CBC w/ auto diff PLT K/uL 113.0 364.0 302 FINAL [facility] [place], [address] [place] [phone] 0 Phone: () - 07/05 CBC w/ auto diff Fly # (ANC) K/uL 1.6 6.6 4.5 FINAL [facility] [place], [address] [place] [phone] 0 Phone: () - 07/05 CBC w/ auto diff Fly % % 43.0 74.0 62.6 FINAL [facility] [place], [address] [place] [phone] 0 Phone: () - 07/05 CBC w/ auto diff IG % % 0.0 0.5 0.3 FINAL [facility] [place], [address] [place] [phone] 0 Phone: () - 07/05 CBC w/ auto diff IG # K/uL 0.0 0.03 0.02 FINAL [facility] [place], [address] [place] [phone] 0 Phone: () - 07/05 CBC w/ auto diff LY % % 14.0 41.0 29.7 FINAL [facility] [place], [address] [place] [phone] 0 Phone: () - 07/05 CBC w/ auto diff MO % % 6.0 15.0 5.9 Low FINAL [facility] [place], [address] [place] [phone] 0 Phone: () - 07/05 CBC w/ auto diff EO % % 0.0 7.0 1.4 FINAL [facility] [place], [address] [place] [phone] 0 Phone: () - 07/05 CBC w/ auto diff BA % % 0.0 2.0 0.1 FINAL [facility] [place], [address] [place] [phone] 0 Phone: () - 07/05 CBC w/ auto diff LY # K/uL 0.4 3.6 2.1 FINAL [facility] [place], [address] [place] [phone] 0 Phone: () - 07/05 CBC w/ auto diff MO # K/uL 0.2 1.3 0.4 FINAL [facility] [place], [address] [place] [phone] 0 Phone: () - 07/05 CBC w/ auto diff EO # K/uL 0.0 0.6 0.1 FINAL [facility] [place], [address] [place] [phone] 0 Phone: () - 07/05 CBC w/ auto diff BA # K/uL 0.0 0.2 0.0 FINAL [facility] [place], [address] [place] [phone] 0 Phone: () - 07/05 CBC w/ auto diff NRBC % #/100W BC 0.0 0.2 0.0 FINAL [facility] [place], [address] [place] [phone] 0 Phone: () - 07/05 CBC w/ auto diff RBC M/uL 3.9 5.1 3.81 Low FINAL [facility] [place], [address] [place] [phone] 0 Phone: () - 07/05 CBC w/ auto diff HCT % 35.0 48.0 35.8 FINAL [facility] [place], [address] [place] [phone] 0 Phone: () - 07/05 CBC w/ auto diff MCV fL 80.0 104.0 94.0 FINAL [facility] [place], [address] [place] [phone] 0 Phone: () - 07/05 CBC w/ auto diff MCH pg 26.0 35.0 30.2 FINAL [facility] [place], [address] [place] [phone] 0 Phone: () - 07/05 CBC w/ auto diff MCHC g/dL 30.0 35.0 32.1 FINAL [facility] [place], [address] [place] [phone] 0 Phone: () - 07/05 CBC w/ auto diff MPV fL 9.5 13.4 9.1 Low FINAL [facility] [place], [address] [place] [phone] 0 Phone: () - 07/05 CBC w/ auto diff RDW % 11.4 16.1 15.70 FINAL [facility] [place], [address] [place] [phone] 0 Phone: () - 01/19 [facility] other lab See gripper attacher d 02/17 [facility] other lab See gripper attacher d 03/14 [facility] other lab See gripper attacher d 03/27 [facility] other lab See attache patel 04/02 [facility] other lab See attache patel 04/06 [facility] other lab See attache patel Medications Date [...] Onc Consult <html><head></head><body><div style=text-align:center><span style=font- size:9px></span><span style=font-size:12px><span style=font-family:Somers,Helvetica,sans-serif><span class=clinicalNote MacroHighlighted id=[id number] macroname=PracticeLetterhead&quot ; spantype=macro title=#PracticeLetterhead><img evgodn=109 src=live/fileDownload?type=[email or web address]&chkdAipabihavlXv=[id number] jsjdj=500> </span></span></span>
</div><span style=font-size:12px"><span style=font-family:Somers,Helvetica,sans-serif>
<strong>Patient Name: </strong><span class=clinicalNoteMacroHighlighted id=&quo t;[id number] macroname=PatientName spantype=macro title=&q uot;#PatientName>KALEB ALEMAN CARDONA</span>
<strong>MRN: &lt ;/strong><span class=clinicalNoteMacroHighlighted id=[id number]& quot; macroname=PatientMRN spantype=macro title=#PatientMRN>[id number]</span>
<strong>Date of : </strong><span class=&qu ot;clinicalNoteMacroHighlighted id=[id number] macroname=Patient DateOfBirth spantype=macro title=#PatientDateOfBirth>1995< /span>
<strong>Date of Service: </strong><span class=clini calNoteMacroHighlighted id=[id number] macroname=EffectiveDate&qu ot; spantype=macro title=#EffectiveDate>07/05/2023</span></span& gt;</span>
<strong>Attending Physician: </strong><span class=clinicalNoteMacroHighlighted id=[id number] macroname= AttendingPhysician spantype=macro title=#AttendingPhysician>Enzo Garg (Hematology/Oncology)</span>
<strong>Referring Physician:</strong&g t; <span class=clinicalNoteMacroHighlighted id=[id number]& quot; macroname=ReferringPhysician spantype=macro title=#ReferringPhys ician> </span>

<div style=text-align:center><span style=font-size:12px><span style=font-family:Somers,Helvetica,sans- serif><strong>INITIAL HEMATOLOGY/MEDICAL ONCOLOGY CONSULTATIO N</strong></span></span>

</div><span style=font-size:12px><span style=font-family:Somers,Helvetica,sans-serif><span style=font- size:12px><span style=font-family:Somers,Helvetica,sans-serif&g t;</span></span><span class=clinicalNoteSectionShowSeparators clinicalNoteSecti onVisible id=[id number] internalbreaksection=false origi [...] to continue oral iron

<span style=font-size:12px&quo t;><span style=font-family:Somers,Helvetica,sans-serif><span class=clin icalNoteSectionShowSeparators clinicalNoteSectionVisible id=[id number]" internalbreaksection=false originalname=Advanced Care [...] pain planindicated for today's visit</span><span style=font-size:12px><span st yle=font-family:Somers,Helvetica,sans-serif>
<span style=font-size:1 2px><span style=font-family:Somers,Helvetica,sans-serif><span style=&qu ot;font-size:12px><span style=font-family:Somers,Helvetica,sans-serif><span style=font-size:12px><span style=font-family:Somers,Helvetica,sans-serif ><span style=font-family:Somers><span class=clinicalNoteSectionShowSeparators clinicalNoteSectionVisible id=[id number] internalbreaks ection=false originalname=Smoking Status recognizeconcepts=true spantype=section suppressempty=true>Smoking Status</span>
Smoking Status: <span class=clinicalNoteMacroHighlighted id=[id number] macroname=PatientSmokingStatus parameters=ValueIfNull:Not recor ded. spantype=macro title=#PatientSmokingStatus(ValueIfNull:Not recorded.)&q uot;>Smoking Tobacco : Former smoker, stopped smokin; Smokeless Tobacco : Never used smokeless tobacco; Vaping : Current vape user</span></span></span></span></spa n></span></span></span></span></span>

<span style=font-size:12px><span style=font-family:Somers,Helvetica,sans-serif><span style=font- size:12px><span style=font-family:Somers,Helvetica,sans-serif><span class=clinicalNoteSectionShowSeparators clinicalNoteSectionVisible" id=[id number] internalbreaksection=false originalname=&q uot;History of [...] History of Present Illness.
<span style=font-size:12px><span style=&q uot;font-family:Somers,Helvetica,sans-serif><span class=clinicalNoteSectionShowSeparators clinicalNoteSectionVisible id=[id number] internalbreaksection=false originalname=Past Medical History recognizeconcepts=true spantype=section suppressempty=false>Past Medical and Surgical History&l t;/span></span></span>
History of iron deficiency anemia

<span style=font-size:12px><span style=font-family:Somers,Helvetica,sans-s erif><span class=clinicalNoteSectionShowSeparators clinicalNoteSectionVisible" id=[id number] internalbreaksection=false originalname=Current Medications [...] Subcutaneous)</td> <td width=40%>07/05/2023</td> </tr> </tbody></table></span></span></span>
<span style=font-size:12px><span style=font-family:Somers,Helvetica,sans-serif><span class=&quo t;clinicalNoteSectionShowSeparators clinicalNoteSectionVisible id=[id number] internalbreaksection=false originalname=Allergies recognizeconcepts=true spantype=section suppressempty=false>Allergies</span>
<span class=clinicalNoteMacroHighlighted id=[id number] macroname=AllergyTable spantype=macro title=#AllergyTable"><table border=1 style=width:100%> <tbody> <tr> <td colspan=4>Current Allergy List</td> </tr> <tr> <td width="100px>Allergy Name</td> <td kynrr=691rz>Severity</td> <td tmzdw=658yw>Status</td> <td wtlud=173wy>Recording Date</td> </tr> <tr> <td cytzv=301bz>NSAIDS (Non- Steroidal Anti-Inflammatory Drug)</td> <td rkwpn=651lu>
</td> <td qpvoe=379vh>Active</td> <td jbqct=382tg>07/05/2023</td> </tr> <tr> <td asiix=379xt>Zithromax</td> <td muhyj=646iy>
</td> <td ybtxj=374oo>Active</td> <td lyyll=559vc">07/05/2023</td> </tr> </tbody></table></span></span></span>
<span style=font-size:12px><span style=font-family:Somers,Helvetica,sans-serif><span class=clinicalNoteSectionShowSeparators clinicalNoteSectionVisible id=[id number] internalbreaksection=false originalname=Family History recognizeconcepts=true spantype=section" suppressempty=false>Family History</span></span></span>
Maternal grandmother had DVT/PE, but this was in the setting of malignancy

<span style=font-size:12px><span style=font-family:Somers,Helvetica,sans- serif><span class=clinicalNoteSectionShowSeparators clinicalNoteSectionVisible" id=[id number] internalbreaksection=false originalname="Social History recognizeconcepts=true spantype=section suppressempty=true>Social History</span></span></span>
Has 2 children, ages 4 and 2. Former smoker, quit in 2016. No significant alcohol use.

<span style=font-size:12px><span style=font-family:Somers,Helvetica,sans- serif><span class=clinicalNoteSectionShowSeparators clinicalNoteSectionV isible id=[id number] internalbreaksection=false original name=Vital Signs and Pain Scale recognizeconcepts=true spantype=section suppressempty=false>Vital Signs</span>
<span class=cl inicalNoteMacroHighlighted id=[id number] macroname=PatientVita lSigns parameters=LookBackDays:1 spantype=macro title=#PatientVi talSigns(LookBackDays:1)>Blood pressure: 152/86, Pulse: 93, Temperature: 96 F, Respirations: 16, O2 sat: 99%, Pain Scale: 0, Height: 68.75 in, Weight: 297.2 lb, BSA: 2.44, BMI: 44.21 kg/m2</span></span></span>
<span style=font-size:12px><spanstyle=font-family:Somers,Helvetica,sans-serif><span style=font-size:12px"><span style=font-family:Somers,Helvetica,sans-serif>Immunizations: <span cl ass=clinicalNoteMacroHighlighted id=[id number] macroname=I mmunizations parameters=ValueIfNull:Not [...] <td>
</td> <td>
</td> </tr> </tbody></table></span>
<span class=clinicalNoteMacroHighsioux center healthed id=[id number] macroname=RecentLabResultsTable parameters=OptionalFlowsheetCategory:Chemistries,Label:Chemistries spantype=macro title=#RecentLabResultsTable(Option alFlowsheetCategory:Chemistries,Label:Chemistries)></span>
<span class=&q uot;clinicalNoteMacrNHighsioux center healthed id=[id number] macroname=RecentL abResultsTable parameters=OptionalFlowsheetCategory:Tumor Markers,Label:Tumor Markers" spantype=macro title=#RecentLabResultsTable(OptionalFlowsheetCategory:Tumor Ma rkers,Label:Tumor Markers)></span>
<span class=clinicalNoteMacroHig hlighted id=[id number] macroname=RecentLabResultsTable para meters=OptionalFlowsheetCategory:Anemia Labs,Label:Anemia Results spantype=macro" title=#RecentLabResultsTable(OptionalFlowsheetCategory:Anemia Labs,Label:Anemia Results)"></span></span></span>

<span class=clinicalNot eSectionShowSeparators clinicalNoteSectionVisible id=[id number] internalbreaksection=false originalname=Surveys/Consents/Other Discussions recognizeconcepts=true spantype=section suppressempty=true>Surveys/Consents/Other Discussions</span>

<hr><span style="font-size:12px><span style=font-family:Somers,Helvetica,sans-serif>
Thank you for allowing me to see [...]
--- OUTSIDE RECORDS SUMMARY | 2025-08-08 00:32 | XMS_ITS | Encounter Summary ---
Author Organization [place] Address [facility] [place] [address] Care Team Providers Care Reporting Coordinator Name Role Phone [facility] Primary Care Provider Leatha Wagner APRN [facility] Unavailable [phone] Mariana Acosta PA-C Unavailable + [phone] Sarah Juares MD Primary Care Provider Unav ailable Lucas Nuno MD Unavailable +- Mariana Acosta PA-C Unavailable [phone] Lucas Nuno MD Unavailable + Mariana Acosta PA-C Unavailable [phone] Purvi Jeong [facility] Unavailable [phone] Lucas Nuno MD Unavailable + Meghan Cox [facility] Unavailable [phone] Jose Tran MD Primary Care Provider + [phone] Encounter Details Date Type Department Care Team (Late st Contact Info) Description 10/23/2021 [facility] [address] [place] [address] Leatha Wagner APRN PATTERN FILER [address] [place] [address] Epigastric pain (Primary Dx); Gastroesophageal reflux disease with esophagitis, unspecified whether hemorrhage; RUQ abdominal pain Social History Tobacco Use Types Packs/Day Years Used Date Smoking Tobacco: Former Smokeless Tobacco: Never Alcohol Use Standard Drinks/Week Comments Not Currently 0 (1 standard drink = 0.6 oz pur e alcohol) [place] Depression Scale Answer Date Recorded [place] Depression Score 1 07/06/2021 Last EPDS Self Harm Result Not on file 07/06 Comments No Sex and Gender Information Value Date Recorded Sex Assigned at Female 06/03/2022 7:36 AM CDT 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 Gender Identity Female 06/03/2022 7:36 AM CDT [...] documented as of this encounter Care Teams Reporting Coordinator Relationship Specialty Start Date End Date [facility], [facility] [address] [place] [address] PCP - General 01/02/14 03/23/23 Sarah Juares MD [address] [facility] [address] [place] [address] PCP - General Family Medicine 03/13/25 08/06/25 [place] [address] [place] [address] PCP - General Family Medicine 08/07/25 Leatha Wagner APRN [address] [employer] [address] [place] [address] Assigned Surgical Provider 11/02/21 09/04/22 Mariana Acosta PA-C [address] [address] Assigned Surgical Provider 09/05/22 12/09/23 Lucas Nuno MD [address] 814[address] Assigned Surgical Provider 12/10/23 01/07/24 Mariana Acosta PA-C [address] [address] Assigned Surgical Provider 01/08/24 03/08/24 Lucas Nuno MD [address] [address] Assigned Surgical Provider 03/09/24 12/09/24 Mariana Acosta PA-C [address] [address] Assigned Surgical Provider 12/10/24 02/06/25 Purvi Jeong Melody [address] [place], [place] [address] Pharmacist Pharmacist Braided Rug Maker 01/03/25 Lucas Nuno MD [address] [address] Assigned Surgical Provider 02/07/25 Meghan Cox RPH [address] [place] [address] Pharmacist Pharmacist Braided Rug Maker 03/20/25 documented as of this encounter
--- OUTSIDE RECORDS SUMMARY | 2025-08-08 00:32 | XMS_ITS | CCD ---
Author Name Interface, [id number] lity Address [address] [place] [address] [address] [address] Organization [facility] Address [address] [facility] [address] [place] [address] Care Team Providers Care Beef Pluck Trimmer Name Role Phone Enzo Garg MD Unavailable [...]
--- OUTSIDE RECORDS SUMMARY | 2025-08-08 00:32 | XMS_ITS | Clinical Summary ---
Author Organization [facility] Address [address] [facility] [place] [address] Care Team Providers Care Last Putter Away Name Role Phone Mariluz Diamond MD Primary Care Provider Unavailab le Source Comments You are receiving this document as you are listed as the primary care provider,follow-up provider, or the patient has been referred to you for consultation.This is in compliance with the Medicare andPeoples Hospitalcaid EHR Incentive Program,which states Providers who transition their patient to another setting of careor provider of care or refers their patient to another provider of care shouldprovide summary care record for each transition of care or referral. [facility] Allerg[facility] Active Allergy Reactions Criticality Noted Date [...] (12/27/2020): 11/14/2018 LSIL. Plan: Pap due 10/2019 [facility] review: 05/2016: NILM 10/2018: LSIL (age 23) [...] contact Iwona Cordero, Healthy [facility] Specialist, at [phone]. 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 Does not exclude the possiblity of exposure to HCV. Blood Venipuncture / Unknown 05/22/2021 2:15 PM CDT 05/22/2021 2:15 PM CDT us Olivia Galvan MD LAB_1 Final Result [facility] [address] * HIV 1/2 Ag/Ab 4th Generation (12/19/2020 9:24 AM TOUR CONDUCTOR) HIV 1/2 Antigen/Antib chad (4th generation) Negative (Non Reactive) Negative (Non Reactive) 12/19/2020 1:00 PM TOUR CONDUCTOR [facility] Comment:HIV-1 p24 Antigen an d HIV-1/HIV-2 Antibody not detected Blood Venipuncture / Unknown 12/19/2020 9:24 AM TOUR CONDUCTOR 12/19/2020 9:24 AM TOUR CONDUCTOR us Xochitl Beard APRN, HALLIE LAB_1 Final R esult [facility] [address] [employer] [address] * PAP Test (12/19/2020 9:23 AM TOUR CONDUCTOR) Case Report Pap Case: [id number] Authorizing Provider: Xochitl Beard APRN, CNP Collected: 12/19/2020 0923 Ordering Location: [facility] Received: 12/19/2020 0939 Services-BIOMASS BOILER OPERATOR First Screen: Mariluz Loza CT (ASCP) Specimen: Pap Test, Diagnostic, Cervix/Endocervix 12/23/2020 4:03 PM TOUR CONDUCTOR [facility] Pap Specimen Adequacy Satisfactory for evaluation, endocervical/simental sformation zone component present. 12/23/2020 4:03 PM TOUR CONDUCTOR [facility] Pap Interpretation Negative for intraepithelial lesion or malignancy (NILM). 12/23/2020 4:03 PM TOUR CONDUCTOR [facility] at 1603 TOUR CONDUCTOR Pap Disclaimer The Pap test is a screening test designed to aid in the detection of cervical cancer and its precursor lesions. It is not a diagnostic procedure and should not be used as the sole means of detecting cervical cancer. Both false-positive and false-negative results may occur. 12/23/2020 4:03 PM TOUR CONDUCTOR [facility] Gross Description The specimen is received in SurePath fixative and properly labeled. 1 Pap-stained SurePath slide is prepared. 12/23/2020 4:03 PM TOUR CONDUCTOR [facility] Embedded Images 4:03 PM TOUR CONDUCTOR [facility] Other Specimen Type ENTIRE ENDOCERVIX / Unknown 12/19/2020 9:23 AM TOUR CONDUCTOR 12/19/2020 9:39 AM TOUR CONDUCTOR Comment:LMP: Patient's last menstrual period was 10/23/2020 (exact date). Xochitl Beard APRN, BUSINESS CONTINUITY CONSULTANT LAB PATHOLOGY Final R esult [facility] [address] [place] [address], [facility] from Last 3 Months or Most Recently Relevant to Health Maintenance Insurance [facility] Care Teams Last Putter Away Relationship Specialty Start Date End Date Mariluz Diamond MD PCP - General Family Practice 11/25/18
--- OUTSIDE RECORDS SUMMARY | 2025-08-08 00:32 | XMS_ITS | Patient Health Record ---
Author Organization [facility] Address [address] [place] [address] Care Team Providers Care Dispatch Associate Name Role Phone Stephane Castanona Primary Care [...] W/U Status Risk Notes Problem Anemia of (64031470) Anemia affecting in third trimester (O99.013) Active confirmed Plan Of Treatment Pending Test Test Name Order Date HEMOGLOBIN A1c 05/08/2019 Insurance Providers Payer Name Payer Address Payer Phone Subscriber Number Group Number Insured Name Patient Relationship to Insured Coverage Start Date Coverage End Date [employer] - (Client Bill) [place] [address] [id number] KALEB ALEMAN Self - patient is the insured Medical (General) History Medical History History ICD Code Pneumonia Former Smoker Anxiety and Depression Abnormal Pap Smear Post depression Surgical History Surgery Date(Month/Year) Gastric Sleeve 10/13/2016
--- OUTSIDE RECORDS SUMMARY | 2025-08-08 00:32 | XMS_ITS | Encounter Summary ---
Author Organization [place] Address [facility] [place] [address] Care Team Providers Care Glass Designer Name Role Phone [facility] [place] Primary Care Provider Leatha Wagner APRN [facility] Unavailable [phone] Mariana Acosta PA-C Unavailable + [phone] Sarah Juares MD Primary Care Provider Unav ailable Lucas Nuno MD Unavailable +- Mariana Acosta-C Unavailable +[phone] Lucas Nuno MD Unavailable + Mariana Acosta PA-C Unavailable +[phone] Purvi Jeong [facility] Unavailable [phone] Lucas Nuno MD Unavailable + Meghan Cox [facility] Unavailable [phone] Jose Tran MD Primary Care Provider + [phone] Encounter Details Date Type Department Care Team (Late st Contact Info) Description 12/10/2021 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 Gender Identity Female 06/03/2022 7:36 AM [...] documented as of this encounter Care Teams Glass Designer Relationship Specialty Start Date End Date [facility], [facility] [place] [address] PCP - General 01/02/14 03/23/23 Sarah Juares MD [address] [place] [id number] PCP - General Family Medicine 03/13/25 08/06/25 [place] [address] [place] [address] PCP - General Family Medicine 08/07/25 Leatha Wagner APRN POWER SUPPLY ENGINEER [address] [place] [address] [id number] Assigned Surgical Provider 11/02/21 09/04/22 Mariana Acosta PA-C [address] [address] Assigned Surgical Provider 09/05/22 12/09/23 Lucas Nuno MD [address] [address] Assigned Surgical Provider 12/10/23 01/07/24 Mariana Acosta PA-C [address] [address] Assigned Surgical Provider 01/08/24 03/08/24 Lucas Nuno MD [address] [address] Assigned Surgical Provider 03/09/24 12/09/24 Mariana Acosta PA-C [address] [address] Assigned Surgical Provider 12/10/24 02/06/25 Purvi Jeong [facility] [address] [place] [id number] Pharmacist Pharmacist Ecology Professor 01/03/25 Lucas Nuno MD [address] [address] Assigned Surgical Provider 02/07/25 Meghan Cox [facility] [address] [place] [address] Pharmacist Pharmacist Ecology Professor 03/20/25 documented as of this encounter
--- OUTSIDE RECORDS SUMMARY | 2025-08-08 00:32 | XMS_ITS | Encounter Summary ---
Author Organization [place] Address [facility] [place] [address] Care Team Providers Care Medical Review Specialist Name Role Phone [facility] [place] Primary Care Provider Leatha Wagner APRN [facility] Unavailable [phone] Mariana Acosta PA-C Unavailable + [phone] Sarah Juares MD Primary Care Provider Unav ailable Lucas Nuno MD Unavailable +- Mariana Acosta-C Unavailable +[phone] Lucas Nuno MD Unavailable + Mariana Acosta PA-C Unavailable [phone] Purvi Jeong [facility] Unavailable [phone] Lucas Nuno MD Unavailable + Meghan Cox [facility] Unavailable [phone] Jose Tran MD Primary Care Provider + [phone] Encounter Details Date Type Department Care Team (Late st Contact Info) Description 10/22/2021 [facility] [address] [place] [address] Luis Alberto Mastersoncy Social History Tobacco Use Types Packs/Day Years Used Date Smoking Tobacco: Former Smokeless Tobacco: Never Alcohol Use Standard Drinks/Week Comments Not Currently 0 (1 standard drink = 0.6 oz pur e alcohol) Burt Depression Scale Answer Date Recorded Burt Depression Score 1 07/06/2021 Last EPDS Self Harm Result Not on file 07/06 Comments No Sex and Gender Information Value Date Recorded Sex Assigned at Female 06/03/2022 7:36 AM CDT 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 [place] [address] PCP - General 01/02/14 03/23/23 Sarah Juares MD [address] [place] [id number] PCP - General Family Medicine 03/13/25 08/06/25 [place] [address] [place] [address] PCP - General Family Medicine 08/07/25 Leatha Wagner APRN AIR DIRECTOR [address] [place] [address] [id number] Assigned Surgical Provider 11/02/21 09/04/22 Mariana Acosta PA-C [address] [address] Assigned Surgical Provider 09/05/22 12/09/23 Lucas Nuno MD [address] [address] Assigned Surgical Provider 12/10/23 01/07/24 Mariaan Acosta PA-C [address] [address] Assigned Surgical Provider 01/08/24 03/08/24 Lucas Nuno MD [address] [address] Assigned Surgical Provider 03/09/24 12/09/24 Mariana Acosta PA-C [address] [address] Assigned Surgical Provider 12/10/24 02/06/25 Purvi Jeong [facility] [address] [place] [phone] Pharmacist Pharmacist Numerical Control Machine Operator 01/03/25 Lucas Nuno MD [address] [address] Assigned Surgical Provider 02/07/25 Meghan Cox [facility] [address] [place] [address] Pharmacist Pharmacist Numerical Control Machine Operator 03/20/25 documented as of this encounter
--- OUTSIDE RECORDS SUMMARY | 2025-08-08 00:33 | XMS_ITS | Clinical Summary ---
Author Organization [employer] [facility] Address [facility] [place] [address] Care Team Providers Care Route Sales Specialist Name Role Phone Pamela Jara DIRECTORY COMPILER Unavailable [phone] Paulina Mcgregor RN Unavailable [phone] Jose Tran MD Primary Care Provider [phone] Allergies Active Allergy Reactions Criticality Noted Date [...] AM CDT Emergency [facility] [address] [place] [address] Therese Herman, JUANITA Discharge Disposition: Home Self Care 07/31/2025 4:00 PM CDT Telemedicine [facility] [address] [place] [address] Jose Tran MD Medication Management (Pain and anxiety) 07/31/2025 Travel 07/26/2025 11:34 AM CDT - 07/27/2025 11:17 AM CDT Hospital Encounter [address] [address] Brooks Vidal MD Hospitalists, [facility] Zeynep Feliz MD [place], Vidu Bala, MBBS Nausea and vomiting, unspecified vomiting type (Primary Dx); Pulmonary embolism, unspecified chronicity, unspecified pulmonary embolism type, unspecified whether acute cor pulmonale present (HC) Discharge Disposition: Home Self Care 07/25/2025 5:35 PM CDT - 07/25/2025 10:56 PM CDT Emergency [address] [address] Amari Myrick MD Nausea and vomiting, unspecified vomiting type (Primary Dx); Hematuria, unspecified type; Anxiety; Retained tampon, initial encounter Discharge Disposition: Home Self Care 07/25/2025 Travel 07/20/2025 Refill [facility] [address] [place] [address] Jose Tran MD Refill Request (doxycycline monohydrate 100 mg capsule /tiZANidine (ZANAFLEX) 4 mg tablet /HYDROcodone-acetam inophen (5-325 mg/tablet) /Levonox 150mg/) 07/20/2025 Refill [facility] [address] [place] [address] Jose Tran MD Refill Request (Tizanidine) 07/16/2025 4:51 PM CDT - 07/16/2025 7:48 PM CDT Emergency [address] [address] Laurent Zuniga MD Syncope, unspecified syncope type (Primary Dx); Pleuritic chest pain Discharge Disposition: Home Self Care 07/16/2025 Travel 07/02/2025 11:40 AM CDT Telemedicine [facility] [address] [place] [address] Jose Tran MD Medication Management 07/02/2025 Travel 06/26/2025 Patient Outreach [facility] [address] [facility]3][place] [address] Lizzette Stark, ELIZABETH Primary RN Care Management; Hospital F/U (Pulmonary Embolism, DOD: 06/25/25, LACE+: 45) 06/21/2025 11:21 AM CDT - 06/25/2025 2:14 PM CDT Hospital Encounter [address] [address] Brooks Vidal MD Hospitalists, [facility] Brian Mosqueda MD Samimian, Pezhman, MD Pulmonary embolism, unspecified chronicity, unspecified pulmonary embolism type, unspecified whether acute cor pulmonale present (HC) (Primary Dx); B12 deficiency; Muscle spasm Discharge Disposition: Home Self Care 06/21/2025 Travel 06/15/2025 5:20 PM CDT - 06/15/2025 6:05 PM CDT Emergency [facility] [address] [place] [address] 06/05/2025 12:20 PM CDT Telemedicine [facility] [address] [place] [address] Sarah Juares MD Weight (Insurance no longer covers Zepbound, and patient would like to discuss other options); Telehealth; Chest Pain (Follow up [place] emergency room visit recently) 06/05/2025 Travel 05/25/2025 [...] on file Legal Sex Female 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 Gender Identity Not on file Sexual [...] 08/16/2025 1:00 PM CDT Nurse/Clinic Staff Only [facility] [address] [place] [address] [place] [address] 09/14/2025 1:00 PM DRUG INSPECTOR Nurse/Clinic Staff Only [facility] [address] [place] [address] 10/16/2025 1:00 PM DRUG INSPECTOR Nurse/Clinic Staff Only [facility] [address] [place] [address] 11/16/2025 1:00 PM DRUG INSPECTOR Nurse/Clinic Staff Only [facility] [address] [place] [address] 12/14/2025 1:00 PM DRUG INSPECTOR Nurse/Clinic Staff Only [facility] [address] [place] [address] 01/11/2026 1:00 PM CDT Nurse/Clinic Staff Only [facility] [address] [place] [address] 02/12/2026 1:00 PM CDT Nurse/Clinic Staff Only [facility] [address] [place] [address] 03/14/2026 1:00 PM CDT Nurse/Clinic Staff Only [facility] [address] [place] [address] Health Maintenance Due Date Last Done Comments [...] this topic Medical Devices Implanted Type Area Econometrician Device Identifier Shelf Expiration Date Model / Serial / Lot Mesh Ventral 60 Seamguard [place] Flex - [id number] Implanted:Qty: 1 on 10/13/2016 by Rajat Arias MD at [facility] N/A: Stomach W L Marshall 01/15/2019 [id number] / / [id number] Mesh Ventral 60 Seamguard [place] Flex - [id number] Implanted:Qty: 3 on 10/13/2016 by Rajat Arias MD at [facility] N/A: Stomach W L Marshall 07/17/2019 [id number] / / [id number] Mesh Ventral 60 Seamguard [place] Flex - [id number] Implanted:Qty: 1 on 10/13/2016 by Rajat Arias MD at [facility] N/A: Stomach W L Marshall 12/15/2018 [id number] / / [id number] Procedures Procedure Name Priority Date/Time Associated Diagnosis [...] 12 LEAD STAT 06/21/2025 11:07 AM CDT REMEDIATION TECHNICIAN THIN PREP PAP SCREEN IMAGED Routine 11/14/2018 3:00 PM DRUG INSPECTOR Uses contraception from Last 3 Months or Most Recently Relevant to Health Maintenance Results * ALT (SGPT) (07/27/2025 6:48 AM CDT) ALT (SGPT) 21 10 - 35 IU/L 07/27/2025 7:48 AM CDT [facility] Blood BLOOD SPECIMEN / Unknown Butterfly / Unknown 07/27/2025 6:48 AM CDT 07/27/2025 7:25 AM CDT us Zeynep Feliz MD CHEMISTRY Final Res ult [facility] [address] [place] [address] * AST (SGOT) (07/27/2025 6:48 AM CDT) AST (SGOT) 34 10 - 35 IU/L 07/27/2025 7:48 AM CDT [facility] Blood BLOOD SPECIMEN / Unknown Butterfly / Unknown 07/27/2025 6:48 AM CDT 07/27/2025 7:25 AM CDT us Zeynep Feliz MD CHEMISTRY Final Res ult Performing Organization Address City/[facility]/ZIP Co de Phone Number [address] [address] * (ABNORMAL) HEMOGLOBIN (07/27/2025 5:29 AM CDT) Only the most recent of6 resultswithin the time period is included. HEMOGLOBIN 9.8(L) 12.0 - 16.0 g/dL 07/27/2025 6:05 AM CDT [facility] MCV 109(H) 80 - 100 fL 07/27/2025 6:05 AM CDT [facility] Blood BLOOD SPECIMEN / Unknown Venipuncture / Unknown 07/27/2025 5:29 AM CDT 07/27/2025 5:58 AM CDT us Zeynep Feliz MD HEMATOLOGY Final Res ult Performing Organization Address City/[facility]/ZIP Co de Phone Number [address] [address] * DRUG SCREEN RAPID URINE INHOUSE (07/27/2025 4:22 AM CDT) THC METABOLITES,RICHA L Not Detected Not Detected 07/27/2025 10:00 AM CDT [facility] PCP,QUAL Not Detected Not Detected 07/27/2025 10:00 AM CDT [facility] COCAINE,QUAL Not Detected Not Detected 07/27/20 10:00 AM CDT [facility] METHAMPHETAMINE , QUALITATIVE Not Detected Not Detected 07/27/2025 10:00 AM CDT [facility] OPIATES,QUAL Not Detected Not Detected 07/27/20 10:00 AM CDT [facility] AMPHETAMINE, QUALITATIVE Not Detected Not Detected 07/27/2025 10:00 AM CDT [facility] BENZODIAZEPINES ,QUAL Not Detected Not Detected 07/27/2025 10:00 AM CDT [facility] TRICYCLICS,QUAL Not Detected Not Detected 07/27 10:00 AM CDT [facility] METHADONE, QUALITATIVE Not Detected Not Detected 07/27/2025 10:00 AM CDT [facility] BARBITURATES,QU AL Not Detected Not Detected 07/27/2025 10:00 AM CDT [facility] OXYCODONE, QUALITATIVE Not Detected Not Detected 07/27/2025 10:00 AM CDT [facility] BUPRENORPHINE, QUALITATIVE Not Detected Not Detected 07/27/2025 10:00 AM T [facility] Urine URINE SPECIMEN / Unknown Non-Blood / Unknown 07/27/2025 4:22 AM CDT 07/27/2025 4:27 AM CDT Narrative [facility] - 07/27/2025 10:00 AM CDT Please Note: [...] URINE Final Res ult Performing Organization Address [facility] de Phone Number [address] [address] * (ABNORMAL) URINALYSIS MICROSCOPIC (07/27/2025 4:22 AM CDT) Only the most recent of2 resultswithin the time period is included. RBC 0-2 0-2, None Seen /HPF 07/27/2025 4:45 AM CDT [facility] WBC 11-25(A) 0-2, 3-5, None Seen /HPF 07/27/2025 4:45 AM CDT [facility] BACTERIA Rare None Seen, Rare, Few Bacteria/ HPF 07/27/2025 4:45 AM CDT [facility] EPITHELIAL CELLS Few None Seen, Few Epi/HPF 07/27/2025 4:45 AM CDT [facility] Mucus Present 07/27/2025 4:45 AM CDT [facility] WHITE CELL CLUMPS Present(A) (none) 07/27/2025 4:45 AM CDT [facility] Urine URINE SPECIMEN / Unknown Non-Blood / Unknown 07/27/2025 4:22 AM CDT 07/27/2025 4:27 AM CDT us Zeynep Feliz MD URINE Final Res ult Performing Organization Address [facility] Co de Phone Number [address] [address] * (ABNORMAL) URINE CULTURE (07/27/2025 4:22 AM CDT) CULTURE RESULT(A) 07/29/2025 8:01 AM CDT [facility] CULTURE <10,000 CFU/mL Escherichia coli 07/29/2025 8:01 AM CDT [facility] CULTURE <10,000 CFU/mL Multiple organisms probable contaminants 07/29/2025 8:01 AM CDT [facility] Urine URINE SPECIMEN / Unknown Non-Blood / Unknown 07/27/2025 4:22 AM CDT 07/27/2025 4:27 AM CDT Lorene Shanks NP MICROBIOLOGY Final Result [facility] [address] [place] [address], [place] * (ABNORMAL) UA W/ SEDIMENT EXAM REFLEXED PER CRITERIA (07/27/2025 4:22 AM CDT) Only the most recent of2 resultswithin the time period is included. COLOR Yellow Yellow Color 07/27/2025 4:33 AM CDT [facility] CLARITY Clear Clear Clarity 07/27/2025 4:33 AM T [facility] SPECIFIC GRAVITY,URINE >=1.030(A) 1.010, 1.015, 1.020, 1.025 07/27/2025 4:33 AM T [facility] PH,URINE 5.5 6.0, 7.0, 8.0, 5.5, 6.5, 7.5, 8.5 07/27/2025 4:33 AM T [facility] UROBILINOGEN,QU ALITATIVE Normal Normal EU/dl 07/27/2025 4:33 AM [facility] PROTEIN, URINE Negative Negative mg/dL 07/27/2025 4:33 AM T [facility] GLUCOSE, URINE Negative Negative mg/dL 07/27/2025 4:33 AM T [facility] KETONES,URINE Negative Negative mg/dL 07/27/2025 4:33 AM T [facility] BILIRUBIN,URINE Abnormal(A) Negative 07/27/20 4:33 AM T [facility] Comment:A variety of metabol ites and/or medications may result in a positive bilirubin result. Clinical correlation is recommended. OCCULT BLOOD,URINE Moderate(A) Negative 07/27/2025 4:33 AM T [facility] NITRITE Negative Negative 07/27/2025 4:33 AM T [facility] LEUKOCYTE ESTERASE Negative Negative 07/27/2025 4:33 AM CDT [facility] Urine URINE SPECIMEN / Unknown Non-Blood / Unknown 07/27/2025 4:22 AM CDT 07/27/2025 4:27 AM CDT us Zeynep Feliz MD URINE Final Res ult Performing Organization Address City/[facility] Co de Phone Number [facility] [address] [place] [address] * EKG 12 LEAD (07/26/2025 12:17 PM CDT) Only the most recent of6 resultswithin the time period is included. Pathologist [facility] Interpretation Normal sinus rhythm T wave abnormality, consider anterior ischemia Prolonged QT Abnormal ECG BEYOND NOW Ventricular Rate 67 BPM BEYOND NOW Atrial Rate 67 BPM BEYOND NOW P-R Interval 142 ms BEYOND NOW QRS Duration 82 ms BEYOND NOW QT 436 ms BEYOND NOW QTc 460 ms BEYOND NOW P Tensed 25 degrees BEYOND NOW R Tensed 59 degrees BEYOND NOW T Tensed 14 degrees BEYOND NOW 07/26/2025 12:1 7 PM CDT 07/29/2025 10:42 PM CDT us Brooks Vidal MD EKG ORD Final R esult Performing Organization Address [facility] Co de Phone Number BEYOND NOW [place], [place] * (ABNORMAL) CBC WITH AUTO DIFFERENTIAL (07/26/2025 11:49 AM CDT) Only the most recent of4 resultswithin the time period is included. WHITE BLOOD COUNT 5.9 4.5 - 11.0 thou/cu mm 07/26/2025 12:39 PM CDT [facility] RED BLOOD COUNT 3.26(L) 4.00 - 5.20 mil/cu mm 07/26/2025 12:39 PM CDT [facility] HEMOGLOBIN 11.8(L) 12.0 - 16.0 g/dL 07/26/2025 12:39 PM CDT [facility] HEMATOCRIT 34.1 33.0 - 51.0 % 07/26/2025 12:39 PM CDT [facility] MCV 105(H) 80 - 100 fL 07/26/2025 12:39 PM CDT [facility] MCH 36.2(H) 26.0 - 34.0 pg 07/26/2025 12:39 PM CDT [facility] MCHC 34.6 32.0 - 36.0 g/dL 07/26/2025 12:39 PM CDT [facility] RDW 15.0 11.5 - 15.5 % 07/26/2025 12:39 PM CDT [facility] PLATELET COUNT 231 140 - 440 thou/cu mm 07/26/2025 12:39 PM CDT [facility] MPV 10.0 6.5 - 11.0 fL 07/26/2025 12:39 PM CDT [facility] NRBC 0.0 % 07/26/2025 12:39 PM CDT [facility] ABS NRBC 0.0 thou /cu mm 07/26/2025 12:39 PM CDT [facility] % NEUT 69.0 % 07/26/2025 12:39 PM CDT [facility] % LYMPH 21.4 % 07/26/2025 12:39 PM CDT [facility] % MONO 6.6 % 07/26/2025 12:39 PM CDT [facility] % EOS 2.4 % 07/26/2025 12:39 PM CDT [facility] % BASO 0.3 % 07/26/2025 12:39 PM CDT [facility] % IMMATURE GRAN (METAS,MYELOS,TX OS) 0.3 % 07/26/2025 12:39 PM CDT [facility] ABSOLUTE NEUTROPHILS 4.1 1.7 - 7.0 thou/cu mm 07/26/2025 12:39 PM CDT [facility] ABSOLUTE LYMPHOCYTES 1.3 0.9 - 2.9 thou/cu mm 07/26/2025 12:39 PM CDT [facility] ABSOLUTE MONOCYTES 0.4 <0.9 thou/cu mm 07/26/2025 12:39 PM CDT [facility] ABSOLUTE EOSINOPHILS 0.1 <0.5 thou/cu mm 07/26/2025 12:39 PM CDT [facility] ABSOLUTE BASOPHILS 0.0 <0.3 thou/cu mm 07/26/2025 12:39 PM CDT [facility] ABSOLUTE IMMATURE GRANULOCYTES(MET ,MYELOS,PROS) 0.0 <0.3 thou/cu mm 07/26/2025 12:39 PM CDT [facility] Blood BLOOD SPECIMEN / Unknown IV Start / Unknown 07/26/2025 11:49 AM CDT 07/26/2025 11:53 AM CDT us Brooks Vidal MD HEMATOLOGY Final R esult Performing Organization Address City/[facility]/ZIP Co de Phone Number [address] [address] * EXTRA TUBE LIGHT GREEN (07/26/2025 11:49 AM CDT) Blood BLOOD SPECIMEN / Unknown IV Start / Unknown 07/26/2025 11:49 AM CDT 07/26/2025 11:53 AM CDT us Brooks Vidal MD LABORATORY Final R esult Performing Organization Address City/[facility]/ZIP Co de Phone Number [address] [address] * EXTRA TUBE LAVENDER (07/26/2025 11:49 AM CDT) Blood BLOOD SPECIMEN / Unknown IV Start / Unknown 07/26/2025 11:49 AM CDT 07/26/2025 11:53 AM CDT us Brooks Vidal MD LABORATORY Final R esult [address] [address] * EXTRA TUBE PERALTA (07/26/2025 11:49 AM CDT) Blood BLOOD SPECIMEN / Unknown IV Start / Unknown 07/26/2025 11:49 AM CDT 07/26/2025 11:53 AM CDT us Brooks Vidal MD LABORATORY Final R esult Performing Organization Address City/[facility] Co de Phone Number [address] [address] * EXTRA TUBE BLUE (07/26/2025 11:49 AM CDT) Blood BLOOD SPECIMEN / Unknown IV Start / Unknown 07/26/2025 11:49 AM CDT 07/26/2025 11:53 AM CDT Brooks Vidal MD LABORATORY Final R lydia Performing Organization Address [facility] de Phone Number [address] [address] * PROTIME-INR (07/26/2025 11:49 AM CDT) Only the most recent of2 resultswithin the time period is included. INR 1.0 <1.3 07/26/2025 1:34 PM CDT [facility] PROTIME 11.8 10.6 - 12.4 sec 07/26/2025 1:34 PM CDT [facility] Blood BLOOD SPECIMEN / Unknown IV Start / Unknown 07/26/2025 11:49 AM CDT 07/26/2025 11:53 AM CDT Narrative [facility] - 07/26/2025 1:34 PM CDT Therapeutic Range [...] HEMATOLOGY Final R esult Performing Organization Address [facility] Co de Phone Number [address] [address] * (ABNORMAL) HEPATIC FUNCTION PANEL (07/26/2025 11:49 AM CDT) Only the most recent of2 resultswithin the time period is included. ALBUMIN 4.1 4.0 - 4.9 g/dL 07/27/2025 12:13 AM CDT [facility] PROTEIN,TOTAL 6.7 6.0 - 8.0 g/dL 07/27/2025 12:13 AM CDT [facility] BILIRUBIN,TOTAL 1.0 0.0 - 1.2 mg/dL 07/27/2025 12:13 AM CDT [facility] BILIRUBIN,DIRECT 0.4(H) 0.0 - 0.2 mg/dL 07/27/2025 12:13 AM CDT [facility] BILIRUBIN,INDIRE CT 0.6 0.2 - 0.8 mg/dL 07/27/2025 12:13 AM CDT [facility] ALK PHOSPHATASE 57 35 - 104 IU/L 07/27/2025 12:13 AM CDT [facility] ALT (SGPT) 27 10 - 35 IU/L 07/27/2025 12:13 AM CDT [facility] AST (SGOT) 52(H) 10 - 35 IU/L 07/27/2025 12:13 AM CDT [facility] Blood BLOOD SPECIMEN / Unknown IV Start / Unknown 07/26/2025 11:49 AM CDT 07/26/2025 11:53 AM CDT us Zeynep Feliz MD CHEMISTRY Final Res ult [facility] [address] [place] [address] * (ABNORMAL) BASIC METABOLIC PANEL (07/26/2025 11:49 AM CDT) Only the most recent of4 resultswithin the time period is included. SODIUM 142 136 - 145 mmol/L 07/26/2025 1:42 PM CDT [facility] POTASSIUM 3.7 3.5 - 5.1 mmol/L 07/26/2025 1:42 PM CDT [facility] CHLORIDE 105 98 - 107 mmol/L 07/26/2025 1:42 PM CDT [facility] CO2,TOTAL 23 22 - 29 mmol/L 07/26/2025 1:42 PM CDT [facility] ANION GAP 14 5 - 18 07/26/2025 1:42 PM CDT [facility] GLUCOSE 85 70 - 99 mg/dL 07/26/2025 1:42 PM CDT [facility] CALCIUM 9.3 8.8 - 10.4 mg/dL 07/26/2025 1:42 PM CDT [facility] Comment: Reference ranges for this test were updated on 08/22/2024 to reflect our healthy population more accurately. Reference range changes are not retroactively applied to results, but previous results using the same methodology can be interpreted in the context of the new reference range. BUN 5(L) 6 - 20 mg/dL 07/26/2025 1:42 PM CDT [facility] CREATININE 0.71 0.50 - 0.90 mg/dL 07/26/2025 1:42 PM CDT [facility] BUN/CREAT RATIO 7(L) 10 - 20 1:42 PM CDT [facility] eGFR >90 >90 mL/min/1.7 3m2 07/26/2025 1:42 PM CDT [facility] Comment:As of 2021, eG FR is calculated [...] Brooks Vidal MD CHEMISTRY Final R esult [facility] [address] [place] [address] * CT ABDOMEN PELVIS STONE PROTOCOL WO [...] - 60.0 IU/L 07/25/2025 6:49 PM CDT [facility] Blood BLOOD SPECIMEN / Unknown IV Start / Unknown 07/25/2025 6:25 PM CDT 07/25/2025 6:29 PM CDT us Amari Myrick MD CHEMISTRY Final Resu lt [facility] [address] [place] [address] * CT CHEST PE STUDY (07/16/2025 6:48 [...] low as reasonably achievable. Dictated by Jordin Velzi MD @ 07/16/2025 7:34:02 PM (Electronically Signed) [...] the right lower lobe (series number 5, -[id number]). No focal airspace consolidation, pleural effusion, or [...] 6-10 ng/L ng/L 07/16/2025 6:40 PM CDT [facility] Blood BLOOD SPECIMEN / Unknown IV Start / Unknown 07/16/2025 5:57 PM CDT 07/16/2025 6:02 PM CDT Narrative [facility] - 07/16/2025 6:40 PM CDT hs-cTnT ([employer] [...] Laurent Zuniga MD CHEMISTRY Final Resul t [address] [address] * ,SERUM QUALITATIVE (07/16/2025 5:57 PM CDT) Only the most recent of2 resultswithin the time period is included. ,SERU M Negative Negative 07/16/2025 6:26 PM CDT [facility] Blood BLOOD SPECIMEN / Unknown IV Start / Unknown 07/16/2025 5:57 PM CDT 07/16/2025 6:02 PM CDT us Laurent Zuniga MD CHEMISTRY Final Resul t [address] [address] * (ABNORMAL) PRO-BNP (07/16/2025 5:57 PM CDT) PRO-BNP 166(H) <125 pg/mL 07/16/2025 6:45 PM CDT [facility] Blood BLOOD SPECIMEN / Unknown IV Start / Unknown 07/16/2025 5:57 PM CDT 07/16/2025 6:02 PM CDT Narrative [facility] - 07/16/2025 6:45 PM CDT The following [...] Zuniga MD SEND OUTS Final Resul t [address] [address] * PLATELET COUNT (06/25/2025 6:45 AM CDT) Only the most recent of4 resultswithin the time period is included. PLATELET COUNT 195 140 - 440 thou/cu mm 06/25/2025 6:52 AM CDT [facility] MPV 8.6 6.5 - 11.0 fL 06/25/2025 6:52 AM CDT [facility] Blood BLOOD SPECIMEN / Unknown Butterfly / Unknown 06/25/2025 6:45 AM CDT 06/25/2025 6:50 AM CDT us Courtney Oneil MD HEMATOLOGY Final Result Performing Organization Address City/[facility]/ZIP Co de Phone Number [address] [address] * TROPONIN T (HS) ONE TIME (06/23/2025 6:37 AM CDT) Only the most recent of2 resultswithin the time period is included. TROPONIN T HS <6 6-10 ng/L ng/L 06/23/2025 7:18 AM CDT [facility] Blood BLOOD SPECIMEN / Unknown Venipuncture / Unknown 06/23/2025 6:37 AM CDT 06/23/2025 6:56 AM CDT us John Handy NP CHEMISTRY Final Result Performing Organization Address City/[facility] Co de Phone Number [address] [address] * WHITE BLOOD COUNT (06/23/2025 3:55 AM CDT) WHITE BLOOD COUNT 5.2 4.5 - 11.0 thou/cu mm 06/23/2025 4:01 AM CDT [facility] NRBC 0.4 % 06/23/2025 4:01 AM CDT [facility] ABS NRBC 0.0 thou /cu mm 06/23/2025 4:01 AM CDT [facility] Blood BLOOD SPECIMEN / Unknown Venipuncture / Unknown 06/23/2025 3:55 AM CDT 06/23/2025 3:59 AM CDT us Courtney Oneil MD HEMATOLOGY Final Result Performing Organization Address City/[facility] Co de Phone Number [address] [address] * CREATININE (06/23/2025 3:55 AM CDT) eGFR >90 >90 mL/min/1.7 3m2 06/23/2025 4:18 AM CDT [facility] Comment:As of 2021, eG FR is calculated by the CKD-EPI creatinine equation without race adjustment. eGFR can be influenced by muscle mass, exercise, and diet. The reported eGFR is an estimation only and is only applicable if the renal function is stable. CREATININE 0.76 0.50 - 0.90 mg/dL 06/23/2025 4:18 AM CDT [facility] Blood BLOOD SPECIMEN / Unknown Venipuncture / Unknown 06/23/2025 3:55 AM CDT 06/23/2025 3:59 AM CDT us Courtney Oneil MD CHEMISTRY Final Result Performing Organization Address City/[facility] [place]/[facility] Co de Phone Number [address] [address] * (ABNORMAL) APTT (06/22/2025 3:49 PM CDT) Only the most recent of4 resultswithin the time period is included. APTT 59(H) 25 - 36 sec 06/22/2025 4:29 PM CDT [facility] Blood BLOOD SPECIMEN / Unknown Butterfly / Unknown 06/22/2025 3:49 PM CDT 06/22/2025 4:18 PM CDT Narrative [facility] - 06/22/2025 4:29 PM CDT Therapeutic Range: 59-89 seconds Brooks Vidal MD HEMATOLOGY Final R esult Performing Organization Address City/[facility] [place]/ZIP Co de Phone Number [address] [address] * CT NECK SOFT TISSUE W (06/22/2025 [...] @ 06/22/2025 3:50:51 PM (Electronically Signed) Courtney nOeil MD CT Final Result * CT VENOGRAM [...] - 34.8 ng/mL 06/22/2025 8:21 PM CDT [facility] Blood BLOOD SPECIMEN / Unknown Butterfly / Unknown 06/22/2025 10:51 AM CDT 06/22/2025 11:05 AM CDT Narrative [facility] - 06/22/2025 8:21 PM CDT Biotin supplements may cause clinically significant interference for this test assay. If interference is suspected, it is strongly recommended that biotin is discontinued for at least one week prior to retesting. Courtney Oneil MD CHEMISTRY Final Result Performing Organization Address [facility] Co de Phone Number [facility] [address] [place] [address], * (ABNORMAL) VITAMIN B12 (06/22/2025 10:51 AM CDT) Pathologist [facility] VITAMIN B12 <150(L) 232 - 1,245 pg/mL 06/22/2025 7:51 PM CDT [facility] Blood BLOOD SPECIMEN / Unknown Butterfly / Unknown 06/22/2025 10:51 AM CDT 06/22/2025 11:05 AM CDT Narrative [facility] - 06/22/2025 7:51 PM CDT Biotin supplements may cause clinically significant interference for this test assay. If interference is suspected, it is strongly recommended that biotin is discontinued for at least one week prior to retesting. Courtney Oneil MD CHEMISTRY Final Result Performing Organization Address [facility] de Phone Number [facility] [address] [place] [address], * ECHO TTE COMPLETE WO CONTRAST (06/22/2025 8:14 AM CDT) Pathologist [facility] AORTIC VALVE MEAN PG 3 mmHg LVEDD 5.0 cm EJECTION FRACTION 65 - 70% Anatomical Region Laterality Modality Ultrasound 06/22/2025 7:36 AM CDT Narrative 06/22/2025 11:43 AM CDT ECHOCARDIOGRAM KARO SPANNTERRY : 1995 30 years Study Date: 06/22/2025 7:36:23 AM Gender: F BP: 90/47 mmHg Height: 175.00 cm BSA: 2.35 m Weight: 123.00 kg Tech: [facility] Referring MD: BRIAN MOSQUEDA Site: [facility] Patient Location: Inpatient. Procedure: 2D, Color Doppler, [...] . This study was interpreted by an [facility] accredited facility. Final Procedure Note Hesham Hough MD - 06/22/2025 ECHOCARDIOGRAM KARO ALEMANSaulBRENDAN : 1995 30 years Study Date: 06/22/2025 7:36:23 AM Gender: F BP: 90/47 mmHg Height: 175.00 cm BSA: 2.35 m Weight: 123.00 kg Tech: [facility] Referring MD: BRIAN MOSQUEDA Site: [facility] Reading Location: [facility] Patient Location: Inpatient. Procedure: 2D, Color Doppler, [...] . This study was interpreted by an [facility] accredited facility. Final us Brian [...] Vidal MD Final R esult * (ABNORMAL) REMEDIATION TECHNICIAN THIN PREP PAP SCREEN IMAGED (11/14/2018 3:00 PM DRUG INSPECTOR) Case Report Gynecologic Cytology Report Case: [id number] [facility] Collected: 11/14/2018 1500 Ordering Location: [facility] Received: 11/14/2018 1528 Clinic First Screen: Milagro Johnson Pathologist: Octavio Zhang Jr., MD Specimen: REMEDIATION TECHNICIAN ThinPrep Vial Screening, Cervical 11/25/2018 5:50 PM DRUG INSPECTOR [facility] INTERPRETATION/ RESULT LOW GRADE SQUAMOUS INTRAEPITHELIAL LESION (LSIL)(A) (none) 11/25/2018 5:50 PM DRUG INSPECTOR [facility] at 1750 DRUG INSPECTOR SPECIMEN ADEQUACY Satisfactory for evaluation Endocervical component present 11/25/2018 5:50 PM DRUG INSPECTOR [facility] HPV REQUEST HPV if ASCUS 11/25/2018 5:50 PM DRUG INSPECTOR [facility] Date of LMP 10/24/2018 11/25/2018 5:50 PM DRUG INSPECTOR [facility] Last Pap Date 06/26/16 11/25/2018 5:50 PM DRUG INSPECTOR [facility] Last Pap Result NIL 5:50 PM DRUG INSPECTOR [facility] Abnormal Pap or [place] Bx in last 5 years No 11/25/2018 5:50 PM DRUG INSPECTOR [facility] Menstrual Status Regular Periods 11/25/2018 5:50 PM DRUG INSPECTOR [facility] [place] Bx Done Today No 11/25/2018 5:50 PM DRUG INSPECTOR [facility] Additional Information None given 11/25/2018 5:50 PM DRUG INSPECTOR [facility] Automated Review Successful 11/25/2018 5:50 PM DRUG INSPECTOR [facility] Comment:Specimen processed s uccessfully by automated rural health consultant device, ThinPrep Imaging System, [employer] Note The pap test is a [...] lesions. Cytology is screened and interpreted at [facility] - [address], [place] [address] and [facility] - [address]; [place] [address] and [facility] - [address]; [place] [address] and [facility] [address]; [place] [address] 11/25/2018 5:50 PM DRUG INSPECTOR [facility] Other (Cervical) Non-Blood / Unknown 11/14/2018 3:00 PM DRUG INSPECTOR 11/14/2018 3:28 PM DRUG INSPECTOR us Mariluz Diamond MD PATHOLOGY/CYTOLOGY Final Re sult [facility] [address] [place] [address], [place] from Last 3 Months or Most Recently Relevant to Health Maintenance Insurance [facility] OF [place] [employer] [employer] Member Subscriber Plan / Payer (Ef fective 2014-Present) Name:Karo Lilly Relation to Subscriber:Self Name:Karo Lilly Payer ID:Not on file Group ID:Not on file Type:Not on file Address: [address] [place] [id number] Advance Directives * Full Code (Latest Code [...] 9:09 AM 10/14/2016 8:10 PM Care Teams Route Sales Specialist Relationship Specialty [place] [address] [place] [address] PCP - General Family Practice 06/05/24 Pamela Jara NP Nurse Practitioner Nurse Practitioner - Adult 08/06/20 Paulina Mcgregor RN Registered Nurse Registered Nurse 08/06/20
--- OUTSIDE RECORDS SUMMARY | 2025-08-08 00:33 | XMS_ITS | Encounter Summary ---
Author Organization [facility] Address [address] [facility] [place] [address] Care Team Providers Care Lithographic Artist Name Role Phone Sarah Juares MD Primary Care Provider Mariana ChadwickC Unavailable + [phone] Purvi Jeong [facility] Unavailable [phone] Lucas Nuno MD Unavailable [phone] Meghan Cox [facility] Unavailable [phone] Jose Tran MD Primary Care Provider [phone] Encounter Details Date Type Department Care Team (Late st Contact Info) Description 01/25/2025 [facility] [address] [place] [address] Anastasia [place]ina, RN Social History Tobacco Use Types Packs/Day Years Used Date Smoking Tobacco: Former Smokeless Tobacco: Never Alcohol Use Standard Drinks/Week Comments Not Currently 0 (1 standard drink = 0.6 oz pur e alcohol) rare PHQ-2 Answer Date Recorded PHQ-2 Score 0 11/15/2024 [place] Depression Scale Answer Date Recorded [place] Depression Score 1 07/06/2021 Last EPDS Self [...] CDT 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 Gender Identity Female 06/03/2022 7:36 AM CDT Sexual Orientation Straight 06/03/2022 7: 36 AM CDT documented as of this encounter Plan of Treatment Not on file documented as of this encounter Visit Diagnoses Not on filedocumented in this encounter Care Teams Lithographic Artist Relationship Specialty Start Date End Date Sarah Juares MD PCP - General Family Medicine 03/13/25 08/06/25 [place] [address] [place] [address] PCP - General Family Medicine 08/07/25 Mariana Acosta PA-C [address] [place] [address] Assigned Surgical Provider 12/10/24 02/06/25 Purvi Jeong [facility] [address] [place] [id number] Pharmacist Pharmacist Personal Development Coach 01/03/25 Lucas Nuno MD [address] [place] [address] Assigned Surgical Provider 02/07/25 Meghan Cox, [facility] [address] [place] [address] Pharmacist Pharmacist Personal Development Coach 03/20/25 documented as of this encounter
--- OUTSIDE RECORDS SUMMARY | 2025-08-08 00:33 | XMS_ITS ---
Author Name Interface, [id number] lity Address [address] [facility] [address] [address] Organization [facility] Address [address] [facility] [address] [address] Support Name Relationship Address Phone FREEDOM ALEMAN [...] 1 HR 07/07/2023 APPOINTMENT CHART CHECK 5 [place] N 07/05/2023 APPOINTMENT [facility] LOW UP 20 MIN 07/05/2023 APPOINTMENT [...] 130.0 5.80 Low FINAL Enzo Garg [facility], [facility] [address] [phone] 0 Phone: () - 07/05 Iron profi le TIBC ug/dL 250.0 425.0 410 FINAL Enzo Garg [facility], [address] [id number] 0 Phone: () - 07/05 Iron profi le Iron ug/dL 50.0 175.0 43 Low FINAL Enzo Garg [facility], [address] [facility] [address] [phone] 0 Phone: () - 07/05 Iron profi le Unbou nd iron capac ity ug/dL 75.0 410.0 367 FINAL Enzo Garg [place] [address] [phone] 0 Phone: () - 07/05 Iron profi le Iron, % satur ation % 20.0 55.0 10 Low FINAL Enzo Garg [facility], [address] [phone] 0 Phone: () - 07/05 CBC w/ auto diff WBC K/uL 3.0 8.9 7.1 FINAL [facility] [place], [address] [place] [phone] 0 Phone: () - 07/05 CBC w/ auto diff HGB g/dL 11.3 15.2 11.5 FINAL [facility] [place], [address] [place] [phone] 0 Phone: () - 07/05 CBC w/ auto diff PLT K/uL 113.0 364.0 302 FINAL [facility] [place], [address] [place] [phone] 0 Phone: () - 07/05 CBC w/ auto diff Fly # (ANC) K/uL 1.6 6.6 4.5 FINAL [facility] [place], [address] [place] [phone] 0 Phone: () - 07/05 CBC w/ auto diff Fly % % 43.0 74.0 62.6 FINAL [facility] [place], [address] [place] [phone] 0 Phone: () - 07/05 CBC w/ auto diff IG % % 0.0 0.5 0.3 FINAL [facility] [place], [address] [place] [phone] 0 Phone: () - 07/05 CBC w/ auto diff IG # K/uL 0.0 0.03 0.02 FINAL [facility] [place], [address] [place] [phone] 0 Phone: () - 07/05 CBC w/ auto diff LY % % 14.0 41.0 29.7 FINAL [facility] [place], [address] [place] [phone] 0 Phone: () - 07/05 CBC w/ auto diff MO % % 6.0 15.0 5.9 Low FINAL [facility] [place], [address] [place] [phone] 0 Phone: () - 07/05 CBC w/ auto diff EO % % 0.0 7.0 1.4 FINAL [facility] [place], [address] [place] [phone] 0 Phone: () - 07/05 CBC w/ auto diff BA % % 0.0 2.0 0.1 FINAL [facility] [place], [address] [place] [phone] 0 Phone: () - 07/05 CBC w/ auto diff LY # K/uL 0.4 3.6 2.1 FINAL [facility] [place], [address] [place] [phone] 0 Phone: () - 07/05 CBC w/ auto diff MO # K/uL 0.2 1.3 0.4 FINAL [facility] [place], [address] [place] [phone] 0 Phone: () - 07/05 CBC w/ auto diff EO # K/uL 0.0 0.6 0.1 FINAL [facility] [place], [address] [place] [phone] 0 Phone: () - 07/05 CBC w/ auto diff BA # K/uL 0.0 0.2 0.0 FINAL [facility] [place], [address] [place] [phone] 0 Phone: () - 07/05 CBC w/ auto diff NRBC % #/100W BC 0.0 0.2 0.0 FINAL [facility] [place], [address] [place] [phone] 0 Phone: () - 07/05 CBC w/ auto diff RBC M/uL 3.9 5.1 3.81 Low FINAL [facility] [place], [address] [place] [phone] 0 Phone: () - 07/05 CBC w/ auto diff HCT % 35.0 48.0 35.8 FINAL [facility] [place], [address] [place] [phone] 0 Phone: () - 07/05 CBC w/ auto diff MCV fL 80.0 104.0 94.0 FINAL [facility] [place], [address] [place] [phone] 0 Phone: () - 07/05 CBC w/ auto diff MCH pg 26.0 35.0 30.2 FINAL [facility] [place], [address] [place] [phone] 0 Phone: () - 07/05 CBC w/ auto diff MCHC g/dL 30.0 35.0 32.1 FINAL [facility] [place], [address] [place] [phone] 0 Phone: () - 07/05 CBC w/ auto diff MPV fL 9.5 13.4 9.1 Low FINAL [facility] [place], [address] [place] [phone] 0 Phone: () - 07/05 CBC w/ auto diff RDW % 11.4 16.1 15.70 FINAL [facility] [place], [address] [place] [phone] 0 Phone: () - 01[place]19 [facility] [place] See western philosophy professor d 02/17 [facility] [place] See western philosophy professor d 03/14 [facility] [place] See western philosophy professor d 03/27 [facility] [place] See attache patel 04/02 [facility] [place] See attache patel 04/06 [facility] [place] See attache patel Medications [...] Onc Consult <html><head></head><body><div style=text-align:center><span style=font- size:9px></span><span style=font-size:12px><span style=font-family:[place],Helvetica,sans-serif><span class=clinicalNote MacroHighlighted id=[id number] macroname=PracticeLetterhead&quot ; spantype=macro title=#PracticeLetterhead><img yoatqg=850 src=live/fileDownload?type=1&lqbrVuwukupxwnHa=[id number] wqzxb=550> </span></span></span>
</div><span style=font-size:12px"><span style=font-family:[place],Helvetica,sans-serif>
<strong>Patient Name: </strong><span class=clinicalNoteMacroHighlighted id=&quo t;[id number] macroname=PatientName spantype=macro title=&q uot;#PatientName>KALEB ALEMAN CARDONA</span>
<strong>MRN: &lt ;/strong><span class=clinicalNoteMacroHighlighted id=[id number]& quot; macroname=PatientMRN spantype=macro title=#PatientMRN>[id number]</span>
<strong>Date of : </strong><span class=&qu ot;clinicalNoteMacroHighlighted id=[id number] macroname=Patient DateOfBirth spantype=macro title=#PatientDateOfBirth>1995< /span>
<strong>Date of Service: </strong><span class=clini calNoteMacroHighlighted id=[id number] macroname=EffectiveDate&qu ot; spantype=macro title=#EffectiveDate>07/05/2023</span></span& gt;</span>
<strong>Attending Physician: </strong><span class=clinicalNoteMacroHighlighted id=[id number] macroname= AttendingPhysician spantype=macro title=#AttendingPhysician>Enzo Garg (Hematology/Oncology)</span>
<strong>Referring Physician:</strong&g t; <span class=clinicalNoteMacroHighlighted id=[id number]& quot; macroname=ReferringPhysician spantype=macro title=#ReferringPhys ician> </span>

<div style=text-align:center><span style=font-size:12px><span style=font-family:[place],Helvetica,sans- serif><strong>INITIAL HEMATOLOGY/MEDICAL ONCOLOGY CONSULTATIO N</strong></span></span>

</div><span style=font-size:12px><span style=font-family:[place],Helvetica,sans-serif><span style=font- size:12px><span style=font-family:[place],Helvetica,sans-serif&g t;</span></span><span class=clinicalNoteSectionShowSeparators clinicalNoteSecti onVisible id=[id number] internalbreaksection=false origi [...] to continue oral iron

<span style=font-size:12px&quo t;><span style=font-family:[place],Helvetica,sans-serif><span class=clin icalNoteSectionShowSeparators clinicalNoteSectionVisible id=[id number]" internalbreaksection=false originalname=Advanced Care [...] pain planindicated for today's visit</span><span style=font-size:12px><span st yle=font-family:[place],Helvetica,sans-serif>
<span style=font-size:1 2px><span style=font-family:[place],Helvetica,sans-serif><span style=&qu ot;font-size:12px><span style=font-family:[place],Helvetica,sans-serif><span style=font-size:12px><span style=font-family:[place],Helvetica,sans-serif ><span style=font-family:[place]><span class=clinicalNoteSectionShowSeparators clinicalNoteSectionVisible id=[id number] internalbreaks ection=false originalname=Smoking Status recognizeconcepts=true spantype=section suppressempty=true>Smoking Status</span>
Smoking Status: <span class=clinicalNoteMacroHighlighted id=[id number] macroname=PatientSmokingStatus parameters=ValueIfNull:Not recor ded. spantype=macro title=#PatientSmokingStatus(ValueIfNull:Not recorded.)&q uot;>Smoking Tobacco : Former smoker, stopped smokin; Smokeless Tobacco : Never used smokeless tobacco; Vaping : Current vape user</span></span></span></span></spa n></span></span></span></span></span>

<span style=font-size:12px><span style=font-family:[place],Helvetica,sans-serif><span style=font- size:12px><span style=font-family:[place],Helvetica,sans-serif><span class=clinicalNoteSectionShowSeparators clinicalNoteSectionVisible" id=[id number] internalbreaksection=false originalname=&q uot;History of [...] History of Present Illness.
<span style=font-size:12px><span style=&q uot;font-family:[place],Helvetica,sans-serif><span class=clinicalNoteSectionShowSeparators clinicalNoteSectionVisible id=[id number] internalbreaksection=false originalname=Past Medical History recognizeconcepts=true spantype=section suppressempty=false>Past Medical and Surgical History&l t;/span></span></span>
History of iron deficiency anemia

<span style=font-size:12px><span style=font-family:[place],Helvetica,sans-s erif><span class=clinicalNoteSectionShowSeparators clinicalNoteSectionVisible" id=[id number] internalbreaksection=false originalname=Current Medications [...] Subcutaneous)</td> <td width=40%>07/05/2023</td> </tr> </tbody></table></span></span></span>
<span style=font-size:12px><span style=font-family:[place],Helvetica,sans-serif><span class=&quo t;clinicalNoteSectionShowSeparators clinicalNoteSectionVisible id=[id number] internalbreaksection=false originalname=Allergies recognizeconcepts=true spantype=section suppressempty=false>Allergies</span>
<span class=clinicalNoteMacroHighlighted id=[id number] macroname=AllergyTable spantype=macro title=#AllergyTable"><table border=1 style=width:100%> <tbody> <tr> <td colspan=4>Current Allergy List</td> </tr> <tr> <td width="100px>Allergy Name</td> <td khjuz=804kx>Severity</td> <td kygtt=530aw>Status</td> <td tlguj=862hx>Recording Date</td> </tr> <tr> <td yeisi=332ia>NSAIDS (Non- Steroidal Anti-Inflammatory Drug)</td> <td rlnzt=694vw>
</td> <td ibrrr=826ct>Active</td> <td lbohb=590lf>07/05/2023</td> </tr> <tr> <td wezkw=523uy>Zithromax</td> <td miorg=447dy>
</td> <td ahvrf=295ww>Active</td> <td opkcd=035lz">07/05/2023</td> </tr> </tbody></table></span></span></span>
<span style=font-size:12px><span style=font-family:[place],Helvetica,sans-serif><span class=clinicalNoteSectionShowSeparators clinicalNoteSectionVisible id=[id number] internalbreaksection=false originalname=Family History recognizeconcepts=true spantype=section" suppressempty=false>Family History</span></span></span>
Maternal grandmother had DVT/PE, but this was in the setting of malignancy

<span style=font-size:12px><span style=font-family:[place],Helvetica,sans- serif><span class=clinicalNoteSectionShowSeparators clinicalNoteSectionVisible" id=[id number] internalbreaksection=false originalname="Social History recognizeconcepts=true spantype=section suppressempty=true>Social History</span></span></span>
Has 2 children, ages 4 and 2. Former smoker, quit in 2016. No significant alcohol use.

<span style=font-size:12px><span style=font-family:[place],Helvetica,sans- serif><span class=clinicalNoteSectionShowSeparators clinicalNoteSectionV isible id=[id number] internalbreaksection=false original name=Vital Signs and Pain Scale recognizeconcepts=true spantype=section suppressempty=false>Vital Signs</span>
<span class=cl inicalNoteMacroHighlighted id=[id number] macroname=PatientVita lSigns parameters=LookBackDays:1 spantype=macro title=#PatientVi talSigns(LookBackDays:1)>Blood pressure: 152/86, Pulse: 93, Temperature: 96 F, Respirations: 16, O2 sat: 99%, Pain Scale: 0, Height: 68.75 in, Weight: 297.2 lb, BSA: 2.44, BMI: 44.21 kg/m2</span></span></span>
<span style=font-size:12px><spanstyle=font-family:[place],Helvetica,sans-serif><span style=font-size:12px"><span style=font-family:[place],Helvetica,sans-serif>Immunizations: <span cl ass=clinicalNoteMacroHighlighted id=[id number] macroname=I mmunizations parameters=ValueIfNull:Not [...] macroname=RecentLabResultsTable parameters=OptionalFlowsheetCategory:Chemistries,Label:Chemistries spantype=macro title=#RecentLabResultsTable(Option alFlowsheetCategory:Chemistries,Label:Chemistries)></span>
<span class=&q uot;clinicalNoteMacrWIighdecatur county hospitaled id=[id number] macroname=RecentL abResultsTable parameters=OptionalFlowsheetCategory:Tumor Markers,Label:Tumor Markers" spantype=macro title=#RecentLabResultsTable(OptionalFlowsheetCategory:Tumor Ma rkers,Label:Tumor Markers)></span>
<span class=clinicalNoteMacroHig hlighted id=[id number] macroname=RecentLabResultsTable para meters=OptionalFlowsheetCategory:Anemia Labs,Label:Anemia Results spantype=macro" title=#RecentLabResultsTable(OptionalFlowsheetCategory:Anemia Labs,Label:Anemia Results)"></span></span></span>

<span class=clinicalNot eSectionShowSeparators clinicalNoteSectionVisible id=[id number] internalbreaksection=false originalname=Surveys/Consents/Other Discussions recognizeconcepts=true spantype=section suppressempty=true>Surveys/Consents/Other Discussions</span>

<hr><span style="font-size:12px><span style=font-family:[place],Helvetica,sans-serif>
Thank you for allowing me to see [...]
--- OUTSIDE RECORDS SUMMARY | 2025-08-08 00:33 | XMS_ITS | Encounter Summary ---
Author Organization [place] Address [address] [facility] [place] [address] Care Team Providers Care Barrel Washer Name Role Phone Sarah Juares MD Primary Care Provider Unav jesicaable Purvi Jeong [facility] Unavailable [phone] Lucas Nuno MD Unavailable [phone] Meghan Cox [facility] Unavailable [phone] Encounter Details Date Type Department Care Team (Latest Contact Info) Description 08/06/2025 Travel Social History Tobacco Use Types Packs/Day Years Used Date Smoking Tobacco: Former Smokeless Tobacco: Never Alcohol Use Standard Drinks/Week Comments Not Currently 0 (1 standard drink = 0.6 oz pur e alcohol) rare PHQ-2 Answer Date Recorded PHQ-2 Score 0 02/22/2025 [place] Depression Scale Answer Date Recorded [place] [...] AM CDT 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 Gender Identity Female 06/03/2022 7:36 AM CDT Sexual Orientation Straight 06/03/2022 7: 36 AM CDT documented as of this encounter Plan of Treatment Not on file documented as of this encounter Visit Diagnoses Not on filedocumented in this encounter Care Teams Barrel Washer Relationship Specialty Start Date End Date Sarah Juares MD PCP - General Family Medicine 03/13/25 08/06/25 Purvi Jeong [facility] [address] [place], [place] 16[address] Pharmacist Pharmacist Spinner Operator 01/03/25 Lucas Nuno MD [address] [place] [address] Assigned Surgical Provider 02/07/25 Meghan Cox RPH 9 [place] [address] Pharmacist Pharmacist Spinner Operator 03/20/25 documented as of this encounter
--- OUTSIDE RECORDS SUMMARY | 2025-08-08 00:33 | XMS_ITS | Encounter Summary ---
Author Organization [place] Address [facility] [place] [address] Care Team Providers Care Motorcoach Driver Name Role Phone [facility] Primary Care Provider Leatha Wagner APRN [facility] Unavailable +[phone] Mariana Acosta PA-C Unavailable + [phone] Sarah Juares MD Primary Care Provider Unav ailable Lucas Nuno MD Unavailable +- Mariana Acosta-C Unavailable +[phone] Lucas Nuno MD Unavailable + Mariana Acosta PA-C Unavailable +[phone] Purvi Jeong [facility] Unavailable [phone] Lucas Nuno MD Unavailable + Meghan Cox [facility] Unavailable [phone] Jose Tran MD Primary Care Provider + [phone] Encounter Details Date Type Department Care Team (Late st Contact Info) Description 12/17/2021 [facility] [address] 4th [place] [address] Luis Alberto Mastersoncy Social History [...] AM CDT 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 [place] [address] PCP - General 01/02/14 03/23/23 Sarah Juares MD [address] [place] [address] PCP - General Family Medicine 03/13/25 08/06/25 [place] [address] [place] [address] PCP - General Family Medicine 08/07/25 Leatha Wagner APRN OUTSIDE SALES CONSULTANT [address] [place] [address] 027195 Assigned Surgical Provider 11/02/21 09/04/22 Mariana Acosta PA-C [address] [address] Assigned Surgical Provider 09/05/22 12/09/23 Lucas Nuno MD [address] [address] Assigned Surgical Provider 12/10/23 01/07/24 Mariana Acosta PA-C [address] [address] Assigned Surgical Provider 01/08/24 03/08/24 Lucas Nuno MD [address] [address] Assigned Surgical Provider 03/09/24 12/09/24 Mariana Acosta PA-C [address] [address] Assigned Surgical Provider 12/10/24 02/06/25 Purvi Jeong [facility] [address] [place] [address] Pharmacist Pharmacist Director Of Vendor Management 01/03/25 Lucas Nuno MD [address] [address] Assigned Surgical Provider 02/07/25 Meghan Cox [facility] [address] [place] [address] Pharmacist Pharmacist Director Of Vendor Management 03/20/25 documented as of this encounter
--- OUTSIDE RECORDS SUMMARY | 2025-08-08 00:33 | XMS_ITS | Encounter Summary ---
Author Organization [place] Address [address] [facility] [place] [address] Care Team Providers Care Manager Product Support Name Role Phone Clinic, [facility] Primary Care Provider Leatha Wagner APRN [facility] Unavailable [phone] Mariana Acosta PA-C Unavailable + [phone] Sarah Juares MD Primary Care Provider Unav ailable Lucas Nuno MD Unavailable + Mariana Acosta-C Unavailable +[phone] Lucas Nuno MD Unavailable + Mariana Acosta-C Unavailable [phone] Purvi Jeong [facility] Unavailable Lucas Nuno MD Unavailable + Meghan Cox [facility] Unavailable [phone] Joes Tran MD Primary Care Provider + [phone] Encounter Details Date Type Department Care Team [...] CDT 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 [address] [place] [address] PCP - General 01/02/14 03/23/23 Sarah Juares MD [address] [address] PCP - General Family Medicine 03/13/25 08/06/25 [place] [address] [place] [address] PCP - General Family Medicine 08/07/25 Leatha Wagner APRN GRADUATE INTERN 9[address] [place] [address] Assigned Surgical Provider 11/02/21 09/04/22 Mariana Acosta PA-C [address] [address] Assigned Surgical Provider 09/05/22 12/09/23 Lucas Nuno MD [address] [place] [address] [address] Assigned Surgical Provider 12/10/23 01/07/24 Mariana Acosta PA-C [address] [address] [address] Assigned Surgical Provider 01/08/24 03/08/24 Lucas Nuno MD [address] [address] [address] Assigned Surgical Provider 03/09/24 12/09/24 Mariana Acosta PA-C [address] [place] [address] [address] Assigned Surgical Provider 12/10/24 02/06/25 Purvi Jeong [facility] [address] [place] [address] [phone] Pharmacist Pharmacist Card Placer 01/03/25 Lucas Nuno MD [address] [place] [address] [address] Assigned Surgical Provider 02/07/25 Meghan Cox [facility] [address] [place] [address] [phone] Pharmacist Pharmacist Card Placer 03/20/25 documented as of this encounter
--- OUTSIDE RECORDS SUMMARY | 2025-08-08 00:33 | XMS_ITS | Encounter Summary ---
Author Organization [place] Address [address] [place] [address] Care Team Providers Care Uplands Division Director Name Role Phone Sarah Juares MD Primary Care Provider Mariana ChadwickC Unavailable + [phone] Purvi Jeong [facility] Unavailable [phone] Lucas Nuno MD Unavailable [phone] Meghan Cox [facility] Unavailable [phone] Jose Tran MD Primary Care Provider [phone] Encounter Details Date Type Department Care Team (Late st Contact Info) Description 02/02/2025 [facility] [address] 4th [place] [address] Anastsaia Molina, RN Social History Tobacco Use Types Packs/Day Years Used Date Smoking Tobacco: Former Smokeless Tobacco: Never Alcohol Use Standard Drinks/Week Comments Not Currently 0 (1 standard drink = 0.6 oz pur e alcohol) rare PHQ-2 Answer Date Recorded PHQ-2 Score 0 11/15/2024 [place] Depression Scale Answer Date Recorded [place] Depression Score 1 07/06/2021 Last EPDS Self [...] AM CDT 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 Gender Identity Female 06/03/2022 7:36 AM CDT Sexual Orientation Straight 06/03/2022 7: 36 AM CDT documented as of this encounter Plan of Treatment Not on file documented as of this encounter Visit Diagnoses Not on filedocumented in this encounter Care Teams Uplands Division Director Relationship Specialty Start Date End Date Sarah Juares MD PCP - General Family Medicine 03/13/25 08/06/25 [place] [address] [place] [address] PCP - General Family Medicine 08/07/25 Mariana Acosta PA-C [address] [place] [address] Assigned Surgical Provider 12/10/24 02/06/25 Purvi Jeong [facility] [address] [place] [address] [phone] Pharmacist Pharmacist Truck Driving 01/03/25 Lucas Nnuo MD [address] [place] [address] Assigned Surgical Provider 02/07/25 Meghan Cox, [facility] 9 [place] [address] Pharmacist Pharmacist Truck Driving 03/20/25 documented as of this encounter
--- OUTSIDE RECORDS SUMMARY | 2025-08-08 00:33 | XMS_ITS | Encounter Summary ---
Author Organization [place] Address [facility] [place] [address] Care Team Providers Care Biomedical Technician Name Role Phone [facility] [place] Primary Care Provider Leatha Wagner APRN [facility] Unavailable [phone] Mariana Acosta PA-C Unavailable + [phone] Sarah Juares MD Primary Care Provider Unav ailable Lucas Nuno MD Unavailable +- Mariana Acosta-C Unavailable [phone] Lucas Nuno MD Unavailable + Mariana Acosta PA-C Unavailable [phone] Purvi Jeong [facility] Unavailable [phone] Lucas Nuno MD Unavailable +- Meghan Cox [facility] Unavailable [phone] Jose Tran MD Primary Care Provider + [phone] Encounter Details Date Type Department Care Team (Late st Contact Info) Description 06/02/2022 [facility] [address] 4th [place] [address] Rita Gillespie, EMT Social History Tobacco Use Types Packs/Day Years Used Date Smoking Tobacco: Former Smokeless Tobacco: Never Alcohol Use Standard Drinks/Week Comments Not Currently 0 (1 standard drink = 0.6 oz pur e alcohol) [place] Depression Scale Answer Date Recorded [place] Depression Score 1 07/06/2021 Last EPDS Self Harm Result Not on file 07/06 Comments No Sex and Gender Information Value Date Recorded Sex Assigned at Female 06/03/2022 7:36 AM CDT 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 Gender Identity Female 06/03/2022 7:36 AM [...] documented as of this encounter Care Teams Biomedical Technician Relationship Specialty Start Date End Date [facility] [address] [place] [address] PCP - General 01/02/14 03/23/23 Sarah Juares MD [address] [place] [address] PCP - General Family Medicine 03/13/25 08/06/25 [place] [address] [place] [address] PCP - General Family Medicine 08/07/25 Leatha Wagner APRN AUTOMOBILE MECHANIC RADIATOR [address] [place] [address] 637015 Assigned Surgical Provider 11/02/21 09/04/22 Mariana Acosta PA-C [address] [address] Assigned Surgical Provider 09/05/22 12/09/23 Lucas Nuno MD [address] [address] Assigned Surgical Provider 12/10/23 01/07/24 Mariana Acosta PA-C [address] [address] Assigned Surgical Provider 01/08/24 03/08/24 Lucas Nuno MD [address] [address] Assigned Surgical Provider 03/09/24 12/09/24 Mariana Acosta PA-C [address] [address] Assigned Surgical Provider 12/10/24 02/06/25 Purvi Jeong [facility] [address] [place] [address] Pharmacist Pharmacist Residential Caregiver 01/03/25 Lucas Nuno MD [address] [address] Assigned Surgical Provider 02/07/25 Meghan Cox [facility] [address] [place] [address] Pharmacist Pharmacist Residential Caregiver 03/20/25 documented as of this encounter
--- OUTSIDE RECORDS SUMMARY | 2025-08-08 00:33 | XMS_ITS | Encounter Summary ---
Author Organization [place] Address [address] [facility] [place] [place] [address] Care Team Providers Care Supplier Quality Engineer Name Role Phone Sarah Juares MD Primary Care Provider UnaMariana RochaC Unavailable + [phone] Purvi Jeong [facility] Unavailable [phone] Lucas Nuno MD Unavailable [phone] Meghan Cox [facility] Unavailable [phone] Jose Tran MD Primary Care Provider [phone] Encounter Details Date Type Department Care Team (Late st Contact Info) Description 01/09/2025 [facility] Advice [facility] [address] 4th [place] [address] Mirna Ibrahim, RN Social History Tobacco Use Types Packs/Day Years Used Date Smoking Tobacco: Former Smokeless Tobacco: Never Alcohol Use Standard Drinks/Week Comments Not Currently 0 (1 standard drink = 0.6 oz pur e alcohol) rare PHQ-2 Answer Date Recorded PHQ-2 Score 0 11/15/2024 [place] Depression Scale Answer Date Recorded [place] Depression Score 1 07/06/2021 Last EPDS Self Harm Result Not on file 07/06 Adolescent Education Answer Date Record ed Getting School Help Needed Not on file 07/10 Comments No Sex and Gender Information Value Date Recorded Sex Assigned at Female 06/03/2022 7:36 AM CDT Legal Sex Female 3:38 AM BAND ATTACHER Gender Identity Female 06/03/2022 7:36 AM CDT Sexual Orientation Straight 06/03/2022 7: 36 AM CDT documented as of this encounter Plan of Treatment Not on file documented as of this encounter Visit Diagnoses Not on filedocumented in this encounter Care Teams Supplier Quality Engineer Relationship Specialty Start Date End Date Sarah Juares MD PCP - General Family Medicine 03/13/25 08/06/25 [place] [address] [place] [address] PCP - General Family Medicine 08/07/25 Mariana Acosta PA-C [address] [place] [address] 205355 Assigned Surgical Provider 12/10/24 02/06/25 Purvi Jeong [facility] [address] [place] [address] [phone] Pharmacist Pharmacist Printing And Stamping Supervisor 01/03/25 Lucas Nuno MD [address] [place] [address] [phone] Assigned Surgical Provider 02/07/25 Meghan Cox [facility] [address] [place] [address] 304105 Pharmacist Pharmacist Printing And Stamping Supervisor 03/20/25 documented as of this encounter
--- OUTSIDE RECORDS SUMMARY | 2025-08-08 00:33 | XMS_ITS | Encounter Summary ---
Author Organization [place] Address [address] [facility] [place] [address] Care Team Providers Care Oracle Endeca Consultant Name Role Phone Sarah Juares MD Primary Care Provider Unav Mariana RodriguezC Unavailable + [phone] Purvi Jeong [facility] Unavailable [phone] Lucas Nuno MD Unavailable [phone] Meghan Cox [facility] Unavailable [phone] Jose Tran MD Primary Care Provider [phone] Encounter Details Date Type Department Care Team (Late st Contact Info) Description 01/30/2025 [facility] [address] [facility] [address]th [place] [address] Keena Valente Social History Tobacco Use Types Packs/Day Years Used Date Smoking Tobacco: Former Smokeless Tobacco: Never Alcohol Use Standard Drinks/Week Comments Not Currently 0 (1 standard drink = 0.6 oz pur e alcohol) rare PHQ-2 Answer Date Recorded PHQ-2 Score 0 11/15/2024 [place] Depression Scale Answer Date Recorded [place] Depression Score 1 07/06/2021 Last EPDS Self [...] AM CDT Legal Sex Female 3:38 AM PRODUCE RUNNER Gender Identity Female 06/03/2022 7:36 AM CDT Sexual Orientation Straight 06/03/2022 7: 36 AM CDT documented as of this encounter Plan of Treatment Not on file documented as of this encounter Visit Diagnoses Not on filedocumented in this encounter Care Teams Oracle Endeca Consultant Relationship Specialty Start Date End Date Sarah Juares MD PCP - General Family Medicine 03/13/25 08/06/25 [place] [address] [place] [address] PCP - General Family Medicine 08/07/25 Mariana Acosta PA-C [address] [place] [address] [phone] Assigned Surgical Provider 12/10/24 02/06/25 Purvi Jeong [facility] [address] [place] [address] [phone] Pharmacist Pharmacist Police District Switchboard Operator 01/03/25 Lucas Nuno MD [address] [place] [address] [phone] Assigned Surgical Provider 02/07/25 Meghan Cox [facility] [address] [place] [address] Pharmacist Pharmacist Police District Switchboard Operator 03/20/25 documented as of this encounter
--- OUTSIDE RECORDS SUMMARY | 2025-08-08 00:33 | XMS_ITS | Encounter Summary ---
Author Organization [place] Address [address] [place] [address] Care Team Providers Care Wax Pot Tender Name Role Phone Sarah Juares MD Primary Care Provider Unav ailable Purvi Jeong [facility] Unavailable [phone] Lucas Nuno MD Unavailable [phone] Meghan Cox [facility] Unavailable [phone] Jose Tran MD Primary Care Provider [phone] Encounter Details Date Type Department Care Team (Late st Contact Info) Description 02/22/2025 [facility] Medical Advice [facility] [address]rd [place] [address] Nahed Fay Social History Tobacco Use Types Packs/Day Years Used Date Smoking Tobacco: Former Smokeless Tobacco: Never Alcohol Use Standard Drinks/Week Comments Not Currently 0 (1 standard drink = 0.6 oz pur e alcohol) rare PHQ-2 Answer Date Recorded PHQ-2 Score 0 02/22/2025 [place] Depression Scale Answer Date Recorded [place] Depression Score 1 07/06/2021 Last EPDS Self [...] AM CDT Legal Sex Female 3:38 AM TRAUMA PROGRAM MANAGER Gender Identity Female 06/03/2022 7:36 AM CDT Sexual Orientation Straight 06/03/2022 7: 36 AM CDT documented as of this encounter Plan of Treatment Not on file documented as of this encounter Visit Diagnoses Not on filedocumented in this encounter Care Teams Wax Pot Tender Relationship Specialty Start Date End Date Sarah Juares MD PCP - General Family Medicine 03/13/25 08/06/25 [place] [address] [place] [address] PCP - General Family Medicine 08/07/25 Purvi Jeong [facility] [address] [place] [address] 239165 Pharmacist Pharmacist Tightener 01/03/25 Lucas Nuno MD [address] [place] [address] [phone] Assigned Surgical Provider 02/07/25 Meghan Cox [place] [address] [place] [address] [phone] Pharmacist Pharmacist Tightener 03/20/25 documented as of this encounter
--- OUTSIDE RECORDS SUMMARY | 2025-08-08 00:34 | XMS_ITS | Clinical Summary ---
Author Organization [place] Address [address] [place] [address] Care Team Providers Care Lace Inspector Name Role Phone Purvi Jeong [facility] Unavailable [phone] Lucas Nuno MD Unavailable [phone] Meghan Cox [facility] Unavailable [phone] Jose Tran MD Primary Care Provider + [phone] Allergies Active Allergy Reactions Criticality Noted Date [...] 4 MG/0.1ML nasal sprayIndication s:Acute post-operative pain Purmela 1 spray (4 mg) into one nostril [...] [facility] Assessment & Plan (12/09/2021 6:41 PM GLUING MACHINE OPERATOR AUTOMATIC): 10% improvement of reflux (perecieved) since adding [...] months Assessment & Plan (10/23/2021 5:11 PM GLUING MACHINE OPERATOR AUTOMATIC): 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 Did great [...] CDT - 08/06/2025 1:39 PM CDT Emergency [facility] Emergency Dept [address] [place] [address] Art Starr MD Nausea and vomiting, unspecified vomiting type (Primary Dx) Discharge Disposition: Home or Self Care 08/06/2025 Travel 06/06/2025 MyC Medical Advice [facility] [address] 4th [place] [address] Lucas Nuno MD from Last [...] Answer Date Recorded PHQ-2 Score 0 02/22/2025 [place] Depression Scale Answer Date Recorded [place] Depression Score 1 07/06/2021 Last EPDS Self [...] AM CDT Legal Sex Female 3:38 AM GLUING MACHINE OPERATOR AUTOMATIC Gender Identity Female 06/03/2022 7:36 AM CDT [...] ANTIBODY (EXTERNAL RESULT) Routine 12/19/2020 9:24 AM GLUING MACHINE OPERATOR AUTOMATIC from Last 3 Months or Most Recently Relevant to Health Maintenance Results * Extra Blue Top Tube (08/06/2025 12:38 PM CDT) Hold Specimen JIC 08/06/2025 2:09 PM CDT [facility] Blood STRUCTURE OF LEFT UPPER LIMB / Unknown Venipuncture / Unknown 08/06/2025 12:38 PM CDT 08/06/2025 12:54 PM CDT Art Starr MD LAB - BLOOD ORDERABLES Fi nal Result [facility] Care Lab [address] [facility] Lab (1st floor, no room number) [place] [address] * (ABNORMAL) CBC with platelets and differential [...] BLOOD ORDERABLES Fi nal Result [facility] [address] Lab (1st floor, no room number) [place] [address], [facility] * (ABNORMAL) Comprehensive Metabolic Panel (Limited Occurrences) [...] ORDERABLES Fi nal Result Performing Organization Address City/[facility]/ZIP Co de Phone Number [facility] [address] [facility] Lab (1st floor, no room number) [place] [address] * Lipase (08/06/2025 12:38 PM CDT) Pathologist [facility] Lipase 16 13 - 60 U/L 08/06/2025 1:22 PM CDT LABORATORY Blood STRUCTURE OF LEFT UPPER LIMB / Unknown Venipuncture / Unknown 08/06/2025 12:38 PM CDT 08/06/2025 12:54 PM CDT us Art Starr MD LAB - BLOOD ORDERABLES Fi nal Result Performing Organization Address [facility] Co de Phone Number [facility] [address] [facility] Lab (1st floor, no room number) [place] [address] * HIV-1 Antibody (External Result) (12/19/2020 9:24 AM GLUING MACHINE OPERATOR AUTOMATIC) [facility] HIV 1&2 Antibody (External) Negative Nonreactive [facility] 12/19/2020 9:24 AM GLUING MACHINE OPERATOR AUTOMATIC us Patient Reported LAB - HIM EXTERNAL RESULT Final Result [facility] [address] [place], [place] [address] [phone] from Last 3 Months or Most Recently Relevant to Health Maintenance Insurance [facility] OUT [facility] STATE [facility] * Guarantor: Karo Chavira Account Type Relation to Patient Date of Phone Billing Address Medication Therapy Self 1995 [id number] [place] [address] Advance Directives For more information, please contact: [phone] * Full Code (Latest Code Status on [...] 1:00 AM 05/17/2014 2:26 PM Care Teams Lace Inspector Relationship Specialty [place] [address] [facility] [place] [address] PCP - General Family Medicine 08/07/25 Purvi Jeong [facility] [address] [place] [address] [phone] Pharmacist Pharmacist Assembler Installer Structures 01/03/25 Lucas Nuno MD [address] [place] [address] [phone] Assigned Surgical Provider 02/07/25 Meghan Cox [facility] [address] [place] [address] [phone] Pharmacist Pharmacist Assembler Installer Structures 03/20/25
--- OUTSIDE RECORDS SUMMARY | 2025-08-08 00:34 | XMS_ITS | Encounter Summary ---
Author Organization [place] Address [address] [place] [address] Care Team Providers Care Merchant Police Name Role Phone Sarah Juares MD Primary Care Provider Unav ailable Lucas Nuno MD Unavailable +[phone] Mariana Acosta AZ-C Unavailable + [phone] Purvi Jeong [facility] Unavailable [phone] Lucas Nuno MD Unavailable [phone] Meghan Cox [facility] Unavailable [phone] Jose Tran MD Primary Care Provider + [phone] Encounter Details Date Type Department Care Team (Late st Contact Info) Description 11/15/2024 [facility] Adv[facility] [address] 4th [place] [address] Nelda Mcdaniel Social History Tobacco Use Types Packs/Day Years Used Date Smoking Tobacco: Former Smokeless Tobacco: Never Alcohol Use Standard Drinks/Week Comments Not Currently 0 (1 standard drink = 0.6 oz pur e alcohol) rare PHQ-2 Answer Date Recorded PHQ-2 Score 0 11/15/2024 [place] Depression Scale Answer Date Recorded [place] Depression Score 1 07/06/2021 Last EPDS Self Harm Result Not on file 07/06 Adolescent Education Answer Date Record ed Getting School Help Needed Not on file 07/10 Comments No Sex and Gender Information Value Date Recorded Sex Assigned at Female 06/03/2022 7:36 AM CDT Legal Sex Female 3:38 AM SERVICE SUPPORT REPRESENTATIVE Gender Identity Female 06/03/2022 7:36 AM CDT Sexual Orientation Straight 06/03/2022 7: 36 AM CDT documented as of this encounter Plan of Treatment Not on file documented as of this encounter Visit Diagnoses Not on filedocumented in this encounter Care Teams Merchant Police Relationship Specialty Start Date End Date Sarah Juares MD PCP - General Family Medicine 03/13/25 08/06/25 [place] [address] [place] [address] PCP - General Family Medicine 08/07/25 Lucas Nuno MD [address] [place] [address] 31258 Assigned Surgical Provider 03/09/24 12/09/24 Mariana Acosta PA-C [address] [place] [address] [phone] Assigned Surgical Provider 12/10/24 02/06/25 Purvi Jeong [facility] [address] [place] [address] [phone] Pharmacist Pharmacist Annealer Helper 01/03/25 Lucas Nuno MD [address] [place] [address] [phone] Assigned Surgical Provider 02/07/25 Meghan Cox [facility] [address] [place] [address] [phone] Pharmacist Pharmacist Annealer Helper 03/20/25 documented as of this encounter
--- OUTSIDE RECORDS SUMMARY | 2025-08-08 00:34 | XMS_ITS | Encounter Summary ---
Author Organization [place] Address [address] [place] [address] Care Team Providers Care Caregiver Assisted Living Name Role Phone Mariana AcostaC Unavailable + [phone] Sarah Juares MD Primary Care Provider Unav ailable Lucas Nuno MD Unavailable +- Mariana Acosta-C Unavailable +[phone] Lucas Nuno MD Unavailable +- Mariana Acosta-C Unavailable +[phone] Purvi Jeong [facility] Unavailable [phone] Lucas Nuno MD Unavailable + Meghan Cox [facility] Unavailable [phone] Jose Tran MD Primary Care Provider + [phone] Reason for Visit * Reason Onset Date Comments Refill Request 10/20/2023 Encounter Details Date Type Department Care Team (Late st Contact Info) Description 10/20/2023 Bree Jesus [facility] [place] [address] [facility] [address] 4th [place] [address] Mariana Acosta PA-C [address] [address] Refill Request Social History Tobacco Use Types Packs/Day Years Used Date Smoking Tobacco: Former Smokeless Tobacco: Never Alcohol Use Standard Drinks/Week Comments Not Currently 0 (1 standard drink = 0.6 oz pur e alcohol) rare PHQ-2 Answer Date Recorded PHQ-2 Score 0 05/12/2023 [place] Depression Scale Answer Date Recorded [place] Depression Score 1 07/06/2021 Last EPDS Self Harm Result Not on file 07/06 Adolescent Education Answer Date Record ed Getting School Help Needed Not on file 07/10 Comments No Sex and Gender Information Value Date Recorded Sex Assigned at Female 06/03/2022 7:36 AM CDT 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 Female 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 Gender Identity Female 06/03/2022 7:36 AM CDT Sexual Orientation Straight 06/03/2022 7: 36 AM CDT documented as of this encounter Plan of Treatment Not on file documented as of this encounter Visit Diagnoses Diagnosis Class 2 severe obesity due to excess calories with serious comorbidity and body mass index (BMI) of 39.0 to 39.9 in adult documented in this encounter Care Teams Caregiver Assisted Living Relationship Specialty Start Date End Date Sarah Juares MD [address] [place] [address] PCP - General Family Medicine 03/13/25 08/06/25 [place] [address] [place] [address] PCP - General Family Medicine 08/07/25 Mariana Acosta PA-C [address] [address] Assigned Surgical Provider 09/05/22 12/09/23 Lucas Nuno MD [address] [address] Assigned Surgical Provider 12/10/23 01/07/24 Mariana Acosta PA-C [address] [place] [address] 37609 Assigned Surgical Provider 01/08/24 03/08/24 Lucas Nuno MD [address] [place] [address] 08761 Assigned Surgical Provider 03/09/24 12/09/24 Mariana Acosta PA-C [address] [place] [address] 87149 Assigned Surgical Provider 12/10/24 02/06/25 Purvi Jeong [facility] [address] [place] [address] [phone] Pharmacist Pharmacist Co Founder And Chairman 01/03/25 Lucas Nuno MD [address] [place] [address] 79264 Assigned Surgical Provider 02/07/25 Meghan Cox [facility] [address] [place] [address] Pharmacist Pharmacist Co Founder And Chairman 03/20/25 documented as of this encounter
--- OUTSIDE RECORDS SUMMARY | 2025-08-08 00:34 | XMS_ITS | Encounter Summary ---
Author Organization [place] Address [address] [facility] [place] [address] Care Team Providers Care Dry End Operator Name Role Phone Sarah Juares MD Primary Care Provider Unav ailable Lucas Nuno MD Unavailable +[phone] Mariana Acosta PA-C Unavailable + [phone] Purvi Jeong [facility] Unavailable [phone] Lucas Nuno MD Unavailable [phone] Meghan Cox [facility] Unavailable [phone] Jose Tran MD Primary Care Provider + [phone] Encounter Details Date Type Department Care Team (Late st Contact Info) Description 11/17/2024 [facility] [address] [place] [address] Alyce [place] Social History Tobacco Use Types Packs/Day Years Used Date Smoking Tobacco: Former Smokeless Tobacco: Never Alcohol Use Standard Drinks/Week Comments Not Currently 0 (1 standard drink = 0.6 oz pur e alcohol) rare PHQ-2 Answer Date Recorded PHQ-2 Score 0 11/15/2024 [place] Depression Scale Answer Date Recorded [place] Depression Score 1 07/06/2021 Last EPDS Self Harm Result Not on file 07/06 Adolescent Education Answer Date Record ed Getting School Help Needed Not on file 07/10 Comments No Sex and Gender Information Value Date Recorded Sex Assigned at Female 06/03/2022 7:36 AM CDT Legal Sex Female 3:38 AM REGIONAL LIAISON Gender Identity Female 06/03/2022 7:36 AM CDT Sexual Orientation Straight 06/03/2022 7: 36 AM CDT documented as of this encounter Plan of Treatment Not on file documented as of this encounter Visit Diagnoses Not on filedocumented in this encounter Care Teams Dry End Operator Relationship Specialty Start Date End Date Sarah Juares MD PCP - General Family Medicine 03/13/25 08/06/25 [place] [address] [place] [address] PCP - General Family Medicine 08/07/25 Lucas Nuno MD [address] [place] [address] [phone] Assigned Surgical Provider 03/09/24 12/09/24 Mariana Acosta PA-C [address] [place] [address] [phone] Assigned Surgical Provider 12/10/24 02/06/25 Purvi Jeong [facility] [address] [place] [address] [phone] Pharmacist Pharmacist Dental Sales Representative 01/03/25 Lucas Nuno MD [address] [place] [address] 244805 Assigned Surgical Provider 02/07/25 Meghan Cox [facility] [address] [place] [address] [phone] Pharmacist Pharmacist Dental Sales Representative 03/20/25 documented as of this encounter
--- OUTSIDE RECORDS SUMMARY | 2025-08-08 00:34 | XMS_ITS | Encounter Summary ---
Author Organization [place] Address [address] [facility] [address] Care Team Providers Care Mva Still Operator Name Role Phone [facility] Primary Care Provider Mariana Acosta PA-C Unavailable + [phone] Sarah Juares MD Primary Care Provider Unav ailable Lucas Nuno MD Unavailable +- Mariana Acosta PA-C Unavailable +[phone] Lucas Nuno MD Unavailable +-6 Mariana Acosta PA-C Unavailable +[phone] Purvi Jeong [facility] Unavailable [phone] Lucas Nuno MD Unavailable + Meghan Cox [facility] Unavailable [phone] Jose Tran MD Primary Care Provider + [phone] Encounter Details Date Type Department Care Team (Late st Contact Info) Description 02/17/2023 [facility] [address] 4th [place] [address] Paulina Denny, RN Social History Tobacco Use Types Packs/Day Years Used Date Smoking Tobacco: Former Smokeless Tobacco: Never Alcohol Use Standard Drinks/Week Comments Not Currently 0 (1 standard drink = 0.6 oz pur e alcohol) rare [place] Depression Scale Answer Date Recorded [place] Depression Score 1 07/06/2021 Last EPDS Self Harm Result Not on file 07/06 Comments No Sex and Gender Information Value Date Recorded Sex Assigned at Female 06/03/2022 7:36 AM CDT 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 Sex Female 3: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 SODA FOUNTAIN MANAGER Gender Identity Female 06/03/2022 7:36 AM [...] documented as of this encounter Care Teams Mva Still Operator Relationship Specialty Start Date End Date [facility] [address] [place] [address] PCP - General 01/02/14 03/23/23 Sarah Juares MD [address] [address] PCP - General Family Medicine 03/13/25 08/06/25 [place] [address] [place] [address] PCP - General Family Medicine 08/07/25 Mariana Acosta PA-C [address] [address] Assigned Surgical Provider 09/05/22 12/09/23 Lucas Nuno MD [address] [address] Assigned Surgical Provider 12/10/23 01/07/24 Mariana Acosta PA-C [address] [place] [address] 36[address] Assigned Surgical Provider 01/08/24 03/08/24 Lucas Nuno MD [address] [place] [address] 88268 Assigned Surgical Provider 03/09/24 12/09/24 Mariana Acosta PA-C [address] [place] [address] 96471 Assigned Surgical Provider 12/10/24 02/06/25 Purvi Jeong [facility] [address] [place] [address] [phone] Pharmacist Pharmacist Intellectual Property Counsel 01/03/25 Lucas Nuno MD [address] [place] [address] 89233 Assigned Surgical Provider 02/07/25 Meghan Cox [facility] [address] [place] [address]34 Pharmacist Pharmacist Intellectual Property Counsel 03/20/25 documented as of this encounter
--- OUTSIDE RECORDS SUMMARY | 2025-08-08 00:34 | XMS_ITS | Encounter Summary ---
Author Organization [place] Address [address] [place] [address] Care Team Providers Care Security System Sales Consultant Name Role Phone [facility] Primary Care Provider Mariana Acosta PA-C Unavailable + [phone] Sarah Juares MD Primary Care Provider Unav ailable Lucas Nuno MD Unavailable +- Mariana Acosta PA-C Unavailable +[phone] Lucas Nuno MD Unavailable +-6 Mariana Acosta PA-C Unavailable +[phone] Purvi Jeong [facility] Unavailable [phone] Lucas Nuno MD Unavailable + Meghan Cox [facility] Unavailable [phone] Jose Tran MD Primary Care Provider + [phone] Encounter Details Date Type Department Care Team (Late st Contact Info) Description 02/09/2023 [facility] [address] 4th [place] [address] Paulina Denny, RN Social History Tobacco Use Types Packs/Day Years Used Date Smoking Tobacco: Former Smokeless Tobacco: Never Alcohol Use Standard Drinks/Week Comments Not Currently 0 (1 standard drink = 0.6 oz pur e alcohol) rare [place] Depression Scale Answer Date Recorded [place] Depression Score 1 07/06/2021 Last EPDS Self Harm Result Not on file 07/06 Comments No Sex and Gender Information Value Date Recorded Sex Assigned at Female 06/03/2022 7:36 AM CDT 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 Sex Female 3:38 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 Gender Identity Female 06/03/2022 7:36 AM CDT [...] documented as of this encounter Care Teams Security System Sales Consultant Relationship Specialty Start Date End Date [facility] [address] [place] [address] PCP - General 01/02/14 03/23/23 Sarah Juares MD [address] [address] PCP - General Family Medicine 03/13/25 08/06/25 [place] [address] [place] [address] PCP - General Family Medicine 08/07/25 Mariana Acosta PA-C [address] [address] Assigned Surgical Provider 09/05/22 12/09/23 Lucas Nuno MD [address] [address] Assigned Surgical Provider 12/10/23 01/07/24 Mariana Acosta PA-C [address] [place] [address] Assigned Surgical Provider 01/08/24 03/08/24 Lucas Nuno MD [address] [place] [address]159 Assigned Surgical Provider 03/09/24 12/09/24 Mariana Acosta PA-C [address] [place] [address] 73304 Assigned Surgical Provider 12/10/24 02/06/25 Purvi Jeong [facility] [address] [place] [address] [phone] Pharmacist Pharmacist Wellness Coordinator 01/03/25 Lucas Nuno MD [address] [place] [address] 61438 Assigned Surgical Provider 02/07/25 Meghan Cox [facility] [address] [place] [address] Pharmacist Pharmacist Wellness Coordinator 03/20/25 documented as of this encounter
--- OUTSIDE RECORDS SUMMARY | 2025-08-08 00:34 | XMS_ITS | Encounter Summary ---
Author Organization [place] Address [address] [facility] [place] [address] Care Team Providers Care Semiconductor Equipment Technician Name Role Phone Mariana Acosta PA-C Unavailable + [phone] Sarah Juares MD Primary Care Provider Unav ailable Lucas Nuno MD Unavailable + Mariana Acosta PA-C Unavailable +[phone] Lucas Nuno MD Unavailable +- Mariana Acosta PA-C Unavailable +[phone] Purvi Jeong [facility] Unavailable [phone] Lucas Nuno MD Unavailable + Meghan Cox [facility] Unavailable [phone] Jose Tran MD Primary Care Provider + [phone] Encounter Details Date Type Department Care Team (Late st Contact Info) Description 05/12/2023 [facility] [address] [place] [address] Xochitl Cooley Social History Tobacco Use Types Packs/Day Years Used Date Smoking Tobacco: Former Smokeless Tobacco: Never Alcohol Use Standard Drinks/Week Comments Not Currently 0 (1 standard drink = 0.6 oz pur e alcohol) rare PHQ-2 Answer Date Recorded PHQ-2 Score 0 05/12/2023 [place] Depression Scale Answer Date Recorded [place] Depression Score 1 07/06/2021 Last EPDS Self Harm Result Not on file 07/06 Comments No Sex and Gender Information Value Date Recorded Sex Assigned at Female 06/03/2022 7:36 AM CDT Legal Sex Female 3:38 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 Gender Identity Female 06/03/2022 7:36 AM [...] on filedocumented in this encounter Care Teams Semiconductor Equipment Technician Relationship Specialty Start Date End Date Sarah Juares MD [address] [address] PCP - General Family Medicine 03/13/25 08/06/25 [place] [address] [place] [address] PCP - General Family Medicine 08/07/25 Mariana Acosta PA-C [address] [address] Assigned Surgical Provider 09/05/22 12/09/23 Lucas Nuno MD [address] 259015 Assigned Surgical Provider 12/10/23 01/07/24 Mariana Acosta PA-C [address] [address] Assigned Surgical Provider 01/08/24 03/08/24 Lucas Nuno MD [address] [place] [address] Assigned Surgical Provider 03/09/24 12/09/24 Mariana Acosta PA-C [address] [place] [address]197 Assigned Surgical Provider 12/10/24 02/06/25 Purvi Jeong [facility] [address] [place] [address] Pharmacist Pharmacist Recyclable Materials Collector 01/03/25 Lucas Nuno MD [address] [place] [address]349 Assigned Surgical Provider 02/07/25 Meghan Cox [facility] [address] [place] [address] Pharmacist Pharmacist Recyclable Materials Collector 03/20/25 documented as of this encounter
--- OUTSIDE RECORDS SUMMARY | 2025-08-08 00:34 | XMS_ITS | Encounter Summary ---
Author Organization [place] Address [address] [facility] [place] [address] Care Team Providers Care Health Safety Manager Name Role Phone Sarah Juares MD Primary Care Provider Unav ailable Lucas Nuno MD Unavailable +[phone]-C Unavailable + [phone] Purvi Jeong [facility] Unavailable [phone] Lucas Nuno MD Unavailable [phone] Meghan Cox [facility] Unavailable [phone] Jose Tran MD Primary Care Provider + [phone] Encounter Details Date Type Department Care Team (Late st Contact Info) Description 04/13/2024 [facility] Weight [facility] [address] [place] [address] [facility] Social History Tobacco Use Types Packs/Day Years Used Date Smoking Tobacco: Former Smokeless Tobacco: Never Alcohol Use Standard Drinks/Week Comments Not Currently 0 (1 standard drink = 0.6 oz pur e alcohol) rare PHQ-2 Answer Date Recorded PHQ-2 Score 0 05/12/2023 [place] Depression Scale Answer Date Recorded [place] Depression Score 1 07/06/2021 Last EPDS Self Harm Result Not on file 07/06 Adolescent Education Answer Date Record ed Getting School Help Needed Not on file 07/10 Comments No Sex and Gender Information Value Date Recorded Sex Assigned at Female 06/03/2022 7:36 AM CDT Legal Sex Female 3:38 AM DATABASE PROGRAMMER Gender Identity Female 06/03/2022 7:36 AM CDT Sexual Orientation Straight 06/03/2022 7: 36 AM CDT documented as of this encounter Plan of Treatment Not on file documented as of this encounter Visit Diagnoses Not on filedocumented in this encounter Care Teams Health Safety Manager Relationship Specialty Start Date End Date Sarah Juares MD PCP - General Family Medicine 03/13/25 08/06/25 [place] [address] [place] [address] PCP - General Family Medicine 08/07/25 Lucas Nuno MD [address] [place] [address] Assigned Surgical Provider 03/09/24 12/09/24 Mariana Acosta PA-C [address] [place] [address] [phone] Assigned Surgical Provider 12/10/24 02/06/25 Pruvi Jeong [facility] [address] [place] [address] [phone] Pharmacist Pharmacist Family Service Caseworker 01/03/25 Lucas Nuno MD [address] [place] [address] [phone] Assigned Surgical Provider 02/07/25 Meghan Cox [facility] [address] [place] [address] [phone] Pharmacist Pharmacist Family Service Caseworker 03/20/25 documented as of this encounter
--- OUTSIDE RECORDS SUMMARY | 2025-08-08 00:34 | XMS_ITS | Encounter Summary ---
Author Organization [employer] [facility] Address [address] [place] [address] Care Team Providers Care Wet Pour Mixer Name Role Phone Unknown, Provider Primary Care Provider Unavaila ble Provider, No Primary Primary Care Provider Unava ilable Encounter Details Date Type Department Care Team (Late st Contact Info) Description 09/20/2006 Historical Notes [facility] Family Medicine [address] 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 : 1995 Single/ Language: Undefined/ Ethnicity: [...] fill out. Mom will fill out any [place] form on attention deficit disorder. I also [...] on filedocumented in this encounter Care Teams Wet Pour Mixer Relationship Specialty Start Date End Date Unknown, Provider . YESICA PURI [address] PCP - General 10/07/15 01/30/16 Provider, No Primary . YESICA PURI [address] PCP - General 01/31/16 documented as of this encounter Additional Source Comments PLEASE NOTE: Replies to this message will not be received.[facility]
--- OUTSIDE RECORDS SUMMARY | 2025-08-08 00:34 | XMS_ITS | Encounter Summary ---
Author Organization [place] Address [address] [facility] [place] [address] Care Team Providers Care Airway Controller Name Role Phone Sarah Juares MD Primary Care Provider Unav ailable Lucas Nuno MD Unavailable +[phone] Mariana AcostaC Unavailable + [phone] Purvi Jeong [facility] Unavailable [phone] Lucas Nuno MD Unavailable [phone] Meghan Cox [facility] Unavailable [phone] Jose Tran MD Primary Care Provider + [phone] Encounter Details Date Type Department Care Team (Late st Contact Info) Description 11/15/2024 [facility] [place] [address] [facility] [address] 4th [place] [address] Mariana Acosta PA-C [address] [facility] [address] [place] [address] Social History Tobacco Use Types Packs/Day Years Used Date Smoking Tobacco: Former Smokeless Tobacco: Never Alcohol Use Standard Drinks/Week Comments Not Currently 0 (1 standard drink = 0.6 oz pur e alcohol) rare PHQ-2 Answer Date Recorded PHQ-2 Score 0 11/15/2024 [place] Depression Scale Answer Date Recorded [place] Depression Score 1 07/06/2021 Last EPDS Self Harm Result Not on file 07/06 Adolescent Education Answer Date Record ed Getting School Help Needed Not on file 07/10 Comments No Sex and Gender Information Value Date Recorded Sex Assigned at Female 06/03/2022 7:36 AM CDT Legal Sex Female 3:38 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 Gender Identity Female 06/03/2022 7:36 AM CDT Sexual Orientation Straight 06/03/2022 7: 36 AM CDT documented as of this encounter Plan of Treatment Not on file documented as of this encounter Visit Diagnoses Not on filedocumented in this encounter Care Teams Airway Controller Relationship Specialty Start Date End Date Sarah Juares MD PCP - General Family Medicine 03/13/25 08/06/25 [place] [address] [facility]3][place] [address] PCP - General Family Medicine 08/07/25 Lucas Nuno MD [address] 824125 Assigned Surgical Provider 03/09/24 12/09/24 Mariana Acosta PA-C [address] 128135 Assigned Surgical Provider 12/10/24 02/06/25 Purvi Jeong [facility] 9[address] [place], [place] [address] Pharmacist Pharmacist Window Cutter 01/03/25 Lucas Nuno MD [address] [address] Assigned Surgical Provider 02/07/25 Meghan Cox RPH 9 [place] [address] Pharmacist Pharmacist Window Cutter 03/20/25 documented as of this encounter
--- OUTSIDE RECORDS SUMMARY | 2025-08-08 00:34 | XMS_ITS | Encounter Summary ---
Author Organization [place] Address [address] [facility] [place] [address] Care Team Providers Care Commissioning Engineer Name Role Phone Mariana Acosta PA-C Unavailable + [phone] Sarah Juares MD Primary Care Provider Unav ailable Lucas Nuno MD Unavailable + Mariana Acosta PA-C Unavailable +[phone] Lucas Nuno MD Unavailable +- Mariana Acosta PA-C Unavailable +[phone] Purvi Jeong [facility] Unavailable [phone] Lucas Nuno MD Unavailable + Meghan Cox [facility] Unavailable [phone] Jose Tran MD Primary Care Provider + [phone] Encounter Details Date Type Department Care Team (Late st Contact Info) Description 05/10/2023 [facility] [facility] [address] [place] [address]th [place] [address] Paulina Denny, RN Social History Tobacco Use Types Packs/Day Years Used Date Smoking Tobacco: Former Smokeless Tobacco: Never Alcohol Use Standard Drinks/Week Comments Not Currently 0 (1 standard drink = 0.6 oz pur e alcohol) rare PHQ-2 Answer Date Recorded PHQ-2 Score 0 05/12/2023 [place] Depression Scale Answer Date Recorded [place] Depression Score 1 07/06/2021 Last EPDS Self Harm Result Not on file 07/06 Comments No Sex and Gender Information Value Date Recorded Sex Assigned at Female 06/03/2022 7:36 AM CDT Legal Sex Female 3:38 AM SUPERVISOR COOLER SERVICE Gender Identity Female 06/03/2022 7:36 AM [...] on filedocumented in this encounter Care Teams Commissioning Engineer Relationship Specialty Start Date End Date Sarah Juares MD [address] [address] PCP - General Family Medicine 03/13/25 08/06/25 [place] [address] [place] [address] PCP - General Family Medicine 08/07/25 Mariana Acosta PA-C [address] 507105 Assigned Surgical Provider 09/05/22 12/09/23 Lucas Nuno MD [address] 575415 Assigned Surgical Provider 12/10/23 01/07/24 Mariana Acosta PA-C [facility] [address] [address] Assigned Surgical Provider 01/08/24 03/08/24 Lucas Nuno MD [address] [place] [address] Assigned Surgical Provider 03/09/24 12/09/24 Mariana Acosta PA-C [address] [place] [address] Assigned Surgical Provider 12/10/24 02/06/25 Purvi Jeong [place] [address] [place] [address] Pharmacist Pharmacist Signal Worker Helper 01/03/25 Lucas Nuno MD [address] [place] [address] Assigned Surgical Provider 02/07/25 Meghan Cox [facility] [address] [place] [address] Pharmacist Pharmacist Signal Worker Helper 03/20/25 documented as of this encounter
--- OUTSIDE RECORDS SUMMARY | 2025-08-08 00:34 | XMS_ITS | Encounter Summary ---
Author Organization [place] Address [address] [facility] [place] [address] Care Team Providers Care Machine Bander And Cellophaner Helper Name Role Phone Sarah Juares MD Primary Care Provider Unav ailable Lucas Nuno MD Unavailable +[phone] Mariana Acosta PA-C Unavailable + [phone] Purvi Jeong [facility] Unavailable +[phone] Lucas Nuno MD Unavailable [phone] Meghan Cox [facility] Unavailable [phone] Jose Tran MD Primary Care Provider + [phone] Encounter Details Date Type Department Care Team (Late st Contact Info) Description 03/30/2024 [facility] Medical Advice [facility] [address] [place] [address] [place] [address] Veronica Dickinson Social History Tobacco Use Types Packs/Day Years Used Date Smoking Tobacco: Former Smokeless Tobacco: Never Alcohol Use Standard Drinks/Week Comments Not Currently 0 (1 standard drink = 0.6 oz pur e alcohol) rare PHQ-2 Answer Date Recorded PHQ-2 Score 0 05/12/2023 [place] Depression Scale Answer Date Recorded [place] Depression Score 1 07/06/2021 Last EPDS Self Harm Result Not on file 07/06 Adolescent Education Answer Date Record ed Getting School Help Needed Not on file 07/10 Comments No Sex and Gender Information Value Date Recorded Sex Assigned at Female 06/03/2022 7:36 AM CDT Legal Sex Female 3:38 AM REPORTING MANAGER Gender Identity Female 06/03/2022 7:36 AM CDT Sexual Orientation Straight 06/03/2022 7: 36 AM CDT documented as of this encounter Plan of Treatment Not on file documented as of this encounter Visit Diagnoses Not on filedocumented in this encounter Care Teams Machine Bander And Cellophaner Helper Relationship Specialty Start Date End Date Sarah Juares MD PCP - General Family Medicine 03/13/25 08/06/25 [place] [address] [facility] [place] [address] PCP - General Family Medicine 08/07/25 Lucas Nuno MD [address] [place] [address] 623535 Assigned Surgical Provider 03/09/24 12/09/24 Mariana Acosta PA-C [address] [place] [address] 692305 Assigned Surgical Provider 12/10/24 02/06/25 Purvi Jeong [facility] [address] [place] [address] 840205 Pharmacist Pharmacist Clutch Inspector 01/03/25 Lucas Nuno MD [address] [place] [address] 758235 Assigned Surgical Provider 02/07/25 Meghan Cox [facility] [address] [place] [address] [phone] Pharmacist Pharmacist Clutch Inspector 03/20/25 documented as of this encounter
--- OUTSIDE RECORDS SUMMARY | 2025-08-08 00:34 | XMS_ITS | Encounter Summary ---
Author Organization [place] Address [address] [facility] [address] Care Team Providers Care Atmospheric Chemist Name Role Phone Mariana Acosta-C Unavailable + [phone] Sarah Juares MD Primary Care Provider Unav ailable Lucas Nuno MD Unavailable +- Mariana Acosta-C Unavailable [phone] Lucas Nuno MD Unavailable +[phone] Mariana Acosta-C Unavailable +[phone] Purvi Jeong [facility] Unavailable [phone] Lucas Nuno MD Unavailable + Meghan Cox [facility] Unavailable [phone] Jose Tran MD Primary Care Provider + [phone] Encounter Details Date Type Department Care Team (Late st Contact Info) Description 10/20/2023 [facility] [place] [address] [facility] [address] 4th [place] [address] Mariana Acosta PA-C [address] [facility] [address] [place] [address] Social History Tobacco Use Types Packs/Day Years Used Date Smoking Tobacco: Former Smokeless Tobacco: Never Alcohol Use Standard Drinks/Week Comments Not Currently 0 (1 standard drink = 0.6 oz pur e alcohol) rare PHQ-2 Answer Date Recorded PHQ-2 Score 0 05/12/2023 [place] Depression Scale Answer Date Recorded [place] Depression Score 1 07/06/2021 Last EPDS Self Harm Result Not on file 07/06 Adolescent Education Answer Date Record ed Getting School Help Needed Not on file 07/10 Comments No Sex and Gender Information Value Date Recorded Sex Assigned at Female 06/03/2022 7:36 AM CDT 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 Gender Identity Female 06/03/2022 7:36 AM CDT Sexual Orientation Straight 06/03/2022 7: 36 AM CDT documented as of this encounter Plan of Treatment Not on file documented as of this encounter Visit Diagnoses Not on filedocumented in this encounter Care Teams Atmospheric Chemist Relationship Specialty Start Date End Date Sarah Juares MD [address] [address] PCP - General Family Medicine 03/13/25 08/06/25 [place] [address] [place] [address] PCP - General Family Medicine 08/07/25 Mariana Acosta PA-C [address] [address] Assigned Surgical Provider 09/05/22 12/09/23 Lucas Nuno MD [address] [address] Assigned Surgical Provider 12/10/23 01/07/24 Mariana Acosta PA-C [address] [address] Assigned Surgical Provider 01/08/24 03/08/24 Lucas Nuno MD [address] [place] [address] Assigned Surgical Provider 03/09/24 12/09/24 Mariana Acosta PA-C [address] [address] Assigned Surgical Provider 12/10/24 02/06/25 Purvi Jeong Melody [address] [place] [address] Pharmacist Pharmacist Pin Drafting Machine Operator 01/03/25 Lucas Nuno MD [address] [place] [address] Assigned Surgical Provider 02/07/25 Meghan Cox [facility] [address] [place] [address] Pharmacist Pharmacist Pin Drafting Machine Operator 03/20/25 documented as of this encounter
--- OUTSIDE RECORDS SUMMARY | 2025-08-08 00:34 | XMS_ITS | Encounter Summary ---
Author Organization [facility] Address [address] [place] [address] Care Team Providers Care Flying Shear Operator Name Role Phone Elsewhere, Pcp Primary Care Provider Unavailabl e Encounter Details Date Type Department Care Team (Late st Contact Info) Description 07/31/2025 Results Follow-Up Department of Vascular Medicine in [place], [place] [address] [place] [phone] Hang Arrington M.D. [address] [place] [phone] [place] [facility] Social History Tobacco Use Types Packs/Day Years Used Date Smoking Tobacco: Former Cigarettes 0 05/22/2014 - 10/14/2018 Passive Smoke Exposure: Current Smokeless Tobacco: Never Alcohol Use Standard Drinks/Week Comments Not Currently 3 (1 standard drink = 0.6 oz pure alcohol) Date nights maybe wednesday and wednesday [facility] Utilities Answer Date Recorded In the past 12 months has [employer], gas, oil, or water [employer] threatened to shut off services in your [...] your living situation today? [facility] live 07/03/2024 Comments Unknown Sex and Gender Information Value Date Recorded Sex Assigned at Not on file Legal Sex Female 6:06 PM GASOLINE ENGINE ASSEMBLER Gender Identity Not on file Sexual Orientation Not on file documented as of this encounter Plan of Treatment Not on file documented as of this encounter Visit Diagnoses Not on filedocumented in this encounter Care Teams Flying Shear Operator Relationship Specialty Start Date End Date Elsewhere, Pcp PCP - General Internal Medicine 04/12/24 documented as of this encounter
--- OUTSIDE RECORDS SUMMARY | 2025-08-08 00:34 | XMS_ITS | Encounter Summary ---
Author Organization [facility] Address [address] [place] [address] Care Team Providers Care Roll Sheeting Cutter Name Role Phone Unknown, Provider Primary Care Provider Unavaila ble Provider, No Primary Primary Care Provider Unava ilable Encounter Details Date Type Department Care Team (Late st Contact Info) Description 08/26/2006 Historical Notes [facility] Family Medicine [address] 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 : 1995 Single/ Language: Undefined/ [...] this time. I will give parents at [place] form and teachers forms will also get [...] filedocumented in this encounter Care Teams Roll Sheeting Cutter Relationship Specialty Start Date End Date Unknown, Provider . YESICA PURI [address] PCP - General 10/07/15 01/30/16 Provider, No Primary . YESICA PURI [address] PCP - General 01/31/16 documented as of this encounter Additional Source Comments PLEASE NOTE: Replies to this message will not be received.[facility]
--- OUTSIDE RECORDS SUMMARY | 2025-08-08 00:34 | XMS_ITS | Encounter Summary ---
Author Organization [place] Address [address] [place] [address] Care Team Providers Care Analysis Tester Name Role Phone Sarah Juares MD Primary Care Provider Unav ailable Lucas Nuno MD Unavailable +[phone] Mariana Acosta PA-C Unavailable + [phone] Purvi Jeong [facility] Unavailable [phone] Lucas Nuno MD Unavailable +[phone] [phone] Meghan Cox [facility] Unavailable [phone] Jose Tran MD Primary Care Provider + [phone] Encounter Details Date Type Department Care Team (Late st Contact Info) Description 04/13/2024 [facility] Medical Advice [facility] [address] 4th [place] [address] Giuliana Masterson Social History Tobacco Use Types Packs/Day Years Used Date Smoking Tobacco: Former Smokeless Tobacco: Never Alcohol Use Standard Drinks/Week Comments Not Currently 0 (1 standard drink = 0.6 oz pur e alcohol) rare PHQ-2 Answer Date Recorded PHQ-2 Score 0 05/12/2023 [place] Depression Scale Answer Date Recorded [place] Depression Score 1 07/06/2021 Last EPDS Self Harm Result Not on file 07/06 Adolescent Education Answer Date Record ed Getting School Help Needed Not on file 07/10 Comments No Sex and Gender Information Value Date Recorded Sex Assigned at Female 06/03/2022 7:36 AM CDT 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 Sex Female 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 Gender Identity Female 06/03/2022 7:36 AM CDT Sexual Orientation Straight 06/03/2022 7: 36 AM CDT documented as of this encounter Plan of Treatment Not on file documented as of this encounter Visit Diagnoses Not on filedocumented in this encounter Care Teams Analysis Tester Relationship Specialty Start Date End Date Sarah Juares MD PCP - General Family Medicine 03/13/25 08/06/25 [place] [address] [facility] [place] [address] PCP - General Family Medicine 08/07/25 Lucas Nuno MD [address] [place] [address] Assigned Surgical Provider 03/09/24 12/09/24 Mariana Acosta PA-C [address] [place] [address] 685825 Assigned Surgical Provider 12/10/24 02/06/25 Purvi Jeong [facility] [address] [place] [address] [phone] Pharmacist Pharmacist Bush Hog Operator 01/03/25 Lucas Nuno MD [address] [place] [address] 093415 Assigned Surgical Provider 02/07/25 Meghan Cox [facility] [address] [place] [address] [phone] Pharmacist Pharmacist Bush Hog Operator 03/20/25 documented as of this encounter
--- OUTSIDE RECORDS SUMMARY | 2025-08-08 00:34 | XMS_ITS | Encounter Summary ---
Author Organization [place] Address [address] [facility] [place] [address] Care Team Providers Care Driver/Guide Name Role Phone Sarah Juares MD Primary Care Provider Unav ailable Lucas Nuno MD Unavailable [phone] Mariana Acosta PA-C Unavailable + [phone] Purvi Jeong [facility] Unavailable [phone] Lucas Nuno MD Unavailable [phone] Meghan Cox [facility] Unavailable [phone] Jose Tran MD Primary Care Provider + [phone] Encounter Details Date Type Department Care Team (Late st Contact Info) Description 11/16/2024 [facility] Medical Advice [facility] [address] 4th [place] [address] Anastasia Molina, RN Social History Tobacco Use Types Packs/Day Years Used Date Smoking Tobacco: Former Smokeless Tobacco: Never Alcohol Use Standard Drinks/Week Comments Not Currently 0 (1 standard drink = 0.6 oz pur e alcohol) rare PHQ-2 Answer Date Recorded PHQ-2 Score 0 11/15/2024 [place] Depression Scale Answer Date Recorded [place] Depression Score 1 07/06/2021 Last EPDS Self [...] on filedocumented in this encounter Care Teams Driver/Guide Relationship Specialty Start Date End Date Sarah Juares MD PCP - General Family Medicine 03/13/25 08/06/25 [place] [address] [place] [address] PCP - General Family Medicine 08/07/25 Lucas Nuno MD [address] [place] [address] Assigned Surgical Provider 03/09/24 12/09/24 Mariana Acosta PA-C [address] [place] [address] [phone] Assigned Surgical Provider 12/10/24 02/06/25 [address] [facility] [address] [place] [address] [phone] Pharmacist Pharmacist Pit Worker Power Shovel 01/03/25 Lucas Nuno MD [address] [place] [address] 459385 Assigned Surgical Provider 02/07/25 [address]han [address] [facility] [address] [place] [address] 529365 Pharmacist Pharmacist Pit Worker Power Shovel 03/20/25 documented as of this encounter
--- OUTSIDE RECORDS SUMMARY | 2025-08-08 00:34 | XMS_ITS | Encounter Summary ---
Author Organization [place] Address [address] [place] [address] Care Team Providers Care Tie Puller Name Role Phone Sarah Juares MD Primary Care Provider Unav ailable Lucas Nuno MD Unavailable [phone] Mariana Acosta PA-C Unavailable + [phone] Purvi Jeong [facility] Unavailable [phone] Lucas Nuno MD Unavailable [phone] Meghan Cox [facility] Unavailable [phone] Jose Tran MD Primary Care Provider + [phone] Encounter Details Date Type Department Care Team (Late st Contact Info) Description 03/15/2024 [facility] Medical Adv[facility] [address] 4th [place] [address] Giuliana Masterson Social History Tobacco Use Types Packs/Day Years Used Date Smoking Tobacco: Former Smokeless Tobacco: Never Alcohol Use Standard Drinks/Week Comments Not Currently 0 (1 standard drink = 0.6 oz pur e alcohol) rare PHQ-2 Answer Date Recorded PHQ-2 Score 0 05/12/2023 [place] Depression Scale Answer Date Recorded [place] Depression Score 1 07/06/2021 Last EPDS Self Harm Result Not on file 07/06 Adolescent Education Answer Date Record ed Getting School Help Needed Not on file 07/10 Comments No Sex and Gender Information Value Date Recorded Sex Assigned at Female 06/03/2022 7:36 AM CDT 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 Gender Identity Female 06/03/2022 7:36 AM CDT Sexual Orientation Straight 06/03/2022 7: 36 AM CDT documented as of this encounter Plan of Treatment Not on file documented as of this encounter Visit Diagnoses Not on filedocumented in this encounter Care Teams Tie Puller Relationship Specialty Start Date End Date Sarah Juares MD PCP - General Family Medicine 03/13/25 08/06/25 [place] [address] [facility] [place] [address] PCP - General Family Medicine 08/07/25 Lucas Nuno MD [address] [place] [address] Assigned Surgical Provider 03/09/24 12/09/24 Mariana Acosta PA-C [address] [place] [address] 968665 Assigned Surgical Provider 12/10/24 02/06/25 Purvi Jeong [facility] [address] [place] [address] [phone] Pharmacist Pharmacist Director Of Distribution 01/03/25 Lucas Nuno MD [address] [place] [address] [phone] Assigned Surgical Provider 02/07/25 Meghan Cox [facility] [address] [place] [address] [phone] Pharmacist Pharmacist Director Of Distribution 03/20/25 documented as of this encounter
--- OUTSIDE RECORDS SUMMARY | 2025-08-08 00:34 | XMS_ITS | Encounter Summary ---
Author Organization [place] Address [address] [place] [address] Care Team Providers Care Industrial Gas Servicer Supervisor Name Role Phone Mariana Acosta PA-C Unavailable + [phone] Sarah Juares MD Primary Care Provider Unav ailable Lucas Nuno MD Unavailable + Mariana Acosta PA-C Unavailable +[phone] Lucas Nuno MD Unavailable +- Mariana Acosta PA-C Unavailable +[phone] Purvi Jeong [facility] Unavailable +[phone] Lucas Nuno MD Unavailable + Meghan Cox [facility] Unavailable [phone] Jose Tran MD Primary Care Provider + [phone] Encounter Details Date Type Department Care Team (Late st Contact Info) Description 10/07/2023 [facility] [place] Medical Advice [facility] [address] 4th [place] [address] Giuliana Masterson Social History Tobacco Use Types Packs/Day Years Used Date Smoking Tobacco: Former Smokeless Tobacco: Never Alcohol Use Standard Drinks/Week Comments Not Currently 0 (1 standard drink = 0.6 oz pur e alcohol) rare PHQ-2 Answer Date Recorded PHQ-2 Score 0 05/12/2023 [place] Depression Scale Answer Date Recorded [place] Depression Score 1 07/06/2021 Last EPDS Self Harm Result Not on file 07/06 Adolescent Education Answer Date Record ed Getting School Help Needed Not on file 07/10 Comments No Sex and Gender Information Value Date Recorded Sex Assigned at Female 06/03/2022 7:36 AM CDT 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 Gender Identity Female 06/03/2022 7:36 AM CDT Sexual Orientation Straight 06/03/2022 7: 36 AM CDT documented as of this encounter Plan of Treatment Not on file documented as of this encounter Visit Diagnoses Not on filedocumented in this encounter Care Teams Industrial Gas Servicer Supervisor Relationship Specialty Start Date End Date Sarah Juares MD [address] [address] PCP - General Family Medicine 03/13/25 08/06/25 [place] [address] [place] [address] PCP - General Family Medicine 08/07/25 Mariana Acosta PA-C [address] [address] Assigned Surgical Provider 09/05/22 12/09/23 Lucas Nuno MD [address] [address] Assigned Surgical Provider 12/10/23 01/07/24 Mariana Acosta PA-C [address] [facility] [address] [place] [address] Assigned Surgical Provider 01/08/24 03/08/24 Lucas Nuno MD [address] [address] Assigned Surgical Provider 03/09/24 12/09/24 Mariana Acosta PA-C [address] [address] Assigned Surgical Provider 12/10/24 02/06/25 Purvi Jeong [facility] [address] [place] [address] [phone] Pharmacist Pharmacist Director Biomedical Engineering 01/03/25 Lucas Nuno MD [address] [place] [address] Assigned Surgical Provider 02/07/25 Meghan Cox [facility] [address] [place], [place] [address] Pharmacist Pharmacist Director Biomedical Engineering 03/20/25 documented as of this encounter
--- OUTSIDE RECORDS SUMMARY | 2025-08-08 00:35 | XMS_ITS | Encounter Summary ---
Author Organization [place] Address [facility] [place] [address] Care Team Providers Care Administrative Volunteer Name Role Phone [facility] Primary Care Provider Leatha Wagner APRN [facility] Unavailable +[phone] Mariana Acosta PA-C Unavailable + [phone] Sarah Juares MD Primary Care Provider Unav ailable Lucas Nuno MD Unavailable +- Mariana Acosta-C Unavailable +[phone] Lucas Nuno MD Unavailable + Mariana Acosta PA-C Unavailable +[phone] Purvi Jeong [facility] Unavailable +[phone] Lucas Nuno MD Unavailable +- Meghan Cox [facility] Unavailable [phone] Jose Tran MD Primary Care Provider + [phone] Encounter Details Date Type Department Care Team (Late st Contact Info) Description 09/02/2022 [facility] [place] 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 Gender Identity Female 06/03/2022 7:36 AM [...] documented as of this encounter Care Teams Administrative Volunteer Relationship Specialty Start Date End Date [facility], [facility] [address] [place] [address] PCP - General 01/02/14 03/23/23 Sarah Juares MD [address] [place] [address] PCP - General Family Medicine 03/13/25 08/06/25 [place] [address] [place] [address] PCP - General Family Medicine 08/07/25 Leatha Wagenr APRN RADIOGRAPHIC TECHNOLOGIST [address] [place] [address] [id number] Assigned Surgical Provider 11/02/21 09/04/22 Mariana Acosta PA-C [address] [address] Assigned Surgical Provider 09/05/22 12/09/23 Lucas Nuno MD [address] [address] Assigned Surgical Provider 12/10/23 01/07/24 Mariana Acosta PA-C [address] [address] Assigned Surgical Provider 01/08/24 03/08/24 Lucas Nuno MD [address] [address] Assigned Surgical Provider 03/09/24 12/09/24 Mariana Acosta PA-C [address] [address] Assigned Surgical Provider 12/10/24 02/06/25 Purvi Jeong [facility] [address] [place] [address] Pharmacist Pharmacist Shock Absorber Installer 01/03/25 Lucas Nuno MD [address] [address] Assigned Surgical Provider 02/07/25 Meghan Cox [facility] [address] [place] [address] Pharmacist Pharmacist Shock Absorber Installer 03/20/25 documented as of this encounter
--- OUTSIDE RECORDS SUMMARY | 2025-08-08 00:35 | XMS_ITS | Encounter Summary ---
Author Organization [place] Address [facility] [place] [address] Care Team Providers Care Collection Systems Worker Name Role Phone [facility], [facility] Primary Care Provider Leatha Wagner APRN [facility] Unavailable +[phone] Mariana Acosta PA-C Unavailable + [phone] Sarah Juares MD Primary Care Provider Unav ailable Lucas Nuno MD Unavailable +- Mariana Acosta-C Unavailable +[phone] Lucas Nuno MD Unavailable + Mariana Acosta PA-C Unavailable +[phone] Purvi Jeong [facility] Unavailable +[phone] Lucas Nuno MD Unavailable +- Meghan Cox [facility] Unavailable [phone] Jose Tran MD Primary Care Provider + [phone] Encounter Details Date Type Department Care Team (Late st Contact Info) Description 06/11/2022 [facility] [address] 4th [place] [address] Keena Valente Social History Tobacco Use Types Packs/Day Years Used Date Smoking Tobacco: Former Smokeless Tobacco: Never Alcohol Use Standard Drinks/Week Comments Not Currently 0 (1 standard drink = 0.6 oz pur e alcohol) rare [place] Depression Scale Answer Date Recorded [place] Depression Score 1 07/06/2021 Last EPDS Self Harm Result Not on file 07/06 Comments No Sex and Gender Information Value Date Recorded Sex Assigned at Female 06/03/2022 7:36 AM CDT 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 Gender Identity Female 06/03/2022 7:36 AM CDT [...] documented as of this encounter Care Teams Collection Systems Worker Relationship Specialty Start Date End Date [facility], [facility] [place] [address] PCP - General 01/02/14 03/23/23 Sarah Juares MD [address] [place] [address] PCP - General Family Medicine 03/13/25 08/06/25 [place] [address] [place] [address] PCP - General Family Medicine 08/07/25 Leatha Wagner APRN [employer] [address] [place] [address] Assigned Surgical Provider 11/02/21 09/04/22 Mariana Acosta PA-C [address] [address] Assigned Surgical Provider 09/05/22 12/09/23 Lucas Nuno MD [address] [address] Assigned Surgical Provider 12/10/23 01/07/24 Mariana Acosta PA-C [address] [address] Assigned Surgical Provider 01/08/24 03/08/24 Lucas Nuno MD [address] [address] Assigned Surgical Provider 03/09/24 12/09/24 Mariana Acosta PA-C [address] [address] Assigned Surgical Provider 12/10/24 02/06/25 Purvi Jeong [facility] [address] [place] [address] [phone] Pharmacist Pharmacist Press Department Manager 01/03/25 Lucas Nuno MD [address] [address] Assigned Surgical Provider 02/07/25 Meghan Cox [facility] [address] [place] [address] Pharmacist Pharmacist Press Department Manager 03/20/25 documented as of this encounter
--- OUTSIDE RECORDS SUMMARY | 2025-08-08 00:35 | XMS_ITS | Encounter Summary ---
Author Organization [place] Address [address] [place] [address] Care Team Providers Care Footwear Sales Leader Name Role Phone Sarah Juares MD Primary Care Provider Unav ailable Purvi Jeong [facility] Unavailable [phone] Lucas Nuno MD Unavailable +[phone] Meghan Cox [facility] Unavailable [phone] Jose Tran MD Primary Care Provider [phone] Encounter Details Date Type Department Care Team (Late st Contact Info) Description 03/29/2025 [facility] Medical Advice [facility] [place] [address] [facility] [address] 4th [place] [address] Lucas Nuno MD [address] [facility] [address] [place] [address] Social History Tobacco Use Types Packs/Day Years Used Date Smoking Tobacco: Former Smokeless Tobacco: Never Alcohol Use Standard Drinks/Week Comments Not Currently 0 (1 standard drink = 0.6 oz pur e alcohol) rare PHQ-2 Answer Date Recorded PHQ-2 Score 0 02/22/2025 [place] Depression Scale Answer Date Recorded [place] Depression Score 1 07/06/2021 Last EPDS Self [...] in an abandoned building, in an overnight jail, or couch-surfing.) Yes 03/21/2025 Are you worried [...] CDT Legal Sex Female 3:38 AM MANAGER POST Gender Identity Female 06/03/2022 7:36 AM CDT Sexual Orientation Straight 06/03/2022 7: 36 AM CDT documented as of this encounter Plan of Treatment Not on file documented as of this encounter Visit Diagnoses Not on filedocumented in this encounter Care Teams Footwear Sales Leader Relationship Specialty Start Date End Date Sarah Juares MD PCP - General Family Medicine 03/13/25 08/06/25 [place] [address] [place] [address] PCP - General Family Medicine 08/07/25 Purvi Jeong RPH [address] [place] [address] Pharmacist Pharmacist Integrated Program Teacher 01/03/25 Lucas Nuno MD [address] [place] [address] Assigned Surgical Provider 02/07/25 Meghan Cox RPH [address] [place] [phone] Pharmacist Pharmacist Integrated Program Teacher 03/20/25 documented as of this encounter
--- OUTSIDE RECORDS SUMMARY | 2025-08-08 00:35 | XMS_ITS | Encounter Summary ---
Author Organization [place] Address [facility] [place] [address] Care Team Providers Care Denture Finisher Name Role Phone [facility] [place] Primary Care Provider Leatha Wagner APRN [facility] Unavailable +[phone] Mariana Acosta PA-C Unavailable + [phone] Sarah Juares MD Primary Care Provider Unav ailable Lucas Nuno MD Unavailable +- Mariana Acosta-C Unavailable +[phone] Lucas Nuno MD Unavailable + Mariana Acosta PA-C Unavailable +[phone] Purvi Jeong [facility] Unavailable [phone] Lucas Nuno MD Unavailable + Meghan Cox [facility] Unavailable [phone] Jose Tran MD Primary Care Provider + [phone] Encounter Details Date Type Department Care Team (Late st Contact Info) Description 06/10/2022 [facility] [address] 4th [place] [address] Giuliana Masterson Social History Tobacco Use Types Packs/Day Years Used Date Smoking Tobacco: Former Smokeless Tobacco: Never Alcohol Use Standard Drinks/Week Comments Not Currently 0 (1 standard drink = 0.6 oz pur e alcohol) rare [place] Depression Scale Answer Date Recorded [place] Depression Score 1 07/06/2021 Last EPDS Self Harm Result Not on file 07/06 Comments No Sex and Gender Information Value Date Recorded Sex Assigned at Female 06/03/2022 7:36 AM CDT Legal Sex Female 3:38 AM EMERGENCY PREPAREDNESS COORDINATOR Gender Identity Female 06/03/2022 7:36 AM [...] documented as of this encounter Care Teams Denture Finisher Relationship Specialty Start Date End Date [facility] [place] [address] PCP - General 01/02/14 03/23/23 Sarah Juares MD [address] [place] [address] PCP - General Family Medicine 03/13/25 08/06/25 [place] [address] [place] [address] PCP - General Family Medicine 08/07/25 Leatha Wagner APRN SALES SUPPORT ASSOCIATE [address] [place] [address] Assigned Surgical Provider 11/02/21 09/04/22 Mariana Acosta PA-C [address] [address] Assigned Surgical Provider 09/05/22 12/09/23 Lucas Nuno MD [address] [address] Assigned Surgical Provider 12/10/23 01/07/24 Mariana Acosta PA-C [address] [address] Assigned Surgical Provider 01/08/24 03/08/24 Lucas Nuno MD [address] [address] Assigned Surgical Provider 03/09/24 12/09/24 Mariana Acosta PA-C [address] [place] [address] Assigned Surgical Provider 12/10/24 02/06/25 Purvi Jeong [facility] [address] [place] [address] Pharmacist Pharmacist Contact Person 01/03/25 Lucas Nuno MD [address] [place] [address] Assigned Surgical Provider 02/07/25 Meghan Cox [facility] [address] [place] [address] Pharmacist Pharmacist Contact Person 03/20/25 documented as of this encounter
--- OUTSIDE RECORDS SUMMARY | 2025-08-08 00:35 | XMS_ITS | Encounter Summary ---
Author Organization [place] Address [address] [place] [address] Care Team Providers Care Poke In Name Role Phone Clinic, [facility] Primary Care Provider Leatha Wagner APRN [facility] Unavailable +[phone] Mariana Acosta PA-C Unavailable + [phone] Sarah Juares MD Primary Care Provider Unav ailable Lucas Nuno MD Unavailable +- Mariana Acosta PA-C Unavailable +[phone] Lucas Nuno MD Unavailable +- Mariana Acosta PA-C Unavailable +[phone] Purvi Jeong [facility] Unavailable [phone] Lucas Nuno MD Unavailable +- Meghan Cox [facility] Unavailable [phone] Jose Tran MD Primary Care Provider + [phone] Encounter Details Date Type Department Care Team (Late st Contact Info) Description 08/27/2022 [facility] [address] [place] [address] Xochitl Cooley Social History Tobacco Use Types Packs/Day Years Used Date Smoking Tobacco: Former Smokeless Tobacco: Never Alcohol Use Standard Drinks/Week Comments Not Currently 0 (1 standard drink = 0.6 oz pur e alcohol) rare [place] Depression Scale Answer Date Recorded [place] Depression Score 1 07/06/2021 Last EPDS Self Harm Result Not on file 07/06 Comments No Sex and Gender Information Value Date Recorded Sex Assigned at Female 06/03/2022 7:36 AM CDT 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 Gender Identity Female 06/03/2022 7:36 AM [...] documented as of this encounter Care Teams Poke In Relationship Specialty Start Date End Date [facility], [facility] [place] [address] PCP - General 01/02/14 03/23/23 Sarah Juares MD [address] [place] [address] PCP - General Family Medicine 03/13/25 08/06/25 [place] [address] [place] [address] PCP - General Family Medicine 08/07/25 Leatha Wagner APRN SOLOIST DANCER [address] [place] [address] 796125 Assigned Surgical Provider 11/02/21 09/04/22 Mariana Acosta PA-C [address] [address] Assigned Surgical Provider 09/05/22 12/09/23 Lucas Nuno MD [address] [address] Assigned Surgical Provider 12/10/23 01/07/24 Mariana Acosta PA-C [address] [address] Assigned Surgical Provider 01/08/24 03/08/24 Lucas Nuno MD [address] [address] Assigned Surgical Provider 03/09/24 12/09/24 Mariana Acosta PA-C [address] [address] Assigned Surgical Provider 12/10/24 02/06/25 Purvi Jeong [facility] [address] [place] [address] Pharmacist Pharmacist Statistical Programmer Analyst 01/03/25 Lucas Nuno MD [address] [address] Assigned Surgical Provider 02/07/25 Meghan Cox [facility] [address] [place] [address] Pharmacist Pharmacist Statistical Programmer Analyst 03/20/25 documented as of this encounter
--- OUTSIDE RECORDS SUMMARY | 2025-08-08 00:35 | XMS_ITS | Encounter Summary ---
Author Organization [place] Address [facility] [place] [address] Care Team Providers Care Executive Search Consultant Name Role Phone [facility] [place] Primary Care Provider Leatha Wagner APRN [facility] Unavailable +[phone] Mariana Acosta PA-C Unavailable + [phone] Sarah Juares MD Primary Care Provider Unav ailable Lucas Nuno MD Unavailable +- Mariana Acosta-C Unavailable +[phone] Lucas Nuno MD Unavailable + Mariana Acosta PA-C Unavailable +[phone] Purvi Jeong [facility] Unavailable [phone] Lucas Nuno MD Unavailable +- Meghan Cox [facility] Unavailable [phone] Jose Tran MD Primary Care Provider + [phone] Encounter Details Date Type Department Care Team (Late st Contact Info) Description 07/10/2022 [facility] [place] [facility] [address] 4th [place] [address] Lucas Nuno MD [address] 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 Gender Identity Female 06/03/2022 7:36 AM [...] documented as of this encounter Care Teams Executive Search Consultant Relationship Specialty Start Date End Date [facility], [facility] [place] [address] PCP - General 01/02/14 03/23/23 Sarah Juares MD [address] [address] PCP - General Family Medicine 03/13/25 08/06/25 [place] [address] [place] [address] PCP - General Family Medicine 08/07/25 Leatha Wagner APRN GROUND SUPPORT EQUIPMENT MECHANIC [address] [place] [address] Assigned Surgical Provider 11/02/21 09/04/22 Mariana Acosta PA-C [address] [address] Assigned Surgical Provider 09/05/22 12/09/23 Lucas Nuno MD [address] [address] Assigned Surgical Provider 12/10/23 01/07/24 Mariana Acosta PA-C [address] [address] Assigned Surgical Provider 01/08/24 03/08/24 Lucas Nuno MD [address] 495445 Assigned Surgical Provider 03/09/24 12/09/24 Mariana Acosta PA-C [address] [address] Assigned Surgical Provider 12/10/24 02/06/25 Purvi Jeong [facility] [address] [place], [place] 0[address] Pharmacist Pharmacist Studio Potter 01/03/25 Lucas Nuno MD [address] [address] Assigned Surgical Provider 02/07/25 Meghan Cox [place] [address] [place] [address] Pharmacist Pharmacist Studio Potter 03/20/25 documented as of this encounter
--- OUTSIDE RECORDS SUMMARY | 2025-08-08 00:35 | XMS_ITS | Encounter Summary ---
Author Organization [place] Address [facility] [place] [address] Care Team Providers Care Occupational Therapist Assistant Name Role Phone [facility] Primary Care Provider Leatha Wagner APRN [facility] Unavailable +[phone] Mariana Acosta PA-C Unavailable + [phone] Sarah Juares MD Primary Care Provider Unav ailable Lucas Nuno MD Unavailable +- Mariana Acosta-C Unavailable [phone] Lucas Nuno MD Unavailable + Mariana Acosta PA-C Unavailable +[phone] Purvi Jeong [facility] Unavailable [phone] Lucas Nuno MD Unavailable +- Meghan Cox [facility] Unavailable [phone] Jose Tran MD Primary Care Provider + [phone] Encounter Details Date Type Department Care Team (Late st Contact Info) Description 08/24/2022 [facility] [address] 4th [place] [address] Rita Gillespie, EMT Social History Tobacco Use Types Packs/Day Years Used Date Smoking Tobacco: Former Smokeless Tobacco: Never Alcohol Use Standard Drinks/Week Comments Not Currently 0 (1 standard drink = 0.6 oz pur e alcohol) rare [place] Depression Scale Answer Date Recorded [place] Depression Score 1 07/06/2021 Last EPDS Self Harm Result Not on file 07/06 Comments No Sex and Gender Information Value Date Recorded Sex Assigned at Female 06/03/2022 7:36 AM CDT 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 Gender Identity Female 06/03/2022 7:36 AM [...] documented as of this encounter Care Teams Occupational Therapist Assistant Relationship Specialty Start Date End Date [facility] [address] [place] [address] PCP - General 01/02/14 03/23/23 Sarah Juares MD [address] [place] [address] PCP - General Family Medicine 03/13/25 08/06/25 [place] [address] [place] [address] PCP - General Family Medicine 08/07/25 Leatha Wagner APRN RAW CHEESE WORKER [address] [place] [address] [phone] Assigned Surgical Provider 11/02/21 09/04/22 Mariana Acosta PA-C [address] [address] Assigned Surgical Provider 09/05/22 12/09/23 Lucas Nuno MD [facility] [address] [address] Assigned Surgical Provider 12/10/23 01/07/24 Mariana Acosta PA-C [address] [address] Assigned Surgical Provider 01/08/24 03/08/24 Lucas Nuno MD [address] [address] Assigned Surgical Provider 03/09/24 12/09/24 Mariana Acosta PA-C [address] [address] Assigned Surgical Provider 12/10/24 02/06/25 Purvi Jeong [facility] [address] [place] [address] Pharmacist Pharmacist Veterinary Practitioner 01/03/25 Lucas Nuno MD [address] [address] Assigned Surgical Provider 02/07/25 Meghan Cox [facility] [address] [place] [address] Pharmacist Pharmacist Veterinary Practitioner 03/20/25 documented as of this encounter
--- OUTSIDE RECORDS SUMMARY | 2025-08-08 00:35 | XMS_ITS | Encounter Summary ---
Author Organization [place] Address [address] [place] [address] Care Team Providers Care Print Washer Name Role Phone Sarah Juares MD Primary Care Provider Unav ailable Purvi Jeong [facility] Unavailable [phone] Lucas Nuno MD Unavailable [phone] Meghan Cox [facility] Unavailable [phone] Jose Tran MD Primary Care Provider [phone] Encounter Details Date Type Department Care Team (Late st Contact Info) Description 03/21/2025 MyC Medical Advice [facility] [address] 4th [place] [address] Anastasia Molina, RN Social History Tobacco Use Types Packs/Day Years Used Date Smoking Tobacco: Former Smokeless Tobacco: Never Alcohol Use Standard Drinks/Week Comments Not Currently 0 (1 standard drink = 0.6 oz pur e alcohol) rare PHQ-2 Answer Date Recorded PHQ-2 Score 0 02/22/2025 [place] Depression Scale Answer Date Recorded [place] Depression Score 1 07/06/2021 Last EPDS Self [...] CDT 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 Gender Identity Female 06/03/2022 7:36 AM CDT Sexual Orientation Straight 06/03/2022 7: 36 AM CDT documented as of this encounter Plan of Treatment Not on file documented as of this encounter Visit Diagnoses Not on filedocumented in this encounter Care Teams Print Washer Relationship Specialty Start Date End Date Sarah Juares MD PCP - General Family Medicine 03/13/25 08/06/25 [place] [address] [place] [address] PCP - General Family Medicine 08/07/25 Purvi Jeong RPH 9 [place], [place] [phone] Pharmacist Pharmacist Manual Plate Filler 01/03/25 Lucas Nuno MD [address] [place] [address] [id number] Assigned Surgical Provider 02/07/25 Meghan Cox RPH [address] [place] [address] [phone] Pharmacist Pharmacist Manual Plate Filler 03/20/25 documented as of this encounter
--- OUTSIDE RECORDS SUMMARY | 2025-08-08 00:35 | XMS_ITS | Encounter Summary ---
Author Organization [place] Address [address] [place] [address] Care Team Providers Care Hospital Nurse Name Role Phone Sarah Juares MD Primary Care Provider Unav ailable Purvi Jenog [facility] Unavailable [phone] Lucas Nuno MD Unavailable [phone] Meghan Cox [facility] Unavailable [phone] Jose Tran MD Primary Care Provider [phone] Encounter Details Date Type Department Care Team (Late st Contact Info) Description 04/12/2025 MyC Medical Advice [facility] [place] [address] [facility] [address] 4th [place] [address] Lucas Nuno MD 420 [facility] [address] [place] [address] Social History Tobacco Use Types Packs/Day Years Used Date Smoking Tobacco: Former Smokeless Tobacco: Never Alcohol Use Standard Drinks/Week Comments Not Currently 0 (1 standard drink = 0.6 oz pur e alcohol) rare PHQ-2 Answer Date Recorded PHQ-2 Score 0 02/22/2025 [place] Depression Scale Answer Date Recorded [place] Depression Score 1 07/06/2021 Last EPDS Self [...] in an abandoned building, in an overnight halfway, or couch-surfing.) Yes 03/21/2025 Are you worried [...] AM CDT 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 Gender Identity Female 06/03/2022 7:36 AM CDT Sexual Orientation Straight 06/03/2022 7: 36 AM CDT documented as of this encounter Plan of Treatment Not on file documented as of this encounter Visit Diagnoses Not on filedocumented in this encounter Care Teams Hospital Nurse Relationship Specialty Start Date End Date Sarah Juares MD PCP - General Family Medicine 03/13/25 08/06/25 [place] [address] [place] [address] PCP - General Family Medicine 08/07/25 Purvi Jeong RPH [address] [place] [phone] Pharmacist Pharmacist Metal Box Maker 01/03/25 Lucas Nuno MD [address] [place] [address] Assigned Surgical Provider 02/07/25 Meghan Cox RPH [address] [place] [address] Pharmacist Pharmacist Metal Box Maker 03/20/25 documented as of this encounter
--- OUTSIDE RECORDS SUMMARY | 2025-08-08 00:35 | XMS_ITS | Encounter Summary ---
Author Organization [place] Address [address] [place] [address] Care Team Providers Care Filter Assembler Name Role Phone Sarah Juares MD Primary Care Provider Unav ailable Purvi Jeong [facility] Unavailable [phone] Lucas Nuno MD Unavailable [phone] Meghan Cox [facility] Unavailable Jose Tran MD Primary Care Provider [phone] Encounter Details Date Type Department Care Team (Late st Contact Info) Description 03/20/2025 MyC Medical Advice [facility] [address] 4th [place] [address] Anastasia Molina, RN Social History Tobacco Use Types Packs/Day Years Used Date Smoking Tobacco: Former Smokeless Tobacco: Never Alcohol Use Standard Drinks/Week Comments Not Currently 0 (1 standard drink = 0.6 oz pur e alcohol) rare PHQ-2 Answer Date Recorded PHQ-2 Score 0 02/22/2025 [place] Depression Scale Answer Date Recorded [place] Depression Score 1 07/06/2021 Last EPDS Self [...] AM CDT 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 Gender Identity Female 06/03/2022 7:36 AM CDT Sexual Orientation Straight 06/03/2022 7: 36 AM CDT documented as of this encounter Plan of Treatment Not on file documented as of this encounter Visit Diagnoses Not on filedocumented in this encounter Care Teams Filter Assembler Relationship Specialty Start Date End Date Sarah Juares MD PCP - General Family Medicine 03/13/25 08/06/25 [place] [address] [place] [address] PCP - General Family Medicine 08/07/25 Purvi Jeong RPH 9 [place], [place] 027[address] Pharmacist Pharmacist Fabric Sourcer 01/03/25 Lucas Nuno MD [address] [place] [address] [phone] Assigned Surgical Provider 02/07/25 Meghan Cox RPH [address] [place] [address] 457645 Pharmacist Pharmacist Fabric Sourcer 03/20/25 documented as of this encounter
--- OUTSIDE RECORDS SUMMARY | 2025-08-08 00:35 | XMS_ITS | Encounter Summary ---
Author Organization [place] Address [address] [place] [address] Care Team Providers Care Chalk Molding Machine Operator Name Role Phone Sarah Juares MD Primary Care Provider Unav ailable Purvi Jeong [facility] Unavailable [phone] Lucas Nuno MD Unavailable [phone] Meghan Cox [facility] Unavailable [phone] Jose Tran MD Primary Care Provider [phone] Encounter Details Date Type Department Care Team (Late st Contact Info) Description 05/06/2025 MyC Medical Advice [facility] [place] [address]259 [facility] [address] 4th [place] [address] Mariana Acosta PA-C [address] [facility] [address] [place], [place] [address] Social History Tobacco Use Types Packs/Day Years Used Date Smoking Tobacco: Former Smokeless Tobacco: Never Alcohol Use Standard Drinks/Week Comments Not Currently 0 (1 standard drink = 0.6 oz pur e alcohol) rare PHQ-2 Answer Date Recorded PHQ-2 Score 0 02/22/2025 [place] Depression Scale Answer Date Recorded [place] Depression Score 1 07/06/2021 Last EPDS Self [...] in an abandoned building, in an overnight retirement, or couch-surfing.) Yes 03/21/2025 Are you worried [...] on filedocumented in this encounter Care Teams Chalk Molding Machine Operator Relationship Specialty Start Date End Date Sarah Juares MD PCP - General Family Medicine 03/13/25 08/06/25 [place] [address] [place] [address] PCP - General Family Medicine 08/07/25 Purvi Jeong RPH [address] [place] [address] Pharmacist Pharmacist Circus Supervisor 01/03/25 Lucas Nuno MD [address] [place] [address] Assigned Surgical Provider 02/07/25 Meghan Cox RPH 9 [place] [address] Pharmacist Pharmacist Circus Supervisor 03/20/25 documented as of this encounter
--- OUTSIDE RECORDS SUMMARY | 2025-08-08 00:35 | XMS_ITS | Encounter Summary ---
Author Organization [place] Address [address] [facility] [place] [address] Care Team Providers Care Salesperson Trailers [employer] Name Role Phone Mariana Acosta PA-C Unavailable + [phone] Sarah Juares MD Primary Care Provider Unav ailable Lucas Nuno MD Unavailable +- Mariana Acosta PA-C Unavailable [phone] Lucas Nuno MD Unavailable +- Mariana Acosta PA-C Unavailable [phone] Purvi Jeong [facility] Unavailable [phone] Lucas Nuno MD Unavailable + Meghan Cox [facility] Unavailable [phone] Jose Tran MD Primary Care Provider + [phone] Encounter Details Date Type Department Care Team (Late st Contact Info) Description 05/12/2023 MyC Medical Advice [facility] [facility] [place] [address] Christiano Hull Social History Tobacco Use Types Packs/Day Years Used Date Smoking Tobacco: Former Smokeless Tobacco: Never Alcohol Use Standard Drinks/Week Comments Not Currently 0 (1 standard drink = 0.6 oz pur e alcohol) rare PHQ-2 Answer Date Recorded PHQ-2 Score 0 05/12/2023 [place] Depression Scale Answer Date Recorded [place] Depression Score 1 07/06/2021 Last EPDS Self Harm Result Not on file 07/06 Comments No Sex and Gender Information Value Date Recorded Sex Assigned at Female 06/03/2022 7:36 AM CDT 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 Gender Identity Female 06/03/2022 7:36 AM [...] on filedocumented in this encounter Care Teams Salesperson Trailers [employer] Motor [employer] Relationship Specialty Start Date End Date Sarah Juares MD [address] [address] [address] PCP - General Family Medicine 03/13/25 08/06/25 [place] [address] [place] [address] PCP - General Family Medicine 08/07/25 Mariana Acosta PA-C [address] [address] Assigned Surgical Provider 09/05/22 12/09/23 Lucas Nuno MD [address] [phone] Assigned Surgical Provider 12/10/23 01/07/24 Mariana Acosta PA-C [address] 233615 Assigned Surgical Provider 01/08/24 03/08/24 Lucas Nuno MD [address] [place] [address] Assigned Surgical Provider 03/09/24 12/09/24 Mariana Acosta PA-C [address] [place] [address]61 Assigned Surgical Provider 12/10/24 02/06/25 Purvi Jeong [facility] [address] [place] [address] [phone] Pharmacist Pharmacist Configuration Management Advisor 01/03/25 Lucas Nuno MD [address] [place] [address] Assigned Surgical Provider 02/07/25 Meghan Cox [facility] [address] [place] [address] Pharmacist Pharmacist Configuration Management Advisor 03/20/25 documented as of this encounter
--- OUTSIDE RECORDS SUMMARY | 2025-08-08 00:35 | XMS_ITS | Encounter Summary ---
Author Organization [place] Address [address] [place] [address] Care Team Providers Care Gm/Svp Global Publisher Business Name Role Phone Sarah Juares MD Primary Care Provider Unav ailable Purvi Jeong [facility] Unavailable [phone] Lucas Nuno MD Unavailable [phone] Meghan Cox [facility] Unavailable Jose Tran MD Primary Care Provider [phone] Encounter Details Date Type Department Care Team (Late st Contact Info) Description 03/23/2025 MyC Medical Advice [facility] [place] 017469 [facility] [address] 4th [place] [address] Lucas Nuno MD 420 [facility] [address] [place] [address] Social History Tobacco Use Types Packs/Day Years Used Date Smoking Tobacco: Former Smokeless Tobacco: Never Alcohol Use Standard Drinks/Week Comments Not Currently 0 (1 standard drink = 0.6 oz pur e alcohol) rare PHQ-2 Answer Date Recorded PHQ-2 Score 0 02/22/2025 [place] Depression Scale Answer Date Recorded [place] Depression Score 1 07/06/2021 Last EPDS Self [...] AM CDT 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 Gender Identity Female 06/03/2022 7:36 AM CDT Sexual Orientation Straight 06/03/2022 7: 36 AM CDT documented as of this encounter Plan of Treatment Not on file documented as of this encounter Visit Diagnoses Not on filedocumented in this encounter Care Teams Gm/Svp Global Publisher Business Relationship Specialty Start Date End Date Sarah Juares MD PCP - General Family Medicine 03/13/25 08/06/25 [place] [address] [place] [address] PCP - General Family Medicine 08/07/25 Purvi Jeong RPH [address] [place] [address] Pharmacist Pharmacist Light Industrial Supervisor 01/03/25 Lucas Nuno MD [address] [place] [address] Assigned Surgical Provider 02/07/25 Meghan Cox RPH [address] [place] [address] Pharmacist Pharmacist Light Industrial Supervisor 03/20/25 documented as of this encounter
--- OUTSIDE RECORDS SUMMARY | 2025-08-08 00:35 | XMS_ITS | Clinical Summary ---
Author Organization [employer] Address [address] [facility] [place] [address] Care Team Providers Care Carton Stenciler Name Role Phone Provider, No Primary Primary [...] on file Legal Sex Female 8:59 PM PLIER WORKER Gender Identity Not on file Sexual Orientation Not on file Last Filed Vital Signs Vital Sign Reading Time Taken Comments Blood Pressure 123/87 11/14/2023 9:14 AM PLIER WORKER Pulse 90 11/14/2023 9:14 AM PLIER WORKER Temperature 36.9 C (98.5 F) 11/14/2023 9:14 AM PLIER WORKER Respiratory Rate - - Oxygen Saturation 98% 11/14/2023 9:14 AM PLIER WORKER Inhaled Oxygen Concentration - - Weight 122.9 [...] 08/08/2010 08/12/2010 7:4 4 AM CDT Narrative [facility] - 08/06/2011 1:34 AM CDT RUN DATE: 08/06/11 [facility] PAGE 1 RUN TIME: [address] [place] [address] RUN USER: Open CS CYTOLOGY REPORT ----- ------- PATIENT: KALEB ALEMAN LOC: XSBC U #: [id number] : 89 AGE/SX: 15/F ROOM: RE08/08/[address]: Tom MASON,Angel Kane STATUS: REG REF BED: DIS: ----- ------- SPEC #: [id number] RECD: 08/12/10 STATUS: RONI SAMUELS #: [id number] MELANIE: 08/08/10- SUBM DR: Angel Santos MD ENTERED: 08/12/10 SP TYPE: THINPREP OTHR DR: ORDERED: [id number], THINPREP PAP PAP CLINICAL DATA LMP: 07-21-10 : NO HORMONE THERAPY: NO PREVIOUS SMEAR: NO PT. PHONE #: [phone] PT. ADDRESS: [address] [address], [place], [place] CYTOLOGY RESULTS SPECIMEN ADEQUACY: SATISFACTORY FOR EVALUATION. RESULTS: NEGATIVE FOR INTRAEPITHELIAL LESION OR MALIGNANCY. Signed Electronically Signed JAKE TERAN 08/12/10 ----- ------- END OF REPORT Procedure Note 08/08/2011 RUN DATE: 08/06/11 [facility] RUN TIME: [address] [place] [address] RUN USER: Open CS CYTOLOGY REPORT ----- ------- PATIENT: KALEB ALEMAN LOC: XSBCU #: [id number] : 89 AGE/SX: 15/F ROOM:RE08/08/[address]: Angel Santos MD STATUS: REG REF BED:DIS: ----- ------- SPEC #: [id number] RECD: 08/12/10 STATUS: MATT #: [id number] MELANIE: 08/08/10- SUBM DR: Pop Santos MD. ENTERED: 08/12/10 SP TYPE: THINPREP OTHR DR: ORDERED: [id number], THINPREP PAP PAP CLINICAL DATA LMP: 07-21-10 : NO HORMONE THERAPY: NO PREVIOUS SMEAR: NO PT. PHONE #: [phone] PT. ADDRESS: [address], [place] CYTOLOGY RESULTS SPECIMEN ADEQUACY: SATISFACTORY FOR EVALUATION. RESULTS: NEGATIVE FOR INTRAEPITHELIAL LESION OR MALIGNANCY. Signed Electronically Signed JAKE TERAN 08/12/10 ----- ------- END OF REPORT us Angel Santos MD FILM MAKER CYTOLOGY Final Resul t [address] [address] from Last 3 Months or Most Recently Relevant to Health Maintenance Insurance [facility] Care Teams Carton Stenciler Relationship Specialty Start Date End Date Provider, No Primary . [place]I [address] PCP - General 01/31/16 Additional Source Comments PLEASE NOTE: Replies to this message will not be received.[facility]
--- OUTSIDE RECORDS SUMMARY | 2025-08-08 00:35 | XMS_ITS | Encounter Summary ---
Author Organization [place] Address [facility] [place] [address] Care Team Providers Care Squirt Machine Operator Name Role Phone [facility] [place] Primary Care Provider Leatha Wagner APRN [facility] Unavailable [phone] Mariana Acosta PA-C Unavailable + [phone] Sarah Juares MD Primary Care Provider Unav ailable Lucas Nuno MD Unavailable +- Mariana Acosta-C Unavailable [phone] Lucas Nuno MD Unavailable + Mariana Acosta PA-C Unavailable [phone] Purvi Jeong [facility] Unavailable [phone] Lucas Nuno MD Unavailable +- Meghan Cox [facility] Unavailable [phone] Jose Tran MD Primary Care Provider + [phone] Encounter Details Date Type Department Care Team (Late st Contact Info) Description 08/27/2022 [facility] [address] 4th [place] [address] Mariana Acosta PA-C [address] [address] Social History Tobacco Use Types Packs/Day Years Used Date Smoking Tobacco: Former Smokeless Tobacco: Never Alcohol Use Standard Drinks/Week Comments Not Currently 0 (1 standard drink = 0.6 oz pur e alcohol) rare [place] Depression Scale Answer Date Recorded [place] Depression Score 1 07/06/2021 Last EPDS Self Harm Result Not on file 07/06 Comments No Sex and Gender Information Value Date Recorded Sex Assigned at Female 06/03/2022 7:36 AM CDT 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 Gender Identity Female 06/03/2022 7:36 AM CDT [...] documented as of this encounter Care Teams Squirt Machine Operator Relationship Specialty Start Date End Date [facility] [place] [address] [place] [address] PCP - General 01/02/14 03/23/23 Sarah Juares MD [address] [address] PCP - General Family Medicine 03/13/25 08/06/25 [place] [address] [place] [address] PCP - General Family Medicine 08/07/25 Leatha Wagner APRN BAKER HELPER [address] [place] [address] Assigned Surgical Provider 11/02/21 09/04/22 Mariana Acosta PA-C [address] [address] Assigned Surgical Provider 09/05/22 12/09/23 Lucas Nuno MD [address] [address] Assigned Surgical Provider 12/10/23 01/07/24 Mariana Acosta PA-C [address] [address] Assigned Surgical Provider 01/08/24 03/08/24 Lucas Nuno MD [address] [address] Assigned Surgical Provider 03/09/24 12/09/24 Mariana Acosta PA-C [address] [address] Assigned Surgical Provider 12/10/24 02/06/25 Purvi Jeong [facility] [address] [place] [address] Pharmacist Pharmacist Corporate Officer 01/03/25 Lucas Nuno MD [address] [address] Assigned Surgical Provider 02/07/25 Meghan Cox [facility] [address] [place] [address] [phone] Pharmacist Pharmacist Corporate Officer 03/20/25 documented as of this encounter
[2025-08-08 00:39] LABS: Hematocrit* 36.8 % (33.0-51.0); Hemoglobin* 12.4 gm/dL (12.0-16.0); Immature Granulocytes Abs Auto 0.04 K/uL (0.00-0.30); Immature Granulocytes Pct Auto 0.6 %; Lymphocytes Absolute Auto 2.27 K/uL (0.90-2.90); Mean Corpuscular HGB Conc 34 gm/dL (32-36); Mean Corpuscular Hemoglobin 35 pg (26-34); Mean Corpuscular Volume 103 fL (80-100); RDW Coefficient of Variation % 14.3 % (11.5-15.5); Red Blood Count* 3.57 m/uL (4.00-5.20); White Blood Count* 7.03 K/uL (4.50-11.00)
[2025-08-08 00:40] LABS: Slide Review Reflex No
[2025-08-08 00:42] LABS: INR 1.01 (0.91-1.10); Prothrombin Time 14.1 Seconds
[2025-08-08 00:55] LABS: Albumin* 4.0 g/dL (3.3-5.0); Chloride* 102 mmol/L (96-114); Potassium* 3.2 mmol/L (3.6-5.1); Sodium* 139 mmol/L (135-149)
[2025-08-08 00:56] LABS: HCG Qualitative Serum* Negative (Negative)
[2025-08-08 00:57] LABS: Alanine Aminotransferase* 24 U/L (4-35); Aspartate Amino Transferase* 33 U/L (12-35); Blood Urea Nitrogen* 3 mg/dL (5-24); Creatinine* 0.8 mg/dL (0.5-1.5); Est. Creatinine Clearance* 106.48; Estimated Glomerular Filt Rate 101 ml/min
[2025-08-08 00:58] LABS: Alkaline Phosphatase* 56 U/L (40-150); Anion Gap 14 mEq/L (7-15); Bilirubin Total* 1.1 mg/dL (0.1-1.5); Calcium* 8.9 mg/dL (8.4-10.6); Carbon Dioxide* 23 mmol/L (20-32); Glucose* 149 mg/dL (60-115); Total Protein* 6.7 g/dL (6.0-8.3)
[2025-08-08 00:59] LABS: Ethanol* 0.14 % (0.01-0.03)
[2025-08-08 01:02] LABS: Acetaminophen* < 10.0 ug/mL (10.0-30.0); Salicylate* < 1.0 mg/dL (1.0-10)
== END 2025-08-08 03:26 | disposition home or self-care (01) ==
PROVIDERS: Emergency Provider Emergency Medicine
DX: R42 Dizziness and giddiness (principal); T50.901A Poisoning by unspecified drugs, medicaments and biological substances, accidental (unintentional), initial encounter; I95.9 Hypotension, unspecified
CPT/HCPCS: 36415; 80053; 80143; 80179; 82077; 84703; 85025; 85610; 93005; 96374; 96375; 99285; 99291; J2312; J2405; J7030